=== PATIENT | female | born 1945 | race Caucasian/White ===

== ENCOUNTER 2016-09-03 22:36 | Emergency (ER) | payer MEDICARE, BC ==
[~2016-09-03 22:36] MED LIST: *MAMMOGRAM; /ADVA50050; /ADVA50050 IN; /PANT40TA; ACCUPRIL20 PO; ACCUPRIL40 PO; ACET65TA OR; ACET65TA PO; ADVAIR500 INHALATION; ALBOTERNEB INHALATION; ALBU83IN IN; ALBUTEROL INHALER INH; AMBI10TA; AMBIEN10 PO; AMIT100TA PO; AMIT10TA2 OR; AMIT50TA PO; AMIT50TA2 PO; AMITRIP50 PO; AMITRIP75 PO; AMO500 PO; ASPI1TAB PO; ASPI81TA63 PO; ATACAND16 PO; AZIT250T3 PO; BACTRIMDS PO; CALCCHW12 OR; CAND16TA; CATAPRESS PO; CIPRO500 PO; CLOTR1CR TOP; COLA100C PO; DAPS10TA OR; DILANT PO; DOCU10CA PO; DULO1CAP2 PO; DURAGESIC; EQ S PO; FENT100D25 TD; FENT10PA TD; FENT75PA TD; FERR325T; FERR325T OR; FLAGYL500 PO; FLUC10TA PO; HCTZ25 PO; HYDR25TA6 PO; K-DUR10 PO; KDUR20 PO; KENALOG INJ; KLOR10TA OR; KLORCON20 PO; LASIX20 PO; LASIX40 PO; LEVO500T32 PO; LEVO50TA5 PO; LIDO1PAD TOP; LINE60TAB PO; LISI-538 PO; LISI40TA OR; LISI40TAB PO; LUNE2TAB OR; LYRI100C10 PO; LYRI75CA PO; MAXALT; META28.35 PO; METF500T PO; METF500T4 PO; METH10TA2 PO; MILKSUS OR; MIRA3350 PO; MUCINEX PO; MULTCAP PO; NEUR800T PO; NEURONTIN4 PO; NITRODUR TOPICAL; OMEP20TA PO; OMEP40CA2 PO; OXYC15TA50 PO; OXYC1TAB23 PO; OYST500T58 OR; POTA20TA; PRAV20TA2 PO; PRED10TA2; PRED20TA OR; PREDNISO20 PO; PREMAR1.25 PO; PREVACID15 PO; PREVACID30 PO; PROTONIX40 PO; PROTPAK PO; PROVENTILI PO; PROVIGIL; PULMICORT PO; RANI300T PO; REGL10TA6 PO; ROPI0.5T PO; ROPI1TAB PO; SAVELLA PO; SING10TA31 OR; SKEL-29 PO; SKEL800T5 PO; SKELAXIN8 PO; SYNT25TA PO; TOPR25TA; TUSSSUS5 OR; VICODIN-ES PO; VICODIN10 PO; VIT D 2000 PO; VITA-113 SL; VITA10002 PO; VITA500T OR; VITACHTA PO; VITMTA PO; ZANAFLEX4 PO; ZANT300T PO; ZOFR20TA PO; [UNRECOGNIZED DRUG - CODE]; [UNRECOGNIZED DRUG - CODE] PO; [UNRECOGNIZED DRUG - CODE] PO; [UNRECOGNIZED DRUG - CODE] TOP; [UNRECOGNIZED DRUG - OTHER]; [UNRECOGNIZED DRUG - OTHER] PO; [UNRECOGNIZED DRUG - REMARK]; [UNRECOGNIZED DRUG - SUPPLY]; [UNRECOGNIZED DRUG - SUPPLY] -; [UNRECOGNIZED DRUG - SUPPLY] TOP; [UNRECOGNIZED DRUG - SUPPLY] TOPICAL
[2016-09-04] MEDS ORDERED: cefTRIAXone SOD 1 GM VIAL (J0696) As Ordered ONE (00:03)
[2016-09-04] MEDS ORDERED: HYDROmorphone HCL 1 MG/ML SYRINGE (J1170) As Ordered ONE ×2 (00:03→00:53)
[2016-09-04 00:04] LABS: BASO # 0.1 K/mm3 (0.0-0.2); BASO % 0.9 % (0.0-1.0); EOS # 0.2 K/mm3 (0.0-0.50); LARGE UNSTAINED CELL # 0.1 K/mm3 (0.0-0.4); LARGE UNSTAINED CELL % 1.6 % (0.0-4.0); LYMPH # 1.9 K/mm3 (1.5-4.5); LYMPH % 20.9 % (24.0-44.0); MEAN CORPUSCULAR HEMOGLOBIN 26.3 pg (27.0-33.0); MEAN CORPUSCULAR HGB CONC 32.8 g/dl (32.0-36.5); MEAN CORPUSCULAR VOLUME 80.2 fl (80.0-96.0); MONO # 0.4 K/mm3 (0.0-0.8); MONO % 4.8 % (0.0-5.0); NEUTROPHILS # 5.8 K/mm3 (1.8-7.7); NEUTROPHILS % 68.8 % (36.0-66.0); PLATELET COUNT, AUTOMATED 205 k/mm3 (150-450); RED CELL DISTRIBUTION WIDTH 16.3 % (11.5-14.5); WHITE BLOOD COUNT 8.4 K/mm3 (4.0-10.0)
[2016-09-04 00:26] LABS: ALBUMIN 3.2 GM/DL (3.2-5.2); ALBUMIN/GLOBULIN RATIO 0.76 (1.00-1.93); ALKALINE PHOSPHATASE 101 U/L (45-117); ALT/SGPT 15 U/L (12-78); AMYLASE 53 U/L (25-115); ANION GAP 8 MEQ/L (8-16); AST/SGOT 16 U/L (15-37); BILIRUBIN,DIRECT < 0.1 MG/DL (0.0-0.2); BILIRUBIN,TOTAL 0.3 MG/DL (0.2-1.0); BLOOD UREA NITROGEN 12 MG/DL (7-18); CALCIUM LEVEL 8.6 MG/DL (8.8-10.2); CARBON DIOXIDE LEVEL 27 MEQ/L (21-32); CHLORIDE LEVEL 105 MEQ/L (98-107); GLOMERULAR FILTRATION RATE > 60.0 (>39); GLUCOSE, FASTING 100 MG/DL (83-110); SODIUM LEVEL 140 MEQ/L (136-145); TOTAL PROTEIN 7.4 GM/DL (6.4-8.2)
[2016-09-04] MEDS ORDERED: CIPROFLOXACIN/D5W 400 MG/200 ML BAG (J0744) As Ordered ONE (00:45)
[2016-09-04] MEDS ORDERED: ISOVUE-370 76% 100ML VIAL (Q9967) As Ordered ONE (00:49)
--- NOTE | 2016-09-04 02:20 | REPUSA ---
CLINICAL HISTORY: Abdominal pain. TECHNIQUE: Multiple axial, sagittal and coronal CT images were obtained through the abdomen and pelvi s after administration of intravenous contrast material. COMMENTS: The liver is mildly enlarged without mass or defect. There is no intra or extrahepatic biliary ductal dilatation. The spleen is normal. The gallbladder is surgically absent. The pancreas is of normal co ntour and attenuation characteristics. There is no evidence of adrenal mass. Mild atrophy of the kidneys. Unremarkable ileal conduit. The kidneys are normal in size, shape and co nfiguration. There is no evidence of renal or ureteral mass. No renal or ureteral calculi are identif ied. There is no hydroureter or hydronephrosis. No evidence for appendicitis. There is no bowel wall thickening. No evidence for small or large mani l obstruction. There is no evidence of abdominal ascites or lymphadenopathy. Diffuse thickening of the underdistended bladder. There is no pelvic ascites or lymphadenopathy. Unre markable left lower quadrant colostomy. Moderate large bowel fecal stasis. Images of the lung bases show no evidence of pleural or parenchymal mass. There are no pleural effusi ons. The bony structures are free of lytic or blastic lesions. Multilevel degenerative changes are seen in volving the thoracolumbar spine. Scattered calcifications are seen involving the aorta and major bran ches compatible with atherosclerosis. IMPRESSION: Diffuse thickening of the underdistended bladder. Unremarkable ileal conduit. Mild chronic bilateral renal atrophy. Large bowel fecal stasis. No changes noted since the prior exam on 04/06/2016. Thank you for your kind referral of this patient.
--- NOTE | 2016-09-04 03:36 | EDDOCDS ---
Nurse's Notes [facility] Name: Uzma Miller Age: 71 yrs Sex: Female : 1945 Arrival Date: 09/03/2016 Time: 22:36 Bed 14 Private MD: Nay Vegas., DO Diagnosis: Urinary tract infection, site not specified Presentation: 09/03 22:44 Presenting complaint: Patient states: Abdominal pain and low back pain with hematuria. jo3 Has tyra nephrostomy tubes and a urostomy. Adult Sepsis Screening: The patient does not have new or worsening altered mentation. Patient's respiratory rate is less than 22. Systolic blood pressure is greater than 100. Patient has a qSOFA score of 0- Negative Sepsis Screen. Suicide/Homicide risk assessment- the patient denies having any suicidal and/or homicidal ideations and does not present with any other emotional, behavioral or mental health complaints. Status: Patient is not a client service executive or dependent. Transition of care: patient was not received from another setting of care. 22:44 Acuity: NAREN Level 3 jo3 22:44 Method Of Arrival: Walkin/Carried/Asstd jo3 Triage Assessment: 22:49 General: Appears in no apparent distress, Behavior is appropriate for age, cooperative. jo3 Pain: Pain currently is 7 out of 10 on a pain scale. Neurological: Level of Consciousness is awake, alert, Oriented to person, place, time. Respiratory: Airway is patent Respiratory effort is even, unlabored. Derm: Skin is pink, warm & dry. Historical: - Allergies: Ambien (sleep walk); Clonidine (pass out); Codeine Sulfate (Anaphylaxis); Flu Shot; - Home Meds: 1. amitriptyline 100 mg Oral tab once daily HS 2. aspirin 81 mg Oral tab once daily 3. Cymbalta 30 mg Oral cpDR nightly 4. Lamisil 250 mg oral tab 1 tab once daily 5. lisinopril 20 mg Oral tab 1 tab once daily 6. Lyrica 100 mg Oral 3 times per day 7. metformin 500 mg Oral tab 1 tab 2 times per day 8. methadone 10 mg Oral tab 1 tab three times a day 9. oxycodone 10 mg Oral tab 1 tab every 4 hours 10. pravastatin 20 mg oral tab 1 tab once daily 11. ranitidine HCl 300 mg Oral tab 2 times per day 12. Requip 1 mg Oral tab 1 tab daily 13. Skelaxin 800 mg Oral tab 3 times per day 14. Stool Softener 100 mg oral tab 1 tab once daily as needed 15. Synthroid 50 mcg Oral tab 1 tab once daily 16. Vitamin B-12 1,000 mcg Oral tab daily 17. Women's Daily Multivitamin oral 1 tab daily - PMHx: Asthma; Depression; Hernia; Gastric Reflux; Diverticulitis; Migraines; Fibromyalgia; Diabetes - NIDDM: controlled; bowel obstruction; Degenerative disc disease; Carpal Tunnel Syndrome; Chronic Low Back Pain; neurogenic bowel; neurogenic bladder; - PSHx: Appendectomy; Cholecystectomy; Hysterectomy; Ovarian cysts removed; Colostomy and urostomy; Multiple back surgeries; - Social history: Smoking status: Patient states was never smoker of tobacco. No barriers to communication noted, The patient speaks fluent [place]serr[place], Speaks appropriately for age. - Family history: Not pertinent. - : The pt / caregiver states he / she is not on anticoagulants. Home medication list is obtained from the patient. - Exposure Risk Screening:: None identified. Screenin:38 Infection Control. dd6 09/04 00:09 Screening information is obtained from the patient. Fall risk: No risks identified. tm5 Assistance ADL's: requires no assistance with activities of daily living. Abuse/DV Screen: The patient / caregiver reports he/she is: not in a situation that causes fear, pain or injury. Nutritional screening: No deficits noted. Advance Directives: There is no active DNR order. home support is adequate. Assessment: 00:15 General: Appears in no apparent distress, Behavior is appropriate for age, cooperative. tm5 Pain: Location: back and right lower quadrant Pain currently is 8 out of 10 on a pain scale. Quality of pain is described as burning. Neurological: No deficits noted. Respiratory: No deficits noted. Airway is patent Respiratory effort is even, unlabored, Respiratory pattern is regular, symmetrical, Breath sounds are clear bilaterally. GI: Abdomen is non- distended Bowel sounds present X 4 quads. : pt with Nephrostomy to right lower quad which has light blood tinged urine in the bag, per pt the urine color is "almost" the normal color now Reports. Derm: Skin is pink, warm & dry. normal. 00:57 Reassessment: Patient appears in no apparent distress at this time. Patient states tm5 symptoms have not improved. pt still complains of back spasms & RLQ abdominal pain . 01:27 Reassessment: Patient appears in no apparent distress at this time. Patient states tm5 feeling better. Patient states symptoms have improved. Pain: Location: right lower quadrant Pain currently is 4 out of 10 on a pain scale. Quality of pain is described as burning. 01:41 General: apple juice provided to pt per MD's okay. tm5 02:50 Reassessment: Patient appears in no apparent distress at this time. Patient states tm5 feeling better. Patient states symptoms have improved. 03:33 Reassessment: Patient appears in no apparent distress at this time. Patient states tm5 feeling better. Patient states symptoms have improved. Vital Signs: 09/03 22:37 BP 184 / 76; Pulse 75; Resp 18; Temp 96.5(O); Pulse Ox 100% on R/A; Weight 81.65 kg dd6 (R); Height 5 ft. 3 in. (160.02 cm) (R); 09/04 00:08 BP 136 / 58 (auto/); tm5 00:09 Pulse 56 MON; Resp 18 S; Pulse Ox 97% on R/A; tm5 00:23 BP 135 / 62 (auto/); tm5 00:23 Pulse 56 MON; Pulse Ox 95% ; tm5 00:38 BP 143 / 65 (auto/); tm5 00:38 Pulse 54 MON; Pulse Ox 93% ; tm5 00:53 BP 153 / 67 (auto/); tm5 00:53 Pulse 54 MON; Resp 20 S; Pulse Ox 95% on R/A; tm5 01:08 BP 152 / 68 (auto/); tm5 01:08 Pulse 56 MON; Pulse Ox 96% ; tm5 01:23 BP 162 / 67 (auto/); tm5 01:23 Pulse 54 MON; Resp 18 S; Pulse Ox 95% on R/A; tm5 01:53 BP 136 / 61 (auto/); tm5 01:56 Pulse 62 MON; Pulse Ox 96% ; tm5 02:08 BP 176 / 71 (auto/); tm5 02:08 Pulse 62 MON; Pulse Ox 96% ; tm5 02:23 BP 153 / 68 (auto/); tm5 02:23 Pulse 60 MON; Resp 16 S; Pulse Ox 96% on R/A; Pain 4/10; tm5 02:53 BP 158 / 63 (auto/); tm5 02:53 Pulse 58 MON; Pulse Ox 96% ; tm5 03:08 BP 158 / 68 (auto/); tm5 03:08 Pulse 56 MON; Resp 16 S; Temp 97.8(O); Pulse Ox 94% on R/A; Pain 2/10; tm5 09/03 22:37 Body Mass Index 31.89 (81.65 kg, 160.02 cm) dd6 Vitals: 09/03 22:37 Log In Time: September 03, 2016 at 22:35. dd6 ED Course: 22:37 Patient visited by Nic Swan PCA. dd6 22:37 Nay Vegas. is Private Physician. dd6 22:37 Patient moved to Waiting dd6 22:39 Patient moved to Pre RCE dd6 22:46 Triage Initiated jo3 22:50 Patient visited by Heena Anthony RN. jo3 22:51 Patient moved to 14 jo3 23:13 Basil Colin DO is Attending Physician. cs11 23:13 Patient visited by Basil Colin DO. cs11 09/04 00:02 BLOOD CULTURES Sent. tm5 00:02 Urine Culture Sent. tm5 00:02 Urinalysis Sent. tm5 00:02 Lipase Sent. tm5 00:02 Amylase Sent. tm5 00:02 Liver Profile Sent. tm5 00:02 MED Profile Sent. tm5 00:02 CBC with Diff Sent. tm5 00:02 Lactic Acid (Jain tube on ice) Sent. tm5 00:02 -Blood Culture Sent. tm5 00:04 Lauren Regalado,RN is Primary Nurse. tm5 00:09 The patient / caregiver is instructed regarding the plan of care and ED course. Pulse tm5 ox on. NIBP on. 00:09 Inserted saline lock: 20 gauge in right forearm and blood collected. The patient tm5 tolerated the procedure well. Labs/Blood culture drawn Urine collected. Nephrostomy bag Urine specimen sent to lab. 00:41 [facility] Payment Agreement was scanned into [employer] and attached to record. pm4 00:57 Patient visited by Lauren Regalado,GENNA. tm5 01:27 Patient visited by Lauren Regalado RN. tm5 01:[address] tm5 01:41 Patient visited by Lauren Regalado RN. tm5 01:[address]. tm5 02:27 Patient visited by Lauren Regalado RN. tm5 02:50 Patient visited by Lauren Regalado RN. tm5 02:56 CT ABD & PELVIS: IV Contrast Only Returned. EDMS 03:08 Discontinued lock intact, bleeding controlled, pressure dressing applied, No tm5 redness/swelling at site. No procedures done that require assistance. 03:20 Nay Vegas. is Referral Physician. cs11 03:23 Patient visited by Lauren Regalado RN. tm5 03:33 Patient visited by Lauren Regalado RN. tm5 Administered Medications: 00:14 Drug: Dilaudid - HYDROmorphone 1 mg [hydromorphone 1 mg/mL injection syringe (1 mL)] tm5 Route: IVP; Site: right forearm; 00:54 Follow up: Response: No Adverse Reaction; No significant change. tm5 00:14 Drug: cefTRIAXone 1 grams [ceftriaxone 250 mg solution for injection] Route: IVPB; tm5 Infused Over: 30 mins; Site: right forearm; 00:53 Follow up: IV Status: Completed infusion; IV Intake: 50ml tm5 00:53 Follow up: Response: No Adverse Reaction tm5 00:53 Drug: Ciprofloxacin 400 mg [ciprofloxacin 400 mg/200 mL in 5 % dextrose intravenous tm5 piggyback] Route: IVPB; Rate: 200 mL/hr; Infused Over: 60 mins; Site: right forearm; 02:27 Follow up: IV Status: Completed infusion; IV Intake: 200ml tm5 00:54 Drug: NS 0.9% 1000 ml [sodium chloride 0.9 % intravenous solution] Route: IV; Rate: tm5 bolus; Site: right forearm; 02:27 Follow up: IV Status: Completed infusion; IV Intake: 1000ml tm5 00:59 Drug: Dilaudid - HYDROmorphone 1 mg [hydromorphone 1 mg/mL injection syringe (1 mL)] tm5 Route: IVP; Site: right forearm; 01:28 Follow up: Response: No Adverse Reaction; Pain is decreased tm5 Intake: 00:53 IV: 50.00ml; Total: 50.00ml. tm5 02:27 IV: 1000.00ml; Total: 1050.00ml. tm5 02:27 IV: 200.00ml; Total: 1250.00ml. tm5 Order Results: Lab Order: Lactic Acid (Jain tube on ice); SPEC'M 09/03/16 23:55 Test: LACTIC ACID LEVEL, LACTATE; Value: 1.3; Range: 0.4-2.0; Units: MMOL/L; Status: F Lab Order: CBC with Diff; SPEC'M 09/03/16 23:55 Test: WHITE BLOOD COUNT; Value: 8.4; Range: 4.0-10.0; Units: K/mm3; Status: F Test: RED BLOOD COUNT; Value: 4.16; Range: 4.00-5.40; Units: M/mm3; Status: F Test: HEMOGLOBIN; Value: 11.0; Range: 12.0-16.0; Abnormal: Below low normal; Units: g/dl; Status: F Test: HEMATOCRIT; Value: 33.4; Range: 36.0-47.0; Abnormal: Below low normal; Units: %; Status: F Test: MEAN CORPUSCULAR VOLUME; Value: 80.2; Range: 80.0-96.0; Units: fl; Status: F Test: MEAN CORPUSCULAR HEMOGLOBIN; Value: 26.3; Range: 27.0-33.0; Abnormal: Below low normal; Units: pg; Status: F Test: MEAN CORPUSCULAR HGB CONC; Value: 32.8; Range: 32.0-36.5; Units: g/dl; Status: F Test: RED CELL DISTRIBUTION WIDTH; Value: 16.3; Range: 11.5-14.5; Abnormal: Above high normal; Units: %; Status: F Test: PLATELET COUNT, AUTOMATED; Value: 205; Range: 150-450; Units: k/mm3; Status: F Test: NEUTROPHILS %; Value: 68.8; Range: 36.0-66.0; Abnormal: Above high normal; Units: %; Status: F Test: LYMPH %; Value: 20.9; Range: 24.0-44.0; Abnormal: Below low normal; Units: %; Status: F Test: MONO %; Value: 4.8; Range: 0.0-5.0; Units: %; Status: F Test: EOS %; Value: 3.0; Range: 0.0-3.0; Units: %; Status: F Test: BASO %; Value: 0.9; Range: 0.0-1.0; Units: %; Status: F Test: LARGE UNSTAINED CELL %; Value: 1.6; Range: 0.0-4.0; Units: %; Status: F Test: NEUTROPHILS #; Value: 5.8; Range: 1.8-7.7; Units: K/mm3; Status: F Test: LYMPH #; Value: 1.9; Range: 1.5-4.5; Units: K/mm3; Status: F Test: MONO #; Value: 0.4; Range: 0.0-0.8; Units: K/mm3; Status: F Test: EOS #; Value: 0.2; Range: 0.0-0.50; Units: K/mm3; Status: F Test: BASO #; Value: 0.1; Range: 0.0-0.2; Units: K/mm3; Status: F Test: LARGE UNSTAINED CELL #; Value: 0.1; Range: 0.0-0.4; Units: K/mm3; Status: F Lab Order: MED Profile; SPEC'M 09/03/16 23:55 Test: GLUCOSE, FASTING; Value: 100; Range: 83-110; Units: MG/DL; Status: F Test: BLOOD UREA NITROGEN; Value: 12; Range: 7-18; Units: MG/DL; Status: F Test: CREATININE FOR GFR; Value: 0.90; Range: 0.55-1.02; Units: MG/DL; Status: F Test: GLOMERULAR FILTRATION RATE; Value: > 60.0; Range: >39; Status: F Test: SODIUM LEVEL; Value: 140; Range: 136-145; Units: MEQ/L; Status: F Test: POTASSIUM SERUM; Value: 4.0; Range: 3.5-5.1; Units: MEQ/L; Status: F Test: CHLORIDE LEVEL; Value: 105; Range: 98-107; Units: MEQ/L; Status: F Test: CARBON DIOXIDE LEVEL; Value: 27; Range: 21-32; Units: MEQ/L; Status: F Test: ANION GAP; Value: 8; Range: 8-16; Units: MEQ/L; Status: F Test: CALCIUM LEVEL; Value: 8.6; Range: 8.8-10.2; Abnormal: Below low normal; Units: MG/DL; Status: F Test Note: ; Units are mL/min/1.73 m2 Chronic Kidney Disease Staging per NKF: Stage I & II GFR >=60 Normal to Mildly Decreased Stage III GFR 30-59 Moderately Decreased Stage IV GFR 15-29 Severely Decreased Stage V GFR <15 Very Little GFR Left ESRD GFR <15 on SOFTWARE DEVELOPMENT COORDINATOR Lab Order: Liver Profile; 09/03/16:55 Test: AST/SGOT; Value: 16; Range: 15-37; Units: U/L; Status: F Test: ALT/SGPT; Value: 15; Range: 12-78; Units: U/L; Status: F Test: ALKALINE PHOSPHATASE; Value: 101; Range: 45-117; Units: U/L; Status: F Test: BILIRUBIN,TOTAL; Value: 0.3; Range: 0.2-1.0; Units: MG/DL; Status: F Test: BILIRUBIN,DIRECT; Value: < 0.1; Range: 0.0-0.2; Units: MG/DL; Status: F Test: TOTAL PROTEIN; Value: 7.4; Range: 6.4-8.2; Units: GM/DL; Status: F Test: ALBUMIN; Value: 3.2; Range: 3.2-5.2; Units: GM/DL; Status: F Test: ALBUMIN/GLOBULIN RATIO; Value: 0.76; Range: 1.00-1.93; Abnormal: Below low normal; Status: F Lab Order: Amylase; 09/03/16 23:55 Test: AMYLASE; Value: 53; Range: 25-115; Units: U/L; Status: F Lab Order: Lipase; 09/03/16 23:55 Test: LIPASE; Value: 71; Range: 73-393; Abnormal: Below low normal; Units: U/L; Status: F Lab Order: Urinalysis; 09/03/16 23:55 Test: APPEARANCE, URINE; Value: TURBID; Range: CLEAR; Abnormal: Above high normal; Status: F Test: COLOR, URINE; Value: DEV; Range: YELLOW; Status: F Test: PH,URINE; Value: 5.0; Range: 5.0-9.0; Units: UNITS; Status: F Test: SPECIFIC GRAVITY URINE AUTO; Value: 1.016; Range: 1.002-1.035; Status: F Test: PROTEIN, URINE AUTO; Value: 2+; Range: NEGATIVE; Abnormal: Above high normal; Units: mg/dL; Status: F Test: GLUCOSE, URINE (UA) AUTO; Value: NEGATIVE; Range: NEGATIVE; Units: mg/dL; Status: F Test: KETONE, URINE AUTO; Value: NEGATIVE; Range: NEGATIVE; Units: mg/dL; Status: F Test: UROBILINOGEN, URINE AUTO; Value: 0.2; Range: 0.0-2.0; Units: mg/dL; Status: F Test: BILIRUBIN, URINE AUTO; Value: NEGATIVE; Range: NEGATIVE; Status: F Test: NITRITE, URINE AUTO; Value: POSITIVE; Range: NEGATIVE; Status: F Test: LEUKOCYTE ESTERASE, URINE AUTO; Value: 3+; Range: NEGATIVE; Abnormal: Above high normal; Status: F Test: BLOOD, URINE BLOOD; Value: 3+; Range: NEGATIVE; Abnormal: Above high normal; Status: F Test: WBC, URINE AUTO; Value: TNTC; Range: 0-3; Abnormal: Above high normal; Units: /HPF; Status: F Test: RBC, URINE AUTO; Value: TNTC; Range: 0-3; Abnormal: Above high normal; Units: /HPF; Status: F Test: BACTERIA, URINE AUTO; Value: 3+; Range: NEGATIVE; Abnormal: Above high normal; Status: F Test: SQUAMOUS EPITHELIAL CELL UR AU; Value: 0; Range: 0-6; Units: /HPF; Status: F Test: MUCUS, URINE; Value: SMALL; Range: NEGATIVE; Status: F Test: HYALINE CAST, URINE AUTO; Value: 0; Range: 0-1; Units: /LPF; Status: F Radiology Order: CT ABD & PELVIS: IV Contrast Only Test: CT ABD & PELVIS: IV Contrast Only REASON FOR EXAMINATION: Abdomen Pain; ; CLINICAL HISTORY: Abdominal pain.; TECHNIQUE: Multiple axial, sagittal and coronal CT images were obtained through the abdomen and pelvi; s after administration of intravenous contrast material.; COMMENTS:; The liver is mildly enlarged without mass or defect. There is no intra or extrahepatic biliary ductal; dilatation. The spleen is normal. The gallbladder is surgically absent. The pancreas is of normal co; ntour and attenuation characteristics. There is no evidence of adrenal mass.; Mild atrophy of the kidneys. Unremarkable ileal conduit. The kidneys are normal in size, shape and co; nfiguration. There is no evidence of renal or ureteral mass. No renal or ureteral calculi are identif; ied. There is no hydroureter or hydronephrosis.; No evidence for appendicitis. There is no bowel wall thickening. No evidence for small or large mani; l obstruction. There is no evidence of abdominal ascites or lymphadenopathy.; Diffuse thickening of the underdistended bladder. There is no pelvic ascites or lymphadenopathy. Unre; markable left lower quadrant colostomy. Moderate large bowel fecal stasis.; Images of the lung bases show no evidence of pleural or parenchymal mass. There are no pleural effusi; ons.; The bony structures are free of lytic or blastic lesions. Multilevel degenerative changes are seen in; volving the thoracolumbar spine. Scattered calcifications are seen involving the aorta and major bran; ches compatible with atherosclerosis.; IMPRESSION:; Diffuse thickening of the underdistended bladder.; Unremarkable ileal conduit.; Mild chronic bilateral renal atrophy.; Large bowel fecal stasis.; No changes noted since the prior exam on 04/06/2016.; Thank you for your kind referral of this patient.; ; Outcome: 03:08 Discharge Assessment: Patient awake, alert and oriented x 3. No cognitive and/or tm5 functional deficits noted. Patient verbalized understanding of disposition instructions. patient administered narcotics - yes. Pt provided with safe discharge. The following High Risk Discharge criteria are identified: None. Discharged to home ambulatory, with significant other. Condition: stable Condition: improved. Discharge instructions given to patient, Instructed on discharge instructions, follow up and referral plans. medication usage, Demonstrated understanding of instructions, medications, Pt was receptive of discharge instructions/ teaching. Prescriptions given X 1. CT Study completed. Property :Personal belongings accompany Pt. 03:20 Discharge ordered by Provider. cs11 03:35 Patient left the ED. tm5 Signatures: Dispatcher [employer] EDMS Heena Anthony,RN RN jo3 Nic Swan, DAVID MAINTENANCE MAN dd6 Basil Colin DO DO cs11 Lauren RegaladoRN RN tm5 Mau Garza, Reg Reg pm4 Corrections: (The following items were deleted from the chart) 03:34 03:08 Pulse 56bpm; MonitorResp 16bpm; Spontaneous; Pulse Ox 94% RA; tm5 tm5 MTDD
--- NOTE | 2016-09-04 03:36 | EDDOCDS ---
Physician Documentation [facility] Name: Uzma Miller Age: 71 yrs Sex: Female : 1945 Arrival Date: 09/03/2016 Time: 22:36 Bed 14 Private MD: Nay Vegas., DO Disposition: 09/04/16 03:20 Discharged to Home/Self Care. Impression: Urinary tract infection, site not specified. - Condition is Stable. - Prescriptions for Cipro 500 mg Oral Tablet - take 1 tablet by ORAL route every 12 hours; 10 tablet. - Medication Reconciliation, Local Pharmacy Hours form. - Follow up: Nay Vegas.; When: 1 - 2 days; Reason: Recheck today's complaints. - Problem is an ongoing problem. - Symptoms have improved. Historical: - Allergies: Ambien (sleep walk); Clonidine (pass out); Codeine Sulfate (Anaphylaxis); Flu Shot; - Home Meds: 1. amitriptyline 100 mg Oral tab once daily HS 2. aspirin 81 mg Oral tab once daily 3. Cymbalta 30 mg Oral cpDR nightly 4. Lamisil 250 mg oral tab 1 tab once daily 5. lisinopril 20 mg Oral tab 1 tab once daily 6. Lyrica 100 mg Oral 3 times per day 7. metformin 500 mg Oral tab 1 tab 2 times per day 8. methadone 10 mg Oral tab 1 tab three times a day 9. oxycodone 10 mg Oral tab 1 tab every 4 hours 10. pravastatin 20 mg oral tab 1 tab once daily 11. ranitidine HCl 300 mg Oral tab 2 times per day 12. Requip 1 mg Oral tab 1 tab daily 13. Skelaxin 800 mg Oral tab 3 times per day 14. Stool Softener 100 mg oral tab 1 tab once daily as needed 15. Synthroid 50 mcg Oral tab 1 tab once daily 16. Vitamin B-12 1,000 mcg Oral tab daily 17. Women's Daily Multivitamin oral 1 tab daily - PMHx: Asthma; Depression; Hernia; Gastric Reflux; Diverticulitis; Migraines; Fibromyalgia; Diabetes - NIDDM: controlled; bowel obstruction; Degenerative disc disease; Carpal Tunnel Syndrome; Chronic Low Back Pain; neurogenic bowel; neurogenic bladder; - PSHx: Appendectomy; Cholecystectomy; Hysterectomy; Ovarian cysts removed; Colostomy and urostomy; Multiple back surgeries; - Social history: Smoking status: Patient states was never smoker of tobacco. No barriers to communication noted, The patient speaks fluent [place]ambian, Speaks appropriately for age. - Family history: Not pertinent. - : The pt / caregiver states he / she is not on anticoagulants. Home medication list is obtained from the patient. - Exposure Risk Screening:: None identified. Vital Signs: 09/03 22:37 BP 184 / 76; Pulse 75; Resp 18; Temp 96.5(O); Pulse Ox 100% on R/A; Weight 81.65 kg / dd6 180.01 lbs (R); Height 5 ft. 3 in. (160.02 cm) (R); 09/04 00:08 BP 136 / 58 (auto/); tm5 00:09 Pulse 56 MON; Resp 18 S; Pulse Ox 97% on R/A; tm5 00:23 BP 135 / 62 (auto/); tm5 00:23 Pulse 56 MON; Pulse Ox 95% ; tm5 00:38 BP 143 / 65 (auto/); tm5 00:38 Pulse 54 MON; Pulse Ox 93% ; tm5 00:53 BP 153 / 67 (auto/); tm5 00:53 Pulse 54 MON; Resp 20 S; Pulse Ox 95% on R/A; tm5 01:08 BP 152 / 68 (auto/); tm5 01:08 Pulse 56 MON; Pulse Ox 96% ; tm5 01:23 BP 162 / 67 (auto/); tm5 01:23 Pulse 54 MON; Resp 18 S; Pulse Ox 95% on R/A; tm5 01:53 BP 136 / 61 (auto/); tm5 01:56 Pulse 62 MON; Pulse Ox 96% ; tm5 02:08 BP 176 / 71 (auto/); tm5 02:08 Pulse 62 MON; Pulse Ox 96% ; tm5 02:23 BP 153 / 68 (auto/); tm5 02:23 Pulse 60 MON; Resp 16 S; Pulse Ox 96% on R/A; Pain 4/10; tm5 02:53 BP 158 / 63 (auto/); tm5 02:53 Pulse 58 MON; Pulse Ox 96% ; tm5 03:08 BP 158 / 68 (auto/); tm5 03:08 Pulse 56 MON; Resp 16 S; Temp 97.8(O); Pulse Ox 94% on R/A; Pain 2/10; tm5 09/03 22:37 Body Mass Index 31.89 (81.65 kg, 160.02 cm) dd6 MDM: 09/03 23:28 IV Saline Lock ordered. cs11 23:28 -Blood Culture (Adults Only), peripheral from different site, or from device/port/PICC cs11 etc. if present ordered. 23:28 Dilaudid - HYDROmorphone 1 mg IVP once ordered. cs11 23:28 cefTRIAXone 1 grams IVPB once over 30 mins; dilute in 50mL of NS or D5W ordered. cs11 23:29 -Blood Culture (Adults Only), peripheral from different site, or from device/port/PICC tmm1 etc. if present complete. 23:29 Lactic Acid (Jain tube on ice) Ordered. EDMS 23:29 CBC with Diff Ordered. EDMS 23:29 MED Profile Ordered. EDMS 23:29 Liver Profile Ordered. EDMS 23:29 Amylase Ordered. EDMS 23:29 Lipase Ordered. EDMS 23:29 Urinalysis Ordered. EDMS 23:29 -Blood Culture Ordered. EDMS 23:30 Urine Culture Ordered. EDMS 23:31 BLOOD CULTURES Ordered. EDMS 09/04 00:21 Financial registration complete. pm4 00:41 CBC with Diff Reviewed. cs11 00:41 MED Profile Reviewed. cs11 00:41 Liver Profile Reviewed. cs11 00:41 Lipase Reviewed. cs11 00:41 Urinalysis Reviewed. cs11 00:41 Lactic Acid (Jain tube on ice) Reviewed. cs11 00:41 Amylase Reviewed. cs11 00:41 [facility] Payment Agreement was scanned into [employer] and attached to record. pm4 00:42 Ciprofloxacin 400 mg IVPB at 200 mL/hr once over 60 mins ordered. cs11 00:43 NS 0.9% 1000 ml IV at bolus once ordered. cs11 00:43 CT ABD & PELVIS: IV Contrast Only Ordered. EDMS 00:54 Dilaudid - HYDROmorphone 1 mg IVP once ordered. tm5 03:17 CT ABD & PELVIS: IV Contrast Only Reviewed. cs11 Administered Medications: 00:14 Drug: Dilaudid - HYDROmorphone 1 mg [hydromorphone 1 mg/mL injection syringe (1 mL)] tm5 Route: IVP; Site: right forearm; 00:54 Follow up: Response: No Adverse Reaction; No significant change. tm5 00:14 Drug: cefTRIAXone 1 grams [ceftriaxone 250 mg solution for injection] Route: IVPB; tm5 Infused Over: 30 mins; Site: right forearm; 00:53 Follow up: IV Status: Completed infusion; IV Intake: 50ml tm5 00:53 Follow up: Response: No Adverse Reaction tm5 00:53 Drug: Ciprofloxacin 400 mg [ciprofloxacin 400 mg/200 mL in 5 % dextrose intravenous tm5 piggyback] Route: IVPB; Rate: 200 mL/hr; Infused Over: 60 mins; Site: right forearm; 02:27 Follow up: IV Status: Completed infusion; IV Intake: 200ml tm5 00:54 Drug: NS 0.9% 1000 ml [sodium chloride 0.9 % intravenous solution] Route: IV; Rate: tm5 bolus; Site: right forearm; 02:27 Follow up: IV Status: Completed infusion; IV Intake: 1000ml tm5 00:59 Drug: Dilaudid - HYDROmorphone 1 mg [hydromorphone 1 mg/mL injection syringe (1 mL)] tm5 Route: IVP; Site: right forearm; 01:28 Follow up: Response: No Adverse Reaction; Pain is decreased tm5 Signatures: Dispatcher [employer] EDHeena EstradaRN RN papito3 Basil Colin, DO DO cs11 McLear, Virgie, LOCKS INSPECTOR LOCKS INSPECTOR tmm1 Lauren Regalado RN RN tm5 Mau Garza, Reg Reg pm4 The chart was reviewed and I authenticate all verbal orders and agree with the evaluation and treatment provided.Attachments: 00:41 [facility] Payment Agreement pm4 MTDD
--- NOTE | 2016-09-06 04:36 | EDDOCDS ---
Physician Documentation [facility] Name: Uzma Miller Age: 71 yrs Sex: Female : 1945 Arrival Date: 09/03/2016 Time: 22:36 Bed 14 Private MD: Nay Vegas., DO Disposition: 09/04/16 03:20 Discharged to Home/Self Care. Impression: Urinary tract infection, site not specified. - Condition is Stable. - Prescriptions for Cipro 500 mg Oral Tablet - take 1 tablet by ORAL route every 12 hours; 10 tablet. - Medication Reconciliation, Local Pharmacy Hours form. - Follow up: Nay Vegas.; When: 1 - 2 days; Reason: Recheck today's complaints. - Problem is an ongoing problem. - Symptoms have improved. Historical: - Allergies: Ambien (sleep walk); Clonidine (pass out); Codeine Sulfate (Anaphylaxis); Flu Shot; - Home Meds: 1. amitriptyline 100 mg Oral tab once daily HS 2. aspirin 81 mg Oral tab once daily 3. Cymbalta 30 mg Oral cpDR nightly 4. Lamisil 250 mg oral tab 1 tab once daily 5. lisinopril 20 mg Oral tab 1 tab once daily 6. Lyrica 100 mg Oral 3 times per day 7. metformin 500 mg Oral tab 1 tab 2 times per day 8. methadone 10 mg Oral tab 1 tab three times a day 9. oxycodone 10 mg Oral tab 1 tab every 4 hours 10. pravastatin 20 mg oral tab 1 tab once daily 11. ranitidine HCl 300 mg Oral tab 2 times per day 12. Requip 1 mg Oral tab 1 tab daily 13. Skelaxin 800 mg Oral tab 3 times per day 14. Stool Softener 100 mg oral tab 1 tab once daily as needed 15. Synthroid 50 mcg Oral tab 1 tab once daily 16. Vitamin B-12 1,000 mcg Oral tab daily 17. Women's Daily Multivitamin oral 1 tab daily - PMHx: Asthma; Depression; Hernia; Gastric Reflux; Diverticulitis; Migraines; Fibromyalgia; Diabetes - NIDDM: controlled; bowel obstruction; Degenerative disc disease; Carpal Tunnel Syndrome; Chronic Low Back Pain; neurogenic bowel; neurogenic bladder; - PSHx: Appendectomy; Cholecystectomy; Hysterectomy; Ovarian cysts removed; Colostomy and urostomy; Multiple back surgeries; - Social history: Smoking status: Patient states was never smoker of tobacco. No barriers to communication noted, The patient speaks fluent [place] Island[place], Speaks appropriately for age. - Family history: Not pertinent. - : The pt / caregiver states he / she is not on anticoagulants. Home medication list is obtained from the patient. - Exposure Risk Screening:: None identified. Vital Signs: 09/03 22:37 BP 184 / 76; Pulse 75; Resp 18; Temp 96.5(O); Pulse Ox 100% on R/A; Weight 81.65 kg / dd6 180.01 lbs (R); Height 5 ft. 3 in. (160.02 cm) (R); 09/04 00:08 BP 136 / 58 (auto/); tm5 00:09 Pulse 56 MON; Resp 18 S; Pulse Ox 97% on R/A; tm5 00:23 BP 135 / 62 (auto/); tm5 00:23 Pulse 56 MON; Pulse Ox 95% ; tm5 00:38 BP 143 / 65 (auto/); tm5 00:38 Pulse 54 MON; Pulse Ox 93% ; tm5 00:53 BP 153 / 67 (auto/); tm5 00:53 Pulse 54 MON; Resp 20 S; Pulse Ox 95% on R/A; tm5 01:08 BP 152 / 68 (auto/); tm5 01:08 Pulse 56 MON; Pulse Ox 96% ; tm5 01:23 BP 162 / 67 (auto/); tm5 01:23 Pulse 54 MON; Resp 18 S; Pulse Ox 95% on R/A; tm5 01:53 BP 136 / 61 (auto/); tm5 01:56 Pulse 62 MON; Pulse Ox 96% ; tm5 02:08 BP 176 / 71 (auto/); tm5 02:08 Pulse 62 MON; Pulse Ox 96% ; tm5 02:23 BP 153 / 68 (auto/); tm5 02:23 Pulse 60 MON; Resp 16 S; Pulse Ox 96% on R/A; Pain 4/10; tm5 02:53 BP 158 / 63 (auto/); tm5 02:53 Pulse 58 MON; Pulse Ox 96% ; tm5 03:08 BP 158 / 68 (auto/); tm5 03:08 Pulse 56 MON; Resp 16 S; Temp 97.8(O); Pulse Ox 94% on R/A; Pain 2/10; tm5 09/03 22:37 Body Mass Index 31.89 (81.65 kg, 160.02 cm) dd6 MDM: 09/03 23:28 IV Saline Lock ordered. cs11 23:28 -Blood Culture (Adults Only), peripheral from different site, or from device/port/PICC cs11 etc. if present ordered. 23:28 Dilaudid - HYDROmorphone 1 mg IVP once ordered. cs11 23:28 cefTRIAXone 1 grams IVPB once over 30 mins; dilute in 50mL of NS or D5W ordered. cs11 23:29 -Blood Culture (Adults Only), peripheral from different site, or from device/port/PICC tmm1 etc. if present complete. 23:29 Lactic Acid (Jain tube on ice) Ordered. EDMS 23:29 CBC with Diff Ordered. EDMS 23:29 MED Profile Ordered. EDMS 23:29 Liver Profile Ordered. EDMS 23:29 Amylase Ordered. EDMS 23:29 Lipase Ordered. EDMS 23:29 Urinalysis Ordered. EDMS 23:29 -Blood Culture Ordered. EDMS 23:30 Urine Culture Ordered. EDMS 23:31 BLOOD CULTURES Ordered. EDMS 09/04 00:21 Financial registration complete. pm4 00:41 CBC with Diff Reviewed. cs11 00:41 MED Profile Reviewed. cs11 00:41 Liver Profile Reviewed. cs11 00:41 Lipase Reviewed. cs11 00:41 Urinalysis Reviewed. cs11 00:41 Lactic Acid (Jain tube on ice) Reviewed. cs11 00:41 Amylase Reviewed. cs11 00:41 [facility] [place] Agreement was scanned into [employer] and attached to record. pm4 00:42 Ciprofloxacin 400 mg IVPB at 200 mL/hr once over 60 mins ordered. cs11 00:43 NS 0.9% 1000 ml IV at bolus once ordered. cs11 00:43 CT ABD & PELVIS: IV Contrast Only Ordered. EDMS 00:54 Dilaudid - HYDROmorphone 1 mg IVP once ordered. tm5 03:17 CT ABD & PELVIS: IV Contrast Only Reviewed. cs11 07:44 T-Sheet-- Draft Copy was scanned into [employer] and attached to record. seh 11:57 Radiology Report was scanned into [employer] and attached to record. gb Administered Medications: 00:14 Drug: Dilaudid - HYDROmorphone 1 mg [hydromorphone 1 mg/mL injection syringe (1 mL)] tm5 Route: IVP; Site: right forearm; 00:54 Follow up: Response: No Adverse Reaction; No significant change. tm5 00:14 Drug: cefTRIAXone 1 grams [ceftriaxone 250 mg solution for injection] Route: IVPB; tm5 Infused Over: 30 mins; Site: right forearm; 00:53 Follow up: IV Status: Completed infusion; IV Intake: 50ml tm5 00:53 Follow up: Response: No Adverse Reaction tm5 00:53 Drug: Ciprofloxacin 400 mg [ciprofloxacin 400 mg/200 mL in 5 % dextrose intravenous tm5 piggyback] Route: IVPB; Rate: 200 mL/hr; Infused Over: 60 mins; Site: right forearm; 02:27 Follow up: IV Status: Completed infusion; IV Intake: 200ml tm5 00:54 Drug: NS 0.9% 1000 ml [sodium chloride 0.9 % intravenous solution] Route: IV; Rate: tm5 bolus; Site: right forearm; 02:27 Follow up: IV Status: Completed infusion; IV Intake: 1000ml tm5 00:59 Drug: Dilaudid - HYDROmorphone 1 mg [hydromorphone 1 mg/mL injection syringe (1 mL)] tm5 Route: IVP; Site: right forearm; 01:28 Follow up: Response: No Adverse Reaction; Pain is decreased tm5 Signatures: Dispatcher [employer] EDCaroline Cruz, Reg Reg gb Heena Anthony RN RN papito3 Basil Colin DO DO cs11 McLear, Virgie, BASTING MACHINE OPERATOR BASTING MACHINE OPERATOR tmm1 Nathaly Mckeon Tonya, RN RN tm5 Mau Garza, Reg Reg pm4 The chart was reviewed and I authenticate all verbal orders and agree with the evaluation and treatment provided.Attachments: 00:41 [facility] [place] Agreement pm4 07:44 T-Sheet[facility] Complete MTDD
--- NOTE | 2016-09-06 04:36 | EDDOCDS ---
Physician Documentation [facility] Name: Uzma Miller Age: 71 yrs Sex: Female : 1945 Arrival Date: 09/03/2016 Time: 22:36 Bed 14 Private MD: Nay Vegas., DO Disposition: 09/04/16 03:20 Discharged to Home/Self Care. Impression: Urinary tract infection, site not specified. - Condition is Stable. - Prescriptions for Cipro 500 mg Oral Tablet - take 1 tablet by ORAL route every 12 hours; 10 tablet. - Medication Reconciliation, Local Pharmacy Hours form. - Follow up: Nay Vegas.; When: 1 - 2 days; Reason: Recheck today's complaints. - Problem is an ongoing problem. - Symptoms have improved. Historical: - Allergies: Ambien (sleep walk); Clonidine (pass out); Codeine Sulfate (Anaphylaxis); Flu Shot; - Home Meds: 1. amitriptyline 100 mg Oral tab once daily HS 2. aspirin 81 mg Oral tab once daily 3. Cymbalta 30 mg Oral cpDR nightly 4. Lamisil 250 mg oral tab 1 tab once daily 5. lisinopril 20 mg Oral tab 1 tab once daily 6. Lyrica 100 mg Oral 3 times per day 7. metformin 500 mg Oral tab 1 tab 2 times per day 8. methadone 10 mg Oral tab 1 tab three times a day 9. oxycodone 10 mg Oral tab 1 tab every 4 hours 10. pravastatin 20 mg oral tab 1 tab once daily 11. ranitidine HCl 300 mg Oral tab 2 times per day 12. Requip 1 mg Oral tab 1 tab daily 13. Skelaxin 800 mg Oral tab 3 times per day 14. Stool Softener 100 mg oral tab 1 tab once daily as needed 15. Synthroid 50 mcg Oral tab 1 tab once daily 16. Vitamin B-12 1,000 mcg Oral tab daily 17. Women's Daily Multivitamin oral 1 tab daily - PMHx: Asthma; Depression; Hernia; Gastric Reflux; Diverticulitis; Migraines; Fibromyalgia; Diabetes - NIDDM: controlled; bowel obstruction; Degenerative disc disease; Carpal Tunnel Syndrome; Chronic Low Back Pain; neurogenic bowel; neurogenic bladder; - PSHx: Appendectomy; Cholecystectomy; Hysterectomy; Ovarian cysts removed; Colostomy and urostomy; Multiple back surgeries; - Social history: Smoking status: Patient states was never smoker of tobacco. No barriers to communication noted, The patient speaks fluent [place]uvian, Speaks appropriately for age. - Family history: Not pertinent. - : The pt / caregiver states he / she is not on anticoagulants. Home medication list is obtained from the patient. - Exposure Risk Screening:: None identified. Vital Signs: 09/03 22:37 BP 184 / 76; Pulse 75; Resp 18; Temp 96.5(O); Pulse Ox 100% on R/A; Weight 81.65 kg / dd6 180.01 lbs (R); Height 5 ft. 3 in. (160.02 cm) (R); 09/04 00:08 BP 136 / 58 (auto/); tm5 00:09 Pulse 56 MON; Resp 18 S; Pulse Ox 97% on R/A; tm5 00:23 BP 135 / 62 (auto/); tm5 00:23 Pulse 56 MON; Pulse Ox 95% ; tm5 00:38 BP 143 / 65 (auto/); tm5 00:38 Pulse 54 MON; Pulse Ox 93% ; tm5 00:53 BP 153 / 67 (auto/); tm5 00:53 Pulse 54 MON; Resp 20 S; Pulse Ox 95% on R/A; tm5 01:08 BP 152 / 68 (auto/); tm5 01:08 Pulse 56 MON; Pulse Ox 96% ; tm5 01:23 BP 162 / 67 (auto/); tm5 01:23 Pulse 54 MON; Resp 18 S; Pulse Ox 95% on R/A; tm5 01:53 BP 136 / 61 (auto/); tm5 01:56 Pulse 62 MON; Pulse Ox 96% ; tm5 02:08 BP 176 / 71 (auto/); tm5 02:08 Pulse 62 MON; Pulse Ox 96% ; tm5 02:23 BP 153 / 68 (auto/); tm5 02:23 Pulse 60 MON; Resp 16 S; Pulse Ox 96% on R/A; Pain 4/10; tm5 02:53 BP 158 / 63 (auto/); tm5 02:53 Pulse 58 MON; Pulse Ox 96% ; tm5 03:08 BP 158 / 68 (auto/); tm5 03:08 Pulse 56 MON; Resp 16 S; Temp 97.8(O); Pulse Ox 94% on R/A; Pain 2/10; tm5 09/03 22:37 Body Mass Index 31.89 (81.65 kg, 160.02 cm) dd6 MDM: 09/03 23:28 IV Saline Lock ordered. cs11 23:28 -Blood Culture (Adults Only), peripheral from different site, or from device/port/PICC cs11 etc. if present ordered. 23:28 Dilaudid - HYDROmorphone 1 mg IVP once ordered. cs11 23:28 cefTRIAXone 1 grams IVPB once over 30 mins; dilute in 50mL of NS or D5W ordered. cs11 23:29 -Blood Culture (Adults Only), peripheral from different site, or from device/port/PICC tmm1 etc. if present complete. 23:29 Lactic Acid (Jain tube on ice) Ordered. EDMS 23:29 CBC with Diff Ordered. EDMS 23:29 MED Profile Ordered. EDMS 23:29 Liver Profile Ordered. EDMS 23:29 Amylase Ordered. EDMS 23:29 Lipase Ordered. EDMS 23:29 Urinalysis Ordered. EDMS 23:29 -Blood Culture Ordered. EDMS 23:30 Urine Culture Ordered. EDMS 23:31 BLOOD CULTURES Ordered. EDMS 09/04 00:21 Financial registration complete. pm4 00:41 CBC with Diff Reviewed. cs11 00:41 MED Profile Reviewed. cs11 00:41 Liver Profile Reviewed. cs11 00:41 Lipase Reviewed. cs11 00:41 Urinalysis Reviewed. cs11 00:41 Lactic Acid (Jain tube on ice) Reviewed. cs11 00:41 Amylase Reviewed. cs11 00:41 [facility] [place] Payment Agreement was scanned into [employer] and attached to record. pm4 00:42 Ciprofloxacin 400 mg IVPB at 200 mL/hr once over 60 mins ordered. cs11 00:43 NS 0.9% 1000 ml IV at bolus once ordered. cs11 00:43 CT ABD & PELVIS: IV Contrast Only Ordered. EDMS 00:54 Dilaudid - HYDROmorphone 1 mg IVP once ordered. tm5 03:17 CT ABD & PELVIS: IV Contrast Only Reviewed. cs11 07:44 T-Sheet-- Draft Copy was scanned into [employer] and attached to record. seh 11:57 Radiology Report was scanned into [employer] and attached to record. gb Administered Medications: 00:14 Drug: Dilaudid - HYDROmorphone 1 mg [hydromorphone 1 mg/mL injection syringe (1 mL)] tm5 Route: IVP; Site: right forearm; 00:54 Follow up: Response: No Adverse Reaction; No significant change. tm5 00:14 Drug: cefTRIAXone 1 grams [ceftriaxone 250 mg solution for injection] Route: IVPB; tm5 Infused Over: 30 mins; Site: right forearm; 00:53 Follow up: IV Status: Completed infusion; IV Intake: 50ml tm5 00:53 Follow up: Response: No Adverse Reaction tm5 00:53 Drug: Ciprofloxacin 400 mg [ciprofloxacin 400 mg/200 mL in 5 % dextrose intravenous tm5 piggyback] Route: IVPB; Rate: 200 mL/hr; Infused Over: 60 mins; Site: right forearm; 02:27 Follow up: IV Status: Completed infusion; IV Intake: 200ml tm5 00:54 Drug: NS 0.9% 1000 ml [sodium chloride 0.9 % intravenous solution] Route: IV; Rate: tm5 bolus; Site: right forearm; 02:27 Follow up: IV Status: Completed infusion; IV Intake: 1000ml tm5 00:59 Drug: Dilaudid - HYDROmorphone 1 mg [hydromorphone 1 mg/mL injection syringe (1 mL)] tm5 Route: IVP; Site: right forearm; 01:28 Follow up: Response: No Adverse Reaction; Pain is decreased tm5 Signatures: Dispatcher [employer] EDCaroline Cruz, Reg Reg gb Heena Anthony RN RN papito3 Basil Colin DO DO cs11 McLear, Virgie, PRESALES CONSULTANT PRESALES CONSULTANT tmm1 Nathaly Mckeon Tonya, RN RN tm5 Mau Garza, Reg Reg pm4 The chart was reviewed and I authenticate all verbal orders and agree with the evaluation and treatment provided.Attachments: 00:41 [facility] [place] Payment Agreement pm4 07:44 T-Sheet-- Draft Copy [facility] Chart Complete MTDD
--- NOTE | 2016-09-06 04:36 | EDDOCDS ---
Nurse's Notes [facility] Name: Uzma Miller Age: 71 yrs Sex: Female : 1945 Arrival Date: 09/03/2016 Time: 22:36 Bed 14 Private MD: Nay Vegas., DO Diagnosis: Urinary tract infection, site not specified Presentation: 09/03 22:44 Presenting complaint: Patient states: Abdominal pain and low back pain with hematuria. jo3 Has tyra nephrostomy tubes and a urostomy. Adult Sepsis Screening: The patient does not have new or worsening altered mentation. Patient's respiratory rate is less than 22. Systolic blood pressure is greater than 100. Patient has a qSOFA score of 0- Negative Sepsis Screen. Suicide/Homicide risk assessment- the patient denies having any suicidal and/or homicidal ideations and does not present with any other emotional, behavioral or mental health complaints. Status: Patient is not a business services coordinator or dependent. Transition of care: patient was not received from another setting of care. 22:44 Acuity: NAREN Level 3 jo3 22:44 Method Of Arrival: Walkin/Carried/Asstd jo3 Triage Assessment: 22:49 General: Appears in no apparent distress, Behavior is appropriate for age, cooperative. jo3 Pain: Pain currently is 7 out of 10 on a pain scale. Neurological: Level of Consciousness is awake, alert, Oriented to person, place, time. Respiratory: Airway is patent Respiratory effort is even, unlabored. Derm: Skin is pink, warm & dry. Historical: - Allergies: Ambien (sleep walk); Clonidine (pass out); Codeine Sulfate (Anaphylaxis); Flu Shot; - Home Meds: 1. amitriptyline 100 mg Oral tab once daily HS 2. aspirin 81 mg Oral tab once daily 3. Cymbalta 30 mg Oral cpDR nightly 4. Lamisil 250 mg oral tab 1 tab once daily 5. lisinopril 20 mg Oral tab 1 tab once daily 6. Lyrica 100 mg Oral 3 times per day 7. metformin 500 mg Oral tab 1 tab 2 times per day 8. methadone 10 mg Oral tab 1 tab three times a day 9. oxycodone 10 mg Oral tab 1 tab every 4 hours 10. pravastatin 20 mg oral tab 1 tab once daily 11. ranitidine HCl 300 mg Oral tab 2 times per day 12. Requip 1 mg Oral tab 1 tab daily 13. Skelaxin 800 mg Oral tab 3 times per day 14. Stool Softener 100 mg oral tab 1 tab once daily as needed 15. Synthroid 50 mcg Oral tab 1 tab once daily 16. Vitamin B-12 1,000 mcg Oral tab daily 17. Women's Daily Multivitamin oral 1 tab daily - PMHx: Asthma; Depression; Hernia; Gastric Reflux; Diverticulitis; Migraines; Fibromyalgia; Diabetes - NIDDM: controlled; bowel obstruction; Degenerative disc disease; Carpal Tunnel Syndrome; Chronic Low Back Pain; neurogenic bowel; neurogenic bladder; - PSHx: Appendectomy; Cholecystectomy; Hysterectomy; Ovarian cysts removed; Colostomy and urostomy; Multiple back surgeries; - Social history: Smoking status: Patient states was never smoker of tobacco. No barriers to communication noted, The patient speaks fluent Estonian, Speaks appropriately for age. - Family history: Not pertinent. - : The pt / caregiver states he / she is not on anticoagulants. Home medication list is obtained from the patient. - Exposure Risk Screening:: None identified. Screenin:38 Infection Control. dd6 09/04 00:09 Screening information is obtained from the patient. Fall risk: No risks identified. tm5 Assistance ADL's: requires no assistance with activities of daily living. Abuse/DV Screen: The patient / caregiver reports he/she is: not in a situation that causes fear, pain or injury. Nutritional screening: No deficits noted. Advance Directives: There is no active DNR order. home support is adequate. Assessment: 00:15 General: Appears in no apparent distress, Behavior is appropriate for age, cooperative. tm5 Pain: Location: back and right lower quadrant Pain currently is 8 out of 10 on a pain scale. Quality of pain is described as burning. Neurological: No deficits noted. Respiratory: No deficits noted. Airway is patent Respiratory effort is even, unlabored, Respiratory pattern is regular, symmetrical, Breath sounds are clear bilaterally. GI: Abdomen is non- distended Bowel sounds present X 4 quads. : pt with Nephrostomy to right lower quad which has light blood tinged urine in the bag, per pt the urine color is "almost" the normal color now Reports. Derm: Skin is pink, warm & dry. normal. 00:57 Reassessment: Patient appears in no apparent distress at this time. Patient states tm5 symptoms have not improved. pt still complains of back spasms & RLQ abdominal pain . 01:27 Reassessment: Patient appears in no apparent distress at this time. Patient states tm5 feeling better. Patient states symptoms have improved. Pain: Location: right lower quadrant Pain currently is 4 out of 10 on a pain scale. Quality of pain is described as burning. 01:41 General: apple juice provided to pt per MD's okay. tm5 02:50 Reassessment: Patient appears in no apparent distress at this time. Patient states tm5 feeling better. Patient states symptoms have improved. 03:33 Reassessment: Patient appears in no apparent distress at this time. Patient states tm5 feeling better. Patient states symptoms have improved. Vital Signs: 09/03 22:37 BP 184 / 76; Pulse 75; Resp 18; Temp 96.5(O); Pulse Ox 100% on R/A; Weight 81.65 kg dd6 (R); Height 5 ft. 3 in. (160.02 cm) (R); 09/04 00:08 BP 136 / 58 (auto/); tm5 00:09 Pulse 56 MON; Resp 18 S; Pulse Ox 97% on R/A; tm5 00:23 BP 135 / 62 (auto/); tm5 00:23 Pulse 56 MON; Pulse Ox 95% ; tm5 00:38 BP 143 / 65 (auto/); tm5 00:38 Pulse 54 MON; Pulse Ox 93% ; tm5 00:53 BP 153 / 67 (auto/); tm5 00:53 Pulse 54 MON; Resp 20 S; Pulse Ox 95% on R/A; tm5 01:08 BP 152 / 68 (auto/); tm5 01:08 Pulse 56 MON; Pulse Ox 96% ; tm5 01:23 BP 162 / 67 (auto/); tm5 01:23 Pulse 54 MON; Resp 18 S; Pulse Ox 95% on R/A; tm5 01:53 BP 136 / 61 (auto/); tm5 01:56 Pulse 62 MON; Pulse Ox 96% ; tm5 02:08 BP 176 / 71 (auto/); tm5 02:08 Pulse 62 MON; Pulse Ox 96% ; tm5 02:23 BP 153 / 68 (auto/); tm5 02:23 Pulse 60 MON; Resp 16 S; Pulse Ox 96% on R/A; Pain 4/10; tm5 02:53 BP 158 / 63 (auto/); tm5 02:53 Pulse 58 MON; Pulse Ox 96% ; tm5 03:08 BP 158 / 68 (auto/); tm5 03:08 Pulse 56 MON; Resp 16 S; Temp 97.8(O); Pulse Ox 94% on R/A; Pain 2/10; tm5 09/03 22:37 Body Mass Index 31.89 (81.65 kg, 160.02 cm) dd6 Vitals: 09/03 22:37 Log In Time: September 03, 2016 at 22:35. dd6 ED Course: 22:37 Patient visited by Nic Swan PCA. dd6 22:37 Nay Vegas. is Private Physician. dd6 22:37 Patient moved to Waiting dd6 22:39 Patient moved to Pre RCE dd6 22:46 Triage Initiated jo3 22:50 Patient visited by Heena Anthony RN. jo3 22:51 Patient moved to 14 jo3 23:13 Basil Colin DO is Attending Physician. cs11 23:13 Patient visited by Basil Colin DO. cs11 09/04 00:02 BLOOD CULTURES Sent. tm5 00:02 Urine Culture Sent. tm5 00:02 Urinalysis Sent. tm5 00:02 Lipase Sent. tm5 00:02 Amylase Sent. tm5 00:02 Liver Profile Sent. tm5 00:02 MED Profile Sent. tm5 00:02 CBC with Diff Sent. tm5 00:02 Lactic Acid (Jain tube on ice) Sent. tm5 00:02 -Blood Culture Sent. tm5 00:04 Lauren Regalado,RN is Primary Nurse. tm5 00:09 The patient / caregiver is instructed regarding the plan of care and ED course. Pulse tm5 ox on. NIBP on. 00:09 Inserted saline lock: 20 gauge in right forearm and blood collected. The patient tm5 tolerated the procedure well. Labs/Blood culture drawn Urine collected. Nephrostomy bag Urine specimen sent to lab. 00:41 [facility] Payment Agreement was scanned into [employer] and attached to record. pm4 00:57 Patient visited by Lauren Regalado,GENNA. tm5 01:27 Patient visited by Lauren Regalado RN. tm5 01:[address] tm5 01:41 Patient visited by Lauren Regalado RN. tm5 01:[address]. tm5 02:27 Patient visited by Lauren Regalado RN. tm5 02:50 Patient visited by Lauren Regalado RN. tm5 02:56 CT ABD & PELVIS: IV Contrast Only Returned. EDMS 03:08 Discontinued lock intact, bleeding controlled, pressure dressing applied, No tm5 redness/swelling at site. No procedures done that require assistance. 03:20 Nay Vegas. is Referral Physician. cs11 03:23 Patient visited by Lauren Regalado RN. tm5 03:33 Patient visited by Lauren Regalado RN. tm5 07:44 T-Sheet-- Draft Copy was scanned into [employer] and attached to record. [facility] 11:57 Radiology Report was scanned into [employer] and attached to record. gb Administered Medications: 00:14 Drug: Dilaudid - HYDROmorphone 1 mg [hydromorphone 1 mg/mL injection syringe (1 mL)] tm5 Route: IVP; Site: right forearm; 00:54 Follow up: Response: No Adverse Reaction; No significant change. tm5 00:14 Drug: cefTRIAXone 1 grams [ceftriaxone 250 mg solution for injection] Route: IVPB; tm5 Infused Over: 30 mins; Site: right forearm; 00:53 Follow up: IV Status: Completed infusion; IV Intake: 50ml tm5 00:53 Follow up: Response: No Adverse Reaction tm5 00:53 Drug: Ciprofloxacin 400 mg [ciprofloxacin 400 mg/200 mL in 5 % dextrose intravenous tm5 piggyback] Route: IVPB; Rate: 200 mL/hr; Infused Over: 60 mins; Site: right forearm; 02:27 Follow up: IV Status: Completed infusion; IV Intake: 200ml tm5 00:54 Drug: NS 0.9% 1000 ml [sodium chloride 0.9 % intravenous solution] Route: IV; Rate: tm5 bolus; Site: right forearm; 02:27 Follow up: IV Status: Completed infusion; IV Intake: 1000ml tm5 00:59 Drug: Dilaudid - HYDROmorphone 1 mg [hydromorphone 1 mg/mL injection syringe (1 mL)] tm5 Route: IVP; Site: right forearm; : Follow up: Response: No Adverse Reaction; Pain is decreased tm5 Intake: 00:53 IV: 50.00ml; Total: 50.00ml. tm5 02:27 IV: 1000.00ml; Total: 1050.00ml. tm5 02:27 IV: 200.00ml; Total: 1250.00ml. tm5 Order Results: Lab Order: -Blood Culture; SPEC'M 09/03/16 23:55 Test: BLOOD CULTURE; Value: No growth after 24 hours . All specimens observed; Status: F Test: BLOOD CULTURE; Value: for 5 days. Results final at that time.; Status: F Test: BLOOD CULTURE; Value: No Growth after 48 hours. All Specimens observed; Status: F Test: BLOOD CULTURE; Value: for 7 days. Results final at that time.; Status: F Lab Order: Lactic Acid (Jain tube on ice); SPEC'M 09/03/16 23:55 Test: LACTIC ACID LEVEL, LACTATE; Value: 1.3; Range: 0.4-2.0; Units: MMOL/L; Status: F Lab Order: CBC with Diff; SPEC'M 09/03/16 23:55 Test: WHITE BLOOD COUNT; Value: 8.4; Range: 4.0-10.0; Units: K/mm3; Status: F Test: RED BLOOD COUNT; Value: 4.16; Range: 4.00-5.40; Units: M/mm3; Status: F Test: HEMOGLOBIN; Value: 11.0; Range: 12.0-16.0; Abnormal: Below low normal; Units: g/dl; Status: F Test: HEMATOCRIT; Value: 33.4; Range: 36.0-47.0; Abnormal: Below low normal; Units: %; Status: F Test: MEAN CORPUSCULAR VOLUME; Value: 80.2; Range: 80.0-96.0; Units: fl; Status: F Test: MEAN CORPUSCULAR HEMOGLOBIN; Value: 26.3; Range: 27.0-33.0; Abnormal: Below low normal; Units: pg; Status: F Test: MEAN CORPUSCULAR HGB CONC; Value: 32.8; Range: 32.0-36.5; Units: g/dl; Status: F Test: RED CELL DISTRIBUTION WIDTH; Value: 16.3; Range: 11.5-14.5; Abnormal: Above high normal; Units: %; Status: F Test: PLATELET COUNT, AUTOMATED; Value: 205; Range: 150-450; Units: k/mm3; Status: F Test: NEUTROPHILS %; Value: 68.8; Range: 36.0-66.0; Abnormal: Above high normal; Units: %; Status: F Test: LYMPH %; Value: 20.9; Range: 24.0-44.0; Abnormal: Below low normal; Units: %; Status: F Test: MONO %; Value: 4.8; Range: 0.0-5.0; Units: %; Status: F Test: EOS %; Value: 3.0; Range: 0.0-3.0; Units: %; Status: F Test: BASO %; Value: 0.9; Range: 0.0-1.0; Units: %; Status: F Test: LARGE UNSTAINED CELL %; Value: 1.6; Range: 0.0-4.0; Units: %; Status: F Test: NEUTROPHILS #; Value: 5.8; Range: 1.8-7.7; Units: K/mm3; Status: F Test: LYMPH #; Value: 1.9; Range: 1.5-4.5; Units: K/mm3; Status: F Test: MONO #; Value: 0.4; Range: 0.0-0.8; Units: K/mm3; Status: F Test: EOS #; Value: 0.2; Range: 0.0-0.50; Units: K/mm3; Status: F Test: BASO #; Value: 0.1; Range: 0.0-0.2; Units: K/mm3; Status: F Test: LARGE UNSTAINED CELL #; Value: 0.1; Range: 0.0-0.4; Units: K/mm3; Status: F Lab Order: MED Profile; SPEC'M 09/03/16 23:55 Test: GLUCOSE, FASTING; Value: 100; Range: 83-110; Units: MG/DL; Status: F Test: BLOOD UREA NITROGEN; Value: 12; Range: 7-18; Units: MG/DL; Status: F Test: CREATININE FOR GFR; Value: 0.90; Range: 0.55-1.02; Units: MG/DL; Status: F Test: GLOMERULAR FILTRATION RATE; Value: > 60.0; Range: >39; Status: F Test: SODIUM LEVEL; Value: 140; Range: 136-145; Units: MEQ/L; Status: F Test: POTASSIUM SERUM; Value: 4.0; Range: 3.5-5.1; Units: MEQ/L; Status: F Test: CHLORIDE LEVEL; Value: 105; Range: 98-107; Units: MEQ/L; Status: F Test: CARBON DIOXIDE LEVEL; Value: 27; Range: 21-32; Units: MEQ/L; Status: F Test: ANION GAP; Value: 8; Range: 8-16; Units: MEQ/L; Status: F Test: CALCIUM LEVEL; Value: 8.6; Range: 8.8-10.2; Abnormal: Below low normal; Units: MG/DL; Status: F Test Note: ; Units are mL/min/1.73 m2 Chronic Kidney Disease Staging per NKF: Stage I & II GFR >=60 Normal to Mildly Decreased Stage III GFR 30-59 Moderately Decreased Stage IV GFR 15-29 Severely Decreased Stage V GFR <15 Very Little GFR Left ESRD GFR <15 on FIELD CROP GROWER Lab Order: Liver Profile; SPEC'M 09/03/16 23:55 Test: AST/SGOT; Value: 16; Range: 15-37; Units: U/L; Status: F Test: ALT/SGPT; Value: 15; Range: 12-78; Units: U/L; Status: F Test: ALKALINE PHOSPHATASE; Value: 101; Range: 45-117; Units: U/L; Status: F Test: BILIRUBIN,TOTAL; Value: 0.3; Range: 0.2-1.0; Units: MG/DL; Status: F Test: BILIRUBIN,DIRECT; Value: < 0.1; Range: 0.0-0.2; Units: MG/DL; Status: F Test: TOTAL PROTEIN; Value: 7.4; Range: 6.4-8.2; Units: GM/DL; Status: F Test: ALBUMIN; Value: 3.2; Range: 3.2-5.2; Units: GM/DL; Status: F Test: ALBUMIN/GLOBULIN RATIO; Value: 0.76; Range: 1.00-1.93; Abnormal: Below low normal; Status: F Lab Order: Amylase; SPEC'M 09/03/16 23:55 Test: AMYLASE; Value: 53; Range: 25-115; Units: U/L; Status: F Lab Order: Lipase; SPEC'M 09/03/16 23:55 Test: LIPASE; Value: 71; Range: 73-393; Abnormal: Below low normal; Units: U/L; Status: F Lab Order: Urinalysis; SPEC'M 09/03/16 23:55 Test: APPEARANCE, URINE; Value: TURBID; Range: CLEAR; Abnormal: Above high normal; Status: F Test: COLOR, URINE; Value: DEV; Range: YELLOW; Status: F Test: PH,URINE; Value: 5.0; Range: 5.0-9.0; Units: UNITS; Status: F Test: SPECIFIC GRAVITY URINE AUTO; Value: 1.016; Range: 1.002-1.035; Status: F Test: PROTEIN, URINE AUTO; Value: 2+; Range: NEGATIVE; Abnormal: Above high normal; Units: mg/dL; Status: F Test: GLUCOSE, URINE (UA) AUTO; Value: NEGATIVE; Range: NEGATIVE; Units: mg/dL; Status: F Test: KETONE, URINE AUTO; Value: NEGATIVE; Range: NEGATIVE; Units: mg/dL; Status: F Test: UROBILINOGEN, URINE AUTO; Value: 0.2; Range: 0.0-2.0; Units: mg/dL; Status: F Test: BILIRUBIN, URINE AUTO; Value: NEGATIVE; Range: NEGATIVE; Status: F Test: NITRITE, URINE AUTO; Value: POSITIVE; Range: NEGATIVE; Status: F Test: LEUKOCYTE ESTERASE, URINE AUTO; Value: 3+; Range: NEGATIVE; Abnormal: Above high normal; Status: F Test: BLOOD, URINE BLOOD; Value: 3+; Range: NEGATIVE; Abnormal: Above high normal; Status: F Test: WBC, URINE AUTO; Value: TNTC; Range: 0-3; Abnormal: Above high normal; Units: /HPF; Status: F Test: RBC, URINE AUTO; Value: TNTC; Range: 0-3; Abnormal: Above high normal; Units: /HPF; Status: F Test: BACTERIA, URINE AUTO; Value: 3+; Range: NEGATIVE; Abnormal: Above high normal; Status: F Test: SQUAMOUS EPITHELIAL CELL UR AU; Value: 0; Range: 0-6; Units: /HPF; Status: F Test: MUCUS, URINE; Value: SMALL; Range: NEGATIVE; Status: F Test: HYALINE CAST, URINE AUTO; Value: 0; Range: 0-1; Units: /LPF; Status: F Lab Order: BLOOD CULTURES; SPEC'M 09/03/16 23:55 Test: BLOOD CULTURE; Value: No growth after 24 hours . All specimens observed; Status: F Test: BLOOD CULTURE; Value: for 5 days. Results final at that time.; Status: F Test: BLOOD CULTURE; Value: No Growth after 48 hours. All Specimens observed; Status: F Test: BLOOD CULTURE; Value: for 7 days. Results final at that time.; Status: F Radiology Order: CT ABD & PELVIS: IV Contrast Only Test: CT ABD & PELVIS: IV Contrast Only REASON FOR EXAMINATION: Abdomen Pain; ; CLINICAL HISTORY: Abdominal pain.; TECHNIQUE: Multiple axial, sagittal and coronal CT images were obtained through the abdomen and pelvi; s after administration of intravenous contrast material.; COMMENTS:; The liver is mildly enlarged without mass or defect. There is no intra or extrahepatic biliary ductal; dilatation. The spleen is normal. The gallbladder is surgically absent. The pancreas is of normal co; ntour and attenuation characteristics. There is no evidence of adrenal mass.; Mild atrophy of the kidneys. Unremarkable ileal conduit. The kidneys are normal in size, shape and co; nfiguration. There is no evidence of renal or ureteral mass. No renal or ureteral calculi are identif; ied. There is no hydroureter or hydronephrosis.; No evidence for appendicitis. There is no bowel wall thickening. No evidence for small or large mani; l obstruction. There is no evidence of abdominal ascites or lymphadenopathy.; Diffuse thickening of the underdistended bladder. There is no pelvic ascites or lymphadenopathy. Unre; markable left lower quadrant colostomy. Moderate large bowel fecal stasis.; Images of the lung bases show no evidence of pleural or parenchymal mass. There are no pleural effusi; ons.; The bony structures are free of lytic or blastic lesions. Multilevel degenerative changes are seen in; volving the thoracolumbar spine. Scattered calcifications are seen involving the aorta and major bran; ches compatible with atherosclerosis.; IMPRESSION:; Diffuse thickening of the underdistended bladder.; Unremarkable ileal conduit.; Mild chronic bilateral renal atrophy.; Large bowel fecal stasis.; No changes noted since the prior exam on 04/06/2016.; Thank you for your kind referral of this patient.; ; Outcome: 03:08 Discharge Assessment: Patient awake, alert and oriented x 3. No cognitive and/or tm5 functional deficits noted. Patient verbalized understanding of disposition instructions. patient administered narcotics - yes. Pt provided with safe discharge. The following High Risk Discharge criteria are identified: None. Discharged to home ambulatory, with significant other. Condition: stable Condition: improved. Discharge instructions given to patient, Instructed on discharge instructions, follow up and referral plans. medication usage, Demonstrated understanding of instructions, medications, Pt was receptive of discharge instructions/ teaching. Prescriptions given X 1. CT Study completed. Property :Personal belongings accompany Pt. 03:20 Discharge ordered by Provider. cs11 03:35 Patient left the ED. tm5 Signatures: Dispatcher [employer] EDMS Caroline Perez, Reg Reg gb Heena Anthony,RN RN jo3 Nic Swan, DINKEY MOTOR OPERATOR DINKEY MOTOR OPERATOR dd6 Basil Colin, DO cs11 Nathaly Mckeon Tonya, RN RN tm5 Mau Garza, Reg Reg pm4 Corrections: (The following items were deleted from the chart) 03:34 03:08 Pulse 56bpm; MonitorResp 16bpm; Spontaneous; Pulse Ox 94% RA; tm5 tm5 Chart Complete MTDD
--- NOTE | 2016-09-08 08:36 | EDDOCDS ---
Physician Documentation [facility] Name: Uzma Miller Age: 71 yrs Sex: Female : 1945 Arrival Date: 09/03/2016 Time: 22:36 Bed 14 Private MD: Nay Vegas., DO Disposition: 09/04/16 03:20 Discharged to Home/Self Care. Impression: Urinary tract infection, site not specified. - Condition is Stable. - Prescriptions for Cipro 500 mg Oral Tablet - take 1 tablet by ORAL route every 12 hours; 10 tablet. - Medication Reconciliation, Local Pharmacy Hours form. - Follow up: Nay Vegas.; When: 1 - 2 days; Reason: Recheck today's complaints. - Problem is an ongoing problem. - Symptoms have improved. Historical: - Allergies: Ambien (sleep walk); Clonidine (pass out); Codeine Sulfate (Anaphylaxis); Flu Shot; - Home Meds: 1. amitriptyline 100 mg Oral tab once daily HS 2. aspirin 81 mg Oral tab once daily 3. Cymbalta 30 mg Oral cpDR nightly 4. Lamisil 250 mg oral tab 1 tab once daily 5. lisinopril 20 mg Oral tab 1 tab once daily 6. Lyrica 100 mg Oral 3 times per day 7. metformin 500 mg Oral tab 1 tab 2 times per day 8. methadone 10 mg Oral tab 1 tab three times a day 9. oxycodone 10 mg Oral tab 1 tab every 4 hours 10. pravastatin 20 mg oral tab 1 tab once daily 11. ranitidine HCl 300 mg Oral tab 2 times per day 12. Requip 1 mg Oral tab 1 tab daily 13. Skelaxin 800 mg Oral tab 3 times per day 14. Stool Softener 100 mg oral tab 1 tab once daily as needed 15. Synthroid 50 mcg Oral tab 1 tab once daily 16. Vitamin B-12 1,000 mcg Oral tab daily 17. Women's Daily Multivitamin oral 1 tab daily - PMHx: Asthma; Depression; Hernia; Gastric Reflux; Diverticulitis; Migraines; Fibromyalgia; Diabetes - NIDDM: controlled; bowel obstruction; Degenerative disc disease; Carpal Tunnel Syndrome; Chronic Low Back Pain; neurogenic bowel; neurogenic bladder; - PSHx: Appendectomy; Cholecystectomy; Hysterectomy; Ovarian cysts removed; Colostomy and urostomy; Multiple back surgeries; - Social history: Smoking status: Patient states was never smoker of tobacco. No barriers to communication noted, The patient speaks fluent Maldivian, Speaks appropriately for age. - Family history: Not pertinent. - : The pt / caregiver states he / she is not on anticoagulants. Home medication list is obtained from the patient. - Exposure Risk Screening:: None identified. Vital Signs: 09/03 22:37 BP 184 / 76; Pulse 75; Resp 18; Temp 96.5(O); Pulse Ox 100% on R/A; Weight 81.65 kg / dd6 180.01 lbs (R); Height 5 ft. 3 in. (160.02 cm) (R); 09/04 00:08 BP 136 / 58 (auto/); tm5 00:09 Pulse 56 MON; Resp 18 S; Pulse Ox 97% on R/A; tm5 00:23 BP 135 / 62 (auto/); tm5 00:23 Pulse 56 MON; Pulse Ox 95% ; tm5 00:38 BP 143 / 65 (auto/); tm5 00:38 Pulse 54 MON; Pulse Ox 93% ; tm5 00:53 BP 153 / 67 (auto/); tm5 00:53 Pulse 54 MON; Resp 20 S; Pulse Ox 95% on R/A; tm5 01:08 BP 152 / 68 (auto/); tm5 01:08 Pulse 56 MON; Pulse Ox 96% ; tm5 01:23 BP 162 / 67 (auto/); tm5 01:23 Pulse 54 MON; Resp 18 S; Pulse Ox 95% on R/A; tm5 01:53 BP 136 / 61 (auto/); tm5 01:56 Pulse 62 MON; Pulse Ox 96% ; tm5 02:08 BP 176 / 71 (auto/); tm5 02:08 Pulse 62 MON; Pulse Ox 96% ; tm5 02:23 BP 153 / 68 (auto/); tm5 02:23 Pulse 60 MON; Resp 16 S; Pulse Ox 96% on R/A; Pain 4/10; tm5 02:53 BP 158 / 63 (auto/); tm5 02:53 Pulse 58 MON; Pulse Ox 96% ; tm5 03:08 BP 158 / 68 (auto/); tm5 03:08 Pulse 56 MON; Resp 16 S; Temp 97.8(O); Pulse Ox 94% on R/A; Pain 2/10; tm5 09/03 22:37 Body Mass Index 31.89 (81.65 kg, 160.02 cm) dd6 MDM: 09/03 23:28 IV Saline Lock ordered. cs11 23:28 -Blood Culture (Adults Only), peripheral from different site, or from device/port/PICC cs11 etc. if present ordered. 23:28 Dilaudid - HYDROmorphone 1 mg IVP once ordered. cs11 23:28 cefTRIAXone 1 grams IVPB once over 30 mins; dilute in 50mL of NS or D5W ordered. cs11 23:29 -Blood Culture (Adults Only), peripheral from different site, or from device/port/PICC tmm1 etc. if present complete. 23:29 Lactic Acid (Jain tube on ice) Ordered. EDMS 23:29 CBC with Diff Ordered. EDMS 23:29 MED Profile Ordered. EDMS 23:29 Liver Profile Ordered. EDMS 23:29 Amylase Ordered. EDMS 23:29 Lipase Ordered. EDMS 23:29 Urinalysis Ordered. EDMS 23:29 -Blood Culture Ordered. EDMS 23:30 Urine Culture Ordered. EDMS 23:31 BLOOD CULTURES Ordered. EDMS 09/04 00:21 Financial registration complete. pm4 00:41 CBC with Diff Reviewed. cs11 00:41 MED Profile Reviewed. cs11 00:41 Liver Profile Reviewed. cs11 00:41 Lipase Reviewed. cs11 00:41 Urinalysis Reviewed. cs11 00:41 Lactic Acid (Jain tube on ice) Reviewed. cs11 00:41 Amylase Reviewed. cs11 00:41 [facility] Payment Agreement was scanned into [employer] and attached to record. pm4 00:42 Ciprofloxacin 400 mg IVPB at 200 mL/hr once over 60 mins ordered. cs11 00:43 NS 0.9% 1000 ml IV at bolus once ordered. cs11 00:43 CT ABD & PELVIS: IV Contrast Only Ordered. EDMS 00:54 Dilaudid - HYDROmorphone 1 mg IVP once ordered. tm5 03:17 CT ABD & PELVIS: IV Contrast Only Reviewed. cs11 07:44 T-Sheet-- Draft Copy was scanned into [employer] and attached to record. seh 11:57 Radiology Report was scanned into [employer] and attached to record. gb Administered Medications: 00:14 Drug: Dilaudid - HYDROmorphone 1 mg [hydromorphone 1 mg/mL injection syringe (1 mL)] tm5 Route: IVP; Site: right forearm; 00:54 Follow up: Response: No Adverse Reaction; No significant change. tm5 00:14 Drug: cefTRIAXone 1 grams [ceftriaxone 250 mg solution for injection] Route: IVPB; tm5 Infused Over: 30 mins; Site: right forearm; 00:53 Follow up: IV Status: Completed infusion; IV Intake: 50ml tm5 00:53 Follow up: Response: No Adverse Reaction tm5 00:53 Drug: Ciprofloxacin 400 mg [ciprofloxacin 400 mg/200 mL in 5 % dextrose intravenous tm5 piggyback] Route: IVPB; Rate: 200 mL/hr; Infused Over: 60 mins; Site: right forearm; 02:27 Follow up: IV Status: Completed infusion; IV Intake: 200ml tm5 00:54 Drug: NS 0.9% 1000 ml [sodium chloride 0.9 % intravenous solution] Route: IV; Rate: tm5 bolus; Site: right forearm; 02:27 Follow up: IV Status: Completed infusion; IV Intake: 1000ml tm5 00:59 Drug: Dilaudid - HYDROmorphone 1 mg [hydromorphone 1 mg/mL injection syringe (1 mL)] tm5 Route: IVP; Site: right forearm; 01:28 Follow up: Response: No Adverse Reaction; Pain is decreased tm5 Signatures: Dispatcher [employer] EDCaroline Cruz, Reg Reg gb Heena Anthony RN RN papito3 Basil Colin DO DO cs11 McLear, Virgie, UKE DRIVER UKE DRIVER tmm1 Nathaly Mckeon Tonya, RN RN tm5 Mau Garza, Reg Reg pm4 The chart was reviewed and I authenticate all verbal orders and agree with the evaluation and treatment provided.Attachments: 00:41 [facility] Payment Agreement pm4 07:44 T-Sheet-- Draft Copy [facility] MTDD
--- NOTE | 2016-09-08 08:36 | EDDOCDS ---
Physician Documentation [facility] Name: Uzma Miller Age: 71 yrs Sex: Female : 1945 Arrival Date: 09/03/2016 Time: 22:36 Bed 14 Private MD: Nay Vegas., DO Disposition: 09/04/16 03:20 Discharged to Home/Self Care. Impression: Urinary tract infection, site not specified. - Condition is Stable. - Prescriptions for Cipro 500 mg Oral Tablet - take 1 tablet by ORAL route every 12 hours; 10 tablet. - Medication Reconciliation, Local Pharmacy Hours form. - Follow up: Nay Vegas.; When: 1 - 2 days; Reason: Recheck today's complaints. - Problem is an ongoing problem. - Symptoms have improved. Historical: - Allergies: Ambien (sleep walk); Clonidine (pass out); Codeine Sulfate (Anaphylaxis); Flu Shot; - Home Meds: 1. amitriptyline 100 mg Oral tab once daily HS 2. aspirin 81 mg Oral tab once daily 3. Cymbalta 30 mg Oral cpDR nightly 4. Lamisil 250 mg oral tab 1 tab once daily 5. lisinopril 20 mg Oral tab 1 tab once daily 6. Lyrica 100 mg Oral 3 times per day 7. metformin 500 mg Oral tab 1 tab 2 times per day 8. methadone 10 mg Oral tab 1 tab three times a day 9. oxycodone 10 mg Oral tab 1 tab every 4 hours 10. pravastatin 20 mg oral tab 1 tab once daily 11. ranitidine HCl 300 mg Oral tab 2 times per day 12. Requip 1 mg Oral tab 1 tab daily 13. Skelaxin 800 mg Oral tab 3 times per day 14. Stool Softener 100 mg oral tab 1 tab once daily as needed 15. Synthroid 50 mcg Oral tab 1 tab once daily 16. Vitamin B-12 1,000 mcg Oral tab daily 17. Women's Daily Multivitamin oral 1 tab daily - PMHx: Asthma; Depression; Hernia; Gastric Reflux; Diverticulitis; Migraines; Fibromyalgia; Diabetes - NIDDM: controlled; bowel obstruction; Degenerative disc disease; Carpal Tunnel Syndrome; Chronic Low Back Pain; neurogenic bowel; neurogenic bladder; - PSHx: Appendectomy; Cholecystectomy; Hysterectomy; Ovarian cysts removed; Colostomy and urostomy; Multiple back surgeries; - Social history: Smoking status: Patient states was never smoker of tobacco. No barriers to communication noted, The patient speaks fluent Filipino, Speaks appropriately for age. - Family history: Not pertinent. - : The pt / caregiver states he / she is not on anticoagulants. Home medication list is obtained from the patient. - Exposure Risk Screening:: None identified. Vital Signs: 09/03 22:37 BP 184 / 76; Pulse 75; Resp 18; Temp 96.5(O); Pulse Ox 100% on R/A; Weight 81.65 kg / dd6 180.01 lbs (R); Height 5 ft. 3 in. (160.02 cm) (R); 09/04 00:08 BP 136 / 58 (auto/); tm5 00:09 Pulse 56 MON; Resp 18 S; Pulse Ox 97% on R/A; tm5 00:23 BP 135 / 62 (auto/); tm5 00:23 Pulse 56 MON; Pulse Ox 95% ; tm5 00:38 BP 143 / 65 (auto/); tm5 00:38 Pulse 54 MON; Pulse Ox 93% ; tm5 00:53 BP 153 / 67 (auto/); tm5 00:53 Pulse 54 MON; Resp 20 S; Pulse Ox 95% on R/A; tm5 01:08 BP 152 / 68 (auto/); tm5 01:08 Pulse 56 MON; Pulse Ox 96% ; tm5 01:23 BP 162 / 67 (auto/); tm5 01:23 Pulse 54 MON; Resp 18 S; Pulse Ox 95% on R/A; tm5 01:53 BP 136 / 61 (auto/); tm5 01:56 Pulse 62 MON; Pulse Ox 96% ; tm5 02:08 BP 176 / 71 (auto/); tm5 02:08 Pulse 62 MON; Pulse Ox 96% ; tm5 02:23 BP 153 / 68 (auto/); tm5 02:23 Pulse 60 MON; Resp 16 S; Pulse Ox 96% on R/A; Pain 4/10; tm5 02:53 BP 158 / 63 (auto/); tm5 02:53 Pulse 58 MON; Pulse Ox 96% ; tm5 03:08 BP 158 / 68 (auto/); tm5 03:08 Pulse 56 MON; Resp 16 S; Temp 97.8(O); Pulse Ox 94% on R/A; Pain 2/10; tm5 09/03 22:37 Body Mass Index 31.89 (81.65 kg, 160.02 cm) dd6 MDM: 09/03 23:28 IV Saline Lock ordered. cs11 23:28 -Blood Culture (Adults Only), peripheral from different site, or from device/port/PICC cs11 etc. if present ordered. 23:28 Dilaudid - HYDROmorphone 1 mg IVP once ordered. cs11 23:28 cefTRIAXone 1 grams IVPB once over 30 mins; dilute in 50mL of NS or D5W ordered. cs11 23:29 -Blood Culture (Adults Only), peripheral from different site, or from device/port/PICC tmm1 etc. if present complete. 23:29 Lactic Acid (Jain tube on ice) Ordered. EDMS 23:29 CBC with Diff Ordered. EDMS 23:29 MED Profile Ordered. EDMS 23:29 Liver Profile Ordered. EDMS 23:29 Amylase Ordered. EDMS 23:29 Lipase Ordered. EDMS 23:29 Urinalysis Ordered. EDMS 23:29 -Blood Culture Ordered. EDMS 23:30 Urine Culture Ordered. EDMS 23:31 BLOOD CULTURES Ordered. EDMS 09/04 00:21 Financial registration complete. pm4 00:41 CBC with Diff Reviewed. cs11 00:41 MED Profile Reviewed. cs11 00:41 Liver Profile Reviewed. cs11 00:41 Lipase Reviewed. cs11 00:41 Urinalysis Reviewed. cs11 00:41 Lactic Acid (Jain tube on ice) Reviewed. cs11 00:41 Amylase Reviewed. cs11 00:41 [facility] Payment Agreement was scanned into [employer] and attached to record. pm4 00:42 Ciprofloxacin 400 mg IVPB at 200 mL/hr once over 60 mins ordered. cs11 00:43 NS 0.9% 1000 ml IV at bolus once ordered. cs11 00:43 CT ABD & PELVIS: IV Contrast Only Ordered. EDMS 00:54 Dilaudid - HYDROmorphone 1 mg IVP once ordered. tm5 03:17 CT ABD & PELVIS: IV Contrast Only Reviewed. cs11 07:44 T-Sheet-- Draft Copy was scanned into [employer] and attached to record. seh 11:57 Radiology Report was scanned into [employer] and attached to record. gb Administered Medications: 00:14 Drug: Dilaudid - HYDROmorphone 1 mg [hydromorphone 1 mg/mL injection syringe (1 mL)] tm5 Route: IVP; Site: right forearm; 00:54 Follow up: Response: No Adverse Reaction; No significant change. tm5 00:14 Drug: cefTRIAXone 1 grams [ceftriaxone 250 mg solution for injection] Route: IVPB; tm5 Infused Over: 30 mins; Site: right forearm; 00:53 Follow up: IV Status: Completed infusion; IV Intake: 50ml tm5 00:53 Follow up: Response: No Adverse Reaction tm5 00:53 Drug: Ciprofloxacin 400 mg [ciprofloxacin 400 mg/200 mL in 5 % dextrose intravenous tm5 piggyback] Route: IVPB; Rate: 200 mL/hr; Infused Over: 60 mins; Site: right forearm; 02:27 Follow up: IV Status: Completed infusion; IV Intake: 200ml tm5 00:54 Drug: NS 0.9% 1000 ml [sodium chloride 0.9 % intravenous solution] Route: IV; Rate: tm5 bolus; Site: right forearm; 02:27 Follow up: IV Status: Completed infusion; IV Intake: 1000ml tm5 00:59 Drug: Dilaudid - HYDROmorphone 1 mg [hydromorphone 1 mg/mL injection syringe (1 mL)] tm5 Route: IVP; Site: right forearm; 01:28 Follow up: Response: No Adverse Reaction; Pain is decreased tm5 Signatures: Dispatcher [employer] EDCaroline Cruz, Reg Reg gb Heena Anthony RN RN [id number] Basil Colin DO DO cs11 McLear, Virgie, MACHINE TOOL ELECTRICIAN MACHINE TOOL ELECTRICIAN tmm1 Nathaly Mckeon Tonya, RN RN tm5 Mau Garza, Reg Reg pm4 The chart was reviewed and I authenticate all verbal orders and agree with the evaluation and treatment provided.Attachments: 00:41 [facility] Payment Agreement pm4 07:44 T-Sheet-- Draft Copy [facility] MTDD
--- NOTE | 2016-09-08 08:39 | EDDOCDS ---
Nurse's Notes [facility] Name: Uzma Miller Age: 71 yrs Sex: Female : 1945 Arrival Date: 09/03/2016 Time: 22:36 Bed 14 Private MD: Nay Vegas., DO Diagnosis: Urinary tract infection, site not specified Presentation: 09/03 22:44 Presenting complaint: Patient states: Abdominal pain and low back pain with hematuria. jo3 Has tyra nephrostomy tubes and a urostomy. Adult Sepsis Screening: The patient does not have new or worsening altered mentation. Patient's respiratory rate is less than 22. Systolic blood pressure is greater than 100. Patient has a qSOFA score of 0- Negative Sepsis Screen. Suicide/Homicide risk assessment- the patient denies having any suicidal and/or homicidal ideations and does not present with any other emotional, behavioral or mental health complaints. Status: Patient is not a service car driver or dependent. Transition of care: patient was not received from another setting of care. 22:44 Acuity: NAREN Level 3 jo3 22:44 Method Of Arrival: Walkin/Carried/Asstd jo3 Triage Assessment: 22:49 General: Appears in no apparent distress, Behavior is appropriate for age, cooperative. jo3 Pain: Pain currently is 7 out of 10 on a pain scale. Neurological: Level of Consciousness is awake, alert, Oriented to person, place, time. Respiratory: Airway is patent Respiratory effort is even, unlabored. Derm: Skin is pink, warm & dry. Historical: - Allergies: Ambien (sleep walk); Clonidine (pass out); Codeine Sulfate (Anaphylaxis); Flu Shot; - Home Meds: 1. amitriptyline 100 mg Oral tab once daily HS 2. aspirin 81 mg Oral tab once daily 3. Cymbalta 30 mg Oral cpDR nightly 4. Lamisil 250 mg oral tab 1 tab once daily 5. lisinopril 20 mg Oral tab 1 tab once daily 6. Lyrica 100 mg Oral 3 times per day 7. metformin 500 mg Oral tab 1 tab 2 times per day 8. methadone 10 mg Oral tab 1 tab three times a day 9. oxycodone 10 mg Oral tab 1 tab every 4 hours 10. pravastatin 20 mg oral tab 1 tab once daily 11. ranitidine HCl 300 mg Oral tab 2 times per day 12. Requip 1 mg Oral tab 1 tab daily 13. Skelaxin 800 mg Oral tab 3 times per day 14. Stool Softener 100 mg oral tab 1 tab once daily as needed 15. Synthroid 50 mcg Oral tab 1 tab once daily 16. Vitamin B-12 1,000 mcg Oral tab daily 17. Women's Daily Multivitamin oral 1 tab daily - PMHx: Asthma; Depression; Hernia; Gastric Reflux; Diverticulitis; Migraines; Fibromyalgia; Diabetes - NIDDM: controlled; bowel obstruction; Degenerative disc disease; Carpal Tunnel Syndrome; Chronic Low Back Pain; neurogenic bowel; neurogenic bladder; - PSHx: Appendectomy; Cholecystectomy; Hysterectomy; Ovarian cysts removed; Colostomy and urostomy; Multiple back surgeries; - Social history: Smoking status: Patient states was never smoker of tobacco. No barriers to communication noted, The patient speaks fluent [place], Speaks appropriately for age. - Family history: Not pertinent. - : The pt / caregiver states he / she is not on anticoagulants. Home medication list is obtained from the patient. - Exposure Risk Screening:: None identified. Screenin:38 Infection Control. dd6 09/04 00:09 Screening information is obtained from the patient. Fall risk: No risks identified. tm5 Assistance ADL's: requires no assistance with activities of daily living. Abuse/DV Screen: The patient / caregiver reports he/she is: not in a situation that causes fear, pain or injury. Nutritional screening: No deficits noted. Advance Directives: There is no active DNR order. home support is adequate. Assessment: 00:15 General: Appears in no apparent distress, Behavior is appropriate for age, cooperative. tm5 Pain: Location: back and right lower quadrant Pain currently is 8 out of 10 on a pain scale. Quality of pain is described as burning. Neurological: No deficits noted. Respiratory: No deficits noted. Airway is patent Respiratory effort is even, unlabored, Respiratory pattern is regular, symmetrical, Breath sounds are clear bilaterally. GI: Abdomen is non- distended Bowel sounds present X 4 quads. : pt with Nephrostomy to right lower quad which has light blood tinged urine in the bag, per pt the urine color is "almost" the normal color now Reports. Derm: Skin is pink, warm & dry. normal. 00:57 Reassessment: Patient appears in no apparent distress at this time. Patient states tm5 symptoms have not improved. pt still complains of back spasms & RLQ abdominal pain . 01:27 Reassessment: Patient appears in no apparent distress at this time. Patient states tm5 feeling better. Patient states symptoms have improved. Pain: Location: right lower quadrant Pain currently is 4 out of 10 on a pain scale. Quality of pain is described as burning. 01:41 General: apple juice provided to pt per MD's okay. tm5 02:50 Reassessment: Patient appears in no apparent distress at this time. Patient states tm5 feeling better. Patient states symptoms have improved. 03:33 Reassessment: Patient appears in no apparent distress at this time. Patient states tm5 feeling better. Patient states symptoms have improved. Vital Signs: 09/03 22:37 BP 184 / 76; Pulse 75; Resp 18; Temp 96.5(O); Pulse Ox 100% on R/A; Weight 81.65 kg dd6 (R); Height 5 ft. 3 in. (160.02 cm) (R); 09/04 00:08 BP 136 / 58 (auto/); tm5 00:09 Pulse 56 MON; Resp 18 S; Pulse Ox 97% on R/A; tm5 00:23 BP 135 / 62 (auto/); tm5 00:23 Pulse 56 MON; Pulse Ox 95% ; tm5 00:38 BP 143 / 65 (auto/); tm5 00:38 Pulse 54 MON; Pulse Ox 93% ; tm5 00:53 BP 153 / 67 (auto/); tm5 00:53 Pulse 54 MON; Resp 20 S; Pulse Ox 95% on R/A; tm5 01:08 BP 152 / 68 (auto/); tm5 01:08 Pulse 56 MON; Pulse Ox 96% ; tm5 01:23 BP 162 / 67 (auto/); tm5 01:23 Pulse 54 MON; Resp 18 S; Pulse Ox 95% on R/A; tm5 01:53 BP 136 / 61 (auto/); tm5 01:56 Pulse 62 MON; Pulse Ox 96% ; tm5 02:08 BP 176 / 71 (auto/); tm5 02:08 Pulse 62 MON; Pulse Ox 96% ; tm5 02:23 BP 153 / 68 (auto/); tm5 02:23 Pulse 60 MON; Resp 16 S; Pulse Ox 96% on R/A; Pain 4/10; tm5 02:53 BP 158 / 63 (auto/); tm5 02:53 Pulse 58 MON; Pulse Ox 96% ; tm5 03:08 BP 158 / 68 (auto/); tm5 03:08 Pulse 56 MON; Resp 16 S; Temp 97.8(O); Pulse Ox 94% on R/A; Pain 2/10; tm5 09/03 22:37 Body Mass Index 31.89 (81.65 kg, 160.02 cm) dd6 Vitals: 09/03 22:37 Log In Time: September 03, 2016 at 22:35. dd6 ED Course: 22:37 Patient visited by Nic Swan PCA. dd6 22:37 Nay Vegas. is Private Physician. dd6 22:37 Patient moved to Waiting dd6 22:39 Patient moved to Pre RCE dd6 22:46 Triage Initiated jo3 22:50 Patient visited by Heena Anthony RN. jo3 22:51 Patient moved to 14 jo3 23:13 Basil Colin DO is Attending Physician. cs11 23:13 Patient visited by Basil Colin DO. cs11 09/04 00:02 BLOOD CULTURES Sent. tm5 00:02 Urine Culture Sent. tm5 00:02 Urinalysis Sent. tm5 00:02 Lipase Sent. tm5 00:02 Amylase Sent. tm5 00:02 Liver Profile Sent. tm5 00:02 MED Profile Sent. tm5 00:02 CBC with Diff Sent. tm5 00:02 Lactic Acid (Jain tube on ice) Sent. tm5 00:02 -Blood Culture Sent. tm5 00:04 Lauren Regalado,RN is Primary Nurse. tm5 00:09 The patient / caregiver is instructed regarding the plan of care and ED course. Pulse tm5 ox on. NIBP on. 00:09 Inserted saline lock: 20 gauge in right forearm and blood collected. The patient tm5 tolerated the procedure well. Labs/Blood culture drawn Urine collected. Nephrostomy bag Urine specimen sent to lab. 00:41 [facility] Payment Agreement was scanned into [employer] and attached to record. pm4 00:57 Patient visited by Lauren Regalado,GENNA. tm5 01:27 Patient visited by Lauren Regalado RN. tm5 01:[address] tm5 01:41 Patient visited by Lauren Regalado RN. tm5 01:[address]. tm5 02:27 Patient visited by Lauren Regalado RN. tm5 02:50 Patient visited by Lauren Regalado RN. tm5 02:56 CT ABD & PELVIS: IV Contrast Only Returned. EDMS 03:08 Discontinued lock intact, bleeding controlled, pressure dressing applied, No tm5 redness/swelling at site. No procedures done that require assistance. 03:20 Nay Vegas. is Referral Physician. cs11 03:23 Patient visited by Lauren Regalado RN. tm5 03:33 Patient visited by Lauren Regalado RN. tm5 07:44 T-Sheet-- Draft Copy was scanned into [employer] and attached to record. [facility] 11:57 Radiology Report was scanned into [employer] and attached to record. gb Administered Medications: 00:14 Drug: Dilaudid - HYDROmorphone 1 mg [hydromorphone 1 mg/mL injection syringe (1 mL)] tm5 Route: IVP; Site: right forearm; 00:54 Follow up: Response: No Adverse Reaction; No significant change. tm5 00:14 Drug: cefTRIAXone 1 grams [ceftriaxone 250 mg solution for injection] Route: IVPB; tm5 Infused Over: 30 mins; Site: right forearm; 00:53 Follow up: IV Status: Completed infusion; IV Intake: 50ml tm5 00:53 Follow up: Response: No Adverse Reaction tm5 00:53 Drug: Ciprofloxacin 400 mg [ciprofloxacin 400 mg/200 mL in 5 % dextrose intravenous tm5 piggyback] Route: IVPB; Rate: 200 mL/hr; Infused Over: 60 mins; Site: right forearm; 02:27 Follow up: IV Status: Completed infusion; IV Intake: 200ml tm5 00:54 Drug: NS 0.9% 1000 ml [sodium chloride 0.9 % intravenous solution] Route: IV; Rate: tm5 bolus; Site: right forearm; 02:27 Follow up: IV Status: Completed infusion; IV Intake: 1000ml tm5 00:59 Drug: Dilaudid - HYDROmorphone 1 mg [hydromorphone 1 mg/mL injection syringe (1 mL)] tm5 Route: IVP; Site: right forearm; : Follow up: Response: No Adverse Reaction; Pain is decreased tm5 Intake: 00:53 IV: 50.00ml; Total: 50.00ml. tm5 02:27 IV: 1000.00ml; Total: 1050.00ml. tm5 02:27 IV: 200.00ml; Total: 1250.00ml. tm5 Order Results: Lab Order: -Blood Culture; SPEC'M 09/03/16 23:55 Test: BLOOD CULTURE; Value: No growth after 48 hours . All specimens observed; Status: F Test: BLOOD CULTURE; Value: for 5 days. Results final at that time.; Status: F Test: BLOOD CULTURE; Status: F Test: BLOOD CULTURE; Value: No growth after 24 hours . All specimens observed; Status: F Test: BLOOD CULTURE; Value: for 5 days. Results final at that time.; Status: F Test: BLOOD CULTURE; Value: No Growth after 72 hours. All specimens observed; Status: F Test: BLOOD CULTURE; Value: for 7 days. Results final at that time.; Status: F Lab Order: Lactic Acid (Jain tube on ice); SPEC'M 09/03/16 23:55 Test: LACTIC ACID LEVEL, LACTATE; Value: 1.3; Range: 0.4-2.0; Units: MMOL/L; Status: F Lab Order: CBC with Diff; SPEC'M 09/03/16 23:55 Test: WHITE BLOOD COUNT; Value: 8.4; Range: 4.0-10.0; Units: K/mm3; Status: F Test: RED BLOOD COUNT; Value: 4.16; Range: 4.00-5.40; Units: M/mm3; Status: F Test: HEMOGLOBIN; Value: 11.0; Range: 12.0-16.0; Abnormal: Below low normal; Units: g/dl; Status: F Test: HEMATOCRIT; Value: 33.4; Range: 36.0-47.0; Abnormal: Below low normal; Units: %; Status: F Test: MEAN CORPUSCULAR VOLUME; Value: 80.2; Range: 80.0-96.0; Units: fl; Status: F Test: MEAN CORPUSCULAR HEMOGLOBIN; Value: 26.3; Range: 27.0-33.0; Abnormal: Below low normal; Units: pg; Status: F Test: MEAN CORPUSCULAR HGB CONC; Value: 32.8; Range: 32.0-36.5; Units: g/dl; Status: F Test: RED CELL DISTRIBUTION WIDTH; Value: 16.3; Range: 11.5-14.5; Abnormal: Above high normal; Units: %; Status: F Test: PLATELET COUNT, AUTOMATED; Value: 205; Range: 150-450; Units: k/mm3; Status: F Test: NEUTROPHILS %; Value: 68.8; Range: 36.0-66.0; Abnormal: Above high normal; Units: %; Status: F Test: LYMPH %; Value: 20.9; Range: 24.0-44.0; Abnormal: Below low normal; Units: %; Status: F Test: MONO %; Value: 4.8; Range: 0.0-5.0; Units: %; Status: F Test: EOS %; Value: 3.0; Range: 0.0-3.0; Units: %; Status: F Test: BASO %; Value: 0.9; Range: 0.0-1.0; Units: %; Status: F Test: LARGE UNSTAINED CELL %; Value: 1.6; Range: 0.0-4.0; Units: %; Status: F Test: NEUTROPHILS #; Value: 5.8; Range: 1.8-7.7; Units: K/mm3; Status: F Test: LYMPH #; Value: 1.9; Range: 1.5-4.5; Units: K/mm3; Status: F Test: MONO #; Value: 0.4; Range: 0.0-0.8; Units: K/mm3; Status: F Test: EOS #; Value: 0.2; Range: 0.0-0.50; Units: K/mm3; Status: F Test: BASO #; Value: 0.1; Range: 0.0-0.2; Units: K/mm3; Status: F Test: LARGE UNSTAINED CELL #; Value: 0.1; Range: 0.0-0.4; Units: K/mm3; Status: F Lab Order: MED Profile; SPEC'M 09/03/16 23:55 Test: GLUCOSE, FASTING; Value: 100; Range: 83-110; Units: MG/DL; Status: F Test: BLOOD UREA NITROGEN; Value: 12; Range: 7-18; Units: MG/DL; Status: F Test: CREATININE FOR GFR; Value: 0.90; Range: 0.55-1.02; Units: MG/DL; Status: F Test: GLOMERULAR FILTRATION RATE; Value: > 60.0; Range: >39; Status: F Test: SODIUM LEVEL; Value: 140; Range: 136-145; Units: MEQ/L; Status: F Test: POTASSIUM SERUM; Value: 4.0; Range: 3.5-5.1; Units: MEQ/L; Status: F Test: CHLORIDE LEVEL; Value: 105; Range: 98-107; Units: MEQ/L; Status: F Test: CARBON DIOXIDE LEVEL; Value: 27; Range: 21-32; Units: MEQ/L; Status: F Test: ANION GAP; Value: 8; Range: 8-16; Units: MEQ/L; Status: F Test: CALCIUM LEVEL; Value: 8.6; Range: 8.8-10.2; Abnormal: Below low normal; Units: MG/DL; Status: F Test Note: ; Units are mL/min/1.73 m2 Chronic Kidney Disease Staging per NKF: Stage I & II GFR >=60 Normal to Mildly Decreased Stage III GFR 30-59 Moderately Decreased Stage IV GFR 15-29 Severely Decreased Stage V GFR <15 Very Little GFR Left ESRD GFR <15 on TRANSPORTATION JOB TITLES Lab Order: Liver Profile; SPEC'M 09/03/16 23:55 Test: AST/SGOT; Value: 16; Range: 15-37; Units: U/L; Status: F Test: ALT/SGPT; Value: 15; Range: 12-78; Units: U/L; Status: F Test: ALKALINE PHOSPHATASE; Value: 101; Range: 45-117; Units: U/L; Status: F Test: BILIRUBIN,TOTAL; Value: 0.3; Range: 0.2-1.0; Units: MG/DL; Status: F Test: BILIRUBIN,DIRECT; Value: < 0.1; Range: 0.0-0.2; Units: MG/DL; Status: F Test: TOTAL PROTEIN; Value: 7.4; Range: 6.4-8.2; Units: GM/DL; Status: F Test: ALBUMIN; Value: 3.2; Range: 3.2-5.2; Units: GM/DL; Status: F Test: ALBUMIN/GLOBULIN RATIO; Value: 0.76; Range: 1.00-1.93; Abnormal: Below low normal; Status: F Lab Order: Amylase; SPEC' 09/03/16 Test: AMYLASE; Value: 53; Range: 25-115; Units: U/L; Status: F Lab Order: Lipase; SPEC' 09/03/16: Test: LIPASE; Value: 71; Range: 73-393; Abnormal: Below low normal; Units: U/L; Status: F Lab Order: Urinalysis; [facility]' 09/03/16 Test: APPEARANCE, URINE; Value: TURBID; Range: CLEAR; Abnormal: Above high normal; Status: F Test: COLOR, URINE; Value: DEV; Range: YELLOW; Status: F Test: PH,URINE; Value: 5.0; Range: 5.0-9.0; Units: UNITS; Status: F Test: SPECIFIC GRAVITY URINE AUTO; Value: 1.016; Range: 1.002-1.035; Status: F Test: PROTEIN, URINE AUTO; Value: 2+; Range: NEGATIVE; Abnormal: Above high normal; Units: mg/dL; Status: F Test: GLUCOSE, URINE (UA) AUTO; Value: NEGATIVE; Range: NEGATIVE; Units: mg/dL; Status: F Test: KETONE, URINE AUTO; Value: NEGATIVE; Range: NEGATIVE; Units: mg/dL; Status: F Test: UROBILINOGEN, URINE AUTO; Value: 0.2; Range: 0.0-2.0; Units: mg/dL; Status: F Test: BILIRUBIN, URINE AUTO; Value: NEGATIVE; Range: NEGATIVE; Status: F Test: NITRITE, URINE AUTO; Value: POSITIVE; Range: NEGATIVE; Status: F Test: LEUKOCYTE ESTERASE, URINE AUTO; Value: 3+; Range: NEGATIVE; Abnormal: Above high normal; Status: F Test: BLOOD, URINE BLOOD; Value: 3+; Range: NEGATIVE; Abnormal: Above high normal; Status: F Test: WBC, URINE AUTO; Value: TNTC; Range: 0-3; Abnormal: Above high normal; Units: /HPF; Status: F Test: RBC, URINE AUTO; Value: TNTC; Range: 0-3; Abnormal: Above high normal; Units: /HPF; Status: F Test: BACTERIA, URINE AUTO; Value: 3+; Range: NEGATIVE; Abnormal: Above high normal; Status: F Test: SQUAMOUS EPITHELIAL CELL UR AU; Value: 0; Range: 0-6; Units: /HPF; Status: F Test: MUCUS, URINE; Value: SMALL; Range: NEGATIVE; Status: F Test: HYALINE CAST, URINE AUTO; Value: 0; Range: 0-1; Units: /LPF; Status: F Lab Order: Urine Culture; SPEC'M 09/03/16 23:55 Test: URINE CULTURE; Value: ORGANISM 1: KLEBSIELLA PNEUMONIAE; Status: F Test: URINE CULTURE; Value: KLEBSIELLA PNEUMONIAE; Status: F Test: URINE CULTURE; Value: COLONY COUNT CFU/ml >100,000; Status: F Test: URINE CULTURE; Value: GRAM NEG SENSI - VITEK 80; Status: F Test: URINE CULTURE; Value: Method: VIT2; Status: F Test: URINE CULTURE; Value: EXTD BRD SPCTRM BETA LACTAMASE -; Status: F Test: URINE CULTURE; Value: TRIMETHOPRIM/SULFAMETHOXAZOLE <=20 S; Status: F Test: URINE CULTURE; Value: AMPICILLIN 16 R; Status: F Test: URINE CULTURE; Value: GENTAMICIN <=1 S; Status: F Test: URINE CULTURE; Value: NITROFURANTOIN <=16 S; Status: F Test: URINE CULTURE; Value: CEFAZOLIN <=4 S; Status: F Test: URINE CULTURE; Value: LEVOFLOXACIN <=0.12 S; Status: F Test: URINE CULTURE; Value: TOBRAMYCIN <=1 S; Status: F Test: URINE CULTURE; Value: CEFTRIAXONE <=1 S; Status: F Test: URINE CULTURE; Value: CEFTAZIDIME <=1 S; Status: F Test: URINE CULTURE; Value: AMPICILLIN/SULBACTAM <=2 S; Status: F Test: URINE CULTURE; Value: PIPERACILLIN/TAZOBACTAM <=4 S; Status: F Test: URINE CULTURE; Value: AZTREONAM <=1 S; Status: F Test: URINE CULTURE; Value: ERTAPENEM <=0.5 S; Status: F Test: URINE CULTURE; Value: MEROPENEM <=0.25 S; Status: F Test: URINE CULTURE; Value: TIGECYCLINE <=0.5 S; Status: F Test: URINE CULTURE; Value: CEFEPIME <=1 S; Status: F Lab Order: BLOOD CULTURES; SPEC'M 09/03/16 23:55 Test: BLOOD CULTURE; Value: No growth after 48 hours . All specimens observed; Status: F Test: BLOOD CULTURE; Value: for 5 days. Results final at that time.; Status: F Test: BLOOD CULTURE; Status: F Test: BLOOD CULTURE; Value: No growth after 24 hours . All specimens observed; Status: F Test: BLOOD CULTURE; Value: for 5 days. Results final at that time.; Status: F Test: BLOOD CULTURE; Value: No Growth after 72 hours. All specimens observed; Status: F Test: BLOOD CULTURE; Value: for 7 days. Results final at that time.; Status: F Radiology Order: CT ABD & PELVIS: IV Contrast Only Test: CT ABD & PELVIS: IV Contrast Only REASON FOR EXAMINATION: Abdomen Pain; ; CLINICAL HISTORY: Abdominal pain.; TECHNIQUE: Multiple axial, sagittal and coronal CT images were obtained through the abdomen and pelvi; s after administration of intravenous contrast material.; COMMENTS:; The liver is mildly enlarged without mass or defect. There is no intra or extrahepatic biliary ductal; dilatation. The spleen is normal. The gallbladder is surgically absent. The pancreas is of normal co; ntour and attenuation characteristics. There is no evidence of adrenal mass.; Mild atrophy of the kidneys. Unremarkable ileal conduit. The kidneys are normal in size, shape and co; nfiguration. There is no evidence of renal or ureteral mass. No renal or ureteral calculi are identif; ied. There is no hydroureter or hydronephrosis.; No evidence for appendicitis. There is no bowel wall thickening. No evidence for small or large mani; l obstruction. There is no evidence of abdominal ascites or lymphadenopathy.; Diffuse thickening of the underdistended bladder. There is no pelvic ascites or lymphadenopathy. Unre; markable left lower quadrant colostomy. Moderate large bowel fecal stasis.; Images of the lung bases show no evidence of pleural or parenchymal mass. There are no pleural effusi; ons.; The bony structures are free of lytic or blastic lesions. Multilevel degenerative changes are seen in; volving the thoracolumbar spine. Scattered calcifications are seen involving the aorta and major bran; ches compatible with atherosclerosis.; IMPRESSION:; Diffuse thickening of the underdistended bladder.; Unremarkable ileal conduit.; Mild chronic bilateral renal atrophy.; Large bowel fecal stasis.; No changes noted since the prior exam on 04/06/2016.; Thank you for your kind referral of this patient.; ; Outcome: 03:08 Discharge Assessment: Patient awake, alert and oriented x 3. No cognitive and/or tm5 functional deficits noted. Patient verbalized understanding of disposition instructions. patient administered narcotics - yes. Pt provided with safe discharge. The following High Risk Discharge criteria are identified: None. Discharged to home ambulatory, with significant other. Condition: stable Condition: improved. Discharge instructions given to patient, Instructed on discharge instructions, follow up and referral plans. medication usage, Demonstrated understanding of instructions, medications, Pt was receptive of discharge instructions/ teaching. Prescriptions given X 1. CT Study completed. Property :Personal belongings accompany Pt. 03:20 Discharge ordered by Provider. cs11 03:35 Patient left the ED. tm5 Addendum: 09/08/2016 08:35 Narrative: Urine culture results reviewed by Dr Ojeda and no changes made. [facility] Signatures: Dispatcher [employer] Elli Rasheed, RN RN [facility] Caroline Perez, Reg Reg gb Heena Anthony RN RN jo3 Nic Swan, DAVID MISCELLANEOUS MACHINE OPERATOR dd6 Basil Colin DO DO cs11 Nathaly Mckeon Tonya, RN RN tm5 Mau Garza, Reg Reg pm4 Corrections: (The following items were deleted from the chart) 09/04 03:34 03:08 Pulse 56bpm; MonitorResp 16bpm; Spontaneous; Pulse Ox 94% RA; tm5 tm5 Chart Complete MTDD
--- NOTE | 2016-09-08 08:39 | EDDOCDS ---
Physician Documentation [facility] Name: Uzma Miller Age: 71 yrs Sex: Female : 1945 Arrival Date: 09/03/2016 Time: 22:36 Bed 14 Private MD: Nay Vegas., DO Disposition: 09/04/16 03:20 Discharged to Home/Self Care. Impression: Urinary tract infection, site not specified. - Condition is Stable. - Prescriptions for Cipro 500 mg Oral Tablet - take 1 tablet by ORAL route every 12 hours; 10 tablet. - Medication Reconciliation, Local Pharmacy Hours form. - Follow up: Nay Vegas.; When: 1 - 2 days; Reason: Recheck today's complaints. - Problem is an ongoing problem. - Symptoms have improved. Historical: - Allergies: Ambien (sleep walk); Clonidine (pass out); Codeine Sulfate (Anaphylaxis); Flu Shot; - Home Meds: 1. amitriptyline 100 mg Oral tab once daily HS 2. aspirin 81 mg Oral tab once daily 3. Cymbalta 30 mg Oral cpDR nightly 4. Lamisil 250 mg oral tab 1 tab once daily 5. lisinopril 20 mg Oral tab 1 tab once daily 6. Lyrica 100 mg Oral 3 times per day 7. metformin 500 mg Oral tab 1 tab 2 times per day 8. methadone 10 mg Oral tab 1 tab three times a day 9. oxycodone 10 mg Oral tab 1 tab every 4 hours 10. pravastatin 20 mg oral tab 1 tab once daily 11. ranitidine HCl 300 mg Oral tab 2 times per day 12. Requip 1 mg Oral tab 1 tab daily 13. Skelaxin 800 mg Oral tab 3 times per day 14. Stool Softener 100 mg oral tab 1 tab once daily as needed 15. Synthroid 50 mcg Oral tab 1 tab once daily 16. Vitamin B-12 1,000 mcg Oral tab daily 17. Women's Daily Multivitamin oral 1 tab daily - PMHx: Asthma; Depression; Hernia; Gastric Reflux; Diverticulitis; Migraines; Fibromyalgia; Diabetes - NIDDM: controlled; bowel obstruction; Degenerative disc disease; Carpal Tunnel Syndrome; Chronic Low Back Pain; neurogenic bowel; neurogenic bladder; - PSHx: Appendectomy; Cholecystectomy; Hysterectomy; Ovarian cysts removed; Colostomy and urostomy; Multiple back surgeries; - Social history: Smoking status: Patient states was never smoker of tobacco. No barriers to communication noted, The patient speaks fluent Burkinan, Speaks appropriately for age. - Family history: Not pertinent. - : The pt / caregiver states he / she is not on anticoagulants. Home medication list is obtained from the patient. - Exposure Risk Screening:: None identified. Vital Signs: 09/03 22:37 BP 184 / 76; Pulse 75; Resp 18; Temp 96.5(O); Pulse Ox 100% on R/A; Weight 81.65 kg / dd6 180.01 lbs (R); Height 5 ft. 3 in. (160.02 cm) (R); 09/04 00:08 BP 136 / 58 (auto/); tm5 00:09 Pulse 56 MON; Resp 18 S; Pulse Ox 97% on R/A; tm5 00:23 BP 135 / 62 (auto/); tm5 00:23 Pulse 56 MON; Pulse Ox 95% ; tm5 00:38 BP 143 / 65 (auto/); tm5 00:38 Pulse 54 MON; Pulse Ox 93% ; tm5 00:53 BP 153 / 67 (auto/); tm5 00:53 Pulse 54 MON; Resp 20 S; Pulse Ox 95% on R/A; tm5 01:08 BP 152 / 68 (auto/); tm5 01:08 Pulse 56 MON; Pulse Ox 96% ; tm5 01:23 BP 162 / 67 (auto/); tm5 01:23 Pulse 54 MON; Resp 18 S; Pulse Ox 95% on R/A; tm5 01:53 BP 136 / 61 (auto/); tm5 01:56 Pulse 62 MON; Pulse Ox 96% ; tm5 02:08 BP 176 / 71 (auto/); tm5 02:08 Pulse 62 MON; Pulse Ox 96% ; tm5 02:23 BP 153 / 68 (auto/); tm5 02:23 Pulse 60 MON; Resp 16 S; Pulse Ox 96% on R/A; Pain 4/10; tm5 02:53 BP 158 / 63 (auto/); tm5 02:53 Pulse 58 MON; Pulse Ox 96% ; tm5 03:08 BP 158 / 68 (auto/); tm5 03:08 Pulse 56 MON; Resp 16 S; Temp 97.8(O); Pulse Ox 94% on R/A; Pain 2/10; tm5 09/03 22:37 Body Mass Index 31.89 (81.65 kg, 160.02 cm) dd6 MDM: 09/03 23:28 IV Saline Lock ordered. cs11 23:28 -Blood Culture (Adults Only), peripheral from different site, or from device/port/PICC cs11 etc. if present ordered. 23:28 Dilaudid - HYDROmorphone 1 mg IVP once ordered. cs11 23:28 cefTRIAXone 1 grams IVPB once over 30 mins; dilute in 50mL of NS or D5W ordered. cs11 23:29 -Blood Culture (Adults Only), peripheral from different site, or from device/port/PICC tmm1 etc. if present complete. 23:29 Lactic Acid (Jain tube on ice) Ordered. EDMS 23:29 CBC with Diff Ordered. EDMS 23:29 MED Profile Ordered. EDMS 23:29 Liver Profile Ordered. EDMS 23:29 Amylase Ordered. EDMS 23:29 Lipase Ordered. EDMS 23:29 Urinalysis Ordered. EDMS 23:29 -Blood Culture Ordered. EDMS 23:30 Urine Culture Ordered. EDMS 23:31 BLOOD CULTURES Ordered. EDMS 09/04 00:21 Financial registration complete. pm4 00:41 CBC with Diff Reviewed. cs11 00:41 MED Profile Reviewed. cs11 00:41 Liver Profile Reviewed. cs11 00:41 Lipase Reviewed. cs11 00:41 Urinalysis Reviewed. cs11 00:41 Lactic Acid (Jain tube on ice) Reviewed. cs11 00:41 Amylase Reviewed. cs11 00:41 [facility] Payment Agreement was scanned into [employer] and attached to record. pm4 00:42 Ciprofloxacin 400 mg IVPB at 200 mL/hr once over 60 mins ordered. cs11 00:43 NS 0.9% 1000 ml IV at bolus once ordered. cs11 00:43 CT ABD & PELVIS: IV Contrast Only Ordered. EDMS 00:54 Dilaudid - HYDROmorphone 1 mg IVP once ordered. tm5 03:17 CT ABD & PELVIS: IV Contrast Only Reviewed. cs11 07:44 T-Sheet-- Draft Copy was scanned into [employer] and attached to record. seh 11:57 Radiology Report was scanned into [employer] and attached to record. gb Administered Medications: 00:14 Drug: Dilaudid - HYDROmorphone 1 mg [hydromorphone 1 mg/mL injection syringe (1 mL)] tm5 Route: IVP; Site: right forearm; 00:54 Follow up: Response: No Adverse Reaction; No significant change. tm5 00:14 Drug: cefTRIAXone 1 grams [ceftriaxone 250 mg solution for injection] Route: IVPB; tm5 Infused Over: 30 mins; Site: right forearm; 00:53 Follow up: IV Status: Completed infusion; IV Intake: 50ml tm5 00:53 Follow up: Response: No Adverse Reaction tm5 00:53 Drug: Ciprofloxacin 400 mg [ciprofloxacin 400 mg/200 mL in 5 % dextrose intravenous tm5 piggyback] Route: IVPB; Rate: 200 mL/hr; Infused Over: 60 mins; Site: right forearm; 02:27 Follow up: IV Status: Completed infusion; IV Intake: 200ml tm5 00:54 Drug: NS 0.9% 1000 ml [sodium chloride 0.9 % intravenous solution] Route: IV; Rate: tm5 bolus; Site: right forearm; 02:27 Follow up: IV Status: Completed infusion; IV Intake: 1000ml tm5 00:59 Drug: Dilaudid - HYDROmorphone 1 mg [hydromorphone 1 mg/mL injection syringe (1 mL)] tm5 Route: IVP; Site: right forearm; 01:28 Follow up: Response: No Adverse Reaction; Pain is decreased tm5 Signatures: Dispatcher [employer] EDCaroline Cruz, Reg Reg gb Heena Anthony RN RN papito3 Basil Colin DO DO cs11 McLear, Virgie, ECONOMIC HISTORIAN ECONOMIC HISTORIAN tmm1 Nathaly Mckeon Tonya, RN RN tm5 Mau Garza, Reg Reg pm4 The chart was reviewed and I authenticate all verbal orders and agree with the evaluation and treatment provided.Attachments: 00:41 [facility] Payment Agreement pm4 07:44 T-Sheet-- Draft Copy [facility] Chart Complete MTDD
--- NOTE | 2016-09-08 08:40 | EDDOCDS ---
Physician Documentation [facility] Name: Uzma Miller Age: 71 yrs Sex: Female : 1945 Arrival Date: 09/03/2016 Time: 22:36 Bed 14 Private MD: Nay Vegas., DO Disposition: 09/04/16 03:20 Discharged to Home/Self Care. Impression: Urinary tract infection, site not specified. - Condition is Stable. - Prescriptions for Cipro 500 mg Oral Tablet - take 1 tablet by ORAL route every 12 hours; 10 tablet. - Medication Reconciliation, Local Pharmacy Hours form. - Follow up: Nay Vegas.; When: 1 - 2 days; Reason: Recheck today's complaints. - Problem is an ongoing problem. - Symptoms have improved. Historical: - Allergies: Ambien (sleep walk); Clonidine (pass out); Codeine Sulfate (Anaphylaxis); Flu Shot; - Home Meds: 1. amitriptyline 100 mg Oral tab once daily HS 2. aspirin 81 mg Oral tab once daily 3. Cymbalta 30 mg Oral cpDR nightly 4. Lamisil 250 mg oral tab 1 tab once daily 5. lisinopril 20 mg Oral tab 1 tab once daily 6. Lyrica 100 mg Oral 3 times per day 7. metformin 500 mg Oral tab 1 tab 2 times per day 8. methadone 10 mg Oral tab 1 tab three times a day 9. oxycodone 10 mg Oral tab 1 tab every 4 hours 10. pravastatin 20 mg oral tab 1 tab once daily 11. ranitidine HCl 300 mg Oral tab 2 times per day 12. Requip 1 mg Oral tab 1 tab daily 13. Skelaxin 800 mg Oral tab 3 times per day 14. Stool Softener 100 mg oral tab 1 tab once daily as needed 15. Synthroid 50 mcg Oral tab 1 tab once daily 16. Vitamin B-12 1,000 mcg Oral tab daily 17. Women's Daily Multivitamin oral 1 tab daily - PMHx: Asthma; Depression; Hernia; Gastric Reflux; Diverticulitis; Migraines; Fibromyalgia; Diabetes - NIDDM: controlled; bowel obstruction; Degenerative disc disease; Carpal Tunnel Syndrome; Chronic Low Back Pain; neurogenic bowel; neurogenic bladder; - PSHx: Appendectomy; Cholecystectomy; Hysterectomy; Ovarian cysts removed; Colostomy and urostomy; Multiple back surgeries; - Social history: Smoking status: Patient states was never smoker of tobacco. No barriers to communication noted, The patient speaks fluent Guatemalan, Speaks appropriately for age. - Family history: Not pertinent. - : The pt / caregiver states he / she is not on anticoagulants. Home medication list is obtained from the patient. - Exposure Risk Screening:: None identified. Vital Signs: 09/03 22:37 BP 184 / 76; Pulse 75; Resp 18; Temp 96.5(O); Pulse Ox 100% on R/A; Weight 81.65 kg / dd6 180.01 lbs (R); Height 5 ft. 3 in. (160.02 cm) (R); 09/04 00:08 BP 136 / 58 (auto/); tm5 00:09 Pulse 56 MON; Resp 18 S; Pulse Ox 97% on R/A; tm5 00:23 BP 135 / 62 (auto/); tm5 00:23 Pulse 56 MON; Pulse Ox 95% ; tm5 00:38 BP 143 / 65 (auto/); tm5 00:38 Pulse 54 MON; Pulse Ox 93% ; tm5 00:53 BP 153 / 67 (auto/); tm5 00:53 Pulse 54 MON; Resp 20 S; Pulse Ox 95% on R/A; tm5 01:08 BP 152 / 68 (auto/); tm5 01:08 Pulse 56 MON; Pulse Ox 96% ; tm5 01:23 BP 162 / 67 (auto/); tm5 01:23 Pulse 54 MON; Resp 18 S; Pulse Ox 95% on R/A; tm5 01:53 BP 136 / 61 (auto/); tm5 01:56 Pulse 62 MON; Pulse Ox 96% ; tm5 02:08 BP 176 / 71 (auto/); tm5 02:08 Pulse 62 MON; Pulse Ox 96% ; tm5 02:23 BP 153 / 68 (auto/); tm5 02:23 Pulse 60 MON; Resp 16 S; Pulse Ox 96% on R/A; Pain 4/10; tm5 02:53 BP 158 / 63 (auto/); tm5 02:53 Pulse 58 MON; Pulse Ox 96% ; tm5 03:08 BP 158 / 68 (auto/); tm5 03:08 Pulse 56 MON; Resp 16 S; Temp 97.8(O); Pulse Ox 94% on R/A; Pain 2/10; tm5 09/03 22:37 Body Mass Index 31.89 (81.65 kg, 160.02 cm) dd6 MDM: 09/03 23:28 IV Saline Lock ordered. cs11 23:28 -Blood Culture (Adults Only), peripheral from different site, or from device/port/PICC cs11 etc. if present ordered. 23:28 Dilaudid - HYDROmorphone 1 mg IVP once ordered. cs11 23:28 cefTRIAXone 1 grams IVPB once over 30 mins; dilute in 50mL of NS or D5W ordered. cs11 23:29 -Blood Culture (Adults Only), peripheral from different site, or from device/port/PICC tmm1 etc. if present complete. 23:29 Lactic Acid (Jain tube on ice) Ordered. EDMS 23:29 CBC with Diff Ordered. EDMS 23:29 MED Profile Ordered. EDMS 23:29 Liver Profile Ordered. EDMS 23:29 Amylase Ordered. EDMS 23:29 Lipase Ordered. EDMS 23:29 Urinalysis Ordered. EDMS 23:29 -Blood Culture Ordered. EDMS 23:30 Urine Culture Ordered. EDMS 23:31 BLOOD CULTURES Ordered. EDMS 09/04 00:21 Financial registration complete. pm4 00:41 CBC with Diff Reviewed. cs11 00:41 MED Profile Reviewed. cs11 00:41 Liver Profile Reviewed. cs11 00:41 Lipase Reviewed. cs11 00:41 Urinalysis Reviewed. cs11 00:41 Lactic Acid (Jain tube on ice) Reviewed. cs11 00:41 Amylase Reviewed. cs11 00:41 [facility] Payment Agreement was scanned into [employer] and attached to record. pm4 00:42 Ciprofloxacin 400 mg IVPB at 200 mL/hr once over 60 mins ordered. cs11 00:43 NS 0.9% 1000 ml IV at bolus once ordered. cs11 00:43 CT ABD & PELVIS: IV Contrast Only Ordered. EDMS 00:54 Dilaudid - HYDROmorphone 1 mg IVP once ordered. tm5 03:17 CT ABD & PELVIS: IV Contrast Only Reviewed. cs11 07:44 T-Sheet-- Draft Copy was scanned into [employer] and attached to record. seh 11:57 Radiology Report was scanned into [employer] and attached to record. gb Administered Medications: 00:14 Drug: Dilaudid - HYDROmorphone 1 mg [hydromorphone 1 mg/mL injection syringe (1 mL)] tm5 Route: IVP; Site: right forearm; 00:54 Follow up: Response: No Adverse Reaction; No significant change. tm5 00:14 Drug: cefTRIAXone 1 grams [ceftriaxone 250 mg solution for injection] Route: IVPB; tm5 Infused Over: 30 mins; Site: right forearm; 00:53 Follow up: IV Status: Completed infusion; IV Intake: 50ml tm5 00:53 Follow up: Response: No Adverse Reaction tm5 00:53 Drug: Ciprofloxacin 400 mg [ciprofloxacin 400 mg/200 mL in 5 % dextrose intravenous tm5 piggyback] Route: IVPB; Rate: 200 mL/hr; Infused Over: 60 mins; Site: right forearm; 02:27 Follow up: IV Status: Completed infusion; IV Intake: 200ml tm5 00:54 Drug: NS 0.9% 1000 ml [sodium chloride 0.9 % intravenous solution] Route: IV; Rate: tm5 bolus; Site: right forearm; 02:27 Follow up: IV Status: Completed infusion; IV Intake: 1000ml tm5 00:59 Drug: Dilaudid - HYDROmorphone 1 mg [hydromorphone 1 mg/mL injection syringe (1 mL)] tm5 Route: IVP; Site: right forearm; 01:28 Follow up: Response: No Adverse Reaction; Pain is decreased tm5 Signatures: Dispatcher [employer] EDCaroline Cruz, Reg Reg gb Heena Anthony RN RN papito3 Basil Colin DO DO cs11 McLear, Virgie, SQUARE DANCE CALLER SQUARE DANCE CALLER tmm1 Nathaly Mckeon Tonya, RN RN tm5 Mau Garza, Reg Reg pm4 The chart was reviewed and I authenticate all verbal orders and agree with the evaluation and treatment provided.Attachments: 00:41 [facility] Payment Agreement pm4 07:44 T-Sheet-- Draft Copy [facility] Chart Complete MTDD
--- NOTE | 2016-09-08 09:33 | EDDOCDS ---
Physician Documentation [facility] Name: Uzma Miller Age: 71 yrs Sex: Female : 1945 Arrival Date: 09/03/2016 Time: 22:36 Bed 14 Private MD: Nay Vegas., DO Disposition: 09/04/16 03:20 Discharged to Home/Self Care. Impression: Urinary tract infection, site not specified. - Condition is Stable. - Prescriptions for Cipro 500 mg Oral Tablet - take 1 tablet by ORAL route every 12 hours; 10 tablet. - Medication Reconciliation, Local Pharmacy Hours form. - Follow up: Nay Vegas.; When: 1 - 2 days; Reason: Recheck today's complaints. - Problem is an ongoing problem. - Symptoms have improved. Historical: - Allergies: Ambien (sleep walk); Clonidine (pass out); Codeine Sulfate (Anaphylaxis); Flu Shot; - Home Meds: 1. amitriptyline 100 mg Oral tab once daily HS 2. aspirin 81 mg Oral tab once daily 3. Cymbalta 30 mg Oral cpDR nightly 4. Lamisil 250 mg oral tab 1 tab once daily 5. lisinopril 20 mg Oral tab 1 tab once daily 6. Lyrica 100 mg Oral 3 times per day 7. metformin 500 mg Oral tab 1 tab 2 times per day 8. methadone 10 mg Oral tab 1 tab three times a day 9. oxycodone 10 mg Oral tab 1 tab every 4 hours 10. pravastatin 20 mg oral tab 1 tab once daily 11. ranitidine HCl 300 mg Oral tab 2 times per day 12. Requip 1 mg Oral tab 1 tab daily 13. Skelaxin 800 mg Oral tab 3 times per day 14. Stool Softener 100 mg oral tab 1 tab once daily as needed 15. Synthroid 50 mcg Oral tab 1 tab once daily 16. Vitamin B-12 1,000 mcg Oral tab daily 17. Women's Daily Multivitamin oral 1 tab daily - PMHx: Asthma; Depression; Hernia; Gastric Reflux; Diverticulitis; Migraines; Fibromyalgia; Diabetes - NIDDM: controlled; bowel obstruction; Degenerative disc disease; Carpal Tunnel Syndrome; Chronic Low Back Pain; neurogenic bowel; neurogenic bladder; - PSHx: Appendectomy; Cholecystectomy; Hysterectomy; Ovarian cysts removed; Colostomy and urostomy; Multiple back surgeries; - Social history: Smoking status: Patient states was never smoker of tobacco. No barriers to communication noted, The patient speaks fluent Mauritian, Speaks appropriately for age. - Family history: Not pertinent. - : The pt / caregiver states he / she is not on anticoagulants. Home medication list is obtained from the patient. - Exposure Risk Screening:: None identified. Vital Signs: 09/03 22:37 BP 184 / 76; Pulse 75; Resp 18; Temp 96.5(O); Pulse Ox 100% on R/A; Weight 81.65 kg / dd6 180.01 lbs (R); Height 5 ft. 3 in. (160.02 cm) (R); 09/04 00:08 BP 136 / 58 (auto/); tm5 00:09 Pulse 56 MON; Resp 18 S; Pulse Ox 97% on R/A; tm5 00:23 BP 135 / 62 (auto/); tm5 00:23 Pulse 56 MON; Pulse Ox 95% ; tm5 00:38 BP 143 / 65 (auto/); tm5 00:38 Pulse 54 MON; Pulse Ox 93% ; tm5 00:53 BP 153 / 67 (auto/); tm5 00:53 Pulse 54 MON; Resp 20 S; Pulse Ox 95% on R/A; tm5 01:08 BP 152 / 68 (auto/); tm5 01:08 Pulse 56 MON; Pulse Ox 96% ; tm5 01:23 BP 162 / 67 (auto/); tm5 01:23 Pulse 54 MON; Resp 18 S; Pulse Ox 95% on R/A; tm5 01:53 BP 136 / 61 (auto/); tm5 01:56 Pulse 62 MON; Pulse Ox 96% ; tm5 02:08 BP 176 / 71 (auto/); tm5 02:08 Pulse 62 MON; Pulse Ox 96% ; tm5 02:23 BP 153 / 68 (auto/); tm5 02:23 Pulse 60 MON; Resp 16 S; Pulse Ox 96% on R/A; Pain 4/10; tm5 02:53 BP 158 / 63 (auto/); tm5 02:53 Pulse 58 MON; Pulse Ox 96% ; tm5 03:08 BP 158 / 68 (auto/); tm5 03:08 Pulse 56 MON; Resp 16 S; Temp 97.8(O); Pulse Ox 94% on R/A; Pain 2/10; tm5 09/03 22:37 Body Mass Index 31.89 (81.65 kg, 160.02 cm) dd6 MDM: 09/03 23:28 IV Saline Lock ordered. cs11 23:28 -Blood Culture (Adults Only), peripheral from different site, or from device/port/PICC cs11 etc. if present ordered. 23:28 Dilaudid - HYDROmorphone 1 mg IVP once ordered. cs11 23:28 cefTRIAXone 1 grams IVPB once over 30 mins; dilute in 50mL of NS or D5W ordered. cs11 23:29 -Blood Culture (Adults Only), peripheral from different site, or from device/port/PICC tmm1 etc. if present complete. 23:29 Lactic Acid (Jain tube on ice) Ordered. EDMS 23:29 CBC with Diff Ordered. EDMS 23:29 MED Profile Ordered. EDMS 23:29 Liver Profile Ordered. EDMS 23:29 Amylase Ordered. EDMS 23:29 Lipase Ordered. EDMS 23:29 Urinalysis Ordered. EDMS 23:29 -Blood Culture Ordered. EDMS 23:30 Urine Culture Ordered. EDMS 23:31 BLOOD CULTURES Ordered. EDMS 09/04 00:21 Financial registration complete. pm4 00:41 CBC with Diff Reviewed. cs11 00:41 MED Profile Reviewed. cs11 00:41 Liver Profile Reviewed. cs11 00:41 Lipase Reviewed. cs11 00:41 Urinalysis Reviewed. cs11 00:41 Lactic Acid (Jain tube on ice) Reviewed. cs11 00:41 Amylase Reviewed. cs11 00:41 [facility] [place] Payment Agreement was scanned into [employer] and attached to record. pm4 00:42 Ciprofloxacin 400 mg IVPB at 200 mL/hr once over 60 mins ordered. cs11 00:43 NS 0.9% 1000 ml IV at bolus once ordered. cs11 00:43 CT ABD & PELVIS: IV Contrast Only Ordered. EDMS 00:54 Dilaudid - HYDROmorphone 1 mg IVP once ordered. tm5 03:17 CT ABD & PELVIS: IV Contrast Only Reviewed. cs11 07:44 T-Sheet-- Draft Copy was scanned into [employer] and attached to record. seh 11:57 Radiology Report was scanned into [employer] and attached to record. gb Administered Medications: 00:14 Drug: Dilaudid - HYDROmorphone 1 mg [hydromorphone 1 mg/mL injection syringe (1 mL)] tm5 Route: IVP; Site: right forearm; 00:54 Follow up: Response: No Adverse Reaction; No significant change. tm5 00:14 Drug: cefTRIAXone 1 grams [ceftriaxone 250 mg solution for injection] Route: IVPB; tm5 Infused Over: 30 mins; Site: right forearm; 00:53 Follow up: IV Status: Completed infusion; IV Intake: 50ml tm5 00:53 Follow up: Response: No Adverse Reaction tm5 00:53 Drug: Ciprofloxacin 400 mg [ciprofloxacin 400 mg/200 mL in 5 % dextrose intravenous tm5 piggyback] Route: IVPB; Rate: 200 mL/hr; Infused Over: 60 mins; Site: right forearm; 02:27 Follow up: IV Status: Completed infusion; IV Intake: 200ml tm5 00:54 Drug: NS 0.9% 1000 ml [sodium chloride 0.9 % intravenous solution] Route: IV; Rate: tm5 bolus; Site: right forearm; 02:27 Follow up: IV Status: Completed infusion; IV Intake: 1000ml tm5 00:59 Drug: Dilaudid - HYDROmorphone 1 mg [hydromorphone 1 mg/mL injection syringe (1 mL)] tm5 Route: IVP; Site: right forearm; 01:28 Follow up: Response: No Adverse Reaction; Pain is decreased tm5 Signatures: Dispatcher [employer] EDCaroline Cruz, Reg Reg gb Heena Anthony RN RN papito3 Basil Colin DO DO cs11 McLear, Virgie, ELECTRON BEAM WELDER SETTER ELECTRON BEAM WELDER SETTER tmm1 Nathaly Mckeon Tonya, RN RN tm5 Mau Garza, Reg Reg pm4 The chart was reviewed and I authenticate all verbal orders and agree with the evaluation and treatment provided.Attachments: 00:41 [facility] [place] [facility] Payment Agreement pm4 07:44 T-Sheet-- Draft Copy [facility] Chart Complete MTDD
--- NOTE | 2016-09-08 09:33 | EDDOCDS ---
Physician Documentation [facility] Name: Uzma Miller Age: 71 yrs Sex: Female : 1945 Arrival Date: 09/03/2016 Time: 22:36 Bed 14 Private MD: [place]ay [place]., DO Disposition: 09/04/16 03:20 Discharged to Home/Self Care. Impression: Urinary tract infection, site not specified. - Condition is Stable. - Prescriptions for Cipro 500 mg Oral Tablet - take 1 tablet by ORAL route every 12 hours; 10 tablet. - Medication Reconciliation, Local Pharmacy Hours form. - Follow up: Nay [place].; When: 1 - 2 days; Reason: Recheck today's complaints. - Problem is an ongoing problem. - Symptoms have improved. Historical: - Allergies: Ambien (sleep walk); Clonidine (pass out); Codeine Sulfate (Anaphylaxis); Flu Shot; - Home Meds: 1. amitriptyline 100 mg Oral tab once daily HS 2. aspirin 81 mg Oral tab once daily 3. Cymbalta 30 mg Oral cpDR nightly 4. Lamisil 250 mg oral tab 1 tab once daily 5. lisinopril 20 mg Oral tab 1 tab once daily 6. Lyrica 100 mg Oral 3 times per day 7. metformin 500 mg Oral tab 1 tab 2 times per day 8. methadone 10 mg Oral tab 1 tab three times a day 9. oxycodone 10 mg Oral tab 1 tab every 4 hours 10. pravastatin 20 mg oral tab 1 tab once daily 11. ranitidine HCl 300 mg Oral tab 2 times per day 12. Requip 1 mg Oral tab 1 tab daily 13. Skelaxin 800 mg Oral tab 3 times per day 14. Stool Softener 100 mg oral tab 1 tab once daily as needed 15. Synthroid 50 mcg Oral tab 1 tab once daily 16. Vitamin B-12 1,000 mcg Oral tab daily 17. Women's Daily Multivitamin oral 1 tab daily - PMHx: Asthma; Depression; Hernia; Gastric Reflux; Diverticulitis; Migraines; Fibromyalgia; Diabetes - NIDDM: controlled; bowel obstruction; Degenerative disc disease; Carpal Tunnel Syndrome; Chronic Low Back Pain; neurogenic bowel; neurogenic bladder; - PSHx: Appendectomy; Cholecystectomy; Hysterectomy; Ovarian cysts removed; Colostomy and urostomy; Multiple back surgeries; - Social history: Smoking status: Patient states was never smoker of tobacco. No barriers to communication noted, The patient speaks fluent Omani, Speaks appropriately for age. - Family history: Not pertinent. - : The pt / caregiver states he / she is not on anticoagulants. Home medication list is obtained from the patient. - Exposure Risk Screening:: None identified. Vital Signs: 09/03 22:37 BP 184 / 76; Pulse 75; Resp 18; Temp 96.5(O); Pulse Ox 100% on R/A; Weight 81.65 kg / dd6 180.01 lbs (R); Height 5 ft. 3 in. (160.02 cm) (R); 09/04 00:08 BP 136 / 58 (auto/); tm5 00:09 Pulse 56 MON; Resp 18 S; Pulse Ox 97% on R/A; tm5 00:23 BP 135 / 62 (auto/); tm5 00:23 Pulse 56 MON; Pulse Ox 95% ; tm5 00:38 BP 143 / 65 (auto/); tm5 00:38 Pulse 54 MON; Pulse Ox 93% ; tm5 00:53 BP 153 / 67 (auto/); tm5 00:53 Pulse 54 MON; Resp 20 S; Pulse Ox 95% on R/A; tm5 01:08 BP 152 / 68 (auto/); tm5 01:08 Pulse 56 MON; Pulse Ox 96% ; tm5 01:23 BP 162 / 67 (auto/); tm5 01:23 Pulse 54 MON; Resp 18 S; Pulse Ox 95% on R/A; tm5 01:53 BP 136 / 61 (auto/); tm5 01:56 Pulse 62 MON; Pulse Ox 96% ; tm5 02:08 BP 176 / 71 (auto/); tm5 02:08 Pulse 62 MON; Pulse Ox 96% ; tm5 02:23 BP 153 / 68 (auto/); tm5 02:23 Pulse 60 MON; Resp 16 S; Pulse Ox 96% on R/A; Pain 4/10; tm5 02:53 BP 158 / 63 (auto/); tm5 02:53 Pulse 58 MON; Pulse Ox 96% ; tm5 03:08 BP 158 / 68 (auto/); tm5 03:08 Pulse 56 MON; Resp 16 S; Temp 97.8(O); Pulse Ox 94% on R/A; Pain 2/10; tm5 09/03 22:37 Body Mass Index 31.89 (81.65 kg, 160.02 cm) dd6 MDM: 09/03 23:28 IV Saline Lock ordered. cs11 23:28 -Blood Culture (Adults Only), peripheral from different site, or from device/port/PICC cs11 etc. if present ordered. 23:28 Dilaudid - HYDROmorphone 1 mg IVP once ordered. cs11 23:28 cefTRIAXone 1 grams IVPB once over 30 mins; dilute in 50mL of NS or D5W ordered. cs11 23:29 -Blood Culture (Adults Only), peripheral from different site, or from device/port/PICC tmm1 etc. if present complete. 23:29 Lactic Acid (Jain tube on ice) Ordered. EDMS 23:29 CBC with Diff Ordered. EDMS 23:29 MED Profile Ordered. EDMS 23:29 Liver Profile Ordered. EDMS 23:29 Amylase Ordered. EDMS 23:29 Lipase Ordered. EDMS 23:29 Urinalysis Ordered. EDMS 23:29 -Blood Culture Ordered. EDMS 23:30 Urine Culture Ordered. EDMS 23:31 BLOOD CULTURES Ordered. EDMS 09/04 00:21 Financial registration complete. pm4 00:41 CBC with Diff Reviewed. cs11 00:41 MED Profile Reviewed. cs11 00:41 Liver Profile Reviewed. cs11 00:41 Lipase Reviewed. cs11 00:41 Urinalysis Reviewed. cs11 00:41 Lactic Acid (Jain tube on ice) Reviewed. cs11 00:41 Amylase Reviewed. cs11 00:41 [facility] [place] was scanned into [employer] and attached to record. pm4 00:42 Ciprofloxacin 400 mg IVPB at 200 mL/hr once over 60 mins ordered. cs11 00:43 NS 0.9% 1000 ml IV at bolus once ordered. cs11 00:43 CT ABD & PELVIS: IV Contrast Only Ordered. EDMS 00:54 Dilaudid - HYDROmorphone 1 mg IVP once ordered. tm5 03:17 CT ABD & PELVIS: IV Contrast Only Reviewed. cs11 07:44 T-Sheet-- Draft Copy was scanned into [employer] and attached to record. seh 11:57 Radiology Report was scanned into [employer] and attached to record. gb Administered Medications: 00:14 Drug: Dilaudid - HYDROmorphone 1 mg [hydromorphone 1 mg/mL injection syringe (1 mL)] tm5 Route: IVP; Site: right forearm; 00:54 Follow up: Response: No Adverse Reaction; No significant change. tm5 00:14 Drug: cefTRIAXone 1 grams [ceftriaxone 250 mg solution for injection] Route: IVPB; tm5 Infused Over: 30 mins; Site: right forearm; 00:53 Follow up: IV Status: Completed infusion; IV Intake: 50ml tm5 00:53 Follow up: Response: No Adverse Reaction tm5 00:53 Drug: Ciprofloxacin 400 mg [ciprofloxacin 400 mg/200 mL in 5 % dextrose intravenous tm5 piggyback] Route: IVPB; Rate: 200 mL/hr; Infused Over: 60 mins; Site: right forearm; 02:27 Follow up: IV Status: Completed infusion; IV Intake: 200ml tm5 00:54 Drug: NS 0.9% 1000 ml [sodium chloride 0.9 % intravenous solution] Route: IV; Rate: tm5 bolus; Site: right forearm; 02:27 Follow up: IV Status: Completed infusion; IV Intake: 1000ml tm5 00:59 Drug: Dilaudid - HYDROmorphone 1 mg [hydromorphone 1 mg/mL injection syringe (1 mL)] tm5 Route: IVP; Site: right forearm; 01:28 Follow up: Response: No Adverse Reaction; Pain is decreased tm5 Signatures: Dispatcher [employer] EDCaroline Cruz, Reg Reg gb Heena Anthony RN RN [email or web address] Basil Colin DO DO cs11 McLear, Virgie, DENTAL APPLIANCE FIXER DENTAL APPLIANCE FIXER tmm1 Nathaly Mckeon Tonya, RN RN tm5 Mau Garza, Reg Reg pm4 The chart was reviewed and I authenticate all verbal orders and agree with the evaluation and treatment provided.Attachments: 00:41 [facility] [place] Agreement pm4 07:44 T-Sheet-- Draft Copy [facility] Chart Complete MTDD
== END 2016-09-04 03:35 | disposition home or self-care (01) ==
LOC: M ED 22:36
DX: N39.0 Urinary tract infection, site not specified (principal); E11.9 Type 2 diabetes mellitus without complications; J45.909 Unspecified asthma, uncomplicated; F32.9 Major depressive disorder, single episode, unspecified; K21.9 Gastro-esophageal reflux disease without esophagitis; G43.909 Migraine, unspecified, not intractable, without status migrainosus; M79.7 Fibromyalgia; M51.9 Unspecified thoracic, thoracolumbar and lumbosacral intervertebral disc disorder; M54.5 Low back pain; G89.29 Other chronic pain; K46.9 Unspecified abdominal hernia without obstruction or gangrene; N31.9 Neuromuscular dysfunction of bladder, unspecified; K59.2 Neurogenic bowel, not elsewhere classified; G56.00 Carpal tunnel syndrome, unspecified upper limb; Z87.19 Personal history of other diseases of the digestive system; Z79.899 Other long term (current) drug therapy; Z79.82 Long term (current) use of aspirin; Z79.52 Long term (current) use of systemic steroids; Z79.84 Long term (current) use of oral hypoglycemic drugs; Z79.891 Long term (current) use of opiate analgesic; Z88.2 Allergy status to sulfonamides; Z88.5 Allergy status to narcotic agent; Z88.8 Allergy status to other drugs, medicaments and biological substances; Z88.7 Allergy status to serum and vaccine
CPT/HCPCS: 36415; 74177; 80048; 80076; 81001; 82150; 83605; 83690; 85025; 87040; 87088; 87186; 96365; 96367; 96375; 96376; 99284; J0696; J0744; J1170; Q9967

== ENCOUNTER → 2016-10-05 | Outpatient (CLI) | payer MEDICARE, BC ==
[~2016-10-05] MED LIST changes: +BACT800T5 PO; +CIPR250T3 PO; +CIPROFLOXACIN 500 MG TAB As Ordered ONE; +ISOVUE-300 61% 50ML VIAL (Q9967) As Ordered ONE; +LIDOCAINE 2% MDV 20 ML VIAL As Ordered ONE; +SODIUM BICARBONATE 8.4% INJ 50MEQ 50 ML VIAL As Ordered ONE; +fentaNYL 100 MCG/2 ML INJECTION (J3010) As Ordered ONE
--- NOTE | 2016-10-05 16:50 | REPKIM ---
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 Recent history of UTI. Patient presents for bilateral retrograde nephroureteral catheter (stent) check and change. PROCEDURE PERFORMED: Nephrostogram, Bilateral Transileal Retrograde Nephroureteal Drainage Catheter (Stent) Check and Change INTERVENTIONALIST: Niko Clarke MD CONSENT: The risks, benefits and alternatives to the procedure were explained to the patient and informed written consent was obtained. EBL: less than 1mL MEDICATIONS: Local Lidocaine, Fentanyl 100 mcg IV and Cipro CONTRAST: 15 mL Isovue 300 FLUORO TIME: 5.1 minutes DEVICES USED: 10F 45cm Nephroureteral Catheter on the Right and 12F 45cm Nephroureteral Catheter on the Left PROCEDURE/FINDINGS: NEPHROSTOGRAM/LOOPOGRAM: The patient was brought to the interventional radiology suite where a timeout procedure was performed. The patient was placed in the supine position. The indwelling catheters and ileal conduit prepped and draped in the usual sterile fashion. Contrast was injected through the each existing transileal NU catheter. This showed the left NU catheter with its curl in the proximal ureter. Hydronephrosis noted on the left. BILATERAL TRANSILEAL NEPHROURETERAL DRAINAGE CATHETER (STENT) CHANGE: A 0.035 guidewire was advanced through the existing 8.5F retrograde NU catheter on the right. The existing catheter was unlocked and removed over the guidewire. Then a new 10-Peruvian nephroureteral drainage catheter (stent) was advanced over the guidewire, and its tip was positioned in the renal pelvis. The guidewire was removed and the distal loop of the drainage catheter formed and locked in the renal pelvis. Contrast was gently hand injected, confirming satisfactory drainage catheter positioning. A guidewire was advanced through the existing 10F NU drainage catheter on the left. A guidewire was then advanced into the renal pelvis. A sample of urine sent for c/s. A 12-Peruvian nephroureteral drainage catheter was then introduced over the guidewire, and its tip was positioned in renal pelvis. The guidewire was removed and the distal loop of the drainage catheter was formed and locked in the renal pelvis. Each retrograde NU catheter (stent) was flushed then its hub left out in the ileal conduit stoma. The patient tolerated the procedure well with no immediate complications. This procedure was performed using fluoroscopy. IMPRESSION: Successful bilateral transileal retrograde nephroureteral drainage catheter (stent) replacement as discussed above. Plan: Routine maintenance catheter check/change in approximately 8-10 weeks or earlier if signs of tube dysfunction were to occur. A sample of the urine sent for c/s. cc: DO Yane Hays NP MTDD
== END | disposition home or self-care (01) ==
LOC: M IRPRO 12:51
DX: N13.1 Hydronephrosis with ureteral stricture, not elsewhere classified (principal); Z87.440 Personal history of urinary (tract) infections
CPT/HCPCS: 50688; 75984; 81001; 87088; 87186; C1729; C1769; C1887; J3010; Q9967

== ENCOUNTER 2016-10-10 12:14 | Emergency (ER) | payer MEDICARE, BC ==
[~2016-10-10 12:14] MED LIST changes: -CIPROFLOXACIN 500 MG TAB As Ordered ONE; -ISOVUE-300 61% 50ML VIAL (Q9967) As Ordered ONE; -LIDOCAINE 2% MDV 20 ML VIAL As Ordered ONE; -SODIUM BICARBONATE 8.4% INJ 50MEQ 50 ML VIAL As Ordered ONE; -fentaNYL 100 MCG/2 ML INJECTION (J3010) As Ordered ONE
[2016-10-10] MEDS ORDERED: METOCLOPRAMIDE INJ 10MG/2ML VIAL (J2765) As Ordered ONE (15:12)
--- NOTE | 2016-10-10 16:04 | REP ---
Clinical: Deformity and swelling. Technique: AP, lateral, bilateral oblique views of the right hand. Findings: Age-related osteopenia and osteoarthritic degenerative changes are appreciated. No obvious acute fracture dislocation. No subcutaneous emphysema or radiodense foreign body. Impression: Osteopenia and degenerative changes. No acute fracture or dislocation. Signed by Esa Bolanos MD 10/10/2016 03:54 P
--- NOTE | 2016-10-10 16:25 | REP ---
Clinical: Right upper extremity pain and swelling . Technique: Jain scale and color Doppler evaluation using linear high frequency transducer. Findings: Ultrasound examination of the right upper extremity deep venous structures from the jugular, subclavian, axillary, brachial, cephalic and basilic veins demonstrates normal compressibility flow and wave patterns in response to respiration and augmentation. There is no evidence for deep venous thrombosis. Impression: No evidence for deep venous thrombosis of the right upper extremity. Signed by Esa Bolanos MD 10/10/2016 04:15 P
[2016-10-10 16:49] LABS: BASO % 0.3 % (0.0-1.0); EOS # 0.1 K/mm3 (0.0-0.50); EOS % 1.5 % (0.0-3.0); LARGE UNSTAINED CELL # 0.2 K/mm3 (0.0-0.4); LARGE UNSTAINED CELL % 2.6 % (0.0-4.0); LYMPH # 1.6 K/mm3 (1.5-4.5); LYMPH % 18.9 % (24.0-44.0); MEAN CORPUSCULAR HEMOGLOBIN 26.2 pg (27.0-33.0); MEAN CORPUSCULAR HGB CONC 31.9 g/dl (32.0-36.5); MEAN CORPUSCULAR VOLUME 82.2 fl (80.0-96.0); MONO # 0.5 K/mm3 (0.0-0.8); MONO % 7.1 % (0.0-5.0); NEUTROPHILS # 5.2 K/mm3 (1.8-7.7); NEUTROPHILS % 69.8 % (36.0-66.0); PLATELET COUNT, AUTOMATED 185 k/mm3 (150-450); RED CELL DISTRIBUTION WIDTH 15.5 % (11.5-14.5); WHITE BLOOD COUNT 7.4 K/mm3 (4.0-10.0)
[2016-10-10 17:12] LABS: ALBUMIN 2.6 GM/DL (3.2-5.2); ALBUMIN/GLOBULIN RATIO 0.68 (1.00-1.93); BILIRUBIN,DIRECT 0.2 MG/DL (0.0-0.2); BILIRUBIN,TOTAL 0.3 MG/DL (0.2-1.0); CALCIUM LEVEL 7.9 MG/DL (8.8-10.2); CREATININE FOR GFR 2.29 MG/DL (0.55-1.02); GLOMERULAR FILTRATION RATE 22.3 (>39); POTASSIUM SERUM 4.2 MEQ/L (3.5-5.1); TOTAL PROTEIN 6.4 GM/DL (6.4-8.2)
--- NOTE | 2016-10-10 18:20 | ECGEPIP ---
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
[2016-10-10] MEDS ORDERED: MORPHINE 4 MG/ML 1ML SYRINGE As Ordered ONE (18:40)
[2016-10-10] MEDS ORDERED: ONDANSETRON 4MG/2ML VIAL (J2405) As Ordered ONE (18:40)
--- NOTE | 2016-10-10 22:29 | EDDOCDS ---
Nurse's Notes [facility] Name: Uzma Miller Age: 71 yrs Sex: Female : 1945 Arrival Date: 10/10/2016 Time: 12:14 Bed I7 / 29 Private MD: Nay Vegas., DO Diagnosis: Acute kidney failure;Other hydronephrosis-Left due to Ureterolithiasis;Pain in right hand-Athritis and Osteopenia Presentation: 10/10 12:20 Presenting complaint: Patient states: right hand and arm pain. swollen. also both sides srm of abdomen hurt. nausea and vomited a couple of times yesterday no diarrhea. Adult Sepsis Screening: The patient does not have new or worsening altered mentation. Patient's respiratory rate is less than 22. Systolic blood pressure is greater than 100. Patient has a qSOFA score of 0- Negative Sepsis Screen. Suicide/Homicide risk assessment- the patient denies having any suicidal and/or homicidal ideations and does not present with any other emotional, behavioral or mental health complaints. 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 Transition of care: patient was not received from another setting of care. 12:20 Acuity: NAREN Level 3 srm 12:20 Method Of Arrival: Walkin/Carried/[facility] Triage Assessment: 12:24 General: Appears in no apparent distress, Behavior is appropriate for age, cooperative. srm Pain: Pain currently is 7 out of 10 on a pain scale. GI: Reports both sides of abdomen pain. Historical: - Allergies: Ambien (sleep walk); Clonidine (pass out); Codeine Sulfate (Anaphylaxis); Flu Shot; - Home Meds: 1. amitriptyline 100 mg Oral tab once daily HS 2. aspirin 81 mg Oral tab once daily 3. Lamisil 250 mg oral tab 1 tab once daily 4. lisinopril 20 mg Oral tab 1 tab once daily 5. Lyrica 100 mg Oral 3 times per day 6. metformin 500 mg Oral tab 1 tab 2 times per day 7. methadone 10 mg Oral tab 1 tab three times a day 8. pravastatin 20 mg oral tab 1 tab once daily 9. ranitidine HCl 300 mg Oral tab 2 times per day 10. Requip 1 mg Oral tab 1 tab daily 11. Skelaxin 800 mg Oral tab 3 times per day 12. Stool Softener 100 mg oral tab 1 tab once daily as needed 13. Synthroid 50 mcg Oral tab 1 tab once daily 14. Women's Daily Multivitamin oral 1 tab daily 15. Vitamin B-12 1,000 mcg Oral tab daily 16. Bactrim DS 800-160 mg Oral tab 1 tab 2 times per day for kidney infection- dr baker started her on medicine tuesday - PMHx: Asthma; bowel obstruction; Carpal Tunnel Syndrome; Chronic Low Back Pain; Degenerative disc disease; Depression; Diabetes - NIDDM: controlled; Diverticulitis; Fibromyalgia; Gastric Reflux; Hernia; Migraines; neurogenic bladder; neurogenic bowel; kidney failure; - PSHx: Appendectomy; Cholecystectomy; Hysterectomy; Ovarian cysts removed; Colostomy and urostomy; Multiple back surgeries; - Social history: Smoking status: Patient states was never smoker of tobacco. No barriers to communication noted, The patient speaks fluent Kyrgyz, Speaks appropriately for age. - Family history: Not pertinent. - : The pt / caregiver states he / she is not on anticoagulants. Home medication list is obtained from the patient. - Exposure Risk Screening:: None identified. Screenin:19 Infection Control. [facility] 15:23 Screening information is obtained from the patient. Fall risk: No risks identified. pml Assistance ADL's: requires no assistance with activities of daily living. Abuse/DV Screen: The patient / caregiver reports he/she is: not in a situation that causes fear, pain or injury. Nutritional screening: No deficits noted. Advance Directives: Currently, there is no health care proxy. home support is adequate. Assessment: 15:23 General: Appears in no apparent distress, Behavior is appropriate for age, cooperative. pml Pain: Location: abdomen. Neurological: Level of Consciousness is awake, alert, Oriented to person, place, time. Cardiovascular: Capillary refill < 3 seconds. Respiratory: Airway is patent Respiratory effort is even, unlabored. GI: Abdomen is non- distended Bowel sounds present X 4 quads. Abd is soft X 4 quads Reports cramping, nausea. Derm: Skin is pink, warm & dry. Swollen area noted on right hand. 16:28 General: resting on stretcher, resps easy and unlabored, skin p/w/d. reports abdominal pml pain and nausea persist. 17:30 General: Appears in no apparent distress, Behavior is appropriate for age, cooperative. pml Neurological: Level of Consciousness is awake, alert, Oriented to person, place, time. Cardiovascular: Capillary refill < 3 seconds. Derm: Skin is pink, warm & dry. 18:26 General: resting on stretcher, resps easy and unlabored, skin p/w/d. . pml 18:46 General: pt reports increased abdominal pain 7/10. medicated as indicated on emar. pml 19:50 General: Appears in no apparent distress, comfortable, Behavior is appropriate for age, jo3 cooperative. Neurological: Level of Consciousness is awake, alert, Oriented to person, place, time. Respiratory: Airway is patent Respiratory effort is even, unlabored. Derm: Skin is pink, warm & dry. 20:45 General: Appears in no apparent distress, comfortable, Behavior is appropriate for age, jo3 cooperative, quiet. Neurological: Level of Consciousness is awake, alert, Oriented to person, place, time. Respiratory: No deficits noted. Airway is patent Respiratory effort is even, unlabored. Derm: Skin is pink, warm & dry. 21:51 General: Appears in no apparent distress, comfortable, Behavior is appropriate for age, jo3 cooperative. Neurological: Level of Consciousness is awake, alert, Oriented to person, place, time. Respiratory: Airway is patent Respiratory effort is even, unlabored. Derm: Skin is pink, warm & dry. Vital Signs: 12:16 BP 116 / 59; Pulse 80; Resp 18; Temp 98.9; Pulse Ox 100% ; Weight 81.65 kg; Height 5 jlm ft. 5 in. (165.10 cm); Pain 7/10; 19:02 BP 108 / 57; Pulse 68; Resp 16; Temp 98.6(O); Pulse Ox 95% on R/A; Pain 7/10; sew 22:21 BP 117 / 55; Pulse 65; Resp 18; Temp 98.5(O); Pulse Ox 94% on R/A; Pain 8/10; rn1 12:16 Body Mass Index 29.95 (81.65 kg, 165.10 cm) [facility] Vitals: 12:16 Log In Time: October 10, 2016 at 12:16. [facility] ED Course: 12:15 Patient visited by Sophie Sabillon, Finance Broker. [facility] 12:15 Nay Vegas. is Private Physician. jlm 12:15 Patient moved to Waiting jlm 12:17 Patient visited by Sophie Sabillon, Finance Broker. jlm 12:18 Patient moved to Pre RCE jlm 12:21 Triage Initiated srm 14:26 Patient moved to Triage 1 sew 14:43 Patient moved to TR8 cjh 14:44 Patient moved to Triage 1 cjh 14:47 Argentina Plummer [facility] ef1 14:47 Ashley Lamar MD is Attending Physician. ef1 14:47 Patient visited by Argentina Plummer PA-C. ef1 14:48 EKG done. (by ED staff). Reviewed by Argentina Plummer PA-C. sew 14:49 Patient visited by Nathaly Casanova. sew 15:06 Patient moved to I7 srm 15:23 The patient / caregiver is instructed regarding the plan of care and ED course. Patient pml has correct armband on for positive identification. Placed in gown. Bed in low position. Call light in reach. Side rails up X2. 15:23 Inserted peripheral IV: 20gauge IV in right hand Patient tolerated the procedure well. pml 15:24 Patient visited by Argentina Plummer PA-C. ef1 15:25 Patient visited by Rema David RN. pml 15:41 [facility] Payment Agreement was scanned into [employer] and attached to record. lg 15:43 Patient moved to Ultrasound br3 16:05 Patient moved to I7 br3 16:10 Patient visited by Argentina Plummer PA-C. ef1 16:28 Hand, Complete Returned. EDMS 16:28 DVT US Upper Returned. EDMS 16:29 Patient visited by Rema David RN. pml 17:17 Patient visited by Argentina Plummer PA-C. ef1 17:43 Patient visited by Argentina Plummer PA-C. ef1 18:09 Patient visited by Argentina Plumemr PA-C. ef1 18:27 Patient visited by Rema David RN. pml 18:33 EKG-ADULT Returned. EDMS 18:46 Patient visited by Rema David RN. pml 19:03 Patient visited by Nathaly Casanova. sew 20:45 No procedures done that require assistance. jo3 Administered Medications: 15:23 Drug: Metoclopramide 10 mg [metoclopramide 5 mg/mL injection solution] Route: IV; Rate: pml 40 mg/hr; Infused Over: 15 mins; Site: right hand; 19:00 Follow up: IV Status: Completed infusion jo3 15:23 Drug: NS 0.9% 250 ml [sodium chloride 0.9 % injection solution] Route: IV; Rate: bolus; pml Site: right forearm; 15:48 Follow up: IV Status: Completed infusion; IV Intake: 250ml pml 18:44 Drug: Ondansetron 4 mg [ondansetron HCl 2 mg/mL intravenous solution (2 mL)] Route: pml IVP; Site: right forearm; 18:45 Drug: morphine 4 mg [morphine 4 mg/mL intravenous cartridge (1 mL)] Route: IVP; Site: pml right forearm; Point of Care Testing: Blood Glucose: 14:41 Blood Glucose: 104 mg/dL; srm Ranges: Intake: 15:48 IV: 250.00ml; Total: 250.00ml. pml Order Results: Lab Order: Fingerstick Blood Sugar; SPEC' 10/10/16 14:36 Test: BEDSIDE GLUCOSE; Value: 104; Range: 83-110; Units: MG/DL; Status: F Lab Order: Amylase; [facility]' 10/10/16 16:40 Test: AMYLASE; Value: 25; Range: 25-115; Units: U/L; Status: F Lab Order: Basic Metabolic Profile; [facility]' 10/10/16 16:40 Test: GLUCOSE, FASTING; Value: 122; Range: 83-110; Abnormal: Above high normal; Units: MG/DL; Status: F Test: BLOOD UREA NITROGEN; Value: 29; Range: 7-18; Abnormal: Above high normal; Units: MG/DL; Status: F Test: CREATININE FOR GFR; Value: 2.29; Range: 0.55-1.02; Abnormal: Above high normal; Units: MG/DL; Status: F Test: GLOMERULAR FILTRATION RATE; Value: 22.3; Range: >39; Abnormal: Below low normal; Status: F Test: SODIUM LEVEL; Value: 137; Range: 136-145; Units: MEQ/L; Status: F Test: POTASSIUM SERUM; Value: 4.2; Range: 3.5-5.1; Units: MEQ/L; Status: F Test: CHLORIDE LEVEL; Value: 104; Range: 98-107; Units: MEQ/L; Status: F Test: CARBON DIOXIDE LEVEL; Value: 22; Range: 21-32; Units: MEQ/L; Status: F Test: ANION GAP; Value: 11; Range: 8-16; Units: MEQ/L; Status: F Test: CALCIUM LEVEL; Value: 7.9; Range: 8.8-10.2; Abnormal: Below low normal; Units: MG/DL; Status: F Test Note: ; Units are mL/min/1.73 m2 Chronic Kidney Disease Staging per NKF: Stage I & II GFR >=60 Normal to Mildly Decreased Stage III GFR 30-59 Moderately Decreased Stage IV GFR 15-29 Severely Decreased Stage V GFR <15 Very Little GFR Left ESRD GFR <15 on SHOP REPAIRER Lab Order: CBC with Diff; SPEC'M 10/10/16 16:40 Test: WHITE BLOOD COUNT; Value: 7.4; Range: 4.0-10.0; Units: K/mm3; Status: F Test: RED BLOOD COUNT; Value: 3.70; Range: 4.00-5.40; Abnormal: Below low normal; Units: M/mm3; Status: F Test: HEMOGLOBIN; Value: 9.7; Range: 12.0-16.0; Abnormal: Below low normal; Units: g/dl; Status: F Test: HEMATOCRIT; Value: 30.4; Range: 36.0-47.0; Abnormal: Below low normal; Units: %; Status: F Test: MEAN CORPUSCULAR VOLUME; Value: 82.2; Range: 80.0-96.0; Units: fl; Status: F Test: MEAN CORPUSCULAR HEMOGLOBIN; Value: 26.2; Range: 27.0-33.0; Abnormal: Below low normal; Units: pg; Status: F Test: MEAN CORPUSCULAR HGB CONC; Value: 31.9; Range: 32.0-36.5; Abnormal: Below low normal; Units: g/dl; Status: F Test: RED CELL DISTRIBUTION WIDTH; Value: 15.5; Range: 11.5-14.5; Abnormal: Above high normal; Units: %; Status: F Test: PLATELET COUNT, AUTOMATED; Value: 185; Range: 150-450; Units: k/mm3; Status: F Test: NEUTROPHILS %; Value: 69.8; Range: 36.0-66.0; Abnormal: Above high normal; Units: %; Status: F Test: LYMPH %; Value: 18.9; Range: 24.0-44.0; Abnormal: Below low normal; Units: %; Status: F Test: MONO %; Value: 7.1; Range: 0.0-5.0; Abnormal: Above high normal; Units: %; Status: F Test: EOS %; Value: 1.5; Range: 0.0-3.0; Units: %; Status: F Test: BASO %; Value: 0.3; Range: 0.0-1.0; Units: %; Status: F Test: LARGE UNSTAINED CELL %; Value: 2.6; Range: 0.0-4.0; Units: %; Status: F Test: NEUTROPHILS #; Value: 5.2; Range: 1.8-7.7; Units: K/mm3; Status: F Test: LYMPH #; Value: 1.6; Range: 1.5-4.5; Units: K/mm3; Status: F Test: MONO #; Value: 0.5; Range: 0.0-0.8; Units: K/mm3; Status: F Test: EOS #; Value: 0.1; Range: 0.0-0.50; Units: K/mm3; Status: F Test: BASO #; Value: 0.0; Range: 0.0-0.2; Units: K/mm3; Status: F Test: LARGE UNSTAINED CELL #; Value: 0.2; Range: 0.0-0.4; Units: K/mm3; Status: F Lab Order: Lipase; SPEC'M 10/10/16 16:40 Test: LIPASE; Value: 93; Range: 73-393; Units: U/L; Status: F Lab Order: Liver Profile; SPEC'M 10/10/16 16:40 Test: AST/SGOT; Value: 74; Range: 15-37; Abnormal: Above high normal; Units: U/L; Status: F Test: ALT/SGPT; Value: 44; Range: 12-78; Units: U/L; Status: F Test: ALKALINE PHOSPHATASE; Value: 136; Range: 45-117; Abnormal: Above high normal; Units: U/L; Status: F Test: BILIRUBIN,TOTAL; Value: 0.3; Range: 0.2-1.0; Units: MG/DL; Status: F Test: BILIRUBIN,DIRECT; Value: 0.2; Range: 0.0-0.2; Units: MG/DL; Status: F Test: TOTAL PROTEIN; Value: 6.4; Range: 6.4-8.2; Units: GM/DL; Status: F Test: ALBUMIN; Value: 2.6; Range: 3.2-5.2; Abnormal: Below low normal; Units: GM/DL; Status: F Test: ALBUMIN/GLOBULIN RATIO; Value: 0.68; Range: 1.00-1.93; Abnormal: Below low normal; Status: F Lab Order: Lactic Acid (Jain tube on ice); SPEC'M 10/10/16 16:40 Test: LACTIC ACID SEPSIS PROTOCOL; Value: 1.2; Range: 0.4-2.0; Units: MMOL/L; Status: F Radiology Order: EKG-ADULT Test: EKG-ADULT REASON FOR EXAMINATION: Abdomen Pain; Stationary ECG Study; [facility] - ED; ; Test Date: 2016-10-10; Pat Name: UZMA MILLER Department:; Room: -; Gender: F 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; : 1945 Requested By: Argentina Plummer PA-C; Order Number: [id number] Reading MD: Yonis Ojeda; Measurements; Intervals [place]; Rate: 68 P: 81; [place]: 202 QRS: 40; QRSD: 89 T: 51; QT: 416; QTc: 443; Interpretive Statements; SINUS RHYTHM WITH SINUS ARRHYTHMIA; POSSIBLE PRIOR LATERAL INFARCT; ; Electronically Signed On 10-10-2016 18:20:34 EST by Yonis Ojeda; Radiology Order: DVT US Upper Test: DVT US Upper REASON FOR EXAMINATION: Deformity/Swelling; Clinical: Right upper extremity pain and swelling .; ; Technique: Jain scale and color Doppler evaluation using linear high frequency; transducer.; ; Findings:; Ultrasound examination of the right upper extremity deep venous structures from; the jugular, subclavian, axillary, brachial, cephalic and basilic veins; demonstrates normal compressibility flow and wave patterns in response to; respiration and augmentation. There is no evidence for deep venous thrombosis.; ; Impression:; No evidence for deep venous thrombosis of the right upper extremity.; ; ; Signed by; Esa Bolanos MD 10/10/2016 04:15 P; Radiology Order: Hand, Complete Test: Hand, Complete REASON FOR EXAMINATION: Deformity/Swelling; Clinical: Deformity and swelling.; ; Technique: AP, lateral, bilateral oblique views of the right hand.; ; Findings:; Age-related osteopenia and osteoarthritic degenerative changes are appreciated.; No obvious acute fracture dislocation. No subcutaneous emphysema or radiodense; foreign body.; ; Impression:; Osteopenia and degenerative changes. No acute fracture or dislocation.; ; ; Signed by; Esa Bolanos MD 10/10/2016 03:54 P; Outcome: 18:42 ER care complete, transfer ordered by Provider. ef1 19:03 Admission hand-off: Report called to [facility] ADVERTISEMENT COMPOSITORGENNA Conley. pml 20:45 Discharge Assessment: Patient awake, alert and oriented x 3. No cognitive and/or jo3 functional deficits noted. Patient verbalized understanding of disposition instructions. patient administered narcotics -. 21:55 The following High Risk Discharge criteria are identified: None. Transferred to [address] by EMS ground [facility] ambulance report to accompanying personnel Sudha Avalos, Level 3 and Jimmy Lim, Basic . Condition: stable. Property :Personal belongings accompany Pt. 21:56 CT Study completed. jo3 22:28 Patient left the ED. corina Signatures: Dispatcher [employer] EDMS Rosalba Ashraf, RN Priya Richter RN Kady Amin RN RN dls Ganter, LoriLee, Johnathan Reg lg Heena AnthonyRN RN jo3 Argentina Plummer, PA-C PA-C ef1 Ruby Crystal br3 Rema David RN RN pml Hafner, JaneRN RN becca Casanova, Sophie Contreras, Finance Broker Unit Albert Guadalupe rn1 MTDD
--- NOTE | 2016-10-10 22:29 | EDDOCDS ---
Physician Documentation [facility] Name: Uzma Miller Age: 71 yrs Sex: Female : 1945 Arrival Date: 10/10/2016 Time: 12:14 Bed I7 Private MD: Nay Vegas., DO Disposition: 10/10/16 18:42 Transfer ordered to [facility]. Diagnosis are Acute kidney failure, Other hydronephrosis - Left due to Ureterolithiasis, Pain in right hand - Athritis and Osteopenia. - Reason for transfer: Higher level of care. - Accepting physician is Dr Mo, ER (Also spoke with Dr Morales, Uro). - Condition is Stable. - Problem is new. - Symptoms have improved. Historical: - Allergies: Ambien (sleep walk); Clonidine (pass out); Codeine Sulfate (Anaphylaxis); Flu Shot; - Home Meds: 1. amitriptyline 100 mg Oral tab once daily HS 2. aspirin 81 mg Oral tab once daily 3. Lamisil 250 mg oral tab 1 tab once daily 4. lisinopril 20 mg Oral tab 1 tab once daily 5. Lyrica 100 mg Oral 3 times per day 6. metformin 500 mg Oral tab 1 tab 2 times per day 7. methadone 10 mg Oral tab 1 tab three times a day 8. pravastatin 20 mg oral tab 1 tab once daily 9. ranitidine HCl 300 mg Oral tab 2 times per day 10. Requip 1 mg Oral tab 1 tab daily 11. Skelaxin 800 mg Oral tab 3 times per day 12. Stool Softener 100 mg oral tab 1 tab once daily as needed 13. Synthroid 50 mcg Oral tab 1 tab once daily 14. Women's Daily Multivitamin oral 1 tab daily 15. Vitamin B-12 1,000 mcg Oral tab daily 16. Bactrim DS 800-160 mg Oral tab 1 tab 2 times per day for kidney infection- dr baker started her on medicine tuesday - PMHx: Asthma; bowel obstruction; Carpal Tunnel Syndrome; Chronic Low Back Pain; Degenerative disc disease; Depression; Diabetes - NIDDM: controlled; Diverticulitis; Fibromyalgia; Gastric Reflux; Hernia; Migraines; neurogenic bladder; neurogenic bowel; kidney failure; - PSHx: Appendectomy; Cholecystectomy; Hysterectomy; Ovarian cysts removed; Colostomy and urostomy; Multiple back surgeries; - Social history: Smoking status: Patient states was never smoker of tobacco. No barriers to communication noted, The patient speaks fluent Amharic, Speaks appropriately for age. - Family history: Not pertinent. - : The pt / caregiver states he / she is not on anticoagulants. Home medication list is obtained from the patient. - Exposure Risk Screening:: None identified. Vital Signs: 10/10 12:16 BP 116 / 59; Pulse 80; Resp 18; Temp 98.9; Pulse Ox 100% ; Weight 81.65 kg / 180.01 jlm lbs; Height 5 ft. 5 in. (165.10 cm); Pain 7/10; 19:02 BP 108 / 57; Pulse 68; Resp 16; Temp 98.6(O); Pulse Ox 95% on R/A; Pain 7/10; sew 22:21 BP 117 / 55; Pulse 65; Resp 18; Temp 98.5(O); Pulse Ox 94% on R/A; Pain 8/10; rn1 12:16 Body Mass Index 29.95 (81.65 kg, 165.10 cm) [facility] MDM: 14:31 Accucheck ordered. ef1 14:32 ECG WITH READING ER PHYS+CARDIAG ordered. EDMS 14:45 Fingerstick Blood Sugar Ordered. EDMS 14:59 Fingerstick Blood Sugar Reviewed. ef1 15:04 IV Saline Lock ordered. ef1 15:04 Undress patient appropriately for examination ordered. ef1 15:04 Metoclopramide 10 mg IV at 40 mg/hr once over 15 mins ordered. ef1 15:04 NS 0.9% 250 ml IV at bolus once ordered. ef1 15:05 DVT US Upper Ordered. EDMS 15:05 Amylase Ordered. EDMS 15:05 Basic Metabolic Profile Ordered. EDMS 15:05 CBC with Diff Ordered. EDMS 15:05 Lipase Ordered. EDMS 15:05 Liver Profile Ordered. EDMS 15:07 Hand, Complete Ordered. EDMS 15:07 CT ABD & PELVIS: No Contrast Ordered. EDMS 15:07 NOTHING BY MOUTH+DIET ordered. EDMS 15:07 Lactic Acid (Jain tube on ice) Ordered. EDMS 15:29 Financial registration complete. lg 15:41 [facility] [place] [place] Payment Agreement was scanned into [employer] and attached to record. lg 16:54 CBC with Diff Reviewed. ef1 16:54 DVT US Upper Reviewed. ef1 16:54 Hand, Complete Reviewed. ef1 17:17 Basic Metabolic Profile Reviewed. ef1 17:17 Liver Profile Reviewed. ef1 17:17 Amylase Reviewed. ef1 17:17 Lipase Reviewed. ef1 17:17 Lactic Acid (Jain tube on ice) Reviewed. ef1 18:10 Misc Roofing Layer Order ordered. ef1 18:31 morphine 4 mg IVP once ordered. ef1 18:31 Ondansetron 4 mg IVP once ordered. ef1 18:55 [facility] Order complete. ml3 Point of Care Testing: Blood Glucose: 14:41 Blood Glucose: 104 mg/dL; srm Ranges: Administered Medications: 15:23 Drug: Metoclopramide 10 mg [metoclopramide 5 mg/mL injection solution] Route: IV; Rate: pml 40 mg/hr; Infused Over: 15 mins; Site: right hand; 19:00 Follow up: IV Status: Completed infusion jo3 15:23 Drug: NS 0.9% 250 ml [sodium chloride 0.9 % injection solution] Route: IV; Rate: bolus; pml Site: right forearm; 15:48 Follow up: IV Status: Completed infusion; IV Intake: 250ml pml 18:44 Drug: Ondansetron 4 mg [ondansetron HCl 2 mg/mL intravenous solution (2 mL)] Route: pml IVP; Site: right forearm; 18:45 Drug: morphine 4 mg [morphine 4 mg/mL intravenous cartridge (1 mL)] Route: IVP; Site: pml right forearm; Signatures: Dispatcher [employer] EDMS Rosalba Ashraf RN RN [facility] Priya Adams RN RN jan Scott, Debra, RN RN dls Ganter, LoriLee, Johnathan Reg lg Tyson Jo, Felt Carbonizer Unit ml3 Argentina Plummer, PAJustine PAJustine ef1 Rema David RN RN pml Helmerci, Jennifer RN jo3 The chart was reviewed and I authenticate all verbal orders and agree with the evaluation and treatment provided.Corrections: (The following items were deleted from the chart) 15:21 15:05 URINALYSIS+LAB ordered. EDMS EDMS 15:21 15:05 URINE CULTURE+JOAQUIN ordered. EDMS EDMS Attachments: 15:41 [facility] Payment Agreement lg MTDD
--- NOTE | 2016-10-12 23:29 | EDDOCDS ---
Nurse's Notes [facility] Name: Uzma Mitchell Age: 71 yrs Sex: Female : 1945 Arrival Date: 10/10/2016 Time: 12:14 Bed I7 / 29 Private MD: Nay Vegas., DO Diagnosis: Acute kidney failure;Other hydronephrosis-Left due to Ureterolithiasis;Pain in right hand-Athritis and Osteopenia Presentation: 10/10 12:20 Presenting complaint: Patient states: right hand and arm pain. swollen. also both sides srm of abdomen hurt. nausea and vomited a couple of times yesterday no diarrhea. Adult Sepsis Screening: The patient does not have new or worsening altered mentation. Patient's respiratory rate is less than 22. Systolic blood pressure is greater than 100. Patient has a qSOFA score of 0- Negative Sepsis Screen. Suicide/Homicide risk assessment- the patient denies having any suicidal and/or homicidal ideations and does not present with any other emotional, behavioral or mental health complaints. Status: Patient is not a industrial gas service helper or dependent. Transition of care: patient was not received from another setting of care. 12:20 Acuity: NAREN Level 3 srm 12:20 Method Of Arrival: Walkin/Carried/[facility]std [facility] Triage Assessment: 12:24 General: Appears in no apparent distress, Behavior is appropriate for age, cooperative. srm Pain: Pain currently is 7 out of 10 on a pain scale. GI: Reports both sides of abdomen pain. Historical: - Allergies: Ambien (sleep walk); Clonidine (pass out); Codeine Sulfate (Anaphylaxis); Flu Shot; - Home Meds: 1. amitriptyline 100 mg Oral tab once daily HS 2. aspirin 81 mg Oral tab once daily 3. Lamisil 250 mg oral tab 1 tab once daily 4. lisinopril 20 mg Oral tab 1 tab once daily 5. Lyrica 100 mg Oral 3 times per day 6. metformin 500 mg Oral tab 1 tab 2 times per day 7. methadone 10 mg Oral tab 1 tab three times a day 8. pravastatin 20 mg oral tab 1 tab once daily 9. ranitidine HCl 300 mg Oral tab 2 times per day 10. Requip 1 mg Oral tab 1 tab daily 11. Skelaxin 800 mg Oral tab 3 times per day 12. Stool Softener 100 mg oral tab 1 tab once daily as needed 13. Synthroid 50 mcg Oral tab 1 tab once daily 14. Women's Daily Multivitamin oral 1 tab daily 15. Vitamin B-12 1,000 mcg Oral tab daily 16. Bactrim DS 800-160 mg Oral tab 1 tab 2 times per day for kidney infection- dr baker started her on medicine tuesday - PMHx: Asthma; bowel obstruction; Carpal Tunnel Syndrome; Chronic Low Back Pain; Degenerative disc disease; Depression; Diabetes - NIDDM: controlled; Diverticulitis; Fibromyalgia; Gastric Reflux; Hernia; Migraines; neurogenic bladder; neurogenic bowel; kidney failure; - PSHx: Appendectomy; Cholecystectomy; Hysterectomy; Ovarian cysts removed; Colostomy and urostomy; Multiple back surgeries; - Social history: Smoking status: Patient states was never smoker of tobacco. No barriers to communication noted, The patient speaks fluent Czech, Speaks appropriately for age. - Family history: Not pertinent. - : The pt / caregiver states he / she is not on anticoagulants. Home medication list is obtained from the patient. - Exposure Risk Screening:: None identified. Screenin:19 Infection Control. [facility] 15:23 Screening information is obtained from the patient. Fall risk: No risks identified. pml Assistance ADL's: requires no assistance with activities of daily living. Abuse/DV Screen: The patient / caregiver reports he/she is: not in a situation that causes fear, pain or injury. Nutritional screening: No deficits noted. Advance Directives: Currently, there is no health care proxy. home support is adequate. Assessment: 15:23 General: Appears in no apparent distress, Behavior is appropriate for age, cooperative. pml Pain: Location: abdomen. Neurological: Level of Consciousness is awake, alert, Oriented to person, place, time. Cardiovascular: Capillary refill < 3 seconds. Respiratory: Airway is patent Respiratory effort is even, unlabored. GI: Abdomen is non- distended Bowel sounds present X 4 quads. Abd is soft X 4 quads Reports cramping, nausea. Derm: Skin is pink, warm & dry. Swollen area noted on right hand. 16:28 General: resting on stretcher, resps easy and unlabored, skin p/w/d. reports abdominal pml pain and nausea persist. 17:30 General: Appears in no apparent distress, Behavior is appropriate for age, cooperative. pml Neurological: Level of Consciousness is awake, alert, Oriented to person, place, time. Cardiovascular: Capillary refill < 3 seconds. Derm: Skin is pink, warm & dry. 18:26 General: resting on stretcher, resps easy and unlabored, skin p/w/d. . pml 18:46 General: pt reports increased abdominal pain 7/10. medicated as indicated on emar. pml 19:50 General: Appears in no apparent distress, comfortable, Behavior is appropriate for age, jo3 cooperative. Neurological: Level of Consciousness is awake, alert, Oriented to person, place, time. Respiratory: Airway is patent Respiratory effort is even, unlabored. Derm: Skin is pink, warm & dry. 20:45 General: Appears in no apparent distress, comfortable, Behavior is appropriate for age, jo3 cooperative, quiet. Neurological: Level of Consciousness is awake, alert, Oriented to person, place, time. Respiratory: No deficits noted. Airway is patent Respiratory effort is even, unlabored. Derm: Skin is pink, warm & dry. 21:51 General: Appears in no apparent distress, comfortable, Behavior is appropriate for age, jo3 cooperative. Neurological: Level of Consciousness is awake, alert, Oriented to person, place, time. Respiratory: Airway is patent Respiratory effort is even, unlabored. Derm: Skin is pink, warm & dry. Vital Signs: 12:16 BP 116 / 59; Pulse 80; Resp 18; Temp 98.9; Pulse Ox 100% ; Weight 81.65 kg; Height 5 jlm ft. 5 in. (165.10 cm); Pain 7/10; 19:02 BP 108 / 57; Pulse 68; Resp 16; Temp 98.6(O); Pulse Ox 95% on R/A; Pain 7/10; sew 22:21 BP 117 / 55; Pulse 65; Resp 18; Temp 98.5(O); Pulse Ox 94% on R/A; Pain 8/10; rn1 12:16 Body Mass Index 29.95 (81.65 kg, 165.10 cm) [facility] Vitals: 12:16 Log In Time: October 10, 2016 at 12:16. [facility] ED Course: 12:15 Patient visited by Sophie Sabillon, Outpatient Physical Therapist Assistant. [facility] 12:15 Nay Vegas. is Private Physician. jlm 12:15 Patient moved to Waiting jlm 12:17 Patient visited by Sophie Sabillon, Outpatient Physical Therapist Assistant. jlm 12:18 Patient moved to Pre RCE jlm 12:21 Triage Initiated srm 14:26 Patient moved to Triage 1 sew 14:43 Patient moved to TR8 cjh 14:44 Patient moved to Triage 1 cjh 14:47 Argentina Plummer PA-C is PHCP. ef1 14:47 Ashley Lamar MD is Attending Physician. ef1 14:47 Patient visited by Argentina Plummer PA-C. ef1 14:48 EKG done. (by ED staff). Reviewed by Argentina Plummer PA-C. sew 14:49 Patient visited by Nathaly Casanova. sew 15:06 Patient moved to I7 srm 15:23 The patient / caregiver is instructed regarding the plan of care and ED course. Patient pml has correct armband on for positive identification. Placed in gown. Bed in low position. Call light in reach. Side rails up X2. 15:23 Inserted peripheral IV: 20gauge IV in right hand Patient tolerated the procedure well. pml 15:24 Patient visited by Argentina Plummer PA-C. ef1 15:25 Patient visited by Rema David RN. pml 15:41 [facility] Payment Agreement was scanned into [employer] and attached to record. lg 15:43 Patient moved to Ultrasound br3 16:05 Patient moved to I7 br3 16:10 Patient visited by Argentina Plummer PA-C. ef1 16:28 Hand, Complete Returned. EDMS 16:28 DVT US Upper Returned. EDMS 16:29 Patient visited by Rema David RN. pml 17:17 Patient visited by Argentina Plummer PA-C. ef1 17:43 Patient visited by Argentina Plummer PA-C. ef1 18:09 Patient visited by Argentina Plummer PA-C. ef1 18:27 Patient visited by Rema David,GENNA. pml 18:33 EKG-ADULT Returned. EDMS 18:46 Patient visited by Rema David RN. pml 19:03 Patient visited by Nathaly Casanova. sew 20:45 No procedures done that require assistance. jo3 10/11 12:20 T-Sheet-- Draft Copy was scanned into [employer] and attached to record. gb 12:21 Patient visited by Caroline Perez Reg. gb 12:21 ECG/EKG was scanned into [employer] and attached to record. gb 12:21 Radiology Report was scanned into [employer] and attached to record. gb Administered Medications: 10/10 15:23 Drug: Metoclopramide 10 mg [metoclopramide 5 mg/mL injection solution] Route: IV; Rate: pml 40 mg/hr; Infused Over: 15 mins; Site: right hand; 19:00 Follow up: IV Status: Completed infusion jo3 15:23 Drug: NS 0.9% 250 ml [sodium chloride 0.9 % injection solution] Route: IV; Rate: bolus; pml Site: right forearm; 15:48 Follow up: IV Status: Completed infusion; IV Intake: 250ml pml 18:44 Drug: Ondansetron 4 mg [ondansetron HCl 2 mg/mL intravenous solution (2 mL)] Route: pml IVP; Site: right forearm; 18:45 Drug: morphine 4 mg [morphine 4 mg/mL intravenous cartridge (1 mL)] Route: IVP; Site: pml right forearm; Point of Care Testing: Blood Glucose: 14:41 Blood Glucose: 104 mg/dL; srm Ranges: Intake: 15:48 IV: 250.00ml; Total: 250.00ml. pml Order Results: Lab Order: Fingerstick Blood Sugar; SPEC'M 10/10/16 14:36 Test: BEDSIDE GLUCOSE; Value: 104; Range: 83-110; Units: MG/DL; Status: F Lab Order: Amylase; SPEC'M 10/10/16 16:40 Test: AMYLASE; Value: 25; Range: 25-115; Units: U/L; Status: F Lab Order: Basic Metabolic Profile; SPEC'M 10/10/16 16:40 Test: GLUCOSE, FASTING; Value: 122; Range: 83-110; Abnormal: Above high normal; Units: MG/DL; Status: F Test: BLOOD UREA NITROGEN; Value: 29; Range: 7-18; Abnormal: Above high normal; Units: MG/DL; Status: F Test: CREATININE FOR GFR; Value: 2.29; Range: 0.55-1.02; Abnormal: Above high normal; Units: MG/DL; Status: F Test: GLOMERULAR FILTRATION RATE; Value: 22.3; Range: >39; Abnormal: Below low normal; Status: F Test: SODIUM LEVEL; Value: 137; Range: 136-145; Units: MEQ/L; Status: F Test: POTASSIUM SERUM; Value: 4.2; Range: 3.5-5.1; Units: MEQ/L; Status: F Test: CHLORIDE LEVEL; Value: 104; Range: 98-107; Units: MEQ/L; Status: F Test: CARBON DIOXIDE LEVEL; Value: 22; Range: 21-32; Units: MEQ/L; Status: F Test: ANION GAP; Value: 11; Range: 8-16; Units: MEQ/L; Status: F Test: CALCIUM LEVEL; Value: 7.9; Range: 8.8-10.2; Abnormal: Below low normal; Units: MG/DL; Status: F Test Note: ; Units are mL/min/1.73 m2 Chronic Kidney Disease Staging per NKF: Stage I & II GFR >=60 Normal to Mildly Decreased Stage III GFR 30-59 Moderately Decreased Stage IV GFR 15-29 Severely Decreased Stage V GFR <15 Very Little GFR Left ESRD GFR <15 on INSURANCE ADMINISTRATIVE ASSISTANT Lab Order: CBC with Diff; SPEC'M 10/10/16 16:40 Test: WHITE BLOOD COUNT; Value: 7.4; Range: 4.0-10.0; Units: K/mm3; Status: F Test: RED BLOOD COUNT; Value: 3.70; Range: 4.00-5.40; Abnormal: Below low normal; Units: M/mm3; Status: F Test: HEMOGLOBIN; Value: 9.7; Range: 12.0-16.0; Abnormal: Below low normal; Units: g/dl; Status: F Test: HEMATOCRIT; Value: 30.4; Range: 36.0-47.0; Abnormal: Below low normal; Units: %; Status: F Test: MEAN CORPUSCULAR VOLUME; Value: 82.2; Range: 80.0-96.0; Units: fl; Status: F Test: MEAN CORPUSCULAR HEMOGLOBIN; Value: 26.2; Range: 27.0-33.0; Abnormal: Below low normal; Units: pg; Status: F Test: MEAN CORPUSCULAR HGB CONC; Value: 31.9; Range: 32.0-36.5; Abnormal: Below low normal; Units: g/dl; Status: F Test: RED CELL DISTRIBUTION WIDTH; Value: 15.5; Range: 11.5-14.5; Abnormal: Above high normal; Units: %; Status: F Test: PLATELET COUNT, AUTOMATED; Value: 185; Range: 150-450; Units: k/mm3; Status: F Test: NEUTROPHILS %; Value: 69.8; Range: 36.0-66.0; Abnormal: Above high normal; Units: %; Status: F Test: LYMPH %; Value: 18.9; Range: 24.0-44.0; Abnormal: Below low normal; Units: %; Status: F Test: MONO %; Value: 7.1; Range: 0.0-5.0; Abnormal: Above high normal; Units: %; Status: F Test: EOS %; Value: 1.5; Range: 0.0-3.0; Units: %; Status: F Test: BASO %; Value: 0.3; Range: 0.0-1.0; Units: %; Status: F Test: LARGE UNSTAINED CELL %; Value: 2.6; Range: 0.0-4.0; Units: %; Status: F Test: NEUTROPHILS #; Value: 5.2; Range: 1.8-7.7; Units: K/mm3; Status: F Test: LYMPH #; Value: 1.6; Range: 1.5-4.5; Units: K/mm3; Status: F Test: MONO #; Value: 0.5; Range: 0.0-0.8; Units: K/mm3; Status: F Test: EOS #; Value: 0.1; Range: 0.0-0.50; Units: K/mm3; Status: F Test: BASO #; Value: 0.0; Range: 0.0-0.2; Units: K/mm3; Status: F Test: LARGE UNSTAINED CELL #; Value: 0.2; Range: 0.0-0.4; Units: K/mm3; Status: F Lab Order: Lipase; SPEC'M 10/10/16 16:40 Test: LIPASE; Value: 93; Range: 73-393; Units: U/L; Status: F Lab Order: Liver Profile; SPEC'M 10/10/16 16:40 Test: AST/SGOT; Value: 74; Range: 15-37; Abnormal: Above high normal; Units: U/L; Status: F Test: ALT/SGPT; Value: 44; Range: 12-78; Units: U/L; Status: F Test: ALKALINE PHOSPHATASE; Value: 136; Range: 45-117; Abnormal: Above high normal; Units: U/L; Status: F Test: BILIRUBIN,TOTAL; Value: 0.3; Range: 0.2-1.0; Units: MG/DL; Status: F Test: BILIRUBIN,DIRECT; Value: 0.2; Range: 0.0-0.2; Units: MG/DL; Status: F Test: TOTAL PROTEIN; Value: 6.4; Range: 6.4-8.2; Units: GM/DL; Status: F Test: ALBUMIN; Value: 2.6; Range: 3.2-5.2; Abnormal: Below low normal; Units: GM/DL; Status: F Test: ALBUMIN/GLOBULIN RATIO; Value: 0.68; Range: 1.00-1.93; Abnormal: Below low normal; Status: F Lab Order: Lactic Acid (Jain tube on ice); SPEC'M 10/10/16 16:40 Test: LACTIC ACID SEPSIS PROTOCOL; Value: 1.2; Range: 0.4-2.0; Units: MMOL/L; Status: F Radiology Order: EKG-ADULT Test: EKG-ADULT REASON FOR EXAMINATION: Abdomen Pain; Stationary ECG Study; [facility] - ED; ; Test Date: 2016-10-10; Pat Name: UZMA MITCHELL Department:; Room: -; Gender: F Log Getter: anisa; : 1945 Requested By: Argentina Plummer PA-C; Order Number: [id number] Reading MD: Yonis Ojeda; Measurements; Intervals [place]; Rate: 68 P: 81; CT: 202 QRS: 40; QRSD: 89 T: 51; QT: 416; QTc: 443; Interpretive Statements; SINUS RHYTHM WITH SINUS ARRHYTHMIA; POSSIBLE PRIOR LATERAL INFARCT; ; Electronically Signed On 10-10-2016 18:20:34 EST by Yonis Ojeda; Radiology Order: DVT US Upper Test: DVT US Upper REASON FOR EXAMINATION: Deformity/Swelling; Clinical: Right upper extremity pain and swelling .; ; Technique: Jain scale and color Doppler evaluation using linear high frequency; transducer.; ; Findings:; Ultrasound examination of the right upper extremity deep venous structures from; the jugular, subclavian, axillary, brachial, cephalic and basilic veins; demonstrates normal compressibility flow and wave patterns in response to; respiration and augmentation. There is no evidence for deep venous thrombosis.; ; Impression:; No evidence for deep venous thrombosis of the right upper extremity.; ; ; Signed by; Esa Bolanos MD 10/10/2016 04:15 P; Radiology Order: Hand, Complete Test: Hand, Complete REASON FOR EXAMINATION: Deformity/Swelling; Clinical: Deformity and swelling.; ; Technique: AP, lateral, bilateral oblique views of the right hand.; ; Findings:; Age-related osteopenia and osteoarthritic degenerative changes are appreciated.; No obvious acute fracture dislocation. No subcutaneous emphysema or radiodense; foreign body.; ; Impression:; Osteopenia and degenerative changes. No acute fracture or dislocation.; ; ; Signed by; Esa Boalnos MD 10/10/2016 03:54 P; Outcome: 18:42 ER care complete, transfer ordered by Provider. ef1 19:03 Admission hand-off: Report called to Rust HUSBANDRY PERSONGENNA Conley. pml 20:45 Discharge Assessment: Patient awake, alert and oriented x 3. No cognitive and/or jo3 functional deficits noted. Patient verbalized understanding of disposition instructions. patient administered narcotics -. 21:55 The following High Risk Discharge criteria are identified: None. Transferred to [address] by EMS ground [facility] ambulance report to accompanying personnel Sudha Avalos, Level 3 and Jimmy Lim, Basic . Condition: stable. Property :Personal belongings accompany Pt. 21:56 CT Study completed. [facility] 22:28 Patient left the ED. corina Signatures: Dispatcher [employer] EDMS Rosalba Ashraf RN Priya Richter RN RN jan Scott, Debra, RN RN dls Chris, Caroline, Reg Reg gb Rogers Peter, Reg Reg lg Heena Anthony RN RN jo3 Feola, Erica, PA-C PA-C ef1 Ruby Crystal br3 Rema David,RN RN Ellen Breaux,RN RN becca Casanova, Sophie Contreras, Outpatient Physical Therapist Assistant Unit Albert Guadalupe rn1 Chart Complete MTDD
--- NOTE | 2016-10-12 23:29 | EDDOCDS ---
Physician Documentation [facility] Name: Uzma Miller Age: 71 yrs Sex: Female : 1945 Arrival Date: 10/10/2016 Time: 12:14 Bed I7 Private MD: Nay Vegas., DO Disposition: 10/10/16 18:42 Transfer ordered to [facility]. Diagnosis are Acute kidney failure, Other hydronephrosis - Left due to Ureterolithiasis, Pain in right hand - Athritis and Osteopenia. - Reason for transfer: Higher level of care. - Accepting physician is Dr Mo, ER (Also spoke with Dr Morales, Uro). - Condition is Stable. - Problem is new. - Symptoms have improved. Historical: - Allergies: Ambien (sleep walk); Clonidine (pass out); Codeine Sulfate (Anaphylaxis); Flu Shot; - Home Meds: 1. amitriptyline 100 mg Oral tab once daily HS 2. aspirin 81 mg Oral tab once daily 3. Lamisil 250 mg oral tab 1 tab once daily 4. lisinopril 20 mg Oral tab 1 tab once daily 5. Lyrica 100 mg Oral 3 times per day 6. metformin 500 mg Oral tab 1 tab 2 times per day 7. methadone 10 mg Oral tab 1 tab three times a day 8. pravastatin 20 mg oral tab 1 tab once daily 9. ranitidine HCl 300 mg Oral tab 2 times per day 10. Requip 1 mg Oral tab 1 tab daily 11. Skelaxin 800 mg Oral tab 3 times per day 12. Stool Softener 100 mg oral tab 1 tab once daily as needed 13. Synthroid 50 mcg Oral tab 1 tab once daily 14. Women's Daily Multivitamin oral 1 tab daily 15. Vitamin B-12 1,000 mcg Oral tab daily 16. Bactrim DS 800-160 mg Oral tab 1 tab 2 times per day for kidney infection- dr baker started her on medicine tuesday - PMHx: Asthma; bowel obstruction; Carpal Tunnel Syndrome; Chronic Low Back Pain; Degenerative disc disease; Depression; Diabetes - NIDDM: controlled; Diverticulitis; Fibromyalgia; Gastric Reflux; Hernia; Migraines; neurogenic bladder; neurogenic bowel; kidney failure; - PSHx: Appendectomy; Cholecystectomy; Hysterectomy; Ovarian cysts removed; Colostomy and urostomy; Multiple back surgeries; - Social history: Smoking status: Patient states was never smoker of tobacco. No barriers to communication noted, The patient speaks fluent [place], Speaks appropriately for age. - Family history: Not pertinent. - : The pt / caregiver states he / she is not on anticoagulants. Home medication list is obtained from the patient. - Exposure Risk Screening:: None identified. Vital Signs: 10/10 12:16 BP 116 / 59; Pulse 80; Resp 18; Temp 98.9; Pulse Ox 100% ; Weight 81.65 kg / 180.01 jlm lbs; Height 5 ft. 5 in. (165.10 cm); Pain 7/10; 19:02 BP 108 / 57; Pulse 68; Resp 16; Temp 98.6(O); Pulse Ox 95% on R/A; Pain 7/10; sew 22:21 BP 117 / 55; Pulse 65; Resp 18; Temp 98.5(O); Pulse Ox 94% on R/A; Pain 8/10; rn1 12:16 Body Mass Index 29.95 (81.65 kg, 165.10 cm) [facility] MDM: 14:31 Accucheck ordered. ef1 14:32 ECG WITH READING ER PHYS+CARDIAG ordered. EDMS 14:45 Fingerstick Blood Sugar Ordered. EDMS 14:59 Fingerstick Blood Sugar Reviewed. ef1 15:04 IV Saline Lock ordered. ef1 15:04 Undress patient appropriately for examination ordered. ef1 15:04 Metoclopramide 10 mg IV at 40 mg/hr once over 15 mins ordered. ef1 15:04 NS 0.9% 250 ml IV at bolus once ordered. ef1 15:05 DVT US Upper Ordered. EDMS 15:05 Amylase Ordered. EDMS 15:05 Basic Metabolic Profile Ordered. EDMS 15:05 CBC with Diff Ordered. EDMS 15:05 Lipase Ordered. EDMS 15:05 Liver Profile Ordered. EDMS 15:07 Hand, Complete Ordered. EDMS 15:07 CT ABD & PELVIS: No Contrast Ordered. EDMS 15:07 NOTHING BY MOUTH+DIET ordered. EDMS 15:07 Lactic Acid (Jain tube on ice) Ordered. EDMS 15:29 Financial registration complete. lg 15:41 [facility] Payment Agreement was scanned into [employer] and attached to record. lg 16:54 CBC with Diff Reviewed. ef1 16:54 DVT US Upper Reviewed. ef1 16:54 Hand, Complete Reviewed. ef1 17:17 Basic Metabolic Profile Reviewed. ef1 17:17 Liver Profile Reviewed. ef1 17:17 Amylase Reviewed. ef1 17:17 Lipase Reviewed. ef1 17:17 Lactic Acid (Jain tube on ice) Reviewed. ef1 18:10 [facility] Techn[facility] Order ordered. ef1 18:31 morphine 4 mg IVP once ordered. ef1 18:31 Ondansetron 4 mg IVP once ordered. ef1 18:55 [facility] Mechanical Assembly Technician Order complete. ml3 10/11 12:20 T-Sheet-- Draft Copy was scanned into [employer] and attached to record. gb 12:21 ECG/EKG was scanned into [employer] and attached to record. gb 12:21 Radiology Report was scanned into [employer] and attached to record. Point of Care Testing: Blood Glucose: 10/10 14:41 Blood Glucose: 104 mg/dL; srm Ranges: Administered Medications: 15:23 Drug: Metoclopramide 10 mg [metoclopramide 5 mg/mL injection solution] Route: IV; Rate: pml 40 mg/hr; Infused Over: 15 mins; Site: right hand; 19:00 Follow up: IV Status: Completed infusion jo3 15:23 Drug: NS 0.9% 250 ml [sodium chloride 0.9 % injection solution] Route: IV; Rate: bolus; pml Site: right forearm; 15:48 Follow up: IV Status: Completed infusion; IV Intake: 250ml pml 18:44 Drug: Ondansetron 4 mg [ondansetron HCl 2 mg/mL intravenous solution (2 mL)] Route: pml IVP; Site: right forearm; 18:45 Drug: morphine 4 mg [morphine 4 mg/mL intravenous cartridge (1 mL)] Route: IVP; Site: pml right forearm; Signatures: Dispatcher [employer] EDMS Rosalba Ashraf RN RN [facility] Priya Adams RN RN jan Scott, Debra, RN RN dls Barnhardt, Gloria, Reg Reg gb Rogers Peter, Reg Reg lg Tyson Jo, Hot Frame Tender Unit ml3 Argentina Plummer, PA-C PA-C ef1 Rema David RN RN [facility] Heena Anthony RN jo3 The chart was reviewed and I authenticate all verbal orders and agree with the evaluation and treatment provided.Corrections: (The following items were deleted from the chart) 15:21 15:05 URINALYSIS+LAB ordered. EDMS EDMS 15:21 15:05 URINE CULTURE+JOAQUIN ordered. EDMS EDMS Attachments: 15:41 [facility] Payment Agreement 10/11 12:20 T-Sheet-- Draft Copy gb 12:21 ECG/EKG gb Chart Complete MTDD
--- NOTE | 2016-10-12 23:29 | EDDOCDS ---
Physician Documentation [facility] Name: Uzma Miller Age: 71 yrs Sex: Female : 1945 Arrival Date: 10/10/2016 Time: 12:14 Bed I7 Private MD: Nay Vegas., DO Disposition: 10/10/16 18:42 Transfer ordered to [facility]. Diagnosis are Acute kidney failure, Other hydronephrosis - Left due to Ureterolithiasis, Pain in right hand - Athritis and Osteopenia. - Reason for transfer: Higher level of care. - Accepting physician is Dr Mo, ER (Also spoke with Dr Morales, Uro). - Condition is Stable. - Problem is new. - Symptoms have improved. Historical: - Allergies: Ambien (sleep walk); Clonidine (pass out); Codeine Sulfate (Anaphylaxis); Flu Shot; - Home Meds: 1. amitriptyline 100 mg Oral tab once daily HS 2. aspirin 81 mg Oral tab once daily 3. Lamisil 250 mg oral tab 1 tab once daily 4. lisinopril 20 mg Oral tab 1 tab once daily 5. Lyrica 100 mg Oral 3 times per day 6. metformin 500 mg Oral tab 1 tab 2 times per day 7. methadone 10 mg Oral tab 1 tab three times a day 8. pravastatin 20 mg oral tab 1 tab once daily 9. ranitidine HCl 300 mg Oral tab 2 times per day 10. Requip 1 mg Oral tab 1 tab daily 11. Skelaxin 800 mg Oral tab 3 times per day 12. Stool Softener 100 mg oral tab 1 tab once daily as needed 13. Synthroid 50 mcg Oral tab 1 tab once daily 14. Women's Daily Multivitamin oral 1 tab daily 15. Vitamin B-12 1,000 mcg Oral tab daily 16. Bactrim DS 800-160 mg Oral tab 1 tab 2 times per day for kidney infection- dr baker started her on medicine tuesday - PMHx: Asthma; bowel obstruction; Carpal Tunnel Syndrome; Chronic Low Back Pain; Degenerative disc disease; Depression; Diabetes - NIDDM: controlled; Diverticulitis; Fibromyalgia; Gastric Reflux; Hernia; Migraines; neurogenic bladder; neurogenic bowel; kidney failure; - PSHx: Appendectomy; Cholecystectomy; Hysterectomy; Ovarian cysts removed; Colostomy and urostomy; Multiple back surgeries; - Social history: Smoking status: Patient states was never smoker of tobacco. No barriers to communication noted, The patient speaks fluent Upper Sorbian, Speaks appropriately for age. - Family history: Not pertinent. - : The pt / caregiver states he / she is not on anticoagulants. Home medication list is obtained from the patient. - Exposure Risk Screening:: None identified. Vital Signs: 10/10 12:16 BP 116 / 59; Pulse 80; Resp 18; Temp 98.9; Pulse Ox 100% ; Weight 81.65 kg / 180.01 jlm lbs; Height 5 ft. 5 in. (165.10 cm); Pain 7/10; 19:02 BP 108 / 57; Pulse 68; Resp 16; Temp 98.6(O); Pulse Ox 95% on R/A; Pain 7/10; sew 22:21 BP 117 / 55; Pulse 65; Resp 18; Temp 98.5(O); Pulse Ox 94% on R/A; Pain 8/10; rn1 12:16 Body Mass Index 29.95 (81.65 kg, 165.10 cm) [facility] MDM: 14:31 Accucheck ordered. ef1 14:32 ECG WITH READING ER PHYS+CARDIAG ordered. EDMS 14:45 Fingerstick Blood Sugar Ordered. EDMS 14:59 Fingerstick Blood Sugar Reviewed. ef1 15:04 IV Saline Lock ordered. ef1 15:04 Undress patient appropriately for examination ordered. ef1 15:04 Metoclopramide 10 mg IV at 40 mg/hr once over 15 mins ordered. ef1 15:04 NS 0.9% 250 ml IV at bolus once ordered. ef1 15:05 DVT US Upper Ordered. EDMS 15:05 Amylase Ordered. EDMS 15:05 Basic Metabolic Profile Ordered. EDMS 15:05 CBC with Diff Ordered. EDMS 15:05 Lipase Ordered. EDMS 15:05 Liver Profile Ordered. EDMS 15:07 Hand, Complete Ordered. EDMS 15:07 CT ABD & PELVIS: No Contrast Ordered. EDMS 15:07 NOTHING BY MOUTH+DIET ordered. EDMS 15:07 Lactic Acid (Jain tube on ice) Ordered. EDMS 15:29 Financial registration complete. lg 15:41 [facility] Payment Agreement was scanned into [employer] and attached to record. lg 16:54 CBC with Diff Reviewed. ef1 16:54 DVT US Upper Reviewed. ef1 16:54 Hand, Complete Reviewed. ef1 17:17 Basic Metabolic Profile Reviewed. ef1 17:17 Liver Profile Reviewed. ef1 17:17 Amylase Reviewed. ef1 17:17 Lipase Reviewed. ef1 17:17 Lactic Acid (Jain tube on ice) Reviewed. ef1 18:10 [facility] [facility] Order ordered. ef1 18:31 morphine 4 mg IVP once ordered. ef1 18:31 Ondansetron 4 mg IVP once ordered. ef1 18:55 [facility] [employer] Order complete. ml3 10/11 12:20 T-Sheet-- Draft Copy was scanned into [employer] and attached to record. gb 12:21 ECG/EKG was scanned into [employer] and attached to record. gb 12:21 Radiology Report was scanned into [employer] and attached to record. Point of Care Testing: Blood Glucose: 10/10 14:41 Blood Glucose: 104 mg/dL; srm Ranges: Administered Medications: 15:23 Drug: Metoclopramide 10 mg [metoclopramide 5 mg/mL injection solution] Route: IV; Rate: pml 40 mg/hr; Infused Over: 15 mins; Site: right hand; 19:00 Follow up: IV Status: Completed infusion jo3 15:23 Drug: NS 0.9% 250 ml [sodium chloride 0.9 % injection solution] Route: IV; Rate: bolus; pml Site: right forearm; 15:48 Follow up: IV Status: Completed infusion; IV Intake: 250ml pml 18:44 Drug: Ondansetron 4 mg [ondansetron HCl 2 mg/mL intravenous solution (2 mL)] Route: pml IVP; Site: right forearm; 18:45 Drug: morphine 4 mg [morphine 4 mg/mL intravenous cartridge (1 mL)] Route: IVP; Site: pml right forearm; Signatures: Dispatcher [employer] EDMS Rosalba Ashraf RN RN [facility] Priya Adams RN RN jan Scott, Debra, RN RN dls Barnhardt, Gloria, Reg Reg gb Rogers Peter, Reg Reg lg Tyson Jo, [employer] [facility] ml3 Argentina Plummer, PA-C PA-C ef1 Rema David RN RN [facility] Heena Anthony RN jo3 The chart was reviewed and I authenticate all verbal orders and agree with the evaluation and treatment provided.Corrections: (The following items were deleted from the chart) 15:21 15:05 URINALYSIS+LAB ordered. EDMS EDMS 15:21 15:05 URINE CULTURE+JOAQUIN ordered. EDMS EDMS Attachments: 15:41 COUNT INCLUDES THE [facility] Payment Agreement 10/11 12:20 T-Sheet-- Draft Copy gb 12:21 ECG/EKG gb Chart Complete MTDD
--- NOTE | 2016-10-14 13:09 | REP ---
Clinical: Renal colic. Comparison: 09/04/2016, 06/03/2016. Findings: The patient is again noted to be status post bladder resection with bilateral ureteral stents extending through a urostomy along the anterior right abdominal pelvic wall. The right kidney demonstrates chronic perinephric stranding and chronic changes to the renal pelvis and ureter without hydronephrosis. The left kidney demonstrates perinephric stranding and new moderate hydronephrosis despite the left ureteral stent in satisfactory position and there is suggestion for a ureteral stone at the level of the S1 adjacent to the stent (image [id number]). Liver, spleen, pancreas, and bilateral adrenal glands are normal / stable. There is a right adrenal lipoma measuring 1.9 cm which is unchanged. The patient is status post partial colectomy and ileocolic anastomoses with diverting ostomy through the left anterior abdominal wall without evidence for obstruction or acute inflammatory process. No ascites. No free air. Abdominal aorta is normal caliber without aneurysm. Musculoskeletal structures demonstrate age-related degenerative changes. Lung bases demonstrate mild chronic fibroatelectatic change. Impression: 1. Postsurgical changes as described above including bladder resection and urostomy with bilateral ureteral stents. There is evidence for new moderate left hydronephrosis despite the left ureteral stent and a suspected small ureteral calculus in the mid left ureter adjacent to the stent. 2. Chronic changes as described above. 3. No ascites or acute intra-abdominal/pelvic pathology otherwise noted. Signed by Esa Bolanos MD 10/14/2016 01:01 P
== END 2016-10-10 22:28 | disposition short-term general hospital (02) ==
LOC: M ED 12:14
DX: N13.1 Hydronephrosis with ureteral stricture, not elsewhere classified (principal); N17.9 Acute kidney failure, unspecified; M25.541 Pain in joints of right hand; M19.041 Primary osteoarthritis, right hand; M79.89 Other specified soft tissue disorders; M85.841 Other specified disorders of bone density and structure, right hand; G56.00 Carpal tunnel syndrome, unspecified upper limb; J45.909 Unspecified asthma, uncomplicated; E11.9 Type 2 diabetes mellitus without complications; M54.5 Low back pain; M79.7 Fibromyalgia; K21.9 Gastro-esophageal reflux disease without esophagitis; G43.909 Migraine, unspecified, not intractable, without status migrainosus; M51.9 Unspecified thoracic, thoracolumbar and lumbosacral intervertebral disc disorder; K57.92 Diverticulitis of intestine, part unspecified, without perforation or abscess without bleeding; N31.9 Neuromuscular dysfunction of bladder, unspecified; K59.2 Neurogenic bowel, not elsewhere classified; Z79.899 Other long term (current) drug therapy; Z79.82 Long term (current) use of aspirin; Z79.84 Long term (current) use of oral hypoglycemic drugs; Z79.2 Long term (current) use of antibiotics; Z88.8 Allergy status to other drugs, medicaments and biological substances; Z88.5 Allergy status to narcotic agent; Z88.7 Allergy status to serum and vaccine
CPT/HCPCS: 36415; 73130; 74176; 80048; 80076; 82150; 83605; 83690; 85025; 93005; 93971; 96365; 96366; 96375; 99285; J2405; J2765

== ENCOUNTER 2016-10-29 19:59 | Emergency (ER) | payer MEDICARE, BC ==
[~2016-10-29] VITALS: Ht 165.1 cm; Wt 78.5 kg
[2016-10-29] MEDS ORDERED: ONDANSETRON 4MG/2ML VIAL (J2405) IV ONE (22:00)
[2016-10-29] MEDS ORDERED: NS 500 ML IV ONE (22:00)
[2016-10-29] MEDS ORDERED: MORPHINE 4 MG/ML 1ML SYRINGE IV PRN ×2 (22:00→23:45)
[2016-10-29 22:07] LABS: BASO % 0.1 % (0.0-1.0); EOS # 0.1 K/mm3 (0.0-0.50); EOS % 1.4 % (0.0-3.0); LARGE UNSTAINED CELL # 0.2 K/mm3 (0.0-0.4); LARGE UNSTAINED CELL % 2.5 % (0.0-4.0); LYMPH # 1.7 K/mm3 (1.5-4.5); LYMPH % 22.2 % (24.0-44.0); MEAN CORPUSCULAR HEMOGLOBIN 26.6 pg (27.0-33.0); MEAN CORPUSCULAR HGB CONC 31.6 g/dl (32.0-36.5); MEAN CORPUSCULAR VOLUME 84.2 fl (80.0-96.0); MONO # 0.4 K/mm3 (0.0-0.8); MONO % 5.4 % (0.0-5.0); NEUTROPHILS # 5.2 K/mm3 (1.8-7.7); NEUTROPHILS % 68.3 % (36.0-66.0); PLATELET COUNT, AUTOMATED 165 k/mm3 (150-450); RED CELL DISTRIBUTION WIDTH 15.8 % (11.5-14.5); WHITE BLOOD COUNT 7.6 K/mm3 (4.0-10.0)
[2016-10-29 22:23] LABS: ALBUMIN 3.3 GM/DL (3.2-5.2); ALBUMIN/GLOBULIN RATIO 0.69 (1.00-1.93); ALKALINE PHOSPHATASE 108 U/L (45-117); ALT/SGPT 15 U/L (12-78); ANION GAP 7 MEQ/L (8-16); AST/SGOT 22 U/L (15-37); BILIRUBIN,DIRECT < 0.1 MG/DL (0.0-0.2); BILIRUBIN,TOTAL 0.3 MG/DL (0.2-1.0); BLOOD UREA NITROGEN 55 MG/DL (7-18); CALCIUM LEVEL 8.8 MG/DL (8.8-10.2); CARBON DIOXIDE LEVEL 19 MEQ/L (21-32); CHLORIDE LEVEL 108 MEQ/L (98-107); CREATININE FOR GFR 2.94 MG/DL (0.55-1.02); GLOMERULAR FILTRATION RATE 16.7 (>39); GLUCOSE, FASTING 110 MG/DL (83-110); SODIUM LEVEL 134 MEQ/L (136-145); TOTAL PROTEIN 8.1 GM/DL (6.4-8.2)
[2016-10-29 22:25] LABS: POTASSIUM SERUM 6.6 MEQ/L (3.5-5.1)
[2016-10-29] MEDS ORDERED: MORPHINE 2 MG/ML 1ML SYRINGE IV ONE (22:30)
[2016-10-29] MEDS ORDERED: SOD POLYSTYRENE SULFONATE SUSP 15 GM/60 ML UD PO ONE (22:45)
[2016-10-29] MEDS ORDERED: ALBUTEROL SULFATE 2.5 MG/0.5 ML INH NEB SOLN INH ONE (22:45)
--- NOTE | 2016-10-29 23:30 | REPUSA ---
CLINICAL HISTORY: Abdominal pain, renal failure. TECHNIQUE: Multiple axial CT images were obtained through the abdomen and pelvis without administrat ion of oral or IV contrast material. COMMENTS: The liver is of uniform attenuation without mass or defect. There is no intra or extrahepatic biliar y ductal dilatation. The spleen is normal. Status post cholecystectomy. The pancreas is of normal contour and attenuation characteristics. There is no evidence of adrenal mass. The kidneys are normal in size, shape and configuration. There is left renal urinary stent noted. T here is colostomy noted in the left lower quadrant. No renal or ureteral calculi are identified. Th ere is no hydroureter or hydronephrosis. There is no evidence for appendicitis. There is no bowel wall thickening. No evidence for small or large bowel obstruction. There is no evidence of abdominal ascites or lymphadenopathy. Bladder is not identified. Findings are compatible with ileal conduit surgery. There is no pelvic a scites or lymphadenopathy. Images of the lung bases show no evidence of pleural or parenchymal mass. There are no pleural effus ions. The bony structures are free of lytic or blastic lesions. IMPRESSION: No acute abdominal or pelvic pathology. Post surgical changes. Thank you for your kind referral of this patient. We appreciate the opportunity to participate in [facility] patient's care.
[2016-10-30 01:32] VITALS: BP 113/56
--- NOTE | 2016-10-31 06:31 | ECGEPIP ---
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
== END 2016-10-30 01:41 | disposition short-term general hospital (02) ==
LOC: M ED 22:57
DX: N13.1 Hydronephrosis with ureteral stricture, not elsewhere classified (principal); N17.9 Acute kidney failure, unspecified; E87.5 Hyperkalemia; Z87.442 Personal history of urinary calculi; Z93.6 Other artificial openings of urinary tract status; Z93.3 Colostomy status; R94.31 Abnormal electrocardiogram [ECG] [EKG]
CPT/HCPCS: 36415; 74176; 80048; 80076; 83690; 85025; 85610; 85730; 93005; 93041; 96374; 96375; 96376; 99285; J2405

== ENCOUNTER → 2016-10-29 | Outpatient (CLI) | payer MEDICARE, BC ==
[2016-10-29 16:27] LABS: ALBUMIN 3.6 GM/DL (3.2-5.2); ALBUMIN/GLOBULIN RATIO 0.82 (1.00-1.93); BILIRUBIN,DIRECT 0.1 MG/DL (0.0-0.2); BILIRUBIN,TOTAL 0.3 MG/DL (0.2-1.0); CREATININE FOR GFR 2.48 MG/DL (0.55-1.02); GLOMERULAR FILTRATION RATE 20.3 (>39); INR 1.05
[2016-10-29 16:40] LABS: BASO % 0.2 % (0.0-1.0); EOS # 0.1 K/mm3 (0.0-0.50); LARGE UNSTAINED CELL # 0.1 K/mm3 (0.0-0.4); LARGE UNSTAINED CELL % 1.7 % (0.0-4.0); LYMPH # 1.7 K/mm3 (1.5-4.5); LYMPH % 20.8 % (24.0-44.0); MEAN CORPUSCULAR HEMOGLOBIN 25.9 pg (27.0-33.0); MEAN CORPUSCULAR HGB CONC 30.6 g/dl (32.0-36.5); MEAN CORPUSCULAR VOLUME 84.7 fl (80.0-96.0); MONO # 0.4 K/mm3 (0.0-0.8); MONO % 4.7 % (0.0-5.0); NEUTROPHILS # 5.8 K/mm3 (1.8-7.7); NEUTROPHILS % 71.5 % (36.0-66.0); PLATELET COUNT, AUTOMATED 219 k/mm3 (150-450); RED CELL DISTRIBUTION WIDTH 15.7 % (11.5-14.5); WHITE BLOOD COUNT 8.1 K/mm3 (4.0-10.0)
[2016-10-29 17:19] LABS: POTASSIUM SERUM 6.5 MEQ/L (3.5-5.1)
== END ==
LOC: M LAB 13:56
DX: N13.1 Hydronephrosis with ureteral stricture, not elsewhere classified (principal)

== ENCOUNTER 2016-11-14 13:04 | Inpatient (IN) | payer MEDICARE, BC ==
[2016-11-13 23:30] VITALS: BP 138/71
[~2016-11-14] VITALS: Ht 165.1 cm; Wt 81.7 kg
[~2016-11-14 13:04] MED LIST changes: -COLA100C PO; +COLA100C3 PO
[2016-11-14] MEDS ORDERED: LAMI250T3 PO (13:26)
[2016-11-14] MEDS ORDERED: AMIT100TA PO (13:26)
[2016-11-14] MEDS ORDERED: NS 1,000 ML IV SCH (13:52)
--- NOTE | 2016-11-14 14:17 | REP ---
Clinical: cough. Comparison: 11/20/2015. Findings: The mediastinum and cardiac silhouette are stable and within normal limits for portable technique. The lung scott are clear without acute consolidation, effusion, or pneumothorax. Skeletal structures are intact. Impression: Normal portable chest x-ray Signed by Esa Bolanos MD 11/14/2016 02:08 P
[2016-11-14 14:58] LABS: VENOUS O2 SATURATION 67.9 % (60.0-80.0); VENOUS PARTIAL PRESSURE CO2 44.2 mmHg (38.0-50.0); VENOUS PARTIAL PRESSURE O2 37.6 mmHg (30.0-50.0); VENOUS STANDARD HCO3 21.4 MEQ/L; VENOUS TOTAL CO2 24.2 MEQ/L (24.0-28.0)
[2016-11-14 14:59] LABS: BASO % 0.2 % (0.0-1.0); EOS % 0.7 % (0.0-3.0); LARGE UNSTAINED CELL # 0.1 K/mm3 (0.0-0.4); LARGE UNSTAINED CELL % 1.8 % (0.0-4.0); LYMPH # 1.3 K/mm3 (1.5-4.5); LYMPH % 18.8 % (24.0-44.0); MEAN CORPUSCULAR HEMOGLOBIN 26.2 pg (27.0-33.0); MEAN CORPUSCULAR HGB CONC 32.3 g/dl (32.0-36.5); MEAN CORPUSCULAR VOLUME 81.2 fl (80.0-96.0); MONO # 0.5 K/mm3 (0.0-0.8); MONO % 7.5 % (0.0-5.0); NEUTROPHILS # 5.1 K/mm3 (1.8-7.7); PLATELET COUNT, AUTOMATED 298 k/mm3 (150-450); RED CELL DISTRIBUTION WIDTH 16.3 % (11.5-14.5); WHITE BLOOD COUNT 7.1 K/mm3 (4.0-10.0)
[2016-11-14] MEDS ORDERED: FERR325T PO (15:16)
[2016-11-14 15:26] LABS: ALBUMIN 3.4 GM/DL (3.2-5.2); ALBUMIN/GLOBULIN RATIO 0.76 (1.00-1.93); BILIRUBIN,DIRECT 0.1 MG/DL (0.0-0.2); BILIRUBIN,TOTAL 0.3 MG/DL (0.2-1.0); CALCIUM LEVEL 8.5 MG/DL (8.8-10.2); CREATININE FOR GFR 2.7 MG/DL (0.55-1.02); GLOMERULAR FILTRATION RATE 18.4 (>39); POTASSIUM SERUM 3.6 MEQ/L (3.5-5.1); TOTAL PROTEIN 7.9 GM/DL (6.4-8.2)
--- NOTE | 2016-11-14 16:16 | REP ---
Clinical: Abdominal pain. Renal failure. Comparison: 10/29/2016. Findings: The patient is again noted to be status radicle bladder dissection with bilateral nephrostomy tubes and urostomy. The kidneys and demonstrate mild chronic, stable perinephric stranding without hydroureteronephrosis. Liver, spleen, pancreas, bilateral adrenal glands are stable. 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 The patient is status post cholecystectomy. A colostomy is identified in the left anterior abdominal wall. Multiple enteric surgeries are appreciated without evidence for bowel obstruction or obvious acute inflammatory process. No free air. No ascites. No significant retroperitoneal or intraperitoneal adenopathy. Vasculature is grossly normal. Musculoskeletal structures demonstrate degenerative changes without focal osseous abnormality. Lung bases are clear. Impression: Extensive postsurgical changes as described above stable compared to prior examination. No evidence for acute intra-abdominal or pelvic pathology appreciated. Signed by Esa Bolanos MD 11/14/2016 04:08 P
[2016-11-14 16:20] LABS: YEAST LIKE CELL URINE AUTO LARGE
[2016-11-14 16:44] VITALS: O2SAT 78
[2016-11-14] MEDS ORDERED: ONDANSETRON 4MG/2ML VIAL (J2405) IV PRN (18:15)
[2016-11-14] MEDS ORDERED: DOCUSATE SODIUM 100 MG CAP PO PRN (18:15)
[2016-11-14] MEDS ORDERED: HEPARIN SOD (PORCINE) 5000 UNITS/ML VIAL IV PRN (18:15)
[2016-11-14] MEDS ORDERED: HEPARIN DRIP 25,000 UNITS in APPROPRIATE DILUENT 1 EA IV SCH (18:45)
[2016-11-14 18:53] LABS: INR 1.26
--- NOTE | 2016-11-14 18:55 | HPEPDOC ---
General Date of Admission 11/14/16 Chief Complaint The patient is a 71-year-old female admitted with a reason for visit of SOB. History of Present Illness 71-year-old female with past medical history of chronic kidney disease stage 4, hypertension, hypothyroidism, obstructive sleep apnea on CPAP, fibromyalgia, restless leg syndrome, GERD, depression, chronic abdominal pain, history of small bowel obstruction status post ileostomy, urostomy, and history of bilateral hydronephrosis requiring bilateral nephrostomy tube placement. Patient presented to the ER with the chief complaint of increasing dyspnea on exertion over the last 3 days. The patient states that her shortness of breath is associated with palpitations. She denies any chest pain, lightheadedness, dizziness, increased lower extremity swelling, PND, or orthopnea. In addition, the patient denies any recent fevers, chills, cough, or any sick contacts. The patient states that she feels fine at rest, but anytime she makes any movements she develops shortness of breath and starts to feel palpitations. In the ER, the patient was noted to drop to a saturation of high 70s to low 80s on room air. The patient denies any history of COPD, or any other lung disease. A chest x-ray was obtained in the ER, and this did not show any acute findings. Of note , the patient does state that she leads a relatively sedentary lifestyle and sits in her recliner chair for upwards of 3-4 hours daily. She denies any family history of clotting disorders. The hospitalist team was called for admission for further evaluation and workup of the patient's hypoxia. Home Medications Scheduled Amitriptyline HCl (Amitriptyline HCl) 100 Mg Tab 100 MG PO QHS (Reported) Aspirin (Aspirin 81) 81 Mg Tab 81 MG PO QHS (Reported) Cyanocobalamin (Vitamin B-12) 1,000 Mcg Tab 1,000 MCG PO DAILY (Reported) Duloxetine Hcl (Duloxetine HCl) 30 Mg Cap 30 MG PO QHS (Reported) Ferrous Sulfate (Ferrous Sulfate) 325 Mg Tab 325 MG PO DAILY (Reported) Levothyroxine Sodium (Synthroid) 50 Mcg Tab 50 MCG PO QPM (Reported) TAKES AT 3PM Lisinopril (Lisinopril) 20 Mg Tab 20 MG PO QPM (Reported) TAKES AT 3PM Metaxalone (Skelaxin) 800 Mg Tab 800 MG PO TID (Reported) Metformin Hydrochloride (Metformin HCl) 500 Mg Tab 500 MG PO BID (Reported) Methadone HCl (Methadone HCl) 10 Mg Tab 10 MG PO TID (Reported) Multivitamins *[facility] STOCKED* (Thera M Plus *[facility] STOCKED*) 1 Tab Tab 1 TAB PO DAILY (Reported) Pravastatin Sodium (Pravastatin Sodium) 20 Mg Tab 20 MG PO DAILY (Reported) Pregabalin (Lyrica) 100 Mg Cap 100 MG PO TID (Reported) Ranitidine HCl (Ranitidine HCl) 300 Mg Tab 1 TAB PO BID (Reported) Ropinirole Hydrochloride (Ropinirole HCl) 1 Mg Tab 1 MG PO QHS (Reported) Terbinafine HCl (Lamisil) 250 Mg Tab 250 MG PO DAILY (Reported) Scheduled PRN (Lidocaine) 5 % Pad 4 PATCH TOP DAILY PRN PRN PAIN (Reported) APPLY TO NECK Docusate Sodium (Colace) 100 Mg Cap 100 MG PO DAILY PRN PRN CONSTIPATION ( Reported) Allergies Coded Allergies: Codeine (Verified Allergy, Severe, RESP FAILURE,HIVES, 08/14/14) TOLERATES FENTANYL AND OXYDODONE WELL Pneumococcal Vaccine (Verified Allergy, Unknown, 11/25/12) Flu Virus Vaccine (Verified Adverse Reaction, Severe, COMA, 08/14/14) Clonidine (Verified Adverse Reaction, Mild, FAINT, 08/14/14) Corticosteroids (Verified Adverse Reaction, Mild, UNKNOWN STEROID - RESTLESS LEGS, 05/27/16) Quinapril (Verified Adverse Reaction, Mild, PASSED OUT, 11/25/12) TAPE (Verified Adverse Reaction, Mild, BLISTERS, 08/14/14) Zolpidem (Verified Adverse Reaction, Mild, SLEEPWALKING, 08/14/14) Past Medical History Medical History As noted in HPI. Surgical History Small bowel obstruction requiring surgery, placement of ileostomy, urostomy following surgery, and bilateral nephrostomy tubes for bilateral hydronephrosis , Appendectomy, cholecystectomy, spinal fusion 2, hysterectomy Family History Family history of CHF, COPD, cervical cancer Social History * Smoker: Denies Alcohol: Denies Drugs: denies Review of Symptoms Other systems 10 point review of systems negative unless otherwise specified in HPI. Physical Examination General Exam: Positive: Alert, Cooperative, No Acute Distress ENT Exam: Positive: Atraumatic, Mucous membr. moist/pink Neck Exam: Negative: JVD Chest Exam: Positive: Clear to auscultation, Normal air movement Heart Exam: Positive: Normal S1, Normal S2, Rate Normal Telemetry: Positive: Sinus Abdomen Exam: Positive: Other (patient noted to have patent urostomy and ileostomy bags. In addition, patient also noted to have bilateral nephrostomy tubes. No surrounding erythema or tenderness at the sites.), Soft, Negative: Tenderness Extremity Exam: Negative: Swelling, Tenderness Vital Signs As per EMR Laboratory Data Labs 24H Laboratory Tests 2 11/14/16 14:36: Aspartate Amino Transf (AST/SGOT) 22, Alanine Aminotransferase (ALT/SGPT) 20, Alkaline Phosphatase 88, Total Bilirubin 0.3, Direct Bilirubin 0.1, Albumin 3.4 , Albumin/Globulin Ratio 0.76L, Anion Gap 10, White Blood Count 7.1, Red Blood Count 4.36, Hemoglobin 11.4L, Hematocrit 35.4L, Mean Corpuscular Volume 81.2, Mean Corpuscular Hemoglobin 26.2L, Mean Corpuscular Hemoglobin Concent 32.3, Red Cell Distribution Width 16.3H, Platelet Count 298, Neutrophils (%) (Auto) 71.0H, Lymphocytes (%) (Auto) 18.8L, Monocytes (%) (Auto) 7.5H, Eosinophils (%) (Auto) 0.7, Basophils (%) (Auto) 0.2, Neutrophils # (Auto) 5.1, Lymphocytes # ( Auto) 1.3L, Monocytes # (Auto) 0.5, Eosinophils # (Auto) 0.0, Basophils # (Auto ) 0.0, Calcium Level 8.5L, Creatine Kinase MB 1.8, Creatine Kinase MB Relative Index 3.91, Glomerular Filtration Rate 18.4L, Large Unclassified Cells # 0.1, Large Unclassified Cells % 1.8, Total Creatine Kinase 46, Total Protein 7.9, Troponin I 0.02 11/14/16 14:37: B-Type Natriuretic Peptide 32.1, Blood Gas Bicarbonate Standard 21.4, Lactic Acid Level 1.7, Venous Blood Base Excess -3.0L, Venous Blood pH 7.332, Venous Blood Partial Pressure CO2 44.2, Venous Blood Partial Pressure O2 37.6, Venous Blood Total Carbon Dioxide 24.2, Venous Blood HCO3 22.9L, Venous Blood Oxygen Saturation 67.9 3/26/17 16:03: Urine Amorphous Sediment , Urine Appearance TURBIDH, Urine Color YELLOW, Urine pH 5.0, Urine Specific [place] 1.023, Urine Protein 2+H, Urine Glucose (UA) NEGATIVE, Urine Ketones NEGATIVE, Urine Urobilinogen 0.2, Urine Bilirubin NEGATIVE, Urine Leukocyte Esterase 2+H, Urine Bacteria (Auto) 2+H, Urine Blood 2 +H, Urine Calcium Carbonate Cryst(Auto) , Urine Calcium Oxalate Cryst (Auto) , Urine Calcium Phosphate [place] (Auto) , Urine Cellular Casts , Urine Cystine Crystals , Urine Granular Casts (Auto) , Urine Hyaline Casts (Auto) 23, Urine Leucine Crystals , Urine Mucus (Auto) MODERATE, Urine Nitrite NEGATIVE, Urine Oval Fat Bodies (Auto) , Urine RBC (Auto) TNTCH, Urine Renal Epithelial Cells , Urine Sperm (Auto) , Urine Squamous Epithelial Cells 0, Urine Transitional Epithelial Cells , Urine Trichomonas (Auto) , Urine Triple Phosphate Cryst (Auto ) , Urine Tyrosine Crystals , Urine Uric Acid Crystals (Auto) , Urine WBC (Auto ) TNTCH, Urine Waxy Casts (Auto) , Urine Yeast-Like Cells (Auto) LARGEH CBC/BMP Laboratory Tests 11/14/16 14:36 Red Blood Count 4.36, Mean Corpuscular Volume 81.2, Mean Corpuscular Hemoglobin 26.2 L, Mean Corpuscular Hemoglobin Concent 32.3, Red Cell Distribution Width 16.3 H, Neutrophils (%) (Auto) 71.0 H, Lymphocytes (%) (Auto) 18.8 L, Monocytes (%) (Auto) 7.5 H, Eosinophils (%) (Auto) 0.7, Basophils (%) (Auto) 0.2, Neutrophils # (Auto) 5.1, Lymphocytes # (Auto) 1.3 L, Monocytes # (Auto) 0.5, Eosinophils # (Auto) 0.0, Basophils # (Auto) 0.0 Microbiology Microbiology 11/14/16 Blood Culture, Received Pending 11/14/16 Influenza Virus Type A Antigen - Final, Complete 11/14/16 Influenza Virus Type B Antigen - Final, Complete Plan / VTE VTE Prophylaxis Ordered?: Yes Plan Plan Hypoxia of Unclear etiology We will admit the patient to PCU EKG with no acute ST changes Initial troponin negative, we'll trend 3 Chest x-ray with no acute findings, respiratory/influenza panel ordered CT of the chest without contrast also ordered to further delineate possible underlying respiratory disease 2-D echocardiogram ordered Given the patient's sedentary lifestyle, and signs/symptoms of tachycardia, and hypoxia on exertion. She does have a high risk of possible underlying pulmonary embolism. The patient does have chronic kidney disease, which precludes us from getting a CTA of the chest. We will order a VQ scan for the a.m. In the meantime, the patient will be started on a heparin drip, until we can rule out a PE out. Increased risk of bleeding discussed with the patient, and she has acknowledged and verbalized understanding of the risks and benefits associated with this. We will continue to monitor the patient's respiratory status Chronic kidney disease stage 4 Serum creatinine appears to be at baseline Hypertension Continue lisinopril Hypothyroidism Continue levothyroxine Obstructive sleep apnea on CPAP Continue to use home CPAP Fibromyalgia Continue duloxetine, amitriptyline Restless leg syndrome Continue ropinirole GERD Continue PPI Depression Continue duloxetine, amitriptyline Dyslipidemia Continue statin Chronic abdominal pain History of small bowel obstruction status post ileostomy, urostomy History of bilateral hydronephrosis requiring bilateral nephrostomy tube placement Follows with Dr. Anthony of urology in the [place], [place] area DVT prophylaxis-already on heparin drip The patient will be admitted under the service of Dr. Hanna, who will begin to follow the patient on 11/15. CHRISTINE CHEW MD Nov 14, 2016 18:55
[2016-11-14] MEDS ORDERED: HEPARIN SOD (PORCINE) 5000 UNITS/ML VIAL IV ONE (19:00)
--- NOTE | 2016-11-14 19:23 | REP ---
Clinical: Hypoxia. Comparison: 06/04/2016. Findings: The bilateral lung scott are relatively well aerated and clear. Very minimal chronic interstitial changes at the bases and very subtle perihilar bronchiectasis is appreciated. No acute consolidation, nodule or mass lesion. No pleural effusion/reaction or pneumothorax. Tracheobronchial tree is patent. No obvious adenopathy. Mediastinum demonstrates normal thoracic aorta, heart and pericardium. Surrounding musculoskeletal structures demonstrate age-related degenerative changes without focal osseous abnormality. Impression: Minimal chronic bronchiectasis and basilar scarring. No acute mediastinal or pleuroparenchymal process. Signed by Esa Bolanos MD 11/14/2016 07:15 P
[2016-11-14 20:30] VITALS: BP 138/75
[2016-11-14] MEDS: PREGABALIN 100 MG CAP (LYRICA) PO SCH (22:33)
[2016-11-14] MEDS: FAMOTIDINE 20 MG TAB PO SCH (22:33)
[2016-11-14] MEDS: DULoxetine 30 MG CAP (CYMBALTA) PO SCH (22:33)
[2016-11-14] MEDS: AMITRIPTYLINE 50 MG TAB PO SCH (22:34)
[2016-11-14] MEDS: rOPINIRole 1MG TAB PO SCH (22:34)
[2016-11-14] MEDS: LISINOPRIL 20 MG TAB PO SCH (22:34)
[2016-11-14] MEDS: METAXALONE 800 MG TABLET PO SCH (22:34)
[2016-11-14] MEDS: PRAVASTATIN 20 MG TAB PO SCH (22:39)
[2016-11-14] MEDS: TERBINAFINE 250 MG TABLET PO SCH (22:39)
[2016-11-14] MEDS: MULTIVITAMINS/MINERALS THERAP 1 TAB PO SCH (22:40)
[2016-11-15] VITALS (11 sets, daily range): BP systolic 80–125; BP diastolic 47–80
[2016-11-15 05:31] LABS: MEAN CORPUSCULAR HEMOGLOBIN 26.4 pg (27.0-33.0); MEAN CORPUSCULAR HGB CONC 32.2 g/dl (32.0-36.5); RED CELL DISTRIBUTION WIDTH 16.2 % (11.5-14.5); WHITE BLOOD COUNT 5.2 K/mm3 (4.0-10.0)
[2016-11-15 05:46] LABS: ANION GAP 13 MEQ/L (8-16); BLOOD UREA NITROGEN 31 MG/DL (7-18); CALCIUM LEVEL 8.2 MG/DL (8.8-10.2); CARBON DIOXIDE LEVEL 20 MEQ/L (21-32); CHLORIDE LEVEL 109 MEQ/L (98-107); CREATININE FOR GFR 2.12 MG/DL (0.55-1.02); GLOMERULAR FILTRATION RATE 24.4 (>39); GLUCOSE, FASTING 112 MG/DL (83-110); MAGNESIUM LEVEL 1.9 MG/DL (1.8-2.4); POTASSIUM SERUM 3.5 MEQ/L (3.5-5.1); SODIUM LEVEL 142 MEQ/L (136-145)
--- NOTE | 2016-11-15 08:57 | IPNPDOC ---
Subjective Date Seen The patient was seen on 11/15/16. Subjective Chief Complaint/HPI The patient is a 71-year-old female admitted with a reason for visit of Exertional Dyspnea. General: Denies: Chills, Fatigue, Malaise, Night Sweats, Normal Appetite, Other Symptoms, ROS Unobtainable Constitutional: Denies: Chills, Fatigue, Fever, Lethargy, Malaise, Night Sweats , Other, Weakness, Weight Loss Eyes: Denies: Conjunctivae inflammation, Eyelid inflammation, Other, Pain, Redness, Vision change ENT: Denies: Dysphagia, Ear Pain, Epistaxis, Head Aches, Other Symptoms, Post Nasal Drip, Sinus Congestion, Sore Throat Skin: Denies: Breakdown, Bruising, Dry, Itching, Jaundice, Lesions, Nail Changes, Other, Rash Pulmonary: Denies: Cough, Dyspnea, Other Symptoms, Pleuritic Chest Pain Cardiovascular: Denies: Chest Pain, Edema, Lt Headedness, Orthopnea, Other Symptoms, Palpitations, Paroxysmal Noc. Dyspnea Gastrointestinal: Denies: Abdominal Pain, Constipation, Diarrhea, Hematochezia , Melena, Nausea, Other Symptoms, Vomiting Genitourinary: Denies: Dysuria, Frequency, Hematuria, Incontinence, Other Symptoms, Retention Objective Physical Examination General Exam: Positive: Alert, Cooperative, No Acute Distress Eye Exam: Positive: Conjunctiva & lids normal, EOMI, Negative: Sclera icteric ENT Exam: Positive: Atraumatic, Mucous membr. moist/pink Neck Exam: Negative: JVD Chest Exam: Positive: Clear to auscultation, Normal air movement Heart Exam: Positive: Normal S1, Normal S2, Rate Normal Telemetry: Positive: Bradycardia, Sinus Abdomen Exam: Positive: Normal bowel sounds, Other (colostomy, urostomy - area c/d/i), Soft, Negative: Tenderness Extremity Exam: Positive: Other (b/l nephrostomy tubes in place, area c/d/i), Negative: Edema, Swelling, Tenderness Psych Exam: Positive: Oriented x 3 Assessment /Plan Problems (1) Respiratory distress Status: Resolved Discussed With: Patient Problem Specific Plan: Monitor Clinically, Repeat Labs, Repeat Tests Problem Text: Unclear etiology. V/Q scan and echocardiogram pending. Still on heparin gtt for possible PE. She is saturating well on room air this morning. LE dopplers. Addendum: V/Q scan low probability, LE dopplers negative - discontinue heparin gtt (2) CKD (chronic kidney disease) Status: Acute Discussed With: Patient Problem Specific Plan: Monitor Clinically, Repeat Labs, Repeat Tests Problem Text: Acute/chronic kidney disease. Possibly UTI. Start meropenem, cultures pending. IV fluids. CT a/p no obstruction or hydronephrosis. Follows with tool planner in [place]? She is not sure of physicians involved in her care. Creatinine improving from admission. (3) Hypothyroidism Status: Chronic Discussed With: Patient Problem Text: Continue synthroid. (4) RUTHANN on CPAP Status: Chronic Discussed With: Patient (5) Fibromyalgia Status: Chronic Discussed With: Patient Problem Specific Plan: Monitor Clinically (6) Restless leg syndrome Status: Chronic Discussed With: Patient Problem Text: Continue Lyrica. (7) GERD (gastroesophageal reflux disease) Status: Chronic Discussed With: Patient (8) Depression Status: Chronic Discussed With: Patient Problem Text: Continue Cymbalta, Elavil. (9) Small bowel obstruction Onset Date: 06/27/2014 Status: Chronic Discussed With: Patient Problem Specific Plan: Monitor Clinically Problem Text: S/P ileostomy, 1997. (10) Bilateral hydronephrosis Status: Chronic Problem Text: s/p bilateral nephrostomy tubes (11) Presence of urostomy Status: Chronic Discussed With: Patient Problem Specific Plan: Monitor Clinically Problem Text: Follows with urologist Dr. Robert Anthony in [place]. Placed March 2016. (12) Colostomy present Status: Chronic Discussed With: Patient (13) Hypertension Status: Chronic Discussed With: Patient Problem Specific Plan: Monitor Clinically Problem Text: Continue lisinopril. Plan/VTE VTE Prophylaxis Ordered?: Yes (heparin gtt) Plan Diet: Continue Current Activity: Continue Current Therapy: PT, OT Respiratory: Wean Oxygen Diagnostics: Repeat Labs in AM, TTE Anticipated Discharge: Home, Home With Services V/Q scan low probability. Will check lower extremity dopplers, if negative will d/c IV Heparin. UTI? source not clear, likely from urostomy site. cultures pending. Will start ceftriaxone. Addendum: V/Q scan low probability, LE dopplers negative - heparin gtt discontinued VS, I&O, 24H, Fishbone Vital Signs/I&O Vital Signs Date Time Temp Pulse Resp B/P Pulse Ox O2 Delivery O2 Flow Rate FiO2 11/15/16 08:07 97.2 72 18 112/55 100 Room Air I&O- Last 24 Hours up to 6 AM 11/15/16 05:59 Intake Total 300 ml Output Total 550 ml Balance -250 ml Laboratory Data 24H LABS Laboratory Tests 2 11/14/16 14:36: Activated Partial Thromboplast Time 31.2, Aspartate Amino Transf (AST/SGOT) 22, Alanine Aminotransferase (ALT/SGPT) 20, Alkaline Phosphatase 88, Total Bilirubin 0.3, Direct Bilirubin 0.1, Albumin 3.4, Albumin/Globulin Ratio 0.76L, Anion Gap 10, White Blood Count 7.1, Red Blood Count 4.36, Hemoglobin 11.4L, Hematocrit 35.4L, Mean Corpuscular Volume 81.2, Mean Corpuscular Hemoglobin 26.2L, Mean Corpuscular Hemoglobin Concent 32.3, Red Cell Distribution Width 16.3H, Platelet Count 298, Neutrophils (%) (Auto) 71.0H, Lymphocytes (%) (Auto) 18.8L, Monocytes (%) (Auto) 7.5H, Eosinophils (%) (Auto) 0.7, Basophils (%) ( Auto) 0.2, Neutrophils # (Auto) 5.1, Lymphocytes # (Auto) 1.3L, Monocytes # ( Auto) 0.5, Eosinophils # (Auto) 0.0, Basophils # (Auto) 0.0, Calcium Level 8.5L , Creatine Kinase MB 1.8, Creatine Kinase MB Relative Index 3.91, Glomerular Filtration Rate 18.4L, Large Unclassified Cells # 0.1, Large Unclassified Cells % 1.8, Prothromb Time International Ratio 1.26, Prothrombin Time 15.9H, Total Creatine Kinase 46, Total Protein 7.9, Troponin I 0.02 11/14/16 14:37: B-Type Natriuretic Peptide 32.1, Blood Gas Bicarbonate Standard 21.4, Lactic Acid Level 1.7, Venous Blood Base Excess -3.0L, Venous Blood pH 7.332, Venous Blood Partial Pressure CO2 44.2, Venous Blood Partial Pressure O2 37.6, Venous Blood Total Carbon Dioxide 24.2, Venous Blood HCO3 22.9L, Venous Blood Oxygen Saturation 67.9 11/14/16 16:03: Urine Amorphous Sediment , Urine Appearance TURBIDH, Urine Color YELLOW, Urine pH 5.0, Urine Specific Griffin 1.023, Urine Protein 2+H, Urine Glucose (UA) NEGATIVE, Urine Ketones NEGATIVE, Urine Urobilinogen 0.2, Urine Bilirubin NEGATIVE, Urine Leukocyte Esterase 2+H, Urine Bacteria (Auto) 2+H, Urine Blood 2 +H, Urine Calcium Carbonate Cryst(Auto) , Urine Calcium Oxalate Cryst (Auto) , Urine Calcium Phosphate Benita (Auto) , Urine Cellular Casts , Urine Cystine Crystals , Urine Granular Casts (Auto) , Urine Hyaline Casts (Auto) 23, Urine Leucine Crystals , Urine Mucus (Auto) MODERATE, Urine Nitrite NEGATIVE, Urine Oval Fat Bodies (Auto) , Urine RBC (Auto) TNTCH, Urine Renal Epithelial Cells , Urine Sperm (Auto) , Urine Squamous Epithelial Cells 0, Urine Transitional Epithelial Cells , Urine Trichomonas (Auto) , Urine Triple Phosphate Cryst (Auto ) , Urine Tyrosine Crystals , Urine Uric Acid Crystals (Auto) , Urine WBC (Auto ) TNTCH, Urine Waxy Casts (Auto) , Urine Yeast-Like Cells (Auto) LARGEH 11/14/16 20:48: Bedside Glucose (Misc Panel) 169H 11/15/16 01:32: Activated Partial Thromboplast Time 121.1*H, Troponin I < 0.02 11/15/16 04:45: Troponin I < 0.02, Anion Gap 13, Blood Urea Nitrogen 31H, Creatinine 2.12H, Sodium Level 142, Potassium Level 3.5, Chloride Level 109H, Carbon Dioxide Level 20L, Calcium Level 8.2L, Glomerular Filtration Rate 24.4L, Magnesium Level 1.9 CBC/BMP Laboratory Tests 11/14/16 14:36 Red Blood Count 4.36, Mean Corpuscular Volume 81.2, Mean Corpuscular Hemoglobin 26.2 L, Mean Corpuscular Hemoglobin Concent 32.3, Red Cell Distribution Width 16.3 H, Neutrophils (%) (Auto) 71.0 H, Lymphocytes (%) (Auto) 18.8 L, Monocytes (%) (Auto) 7.5 H, Eosinophils (%) (Auto) 0.7, Basophils (%) (Auto) 0.2, Neutrophils # (Auto) 5.1, Lymphocytes # (Auto) 1.3 L, Monocytes # (Auto) 0.5, Eosinophils # (Auto) 0.0, Basophils # (Auto) 0.0 11/15/16 04:45 Red Blood Count 3.67 L, Mean Corpuscular Volume 82.0, Mean Corpuscular Hemoglobin 26.4 L, Mean Corpuscular Hemoglobin Concent 32.2, Red Cell Distribution Width 16.2 H, Calcium Level 8.2 L Microbiology Microbiology 11/14/16 Blood Culture, Received Pending 11/14/16 Blood Culture, Received Pending 11/14/16 Influenza Virus Type A Antigen - Final, Complete 11/14/16 Influenza Virus Type B Antigen - Final, Complete 11/14/16 Respiratory Virus Panel (PCR) (JOAQUIN) - Final, Complete FRENCH SHINE MD Nov 15, 2016 08:57
[2016-11-15] MEDS: FAMOTIDINE 20 MG TAB PO SCH ×2 (09:23→21:48)
[2016-11-15] MEDS: CYANOCOBALAMIN 500 MCG TAB PO SCH (09:23)
[2016-11-15] MEDS: MULTIVITAMINS/MINERALS THERAP 1 TAB PO SCH (09:23)
[2016-11-15] MEDS: METAXALONE 800 MG TABLET PO SCH ×3 (09:23→21:00)
[2016-11-15] MEDS: FERROUS SULFATE 325MG TAB PO SCH (09:23)
[2016-11-15] MEDS: PREGABALIN 100 MG CAP (LYRICA) PO SCH ×3 (09:23→21:48)
[2016-11-15] MEDS: PRAVASTATIN 20 MG TAB PO SCH (09:23)
[2016-11-15] MEDS: TERBINAFINE 250 MG TABLET PO SCH (09:23)
--- NOTE | 2016-11-15 09:32 | ECGEPIP ---
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
--- NOTE | 2016-11-15 11:59 | REP ---
VENTILATION-PERFUSION LUNG SCAN: 11/15/2016. Comparison: Portable chest and CT chest without contrast 11/14/2016. Clinical history: Dyspnea, evaluate for pulmonary embolism. The patient not a candidate for IV contrast. She has bilateral nephrostomies. Technique: The patient received 1 mCi technetium 99m DTPA aerosol for ventilation phase with eight sequential images followed by 5.5 mCi technetium 99m MAA via an IV for perfusion phase of imaging. Findings. Anterior and posterior perfusion images show shape and size of the lungs correspond to that seen on chest x-ray yesterday. I see no evidence of any ventilation-perfusion large matched or mismatched defects. No significant perfusion abnormalities. Impression: 1. Using revised PIOPED lung scan interpretation criteria, low probability for pulmonary thromboembolism. Signed by Geoff Patel MD 11/15/2016 05:40 P
[2016-11-15] MEDS: METHADONE 10 MG TAB (S0109) PO SCH ×4 (12:14→23:28)
[2016-11-15] MEDS: LEVOTHYROXINE 0.05 MG TAB (50 MCG) PO SCH (15:53)
[2016-11-15] MEDS: LISINOPRIL 20 MG TAB PO SCH (15:56)
[2016-11-15] MEDS ORDERED: NS 1,000 ML IV SCH ×2 (16:00→22:15)
--- NOTE | 2016-11-15 16:17 | REP ---
Clinical: Bilateral lower extremity pain . Technique: Jain scale and color Doppler evaluation using linear high frequency transducer. Findings: Ultrasound examination of the right and left lower extremity deep venous structures from the common femoral vein to the popliteal vein demonstrates normal compressibility flow and wave patterns in response to respiration and augmentation. There is no evidence for deep venous thrombosis. 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 Impression: No evidence for deep venous thrombosis of the bilateral lower extremity deep venous structures. Signed by Esa Bolanos MD 11/15/2016 04:08 P
[2016-11-15] MEDS: MEROPENEM INJ 1 GM in D5W MINI-BAG PLUS 100 ML IV SCH (17:21)
[2016-11-15] MEDS ORDERED: NS 500 ML IV ONE (20:30)
--- NOTE | 2016-11-15 21:13 | ECGEPIP ---
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
[2016-11-15] MEDS: rOPINIRole 1MG TAB PO SCH (21:48)
[2016-11-15] MEDS: DULoxetine 30 MG CAP (CYMBALTA) PO SCH (21:48)
[2016-11-15] MEDS: AMITRIPTYLINE 50 MG TAB PO SCH (21:48)
[2016-11-15] MEDS ORDERED: SODIUM CHLORIDE 0.9% 1000 ML IV ONE (22:15)
--- NOTE | 2016-11-15 22:29 | IPN ---
DATE: 11/15/2016 TIME: Around 2100 hours The patient is 71-year-old female presented for exertional dyspnea. At this point, the respiratory distress etiology is unclear. The patient is receiving meropenem for urinary tract infection (UTI). The patient does also have acute on chronic kidney disease. Evening hospitalist and resident were paged due to patient's blood pressure was found to be low. It was 80/50. At this point, etiology is unclear, possibly due to patient receiving lisinopril earlier in the day around 4:00 pm. The patient was given 250 ml of normal saline bolus initially. Later on another 500 mL of normal saline bolus was given. EKG was done and shows no changes from prior. Cardiac marker was done as well shows troponin was less than 0.02. On examination, the patient appeared calm. Denies any chest pain, stating that she feels very dizzy when she stands up and walks. Otherwise, no other complaints. Will continue to monitor the patient on cardiac telemetry. The patient has been discussed with attending doctor, Dr. Ponce. My preceptor for this patient encounter was Dr. Jama Ponce. The preceptor was physically present in the building during the encounter and was fully available. As needed, all aspects of the patient interview, examination, medical decision making process, and medical care plan development were reviewed and approved by the preceptor. The preceptor is aware and concurs with the plan as stated in the body of this note and will attest to such by his/her cosignature.
[2016-11-15] MEDS: NS 1,000 ML IV SCH (23:35)
[2016-11-16] MEDS: MEROPENEM INJ 1 GM in D5W MINI-BAG PLUS 100 ML IV SCH ×2 (03:57→15:33)
[2016-11-16 04:16] VITALS: BP 98/54
[2016-11-16 04:17] LABS: MEAN CORPUSCULAR HEMOGLOBIN 26.6 pg (27.0-33.0); MEAN CORPUSCULAR HGB CONC 32.4 g/dl (32.0-36.5); MEAN CORPUSCULAR VOLUME 82.1 fl (80.0-96.0); RED CELL DISTRIBUTION WIDTH 16.6 % (11.5-14.5); WHITE BLOOD COUNT 5.8 K/mm3 (4.0-10.0)
[2016-11-16 04:34] LABS: CALCIUM LEVEL 7.8 MG/DL (8.8-10.2); CREATININE FOR GFR 1.7 MG/DL (0.55-1.02); GLOMERULAR FILTRATION RATE 31.5 (>39); POTASSIUM SERUM 3.7 MEQ/L (3.5-5.1)
[2016-11-16 08:00] VITALS: BP_SYST 104; BP_SYST 111; BP_SYST 125; BP_DIAS 55; BP_DIAS 58; BP_DIAS 63
[2016-11-16] MEDS: PRAVASTATIN 20 MG TAB PO SCH (08:29)
[2016-11-16] MEDS: FAMOTIDINE 20 MG TAB PO SCH ×2 (08:30→21:07)
[2016-11-16] MEDS: CYANOCOBALAMIN 500 MCG TAB PO SCH (08:30)
[2016-11-16] MEDS: METHADONE 10 MG TAB (S0109) PO SCH ×3 (08:31→21:07)
[2016-11-16] MEDS: PREGABALIN 100 MG CAP (LYRICA) PO SCH ×3 (08:31→21:08)
[2016-11-16] MEDS: METAXALONE 800 MG TABLET PO SCH ×3 (08:31→21:05)
[2016-11-16] MEDS: FERROUS SULFATE 325MG TAB PO SCH (08:31)
[2016-11-16] MEDS: MULTIVITAMINS/MINERALS THERAP 1 TAB PO SCH (08:31)
[2016-11-16] MEDS: TERBINAFINE 250 MG TABLET PO SCH (08:31)
[2016-11-16] MEDS: NS 1,000 ML IV SCH ×2 (08:32→21:05)
--- NOTE | 2016-11-16 08:45 | ECHO ---
DATE OF PROCEDURE: 11/15/2016 REFERRING PHYSICIAN: Dr. Sotero Hemphill INDICATION: Dyspnea. The patient measures 165 cm and weighs 78 kg. DIMENSIONS: IVS 1.1 LV 4.3 LVPW 1.1 LA 2.9 Aorta 2.8 FINDINGS: Study is of fair technical quality with difficult acoustic windows. Left ventricle is normal size and I estimate grossly normal contractility even though visualization was poor estimated EF around 60%. Right ventricle also appears relatively normal. Both atria appear normal. Aortic valve is minimally sclerotic but has normal mobility. Mitral and tricuspid valves appear normal. Pulmonic valve was not well seen but appears normal on limited views. There is no pericardial effusion but prominent pericardial fat pad. Inferior vena cava was poorly seen but based on limited views the caliber is not enlarged. The aortic root is normal. Aortic arch and abdominal aorta were not visualized. Doppler interrogation of aortic valve reveals no stenosis or insufficiency. There is also no significant mitral or tricuspid stenosis or insufficiency. Mitral inflow pattern and tissue Doppler imaging of mitral annulus reveal grade 1 diastolic dysfunction (E wave mitral inflow velocity 45 cm/sec, E prime velocities are 6.6 and 7.3 cm/sec in the septal and lateral mitral annulus respectively). CONCLUSIONS: 1. Study is of fair technical quality. 2. Normal LV size and systolic function, grade 1 diastolic dysfunction. 3. No significant valvular disease. 4. Probably normal central venous pressure. 5. Unable to estimate pulmonary artery pressure. 6. Prominent pericardial fat pad. COMMENT: SBE prophylaxis is not recommended. Study does not provide obvious explanation for dyspnea. MTDD
[2016-11-16 12:00] VITALS: BP 115/66
[2016-11-16] MEDS: LEVOTHYROXINE 0.05 MG TAB (50 MCG) PO SCH (14:28)
--- NOTE | 2016-11-16 15:52 | IPN ---
DATE: 11/16/2016 Ms. Miller is feeling weak and tired. She clearly remembers me from previous encounters. Has no complaints of pain, chest pain, shortness of breath. Is not having a large amount of stooling. Temperature is 97.2, pulse 55, respiratory rate 18, blood pressure 111/63, 98% on room air. Positive fluid balance of +2000. She is awake, appropriately interactive, pleasantly conversant. Breathing is symmetrical, rested. Heart is distant sounding. Abdomen soft, hyperactive bowel sounds, nontender. Trace bilateral lower extremity edema. White cell count 5.8, hemoglobin 9.1, platelets 198. BUN 29, creatinine 1.7. Troponins have been negative. Gastrointestinal (GI) panel is positive for norovirus. Urine culture is still pending. My assessment is as follows: This is a 71-year-old who presented with respiratory distress, found to have norovirus and suspected to have underlying urinary tract infection. Plan will be as follows: 1. The patient has hypotension. Overnight this seems to be resolving with the use of fluids. It is most likely related to underlying infectious etiology which includes norovirus and possibly represents a urinary tract infection. Continue with current antibiotic coverage for possible urinary tract infection (UTI). 2. The patient has chronic kidney disease. Creatinine is improving. 3. The patient presented with respiratory distress that most likely represents increased work of breathing due to infectious etiology. Evidence for pulmonary embolus (PE) is markedly limited and other etiology seems more likely. Heparin drip was stopped last evening. 4. The patient has history of small bowel obstruction status post ileostomy. 5. The patient has bilateral hydronephrosis status post bilateral nephrostomy tubes. 6. The patient has a urostomy.
[2016-11-16 16:00] VITALS: BP 110/78
[2016-11-16 20:30] VITALS: BP_SYST 124; BP_SYST 128; BP_SYST 129; BP_DIAS 61; BP_DIAS 64
[2016-11-16] MEDS: AMITRIPTYLINE 50 MG TAB PO SCH (21:05)
[2016-11-16] MEDS: rOPINIRole 1MG TAB PO SCH (21:05)
[2016-11-16] MEDS: DULoxetine 30 MG CAP (CYMBALTA) PO SCH (21:05)
[2016-11-16 23:59] VITALS: BP 97/56
[2016-11-17] MEDS ORDERED: NALOXONE INJ 0.4 MG/1 ML VIAL (J2310) IV STA (01:03)
[2016-11-17 01:06] LABS: ABG BASE EXCESS -3.1 (-2.0-2.0); ABG HCO3 23.9 MEQ/L (22.0-26.0); ABG PARTIAL PRESSURE CO2 52.9 mmHg (35.0-45.0); ABG PARTIAL PRESSURE O2 100.7 mmHg (75.0-100.0); ABG STANDARD HCO3 21.8 MEQ/L (22.0-26.0); ABG TOTAL CO2 25.5 MEQ/L (23.0-31.0); ABG pH (ARTERIAL) 7.272 UNITS (7.350-7.450)
[2016-11-17] MEDS ORDERED: NALOXONE INJ 0.4 MG/1 ML VIAL (J2310) As Ordered ONE (01:06)
--- NOTE | 2016-11-17 01:22 | IPNPDOC ---
Text Note Date of Service The patient was seen on 11/17/16. NOTE Patient was paged around midnight for becoming more unresponsive. She was examined at bedside, she was completely unresponsive to verbal stimuli and only minimally responsive to pain. Med list were reviewed found that she is on Methadone, therefore 0.1 mg Narcan was given. Patient responded to Narcan immediately and was able to talk and make conversation. Her ABG was done and shows that she is acidotic but at this point it is likely due to slow of her respiratory drive due to narcotics. Will continue to monitor her over night. Will give more Narcan as needed. Patient has been discussed with Dr. Hernandez. VS,Ruma, I+O VS, Ruma, I+O Laboratory Tests 11/16/16 04:07 Calcium Level 7.8 L, Red Blood Count 3.40 L, Mean Corpuscular Volume 82.1, Mean Corpuscular Hemoglobin 26.6 L, Mean Corpuscular Hemoglobin Concent 32.4, Red Cell Distribution Width 16.6 H Vital Signs Date Time Temp Pulse Resp B/P Pulse Ox O2 Delivery O2 Flow Rate FiO2 11/16/16 23:59 98.3 55 20 97/56 93 Room Air I&O- Last 24 Hours up to 6 AM 11/17/16 06:00 Intake Total 1080 ml Output Total 1875 ml Balance -795 ml GME ATTESTATION GME ATTESTATION My preceptor for this patient encounter was physically present in the building during the encounter and was fully available. As needed, all aspects of the patient interview, examination, medical decision making process, and medical care plan development were reviewed and approved by the preceptor. Preceptor is aware and concurs with the plan as stated in the body of this note and will attest to such by his/her cosignature. RALPH MAC DO Nov 17, 2016 01:21 EDILIA HERNANDEZ DO Nov 21, 2016 20:25
[2016-11-17 04:45] VITALS: BP_SYST 129; BP_SYST 153; BP_DIAS 63; BP_DIAS 78
[2016-11-17] MEDS: MEROPENEM INJ 1 GM in D5W MINI-BAG PLUS 100 ML IV SCH (04:50)
[2016-11-17 05:47] LABS: MEAN CORPUSCULAR HEMOGLOBIN 26.9 pg (27.0-33.0); MEAN CORPUSCULAR HGB CONC 32.2 g/dl (32.0-36.5); MEAN CORPUSCULAR VOLUME 83.6 fl (80.0-96.0); RED CELL DISTRIBUTION WIDTH 16.7 % (11.5-14.5); WHITE BLOOD COUNT 4.8 K/mm3 (4.0-10.0)
[2016-11-17 05:59] LABS: ANION GAP 5 MEQ/L (8-16); BLOOD UREA NITROGEN 13 MG/DL (7-18); CALCIUM LEVEL 8.2 MG/DL (8.8-10.2); CARBON DIOXIDE LEVEL 24 MEQ/L (21-32); CHLORIDE LEVEL 115 MEQ/L (98-107); CREATININE FOR GFR 0.87 MG/DL (0.55-1.02); GLOMERULAR FILTRATION RATE > 60.0 (>39); GLUCOSE, FASTING 131 MG/DL (83-110); POTASSIUM SERUM 3.9 MEQ/L (3.5-5.1); SODIUM LEVEL 144 MEQ/L (136-145)
[2016-11-17] MEDS: NS 1,000 ML IV SCH ×2 (06:47→15:30)
--- NOTE | 2016-11-17 06:58 | ECGEPIP ---
Stationary ECG Study 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
[2016-11-17 08:00] VITALS: BP_SYST 130; BP_SYST 140; BP_SYST 80; BP_DIAS 55; BP_DIAS 58; BP_DIAS 60; BP_DIAS 63
[2016-11-17] MEDS: CYANOCOBALAMIN 500 MCG TAB PO SCH (08:54)
[2016-11-17] MEDS: PRAVASTATIN 20 MG TAB PO SCH (08:54)
[2016-11-17] MEDS: MULTIVITAMINS/MINERALS THERAP 1 TAB PO SCH (08:54)
[2016-11-17] MEDS: FERROUS SULFATE 325MG TAB PO SCH (08:54)
[2016-11-17] MEDS: FAMOTIDINE 20 MG TAB PO SCH ×2 (08:54→22:04)
[2016-11-17] MEDS: METAXALONE 800 MG TABLET PO SCH ×3 (08:55→22:04)
[2016-11-17] MEDS: PREGABALIN 100 MG CAP (LYRICA) PO SCH ×4 (08:55→22:04)
[2016-11-17] MEDS: METHADONE 5 MG TAB (S0109) PO SCH ×2 (09:00→22:06)
[2016-11-17] MEDS: TERBINAFINE 250 MG TABLET PO SCH (09:04)
[2016-11-17 12:00] VITALS: BP 131/61
--- NOTE | 2016-11-17 14:07 | IPN ---
DATE: 11/17/2016 Ms. Miller had a period of decreased responsiveness last night and received a dose of Narcan with good effect. This morning she is normally interactive. Remembers me from previous encounters. Has no complaints of pain. Currently no chest pain. She does still feel weak, although she is not short of breath. Temperature 97.2, pulse 53, respiratory rate 18, blood pressure 131/61, 100% on 2 liters nasal cannula. Input and output notable for a negative fluid status of -170 Body surface index (BMI) 28.5. She is awake, appropriately interactive. Tired appearing. Mucous membranes moist. Neck supple. Breathing is symmetrically diminished. I/E ratio is 1:3. No wheezes, rales or rhonchi. Speaking in complete sentences. Heart is in a regular rate and rhythm. No arrhythmia on monitor. Abdomen is soft. Hyperactive bowel sounds. Mild diffuse tenderness. My assessment is as follows: This is a 71-year-old who presented with respiratory distress, found to have norovirus and suspected urinary tract infection. Plan is as follows: 1. The patient's hypotension appears to have resolved, although she did have a period of unresponsiveness last night most likely related to opioid dosing in the setting of acute illness. Will continue with methadone but at a reduced dose in an attempt to provide pain relief and avoid withdrawal. 2. Infectious disease: The patient has norovirus. Continue on IV fluids. She is also receiving a short course of antibiotics for a suspected urinary tract infection. Her urine has grown greater than 100,000 colony forming units of Klebsiella, which is relatively sensitive, and antibiotics can be focused a little more tightly at this point. 3. The patient has chronic kidney disease, creatinine has improved, which should help with the clearance or opioids, which are renally cleared. 4. The patient had presentation of respiratory distress, which appears to have resolved at this point. There was concern initially about the possibility of pulmonary embolism which has passed. 5. The patient has a history of small bowel obstruction, status post ileostomy. 6. The patient has bilateral hydronephrosis, status post bilateral nephrostomy tubes. 7. The patient has a urostomy.
[2016-11-17] MEDS: cefTRIAXone SOD 1 GM in D5W MINI-BAG PLUS 50 ML IV SCH (14:43)
[2016-11-17] MEDS: LEVOTHYROXINE 0.05 MG TAB (50 MCG) PO SCH (14:44)
[2016-11-17 16:00] VITALS: BP 146/64
[2016-11-17 20:00] VITALS: BP 139/63
[2016-11-17] MEDS: DULoxetine 30 MG CAP (CYMBALTA) PO SCH (21:00)
[2016-11-17] MEDS: AMITRIPTYLINE 50 MG TAB PO SCH (22:04)
[2016-11-17] MEDS: rOPINIRole 1MG TAB PO SCH (22:07)
[2016-11-18] VITALS: BP_SYST 129; BP_SYST 132; BP_SYST 144; BP_DIAS 64; BP_DIAS 65; BP_DIAS 67
[2016-11-18] MEDS: NS 1,000 ML IV SCH (03:59)
[2016-11-18 04:00] VITALS: BP 135/63
--- NOTE | 2016-11-18 05:14 | ECGEPIP ---
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
[2016-11-18 05:28] LABS: MEAN CORPUSCULAR HGB CONC 32.9 g/dl (32.0-36.5); RED CELL DISTRIBUTION WIDTH 16.6 % (11.5-14.5)
[2016-11-18 05:43] LABS: ANION GAP 7 MEQ/L (8-16); BLOOD UREA NITROGEN 7 MG/DL (7-18); CALCIUM LEVEL 7.6 MG/DL (8.8-10.2); CARBON DIOXIDE LEVEL 24 MEQ/L (21-32); CHLORIDE LEVEL 113 MEQ/L (98-107); CREATININE FOR GFR 0.66 MG/DL (0.55-1.02); GLOMERULAR FILTRATION RATE > 60.0 (>39); GLUCOSE, FASTING 95 MG/DL (83-110); POTASSIUM SERUM 3.6 MEQ/L (3.5-5.1); SODIUM LEVEL 144 MEQ/L (136-145)
[2016-11-18 08:00] VITALS: BP_SYST 122; BP_SYST 125; BP_SYST 131; BP_DIAS 55; BP_DIAS 61; BP_DIAS 69
[2016-11-18] MEDS: FAMOTIDINE 20 MG TAB PO SCH ×2 (08:43→20:45)
[2016-11-18] MEDS: MULTIVITAMINS/MINERALS THERAP 1 TAB PO SCH (08:43)
[2016-11-18] MEDS: TERBINAFINE 250 MG TABLET PO SCH (08:43)
[2016-11-18] MEDS: FERROUS SULFATE 325MG TAB PO SCH (08:44)
[2016-11-18] MEDS: PREGABALIN 100 MG CAP (LYRICA) PO SCH ×3 (08:46→20:45)
[2016-11-18] MEDS: CYANOCOBALAMIN 500 MCG TAB PO SCH (08:46)
[2016-11-18] MEDS: METAXALONE 800 MG TABLET PO SCH ×3 (08:47→20:45)
[2016-11-18] MEDS: PRAVASTATIN 20 MG TAB PO SCH (08:47)
[2016-11-18] MEDS: METHADONE 5 MG TAB (S0109) PO SCH (08:49)
[2016-11-18] MEDS ORDERED: METHADONE 5 MG TAB (S0109) PO ONE (11:00)
[2016-11-18 12:00] VITALS: BP 143/66
[2016-11-18] MEDS: cefTRIAXone SOD 1 GM in D5W MINI-BAG PLUS 50 ML IV SCH (13:24)
[2016-11-18] MEDS: LEVOTHYROXINE 0.05 MG TAB (50 MCG) PO SCH (15:48)
[2016-11-18 16:00] VITALS: BP_SYST 151; BP_SYST 160; BP_SYST 163; BP_DIAS 71; BP_DIAS 80
--- NOTE | 2016-11-18 17:06 | IPN ---
DATE: 11/18/2016 This morning, she would like her methadone increased. She has no complaints of chest pain. Is not particularly short of breath. Thinks her stools are beginning to form some more. Temperature is 97.6, pulse 46, respiratory rate 20, blood pressure 135/55, 94% in room air. Intake and output notable for a positive fluid balance of 1254, body mass index (BMI) is 28.8. She is awake, appropriately interactive, pleasantly conversant. Breathing is symmetrical. Inspiratory to expiratory (I-to-E) ratio is 1:3. Heart is in a regular rate and rhythm. No significant arrhythmia on the monitor. Abdomen soft, doughy, nontender. White cell count is 5.0, hemoglobin is 8.1, trending downward, platelets are 137. Creatinine 0.66. ASSESSMENT: This is a 71-year-old presented with respiratory distress, found to have norovirus and suspected urinary tract infection. PLAN: 1. Patient's hypotension is no longer an issue. She continues to be bradycardic, which has been a chronic issue for her. There is no evidence of heart block on monitor. I feel comfortable increasing her methadone somewhat in this setting. 2. Infectious disease. Patient has norovirus. Stools are beginning to firm up. Intravenous (IV) fluids have been discontinued. 3. Patient has suspected urinary tract infection with klebsiella that is being treated with a short course of antibiotics. 4. Patient has chronic kidney disease. Creatinine is improved to baseline. 5. Patient has developing anemia, which may be dilutional. There is no evidence of ongoing blood loss. Will continue to monitor her daily hemoglobin and hematocrit. 6. Patient has history of small-bowel obstruction, status post ileostomy. 7. Patient has bilateral hydronephrosis, status post bilateral nephrostomy tubes.
[2016-11-18 19:39] VITALS: BP 122/82
[2016-11-18] MEDS: AMITRIPTYLINE 50 MG TAB PO SCH (20:45)
[2016-11-18] MEDS: rOPINIRole 1MG TAB PO SCH (20:45)
[2016-11-18] MEDS: METHADONE 10 MG TAB (S0109) PO SCH (20:45)
[2016-11-19] VITALS: BP_SYST 119; BP_SYST 139; BP_DIAS 52; BP_DIAS 56; BP_DIAS 64
[2016-11-19 04:00] VITALS: BP 142/76
[2016-11-19 05:35] LABS: MEAN CORPUSCULAR HEMOGLOBIN 26.8 pg (27.0-33.0); MEAN CORPUSCULAR HGB CONC 32.8 g/dl (32.0-36.5); MEAN CORPUSCULAR VOLUME 81.7 fl (80.0-96.0); RED CELL DISTRIBUTION WIDTH 17.1 % (11.5-14.5)
[2016-11-19 05:53] LABS: ANION GAP 8 MEQ/L (8-16); BLOOD UREA NITROGEN 8 MG/DL (7-18); CALCIUM LEVEL 7.3 MG/DL (8.8-10.2); CARBON DIOXIDE LEVEL 27 MEQ/L (21-32); CHLORIDE LEVEL 110 MEQ/L (98-107); CREATININE FOR GFR 0.73 MG/DL (0.55-1.02); GLOMERULAR FILTRATION RATE > 60.0 (>39); GLUCOSE, FASTING 94 MG/DL (83-110); POTASSIUM SERUM 3.4 MEQ/L (3.5-5.1); SODIUM LEVEL 145 MEQ/L (136-145)
[2016-11-19] MEDS ORDERED: POTASSIUM CHLORIDE 10 MEQ SR TABLET PO ONE (06:45)
[2016-11-19 07:56] LABS: RETIC HEMOGLOBIN CONTENT CHr 31.8 PG (24-36); RETICULOCYTE % ADVIA2120 3.5 % (0.5-1.5)
[2016-11-19 08:00] VITALS: BP_SYST 117; BP_SYST 138; BP_SYST 151; BP_DIAS 53; BP_DIAS 63; BP_DIAS 70
[2016-11-19] MEDS: PRAVASTATIN 20 MG TAB PO SCH (08:51)
[2016-11-19] MEDS: TERBINAFINE 250 MG TABLET PO SCH (08:51)
[2016-11-19] MEDS: CYANOCOBALAMIN 500 MCG TAB PO SCH (08:51)
[2016-11-19] MEDS: PREGABALIN 100 MG CAP (LYRICA) PO SCH ×3 (08:51→21:40)
[2016-11-19] MEDS: FERROUS SULFATE 325MG TAB PO SCH (08:51)
[2016-11-19] MEDS: MULTIVITAMINS/MINERALS THERAP 1 TAB PO SCH (08:52)
[2016-11-19] MEDS: METAXALONE 800 MG TABLET PO SCH ×3 (08:53→21:39)
[2016-11-19] MEDS: METHADONE 10 MG TAB (S0109) PO SCH ×2 (08:53→21:40)
[2016-11-19] MEDS: FAMOTIDINE 20 MG TAB PO SCH ×2 (08:53→21:39)
[2016-11-19 14:15] VITALS: BP 144/70
[2016-11-19] MEDS: LEVOTHYROXINE 0.05 MG TAB (50 MCG) PO SCH (14:35)
[2016-11-19] MEDS: cefTRIAXone SOD 1 GM in D5W MINI-BAG PLUS 50 ML IV SCH (14:36)
--- NOTE | 2016-11-19 15:34 | REP ---
Clinical: Cough . Comparison: 11/14/2016 . Technique: PA and lateral. Findings: The mediastinum and cardiac silhouette are normal. The lung scott demonstrate chronic changes without acute consolidation, effusion, or pneumothorax. The skeletal structures are intact and normal. Impression: No acute cardiopulmonary process. Signed by Esa Bolanos MD 11/19/2016 03:26 P
--- NOTE | 2016-11-19 16:19 | IPN ---
DATE: 11/19/2016 Ms. Miller is feeling much better. She has no complaints of pain or chest pain. Stooling is about as firm as it was yesterday, which is improved from previously. She has unfortunately developed a cough. Does not have chest pain or shortness of breath. Temperature 98.5, pulse 62, respiratory rate 18, blood pressure 144/70, 98% on 2 liters. Intake and output notable for a negative fluid balance of -349. Body mass index of 28.6. She is awake, appropriately interactive, pleasantly conversant. Breathing is symmetrical, diminished. When she takes a deep breath she is coughing. There are no upper airway noises noted. No wheezes, rales, or rhonchi. Mucous membranes moist. Neck supple. Heart is distant sounding. White cell count 6, hemoglobin 8.5, platelets of 173. Reticulocyte count is 3.5%. Ferritin level is 60. Iron level is low. Chest xray done today shows no acute process. My assessment is as follows: This is a 71-year-old who presented with respiratory distress and was found to have norovirus and suspected urinary tract infection, now with a cough. Plan is as follows: 1. Infectious disease. The patient has norovirus and urinary tract infection with Klebsiella. Can stop her ceftriaxone today. Monitor her cough. No evidence of pneumonia on chest xray or physical examination. 2. The patient has chronic kidney disease which appears to be at baseline. 3. The patient has stable anemia which would appear to be iron deficiency anemia. May benefit from supplemental iron. 4. The patient has history of small bowel obstruction status post ileostomy. 5. The patient has bilateral hydronephrosis status post bilateral nephrostomy tubes. 6. The patient can be transferred to medical/surgical. She has chronic bradycardia. Has no evidence of serious arrhythmia associated with this and is not symptomatic. Possible discharge as early as tomorrow.
[2016-11-19] MEDS: AMITRIPTYLINE 50 MG TAB PO SCH (21:40)
[2016-11-19] MEDS: rOPINIRole 1MG TAB PO SCH (21:45)
[2016-11-19 22:00] VITALS: BP 140/67
--- NOTE | 2016-11-19 22:09 | ECGEPIP ---
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
[2016-11-20 06:00] VITALS: BP_SYST 142; BP_SYST 154; BP_SYST 156; BP_DIAS 69; BP_DIAS 72; BP_DIAS 82; BP_DIAS 87
[2016-11-20 06:28] LABS: MEAN CORPUSCULAR HEMOGLOBIN 26.1 pg (27.0-33.0); MEAN CORPUSCULAR VOLUME 81.6 fl (80.0-96.0); RED CELL DISTRIBUTION WIDTH 17.7 % (11.5-14.5); WHITE BLOOD COUNT 6.4 K/mm3 (4.0-10.0)
[2016-11-20] MEDS: ACETAMINOPHEN TAB 650MG DOSE (2X325MG) PO PRN ×2 (06:34→16:30)
[2016-11-20 06:37] LABS: ANION GAP 10 MEQ/L (8-16); BLOOD UREA NITROGEN 6 MG/DL (7-18); CALCIUM LEVEL 7.4 MG/DL (8.8-10.2); CARBON DIOXIDE LEVEL 28 MEQ/L (21-32); CHLORIDE LEVEL 103 MEQ/L (98-107); CREATININE FOR GFR 0.76 MG/DL (0.55-1.02); GLOMERULAR FILTRATION RATE > 60.0 (>39); GLUCOSE, FASTING 137 MG/DL (83-110); POTASSIUM SERUM 3.7 MEQ/L (3.5-5.1); SODIUM LEVEL 141 MEQ/L (136-145)
[2016-11-20 08:00] VITALS: BP_SYST 123; BP_SYST 131; BP_SYST 149; BP_DIAS 60; BP_DIAS 61; BP_DIAS 98
[2016-11-20] MEDS ORDERED: ALBUTEROL SULFATE 2.5 MG/0.5 ML INH NEB SOLN INH PRN (08:30)
[2016-11-20] MEDS: CYANOCOBALAMIN 500 MCG TAB PO SCH (09:32)
[2016-11-20] MEDS: PRAVASTATIN 20 MG TAB PO SCH (09:32)
[2016-11-20] MEDS: PREGABALIN 100 MG CAP (LYRICA) PO SCH ×3 (09:32→22:16)
[2016-11-20] MEDS: METHADONE 10 MG TAB (S0109) PO SCH ×3 (09:33→22:16)
[2016-11-20] MEDS: FAMOTIDINE 20 MG TAB PO SCH ×2 (09:33→22:17)
[2016-11-20] MEDS: FERROUS SULFATE 325MG TAB PO SCH (09:34)
[2016-11-20] MEDS: MULTIVITAMINS/MINERALS THERAP 1 TAB PO SCH (09:34)
[2016-11-20] MEDS: TERBINAFINE 250 MG TABLET PO SCH (09:48)
[2016-11-20] MEDS: METAXALONE 800 MG TABLET PO SCH ×3 (09:48→22:16)
--- NOTE | 2016-11-20 11:02 | IPN ---
DATE OF SERVICE: 11/20/2016 Ms. Miller is without complaint this morning apart from cough, which has progressively continued and perhaps become slightly more frequent. She did feel febrile last evening and did have a temperature this morning. No chest pain. Has been producing sputum. Temperature is 99.2. Was 102.4. Pulse 71. Respiratory rate 16. Blood pressure 123/61. 96% on room air. She is awake, appropriately interactive, pleasantly conversant. Breathing is symmetrically diminished. I-to-E ratio is 1:3. No wheezes. Some upper airway sounds are noted. Speaking in complete sentences. No accessory muscle use. Heart is in a regular rate and rhythm. Abdomen soft, doughy, nontender. Active bowel sounds. Some minimal suprapubic firmness. White cell count 6.4, hemoglobin 9, platelets of 180, BUN 6, creatinine 0.7. Repeat respiratory panel is pending. Chest x-ray from yesterday showed no acute disease. My assessment is as follows: This is a 71-year-old who presented with respiratory distress and was found to have norovirus and suspected urinary tract infection, now with a cough and fever. The plan is as follows: 1. Infectious disease. The patient has norovirus. Is off antibiotics for a urinary tract infection. Will check a respiratory panel at this point. I am suspicious, in fact, that she has respiratory syncytial virus (RSV). 2. The patient has chronic kidney disease, which appears to be at baseline. 3. The patient has stable anemia, which is iron-deficiency. May benefit from supplemental iron. 4. The patient has small bowel obstruction, status post ileostomy. 5. The patient has bilateral hydronephrosis. 6. The patient requires ongoing inpatient monitoring to further delineate the cause of this fever, although I suspect it is viral illness and have not started antibiotics based on her comorbid illness and presentation. Will continue to monitor. Edited 11/20/2016 aml
[2016-11-20] MEDS: ALBUTEROL SULFATE 2.5 MG/0.5 ML INH NEB SOLN INH SCH ×3 (11:39→20:16)
[2016-11-20] MEDS: OSELTAMIVIR PHOSPHATE 75 MG CAP (TAMIFLU) PO SCH ×2 (12:56→22:17)
[2016-11-20 14:00] VITALS: BP 130/90
[2016-11-20] MEDS: LEVOTHYROXINE 0.05 MG TAB (50 MCG) PO SCH (15:43)
[2016-11-20 22:00] VITALS: BP 104/69
[2016-11-20] MEDS: rOPINIRole 1MG TAB PO SCH (22:17)
[2016-11-20] MEDS: AMITRIPTYLINE 50 MG TAB PO SCH (22:17)
[2016-11-21 06:00] VITALS: BP 126/67
[2016-11-21 06:27] LABS: MEAN CORPUSCULAR HEMOGLOBIN 26.5 pg (27.0-33.0); RED CELL DISTRIBUTION WIDTH 17.7 % (11.5-14.5); WHITE BLOOD COUNT 4.4 K/mm3 (4.0-10.0)
[2016-11-21 06:31] LABS: MEAN CORPUSCULAR VOLUME 88.4 fl (80.0-96.0)
[2016-11-21 06:46] LABS: ANION GAP 8 MEQ/L (8-16); BLOOD UREA NITROGEN 11 MG/DL (7-18); CALCIUM LEVEL 7.3 MG/DL (8.8-10.2); CARBON DIOXIDE LEVEL 26 MEQ/L (21-32); CHLORIDE LEVEL 105 MEQ/L (98-107); CREATININE FOR GFR 0.88 MG/DL (0.55-1.02); GLOMERULAR FILTRATION RATE > 60.0 (>39); GLUCOSE, FASTING 123 MG/DL (83-110); POTASSIUM SERUM 3.7 MEQ/L (3.5-5.1); SODIUM LEVEL 139 MEQ/L (136-145)
[2016-11-21] MEDS: ALBUTEROL SULFATE 2.5 MG/0.5 ML INH NEB SOLN INH SCH ×4 (08:15→20:01)
[2016-11-21] MEDS: OSELTAMIVIR PHOSPHATE 75 MG CAP (TAMIFLU) PO SCH ×2 (09:59→20:46)
[2016-11-21] MEDS: CYANOCOBALAMIN 500 MCG TAB PO SCH (09:59)
[2016-11-21] MEDS: FAMOTIDINE 20 MG TAB PO SCH ×2 (09:59→20:46)
[2016-11-21] MEDS: TERBINAFINE 250 MG TABLET PO SCH (09:59)
[2016-11-21] MEDS: MULTIVITAMINS/MINERALS THERAP 1 TAB PO SCH (09:59)
[2016-11-21] MEDS: METAXALONE 800 MG TABLET PO SCH ×3 (09:59→20:45)
[2016-11-21] MEDS: PREGABALIN 100 MG CAP (LYRICA) PO SCH ×3 (09:59→20:46)
[2016-11-21] MEDS: FERROUS SULFATE 325MG TAB PO SCH (09:59)
[2016-11-21] MEDS: PRAVASTATIN 20 MG TAB PO SCH (09:59)
[2016-11-21] MEDS: METHADONE 10 MG TAB (S0109) PO SCH ×3 (10:02→20:48)
--- NOTE | 2016-11-21 11:30 | IPN ---
DATE: 11/21/2016 Ms. Miller is complaining of a cough today. Not complaining of any muscle aches. No particularly short of breath. No nephrostomy output on the right, normal urostomy output. Increased urostomy output on the left. Temperature 97.6, pulse 67, respiratory rate 17, blood pressure 126/67, 98% on room air. Intake and output notable for a positive fluid balance of 1260. She says her stool is of similar consistency to where it was yesterday. She is awake. Looks slightly uncomfortable. Mucous membranes moist. Neck is supple. Breathing is symmetrical. I-to-E ratio is 1:3. Coarse upper airway sounds. She is coughing throughout the exam. Heart is regular rate and rhythm, distant sounds. Abdomen is soft. Some mild suprapubic tenderness. No rebound. No guarding. White cell count 4.4, hemoglobin 7.8, platelets 160, BUN 11, creatinine 0.88. Influenza A screen was positive. My assessment is as follows: This is a 71-year-old who presented with respiratory distress. She was found to have norovirus and suspected urinary tract infection, now with influenza A. Plan is as follows: 1. Infectious disease. The patient has norovirus and influenza A, was started on Tamiflu yesterday. Was treated for suspected Klebsiella urinary tract infection during this stay. The patient is on contact precautions appropriate to influenza A. 2. The patient has chronic kidney disease which is at baseline. 3. The patient has chronic kidney disease, which is at baseline. 4. The patient has anemia, which is trending downward, looks to be iron deficiency anemia. She may benefit from supplemental iron. I have obtained informed consent to give blood later today should that become necessary. 5. The patient has a history of small bowel obstruction. 6. The patient has bilateral hydronephrosis. Has a urostomy with good output. She has bilateral nephrostomies with decreased output on the right and seems to have lost a suture in that tube making it much more mobile. Will need to followup with Dr. Clarke tomorrow if he is available.
[2016-11-21] MEDS: BENZONATATE 100 MG CAP PO PRN ×2 (13:14→20:46)
[2016-11-21 14:00] VITALS: BP 127/70
[2016-11-21] MEDS: LEVOTHYROXINE 0.05 MG TAB (50 MCG) PO SCH (15:33)
[2016-11-21 18:29] LABS: WHITE BLOOD COUNT 3.9 K/mm3 (4.0-10.0)
[2016-11-21 18:30] LABS: MEAN CORPUSCULAR HEMOGLOBIN 26.5 pg (27.0-33.0); MEAN CORPUSCULAR HGB CONC 31.8 g/dl (32.0-36.5); MEAN CORPUSCULAR VOLUME 83.2 fl (80.0-96.0); RED CELL DISTRIBUTION WIDTH 17.7 % (11.5-14.5)
[2016-11-21] MEDS: rOPINIRole 1MG TAB PO SCH (20:45)
[2016-11-21] MEDS: AMITRIPTYLINE 50 MG TAB PO SCH (20:46)
[2016-11-21 22:00] VITALS: BP 140/90
[2016-11-22 06:00] VITALS: BP 100/50
[2016-11-22] MEDS: ALBUTEROL SULFATE 2.5 MG/0.5 ML INH NEB SOLN INH SCH ×4 (07:09→20:48)
[2016-11-22 07:39] LABS: MEAN CORPUSCULAR HEMOGLOBIN 26.8 pg (27.0-33.0); MEAN CORPUSCULAR HGB CONC 32.1 g/dl (32.0-36.5); MEAN CORPUSCULAR VOLUME 83.5 fl (80.0-96.0); RED CELL DISTRIBUTION WIDTH 17.8 % (11.5-14.5); WHITE BLOOD COUNT 3.9 K/mm3 (4.0-10.0)
[2016-11-22 08:27] LABS: ANION GAP 8 MEQ/L (8-16); BLOOD UREA NITROGEN 8 MG/DL (7-18); CALCIUM LEVEL 7.7 MG/DL (8.8-10.2); CARBON DIOXIDE LEVEL 27 MEQ/L (21-32); CHLORIDE LEVEL 107 MEQ/L (98-107); CREATININE FOR GFR 0.81 MG/DL (0.55-1.02); GLOMERULAR FILTRATION RATE > 60.0 (>39); GLUCOSE, FASTING 103 MG/DL (83-110); POTASSIUM SERUM 3.6 MEQ/L (3.5-5.1); SODIUM LEVEL 142 MEQ/L (136-145)
[2016-11-22] MEDS: FAMOTIDINE 20 MG TAB PO SCH ×2 (09:28→22:24)
[2016-11-22] MEDS: CYANOCOBALAMIN 500 MCG TAB PO SCH (09:29)
[2016-11-22] MEDS: METAXALONE 800 MG TABLET PO SCH ×3 (09:30→22:21)
[2016-11-22] MEDS: BENZONATATE 100 MG CAP PO PRN (09:30)
[2016-11-22] MEDS: FERROUS SULFATE 325MG TAB PO SCH (09:30)
[2016-11-22] MEDS: OSELTAMIVIR PHOSPHATE 75 MG CAP (TAMIFLU) PO SCH ×2 (09:30→22:23)
[2016-11-22] MEDS: METHADONE 10 MG TAB (S0109) PO SCH ×3 (09:32→22:23)
[2016-11-22] MEDS: PRAVASTATIN 20 MG TAB PO SCH (09:47)
[2016-11-22] MEDS: MULTIVITAMINS/MINERALS THERAP 1 TAB PO SCH (09:47)
[2016-11-22] MEDS: TERBINAFINE 250 MG TABLET PO SCH (09:47)
[2016-11-22] MEDS: PREGABALIN 100 MG CAP (LYRICA) PO SCH ×3 (09:48→22:23)
[2016-11-22] MEDS ORDERED: RACEPINEPHrine 2.25 % UD INHA INH ONE ×2 (10:30→11:30)
[2016-11-22] MEDS ORDERED: RACEPINEPHrine 2.25 % UD INHA As Ordered ONE (10:32)
[2016-11-22 12:50] VITALS: BP 120/52
--- NOTE | 2016-11-22 15:22 | REP ---
PA and lateral chest: Comparisons are 11/19/2016, 11/13/2016 and 07/24/2015. The lung scott are clear. There are no focal infiltrates, effusions or masses. Cardiac size is borderline, unchanged. The jaosn and mediastinum are unremarkable. There is thoracic scoliosis convex right, unchanged. There is multilevel degenerative disc disease throughout the thoracic spine, unchanged. Impression: There are no acute cardiopulmonary findings. Cardiac size is chronically borderline. Signed by Kurt Campbell MD 11/22/2016 03:13 P
[2016-11-22] MEDS: LEVOTHYROXINE 0.05 MG TAB (50 MCG) PO SCH (15:33)
[2016-11-22 15:45] VITALS: BP 128/60
[2016-11-22] MEDS: methylPREDNISolone INJ 125 MG/2 ML VIAL (J2930) IV SCH ×2 (18:33→22:30)
[2016-11-22 20:00] VITALS: BP 116/57; PULSE 74
[2016-11-22] MEDS: BUDESONIDE 0.5 MG/2 ML INHALATION SUSPENSION INH SCH (20:48)
--- NOTE | 2016-11-22 21:03 | IPN ---
DATE: 11/22/2016 Ms. Miller is experiencing a cough today. She is coughing to the point where she is having trouble catching her breath. No chest pain associated with this. No significant sputum production. Temperature 99, pulse 72, respiratory rate 20, blood pressure 120/52, 98% on room air. She is having ostomy output from both her ileostomy and cystotomy and is having output from both nephrostomy tubes. She is suffering from paroxysmal cough. Breathing is symmetrical with coarse upper airway sounds. There is no stridor. No particular wheeze. Heart is in a regular rate and rhythm. Abdomen soft. No significant lower extremity edema. White count 3.9, hemoglobin 8.3, and platelets of 168, BUN 8, creatinine 0.81. My assessment is as follows: This is a 71-year-old who presented with respiratory distress. She was found to have norovirus and suspected urinary tract infection and has gone on to develop influenza A, now with paroxysmal cough. Plan is as follows: 1. Infectious disease. Patient is currently on Tamiflu. May benefit from steroids, although she has had adverse reaction to steroids in the past. She has no true allergy. We will discuss with patient before dosing. Chest x-ray is ordered. She has received a dose of racemic epinephrine which did not help significantly. 2. Patient has chronic kidney disease at baseline. 3. Patient has anemia which appears to be stable and likely iron deficiency anemia. Will consider giving her iron sucrose once her medical status is stabilized as I would have concerns about her ability to absorb oral iron. 4. Patient has history of small bowel obstructions. 5. Patient has bilateral hydronephrosis, has a urostomy with good output. She has had variable output from nephrostomy tubes. Yesterday the right tube was not putting out much fluid, today it appears to be. The right tube is somewhat mobile as well. I did discuss this case by phone with Dr. Clarke who describes a relatively complicated case. Patient would need to be able to sustain general anesthesia in order to have these tubes replaced. At this point, she certainly is not a candidate for that. [facility]
[2016-11-22] MEDS: PERCOCET 5MG/325MG TAB PO PRN (22:26)
[2016-11-22] MEDS: rOPINIRole 1MG TAB PO SCH (22:49)
[2016-11-22] MEDS: AMITRIPTYLINE 50 MG TAB PO SCH (22:49)
[2016-11-23] VITALS (7 sets, daily range): BP systolic 125–157; BP diastolic 55–84; PULSE 49–51
[2016-11-23] MEDS: methylPREDNISolone INJ 125 MG/2 ML VIAL (J2930) IV SCH ×3 (05:26→21:56)
[2016-11-23] MEDS: PERCOCET 5MG/325MG TAB PO PRN ×3 (05:26→20:30)
[2016-11-23] MEDS: BENZONATATE 100 MG CAP PO PRN ×3 (05:40→21:55)
[2016-11-23 06:10] LABS: MEAN CORPUSCULAR HEMOGLOBIN 26.6 pg (27.0-33.0); MEAN CORPUSCULAR HGB CONC 31.6 g/dl (32.0-36.5); MEAN CORPUSCULAR VOLUME 84.2 fl (80.0-96.0); RED CELL DISTRIBUTION WIDTH 17.5 % (11.5-14.5); WHITE BLOOD COUNT 2.3 K/mm3 (4.0-10.0)
[2016-11-23 06:28] LABS: ANION GAP 7 MEQ/L (8-16); BLOOD UREA NITROGEN 12 MG/DL (7-18); CALCIUM LEVEL 8.3 MG/DL (8.8-10.2); CARBON DIOXIDE LEVEL 25 MEQ/L (21-32); CHLORIDE LEVEL 106 MEQ/L (98-107); CREATININE FOR GFR 0.95 MG/DL (0.55-1.02); GLOMERULAR FILTRATION RATE > 60.0 (>39); GLUCOSE, FASTING 260 MG/DL (83-110); POTASSIUM SERUM 4.5 MEQ/L (3.5-5.1); SODIUM LEVEL 138 MEQ/L (136-145)
[2016-11-23] MEDS: ALBUTEROL SULFATE 2.5 MG/0.5 ML INH NEB SOLN INH SCH ×4 (07:19→20:47)
[2016-11-23] MEDS: BUDESONIDE 0.5 MG/2 ML INHALATION SUSPENSION INH SCH ×2 (07:19→20:47)
[2016-11-23] MEDS: TERBINAFINE 250 MG TABLET PO SCH (09:22)
[2016-11-23] MEDS: FERROUS SULFATE 325MG TAB PO SCH (09:22)
[2016-11-23] MEDS: METHADONE 10 MG TAB (S0109) PO SCH ×3 (09:22→21:56)
[2016-11-23] MEDS: METAXALONE 800 MG TABLET PO SCH ×3 (09:22→21:54)
[2016-11-23] MEDS: PRAVASTATIN 20 MG TAB PO SCH (09:23)
[2016-11-23] MEDS: FAMOTIDINE 20 MG TAB PO SCH ×2 (09:23→21:55)
[2016-11-23] MEDS: PREGABALIN 100 MG CAP (LYRICA) PO SCH ×3 (09:23→21:54)
[2016-11-23] MEDS: CYANOCOBALAMIN 500 MCG TAB PO SCH (09:23)
[2016-11-23] MEDS: MULTIVITAMINS/MINERALS THERAP 1 TAB PO SCH (09:23)
[2016-11-23] MEDS: OSELTAMIVIR PHOSPHATE 75 MG CAP (TAMIFLU) PO SCH ×2 (09:23→21:54)
--- NOTE | 2016-11-23 11:02 | IPNPDOC ---
Subjective Date Seen The patient was seen on 11/23/16. Subjective Chief Complaint/HPI The patient is a 71-year-old female admitted with a reason for visit of Exertional Dyspnea. Events since last encounter Patient noted some hematuria from her ostomy. Otherwise no new medical complaints. General: Denies: Chills, Fatigue, Malaise, Night Sweats, Normal Appetite, Other Symptoms, ROS Unobtainable Constitutional: Denies: Chills, Fatigue, Fever, Lethargy, Malaise, Night Sweats , Other, Weakness, Weight Loss Eyes: Denies: Conjunctivae inflammation, Eyelid inflammation, Other, Pain, Redness, Vision change ENT: Denies: Dysphagia, Ear Pain, Epistaxis, Head Aches, Other Symptoms, Post Nasal Drip, Sinus Congestion, Sore Throat Skin: Denies: Breakdown, Bruising, Dry, Itching, Jaundice, Lesions, Nail Changes, Other, Rash Pulmonary: Denies: Cough, Dyspnea, Other Symptoms, Pleuritic Chest Pain Cardiovascular: Denies: Chest Pain, Edema, Lt Headedness, Orthopnea, Other Symptoms, Palpitations, Paroxysmal Noc. Dyspnea Gastrointestinal: Denies: Abdominal Pain, Constipation, Diarrhea, Hematochezia , Melena, Nausea, Other Symptoms, Vomiting Objective Physical Examination General Exam: Positive: Alert, Cooperative, No Acute Distress Eye Exam: Positive: Conjunctiva & lids normal, PERRLA, Negative: Sclera icteric ENT Exam: Positive: Atraumatic, Mucous membr. moist/pink Neck Exam: Positive: Supple, Negative: JVD Chest Exam: Positive: Clear to auscultation, Normal air movement Heart Exam: Positive: Normal S1, Normal S2, Rate Normal Telemetry: Positive: Bradycardia, Sinus Abdomen Exam: Positive: Normal bowel sounds, Other (ileostomy, urostomy - area c/d/i), Soft, Negative: Tenderness Extremity Exam: Positive: Other (b/l nephrostomy tubes in place, area c/d/i), Negative: Edema, Swelling, Tenderness Psych Exam: Positive: Oriented x 3 Assessment /Plan Problems (1) Respiratory distress Status: Acute Response to Treatment: Progressing Discussed With: Patient Problem Specific Plan: Monitor Clinically, Repeat Labs, Repeat Tests Problem Text: Still requiring supplemental oxygen. Secondary to influenza A H3, complicated with norovirus. Continue Tamiflu with droplet precautions. IS, acapella, mucolytics. Repeat ABG interim eval. Taper solumedrol. Continue with respiratory regimen. (2) CKD (chronic kidney disease) Status: Chronic Discussed With: Patient Problem Specific Plan: Repeat Labs Problem Text: Renal function continues to be WNL. (3) Hypothyroidism Status: Chronic Discussed With: Patient Problem Text: Continue synthroid. (4) RUTHANN on CPAP Status: Chronic Discussed With: Patient Problem Text: Uses NIPPV at night. (5) Fibromyalgia Status: Chronic Discussed With: Patient Problem Specific Plan: Monitor Clinically (6) Restless leg syndrome Status: Chronic Discussed With: Patient Problem Text: Continue Lyrica. (7) GERD (gastroesophageal reflux disease) Status: Chronic Discussed With: Patient (8) Depression Status: Chronic Discussed With: Patient Problem Text: Continue Cymbalta, Elavil. (9) Small bowel obstruction Onset Date: 06/27/2014 Status: Chronic Discussed With: Patient Problem Specific Plan: Monitor Clinically Problem Text: S/P ileostomy, 1997. (10) Bilateral hydronephrosis Status: Chronic Problem Text: s/p bilateral nephrostomy tubes (11) Presence of urostomy Status: Chronic Discussed With: Patient Problem Specific Plan: Monitor Clinically Problem Text: Follows with urologist Dr. Robert Anthony in [place]. Placed March 2016. (12) Colostomy present Status: Chronic Discussed With: Patient (13) Hypertension Status: Chronic Discussed With: Patient Problem Specific Plan: Monitor Clinically Problem Text: Continue lisinopril. (14) Anemia Status: Chronic Response to Treatment: Improving Discussed With: Patient Problem Specific Plan: Monitor Clinically, Repeat Labs Problem Text: Hemoglobin continues to improve. Continue to follow. (15) Hematuria Status: Acute Discussed With: Patient Problem Specific Plan: Monitor Clinically, Repeat Labs Problem Text: Noted as per patient from her urostomy. Hg remain stable, will continue to monitor. Discuss with her urologist in [place] if needed. Patient states local urology group recommended [place] for her complicated case. Plan/VTE VTE Prophylaxis Ordered?: Yes (mechanical) Plan Diet: Continue Current Activity: Continue Current Therapy: PT, OT Respiratory: Wean Oxygen Diagnostics: Repeat Labs in AM Anticipated Discharge: Home, Home With Services VS, I&O, 24H, Fishbone Vital Signs/I&O Vital Signs Date Time Temp Pulse Resp B/P Pulse Ox O2 Delivery O2 Flow Rate FiO2 4/4/17 09:22 18 11/23/16 08:00 95.7 46 157/68 92 Nasal Cannula 3.0 I&O- Last 24 Hours up to 6 AM 11/23/16 05:59 Intake Total 1100 ml Output Total 1050 ml Balance 50 ml Laboratory Data 24H LABS Laboratory Tests 2 11/22/16 11:24: Bedside Glucose (Misc Panel) 165H 11/23/16 05:50: Anion Gap 7L, Blood Urea Nitrogen 12, Creatinine 0.95, Sodium Level 138, Potassium Level 4.5#, Chloride Level 106, Carbon Dioxide Level 25, Calcium Level 8.3L, Glomerular Filtration Rate > 60.0 CBC/BMP Laboratory Tests 11/23/16 00:53 11/23/16 05:50 Calcium Level 8.3 L, Red Blood Count 3.34 L, Mean Corpuscular Volume 84.2, Mean Corpuscular Hemoglobin 26.6 L, Mean Corpuscular Hemoglobin Concent 31.6 L, Red Cell Distribution Width 17.5 H Microbiology Microbiology 11/20/16 Blood Culture - Preliminary, Resulted No Growth after 72 hours. All specime... 11/20/16 Blood Culture - Preliminary, Resulted No Growth after 72 hours. All specime... 11/14/16 Blood Culture - Final, Complete NO GROWTH AFTER 5 DAYS 11/14/16 Blood Culture - Final, Complete NO GROWTH AFTER 5 DAYS 11/19/16 Stool Occult Blood (JOAQUIN) - Final, Complete 11/15/16 Gastrointestinal Tract Panel (PCR) - Final, Complete Norovirus 11/15/16 Stool Occult Blood (JOAQUIN) - Final, Complete 11/21/16 Gram Stain - Final, Resulted 11/21/16 Sputum Culture, Resulted Pending 11/20/16 Respiratory Virus Panel (PCR) (JOAQUIN) - Final, Complete Influenza A H3 11/14/16 Influenza Virus Type A Antigen - Final, Complete 11/14/16 Influenza Virus Type B Antigen - Final, Complete 11/14/16 Respiratory Virus Panel (PCR) (JOAQUIN) - Final, Complete 11/15/16 Urine Culture - Final, Complete Klebsiella Pneumoniae FRENCH SHINE MD Nov 23, 2016 11:02
[2016-11-23] MEDS: LEVOTHYROXINE 0.05 MG TAB (50 MCG) PO SCH (15:15)
[2016-11-23] MEDS ORDERED: SLF 3 ML SYR IV PRN (17:00)
[2016-11-23] MEDS: AMITRIPTYLINE 50 MG TAB PO SCH (21:54)
[2016-11-23] MEDS: rOPINIRole 1MG TAB PO SCH (21:55)
[2016-11-23] MEDS: SLF 3 ML SYR IV SCH (21:57)
[2016-11-24] MEDS: methylPREDNISolone INJ 125 MG/2 ML VIAL (J2930) IV SCH (05:27)
[2016-11-24] MEDS: SLF 3 ML SYR IV SCH ×3 (05:27→20:57)
[2016-11-24 06:00] VITALS: BP 150/80
[2016-11-24 07:16] LABS: MEAN CORPUSCULAR HEMOGLOBIN 26.1 pg (27.0-33.0); MEAN CORPUSCULAR HGB CONC 31.4 g/dl (32.0-36.5); MEAN CORPUSCULAR VOLUME 83.1 fl (80.0-96.0); RED CELL DISTRIBUTION WIDTH 17.8 % (11.5-14.5); WHITE BLOOD COUNT 4.4 K/mm3 (4.0-10.0)
[2016-11-24] MEDS: BUDESONIDE 0.5 MG/2 ML INHALATION SUSPENSION INH SCH ×2 (07:22→20:40)
[2016-11-24] MEDS: ALBUTEROL SULFATE 2.5 MG/0.5 ML INH NEB SOLN INH SCH ×4 (07:22→20:40)
[2016-11-24 07:49] LABS: ANION GAP 4 MEQ/L (8-16); BLOOD UREA NITROGEN 18 MG/DL (7-18); CALCIUM LEVEL 8.5 MG/DL (8.8-10.2); CARBON DIOXIDE LEVEL 30 MEQ/L (21-32); CHLORIDE LEVEL 108 MEQ/L (98-107); CREATININE FOR GFR 0.92 MG/DL (0.55-1.02); GLOMERULAR FILTRATION RATE > 60.0 (>39); GLUCOSE, FASTING 195 MG/DL (83-110); POTASSIUM SERUM 4.6 MEQ/L (3.5-5.1); SODIUM LEVEL 142 MEQ/L (136-145)
[2016-11-24] MEDS: OSELTAMIVIR PHOSPHATE 75 MG CAP (TAMIFLU) PO SCH ×2 (10:08→20:56)
[2016-11-24] MEDS: TERBINAFINE 250 MG TABLET PO SCH (10:08)
[2016-11-24] MEDS: FERROUS SULFATE 325MG TAB PO SCH (10:08)
[2016-11-24] MEDS: METAXALONE 800 MG TABLET PO SCH ×3 (10:08→20:55)
[2016-11-24] MEDS: PREGABALIN 100 MG CAP (LYRICA) PO SCH ×3 (10:08→20:56)
[2016-11-24] MEDS: MULTIVITAMINS/MINERALS THERAP 1 TAB PO SCH (10:08)
[2016-11-24] MEDS: CYANOCOBALAMIN 500 MCG TAB PO SCH (10:09)
[2016-11-24] MEDS: PRAVASTATIN 20 MG TAB PO SCH (10:09)
[2016-11-24] MEDS: METHADONE 10 MG TAB (S0109) PO SCH ×3 (10:10→20:55)
[2016-11-24] MEDS: FAMOTIDINE 20 MG TAB PO SCH ×2 (10:10→20:56)
--- NOTE | 2016-11-24 10:41 | IPNPDOC ---
Subjective Date Seen The patient was seen on 11/24/16. Subjective Chief Complaint/HPI The patient is a 71-year-old female admitted with a reason for visit of Exertional Dyspnea. General: Denies: Chills, Fatigue, Malaise, Night Sweats, Normal Appetite, Other Symptoms, ROS Unobtainable Constitutional: Denies: Chills, Fatigue, Fever, Lethargy, Malaise, Night Sweats , Other, Weakness, Weight Loss Eyes: Denies: Conjunctivae inflammation, Eyelid inflammation, Other, Pain, Redness, Vision change ENT: Denies: Dysphagia, Ear Pain, Epistaxis, Head Aches, Other Symptoms, Post Nasal Drip, Sinus Congestion, Sore Throat Skin: Denies: Breakdown, Bruising, Dry, Itching, Jaundice, Lesions, Nail Changes, Other, Rash Pulmonary: Reports: Cough (productive of clear/), Dyspnea, Denies: Other Symptoms, Pleuritic Chest Pain Cardiovascular: Denies: Chest Pain, Edema, Lt Headedness, Orthopnea, Other Symptoms, Palpitations, Paroxysmal Noc. Dyspnea Gastrointestinal: Denies: Abdominal Pain, Constipation, Diarrhea, Hematochezia , Melena, Nausea, Other Symptoms, Vomiting Genitourinary: Denies: Dysuria, Frequency, Hematuria, Incontinence, Other Symptoms, Retention Objective Physical Examination General Exam: Positive: Alert, Cooperative, No Acute Distress Eye Exam: Positive: Conjunctiva & lids normal, PERRLA, Negative: Sclera icteric ENT Exam: Positive: Atraumatic, Mucous membr. moist/pink Neck Exam: Positive: Supple, Negative: JVD Chest Exam: Positive: Clear to auscultation, Normal air movement Heart Exam: Positive: Normal S1, Normal S2, Rate Normal Telemetry: Positive: Bradycardia, Sinus Abdomen Exam: Positive: Normal bowel sounds, Other (ileostomy, urostomy - area c/d/i), Soft, Negative: Tenderness Extremity Exam: Positive: Other (b/l nephrostomy tubes in place, area c/d/i), Negative: Edema, Swelling, Tenderness Psych Exam: Positive: Oriented x 3 Assessment /Plan Problems (1) Respiratory distress Status: Acute Response to Treatment: Progressing Discussed With: Patient Problem Specific Plan: Monitor Clinically, Repeat Labs, Repeat Tests Problem Text: Still requiring supplemental oxygen. Secondary to influenza A H3, complicated with MRSA and yeast in sputum. Doxycycline and anti-fungal therapy. Continue Tamiflu with droplet precautions. IS, acapella, mucolytics. Taper solumedrol. Continue with respiratory regimen. (2) Hematuria Status: Acute Response to Treatment: Improving Discussed With: Patient Problem Specific Plan: Monitor Clinically, Repeat Labs Problem Text: Noted as per patient from her urostomy. Small drop in Hg - continue to monitor. Ostomy site this morning shows straw colored urine. Patient states local urology group recommended [place] for her complicated case. (3) CKD (chronic kidney disease) Status: Chronic Discussed With: Patient Problem Specific Plan: Repeat Labs Problem Text: Renal function continues to be WNL. (4) Hypothyroidism Status: Chronic Discussed With: Patient Problem Text: Continue synthroid. (5) RUTHANN on CPAP Status: Chronic Discussed With: Patient Problem Text: Uses NIPPV at night. (6) Fibromyalgia Status: Chronic Discussed With: Patient Problem Specific Plan: Monitor Clinically (7) Restless leg syndrome Status: Chronic Discussed With: Patient Problem Text: Continue Lyrica. (8) GERD (gastroesophageal reflux disease) Status: Chronic Discussed With: Patient (9) Depression Status: Chronic Discussed With: Patient Problem Text: Continue Cymbalta, Elavil. (10) Small bowel obstruction Onset Date: 06/27/2014 Status: Chronic Discussed With: Patient Problem Specific Plan: Monitor Clinically Problem Text: S/P ileostomy, 1997. (11) Bilateral hydronephrosis Status: Chronic Problem Text: s/p bilateral nephrostomy tubes (12) Presence of urostomy Status: Chronic Discussed With: Patient Problem Specific Plan: Monitor Clinically Problem Text: Follows with urologist Dr. Robert Anthony in [place]. Placed March 2016. (13) Colostomy present Status: Chronic Discussed With: Patient (14) Hypertension Status: Chronic Discussed With: Patient Problem Specific Plan: Monitor Clinically Problem Text: Continue lisinopril. (15) Anemia Status: Chronic Response to Treatment: Improving Discussed With: Patient Problem Specific Plan: Monitor Clinically, Repeat Labs Problem Text: Hemoglobin continues to improve. Continue to follow. Plan/VTE VTE Prophylaxis Ordered?: Yes (mechanical) Plan Diet: Continue Current Activity: Continue Current Therapy: PT, OT Medications: Start Antibiotics, Taper Steroids Respiratory: Wean Oxygen Diagnostics: Repeat Labs in AM Anticipated Discharge: Home, Home With Services VS, I&O, 24H, Fishbone Vital Signs/I&O Vital Signs Date Time Temp Pulse Resp B/P Pulse Ox O2 Delivery O2 Flow Rate FiO2 11/24/16 10:10 18 11/24/16 06:00 97.6 84 150/80 96 NIPPV (BIPAP/CPAP) 11/23/16 16:00 I&O- Last 24 Hours up to 6 AM 11/24/16 06:00 Intake Total 1320 ml Output Total 1785 ml Balance -465 ml Laboratory Data 24H LABS Laboratory Tests 2 11/24/16 06:59: Anion Gap 4L, Blood Urea Nitrogen 18, Creatinine 0.92, Sodium Level 142, Potassium Level 4.6, Chloride Level 108H, Carbon Dioxide Level 30, Calcium Level 8.5L, Glomerular Filtration Rate > 60.0 CBC/BMP Laboratory Tests 11/24/16 06:59 Calcium Level 8.5 L, Red Blood Count 3.14 L, Mean Corpuscular Volume 83.1, Mean Corpuscular Hemoglobin 26.1 L, Mean Corpuscular Hemoglobin Concent 31.4 L, Red Cell Distribution Width 17.8 H Microbiology Microbiology 11/20/16 Blood Culture - Preliminary, Resulted No Growth after 72 hours. All specime... 11/20/16 Blood Culture - Preliminary, Resulted No Growth after 72 hours. All specime... 11/14/16 Blood Culture - Final, Complete NO GROWTH AFTER 5 DAYS 11/14/16 Blood Culture - Final, Complete NO GROWTH AFTER 5 DAYS 11/19/16 Stool Occult Blood (JOAQUIN) - Final, Complete 11/15/16 Gastrointestinal Tract Panel (PCR) - Final, Complete Norovirus 11/15/16 Stool Occult Blood (JOAQUIN) - Final, Complete 11/21/16 Gram Stain - Final, Complete 11/21/16 Sputum Culture - Final, Complete Staph.aureus Methicillin Resis Yeast Like Organism 11/20/16 Respiratory Virus Panel (PCR) (JOAQUIN) - Final, Complete Influenza A H3 11/14/16 Influenza Virus Type A Antigen - Final, Complete 11/14/16 Influenza Virus Type B Antigen - Final, Complete 11/14/16 Respiratory Virus Panel (PCR) (JOAQUIN) - Final, Complete 11/15/16 Urine Culture - Final, Complete Klebsiella Pneumoniae FRENCH SHINE MD Nov 24, 2016 10:40
[2016-11-24] MEDS: methylPREDNISolone INJ 40 MG/1 ML VIAL (J2920) IV SCH ×2 (12:52→20:56)
[2016-11-24] MEDS: DOXYCYCLINE HYCLATE 100 MG in D5W MINI-BAG PLUS 100 ML IV SCH ×2 (12:52→23:39)
[2016-11-24] MEDS: PERCOCET 5MG/325MG TAB PO PRN (12:53)
[2016-11-24 14:00] VITALS: BP 138/78
[2016-11-24] MEDS: LEVOTHYROXINE 0.05 MG TAB (50 MCG) PO SCH (15:57)
[2016-11-24] MEDS: rOPINIRole 1MG TAB PO SCH (20:56)
[2016-11-24] MEDS: AMITRIPTYLINE 50 MG TAB PO SCH (20:56)
[2016-11-24 22:00] VITALS: BP 129/58
[2016-11-25] MEDS: methylPREDNISolone INJ 40 MG/1 ML VIAL (J2920) IV SCH (05:00)
[2016-11-25] MEDS: SLF 3 ML SYR IV SCH ×3 (05:06→21:36)
[2016-11-25 06:00] VITALS: BP 170/72
[2016-11-25 06:54] LABS: MEAN CORPUSCULAR HEMOGLOBIN 26.6 pg (27.0-33.0); RED CELL DISTRIBUTION WIDTH 17.9 % (11.5-14.5); WHITE BLOOD COUNT 5.4 K/mm3 (4.0-10.0)
[2016-11-25 07:17] LABS: ANION GAP 6 MEQ/L (8-16); BLOOD UREA NITROGEN 19 MG/DL (7-18); CALCIUM LEVEL 8.6 MG/DL (8.8-10.2); CARBON DIOXIDE LEVEL 28 MEQ/L (21-32); CHLORIDE LEVEL 106 MEQ/L (98-107); CREATININE FOR GFR 0.78 MG/DL (0.55-1.02); GLOMERULAR FILTRATION RATE > 60.0 (>39); GLUCOSE, FASTING 147 MG/DL (83-110); POTASSIUM SERUM 4.1 MEQ/L (3.5-5.1); SODIUM LEVEL 140 MEQ/L (136-145)
[2016-11-25] MEDS: BUDESONIDE 0.5 MG/2 ML INHALATION SUSPENSION INH SCH ×2 (07:54→20:12)
[2016-11-25] MEDS: ALBUTEROL SULFATE 2.5 MG/0.5 ML INH NEB SOLN INH SCH ×4 (07:54→20:12)
[2016-11-25] MEDS: TERBINAFINE 250 MG TABLET PO SCH (09:30)
[2016-11-25] MEDS: MULTIVITAMINS/MINERALS THERAP 1 TAB PO SCH (09:31)
[2016-11-25] MEDS: PRAVASTATIN 20 MG TAB PO SCH (09:31)
[2016-11-25] MEDS: CYANOCOBALAMIN 500 MCG TAB PO SCH (09:31)
[2016-11-25] MEDS: METAXALONE 800 MG TABLET PO SCH ×3 (09:32→21:36)
[2016-11-25] MEDS: METHADONE 10 MG TAB (S0109) PO SCH ×3 (09:32→21:36)
[2016-11-25] MEDS: FERROUS SULFATE 325MG TAB PO SCH (09:33)
[2016-11-25] MEDS: PREGABALIN 100 MG CAP (LYRICA) PO SCH ×3 (09:33→21:36)
[2016-11-25] MEDS: FAMOTIDINE 20 MG TAB PO SCH ×2 (09:33→21:36)
--- NOTE | 2016-11-25 11:03 | IPNPDOC ---
Subjective Date Seen The patient was seen on 11/25/16. Subjective Chief Complaint/HPI The patient is a 71-year-old female admitted with a reason for visit of Exertional Dyspnea. General: Denies: Chills, Fatigue, Malaise, Night Sweats, Normal Appetite, Other Symptoms, ROS Unobtainable Constitutional: Denies: Chills, Fatigue, Fever, Lethargy, Malaise, Night Sweats , Other, Weakness, Weight Loss Eyes: Denies: Conjunctivae inflammation, Eyelid inflammation, Other, Pain, Redness, Vision change ENT: Denies: Dysphagia, Ear Pain, Epistaxis, Head Aches, Other Symptoms, Post Nasal Drip, Sinus Congestion, Sore Throat Skin: Denies: Breakdown, Bruising, Dry, Itching, Jaundice, Lesions, Nail Changes, Other, Rash Pulmonary: Denies: Cough, Dyspnea, Other Symptoms, Pleuritic Chest Pain Cardiovascular: Denies: Chest Pain, Edema, Lt Headedness, Orthopnea, Other Symptoms, Palpitations, Paroxysmal Noc. Dyspnea Gastrointestinal: Denies: Abdominal Pain, Constipation, Diarrhea, Hematochezia , Melena, Nausea, Other Symptoms, Vomiting Genitourinary: Denies: Dysuria, Frequency, Hematuria, Incontinence, Other Symptoms, Retention Objective Physical Examination General Exam: Positive: Alert, Cooperative, No Acute Distress Eye Exam: Positive: Conjunctiva & lids normal, PERRLA, Negative: Sclera icteric ENT Exam: Positive: Atraumatic, Mucous membr. moist/pink Neck Exam: Positive: Supple Chest Exam: Positive: Clear to auscultation, Normal air movement Heart Exam: Positive: Normal S1, Normal S2, Rate Normal Telemetry: Positive: Bradycardia Abdomen Exam: Positive: Normal bowel sounds, Other (ileostomy, urostomy - area c/d/i), Soft, Negative: Tenderness Extremity Exam: Positive: Other (b/l nephrostomy tubes in place, area c/d/i), Negative: Edema, Swelling, Tenderness Psych Exam: Positive: Oriented x 3 Assessment /Plan Problems (1) Respiratory distress Status: Acute Response to Treatment: Progressing Discussed With: Patient Problem Specific Plan: Monitor Clinically, Repeat Labs, Repeat Tests Problem Text: Saturating well on room air. Secondary to influenza A H3, complicated with MRSA and yeast in sputum. Doxycycline and anti-fungal therapy. Continue Tamiflu with droplet precautions. IS, acapella, mucolytics. Taper solumedrol. Start prednisone tomorrow. Continue with respiratory regimen. (2) Hematuria Status: Acute Response to Treatment: Improving Discussed With: Patient Problem Specific Plan: Monitor Clinically, Repeat Labs Problem Text: Noted as per patient from her urostomy. Small drop in Hg - continue to monitor. Ostomy site this morning shows straw colored urine. Patient states local urology group recommended [place] for her complicated case. (3) CKD (chronic kidney disease) Status: Chronic Discussed With: Patient Problem Specific Plan: Repeat Labs Problem Text: acute renal failure on CKD on admission. acute renal failure resolved. Renal function continues to be WNL. (4) Hypothyroidism Status: Chronic Discussed With: Patient Problem Text: Continue synthroid. (5) RUTHANN on CPAP Status: Chronic Discussed With: Patient Problem Text: Uses NIPPV at night. (6) Fibromyalgia Status: Chronic Discussed With: Patient Problem Specific Plan: Monitor Clinically (7) Restless leg syndrome Status: Chronic Discussed With: Patient Problem Text: Continue Lyrica. (8) GERD (gastroesophageal reflux disease) Status: Chronic Discussed With: Patient (9) Depression Status: Chronic Discussed With: Patient Problem Text: Continue Cymbalta, Elavil. (10) Small bowel obstruction Onset Date: 06/27/2014 Status: Chronic Discussed With: Patient Problem Specific Plan: Monitor Clinically Problem Text: S/P ileostomy, 1997. (11) Bilateral hydronephrosis Status: Chronic Problem Text: s/p bilateral nephrostomy tubes (12) Presence of urostomy Status: Chronic Discussed With: Patient Problem Specific Plan: Monitor Clinically Problem Text: Follows with urologist Dr. Robert Anthony in [place]. Placed March 2016. (13) Colostomy present Status: Chronic Discussed With: Patient (14) Hypertension Status: Chronic Discussed With: Patient Problem Specific Plan: Monitor Clinically Problem Text: Continue lisinopril. (15) Anemia Status: Chronic Response to Treatment: Improving Discussed With: Patient Problem Specific Plan: Monitor Clinically, Repeat Labs Problem Text: Stable. Continue to follow. Plan/VTE VTE Prophylaxis Ordered?: Yes (mechanical) Plan Diet: Continue Current Activity: Continue Current Therapy: PT, OT Medications: Start Antibiotics, Taper Steroids Respiratory: Wean Oxygen Diagnostics: Repeat Labs in AM Anticipated Discharge: Home, Home With Services VS, I&O, 24H, Fishbone Vital Signs/I&O Vital Signs Date Time Temp Pulse Resp B/P Pulse Ox O2 Delivery O2 Flow Rate FiO2 11/25/16 09:32 17 11/25/16 06:00 97.2 51 170/72 90 Room Air 11/23/16 16:00 I&O- Last 24 Hours up to 6 AM 11/25/16 06:00 Intake Total 820 ml Output Total 1400 ml Balance -580 ml Laboratory Data 24H LABS Laboratory Tests 2 11/25/16 06:38: Anion Gap 6L, Blood Urea Nitrogen 19H, Creatinine 0.78, Sodium Level 140, Potassium Level 4.1, Chloride Level 106, Carbon Dioxide Level 28, Calcium Level 8.6L, Glomerular Filtration Rate > 60.0 CBC/BMP Laboratory Tests 11/25/16 06:38 Calcium Level 8.6 L, Red Blood Count 3.26 L, Mean Corpuscular Volume 83.0, Mean Corpuscular Hemoglobin 26.6 L, Mean Corpuscular Hemoglobin Concent 32.0, Red Cell Distribution Width 17.9 H Microbiology Microbiology 11/20/16 Blood Culture - Final, Complete NO GROWTH AFTER 5 DAYS 11/20/16 Blood Culture - Final, Complete NO GROWTH AFTER 5 DAYS 11/19/16 Stool Occult Blood (JOAQUIN) - Final, Complete 11/15/16 Gastrointestinal Tract Panel (PCR) - Final, Complete Norovirus 11/15/16 Stool Occult Blood (JOAQUIN) - Final, Complete 11/21/16 Gram Stain - Final, Complete 11/21/16 Sputum Culture - Final, Complete Staph.aureus Methicillin Resis Yeast Like Organism 11/20/16 Respiratory Virus Panel (PCR) (JOAQUIN) - Final, Complete Influenza A H3 11/15/16 Urine Culture - Final, Complete Klebsiella Pneumoniae FRENCH SHINE MD Nov 25, 2016 11:03
[2016-11-25] MEDS: DOXYCYCLINE HYCLATE 100 MG in D5W MINI-BAG PLUS 100 ML IV SCH ×2 (13:23→23:30)
[2016-11-25 14:00] VITALS: BP 154/70
[2016-11-25] MEDS: LEVOTHYROXINE 0.05 MG TAB (50 MCG) PO SCH (15:10)
[2016-11-25] MEDS ORDERED: methylPREDNISolone INJ 40 MG/1 ML VIAL (J2920) IV SCH ×2 (17:00)
[2016-11-25] MEDS: PERCOCET 5MG/325MG TAB PO PRN (20:08)
[2016-11-25] MEDS: AMITRIPTYLINE 50 MG TAB PO SCH (21:36)
[2016-11-25] MEDS: rOPINIRole 1MG TAB PO SCH (21:36)
[2016-11-25 22:00] VITALS: BP 164/80
[2016-11-26] MEDS: SLF 3 ML SYR IV SCH (05:49)
[2016-11-26 06:00] VITALS: BP 178/68
[2016-11-26] MEDS: PERCOCET 5MG/325MG TAB PO PRN (06:20)
[2016-11-26 06:27] LABS: ANION GAP 7 MEQ/L (8-16); BLOOD UREA NITROGEN 19 MG/DL (7-18); CALCIUM LEVEL 8.3 MG/DL (8.8-10.2); CARBON DIOXIDE LEVEL 30 MEQ/L (21-32); CHLORIDE LEVEL 105 MEQ/L (98-107); CREATININE FOR GFR 0.83 MG/DL (0.55-1.02); GLOMERULAR FILTRATION RATE > 60.0 (>39); GLUCOSE, FASTING 115 MG/DL (83-110); POTASSIUM SERUM 3.4 MEQ/L (3.5-5.1); SODIUM LEVEL 142 MEQ/L (136-145)
[2016-11-26 06:40] LABS: MEAN CORPUSCULAR HEMOGLOBIN 25.9 pg (27.0-33.0); MEAN CORPUSCULAR HGB CONC 32.1 g/dl (32.0-36.5); MEAN CORPUSCULAR VOLUME 80.9 fl (80.0-96.0); WHITE BLOOD COUNT 6.5 K/mm3 (4.0-10.0)
[2016-11-26] MEDS ORDERED: POTASSIUM CHLORIDE 10 MEQ SR TABLET PO ONE (07:00)
[2016-11-26 07:02] LABS: MAGNESIUM LEVEL 1.5 MG/DL (1.8-2.4)
[2016-11-26] MEDS: BUDESONIDE 0.5 MG/2 ML INHALATION SUSPENSION INH SCH (07:40)
[2016-11-26] MEDS: ALBUTEROL SULFATE 2.5 MG/0.5 ML INH NEB SOLN INH SCH ×2 (07:40→11:22)
[2016-11-26] MEDS ORDERED: MAG SULF 1GM/100ML (MAG RUN) 1 GM in APPROPRIATE DILUENT 1 EA IV ONE (08:30)
[2016-11-26] MEDS ORDERED: DOXY100T16 PO (08:40)
[2016-11-26] MEDS ORDERED: PRED10TA PO (08:40)
[2016-11-26] MEDS ORDERED: PERCOCET PO ×2 (08:43→09:08)
[2016-11-26] MEDS ORDERED: predniSONE 20 MG TAB PO SCH (09:00)
[2016-11-26] MEDS ORDERED: MAGNESIUM OXIDE 400 MG TAB (MAG-OX) PO ONE (09:15)
[2016-11-26] MEDS: PRAVASTATIN 20 MG TAB PO SCH (09:23)
[2016-11-26] MEDS: MULTIVITAMINS/MINERALS THERAP 1 TAB PO SCH (09:23)
[2016-11-26] MEDS: FAMOTIDINE 20 MG TAB PO SCH (09:24)
[2016-11-26] MEDS: METHADONE 10 MG TAB (S0109) PO SCH (09:24)
[2016-11-26] MEDS: FERROUS SULFATE 325MG TAB PO SCH (09:24)
[2016-11-26] MEDS: CYANOCOBALAMIN 500 MCG TAB PO SCH (09:25)
[2016-11-26] MEDS: PREGABALIN 100 MG CAP (LYRICA) PO SCH (09:25)
[2016-11-26] MEDS: METAXALONE 800 MG TABLET PO SCH (09:26)
[2016-11-26] MEDS: TERBINAFINE 250 MG TABLET PO SCH (09:26)
[2016-11-26 09:38] VITALS: BP 146/82
--- NOTE | 2016-11-26 09:58 | DS.PDOC ---
Discharge Summary General Date of Admission Nov 14, 2016 at 18:14 Date of Discharge 11/26/16 Discharge Summary PROCEDURES PERFORMED DURING STAY: [None]. DISCHARGE DIAGNOSES: 1. Influenza A H3 - completed course of Tamiflu 2. MRSA detected in sputum 3. Hematuria - resolved 4. Acute on chronic kidney disease 5. Hypothyroidism 6. RUTHANN/CPAP 7. Fibromyalgia 8. Restless leg syndrome 9. GERD 10. Depression 11. Hx SBO s/p ileostomy 12. Hx B/L hydronephrosis - s/p bilateral nephrostomy tubes 13. Urostomy - March 2016 14. HTN 15. Chronic anemia 16. UTI - Klebsiella 17. Norovirus detected in stool 18. Chronic sinus bradycardia 19. Hyperlipidemia CHIEF COMPLAINT: Exertional Dyspnea. HOSPITAL COURSE: 71 yo female with extensive medical history as indicated admitted for dyspnea on exertion. Concern regarding PE, V/Q scan obtained was low probability, LE dopplers negative. Heparin drip started on admission discontinued. Patient also in acute kidney injury on admission, resolved with IV fluids and holding her ACEI. Urinalysis was positive for Klebsiella UTI, completed course of antibiotics for her UTI. Patient did test positive for influenza A H3, and completed a course of oseltamivir in hospital. Sputum was positive for MRSA, and is completing a course of doxycycline. Patient did have episodes of hypotension in the hospital, which also responded to IV fluids. Also of note, GI panel was positive for norovirus. DISCHARGE MEDICATIONS: Please see below. ALLERGIES: Please see below. PHYSICAL EXAMINATION ON DISCHARGE: VITAL SIGNS: Please see below. GENERAL: NAD HEENT: NC/AT, EOMI, PERRL NECK: supple CARDIOVASCULAR EXAMINATION: +S1S2 RESPIRATORY EXAMINATION: CTA B/L ABDOMINAL EXAMINATION: soft, NT, +BS, b/l nephrostomy tubes in place, urostomy in place straw colored output, ileostomy in place EXTREMITIES: no edema PSYCHIATRIC EXAMINATION: AAOx3 LABORATORY DATA: Please see below. ACTIVITY: [As tolerated]. DIET: 2 gram sodium DISPOSITION: Discharge home - with services if needed. DISCHARGE INSTRUCTIONS: 1. Follow up PCP in 3-5 days. 2. Follow up urology Dr. Anthony in 3-5 days. 3. Medications as directed. DISCHARGE CONDITION: [Stable]. TIME SPENT ON DISCHARGE: Greater than 30 minutes. Vital Signs/I&Os Vital Signs Date Time Temp Pulse Resp B/P Pulse Ox O2 Delivery O2 Flow Rate FiO2 11/26/16 09:38 146/82 11/26/16 09:24 20 11/26/16 06:00 97.5 49 97 Room Air 11/23/16 16:00 I&O- Last 24 Hours up to 6 AM 11/26/16 06:00 Intake Total 1780 ml Output Total 1825 ml Balance -45 ml Laboratory Data Labs 24H Laboratory Tests 2 11/26/16 06:03: Anion Gap 7L, Blood Urea Nitrogen 19H, Creatinine 0.83, Sodium Level 142, Potassium Level 3.4L, Chloride Level 105, Carbon Dioxide Level 30, Calcium Level 8.3L, Glomerular Filtration Rate > 60.0, Magnesium Level 1.5L CBC/BMP Laboratory Tests 11/26/16 06:03 Calcium Level 8.3 L, Red Blood Count 3.55 L, Mean Corpuscular Volume 80.9, Mean Corpuscular Hemoglobin 25.9 L, Mean Corpuscular Hemoglobin Concent 32.1, Red Cell Distribution Width 18.0 H Microbiology Microbiology 11/20/16 Blood Culture - Final, Complete NO GROWTH AFTER 5 DAYS 11/20/16 Blood Culture - Final, Complete NO GROWTH AFTER 5 DAYS 11/19/16 Stool Occult Blood (JOAQUIN) - Final, Complete 11/21/16 Gram Stain - Final, Complete 11/21/16 Sputum Culture - Final, Complete Staph.aureus Methicillin Resis Yeast Like Organism 11/20/16 Respiratory Virus Panel (PCR) (JOAQUIN) - Final, Complete Influenza A H3 Discharge Medications Scheduled Amitriptyline HCl (Amitriptyline HCl) 100 Mg Tab 100 MG PO QHS (Reported) Aspirin (Aspirin 81) 81 Mg Tab 81 MG PO QHS (Reported) Cyanocobalamin (Vitamin B-12) 1,000 Mcg Tab 1,000 MCG PO DAILY (Reported) Doxycycline Monohydrate (Doxycycline Monohydrate) 100 Mg Tab 100 MG PO BID Duloxetine Hcl (Duloxetine HCl) 30 Mg Cap 30 MG PO QHS (Reported) Ferrous Sulfate (Ferrous Sulfate) 325 Mg Tab 325 MG PO DAILY (Reported) Levothyroxine Sodium (Synthroid) 50 Mcg Tab 50 MCG PO QPM (Reported) TAKES AT 3PM Lisinopril (Lisinopril) 20 Mg Tab 20 MG PO QPM (Reported) TAKES AT 3PM Metaxalone (Skelaxin) 800 Mg Tab 800 MG PO TID (Reported) Metformin Hydrochloride (Metformin HCl) 500 Mg Tab 500 MG PO BID (Reported) Methadone HCl (Methadone HCl) 10 Mg Tab 10 MG PO TID (Reported) Multivitamins *[facility] STOCKED* (Thera M Plus *[facility] STOCKED*) 1 Tab Tab 1 TAB PO DAILY (Reported) Pravastatin Sodium (Pravastatin Sodium) 20 Mg Tab 20 MG PO DAILY (Reported) Prednisone (Prednisone) 10 Mg Tab 10 MG PO ASDIRECTED Pregabalin (Lyrica) 100 Mg Cap 100 MG PO TID (Reported) Ranitidine HCl (Ranitidine HCl) 300 Mg Tab 1 TAB PO BID (Reported) Ropinirole Hydrochloride (Ropinirole HCl) 1 Mg Tab 1 MG PO QHS (Reported) Terbinafine HCl (Lamisil) 250 Mg Tab 250 MG PO DAILY (Reported) Scheduled PRN (Lidocaine) 5 % Pad 4 PATCH TOP DAILY PRN PRN PAIN (Reported) APPLY TO NECK Docusate Sodium (Colace) 100 Mg Cap 100 MG PO DAILY PRN PRN CONSTIPATION ( Reported) Oxycodone/Acetaminophen (Percocet 5MG/325MG Tablet) 1 Tab Tab 1 TAB PO Q6HP PRN PRN MILD/MODERATE PAIN (PS 1-7) Allergies Coded Allergies: Codeine (Verified Allergy, Severe, RESP FAILURE,HIVES, 08/14/14) TOLERATES FENTANYL AND OXYDODONE WELL Pneumococcal Vaccine (Verified Allergy, Unknown, 11/25/12) Flu Virus Vaccine (Verified Adverse Reaction, Severe, COMA, 08/14/14) Clonidine (Verified Adverse Reaction, Mild, FAINT, 08/14/14) Corticosteroids (Verified Adverse Reaction, Mild, UNKNOWN STEROID - RESTLESS LEGS, 05/27/16) Quinapril (Verified Adverse Reaction, Mild, PASSED OUT, 11/25/12) TAPE (Verified Adverse Reaction, Mild, BLISTERS, 08/14/14) Zolpidem (Verified Adverse Reaction, Mild, SLEEPWALKING, 08/14/14) FRENCH SHINE MD Nov 26, 2016 09:58
[2016-11-26] MEDS ORDERED: LISINOPRIL 20 MG TAB PO ONE (10:00)
[2016-11-26 10:21] VITALS: BP 146/82
[2016-11-26] MEDS ORDERED: DOXYCYCLINE HYCLATE 100 MG TAB PO ONE (12:00)
== END 2016-11-26 12:30 | disposition home health service (06) | DRG 683 ==
LOC: EDBD 13:04 → M ED 14:14 → M ED INP 18:14 → M PCU 20:28 → M MSPAV 11-19 14:12 → M PCU 11-22 12:47 → M MSPAV 11-23 23:07
PROVIDERS: ADMIT Internal Medicine; ATTEND Internal Medicine
DX: N18.4 Chronic kidney disease, stage 4 (severe) (principal); A08.11 Acute gastroenteropathy due to Norwalk agent; N39.0 Urinary tract infection, site not specified; J10.1 Influenza due to other identified influenza virus with other respiratory manifestations; N13.30 Unspecified hydronephrosis; N17.9 Acute kidney failure, unspecified; M79.7 Fibromyalgia; E03.9 Hypothyroidism, unspecified; G47.33 Obstructive sleep apnea (adult) (pediatric); Z99.89 Dependence on other enabling machines and devices; K21.9 Gastro-esophageal reflux disease without esophagitis; F32.9 Major depressive disorder, single episode, unspecified; D50.9 Iron deficiency anemia, unspecified; E78.5 Hyperlipidemia, unspecified; I12.9 Hypertensive chronic kidney disease with stage 1 through stage 4 chronic kidney disease, or unspecified chronic kidney disease; R00.1 Bradycardia, unspecified; G25.81 Restless legs syndrome; B96.1 Klebsiella pneumoniae [K. pneumoniae] as the cause of diseases classified elsewhere; B95.62 Methicillin resistant Staphylococcus aureus infection as the cause of diseases classified elsewhere; Z79.82 Long term (current) use of aspirin; Z79.84 Long term (current) use of oral hypoglycemic drugs; Z79.52 Long term (current) use of systemic steroids; Z79.899 Other long term (current) drug therapy; Z88.5 Allergy status to narcotic agent; Z88.8 Allergy status to other drugs, medicaments and biological substances; Z91.048 Other nonmedicinal substance allergy status; Z88.7 Allergy status to serum and vaccine; Z93.2 Ileostomy status; Z90.49 Acquired absence of other specified parts of digestive tract; Z90.710 Acquired absence of both cervix and uterus; Z82.49 Family history of ischemic heart disease and other diseases of the circulatory system; Z83.6 Family history of other diseases of the respiratory system; Z80.49 Family history of malignant neoplasm of other genital organs; Z93.3 Colostomy status

== ENCOUNTER 2016-12-04 14:27 | Inpatient (IN) | payer MEDICARE, BC ==
[~2016-12-04] VITALS: Ht 165.1 cm; Wt 75.4 kg
[2016-12-04] MEDS: LEVOTHYROXINE 0.05 MG TAB (50 MCG) PO SCH (02:29)
[2016-12-04] MEDS: AMITRIPTYLINE 50 MG TAB PO SCH (02:57)
[~2016-12-04 14:27] MED LIST changes: +DOXY100T16 PO; +FERR325T PO; +LAMI250T3 PO; +PERCOCET PO; +PRED10TA PO
[2016-12-04] MEDS ORDERED: PROMETHAZINE INJ 25 MG/ML VIAL (J2550) IV ONE (15:00)
[2016-12-04 15:59] LABS: BASO % 0.1 % (0.0-1.0); EOS % 0.2 % (0.0-3.0); LARGE UNSTAINED CELL # 0.1 K/mm3 (0.0-0.4); LARGE UNSTAINED CELL % 1.1 % (0.0-4.0); LYMPH # 1.1 K/mm3 (1.5-4.5); LYMPH % 9.5 % (24.0-44.0); MEAN CORPUSCULAR HEMOGLOBIN 27.2 pg (27.0-33.0); MEAN CORPUSCULAR HGB CONC 31.8 g/dl (32.0-36.5); MEAN CORPUSCULAR VOLUME 85.5 fl (80.0-96.0); MONO # 0.5 K/mm3 (0.0-0.8); MONO % 3.9 % (0.0-5.0); NEUTROPHILS # 10.1 K/mm3 (1.8-7.7); NEUTROPHILS % 85.3 % (36.0-66.0); PLATELET COUNT, AUTOMATED 283 k/mm3 (150-450); RED CELL DISTRIBUTION WIDTH 18.7 % (11.5-14.5); WHITE BLOOD COUNT 11.8 K/mm3 (4.0-10.0)
[2016-12-04 16:18] LABS: ALBUMIN 3.2 GM/DL (3.2-5.2); ALBUMIN/GLOBULIN RATIO 0.64 (1.00-1.93); BILIRUBIN,DIRECT 0.2 MG/DL (0.0-0.2); BILIRUBIN,TOTAL 0.5 MG/DL (0.2-1.0); CALCIUM LEVEL 9.5 MG/DL (8.8-10.2); CREATININE FOR GFR 1.39 MG/DL (0.55-1.02); GLOMERULAR FILTRATION RATE 39.7 (>39); POTASSIUM SERUM 4.8 MEQ/L (3.5-5.1); TOTAL PROTEIN 8.2 GM/DL (6.4-8.2)
[2016-12-04] MEDS ORDERED: NS 1,000 ML IV SCH (16:30)
[2016-12-04] MEDS ORDERED: GASTROGRAFIN SOLUTION 30ML (Q9963) PO ONE ×2 (16:45→17:15)
[2016-12-04] MEDS: MORPHINE 4 MG/ML 1ML SYRINGE IV PRN ×2 (16:53→20:06)
[2016-12-04] MEDS ORDERED: ONDANSETRON 4MG/2ML VIAL (J2405) IV ONE ×2 (18:00→19:45)
--- NOTE | 2016-12-04 19:40 | REPUSA ---
CLINICAL HISTORY: Pancreatitis, frequent SBO's. TECHNIQUE: CT abdomen and pelvis without contrast. COMPARISON: November 14, 2016. CT ABDOMEN WITHOUT CONTRAST: Lung bases: No lung base infiltrate or effusion. Bibasilar dependent atelectasis. Liver: No intrahepatic ductal dilation. Enlargement of the left lobe and shrinking of the right lobe suggesting cirrhosis. Gallbladder: Cholecystectomy. Pancreas: Fatty atrophy. No pancreatic duct dilation. No specific findings to suggest acute pancreati tis. Bowel loops: There is mild gassy distention of the upper abdominal small bowel loops measuring up to 3.5 cm, without a discrete transition point to suggest obstruction. Spleen: 12.9 cm splenomegaly. Adrenals: Fatty right adrenal adenoma. Right kidney: Percutaneous nephrostomy tube is in good position. No stones or hydronephrosis. Left kidney: Percutaneous nephrostomy tube is in good position. No stones or hydronephrosis. Aorta: Normal caliber. Peritoneum: No free air. Lumbar spine: Laminectomy L2. Bony fusion at L4-5. CT PELVIS WITHOUT CONTRAST: Colon: Left lower quadrant colostomy. Bladder: Status post urinary diversion, with right lower quadrant urostomy. Pelvic organs: Unremarkable. Peritoneum: No fluid. Skeleton: No acute findings. IMPRESSION: 1. Mild gassy distention of the proximal small bowel loops, without discrete transition point to sugg est small bowel obstruction. If symptoms persist or worsen, consider complete PO prep with reimaging. 2. Bilateral percutaneous nephrostomy tubes and urinary diversion without hydronephrosis. 3. Findings of cirrhosis and splenomegaly.
[2016-12-04] MEDS ORDERED: MORPHINE 4 MG/ML 1ML SYRINGE IV ONE (19:45)
[2016-12-04] MEDS ORDERED: LIDOCAINE 5% (LIDODERM) PATCH TOP PRN (20:45)
[2016-12-04] MEDS ORDERED: DEXTROSE 50% 50 ML SYRINGE IV PRN (20:45)
[2016-12-04] MEDS ORDERED: DOCUSATE SODIUM 100 MG CAP PO PRN (20:45)
[2016-12-04] MEDS ORDERED: GLUCAGON FOR INJ 1 MG VIAL (J1610) SC PRN (20:45)
[2016-12-04] MEDS ORDERED: GLUCOSE 4 GM CHEW TABLET PO PRN (20:45)
[2016-12-04] MEDS ORDERED: ONDANSETRON 4MG/2ML VIAL (J2405) IV PRN (21:00)
[2016-12-04] MEDS ORDERED: **NOTE PATIENT COMMENT** MISC XX PRN (21:00)
[2016-12-04] MEDS ORDERED: BISACODYL 10 MG SUPP PR PRN (21:00)
[2016-12-04 22:25] VITALS: BP 161/86
[2016-12-04 22:33] LABS: THYROXINE (T4) 9.5 UG/DL (4.5-12.0)
[2016-12-05] MEDS: HEPARIN SOD (PORCINE) 5000 UNITS/ML VIAL SC SCH ×4 (00:47→20:30)
[2016-12-05] MEDS: MORPHINE 2 MG/ML 1ML SYRINGE IV PRN ×5 (00:47→20:31)
[2016-12-05] MEDS ORDERED: LIDOCAINE 5% OINT 30 GM TOP ONE (02:15)
[2016-12-05] MEDS ORDERED: LIDOCAINE 2% JELLY 30 ML TOP ONE (02:15)
[2016-12-05] MEDS: HumaLOG INSULIN (NovoLOG) PER UNIT SC SCH ×4 (02:31→18:00)
[2016-12-05] MEDS: LR 1,000 ML IV SCH ×3 (02:31→12:39)
[2016-12-05] MEDS: DULoxetine 30 MG CAP (CYMBALTA) PO SCH ×2 (02:42→20:27)
[2016-12-05] MEDS: rOPINIRole 1MG TAB PO SCH ×2 (02:55→20:28)
[2016-12-05] MEDS: METAXALONE 800 MG TABLET PO SCH ×4 (02:55→20:29)
[2016-12-05] MEDS: PREGABALIN 100 MG CAP (LYRICA) PO SCH ×4 (02:55→20:28)
[2016-12-05] MEDS: PANTOPRAZOLE 40MG INJ (PROTONIX) (C9113) IV SCH ×2 (02:56→20:29)
[2016-12-05] MEDS: METHADONE 10 MG TAB (S0109) PO SCH ×4 (02:57→20:29)
[2016-12-05 06:00] VITALS: BP 117/56
[2016-12-05 06:57] LABS: MEAN CORPUSCULAR HEMOGLOBIN 27.2 pg (27.0-33.0); MEAN CORPUSCULAR HGB CONC 32.4 g/dl (32.0-36.5); MEAN CORPUSCULAR VOLUME 84.1 fl (80.0-96.0); RED CELL DISTRIBUTION WIDTH 18.8 % (11.5-14.5); WHITE BLOOD COUNT 9.3 K/mm3 (4.0-10.0)
[2016-12-05 07:07] LABS: CALCIUM LEVEL 9.1 MG/DL (8.8-10.2); CREATININE FOR GFR 1.2 MG/DL (0.55-1.02); MAGNESIUM LEVEL 1.8 MG/DL (1.8-2.4); POTASSIUM SERUM 4.2 MEQ/L (3.5-5.1)
--- NOTE | 2016-12-05 08:09 | REP ---
Abdominal pain. COMPARISON: Frontal view of the chest 11/22/2016. There are bilateral nephrostomy tubes in place. There are a few gas-filled small bowel loops which have air-fluid levels on the upright view. There is no free intraperitoneal air. The accompanying frontal view of the chest shows chronic changes stable from 11/22/2016. There is no free subdiaphragmatic air. There are chronic osseous changes. IMPRESSION: Ileus is suspected. Correlate clinically with appropriate followup to rule out the possibility of early small bowel obstruction. Other findings as described above. Signed by Luis Lozano DO 12/05/2016 08:51 A
--- NOTE | 2016-12-05 09:24 | ECGEPIP ---
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
[2016-12-05] MEDS: PRAVASTATIN 20 MG TAB PO SCH (09:33)
[2016-12-05] MEDS: MULTIVITAMINS/MINERALS THERAP 1 TAB PO SCH (09:33)
[2016-12-05 14:00] VITALS: BP 127/66
[2016-12-05] MEDS: LEVOTHYROXINE 0.05 MG TAB (50 MCG) PO SCH (16:23)
[2016-12-05] MEDS: AMITRIPTYLINE 50 MG TAB PO SCH (20:29)
--- NOTE | 2016-12-05 21:29 | HPE ---
DATE OF ADMISSION: 12/04/2016 PRIMARY CARE PROVIDER: Dr. Malone. MECHANICAL LABORATORY TECHNICIAN: Dr. Rogers. CHIEF COMPLAINT: Nausea, vomiting and diarrhea. HISTORY OF PRESENT ILLNESS: This is a 71-year-old female patient with underlying medical history of chronic kidney disease (CKD), hypertension, hypothyroidism, obstructive sleep apnea on continuous positive airway pressure (CPAP) at home, restless leg syndrome, fibromyalgia, gastroesophageal reflux disease (GERD), depression, chronic abdominal pain, history of small bowel obstruction with status post ileostomy, urostomy, history of bilateral hydronephrosis requiring bilateral nephrostomy tube placement. The patient was recently admitted to the hospital on 11/14/2016. During her hospital course, the patient was found to have norovirus in gastrointestinal (GI) panel, methicillin-resistant Staphylococcus aureus (MRSA) in sputum, Klebsiella in urine, and influenza AH3. The patient was just recently discharged, but came back this time with worsening abdominal pain over the past two days with persistent nausea and vomiting more than 10 times over the last 24 hours, nonbloody, nonbilious, not having much oral, becoming dehydrated. Subsequently presented to the emergency room. The patient also reported chills with no documented fevers. Denies any chest pain, pressure, discomfort. Reported abdominal pain 9/10. Also reported fecal incontinence that has been chronic for the patient. Denies any chest pain, palpitations, shortness of breath. Was recently just discharged from the hospital. Denies any urinary complaints. No frequency, dysuria. Denies any melena. ALLERGIES: 1. CLONIDINE. 2. CODEINE. 3. CORTICOSTEROIDS. 4. FLU VIRUS VACCINE. 5. PNEUMOCOCCAL VACCINE. 6. QUINAPRIL. 7. TAPES. 8. AMBIEN. PAST MEDICAL HISTORY: 1. Chronic kidney disease (CKD). 2. Hypertension. 3. Hypothyroidism. 4. Obstructive sleep apnea on CPAP. 5. Fibromyalgia. 6. Restless leg syndrome. 7. Gastroesophageal reflux disease (GERD). 8. Depression. 9. Chronic abdominal pain. 10. History of small bowel obstruction with ileostomy and urostomy. 11. History of bilateral hydronephrosis. PAST SURGICAL HISTORY: 1. Small bowel obstruction requiring surgery. Placement of ileostomy, urostomy following the surgery, and bilateral nephrostomy tubes for bilateral hydronephrosis. 2. Appendectomy. 3. Cholecystectomy. 4. Spinal fusion two times. 5. Hysterectomy. FAMILY HISTORY: Positive congestive heart failure (CHF), chronic obstructive pulmonary disease (COPD), cervical cancer. SOCIAL HISTORY: Denies smoking, alcohol drinking or illicit drug use. REVIEW OF SYSTEMS: 10-point review of systems all negative except for those mentioned in history of present illness (HPI). HOME MEDICATIONS: - aspirin 81 mg by mouth at bedtime - vitamin B12 1000 mcg by mouth daily - ferrous sulfate 325 mg by mouth daily - lisinopril 20 mg by mouth daily - metformin 500 mg by mouth twice a day - ranitidine 300 mg by mouth twice a day - amitriptyline 100 mg by mouth at bedtime - Colace 100 mg by mouth daily as needed - duloxetine 30 mg by mouth at bedtime - Synthroid 50 mcg by mouth daily - lidocaine patch 5% daily as needed - metaxalone 800 mg by mouth three times a day - methadone 10 mg by mouth three times a day - multivitamin one tablet by mouth daily - pravastatin 20 mg by mouth daily - pregabalin 100 mg by mouth three times a day - Requip 1 mg by mouth at bedtime PHYSICAL EXAMINATION: VITAL SIGNS: Temperature 96, pulse 64, respirations 16, blood pressure 163/74, pulse oximetry 97% on room air. GENERAL: Patient alert and oriented times three, restless. Reported abdominal pain. HEENT: Normocephalic, atraumatic. PULMONARY: Bilaterally clear to auscultation. Distant breath sounds. CARDIAC: Regular S1, S2. ABDOMEN: Soft, obese. Surgical scare noticed. Ileostomy, urostomy noted. Mild tenderness to palpation diffusely. Hypoactive bowel sounds. EXTREMITIES: No edema bilateral lower extremities. LABORATORY DATA: WBC 11.8, hemoglobin and hematocrit 12.2 over 38.5, platelets 283. Chemistry: Sodium 142, potassium 4.8, chloride 108, bicarbonate 28, BUN 14, creatinine 1.39, lipase 52. CT of the abdomen shows mild, gassy distention in the proximal small bowel loops without discrete transition point to suggest small bowel obstruction. If symptoms persist or worsen, consider complete oral prep with re-imaging. Bilateral percutaneous nephrostomy tubes and urinary diversion with hydronephrosis, finding of cirrhosis and splenomegaly. ASSESSMENT AND PLAN: This is a 71-year-old female patient with underlying medical history of chronic kidney disease, hypertension, hypothyroidism, obstructive sleep apnea on CPAP, fibromyalgia, restless leg syndrome, depression, gastroesophageal reflux disease, chronic abdominal pain, history of small bowel obstruction with ileostomy, urostomy, and bilateral hydronephrosis with bilateral nephrostomy tubes, admitted with nausea, vomiting, abdominal pain, possibly partial small bowel obstruction. 1. Ileus and partial small bowel obstruction. The patient has multiple risk factors including multiple abdominal surgeries and also opioid use. We will place the patient nothing by mouth, intravenous (IV) fluids for hydration, as well as nasogastric (NG) tube to low suction. Surgery, Dr. Hallman, has been consulted. Bowel rest. We will consider local GI specific opioid receptor blocking agent if it is secondary to opioids. In the meantime, will continue to monitor. Pain medication was prescribed. 2. Acute kidney injury (SUPA) secondary to dehydration, nausea, vomiting. Zofran and IV fluids. Followup kidney function. Followup electrolytes. 3. Hypertension. Holding lisinopril given patient is in acute kidney injury. Will restart as needed. Monitor blood pressure. Holding aspirin. 4. Hypothyroidism. Continue Synthroid. 5. Obstructive sleep apnea. RUTHANN protocol. Encourage CPAP use. Family instructed to bring CPAP. 6. Fibromyalgia. Continue home medications, supportive care. 7. Restless leg syndrome. Continue current medication Requip. 8. Gastroesophageal reflux disease (GERD). Continue proton pump inhibitor (PPI). 9. Dyslipidemia. Continue statin. 10. Depression and anxiety. Continue current medication. 11. History of small bowel obstruction with ileostomy, urostomy. Management as per surgery. 12. Bilateral hydronephrosis with nephrostomy tube placement in the past. Will monitor patient. If the patient is febrile or showing signs of infection, we will culture urine from the nephrostomy tubes. In the meantime, we will continue to monitor. 13. Diabetes. Continue holding oral medications. Continue sliding scale per protocol. 14. Chronic abdominal pain. Pain medication as prescribed. Continue to monitor. 15. Deep venous thrombosis (DVT) prophylaxis. Heparin subcutaneous. DISPOSITION PLANNING: Pending clinical improvement, surgery consultation.
[2016-12-05 22:00] VITALS: BP 100/55
[2016-12-05] MEDS ORDERED: NALOXONE INJ 0.4 MG/1 ML VIAL (J2310) IV STA (23:15)
[2016-12-05 23:44] LABS: ABG BASE EXCESS 1.4 (-2.0-2.0); ABG PARTIAL PRESSURE CO2 35.7 mmHg (35.0-45.0); ABG PARTIAL PRESSURE O2 87.9 mmHg (75.0-100.0); ABG STANDARD HCO3 25.7 MEQ/L (22.0-26.0); ABG TOTAL CO2 26.1 MEQ/L (23.0-31.0); ABG pH (ARTERIAL) 7.463 UNITS (7.350-7.450)
--- NOTE | 2016-12-06 00:06 | IPNPDOC ---
Text Note Date of Service The patient was seen on 12/06/16. NOTE Called byr RN patient less responsive after morphine. Patient seen, arousal with sternal rub, pupil sluggish but responsive. Narcan given with immediate improvement. patient on con't O2, methadone dose reduced. abg done. Will con't to monitor. VS,Fishbone, I+O VS, Fishbone, I+O Laboratory Tests 12/05/16 06:24 Calcium Level 9.1, Red Blood Count 3.67 L, Mean Corpuscular Volume 84.1, Mean Corpuscular Hemoglobin 27.2, Mean Corpuscular Hemoglobin Concent 32.4, Red Cell Distribution Width 18.8 H Vital Signs Date Time Temp Pulse Resp B/P Pulse Ox O2 Delivery O2 Flow Rate FiO2 12/05/16 20:41 18 Room Air 12/05/16 14:00 96.8 82 127/66 94 I&O- Last 24 Hours up to 6 AM 12/06/16 06:00 Intake Total 955 ml Output Total 2085 ml Balance -1130 ml MYRNA PETERSON MD Dec 06, 2016 00:05
[2016-12-06] MEDS: HumaLOG INSULIN (NovoLOG) PER UNIT SC SCH ×4 (05:57→18:58)
[2016-12-06] MEDS: HEPARIN SOD (PORCINE) 5000 UNITS/ML VIAL SC SCH ×3 (05:57→21:42)
[2016-12-06] MEDS: LR 1,000 ML IV SCH ×3 (05:58→22:45)
[2016-12-06 06:00] VITALS: BP 135/70
[2016-12-06] MEDS: MORPHINE 2 MG/ML 1ML SYRINGE IV PRN ×3 (06:18→17:00)
[2016-12-06 08:09] LABS: MEAN CORPUSCULAR HEMOGLOBIN 26.8 pg (27.0-33.0); MEAN CORPUSCULAR HGB CONC 31.2 g/dl (32.0-36.5); MEAN CORPUSCULAR VOLUME 85.8 fl (80.0-96.0); RED CELL DISTRIBUTION WIDTH 18.7 % (11.5-14.5); WHITE BLOOD COUNT 5.2 K/mm3 (4.0-10.0)
[2016-12-06 08:12] LABS: CALCIUM LEVEL 8.4 MG/DL (8.8-10.2); CREATININE FOR GFR 1.06 MG/DL (0.55-1.02); GLOMERULAR FILTRATION RATE 54.2 (>39); MAGNESIUM LEVEL 1.9 MG/DL (1.8-2.4); POTASSIUM SERUM 4.1 MEQ/L (3.5-5.1)
[2016-12-06] MEDS: METHADONE 10 MG TAB (S0109) PO SCH ×2 (09:30→21:43)
[2016-12-06] MEDS: PREGABALIN 100 MG CAP (LYRICA) PO SCH ×3 (09:30→21:44)
[2016-12-06] MEDS: METAXALONE 800 MG TABLET PO SCH ×3 (09:30→21:44)
[2016-12-06] MEDS: PRAVASTATIN 20 MG TAB PO SCH (09:30)
[2016-12-06] MEDS: MULTIVITAMINS/MINERALS THERAP 1 TAB PO SCH (09:30)
--- NOTE | 2016-12-06 09:34 | IPN ---
DATE: 12/05/2016 Ms. Miller is sleepy, but easily aroused. She still has abdominal discomfort, mainly in the left. She said her stools have been looser than normal. She is not having chest pain. She is not hungry. She was able to sleep some last night. Temperature 98.9, pulse 63, respiratory rate 18, blood pressure 117/56, 94% on room air. Intake and output notable for a positive fluid balance of 1000. Weight is 74.6 kg with a body mass index of 27.4. She is easily aroused, pleasantly interactive, alert and oriented times three. She remembers me from previous encounters. Mucous membranes are moist. Neck is supple. Breathing is symmetrically diminished. No accessory muscle use. I:E ratio is 1:4. Heart is distant sounding, normal S1, S2. Radial pulses 2+. Abdomen is notable for hypoactive bowel sounds. Left lower quadrant tenderness without rebound or guarding. No significant lower extremity edema. White count 9.3, hemoglobin 10, platelets of 229. BUN 17, creatinine 1.2, and magnesium 1.8. Abdominal and pelvis CT from last night showed distention of proximal small bowel loops, bilateral percutaneous nephrostomy tubes without hydronephrosis, cirrhosis, and splenomegaly. My assessment is as follows: This is a 71-year-old with a partial small bowel obstruction. Please note that my progress note will be somewhat limited as the history and physical (H P) dictated on 12/04/2016, is yet to be transcribed. 1. Gastrointestinal (GI). Patient has a partial small bowel obstruction and will be seen by Dr. Hallman. Consultation has been ordered, awaiting his input. She is currently nothing by mouth and does not have an acute abdomen. I am also awaiting stool studies from her ostomy. She says her ostomy output has been looser than normal. I do not expect that this is recurrent norovirus, but the possibility of Clostridium (C) difficile does occur to me. 2. The patient has chronic kidney disease and baseline creatinine is in the normal range. She has presented with evidence of acute renal failure and is receiving IV hydration. 3. The patient has history of anemia. Was not anemic upon arrival, but with hydration hemoglobin has dropped to 10. Will continue to follow. 4. The patient has history of bilateral hydronephrosis. No evidence of that on repeat CT scan and both nephrostomy tubes are draining appropriately. 5. The patient has appropriate deep venous thrombosis (DVT) prophylaxis. 6. The patient has chronic pain and is on methadone. Methadone is currently given at her home dose.
[2016-12-06 14:00] VITALS: BP 123/85
[2016-12-06] MEDS: LEVOTHYROXINE 0.05 MG TAB (50 MCG) PO SCH (15:21)
--- NOTE | 2016-12-06 15:26 | IPN ---
DATE: 12/06/2016 Ms. Miller had a period of decreased response this past night, was given Narcan with immediate improvement. Her methadone dose was decreased. She is feeling well this morning. She says her pain is worse than normal, about her chronic pain, she has no abdominal pain. Temperature is 98, pulse 58, respiratory rate 18, blood pressure 135/70, 96% on 2 liters. Intake and output (I and O) notable for a negative fluid balance of - 380. Three episodes of emesis yesterday, none today. Drainage from her ostomy yesterday was 1550. GI panel was negative. She is awake, appropriately interactive. Pleasantly conversant. A good historian. Mucous membranes are moist. Neck is supple. Breathing diminished throughout. Inspiratory to expiratory (I-to-E) ratio is 1:3. Heart is in regular rate and rhythm. Abdomen is soft, active bowel sounds, nontender. There is no output in her ileostomy bag, but her urostomy bag does have urine. White cell count 5.2, hemoglobin 8.7, trending downward and platelets of 157. Her baseline hemoglobin may actually be in the high 8s. BUN 15, creatinine 1.06. Magnesium 1.9. ASSESSMENT: This is a 71-year-old with partial small bowel obstruction, which appeared to be resolving. PLAN: 1. The patient's ileus and partial small bowel obstruction will advance to clears. Awaiting input from Dr. Hallman. 2. The patient has resolving acute kidney injury, related to dehydration, nausea and vomiting. She is improving. No significant electrolyte abnormality at this time. 3. The patient has hypertension. I have held angiotensin-converting enzyme (VINCENT) inhibitor. Holding aspirin. 4. The patient has hypothyroidism. On Synthroid. 5. The patient has obstructive sleep apnea. 6. The patient has fibromyalgia and chronic pain. Continue methadone at a lower dose based on her decreased responsiveness last night. Of note, this did happen during the last admission too. The patient is concerned that it may be related to Cymbalta, so that is discontinued. 7. The patient has bilateral hydronephrosis with nephrostomy tube placement bilaterally and a cystotomy. 8. The patient has diabetes. 9. The patient has chronic abdominal pain. 10. Deep venous thrombosis (DVT) prophylaxis were ordered. 11. Toxic encephalopathy due to Morphine / Methadone causing acute change in LOC MTDD
[2016-12-06] MEDS: PANTOPRAZOLE 40MG INJ (PROTONIX) (C9113) IV SCH (21:41)
[2016-12-06] MEDS: rOPINIRole 1MG TAB PO SCH (21:43)
[2016-12-06] MEDS: AMITRIPTYLINE 50 MG TAB PO SCH (21:43)
[2016-12-06 22:00] VITALS: BP 134/60
[2016-12-07 06:00] VITALS: BP 139/63
[2016-12-07] MEDS: HumaLOG INSULIN (NovoLOG) PER UNIT SC SCH ×4 (06:00→18:00)
[2016-12-07] MEDS: HEPARIN SOD (PORCINE) 5000 UNITS/ML VIAL SC SCH ×3 (06:26→21:58)
[2016-12-07] MEDS: LR 1,000 ML IV SCH (06:26)
[2016-12-07 07:23] LABS: MEAN CORPUSCULAR HEMOGLOBIN 27.1 pg (27.0-33.0); MEAN CORPUSCULAR HGB CONC 31.7 g/dl (32.0-36.5); MEAN CORPUSCULAR VOLUME 85.5 fl (80.0-96.0); RED CELL DISTRIBUTION WIDTH 18.2 % (11.5-14.5); WHITE BLOOD COUNT 4.3 K/mm3 (4.0-10.0)
[2016-12-07 07:44] LABS: ANION GAP 6 MEQ/L (8-16); BLOOD UREA NITROGEN 11 MG/DL (7-18); CALCIUM LEVEL 8.6 MG/DL (8.8-10.2); CARBON DIOXIDE LEVEL 30 MEQ/L (21-32); CHLORIDE LEVEL 106 MEQ/L (98-107); CREATININE FOR GFR 0.95 MG/DL (0.55-1.02); GLOMERULAR FILTRATION RATE > 60.0 (>39); GLUCOSE, FASTING 70 MG/DL (83-110); MAGNESIUM LEVEL 1.8 MG/DL (1.8-2.4); POTASSIUM SERUM 3.8 MEQ/L (3.5-5.1); SODIUM LEVEL 142 MEQ/L (136-145)
--- NOTE | 2016-12-07 08:49 | REP ---
Portable chest x-ray: Single view. History: Cough and congestion. Comparison chest x-ray is from December 04, 2016. Findings: Nasogastric tube is seen entering the left upper quadrant of the abdomen. Heart size is borderline on this AP portable chest x-ray. There is slight pleural thickening at the inferolateral chest kennedy bilaterally. No samantha pleural effusion is seen. Pulmonary vasculature is slightly cephalized. There is a dextroconvex curvature of the thoracic spine along with degenerative disc changes. Impression: Borderline heart size and slight cephalization of the pulmonary vasculature. No pulmonary edema or samantha pleural effusion seen. No focal infiltrate noted. Signed by Jose Enrique Booker MD 12/07/2016 03:36 P
[2016-12-07] MEDS: MULTIVITAMINS/MINERALS THERAP 1 TAB PO SCH (09:43)
[2016-12-07] MEDS: METAXALONE 800 MG TABLET PO SCH ×3 (09:44→21:58)
[2016-12-07] MEDS: PREGABALIN 100 MG CAP (LYRICA) PO SCH ×3 (09:44→21:58)
[2016-12-07] MEDS: PRAVASTATIN 20 MG TAB PO SCH (09:44)
[2016-12-07] MEDS: METHADONE 10 MG TAB (S0109) PO SCH ×2 (09:45→21:59)
--- NOTE | 2016-12-07 12:03 | IPNPDOC ---
Subjective Date Seen The patient was seen on 12/07/16. Subjective Chief Complaint/HPI The patient is a 71-year-old female admitted with a reason for visit of Acute Kidney Inj. Events since last encounter complaining of cough and chest congestion , had bowel movement last night and says is passing gas, no abdominal pain , has ng tube still in place. Objective Physical Examination General Exam: Positive: Alert, No Acute Distress Eye Exam: Positive: Conjunctiva & lids normal, EOMI, PERRLA, Negative: Sclera icteric ENT Exam: Positive: Atraumatic, Mucous membr. moist/pink, Pharynx Normal Neck Exam: Positive: Supple, Negative: JVD, thyromegaly Chest Exam: Positive: Clear to auscultation, Normal air movement Heart Exam: Positive: Normal S1, Normal S2, Rate Normal, Regular Rhythm, Negative: Murmurs, Rubs Abdomen Exam: Positive: Normal bowel sounds, Other (has bilateral percutaneous nephrostomies and ureteral diversion. ), Soft, Negative: Hepatospenomegaly, Tenderness Extremity Exam: Positive: Normal pulses, Negative: Clubbing, Cyanosis, Edema Skin Exam: Positive: Nl turgor and temperature, Negative: Breakdown, Rash Assessment /Plan Problems (1) Partial small bowel obstruction Status: Acute Problem Text: improving , on NG tube to continuous suction as per surgery. (2) Ileus Status: Acute Problem Text: improving (3) Acute kidney injury Status: Resolved (4) Nephrostomy status Status: Chronic Problem Text: has bilateral percutaneous nephrostomies chronic. (5) HTN (hypertension) Status: Chronic (6) Diabetes mellitus Status: Chronic (7) Hypothyroidism Status: Chronic (8) RUTHANN on CPAP Status: Chronic (9) GERD (gastroesophageal reflux disease) Status: Chronic (10) Restless leg syndrome Status: Chronic (11) Fibromyalgia Status: Chronic (12) Adrenal adenoma Status: Chronic (13) Presence of urostomy Status: Chronic (14) Colostomy present Status: Chronic Problem Text: Status post colostomy and urostomy placement following multiple abdominal surgeries in the past with h/o urinary and stool incontinence present from 1997. Patient had a fall and back injury in followed by uterine prolapse, cystocele and rectocele had multiple sling and suspension procedures without any improvement . Started having recurrent intestinal and colonic obstructions from adhesions and ultimately underwent colostomy and urostomy. However continued to have SBOs so had several bowel resections. No acute complaints at this time. Plan/VTE VTE Prophylaxis Ordered?: Yes VS, I&O, 24H, Fishbone Vital Signs/I&O Vital Signs Date Time Temp Pulse Resp B/P Pulse Ox O2 Delivery O2 Flow Rate FiO2 12/07/16 10:51 91 Room Air 12/07/16 09:45 16 12/07/16 08:05 2.0 12/07/16 06:00 97.5 58 139/63 I&O- Last 24 Hours up to 6 AM 12/07/16 05:59 Intake Total 2386 ml Output Total 1075 ml Balance 1311 ml Laboratory Data 24H LABS Laboratory Tests 2 12/06/16 11:50: Bedside Glucose (Misc Panel) 114H 12/06/16 18:57: Bedside Glucose (Misc Panel) 85 12/07/16 05:44: Bedside Glucose (Misc Panel) 73L 12/07/16 07:06: Anion Gap 6L, Blood Urea Nitrogen 11, Creatinine 0.95, Sodium Level 142, Potassium Level 3.8, Chloride Level 106, Carbon Dioxide Level 30, Calcium Level 8.6L, Glomerular Filtration Rate > 60.0, Magnesium Level 1.8 12/07/16 11:34: Bedside Glucose (Misc Panel) 74L CBC/BMP Laboratory Tests 12/07/16 07:06 Calcium Level 8.6 L, Red Blood Count 3.25 L, Mean Corpuscular Volume 85.5, Mean Corpuscular Hemoglobin 27.1, Mean Corpuscular Hemoglobin Concent 31.7 L, Red Cell Distribution Width 18.2 H Microbiology Microbiology 12/05/16 Gastrointestinal Tract Panel (PCR) - Final, Complete NAT VANEGAS MD Dec 07, 2016 12:03
[2016-12-07 14:00] VITALS: BP 149/62
[2016-12-07] MEDS: MORPHINE 2 MG/ML 1ML SYRINGE IV PRN (14:17)
[2016-12-07] MEDS: LEVOTHYROXINE 0.05 MG TAB (50 MCG) PO SCH (16:40)
[2016-12-07] MEDS: D5W/0.9% SODIUM CHLORIDE 1,000 ML IV SCH (18:30)
[2016-12-07] MEDS: PANTOPRAZOLE 40MG INJ (PROTONIX) (C9113) IV SCH (21:58)
[2016-12-07] MEDS: AMITRIPTYLINE 50 MG TAB PO SCH (21:58)
[2016-12-07] MEDS: rOPINIRole 1MG TAB PO SCH (21:58)
[2016-12-07 22:00] VITALS: BP 142/69
[2016-12-08 02:51] VITALS: BP 128/63
[2016-12-08] MEDS: HumaLOG INSULIN (NovoLOG) PER UNIT SC SCH ×4 (06:00→18:05)
[2016-12-08] MEDS: HEPARIN SOD (PORCINE) 5000 UNITS/ML VIAL SC SCH ×3 (06:00→21:18)
[2016-12-08 06:09] VITALS: BP 143/67
[2016-12-08 07:18] LABS: MEAN CORPUSCULAR VOLUME 89.9 fl (80.0-96.0); WHITE BLOOD COUNT 3.8 K/mm3 (4.0-10.0)
[2016-12-08 07:38] LABS: ANION GAP 10 MEQ/L (8-16); BLOOD UREA NITROGEN 8 MG/DL (7-18); CALCIUM LEVEL 7.4 MG/DL (8.8-10.2); CARBON DIOXIDE LEVEL 23 MEQ/L (21-32); CHLORIDE LEVEL 109 MEQ/L (98-107); CREATININE FOR GFR 0.75 MG/DL (0.55-1.02); GLOMERULAR FILTRATION RATE > 60.0 (>39); GLUCOSE, FASTING 82 MG/DL (83-110); MAGNESIUM LEVEL 1.5 MG/DL (1.8-2.4); POTASSIUM SERUM 3.9 MEQ/L (3.5-5.1); SODIUM LEVEL 142 MEQ/L (136-145)
[2016-12-08] MEDS: D5W/0.9% SODIUM CHLORIDE 1,000 ML IV SCH (07:50)
[2016-12-08] MEDS: PREGABALIN 100 MG CAP (LYRICA) PO SCH ×3 (10:30→20:07)
[2016-12-08] MEDS: PRAVASTATIN 20 MG TAB PO SCH (10:30)
[2016-12-08] MEDS: METHADONE 10 MG TAB (S0109) PO SCH ×2 (10:31→20:07)
[2016-12-08] MEDS: MULTIVITAMINS/MINERALS THERAP 1 TAB PO SCH (10:31)
[2016-12-08] MEDS: METAXALONE 800 MG TABLET PO SCH ×3 (12:18→20:07)
--- NOTE | 2016-12-08 13:20 | IPNPDOC ---
Subjective Date Seen The patient was seen on 12/08/16. Subjective Chief Complaint/HPI The patient is a 71-year-old female admitted with a reason for visit of Acute Kidney Inj. Events since last encounter NG tube out , tolerating oral liquids. abdominal pain has resolved. Objective Physical Examination General Exam: Positive: Alert, No Acute Distress Eye Exam: Positive: Conjunctiva & lids normal, EOMI, PERRLA, Negative: Sclera icteric ENT Exam: Positive: Atraumatic, Mucous membr. moist/pink, Pharynx Normal Neck Exam: Positive: Supple, Negative: JVD, thyromegaly Chest Exam: Positive: Clear to auscultation, Normal air movement Heart Exam: Positive: Normal S1, Normal S2, Rate Normal, Regular Rhythm, Negative: Murmurs, Rubs Abdomen Exam: Positive: Normal bowel sounds, Other (has bilateral percutaneous nephrostomies and ureteral diversion. ), Soft, Negative: Hepatospenomegaly, Tenderness Extremity Exam: Positive: Normal pulses, Negative: Clubbing, Cyanosis, Edema Skin Exam: Positive: Nl turgor and temperature, Negative: Breakdown, Rash Assessment /Plan Problems (1) Partial small bowel obstruction Status: Acute Problem Text: resolved , started clear liquids. will dc ivf this pm at 7 if tolerating oral fluids. (2) Ileus Status: Resolved (3) Acute kidney injury Status: Resolved (4) Nephrostomy status Status: Chronic Problem Text: has bilateral percutaneous nephrostomies chronic from march 2016 (5) HTN (hypertension) Status: Chronic (6) Diabetes mellitus Status: Chronic (7) Hypothyroidism Status: Chronic (8) RUTHANN on CPAP Status: Chronic (9) GERD (gastroesophageal reflux disease) Status: Chronic (10) Restless leg syndrome Status: Chronic (11) Fibromyalgia Status: Chronic (12) Adrenal adenoma Status: Chronic (13) Presence of urostomy Status: Chronic (14) Colostomy present Status: Chronic Problem Text: Status post colostomy and urostomy placement following multiple abdominal surgeries in the past with h/o urinary and stool incontinence present from 1997. Patient had a fall and back injury in followed by uterine prolapse, cystocele and rectocele had multiple sling and suspension procedures without any improvement . Started having recurrent intestinal and colonic obstructions from adhesions and ultimately underwent colostomy and urostomy. However continued to have SBOs so had several bowel resections. No acute complaints at this time. Plan/VTE VTE Prophylaxis Ordered?: Yes VS, I&O, 24H, Fishbone Vital Signs/I&O Vital Signs Date Time Temp Pulse Resp B/P Pulse Ox O2 Delivery O2 Flow Rate FiO2 12/08/16 10:31 18 12/08/16 08:15 Nasal Cannula 2.0 12/08/16 08:00 95 12/08/16 06:09 97.3 47 143/67 I&O- Last 24 Hours up to 6 AM 12/08/16 06:00 Intake Total 2150 ml Output Total 1000 ml Balance 1150 ml Laboratory Data 24H LABS Laboratory Tests 2 12/07/16 19:58: Bedside Glucose (Misc Panel) 83 12/08/16 02:36: Bedside Glucose (Misc Panel) 87 12/08/16 06:00: Bedside Glucose (Misc Panel) 92 12/08/16 06:36: Anion Gap 10, Blood Urea Nitrogen 8, Creatinine 0.75, Sodium Level 142, Potassium Level 3.9, Chloride Level 109H, Carbon Dioxide Level 23, Calcium Level 7.4L, Glomerular Filtration Rate > 60.0, Magnesium Level 1.5L 12/08/16 12:05: Bedside Glucose (Misc Panel) 118H CBC/BMP Laboratory Tests 12/08/16 06:36 Calcium Level 7.4 L, Red Blood Count 3.12 L, Mean Corpuscular Volume 89.9, Mean Corpuscular Hemoglobin 27.0, Mean Corpuscular Hemoglobin Concent 30.0 L, Red Cell Distribution Width 18.0 H Microbiology Microbiology 12/05/16 Gastrointestinal Tract Panel (PCR) - Final, Complete NAT VANEGAS MD Dec 08, 2016 13:20
[2016-12-08 14:00] VITALS: BP 126/87
[2016-12-08] MEDS: LEVOTHYROXINE 0.05 MG TAB (50 MCG) PO SCH (15:24)
[2016-12-08] MEDS: AMITRIPTYLINE 50 MG TAB PO SCH (20:06)
[2016-12-08] MEDS: PANTOPRAZOLE 40MG INJ (PROTONIX) (C9113) IV SCH (20:07)
[2016-12-08] MEDS: rOPINIRole 1MG TAB PO SCH (20:07)
[2016-12-08 22:00] VITALS: BP 134/66
[2016-12-09 06:00] VITALS: BP 104/50
[2016-12-09] MEDS: HEPARIN SOD (PORCINE) 5000 UNITS/ML VIAL SC SCH ×3 (06:54→21:38)
[2016-12-09] MEDS: HumaLOG INSULIN (NovoLOG) PER UNIT SC SCH ×4 (06:54→18:05)
[2016-12-09] MEDS: PRAVASTATIN 20 MG TAB PO SCH (07:46)
[2016-12-09] MEDS: MULTIVITAMINS/MINERALS THERAP 1 TAB PO SCH (07:47)
[2016-12-09] MEDS: METAXALONE 800 MG TABLET PO SCH ×3 (07:47→21:41)
[2016-12-09] MEDS: PREGABALIN 100 MG CAP (LYRICA) PO SCH ×3 (07:47→21:40)
[2016-12-09] MEDS: METHADONE 10 MG TAB (S0109) PO SCH ×2 (07:48→21:41)
[2016-12-09 09:09] LABS: MEAN CORPUSCULAR HEMOGLOBIN 26.2 pg (27.0-33.0); MEAN CORPUSCULAR HGB CONC 30.9 g/dl (32.0-36.5); RED CELL DISTRIBUTION WIDTH 18.4 % (11.5-14.5); WHITE BLOOD COUNT 3.9 K/mm3 (4.0-10.0)
[2016-12-09 09:15] LABS: MEAN CORPUSCULAR VOLUME 84.7 fl (80.0-96.0)
[2016-12-09 09:39] LABS: ANION GAP 7 MEQ/L (8-16); BLOOD UREA NITROGEN 4 MG/DL (7-18); CALCIUM LEVEL 7.8 MG/DL (8.8-10.2); CARBON DIOXIDE LEVEL 29 MEQ/L (21-32); CHLORIDE LEVEL 105 MEQ/L (98-107); CREATININE FOR GFR 0.94 MG/DL (0.55-1.02); GLOMERULAR FILTRATION RATE > 60.0 (>39); GLUCOSE, FASTING 132 MG/DL (83-110); MAGNESIUM LEVEL 1.4 MG/DL (1.8-2.4); SODIUM LEVEL 141 MEQ/L (136-145)
--- NOTE | 2016-12-09 12:31 | IPNPDOC ---
Subjective Date Seen The patient was seen on 12/09/16. Subjective Chief Complaint/HPI The patient is a 71-year-old female admitted with a reason for visit of Acute Kidney Inj. Events since last encounter feeling better, abdominal pain has resolved, no nausea or vomiting. pateint's internal aydryl-[id number] conduit stent was removed by interventional radiologist in [place] on the recommendation of her new urologist there and bilateral nephrostomy tubes were put back in end of sep 2016 is is scheduled for a nephrostomy tube change on december 13. Objective Physical Examination General Exam: Positive: Alert, No Acute Distress Eye Exam: Positive: Conjunctiva & lids normal, EOMI, PERRLA, Negative: Sclera icteric ENT Exam: Positive: Atraumatic, Mucous membr. moist/pink, Pharynx Normal Neck Exam: Positive: Supple, Negative: JVD, thyromegaly Chest Exam: Positive: Clear to auscultation, Normal air movement Heart Exam: Positive: Normal S1, Normal S2, Rate Normal, Regular Rhythm, Negative: Murmurs, Rubs Abdomen Exam: Positive: Normal bowel sounds, Other (has bilateral percutaneous nephrostomies and ureteral diversion. ), Soft, Negative: Hepatospenomegaly, Tenderness Extremity Exam: Positive: Normal pulses, Negative: Clubbing, Cyanosis, Edema Skin Exam: Positive: Nl turgor and temperature, Negative: Breakdown, Rash Assessment /Plan Problems (1) Partial small bowel obstruction Status: Acute Problem Text: resolved started regular diet. (2) Ileus Status: Resolved (3) Acute kidney injury Status: Resolved (4) Nephrostomy status Status: Chronic Problem Text: has bilateral percutaneous nephrostomies chronic placed in end sep 2016 by interventional radiologist in [place] on the recommendation of her new urologist there. Patient initially had bilateral nephrostomy tubes placed in [place] in mar 2016 due to bilateral hydronephrosis due to STENOSIS INVOLVING THE URETEROILEAL CONDUIT ANASTOMOSIS AND NARROWING OF ILEAL CONDUCT. The nephrostomies were successfully internalized to Transileal Retrograde Nephroureteral Drainage Catheter (Stent) by Dr Clarke in may 2016 and last changed in sep 2016. However she went to see her new urologist in [place] in sep 2016 and they took out the stent and put in the nephrostomy tubes. Patient is unsure why it was done. (5) HTN (hypertension) Status: Chronic (6) Diabetes mellitus Status: Chronic (7) Hypothyroidism Status: Chronic (8) RUTHANN on CPAP Status: Chronic (9) GERD (gastroesophageal reflux disease) Status: Chronic (10) Restless leg syndrome Status: Chronic (11) Fibromyalgia Status: Chronic (12) Adrenal adenoma Status: Chronic (13) Presence of urostomy Status: Chronic Problem Text: Had total cystectomy and uretero-ileal conduit creation in 1997 with urotomy bag in position. this was due to complications following surgery for uterine prolapse , cystocele complicated by adhesions and multiple bowel obstruction ultimately leading to bowel perforation requiring colonic resection , total cystectomy and creation of uretero ileal conduit and colostomy. (14) Colostomy present Status: Chronic Problem Text: Status post colostomy and urostomy placement following multiple abdominal surgeries in the past with h/o urinary and stool incontinence present from 1997. Patient had a fall and back injury in followed by uterine prolapse, cystocele and rectocele had multiple sling and suspension procedures without any improvement . Started having recurrent intestinal and colonic obstructions from adhesions and ultimately underwent colostomy and urostomy. However continued to have SBOs so had several bowel resections. No acute complaints at this time. Plan/VTE VTE Prophylaxis Ordered?: Yes VS, I&O, 24H, Fishbone Vital Signs/I&O Vital Signs Date Time Temp Pulse Resp B/P Pulse Ox O2 Delivery O2 Flow Rate FiO2 12/09/16 07:48 18 97 Room Air 12/09/16 06:00 97.4 45 104/50 2.0 I&O- Last 24 Hours up to 6 AM 12/09/16 05:59 Intake Total 3070 ml Output Total 1127 ml Balance 1943 ml Laboratory Data 24H LABS Laboratory Tests 2 12/08/16 17:48: Bedside Glucose (Misc Panel) 212H 12/09/16 00:01: Bedside Glucose (Misc Panel) 117H 12/09/16 06:26: Bedside Glucose (Misc Panel) 132H 12/09/16 08:55: Anion Gap 7L, Blood Urea Nitrogen 4L, Creatinine 0.94, Sodium Level 141, Potassium Level 3.0#L, Chloride Level 105, Carbon Dioxide Level 29, Calcium Level 7.8L, Glomerular Filtration Rate > 60.0, Magnesium Level 1.4L CBC/BMP Laboratory Tests 12/09/16 08:55 Calcium Level 7.8 L, Red Blood Count 3.31 L, Mean Corpuscular Volume 84.7 #, Mean Corpuscular Hemoglobin 26.2 L, Mean Corpuscular Hemoglobin Concent 30.9 L, Red Cell Distribution Width 18.4 H Microbiology Microbiology 12/05/16 Gastrointestinal Tract Panel (PCR) - Final, Complete NAT VANEGAS MD Dec 09, 2016 12:31
[2016-12-09 14:00] VITALS: BP 116/65
[2016-12-09] MEDS: LEVOTHYROXINE 0.05 MG TAB (50 MCG) PO SCH (14:42)
[2016-12-09] MEDS ORDERED: POTASSIUM CHLORIDE 10 MEQ SR TABLET PO ONE (18:00)
[2016-12-09] MEDS ORDERED: HumaLOG INSULIN (NovoLOG) PER UNIT SC SCH (21:00)
[2016-12-09] MEDS: PANTOPRAZOLE 40MG INJ (PROTONIX) (C9113) IV SCH (21:39)
[2016-12-09] MEDS: rOPINIRole 1MG TAB PO SCH (21:39)
[2016-12-09] MEDS: AMITRIPTYLINE 50 MG TAB PO SCH (21:40)
[2016-12-09 22:00] VITALS: BP 133/59
[2016-12-10] MEDS: HEPARIN SOD (PORCINE) 5000 UNITS/ML VIAL SC SCH (05:53)
[2016-12-10 06:00] VITALS: BP 134/58
[2016-12-10 07:39] LABS: MEAN CORPUSCULAR HEMOGLOBIN 26.9 pg (27.0-33.0); MEAN CORPUSCULAR HGB CONC 31.7 g/dl (32.0-36.5); WHITE BLOOD COUNT 3.5 K/mm3 (4.0-10.0)
[2016-12-10 08:02] LABS: ANION GAP 6 MEQ/L (8-16); BLOOD UREA NITROGEN 4 MG/DL (7-18); CALCIUM LEVEL 7.5 MG/DL (8.8-10.2); CARBON DIOXIDE LEVEL 29 MEQ/L (21-32); CHLORIDE LEVEL 111 MEQ/L (98-107); CREATININE FOR GFR 0.85 MG/DL (0.55-1.02); GLOMERULAR FILTRATION RATE > 60.0 (>39); GLUCOSE, FASTING 115 MG/DL (83-110); MAGNESIUM LEVEL 1.5 MG/DL (1.8-2.4); POTASSIUM SERUM 3.6 MEQ/L (3.5-5.1); SODIUM LEVEL 146 MEQ/L (136-145)
[2016-12-10] MEDS ORDERED: POTASSIUM CHLORIDE 10 MEQ SR TABLET PO SCH (09:00)
[2016-12-10] MEDS: METHADONE 10 MG TAB (S0109) PO SCH (09:36)
[2016-12-10] MEDS: METAXALONE 800 MG TABLET PO SCH (09:36)
[2016-12-10] MEDS: MULTIVITAMINS/MINERALS THERAP 1 TAB PO SCH (09:36)
[2016-12-10] MEDS: PREGABALIN 100 MG CAP (LYRICA) PO SCH (09:36)
[2016-12-10] MEDS: MAG SULF 1GM/100ML (MAG RUN) 1 GM in APPROPRIATE DILUENT 1 EA IV SCH ×2 (09:38→09:39)
[2016-12-10] MEDS: HumaLOG INSULIN (NovoLOG) PER UNIT SC SCH ×2 (09:38→12:00)
[2016-12-10] MEDS: PRAVASTATIN 20 MG TAB PO SCH (09:38)
--- NOTE | 2016-12-10 14:00 | DSES ---
DATE OF ADMISSION: 12/04/2016 DATE OF DISCHARGE: PRIMARY CARE PROVIDER: Dr. Malone MANAGER OF DISASTER RECOVERY: Dr. Rogers UROLOGIST: In [place]. DISCHARGE DIAGNOSES: 1. Partial small bowel obstruction and ileus. 2. Acute kidney injury. 3. Bilateral nephrostomy tubes present, placed in September 2016 in [place]. 4. Hypertension. 5. Diabetes. 6. Hypothyroidism. 7. Obstructive sleep apnea on continuous positive airway pressure (CPAP). 8. Gastroesophageal reflux disease (GERD). 9. Restless leg syndrome. 10. Fibromyalgia. 11. Adrenal adenoma. 12. Presence of ileoconduit and ileostomy bag. 13. Presence of colostomy. 14. Chronic back pain and radiculopathy, more on the left. 15. Excessive sedation and hypoventilation after administration of Cymbalta. 16. Cirrhosis of liver and splenomegaly, as per CT scan. 17. Chronic anemia with iron deficiency. DISCHARGE MEDICATIONS: - amitriptyline 100 mg at bedtime - aspirin 81 mg daily - Syn-cholamine 1000 mcg daily - Colace 100 mg by mouth daily - ferrous sulfate 325 mg by mouth daily - Synthroid 50 mcg by mouth daily - Lidocaine patch 5%, four patches topically daily - Lisinopril 20 mg by mouth daily - Skelaxin 800 mg by mouth three times a day - metformin 500 mg by mouth twice a day - methadone 10 mg by mouth three times a day - multivitamin one tablet by mouth daily - pravastatin 20 mg by mouth daily - Lyrica 100 mg by mouth three times a day - ranitidine 300 mg by mouth twice a day - Requip 1 mg by mouth at bedtime HOSPITAL COURSE: This is a 71-year-old female who has a history of multiple abdominal surgeries for uterine prolapse, cystocele, rectocele, with multiple sling and suspension procedures in , which ultimately resulted in total hysterectomy and creation of ileoconduit and placement or urostomy bag and placement of colostomy in 1997. The patient presented this time with several episodes of nausea, vomiting, and diarrhea going on for 1 to 2 days, and the patient was found to have partial small bowel obstruction. The patient was seen by surgery, Dr. Hallman, and was placed on nasogastric tube and nothing by mouth. With that, her partial small bowel obstruction and ileus resolved. 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 Clarke, so she had trans ileal retrograde nephroureteral drainage catheter, which was changed last in September 2016; however, the patient went to see her new urologist in [place] and on recommendation of the urologist, the stent was taken out by their interventional radiologist and bilateral nephrostomy tubes were replaced. The patient is unsure why it was done as she did not have any complaints and her urostomy was draining fine. At present, the patient has two bilateral percutaneous nephrostomies, colostomy and the urostomy bag. The patient responded well to conservative management with resolution of her bowel obstruction. The patient was successfully advanced to a regular diet, which she is tolerating. Her abdominal pain has resolved. She continues to have her chronic back pain and lumbar radiculopathy. She did become very sedated with hypoventilation, requiring reversal by Narcan after administration of Cymbalta on top of her baseline methadone and other medications. As per the patient, this is the second time that this has happened and at home she never takes Cymbalta, so the Cymbalta was discontinued from her medication list. At present, her symptoms have resolved. She is functionally at baseline. Vitals are stable. She is going to be discharged home in a stable condition. PHYSICAL EXAMINATION: VITAL SIGNS: Temperature 98, pulse 52, respiratory rate 20, blood pressure 134/58, pulse oximetry 97%. GENERAL: The patient is awake, alert, oriented times three, sitting up in bed in no acute distress. HEENT: Normocephalic, atraumatic. Moist mucous membranes. Anicteric eyes. CHEST: Clear to auscultation. CARDIOVASCULAR: S1, S2 regular. ABDOMEN: Soft, nontender . Bowel sounds present. The patient has a colostomy bag and a urostomy bag in position and two percutaneous nephrostomy tubes in position. EXTREMITIES: No edema. LABORATORY DATA: WBC 3.5, hemoglobin 8.3, platelets 156. Sodium 146, potassium 3.6, chloride 111, bicarbonate 29, BUN 4, creatinine 0.8, glucose 115, calcium 7.5, magnesium 1.[address] of the abdomen and pelvis showed mild gastric distention of the proximal small bowel loops without discrete transition point to suggest small bowel obstruction. Bilateral percutaneous nephrostomy tubes and urinary diversion without hydronephrosis. Findings of cirrhosis and splenomegaly. Lumbar spine laminectomy at L2 and bony fusion at L4-L5. DISPOSITION: The patient is discharged home in stable condition. DISCHARGE INSTRUCTIONS: The patient is to followup with primary care provider in 1 week. The patient is to followup with her urologist on 12/13/2016. Regular diet. Activity as tolerated.
== END 2016-12-10 14:25 | disposition home or self-care (01) | DRG 388 ==
LOC: M ED 15:16 → M ED INP 20:49 → M MS5PR 22:19
PROVIDERS: ADMIT Hospitalist; ATTEND Internal Medicine Nephrology
DX: K56.60 Unspecified intestinal obstruction (principal); G92 Toxic encephalopathy; N17.9 Acute kidney failure, unspecified; I12.9 Hypertensive chronic kidney disease with stage 1 through stage 4 chronic kidney disease, or unspecified chronic kidney disease; K56.7 Ileus, unspecified; E03.9 Hypothyroidism, unspecified; G47.33 Obstructive sleep apnea (adult) (pediatric); D35.00 Benign neoplasm of unspecified adrenal gland; E11.9 Type 2 diabetes mellitus without complications; N18.9 Chronic kidney disease, unspecified; R16.1 Splenomegaly, not elsewhere classified; D50.9 Iron deficiency anemia, unspecified; R41.82 Altered mental status, unspecified; K74.60 Unspecified cirrhosis of liver; K21.9 Gastro-esophageal reflux disease without esophagitis; T43.215A Adverse effect of selective serotonin and norepinephrine reuptake inhibitors, initial encounter; G25.81 Restless legs syndrome; M79.7 Fibromyalgia; Z93.3 Colostomy status; Z99.89 Dependence on other enabling machines and devices; Z93.2 Ileostomy status; Z93.6 Other artificial openings of urinary tract status; Z88.5 Allergy status to narcotic agent; Z88.8 Allergy status to other drugs, medicaments and biological substances; Z91.09 Other allergy status, other than to drugs and biological substances; Z88.7 Allergy status to serum and vaccine; Z90.49 Acquired absence of other specified parts of digestive tract; Z90.710 Acquired absence of both cervix and uterus; Z82.49 Family history of ischemic heart disease and other diseases of the circulatory system; Z83.6 Family history of other diseases of the respiratory system; Z80.49 Family history of malignant neoplasm of other genital organs; Z79.82 Long term (current) use of aspirin; Z79.84 Long term (current) use of oral hypoglycemic drugs; Z79.899 Other long term (current) drug therapy; T40.2X5A Adverse effect of other opioids, initial encounter

== ENCOUNTER → 2016-12-29 | Outpatient (REF) | payer MEDICARE, BC | LOC: M LAB REF 16:28 | PROVIDERS: ATTEND Nurse Practitioner Family | DX: T83.032D Leakage of nephrostomy catheter, subsequent encounter (principal); Y83.1 Surgical operation with implant of artificial internal device as the cause of abnormal reaction of the patient, or of later complication, without mention of misadventure at the time of the procedure ==

== ENCOUNTER 2017-03-06 14:21 | Emergency (ER) | payer MEDICARE, BC ==
[~2017-03-06] VITALS: Ht 165.1 cm; Wt 72.9 kg
[~2017-03-06 14:21] MED LIST changes: +AZIT-12 PO; -AZIT250T3 PO; -COLA100C3 PO; +COLA100C5 PO; +FERR1TAB8 PO; -FERR325T PO; +LAMI1TAB6 PO; -LAMI250T3 PO; +LEVO500T3 PO; -LEVO500T32 PO; -LYRI100C10 PO; -METF500T PO; +METF500T13 PO; -PRED10TA PO; +PRED10TA2 PO; +PREG100CA PO; -SKEL-29 PO; +SKEL800T97 PO
[2017-03-06] MEDS ORDERED: FLUC200T2 (14:33)
[2017-03-06] MEDS ORDERED: SULFAMETHOXAZOLE-TMP (14:33)
[2017-03-06] MEDS ORDERED: CIPR500T3 (14:33)
[2017-03-06] MEDS ORDERED: ONDANSETRON 4MG/2ML VIAL (J2405) IV ONE (15:00)
[2017-03-06] MEDS ORDERED: NS 500 ML IV ONE ×2 (15:00→16:00)
[2017-03-06 15:13] LABS: BASO % 0.5 % (0.0-1.0); EOS # 0.2 K/mm3 (0.0-0.50); LARGE UNSTAINED CELL # 0.1 K/mm3 (0.0-0.4); LARGE UNSTAINED CELL % 1.4 % (0.0-4.0); LYMPH # 1.1 K/mm3 (1.5-4.5); LYMPH % 13.7 % (24.0-44.0); MEAN CORPUSCULAR HEMOGLOBIN 28.5 pg (27.0-33.0); MEAN CORPUSCULAR HGB CONC 32.7 g/dl (32.0-36.5); MEAN CORPUSCULAR VOLUME 87.2 fl (80.0-96.0); MONO # 0.4 K/mm3 (0.0-0.8); MONO % 4.8 % (0.0-5.0); NEUTROPHILS # 5.8 K/mm3 (1.8-7.7); NEUTROPHILS % 76.7 % (36.0-66.0); PLATELET COUNT, AUTOMATED 293 k/mm3 (150-450); RED CELL DISTRIBUTION WIDTH 16.8 % (11.5-14.5); WHITE BLOOD COUNT 7.6 K/mm3 (4.0-10.0)
[2017-03-06] MEDS: MORPHINE 2 MG/ML 1ML SYRINGE IV PRN ×2 (15:14→16:07)
[2017-03-06 15:35] LABS: ALBUMIN 3.1 GM/DL (3.2-5.2); ALBUMIN/GLOBULIN RATIO 0.58 (1.00-1.93); BILIRUBIN,DIRECT 0.1 MG/DL (0.0-0.2); BILIRUBIN,TOTAL 0.3 MG/DL (0.2-1.0); CALCIUM LEVEL 9.1 MG/DL (8.8-10.2); CREATININE FOR GFR 1.59 MG/DL (0.55-1.02); POTASSIUM SERUM 4.2 MEQ/L (3.5-5.1); TOTAL PROTEIN 8.4 GM/DL (6.4-8.2)
[2017-03-06 15:36] LABS: INR 1.15
--- NOTE | 2017-03-06 15:53 | REP ---
Chest one-view HISTORY: Abdominal pain Comparison: 12/07/2016 The lungs are clear. The heart is upper limits of normal in size. The pulmonary vasculature is normal in appearance. Impression: No acute disease. Signed by Roby Raza MD 03/06/2017 03:44 P
[2017-03-06] MEDS ORDERED: cefTRIAXone SOD 1 GM in D5W MINI-BAG PLUS 50 ML IV ONE (17:00)
--- NOTE | 2017-03-06 18:50 | REPUSA ---
HISTORY: FLANK PAIN. Reported history of pancreatitis. Flank pain, left greater than right and nep hrostomy tube. Comparison is made to previous CT of abdomen and pelvis dated 12/04/16. TECHNIQUE: Axial CT imaging of abdomen and pelvis with sagittal and coronal reformatted imaging, wi thout contrast. FINDINGS: Lung bases are clear. Bone windows demonstrate postsurgical changes in the lumbosacral spi ne with no acute fracture or destructive bony lesions seen. The liver has a configuration suspicious for cirrhosis, unchanged from previous examination. Spleen is enlarged measuring 14.6 cm. No ascites is seen. No focal liver mass is seen. Biliary tree is normal in patient status post cholecystectomy. Left adrenal gland is normal. There is a fat-containing mass in the right adrenal gland measuring 1.8 x 1.1 cm, consistent with benign ad renal adenoma or lipoma. Abdominal aorta is normal and no retroperitoneal adenopathy is seen. The previously described right nephrostomy tube has been removed. There is right renal hydronephrosi s and proximal hydroureter and there appears to be ureteral diversion to an ileal loop and ileostomy over the right lower quadrant of the abdomen. Patient appears to be status post cystectomy. There i s a persistent nephrostomy tube is identified in the left kidney which now has been advanced to the i ferrer loop in the right lower pelvis. There has been marked increase in size of the left kidney with perinephric edema identified suspicious for obstruction. Inflammatory mass cannot be excluded at thi s time on the limited noncontrast examination. Clinical correlation and follow-up contrast enhanced imaging, and consideration of nephrostogram is suggested if clinically indicated. There is also evidence of bowel surgery in the colon with apparent AP resection and there is a colost ana over the left lower quadrant of the abdomen. There is fluid-filled distention and dilatation of the colon consistent with ileus. No other pelvic mass lesions or abnormal fluid collections are seen . IMPRESSION: 1. The left nephrostomy tube has been advanced to the ileal loop in the right anterior p estrellita region. There has been progressive increase in size of the left kidney with edema in the kidne y and in the perinephric spaces suspicious for obstruction and possible inflammatory reaction. Clini penny correlation and follow-up contrast enhanced imaging of the left kidney is suggested as indicated. 2. The right nephrostomy tube has been removed but there is persistent mild right hydronephrosis and proximal hydroureter. The distal ureters of normal caliber and appears to be diverted to the ileal loop. 3. Status post cystectomy and AP resection with ileostomy over the right lower quadrant of the abdom en and colostomy over the left lower quadrant of the abdomen. There is prominent fluid-filled disten tion in the colon suggesting ileus, with no evidence of free peritoneal air or abdominal or pelvic ab scess seen at this time on the noncontrast examination. 4. No change in the suspected appearance of cirrhosis of the liver and splenomegaly without ascites seen. 5. No change in a fat-containing mass in the right adrenal gland consistent with benign adrenal cornell roma or lipoma. Clinical correlation and followup imaging may be warranted as clinically indicated.
[2017-03-06] MEDS ORDERED: NS 1,000 ML IV ONE (19:00)
[2017-03-06 20:00] VITALS: BP 150/68
== END 2017-03-06 20:06 | disposition short-term general hospital (02) ==
LOC: M ED 14:21
DX: T83.092A Other mechanical complication of nephrostomy catheter, initial encounter (principal); N10 Acute pyelonephritis; Y92.9 Unspecified place or not applicable; Y93.9 Activity, unspecified; E11.9 Type 2 diabetes mellitus without complications; Z79.82 Long term (current) use of aspirin; Z79.899 Other long term (current) drug therapy; Z79.84 Long term (current) use of oral hypoglycemic drugs; Z88.5 Allergy status to narcotic agent; Z88.7 Allergy status to serum and vaccine; Z91.89 Other specified personal risk factors, not elsewhere classified; Z88.8 Allergy status to other drugs, medicaments and biological substances
CPT/HCPCS: 71010; 74176; 80048; 80076; 81001; 83605; 83690; 85025; 85610; 85730; 87040; 87086; 93041; 96361; 96374; 96375; 99285; J0696; J2405

== ENCOUNTER 2017-04-19 17:12 | Emergency (ER) | payer MEDICARE, BC ==
[~2017-04-19] VITALS: Ht 162.6 cm; Wt 70.4 kg
[~2017-04-19 17:12] MED LIST changes: +CIPR500T3; +FLUC200T2; +SULFAMETHOXAZOLE-TMP
[2017-04-19] MEDS ORDERED: OXYC15TA76 PO (17:19)
[2017-04-19] MEDS ORDERED: NS 1,000 ML IV ONE (18:30)
[2017-04-19] MEDS ORDERED: MORPHINE 4 MG/ML 1ML SYRINGE IV ONE ×2 (18:30→20:30)
[2017-04-19 19:40] LABS: BASO % 0.4 % (0.0-1.0); EOS # 0.2 K/mm3 (0.0-0.50); EOS % 2.7 % (0.0-3.0); LARGE UNSTAINED CELL # 0.1 K/mm3 (0.0-0.4); LARGE UNSTAINED CELL % 1.6 % (0.0-4.0); LYMPH # 1.4 K/mm3 (1.5-4.5); LYMPH % 21.3 % (24.0-44.0); MEAN CORPUSCULAR HGB CONC 32.7 g/dl (32.0-36.5); MEAN CORPUSCULAR VOLUME 88.6 fl (80.0-96.0); MONO # 0.3 K/mm3 (0.0-0.8); NEUTROPHILS # 4.5 K/mm3 (1.8-7.7); NEUTROPHILS % 70.1 % (36.0-66.0); PLATELET COUNT, AUTOMATED 207 k/mm3 (150-450); RED CELL DISTRIBUTION WIDTH 16.3 % (11.5-14.5); WHITE BLOOD COUNT 6.4 K/mm3 (4.0-10.0)
[2017-04-19 20:09] LABS: ALBUMIN 3.2 GM/DL (3.2-5.2); ALBUMIN/GLOBULIN RATIO 0.73 (1.00-1.93); ALKALINE PHOSPHATASE 98 U/L (45-117); ALT/SGPT 27 U/L (12-78); ANION GAP 6 MEQ/L (8-16); AST/SGOT 18 U/L (15-37); BILIRUBIN,DIRECT < 0.1 MG/DL (0.0-0.2); BILIRUBIN,TOTAL 0.2 MG/DL (0.2-1.0); BLOOD UREA NITROGEN 14 MG/DL (7-18); CALCIUM LEVEL 9.1 MG/DL (8.8-10.2); CARBON DIOXIDE LEVEL 28 MEQ/L (21-32); CHLORIDE LEVEL 107 MEQ/L (98-107); CREATININE FOR GFR 1.02 MG/DL (0.55-1.02); GLOMERULAR FILTRATION RATE 56.6 (>39); GLUCOSE, FASTING 98 MG/DL (83-110); POTASSIUM SERUM 4.1 MEQ/L (3.5-5.1); SODIUM LEVEL 141 MEQ/L (136-145); TOTAL PROTEIN 7.6 GM/DL (6.4-8.2)
[2017-04-19] MEDS ORDERED: ISOVUE-370 76% 100ML VIAL (Q9967) As Ordered ONE (20:50)
[2017-04-19] MEDS ORDERED: cefTRIAXone SOD 1 GM in D5W MINI-BAG PLUS 50 ML IV ONE (21:15)
--- NOTE | 2017-04-19 21:28 | REP ---
Clinical: Left flank pain status post left nephrostomy. Technique: Axial contrast enhanced images from the lung bases to the pubic symphysis using 100 ml Isovue 370 intravenous contrast material with coronal and sagittal re-formations. Comparison: 03/06/2017. Findings: The the patient is again noted to be status post cystectomy and ileal conduit formation. The right kidney including extrarenal pelvis and ureter appear stable. The left kidney appears atrophic and the previously noted suspected renal/perinephric hematoma appear significantly improved and is nearly resolved. Only a small residual subcapsular collection along the lateral aspect of the left kidney is now identified. The left-sided nephrostomy which extends through the left ureter into the ileal conduit is stable in position and there is no evidence for hydroureteronephrosis. Liver, spleen, pancreas, and bilateral adrenal glands are relatively normal / stable a 2 cm right adrenal angiolipoma appears stable and benign. Evidence for prior cholecystectomy again noted. Postoperative changes and partial resection noted to the enteric system without evidence for obstruction or acute inflammatory process. Findings include colostomy via the left anterior abdominal wall and Ronak's pouch in the pelvis. Pelvis demonstrates prior cystectomy and hysterectomy. No ascites, pelvic fluid or drainable collection/abscess noted. No free air. No significant adenopathy. Abdominal aorta and vasculature appears normal. Surrounding musculoskeletal structures demonstrate osteopenia and age-related degenerative changes without focal osseous abnormality. Lung bases demonstrate chronic changes. Visualized portions of the heart and pericardium are normal. Impression: 1. Improved appearance to the left kidney when compared to prior examination with only small residual subcapsular collection. Nephrostomy tube extending through the left ureter into the ileal conduit is stable position. There is no evidence for hydroureteronephrosis. The right kidney remains unchanged and stable. No new urinary tract pathology identified. 2. Postoperative changes involving the small large bowel as detailed above without evidence for acute process. 3. No ascites, drainable collection or abscess. No free air. No adenopathy. 4. Further chronic changes as described above. No acute abdominopelvic pathology otherwise noted. Signed by Esa Bolanos MD 04/19/2017 09:20 P
[2017-04-19] MEDS ORDERED: CIPR-249 PO (22:21)
[2017-04-19 22:23] VITALS: BP 175/74
== END 2017-04-19 22:40 | disposition home or self-care (01) ==
LOC: M ED 17:12
DX: N39.0 Urinary tract infection, site not specified (principal); Z93.6 Other artificial openings of urinary tract status; Z79.82 Long term (current) use of aspirin; Z79.899 Other long term (current) drug therapy; Z88.5 Allergy status to narcotic agent; Z88.7 Allergy status to serum and vaccine; Z88.8 Allergy status to other drugs, medicaments and biological substances; Z91.89 Other specified personal risk factors, not elsewhere classified
CPT/HCPCS: 36415; 74177; 80048; 80076; 81001; 83605; 85025; 87040; 87088; 87186; 96374; 96375; 96376; 99284; J0696; Q9967

== ENCOUNTER 2017-12-17 17:34 | Emergency (ER) | payer MEDICARE, BC ==
[2017-12-17] MEDS: NS 1,000 ML IV ×2 (18:13)
[2017-12-17] MEDS: METOCLOPRAMIDE INJ 10MG/2ML VIAL (J2765) IV ×2 (18:14)
[2017-12-17 18:19] LABS: BASO % 0.4 % (0.0-1.0); EOS # 0.2 10^3/uL (0.0-0.50); EOS % 2.7 % (0.0-3.0); HEMATOCRIT 33.5 % (36.0-47.0); HEMOGLOBIN 10.6 g/dl (12.0-15.5); IMMATURE GRANULOCYTE % 0.4 % (0-3.0); LYMPH % 27.7 % (24.0-44.0); MEAN CORPUSCULAR HEMOGLOBIN 28.2 pg (27.0-33.0); MEAN CORPUSCULAR HGB CONC 31.6 g/dl (32.0-36.5); MEAN CORPUSCULAR VOLUME 89.1 fl (80.0-96.0); MONO # 0.6 10^3/uL (0.0-0.8); MONO % 7.7 % (0.0-5.0); NEUTROPHILS # 4.4 10^3/uL (1.8-7.7); NEUTROPHILS % 61.1 % (36.0-66.0); PLATELET COUNT, AUTOMATED 209 10^3/uL (150-450); RED BLOOD COUNT 3.76 10^6/uL (4.00-5.40); RED CELL DISTRIBUTION WIDTH 15.3 % (11.5-14.5); WHITE BLOOD COUNT 7.2 10^3/uL (4.0-10.0)
[2017-12-17 18:42] LABS: ALBUMIN 3.6 GM/DL (3.2-5.2); ALBUMIN/GLOBULIN RATIO 0.73 (1.00-1.93); ALKALINE PHOSPHATASE 123 U/L (45-117); ALT/SGPT 17 U/L (12-78); ANION GAP 5 MEQ/L (8-16); AST/SGOT 21 U/L (7-37); BILIRUBIN,DIRECT < 0.1 MG/DL (0.0-0.2); BILIRUBIN,TOTAL 0.2 MG/DL (0.2-1.0); BLOOD UREA NITROGEN 20 MG/DL (7-18); CALCIUM LEVEL 8.8 MG/DL (8.8-10.2); CARBON DIOXIDE LEVEL 26 MEQ/L (21-32); CHLORIDE LEVEL 112 MEQ/L (98-107); CREATININE FOR GFR 1.25 MG/DL (0.55-1.30); GLOMERULAR FILTRATION RATE 44.7 (>39); GLUCOSE, FASTING 90 MG/DL (70-100); LIPASE 102 U/L (73-393); POTASSIUM SERUM 4.4 MEQ/L (3.5-5.1); SODIUM LEVEL 143 MEQ/L (136-145); TOTAL PROTEIN 8.5 GM/DL (6.4-8.2)
[2017-12-17 18:57] LABS: BILIRUBIN, URINE MANUAL NEGATIVE (NEGATIVE); BLOOD URINE MANUAL RFX POSITIVE (NEGATIVE); GLUCOSE, URINE (UA) MANUAL NEGATIVE (NEGATIVE); KETONE, URINE MANUAL NEGATIVE (NEGATIVE); MICROSCOPIC INDICATED? RFX YES (NO); NITRITE, URINE MANUAL RFX POSITIVE (NEGATIVE); PROTEIN, URINE MANUAL REFLEX 3+ mg/dL (NEGATIVE); UROBILINOGEN, URINE MANUAL NORMAL (NORMAL)
[2017-12-17 19:02] LABS: BACTERIA, URINE MOD AMOUNT; HYALINE CAST, URINE NONE SEEN /lpf (0-1); MICROSCOPIC EXAM PERFORMED; RBC, URINE TNTC /hpf (0-3); SQUAMOUS EPITHELIAL CELL URINE SMALL AMOUNT /hpf (SMALL AMT); WBC, URINE MAN RFX 20-30 /hpf (0-3)
[2017-12-17] MEDS: PERCOCET 5MG/325MG TAB PO ×2 (20:14)
[2017-12-17] MEDS: CIPROFLOXACIN 500 MG TAB PO ×2 (20:15)
== END 2017-12-17 20:32 | disposition home or self-care (01) ==
LOC: M ED 17:34
DX: N10 Acute pyelonephritis (principal); N18.4 Chronic kidney disease, stage 4 (severe); I12.9 Hypertensive chronic kidney disease with stage 1 through stage 4 chronic kidney disease, or unspecified chronic kidney disease; J44.9 Chronic obstructive pulmonary disease, unspecified; E07.9 Disorder of thyroid, unspecified; G47.33 Obstructive sleep apnea (adult) (pediatric); M79.7 Fibromyalgia; G25.81 Restless legs syndrome; F33.9 Major depressive disorder, recurrent, unspecified; Z79.890 Hormone replacement therapy; Z79.899 Other long term (current) drug therapy; Z79.84 Long term (current) use of oral hypoglycemic drugs; Z79.82 Long term (current) use of aspirin; Z88.8 Allergy status to other drugs, medicaments and biological substances; Z88.5 Allergy status to narcotic agent; Z88.7 Allergy status to serum and vaccine; Z91.048 Other nonmedicinal substance allergy status; Z87.19 Personal history of other diseases of the digestive system; Z98.890 Other specified postprocedural states
CPT/HCPCS: J2765

== ENCOUNTER 2017-12-20 14:52 | Inpatient (IN) | payer MEDICARE, BC ==
[2017-12-20 16:41] LABS: BASO % 0.3 % (0.0-1.0); EOS # 0.2 10^3/uL (0.0-0.50); EOS % 3.6 % (0.0-3.0); HEMATOCRIT 30.5 % (36.0-47.0); HEMOGLOBIN 9.9 g/dl (12.0-15.5); IMMATURE GRANULOCYTE % 0.3 % (0-3.0); LYMPH # 1.9 10^3/uL (1.5-4.5); LYMPH % 28.7 % (24.0-44.0); MEAN CORPUSCULAR HEMOGLOBIN 28.6 pg (27.0-33.0); MEAN CORPUSCULAR HGB CONC 32.5 g/dl (32.0-36.5); MEAN CORPUSCULAR VOLUME 88.2 fl (80.0-96.0); MONO # 0.5 10^3/uL (0.0-0.8); MONO % 7.7 % (0.0-5.0); NEUTROPHILS % 59.4 % (36.0-66.0); PLATELET COUNT, AUTOMATED 181 10^3/uL (150-450); RED BLOOD COUNT 3.46 10^6/uL (4.00-5.40); RED CELL DISTRIBUTION WIDTH 15.4 % (11.5-14.5); WHITE BLOOD COUNT 6.7 10^3/uL (4.0-10.0)
[2017-12-20] MEDS: MORPHINE 4 MG/ML 1ML VIAL/SYRINGE (J2270) IV ×2 (16:43→20:56)
[2017-12-20 16:53] LABS: INR 1.05; PROTHROMBIN TIME 13.8 SECONDS (12.4-14.5)
[2017-12-20 16:54] LABS: PARTIAL THROMBOPLASTIN TIME 29.1 SECONDS (26.8-37.9)
[2017-12-20 17:16] LABS: ALBUMIN 3.3 GM/DL (3.2-5.2); ALBUMIN/GLOBULIN RATIO 0.83 (1.00-1.93); ALKALINE PHOSPHATASE 111 U/L (45-117); ALT/SGPT 14 U/L (12-78); ANION GAP 8 MEQ/L (8-16); AST/SGOT 14 U/L (7-37); BILIRUBIN,DIRECT < 0.1 MG/DL (0.0-0.2); BILIRUBIN,TOTAL 0.2 MG/DL (0.2-1.0); BLOOD UREA NITROGEN 15 MG/DL (7-18); CALCIUM LEVEL 8.6 MG/DL (8.8-10.2); CARBON DIOXIDE LEVEL 24 MEQ/L (21-32); CHLORIDE LEVEL 112 MEQ/L (98-107); CREATININE FOR GFR 1.27 MG/DL (0.55-1.30); FREE T4 1.09 NG/DL (0.76-1.46); GLOMERULAR FILTRATION RATE 43.9 (>39); GLUCOSE, FASTING 118 MG/DL (70-100); LIPASE 97 U/L (73-393); MAGNESIUM LEVEL 1.7 MG/DL (1.8-2.4); PHOSPHORUS LEVEL 3.6 MG/DL (2.5-4.9); POTASSIUM SERUM 3.9 MEQ/L (3.5-5.1); SODIUM LEVEL 144 MEQ/L (136-145); TOTAL PROTEIN 7.3 GM/DL (6.4-8.2)
[2017-12-20 17:23] LABS: BILIRUBIN, URINE MANUAL NEGATIVE (NEGATIVE); BLOOD URINE MANUAL RFX POSITIVE (NEGATIVE); GLUCOSE, URINE (UA) MANUAL NEGATIVE (NEGATIVE); KETONE, URINE MANUAL NEGATIVE (NEGATIVE); NITRITE, URINE MANUAL RFX POSITIVE (NEGATIVE); PROTEIN, URINE MANUAL REFLEX 2+ mg/dL (NEGATIVE); SP GRAVITY,URINE MANUAL REFLEX 1.025 (1.002-1.035); UROBILINOGEN, URINE MANUAL NORMAL (NORMAL)
[2017-12-20 17:24] LABS: MICROSCOPIC INDICATED? RFX YES (NO)
[2017-12-20 17:28] LABS: AMORPHOUS SEDIMENT RFX SMALL (NEGATIVE); KETONE, URINE AUTO RFX NEGATIVE (NEGATIVE); LEUKOCYTE ESTERASE UR AUTO RFX 3+ (NEGATIVE); MUCUS, URINE RFX SMALL (NEGATIVE); NITRITE, URINE AUTO RFX NEGATIVE (NEGATIVE); RBC, URINE AUTO RFX 16 /HPF (0-3); SPECIFIC GRAVITY UR AUTO RFX 1.012 (1.002-1.035); SQUAM EPITHELIAL CELL UR AURFX 0 /HPF (0-6); WBC, URINE AUTO RFX 54 /HPF (0-3)
[2017-12-20 17:39] LABS: RBC, URINE TNTC /hpf (0-3); WBC, URINE MAN RFX TNTC /hpf (0-3)
[2017-12-20 17:42] LABS: SQUAMOUS EPITHELIAL CELL URINE LARGE AMOUNT /hpf (SMALL AMT); TRANSITIONAL EPI CELLS, URINE LARGE AMOUNT /hpf
[2017-12-20 17:43] LABS: BACTERIA, URINE MOD AMOUNT; HYALINE CAST, URINE 0-1 /lpf (0-1); RENAL EPITHELIAL CELLS, URINE SMALL AMOUNT /hpf
[2017-12-20 17:44] LABS: MICROSCOPIC EXAM PERFORMED; MUCUS, URINE SMALL AMOUNT (NEGATIVE)
[2017-12-20] MEDS: GASTROGRAFIN SOLUTION 30ML PO ×2 (18:00→18:27)
[2017-12-20] MEDS ORDERED: ISOVUE-370 76% 100ML VIAL (Q9967) As Ordered (19:31)
[2017-12-20] MEDS: ERTAPENEM SODIUM 1 GM in NS MINI-BAG PLUS 50 ML IV (23:22)
[2017-12-20] MEDS ORDERED: MIRALAX *UNIT DOSE* 17GM PACKET PO (23:30)
[2017-12-20] MEDS ORDERED: ONDANSETRON 4MG/2ML VIAL (J2405) IV (23:30)
[2017-12-20] MEDS: AMITRIPTYLINE 50 MG TAB PO (23:53)
[2017-12-20] MEDS: rOPINIRole 1MG TAB PO (23:53)
[2017-12-20] MEDS: METAXALONE 800 MG TABLET PO (23:53)
[2017-12-21] MEDS: FAMOTIDINE 20 MG TAB PO ×3 (00:46→21:51)
[2017-12-21] MEDS: ASPIRIN 81 MG ENTERIC TAB PO ×2 (00:46→21:50)
[2017-12-21] MEDS: PREGABALIN 100 MG CAP (LYRICA) PO ×4 (00:46→21:51)
[2017-12-21] MEDS: MAG SULF 1GM/100ML (MAG RUN) 1 GM in APPROPRIATE DILUENT 1 EA IV (00:47)
[2017-12-21] MEDS ORDERED: GLUCAGON FOR INJ 1 MG VIAL (J1610) SC (01:45)
[2017-12-21] MEDS ORDERED: DEXTROSE 50% 50 ML SYRINGE IV (01:45)
[2017-12-21] MEDS ORDERED: GLUCOSE 4 GM CHEW TABLET PO (01:45)
[2017-12-21] MEDS: CIPROFLOXACIN 400 MG in APPROPRIATE DILUENT 1 EA IV ×2 (01:55→12:25)
[2017-12-21 05:51] LABS: BEDSIDE GLUCOSE 156 MG/DL (83-110)
[2017-12-21] MEDS: LEVOTHYROXINE 50MCG TABLET (0.05MG) PO (05:54)
[2017-12-21] MEDS: HumaLOG INSULIN (NovoLOG) PER UNIT SC ×4 (08:45→20:08)
[2017-12-21] MEDS: LISINOPRIL 20 MG TAB PO (08:46)
[2017-12-21] MEDS: METAXALONE 800 MG TABLET PO ×3 (08:46→21:50)
[2017-12-21] MEDS: MULTIVITAMINS/MINERALS THERAP 1 TAB PO (08:46)
[2017-12-21] MEDS: ENOXAPARIN 40 MG/0.4 ML SYRINGE (J1650) SC (08:46)
[2017-12-21] MEDS: PRAVASTATIN 20 MG TAB PO (08:47)
[2017-12-21] MEDS: oxyCODONE 15 MG CR TAB PO ×2 (08:47→21:51)
[2017-12-21] MEDS: CYANOCOBALAMIN 500 MCG TAB PO (08:48)
[2017-12-21 11:10] LABS: HEMATOCRIT 30.1 % (36.0-47.0); HEMOGLOBIN 9.7 g/dl (12.0-15.5); MEAN CORPUSCULAR HEMOGLOBIN 28.6 pg (27.0-33.0); MEAN CORPUSCULAR HGB CONC 32.2 g/dl (32.0-36.5); MEAN CORPUSCULAR VOLUME 88.8 fl (80.0-96.0); PLATELET COUNT, AUTOMATED 169 10^3/uL (150-450); RED BLOOD COUNT 3.39 10^6/uL (4.00-5.40); RED CELL DISTRIBUTION WIDTH 15.8 % (11.5-14.5); WHITE BLOOD COUNT 5.2 10^3/uL (4.0-10.0)
[2017-12-21 12:06] LABS: MAGNESIUM LEVEL 2.3 MG/DL (1.8-2.4)
[2017-12-21 12:10] LABS: ANION GAP 7 MEQ/L (8-16); BLOOD UREA NITROGEN 16 MG/DL (7-18); CALCIUM LEVEL 8.6 MG/DL (8.8-10.2); CARBON DIOXIDE LEVEL 23 MEQ/L (21-32); CHLORIDE LEVEL 114 MEQ/L (98-107); CREATININE FOR GFR 1.22 MG/DL (0.55-1.30); GLUCOSE, FASTING 102 MG/DL (70-100); POTASSIUM SERUM 4.5 MEQ/L (3.5-5.1); SODIUM LEVEL 144 MEQ/L (136-145)
[2017-12-21 12:38] LABS: BEDSIDE GLUCOSE 101 MG/DL (83-110)
[2017-12-21] MEDS: rOPINIRole 1MG TAB PO ×2 (16:20→21:51)
[2017-12-21 16:47] LABS: BEDSIDE GLUCOSE 142 MG/DL (83-110)
[2017-12-21 20:12] LABS: BEDSIDE GLUCOSE 147 MG/DL (83-110)
[2017-12-21] MEDS: AMITRIPTYLINE 50 MG TAB PO (21:50)
[2017-12-21] MEDS: ERTAPENEM SODIUM 1 GM in NS MINI-BAG PLUS 50 ML IV (21:52)
[2017-12-22] MEDS: CIPROFLOXACIN 400 MG in APPROPRIATE DILUENT 1 EA IV (00:40)
[2017-12-22] MEDS: LEVOTHYROXINE 50MCG TABLET (0.05MG) PO (05:33)
[2017-12-22 06:35] LABS: BEDSIDE GLUCOSE 151 MG/DL (83-110)
[2017-12-22] MEDS: HumaLOG INSULIN (NovoLOG) PER UNIT SC ×4 (07:30→21:00)
[2017-12-22 09:03] LABS: BASO % 0.6 % (0.0-1.0); EOS # 0.3 10^3/uL (0.0-0.50); EOS % 6.5 % (0.0-3.0); HEMATOCRIT 29.7 % (36.0-47.0); HEMOGLOBIN 9.6 g/dl (12.0-15.5); IMMATURE GRANULOCYTE % 0.2 % (0-3.0); LYMPH % 40.7 % (24.0-44.0); MEAN CORPUSCULAR HEMOGLOBIN 28.8 pg (27.0-33.0); MEAN CORPUSCULAR HGB CONC 32.3 g/dl (32.0-36.5); MEAN CORPUSCULAR VOLUME 89.2 fl (80.0-96.0); MONO # 0.4 10^3/uL (0.0-0.8); MONO % 7.9 % (0.0-5.0); NEUTROPHILS # 2.2 10^3/uL (1.8-7.7); NEUTROPHILS % 44.1 % (36.0-66.0); PLATELET COUNT, AUTOMATED 158 10^3/uL (150-450); RED BLOOD COUNT 3.33 10^6/uL (4.00-5.40); RED CELL DISTRIBUTION WIDTH 15.9 % (11.5-14.5); WHITE BLOOD COUNT 4.9 10^3/uL (4.0-10.0)
[2017-12-22 09:27] LABS: ERYTHROCYTE SEDIMENTATION RATE 47 mm/hr (0-30)
[2017-12-22 09:36] LABS: ALBUMIN/GLOBULIN RATIO 0.83 (1.00-1.93); ALKALINE PHOSPHATASE 89 U/L (45-117); ALT/SGPT 13 U/L (12-78); ANION GAP 5 MEQ/L (8-16); AST/SGOT 9 U/L (7-37); BILIRUBIN,TOTAL 0.2 MG/DL (0.2-1.0); BLOOD UREA NITROGEN 16 MG/DL (7-18); C REACTIVE PROTEIN QUANTITATIV < 0.30 MG/DL (0.00-0.30); CALCIUM LEVEL 8.6 MG/DL (8.8-10.2); CARBON DIOXIDE LEVEL 25 MEQ/L (21-32); CHLORIDE LEVEL 114 MEQ/L (98-107); GLOMERULAR FILTRATION RATE 46.9 (>39); GLUCOSE, FASTING 108 MG/DL (70-100); POTASSIUM SERUM 4.4 MEQ/L (3.5-5.1); SODIUM LEVEL 144 MEQ/L (136-145); TOTAL PROTEIN 6.6 GM/DL (6.4-8.2)
[2017-12-22] MEDS: CYANOCOBALAMIN 500 MCG TAB PO (10:04)
[2017-12-22] MEDS: PRAVASTATIN 20 MG TAB PO (10:04)
[2017-12-22] MEDS: MULTIVITAMINS/MINERALS THERAP 1 TAB PO (10:05)
[2017-12-22] MEDS: oxyCODONE 15 MG CR TAB PO ×2 (10:05→21:24)
[2017-12-22] MEDS: METAXALONE 800 MG TABLET PO ×3 (10:05→21:24)
[2017-12-22] MEDS: FAMOTIDINE 20 MG TAB PO ×2 (10:05→21:23)
[2017-12-22] MEDS: ENOXAPARIN 40 MG/0.4 ML SYRINGE (J1650) SC (10:06)
[2017-12-22] MEDS: PREGABALIN 100 MG CAP (LYRICA) PO ×3 (10:06→21:24)
[2017-12-22] MEDS: LISINOPRIL 20 MG TAB PO (10:06)
[2017-12-22] MEDS: AMPICILLIN SOD/SULBACTAM SOD 3 GM in D5W MINI-BAG PLUS 100 ML IV ×2 (12:24→18:26)
[2017-12-22 12:53] LABS: BEDSIDE GLUCOSE 131 MG/DL (83-110)
[2017-12-22] MEDS: rOPINIRole 1MG TAB PO ×2 (15:51→21:24)
[2017-12-22 17:34] LABS: BEDSIDE GLUCOSE 133 MG/DL (83-110)
[2017-12-22 21:24] LABS: BEDSIDE GLUCOSE 132 MG/DL (83-110)
[2017-12-22] MEDS: AMITRIPTYLINE 50 MG TAB PO (21:24)
[2017-12-22] MEDS: ASPIRIN 81 MG ENTERIC TAB PO (21:24)
[2017-12-23] MEDS: AMPICILLIN SOD/SULBACTAM SOD 3 GM in D5W MINI-BAG PLUS 100 ML IV ×2 (00:56→06:04)
[2017-12-23] MEDS: LEVOTHYROXINE 50MCG TABLET (0.05MG) PO (06:04)
[2017-12-23] MEDS: oxyCODONE 5MG TAB PO (06:05)
[2017-12-23 06:14] LABS: BEDSIDE GLUCOSE 142 MG/DL (83-110)
[2017-12-23] MEDS: HumaLOG INSULIN (NovoLOG) PER UNIT SC (08:08)
[2017-12-23] MEDS: LISINOPRIL 20 MG TAB PO (09:00)
[2017-12-23] MEDS: METAXALONE 800 MG TABLET PO (09:26)
[2017-12-23] MEDS: FAMOTIDINE 20 MG TAB PO (09:26)
[2017-12-23] MEDS: MULTIVITAMINS/MINERALS THERAP 1 TAB PO (09:27)
[2017-12-23] MEDS: CYANOCOBALAMIN 500 MCG TAB PO (09:27)
[2017-12-23] MEDS: PRAVASTATIN 20 MG TAB PO (09:29)
[2017-12-23] MEDS: ENOXAPARIN 40 MG/0.4 ML SYRINGE (J1650) SC (09:31)
[2017-12-23] MEDS: PREGABALIN 100 MG CAP (LYRICA) PO (09:43)
[2017-12-23] MEDS: AUGMENTIN 875 MG TAB PO (09:43)
[2017-12-23] MEDS: oxyCODONE 15 MG CR TAB PO (09:43)
== END 2017-12-23 10:42 | disposition home or self-care (01) | DRG 690 ==
LOC: M MS5PR 12-21 00:05 → M ED 14:52 → M ED INP 23:21
DX: N10 Acute pyelonephritis (principal); N18.2 Chronic kidney disease, stage 2 (mild); I12.9 Hypertensive chronic kidney disease with stage 1 through stage 4 chronic kidney disease, or unspecified chronic kidney disease; E03.9 Hypothyroidism, unspecified; G47.33 Obstructive sleep apnea (adult) (pediatric); G25.81 Restless legs syndrome; Z79.899 Other long term (current) drug therapy; Z79.84 Long term (current) use of oral hypoglycemic drugs; Z79.82 Long term (current) use of aspirin; Z88.8 Allergy status to other drugs, medicaments and biological substances; Z88.5 Allergy status to narcotic agent; Z88.7 Allergy status to serum and vaccine; Z91.048 Other nonmedicinal substance allergy status; K21.9 Gastro-esophageal reflux disease without esophagitis; E11.9 Type 2 diabetes mellitus without complications; M79.7 Fibromyalgia; Z93.3 Colostomy status; M47.812 Spondylosis without myelopathy or radiculopathy, cervical region; D50.9 Iron deficiency anemia, unspecified; K74.69 Other cirrhosis of liver; N13.30 Unspecified hydronephrosis; Z93.6 Other artificial openings of urinary tract status; M54.5 Low back pain; E53.8 Deficiency of other specified B group vitamins; E78.5 Hyperlipidemia, unspecified; E83.42 Hypomagnesemia; B96.29 Other Escherichia coli [E. coli] as the cause of diseases classified elsewhere

== ENCOUNTER → 2018-01-26 | Outpatient (REF) | payer MEDICARE, BC ==
[2018-01-26 20:33] LABS: AMORPHOUS SEDIMENT LARGE (NEGATIVE); APPEARANCE, URINE CLOUDY (CLEAR); BACTERIA, URINE AUTO 3+ (NEGATIVE); BILIRUBIN, URINE AUTO NEGATIVE (NEGATIVE); BLOOD, URINE BLOOD 1+ (NEGATIVE); COLOR, URINE STRAW (YELLOW); GLUCOSE, URINE (UA) AUTO NEGATIVE (NEGATIVE); KETONE, URINE AUTO NEGATIVE (NEGATIVE); LEUKOCYTE ESTERASE, URINE AUTO 3+ (NEGATIVE); MUCUS, URINE SMALL (NEGATIVE); NITRITE, URINE AUTO POSITIVE (NEGATIVE); PROTEIN, URINE AUTO 2+ mg/dL (NEGATIVE); RBC, URINE AUTO 147 /HPF (0-3); SPECIFIC GRAVITY URINE AUTO 1.013 (1.002-1.035); SQUAMOUS EPITHELIAL CELL UR AU 0 /HPF (0-6); UROBILINOGEN, URINE AUTO 0.2 mg/dL (0.0-2.0); WBC, URINE AUTO TNTC /HPF (0-3)
== END ==
LOC: M LAB REF 17:18
DX: M54.5 Low back pain (principal); R50.9 Fever, unspecified
CPT/HCPCS: 81001

== ENCOUNTER → 2018-01-26 | Outpatient (REF) | payer MEDICARE, BC | LOC: M LAB REF 17:10 | DX: M54.5 Low back pain (principal); R50.9 Fever, unspecified ==

== ENCOUNTER 2018-02-13 11:50 | Emergency (ER) | payer MEDICARE, BC ==
[2018-02-13] MEDS: MORPHINE 4 MG/ML 1ML VIAL/SYRINGE (J2270) IV (13:29)
[2018-02-13] MEDS: NS 1,000 ML IV (13:29)
[2018-02-13] MEDS: KETOROLAC 30 MG/ML VIAL (J1885) IV (13:30)
[2018-02-13] MEDS: METOCLOPRAMIDE INJ 10MG/2ML VIAL (J2765) IV (13:30)
[2018-02-13 13:31] LABS: LACTIC ACID SEPSIS PROTOCOL 1.1 MMOL/L (0.4-2.0)
[2018-02-13 13:37] LABS: ALBUMIN 3.3 GM/DL (3.2-5.2); ALBUMIN/GLOBULIN RATIO 0.79 (1.00-1.93); ALKALINE PHOSPHATASE 100 U/L (45-117); ALT/SGPT 21 U/L (12-78); ANION GAP 11 MEQ/L (8-16); AST/SGOT 19 U/L (7-37); BILIRUBIN,DIRECT 0.2 MG/DL (0.0-0.2); BILIRUBIN,TOTAL 0.4 MG/DL (0.2-1.0); BLOOD UREA NITROGEN 22 MG/DL (7-18); CALCIUM LEVEL 8.6 MG/DL (8.8-10.2); CARBON DIOXIDE LEVEL 23 MEQ/L (21-32); CHLORIDE LEVEL 105 MEQ/L (98-107); CREATININE FOR GFR 1.24 MG/DL (0.55-1.30); GLOMERULAR FILTRATION RATE 45.1 (>39); GLUCOSE, FASTING 99 MG/DL (70-100); LIPASE 90 U/L (73-393); POTASSIUM SERUM 4.2 MEQ/L (3.5-5.1); SODIUM LEVEL 139 MEQ/L (136-145); TOTAL PROTEIN 7.5 GM/DL (6.4-8.2)
[2018-02-13 13:52] LABS: PARTIAL THROMBOPLASTIN TIME 22.5 SECONDS (26.8-37.9)
[2018-02-13 13:53] LABS: INR 0.96; PROTHROMBIN TIME 12.9 SECONDS (12.4-14.5)
[2018-02-13 14:41] LABS: BASO % 0.3 % (0.0-1.0); EOS # 0.1 10^3/uL (0.0-0.50); EOS % 1.2 % (0.0-3.0); HEMOGLOBIN 9.3 g/dl (12.0-15.5); IMMATURE GRANULOCYTE % 0.1 % (0-3.0); LYMPH # 1.4 10^3/uL (1.5-4.5); LYMPH % 20.2 % (24.0-44.0); MEAN CORPUSCULAR HEMOGLOBIN 28.8 pg (27.0-33.0); MEAN CORPUSCULAR HGB CONC 33.2 g/dl (32.0-36.5); MEAN CORPUSCULAR VOLUME 86.7 fl (80.0-96.0); MONO # 0.5 10^3/uL (0.0-0.8); MONO % 7.5 % (0.0-5.0); NEUTROPHILS # 4.8 10^3/uL (1.8-7.7); NEUTROPHILS % 70.7 % (36.0-66.0); PLATELET COUNT, AUTOMATED 145 10^3/uL (150-450); RED BLOOD COUNT 3.23 10^6/uL (4.00-5.40); RED CELL DISTRIBUTION WIDTH 14.3 % (11.5-14.5); WHITE BLOOD COUNT 6.8 10^3/uL (4.0-10.0)
[2018-02-13] MEDS: HYDROmorphone HCL 1 MG/ML SYRINGE (J1170) IV (14:45)
[2018-02-13 15:24] LABS: KETONE, URINE AUTO RFX NEGATIVE (NEGATIVE); NITRITE, URINE AUTO RFX NEGATIVE (NEGATIVE); RBC, URINE AUTO RFX TNTC /HPF (0-3); SPECIFIC GRAVITY UR AUTO RFX 1.013 (1.002-1.035); SQUAM EPITHELIAL CELL UR AURFX 3 /HPF (0-6)
[2018-02-13 15:28] LABS: LEUKOCYTE ESTERASE UR AUTO RFX 3+ (NEGATIVE); WBC, URINE AUTO RFX TNTC /HPF (0-3)
== END 2018-02-13 18:14 | disposition home or self-care (01) ==
LOC: M ED 11:50
DX: R31.9 Hematuria, unspecified (principal); E11.9 Type 2 diabetes mellitus without complications; I10 Essential (primary) hypertension; Z87.442 Personal history of urinary calculi; J44.9 Chronic obstructive pulmonary disease, unspecified; G25.81 Restless legs syndrome; M79.7 Fibromyalgia; F32.9 Major depressive disorder, single episode, unspecified; Z96.0 Presence of urogenital implants; Z93.6 Other artificial openings of urinary tract status; Z79.82 Long term (current) use of aspirin; Z79.899 Other long term (current) drug therapy; Z79.84 Long term (current) use of oral hypoglycemic drugs; Z79.891 Long term (current) use of opiate analgesic; Z88.8 Allergy status to other drugs, medicaments and biological substances; Z88.5 Allergy status to narcotic agent; Z88.7 Allergy status to serum and vaccine; Z91.89 Other specified personal risk factors, not elsewhere classified
CPT/HCPCS: J1170

== ENCOUNTER → 2018-03-14 | Outpatient (REF) | payer MEDICARE, BC | LOC: M LAB REF 12:42 | DX: D10.39 Benign neoplasm of other parts of mouth (principal) | CPT/HCPCS: 88305 ==

== ENCOUNTER 2018-04-01 08:21 | Inpatient (IN) | payer MEDICARE, BC ==
[2018-04-01] MEDS: ONDANSETRON 4MG/2ML VIAL (J2405) IV ×2 (09:40→17:42)
[2018-04-01] MEDS: MORPHINE 4 MG/ML 1ML VIAL/SYRINGE (J2270) IV ×6 (09:48→23:30)
[2018-04-01 10:06] LABS: INR 0.93; PROTHROMBIN TIME 12.6 SECONDS (12.1-14.4)
[2018-04-01 11:21] LABS: BASO % 0.4 % (0.0-1.0); EOS # 0.1 10^3/uL (0.0-0.50); EOS % 1.9 % (0.0-3.0); HEMATOCRIT 31.4 % (36.0-47.0); HEMOGLOBIN 10.3 g/dl (12.0-15.5); IMMATURE GRANULOCYTE % 0.4 % (0-3.0); LYMPH # 1.5 10^3/uL (1.5-4.5); LYMPH % 20.2 % (24.0-44.0); MEAN CORPUSCULAR HEMOGLOBIN 29.4 pg (27.0-33.0); MEAN CORPUSCULAR HGB CONC 32.8 g/dl (32.0-36.5); MEAN CORPUSCULAR VOLUME 89.7 fl (80.0-96.0); MONO # 0.4 10^3/uL (0.0-0.8); MONO % 4.7 % (0.0-5.0); NEUTROPHILS # 5.4 10^3/uL (1.8-7.7); NEUTROPHILS % 72.4 % (36.0-66.0); PLATELET COUNT, AUTOMATED 171 10^3/uL (150-450); RED CELL DISTRIBUTION WIDTH 14.7 % (11.5-14.5); WHITE BLOOD COUNT 7.4 10^3/uL (4.0-10.0)
[2018-04-01 11:39] LABS: BILIRUBIN,TOTAL 0.5 MG/DL (0.2-1.0); BLOOD UREA NITROGEN 24 MG/DL (7-18); CPK CREATINE PHOSPHOKINASE 194 U/L (26-192); CREATININE FOR GFR 1.25 MG/DL (0.55-1.30); GLOMERULAR FILTRATION RATE 44.6 (>39); LIPASE 94 U/L (73-393); TOTAL PROTEIN 8.6 GM/DL (6.4-8.2); TROPONIN I < 0.02 NG/ML (< 0.10)
[2018-04-01 11:40] LABS: GLUCOSE, FASTING 104 MG/DL (70-100); SODIUM LEVEL 139 MEQ/L (136-145)
[2018-04-01 11:41] LABS: ALT/SGPT 26 U/L (12-78); ANION GAP 8 MEQ/L (8-16); AST/SGOT 36 U/L (7-37); CALCIUM LEVEL 9.5 MG/DL (8.8-10.2); CARBON DIOXIDE LEVEL 22 MEQ/L (21-32); CHLORIDE LEVEL 109 MEQ/L (98-107); CK-MB VALUE MASS 6.5 NG/ML (<3.6); MB/CK RELATIVE INDEX 3.35 (< OR =4); POTASSIUM SERUM 5.5 MEQ/L (3.5-5.1)
[2018-04-01 11:42] LABS: ALBUMIN/GLOBULIN RATIO 0.87 (1.00-1.93); ALKALINE PHOSPHATASE 100 U/L (45-117); BILIRUBIN,DIRECT < 0.1 MG/DL (0.0-0.2)
[2018-04-01] MEDS ORDERED: ISOVUE-370 76% 100ML VIAL (Q9967) As Ordered (12:07)
[2018-04-01] MEDS ORDERED: cefTAZidime 1 GM in D5W MINI-BAG PLUS 50 ML IV (12:15)
[2018-04-01] MEDS ORDERED: VANCOMYCIN HCL 1,000 MG, VIAL MATE ADAPTER 1 EACH in D5W 250 ML IV (12:15)
[2018-04-01] MEDS: NS 500 ML IV (13:15)
[2018-04-01] MEDS ORDERED: NS 1,000 ML IV (13:15)
[2018-04-01] MEDS: SOD POLYSTYRENE SULFONATE SUSP 15 GM/60 ML UD PO (14:12)
[2018-04-01] MEDS ORDERED: DEXTROSE 50% 50 ML SYRINGE IV ×2 (14:15→19:30)
[2018-04-01] MEDS ORDERED: GLUCOSE 4 GM CHEW TABLET PO ×2 (14:15→19:30)
[2018-04-01] MEDS ORDERED: DOCUSATE SODIUM 100 MG CAP PO (14:15)
[2018-04-01] MEDS ORDERED: GLUCAGON FOR INJ 1 MG VIAL (J1610) SC ×2 (14:15→19:30)
[2018-04-01] MEDS ORDERED: NITROGLYCERIN 0.3 MG SUBL TAB SL (14:15)
[2018-04-01] MEDS: oxyCODONE 5MG TAB PO (15:18)
[2018-04-01] MEDS: rOPINIRole 1MG TAB PO ×3 (15:57→21:00)
[2018-04-01] MEDS: PREGABALIN 100 MG CAP (LYRICA) PO ×2 (15:57→21:00)
[2018-04-01] MEDS: PRAVASTATIN 20 MG TAB PO (15:57)
[2018-04-01] MEDS: NS 1,000 ML IV (15:57)
[2018-04-01] MEDS: FERROUS SULFATE 325MG TAB PO (15:57)
[2018-04-01] MEDS: METAXALONE 800 MG TABLET PO ×3 (16:35→21:00)
[2018-04-01] MEDS: oxyCODONE 15 MG CR TAB PO (16:36)
[2018-04-01] MEDS: HumaLOG INSULIN (NovoLOG) PER UNIT SC (17:23)
[2018-04-01] MEDS: CETACAINE SPRAY 5GM TOP (19:30)
[2018-04-01 19:33] LABS: ANION GAP 6 MEQ/L (8-16); BLOOD UREA NITROGEN 20 MG/DL (7-18); CARBON DIOXIDE LEVEL 24 MEQ/L (21-32); CHLORIDE LEVEL 112 MEQ/L (98-107); CREATININE FOR GFR 1.23 MG/DL (0.55-1.30); GLOMERULAR FILTRATION RATE 45.4 (>39); GLUCOSE, FASTING 103 MG/DL (70-100); POTASSIUM SERUM 4.9 MEQ/L (3.5-5.1); SODIUM LEVEL 142 MEQ/L (136-145)
[2018-04-01] MEDS: METOCLOPRAMIDE INJ 10MG/2ML VIAL (J2765) IV (19:36)
[2018-04-01 20:52] LABS: BEDSIDE GLUCOSE 100 MG/DL (83-110)
[2018-04-01] MEDS: traZODone 100 MG TAB PO ×2 (21:00)
[2018-04-01] MEDS: ASPIRIN 81 MG ENTERIC TAB PO (21:00)
[2018-04-01] MEDS: FAMOTIDINE 20 MG TAB PO (21:00)
[2018-04-01] MEDS: HEPARIN SOD (PORCINE) 5000 UNITS/ML VIAL SC (22:00)
[2018-04-01] MEDS: D5W/0.45% SODIUM CHLORIDE 1,000 ML IV (22:21)
[2018-04-02] MEDS: MORPHINE 4 MG/ML 1ML VIAL/SYRINGE (J2270) IV ×4 (05:01→23:53)
[2018-04-02 05:43] LABS: BEDSIDE GLUCOSE 146 MG/DL (83-110)
[2018-04-02] MEDS: HEPARIN SOD (PORCINE) 5000 UNITS/ML VIAL SC ×3 (05:55→21:34)
[2018-04-02 05:56] LABS: BEDSIDE GLUCOSE 128 MG/DL (83-110)
[2018-04-02] MEDS: HumaLOG INSULIN (NovoLOG) PER UNIT SC ×4 (05:56→18:07)
[2018-04-02] MEDS: LEVOTHYROXINE 50MCG TABLET (0.05MG) PO (05:57)
[2018-04-02 06:34] LABS: HEMATOCRIT 32.5 % (36.0-47.0); HEMOGLOBIN 10.6 g/dl (12.0-15.5); MEAN CORPUSCULAR HEMOGLOBIN 29.3 pg (27.0-33.0); MEAN CORPUSCULAR HGB CONC 32.6 g/dl (32.0-36.5); MEAN CORPUSCULAR VOLUME 89.8 fl (80.0-96.0); PLATELET COUNT, AUTOMATED 178 10^3/uL (150-450); RED BLOOD COUNT 3.62 10^6/uL (4.00-5.40); RED CELL DISTRIBUTION WIDTH 14.7 % (11.5-14.5); WHITE BLOOD COUNT 5.7 10^3/uL (4.0-10.0)
[2018-04-02 06:56] LABS: ANION GAP 9 MEQ/L (8-16); BLOOD UREA NITROGEN 24 MG/DL (7-18); CALCIUM LEVEL 8.7 MG/DL (8.8-10.2); CARBON DIOXIDE LEVEL 22 MEQ/L (21-32); CHLORIDE LEVEL 111 MEQ/L (98-107); CREATININE FOR GFR 1.54 MG/DL (0.55-1.30); GLOMERULAR FILTRATION RATE 35.1 (>39); GLUCOSE, FASTING 114 MG/DL (70-100); POTASSIUM SERUM 4.6 MEQ/L (3.5-5.1); SODIUM LEVEL 142 MEQ/L (136-145)
[2018-04-02] MEDS: PREGABALIN 100 MG CAP (LYRICA) PO ×3 (08:10→21:35)
[2018-04-02] MEDS: METOCLOPRAMIDE INJ 10MG/2ML VIAL (J2765) IV (08:10)
[2018-04-02] MEDS: FAMOTIDINE 20 MG TAB PO ×2 (08:10→21:34)
[2018-04-02] MEDS: FERROUS SULFATE 325MG TAB PO (08:10)
[2018-04-02] MEDS: METAXALONE 800 MG TABLET PO ×3 (08:10→21:34)
[2018-04-02] MEDS: oxyCODONE 15 MG CR TAB PO (08:11)
[2018-04-02] MEDS: PRAVASTATIN 20 MG TAB PO (08:15)
[2018-04-02] MEDS: MULTIVITAMINS/MINERALS THERAP 1 TAB PO (08:16)
[2018-04-02] MEDS: CYANOCOBALAMIN 500 MCG TAB PO (08:16)
[2018-04-02 11:51] LABS: BEDSIDE GLUCOSE 123 MG/DL (83-110)
[2018-04-02] MEDS: D5W/0.45% SODIUM CHLORIDE 1,000 ML IV (12:25)
[2018-04-02] MEDS: rOPINIRole 1MG TAB PO ×2 (16:21→21:35)
[2018-04-02 20:37] LABS: BEDSIDE GLUCOSE 107 MG/DL (83-110)
[2018-04-02] MEDS: ASPIRIN 81 MG ENTERIC TAB PO (21:34)
[2018-04-02] MEDS: traZODone 100 MG TAB PO (21:35)
[2018-04-03 00:24] LABS: BEDSIDE GLUCOSE 134 MG/DL (83-110)
[2018-04-03] MEDS: D5W/0.45% SODIUM CHLORIDE 1,000 ML IV ×2 (04:19→20:03)
[2018-04-03] MEDS: HumaLOG INSULIN (NovoLOG) PER UNIT SC ×4 (06:00→18:00)
[2018-04-03] MEDS: LEVOTHYROXINE 50MCG TABLET (0.05MG) PO (06:09)
[2018-04-03] MEDS: HEPARIN SOD (PORCINE) 5000 UNITS/ML VIAL SC ×3 (06:09→22:15)
[2018-04-03] MEDS: MORPHINE 4 MG/ML 1ML VIAL/SYRINGE (J2270) IV ×3 (06:10→18:34)
[2018-04-03 06:16] LABS: HEMATOCRIT 31.5 % (36.0-47.0); HEMOGLOBIN 10.1 g/dl (12.0-15.5); MEAN CORPUSCULAR HGB CONC 32.1 g/dl (32.0-36.5); MEAN CORPUSCULAR VOLUME 90.5 fl (80.0-96.0); PLATELET COUNT, AUTOMATED 155 10^3/uL (150-450); RED BLOOD COUNT 3.48 10^6/uL (4.00-5.40); RED CELL DISTRIBUTION WIDTH 14.8 % (11.5-14.5); WHITE BLOOD COUNT 5.6 10^3/uL (4.0-10.0)
[2018-04-03 06:33] LABS: ANION GAP 8 MEQ/L (8-16); BLOOD UREA NITROGEN 28 MG/DL (7-18); CALCIUM LEVEL 8.6 MG/DL (8.8-10.2); CARBON DIOXIDE LEVEL 22 MEQ/L (21-32); CHLORIDE LEVEL 111 MEQ/L (98-107); CREATININE FOR GFR 1.66 MG/DL (0.55-1.30); GLOMERULAR FILTRATION RATE 32.1 (>39); GLUCOSE, FASTING 119 MG/DL (70-100); POTASSIUM SERUM 4.4 MEQ/L (3.5-5.1); SODIUM LEVEL 141 MEQ/L (136-145)
[2018-04-03] MEDS: FAMOTIDINE 20 MG TAB PO ×2 (08:05→20:13)
[2018-04-03] MEDS: oxyCODONE 15 MG CR TAB PO ×2 (08:05→20:14)
[2018-04-03] MEDS: METAXALONE 800 MG TABLET PO ×3 (08:05→20:13)
[2018-04-03] MEDS: FERROUS SULFATE 325MG TAB PO (08:06)
[2018-04-03] MEDS: PREGABALIN 100 MG CAP (LYRICA) PO ×3 (08:06→20:13)
[2018-04-03] MEDS: CYANOCOBALAMIN 500 MCG TAB PO (08:08)
[2018-04-03] MEDS: MULTIVITAMINS/MINERALS THERAP 1 TAB PO (08:08)
[2018-04-03] MEDS: PRAVASTATIN 20 MG TAB PO (08:08)
[2018-04-03] MEDS: METOCLOPRAMIDE INJ 10MG/2ML VIAL (J2765) IV (09:48)
[2018-04-03 11:39] LABS: BEDSIDE GLUCOSE 124 MG/DL (83-110)
[2018-04-03] MEDS: rOPINIRole 1MG TAB PO ×2 (15:11→20:13)
[2018-04-03 18:12] LABS: BEDSIDE GLUCOSE 119 MG/DL (83-110)
[2018-04-03] MEDS: traZODone 100 MG TAB PO (22:15)
[2018-04-03] MEDS: ASPIRIN 81 MG ENTERIC TAB PO (22:15)
[2018-04-04] MEDS: MORPHINE 4 MG/ML 1ML VIAL/SYRINGE (J2270) IV ×4 (00:46→23:03)
[2018-04-04 00:56] LABS: BEDSIDE GLUCOSE 110 MG/DL (83-110)
[2018-04-04] MEDS: HEPARIN SOD (PORCINE) 5000 UNITS/ML VIAL SC ×3 (06:39→22:03)
[2018-04-04] MEDS: LEVOTHYROXINE 50MCG TABLET (0.05MG) PO (06:39)
[2018-04-04 06:49] LABS: HEMATOCRIT 31.7 % (36.0-47.0); HEMOGLOBIN 10.2 g/dl (12.0-15.5); MEAN CORPUSCULAR HEMOGLOBIN 29.4 pg (27.0-33.0); MEAN CORPUSCULAR HGB CONC 32.2 g/dl (32.0-36.5); MEAN CORPUSCULAR VOLUME 91.4 fl (80.0-96.0); PLATELET COUNT, AUTOMATED 147 10^3/uL (150-450); RED BLOOD COUNT 3.47 10^6/uL (4.00-5.40); RED CELL DISTRIBUTION WIDTH 14.6 % (11.5-14.5); WHITE BLOOD COUNT 3.7 10^3/uL (4.0-10.0)
[2018-04-04 07:03] LABS: ANION GAP 9 MEQ/L (8-16); BLOOD UREA NITROGEN 22 MG/DL (7-18); CALCIUM LEVEL 8.6 MG/DL (8.8-10.2); CARBON DIOXIDE LEVEL 22 MEQ/L (21-32); CHLORIDE LEVEL 109 MEQ/L (98-107); CREATININE FOR GFR 1.25 MG/DL (0.55-1.30); GLOMERULAR FILTRATION RATE 44.6 (>39); GLUCOSE, FASTING 197 MG/DL (70-100); SODIUM LEVEL 140 MEQ/L (136-145)
[2018-04-04] MEDS: HumaLOG INSULIN (NovoLOG) PER UNIT SC ×5 (07:22→23:06)
[2018-04-04] MEDS: FERROUS SULFATE 325MG TAB PO (08:43)
[2018-04-04] MEDS: MULTIVITAMINS/MINERALS THERAP 1 TAB PO (08:43)
[2018-04-04] MEDS: FAMOTIDINE 20 MG TAB PO ×2 (08:43→22:02)
[2018-04-04] MEDS: METAXALONE 800 MG TABLET PO ×3 (08:43→22:02)
[2018-04-04] MEDS: PREGABALIN 100 MG CAP (LYRICA) PO ×3 (08:43→22:02)
[2018-04-04] MEDS: PRAVASTATIN 20 MG TAB PO (08:43)
[2018-04-04] MEDS: CYANOCOBALAMIN 500 MCG TAB PO (08:43)
[2018-04-04 11:34] LABS: BEDSIDE GLUCOSE 85 MG/DL (83-110)
[2018-04-04] MEDS: D5W/0.45% SODIUM CHLORIDE 1,000 ML IV (12:10)
[2018-04-04] MEDS: oxyCODONE 15 MG CR TAB PO (12:10)
[2018-04-04] MEDS: rOPINIRole 1MG TAB PO ×2 (16:38→22:02)
[2018-04-04 18:32] LABS: BEDSIDE GLUCOSE 110 MG/DL (83-110)
[2018-04-04 20:33] LABS: KETONE, URINE AUTO RFX TRACE mg/dL (NEGATIVE); RBC, URINE AUTO RFX 8 /HPF (0-3); SPECIFIC GRAVITY UR AUTO RFX 1.011 (1.002-1.035); SQUAM EPITHELIAL CELL UR AURFX 0 /HPF (0-6)
[2018-04-04 20:57] LABS: LEUKOCYTE ESTERASE UR AUTO RFX 3+ (NEGATIVE); NITRITE, URINE AUTO RFX POSITIVE (NEGATIVE); WBC, URINE AUTO RFX 58 /HPF (0-3)
[2018-04-04] MEDS: ASPIRIN 81 MG ENTERIC TAB PO (22:02)
[2018-04-04] MEDS: traZODone 100 MG TAB PO (22:02)
[2018-04-04 23:09] LABS: BEDSIDE GLUCOSE 115 MG/DL (83-110)
[2018-04-05] MEDS: D5W/0.45% SODIUM CHLORIDE 1,000 ML IV ×2 (04:59→21:00)
[2018-04-05] MEDS: MORPHINE 4 MG/ML 1ML VIAL/SYRINGE (J2270) IV ×3 (05:21→20:59)
[2018-04-05 05:55] LABS: BEDSIDE GLUCOSE 113 MG/DL (83-110)
[2018-04-05] MEDS: HumaLOG INSULIN (NovoLOG) PER UNIT SC ×3 (06:00→18:00)
[2018-04-05 06:19] LABS: HEMATOCRIT 33.9 % (36.0-47.0); MEAN CORPUSCULAR HEMOGLOBIN 29.3 pg (27.0-33.0); MEAN CORPUSCULAR HGB CONC 32.4 g/dl (32.0-36.5); MEAN CORPUSCULAR VOLUME 90.4 fl (80.0-96.0); PLATELET COUNT, AUTOMATED 153 10^3/uL (150-450); RED BLOOD COUNT 3.75 10^6/uL (4.00-5.40); RED CELL DISTRIBUTION WIDTH 14.4 % (11.5-14.5); WHITE BLOOD COUNT 4.7 10^3/uL (4.0-10.0)
[2018-04-05] MEDS: HEPARIN SOD (PORCINE) 5000 UNITS/ML VIAL SC ×3 (06:26→21:00)
[2018-04-05] MEDS: LEVOTHYROXINE 50MCG TABLET (0.05MG) PO (06:26)
[2018-04-05 06:32] LABS: ANION GAP 8 MEQ/L (8-16); BLOOD UREA NITROGEN 16 MG/DL (7-18); CALCIUM LEVEL 8.8 MG/DL (8.8-10.2); CARBON DIOXIDE LEVEL 23 MEQ/L (21-32); CHLORIDE LEVEL 111 MEQ/L (98-107); CREATININE FOR GFR 1.04 MG/DL (0.55-1.30); GLOMERULAR FILTRATION RATE 55.1 (>39); GLUCOSE, FASTING 105 MG/DL (70-100); SODIUM LEVEL 142 MEQ/L (136-145)
[2018-04-05] MEDS: MULTIVITAMINS/MINERALS THERAP 1 TAB PO (09:49)
[2018-04-05] MEDS: METAXALONE 800 MG TABLET PO ×3 (09:49→20:45)
[2018-04-05] MEDS: CYANOCOBALAMIN 500 MCG TAB PO (09:49)
[2018-04-05] MEDS: FAMOTIDINE 20 MG TAB PO ×2 (09:50→20:45)
[2018-04-05] MEDS: FERROUS SULFATE 325MG TAB PO (09:50)
[2018-04-05] MEDS: PREGABALIN 100 MG CAP (LYRICA) PO ×3 (09:50→20:45)
[2018-04-05] MEDS: PRAVASTATIN 20 MG TAB PO (09:50)
[2018-04-05 11:14] LABS: AMORPHOUS SEDIMENT RFX SMALL (NEGATIVE); KETONE, URINE AUTO RFX TRACE mg/dL (NEGATIVE); LEUKOCYTE ESTERASE UR AUTO RFX 3+ (NEGATIVE); MUCUS, URINE RFX SMALL (NEGATIVE); NITRITE, URINE AUTO RFX NEGATIVE (NEGATIVE); RBC, URINE AUTO RFX 51 /HPF (0-3); SPECIFIC GRAVITY UR AUTO RFX 1.012 (1.002-1.035); SQUAM EPITHELIAL CELL UR AURFX 8 /HPF (0-6); TRANSITIONAL EPITHELIAL AU RFX 2 /HPF; WBC, URINE AUTO RFX TNTC /HPF (0-3)
[2018-04-05 12:07] LABS: BEDSIDE GLUCOSE 133 MG/DL (83-110)
[2018-04-05] MEDS: rOPINIRole 1MG TAB PO ×2 (15:31→20:45)
[2018-04-05] MEDS: CIPROFLOXACIN 500 MG TAB PO (17:14)
[2018-04-05] MEDS: ONDANSETRON 4MG/2ML VIAL (J2405) IV (17:14)
[2018-04-05 18:19] LABS: BEDSIDE GLUCOSE 103 MG/DL (83-110)
[2018-04-05] MEDS: ASPIRIN 81 MG ENTERIC TAB PO (20:45)
[2018-04-05] MEDS: traZODone 100 MG TAB PO (20:46)
[2018-04-05] MEDS: oxyCODONE 15 MG CR TAB PO (22:28)
[2018-04-06 00:27] LABS: BEDSIDE GLUCOSE 106 MG/DL (83-110)
[2018-04-06] MEDS: HumaLOG INSULIN (NovoLOG) PER UNIT SC ×4 (00:30→18:00)
[2018-04-06 05:53] LABS: BEDSIDE GLUCOSE 111 MG/DL (83-110)
[2018-04-06] MEDS: HEPARIN SOD (PORCINE) 5000 UNITS/ML VIAL SC ×3 (06:10→21:16)
[2018-04-06] MEDS: CIPROFLOXACIN 500 MG TAB PO ×2 (06:10→17:23)
[2018-04-06] MEDS: MORPHINE 4 MG/ML 1ML VIAL/SYRINGE (J2270) IV ×3 (06:10→21:11)
[2018-04-06] MEDS: LEVOTHYROXINE 50MCG TABLET (0.05MG) PO (06:10)
[2018-04-06 06:26] LABS: HEMATOCRIT 28.7 % (36.0-47.0); HEMOGLOBIN 9.1 g/dl (12.0-15.5); MEAN CORPUSCULAR HEMOGLOBIN 28.5 pg (27.0-33.0); MEAN CORPUSCULAR HGB CONC 31.7 g/dl (32.0-36.5); PLATELET COUNT, AUTOMATED 122 10^3/uL (150-450); RED BLOOD COUNT 3.19 10^6/uL (4.00-5.40); RED CELL DISTRIBUTION WIDTH 14.3 % (11.5-14.5)
[2018-04-06 06:37] LABS: ANION GAP 7 MEQ/L (8-16); BLOOD UREA NITROGEN 15 MG/DL (7-18); CALCIUM LEVEL 8.6 MG/DL (8.8-10.2); CARBON DIOXIDE LEVEL 23 MEQ/L (21-32); CHLORIDE LEVEL 110 MEQ/L (98-107); CREATININE FOR GFR 0.94 MG/DL (0.55-1.30); GLOMERULAR FILTRATION RATE > 60.0 (>39); GLUCOSE, FASTING 110 MG/DL (70-100); POTASSIUM SERUM 3.8 MEQ/L (3.5-5.1); SODIUM LEVEL 140 MEQ/L (136-145)
[2018-04-06] MEDS: FAMOTIDINE 20 MG TAB PO ×2 (09:09→21:21)
[2018-04-06] MEDS: FERROUS SULFATE 325MG TAB PO (09:09)
[2018-04-06] MEDS: PRAVASTATIN 20 MG TAB PO (09:09)
[2018-04-06] MEDS: CYANOCOBALAMIN 500 MCG TAB PO (09:10)
[2018-04-06] MEDS: MULTIVITAMINS/MINERALS THERAP 1 TAB PO (09:10)
[2018-04-06] MEDS: METAXALONE 800 MG TABLET PO ×3 (09:10→21:21)
[2018-04-06] MEDS: PREGABALIN 100 MG CAP (LYRICA) PO ×3 (09:10→21:21)
[2018-04-06] MEDS: DOCUSATE SODIUM 100 MG CAP PO ×2 (11:00→21:21)
[2018-04-06] MEDS: D5W/0.45% SODIUM CHLORIDE 1,000 ML IV (11:02)
[2018-04-06 12:10] LABS: BEDSIDE GLUCOSE 120 MG/DL (83-110)
[2018-04-06 12:40] LABS: HEMATOCRIT 30.4 % (36.0-47.0); HEMOGLOBIN 10.3 g/dl (12.0-15.5); MEAN CORPUSCULAR HEMOGLOBIN 29.3 pg (27.0-33.0); MEAN CORPUSCULAR HGB CONC 33.9 g/dl (32.0-36.5); MEAN CORPUSCULAR VOLUME 86.4 fl (80.0-96.0); PLATELET COUNT, AUTOMATED 147 10^3/uL (150-450); RED BLOOD COUNT 3.52 10^6/uL (4.00-5.40); RED CELL DISTRIBUTION WIDTH 14.3 % (11.5-14.5); WHITE BLOOD COUNT 5.7 10^3/uL (4.0-10.0)
[2018-04-06] MEDS: oxyCODONE 15 MG CR TAB PO ×2 (14:18→22:16)
[2018-04-06] MEDS: ONDANSETRON 4MG/2ML VIAL (J2405) IV ×2 (14:18→22:15)
[2018-04-06] MEDS: METOCLOPRAMIDE INJ 10MG/2ML VIAL (J2765) IV ×2 (16:23→21:10)
[2018-04-06] MEDS: rOPINIRole 1MG TAB PO ×2 (16:27→21:21)
[2018-04-06 17:30] LABS: BEDSIDE GLUCOSE 102 MG/DL (83-110)
[2018-04-06] MEDS: ASPIRIN 81 MG ENTERIC TAB PO (21:21)
[2018-04-06] MEDS: MIRALAX *UNIT DOSE* 17GM PACKET PO (21:21)
[2018-04-06] MEDS: traZODone 100 MG TAB PO (21:21)
[2018-04-07] MEDS: HumaLOG INSULIN (NovoLOG) PER UNIT SC ×3 (00:10→13:06)
[2018-04-07 00:11] LABS: BEDSIDE GLUCOSE 106 MG/DL (83-110)
[2018-04-07] MEDS: D5W/0.45% SODIUM CHLORIDE 1,000 ML IV (03:27)
[2018-04-07 06:08] LABS: BEDSIDE GLUCOSE 97 MG/DL (83-110)
[2018-04-07] MEDS: CIPROFLOXACIN 500 MG TAB PO (06:12)
[2018-04-07] MEDS: HEPARIN SOD (PORCINE) 5000 UNITS/ML VIAL SC ×2 (06:12→13:06)
[2018-04-07] MEDS: LEVOTHYROXINE 50MCG TABLET (0.05MG) PO (06:12)
[2018-04-07 06:44] LABS: HEMATOCRIT 26.7 % (36.0-47.0); HEMOGLOBIN 8.8 g/dl (12.0-15.5); MEAN CORPUSCULAR HEMOGLOBIN 29.1 pg (27.0-33.0); MEAN CORPUSCULAR VOLUME 88.4 fl (80.0-96.0); PLATELET COUNT, AUTOMATED 120 10^3/uL (150-450); RED BLOOD COUNT 3.02 10^6/uL (4.00-5.40); RED CELL DISTRIBUTION WIDTH 14.5 % (11.5-14.5)
[2018-04-07 06:56] LABS: ANION GAP 7 MEQ/L (8-16); BLOOD UREA NITROGEN 13 MG/DL (7-18); CALCIUM LEVEL 8.3 MG/DL (8.8-10.2); CARBON DIOXIDE LEVEL 23 MEQ/L (21-32); CHLORIDE LEVEL 110 MEQ/L (98-107); GLOMERULAR FILTRATION RATE 57.7 (>39); GLUCOSE, FASTING 108 MG/DL (70-100); POTASSIUM SERUM 3.8 MEQ/L (3.5-5.1); SODIUM LEVEL 140 MEQ/L (136-145)
[2018-04-07] MEDS: PRAVASTATIN 20 MG TAB PO (11:03)
[2018-04-07] MEDS: FERROUS SULFATE 325MG TAB PO (11:03)
[2018-04-07] MEDS: MULTIVITAMINS/MINERALS THERAP 1 TAB PO (11:03)
[2018-04-07] MEDS: CYANOCOBALAMIN 500 MCG TAB PO (11:03)
[2018-04-07] MEDS: PREGABALIN 100 MG CAP (LYRICA) PO (11:03)
[2018-04-07] MEDS: FAMOTIDINE 20 MG TAB PO (11:04)
[2018-04-07] MEDS: METAXALONE 800 MG TABLET PO (11:04)
[2018-04-07] MEDS: DOCUSATE SODIUM 100 MG CAP PO (11:04)
[2018-04-07 11:47] LABS: BEDSIDE GLUCOSE 131 MG/DL (83-110)
[2018-04-07] MEDS: oxyCODONE 15 MG CR TAB PO (13:56)
== END 2018-04-07 15:35 | disposition home health service (06) | DRG 389 ==
LOC: M ED 08:21 → M ED INP 14:03 → M MSPAV 15:42
DX: K56.7 Ileus, unspecified (principal); N10 Acute pyelonephritis; I10 Essential (primary) hypertension; E11.40 Type 2 diabetes mellitus with diabetic neuropathy, unspecified; E03.9 Hypothyroidism, unspecified; G47.33 Obstructive sleep apnea (adult) (pediatric); G25.81 Restless legs syndrome; K21.9 Gastro-esophageal reflux disease without esophagitis; M79.7 Fibromyalgia; I25.10 Atherosclerotic heart disease of native coronary artery without angina pectoris; Z93.6 Other artificial openings of urinary tract status; E87.5 Hyperkalemia; Z93.3 Colostomy status; K56.600 Partial intestinal obstruction, unspecified as to cause; Z79.899 Other long term (current) drug therapy; Z79.82 Long term (current) use of aspirin; Z88.5 Allergy status to narcotic agent; Z88.8 Allergy status to other drugs, medicaments and biological substances; Z88.7 Allergy status to serum and vaccine

== ENCOUNTER → 2018-04-20 | Outpatient (REF) | payer MEDICARE, BC ==
[2018-04-20 18:22] LABS: LIPASE 89 U/L (73-393)
== END ==
LOC: M LAB REF 17:35
DX: R10.9 Unspecified abdominal pain (principal)
CPT/HCPCS: 83690

== ENCOUNTER 2018-05-26 07:41 | Day surgery (SDC) | payer MEDICARE, BC ==
[2018-05-26 08:33] LABS: BEDSIDE GLUCOSE 97 MG/DL (83-110)
[2018-05-26] MEDS ORDERED: ONDANSETRON 4MG/2ML VIAL (J2405) As Ordered (09:53)
[2018-05-26] MEDS ORDERED: MIDAZOLAM INJ 2 MG/2 ML VIAL (J2250) As Ordered (09:53)
[2018-05-26] MEDS ORDERED: LIDOCAINE 2% INJ 100 MG/5 ML SDV (FOR ANES.) As Ordered (09:53)
[2018-05-26] MEDS ORDERED: SUCCINYLCHOLINE 100 MG/5 ML SYRINGE (J0330) As Ordered (09:53)
[2018-05-26] MEDS ORDERED: PROPOFOL 200 MG/20 ML VIAL As Ordered (09:53)
[2018-05-26] MEDS ORDERED: dexameTHASONE 4 MG/ML 1ML VIAL (J1100) As Ordered (09:53)
[2018-05-26] MEDS ORDERED: fentaNYL 100 MCG/2 ML INJECTION (J3010) As Ordered (09:53)
[2018-05-26] MEDS ORDERED: ROCURONIUM BROMIDE 50 MG/5 ML VIAL As Ordered (09:53)
[2018-05-26] MEDS ORDERED: ePHEDrine SULFATE 25 MG/5 ML(5MG/ML) SYRINGE As Ordered (09:58)
[2018-05-26] MEDS ORDERED: GLYCOPYRROLATE INJ 0.2 MG/ML 2 ML VIAL As Ordered (10:05)
[2018-05-26] MEDS: LIDOCAINE W/EPINEPHRINE 1% 20ML VIAL As Ordered (10:09)
[2018-05-26] MEDS ORDERED: PERCOCET 5MG/325MG TAB As Ordered (10:35)
[2018-05-26] MEDS: PERCOCET 5MG/325MG TAB PO (10:43)
[2018-05-26] MEDS ORDERED: fentaNYL 100 MCG/2 ML INJECTION (J3010) IV (10:45)
[2018-05-26] MEDS ORDERED: ONDANSETRON 4MG/2ML VIAL (J2405) IV (10:45)
== END 2018-05-26 11:57 | disposition home or self-care (01) ==
LOC: M SDC 07:41
DX: K13.6 Irritative hyperplasia of oral mucosa (principal); E11.21 Type 2 diabetes mellitus with diabetic nephropathy; N18.3 Chronic kidney disease, stage 3 (moderate); E03.9 Hypothyroidism, unspecified; I10 Essential (primary) hypertension; E78.5 Hyperlipidemia, unspecified; K21.9 Gastro-esophageal reflux disease without esophagitis; F41.9 Anxiety disorder, unspecified; Z79.82 Long term (current) use of aspirin; Z79.899 Other long term (current) drug therapy; Z79.84 Long term (current) use of oral hypoglycemic drugs
CPT/HCPCS: 14040

== ENCOUNTER → 2018-07-06 | Outpatient (CLI) | payer OTHER, MEDICARE, BC ==
[2018-07-06 18:50] LABS: ALBUMIN 3.7 GM/DL (3.2-5.2); ANION GAP 9 MEQ/L (8-16); BLOOD UREA NITROGEN 30 MG/DL (7-18); CALCIUM LEVEL 8.7 MG/DL (8.8-10.2); CARBON DIOXIDE LEVEL 26 MEQ/L (21-32); CHLORIDE LEVEL 106 MEQ/L (98-107); CREATININE FOR GFR 1.29 MG/DL (0.55-1.30); GLUCOSE, FASTING 132 MG/DL (70-100); PHOSPHORUS LEVEL 3.4 MG/DL (2.5-4.9); POTASSIUM SERUM 4.1 MEQ/L (3.5-5.1); SODIUM LEVEL 141 MEQ/L (136-145)
== END ==
LOC: M LAB 17:41
DX: M54.16 Radiculopathy, lumbar region (principal)
CPT/HCPCS: 80069

== ENCOUNTER 2018-08-08 11:06 | Emergency (ER) | payer MEDICARE, BC, OTHER ==
[2018-08-08 12:00] LABS: HEMOGLOBIN 11.2 g/dl (12.0-15.5); MEAN CORPUSCULAR HEMOGLOBIN 29.2 pg (27.0-33.0); MEAN CORPUSCULAR HGB CONC 32.9 g/dl (32.0-36.5); MEAN CORPUSCULAR VOLUME 88.5 fl (80.0-96.0); PLATELET COUNT, AUTOMATED 162 10^3/uL (150-450); RED BLOOD COUNT 3.84 10^6/uL (4.00-5.40); RED CELL DISTRIBUTION WIDTH 14.1 % (11.5-14.5); WHITE BLOOD COUNT 8.6 10^3/uL (4.0-10.0)
[2018-08-08 12:05] LABS: ANION GAP 10 MEQ/L (8-16); BLOOD UREA NITROGEN 17 MG/DL (7-18); CARBON DIOXIDE LEVEL 24 MEQ/L (21-32); CHLORIDE LEVEL 107 MEQ/L (98-107); GLOMERULAR FILTRATION RATE 46.8 (>39); GLUCOSE, FASTING 111 MG/DL (70-100); POTASSIUM SERUM 3.9 MEQ/L (3.5-5.1); SODIUM LEVEL 141 MEQ/L (136-145)
[2018-08-08] MEDS: MORPHINE 4 MG/ML 1ML VIAL/SYRINGE (J2270) IV ×2 (12:13→13:37)
[2018-08-08] MEDS: LORazepam 2 MG/ML VIAL (J2060) IV (12:13)
[2018-08-08] MEDS: KETOROLAC 30 MG/ML VIAL (J1885) IV (12:13)
[2018-08-08] MEDS: ONDANSETRON 4MG/2ML VIAL (J2405) IV (13:37)
== END 2018-08-08 16:15 | disposition home or self-care (01) ==
LOC: M ED 11:06
DX: N13.2 Hydronephrosis with renal and ureteral calculous obstruction (principal); R10.9 Unspecified abdominal pain; I25.10 Atherosclerotic heart disease of native coronary artery without angina pectoris; E11.9 Type 2 diabetes mellitus without complications; I10 Essential (primary) hypertension; G25.81 Restless legs syndrome; K21.9 Gastro-esophageal reflux disease without esophagitis; M79.7 Fibromyalgia; G47.30 Sleep apnea, unspecified; G89.29 Other chronic pain; M54.9 Dorsalgia, unspecified; Z90.49 Acquired absence of other specified parts of digestive tract; Z90.6 Acquired absence of other parts of urinary tract; Z96.0 Presence of urogenital implants; Z93.2 Ileostomy status; Z79.82 Long term (current) use of aspirin; Z79.899 Other long term (current) drug therapy; Z88.5 Allergy status to narcotic agent; Z88.7 Allergy status to serum and vaccine; Z88.8 Allergy status to other drugs, medicaments and biological substances; Z91.89 Other specified personal risk factors, not elsewhere classified
CPT/HCPCS: J2270

== ENCOUNTER → 2018-10-11 | Outpatient (CLI) | payer MEDICARE, BC ==
[~2018-10-11] MED LIST changes: +ASPI81TAEC PO; +AUGM875T28 PO; +BACITAB PO; +CIPR-249 PO; +KEFL500C17 PO; -LAMI1TAB6 PO; +LAMI250T3 PO; +MIRA33504 PO; +NITR0.4S14 SL; +OXYC-404 PO; +OXYC-423 PO; +OXYC10TA12 PO; +OXYC15TA66 PO; +OXYC15TA76 PO; +TRAZ-189 PO; -ZOFR20TA PO; +ZOFR4TAB16 PO
--- NOTE | 2018-10-11 19:24 | REP ---
NUCLEAR RENAL SCAN OF FLOW AND FUNCTION: 10/11/2018. Clinical history: Chronic kidney disease, stage III moderate, renovascular hypertension, status post cystectomy with ileal loop diversion and a left internal ureteral stent in place on CT 08/08/2018. Comparison: Renal scan 04/21/2016, CT 08/08/2018. Technique: The patient received 8.8 mCi technetium 99m Mag III, posterior flow images and function images. Renal cortical regions of interest were drawn and time activity curves are plotted for function. Findings: Split function shows 27.4% left kidney and 72.6% right kidney. Time of maximum activity on the left is 0.33 and on the right 2 minutes. Flow appears asymmetric greater right than left and somewhat delayed. Time of one half maximum activity on the left is greater than 30 minutes. On the right 16 minutes. Function curve is flat on the left and with a shallow slope on the right. The activity remains within the renal pelvis and collecting system on the right and in the collecting system on the left. Activity is seen into the ileal loop. Patient sat up for pre and post void images to note that drainage from the renal pelvis on the right was improved and not much changed on the left. Impression: 1. Diminished flow and decreased function for both kidneys compared to the previous study. Perfusion is somewhat asymmetric right greater than left. This is also diminished since the prior study. 2. The right renal pelvic and kidney collecting system drained better than the left on the postvoid image with the patient sitting up. Electronically Signed by Geoff Patel MD 10/11/2018 09:30 P
== END ==
LOC: M RAD 13:26
PROVIDERS: ATTEND Internal Medicine Nephrology
DX: N18.3 Chronic kidney disease, stage 3 (moderate) (principal); I15.0 Renovascular hypertension
CPT/HCPCS: 78707; A9562

== ENCOUNTER 2018-12-26 08:15 | Inpatient (IN) | payer MEDICARE, BC ==
[~2018-12-26] VITALS: Ht 162.6 cm; Wt 76.4 kg
[~2018-12-26 08:15] MED LIST changes: -/ADVA50050; -/ADVA50050 IN; -/PANT40TA; +ADVA1AER2; +ADVA1AER2 IN; -ASPI1TAB PO; +ASPI81TA26 PO; +CLOT1CRE27 TOP; -CLOTR1CR TOP; -EQ S PO; +FENT75DI18 TD; -FENT75PA TD; +LINE1TAB PO; -LINE60TAB PO; +LISI40TA52 PO; -LISI40TAB PO; +METO-1; +PROT1TAB2; +STOO100C15 PO; -TOPR25TA
[2018-12-26] MEDS ORDERED: NS 1,000 ML IV SCH (08:25)
[2018-12-26] MEDS ORDERED: AMLO5TAB6 PO (09:15)
[2018-12-26 09:41] LABS: BASO % 0.3 % (0.0-1.0); EOS # 0.1 10^3/uL (0.0-0.50); EOS % 1.8 % (0.0-3.0); HEMATOCRIT 34.4 % (36.0-47.0); HEMOGLOBIN 11.3 g/dl (12.0-15.5); LYMPH # 1.3 10^3/uL (1.5-4.5); LYMPH % 17.1 % (24.0-44.0); MEAN CORPUSCULAR HEMOGLOBIN 30.1 pg (27.0-33.0); MEAN CORPUSCULAR HGB CONC 32.8 g/dl (32.0-36.5); MEAN CORPUSCULAR VOLUME 91.7 fl (80.0-96.0); MONO # 0.5 10^3/uL (0.0-0.8); MONO % 6.8 % (0.0-5.0); NEUTROPHILS # 5.6 10^3/uL (1.8-7.7); NEUTROPHILS % 73.6 % (36.0-66.0); PLATELET COUNT, AUTOMATED 159 10^3/uL (150-450); RED BLOOD COUNT 3.75 10^6/uL (4.00-5.40); WHITE BLOOD COUNT 7.7 10^3/uL (4.0-10.0)
[2018-12-26 09:53] LABS: ALBUMIN 3.6 GM/DL (3.2-5.2); BILIRUBIN,DIRECT 0.2 MG/DL (0.0-0.2); BILIRUBIN,TOTAL 0.6 MG/DL (0.2-1.0); CALCIUM LEVEL 8.8 MG/DL (8.8-10.2); CREATININE FOR GFR 1.4 MG/DL (0.55-1.30); GLOMERULAR FILTRATION RATE 39.1 (>39); POTASSIUM SERUM 4.7 MEQ/L (3.5-5.1); TOTAL PROTEIN 6.7 GM/DL (6.4-8.2)
[2018-12-26] MEDS ORDERED: ONDANSETRON 4MG/2ML VIAL (J2405) IV ONE (10:30)
[2018-12-26] MEDS: MORPHINE 4 MG/ML 1ML VIAL/SYRINGE (J2270) IV PRN ×4 (10:32→22:06)
[2018-12-26] MEDS ORDERED: ISOVUE-370 76% 100ML VIAL (Q9967) As Ordered ONE (10:52)
--- NOTE | 2018-12-26 13:37 | REP ---
CHEST, ABDOMEN, AND PELVIS WITH IV CONTRAST: TECHNIQUE: Axial contrast enhanced images from the lung bases to the pubic symphysis using 100 mL Isovue 370 intravenous contrast material with multiplanar reformations. COMPARISON: 08/08/2018. Visualized lung bases demonstrate no infiltrate. Liver appears unchanged. There has been a prior cholecystectomy. There is prominence of the common bile duct and intrahepatic bile ducts unchanged since the prior exam. There is mild splenomegaly with no other intrinsic splenic abnormality. The left adrenal is unremarkable. The right adrenal demonstrates a fatty nodule compatible with a small myolipoma, measuring 2 cm in diameter. The pancreas is grossly unremarkable. There is no hydronephrosis bilaterally. There is left renal atrophy again noted. A pigtail stent is seen in the proximal left ureter extending into a right lower quadrant ileostomy which exits the right lower quadrant abdominal wall. There is no abdominal aortic aneurysm. I see no adenopathy. There is no free air or free fluid. The patient has had a left hemicolectomy and cystectomy. There is a left lower quadrant colostomy. Stomach is mildly distended with air and fluid. There are multiple surgical sutures surrounding small bowel loops. Small bowel loops are moderately dilated in the left lower quadrant and there appears to be a transition point in the left lower quadrant compatible with small bowel obstruction. There is a small amount of adjacent mesenteric edema and fluid. No other acute abnormalities are seen. IMPRESSION: There is evidence of small bowel obstruction in the left lower quadrant with a transition zone noted in the small bowel caliber at that location. No free air or significant free fluid. Old postsurgical changes as discussed in detail above. Electronically Signed by Kurt Jain MD 12/27/2018 03:26 P
[2018-12-26] MEDS ORDERED: CETACAINE SPRAY 5GM TOP ONE (13:45)
[2018-12-26] MEDS ORDERED: ONDANSETRON 4MG/2ML VIAL (J2405) IV PRN (14:00)
[2018-12-26] MEDS ORDERED: PROMETHAZINE INJ 25 MG/ML VIAL (J2550) IV PRN (14:00)
[2018-12-26] MEDS ORDERED: MORPHINE 4 MG/ML 1ML VIAL/SYRINGE (J2270) IV PRN (14:00)
[2018-12-26] MEDS ORDERED: METOCLOPRAMIDE INJ 10MG/2ML VIAL (J2765) IV PRN (14:00)
[2018-12-26] MEDS ORDERED: MIRA3350 PO (14:11)
[2018-12-26] MEDS ORDERED: TRAZ-163 PO (14:11)
[2018-12-26] MEDS ORDERED: OXYC10TA12 PO (14:11)
[2018-12-26] MEDS ORDERED: LISI-538 PO (14:11)
[2018-12-26] MEDS: D5W/LR 1,000 ML IV SCH ×2 (14:25→21:55)
[2018-12-26] MEDS ORDERED: DEXTROSE 50% 50 ML SYRINGE IV PRN (15:45)
[2018-12-26] MEDS ORDERED: GLUCOSE 4 GM CHEW TABLET PO PRN (15:45)
[2018-12-26] MEDS ORDERED: GLUCAGON FOR INJ 1 MG VIAL (J1610) SC PRN (15:45)
[2018-12-26 16:30] VITALS: BP 110/50
[2018-12-26] MEDS ORDERED: NITROGLYCERIN 0.4 MG SUBL TABLET SL PRN (17:00)
--- NOTE | 2018-12-26 17:01 | CR.PDOC ---
General Date of Consultation: December 26, 2018 Consultation REASON FOR CONSULTATION/CHIEF COMPLAINT: [Medical management in SBO patient]. HISTORY OF PRESENT ILLNESS: [73-year-old female with neuropathy,hypothyroidism, hypertension, restless leg syndrome, acid reflux, fibromyalgia, obstructive sleep apnea, suppose to be on bilevel positive airway pressure (BiPAP) at night but noncompliant, coronary artery disease and had multiple abdominal surgeries for small bowel obstruction, which eventually ended in partial colectomy with a colostomy bag. She has multiple urological surgeries for cystocele, rectocele, uterine prolapse, multiple urinary tract infections (UTIs), which eventually ended in cystectomy and ileal conduit with urostomy. She also had a complicated hydronephrosis and initially had bilateral nephrostomy tube, now just only has a left-sided nephrostomy tube. She presents to the emergency room complaining of abdominal pain that started last night. Patient states that she went to bed for tonight in the morning had severe left-sided abdominal discomfort therefore came to emergency room for further evaluation. Patient also noted that she did not have much stool output in her colostomy bag. She had some nausea but no active vomiting as patient had poor by mouth intake due to the abdominal pain and discomfort. Patient had loose stool yesterday but no bowel movement today. Patient denies of any fever, diarrhea, cough, dysuria, or any sputum production. Patient is being admitted under surgery for small bowel obstruction. Hospitalist was consulted for medical management.]. ALLERGIES: Please see below. HOME MEDICATIONS: Please see below. PAST MEDICAL HISTORY: See history of the present illness PAST SURGICAL HISTORY: Multiple abdominal surgeries with bowel resection with a colostomy, history of cystocele, rectocele repair, bladder surgery. She has a total cystectomy and she has an ileal conduit urostomy bag. In 1997, she had lumbar vertebral fusion surgery. She has had nephrostomy tubes placed, replaced and now she has a left- sided nephrostomy. She also had hysterectomy, appendectomy, cholecystectomy. FAMILY HISTORY: Noncontributory SOCIAL HISTORY: She denies tobacco, alcohol or illicit drug use. REVIEW OF SYSTEMS: 12 point review systems negative than those described in HPI PHYSICAL EXAMINATION: VITAL SIGNS: Please see below GENERAL APPEARANCE: Resting comfortably HEENT: Normocephalic, PERRLA, NG tube in place CARDIOVASCULAR: S1,S2, pulse present, regularly, regular LUNGS: Equal air entry b/l, no wheezes or crackle ABDOMEN: Soft, no bowel sound, left-sided abdominal discomfort with slight g uarding but no rigidity, colostomy bag in place without content EXTREMITIES: B/L no edema, capillary refill present SKIN: Warm, No fever NEUROLOGICAL: Cranial nerves grossly intact PSYCHIATRIC: Normal mood and affect for current situation LABORATORY DATA: Please see below. ASSESSMENT/PLAN: ASSESSMENT AND PLAN: 73-year-old female with neuropathy,hypothyroidism, hypertension, restless leg syndrome, acid reflux, fibromyalgia, obstructive sleep apnea, suppose to be on bilevel positive airway pressure (BiPAP) at night but noncompliant, coronary artery disease and had multiple abdominal surgeries for small bowel obstruction, which eventually ended in partial colectomy with a colostomy bag came to ER for abdominal pain found to have SBO. Abdominal from SBO, Nausea -CT abdomen: There is evidence of small bowel obstruction in the left lower quadrant with a transition zone noted in the small bowel at that location. No free air or significant free fluid. Old postsurgical changes -As per surgery Dr. Navarro -NPO, NGT, IVF, pain management, defer bowel moving regimen -No abx for now as only leukocytosis but no nitrate in UA, no fever, and clinically denied of dysuria. ARF, suspect pre-renal -hold lisinopril -ivf as sx -renal us and consult prn Diabetes -FS monitoring, hypoglycemia protocol -Hold PO medication -PRN insulin Fibromyalgia. -hold Lyrica. Obstructive sleep apnea. -Non compliant w BIPAP/CPAP -NC oxygen at night Gastroesophageal reflux disease. -IV protonix. Restless leg syndrome -hold ropinirole. Hypertension. -hold amlodipine and lisinorpil -use IV anti-HTN prn Hypothyroidism. -hold po Synthroid -iv synthroid Chronic pain -hold po home med -IV med as per sx -hold BM moving regimen and to sx HLD -hold po Statin Anemia -hold iron supplement Deep vein thrombosis (DVT) prophylaxis asper surgery. Vital Signs/I&O Vital Signs Date Time Temp Pulse Resp B/P (MAP) Pulse Ox O2 Delivery O2 Flow Rate FiO2 12/26/18 16:19 96 Room Air 12/26/18 16:13 50 20 131/60 12/26/18 15:33 97.6 Laboratory Data Labs 24H Laboratory Tests 2 12/26/18 08:41: Immature Granulocyte % (Auto) 0.4, White Blood Count 7.7, Red Blood Count 3.75L, Hemoglobin 11.3L, Hematocrit 34.4L, Mean Corpuscular Volume 91.7, Mean Corpuscular Hemoglobin 30.1, Mean Corpuscular Hemoglobin Concent 32.8, Red Cell Distribution Width 14.7H, Platelet Count 159, Neutrophils (%) (Auto) 73.6H, Lymphocytes (%) (Auto) 17.1L, Monocytes (%) (Auto) 6.8H, Eosinophils (%) (Auto) 1.8, Basophils (%) (Auto) 0.3, Neutrophils # (Auto) 5.6, Lymphocytes # (Auto) 1.3L, Monocytes # (Auto) 0.5, Eosinophils # (Auto) 0.1, Basophils # (Auto) 0.0, Nucleated Red Blood Cells % (auto) 0.0, Anion Gap 6L, Glomerular Filtration Rate 39.1, Lactic Acid Level 1.2, Calcium Level 8.8, Aspartate Amino Transf (AST/SGOT) 25, Alanine Aminotransferase (ALT/SGPT) 19, Alkaline Phosphatase 109, Total Bilirubin 0.6, Direct Bilirubin 0.2, Total Protein 6.7, Albumin 3.6, Albumin/Globulin Ratio 1.16, Lipase 77 12/26/18 11:44: Urine Color YELLOW, Urine Appearance TURBIDH, Urine pH 7.0, Urine Specific [place] 1.016, Urine Protein 2+H, Urine Glucose (UA) NEGATIVE, Urine Ketones NEGATIVE, Urine Blood NEGATIVE, Urine Nitrite NEGATIVE, Urine Bilirubin NEGATIVE, Urine Urobilinogen 0.2, Urine Leukocyte Esterase 3+H, Urine WBC (Auto) 50H, Urine RBC (Auto) 8H, Urine Hyaline Casts (Auto) 0, Urine Bacteria (Auto) 2+H, Urine Squamous Epithelial Cells 2, Urine Uric Acid Crystals (Auto) SMALL, Urine Amorphous Sediment SMALLH, Urine Sperm (Auto) CBC/BMP Laboratory Tests 12/26/18 08:41 Red Blood Count 3.75 L, Mean Corpuscular Volume 91.7, Mean Corpuscular Hemogl obin 30.1, Mean Corpuscular Hemoglobin Concent 32.8, Red Cell Distribution Width 14.7 H, Neutrophils (%) (Auto) 73.6 H, Lymphocytes (%) (Auto) 17.1 L, Monocytes (%) (Auto) 6.8 H, Eosinophils (%) (Auto) 1.8, Basophils (%) (Auto) 0.3, Neutrophils # (Auto) 5.6, Lymphocytes # (Auto) 1.3 L, Monocytes # (Auto) 0.5, Eosinophils # (Auto) 0.1, Basophils # (Auto) 0.0 Microbiology Microbiology 12/26/18 Blood Culture, Received Pending 12/26/18 Blood Culture, Received Pending 12/26/18 Urine Culture, Received Pending Allergies Coded Allergies: clonidine (Verified Allergy, Severe, faint, 12/26/18) influenza virus vacc trivalent, spl (Verified Allergy, Severe, coma, 12/26/18) influenza virus vaccine tv 2012-(18-49 yrs),rcmb (Verified Allergy, Severe, flu vaccine - coma, 12/26/18) pneumococcal vaccine (Verified Allergy, Intermediate, hives, 12/26/18) quinapril (Verified Allergy, Intermediate, passed out, 12/26/18) Corticosteroids (Glucocorticoids) (Verified Allergy, Unknown, 12/26/18) codeine (Verified Allergy, Unknown, 12/26/18) pt has had morphine in the past TAPE (Verified Adverse Reaction, Mild, BLISTERS, 05/26/18) zolpidem (Verified Adverse Reaction, Mild, sleep walking, 12/26/18) Home Medications Scheduled Amlodipine Besylate (Amlodipine Besylate) 5 Mg Tablet, 5 MG PO DAILY, (Reported) Aspirin (Aspirin EC) 81 Mg Tabec, 81 MG PO QHS, (Reported) Cyanocobalamin (Vitamin B-12) (Vitamin B-12) 1,000 Mcg Tab, 1,000 MCG PO DAILY, (Reported) Ferrous Sulfate (Ferrous Sulfate) 325 Mg Tab, 325 MG PO DAILY, (Reported) Levothyroxine Sodium (Levothyroxine Sodium) 50 Mcg Tab, 50 MCG PO DAILY, (Reported) Lisinopril (Lisinopril) 20 Mg Tablet, 20 MG PO DAILY, (Reported) Metaxalone (Skelaxin) 800 Mg Tab, 800 MG PO TID, (Reported) Oxycodone HCl (Oxycodone HCl ER) 20 Mg Tab, 20 MG PO BID, (Reported) Pravastatin Sodium (Pravastatin Sodium) 20 Mg Tab, 20 MG PO DAILY, (Reported) Pregabalin (Lyrica) 100 Mg Cap, 100 MG PO TID, (Reported) Ranitidine HCl (Ranitidine HCl) 300 Mg Tab, 1 TAB PO BID, (Reported) Ropinirole HCl (Ropinirole HCl) 1 Mg Tab, 1 MG PO BID, (Reported) TAKES AT 1600 AND QHS Trazodone HCl (Trazodone HCl) 100 Mg Tablet, 100 MG PO QHS, (Reported) Scheduled PRN Docusate Sodium (Colace) 100 Mg Cap, 100 MG PO DAILY PRN for CONSTIPATION, (Reported) Lidocaine (Lidocaine) 5 % Pad, 3 PATCH TOP DAILY PRN for PAIN, (Reported) USES ON BACK AND NECK Nitroglycerin (Nitroglycerin) 0.4 Mg Sub, 0.4 MG SL NITRO PRN for CHEST PAIN, (Reported) Oxycodone HCl (Oxycodone HCl) 10 Mg Tablet, 10 MG PO Q6H PRN for PAIN, (Reported) Polyethylene Glycol 3350 (Miralax) 119 Gm Powder, 17 GM PO DAILY PRN for CONSTIPATION, (Reported) ANNETTA LANDON MD December 26, 2018 17:01
[2018-12-26] MEDS: PANTOPRAZOLE 40MG INJ (PROTONIX) (C9113) IV SCH (17:56)
[2018-12-26] MEDS: LIDOCAINE 5% (LIDODERM) PATCH TD SCH (18:47)
--- NOTE | 2018-12-26 19:27 | ECGEPIP ---
Stationary ECG Study [facility] - ED Test Date: 2018-12-26 Pat Name: JESSICA MITCHELL Department: Room: - Gender: F Front Desk Coordinator: TC : 1945 Requested By: Nathaly Mims Order Number: [id number] Reading MD: Titus Lau Measurements Intervals [place] Rate: 67 P: 78 WV: 184 QRS: 52 QRSD: 85 T: 71 QT: 400 QTc: 424 Interpretive Statements SINUS RHYTHM WITH SINUS ARRHYTHMIA Artifact limits study Electronically Signed On 12-26-2018 19:26:50 EDT by Titus Lau
[2018-12-26] MEDS: traZODone 100 MG TAB PO SCH (21:00)
[2018-12-26] MEDS: ASPIRIN 81 MG ENTERIC TAB PO SCH (21:00)
[2018-12-26] MEDS: **NOTE PATIENT COMMENT** MISC XX SCH (21:00)
[2018-12-26 22:00] VITALS: BP 125/60
[2018-12-27] VITALS (7 sets, daily range): BP systolic 115–133; BP diastolic 44–60
[2018-12-27] MEDS: MORPHINE 4 MG/ML 1ML VIAL/SYRINGE (J2270) IV PRN ×2 (01:26→04:52)
[2018-12-27] MEDS ORDERED: DOCUSATE SODIUM 100 MG CAP PO PRN (04:30)
[2018-12-27] MEDS ORDERED: MIRALAX *UNIT DOSE* 17GM PACKET PO PRN (04:30)
[2018-12-27] MEDS: D5W/LR 1,000 ML IV SCH ×3 (06:07→21:33)
[2018-12-27 06:42] LABS: HEMATOCRIT 30.3 % (36.0-47.0); HEMOGLOBIN 9.7 g/dl (12.0-15.5); MEAN CORPUSCULAR HEMOGLOBIN 30.2 pg (27.0-33.0); MEAN CORPUSCULAR VOLUME 94.4 fl (80.0-96.0); PLATELET COUNT, AUTOMATED 134 10^3/uL (150-450); RED BLOOD COUNT 3.21 10^6/uL (4.00-5.40); WHITE BLOOD COUNT 5.3 10^3/uL (4.0-10.0)
[2018-12-27 06:59] LABS: CALCIUM LEVEL 8.2 MG/DL (8.8-10.2); CREATININE FOR GFR 1.57 MG/DL (0.55-1.30); GLOMERULAR FILTRATION RATE 34.3 (>39); POTASSIUM SERUM 4.1 MEQ/L (3.5-5.1)
[2018-12-27] MEDS ORDERED: NS 1,000 ML IV SCH (08:12)
[2018-12-27] MEDS ORDERED: diphenhydrAMINE INJ 50MG/ML VIAL (J1200) IV PRN (08:15)
[2018-12-27] MEDS ORDERED: ONDANSETRON 4MG/2ML VIAL (J2405) IV PRN (08:15)
[2018-12-27] MEDS ORDERED: EPIDURAL/PCA KEYS XX PRN (08:15)
[2018-12-27] MEDS ORDERED: NALBUPHINE HCL 10 MG/ML AMP (J2300) IV PRN (08:15)
[2018-12-27] MEDS ORDERED: NALOXONE INJ 0.4 MG/1 ML VIAL (J2310) IV PRN (08:15)
[2018-12-27] MEDS ORDERED: MORPHINE 1MG/ML IN 0.9% NACL 100ML IV BAG IV PRN (08:15)
[2018-12-27] MEDS: LEVOTHYROXINE 100 MCG (0.1MG) VIAL IV SCH (08:36)
[2018-12-27] MEDS: PREGABALIN 100 MG CAP (LYRICA) PO SCH ×3 (08:37→22:31)
[2018-12-27] MEDS: FERROUS SULFATE 325MG TAB PO SCH (08:37)
[2018-12-27] MEDS: PRAVASTATIN 20 MG TAB PO SCH (08:37)
[2018-12-27] MEDS: PANTOPRAZOLE 40MG INJ (PROTONIX) (C9113) IV SCH (08:37)
[2018-12-27] MEDS: CYANOCOBALAMIN 500 MCG TAB PO SCH (08:37)
[2018-12-27] MEDS: METAXALONE 800 MG TABLET PO SCH ×3 (08:42→22:31)
[2018-12-27] MEDS: amLODIPine 5 MG TAB PO SCH (08:42)
[2018-12-27] MEDS: LIDOCAINE 5% (LIDODERM) PATCH TD SCH (08:43)
--- NOTE | 2018-12-27 09:24 | IPN ---
DATE: 12/27/2018 Patient overall last night has had some moderate amount of NG tube output. She still complains of pain, although she states that she is normally on some MS Contin as well as other additional narcotics and has not had any stool via the colostomy, but states that her abdominal distention has improved. Her vitals have been stable overnight and her NG tube has been 500 yesterday, but there is already a fair bit in the NG canister and probably 500 bilious drainage at this time. On her physical examination her abdomen is much less distended compared to yesterday and significantly improved from that standpoint. Overall she was relatively tender to mild palpation, but I do feel that her discomfort seems much better today than it was yesterday and her tenderness improved. She still has some discomfort and tenderness in the left lower quadrant, but this area seems less distended as well and overall clinically without the exam which may be hard to assess given her narcotic use and lack of narcotics or the decreased amount overnight may be difficulty to assess at this point whether this plays into the equation thus I am appreciating that her white count is still down this morning and she has been afebrile. We will get followup x-rays to take a look at this area as well and see if her bowel obstruction appears to be resolving as I anticipate we should seen on her x-rays.
--- NOTE | 2018-12-27 10:21 | HPE ---
DATE OF ADMISSION: 12/26/2018 BRIEF HISTORY OF PRESENT ILLNESS: The patient is a 73-year-old with multiple medical issues with previous colectomy and colostomy and urologic procedures ending in a nephrostomy tube and ileoconduit with a urostomy itself. Overall developed abdominal pain 12-18 hours prior to admission, noticed that she had decreasing stool output with increasing abdominal distension. She has had small bowel obstructions in the past very similar to this and she noticed some nausea without vomiting, and some crampy abdominal pain. She ended up having a small amount of loose stool via the ostomy, but did not have any bloody stool, states that the pain has been moderately severe. She has had no fevers or chills. No recent GI distress, although she has had some problems with constipation that have been an ongoing issue given that she is on chronic pain medications. PAST MEDICAL HISTORY: Is significant for: History of neuropathy. Hypothyroidism. Hypertension. Restless leg syndrome. Acid reflux. Fibromyalgia. Obstructive sleep apnea. Colectomy and colostomy. Cystocele. Rectocele repair. Uterine prolapse. Urinary tract infections with a cystectomy and ileoconduit. Hysterectomy. Appendectomy. Cholecystectomy. PHYSICAL EXAMINATION: Physical exam reveals a 73-year-old who looks older than stated age. HEENT is unremarkable. Neck: Supple without adenopathy. Lungs are clear to auscultation without crackles, wheezes or rhonchi. Heart is regular. Abdomen is as distended, mildly tympanitic throughout without significant guarding or rebound, but she is mildly tender throughout, on the left side more so in the left lower quadrant just inferior to the ostomy itself. Ostomy is not putting out any fluid at this time. Urine is coming out the ileoconduit. Her white count is normal. She has been afebrile. IMPRESSION AND PLAN: The patient has evidence of probable small bowel obstruction although ileus is another possibility for her. Given her narcotic use, it is significantly high this may be narcotic associated constipation with some proximal obstruction, although I do feel that this is less likely the etiology. Given her abdominal discomfort, pain and distension my recommendation is that we have her have an NG tube placed to low intermittent suction and get some follow-up labs in the morning and follow-up x-rays and will see how she has made some with the progress. At this point, I do not see need for an emergent intervention, although she has obvious bowel distension at this time. We have ordered some intermittent low dose pain medication and I have asked medicine to see her for multiple medical issues and assistance with those. I will see how she is doing the morning with follow-up x-rays, labs, etc.
--- NOTE | 2018-12-27 10:26 | REP ---
Abdomen series: Four views. History: Small bowel obstruction. Comparison study: April 01, 2018. Findings: Upright chest radiograph demonstrates a nasogastric tube in place. Its tip terminates in the gastric fundus. The side-hole of the NG tube is in the distal esophagus. The lungs are symmetrically aerated and free of infiltrate. There is no evidence of free subdiaphragmatic air. Heart is mildly enlarged unchanged. Supine and erect views of the abdomen demonstrate scattered surgical clips and sutures in the right and left abdomen and pelvis. There is a pigtail drainage catheter looped in the pelvis terminating over the left psoas muscle which may be a urinary drainage stent. This is seen on yesterday's CT study to be in the renal pelvis on the left side. Post lumbar laminectomy changes are noted. No small or large bowel dilation is appreciated radiographically. There is a left lower quadrant enterostomy ring. Flank stripes are intact. Impression: NG tube at the gastric fundus. No large or small bowel dilation is visible radiographically. There is no evidence of free air. Electronically Signed by Jose Enrique Booker MD 12/27/2018 03:40 P
[2018-12-27] MEDS ORDERED: DOCUSATE SOD LIQ 100MG/10ML UDC PO ONE (14:00)
--- NOTE | 2018-12-27 14:44 | IPNPDOC ---
Date Seen The patient was seen on 12/27/18. Progress Note SUBJECTIVE: Patient is unable to sleep last night comfortably but hoping she'll be able to do so today. She had significant output from the NG overnight. Surgeries following patient. No immediate plan for surgery. Encourage oxygen nc while sleeping. Renal US for ARF. OBJECTIVE VITAL SIGNS: Please see below GENERAL APPEARANCE: Resting comfortably HEENT: Normocephalic, PERRLA, NG tube in place CARDIOVASCULAR: S1,S2, pulse present, regularly, regular LUNGS: Equal air entry b/l, no wheezes or crackle ABDOMEN: Soft, minimal bowel sound, colostomy bag in place EXTREMITIES: B/L no edema, capillary refill present SKIN: Warm, No fever NEUROLOGICAL: Cranial nerves grossly intact PSYCHIATRIC: Normal mood and affect for current situation LABORATORY DATA, IMAGING STUDIES, MICROBIOLOGY: Please see below. 73-year-old female with neuropathy,hypothyroidism, hypertension, restless leg syndrome, acid reflux, fibromyalgia, obstructive sleep apnea, suppose to be on bilevel positive airway pressure (BiPAP) at night but noncompliant, coronary artery disease and had multiple abdominal surgeries for small bowel obstruction, which eventually ended in partial colectomy with a colostomy bag came to ER for abdominal pain found to have SBO. Abdominal from SBO, Nausea -CT abdomen: There is evidence of small bowel obstruction in the left lower quadrant with a transition zone noted in the small bowel at that location. No free air or significant free fluid. Old postsurgical changes -Abdomen xray:NG tube at the gastric fundus. No large or small bowel dilation is visible radiographically. There is no evidence of free air. -As per surgery Dr. Navarro -NPO, NGT, IVF, pain management, defer bowel moving regimen -No abx for now as only leukocytosis but no nitrate in UA, no fever, and clinically denied of dysuria. Urine culture pending ARF, suspect pre-renal -hold lisinopril -ivf as sx -renal us -renal consult prn Diabetes -FS monitoring, hypoglycemia protocol -Hold PO medication -PRN insulin Fibromyalgia. -hold Lyrica. Obstructive sleep apnea. -Non compliant w BIPAP/CPAP -NC oxygen at night Gastroesophageal reflux disease. -IV protonix. Restless leg syndrome -hold ropinirole. Hypertension. -hold amlodipine and lisinorpil -use IV anti-HTN prn Hypothyroidism. -hold po Synthroid -iv synthroid Chronic pain -hold po home med -IV med as per sx -hold BM moving regimen and to sx HLD -hold po Statin Anemia -hold iron supplement Deep vein thrombosis (DVT) prophylaxis asper surgery.. VS, I&O, 24H, Fishbone Vital Signs/I&O Vital Signs Date Time Temp Pulse Resp B/P (MAP) Pulse Ox O2 Delivery O2 Flow Rate FiO2 12/27/18 13:30 98.2 50 18 118/50 (72) 94 12/26/18 16:19 Room Air I&O- Last 24 Hours up to 6 AM 12/27/18 06:00 Intake Total 2141 ml Output Total 2150 ml Balance -9 ml Laboratory Data 24H LABS Laboratory Tests 2 12/26/18 17:02: Bedside Glucose (Misc Panel) 129H 12/27/18 00:22: Bedside Glucose (Misc Panel) 117H 12/27/18 06:08: Nucleated Red Blood Cells % (auto) 0.0, Anion Gap 5L, Glomerular Filtration Rate 34.3L, Blood Urea Nitrogen 26H, Creatinine 1.57H, Sodium Level 144, Potassium Level 4.1, Chloride Level 117H, Carbon Dioxide Level 22, Calcium Level 8.2L 12/27/18 07:47: Bedside Glucose (Misc Panel) 112H 12/27/18 11:38: Bedside Glucose (Misc Panel) 138H CBC/BMP Laboratory Tests 12/27/18 06:08 Red Blood Count 3.21 L, Mean Corpuscular Volume 94.4, Mean Corpuscular Hemoglobin 30.2, Mean Corpuscular Hemoglobin Concent 32.0, Red Cell Distribution Width 14.7 H, Calcium Level 8.2 L Microbiology Microbiology 12/26/18 Blood Culture - Preliminary, Resulted No growth after 24 hours . All specim... 12/26/18 Blood Culture - Preliminary, Resulted No growth after 24 hours . All specim... 12/26/18 Urine Culture, Received Pending ANNETTA LANDON MD December 27, 2018 14:44
[2018-12-27] MEDS: rOPINIRole 1MG TAB PO SCH ×2 (16:26→22:31)
--- NOTE | 2018-12-27 18:06 | REP ---
REASON FOR EXAM: Decreased renal function. COMPARISON: Multiple. Right kidney measures 12.8 x 6.7 x 5.3 cm and the left measures 13.3 x 7.2 x 4.0 cm. The renal cortical echoes are diffusely increased and there is less than optimal cortical medullary differentiation bilaterally. There is cortical thinning bilaterally. There is no hydronephrosis. Seen in the mid polar region of the left kidney there is a 3.1 x 2.2 x 2.3 cm sized mixed echo area structure possibly representing renal lobulation or a potential mass. When compared to the prior exam obtained 09/28/2018 that exam showed a left nephrostomy tube in place. Where as today's exam does not show a left nephrostomy and the finding could be secondary to nephrostomy tube removal. It is doubtful that the finding represents a true mass. IMPRESSION:There is evidence of medical renal disease as described above. Left kidney as described above. The CT examination of the abdomen and pelvis with contrast obtained 12/26/2018 showed no evidence of an enhancing renal mass, however, the left kidney was atrophied showing chronic scarring. Electronically Signed by Luis Lozano DO 12/28/2018 01:11 P
[2018-12-27] MEDS: **NOTE PATIENT COMMENT** MISC XX SCH (21:00)
[2018-12-27] MEDS: traZODone 100 MG TAB PO SCH (22:31)
[2018-12-27] MEDS: ASPIRIN 81 MG ENTERIC TAB PO SCH (22:31)
[2018-12-27] MEDS: DOCUSATE SOD LIQ 100MG/10ML UDC PO SCH (22:31)
[2018-12-28 02:00] VITALS: BP 132/60
[2018-12-28] MEDS: D5W/LR 1,000 ML IV SCH (05:24)
[2018-12-28 06:00] VITALS: BP 140/65
[2018-12-28 06:49] LABS: HEMATOCRIT 30.2 % (36.0-47.0); HEMOGLOBIN 9.5 g/dl (12.0-15.5); MEAN CORPUSCULAR HEMOGLOBIN 30.1 pg (27.0-33.0); MEAN CORPUSCULAR HGB CONC 31.5 g/dl (32.0-36.5); MEAN CORPUSCULAR VOLUME 95.6 fl (80.0-96.0); PLATELET COUNT, AUTOMATED 123 10^3/uL (150-450); RED BLOOD COUNT 3.16 10^6/uL (4.00-5.40); WHITE BLOOD COUNT 5.1 10^3/uL (4.0-10.0)
[2018-12-28 07:03] LABS: CALCIUM LEVEL 8.1 MG/DL (8.8-10.2); CREATININE FOR GFR 1.44 MG/DL (0.55-1.30); GLOMERULAR FILTRATION RATE 37.9 (>39); POTASSIUM SERUM 4.1 MEQ/L (3.5-5.1)
[2018-12-28] MEDS ORDERED: LevoFLOXacin IV 750 MG in APPROPRIATE DILUENT 1 EA IV SCH (09:00)
[2018-12-28 09:53] VITALS: BP 128/94
[2018-12-28] MEDS: CYANOCOBALAMIN 500 MCG TAB PO SCH (10:50)
[2018-12-28] MEDS: PREGABALIN 100 MG CAP (LYRICA) PO SCH ×3 (10:50→20:14)
[2018-12-28] MEDS: amLODIPine 5 MG TAB PO SCH (10:51)
[2018-12-28] MEDS: PRAVASTATIN 20 MG TAB PO SCH (10:51)
[2018-12-28] MEDS: METAXALONE 800 MG TABLET PO SCH ×3 (10:51→20:14)
[2018-12-28] MEDS: PANTOPRAZOLE 40MG INJ (PROTONIX) (C9113) IV SCH (10:52)
[2018-12-28] MEDS: LEVOTHYROXINE 100 MCG (0.1MG) VIAL IV SCH (10:52)
[2018-12-28] MEDS: LIDOCAINE 5% (LIDODERM) PATCH TD SCH (10:53)
[2018-12-28] MEDS: DOCUSATE SOD LIQ 100MG/10ML UDC PO SCH ×2 (10:54→20:16)
[2018-12-28] MEDS: FERROUS SULFATE 325MG TAB PO SCH (10:55)
--- NOTE | 2018-12-28 11:09 | REP ---
Abdomen series: Four views. History: Small bowel obstruction, resolved. Comparison study: December 27, 2018. Findings: Upright chest radiograph shows a nasogastric tube entering the left upper quadrant. The lungs are well inflated and clear. There is a dextroconvex thoracic curve along with degenerative changes. Heart is not enlarged. Supine and erect views of the abdomen demonstrate the NG tube terminating in the upper stomach. A pigtailed left ureteral stent is noted in place. There are clips in right upper quadrant. The bowel gas pattern shows no observable large or r small bowel dilation. A right lower quadrant enterostomy ring is visible. There are sutures in the pelvis. Impression: No dilated bowel loops are visible. Electronically Signed by Jose Enrique Booker MD 12/28/2018 01:06 P
[2018-12-28] MEDS: oxyCODONE 5MG TAB PO PRN ×2 (13:11→20:15)
[2018-12-28] MEDS ORDERED: GASTROGRAFIN SOLUTION 30ML (Q9963) As Ordered ONE (13:37)
--- NOTE | 2018-12-28 15:01 | IPNPDOC ---
Date Seen The patient was seen on 12/28/18. Progress Note SUBJECTIVE: Patient without any acute distress. Patient is starting to have some small amount of stool in her colostomy bag. Patient states that she most likely has a UTI. Her urine culture did return Escherichia coli and Proteus. Patient states due to the proximity of her colostomy bag to her urostomy bag patient is at high risk for UTIs. Patient was started on Levaquin according to sensitivity. Otherwise patient without complaints. Further recommendation by surgery appreciated. OBJECTIVE VITAL SIGNS: Please see below GENERAL APPEARANCE: Resting comfortably HEENT: Normocephalic, PERRLA, NG tube in place CARDIOVASCULAR: S1,S2, pulse present, regularly, regular LUNGS: Equal air entry b/l, no wheezes or crackle ABDOMEN: Soft, minimal bowel sound, colostomy bag in place, Urostomy EXTREMITIES: B/L no edema, capillary refill present SKIN: Warm, No fever NEUROLOGICAL: Cranial nerves grossly intact PSYCHIATRIC: Normal mood and affect for current situation LABORATORY DATA, IMAGING STUDIES, MICROBIOLOGY: Please see below. 73-year-old female with neuropathy,hypothyroidism, hypertension, restless leg syndrome, acid reflux, fibromyalgia, obstructive sleep apnea, suppose to be on bilevel positive airway pressure (BiPAP) at night but noncompliant, coronary artery disease and had multiple abdominal surgeries for small bowel obstruction, which eventually ended in partial colectomy with a colostomy bag came to ER for abdominal pain found to have SBO. Patient found to have UTI with Escherichia coli and Proteus sensitive to Levaquin. Abdominal from SBO, Nausea -CT abdomen: There is evidence of small bowel obstruction in the left lower quadrant with a transition zone noted in the small bowel at that location. No free air or significant free fluid. Old postsurgical changes -Abdomen xray:NG tube at the gastric fundus. No large or small bowel dilation is visible radiographically. There is no evidence of free air. -As per surgery Dr. Navarro -NPO, NGT, IVF, pain management, defer bowel moving regimen -Urine culture positive for Escherichia coli (ESBL) and Proteus penneri sensitive to Levaquin. Patient initiated on Levaquin. ARF, suspect pre-renal -hold lisinopril -ivf as sx -renal us:There is evidence of medical renal disease as described above. Left kidney as described above. The CT examination of the abdomen and pelvis with contrast obtained 12/26/2018 showed no evidence of an enhancing renal mass, however, the left kidney was atrophied showing chronic scarring. -renal consult prn Diabetes -FS monitoring, hypoglycemia protocol -Hold PO medication -PRN insulin Fibromyalgia. -Lyrica. Obstructive sleep apnea. -Non compliant w BIPAP/CPAP -NC oxygen at night Gastroesophageal reflux disease. -IV protonix. Restless leg syndrome -ropinirole. Hypertension. -hold lisinorpil -amlodipine Hypothyroidism. -po Synthroid Chronic pain -po home med -IV med as per sx HLD -Statin Anemia -iron supplement Deep vein thrombosis (DVT) prophylaxis asper surgery. VS, I&O, 24H, Fishbone Vital Signs/I&O Vital Signs Date Time Temp Pulse Resp B/P (MAP) Pulse Ox O2 Delivery O2 Flow Rate FiO2 12/28/18 13:41 18 12/28/18 10:51 77 128/94 12/28/18 09:53 99.3 95 12/26/18 16:19 Room Air I&O- Last 24 Hours up to 6 AM 12/28/18 06:00 Intake Total 0 ml Output Total 1275 ml Balance -1275 ml Laboratory Data 24H LABS Laboratory Tests 2 12/27/18 20:37: Bedside Glucose (Misc Panel) 125H 12/28/18 00:42: Bedside Glucose (Misc Panel) 119H 12/28/18 06:18: Nucleated Red Blood Cells % (auto) 0.0, Anion Gap 8, Glomerular Filtration Rate 37.9L, Blood Urea Nitrogen 21H, Creatinine 1.44H, Sodium Level 146H, Potassium Level 4.1, Chloride Level 113H, Carbon Dioxide Level 25, Calcium Level 8.1L 12/28/18 11:45: Bedside Glucose (Misc Panel) 124H CBC/BMP Laboratory Tests 12/28/18 06:18 Red Blood Count 3.16 L, Mean Corpuscular Volume 95.6, Mean Corpuscular Hemoglobin 30.1, Mean Corpuscular Hemoglobin Concent 31.5 L, Red Cell Distribution Width 14.4, Calcium Level 8.1 L Microbiology Microbiology 12/26/18 Blood Culture - Preliminary, Resulted No Growth after 48 hours. All Specime... 12/26/18 Blood Culture - Preliminary, Resulted No Growth after 48 hours. All Specime... 12/26/18 Urine Culture - Preliminary, Resulted E.coli Esbl Proteus ANNETTA Butts MD December 28, 2018 15:01
[2018-12-28 16:00] VITALS: BP 140/74
[2018-12-28] MEDS: rOPINIRole 1MG TAB PO SCH ×2 (16:42→20:14)
[2018-12-28] MEDS: ASPIRIN 81 MG ENTERIC TAB PO SCH (20:14)
[2018-12-28] MEDS: traZODone 100 MG TAB PO SCH (20:14)
[2018-12-28] MEDS: **NOTE PATIENT COMMENT** MISC XX SCH (20:15)
[2018-12-28 22:00] VITALS: BP 136/70
[2018-12-29 02:00] VITALS: BP 138/68
[2018-12-29] MEDS: oxyCODONE 5MG TAB PO PRN (05:12)
[2018-12-29 06:00] VITALS: BP 128/76
[2018-12-29] MEDS ORDERED: LEVOTHYROXINE 50MCG TABLET (0.05MG) PO SCH (06:00)
[2018-12-29 06:11] LABS: HEMATOCRIT 29.4 % (36.0-47.0); HEMOGLOBIN 9.6 g/dl (12.0-15.5); MEAN CORPUSCULAR HEMOGLOBIN 30.8 pg (27.0-33.0); MEAN CORPUSCULAR HGB CONC 32.7 g/dl (32.0-36.5); MEAN CORPUSCULAR VOLUME 94.2 fl (80.0-96.0); PLATELET COUNT, AUTOMATED 100 10^3/uL (150-450); RED BLOOD COUNT 3.12 10^6/uL (4.00-5.40); WHITE BLOOD COUNT 4.6 10^3/uL (4.0-10.0)
[2018-12-29 06:41] LABS: CALCIUM LEVEL 8.8 MG/DL (8.8-10.2); CREATININE FOR GFR 1.26 MG/DL (0.55-1.30); GLOMERULAR FILTRATION RATE 44.2 (>39); POTASSIUM SERUM 4.7 MEQ/L (3.5-5.1)
--- NOTE | 2018-12-29 08:09 | REP ---
Upper GI Air Contrast with SBFT The procedure was performed by KEARA Amaya, under the direct supervision of Dr. Booker. The images were reviewed with Dr. Booker. A 50/50 mixture containing a 300 ml of gastrograph and 300 ml of water was injected via NG tube directly into the patient's stomach. The stomach kennedy are normally outlined. The rugal folds are smooth and regular. There is no gastritis, neoplasm, ulcer disease noted. The duodenal kennedy are normally outlined. The mucosal folds are smooth and regular. There is no duodenitis, peptic ulcer disease, or neoplasm noted. The visualized portion of the proximal small bowel appears normal in course and caliber. The barium column was followed through the small bowel, ascending and transverse colon to the colostomy bag. There are no fixed or angulated loops. The small bowel mucosal pattern is normal in course and caliber. There is no transition to set suggest a partial small-bowel obstruction. No evidence of extravasation visualized throughout the course of the exam. Impression; No small bowel obstruction or extravasation of contrast. 0.4 minutes of fluoroscopy time was utilized for this procedure. Reviewed by KEARA Tovar 12/28/2018 06:08 P Electronically Signed by Jose Enrique Booker MD 12/29/2018 08:00 A
[2018-12-29 08:25] VITALS: BP 142/62
[2018-12-29] MEDS: DOCUSATE SOD LIQ 100MG/10ML UDC PO SCH (09:00)
[2018-12-29 09:25] VITALS: BP 142/62
[2018-12-29] MEDS: CYANOCOBALAMIN 500 MCG TAB PO SCH (09:25)
[2018-12-29] MEDS: amLODIPine 5 MG TAB PO SCH (09:25)
[2018-12-29] MEDS: PREGABALIN 100 MG CAP (LYRICA) PO SCH (09:25)
[2018-12-29] MEDS: LIDOCAINE 5% (LIDODERM) PATCH TD SCH (09:26)
[2018-12-29] MEDS: METAXALONE 800 MG TABLET PO SCH (09:26)
[2018-12-29] MEDS: PRAVASTATIN 20 MG TAB PO SCH (09:26)
[2018-12-29] MEDS: FERROUS SULFATE 325MG TAB PO SCH (09:26)
[2018-12-29] MEDS: PANTOPRAZOLE 40MG INJ (PROTONIX) (C9113) IV SCH (09:27)
[2018-12-29] MEDS ORDERED: LEVA750T7 PO (10:27)
--- NOTE | 2018-12-29 10:39 | IPNPDOC ---
Date Seen The patient was seen on 12/29/18. Progress Note SUBJECTIVE: Patient without acute complaint today. Patient without NG tube and is planned for discharge today by surgery. We'll provide a prescription for Levaquin to treat her UTI. Escherichia coli, Proteus and enterococcus are sensitive to Levaquin. Prescription will be renally dosed for 7 days. OBJECTIVE VITAL SIGNS: Please see below GENERAL APPEARANCE: Resting comfortably HEENT: Normocephalic, PERRLA CARDIOVASCULAR: S1,S2, pulse present, regularly, regular LUNGS: Equal air entry b/l, no wheezes or crackle ABDOMEN: Soft, bowel sound, colostomy bag in place, Urostomy bag in place EXTREMITIES: B/L no edema, capillary refill present SKIN: Warm, No fever NEUROLOGICAL: Cranial nerves grossly intact PSYCHIATRIC: Normal mood and affect for current situation LABORATORY DATA, IMAGING STUDIES, MICROBIOLOGY: Please see below. 73-year-old female with neuropathy,hypothyroidism, hypertension, restless leg syndrome, acid reflux, fibromyalgia, obstructive sleep apnea, suppose to be on bilevel positive airway pressure (BiPAP) at night but noncompliant, coronary artery disease and had multiple abdominal surgeries for small bowel obstruction, which eventually ended in partial colectomy with a colostomy bag came to ER for abdominal pain found to have SBO. Patient was treated for UTI with Levaquin. We'll provide a prescription for Levaquin to treat her UTI. Escherichia coli, Proteus and enterococcus are sensitive to Levaquin. Prescription will be renally dosed for 7 days. Patient planned for discharge by surgery today. Please follow up with PCP within one week and Dr. Styles as outpatient as he recommended. Please follow up with PCP regarding compliance to CPAP at home. Strongly e ncouraged compliance to CPAP at home. Abdominal from SBO, Nausea -CT abdomen: There is evidence of small bowel obstruction in the left lower quadrant with a transition zone noted in the small bowel at that location. No free air or significant free fluid. Old postsurgical changes -Abdomen xray:NG tube at the gastric fundus. No large or small bowel dilation is visible radiographically. There is no evidence of free air. -repeat abd xary:No small bowel obstruction or extravasation of contrast. 0.4 minutes of fluoroscopy time was utilized for this procedure. -As per surgery Dr. Navarro -s/p NPO, NGT, IVF, pain management, defer bowel moving regimen UTI -Urine culture positive for Escherichia coli (ESBL) , Proteus penneri, enterococcus gallinarum sensitive to Levaquin. Patient initiated on Levaquin. -We'll provide a prescription for Levaquin to treat her UTI. Escherichia coli, Proteus and enterococcus are sensitive to Levaquin. Prescription will be renally dosed for 7 days. Please follow up with PCP as outpatient. ARF, suspect pre-renal, improved -Held lisinopril but may resume at home his renal function improved -Status post IV fluid -renal us:There is evidence of medical renal disease as described above. Left kidney as described above. The CT examination of the abdomen and pelvis with contrast obtained 12/26/2018 showed no evidence of an enhancing renal mass, however, the left kidney was atrophied showing chronic scarring. Diabetes -FS monitoring, hypoglycemia protocol -Initially held PO medication -PRN insulin Fibromyalgia. -Lyrica. Obstructive sleep apnea. -Non compliant w BIPAP/CPAP, strongly encouraged compliance at home. Please follow up with PCP. -NC oxygen at night Gastroesophageal reflux disease. -Status post IV protonix. Restless leg syndrome -ropinirole. Hypertension. -Initially held lisinorpil -amlodipine Hypothyroidism. -po Synthroid Chronic pain -po home med -Status post IV med as per sx HLD -Statin Anemia -iron supplement Deep vein thrombosis (DVT) prophylaxis asper surgery. VS, I&O, 24H, Fishbone Vital Signs/I&O Vital Signs Date Time Temp Pulse Resp B/P (MAP) Pulse Ox O2 Delivery O2 Flow Rate FiO2 12/29/18 09:25 64 142/62 12/29/18 08:25 97.8 18 96 12/26/18 16:19 Room Air I&O- Last 24 Hours up to 6 AM0 12/29/18 06:00 Intake Total 1580 ml Output Total 2226 ml Balance -646 ml Laboratory Data 24H LABS Laboratory Tests 2 12/28/18 11:45: Bedside Glucose (Misc Panel) 124H 12/28/18 17:38: Bedside Glucose (Misc Panel) 152H 12/28/18 20:14: Bedside Glucose (Misc Panel) 147H 12/29/18 05:47: Nucleated Red Blood Cells % (auto) 0.0, Anion Gap 5L, Glomerular Filtration Rate 44.2, Blood Urea Nitrogen 16, Creatinine 1.26, Sodium Level 147H, Potassium Level 4.7, Chloride Level 115H, Carbon Dioxide Level 27, Calcium Level 8.8 CBC/BMP Laboratory Tests 12/29/18 05:47 Red Blood Count 3.12 L, Mean Corpuscular Volume 94.2, Mean Corpuscular Hemoglobin 30.8, Mean Corpuscular Hemoglobin Concent 32.7, Red Cell Distribution Width 14.5, Calcium Level 8.8 Microbiology Microbiology 12/26/18 Blood Culture - Preliminary, Resulted No Growth after 72 hours. All specime... 12/26/18 Blood Culture - Preliminary, Resulted No Growth after 72 hours. All specime... 12/26/18 Urine Culture - Final, Complete E.coli Esbl Proteus Penneri Enterococcus Gallinarum ANNETTA LANDON MD December 29, 2018 10:39
[2018-12-30] MEDS ORDERED: LevoFLOXacin 750 MG TABLET PO SCH (06:00)
== END 2018-12-29 12:15 | disposition home or self-care (01) | DRG 389 ==
LOC: EDBD 08:15 → M ED 08:15 → M ED INP 13:48 → M MS5PR 16:31
PROVIDERS: ADMIT Surgery; ATTEND Surgery
DX: K56.609 Unspecified intestinal obstruction, unspecified as to partial versus complete obstruction (principal); N17.9 Acute kidney failure, unspecified; N39.0 Urinary tract infection, site not specified; E03.9 Hypothyroidism, unspecified; M79.7 Fibromyalgia; G47.33 Obstructive sleep apnea (adult) (pediatric); G25.81 Restless legs syndrome; K21.9 Gastro-esophageal reflux disease without esophagitis; I10 Essential (primary) hypertension; Z91.19 Patient's noncompliance with other medical treatment and regimen; Z93.3 Colostomy status; Z79.899 Other long term (current) drug therapy; Z79.82 Long term (current) use of aspirin; E11.40 Type 2 diabetes mellitus with diabetic neuropathy, unspecified; G89.29 Other chronic pain

== ENCOUNTER 2019-02-14 07:16 | Outpatient (RCR) | payer MEDICARE, BC ==
[~2019-02-14 07:16] MED LIST changes: +AMLO5TAB6 PO; +LEVA750T7 PO; +TRAZ-163 PO
== END 2019-02-18 ==
LOC: M PT 07:16
PROVIDERS: ATTEND Physical Medicine & Rehabilitation
DX: M47.23 Other spondylosis with radiculopathy, cervicothoracic region (principal); M50.11 Cervical disc disorder with radiculopathy, high cervical region; M50.020 Cervical disc disorder with myelopathy, mid-cervical region, unspecified level; M50.13 Cervical disc disorder with radiculopathy, cervicothoracic region

== ENCOUNTER 2019-03-02 19:50 | Emergency (ER) | payer MEDICARE, BC ==
[~2019-03-02 19:50] MED LIST changes: +CYAN100049 PO; -DULO1CAP2 PO; +DULO1CAP5 PO; -VITA10002 PO
[2019-03-02] MEDS ORDERED: LEVO50TA5 PO (20:02)
[2019-03-02] MEDS ORDERED: MAGN400C PO (20:02)
[2019-03-02] MEDS ORDERED: TRAZ-189 (20:02)
[2019-03-02 20:31] LABS: BASO % 0.3 % (0.0-1.0); EOS # 0.1 10^3/uL (0.0-0.50); EOS % 0.8 % (0.0-3.0); HEMATOCRIT 30.9 % (36.0-47.0); HEMOGLOBIN 10.3 g/dl (12.0-15.5); LYMPH # 0.8 10^3/uL (1.5-4.5); LYMPH % 10.6 % (24.0-44.0); MEAN CORPUSCULAR HEMOGLOBIN 30.7 pg (27.0-33.0); MEAN CORPUSCULAR HGB CONC 33.3 g/dl (32.0-36.5); MEAN CORPUSCULAR VOLUME 92.2 fl (80.0-96.0); MONO # 0.7 10^3/uL (0.0-0.8); MONO % 9.3 % (0.0-5.0); NEUTROPHILS # 5.7 10^3/uL (1.8-7.7); NEUTROPHILS % 78.6 % (36.0-66.0); PLATELET COUNT, AUTOMATED 144 10^3/uL (150-450); RED BLOOD COUNT 3.35 10^6/uL (4.00-5.40); WHITE BLOOD COUNT 7.3 10^3/uL (4.0-10.0)
[2019-03-02 20:59] LABS: ALBUMIN 3.2 GM/DL (3.2-5.2); BILIRUBIN,DIRECT 0.1 MG/DL (0.0-0.2); BILIRUBIN,TOTAL 0.3 MG/DL (0.2-1.0); CALCIUM LEVEL 8.1 MG/DL (8.8-10.2); CREATININE FOR GFR 1.73 MG/DL (0.55-1.30); GLOMERULAR FILTRATION RATE 30.7 (>39); POTASSIUM SERUM 4.3 MEQ/L (3.5-5.1); TOTAL PROTEIN 6.8 GM/DL (6.4-8.2)
[2019-03-02] MEDS ORDERED: NS 1,000 ML IV ONE (21:00)
[2019-03-02] MEDS ORDERED: ACETAMINOPHEN TAB 650MG DOSE (2X325MG) PO ONE (21:00)
[2019-03-02] MEDS: HYDROMORPHONE HCL 0.5 MG/ 0.5 ML SYRINGE (J1170 PER 1) IV PRN ×2 (22:07→23:08)
--- NOTE | 2019-03-02 23:13 | REPVR ---
EXAM: CT Abdomen and Pelvis Without Contrast EXAM DATE/TIME: 03/02/2019 10:23 PM CLINICAL HISTORY: 73 years old, female; Abdominal pain; Generalized TECHNIQUE: Imaging protocol: Axial computed tomography images of the abdomen and pelvis without contrast. Coronal and sagittal reformatted images were created and reviewed. Radiation optimization: All CT scans at this facility use at least one of these dose optimization techniques: automated exposure control; mA and/or kV adjustment per patient size (includes targeted exams where dose is matched to clinical indication); or iterative reconstruction. COMPARISON: CT ABD PELVIS W/O CONTRAST 08/08/2018 12:48 PM FINDINGS: Liver: Normal. No mass. Gallbladder and bile ducts: There has been a cholecystectomy. Pancreas: There is diffuse pancreatic atrophy. Spleen: Normal. No splenomegaly. Adrenals: Stable right adrenal lipoma or myelolipoma. Kidneys and ureters: Pigtail stent catheter is demonstrated in the proximal left ureter extending into an ileostomy in the right lower quadrant and exiting the right lower bowel wall. Finding is stable in comparison to prior studies. There is mild to moderate right hydroureteronephrosis and marked left hydroureteronephrosis the level of the pigtail stent catheter. Stomach and bowel: Colostomy demonstrated in the left side of the abdomen. Multiple bowel sutures demonstrated. Rectum terminates in the Ronak pouch. Proximally the colon was distended with feces. Appendix: No evidence of appendicitis. Intraperitoneal space: Normal. No free air. No significant fluid collection. Vasculature: Normal. No abdominal aortic aneurysm. Lymph nodes: Normal. No enlarged lymph nodes. Bladder: Unremarkable as visualized. Reproductive: There has been a hysterectomy. Bones/joints: The spine demonstrates moderate degenerative changes. Moderate central spinal stenosis L3-4 and L4-5. Loss of disc space at L4-5. Clinical correlation to exclude changes related to infectious discitis suggested. Soft tissues: Unremarkable. Other findings: Osteoporosis. IMPRESSION: 1. Loss of disc space at L4-5. Clinical correlation to exclude changes related to infectious discitis suggested. However, findings stable since available images from 2018. 2. There has been a cholecystectomy. 3. There is diffuse pancreatic atrophy. 4. Pigtail stent catheter is demonstrated in the proximal left ureter extending into an ileostomy in the right lower quadrant and exiting the right lower bowel wall. Finding is stable in comparison to prior studies. 5. There is mild to moderate right hydroureteronephrosis and marked left hydroureteronephrosis the level of the pigtail stent catheter. 6. There has been a hysterectomy. Electronically signed by: Mau Arellano On 03/02/2019 23:12:50 PM
[2019-03-02] MEDS ORDERED: PIPERACILLIN/TAZOBACTAM SOD 3.375 GM in D5W MINI-BAG PLUS 50 ML IV ONE (23:30)
[2019-03-03] MEDS ORDERED: LINEZOLID 600 MG in APPROPRIATE DILUENT 1 EA IV ONE (00:15)
[2019-03-03] MEDS ORDERED: HYDROMORPHONE HCL 0.5 MG/ 0.5 ML SYRINGE (J1170 PER 1) IV ONE (00:45)
[2019-03-03 01:04] VITALS: BP 133/95
== END 2019-03-03 01:08 | disposition short-term general hospital (02) ==
LOC: M ED 19:50
DX: N13.30 Unspecified hydronephrosis (principal); N17.9 Acute kidney failure, unspecified; I10 Essential (primary) hypertension; E03.9 Hypothyroidism, unspecified; I25.10 Atherosclerotic heart disease of native coronary artery without angina pectoris; G47.33 Obstructive sleep apnea (adult) (pediatric); M79.7 Fibromyalgia; Z79.899 Other long term (current) drug therapy; Z79.890 Hormone replacement therapy; Z79.82 Long term (current) use of aspirin; Z88.5 Allergy status to narcotic agent; Z88.7 Allergy status to serum and vaccine; Z88.8 Allergy status to other drugs, medicaments and biological substances; Z91.048 Other nonmedicinal substance allergy status
CPT/HCPCS: 74176; 80048; 80076; 81001; 83605; 83690; 85025; 87040; 87088; 87186; 96365; 96375; 96376; 99285; J1170; J2020; J2543

== ENCOUNTER 2019-04-06 00:28 | Inpatient (IN) | payer MEDICARE, BC ==
[~2019-04-06] VITALS: Ht 162.6 cm; Wt 75.0 kg
[~2019-04-06 00:28] MED LIST changes: +MAGN400C PO; +TRAZ-189
[2019-04-06 01:16] LABS: BASO % 0.1 % (0.0-1.0); HEMATOCRIT 27.8 % (36.0-47.0); HEMOGLOBIN 9.1 g/dl (12.0-15.5); LYMPH # 0.8 10^3/uL (1.5-4.5); LYMPH % 9.2 % (24.0-44.0); MEAN CORPUSCULAR HEMOGLOBIN 29.9 pg (27.0-33.0); MEAN CORPUSCULAR HGB CONC 32.7 g/dl (32.0-36.5); MEAN CORPUSCULAR VOLUME 91.4 fl (80.0-96.0); MONO # 0.8 10^3/uL (0.0-0.8); MONO % 9.1 % (0.0-5.0); NEUTROPHILS # 7.4 10^3/uL (1.8-7.7); NEUTROPHILS % 81.3 % (36.0-66.0); PLATELET COUNT, AUTOMATED 158 10^3/uL (150-450); RED BLOOD COUNT 3.04 10^6/uL (4.00-5.40); WHITE BLOOD COUNT 9.1 10^3/uL (4.0-10.0)
[2019-04-06 01:39] LABS: BILIRUBIN,DIRECT 0.2 MG/DL (0.0-0.2); BILIRUBIN,TOTAL 0.4 MG/DL (0.2-1.0); TOTAL PROTEIN 6.6 GM/DL (6.4-8.2)
[2019-04-06] MEDS ORDERED: ONDANSETRON 4MG/2ML VIAL (J2405) IV ONE (01:45)
[2019-04-06] MEDS: MORPHINE 4 MG/ML 1ML VIAL/SYRINGE (J2270) IV PRN ×2 (01:55→02:26)
[2019-04-06] MEDS ORDERED: ACETAMINOPHEN TAB 650MG DOSE (2X325MG) PO ONE (02:00)
[2019-04-06] MEDS ORDERED: NS 1,000 ML IV ONE (02:00)
[2019-04-06] MEDS ORDERED: HYDROMORPHONE HCL 0.5 MG/ 0.5 ML SYRINGE (J1170 PER 1) As Ordered ONE (04:14)
--- NOTE | 2019-04-06 04:17 | REPVR ---
EXAM: CT Abdomen and Pelvis Without Contrast EXAM DATE/TIME: 04/06/2019 2:08 AM CLINICAL HISTORY: 74 years old, female; Abdominal pain; Generalized; Additional info: N/v, abd pain, ckd TECHNIQUE: Imaging protocol: Axial computed tomography images of the abdomen and pelvis without contrast. Coronal and sagittal reformatted images were created and reviewed. Radiation optimization: All CT scans at this facility use at least one of these dose optimization techniques: automated exposure control; mA and/or kV adjustment per patient size (includes targeted exams where dose is matched to clinical indication); or iterative reconstruction. COMPARISON: CT ABD PELVIS W/O CONTRAST 03/02/2019 10:22 PM FINDINGS: Tubes, catheters and devices: There is a left nephroureteral catheter, extending through a urostomy in the right mid abdominal wall. The proximal pigtail is now at the left renal pelvis. Lungs: There is minimal, nonspecific dependent density in the lung bases. Liver: There are no focal liver lesions present. Gallbladder and bile ducts: There has been a cholecystectomy. There is stable, mild biliary ductal dilation. Pancreas: There is diffuse, benign fatty infiltration of the pancreas. Spleen: The spleen is normal. Adrenals: A fat density lesion consistent with an angiomyolipoma is seen in the right adrenal gland, unchanged. Kidneys and ureters: See Tubes, Catheters And Devices Finding. There is moderate to severe left-sided hydroureteronephrosis, slightly increased compared to the prior exam. There is mild to moderate right-sided hydroureteronephrosis, without significant change. There is perinephric stranding, left worse than right which is grossly similar to the prior exam. Stomach and bowel: There is evidence of a distal colon resection with a colostomy in the left mid abdominal wall. Multiple small bowel suture lines are seen.There is no dilation or thickening of the remaining colon but there is relatively high stool burden, slightly more than on the prior exam. Air fluid levels are seen within mildly dilated small bowel loops. A distinct transition point is not seen. The degree of distention is similar to the prior exam. Bowel loops contact the anterior abdominal wall inferiorly Appendix: The appendix is not specifically identified. Intraperitoneal space: There is no evidence of free intraperitoneal or pelvic fluid. There is no free intraperitoneal air. Vasculature: The aorta demonstrates mild atherosclerotic calcification. Lymph nodes: Normal. No enlarged lymph nodes. Bladder: The bladder may be collapsed or has been resected. Reproductive: The uterus is absent. Bones/joints: Degenerative endplate changes are seen at multiple levels in the visualized spine. There is evidence of prior lumbar spine fusion and posterior decompression. Soft tissues: Multiple dystrophic calcifications are seen within the subcutaneous fat of the bilateral buttocks, unchanged. IMPRESSION: 1. Mildly dilated small bowel with air-fluid levels but without a distinct transition point, with a similar degree of distention compared to the prior exam. 2. Bilateral hydroureteronephrosis, leading into a urostomy, with slight increase in degree of distention of the left ureter and renal pelvis compared to the prior exam. Left nephroureteral catheter again seen, now more proximal in positioning, with the pigtail within the dilated renal pelvis. Electronically signed by: Heena Clarke On 04/06/2019 04:17:09 AM
[2019-04-06] MEDS: HYDROMORPHONE HCL 0.5 MG/ 0.5 ML SYRINGE (J1170 PER 1) IV PRN ×2 (04:19→07:39)
[2019-04-06] MEDS ORDERED: PIPERACILLIN/TAZOBACTAM SOD 3.375 GM in D5W MINI-BAG PLUS 50 ML IV ONE (05:15)
--- NOTE | 2019-04-06 05:41 | HPEPDOC ---
[facility] Medical History & Physical Date of Admission Apr 06, 2019 Date of Service: Apr 06, 2019 Primary Care Physician: Jhoana Kat Attending Physician: MODESTO MEYER MD History and Physical Time of service 607AM CHIEF COMPLAINT: "Not feeling well" HISTORY OF PRESENT ILLNESS: Ms. Miller is a 74 year old female who presents with complaints of "not feeling well" that began yesterday morning; specifically, she had fevers, chills, nausea w/o vomiting, and severe 9 out of 10 lower back pain that radiated to her stomach. She couldn't identify any thing that aggrevated or alleviated the stomach pain which is now 8/10 in severity. She was Zosyn, IV fluids, and Dilaudid in the ED REVIEW OF SYSTEMS: 12 point review of systems negative except as listed in HPI PAST MEDICAL/SURGICAL HISTORY: 1. History of cystocele & cystocele repair, prior to a total cystectomy and ileal conduit with urostomy bag 2. Hypothyroidism 3. RUTHANN. 4. History of neuropathy 5. Restless leg syndrome 6. Dji-lemzifh-wbtzxpnjr diabetes. 7. CKD 2. 8. History of vitamin B12 deficiency. 9. Fibromyalgia. 10. Status post colectomy and colostomy. 11. Status post rectocele repair 12.Chronic hypertension. 13. Status post appendectomy. 14. Status post cholecystectomy. 15. Status post lumbar vertebral fusion surgery SOCIAL HISTORY: Denies Tobacco use Denies Alcohol use FAMILY HISTORY: CAD Diabetes ALLERGIES: Please see below. HOME MEDICATIONS: Please see below. PHYSICAL EXAMINATION: VITAL SIGNS: Temperature 100.4, pulse 56, respiratory 20, blood pressure 125/83, pulse oximetry 94% on room air GENERAL APPEARANCE: , Well-nourished, well-developed, does not appear toxic, appears slightly flushed HEENT: . Normocephalic, atraumatic, mucous members moist and pink CARDIOVASCULAR: . Regular rate and rhythm, no murmurs, rubs or gallops, radial pulses are intact, extremities are warm and well perfused LUNGS: . Lungs are clear to auscultation bilaterally on room air ABDOMEN: . Hypoactive bowel sounds, abdomen is soft and nontender to palpation. There is a urostomy bag at the right lower abdomen and a colostomy bag at the left lower abdomen MUSCULOSKELETAL: . Range of motion is intact in upper extremities, positive CVA angle tenderness at the left lower extremity EXTREMITIES: . No lower extremity edema NEUROLOGICAL: . Cranial nerves 2-12 grossly intact, speech is not dysarthric, bi lateral lower extremity dyskinesia PSYCHIATRIC: , Alert and oriented to person, place and time, able to understand and follow commands LABORATORY DATA: CBC is remarkable for hemoglobin of 9.1 with MCV of 91. Chemistries remarkable for creatinine of 1.5 and glucose of 151 UA shows 2+ protein, 2+ blood, nitrites, 3+ leukocyte esterase, WBCs too numerous to count 107 RBCs and bacteuria IMAGING: CT of the abdomen and pelvish showed "IMPRESSION: 1. Mildly dilated small bowel with air-fluid levels but without a distinct transition point, with a similar degree of distention compared to the prior exam. 2. Bilateral hydroureteronephrosis, leading into a urostomy, with slight increase in degree of distention of the left ureter and renal pelvis compared to the prior exam. Left nephroureteral catheter again seen, now more proximal in positioning, with the pigtail within the dilated renal pelvis. " MICROBIOLOGY: Pending ASSESSMENT: Ms. Miller is a 74-year-old female with a past medical history of multiple urological procedures with urostomy placement and multiple UTIs who will be ad mitted for management of fever secondary to pyelonephritis. PLAN: 1. Fever secondary to pyelonephritis The UA findings and presence of costovertebral angle tenderness indicated that she likely has pyelonephritis This patient has a history of recurrent UTIs with polynephritis, infections with Escherichia coli, enterococcus and ESBL She also has a history of cystocele & cystocele repair, prior to a total cystectomy and ileal conduit with urostomy bag Besides the fever she doesn't have any other SIRS criteria The UA, GFR, Cr & BUN have been reviewed Plan: admit to PCU/f/u Ucx, blood Cx and renal function /continue with Zosyn pending urine cultures ( antibiotic day #08/26) / acetaminophen for fever 2.CKD 2. The creatinine is slightly elevated Plan: Follow-up BMP & avoid nephrotoxins such as NSAIDs 3. Rhc-bxqucqn-mtvtdodxn diabetes. Plan: f/u accuchecks & A1C / hypoglycemia protocol / sliding scale / hold oral anti-glycemics 4. Hypothyroidism Plan: Continue home medications 5 RUTHANN. Plan: Home CPAP machine 6. Restless leg syndrome Plan: Continue home medications 7 Chronic hypertension. Plan: Continue home medications DVT prophylaxis with Lovenox Disposition pending clinical course Laboratory Data CBC/BMP Laboratory Tests 04/06/19 01:00 Red Blood Count 3.04 L, Mean Corpuscular Volume 91.4, Mean Corpuscular Hemoglobin 29.9, Mean Corpuscular Hemoglobin Concent 32.7, Red Cell Distribution Width 14.2, Neutrophils (%) (Auto) 81.3 H, Lymphocytes (%) (Auto) 9.2 L, Monocytes (%) (Auto) 9.1 H, Eosinophils (%) (Auto) 0.0, Basophils (%) (Auto) 0.1, Neutrophils # (Auto) 7.4, Lymphocytes # (Auto) 0.8 L, Monocytes # (Auto) 0.8, Eosinophils # (Auto) 0.0, Basophils # (Auto) 0.0 Microbiology Microbiology 04/06/19 Blood Culture, Received Pending 04/06/19 Urine Culture, Received Pending Home Medications Scheduled Amlodipine Besylate (Amlodipine Besylate) 5 Mg Tablet, 5 MG PO DAILY Aspirin (Aspirin EC) 81 Mg Tabec, 81 MG PO QHS Cyanocobalamin (Vitamin B-12) (Vitamin B-12) 1,000 Mcg Tab, 1,000 MCG PO DAILY Ferrous Sulfate (Ferrous Sulfate) 325 Mg Tab, 325 MG PO DAILY Levothyroxine Sodium (Levothyroxine Sodium) 50 Mcg Tab, 50 MCG PO DAILY Lisinopril (Lisinopril) 20 Mg Tablet, 20 MG PO DAILY Magnesium Oxide (Magnesium Oxide) 400 Mg Tablet, 400 MG PO BID Metaxalone (Skelaxin) 800 Mg Tab, 800 MG PO TID Oxycodone HCl (Oxycodone HCl ER) 20 Mg Tab, 20 MG PO BID Oxycodone HCl (Oxycodone HCl) 10 Mg Tablet, 10 MG PO BID TAKES AT 1500 AND QHS Pravastatin Sodium (Pravastatin Sodium) 20 Mg Tab, 20 MG PO DAILY Pregabalin (Lyrica) 100 Mg Cap, 100 MG PO TID Ranitidine HCl (Ranitidine HCl) 300 Mg Tab, 1 TAB PO BID Ropinirole HCl (Ropinirole HCl) 1 Mg Tab, 1 MG PO BID TAKES AT 1600 AND QHS Trazodone HCl (Trazodone HCl) 100 Mg Tablet, 100 MG PO QHS Scheduled PRN Lidocaine (Lidocaine) 5 % Pad, 3 PATCH TOP DAILY PRN for PAIN USES ON BACK AND NECK Nitroglycerin (Nitroglycerin) 0.4 Mg Sub, 0.4 MG SL NITRO PRN for CHEST PAIN Polyethylene Glycol 3350 (Miralax) 119 Gm Powder, 17 GM PO BID PRN for CONSTIPATION Allergies Coded Allergies: pneumococcal vaccine (Verified Allergy, Intermediate, hives, 12/26/18) Corticosteroids (Glucocorticoids) (Verified Allergy, Unknown, 12/26/18) codeine (Verified Allergy, Unknown, 12/26/18) pt has had morphine in the past influenza virus vacc trivalent, spl (Verified Adverse Reaction, Severe, coma, 03/02/19) influenza virus vaccine tv 2013-(18-49 yrs),rcmb (Verified Adverse Reaction, Severe, flu vaccine - coma, 03/02/19) TAPE (Verified Adverse Reaction, Mild, BLISTERS, 05/26/18) clonidine (Verified Adverse Reaction, Mild, faint, 03/02/19) quinapril (Verified Adverse Reaction, Mild, passed out, 03/02/19) zolpidem (Verified Adverse Reaction, Mild, sleep walking, 12/26/18) A-FIB/CHADSVASC A-FIB History Current/History of A-Fib/PAF?: No Current PO Anticoag Therapy: No MODESTO MEYER MD Apr 06, 2019 05:41
[2019-04-06] MEDS ORDERED: MAGN400T PO (06:11)
[2019-04-06] MEDS ORDERED: NITROGLYCERIN 0.4 MG SUBL TABLET SL PRN (06:45)
[2019-04-06] MEDS ORDERED: MIRALAX *UNIT DOSE* 17GM PACKET PO PRN (06:45)
[2019-04-06] MEDS ORDERED: DEXTROSE 50% 50 ML SYRINGE IV PRN (06:45)
[2019-04-06] MEDS: LEVOTHYROXINE 50MCG TABLET (0.05MG) PO SCH (07:38)
[2019-04-06] MEDS: oxyCODONE 5MG TAB PO PRN (07:39)
[2019-04-06] MEDS ORDERED: ACETAMINOPHEN 500 MG TAB PO PRN (08:30)
[2019-04-06] MEDS: CYANOCOBALAMIN 500 MCG TAB PO SCH (08:43)
[2019-04-06] MEDS: amLODIPine 5 MG TAB PO SCH (08:43)
[2019-04-06] MEDS: MAGNESIUM OXIDE 400 MG TAB (MAG-OX) PO SCH ×2 (08:43→20:53)
[2019-04-06] MEDS: PRAVASTATIN 20 MG TAB PO SCH (08:44)
[2019-04-06] MEDS: FERROUS SULFATE 325MG TAB PO SCH (08:44)
[2019-04-06] MEDS: LISINOPRIL 20 MG TAB PO SCH (08:45)
[2019-04-06] MEDS: PREGABALIN 100 MG CAP (LYRICA) PO SCH ×3 (08:45→20:52)
[2019-04-06] MEDS: ENOXAPARIN 30 MG/0.3 ML SYR (J1650) SC SCH (08:46)
[2019-04-06] MEDS: HumaLOG INSULIN (NovoLOG) PER UNIT SC SCH ×4 (08:46→20:53)
[2019-04-06] MEDS: LIDOCAINE 5% (LIDODERM) PATCH TD SCH (08:46)
[2019-04-06 08:49] LABS: HEMOGLOBIN A1c 6.3 %
[2019-04-06] MEDS ORDERED: LevoFLOXacin IV 250 MG in APPROPRIATE DILUENT 1 EA IV SCH (09:00)
[2019-04-06] MEDS: ASPIRIN 81 MG ENTERIC TAB PO SCH ×2 (10:04→20:51)
[2019-04-06] MEDS: raNITIdine SYRUP 150 MG/10 ML UDC PO SCH ×2 (10:08→21:44)
[2019-04-06] MEDS: METAXALONE 800 MG TABLET PO SCH ×3 (10:08→20:52)
[2019-04-06 12:45] VITALS: BP 122/48
[2019-04-06] MEDS: PIPERACILLIN/TAZOBACTAM SOD 3.375 GM in D5W MINI-BAG PLUS 50 ML IV SCH ×3 (13:23→22:55)
[2019-04-06] MEDS ORDERED: oxyCODONE 5MG TAB PO SCH (15:00)
[2019-04-06] MEDS: rOPINIRole 1MG TAB PO SCH ×2 (15:02→20:52)
[2019-04-06] MEDS ORDERED: KETOROLAC 30 MG/ML VIAL (J1885) As Ordered ONE (15:27)
[2019-04-06] MEDS ORDERED: KETOROLAC 30 MG/ML VIAL (J1885) IV ONE (16:00)
[2019-04-06] MEDS: NS 1,000 ML IV SCH (16:25)
[2019-04-06] MEDS: ACETAMINOPHEN 500 MG TAB PO SCH ×2 (16:25→20:52)
[2019-04-06] MEDS ORDERED: PIPERACILLIN/TAZOBACTAM SOD 2.25 GM in D5W MINI-BAG PLUS 50 ML IV SCH (18:00)
[2019-04-06] MEDS: oxyCODONE 5MG TAB PO SCH (20:51)
[2019-04-06] MEDS: **NOTE PATIENT COMMENT** MISC XX SCH (20:53)
[2019-04-06 22:00] VITALS: BP 110/48
[2019-04-06] MEDS: traZODone 100 MG TAB PO PRN (22:54)
[2019-04-07] MEDS: ACETAMINOPHEN 500 MG TAB PO SCH ×2 (02:43→09:03)
[2019-04-07] MEDS: PIPERACILLIN/TAZOBACTAM SOD 3.375 GM in D5W MINI-BAG PLUS 50 ML IV SCH ×4 (05:51→22:57)
[2019-04-07] MEDS: LEVOTHYROXINE 50MCG TABLET (0.05MG) PO SCH (05:51)
[2019-04-07] MEDS: NS 1,000 ML IV SCH (05:53)
[2019-04-07 06:00] VITALS: BP 118/52
[2019-04-07 07:15] LABS: HEMATOCRIT 25.5 % (36.0-47.0); HEMOGLOBIN 7.9 g/dl (12.0-15.5); MEAN CORPUSCULAR HEMOGLOBIN 29.4 pg (27.0-33.0); MEAN CORPUSCULAR VOLUME 94.8 fl (80.0-96.0); PLATELET COUNT, AUTOMATED 106 10^3/uL (150-450); RED BLOOD COUNT 2.69 10^6/uL (4.00-5.40); WHITE BLOOD COUNT 6.2 10^3/uL (4.0-10.0)
[2019-04-07] MEDS: HumaLOG INSULIN (NovoLOG) PER UNIT SC SCH ×4 (07:30→21:00)
[2019-04-07 07:42] LABS: CREATININE FOR GFR 1.69 MG/DL (0.55-1.30); GLOMERULAR FILTRATION RATE 31.4 (>39); MAGNESIUM LEVEL 2.2 MG/DL (1.8-2.4); POTASSIUM SERUM 3.9 MEQ/L (3.5-5.1)
[2019-04-07] MEDS: LISINOPRIL 20 MG TAB PO SCH (09:00)
[2019-04-07] MEDS ORDERED: FAMOTIDINE 20 MG TAB PO SCH (09:00)
[2019-04-07] MEDS: ENOXAPARIN 30 MG/0.3 ML SYR (J1650) SC SCH (09:00)
[2019-04-07] MEDS: METAXALONE 800 MG TABLET PO SCH ×3 (09:02→20:29)
[2019-04-07] MEDS: amLODIPine 5 MG TAB PO SCH (09:02)
[2019-04-07] MEDS: FERROUS SULFATE 325MG TAB PO SCH (09:02)
[2019-04-07] MEDS: PRAVASTATIN 20 MG TAB PO SCH (09:02)
[2019-04-07] MEDS: MAGNESIUM OXIDE 400 MG TAB (MAG-OX) PO SCH ×2 (09:02→20:30)
[2019-04-07] MEDS: CYANOCOBALAMIN 500 MCG TAB PO SCH (09:03)
[2019-04-07] MEDS: PREGABALIN 100 MG CAP (LYRICA) PO SCH ×3 (09:03→20:29)
[2019-04-07] MEDS: raNITIdine SYRUP 150 MG/10 ML UDC PO SCH (09:05)
[2019-04-07] MEDS: oxyCODONE 5MG TAB PO SCH ×3 (09:05→20:30)
[2019-04-07] MEDS: LIDOCAINE 5% (LIDODERM) PATCH TD SCH (09:13)
--- NOTE | 2019-04-07 10:42 | IPNPDOC ---
Text Note Date of Service The patient was seen on 04/06/19. VS,Lázarobone, I+O VS, Fishbone, I+O Laboratory Tests 04/06/19 01:00 Red Blood Count 3.04 L, Mean Corpuscular Volume 91.4, Mean Corpuscular Hemoglobin 29.9, Mean Corpuscular Hemoglobin Concent 32.7, Red Cell Distribution Width 14.2, Neutrophils (%) (Auto) 81.3 H, Lymphocytes (%) (Auto) 9.2 L, Monocytes (%) (Auto) 9.1 H, Eosinophils (%) (Auto) 0.0, Basophils (%) (Auto) 0.1, Neutrophils # (Auto) 7.4, Lymphocytes # (Auto) 0.8 L, Monocytes # (Auto) 0.8, Eosinophils # (Auto) 0.0, Basophils # (Auto) 0.0 Vital Signs Date Time Temp Pulse Resp B/P (MAP) Pulse Ox O2 Delivery O2 Flow Rate FiO2 04/06/19 17:06 99.8 04/06/19 15:02 18 04/06/19 12:45 68 122/48 (72) 97 04/06/19 12:35 Room Air I&O- Last 24 Hours up to 6 AM 04/06/19 06:00 Intake Total 1000 ml Balance 1000 ml NAT VANEGAS MD Apr 06, 2019 19:12
--- NOTE | 2019-04-07 11:19 | IPNPDOC ---
Subjective Date Seen The patient was seen on 04/07/19. Subjective Chief Complaint/HPI feels much better today , her pain is well controlled, No further fever since yesterday afternoon. Does not have any restless legs today. No nausea or vomiting or diarrhea. Has semisolid stool in the bag. Objective Physical Examination General Exam: Positive: Alert, Cooperative, No Acute Distress Eye Exam: Positive: PERRLA, Conjunctiva & lids normal, EOMI; Negative: Sclera icteric ENT Exam: Positive: Atraumatic, Mucous membr. moist/pink, Pharynx Normal Neck Exam: Positive: Supple; Negative: JVD, thyromegaly Chest Exam: Positive: Clear to auscultation, Normal air movement Heart Exam: Positive: Rate Normal, Bradycardic, Regular Rhythm, Normal S1, Normal S2; Negative: Gallops, Murmurs, Rubs, Other Telemetry: Positive: Sinus, Bradycardia Abdomen Exam: Positive: Normal bowel sounds, Soft, Tenderness (in the left flank and CVA), Other (urostomy bag and colostomy bag) Extremity Exam: Positive: Normal pulses; Negative: Clubbing, Cyanosis, Edema Skin Exam: Positive: Nl turgor and temperature; Negative: Rash, Breakdown Assessment /Plan Assessment Ms. 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 Colonic bowel obstructions with surgery and has had colostomy bag in place since 1997, chronic abdominal pain, Lumbar radiculopathy with chronic low back pain, Has history of lumbar fusion surgery, Progressive cervical spondylosis with cervical radiculopathy of the right , causing impairment in the function of the right hand, chronically dependent on narcotics, Diabetes, Hypothyroid, Hypertension, Restless leg syndrome, Gastroesophageal reflux disease (GERD), Fibromyalgia, Obstructive sleep apnea (RUTHANN) on continuous positive airway pressure (CPAP), CKD stage 3, Adrenal adenoma, Chronic anemia with iron deficiency, Cirrhosis of liver and splenomegaly as per CT scan and a new diagnosis of atrial fibrillation from [facility] during her February admission when she was noted to be bradycardic for which she was referred to Dr Koroma. She presented this time with high grade fever, chills and abdominal pain with CVA tenderness more o levy left and was admitted for pyelonephritis. Pyelonephritis with presence of bilateral chronic hydro uretero nephrosis and uretero - ureteral stricture with left nephroureteral catheter in place will continue with Zosyn will need 14 days of antibiotics. patient seems to have defervescenced. blood cultures negative till date urine cultures pending Severe bradycardia in telemetry HR in 30s when asleep with some irregularity ? underlying a fib have consulted cardiology SUPA on CKD 2 with chronic obstructive uropathy now worse due to infection will hold lisinopril. Chronic Anemia patient has iron deficiency anemia and anemia of chronic disease HH worse today. Part of it may be dilutional will recheck tomorrow if below 7 with transfuse. continue iron supplements. Kpk-esgvcrf-nwdzspvnr diabetes. Lispro as per sliding scale Hypothyroidism synthroid RUTHANN. Plan: Home CPAP machine Restless leg syndrome Plan: Continue home medications Chronic hypertension. will continue amlodipine but hold lisinopril as renal functions are a little worse than baseline GERD will give famotidine in place of ranitidine. Plan/VTE VTE Prophylaxis Ordered?: Yes VS, I&O, 24H, Fishbone Vital Signs/I&O Vital Signs Date Time Temp Pulse Resp B/P (MAP) Pulse Ox O2 Delivery O2 Flow Rate FiO2 04/07/19 09:05 18 04/07/19 09:02 55 122/57 04/07/19 06:00 96.3 94 04/06/19 12:35 Room Air I&O- Last 24 Hours up to 6 AM 04/07/19 05:59 Intake Total 1750 ml Output Total 675 ml Balance 1075 ml Laboratory Data 24H LABS Laboratory Tests 2 04/06/19 13:13: Bedside Glucose (Misc Panel) 105 04/06/19 16:59: Bedside Glucose (Misc Panel) 170H 04/06/19 20:21: Bedside Glucose (Misc Panel) 137H 04/07/19 05:49: Nucleated Red Blood Cells % (auto) 0.0, Anion Gap 8, Glomerular Filtration Rate 31.4L, Blood Urea Nitrogen 22H, Creatinine 1.69H, Sodium Level 144, Potassium Level 3.9, Chloride Level 112H, Carbon Dioxide Level 24, Calcium Level 8.0L, Magnesium Level 2.2 CBC/BMP Laboratory Tests 04/07/19 05:49 Red Blood Count 2.69 L, Mean Corpuscular Volume 94.8, Mean Corpuscular Hem oglobin 29.4, Mean Corpuscular Hemoglobin Concent 31.0 L, Red Cell Distribution Width 14.5, Calcium Level 8.0 L Microbiology Microbiology 04/06/19 Blood Culture - Preliminary, Resulted No growth after 24 hours . All specim... 04/06/19 Blood Culture - Preliminary, Resulted No growth after 24 hours . All specim... 04/06/19 Urine Culture, Received Pending NAT VANEGAS MD Apr 07, 2019 11:19
[2019-04-07] MEDS ORDERED: ACETAMINOPHEN 500 MG TAB PO PRN (11:30)
[2019-04-07 14:00] VITALS: BP 118/72
[2019-04-07] MEDS: rOPINIRole 1MG TAB PO SCH ×2 (16:44→20:30)
[2019-04-07] MEDS: ASPIRIN 81 MG ENTERIC TAB PO SCH (20:30)
[2019-04-07] MEDS: **NOTE PATIENT COMMENT** MISC XX SCH (20:30)
[2019-04-07 22:00] VITALS: BP 103/81
[2019-04-07] MEDS ORDERED: CALCIUM CARBONATE 500 MG CHEW U/D PO PRN (22:15)
[2019-04-07] MEDS ORDERED: raNITIdine SYRUP 150 MG/10 ML UDC PO SCH (22:15)
[2019-04-07] MEDS: traZODone 100 MG TAB PO PRN (22:56)
[2019-04-08] MEDS: oxyCODONE 5MG TAB PO PRN (02:39)
[2019-04-08] MEDS: LEVOTHYROXINE 50MCG TABLET (0.05MG) PO SCH (05:47)
[2019-04-08] MEDS: PIPERACILLIN/TAZOBACTAM SOD 3.375 GM in D5W MINI-BAG PLUS 50 ML IV SCH ×4 (05:48→23:07)
[2019-04-08 06:00] VITALS: BP 107/75
[2019-04-08 06:28] LABS: BASO % 0.1 % (0.0-1.0); EOS % 0.6 % (0.0-3.0); HEMATOCRIT 26.2 % (36.0-47.0); HEMOGLOBIN 8.4 g/dl (12.0-15.5); LYMPH # 1.1 10^3/uL (1.5-4.5); LYMPH % 14.9 % (24.0-44.0); MEAN CORPUSCULAR HEMOGLOBIN 28.9 pg (27.0-33.0); MEAN CORPUSCULAR HGB CONC 32.1 g/dl (32.0-36.5); MONO # 0.5 10^3/uL (0.0-0.8); MONO % 6.5 % (0.0-5.0); NEUTROPHILS # 5.5 10^3/uL (1.8-7.7); NEUTROPHILS % 77.5 % (36.0-66.0); PLATELET COUNT, AUTOMATED 155 10^3/uL (150-450); RED BLOOD COUNT 2.91 10^6/uL (4.00-5.40); WHITE BLOOD COUNT 7.1 10^3/uL (4.0-10.0)
[2019-04-08 07:02] LABS: CALCIUM LEVEL 8.7 MG/DL (8.8-10.2); CREATININE FOR GFR 1.33 MG/DL (0.55-1.30); GLOMERULAR FILTRATION RATE 41.4 (>39); POTASSIUM SERUM 3.9 MEQ/L (3.5-5.1); THYROID STIMULATING HORMONE 0.443 uIU/ML (0.358-3.740)
[2019-04-08] MEDS: HumaLOG INSULIN (NovoLOG) PER UNIT SC SCH ×4 (07:30→21:00)
[2019-04-08] MEDS: LIDOCAINE 5% (LIDODERM) PATCH TD SCH (10:06)
[2019-04-08] MEDS: PRAVASTATIN 20 MG TAB PO SCH (10:07)
[2019-04-08] MEDS: PREGABALIN 100 MG CAP (LYRICA) PO SCH ×3 (10:07→21:47)
[2019-04-08] MEDS: CYANOCOBALAMIN 500 MCG TAB PO SCH (10:07)
[2019-04-08] MEDS: FERROUS SULFATE 325MG TAB PO SCH (10:07)
[2019-04-08] MEDS: ENOXAPARIN 30 MG/0.3 ML SYR (J1650) SC SCH (10:07)
[2019-04-08] MEDS: METAXALONE 800 MG TABLET PO SCH ×3 (10:08→21:47)
[2019-04-08] MEDS: oxyCODONE 5MG TAB PO SCH ×3 (10:08→21:48)
[2019-04-08] MEDS: MAGNESIUM OXIDE 400 MG TAB (MAG-OX) PO SCH ×2 (10:08→21:47)
[2019-04-08] MEDS: FAMOTIDINE 20 MG TAB PO SCH ×2 (10:30→21:47)
[2019-04-08] MEDS: amLODIPine 5 MG TAB PO SCH (10:31)
--- NOTE | 2019-04-08 12:40 | IPNPDOC ---
Subjective Date Seen The patient was seen on 04/08/19. Subjective Chief Complaint/HPI Had a low grade fever last night 100.8. No chills, no chest pain or sob , remains bradycardic in telemetry overnight no pauses. No abdominal pain , nausea or vomiting or diarrhea. Continues to complain of abdominal pain in the left flank Objective Physical Examination General Exam: Positive: Alert, Cooperative, No Acute Distress Eye Exam: Positive: PERRLA, Conjunctiva & lids normal, EOMI; Negative: Sclera icteric ENT Exam: Positive: Atraumatic, Mucous membr. moist/pink, Pharynx Normal Neck Exam: Positive: Supple; Negative: JVD, thyromegaly Chest Exam: Positive: Clear to auscultation, Normal air movement Heart Exam: Positive: Rate Normal, Bradycardic, Regular Rhythm, Normal S1, Normal S2; Negative: Gallops, Murmurs, Rubs, Other Telemetry: Positive: Sinus, Bradycardia Abdomen Exam: Positive: Normal bowel sounds, Soft, Tenderness (in the left flank and CVA), Other (urostomy bag and colostomy bag) Extremity Exam: Positive: Normal pulses; Negative: Clubbing, Cyanosis, Edema Skin Exam: Positive: Nl turgor and temperature; Negative: Rash, Breakdown Assessment /Plan Assessment Ms. 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 Colonic bowel obstructions with surgery and has had colostomy bag in place since 1997, chronic abdominal pain, Lumbar radiculopathy with chronic low back pain, Has history of lumbar fusion surgery, Progressive cervical spondylosis with cervical radiculopathy of the right , causing impairment in the function of the right hand, chronically dependent on narcotics, Diabetes, Hypothyroid, Hypertension, Restless leg syndrome, Gastroesophageal reflux disease (GERD), Fibromyalgia, Obstructive sleep apnea (RUTHANN) on continuous positive airway pressure (CPAP), CKD stage 3, Adrenal adenoma, Chronic anemia with iron deficiency, Cirrhosis of liver and splenomegaly as per CT scan and a new diagnosis of atrial fibrillation from [facility] during her February admission when she was noted to be bradycardic for which she was referred to Dr Koroma. She presented this time with high grade fever, chills and abdominal pain with CVA tenderness more o levy left and was admitted for pyelonephritis. Pyelonephritis with presence of bilateral chronic hydro uretero nephrosis and uretero - ureteral stricture with left nephroureteral catheter in place will continue with Zosyn will need 14 days of antibiotics. patient seems to have defervescenced. blood culture 1/2 positive for gram positive cocci in clusters so repeat culture sent. urine culture proteus Severe bradycardia in telemetry HR in 30s when asleep with some irregularity ? underlying a fib have consulted cardiology SUPA on CKD 2 with chronic obstructive uropathy now worse due to infection will hold lisinopril. Chronic Anemia patient has iron deficiency anemia and anemia of chronic disease HH worse today. Part of it may be dilutional will recheck tomorrow if below 7 with transfuse. continue iron supplements. Maw-niwrkji-dgqyxyxmb diabetes. Lispro as per sliding scale Hypothyroidism synthroid RUTHANN. Plan: Home CPAP machine Restless leg syndrome home medications Chronic hypertension. will continue amlodipine but hold lisinopril as renal functions are a little worse than baseline GERD on ranitidine now in liquid form. pharmacy does not have tablets so was changed to famotidine. Plan/VTE VTE Prophylaxis Ordered?: Yes VS, I&O, 24H, Fishbone Vital Signs/I&O Vital Signs Date Time Temp Pulse Resp B/P (MAP) Pulse Ox O2 Delivery O2 Flow Rate FiO2 04/08/19 06:00 97.8 64 18 107/75 (86) 95 04/06/19 12:35 Room Air I&O- Last 24 Hours up to 6 AM 04/08/19 06:00 Intake Total 1725 ml Output Total 1500 ml Balance 225 ml Laboratory Data 24H LABS Laboratory Tests 2 04/07/19 11:31: Bedside Glucose (Misc Panel) 115H 04/07/19 17:24: Bedside Glucose (Misc Panel) 166H 04/07/19 21:07: Bedside Glucose (Misc Panel) 131H 04/08/19 05:39: Immature Granulocyte % (Auto) 0.4, White Blood Count 7.1, Red Blood Count 2.91L, Hemoglobin 8.4L, Hematocrit 26.2L, Mean Corpuscular Volume 90.0, Mean Corpuscular Hemoglobin 28.9, Mean Corpuscular Hemoglobin Concent 32.1, Red Cell Distribution Width 14.6H, Platelet Count 155, Neutrophils (%) (Auto) 77.5H, Lymphocytes (%) (Auto) 14.9L, Monocytes (%) (Auto) 6.5H, Eosinophils (%) (Auto) 0.6, Basophils (%) (Auto) 0.1, Neutrophils # (Auto) 5.5, Lymphocytes # (Auto) 1.1L, Monocytes # (Auto) 0.5, Eosinophils # (Auto) 0.0, Basophils # (Auto) 0.0, Nucleated Red Blood Cells % (auto) 0.0 CBC/BMP Laboratory Tests 04/08/19 05:39 Red Blood Count 2.91 L, Mean Corpuscular Volume 90.0, Mean Corpuscular Hemoglobin 28.9, Mean Corpuscular Hemoglobin Concent 32.1, Red Cell Distribution Width 14.6 H, Neutrophils (%) (Auto) 77.5 H, Lymphocytes (%) (Auto) 14.9 L, Monocytes (%) (Auto) 6.5 H, Eosinophils (%) (Auto) 0.6, Basophils (%) (Auto) 0.1, Neutrophils # (Auto) 5.5, Lymphocytes # (Auto) 1.1 L, Monocytes # (Auto) 0.5, Eosinophils # (Auto) 0.0, Basophils # (Auto) 0.0 Microbiology Microbiology 04/07/19 Blood Culture, Received Pending 04/06/19 Blood Culture - Preliminary, Resulted 04/06/19 Blood Culture - Preliminary, Resulted No Growth after 48 hours. All Specime... 04/06/19 Urine Culture - Final, Complete Klebsiella Pneumoniae NAT VANEGAS MD Apr 08, 2019 06:56
[2019-04-08 14:00] VITALS: BP 99/54
[2019-04-08] MEDS: rOPINIRole 1MG TAB PO SCH ×2 (16:56→21:47)
[2019-04-08 18:00] VITALS: BP 118/66
[2019-04-08] MEDS: ASPIRIN 81 MG ENTERIC TAB PO SCH (21:47)
[2019-04-08] MEDS: **NOTE PATIENT COMMENT** MISC XX SCH (21:52)
[2019-04-08 22:00] VITALS: BP 139/75
--- NOTE | 2019-04-08 22:38 | IPN ---
DATE: 04/08/2019 Mrs. Uzma Miller was seen this afternoon, she was lying supine in bed in no acute distress at rest and her daughter was at bedside. She continued to have a markedly slow heart rate while sleeping. There is no report of dizziness, syncope or near-syncope. When she is alert and awake, her pulse is in the 60s. She has no chest pain or palpitations. She stated today that she forgot to tell me yesterday that she found ticks on her skin in the past, but was never being tested. This was ordered yesterday, 04/07/2019 and result is pending, Lyme test screening. PHYSICAL EXAMINATION: The patient is alert and awake in no acute distress at rest and very pleasant. Her most recent vital signs reveal blood pressure of 152/70 with a pulse that varies between 47 and 64, respiration 18 and her maximum temperature is 97.8 degrees Fahrenheit with oxygen saturation of 95% on room air. Examination of the head: Atraumatic. Neck is supple and no JVD appreciated. Lungs did not reveal any wheezing or crackles. The heart examination revealed a regular heart sounds without gallops. The point of maximal impulse (PMI) is not displaced. There is no rub. Abdomen is unremarkable. Extremities revealed no pedal edema. Neurological examination is negative for focal deficit. LABORATORY: Telemetry strips were reviewed and the patient seems to be in sinus rhythm with isolated PACs and underlying sinus arrhythmias. 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 IMPRESSION: 1. Cardiac arrhythmia. Esa sinus bradycardia noted on telemetry while sleeping. Asymptomatic. This again was discussed with the patient and her hospitalist and will continue current monitoring. Upon discharge from the hospital, she would benefit from an event recorder. She may also benefit from implantable loop recorder for further monitoring. It seems that her heart rate has been slowly progressing, getting slower, and in the future, she might need a permanent pacemaker, but I do not see any clear indication at this present time. 2. Hypertension being treated and will continue current medications. The systolic is mildly elevated today. This has been throughout the hospitalization, this has been mostly normal except part of 04/06/2019. 3. Hypothyroidism, on replacement therapy. 4. History of diabetes mellitus, on . 5. Chronic kidney disease and this is improving. 6. Urinary tract infection (UTI) with possible underlying pyelonephritis and this is being addressed, on IV antibiotics.
--- NOTE | 2019-04-08 22:45 | CR ---
DATE OF CONSULTATION: 04/07/2019 REFERRING PROVIDER: Dr. Yessi Martinez PRIMARY PROVIDER: Jhoana Kat NP PRIMARY CARDIOLOGY: Dr. Koroma REASON FOR CONSULTATION: Bradycardia. HISTORY OF PRESENT ILLNESS: A 74-year-old woman with a history of slow heart rate/bradycardia was admitted on 04/06/2019 with a sensation of not feeling well, and she was found to have a urinary tract infection (UTI), and she is being treated with intravenous (IV) antibiotics. While in telemetry, she was found to be markedly bradycardic while sleeping with a heart rate as low as reported to be in the 30s. Cardiology consult was called. When I saw Mrs. Uzma Miller in the floor, she was supine in bed in no acute distress at rest very pleasant. She does feel dizzy at times, but I am not sure whether it is related to bradycardia or not. She denies any syncope or near syncope. She was admitted last month at [facility], and at that time she was told she has atrial fibrillation, her heart rate was slow, a quality intern workup was recommended. She was seen recently by Dr. Koroma and had a Holter. Result is pending. She denies any chest pain, palpitations, orthopnea, or paroxysmal nocturnal dyspnea (PND). She does not walk much. As mentioned above, she has no syncope or near syncope. She denies any pedal edema. She has no focal manifestation. PAST MEDICAL HISTORY: Positive for: 1. Hypothyroidism. 2. Hypertension. 3. Hyperlipidemia. 4. Diabetes mellitus. 5. Chronic kidney disease, stage III. 6. Arthritis degenerative joint disease and degenerative disc disease. 7. Kidney stone and is complications, such as hydronephrosis and chronic kidney disease. 8. Iron deficiency anemia. 9. Obstructive sleep apnea, for which she has been on continuous positive airway pressure (CPAP) for the last 15 years. 10. Chronic obstructive pulmonary disease (COPD)/asthma. 11. Gastroesophageal reflux disease (GERD). She denies any history of significant valvular heart disease, myocardial infarction, obstructive coronary artery disease, cardiomyopathy, sudden cardiac , cerebrovascular accident (CVA)/transient ischemic attack (TIA). On her last hospitalization, she was told she has intermittent atrial fibrillation. PAST SURGICAL HISTORY: Positive for: 1. Rectocele repair. 2. Colectomy and colostomy. 3. Appendectomy. 4. Cholecystectomy. 5. Lumbar vertebrae fusion surgery. MEDICATIONS: - aspirin 81 mg by mouth daily - levothyroxine 50 mcg by mouth daily - trazodone 100 mg by mouth daily as needed for insomnia - oxycodone 15 mg by mouth every 12 hours as needed for severe pain - nitroglycerin sublingual as needed for chest pain - MiraLax one package by mouth twice a day as needed for constipation - Lyrica 100 mg by mouth three times a day - pravastatin 20 mg by mouth daily - metaxalone (Skelaxin) 800 mg by mouth three times a day - magnesium oxide 400 mg by mouth twice a day - ferrous sulfate 325 mg by mouth daily - amlodipine 5 mg by mouth daily - cyanocobalamin/vitamin B12 at 1000 mg by mouth daily - Lovenox 30 mg subcutaneous daily - piperacillin - ropinirole 1 mg by mouth twice a day - oxycodone 10 mg by mouth three times a day - regular insulin coverage - famotidine 20 mg by mouth daily - Tylenol 1000 mg by mouth every 6 hours as needed for pain. FAMILY HISTORY: Positive for coronary artery disease and peripheral artery disease in her mother, but was a smoker. ADVANCE DIRECTIVES: The patient is a full code. ALLERGIES: According to the chart, she has allergies to CORTICAL STEROIDS, tape, CLONIDINE, CODEINE, INFLUENZA VACCINE, PNEUMOCOCCAL VACCINE, QUINAPRIL, and ZOLPIDEM. PHYSICAL EXAMINATION: The patient is alert and oriented in no acute distress at rest and very pleasant. VITAL SIGNS: Her most recent vital signs when I saw her revealed a blood pressure of 122/57 with a pulse of 55, respiration 18, and her maximum temperature was 98.3 degrees Fahrenheit with an oxygen saturation of 91-94% on room air. HEAD: Atraumatic. NECK: Supple and no jugular venous distention (JVD) appreciated. LUNGS: Did not reveal any wheezing or crackles. HEART: Revealed normal S1 and S2 without gallops. The point of maximal impulse (PMI) is not displaced. There is no rub. ABDOMEN: Soft. EXTREMITIES: Revealed no pedal edema. Peripheral pulses, dorsalis pedis were +1 and equal. NEUROLOGIC: Negative for focal deficit. LABORATORY DATA: CBC revealed WBC of 6.2, hemoglobin 7.9, hematocrit 25.5, and platelets 106,000. On admission, hemoglobin and hematocrit were 9.1 and 27.8, respectively. BMP revealed a sodium of 144, potassium 3.9, chloride 112, CO2 of 24, BUN 22, creatinine 1.69, GFR 31.4, fasting glucose 175, calcium 8.8, and serum magnesium 2.2. Hemoglobin A1c was 6.3. Liver enzymes revealed a total bilirubin of 0.4, direct bilirubin 0.2, AST 16, ALT 13, alkaline phosphatase 92, total protein 6.6, albumin 3.0. Serum lipase was 67. Urinalysis revealed +2 blood and positive nitrate as well as +3 leukocyte esterase, and bacteria and reported to be too numerous to be counted. Urine RBC was 107. Urine bacteria was 2+. Abdomen and pelvic CT done this hospitalization on 04/06/2019 revealed a mildly dilated small bowel without a distinct transition point. Bilateral hydroureteronephrosis also noted, leading to an antrostomy. IMPRESSION: 1. Abnormal telemetry, and this was reviewed, and it revealed marked sinus bradycardia at times, but her heart rate can go with activities up to 70 beats per minute. Isolated premature atrial contractions (PAC) also noted. This was discussed with the patient, and she will be monitored for now. She had a Holter done at the office, and it will reviewed. I reviewed her medications, and there is no obvious medication at this present time that can cause bradycardia. Upon talking to her, she says that she has a long history of slow heart rate but is getting lower lately. I will reassess her thyroid function and will check her for Lyme disease. She also might benefit from treatment for her obstructive sleep apnea. She has not been using her CPAP machine. Once again, there is no indication at this present time for a permanent pacemaker. 2. History of hypertension, under control. 3. History of hyperlipidemia, currently on pravastatin. 4. History of diabetes mellitus, being addressed on diet. 5. Chronic kidney disease, and she is being monitored. 6. History of arthritis with degenerative joint disease, degenerative disc disease, and polymyalgia rheumatica. 7. History of kidney stone and its complications. 8. Hypothyroidism, on supplement. 9. Questionable history of atrial fibrillation, none detected since in the hospital and will continue monitoring. It was a pleasure to participate the care of Mrs. Uzma Miller for her underlying cardiac condition. We will continue to monitor her along issue while in the hospital. At this present time, she appears to be stable. Case was discussed with her hospitalist.
[2019-04-08] MEDS: traZODone 100 MG TAB PO PRN (23:07)
[2019-04-09 02:00] VITALS: BP 121/64
[2019-04-09] MEDS: oxyCODONE 5MG TAB PO PRN (05:31)
[2019-04-09] MEDS: PIPERACILLIN/TAZOBACTAM SOD 3.375 GM in D5W MINI-BAG PLUS 50 ML IV SCH (05:31)
[2019-04-09] MEDS: LEVOTHYROXINE 50MCG TABLET (0.05MG) PO SCH (05:31)
[2019-04-09 06:00] VITALS: BP 132/71
[2019-04-09 07:08] LABS: BASO % 0.2 % (0.0-1.0); EOS # 0.1 10^3/uL (0.0-0.50); EOS % 1.2 % (0.0-3.0); HEMOGLOBIN 8.7 g/dl (12.0-15.5); LYMPH # 1.1 10^3/uL (1.5-4.5); LYMPH % 23.7 % (24.0-44.0); MEAN CORPUSCULAR HEMOGLOBIN 28.9 pg (27.0-33.0); MEAN CORPUSCULAR HGB CONC 32.2 g/dl (32.0-36.5); MEAN CORPUSCULAR VOLUME 89.7 fl (80.0-96.0); MONO # 0.5 10^3/uL (0.0-0.8); MONO % 9.4 % (0.0-5.0); NEUTROPHILS # 3.1 10^3/uL (1.8-7.7); NEUTROPHILS % 65.3 % (36.0-66.0); PLATELET COUNT, AUTOMATED 171 10^3/uL (150-450); RED BLOOD COUNT 3.01 10^6/uL (4.00-5.40); WHITE BLOOD COUNT 4.8 10^3/uL (4.0-10.0)
[2019-04-09 07:33] LABS: CREATININE FOR GFR 1.11 MG/DL (0.55-1.30)
[2019-04-09] MEDS: PRAVASTATIN 20 MG TAB PO SCH (08:09)
[2019-04-09] MEDS: CYANOCOBALAMIN 500 MCG TAB PO SCH (08:09)
[2019-04-09] MEDS: MAGNESIUM OXIDE 400 MG TAB (MAG-OX) PO SCH (08:09)
[2019-04-09] MEDS: FAMOTIDINE 20 MG TAB PO SCH (08:09)
[2019-04-09] MEDS: FERROUS SULFATE 325MG TAB PO SCH (08:09)
[2019-04-09] MEDS: PREGABALIN 100 MG CAP (LYRICA) PO SCH (08:10)
[2019-04-09 08:18] VITALS: BP 146/78
[2019-04-09] MEDS: amLODIPine 5 MG TAB PO SCH (08:18)
[2019-04-09] MEDS: oxyCODONE 5MG TAB PO SCH (08:20)
[2019-04-09] MEDS: ENOXAPARIN 30 MG/0.3 ML SYR (J1650) SC SCH (08:22)
[2019-04-09] MEDS: LIDOCAINE 5% (LIDODERM) PATCH TD SCH (08:23)
[2019-04-09] MEDS: HumaLOG INSULIN (NovoLOG) PER UNIT SC SCH ×2 (08:25→12:00)
--- NOTE | 2019-04-09 08:36 | IPN ---
DATE: 04/09/2019 Mrs. Miller has been feeling much better. She tells me that her initial sickness has basically resolved. She denies any chest pain. She was able to ambulate around telemetry yesterday and even though she occasionally got dizzy overall she did well and was able to make two rounds around nursing station. She has no specific complaints today and is hoping to get home. Blood pressure 132/71. Heart rate has been at night time in 30s, during the daytime in 50s up to 80s sometimes. She is afebrile. Saturation is 95% on room air. Weight has not been documented. She made almost 1500 mL of urine yesterday. She is alert and oriented appropriate. Her jugular venous pulse (JVP) is not high. Lungs are clear. Heart exam reveals regular rhythm without obvious gallop, rub or murmur. Abdomen is soft. There is colostomy and nephrostomy. Both of them are draining appropriately. There is no edema. Laboratory herbert, she is anemic with hemoglobin 8.7, hematocrit 27, platelet count 171,000, and basic metabolic panel is essentially normal. Her TSH is 0.4. There was drawn a Lyme titer that is pending. ASSESSMENT AND PLAN: Mrs. Miller is a 74-year-old female who has extensive history of gastrointestinal (GI) and genitourinary () problems. She currently has nephrostomy and colostomy. The nephrostomy is in her right lower quadrant and I understand there is a stent that extends to her left ureter. She presented with urinary tract infection (UTI) and essentially urosepsis. With antibiotic treatment she improved. Cardiology was asked to see her because she was found to have episodes of bradycardia. I reviewed her telemetry tracings. At night, she gets quite bradycardic and I am not totally certain whether she might have episodes of atrial fibrillation. Reviewing telemetry strips it is not conclusive to my review and consequently I ordered EKG, which has not been done throughout this hospitalization. Even though if she has episodes of atrial fibrillation, I am afraid that she the anticoagulation would be problematic. She is quite anemic and I am not sure what the etiology of her anemia is. She denies any samantha history of bleeding, but because I am not quite familiar with her and she has a recurrent history of gastrointestinal surgeries I am somewhat apprehensive starting her on anticoagulation. For the time being, I think we should continue monitoring. The last iron level that is available record is from 2017 and I am going to order iron studies again.
[2019-04-09] MEDS ORDERED: LISI-538 PO (08:39)
[2019-04-09] MEDS ORDERED: LEVO250T12 PO (08:42)
[2019-04-09] MEDS ORDERED: CEFDINIR 300 MG CAP (OMNICEF) PO SCH (09:00)
[2019-04-09] MEDS: METAXALONE 800 MG TABLET PO SCH (09:51)
[2019-04-09 10:00] VITALS: BP 148/74
[2019-04-09 10:14] LABS: FERRITIN 166 NG/ML (8-252); IRON (FE) 40 UG/DL (50-170); LDH LACTATE DEHYDROGENASE 173 U/L (84-246); PERCENT SATURATION 24.5 % (13.2-45.0); TOTAL IRON BINDING CAPACITY 163 UG/DL (250-450)
[2019-04-09] MEDS ORDERED: CEFD300CAP PO (10:30)
[2019-04-09] MEDS ORDERED: cefTRIAXone SOD 1 GM in D5W MINI-BAG PLUS 50 ML IV SCH (11:00)
[2019-04-09 11:12] LABS: VITAMIN B12 LEVEL > 2000 PG/ML (247-911)
--- NOTE | 2019-04-09 18:35 | ECGEPIP ---
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
--- NOTE | 2019-04-10 07:10 | DS.PDOC ---
Discharge Summary General Date of Admission Apr 06, 2019 at 14:39 Date of Discharge 04/09/19 Discharge Summary PROCEDURES PERFORMED DURING STAY: [None]. 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 Chronic left nephroureteral catheter in place Sinus Bradycardia with Hr in 30s when asleep Questionable underlying A fib Supa on CKD Chronic anemia Chronic abdominal pain with opiod dependence Urostomy and colostomy in place Diabetes RLS Hypothyroid RUTHANN Hypertension GERD Adrenal adenoma Fibromyalgia Cirrhosis of liver with Splenomegaly as seen in CT no clinical symptoms. COMPLICATIONS/CHIEF COMPLAINT: UTI. HISTORY OF PRESENT ILLNESS: See history and physical HOSPITAL COURSE: Ms. Miller is a 74-year-old female with a past medical history of multiple urological procedures including cystocele and urocele repairs, bladder sling procedure which ultimately culminated in a total cystectomy and creation of ileal conduit and urostomy placement in 1997, multiple UTIs and pyelonephritis, chronic bilateral hydro ureteronephrosis due to ureteral -ureteral loop anastomosis stricture has left nephroureteral catheter in place gets changed every [address] Anthony in [place] last changed in february, Multiple history of small bowel obstructions with multiple bowel surgeries. Colonic bowel obstructions with surgery and has had colostomy bag in place since 1997, chronic abdominal pain, Lumbar radiculopathy with chronic low back pain, Has history of lumbar fusion surgery, Progressive cervical spondylosis with cervical radiculopathy of the right , causing impairment in the function of the right hand, chronically dependent on narcotics, Diabetes, Hypothyroid, Hypertension, Restless leg syndrome, Gastroesophageal reflux disease (GERD), Fibromyalgia, Obstructive sleep apnea (RUTHANN) on continuous positive airway pressure (CPAP), CKD stage 3, Adrenal adenoma, Chronic anemia with iron deficiency, Cirrhosis of liver and splenomegaly as per CT scan and a new diagnosis of atrial fibrillation from [facility] during her February admission when she was noted to be bradycardic for which she was referred to Dr Koroma. She presented this time with high grade fever, chills and abdominal pain with CVA tenderness more o levy left and was admitted for pyelonephritis. Pyelonephritis with presence of bilateral chronic hydro uretero nephrosis and uretero - ureteral stricture with left nephroureteral catheter in place Given Zosyn in hospital will need 14 days of antibiotics. blood culture 1/3positive for gram positive cocci in clusters contaminant urine culture proteus Severe bradycardia in telemetry HR in 30s when asleep with some irregularity ? underlying a fib have consulted cardiology SUPA on CKD 2 with chronic obstructive uropathy now worse due to infection will hold lisinopril. Chronic Anemia patient has iron deficiency anemia and anemia of chronic disease HH worse today. Part of it may be dilutional will recheck tomorrow if below 7 with transfuse. continue iron supplements. Yfy-ivqqspk-lknjlgtyq diabetes. Lispro as per sliding scale Hypothyroidism synthroid RUTHANN. Home CPAP machine Restless leg syndrome home medications Chronic hypertension. will continue amlodipine but hold lisinopril as renal functions are a little worse than baseline GERD on ranitidine now in liquid form. pharmacy does not have tablets so was changed to famotidine. DISCHARGE MEDICATIONS: Please see below. ALLERGIES: Please see below. PHYSICAL EXAMINATION ON DISCHARGE: VITAL SIGNS: Please see below. General Exam: Positive: Alert, Cooperative, No Acute Distress Eye Exam: Positive: PERRLA, Conjunctiva & lids normal, EOMI; Negative: Sclera icteric ENT Exam: Positive: Atraumatic, Mucous membr. moist/pink, Pharynx Normal Neck Exam: Positive: Supple; Negative: JVD, thyromegaly Chest Exam: Positive: Clear to auscultation, Normal air movement Heart Exam: Positive: Rate Normal, Bradycardic, Regular Rhythm, Normal S1, Normal S2; Negative: Gallops, Murmurs, Rubs, Other Telemetry: Positive: Sinus, Bradycardia Abdomen Exam: Positive: Normal bowel sounds, Soft, Tenderness (in the left flank and CVA), Other (urostomy bag and colostomy bag) Extremity Exam: Positive: Normal pulses; Negative: Clubbing, Cyanosis, Edema Skin Exam: Positive: Nl turgor and temperature; Negative: Rash, Breakdown LABORATORY DATA: Please see below. ACTIVITY: [As tolerated]. DIET: As tolerated DISPOSITION: 01 Home, Self-Care. DISCHARGE INSTRUCTIONS: Follow up PMD in 1 week. DISCHARGE CONDITION: [Stable]. TIME SPENT ON DISCHARGE: 35 minutes. Vital Signs/I&Os Vital Signs Date Time Temp Pulse Resp B/P (MAP) Pulse Ox O2 Delivery O2 Flow Rate FiO2 04/09/19 10:00 97.8 51 16 148/74 (98) 98 04/06/19 12:35 Room Air I&O- Last 24 Hours up to 6 AM 04/10/19 06:00 Intake Total 240 ml Output Total 1100 ml Balance -860 ml Laboratory Data Labs 24H Laboratory Tests 2 04/09/19 09:13: Iron Level 40L, Total Iron Binding Capacity 163L, Transferrin % Saturation 24.5, Ferritin 166, Lactate Dehydrogenase 173, Vitamin B12 Level > 2000H, Folate 13.0 04/09/19 10:23: 04/09/19 11:21: Bedside Glucose (Misc Panel) 132H FSBS Laboratory Tests Test 04/09/19 11:21 Range/Units Bedside Glucose (Misc Panel) 132 83-110 MG/DL Microbiology Microbiology 04/07/19 Blood Culture - Preliminary, Resulted No Growth after 48 hours. All Specime... 04/06/19 Blood Culture - Preliminary, Resulted 04/06/19 Blood Culture - Preliminary, Resulted No Growth after 72 hours. All specime... 04/09/19 Stool Occult Blood (JOAQUIN) - Final, Complete 04/06/19 Urine Culture - Final, Complete Klebsiella Pneumoniae Discharge Medications Scheduled Amlodipine Besylate (Amlodipine Besylate) 5 Mg Tablet, 5 MG PO DAILY, (Reported) Aspirin (Aspirin EC) 81 Mg Tabec, 81 MG PO QHS, (Reported) Cefdinir (Cefdinir) 300 Mg Capsule, 300 MG PO BID Cyanocobalamin (Vitamin B-12) (Vitamin B-12) 1,000 Mcg Tab, 1,000 MCG PO DAILY, (Reported) Ferrous Sulfate (Ferrous Sulfate) 325 Mg Tab, 325 MG PO DAILY, (Reported) Levothyroxine Sodium (Levothyroxine Sodium) 50 Mcg Tab, 50 MCG PO DAILY, (Reported) Lisinopril (Lisinopril) 20 Mg Tablet, 0.5 TAB PO DAILY Take 10 mg daily Magnesium Oxide (Magnesium Oxide) 400 Mg Tablet, 400 MG PO BID, (Reported) Metaxalone (Skelaxin) 800 Mg Tab, 800 MG PO TID, (Reported) Oxycodone HCl (Oxycodone HCl ER) 20 Mg Tab, 20 MG PO BID, (Reported) Oxycodone HCl (Oxycodone HCl) 10 Mg Tablet, 10 MG PO BID, (Reported) TAKES AT 1500 AND QHS Pravastatin Sodium (Pravastatin Sodium) 20 Mg Tab, 20 MG PO DAILY, (Reported) Pregabalin (Lyrica) 100 Mg Cap, 100 MG PO TID, (Reported) Ranitidine HCl (Ranitidine HCl) 300 Mg Tab, 1 TAB PO BID, (Reported) Ropinirole HCl (Ropinirole HCl) 1 Mg Tab, 1 MG PO BID, (Reported) TAKES AT 1600 AND QHS Trazodone HCl (Trazodone HCl) 100 Mg Tablet, 100 MG PO QHS, (Reported) Scheduled PRN Lidocaine (Lidocaine) 5 % Pad, 3 PATCH TOP DAILY PRN for PAIN, (Reported) USES ON BACK AND NECK Nitroglycerin (Nitroglycerin) 0.4 Mg Sub, 0.4 MG SL NITRO PRN for CHEST PAIN, (Reported) Polyethylene Glycol 3350 (Miralax) 119 Gm Powder, 17 GM PO BID PRN for CONSTIPATION, (Reported) Allergies Coded Allergies: pneumococcal vaccine (Verified Allergy, Intermediate, hives, 12/26/18) Corticosteroids (Glucocorticoids) (Verified Allergy, Unknown, 12/26/18) codeine (Verified Allergy, Unknown, 12/26/18) pt has had morphine in the past influenza virus vacc trivalent, spl (Verified Adverse Reaction, Severe, coma, 03/02/19) influenza virus vaccine tv 2012-14(18-49 yrs),rcmb (Verified Adverse Reaction, Severe, flu vaccine - coma, 03/02/19) TAPE (Verified Adverse Reaction, Mild, BLISTERS, 05/26/18) clonidine (Verified Adverse Reaction, Mild, faint, 03/02/19) quinapril (Verified Adverse Reaction, Mild, passed out, 03/02/19) zolpidem (Verified Adverse Reaction, Mild, sleep walking, 12/26/18) NAT VANEGAS MD Apr 10, 2019 07:10
[2019-04-11 00:06] LABS: Lyme Disease IgG/IgM Antibodie <0.91 ISR (0.00-0.90); Lyme Disease IgM Ab Quantitati <0.80 index (0.00-0.79)
== END 2019-04-09 12:54 | disposition home or self-care (01) | DRG 690 ==
LOC: M ED 00:28 → M ED INP 00:29 → M MSPAV 12:43 → OBSVTOIN 14:39
PROVIDERS: ADMIT Internal Medicine; ATTEND Internal Medicine Nephrology
DX: N12 Tubulo-interstitial nephritis, not specified as acute or chronic (principal); F11.20 Opioid dependence, uncomplicated; N11.1 Chronic obstructive pyelonephritis; N17.9 Acute kidney failure, unspecified; R00.1 Bradycardia, unspecified; G25.81 Restless legs syndrome; E11.40 Type 2 diabetes mellitus with diabetic neuropathy, unspecified; D50.9 Iron deficiency anemia, unspecified; I48.91 Unspecified atrial fibrillation; E03.9 Hypothyroidism, unspecified; G47.33 Obstructive sleep apnea (adult) (pediatric); R10.9 Unspecified abdominal pain; M79.7 Fibromyalgia; K74.69 Other cirrhosis of liver; N18.2 Chronic kidney disease, stage 2 (mild); D63.1 Anemia in chronic kidney disease; I12.9 Hypertensive chronic kidney disease with stage 1 through stage 4 chronic kidney disease, or unspecified chronic kidney disease; Z79.82 Long term (current) use of aspirin; Z79.899 Other long term (current) drug therapy; Z88.8 Allergy status to other drugs, medicaments and biological substances; Z88.5 Allergy status to narcotic agent; Z88.7 Allergy status to serum and vaccine; E53.8 Deficiency of other specified B group vitamins; E78.5 Hyperlipidemia, unspecified; K21.9 Gastro-esophageal reflux disease without esophagitis; M19.90 Unspecified osteoarthritis, unspecified site; J45.909 Unspecified asthma, uncomplicated; Z87.442 Personal history of urinary calculi

== ENCOUNTER → 2019-05-23 | Outpatient (REF) | payer MEDICARE, BC ==
[~2019-05-23] MED LIST changes: +CEFD300CAP PO; +LEVO250T12 PO; +MAGN400T PO
== END ==
LOC: M LAB REF 17:01
PROVIDERS: ATTEND Internal Medicine Nephrology
DX: N39.0 Urinary tract infection, site not specified (principal)

== ENCOUNTER → 2019-08-30 | Outpatient (REF) | payer MEDICARE, BC ==
[~2019-08-30] MED LIST changes: -DOXY100T16 PO; +DOXY100T27 PO; -MAGN400T PO; +MAGN400T3 PO; +OMEP-358 PO; -OMEP20TA PO; -OMEP40CA2 PO; +OMEP40CA97 PO
[2019-08-30 18:52] LABS: ALBUMIN 3.3 GM/DL (3.2-5.2); CALCIUM LEVEL 8.4 MG/DL (8.8-10.2); CREATININE FOR GFR 1.1 MG/DL (0.55-1.30); GLOMERULAR FILTRATION RATE 51.5 (>39); POTASSIUM SERUM 4.7 MEQ/L (3.5-5.1)
== END ==
LOC: M LAB REF 17:10
PROVIDERS: ATTEND Internal Medicine Nephrology
DX: N18.3 Chronic kidney disease, stage 3 (moderate) (principal); E11.22 Type 2 diabetes mellitus with diabetic chronic kidney disease

== ENCOUNTER 2019-10-08 14:34 | Emergency (ER) | payer MEDICARE, BC ==
[~2019-10-08] VITALS: Ht 165.1 cm; Wt 80.7 kg
[~2019-10-08 14:34] MED LIST changes: -ROPI0.5T PO; +ROPI0.5T3 PO; -ROPI1TAB PO; +ROPI1TAB3 PO; -TRAZ-163 PO; +TRAZ-257 PO
--- NOTE | 2019-10-08 15:24 | REP ---
Clinical: Altered mental status. Comparison: 12/20/2017 . Findings: Age-related atrophy and microvascular ischemic changes are appreciated. The ventricles and sulci are symmetric. Jain-white differentiation is maintained. There is no evidence for acute intracranial hemorrhage, mass/mass effect, pathology or infarction. No extra-axial fluid collection. Calvarium is intact. Paranasal sinuses and mastoid air cells are clear. Impression: Age related atrophy and microvascular ischemic changes. No acute intracranial hemorrhage, infarction, or mass/mass effect. Electronically Signed by Esa Bolanos MD 10/08/2019 03:16 P
--- NOTE | 2019-10-08 15:25 | REP ---
Clinical: altered mental status. Comparison: 04/01/2019 Findings: The mediastinum and cardiac silhouette are stable and within normal limits for portable technique. Loop recorder overlies the cardiac silhouette. The lung scott are clear without acute consolidation, effusion, or pneumothorax. Skeletal structures are intact. Impression: No acute cardiopulmonary process appreciated. Electronically Signed by Esa Bolanos MD 10/08/2019 03:17 P
[2019-10-08] MEDS ORDERED: LORazepam 2 MG/ML VIAL (J2060) IV ONE (15:30)
[2019-10-08 15:39] LABS: BASO % 0.2 % (0.0-1.0); EOS # 0.1 10^3/uL (0.0-0.5); EOS % 1.7 % (0.0-3.0); HEMATOCRIT 35.1 % (36.0-47.0); HEMOGLOBIN 11.5 g/dl (12.0-15.5); LYMPH # 1.9 10^3/uL (1.5-5.0); LYMPH % 35.8 % (24.0-44.0); MEAN CORPUSCULAR HEMOGLOBIN 29.9 pg (27.0-33.0); MEAN CORPUSCULAR HGB CONC 32.8 g/dl (32.0-36.5); MEAN CORPUSCULAR VOLUME 91.4 fl (80.0-96.0); MONO # 0.5 10^3/uL (0.0-0.8); MONO % 8.6 % (0.0-5.0); NEUTROPHILS # 2.8 10^3/uL (1.5-8.5); NEUTROPHILS % 53.3 % (36.0-66.0); PLATELET COUNT, AUTOMATED 141 10^3/uL (150-450); RED BLOOD COUNT 3.84 10^6/uL (4.00-5.40); WHITE BLOOD COUNT 5.3 10^3/uL (4.0-10.0)
[2019-10-08 16:12] LABS: ALBUMIN 3.6 GM/DL (3.2-5.2); ALT/SGPT 20 U/L (12-78); BILIRUBIN,DIRECT 0.2 MG/DL (0.0-0.2); BILIRUBIN,TOTAL 0.4 MG/DL (0.2-1.0); BLOOD UREA NITROGEN 14 MG/DL (7-18); CALCIUM LEVEL 8.7 MG/DL (8.8-10.2); CARBON DIOXIDE LEVEL 26 MEQ/L (21-32); CHLORIDE LEVEL 110 MEQ/L (98-107); CK-MB VALUE MASS 2.1 NG/ML (<3.6); CPK CREATINE PHOSPHOKINASE 79 U/L (26-192); CREATININE FOR GFR 1.03 MG/DL (0.55-1.30); GLOMERULAR FILTRATION RATE 55.6 (>39); GLUCOSE, FASTING 92 MG/DL (70-100); MB/CK RELATIVE INDEX 2.66 (< OR =4); POTASSIUM SERUM 4.2 MEQ/L (3.5-5.1); SODIUM LEVEL 142 MEQ/L (136-145); TOTAL PROTEIN 6.6 GM/DL (6.4-8.2); TROPONIN I < 0.02 NG/ML (< 0.10)
[2019-10-08] MEDS ORDERED: PANT20TA2 PO (16:13)
[2019-10-08 16:30] VITALS: BP 183/73
--- NOTE | 2019-10-10 05:39 | ECGEPIP ---
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
[2019-10-10] MEDS ORDERED: LISI-538 PO (10:11)
[2019-10-10] MEDS ORDERED: OXYC30TA72 PO (10:11)
[2019-10-10] MEDS ORDERED: PEPC1TAB5 PO (10:13)
== END 2019-10-08 17:01 | disposition home or self-care (01) ==
LOC: M ED 14:34
DX: F44.9 Dissociative and conversion disorder, unspecified (principal); F41.0 Panic disorder [episodic paroxysmal anxiety]; I49.5 Sick sinus syndrome; I10 Essential (primary) hypertension; K21.9 Gastro-esophageal reflux disease without esophagitis; K76.0 Fatty (change of) liver, not elsewhere classified; G47.30 Sleep apnea, unspecified; G25.81 Restless legs syndrome; F17.210 Nicotine dependence, cigarettes, uncomplicated; Z88.7 Allergy status to serum and vaccine; Z88.5 Allergy status to narcotic agent; Z88.8 Allergy status to other drugs, medicaments and biological substances; Z91.048 Other nonmedicinal substance allergy status; Z79.82 Long term (current) use of aspirin; Z79.891 Long term (current) use of opiate analgesic; Z79.899 Other long term (current) drug therapy
CPT/HCPCS: 70450; 71045; 80048; 80076; 82550; 82553; 84443; 84484; 85025; 93005; 93041; 94760; 96374; 99285; J2060

== ENCOUNTER 2019-10-26 19:40 | Emergency (ER) | payer MEDICARE, BC ==
[~2019-10-26] VITALS: Ht 165.1 cm; Wt 77.3 kg
[~2019-10-26 19:40] MED LIST changes: +OXYC30TA72 PO; +PANT20TA2 PO; +PEPC1TAB5 PO
[2019-10-26] MEDS ORDERED: LASI20TA3 PO (19:48)
[2019-10-26 21:40] LABS: BASO % 0.7 % (0.0-1.0); EOS # 0.1 10^3/uL (0.0-0.5); EOS % 2.2 % (0.0-3.0); HEMATOCRIT 34.5 % (36.0-47.0); HEMOGLOBIN 11.2 g/dl (12.0-15.5); LYMPH # 1.7 10^3/uL (1.5-5.0); LYMPH % 37.6 % (24.0-44.0); MEAN CORPUSCULAR HEMOGLOBIN 30.3 pg (27.0-33.0); MEAN CORPUSCULAR HGB CONC 32.5 g/dl (32.0-36.5); MEAN CORPUSCULAR VOLUME 93.2 fl (80.0-96.0); MONO # 0.4 10^3/uL (0.0-0.8); MONO % 8.9 % (0.0-5.0); NEUTROPHILS # 2.3 10^3/uL (1.5-8.5); NEUTROPHILS % 50.4 % (36.0-66.0); PLATELET COUNT, AUTOMATED 161 10^3/uL (150-450); WHITE BLOOD COUNT 4.6 10^3/uL (4.0-10.0)
[2019-10-26 22:00] LABS: ERYTHROCYTE SEDIMENTATION RATE 24 mm/hr (0-30)
[2019-10-26 22:24] LABS: ALBUMIN 3.6 GM/DL (3.2-5.2); ALT/SGPT 22 U/L (12-78); BILIRUBIN,TOTAL 0.3 MG/DL (0.2-1.0); BLOOD UREA NITROGEN 17 MG/DL (7-18); C REACTIVE PROTEIN QUANTITATIV < 0.30 MG/DL (0.00-0.30); CALCIUM LEVEL 8.7 MG/DL (8.8-10.2); CARBON DIOXIDE LEVEL 25 MEQ/L (21-32); CHLORIDE LEVEL 113 MEQ/L (98-107); CREATININE FOR GFR 1.12 MG/DL (0.55-1.30); GLOMERULAR FILTRATION RATE 50.5 (>39); GLUCOSE, FASTING 106 MG/DL (70-100); POTASSIUM SERUM 3.9 MEQ/L (3.5-5.1); SODIUM LEVEL 143 MEQ/L (136-145); TOTAL PROTEIN 6.7 GM/DL (6.4-8.2)
[2019-10-26 22:52] VITALS: BP 150/73
--- NOTE | 2019-10-27 18:44 | ECGEPIP ---
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
== END 2019-10-26 22:53 | disposition home or self-care (01) ==
LOC: M ED 19:40
DX: H57.11 Ocular pain, right eye (principal); I48.91 Unspecified atrial fibrillation; I10 Essential (primary) hypertension; E11.9 Type 2 diabetes mellitus without complications; E78.5 Hyperlipidemia, unspecified; K21.9 Gastro-esophageal reflux disease without esophagitis; G25.81 Restless legs syndrome; G47.30 Sleep apnea, unspecified; J44.9 Chronic obstructive pulmonary disease, unspecified; F41.1 Generalized anxiety disorder; Z88.5 Allergy status to narcotic agent; Z88.7 Allergy status to serum and vaccine; Z88.8 Allergy status to other drugs, medicaments and biological substances; Z91.048 Other nonmedicinal substance allergy status; Z79.82 Long term (current) use of aspirin; Z79.891 Long term (current) use of opiate analgesic; Z79.899 Other long term (current) drug therapy

== ENCOUNTER 2019-11-12 12:16 | Inpatient (IN) | payer MEDICARE, BC ==
[~2019-11-12] VITALS: Ht 165.1 cm; Wt 78.2 kg
[~2019-11-12 12:16] MED LIST changes: +LASI20TA3 PO; +lisinopriL 20 MG TAB PO SCH
[2019-11-12] MEDS ORDERED: NS 1,000 ML IV SCH (12:38)
[2019-11-12] MEDS ORDERED: ONDANSETRON 4MG/2ML VIAL (J2405) IV ONE (12:45)
[2019-11-12] MEDS ORDERED: MORPHINE 4 MG/ML 1ML VIAL/SYRINGE (J2270) IV ONE (12:45)
[2019-11-12] MEDS ORDERED: BISACODYL 10 MG SUPP PR ONE (12:45)
[2019-11-12 13:57] LABS: BASO % 0.2 % (0.0-1.0); EOS # 0.1 10^3/uL (0.0-0.5); EOS % 0.7 % (0.0-3.0); HEMATOCRIT 36.8 % (36.0-47.0); HEMOGLOBIN 12.1 g/dl (12.0-15.5); LYMPH # 0.5 10^3/uL (1.5-5.0); LYMPH % 6.1 % (24.0-44.0); MEAN CORPUSCULAR HEMOGLOBIN 30.3 pg (27.0-33.0); MEAN CORPUSCULAR HGB CONC 32.9 g/dl (32.0-36.5); MEAN CORPUSCULAR VOLUME 92.2 fl (80.0-96.0); MONO # 0.3 10^3/uL (0.0-0.8); MONO % 3.5 % (0.0-5.0); NEUTROPHILS # 7.9 10^3/uL (1.5-8.5); NEUTROPHILS % 89.2 % (36.0-66.0); PLATELET COUNT, AUTOMATED 167 10^3/uL (150-450); RED BLOOD COUNT 3.99 10^6/uL (4.00-5.40); WHITE BLOOD COUNT 8.8 10^3/uL (4.0-10.0)
[2019-11-12 14:34] LABS: ALBUMIN 3.6 GM/DL (3.2-5.2); BILIRUBIN,DIRECT 0.3 MG/DL (0.0-0.2); BILIRUBIN,TOTAL 0.6 MG/DL (0.2-1.0); CALCIUM LEVEL 9.3 MG/DL (8.8-10.2); CREATININE FOR GFR 1.19 MG/DL (0.55-1.30); GLOMERULAR FILTRATION RATE 47.1 (>39); POTASSIUM SERUM 4.3 MEQ/L (3.5-5.1); TOTAL PROTEIN 6.7 GM/DL (6.4-8.2)
--- NOTE | 2019-11-12 14:41 | REP ---
Clinical: Epigastric and abdominal pain. Technique: Upright view of the chest with supine and upright views of the abdomen and pelvis. Findings: Frontal upright view of the chest demonstrates no acute cardiopulmonary process or free air below the diaphragm to suspect pneumoperitoneum. Supine and upright views of the abdomen and pelvis demonstrate nonspecific bowel gas pattern without obstruction or perforation. Ostomy identified overlying the left lower abdomen. No organomegaly. Skeletal structures demonstrate degenerative changes. No subcutaneous granulomata suggest and in the bilateral gluteal regions. Impression: Nonspecific bowel gas pattern. Ostomy in the left lower abdomen. Electronically Signed by Esa Bolanos MD 11/12/2019 02:33 P
--- NOTE | 2019-11-12 15:25 | HPEPDOC ---
[facility] Medical History & Physical Date of Admission Nov 12, 2019 Date of Service: Nov 12, 2019 History and Physical CHIEF COMPLAINT: Abdominal pain HISTORY OF PRESENT ILLNESS: 74 yo female for several day history of worsening abdominal pain, mostly in left lower quadrant, worsens with movement, rates as 9/10. Today she developed nausea with vomiting - one episodes she describes as bilious. Denies sick contacts, diarrhea, chest pain, shortness of breath, fevers/chills. Recently had a PPM placed in [place] with Dr. Rousseau. 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 ALLERGIES: Please see below. REVIEW OF SYSTEMS: Negative except as per HPI. HOME MEDICATIONS: Please see below. PHYSICAL EXAMINATION: VITAL SIGNS: See below General: NAD, lying comfortably in bed HEENT: NC/AT, EOMI Chest: cta b/l, bandage on left anterior chest/sub-clav pocket for recent PPM, minimal purulent drainage Heart: +S1S2, RRR Abd: colostomy in LLQ, +BS, soft Ext: no edema LABORATORY DATA: See below. MICROBIOLOGY: Please see below. ASSESSMENT: 74 yo female with extensive past medical history, recurrent abdominal pain, multiple surgeries, returns for abdominal pain, found to have partial small bowel obstruction. #partial SBO - NG tube in place to suction - pain control - NPO , IV fluids - surgery c/s pending #asymptomatic bacteruria #Recurrent Pyelonephritis with chronic Catheter and urostomy #Chronic obstructive uropathy - s/p uretero-ureteral loop stricture - Chronic left nephroureteral catheter in place #Sinus Bradycardia - s/p recent PPM in [place] - Dr. Hurd #CKD - grossly at baseline, IV fluids as above #Chronic anemia - ferrous sulfate #opiod dependence #Diabetes - NPO at this time #RLS/fibromyalgia - lyrica, requip, trazodone, metaxalone #Hypothyroid - synthroid #RUTHANN #HTN - norvasc, lisinopril #GERD - protonix #Adrenal adenoma #Cirrhosis of liver with Splenomegaly - chronic as seen in CT - no clinical symptoms #DVT prophylaxis - mechanical Vital Signs Vital Signs Date Time Temp Pulse Resp B/P (MAP) Pulse Ox O2 Delivery O2 Flow Rate FiO2 11/12/19 13:45 75 18 134/59 (84) 94 Room Air 11/12/19 12:31 98.6 Laboratory Data Labs 24H Laboratory Tests 2 11/12/19 13:34: Urine Color YELLOW, Urine Appearance CLOUDYH, Urine pH 5.0, Urine Specific [place] 1.010, Urine Protein NEGATIVE, Urine Glucose (UA) NEGATIVE, Urine Ketones NEGATIVE, Urine Blood NEGATIVE, Urine Nitrite POSITIVEH, Urine Bilirubin NEGATIVE, Urine Urobilinogen 0.2, Urine Leukocyte Esterase 3+H, Urine WBC (Auto) TNTCH, Urine RBC (Auto) 18H, Urine Hyaline Casts (Auto) 5, Urine Bacteria (Auto) 3+H, Urine Squamous Epithelial Cells 1, Urine Sperm (Auto) 11/12/19 13:46: Immature Granulocyte % (Auto) 0.3, Neutrophils (%) (Auto) 89.2H, Lymphocytes (%) (Auto) 6.1L, Monocytes (%) (Auto) 3.5, Eosinophils (%) (Auto) 0.7, Basophils (%) (Auto) 0.2, Neutrophils # (Auto) 7.9, Lymphocytes # (Auto) 0.5L, Monocytes # (Auto) 0.3, Eosinophils # (Auto) 0.1, Basophils # (Auto) 0.0, Nucleated Red Blood Cells % (auto) 0.0, Anion Gap 5L, Glomerular Filtration Rate 47.1, Calcium Level 9.3, Total Bilirubin 0.6, Direct Bilirubin 0.3H, Aspartate Amino Transf (A ST/SGOT) 26, Alanine Aminotransferase (ALT/SGPT) 23, Alkaline Phosphatase 104, Total Protein 6.7, Albumin 3.6, Albumin/Globulin Ratio 1.16, Lipase 62L CBC/BMP Laboratory Tests 11/12/19 13:46 Microbiology Microbiology 11/12/19 Urine Culture, Received Pending Home Medications Scheduled Amlodipine Besylate (Amlodipine Besylate) 5 Mg Tablet, 5 MG PO DAILY Aspirin (Aspirin EC) 81 Mg Tabec, 81 MG PO QHS Cyanocobalamin (Vitamin B-12) (Vitamin B-12) 1,000 Mcg Tab, 1,000 MCG PO DAILY Diphenhydramine HCl (Diphenhydramine HCl) 25 Mg Capsule, 50 MG PO QHS Ferrous Sulfate (Ferrous Sulfate) 325 Mg Tab, 325 MG PO DAILY Levothyroxine Sodium (Levothyroxine Sodium) 50 Mcg Tab, 50 MCG PO DAILY Lisinopril (Lisinopril) 20 Mg Tablet, 20 MG PO DAILY Magnesium Oxide (Magnesium Oxide) 400 Mg Tablet, 400 MG PO BID Metaxalone (Skelaxin) 800 Mg Tab, 800 MG PO TID Oxycodone HCl (Oxycodone HCl ER) 20 Mg Tab, 20 MG PO BID TAKES AT 0900/2300 Oxycodone HCl (Oxycodone HCl) 10 Mg Tablet, 10 MG PO BID TAKES AT 1500/0300 Pantoprazole Sodium (Pantoprazole Sodium) 40 Mg Tablet.dr, 40 MG PO QHS Pravastatin Sodium (Pravastatin Sodium) 20 Mg Tab, 20 MG PO DAILY Pregabalin (Lyrica) 100 Mg Cap, 100 MG PO TID Ropinirole HCl (Ropinirole HCl) 1 Mg Tab, 1 MG PO BID TAKES AT 1600 AND QHS Trazodone HCl (Trazodone HCl) 100 Mg Tablet, 100 MG PO QHS Scheduled PRN Furosemide (Lasix) 20 Mg Tablet, 20 MG PO QHS PRN for EDEMA Lidocaine (Lidocaine) 5 % Pad, 3 PATCH TOP DAILY PRN for PAIN USES ON BACK AND NECK Nitroglycerin (Nitroglycerin) 0.4 Mg Sub, 0.4 MG SL NITRO PRN for CHEST PAIN Polyethylene Glycol 3350 (Miralax) 119 Gm Powder, 17 GM PO BID PRN for CONSTIP ATION Allergies Coded Allergies: pneumococcal vaccine (Verified Allergy, Intermediate, hives, 10/10/19) Corticosteroids (Glucocorticoids) (Verified Allergy, Unknown, 10/10/19) codeine (Verified Allergy, Unknown, 10/10/19) pt has had morphine in the past influenza virus vacc trivalent, spl (Verified Adverse Reaction, Severe, coma, 10/10/19) influenza virus vaccine tv 2013-14(18-49 yrs),rcmb (Verified Adverse Reaction, Severe, flu vaccine - coma, 10/10/19) TAPE (Verified Adverse Reaction, Mild, BLISTERS, 10/10/19) clonidine (Verified Adverse Reaction, Mild, faint, 10/10/19) quinapril (Verified Adverse Reaction, Mild, passed out, 10/10/19) zolpidem (Verified Adverse Reaction, Mild, sleep walking, 10/10/19) A-FIB/CHADSVASC A-FIB History Current/History of A-Fib/PAF?: No Current PO Anticoag Therapy: No FRENCH SHINE MD Nov 12, 2019 15:25
[2019-11-12 16:02] VITALS: BP 132/93
[2019-11-12] MEDS ORDERED: DIPH25CA32 PO (16:11)
[2019-11-12] MEDS ORDERED: PANT40TA3 PO (16:11)
[2019-11-12] MEDS ORDERED: AMLO5TAB6 PO (16:11)
[2019-11-12] MEDS ORDERED: OXYC10TA12 PO (16:11)
[2019-11-12] MEDS: MORPHINE 4 MG/ML 1ML VIAL/SYRINGE (J2270) IV PRN (16:16)
[2019-11-12] MEDS: NS 1,000 ML IV SCH ×2 (16:16→22:20)
[2019-11-12] MEDS ORDERED: FUROSEMIDE 20 MG TAB PO PRN (16:30)
[2019-11-12] MEDS: rOPINIRole 1MG TAB PO SCH ×2 (16:59→20:55)
[2019-11-12] MEDS: CYANOCOBALAMIN 500 MCG TAB PO SCH (16:59)
[2019-11-12] MEDS: PREGABALIN 100 MG CAP (LYRICA) PO SCH ×2 (17:00→20:55)
[2019-11-12] MEDS: amLODIPine 5 MG TAB PO SCH (17:00)
[2019-11-12] MEDS: METAXALONE 800 MG TABLET PO SCH ×2 (18:14→20:55)
[2019-11-12] MEDS: ASPIRIN 81 MG ENTERIC TAB PO SCH (20:54)
[2019-11-12] MEDS: diphenhydrAMINE 25 MG CAP PO SCH (20:55)
[2019-11-12] MEDS: traZODone 100 MG TAB PO SCH (20:55)
[2019-11-12] MEDS: MAGNESIUM OXIDE 400 MG TAB (MAG-OX) PO SCH (20:55)
[2019-11-12] MEDS: PANTOPRAZOLE 40MG TAB (PROTONIX) PO SCH (20:55)
[2019-11-12] MEDS: PRAVASTATIN 20 MG TAB PO SCH (20:56)
[2019-11-12] MEDS: oxyCODONE 20 MG CR TAB PO SCH (20:56)
[2019-11-12] MEDS: oxyCODONE 5MG TAB PO SCH (20:57)
[2019-11-12] MEDS: BACITRACIN OINTMENT 30GM TUBE TOP SCH (20:57)
[2019-11-12 22:00] VITALS: BP 102/49
[2019-11-13 00:12] VITALS: BP 117/63
[2019-11-13] MEDS: MORPHINE 4 MG/ML 1ML VIAL/SYRINGE (J2270) IV PRN ×3 (02:04→17:09)
[2019-11-13] MEDS: LEVOTHYROXINE 50MCG TABLET (0.05MG) PO SCH (05:38)
--- NOTE | 2019-11-13 05:41 | ECGEPIP ---
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
[2019-11-13 05:53] LABS: HEMATOCRIT 34.6 % (36.0-47.0); MEAN CORPUSCULAR HEMOGLOBIN 30.6 pg (27.0-33.0); MEAN CORPUSCULAR HGB CONC 31.8 g/dl (32.0-36.5); MEAN CORPUSCULAR VOLUME 96.1 fl (80.0-96.0); PLATELET COUNT, AUTOMATED 137 10^3/uL (150-450); WHITE BLOOD COUNT 6.9 10^3/uL (4.0-10.0)
[2019-11-13 06:00] VITALS: BP 120/62
[2019-11-13 06:21] LABS: ALBUMIN 2.8 GM/DL (3.2-5.2); BILIRUBIN,TOTAL 0.9 MG/DL (0.2-1.0); CREATININE FOR GFR 1.77 MG/DL (0.55-1.30); GLOMERULAR FILTRATION RATE 29.8 (>39); POTASSIUM SERUM 4.4 MEQ/L (3.5-5.1); TOTAL PROTEIN 5.8 GM/DL (6.4-8.2)
--- NOTE | 2019-11-13 09:08 | REP ---
Clinical: Abdominal pain and small bowel obstruction. Comparison: 11/12/2019 Technique: Upright view of the chest with supine and upright views of the abdomen and pelvis. Findings: Frontal upright view of the chest demonstrates no acute cardiopulmonary process or free air below the diaphragm to suspect pneumoperitoneum. A nasogastric tube is identified in satisfactory position. Supine and upright views of the abdomen and pelvis demonstrate nonspecific bowel gas pattern without obstruction or perforation. Ostomy overlies the left lower abdomen. No organomegaly. No abnormal calcifications. Skeletal structures normal for age. Prior cholecystectomy. Impression: Nonspecific bowel gas pattern. Electronically Signed by Esa Bolanos MD 11/13/2019 08:59 A
[2019-11-13] MEDS: LIDOCAINE 5% (LIDODERM) PATCH TOP PRN (09:16)
[2019-11-13] MEDS: FERROUS SULFATE 325MG TAB PO SCH (09:16)
[2019-11-13] MEDS: MAGNESIUM OXIDE 400 MG TAB (MAG-OX) PO SCH ×2 (09:16→21:50)
[2019-11-13] MEDS: oxyCODONE 5MG TAB PO SCH ×2 (09:18→21:51)
[2019-11-13] MEDS: CYANOCOBALAMIN 500 MCG TAB PO SCH (09:18)
[2019-11-13] MEDS: oxyCODONE 20 MG CR TAB PO SCH ×2 (09:18→21:50)
[2019-11-13] MEDS: PREGABALIN 100 MG CAP (LYRICA) PO SCH ×3 (09:18→21:49)
[2019-11-13] MEDS: BACITRACIN OINTMENT 30GM TUBE TOP SCH ×2 (09:19→21:51)
[2019-11-13] MEDS: amLODIPine 5 MG TAB PO SCH (09:19)
[2019-11-13] MEDS: METAXALONE 800 MG TABLET PO SCH ×3 (09:19→21:49)
[2019-11-13] MEDS: DOCUSATE SOD LIQ 100MG/10ML UDC GT SCH ×2 (09:36→21:51)
--- NOTE | 2019-11-13 09:36 | CR ---
DATE OF CONSULTATION: 11/12/2019 The patient presents the emergency room with recurrence of her abdominal distension, abdominal pain, and left lower quadrant pain next to her ostomy and essentially had some nausea and vomiting. She has had bilious vomiting and multiple episodes of obstruction in the past although there had been several episodes where she has had some recurring pyelonephritis with chronic infections with possible ileus associated with these episodes in the past as well but typically she has improvement with NG tube placement and nonoperative means. She states that her ostomy has a few hard pieces of stool within it but otherwise no other significant output. Past medical history is significant for history of chronic pyelonephritis with a ureterostomy, history of chronic obstructive uropathy with bilateral hydronephrosis, history of sinus bradycardia with pacemaker placement, history of atrial fibrillation, history of chronic kidney disease, chronic anemia, abdominal pain with opioid dependence, ureterostomy and colostomy, diabetes, RLS, hypothyroidism, obstructive sleep apnea, hypertension, gastroesophageal reflux disease, adrenal adenoma, fibromyalgia, cirrhosis of liver with splenomegaly. Medications include the following: amlodipine, aspirin, vitamin B12, Benadryl, iron, Synthroid, lisinopril, magnesium, Skelaxin, oxycodone, pantoprazole, pravastatin, pregabalin, ropinirole, trazodone and some as needed Lasix, lidocaine, nitroglycerin and MiraLAX. ALLERGIES: MULTIPLE. PHYSICAL EXAMINATION: Reveals a 74-year-old who looks stated age. HEENT is unremarkable. Neck: Supple without adenopathy. Lungs: Clear anteriorly. Heart is regular. 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 She has a stenotic colostomy, but in general no other significant abnormality and no other generalized peritoneal signs. IMPRESSION AND PLAN: NG tube is in place putting out some bilious fluid. X-ray does not reveal a significant amount of air fluid levels, although her stomach did have a good size air-fluid level all consistent with obstructing looking picture or possibly ileus. I do feel that aggressively treating her with NG tube decompression nothing by mouth for her distension is very warranted. Operative intervention I would feel that that is not emergent at this time. I do feel that we need to see how her followup KUB in the morning what it shows and we will see what her white count does. If she has increasing pain, increasing discomfort or problems with persistent distension without improvement, then CT abdomen and pelvis is warranted and then we will determine our next course of action.
--- NOTE | 2019-11-13 09:41 | IPN ---
DATE: 11/13/2019 Overall, the patient is stable overnight. She did have a low grade fever initially when she came in yesterday afternoon that was up to 100, but her white count has been stable. I do feel that there still may be some component of ileus associated with infection, especially with her creatinine bumping a bit today, but at this point, given her significant improvement of overall distension that she feels she still has some pain at the ostomy site but it is less than it was yesterday and the amount of distension at the ostomy site is much better than it was as well. I am able to reduce the parastomal hernia significantly and I feel that I might have reduced it completely, obviously it is good enough size that recurs right off and she also has some stool in the bag, but I am not seeing a lot of air at this point. IMPRESSION/PLAN: The patient's abdominal distension has improved. X-rays look much better. White count is normal. I do feel that all these tend to show an improvement overall of the current situation given the ability to reduce the parastomal hernia itself I do feel that it is reasonable to continue her on this course. Supportive care as per the hospitalist. It sounds as though she has some chronic constipation issues associated with all of her medications and I will make sure that she is on some stool softeners via the nasogastric (NG) tube. Otherwise, we will see how she is doing in the morning and determine our next course of action depending on how she is doing.
[2019-11-13] MEDS: NS 1,000 ML IV SCH (11:13)
[2019-11-13 14:00] VITALS: BP 110/49
[2019-11-13] MEDS: rOPINIRole 1MG TAB PO SCH ×2 (16:36→21:49)
--- NOTE | 2019-11-13 16:56 | IPNPDOC ---
Subjective Date Seen The patient was seen on 11/13/19. Subjective Chief Complaint/HPI Uzma is c/o abd pain not controlled with morphine q8. Her abdomen is less distended. She has some fecal material in her ostomy, and urostomy bag has urine. Objective Physical Examination General Exam: Positive: Alert, Mild Distress Eye Exam: Negative: Sclera icteric ENT Exam: Negative: Mucous membr. moist/pink Neck Exam: Negative: Supple Chest Exam: Positive: Clear to auscultation Abdomen Exam: Positive: Normal bowel sounds, Soft; Negative: Tenderness Extremity Exam: Negative: Clubbing, Cyanosis, Edema Skin Exam: Negative: Rash Neuro Exam: Positive: Normal Speech Psych Exam: Negative: Mood NL Assessment /Plan Assessment # Partial SBO - NG tube in place to suction - pain control, change morphine 2 mg q 3 prn - NPO , IV fluids - d/w Dr. 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 Hurd #CKD - grossly at baseline, IV fluids as above #Chronic anemia - ferrous sulfate #opiod dependence #Diabetes - NPO status #RLS/fibromyalgia - lyrica, requip, trazodone, metaxalone #Hypothyroid - synthroid #RUTHANN #HTN - norvasc, lisinopril #GERD - protonix #Adrenal adenoma #Cirrhosis of liver with Splenomegaly - chronic as seen in CT - no clinical symptoms #DVT prophylaxis - mechanical Plan/VTE VTE Prophylaxis Ordered?: Yes VTE Exclusion Mechanical Proph: N/A:VTE Prophy Ordered VTE Exclusion Pharmacological: N/A:VTE Prophy Ordered VS, I&O, 24H, Fishbone Vital Signs/I&O Vital Signs Date Time Temp Pulse Resp B/P (MAP) Pulse Ox O2 Delivery O2 Flow Rate FiO2 11/13/19 14:00 99.0 57 17 110/49 (69) 94 Room Air 11/13/19 06:00 2.0 I&O- Last 24 Hours up to 6 AM 11/13/19 06:00 Intake Total 1330 ml Output Total 875 ml Balance 455 ml Laboratory Data 24H LABS Laboratory Tests 2 11/13/19 05:20: Nucleated Red Blood Cells % (auto) 0.0, Anion Gap 6L, Glomerular Filtration Rate 29.8L, Calcium Level 8.0L, Total Bilirubin 0.9, Aspartate Amino Transf (AST/SGOT) 23, Alanine Aminotransferase (ALT/SGPT) 23, Alkaline Phosphatase 88, Total Protein 5.8L, Albumin 2.8#L, Albumin/Globulin Ratio 0.93L CBC/BMP Laboratory Tests 11/13/19 05:20 Microbiology Microbiology 11/12/19 Urine Culture, Received Pending DHARA ESPINOSA MD Nov 13, 2019 16:56
[2019-11-13] MEDS: PRAVASTATIN 20 MG TAB PO SCH (21:49)
[2019-11-13] MEDS: ASPIRIN 81 MG ENTERIC TAB PO SCH (21:49)
[2019-11-13] MEDS: traZODone 100 MG TAB PO SCH (21:49)
[2019-11-13] MEDS: PANTOPRAZOLE 40MG TAB (PROTONIX) PO SCH (21:49)
[2019-11-13] MEDS: diphenhydrAMINE 25 MG CAP PO SCH (21:49)
[2019-11-13 22:00] VITALS: BP 120/50
[2019-11-14] MEDS ORDERED: oxyCODONE 5MG TAB PO ONE (04:30)
[2019-11-14] MEDS: LEVOTHYROXINE 50MCG TABLET (0.05MG) PO SCH (05:58)
[2019-11-14 06:00] VITALS: BP 122/52
[2019-11-14] MEDS: DOCUSATE SOD LIQ 100MG/10ML UDC GT SCH (08:19)
[2019-11-14] MEDS: CYANOCOBALAMIN 500 MCG TAB PO SCH (08:19)
[2019-11-14] MEDS: FERROUS SULFATE 325MG TAB PO SCH (08:20)
[2019-11-14] MEDS: MAGNESIUM OXIDE 400 MG TAB (MAG-OX) PO SCH ×2 (08:21→21:53)
[2019-11-14] MEDS: oxyCODONE 5MG TAB PO SCH ×2 (08:21→21:56)
[2019-11-14] MEDS: amLODIPine 5 MG TAB PO SCH (08:21)
[2019-11-14] MEDS: PREGABALIN 100 MG CAP (LYRICA) PO SCH ×3 (08:22→21:53)
[2019-11-14] MEDS: BACITRACIN OINTMENT 30GM TUBE TOP SCH ×2 (08:23→21:55)
[2019-11-14] MEDS: METAXALONE 800 MG TABLET PO SCH ×3 (08:37→21:53)
[2019-11-14] MEDS: oxyCODONE 20 MG CR TAB PO SCH ×2 (08:37→21:55)
[2019-11-14 08:59] LABS: HEMATOCRIT 31.2 % (36.0-47.0); HEMOGLOBIN 10.1 g/dl (12.0-15.5); MEAN CORPUSCULAR HGB CONC 32.4 g/dl (32.0-36.5); MEAN CORPUSCULAR VOLUME 95.7 fl (80.0-96.0); PLATELET COUNT, AUTOMATED 115 10^3/uL (150-450); RED BLOOD COUNT 3.26 10^6/uL (4.00-5.40); WHITE BLOOD COUNT 4.5 10^3/uL (4.0-10.0)
[2019-11-14 09:24] LABS: CALCIUM LEVEL 8.2 MG/DL (8.8-10.2); CREATININE FOR GFR 1.24 MG/DL (0.55-1.30); GLOMERULAR FILTRATION RATE 44.9 (>39); POTASSIUM SERUM 4.3 MEQ/L (3.5-5.1)
--- NOTE | 2019-11-14 09:36 | IPN ---
DATE: 11/14/2019 The patient states that she has had air and stool out of her ostomy. She is no longer having any abdominal pain or discomfort, and her nasogastric (NG) tube output has significantly dropped off. On her physical exam, abdomen is less distended, less tender around the ostomy and no significant peritoneal signs are appreciated. IMPRESSION AND PLAN: The patient has resolving ileus/partial obstruction. At this point, my recommendation is to have her increase her diet to clear liquids today. If she tolerates that today, she could have a regular diet tomorrow. Discontinue NG tube today and we will see how she does with tolerating clears. From standpoint of disposition/discharge issues, when she is tolerating regular diet from a surgical standpoint, she can be discharged home. Although, I understand that she still has some ongoing medical issues that are being currently addressed.
[2019-11-14] MEDS: LIDOCAINE 5% (LIDODERM) PATCH TOP PRN (09:38)
[2019-11-14] MEDS: BACTRIM 160MG/800MG DS TAB PO SCH ×2 (12:46→21:54)
[2019-11-14] MEDS: MORPHINE 4 MG/ML 1ML VIAL/SYRINGE (J2270) IM PRN (13:50)
[2019-11-14 14:00] VITALS: BP 91/41
[2019-11-14 14:05] VITALS: BP 94/40
--- NOTE | 2019-11-14 14:14 | IPNPDOC ---
Subjective Date Seen The patient was seen on 11/14/19. Subjective Chief Complaint/HPI Abd pain mostly focused around ostomy. Has had ostomy output since last night. c/o back pain which usually indicates she has a UTI. Objective Physical Examination General Exam: Positive: Alert, No Acute Distress Eye Exam: Positive: Conjunctiva & lids normal; Negative: Sclera icteric ENT Exam: Negative: Mucous membr. moist/pink Neck Exam: Negative: Supple Chest Exam: Positive: Clear to auscultation Abdomen Exam: Positive: Normal bowel sounds, Soft, Other (ostomy with fecal output, urostomy with clear yellow urine); Negative: Tenderness Extremity Exam: Negative: Clubbing, Cyanosis, Edema Skin Exam: Negative: Rash Neuro Exam: Positive: Normal Speech Psych Exam: Negative: Mood NL Assessment /Plan Assessment # Partial SBO - clears diet - home in next 24 hours if tolerating regular diet # SUPA - resolved - resume lisinopril + lasix at discharge - repeat bmp has returned to normal - discontinue IVFs # ESBL complicated UTI POA # Chronic obstructive uropathy - bactrim ds x 7 days - s/p uretero-ureteral loop stricture - Chronic left nephroureteral catheter in place # SSS s/p recent PPM in [place] - Dr. Hurd #CKD -at baseline # MARIO - ferrous sulfate #opiod dependence #Diabetes - advance to diabetic diet in am #RLS/fibromyalgia - lyrica, requip, trazodone, metaxalone #Hypothyroid - synthroid #RUTHANN #HTN - norvasc, lisinopril #GERD - protonix #Adrenal adenoma #Cirrhosis of liver with Splenomegaly - chronic as seen in CT - no clinical symptoms #DVT prophylaxis - mechanical Plan/VTE VTE Prophylaxis Ordered?: Yes VTE Exclusion Mechanical Proph: N/A:VTE Prophy Ordered VTE Exclusion Pharmacological: N/A:VTE Prophy Ordered VS, I&O, 24H, Fishbone Vital Signs/I&O Vital Signs Date Time Temp Pulse Resp B/P (MAP) Pulse Ox O2 Delivery O2 Flow Rate FiO2 11/14/19 13:50 15 Room Air 11/14/19 08:21 122/52 11/14/19 06:00 97.7 64 100 2.0 I&O- Last 24 Hours up to 6 AM 11/14/19 06:00 Intake Total 0 ml Output Total 1125 ml Balance -1125 ml Laboratory Data 24H LABS Laboratory Tests 2 11/14/19 08:00: Nucleated Red Blood Cells % (auto) 0.0, Anion Gap 7L, Glomerular Filtration Rate 44.9, Calcium Level 8.2L CBC/BMP Laboratory Tests 11/14/19 08:00 Microbiology Microbiology 11/12/19 Urine Culture - Preliminary, Resulted E.coli Esbl DHARA ESPINOSA MD Nov 14, 2019 14:14
[2019-11-14] MEDS ORDERED: ONDANSETRON 4MG/2ML VIAL (J2405) IM PRN (14:15)
[2019-11-14] MEDS: rOPINIRole 1MG TAB PO SCH ×2 (16:37→21:54)
[2019-11-14] MEDS: diphenhydrAMINE 25 MG CAP PO SCH (21:53)
[2019-11-14] MEDS: DOCUSATE SODIUM 100 MG CAP PO SCH (21:54)
[2019-11-14] MEDS: PRAVASTATIN 20 MG TAB PO SCH (21:54)
[2019-11-14] MEDS: PANTOPRAZOLE 40MG TAB (PROTONIX) PO SCH (21:54)
[2019-11-14] MEDS: ASPIRIN 81 MG ENTERIC TAB PO SCH (21:54)
[2019-11-14] MEDS: traZODone 100 MG TAB PO SCH (21:54)
[2019-11-14 22:00] VITALS: BP 121/71
[2019-11-15] MEDS: MORPHINE 4 MG/ML 1ML VIAL/SYRINGE (J2270) IM PRN (05:19)
[2019-11-15 06:00] VITALS: BP 143/70
[2019-11-15] MEDS: LEVOTHYROXINE 50MCG TABLET (0.05MG) PO SCH (06:09)
[2019-11-15 06:16] LABS: HEMATOCRIT 31.6 % (36.0-47.0); HEMOGLOBIN 10.2 g/dl (12.0-15.5); MEAN CORPUSCULAR HEMOGLOBIN 30.5 pg (27.0-33.0); MEAN CORPUSCULAR HGB CONC 32.3 g/dl (32.0-36.5); MEAN CORPUSCULAR VOLUME 94.6 fl (80.0-96.0); PLATELET COUNT, AUTOMATED 132 10^3/uL (150-450); RED BLOOD COUNT 3.34 10^6/uL (4.00-5.40); WHITE BLOOD COUNT 3.8 10^3/uL (4.0-10.0)
[2019-11-15 06:43] LABS: CALCIUM LEVEL 8.7 MG/DL (8.8-10.2); CREATININE FOR GFR 1.09 MG/DL (0.55-1.30); GLOMERULAR FILTRATION RATE 52.1 (>39); POTASSIUM SERUM 4.1 MEQ/L (3.5-5.1)
[2019-11-15] MEDS ORDERED: LIDOCAINE 5% (LIDODERM) PATCH TOP SCH (09:00)
[2019-11-15] MEDS: BACITRACIN OINTMENT 30GM TUBE TOP SCH (09:02)
[2019-11-15] MEDS: oxyCODONE 5MG TAB PO SCH (09:04)
[2019-11-15] MEDS: PREGABALIN 100 MG CAP (LYRICA) PO SCH (09:05)
[2019-11-15] MEDS: oxyCODONE 20 MG CR TAB PO SCH (09:05)
[2019-11-15] MEDS: DOCUSATE SODIUM 100 MG CAP PO SCH (09:05)
[2019-11-15 09:06] VITALS: BP 143/70
[2019-11-15] MEDS: amLODIPine 5 MG TAB PO SCH (09:06)
[2019-11-15] MEDS: CYANOCOBALAMIN 500 MCG TAB PO SCH (09:06)
[2019-11-15] MEDS: FERROUS SULFATE 325MG TAB PO SCH (09:06)
[2019-11-15] MEDS: METAXALONE 800 MG TABLET PO SCH (09:06)
[2019-11-15] MEDS: MAGNESIUM OXIDE 400 MG TAB (MAG-OX) PO SCH (09:06)
[2019-11-15] MEDS: BACTRIM 160MG/800MG DS TAB PO SCH (09:06)
[2019-11-15] MEDS ORDERED: SULF1TAB93 PO (10:55)
--- NOTE | 2019-11-15 11:01 | IPNPDOC ---
Subjective Date Seen The patient was seen on 11/15/19. Subjective Chief Complaint/HPI tolerated clears. c/o pain around ostomy site mostly when she moves around. stool in ostomy bag Objective Physical Examination General Exam: Positive: Alert, No Acute Distress Eye Exam: Positive: Conjunctiva & lids normal; Negative: Sclera icteric ENT Exam: Negative: Mucous membr. moist/pink Neck Exam: Negative: Supple Chest Exam: Positive: Clear to auscultation Abdomen Exam: Positive: Normal bowel sounds, Soft, Tenderness (around ostomy site, likely from parastomal hernias), Other (ostomy with fecal output, urostomy with clear yellow urine) Extremity Exam: Negative: Clubbing, Cyanosis, Edema Skin Exam: Negative: Rash Neuro Exam: Positive: Normal Speech Psych Exam: Negative: Mood NL Assessment /Plan Assessment # Partial SBO - advance to regular diet, home today if tolerating # SUPA - resolved - resume lisinopril + lasix at discharge - repeat bmp has returned to normal - discontinue IVFs # ESBL complicated UTI POA # Chronic obstructive uropathy - bactrim ds x 2/7 days - s/p uretero-ureteral loop stricture - Chronic left nephroureteral catheter in place # SSS s/p recent PPM in [place] - Dr. Hurd #CKD -at baseline # MARIO - ferrous sulfate #opiod dependence #Diabetes - advance to diabetic diet in am #RLS/fibromyalgia - lyrica, requip, trazodone, metaxalone #Hypothyroid - synthroid #RUTHANN #HTN - norvasc, lisinopril #GERD - protonix #Adrenal adenoma #Cirrhosis of liver with Splenomegaly - chronic as seen in CT - no clinical symptoms #DVT prophylaxis - mechanical Plan/VTE VTE Prophylaxis Ordered?: Yes VTE Exclusion Mechanical Proph: N/A:VTE Prophy Ordered VTE Exclusion Pharmacological: N/A:VTE Prophy Ordered VS, I&O, 24H, Fishbone Vital Signs/I&O Vital Signs Date Time Temp Pulse Resp B/P (MAP) Pulse Ox O2 Delivery O2 Flow Rate FiO2 11/15/19 09:34 17 Room Air 11/15/19 09:06 143/70 11/15/19 06:00 97.7 63 97 2.0 I&O- Last 24 Hours up to 6 AM 11/15/19 06:00 Intake Total 1940 ml Output Total 1575 ml Balance 365 ml Laboratory Data 24H LABS Laboratory Tests 2 11/15/19 05:21: Nucleated Red Blood Cells % (auto) 0.0, Anion Gap 3L, Glomerular Filtration Rate 52.1, Calcium Level 8.7L CBC/BMP Laboratory Tests 11/15/19 05:21 Microbiology Microbiology 11/12/19 Urine Culture - Final, Complete E.coli Esbl DHARA ESPINOSA MD Nov 15, 2019 11:01
--- NOTE | 2019-11-15 21:04 | DSES ---
DATE OF ADMISSION: 11/12/2019 DATE OF DISCHARGE: 11/15/2019 DISCHARGE DIAGNOSES: 1. Partial small bowel obstruction, resolved. 2. Acute kidney injury with dehydration, resolved. 3. Chronic kidney disease stage III. 4. Escherichia (E) coli extended-Spectrum beta-Lactamases (ESBL) complicated urinary tract infection (UTI) prior to admission. 5. History of sick sinus syndrome, status post pacemaker placement. 6. Iron deficiency anemia. 7. Opioid dependence. 8. Hypothyroidism. 9. Cirrhosis of the liver with splenomegaly. PROCEDURES PERFORMED DURING THIS HOSPITALIZATION: None. CONSULTANTS ON THIS CASE: Dr. Berman of general surgery. DISPOSITION: The patient is discharged home in stable condition. DISCHARGE DIET: Regular diet. LABORATORIES PENDING AT THE TIME OF DISCHARGE: None. DISCHARGE INSTRUCTIONS: The patient is instructed to resume her regular diet. She is to followup with primary care provider in approximately 1 week. In addition, she should followup with Dr. Berman in approximately 2 to 3 weeks in regard to her parastomal hernias. CONDITION AT DISCHARGE: Improved from admission. RELEVANT LABORATORIES OBTAINED DURING THE PATIENT'S HOSPITALIZATION: Urinalysis was positive for Escherichia (E) coli extended-Spectrum beta-Lactamases (ESBL) on urine culture. White count 3.8, hemoglobin 10.2, hematocrit 31.6, platelet count 132,000. Sodium 138, potassium 4.1, chloride 106, bicarbonate 29, anion gap is 3, BUN 15, creatinine 1, glucose 84, lipase 62. IMAGING STUDIES OBTAINED DURING THE PATIENT'S STAY: Serial abdominal x-rays, which showed partial small bowel obstruction. DISCHARGE MEDICATIONS: : - Bactrim one tablet twice a day for 6 days for treatment of E coli ESBL - amlodipine 5 mg by mouth daily - baby aspirin daily - vitamin B12 1000 mg by mouth daily - Benadryl 50 mg at bedtime - ferrous sulfate 325 mg daily - Lasix 20 mg at bedtime as needed for edema - Synthroid 50 mcg by mouth daily - Lidoderm patch three patches topically daily as needed for pain - Lisinopril 20 mg by mouth daily - Mag oxide 400 mg twice a day - Ciloxan 800 mg by mouth three times a day - nitroglycerin 0.4 mg sublingually as needed for chest pain - oxycodone 30 mg by mouth twice a day - Protonix 40 mg at bedtime - MiraLAX 17 grams as needed for constipation - Pravastatin 20 mg by mouth daily - Lyrica 100 mg three times a day - Requip 1 mg by mouth twice a day - trazodone 100 mg by mouth at bedtime HOSPITAL COURSE: Ms. Miller is a 74-year-old woman who had presented to the hospital with complaints of abdominal pain, mostly left lower quadrant, which she rated as a 9 out of 10. This was associated with nausea and vomiting. She underwent an abdominal x-ray in the emergency department, which was suspicious for a partial small bowel obstruction. Nasogastric tube was placed, and the patient was kept nothing by mouth and admitted to the hospitalist service. Dr. Berman was consulted to see her. The patient was managed conservatively and continued to improve. Serial x-ray showed improvement. The patient was subsequently discontinued from the nasogastric tube and her diet was advanced over the course of 24 hours. She tolerated that quite well and she was discharged home today in stable condition. During the stay, the patient's urinalysis on admission was positive for Escherichia (E) coli extended-Spectrum beta-Lactamases (ESBL) . Initially, she did not complain of any symptoms, but then she started to have costovertebral angle tenderness. Therefore, she was started on oral Bactrim with improvement in her symptoms. A total of 30 minutes was spent completing all discharge paperwork.
== END 2019-11-15 12:50 | disposition home or self-care (01) | DRG 389 ==
LOC: EDSEX 12:16 → M ED 12:16 → EDBD 12:16 → M ED INP 15:18 → ENRESERVDT 15:33 → ENRESERVTM 15:33 → M MSPAV 16:02
PROVIDERS: ADMIT Internal Medicine; ATTEND Internal Medicine
DX: K56.600 Partial intestinal obstruction, unspecified as to cause (principal); N39.0 Urinary tract infection, site not specified; N17.9 Acute kidney failure, unspecified; Z95.0 Presence of cardiac pacemaker; Z93.6 Other artificial openings of urinary tract status; R00.1 Bradycardia, unspecified; I48.91 Unspecified atrial fibrillation; N18.3 Chronic kidney disease, stage 3 (moderate); D50.9 Iron deficiency anemia, unspecified; G89.29 Other chronic pain; R10.9 Unspecified abdominal pain; Z93.3 Colostomy status; E11.9 Type 2 diabetes mellitus without complications; G25.81 Restless legs syndrome; E03.9 Hypothyroidism, unspecified; G47.33 Obstructive sleep apnea (adult) (pediatric); I12.9 Hypertensive chronic kidney disease with stage 1 through stage 4 chronic kidney disease, or unspecified chronic kidney disease; K21.9 Gastro-esophageal reflux disease without esophagitis; D35.00 Benign neoplasm of unspecified adrenal gland; M79.7 Fibromyalgia; K74.60 Unspecified cirrhosis of liver; R16.1 Splenomegaly, not elsewhere classified; R82.71 Bacteriuria; N13.9 Obstructive and reflux uropathy, unspecified; Z79.82 Long term (current) use of aspirin; Z79.891 Long term (current) use of opiate analgesic; Z79.899 Other long term (current) drug therapy; Z88.7 Allergy status to serum and vaccine; Z91.040 Latex allergy status; Z88.5 Allergy status to narcotic agent; Z88.8 Allergy status to other drugs, medicaments and biological substances; Z86.79 Personal history of other diseases of the circulatory system; E86.0 Dehydration; B96.20 Unspecified Escherichia coli [E. coli] as the cause of diseases classified elsewhere

== ENCOUNTER 2019-11-29 11:48 | Inpatient (IN) | payer MEDICARE, BC ==
[~2019-11-29] VITALS: Ht 165.1 cm; Wt 79.0 kg
[~2019-11-29 11:48] MED LIST changes: +DIPH25CA32 PO; +OXYC-1 PO; -OXYC15TA76 PO; +PANT40TA3 PO; +SULF1TAB93 PO; -lisinopriL 20 MG TAB PO SCH
[2019-11-29] MEDS ORDERED: METOCLOPRAMIDE INJ 10MG/2ML VIAL (J2765 PER 1) IV ONE (12:30)
[2019-11-29] MEDS ORDERED: MORPHINE 4 MG/ML 1ML VIAL/SYRINGE (J2270) IV ONE ×2 (12:30→13:45)
[2019-11-29 13:09] LABS: BASO % 0.3 % (0.0-1.0); EOS # 0.1 10^3/uL (0.0-0.5); EOS % 1.2 % (0.0-3.0); HEMATOCRIT 32.6 % (36.0-47.0); HEMOGLOBIN 10.8 g/dl (12.0-15.5); LYMPH % 14.2 % (24.0-44.0); MEAN CORPUSCULAR HEMOGLOBIN 30.4 pg (27.0-33.0); MEAN CORPUSCULAR HGB CONC 33.1 g/dl (32.0-36.5); MEAN CORPUSCULAR VOLUME 91.8 fl (80.0-96.0); MONO # 0.5 10^3/uL (0.0-0.8); MONO % 6.8 % (0.0-5.0); NEUTROPHILS # 5.2 10^3/uL (1.5-8.5); NEUTROPHILS % 77.1 % (36.0-66.0); PLATELET COUNT, AUTOMATED 148 10^3/uL (150-450); RED BLOOD COUNT 3.55 10^6/uL (4.00-5.40); WHITE BLOOD COUNT 6.8 10^3/uL (4.0-10.0)
[2019-11-29 13:35] LABS: ALBUMIN 3.3 GM/DL (3.2-5.2); ALT/SGPT 18 U/L (12-78); BILIRUBIN,DIRECT 0.1 MG/DL (0.0-0.2); BILIRUBIN,TOTAL 0.3 MG/DL (0.2-1.0); CK-MB VALUE MASS 2.2 NG/ML (<3.6); CPK CREATINE PHOSPHOKINASE 53 U/L (26-192); LIPASE 95 U/L (73-393); MB/CK RELATIVE INDEX 4.15 (< OR =4); TOTAL PROTEIN 6.3 GM/DL (6.4-8.2); TROPONIN I < 0.02 NG/ML (< 0.10)
[2019-11-29] MEDS ORDERED: ISOVUE-370 76% 100ML VIAL (Q9967) As Ordered ONE (14:04)
[2019-11-29] MEDS ORDERED: HYDROMORPHONE HCL 0.5 MG/ 0.5 ML SYRINGE (J1170 PER 1) IV ONE (15:00)
[2019-11-29] MEDS ORDERED: MORPHINE 4 MG/ML 1ML VIAL/SYRINGE (J2270) IV PRN (16:00)
[2019-11-29] MEDS ORDERED: ACETAMINOPHEN TAB 650MG DOSE (2X325MG) PO PRN (16:00)
[2019-11-29] MEDS ORDERED: GLUCOSE 4 GM CHEW TABLET PO PRN (16:15)
[2019-11-29] MEDS ORDERED: HumaLOG INSULIN (NovoLOG) PER UNIT SC SCH (16:15)
[2019-11-29] MEDS ORDERED: DEXTROSE 50% 50 ML SYRINGE IV PRN (16:15)
[2019-11-29] MEDS ORDERED: GLUCAGON FOR INJ 1 MG VIAL (J1610) SC PRN (16:15)
--- NOTE | 2019-11-29 16:24 | REP ---
HISTORY: Abdominal pain. COMPARISON: 11/13/2019 The frontal view of the chest is essentially unchanged from the prior exam. The lung scott are clear. There is mild cardiomegaly, status quo. The dual chamber bipolar pacemaker device is stable. The pleural angles are sharp. There is no free subdiaphragmatic air. Supine and upright views of the abdomen again show the intestinal gas pattern to be nonspecific. There is no evidence of intestinal obstruction. The organ silhouettes in so far as delineated are unchanged and again seen to be within normal limits. Chronic changes are seen involving the imaged spine. The nasogastric tube seen on the prior exam has been removed. IMPRESSION: Nonspecific findings as described above. There is no evidence of acute disease. Electronically Signed by Luis Lozano DO 11/30/2019 08:34 A
--- NOTE | 2019-11-29 16:50 | HPEPDOC ---
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 fib (on ASA 81), NIDDM2, RUTHANN on CPAP, CKD3, Hypothyroidism, Cirrhosis on imaging (w/ splenomegaly), Chronic anemia, Chronic abdominal pain with opiate dependence, Adrenal adenoma, Fibromyalgia, RLS, GERD who presented to the emergency room with abdominal pain. Patient was recently admitted to the hospital 11/11 to 11/14 for partial small bowel obstruction and was managed conservatively with IV fluids and NG tube. Currently, patient reports she drinks printing abdominal pain since yesterday. Patient has reported that her pain. Currently has worsened. She has not consumed any food since last night. Yesterday evening she had a bowl of soup. Patient describes her abdominal pain as 10/10, continuous in the left upper abdomen radiating down to the left lower abdomen described as sharp. Mild alleviation with rest and positioning in the position, no aggravating factors. Patient reports her last bowel movement was yesterday via her colostomy. Patient does not have any bowel movements via rectum. Patient reports she feels nauseous but has not vomited. She denies any recent fevers or chills and unaware of any urinary discomfort because she has a uro stomy. Patient denies any chest pain, shortness of breath or palpitations. Their report poor appetite currently. Home Medications Scheduled Amlodipine Besylate (Amlodipine Besylate) 5 Mg Tablet, 5 MG PO DAILY, (Reported) Aspirin (Aspirin EC) 81 Mg Tabec, 81 MG PO QHS, (Reported) Cyanocobalamin (Vitamin B-12) (Vitamin B-12) 1,000 Mcg Tab, 1,000 MCG PO DAILY, (Reported) Ferrous Sulfate (Ferrous Sulfate) 325 Mg Tab, 325 MG PO DAILY, (Reported) Levothyroxine Sodium (Levothyroxine Sodium) 50 Mcg Tab, 50 MCG PO DAILY, (Reported) Lisinopril (Lisinopril) 20 Mg Tablet, 20 MG PO DAILY, (Reported) Magnesium Oxide (Magnesium Oxide) 400 Mg Tablet, 400 MG PO BID, (Reported) Metaxalone (Skelaxin) 800 Mg Tab, 800 MG PO TID, (Reported) Oxycodone HCl (Oxycodone HCl ER) 20 Mg Tab, 20 MG PO BID, (Reported) TAKES AT 0900 and 2300 Oxycodone HCl (Oxycodone HCl) 10 Mg Tablet, 10 MG PO BID, (Reported) TAKES AT 1500 and 2300 Pantoprazole Sodium (Pantoprazole Sodium) 40 Mg Tablet.dr, 40 MG PO QHS, (Reported) Pravastatin Sodium (Pravastatin Sodium) 20 Mg Tab, 20 MG PO DAILY, (Reported) Pregabalin (Lyrica) 100 Mg Cap, 100 MG PO TID, (Reported) Trazodone HCl (Trazodone HCl) 100 Mg Tablet, 100 MG PO QHS, (Reported) Scheduled PRN Diphenhydramine HCl (Diphenhydramine HCl) 25 Mg Capsule, 50 MG PO QHS PRN for SLEEP, (Reported) Furosemide (Lasix) 20 Mg Tablet, 20 MG PO QHS PRN for EDEMA, (Reported) Lidocaine (Lidocaine) 5 % Pad, 3 PATCH TOP DAILY PRN for PAIN, (Reported) USES ON BACK AND NECK Nitroglycerin (Nitroglycerin) 0.4 Mg Sub, 0.4 MG SL NITRO PRN for CHEST PAIN, (Reported) Polyethylene Glycol 3350 (Miralax) 119 Gm Powder, 17 GM PO Q2D PRN for CONSTIPATION, (Reported) Allergies Coded Allergies: pneumococcal vaccine (Verified Allergy, Intermediate, hives, 10/10/19) Corticosteroids (Glucocorticoids) (Verified Allergy, Unknown, 10/10/19) codeine (Verified Allergy, Unknown, 10/10/19) pt has had morphine in the past influenza virus vacc trivalent, spl (Verified Adverse Reaction, Severe, coma, 10/10/19) influenza virus vaccine tv 2013-14(18-49 yrs),rcmb (Verified Adverse Reaction, Severe, flu vaccine - coma, 10/10/19) TAPE (Verified Adverse Reaction, Mild, BLISTERS, 10/10/19) clonidine (Verified Adverse Reaction, Mild, faint, 10/10/19) quinapril (Verified Adverse Reaction, Mild, passed out, 10/10/19) zolpidem (Verified Adverse Reaction, Mild, sleep walking, 10/10/19) Past Medical History Medical History Recurrent pyelonephritis, 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 fib (on ASA 81), NIDDM2, RUTHANN on CPAP, CKD3, Hypothyroidism, Cirrhosis on imaging (w/ splenomegaly), Chronic anemia, Chronic abdominal pain with opiate dependence, Adrenal adenoma, Fibromyalgia, RLS, GERD Surgical History Urostomy Colostomy Back injury with neurogenic bowel and bladder, followed by back surgery Cholecystectomy Hysterectomy Reported several adhesion removal surgeries Carpal tunnel release bilaterally Family History Family history was reviewed and is currently noncontributory- Social History - Denies the use of alcohol, tobacco or illicit drugs - Denies recent travel or sick contacts - Lives with - Occupation; 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 Review of Systems Other systems 10 point review of systems complete, all negative otherwise stated in HPI Vital Signs - Vitals: BP 144/62, HR 69, RR 18, Sat 92%NC2L, Temp 99.1F - General: Lying in bed, reporting abdominal pain, AAOx3 - HEENT: NC, AT, PERRLA, EOMI - CVS: RRR, +S1S2 - Lungs: Fair air entry bilaterally, No appreciable wheezing / rales / rhonchi - Abdomen: Soft, mildly distended, tenderness at left upper quadrant, colostomy in left lower quadrant, urostomy at right lower quadrant - Extremities: No lower extremity edema, No calf tenderness - Neuro: No focal motor or sensory deficit - Skin: No visible rashes Laboratory Data Labs 24H Laboratory Tests 2 11/29/19 12:57: Immature Granulocyte % (Auto) 0.4, Neutrophils (%) (Auto) 77.1H, Lymphocytes (%) (Auto) 14.2L, Monocytes (%) (Auto) 6.8H, Eosinophils (%) (Auto) 1.2, Basophils (%) (Auto) 0.3, Neutrophils # (Auto) 5.2, Lymphocytes # (Auto) 1.0L, Monocytes # (Auto) 0.5, Eosinophils # (Auto) 0.1, Basophils # (Auto) 0.0, Nucleated Red Blood Cells % (auto) 0.0, Total Bilirubin 0.3, Direct Bilirubin 0.1, Aspartate Amino Transf (AST/SGOT) 17, Alanine Aminotransferase (ALT/SGPT) 18, Alkaline Phosphatase 92, Total Creatine Kinase 53, Creatine Kinase MB 2.2, Creatine Kinase MB Relative Index 4.15H, Troponin I < 0.02, Total Protein 6.3L, Albumin 3.3, Albumin/Globulin Ratio 1.10, Lipase 95 11/29/19 12:58: Lactic Acid Level 1.4 11/29/19 13:03: POC Glucose (Misc Panel) 133H, POC Sodium (Misc Panel) 138, POC Potassium (Misc Panel) 5.1, POC Chloride (Misc Panel) 104, POC Total CO2 (Misc Panel) 25.0, POC Blood Urea Nitrogen (Misc Panel 20, POC Ionized Calcium (Misc Panel) 4.9, POC Creatinine (Misc Panel) 1.2, POC Hematocrit (Misc Panel) 31.0L CBC/BMP Laboratory Tests 11/29/19 12:57 Plan / VTE VTE Prophylaxis Ordered?: Yes Plan Plan Abdominal pain associated with nausea - likely 2/2 small bowel obstruction - Patient presented to the emergency room with worsening abdominal pain associated with nausea - Physical reveals left upper quadrant tenderness / hypoactive bowel sounds - CT abdomen / pelvis 11/28: Dilated small bowel loops in the central abdomen to the left of midline with air-fluid levels. Transition to normal caliber distal small bowel loops consistent with partial small bowel obstruction pattern. Postoperative changes including urinary diversion ileostomy and left lower quadrant colostomy. Post cholecystectomy. - Case is been discussed with surgery will be on consultation - Will place NG tube, keep strict nothing by mouth, will start IV fluids Chronic obstructive uropathy bilateral hydronephrosis - s/p urostomy with conduit - Hx of Recurrent pyelonephritis - No fevers noted - Will check UA w/ reflex HTN - BP remains well controlled - Will hold oral anti-hypertensive medications at this time Sinus bradycardia - s/p PM Paroxysmal A. fib - Will hold ASA 81 NIDDM2 - Will start ISS RUTHANN on CPAP - May use own CPAP CKD3 - Creatinine appears to be at baseline - Will start gentle IV fluid hydration (see above) Hypothyroidism - c/w Levothyroxine will adjust to IV Cirrhosis on imaging - w/ splenomegaly Chronic anemia - Hemoglobin appears to be at baseline Chronic abdominal pain with opiate dependence - Will adjust pain regimen while inpatient Fibromyalgia / RLS - Will hold home medications GERD - Continue with Protonix will change to IV DVT prophylaxis - Will start heparin subcutaneous MISSAEL ISABEL MD Nov 29, 2019 16:50
--- NOTE | 2019-11-29 17:43 | REP ---
CT abdomen and pelvis with IV and without oral contrast: History: Severe left lower quadrant pain. Rule out obstruction. Comparison abdomen and pelvis CT study April 06, 2019. CT contrast dose: 100 ml of intravenous Isovue 370. CT findings: Preliminary digital oil scout radiograph demonstrates a pacemaker in the right heart and clips in the right upper quadrant of the abdomen. The lung bases show no evidence of infiltrate. No pleural effusion is seen. No focal liver lesion is appreciated. The gallbladder is surgically absent. No pancreatic abnormality. No focal abnormality is seen in the spleen. There is a small right adrenal lipoma. This is unchanged, measuring 2.2 cm in greatest diameter. Normal left adrenal gland. There is significant atrophy of the left kidney. Mild bilateral hydroureteronephrosis associated with right lower quadrant urinary diversion ileostomy. This is bilaterally a little less prominent than at the time of the April 06, 2019 prior study. There is a left lower quadrant colostomy. There are dilated small bowel loops in the left mid abdomen with postsurgical changes in the left lower quadrant. There are normal caliber distal ileal small bowel loops. This implies partial small bowel obstruction pattern. Air fluid levels are seen in these small bowel loops. There is air and stool in a nondilated colon. The rectum appears to be oversewn. There is no evidence of abscess or free air. No pelvic mass or adenopathy is seen. Impression: Dilated small bowel loops in the central abdomen to the left of midline with air-fluid levels. Transition to normal caliber distal small bowel loops consistent with partial small bowel obstruction pattern. Postoperative changes including urinary diversion ileostomy and left lower quadrant colostomy. Post cholecystectomy. Electronically Signed by Jose Enrique Booker MD 11/29/2019 07:17 P
[2019-11-29] MEDS: D5W/0.45% SODIUM CHLORIDE 1,000 ML IV SCH (18:07)
[2019-11-29 18:30] VITALS: BP 148/48
[2019-11-29] MEDS: ONDANSETRON 4MG/2ML VIAL (J2405) IV PRN (18:40)
[2019-11-29] MEDS: HEPARIN SOD (PORCINE) 5000UNITS/ML VIAL (J1644 PER 1000UNITS) SC SCH (19:09)
[2019-11-29 20:00] VITALS: BP 140/58
[2019-11-29] MEDS ORDERED: KETOROLAC 30 MG/ML 1ML VIAL (J1885 PER 15MG) IV ONE (20:00)
[2019-11-29] MEDS ORDERED: MORPHINE 2 MG/ML 1ML VIAL (J2270) IV PRN (20:00)
[2019-11-29] MEDS: MORPHINE 4 MG/ML 1ML VIAL/SYRINGE (J2270) IV PRN (22:12)
[2019-11-29] MEDS: HumaLOG INSULIN (NovoLOG) PER UNIT SC SCH (23:51)
[2019-11-30] VITALS: BP 118/62
[2019-11-30] MEDS: HEPARIN SOD (PORCINE) 5000UNITS/ML VIAL (J1644 PER 1000UNITS) SC SCH ×3 (00:23→16:57)
[2019-11-30] MEDS: MORPHINE 4 MG/ML 1ML VIAL/SYRINGE (J2270) IV PRN ×6 (00:23→22:56)
[2019-11-30] MEDS: D5W/0.45% SODIUM CHLORIDE 1,000 ML IV SCH (02:26)
[2019-11-30] MEDS: MORPHINE 2 MG/ML 1ML VIAL (J2270) IV PRN (03:18)
[2019-11-30 03:46] VITALS: BP 138/60
[2019-11-30] MEDS ORDERED: KETOROLAC 30 MG/ML 1ML VIAL (J1885 PER 15MG) IV ONE (04:00)
[2019-11-30 04:13] LABS: BASO % 0.2 % (0.0-1.0); EOS # 0.1 10^3/uL (0.0-0.5); EOS % 2.2 % (0.0-3.0); HEMATOCRIT 36.1 % (36.0-47.0); HEMOGLOBIN 11.8 g/dl (12.0-15.5); LYMPH # 1.7 10^3/uL (1.5-5.0); LYMPH % 26.2 % (24.0-44.0); MEAN CORPUSCULAR HEMOGLOBIN 30.2 pg (27.0-33.0); MEAN CORPUSCULAR HGB CONC 32.7 g/dl (32.0-36.5); MEAN CORPUSCULAR VOLUME 92.3 fl (80.0-96.0); MONO # 0.6 10^3/uL (0.0-0.8); NEUTROPHILS % 61.8 % (36.0-66.0); PLATELET COUNT, AUTOMATED 156 10^3/uL (150-450); RED BLOOD COUNT 3.91 10^6/uL (4.00-5.40); WHITE BLOOD COUNT 6.4 10^3/uL (4.0-10.0)
[2019-11-30 04:44] LABS: CALCIUM LEVEL 8.7 MG/DL (8.8-10.2); CREATININE FOR GFR 1.44 MG/DL (0.55-1.30); GLOMERULAR FILTRATION RATE 37.8 (>39); MAGNESIUM LEVEL 1.8 MG/DL (1.8-2.4); POTASSIUM SERUM 4.5 MEQ/L (3.5-5.1)
--- NOTE | 2019-11-30 05:02 | REPVR ---
PROCEDURE INFORMATION: Exam: XR Abdomen, 1 View Exam date and time: 11/30/2019 4:41 AM Age: 74 years old Clinical indication: Other: Concern for perf; Additional info: Incr abd pain, rigidity/partial sbo on CT, concern for perf TECHNIQUE: Imaging protocol: XR of the abdomen. Views: Frontal supine view of the abdomen. 1 View. COMPARISON: CR Abdomen,Flat Upright,PA CHEST 11/29/2019 1:19 PM FINDINGS: Limitations: Limited without upright view. Tubes, catheters and devices: NG tube with the tip at the stomach. Pacemaker lead over the heart. Gastrointestinal tract: No bowel dilation. Copious stool in the rectum. Vasculature: Residual contrast in the urinary collecting system. Bones/joints: Spondylosis of the spine. No acute fracture. Soft tissues: Multiple surgical clips in the abdomen. Multiple calcified granulomas in the buttock. IMPRESSION: 1. No bowel dilation. 2. NG tube as described. Electronically signed by: Faisal Clarke On 11/30/2019 05:02:04 AM
[2019-11-30] MEDS: HumaLOG INSULIN (NovoLOG) PER UNIT SC SCH ×3 (05:36→19:46)
[2019-11-30] MEDS: LEVOTHYROXINE 100MCG (0.1MG) VIAL IV SCH (05:36)
[2019-11-30] MEDS ORDERED: HYDROMORPHONE HCL 0.5 MG/ 0.5 ML SYRINGE (J1170 PER 1) IV ONE (06:00)
[2019-11-30] MEDS: PANTOPRAZOLE 40MG INJ (PROTONIX) (C9113) IV SCH (07:31)
[2019-11-30] MEDS: NS 1,000 ML IV SCH ×3 (07:38→23:55)
[2019-11-30 08:00] VITALS: BP 124/66
--- NOTE | 2019-11-30 10:08 | CR ---
DATE OF CONSULTATION: 11/30/2019 CHIEF COMPLAINT: Abdominal pain. HISTORY OF PRESENT ILLNESS: The patient is a 74-year-old female with history of multiple abdominal surgeries. She presents with 1-day history of increasing abdominal pain, nausea, vomiting and no output from her ostomy she has a history of multiple small-bowel obstructions in the past. She has had abdominal surgeries for adhesions as well as chronic obstructive uropathy resulting in a colostomy and urostomy most recent surgery was 2 years ago. All of her recent surgeries have been done down at [facility]. She also had a pacemaker placed for bradycardia just 2 weeks ago at [facility] and follows with Dr. Koroma here for that. She was in the hospital 2 weeks ago for same thing, partial small-bowel obstruction that was managed conservatively with fluids and nasogastric (NG) tube. She was discharged home. She claims that since then, she still has a lot of bloating but she has been able to continue having ostomy output until yesterday when she got severely bloated and decided to come in for re-evaluation. In the emergency room (ER), labs are normal, x-rays are normal but CT showed some dilated loops of bowel in her left midabdomen so she was admitted to hospitalist service. NG tube is in place. This morning she feels about the same as when she came in, not much relief since NG tube placement. The NG is putting out some bile and stool in it but outputs are low. She does have some stool in her ostomy but it is very minimal amount. PAST MEDICAL HISTORY: Recurrent pyelonephritis. Chronic obstructive uropathy with bilateral hydronephrosis. Hypertension. Sinus bradycardia. Paroxysmal atrial fibrillation. Diabetes. Sleep apnea. Chronic kidney disease. Hypothyroidism. Cirrhosis. Chronic anemia. Chronic abdominal pain with opiate dependence. Adrenal adenoma. Fibromyalgia. Gastroesophageal reflux disease. PAST SURGICAL HISTORY: Urostomy. Colostomy. Multiple abdominal surgeries for adhesions. Carpal tunnel release. Hysterectomy. Cholecystectomy. Back surgery. FAMILY HISTORY: Noncontributory. SOCIAL HISTORY: Denies drug or alcohol, tobacco abuse. REVIEW OF SYSTEMS: Pertinent positives and negatives a stated in the history of present illness in the (HPI). PHYSICAL EXAMINATION: GENERAL: Patient is alert and oriented times three. No acute distress. VITALS: Temperature 96.6, pulse 83, respirations 16, blood pressure 124/66, pulse ox 92% on room air. HEENT: Pupils equal round react to light accommodation. HEART: S1, S2 regular rate and rhythm. LUNGS: Clear to auscultation bilaterally. ABDOMEN: Soft, tender to palpation on the left side of the abdomen, mainly on the medial side of her colostomy and inferior to her colostomy. No pain on the right side of the abdomen. No rebounding or guarding and no rigidity. EXTREMITIES: Bilateral lower extremity edema. LABS: White count 6.4, hemoglobin 11.8, platelets 156, potassium 4.5, creatinine 1.44, magnesium 1.8. IMAGING STUDIES: CT abdomen and pelvis from yesterday shows dilated small bowel loops in the central abdomen, left of midline with air-fluid levels transition to normal caliber distal small bowel loops consistent with possible partial small-bowel obstruction. Abdominal x-ray from this morning shows NG tube with tip in the stomach. No bowel dilation. ASSESSMENT/PLAN: Patient is a 74-year-old female history of multiple abdominal surgeries. She has also had multiple episodes of small bowel obstruction at least six to seven episodes within the last year alone. She has had multiple hospitalizations because of these. She has had multiple surgeries because of adhesions. 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 They were all part of her abdominal wall. They recommended at that time that she avoid surgery at all costs and I assume that is why she has not had any surgery for her adhesions since then. At this time, she is stable, she is having some pain. There is stool in her the NG tube which coincides with the fact that there is an obstruction. However, her labs are normal. There is no need for emergent surgery at this time. I discussed the possibility of surgery with her and if she needed it whether she wanted it done here or at [facility]. She would prefer to go back to her regular surgeons if possible. We will keep her here, monitor her closely with medical management. If this obstruction relieves itself, she can be discharged home. If she does not have any signs of improvement, then she may be good candidate for transferring when the time comes.
[2019-11-30 12:00] VITALS: BP 146/66
--- NOTE | 2019-11-30 12:27 | ECGEPIP ---
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 Ventricular ectopy is newand there is increased ventricular pacing from 11/12/19 Previous tracing interpreted as showing atrial fibrillation; this was incorrect. Electronically Signed on 11-30-2019 12:27:11 EDT by Ketan Juarez
--- NOTE | 2019-11-30 12:29 | IPNPDOC ---
Text Note Date of Service The patient was seen on 11/30/19. NOTE S: Pt examined at bedside. Continues to have diffuse abdominal pain same as when she came in. Nausea resolved with NG tube with stool appearing output. No bloody output. No fever, chills, chest pain, shortness of breath, lightheadedness, dizziness. PE: Vitals: see below General: NAD, A&Ox3, resting comfortably HEENT: NCAT, EOMI, anicteric sclera, NG tube in place with brown stool-appearing liquidy output CV: RRR, No edema. PPM in left upper chest wall RESP: CTAB, no w/r/r/ ABD: soft, mildly distended, tender to palpation more the left lower quadrant, no rebound, guarding, rigidity. Urostomy with clear output on right of abdomen, and colostomy with dark grean-brown liquid stool on left abdomen EXTREMITIES: 2+ radial pulses b/l, able to move all extremities NEURO: no focal deficits or acute changes A/P: This is 74-year-old female with extensive PMH listed below. Also has hx of multiple abdominal surgeries in the past done in [place] and recurrent small bowel instructions, most recently discharged 11/15/2019. She presents again for similar complaints of nausea, vomiting, and abdominal distention & pain. Found on admission to have a partial small bowel obstruction again. 1. Partial small bowel obstruction - nausea resolved with NGT in place, still having abd discomfort and not passing flatus - No signs of infection, afebrile without white count - CT on admission revealed: dilated small bowel loops in the central abdomen to the left of midline with air-fluid levels consistent with partial small bowel obstruction - Surgery consulted, appreciate Dr. Avery's input - Per surgery: Continue conservative management; keep NPO, NG tube and IV fluids and hopefully this will self resolve. Should she have recurrent obstruction, she should be transferred to [place] where she had her prior abdominal surgeries given her extensive history - IV Morphine for pain 2. SUPA on CKD3 - baseline ~1.1-1.2 - Cr elevated from baseline - Likely prerenal due to decreased by mouth intake and vomiting with small bowel obstruction - Hold for taxes, continue IV fluids For the remainder of her chronic medical conditions as listed below, pt is stable. Thyroid and reflux medications will be switched to IV. Remaining by mouth meds on hold. Monitor blood pressure and give IV antihypertensives as needed. - Hypertension - CAD/dyslipidemia - Iron deficiency anemia - Anemia of chroinc disease - Hypothyroidism - GERD - Insomnia - Chronic abdominal pain opiote-dependent - Sinus bradycardia s/p PPM - Paroxysmal AFib on ASA 81mg - DM2 not on meds - RUTHANN on CPAP - Cirrhosis with splenomegaly - Fibromyalgia - RLS - Adrenal Adenoma - Chronic obstructive uropathy bilateral hydronephrosis (s/p urostomy with conduit) DVT ppx: heparin sc DISPO: pending clinical improvement. Possibly DC home early next week. VS,Fishbone, I+O VS, Fishbone, I+O Laboratory Tests 11/29/19 12:57 11/30/19 04:05 Vital Signs Date Time Temp Pulse Resp B/P (MAP) Pulse Ox O2 Delivery O2 Flow Rate FiO2 11/30/19 10:46 16 118/58 11/30/19 08:00 96.6 63 92 Room Air 11/29/19 15:34 2.0 I&O- Last 24 Hours up to 6 AM 11/30/19 06:00 Intake Total 0 ml Output Total 1825 ml Balance -1825 ml GME ATTESTATION GME ATTESTATION My faculty preceptor for this patient encounter was physically present during the encounter and was fully available. All aspects of the patient interview, examination, medical decision making process, and medical care plan development were reviewed and approved by the faculty preceptor. The faculty preceptor is aware and concurs with the plan as stated in the body of this note and will attest to such by his/her cosignature. ATTENDING NOTE I, Steven Isabel, have independently examined this patient and performed my own physical exam, as well as reviewed the documentation and edited where necessary. I have discussed in detail with the resident / student the findings and plan of treatment as documented by the resident / student and edited their note. I agree with their findings and treatment plan and have edited their documentation. I will continue to follow the patient during this hospital stay. GREGORY WILKES DO Nov 30, 2019 12:29 STEVEN ISABEL MD Nov 30, 2019 15:36
[2019-11-30 20:00] VITALS: BP 122/62
[2019-12-01] VITALS: BP 130/61
[2019-12-01] MEDS: HEPARIN SOD (PORCINE) 5000UNITS/ML VIAL (J1644 PER 1000UNITS) SC SCH ×3 (00:47→17:17)
[2019-12-01] MEDS: MORPHINE 2 MG/ML 1ML VIAL (J2270) IV PRN ×5 (00:47→17:16)
[2019-12-01] MEDS: MORPHINE 4 MG/ML 1ML VIAL/SYRINGE (J2270) IV PRN ×2 (03:43→21:12)
[2019-12-01 04:00] VITALS: BP 125/58
[2019-12-01 05:53] LABS: BASO % 0.3 % (0.0-1.0); EOS # 0.1 10^3/uL (0.0-0.5); EOS % 3.2 % (0.0-3.0); HEMATOCRIT 30.1 % (36.0-47.0); HEMOGLOBIN 9.9 g/dl (12.0-15.5); LYMPH % 33.1 % (24.0-44.0); MEAN CORPUSCULAR HGB CONC 32.9 g/dl (32.0-36.5); MEAN CORPUSCULAR VOLUME 94.4 fl (80.0-96.0); MONO # 0.3 10^3/uL (0.0-0.8); MONO % 10.2 % (0.0-5.0); NEUTROPHILS # 1.7 10^3/uL (1.5-8.5); NEUTROPHILS % 53.2 % (36.0-66.0); PLATELET COUNT, AUTOMATED 125 10^3/uL (150-450); RED BLOOD COUNT 3.19 10^6/uL (4.00-5.40); WHITE BLOOD COUNT 3.1 10^3/uL (4.0-10.0)
[2019-12-01] MEDS: HumaLOG INSULIN (NovoLOG) PER UNIT SC SCH ×4 (06:00→18:00)
[2019-12-01 06:12] LABS: CALCIUM LEVEL 8.2 MG/DL (8.8-10.2); CREATININE FOR GFR 1.19 MG/DL (0.55-1.30); GLOMERULAR FILTRATION RATE 47.1 (>39); MAGNESIUM LEVEL 1.9 MG/DL (1.8-2.4); POTASSIUM SERUM 4.5 MEQ/L (3.5-5.1)
[2019-12-01] MEDS: LEVOTHYROXINE 100MCG (0.1MG) VIAL IV SCH (06:19)
[2019-12-01 08:00] VITALS: BP 155/71
--- NOTE | 2019-12-01 09:59 | REP ---
REASON: Followup. COMPARISON: Yesterday. Supine AP portable. The proximal port of the nasogastric tube is at or possibly just distal to the gastroesophageal junction. The intestinal gas pattern is again seen to be nonspecific and unchanged. There is no evidence of a bowel obstruction. A colostomy site is seen on the left, status quo. There is no change in the osseous structures. There is no evidence of gross free air on this supine portable KUB. IMPRESSION: NG tube as described above. No evidence of intestinal obstruction or significant change from the prior exam. Electronically Signed by Luis Lozano DO 12/01/2019 11:12 A
[2019-12-01] MEDS: NYSTATIN 100,000 UNITS/GM TOPICAL PWD 15 GM TOP SCH (10:09)
[2019-12-01] MEDS: PANTOPRAZOLE 40MG INJ (PROTONIX) (C9113) IV SCH (10:09)
[2019-12-01] MEDS: LIDOCAINE 5% (LIDODERM) PATCH TD SCH (10:10)
--- NOTE | 2019-12-01 10:55 | IPNPDOC ---
Text Note Date of Service The patient was seen on 12/01/19. NOTE S: Pt examined at bedside. Reports her abd pain persists and is not improving or worsened from prior days. Drained 1L out of NG tube yesterday. Had 1 hard stool movement through ostomy, nonbloody. Poor IV access. Otherwise stable. No fever, chills, chest pain, shortness of breath, lightheadedness, dizziness. PE: Vitals: see below General: NAD, A&Ox3, mildly uncomfortable from abd pain HEENT: NCAT, EOMI, anicteric sclera, NG tube in place with frothy yellow-brown output, no blood CV: RRR, No edema. PPM in left upper chest wall RESP: CTAB, no w/r/r/ ABD: soft, mildly distended, tender to palpation more the left, no rebound, guarding, rigidity. Urostomy with clear output on right of abdomen, and colostomy recently emptied EXTREMITIES: 2+ radial pulses b/l, able to move all extremities NEURO: no focal deficits or acute changes PSYCH: anxious about hospitalization A/P: This is 74-year-old female with extensive PMH listed below. Also has hx of multiple abdominal surgeries in the past done in [place] and recurrent small bowel instructions, most recently discharged 11/15/2019. She presents again for similar complaints of nausea, vomiting, and abdominal distention & pain. Found on admission to have a partial small bowel obstruction again. 1. Partial small bowel obstruction - nausea resolved with NGT in place, still having abd discomfort - had 1 hard BM yesterday into ostomy, but pain persists same since admission - No signs of infection, afebrile without white count - CT on admission revealed: dilated small bowel loops in the central abdomen to the left of midline with air-fluid levels consistent with partial small bowel obstruction - repeat KUB today is reported as unchanged from prior days - Surgery consulted, appreciate input - Per surgery: Continue conservative management; keep NPO, NG tube and IV fluids and hopefully this will self resolve. Should she have recurrent obstruction, she should be transferred to [place] where she had her prior abdominal surgeries given her extensive history - IV Morphine for pain 2. SUPA on CKD3 - resolved s/p IVF - back to baseline Cr ~1.1-1.2 - Likely prerenal due to decreased by mouth intake and vomiting with small bowel obstruction - Avoid nephrotoxins, continue IV fluids 3. Drop in H&H - pt asymptomatic and hemodynamically stable - Hgb from 11.8 yesterday to 9.9 today - no visible bleed today, but noted to have scant blood out of NGT yesterday - trend H&H. Transfuse to maintain Hgb >8 For the remainder of her chronic medical conditions as listed below, pt is stable. Thyroid and reflux medications will be switched to IV. Remaining by mouth meds on hold. Monitor blood pressure and give IV antihypertensives as needed. - Hypertension - CAD/dyslipidemia - Iron deficiency anemia - Anemia of chroinc disease - Hypothyroidism - GERD - Insomnia - Chronic abdominal pain opiote-dependent - Sinus bradycardia s/p PPM - Paroxysmal AFib on ASA 81mg - DM2 not on meds - RUTHANN on CPAP - Cirrhosis with splenomegaly - Fibromyalgia - RLS - Adrenal Adenoma - Chronic obstructive uropathy bilateral hydronephrosis (s/p urostomy with conduit) DVT ppx: heparin sc DISPO: pending clinical improvement. Will downgrade and discuss IV access options. Possibly DC home early next week. VS,Fishbone, I+O VS, Fishbone, I+O Laboratory Tests 12/01/19 05:12 12/01/19 05:13 Vital Signs Date Time Temp Pulse Resp B/P (MAP) Pulse Ox O2 Delivery O2 Flow Rate FiO2 12/01/19 08:00 96.8 69 18 155/71 (99) 96 Room Air 11/29/19 15:34 2.0 I&O- Last 24 Hours up to 6 AM 12/01/19 06:00 Intake Total 1710 ml Output Total 1925 ml Balance -215 ml GME ATTESTATION GME ATTESTATION My faculty preceptor for this patient encounter was physically present during the encounter and was fully available. All aspects of the patient interview, examination, medical decision making process, and medical care plan development were reviewed and approved by the faculty preceptor. The faculty preceptor is aware and concurs with the plan as stated in the body of this note and will attest to such by his/her cosignature. ATTENDING NOTE I, Steven Isabel, have independently examined this patient and performed my own physical exam, as well as reviewed the documentation and edited where necessary. I have discussed in detail with the resident / student the findings and plan of treatment as documented by the resident / student and edited their note. I agree with their findings and treatment plan and have edited their documentation. I will continue to follow the patient during this hospital stay. GREGORY WILKES DO Dec 01, 2019 10:55 STEVEN ISABEL MD Dec 01, 2019 16:57
[2019-12-01 12:00] VITALS: BP 156/67
[2019-12-01 12:20] LABS: HEMATOCRIT 32.7 % (36.0-47.0); HEMOGLOBIN 10.7 g/dl (12.0-15.5)
[2019-12-01 12:54] VITALS: BP 101/73
[2019-12-01] MEDS: NS 1,000 ML IV SCH ×2 (17:18→18:32)
--- NOTE | 2019-12-01 18:22 | IPN ---
DATE: 12/01/2019 HISTORY: The patient was admitted on the 11/29/2019 with a bowel obstruction. She was admitted by the hospitalist and Dr. Avery was consulted. The patient has a history of multiple surgical procedures. She has a right-sided ileal conduit for drainage of her kidneys status post a cystectomy many years ago. She has a left-sided colostomy. She has had several bowel obstructions which have required surgery. Her most recent surgical procedure was in [place] and was for a revision of her ileal conduit due to obstruction at the ureteroileostomy. This was, believe she said, two years ago. She has not yet resolved her obstruction. She reports there was some stool from her colostomy yesterday evening but no air has passed and no significant amount today. Her nasogastric (NG) tube had 650 out this morning. Vital signs show that she has been afebrile. Her pulse is in the 60s generally with a good blood pressure. Her room air oxygen saturation is fine. Intake and output shows that yesterday she had 1500 in with 1800 out. She had 1000 out of her NG tube yesterday. Her urine output has been adequate. PHYSICAL EXAMINATION: The patient is alert and oriented. She appears fairly comfortable but does complain bitterly of pain, particularly around the lateral inferior aspect of the abdomen below her colostomy. Heart exam shows a regular rhythm and the lungs are clear. The abdomen is soft, but she does have some moderate tenderness below the colostomy in the left midabdomen and extending particularly to the left lateral aspect of the abdomen. Her ileal conduit appears to be draining urine well. Laboratory studies today showed a white count of 3, hemoglobin 10, hematocrit of 30 and a platelet count of 125,000. Differential count is normal. Her chemistry profile showed sodium 143, potassium 4.5, chloride 114, CO2 of 22, BUN of 24, creatinine 1.2 and a glucose of 84. IMPRESSION: The patient has a bowel obstruction, presumed secondary to adhesions from her multiple prior surgeries. I reviewed her CT scan myself and she has dilated matted loops of small bowel in the upper abdomen, which then transition to a very decompressed segment of small bowel that extends from the left midabdomen down into the pelvis, where it meets the cecum. There is some stool in the colon. She clearly has not resolved her obstruction and now is in need of intravenous access. PLAN: I have placed a triple-lumen catheter for venous access. I will continue to monitor her through this weekend. The patient has indicated that she would like me to care for her if she does need surgery during this hospital stay and I am happy to do this. Certainly, we would like to avoid surgery if possible because of her known extensive adhesions. If her obstruction persists much longer, then beginning total parenteral nutrition would be prudent.
[2019-12-01 22:00] VITALS: BP 122/71
[2019-12-02] MEDS: NYSTATIN 100,000 UNITS/GM TOPICAL PWD 15 GM TOP SCH ×3 (00:53→20:48)
[2019-12-02] MEDS: SODIUM CHLORIDE 0.9% INJ 10 ML SYR IV SCH ×4 (00:54→20:49)
[2019-12-02] MEDS: HEPARIN SOD (PORCINE) 5000UNITS/ML VIAL (J1644 PER 1000UNITS) SC SCH ×3 (00:55→16:34)
[2019-12-02] MEDS: MORPHINE 4 MG/ML 1ML VIAL/SYRINGE (J2270) IV PRN ×6 (00:57→20:48)
[2019-12-02] MEDS: **NOTE PATIENT COMMENT** MISC XX SCH ×2 (01:43→21:00)
[2019-12-02] MEDS: NS 1,000 ML IV SCH ×3 (02:42→22:29)
[2019-12-02 06:00] VITALS: BP 166/60
[2019-12-02] MEDS: HumaLOG INSULIN (NovoLOG) PER UNIT SC SCH ×4 (06:00→18:00)
[2019-12-02] MEDS: LEVOTHYROXINE 100MCG (0.1MG) VIAL IV SCH (06:05)
[2019-12-02 06:38] LABS: BASO % 0.3 % (0.0-1.0); EOS % 0.5 % (0.0-3.0); HEMOGLOBIN 9.7 g/dl (12.0-15.5); LYMPH % 25.2 % (24.0-44.0); MEAN CORPUSCULAR HEMOGLOBIN 30.3 pg (27.0-33.0); MEAN CORPUSCULAR HGB CONC 32.3 g/dl (32.0-36.5); MEAN CORPUSCULAR VOLUME 93.8 fl (80.0-96.0); MONO # 0.3 10^3/uL (0.0-0.8); MONO % 7.8 % (0.0-5.0); NEUTROPHILS # 2.6 10^3/uL (1.5-8.5); NEUTROPHILS % 65.9 % (36.0-66.0); PLATELET COUNT, AUTOMATED 132 10^3/uL (150-450)
[2019-12-02 06:55] LABS: BLOOD UREA NITROGEN 18 MG/DL (7-18); CALCIUM LEVEL 8.4 MG/DL (8.8-10.2); CARBON DIOXIDE LEVEL 23 MEQ/L (21-32); CHLORIDE LEVEL 115 MEQ/L (98-107); CREATININE FOR GFR 0.91 MG/DL (0.55-1.30); GLOMERULAR FILTRATION RATE > 60.0 (>39); GLUCOSE, FASTING 77 MG/DL (70-100); MAGNESIUM LEVEL 1.9 MG/DL (1.8-2.4); POTASSIUM SERUM 4.4 MEQ/L (3.5-5.1); SODIUM LEVEL 145 MEQ/L (136-145)
--- NOTE | 2019-12-02 07:46 | RO ---
DATE OF PROCEDURE: 12/01/2019 PREOPERATIVE DIAGNOSIS: Small bowel obstruction with poor peripheral venous access. POSTOPERATIVE DIAGNOSIS: Small bowel obstruction with poor peripheral venous access. PROCEDURE PERFORMED: Placement of right internal jugular vein triple-lumen central venous catheter with ultrasound guidance. SURGEON: Albert Hallman MD RN ORTHOPAEDIC: ANESTHESIA: Local with 1% Xylocaine. INDICATIONS FOR PROCEDURE: Patient is a 74-year-old woman with a history of multiple prior surgeries who presented with a bowel obstruction. She has not resolved and she has had multiple unsuccessful attempts at peripheral IV access. She is now for placement of a central line. OPERATIVE PROCEDURE: The patient was placed supine in the bed. The patient's right neck was prepped with ChloraPrep and draped with a sterile drape. Using standard sterile technique the ultrasound probe was draped and then used to inspect the patient's right neck. The carotid artery and internal jugular vein were clearly identified. Local anesthesia was achieved primarily over the sternal head of the sternocleidomastoid muscle. With ultrasound guidance, the 18 gauge needle was inserted into the vein without difficulty. There was excellent return of venous blood. The Guidewire was passed and the needle removed. The skin was nicked at the insertion site and the dilator was then passed and removed. The 7-Maori triple-lumen catheter, which had previously been flushed with saline, was then inserted over the Guidewire to approximately 20 cm and the Guidewire was removed. The blood aspirated easily from all ports and these were all flushed with saline. The catheter was withdrawn to approximately the 14 cm edgar at the skin. The suture wing was attached to the catheter and two silk sutures were placed to fix the catheter in place. The chlorhexidine gluconate OpSite was applied. The patient tolerated the procedure well without apparent complication. A followup chest x-ray was ordered.
--- NOTE | 2019-12-02 07:51 | REP ---
REASON: Assess central venous catheter placement. COMPARISON: Frontal view obtained as part of an abdominal series, 11/29/2019. The technique utilized in obtaining the radiograph has magnified the cardiac silhouette and accentuated the interstitial markings. There is cardiomegaly accentuated by technique. There is a central venous catheter entering from the right internal jugular region since the prior exam. The tip is in the superior vena cava. There is no pneumothorax. An NG tube is seen coursing the esophagus, the tip is beneath the diaphragmatic surface of the left lung outside of view of the image, presumably within the stomach. The dual-chamber bipolar pacemaker device is unchanged. The osseous structures are unchanged. The lung scott are clear. There is no pneumothorax. IMPRESSION: As above. Electronically Signed by Luis Lozano DO 12/02/2019 08:10 A
[2019-12-02] MEDS: PANTOPRAZOLE 40MG INJ (PROTONIX) (C9113) IV SCH (08:34)
[2019-12-02] MEDS: LIDOCAINE 5% (LIDODERM) PATCH TD SCH (08:35)
--- NOTE | 2019-12-02 09:43 | IPNPDOC ---
Text Note Date of Service The patient was seen on 12/02/19. NOTE Subjective: Patient is a 74-year-old female with a PMHx Recurrent pyelonephritis, 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 fib (on ASA 81), NIDDM2, RUTHANN on CPAP, CKD3, Hypothyroidism, Cirrhosis on imaging (w/ splenomegaly), Chronic anemia, Chronic abdominal pain with opiate dependence, Adrenal adenoma, Fibromyalgia, RLS, GERD who presented to the emergency room with abdominal pain. Patient was recently admitted to the hospital 11/11 to 11/14 for partial small bow el obstruction and was managed conservatively with IV fluids and NG tube. Patient was admitted to the hospitalist service for suspected partial small bowel obstruction. Surgery was called on consultation. Patient was seen and examined at the bedside. Currently, patient reports that she still feels nauseated. Reports abdominal pain, however, slightly improved. Reports some difficulty sleeping at night. Denies chest pain, shortness breath or palpitations. Has had some output from her ostomy. Objective: Vitals (See below) General: Lying in bed, appears comfortable, AAOx3 HEENT: NC, AT CVS: +S1S2 Lungs: Fair air entry b/l, -w/r/r Abdomen: Soft, tenderness at LUQ / LLQ, + LLQ ostomy, + RLQ urostomy Extremities: No evidence of edema, - Calf tenderness Assessment and plan: Abdominal pain associated with nausea - likely 2/2 small bowel obstruction - Patient presented to the ER with worsening abdominal pain associated with nausea - Currently is experiencing some nausea - Physical still reveals tenderness - CT abdomen / pelvis 11/28: Dilated small bowel loops in the central abdomen to the left of midline with air-fluid levels. Transition to normal caliber distal small bowel loops consistent with partial small bowel obstruction pattern. Postoperative changes including urinary diversion ileostomy and left lower quadrant colostomy. Post cholecystectomy. - Case is been discussed with surgery will be on consultation - c/w NG tube, strict nothing by mouth, and IV fluid hydration Chronic obstructive uropathy bilateral hydronephrosis - s/p urostomy with conduit - Hx of Recurrent pyelonephritis - No fevers noted - UA with some evidence of infection; culture pending HTN - BP moderately elevated today - Will hold oral anti-hypertensive medications at this time - Will reduce rate of IV fluids Sinus bradycardia - s/p PM Paroxysmal A. fib - Will hold ASA 81 NIDDM2 - c/w ISS RUTHANN on CPAP - May use own CPAP s/p SUPA on CKD3 - Creatinine has returned to baseline - c/w IV fluids while NPO Hypothyroidism - c/w Levothyroxine IV Cirrhosis on imaging - w/ splenomegaly Chronic anemia - Hemoglobin appears to be at baseline Chronic abdominal pain with opiate dependence - Continue with adjusted pain regimen Fibromyalgia / RLS - Will hold home medications GERD - c/w Protonix IV DVT prophylaxis - c/w heparin subcutaneous Disposition: - Will continue to monitor patient's abdominal pain and continue with NG tube suction and IV fluid hydration VS,Fishbone, I+O VS, Fishbone, I+O Laboratory Tests 12/01/19 12:04 12/02/19 06:17 Vital Signs Date Time Temp Pulse Resp B/P (MAP) Pulse Ox O2 Delivery O2 Flow Rate FiO2 12/02/19 06:00 98.2 59 17 166/60 (95) 97 Nasal Cannula 2.0 I&O- Last 24 Hours up to 6 AM 12/02/19 06:00 Intake Total 1440 ml Output Total 1500 ml Balance -60 ml MISSAEL ISABEL MD Dec 02, 2019 09:43
--- NOTE | 2019-12-02 12:11 | REP ---
REASON: Followup. COMPARISON: 11/30/2019 There is no change in appearance of the intestinal gas pattern. There is no other evidence of intestinal obstruction. Limited KUB shows no evidence of free intraperitoneal air. Postoperative changes, status quo. Chronic osseous changes, status quo. The nasogastric tube has been retracted somewhat, and the proximal port is now not within the view of the radiograph. IMPRESSION: NG tube as described above. No other significant changes. Electronically Signed by Luis Lozano DO 12/02/2019 12:32 P
[2019-12-02 22:00] VITALS: BP 143/61
[2019-12-03] MEDS: HEPARIN SOD (PORCINE) 5000UNITS/ML VIAL (J1644 PER 1000UNITS) SC SCH ×3 (01:17→17:04)
[2019-12-03] MEDS: MORPHINE 4 MG/ML 1ML VIAL/SYRINGE (J2270) IV PRN ×2 (03:58→09:42)
[2019-12-03] MEDS: SODIUM CHLORIDE 0.9% INJ 10 ML SYR IV SCH ×3 (05:12→20:43)
[2019-12-03] MEDS: LEVOTHYROXINE 100MCG (0.1MG) VIAL IV SCH (05:34)
[2019-12-03 05:36] LABS: BASO % 0.3 % (0.0-1.0); EOS % 0.6 % (0.0-3.0); HEMATOCRIT 28.5 % (36.0-47.0); HEMOGLOBIN 9.2 g/dl (12.0-15.5); LYMPH % 26.6 % (24.0-44.0); MEAN CORPUSCULAR HEMOGLOBIN 30.2 pg (27.0-33.0); MEAN CORPUSCULAR HGB CONC 32.3 g/dl (32.0-36.5); MEAN CORPUSCULAR VOLUME 93.4 fl (80.0-96.0); MONO # 0.3 10^3/uL (0.0-0.8); MONO % 7.3 % (0.0-5.0); NEUTROPHILS # 2.3 10^3/uL (1.5-8.5); NEUTROPHILS % 64.9 % (36.0-66.0); PLATELET COUNT, AUTOMATED 143 10^3/uL (150-450); RED BLOOD COUNT 3.05 10^6/uL (4.00-5.40); WHITE BLOOD COUNT 3.6 10^3/uL (4.0-10.0)
[2019-12-03 06:00] VITALS: BP 166/73
[2019-12-03] MEDS: HumaLOG INSULIN (NovoLOG) PER UNIT SC SCH ×4 (06:00→17:48)
[2019-12-03 06:02] LABS: ALBUMIN 2.9 GM/DL (3.2-5.2); ALT/SGPT 12 U/L (12-78); BILIRUBIN,TOTAL 0.4 MG/DL (0.2-1.0); BLOOD UREA NITROGEN 16 MG/DL (7-18); CALCIUM LEVEL 8.9 MG/DL (8.8-10.2); CARBON DIOXIDE LEVEL 23 MEQ/L (21-32); CHLORIDE LEVEL 114 MEQ/L (98-107); CREATININE FOR GFR 0.83 MG/DL (0.55-1.30); GLOMERULAR FILTRATION RATE > 60.0 (>39); GLUCOSE, FASTING 86 MG/DL (70-100); POTASSIUM SERUM 4.2 MEQ/L (3.5-5.1); SODIUM LEVEL 145 MEQ/L (136-145); TOTAL PROTEIN 6.1 GM/DL (6.4-8.2)
--- NOTE | 2019-12-03 07:21 | IPN ---
DATE: 12/02/2019 HISTORY: The patient was admitted back on November 28 with evidence for a bowel obstruction. She was admitted by the hospitalists with consult to general surgery. The patient has a right-sided ileal urinary conduit following cystectomy and has a colostomy in the left upper quadrant from prior partial colectomy. She has had several prior procedures for bowel obstructions. She has a nasogastric tube in place. Her urine output has been adequate with IV hydration. She has not noticed any significant increase in output though she did have a minimal amount of stool from her ostomy. Vital signs show that she has been afebrile over the past 24 hours. Her pulse has generally been in the 60s and her blood pressure is fine. Intake and output shows that yesterday she had 940 recorded in with 1550 out. There was only 100 mL recorded from her NG tube. She had also only 100 mL recorded from her NG tube overnight this morning. PHYSICAL EXAMINATION: The patient reports that there has been no significant change and she continues to have pain inferiorly and lateral to her colostomy. She has not had any vomiting. Her NG tube was partially dislodged last evening, but reinserted and is in to approximately 55 cm currently. Heart exam shows a regular rhythm. The lungs are clear. The abdomen is generally soft in the upper quadrants. Her ileal conduit is draining clear yellow urine. She does have some bowel sounds present, though these seem diminished. She is tender to palpation, particularly just lateral and inferior to her colostomy. LABORATORY STUDIES: Show a white count of 4, hemoglobin 10, hematocrit 30 and a platelet count of 132,000. Differential count shows 66% neutrophils, 25% lymphocytes and 8% monocytes. Her chemistry profile shows a sodium of 145, potassium 4.4, chloride 115, CO2 of 23, BUN of 18, creatinine of 0.9, and a glucose of 77. KUB this morning shows no significant change with basically no clear-cut evidence of an intestinal obstruction. There is no free air. There are no distended bowel loops identified. IMPRESSION: The patient continues to have pain below and lateral to her colostomy. She is not having significant output from her colostomy. Her urine output is excellent and her electrolytes are fine. PLAN: After looking at the KUB, her NG tube is a little bit too far out and I will ask that this be advanced slightly. I am going to order a water-soluble contrast small-bowel follow-through for tomorrow to see if this will better identify the cause of her pains. If she has a persistent obstruction, then surgery may be warranted at this point. I also will ensure that she has a CTA in the morning to assess her nutritional parameters.
[2019-12-03] MEDS: SODIUM CHLORIDE 0.9% INJ 10 ML SYR IV PRN ×3 (08:41→14:17)
[2019-12-03] MEDS ORDERED: ISOVUE-370 76% 100ML VIAL (Q9967) As Ordered ONE (08:51)
[2019-12-03] MEDS ORDERED: GASTROGRAFIN SOLUTION 30ML (Q9963) As Ordered ONE (09:33)
[2019-12-03] MEDS: LIDOCAINE 5% (LIDODERM) PATCH TD SCH (09:39)
[2019-12-03] MEDS: PANTOPRAZOLE 40MG INJ (PROTONIX) (C9113) IV SCH (09:40)
[2019-12-03] MEDS: NYSTATIN 100,000 UNITS/GM TOPICAL PWD 15 GM TOP SCH ×2 (09:40→20:42)
[2019-12-03] MEDS: ONDANSETRON 4MG/2ML VIAL (J2405) IV PRN ×2 (09:41→20:50)
--- NOTE | 2019-12-03 10:25 | REP ---
CT ABDOMEN AND PELVIS WITH IV CONTRAST: TECHNIQUE: Axial contrast enhanced images from the lung bases to the pubic symphysis using 100 mL Isovue 370 intravenous contrast material with multiplanar reformations. COMPARISON: 11/29/2019 The liver is unchanged in appearance. There is mild prominence of the common bile duct unchanged, status post cholecystectomy. Spleen is unremarkable. Benign fat-containing nodules are again noted in the right adrenal gland. Left adrenal gland is unremarkable. Pancreas is unremarkable. The kidneys demonstrate pelviectasis unchanged. There is no abdominal aortic aneurysm. There is no adenopathy. There is no free air or free fluid. I see no bowel wall thickening. Previously noted dilated small bowel loops have resolved, with bowel loops now normal in caliber. Nasogastric tube is seen in the stomach. Urostomy is noted on the right and there is a colostomy on the left. Multiple scattered surgical clips and sutures are seen. No pelvic mass is seen, with no change since the prior study. There are degenerative changes of the spine as well as postsurgical changes. The visualized lung bases demonstrate no acute infiltrate. IMPRESSION: Previously noted dilated small bowel loops have resolved. No current evidence of small bowel obstruction. Postoperative changes as discussed above. Electronically Signed by Kurt Jain MD 12/03/2019 12:55 P
--- NOTE | 2019-12-03 11:59 | REP ---
KUB ABDOMEN AND PELVIS: Two KUB films of abdomen and pelvis are performed prior to a scheduled small bowel series. Bowel gas pattern is normal. No dilated small bowel loops are seen. Today's CT exam of abdomen and pelvis did not show dilated small bowel loops. The dilated small bowel loops from the exam of 11/29/2019 resolved and are now normal in caliber. Contrast material is seen in both pelvicalyceal systems and mildly dilated ureters, emptying through the right sided urostomy. Nasogastric tube is seen with side port in the fundus of the stomach. Given the apparent resolution of small bowel obstruction by CT, the scheduled small bowel series is cancelled, after consultation with Dr. Hallman. Electronically Signed by Kurt Jain MD 12/03/2019 12:58 P
[2019-12-03] MEDS: NS 1,000 ML IV SCH (13:44)
[2019-12-03 14:00] VITALS: BP 123/83
[2019-12-03] MEDS: MORPHINE 2 MG/ML 1ML VIAL (J2270) IV PRN (14:17)
--- NOTE | 2019-12-03 14:37 | IPNPDOC ---
Text Note Date of Service The patient was seen on 12/03/19. NOTE S: Pt examined at bedside. Continues to have abd pain, unchanged from admission. NGT still in with output slowing down. Central line placed yesterday for IV access. Afebrile with some stool output in ostomy. No f/c/cp/sob. Hem odynamically stable. PE: Vitals: see below General: NAD, A&Ox3, uncomfortable from abd pain HEENT: NCAT, EOMI, anicteric sclera, NG tube in place, no blood output CV: RRR, No edema. PPM in left upper chest wall RESP: CTAB, no w/r/r/ ABD: soft, mildly distended, tender to palpation more the left, no rebound, guarding, rigidity. Urostomy with clear output on right of abdomen, and colostomy with brown liquid stool EXTREMITIES: 2+ radial pulses b/l, able to move all extremities NEURO: no focal deficits or acute changes PSYCH: anxious about hospitalization A/P: This is 74-year-old female with extensive PMH listed below. Also has hx of multiple abdominal surgeries in the past done in [place] and recurrent small bowel instructions, most recently discharged 11/15/2019. She presents again for similar complaints of nausea, vomiting, and abdominal distention & pain. Found on admission to have a partial small bowel obstruction again. 1. Partial small bowel obstruction - nausea resolved with NGT in place, still having abd discomfort same since admission - No signs of infection, afebrile without white count - CT on admission revealed: dilated small bowel loops in the central abdomen to the left of midline with air-fluid levels consistent with partial small bowel obstruction - repeat CT reveals: Previously noted dilated small bowel loops have resolved. No current evidence of small bowel obstruction." - Surgery consulted, appreciate input - Per surgery: Continue conservative management; keep NPO, NG tube and IV fluids and hopefully she'll improve. - IV Morphine for pain. Pending small bowel follow through - Will reach out to Surgery for possibly clamping NGT and allowing po intake given resolution of obstruction 2. +UA with ESBL Klebsiella Pneumonia culture - pt has urostomy and chronically colonized with multiple prior urine cultures of the same - no fevers or systemic infection - CT abd negative for pyelonephritis of urologic abnormality/obstruction - hold abx and monitor 3. SUPA on CKD3 - resolved s/p IVF - back to baseline Cr ~1.1-1.2 - Likely prerenal due to decreased by mouth intake and vomiting with small bowel obstruction - Avoid nephrotoxins, continue IV fluids 4. Chronic anemia - pt asymptomatic and hemodynamically stable - Hgb from 11.8 on admission to ~9-10 since then - no visible bleed today, but noted to have scant blood out of NGT on initial days - trend H&H. Transfuse to maintain Hgb >8 For the remainder of her chronic medical conditions as listed below, pt is stable. Thyroid and reflux medications will be switched to IV. Remaining by mouth meds on hold. Monitor blood pressure and give IV antihypertensives as needed. - Hypertension - CAD/dyslipidemia - Iron deficiency anemia - Anemia of chronic disease - Hypothyroidism - GERD - Insomnia - Chronic abdominal pain opiote-dependent - Sinus bradycardia s/p PPM - Paroxysmal AFib on ASA 81mg - DM2 not on meds - RUTHANN on CPAP - Cirrhosis with splenomegaly - Fibromyalgia - RLS - Adrenal Adenoma - Chronic obstructive uropathy bilateral hydronephrosis (s/p urostomy with conduit) DVT ppx: heparin sc DISPO: pending clinical improvement. Will discuss with surgery possibly clamping NGT/starting po. Possibly dc home later this week. VS,Fishbone, I+O VS, Fishbone, I+O Laboratory Tests 12/03/19 05:16 Vital Signs Date Time Temp Pulse Resp B/P (MAP) Pulse Ox O2 Delivery O2 Flow Rate FiO2 12/03/19 09:52 20 12/03/19 06:00 98.0 67 166/73 (104) 99 Nasal Cannula 2.0 I&O- Last 24 Hours up to 6 AM 12/03/19 06:00 Intake Total 1800 ml Output Total 1970 ml Balance -170 ml GME ATTESTATION GME ATTESTATION My faculty preceptor for this patient encounter was physically present during the encounter and was fully available. All aspects of the patient interview, examination, medical decision making process, and medical care plan development were reviewed and approved by the faculty preceptor. The faculty preceptor is aware and concurs with the plan as stated in the body of this note and will attest to such by his/her cosignature. ATTENDING NOTE I, Steven Isabel, have independently examined this patient and performed my own physical exam, as well as reviewed the documentation and edited where necessary. I have discussed in detail with the resident / student the findings and plan of treatment as documented by the resident / student and edited their note. I agree with their findings and treatment plan and have edited their documentation. I will continue to follow the patient during this hospital stay. GREGORY WILKES DO Dec 03, 2019 14:14 STEVEN ISABEL MD Dec 03, 2019 15:49
[2019-12-03] MEDS ORDERED: MAGNESIUM CITRATE 300 ML BTL PO ONE (19:45)
[2019-12-03] MEDS: **NOTE PATIENT COMMENT** MISC XX SCH (20:43)
[2019-12-03 22:00] VITALS: BP 116/75
[2019-12-04] MEDS: HEPARIN SOD (PORCINE) 5000UNITS/ML VIAL (J1644 PER 1000UNITS) SC SCH ×4 (00:14→23:08)
[2019-12-04] MEDS: NS 1,000 ML IV SCH ×2 (01:08→13:59)
[2019-12-04] MEDS: MORPHINE 2 MG/ML 1ML VIAL (J2270) IV PRN ×3 (03:57→19:10)
[2019-12-04 05:24] LABS: BASO % 0.3 % (0.0-1.0); EOS % 0.3 % (0.0-3.0); HEMATOCRIT 28.3 % (36.0-47.0); HEMOGLOBIN 9.4 g/dl (12.0-15.5); LYMPH % 25.6 % (24.0-44.0); MEAN CORPUSCULAR HEMOGLOBIN 30.5 pg (27.0-33.0); MEAN CORPUSCULAR HGB CONC 33.2 g/dl (32.0-36.5); MEAN CORPUSCULAR VOLUME 91.9 fl (80.0-96.0); MONO # 0.3 10^3/uL (0.0-0.8); MONO % 7.6 % (0.0-5.0); NEUTROPHILS # 2.6 10^3/uL (1.5-8.5); NEUTROPHILS % 65.4 % (36.0-66.0); PLATELET COUNT, AUTOMATED 157 10^3/uL (150-450); RED BLOOD COUNT 3.08 10^6/uL (4.00-5.40); WHITE BLOOD COUNT 3.9 10^3/uL (4.0-10.0)
[2019-12-04 05:50] LABS: BLOOD UREA NITROGEN 16 MG/DL (7-18); CALCIUM LEVEL 8.8 MG/DL (8.8-10.2); CARBON DIOXIDE LEVEL 23 MEQ/L (21-32); CHLORIDE LEVEL 114 MEQ/L (98-107); CREATININE FOR GFR 0.86 MG/DL (0.55-1.30); GLOMERULAR FILTRATION RATE > 60.0 (>39); GLUCOSE, FASTING 86 MG/DL (70-100); POTASSIUM SERUM 3.9 MEQ/L (3.5-5.1); SODIUM LEVEL 144 MEQ/L (136-145)
[2019-12-04 06:00] VITALS: BP 173/65
[2019-12-04] MEDS: HumaLOG INSULIN (NovoLOG) PER UNIT SC SCH ×4 (06:00→18:00)
[2019-12-04] MEDS: SODIUM CHLORIDE 0.9% INJ 10 ML SYR IV SCH ×3 (06:28→21:32)
[2019-12-04] MEDS: LEVOTHYROXINE 100MCG (0.1MG) VIAL IV SCH (06:28)
--- NOTE | 2019-12-04 06:58 | IPNPDOC ---
Text Note Date of Service The patient was seen on 12/04/19. NOTE No acute events overnight. Tolerating diet. Denies nausea, emesis, or fevers. She is having increased output from her ostomy and her abd pain is much improved. VSSAF NAD abd - soft, TTP appropriate, ostomy in LLQ labs - below A) 74y/o female with partial SBO secondary to chronic adhesions that has resolved. P) reg soft diet ambulate dc ngt regular laxatives BID d/c home tomorrow if tolerating diet. Fernando Avery DO VS,Fishbone, I+O VS, Fishbone, I+O Laboratory Tests 12/04/19 05:03 Vital Signs Date Time Temp Pulse Resp B/P (MAP) Pulse Ox O2 Delivery O2 Flow Rate FiO2 12/04/19 04:07 17 Room Air 12/03/19 22:00 99.0 69 116/75 (89) 96 12/03/19 21:00 2.0 I&O- Last 24 Hours up to 6 AM 12/04/19 06:00 Intake Total 1920 ml Output Total 2525 ml Balance -605 ml ALEXA AVERY DO Dec 04, 2019 06:58
[2019-12-04] MEDS: MIRALAX *UNIT DOSE* 17GM PACKET PO SCH ×2 (08:53→21:31)
[2019-12-04] MEDS: LIDOCAINE 5% (LIDODERM) PATCH TD SCH (08:55)
[2019-12-04] MEDS: NYSTATIN 100,000 UNITS/GM TOPICAL PWD 15 GM TOP SCH ×2 (08:55→21:31)
[2019-12-04] MEDS: PANTOPRAZOLE 40MG INJ (PROTONIX) (C9113) IV SCH (08:55)
[2019-12-04] MEDS: MORPHINE 4 MG/ML 1ML VIAL/SYRINGE (J2270) IV PRN ×2 (08:56→21:47)
[2019-12-04] MEDS ORDERED: diphenhydrAMINE 25MG CAP PO PRN (12:00)
[2019-12-04] MEDS: PRAVASTATIN 20 MG TAB PO SCH (13:59)
[2019-12-04 14:00] VITALS: BP 120/73
[2019-12-04] MEDS: FERROUS SULFATE 325MG TAB PO SCH (14:00)
[2019-12-04] MEDS: CYANOCOBALAMIN 500 MCG TAB PO SCH (14:00)
[2019-12-04] MEDS: amLODIPine 5 MG TAB PO SCH (14:01)
[2019-12-04] MEDS: lisinopriL 20 MG TAB PO SCH (14:01)
[2019-12-04] MEDS: SODIUM CHLORIDE 0.9% INJ 10 ML SYR IV PRN ×2 (14:10→15:21)
--- NOTE | 2019-12-04 15:00 | IPNPDOC ---
Text Note Date of Service The patient was seen on 12/04/19. NOTE S: Pt examined at bedside. NGT removed earlier today and pt is toelrating soft diet well. Nausea and abd pain improved since NGT out. Imaging shows resolved obstruction. Pt has no new complaints or reported events overnight. PE: Vitals: see below General: NAD, A&Ox3, laying comfortably HEENT: NCAT, EOMI, anicteric sclera, NG tube removed CV: RRR, No edema. PPM in left upper chest wall RESP: CTAB, no w/r/r/ ABD: soft, minimally distended, no tenderness to palpation, no rebound, guarding, rigidity. Urostomy with clear output on right of abdomen, and colostomy with brown liquid stool EXTREMITIES: 2+ radial pulses b/l, able to move all extremities NEURO: no focal deficits or acute changes PSYCH: anxious about hospitalization A/P: This is 74-year-old female with extensive PMH listed below. Also has hx of multiple abdominal surgeries in the past done in [place] and recurrent small bowel instructions, most recently discharged 11/15/2019. She presents again for similar complaints of nausea, vomiting, and abdominal distention & pain. Found on admission to have a partial small bowel obstruction again. 1. Partial small bowel obstruction - nausea & abd pain resolved since NGT removed this am 12/03 - Imaging reveals: "Previously noted dilated small bowel loops have resolved. No current evidence of small bowel obstruction."- - Surgery consulted, appreciate input - Per surgery: NGT removed today, advance to soft mechanical diet and monitor po intake, dc home tomorrow if tolerates - resume home po meds and monitor symptomatically. D/C IVF if tolerating po 2. +UA with ESBL Klebsiella Pneumonia culture - pt has urostomy and chronically colonized with multiple prior urine cultures of the same - no fevers or systemic infection, no leukocytosis or abd pain - CT abd negative for pyelonephritis of urologic abnormality/obstruction - hold abx and monitor 3. SUPA on CKD3 - resolved s/p IVF - Likely prerenal due to decreased by mouth intake and vomiting with small bowel obstruction prior to admission - Avoid nephrotoxins, continue IV fluids 4. Chronic anemia - pt asymptomatic and hemodynamically stable - Hgb from 11.8 on admission to ~9-10 since then - Noted to have scant blood out of NGT on initial days, but no other blood loss - resumed on po iron; monitor For the remainder of her chronic medical conditions as listed below, pt is stable. Home meds resumed with hold parameters. Monitor. - Hypertension - CAD/dyslipidemia - Iron deficiency anemia - Anemia of chronic disease - Hypothyroidism - GERD - Insomnia - Chronic abdominal pain opiote-dependent - Sinus bradycardia s/p PPM - Paroxysmal AFib on ASA 81mg - DM2 not on meds - RUTHANN on CPAP - Cirrhosis with splenomegaly - Fibromyalgia - RLS - Adrenal Adenoma - Chronic obstructive uropathy bilateral hydronephrosis (s/p urostomy with conduit) DVT ppx: heparin sc DISPO: pending clinical improvement & HSE. Likely dc home 24-48 hrs. VS,Fishbone, I+O VS, Fishbone, I+O Laboratory Tests 12/04/19 05:03 Vital Signs Date Time Temp Pulse Resp B/P (MAP) Pulse Ox O2 Delivery O2 Flow Rate FiO2 12/04/19 14:12 20 12/04/19 14:01 120/73 12/04/19 14:01 67 12/04/19 14:00 99.1 98 Room Air 12/03/19 21:00 2.0 I&O- Last 24 Hours up to 6 AM 12/04/19 06:00 Intake Total 2160 ml Output Total 2875 ml Balance -715 ml GME ATTESTATION GME ATTESTATION My faculty preceptor for this patient encounter was physically present during the encounter and was fully available. All aspects of the patient interview, examination, medical decision making process, and medical care plan development were reviewed and approved by the faculty preceptor. The faculty preceptor is aware and concurs with the plan as stated in the body of this note and will attest to such by his/her cosignature. ATTENDING NOTE I, Juve Awad, have independently examined this patient and performed my own physical exam, as well as reviewed the documentation and edited where necessary. I have discussed in detail with the resident / student the findings and plan of treatment as documented by the resident / student and edited their note. I agree with their findings and treatment plan and have edited their documentation. We will continue to follow the patient during this hospital stay and likely discharge home tomorrow if she tolerates her diet well without new complaints. GREGORY WILKES DO Dec 04, 2019 15:00 JUVE AWAD MD Dec 05, 2019 11:33
[2019-12-04] MEDS: PREGABALIN 100 MG CAP (LYRICA) PO SCH ×2 (15:20→21:32)
[2019-12-04] MEDS ORDERED: traZODone 100 MG TAB PO SCH (21:00)
[2019-12-04] MEDS ORDERED: HumaLOG INSULIN (NovoLOG) PER UNIT SC SCH (21:00)
[2019-12-04] MEDS ORDERED: ASPIRIN 81 MG ENTERIC TAB PO SCH (21:00)
[2019-12-04] MEDS: **NOTE PATIENT COMMENT** MISC XX SCH (21:32)
[2019-12-04 22:00] VITALS: BP 153/60
[2019-12-05] MEDS: SODIUM CHLORIDE 0.9% INJ 10 ML SYR IV SCH (05:05)
[2019-12-05 05:13] LABS: BASO % 0.5 % (0.0-1.0); EOS # 0.1 10^3/uL (0.0-0.5); EOS % 1.7 % (0.0-3.0); HEMATOCRIT 27.8 % (36.0-47.0); HEMOGLOBIN 9.6 g/dl (12.0-15.5); LYMPH # 1.6 10^3/uL (1.5-5.0); LYMPH % 39.8 % (24.0-44.0); MEAN CORPUSCULAR HGB CONC 34.5 g/dl (32.0-36.5); MEAN CORPUSCULAR VOLUME 89.7 fl (80.0-96.0); MONO # 0.4 10^3/uL (0.0-0.8); MONO % 8.6 % (0.0-5.0); NEUTROPHILS % 48.7 % (36.0-66.0); PLATELET COUNT, AUTOMATED 147 10^3/uL (150-450); WHITE BLOOD COUNT 4.1 10^3/uL (4.0-10.0)
[2019-12-05 05:41] LABS: BLOOD UREA NITROGEN 11 MG/DL (7-18); CALCIUM LEVEL 8.3 MG/DL (8.8-10.2); CARBON DIOXIDE LEVEL 29 MEQ/L (21-32); CHLORIDE LEVEL 110 MEQ/L (98-107); CREATININE FOR GFR 0.84 MG/DL (0.55-1.30); GLOMERULAR FILTRATION RATE > 60.0 (>39); GLUCOSE, FASTING 89 MG/DL (70-100); MAGNESIUM LEVEL 1.7 MG/DL (1.8-2.4); POTASSIUM SERUM 3.1 MEQ/L (3.5-5.1); SODIUM LEVEL 144 MEQ/L (136-145)
[2019-12-05 06:00] VITALS: BP 142/57
[2019-12-05] MEDS ORDERED: LEVOTHYROXINE 50MCG TABLET (0.05MG) PO SCH (06:00)
[2019-12-05] MEDS: HumaLOG INSULIN (NovoLOG) PER UNIT SC SCH ×2 (07:30→12:00)
[2019-12-05] MEDS: MIRALAX *UNIT DOSE* 17GM PACKET PO SCH (08:55)
[2019-12-05 08:56] VITALS: BP 141/59
[2019-12-05] MEDS: lisinopriL 20 MG TAB PO SCH (08:56)
[2019-12-05] MEDS: PRAVASTATIN 20 MG TAB PO SCH (08:59)
[2019-12-05] MEDS: NYSTATIN 100,000 UNITS/GM TOPICAL PWD 15 GM TOP SCH (09:00)
[2019-12-05] MEDS: CYANOCOBALAMIN 500 MCG TAB PO SCH (09:00)
[2019-12-05] MEDS ORDERED: oxyCODONE 20 MG CR TAB PO SCH (09:00)
[2019-12-05] MEDS: PREGABALIN 100 MG CAP (LYRICA) PO SCH (09:00)
[2019-12-05] MEDS: FERROUS SULFATE 325MG TAB PO SCH (09:00)
[2019-12-05] MEDS: amLODIPine 5 MG TAB PO SCH (09:00)
[2019-12-05] MEDS ORDERED: PANTOPRAZOLE 40MG TAB (PROTONIX) PO SCH (09:00)
[2019-12-05] MEDS: HEPARIN SOD (PORCINE) 5000UNITS/ML VIAL (J1644 PER 1000UNITS) SC SCH (09:01)
[2019-12-05] MEDS: LIDOCAINE 5% (LIDODERM) PATCH TD SCH (09:01)
[2019-12-05] MEDS ORDERED: MAG SULF 1GM/100ML (MAG RUN) 1 GM in IV 1 EA IV ONE (10:00)
[2019-12-05] MEDS ORDERED: POTASSIUM CHLORIDE 10 MEQ SR TABLET PO ONE (10:00)
[2019-12-05] MEDS: SODIUM CHLORIDE 0.9% INJ 10 ML SYR IV PRN (11:56)
--- NOTE | 2019-12-05 14:51 | DS.PDOC ---
Discharge Summary General Date of Admission Nov 29, 2019 at 16:05 Date of Discharge 12/05/19 Attending Physician: JUVE AWAD MD Specialist/Consultants Involve General surgery: Dr. Hallman, Dr. Avery Discharge Summary PROCEDURES PERFORMED DURING STAY: TLC placed for poor venous access DISCHARGE DIAGNOSES: 1.Partial small bowel obstruction 2.+UA with ESBL Klebsiella Pneumonia culture 3.SUPA on CKD3 4.Chronic anemia 5.Hypertension 6.CAD/dyslipidemia 7.Iron deficiency anemia 8.Anemia of chronic disease 9.Hypothyroidism 10.GERD 11.Insomnia 12.Chronic abdominal pain opiote-dependent 13.Sinus bradycardia s/p PPM 14.Paroxysmal AFib on ASA 81mg 15.DM2 not on meds 16.RUTHANN on CPAP 17.Cirrhosis with splenomegaly 18.Fibromyalgia 19.RLS 20.Adrenal Adenoma 21.Chronic obstructive uropathy bilateral hydronephrosis (s/p urostomy with conduit) HISTORY OF PRESENT ILLNESS: This is 74-year-old female with extensive PMH listed above. Also has hx of multiple abdominal surgeries in the past done in [place] and recurrent small bowel obstructions, most recently discharged 11/15/2019, at which point, her SBO was managed conservatively. She presents again for similar complaints of nausea, vomiting, and abdominal distention & pain. Found on admi ssion to have a partial small bowel obstruction again. HOSPITAL COURSE: Patient was admitted. Surgery consulted. Per their recommendations, nothing by mouth, NG tube, IV fluids. She gradually improved with supportive care over time. Per surgery, this will likely reoccur again in the future and at that point, she should follow-up with her regular surgeons in [place] for further intervention. Of note, given her continued abdominal pain, workup revealed positive UA with ESBL Escherichia coli, Klebsiella pneumonia, Enterococcus faecalis, however patient had no complaints or signs of fevers or systemic infection. Imaging was negative for urologic abnormality, and per her chart, it appears she is colonized with multiple prior urine cultures of the same organisms. She did well without antibiotics. She also had a GI during her stay which resolved with supportive care and IV fluids, likely prerenal due to decreased by mouth intake and increased vomiting with small bowel obstruction prior to admission. Repeat imaging ultimately revealed resolution of her obstruction, & NGT removed 12/03. She tolerated her diet as it was advanced slowly, and was cleared for discharge after her home safety eval. DISCHARGE MEDICATIONS: Please see below. ALLERGIES: Please see below. PHYSICAL EXAMINATION ON DISCHARGE: Vitals: see below General: NAD, A&Ox3, laying comfortably HEENT: NCAT, EOMI, anicteric sclera CV: RRR, No edema. PPM in left upper chest wall RESP: CTAB, no w/r/r/ ABD: soft, minimally distended, no tenderness to palpation, no rebound, guarding, rigidity. Urostomy with clear output on right of abdomen, and colostomy with brown liquid stool on left abdomen EXTREMITIES: 2+ radial pulses b/l, able to move all extremities NEURO: no focal deficits or acute changes PSYCH: normal mood & affect LABORATORY DATA: Please see below. IMAGING: * 11/29/2019 CT abdomen and pelvis:Dilated small bowel loops in the central abdomen to the left of midline with air-fluid levels. Transition to normal caliber distal small bowel loops consistent with partial small bowel obstruction pattern. Postoperative changes including urinary diversion ileostomy and left lower quadrant colostomy. Post cholecystectomy. * 12/03/2019 CT abdomen pelvis: Previously noted dilated small bowel loops have resolved. No current evidence of small bowel obstruction. Postoperative changes as discussed above. PROGNOSIS: fair ACTIVITY: As tolerated. DIET: high fiber DISPOSITION: home DISCHARGE INSTRUCTIONS: 1. Follow-up with PCP within a week, surgery 2-3 weeks 2. Return to ER for emergency DISCHARGE CONDITION: Stable. TIME SPENT ON DISCHARGE: Greater than 35 minutes. Vital Signs/I&Os Vital Signs Date Time Temp Pulse Resp B/P (MAP) Pulse Ox O2 Delivery O2 Flow Rate FiO2 12/05/19 09:00 63 12/05/19 08:59 18 12/05/19 08:56 141/59 12/05/19 06:00 98.3 93 Room Air 12/04/19 21:00 2.0 I&O- Last 24 Hours up to 6 AM 12/05/19 06:00 Intake Total 3030 ml Output Total 2275 ml Balance 755 ml Laboratory Data Labs 24H Laboratory Tests 2 12/04/19 16:45: Bedside Glucose (Misc Panel) 106 12/04/19 20:34: Bedside Glucose (Misc Panel) 148H 12/05/19 05:04: Immature Granulocyte % (Auto) 0.7, Neutrophils (%) (Auto) 48.7, Lymphocytes (%) (Auto) 39.8, Monocytes (%) (Auto) 8.6H, Eosinophils (%) (Auto) 1.7, Basophils (%) (Auto) 0.5, Neutrophils # (Auto) 2.0, Lymphocytes # (Auto) 1.6, Monocytes # (Auto) 0.4, Eosinophils # (Auto) 0.1, Basophils # (Auto) 0.0, Nucleated Red Blood Cells % (auto) 0.0, Anion Gap 5L, Glomerular Filtration Rate > 60.0, Calcium Level 8.3L, Magnesium Level 1.7L CBC/BMP Laboratory Tests 12/05/19 05:04 FSBS Laboratory Tests Test 12/04/19 16:45 12/04/19 20:34 Range/Units Bedside Glucose (Misc Panel) 106 148 83-110 MG/DL Microbiology Microbiology 12/01/19 Urine Culture - Final, Complete Klebsiella Pneumoniae Esbl Staphylococcus Epidermidis Enterococcus Faecalis Discharge Medications Scheduled Amlodipine Besylate (Amlodipine Besylate) 5 Mg Tablet, 5 MG PO DAILY, (Reported) Aspirin (Aspirin EC) 81 Mg Tabec, 81 MG PO QHS, (Reported) Cyanocobalamin (Vitamin B-12) (Vitamin B-12) 1,000 Mcg Tab, 1,000 MCG PO DAILY, (Reported) Ferrous Sulfate (Ferrous Sulfate) 325 Mg Tab, 325 MG PO DAILY, (Reported) Levothyroxine Sodium (Levothyroxine Sodium) 50 Mcg Tab, 50 MCG PO DAILY, (Reported) Lisinopril (Lisinopril) 20 Mg Tablet, 20 MG PO DAILY, (Reported) Magnesium Oxide (Magnesium Oxide) 400 Mg Tablet, 400 MG PO BID, (Reported) Metaxalone (Skelaxin) 800 Mg Tab, 800 MG PO TID, (Reported) Oxycodone HCl (Oxycodone HCl ER) 20 Mg Tab, 20 MG PO BID, (Reported) TAKES AT 0900 and 2300 Oxycodone HCl (Oxycodone HCl) 10 Mg Tablet, 10 MG PO BID, (Reported) TAKES AT 1500 and 2300 Pantoprazole Sodium (Pantoprazole Sodium) 40 Mg Tablet.dr, 40 MG PO QHS, (Reported) Pravastatin Sodium (Pravastatin Sodium) 20 Mg Tab, 20 MG PO DAILY, (Reported) Pregabalin (Lyrica) 100 Mg Cap, 100 MG PO TID, (Reported) Trazodone HCl (Trazodone HCl) 100 Mg Tablet, 100 MG PO QHS, (Reported) Scheduled PRN Diphenhydramine HCl (Diphenhydramine HCl) 25 Mg Capsule, 50 MG PO QHS PRN for SLEEP, (Reported) Furosemide (Lasix) 20 Mg Tablet, 20 MG PO QHS PRN for EDEMA, (Reported) Lidocaine (Lidocaine) 5 % Pad, 3 PATCH TOP DAILY PRN for PAIN, (Reported) USES ON BACK AND NECK Nitroglycerin (Nitroglycerin) 0.4 Mg Sub, 0.4 MG SL NITRO PRN for CHEST PAIN, (Reported) Polyethylene Glycol 3350 (Miralax) 119 Gm Powder, 17 GM PO Q2D PRN for CONSTIPATION, (Reported) Allergies Coded Allergies: pneumococcal vaccine (Verified Allergy, Intermediate, hives, 10/10/19) Corticosteroids (Glucocorticoids) (Verified Allergy, Unknown, 10/10/19) codeine (Verified Allergy, Unknown, 10/10/19) pt has had morphine in the past influenza virus vacc trivalent, spl (Verified Adverse Reaction, Severe, coma, 10/10/19) influenza virus vaccine tv 2013-14(18-49 yrs),rcmb (Verified Adverse Reaction, Severe, flu vaccine - coma, 10/10/19) TAPE (Verified Adverse Reaction, Mild, BLISTERS, 10/10/19) clonidine (Verified Adverse Reaction, Mild, faint, 10/10/19) quinapril (Verified Adverse Reaction, Mild, passed out, 10/10/19) zolpidem (Verified Adverse Reaction, Mild, sleep walking, 10/10/19) GME ATTESTATION GME ATTESTATION My faculty preceptor for this patient encounter was physically present during the encounter and was fully available. All aspects of the patient interview, examination, medical decision making process, and medical care plan development were reviewed and approved by the faculty preceptor. The faculty preceptor is aware and concurs with the plan as stated in the body of this note and will attest to such by his/her cosignature. ATTENDING NOTE I, Juve Awad, have independently examined this patient and performed my own physical exam, as well as reviewed the documentation and edited where necessary. I have discussed in detail with the resident / student the findings and plan of treatment as documented by the resident / student and edited their note. Briefly, Ms. Miller has a history of extensive abdominal surgeries c/b adhesions and frequent admissions for interstinal blockages, who was admitted for an SBO who is now being discharged home after medical management and improvement of symptoms, resolution of pain and now tolerating PO. GREGORY WILKES DO Dec 05, 2019 14:51 JUVE AWAD MD Dec 06, 2019 08:38
== END 2019-12-05 14:20 | disposition home or self-care (01) | DRG 389 ==
LOC: EDBD 11:48 → M ED 11:48 → M ED INP 16:05 → ENRESERV 16:50 → M PCU 18:28 → M MSPAV 12-01 12:42
PROVIDERS: ADMIT Internal Medicine; ATTEND Internal Medicine
PROC: 02HV33Z Insertion of Infusion Device into Superior Vena Cava, Percutaneous Approach (ICD-10-PCS; principal; 2019-12-01)
DX: K56.600 Partial intestinal obstruction, unspecified as to cause (principal); N11.1 Chronic obstructive pyelonephritis; N17.9 Acute kidney failure, unspecified; T85.598A Other mechanical complication of other gastrointestinal prosthetic devices, implants and grafts, initial encounter; B96.1 Klebsiella pneumoniae [K. pneumoniae] as the cause of diseases classified elsewhere; E03.9 Hypothyroidism, unspecified; E11.8 Type 2 diabetes mellitus with unspecified complications; E78.5 Hyperlipidemia, unspecified; D50.0 Iron deficiency anemia secondary to blood loss (chronic); D35.00 Benign neoplasm of unspecified adrenal gland; G25.81 Restless legs syndrome; G47.33 Obstructive sleep apnea (adult) (pediatric); G47.00 Insomnia, unspecified; I12.9 Hypertensive chronic kidney disease with stage 1 through stage 4 chronic kidney disease, or unspecified chronic kidney disease; I48.0 Paroxysmal atrial fibrillation; K74.60 Unspecified cirrhosis of liver; K66.0 Peritoneal adhesions (postprocedural) (postinfection); K21.9 Gastro-esophageal reflux disease without esophagitis; M79.7 Fibromyalgia; N18.3 Chronic kidney disease, stage 3 (moderate); R00.1 Bradycardia, unspecified; R11.0 Nausea; R16.1 Splenomegaly, not elsewhere classified; Z79.82 Long term (current) use of aspirin; Z79.891 Long term (current) use of opiate analgesic; Z79.899 Other long term (current) drug therapy; Z88.7 Allergy status to serum and vaccine; Z88.5 Allergy status to narcotic agent; Z88.1 Allergy status to other antibiotic agents; Z88.8 Allergy status to other drugs, medicaments and biological substances; Z91.040 Latex allergy status; Z90.49 Acquired absence of other specified parts of digestive tract; Z90.79 Acquired absence of other genital organ(s); Z93.3 Colostomy status; Z93.6 Other artificial openings of urinary tract status

== ENCOUNTER → 2019-12-31 | Outpatient (REF) | payer MEDICARE, BC | LOC: M LAB REF 16:39 | PROVIDERS: ATTEND Internal Medicine Nephrology | DX: N39.0 Urinary tract infection, site not specified (principal) ==

== ENCOUNTER → 2020-01-13 | Outpatient (CLI) | payer MEDICARE, BC | LOC: M LABSMTC 10:40 | PROVIDERS: ATTEND Anesthesiology | DX: Z01.812 Encounter for preprocedural laboratory examination (principal); Z11.59 Encounter for screening for other viral diseases ==

== ENCOUNTER 2020-01-16 07:27 | Day surgery (SDC) | payer MEDICARE, BC ==
[~2020-01-16] VITALS: Ht 165.1 cm; Wt 78.5 kg
[~2020-01-16 07:27] MED LIST changes: +NS 1,000 ML IV ONE
[2020-01-16] MEDS ORDERED: propofoL 500 MG/50 ML VIAL As Ordered ONE (10:03)
[2020-01-16] MEDS ORDERED: LIDOCAINE 2% 100MG/5ML SDV (FOR ANES.) As Ordered ONE (10:03)
[2020-01-16] MEDS ORDERED: fentaNYL 100 MCG/2 ML INJECTION (J3010) As Ordered ONE (10:03)
--- NOTE | 2020-01-16 10:17 | ROOR ---
Patient Name: Uzma Miller Procedure Date: 01/16/2020 9:59 AM Date of : 1945 Age: 74 Room: [facility] Gender: Female Note Status: Finalized Procedure: Upper Endoscopy + Biopsies Indications: Iron deficiency anemia Providers: Dar Oneal MD Referring MD: Jhoana Kat NP Requesting Provider: Medicines: Monitored Anesthesia Care Complications: No immediate complications. Procedure: Pre-Anesthesia Assessment: - The heart rate, respiratory rate, oxygen saturations, blood pressure, adequacy of pulmonary ventilation, and response to care were monitored throughout the procedure. The Endoscope was introduced through the mouth, and advanced to the second part of duodenum. The upper GI endoscopy was accomplished without difficulty. The patient tolerated the procedure well. Findings: The Z-line was regular and was found 40 cm from the incisors. No other significant abnormalities were identified in a careful examination of the stomach. Biopsies were taken with a cold forceps in the gastric antrum for Helicobacter pylori testing. The exam of the duodenum was otherwise normal. Biopsies for histology were taken with a cold forceps in the first portion of the duodenum for evaluation of celiac disease. The exam was otherwise without abnormality. Impression: - Z-line regular, 40 cm from the incisors. - The examination was otherwise normal. - Biopsies were taken with a cold forceps for Helicobacter pylori testing. - Biopsies were taken with a cold forceps for evaluation of celiac disease. - The examination was otherwise normal. Recommendation: - Patient has a contact number available for emergencies. The signs and symptoms of potential delayed complications were discussed with the patient. Return to normal activities tomorrow. Written discharge instructions were provided to the patient. - High fiber diet. - Discharge patient to home. - Continue present medications. - Await pathology results. - Telephone GI clinic for pathology results in 1 week. - Return to referring physician. - The findings and recommendations were discussed with the patient. Dar Oneal MD Dar Oneal MD 01/16/2020 10:17:41 AM Electronically signed by Dar Oneal MD Number of Addenda: 0 Note Initiated On: 01/16/2020 9:59 AM Estimated Blood Loss: Estimated blood loss: none.
--- NOTE | 2020-01-16 10:42 | ROOR ---
Patient Name: Uzma Miller Procedure Date: 01/16/2020 10:00 AM Date of : 1945 Age: 74 Room: [facility] Gender: Female Note Status: Finalized Procedure: Colonoscopy to Anastomosis Indications: Iron deficiency anemia Providers: Dar Oneal MD Referring MD: Jhoana Kat NP Requesting Provider: Medicines: Monitored Anesthesia Care Complications: No immediate complications. Procedure: Pre-Anesthesia Assessment: - The heart rate, respiratory rate, oxygen saturations, blood pressure, adequacy of pulmonary ventilation, and response to care were monitored throughout the procedure. The Colonoscope was introduced through the sigmoid colostomy and advanced to the ileocolonic anastomosis. The colonoscopy was performed without difficulty. The patient tolerated the procedure well. The quality of the bowel preparation was good. Findings: The exam was otherwise normal throughout the examined colon. Impression: - No specimens collected. - The entire examined colon is normal. Recommendation: - Patient has a contact number available for emergencies. The signs and symptoms of potential delayed complications were discussed with the patient. Return to normal activities tomorrow. Written discharge instructions were provided to the patient. - Discharge patient to home. - Continue present medications. - Return to referring physician. - The findings and recommendations were discussed with the patient. Dar Oneal MD Dar Oneal MD 01/16/2020 10:42:08 AM Electronically signed by Dar Oneal MD Number of Addenda: 0 Note Initiated On: 01/16/2020 10:00 AM Estimated Blood Loss: Estimated blood loss: none.
[2020-01-16 10:50] VITALS: BP 118/72
== END 2020-01-16 11:20 | disposition home or self-care (01) ==
LOC: M OPP 07:27
PROVIDERS: ATTEND Internal Medicine Gastroenterology
DX: D50.9 Iron deficiency anemia, unspecified (principal); I48.91 Unspecified atrial fibrillation; I50.9 Heart failure, unspecified; E11.9 Type 2 diabetes mellitus without complications; Z79.82 Long term (current) use of aspirin; Z79.891 Long term (current) use of opiate analgesic; Z79.899 Other long term (current) drug therapy; Z88.5 Allergy status to narcotic agent; Z88.7 Allergy status to serum and vaccine; Z88.8 Allergy status to other drugs, medicaments and biological substances; Z91.048 Other nonmedicinal substance allergy status; Z93.3 Colostomy status; Z96.0 Presence of urogenital implants
CPT/HCPCS: 43239; 44388; 88305; J3010

== ENCOUNTER → 2020-02-05 | Outpatient (REF) | payer MEDICARE, BC ==
[~2020-02-05] MED LIST changes: +AMLO1TAB24 PO; -AMLO5TAB6 PO; -LISI-538 PO; +LISI20TA33 PO; -NS 1,000 ML IV ONE; -PANT20TA2 PO; +PANT20TA6 PO; +PANT40TA29 PO; -PANT40TA3 PO
== END ==
LOC: M LAB REF 18:17
PROVIDERS: ATTEND Nurse Practitioner Adult Health
DX: N18.3 Chronic kidney disease, stage 3 (moderate) (principal)

== ENCOUNTER → 2020-03-12 | Outpatient (REF) | payer MEDICARE, BC ==
[~2020-03-12] MED LIST changes: +LISI-538 PO; -LISI20TA33 PO
[2020-03-12 18:02] LABS: PERCENT SATURATION 75.8 % (13.2-45.0)
== END ==
LOC: M LAB REF 16:47
PROVIDERS: ATTEND Nurse Practitioner Adult Health
DX: N18.9 Chronic kidney disease, unspecified (principal); D63.1 Anemia in chronic kidney disease

== ENCOUNTER → 2020-03-20 | Outpatient (CLI) | payer MEDICARE, BC ==
--- NOTE | 2020-05-09 09:35 | REP ---
ULTRASOUND OF THE ANTERIOR ABDOMINAL WALL: HISTORY: Cutaneous abscess and drainage. FINDINGS/IMPRESSION: Real time ultrasound evaluation of the anterior abdominal wall is performed at the site of 2 areas of cutaneous drainage inferior to the umbilicus. At these 2 locations, there are tracts beneath the skin which extend to the anterior abdominal wall musculature. No discrete fluid collection or abscess is seen at either location. MTDD
== END ==
LOC: M RAD 10:00
PROVIDERS: ATTEND Nurse Practitioner
DX: L02.91 Cutaneous abscess, unspecified (principal)

== ENCOUNTER → 2020-06-05 | Outpatient (REF) | payer MEDICARE, BC | LOC: M LAB REF 17:10 | PROVIDERS: ATTEND Internal Medicine Nephrology | DX: N39.0 Urinary tract infection, site not specified (principal) ==

== ENCOUNTER → 2020-06-18 | Outpatient (CLI) | payer MEDICARE, BC | LOC: M LABSMTC 12:54 | PROVIDERS: ATTEND Anesthesiology | DX: Z01.818 Encounter for other preprocedural examination (principal) | CPT/HCPCS: C9803; U0003 ==

== ENCOUNTER 2020-06-23 11:08 | Day surgery (SDC) | payer MEDICARE, BC ==
[~2020-06-23] VITALS: Ht 165.1 cm; Wt 79.3 kg
[~2020-06-23 11:08] MED LIST changes: +NS 1,000 ML IV ONE
[2020-06-23] MEDS ORDERED: propofoL 200 MG/20 ML VIAL As Ordered ONE (11:44)
[2020-06-23] MEDS ORDERED: LIDOCAINE 2% 100MG/5ML SDV (FOR ANES.) As Ordered ONE (11:44)
--- NOTE | 2020-06-23 12:00 | ROOR ---
Patient Name: Uzma Miller Procedure Date: 06/23/2020 11:37 AM Date of : 1945 Age: 75 Room: [facility] Gender: Female Note Status: Finalized Procedure: Colonoscopy through colostomy and ileostomy Indications: Iron deficiency anemia Providers: Dar Oneal MD Referring MD: Jhoana Kat NP Requesting Provider: Medicines: Monitored Anesthesia Care Complications: No immediate complications. Procedure: Pre-Anesthesia Assessment: - The heart rate, respiratory rate, oxygen saturations, blood pressure, adequacy of pulmonary ventilation, and response to care were monitored throughout the procedure. The Colonoscope was introduced through the descending colostomy and advanced to the terminal ileum, with identification of the appendiceal orifice and IC valve. The colonoscopy was performed without difficulty. The patient tolerated the procedure well. The quality of the bowel preparation was good. Findings: There was evidence of a patent end colostomy in the sigmoid colon. This was characterized by healthy appearing mucosa. The exam was otherwise without abnormality. The terminal ileum appeared normal. The exam was otherwise without abnormality. Impression: - Patent end colostomy with healthy appearing mucosa in the sigmoid colon. - The examination was otherwise normal. - The examined portion of the ileum was normal. - The examination was otherwise normal. - No specimens collected. - The exam was otherwise normal to the cecum. Recommendation: - Patient has a contact number available for emergencies. The signs and symptoms of potential delayed complications were discussed with the patient. Return to normal activities tomorrow. Written discharge instructions were provided to the patient. - Resume previous diet. - Discharge patient to home. - Continue present medications. - Return to referring physician. - The findings and recommendations were discussed with the patient. Dar Oneal MD Dar Oneal MD 06/23/2020 12:00:36 PM Electronically signed by Dar Oneal MD Number of Addenda: 0 Note Initiated On: 06/23/2020 11:37 AM Estimated Blood Loss: Estimated blood loss: none.
[2020-06-23 12:15] VITALS: BP 130/69
== END 2020-06-23 12:29 | disposition home or self-care (01) ==
LOC: M OPP 11:08
PROVIDERS: ATTEND Internal Medicine Gastroenterology
DX: D50.9 Iron deficiency anemia, unspecified (principal); Z93.3 Colostomy status; I48.91 Unspecified atrial fibrillation; I51.9 Heart disease, unspecified; Z79.899 Other long term (current) drug therapy; Z88.8 Allergy status to other drugs, medicaments and biological substances; Z91.048 Other nonmedicinal substance allergy status; Z95.5 Presence of coronary angioplasty implant and graft

== ENCOUNTER → 2020-08-26 | Outpatient (REF) | payer MEDICARE, BC ==
[~2020-08-26] MED LIST changes: -NS 1,000 ML IV ONE
== END ==
LOC: M LAB REF 18:27
PROVIDERS: ATTEND Internal Medicine Nephrology
DX: N39.0 Urinary tract infection, site not specified (principal)

== ENCOUNTER → 2020-10-07 | Outpatient (CLI) | payer MEDICARE, BC ==
[~2020-10-07] MED LIST changes: -LISI-538 PO; +LISI20TA33 PO
--- NOTE | 2020-10-08 08:18 | REP ---
INDICATION: SOB. COMPARISON: PA chest 11/29/2019. TECHNIQUE: Two views FINDINGS: The dual lead pacer over the left mid chest noted with leads terminating in the right atrium and right ventricle as before. Lungs are well inflated CP angles show no definite effusion. There is no dense consolidation, pulmonary nodule or mass visible. The heart is mildly enlarged. There is no vascular redistribution or pulmonary edema. The aorta is minimally tortuous and follows the dextro rotatory curve of the thoracic spine. No gross aneurysm. Airway intact. No widening of mediastinum. The jason are symmetric and unremarkable. Bony thorax shows diffuse marginal osteophytes and syndesmophytes throughout without acute compression deformity. Visualized ribs, clavicles and shoulders intact. No free air under the diaphragm. IMPRESSION: 1. Some mild cardiomegaly with left ventricular configuration but no vascular redistribution or pulmonary edema. Dual lead pacer unchanged. 2. Some mild hyperinflation without pleural effusion, acute infiltrate, parenchymal mass or visible nodule. 3. Dextrorotatory thoracolumbar scoliosis with diffuse marginal osteophytes throughout. <Electronically signed by Geoff Patel > 10/08/20 0834
== END ==
LOC: M WUC 15:13
PROVIDERS: ATTEND Nurse Practitioner Adult Health
DX: R06.02 Shortness of breath (principal)
CPT/HCPCS: 71046; U0003

== ENCOUNTER 2021-04-09 12:34 | Inpatient (IN) | payer MEDICARE, BC ==
[~2021-04-09] VITALS: Ht 165.1 cm; Wt 83.0 kg
[2021-04-09] VITALS (7 sets, daily range): BP systolic 152–178; BP diastolic 64–73; O2SAT 94–99
[~2021-04-09 12:34] MED LIST changes: +ASPI-569 PO; -ASPI81TAEC PO; +BACTDSTA PO; +METH-1177 PO; -METH10TA2 PO; +OMEP40CA4 PO; -OMEP40CA97 PO; -SULF1TAB93 PO
--- NOTE | 2021-04-09 14:04 | REP ---
INDICATION: rule out bronchial foreign body. COMPARISON: CT 11/14/2016. TECHNIQUE: CT chest performed without the use of intravenous contrast. Sagittal and coronal reconstruction images are performed. FINDINGS: Lungs: Clear, no infiltrate or nodule. There are mild scattered fibrotic changes and bronchiectasis again noted. No foreign body is seen in the bronchial tree. Mediastinum: No gross adenopathy. Zoila: No gross adenopathy. Axilla: No gross adenopathy. Pleura: No effusion. Heart: Not enlarged. Thoracic aorta: No aneurysm. Upper abdominal structures: Grossly unremarkable. Visualized osseous structures: There are degenerative changes of the spine without compression deformity. There is a left dual lead pacemaker. IMPRESSION: Mild stable chronic changes. No evidence of foreign body in the bronchial tree. <Electronically signed by Kurt Jain > 04/09/21 1400
[2021-04-09 14:08] LABS: BASO % 0.3 % (0.0-1.0); EOS % 0.3 % (0.0-3.0); HEMATOCRIT 26.4 % (36.0-47.0); LYMPH # 0.7 10^3/uL (1.5-5.0); LYMPH % 23.2 % (24.0-44.0); MEAN CORPUSCULAR HEMOGLOBIN 26.2 pg (27.0-33.0); MEAN CORPUSCULAR HGB CONC 30.3 g/dl (32.0-36.5); MEAN CORPUSCULAR VOLUME 86.6 fl (80.0-96.0); MONO # 0.2 10^3/uL (0.0-0.8); MONO % 5.4 % (2.0-8.0); NEUTROPHILS # 2.2 10^3/uL (1.5-8.5); NEUTROPHILS % 70.2 % (36.0-66.0); PLATELET COUNT, AUTOMATED 158 10^3/uL (150-450); RED BLOOD COUNT 3.05 10^6/uL (4.00-5.40); WHITE BLOOD COUNT 3.1 10^3/uL (4.0-10.0)
[2021-04-09] MEDS ORDERED: LORazepam 2 MG/ML VIAL IV STA (14:20)
[2021-04-09] MEDS ORDERED: MORPHINE 2 MG/ML 1ML VIAL (J2270) IV ONE (14:50)
[2021-04-09] MEDS ORDERED: ROPI1TAB3 PO (15:54)
[2021-04-09] MEDS ORDERED: HYDR5LIQ2 PO (15:54)
[2021-04-09] MEDS ORDERED: METO1TAB32 PO (15:54)
[2021-04-09] MEDS ORDERED: MELA10CA PO (15:54)
[2021-04-09] MEDS ORDERED: FERR324T2 PO (15:54)
[2021-04-09] MEDS ORDERED: AMLO1TAB25 PO (15:54)
[2021-04-09] MEDS ORDERED: PRED20TA PO (15:54)
[2021-04-09] MEDS ORDERED: DOXY-346 PO (15:54)
[2021-04-09] MEDS ORDERED: HOME MED LIST COMPLETE! XX SCH (15:55)
[2021-04-09] MEDS: rOPINIRole 1MG TAB PO SCH ×2 (16:00→20:47)
[2021-04-09] MEDS ORDERED: AZITHROMYCIN INJ 500 MG, VIAL MATE ADAPTER 1 EACH in NS 250 ML IV ONE (16:10)
[2021-04-09] MEDS ORDERED: hydrALAZINE 20MG/ML 1ML VIAL (J0360 PER 20MG) IV PRN (16:10)
[2021-04-09] MEDS ORDERED: NITROGLYCERIN 0.4 MG SUBL TABLET SL PRN (16:10)
[2021-04-09] MEDS ORDERED: LEVALBUTEROL 1.25 MG/0.5 ML CONCENTRATE NEB INH PRN (16:35)
[2021-04-09] MEDS ORDERED: diphenhydrAMINE 50MG/ML VIAL (J1200) IV PRN (16:45)
--- NOTE | 2021-04-09 17:05 | HPEPDOC ---
General Date of Admission April 09, 2021 Date of Service: Apr 09, 2021 Chief Complaint The patient is a 76-year-old female admitted with a reason for visit of Difficulty Breathing. History of Present Illness Mrs. 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 She does not her dysphagia started 6 months ago. She would sometimes have difficulty swallowing solids and liquids. Her symptoms progressively got worse and worse to the point where she has trouble swallowing her sputum. She tells me that she still can take her oral medications. Otherwise, she recently got back from [place] last . She is not vaccinated for Covid. She tells me that she had an anaphylactic reaction to the flu vaccine. Then yesterday, she started to feel ill. She had chills, chest congestion, left upper chest pain, cough, and shortness of breath. She says that when she is able to bring up sputum, it is thick yellow gunk. She went to urgent care and was diagnosed with bronchitis. She was put on doxycycline and prednisone, and was discharged home. Her symptoms did not improved, and she was having trouble coughing up her sputum and swallowing sputum. She came to the ED for evaluation. CT chest was negative for infiltrate. ED requested ENT to evaluate patient for possible vocal cord dysfunction. Dr. Rogel evaluated patient. There is no vocal cord dysfunction, just dysphagia and possible esophageal spasm. Otherwise, patient tells me that she has had chronic pain due to her herniated disks in her spine. Her legs are very restless in the room. She tells me that this is normal if she is in pain, and she requested that I restart all of her pain meds. Otherwise she has coarse rhonchorous breathing sounds. In addition, she has an ostomy for urine and an ostomy for stool. She said that she has been seeing blood clots in these ostomies. Her urine is yellow and clear. I do not see any blood clots in either of these ostomies. Patient will be admitted for dyspnea and dysphagia. Home Medications Scheduled Amlodipine Besylate (Amlodipine Besylate) 10 Mg Tablet, 10 MG PO DAILY, (Reported) Aspirin (Aspirin EC) 81 Mg Tabec, 81 MG PO QHS, (Reported) Doxycycline Monohydrate (Doxycycline Monohydrate) 100 Mg Tablet, 100 MG PO BID, (Reported) STARTED 04/08/21 FOR 7 DAYS Ferrous Sulfate (Ferrous Sulfate) 324 Mg Tablet.dr, 324 MG PO BID, (Reported) Levothyroxine Sodium (Levothyroxine Sodium) 50 Mcg Tab, 50 MCG PO DAILY, (Reported) Lisinopril (Lisinopril) 20 Mg Tablet, 20 MG PO DAILY, (Reported) Melatonin (Melatonin) 10 Mg Capsule, 20 MG PO QHS, (Reported) Metaxalone (Skelaxin) 800 Mg Tab, 800 MG PO TID, (Reported) Metoprolol Succinate (Metoprolol Succinate) 25 Mg Tab.er.24h, 25 MG PO DAILY, (Reported) Oxycodone HCl (Oxycodone HCl ER) 20 Mg Tab, 20 MG PO BID, (Reported) TAKES AT 0900 and 2300 Pantoprazole Sodium (Pantoprazole Sodium) 40 Mg Tablet.dr, 40 MG PO QHS, (Reported) Pravastatin Sodium (Pravastatin Sodium) 20 Mg Tab, 20 MG PO DAILY, (Reported) Prednisone (Prednisone) 20 Mg Tablet, 20 MG PO DAILY, (Reported) STARTED 04/08/21 FOR 5 DAYS Pregabalin (Lyrica) 100 Mg Cap, 100 MG PO TID, (Reported) Ropinirole HCl (Ropinirole HCl) 1 Mg Tablet, 1 MG PO BID, (Reported) TAKE AT 1600 & 2300 Trazodone HCl (Trazodone HCl) 100 Mg Tablet, 100 MG PO QHS, (Reported) Scheduled PRN Diphenhydramine HCl (Diphenhydramine HCl) 25 Mg Capsule, 50 MG PO QHS PRN for SLEEP, (Reported) Hydrocodone/Chlorphen P-Stirex (Hydrocodone-Chlorphen ER Susp) 115 Ml Tere.er.12h, 5 ML PO Q12H PRN for COUGH, (Reported) Nitroglycerin (Nitroglycerin) 0.4 Mg Sub, 0.4 MG SL NITRO PRN for CHEST PAIN, (Reported) Oxycodone HCl (Oxycodone HCl) 10 Mg Tablet, 10 MG PO Q4H PRN for MODERATE/SEVERE PAIN (PS 5-10), (Reported) Polyethylene Glycol 3350 (Miralax) 119 Gm Powder, 17 GM PO Q2D PRN for CONSTIPATION, (Reported) Allergies Coded Allergies: pneumococcal vaccine (Verified Allergy, Intermediate, hives, 04/09/21) influenza virus vacc trivalent, spl (Verified Adverse Reaction, Severe, coma, 04/09/21) influenza virus vaccine tv 2013-14(18-49 yrs),rcmb (Verified Adverse Reaction, Severe, flu vaccine - coma, 04/09/21) Corticosteroids (Glucocorticoids) (Verified Adverse Reaction, Mild, weakness, 04/09/21) TAPE (Verified Adverse Reaction, Mild, BLISTERS, 04/09/21) clonidine (Verified Adverse Reaction, Mild, faint, 04/09/21) quinapril (Verified Adverse Reaction, Mild, passed out, 04/09/21) zolpidem (Verified Adverse Reaction, Mild, sleep walking, 04/09/21) Past Medical History Medical History 1. History of pyelonephritis 2. 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 Hypertension 4. 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 Paroxysmal atrial fibrillation on aspirin 6. Nbk-avmcczk-iynlllptz diabetes mellitus type 2 7. RUTHANN on CPAP 8. CKD stage III 9. Hypothyroidism 10. 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 Chronic anemia 12. Chronic abdominal pain with opiate dependence 13. Adrenal adenoma 14. Fibromyalgia 15. Restless leg syndrome 16. GERD Surgical History 1. Urostomy 2. Colostomy 3. Back injury with neurogenic bladder and bowel 4. Cholecystectomy 5. Hysterectomy 6. Reported several adhesion removal surgeries 7. Carpal tunnel release bilaterally Family History Father: History of dementia, diabetes, macular degeneration Mother: History of CHF, diabetes mellitus Social History * Smoker: non-smoker Alcohol: Denies Drugs: denies A-FIB/CHADSVASC A-FIB History Current/History of A-Fib/PAF?: Yes Current PO Anticoag Therapy: No Review of Systems Constitutional: Reports: Chills; Denies: Fever Eyes: Reports: Other (Intermittent diplopia) ENT: Reports: Sore Throat (From coughing) Skin: Denies: Rash Pulmonary: Reports: Dyspnea, Cough, Other Symptoms (Chest congestion) Cardiovascular: Reports: Chest Pain (Left upper chest pain) Gastrointestinal: Reports: Abdominal Pain (Chronic) Genitourinary: Reports: Other Symptoms (Reports seeing blood clots in her urinary conduit) Hematologic: Reports: Bruising (Easy bruisability) Neurological: Reports: Other Symptoms (Chronic neuropathy) Physical Examination General Exam: Positive: Alert, Cooperative Eye Exam: Positive: EOMI; Negative: Sclera icteric ENT Exam: Positive: Atraumatic Chest Exam: Positive: Rhonchi, Other (Coarse breath sounds) Heart Exam: Positive: Rate Normal, Regular Rhythm Abdomen Exam: Positive: Normal bowel sounds, Soft, Other (Has ostomy for urine and ostomy for stool. No blood clots seen in either at this time) Extremity Exam: Negative: Edema Neuro Exam: Positive: Normal Speech, Cranial Nerves 3-12 NL, Other (Legs are restless and continuously moving) Psych Exam: Positive: Mental status NL, Anxiety Vital Signs Vital Signs Date Time Temp Pulse Resp B/P (MAP) Pulse Ox O2 Delivery O2 Flow Rate FiO2 04/09/21 15:16 79 22 97 Nasal Cannula 2.0 04/09/21 15:15 162/69 (100) 04/09/21 12:46 98.3 Laboratory Data Labs 24H Laboratory Tests 2 04/09/21 12:50: POC Glucose (Misc Panel) 189H, POC Sodium (Misc Panel) 144, POC Potassium (Misc Panel) 3.6, POC Chloride (Misc Panel) 108, POC Total CO2 (Misc Panel) 21.0L, POC Blood Urea Nitrogen (Misc Panel 18, POC Ionized Calcium (Misc Panel) 4.9, POC Creatinine (Misc Panel) 1.1, POC Hematocrit (Misc Panel) 27.0L 04/09/21 12:52: POC Troponin I (Misc) 0.00 04/09/21 13:04: Immature Granulocyte % (Auto) 0.6, Neutrophils (%) (Auto) 70.2H, Lymphocytes (%) (Auto) 23.2L, Monocytes (%) (Auto) 5.4, Eosinophils (%) (Auto) 0.3, Basophils (%) (Auto) 0.3, Neutrophils # (Auto) 2.2, Lymphocytes # (Auto) 0.7L, Monocytes # (Auto) 0.2, Eosinophils # (Auto) 0.0, Basophils # (Auto) 0.0, Nucleated Red Bloo d Cells % (auto) 0.0 CBC/BMP Laboratory Tests 04/09/21 13:04 Microbiology Microbiology 04/09/21 Respiratory Virus Panel (PCR) ([facility]) - Final, Complete Human Rhinovirus/Enterovirus Assessment/Plan Mrs. 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 ENT evaluated patient, and she does not have vocal cord dysfunction. We will have speech/swallow therapy evaluate patient. I have preemptively ordered a modified cookie barium swallow. I will try to limit patient's oral medications. Patient is on large doses of opioids which may be dangerous to try to convert to IV. Otherwise, CT chest does not demonstrate infiltrates. Patient most likely has acute bronchitis. I will put patient on azithromycin and steroids. Plan / VTE VTE Prophylaxis Ordered?: Yes Plan Plan 1. Dyspnea Most likely secondary to acute bronchitis as imaged no infiltrate on imaging Aspiration is another consideration due to patient's difficulty in swallowing We will treat with IV azithromycin and IV steroids We will order a procalcitonin Xopenex for dyspnea 2. Dysphagia This has been a chronic problem that has been worsening More noticeable now that she is trying to cough and swallow saliva and sputum ENT did not see any vocal cord dysfunction We will order speech swallow evaluation and I have preemptively ordered modified cookie barium swallow and 3. Chronic pain Patient has chronic abdominal pain and chronic pain from herniated disks Continue Skelaxin, oxycodone 20 mg twice daily, oxycodone 10 mg every 4 hours as needed, and pregabalin 4. Restless leg syndrome Patient tells me is worse with pain Continue ropinirole and pain medications Hold iron until swallow eval 5. Atrial fibrillation We will switch metoprolol succinate for scheduled IV metoprolol tartrate with holding parameters Patient is on aspirin for prophylaxis. Hold aspirin until swallow eval 6. Hypertension Continue lisinopril. Hold amlodipine until swallow eval Patient on scheduled IV Lopressor As needed hydralazine for systolic blood pressures greater than 180 7. Hypothyroidism Continue levothyroxine 8. Insomnia Continue trazodone Hold as needed diphenhydramine and as needed melatonin We will switch to as needed IV Benadryl 9. DVT prophylaxis SCDs and teds Disposition: Pending clinical improvement and evaluation from speech/swallow therapy RAYMOND STRINGER DO Apr 09, 2021 17:05
[2021-04-09] MEDS: METOPROLOL 5 MG/5 ML VIAL IV SCH (20:14)
[2021-04-09] MEDS: methylPREDNISolone 40MG 1ML VIAL IV SCH (20:15)
[2021-04-09] MEDS: PREGABALIN 100 MG CAP (LYRICA) PO SCH (20:30)
[2021-04-09] MEDS: traZODone 100 MG TAB PO SCH (20:30)
[2021-04-09] MEDS: oxyCODONE 5MG TAB PO PRN (20:39)
[2021-04-09] MEDS ORDERED: NS 1,000 ML IV ONE (21:15)
[2021-04-09] MEDS: oxyCODONE 20 MG CR TAB PO SCH (22:28)
[2021-04-09] MEDS: METAXALONE 800 MG TABLET PO SCH (22:28)
[2021-04-10] VITALS (22 sets, daily range): BP systolic 141–172; BP diastolic 62–76; O2SAT 88–98
[2021-04-10] MEDS: oxyCODONE 5MG TAB PO PRN ×2 (00:44→06:27)
[2021-04-10 05:16] LABS: HEMATOCRIT 24.9 % (36.0-47.0); HEMOGLOBIN 7.5 g/dl (12.0-15.5); MEAN CORPUSCULAR HEMOGLOBIN 25.9 pg (27.0-33.0); MEAN CORPUSCULAR HGB CONC 30.1 g/dl (32.0-36.5); MEAN CORPUSCULAR VOLUME 85.9 fl (80.0-96.0); PLATELET COUNT, AUTOMATED 177 10^3/uL (150-450)
[2021-04-10 05:35] LABS: ERYTHROCYTE SEDIMENTATION RATE 48 mm/hr (0-30)
[2021-04-10 05:45] LABS: BLOOD UREA NITROGEN 17 MG/DL (7-18); C REACTIVE PROTEIN QUANTITATIV 0.89 MG/DL (0.00-0.30); CALCIUM LEVEL 8.2 MG/DL (8.8-10.2); CARBON DIOXIDE LEVEL 26 MEQ/L (21-32); CHLORIDE LEVEL 112 MEQ/L (98-107); CREATININE FOR GFR 0.92 MG/DL (0.55-1.30); GLOMERULAR FILTRATION RATE > 60.0 (>39); GLUCOSE, FASTING 118 MG/DL (70-100); POTASSIUM SERUM 4.6 MEQ/L (3.5-5.1); SODIUM LEVEL 141 MEQ/L (136-145)
[2021-04-10] MEDS: METOPROLOL 5 MG/5 ML VIAL IV SCH ×5 (06:00→23:19)
[2021-04-10] MEDS: LEVOTHYROXINE 50MCG TABLET (0.05MG) PO SCH (06:26)
[2021-04-10] MEDS: oxyCODONE 20 MG CR TAB PO SCH ×2 (09:37→23:18)
[2021-04-10] MEDS: PREGABALIN 100 MG CAP (LYRICA) PO SCH ×3 (09:37→20:20)
[2021-04-10] MEDS: METAXALONE 800 MG TABLET PO SCH ×3 (09:37→20:20)
[2021-04-10] MEDS ORDERED: BARIUM SULFATE 700 MG TABLET (E-Z-DISK) As Ordered ONE (09:44)
[2021-04-10] MEDS ORDERED: VARIBAR PUDDING 40% w/v 230ML TUBE As Ordered ONE (09:44)
[2021-04-10] MEDS ORDERED: VARIBAR NECTAR 40% w/v 240ML SUSP BTL As Ordered ONE (09:44)
--- NOTE | 2021-04-10 09:54 | CR ---
CONSULTATION DATE: 04/09/2021 CHIEF COMPLAINT: Breathing difficulty. HISTORY OF PRESENT ILLNESS: This 76-year-old woman [facility] acute onset of shortness of breath for the last 24 hours. He has received nebulizer treatment at the emergency department with some improvement of her breathing. However, she continues to have some noisy upper inspiratory noise. She complains of some chest discomfort, shortness of breath. She was treated with doxycycline and prednisone when she went to the urgent care yesterday. At this time, the patient had a CT of chest which was negative for infiltration in the lung scott. I have been asked to evaluate for vocal cord dysfunction. The patient denies prior history of laryngeal instrumentation of surgery. PAST MEDICAL HISTORY: 1. COPD. 2. Hypertension. 3. RUTHANN on CPAP. 4. Chronic renal failure. 5. Fibromyalgia. 6. GERD. PAST SURGICAL HISTORY: No surgery done in the head and neck area per patient's report. MEDICATIONS: Reviewed. ALLERGIES: Reviewed. PNEUMOCOCCAL VACCINES, INFLUENZA VACCINE, CORTICOSTEROIDS, CLONIDINE, QUINAPRIL, ZOLPIDEM AND TAPE. FAMILY HISTORY: Noncontributory. SOCIAL HISTORY: Nonsmoker, nonalcohol user and non-drug user. PHYSICAL EXAMINATION: On examination, the patient appeared in mild to moderate distress. Inspiratory noise was noted. No use of the accessory muscle noted. Normocephalic facial features. No palpable cervical lymphadenopathy. Trachea midline. PROCEDURE: Flexible laryngoscopy. INDICATION: Vocal cord dysfunction. Patient was in supine position on the stretcher. The flexible laryngoscope was introduced via the right naris. The mucosa of the nasal cavity, nasopharynx, oropharynx, hypopharynx, supraglottis, base of tongue was visualized. No discrete mucosal lesion noted. Both vocal cords mobile without evidence of paradoxical movement. The piriform sinus is free of salivary pooling. Appearance of the vocal cord is normal. The flexible scope was then withdrawn. The patient tolerated the procedure well without complication. IMPRESSION: A 76-year-old woman with acute respiratory distress without evidence of paradoxical vocal cord motion. PLAN: At this time, there is no indication for urgent surgical airway management from the ENT stand point of view. The patient will be admitted via the hospitalist to manage the airway issue that may arise on the lower respiratory tract. I will see her on a p.r.n. basis.
--- NOTE | 2021-04-10 10:12 | ECGEPIP ---
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
[2021-04-10] MEDS ORDERED: ISOVUE-370 76% 100ML VIAL As Ordered ONE (10:25)
--- NOTE | 2021-04-10 10:41 | IPNPDOC ---
Text Note Date of Service The patient was seen on 04/10/21. NOTE Hospitalist Progress Note Subjective: Patient is sitting upright on the edge of the bed. She does not appear to be in any respiratory distress at this time. She is breathing comfortably without any audible wheeze when I entered the room. She does have somewhat of a course cough. Additionally, she also reports that her swallowing is significantly improved today as compared to yesterday. She states that this happens occasionally, even to the point where she is unable to swallow her spit, and then it seems to resolve on its own. Regardless, we will continue with cookie swallow evaluation today, and also CT of the neck to rule out any mass or other pathology that may be affecting her ability to swallow. Objective: General: Awake, alert, oriented 3. Not in any acute distress. HEENT: Head normocephalic, atraumatic, sclera are nonicteric. Hearing is grossly intact to conversation. Respiratory: When she is breathing comfortably she has a very mild end expiratory wheeze. When she is asked to take deep breaths that she has a very harsh expiratory wheeze which is best heard in the throat. Cardiovascular: Regular rate and rhythm, with no rubs, gallops, or murmur. Abdomen: Soft, nontender, nondistended, no hepatosplenomegaly appreciated. Bowel sounds present. Extremities: 2+ pulses in the radial and dorsalis pedis bilaterally. No evidence of clubbing or cyanosis. Assessment/Plan: 1. Dyspnea Most likely secondary to acute bronchitis as imaged no infiltrate on imaging Aspiration is another consideration due to patient's difficulty in swallowing We will treat with IV azithromycin and IV steroids Xopenex for dyspnea --Procalcitonin is still pending --Clinically dyspnea appears to be improved today. We will continue to monitor. 2. Dysphagia This has been a chronic problem that has been worsening More noticeable now that she is trying to cough and swallow saliva and sputum ENT did not see any vocal cord dysfunction We will order speech swallow evaluation, barium swallow, and after discussion with ENT will also order neck CT with contrast as well. 3. Chronic pain Patient has chronic abdominal pain and chronic pain from herniated disks Continue Skelaxin, oxycodone 20 mg twice daily, oxycodone 10 mg every 4 hours as needed, and pregabalin 4. Restless leg syndrome Patient tells me is worse with pain Continue ropinirole and pain medications Hold iron until swallow eval 5. Atrial fibrillation We will switch metoprolol succinate for scheduled IV metoprolol tartrate with holding parameters Patient is on aspirin for prophylaxis. Hold aspirin until swallow eval 6. Hypertension Continue lisinopril. Hold amlodipine until swallow eval Patient on scheduled IV Lopressor As needed hydralazine for systolic blood pressures greater than 180 7. Hypothyroidism Continue levothyroxine 8. Insomnia Continue trazodone Hold as needed diphenhydramine and as needed melatonin We will switch to as needed IV Benadryl 9. DVT prophylaxis SCDs and teds VS,Fishbone, I+O VS, Fishbone, I+O Laboratory Tests 04/09/21 13:04 04/10/21 05:02 Vital Signs Date Time Temp Pulse Resp B/P (MAP) Pulse Ox O2 Delivery O2 Flow Rate FiO2 04/10/21 09:37 17 04/10/21 09:37 141/65 04/10/21 08:00 97.5 61 97 Nasal Cannula 2.0 I&O- Last 24 Hours up to 6 AM 04/10/21 06:00 Intake Total 555 ml Output Total 2125 ml Balance -1570 ml ALEXA JUAN DO Apr 10, 2021 10:41
--- NOTE | 2021-04-10 11:11 | REPVR ---
PROCEDURE INFORMATION: Exam: CT Neck With Contrast Exam date and time: 04/10/2021 10:32 AM Age: 76 years old Clinical indication: Dysphagia / difficulty swallowing TECHNIQUE: Imaging protocol: Computed tomography images of the neck with contrast. Radiation optimization: All CT scans at this facility use at least one of these dose optimization techniques: automated exposure control; mA and/or kV adjustment per patient size (includes targeted exams where dose is matched to clinical indication); or iterative reconstruction. Contrast material: ISOVUE 370; Contrast volume: 75 ml; Contrast route: INTRAVENOUS (IV); COMPARISON: MRI ORBIT FACE NECK W/O FOLL W 02/17/2018 10:33 AM FINDINGS: Paranasal sinuses: There mild mucosal thickening in anterior ethmoid air cells and frontal sinuses. Nasopharynx: Unremarkable. Dental: The patient is edentulous. Oropharynx: Unremarkable. No significant tonsillar enlargement. Hypopharynx: Unremarkable. Larynx: Unremarkable. Normal epiglottis. Retropharyngeal space: Unremarkable. Submandibular/Parotid glands: Left submandibular gland is small and fatty replaced. No visible salivary or salivary ductal stones. Right submandibular gland and parotid glands appear unremarkable. Thyroid: Normal. No enlarged or calcified nodules. Lymph nodes: Unremarkable. No lymphadenopathy. Trachea: Visualized trachea is unremarkable. Lungs: Unremarkable as visualized. Esophagus: Portion of esophagus visualized appears unremarkable by CT. Please note that esophagus and mucosal lesions not well evaluated with CT. Follow-up endoscopic evaluation as clinically appropriate. Bones/joints: There are degenerative changes in spine with neural foraminal narrowing. Vasculature: Bilateral carotid and vertebral arteries are widely patent without stenosis or occlusion. Soft tissues: Unremarkable. No significant soft tissue swelling. Other findings: There is left-sided pacer present. IMPRESSION: 1. Interval atrophy and fatty replacement of left submandibular gland. 2. No explanation for dysplasia. Recommend endoscopic evaluation as clinically appropriate. Electronically signed by: Leila Liz On 04/10/2021 11:11:16 AM
[2021-04-10] MEDS: BENZONATATE 100 MG CAP PO SCH ×3 (11:35→20:19)
[2021-04-10] MEDS ORDERED: E-Z-PAQUE 96% w/w SUSP 176GM BTL As Ordered ONE (12:19)
[2021-04-10] MEDS ORDERED: E-Z-HD 98% w/w 340GM SUSP BTL As Ordered ONE (12:19)
[2021-04-10] MEDS ORDERED: E-Z-GAS II EFFERVESCENT PACKET (SODIUM BICARB./CITRIC ACID/SIMETHICONE) As Ordered ONE (12:19)
[2021-04-10] MEDS: rOPINIRole 1MG TAB PO SCH ×2 (15:42→23:18)
[2021-04-10] MEDS: methylPREDNISolone 40MG 1ML VIAL IV SCH (17:23)
[2021-04-10] MEDS: traZODone 100 MG TAB PO SCH (20:19)
[2021-04-11] VITALS (9 sets, daily range): BP systolic 148–165; BP diastolic 67–72; O2SAT 92–98
[2021-04-11] MEDS: METOPROLOL 5 MG/5 ML VIAL IV SCH (06:00)
[2021-04-11] MEDS: LEVOTHYROXINE 50MCG TABLET (0.05MG) PO SCH (06:01)
[2021-04-11 06:17] LABS: HEMATOCRIT 26.8 % (36.0-47.0); HEMOGLOBIN 8.2 g/dl (12.0-15.5); MEAN CORPUSCULAR HEMOGLOBIN 26.2 pg (27.0-33.0); MEAN CORPUSCULAR HGB CONC 30.6 g/dl (32.0-36.5); MEAN CORPUSCULAR VOLUME 85.6 fl (80.0-96.0); PLATELET COUNT, AUTOMATED 197 10^3/uL (150-450); RED BLOOD COUNT 3.13 10^6/uL (4.00-5.40); WHITE BLOOD COUNT 4.7 10^3/uL (4.0-10.0)
[2021-04-11 06:35] LABS: CALCIUM LEVEL 8.6 MG/DL (8.8-10.2); CREATININE FOR GFR 1.04 MG/DL (0.55-1.30); GLOMERULAR FILTRATION RATE 54.7 (>39)
[2021-04-11] MEDS ORDERED: MUCI600T31 PO (08:31)
[2021-04-11] MEDS ORDERED: BENZ-18 PO (08:31)
[2021-04-11] MEDS: METAXALONE 800 MG TABLET PO SCH (08:44)
[2021-04-11] MEDS: BENZONATATE 100 MG CAP PO SCH (08:44)
[2021-04-11] MEDS: PREGABALIN 100 MG CAP (LYRICA) PO SCH (08:44)
[2021-04-11] MEDS: oxyCODONE 20 MG CR TAB PO SCH (08:47)
[2021-04-11] MEDS ORDERED: guaiFENesin ER 600 MG TAB PO SCH (09:00)
--- NOTE | 2021-04-11 17:50 | DS.PDOC ---
Discharge Summary General Date of Admission Apr 09, 2021 at 16:06 Date of Discharge 04/11/2021 Discharge Summary PRIMARY CARE PHYSICIAN: Jhoana Kat ATTENDING AT TIME OF DISCHARGE: Dr. Kurt Juan, DISCHARGE DIAGNOS(E)S: Dyspnea Dysphagia Chronic musculoskeletal pain Restless leg syndrome Chronic atrial fibrillation Hypertension Hypothyroidism Insomnia HPI & HOSPITAL COURSE: Patient presented to the hospital with a significant increase in shortness of breath and upper airway inspiratory noise. ENT was consulted for evaluation of vocal cord dysfunction, a flexible laryngoscopic was performed where no abnormal findings were noted. CT scan of the neck did show a chronic changes, but no etiology for difficulty breathing. She also was experiencing dysphagia, therefore a cookie swallow and a barium esophagram were performed, neither of which showed any significant abnormalities. Therefore, an etiology for her symptoms was not discovered during this hospitalization. Nevertheless, her s ymptoms have significantly improved on their own at this time, and she does feel safe to go home at this time. It may be prudent that she follow-up with gastroenterology for either endoscopy or manometry for evaluation regarding her dysphagia if she continues to have symptoms. Also, another possible etiology is nerve damage and cervical spine disease, she already has a neurogenic bladder, and essentially neurogenic rectum for which she has urostomy and colostomy, therefore this Romero of neurological damage in the cervical spine is plausible as well. PHYSICAL EXAMINATION ON DISCHARGE: GENERAL: Awake, alert, she is in no acute distress at this time. CARDIOVASCULAR EXAMINATION: Regular rate and rhythm, with no rubs, gallops, or murmur. RESPIRATORY EXAMINATION: Clear to auscultation bilaterally with no wheezes, rales, or rhonchi. ABDOMINAL EXAMINATION: Soft, nontender, nondistended. Bowel sounds present. Urostomy and colostomy bags are unremarkable. EXTREMITIES: No clubbing or edema noted. 2+ pulses in the radial bilaterally. DISPOSITION: Home DISCHARGE INSTRUCTIONS: Follow-up with primary care provider within 7 to 10 days. Also recommend that she contact the GI clinic Tuesday morning for evaluation of dysphagia.. If symptoms return, or if you experience worsening of your symptoms, please call your doctor or return to the emergency department. Vital Signs/I&Os Vital Signs Date Time Temp Pulse Resp B/P (MAP) Pulse Ox O2 Delivery O2 Flow Rate FiO2 04/11/21 08:47 19 04/11/21 08:46 165/72 04/11/21 08:00 97.9 63 98 Nasal Cannula 3.0 I&O- Last 24 Hours up to 6 AM 04/11/21 06:00 Intake Total 1436 ml Output Total 1800 ml Balance -364 ml Laboratory Data Labs 24H Laboratory Tests 2 04/11/21 05:41: Nucleated Red Blood Cells % (auto) 0.0, Anion Gap 7L, Glomerular Filtration Rate 54.7, Calcium Level 8.6L CBC/BMP Laboratory Tests 04/11/21 05:41 Microbiology Microbiology 04/09/21 Respiratory Virus Panel (PCR) ([facility]) - Final, Complete Human Rhinovirus/Enterovirus Discharge Medications Scheduled Amlodipine Besylate (Amlodipine Besylate) 10 Mg Tablet, 10 MG PO DAILY, (Reported) Aspirin (Aspirin EC) 81 Mg Tabec, 81 MG PO QHS, (Reported) Benzonatate (Benzonatate) 100 Mg Capsule, 100 MG PO TID Ferrous Sulfate (Ferrous Sulfate) 324 Mg Tablet.dr, 324 MG PO BID, (Reported) Guaifenesin (Mucinex) 600 Mg Tab.er.12h, 600 MG PO BID Levothyroxine Sodium (Levothyroxine Sodium) 50 Mcg Tab, 50 MCG PO DAILY, (Reported) Lisinopril (Lisinopril) 20 Mg Tablet, 20 MG PO DAILY, (Reported) Melatonin (Melatonin) 10 Mg Capsule, 20 MG PO QHS, (Reported) Metaxalone (Skelaxin) 800 Mg Tab, 800 MG PO TID, (Reported) Metoprolol Succinate (Metoprolol Succinate) 25 Mg Tab.er.24h, 25 MG PO DAILY, (Reported) Oxycodone HCl (Oxycodone HCl ER) 20 Mg Tab, 20 MG PO BID, (Reported) TAKES AT 0900 and 2300 Pantoprazole Sodium (Pantoprazole Sodium) 40 Mg Tablet.dr, 40 MG PO QHS, (Rep orted) Pravastatin Sodium (Pravastatin Sodium) 20 Mg Tab, 20 MG PO DAILY, (Reported) Prednisone (Prednisone) 20 Mg Tablet, 20 MG PO DAILY, (Reported) STARTED 04/08/21 FOR 5 DAYS Pregabalin (Lyrica) 100 Mg Cap, 100 MG PO TID, (Reported) Ropinirole HCl (Ropinirole HCl) 1 Mg Tablet, 1 MG PO BID, (Reported) TAKE AT 1600 & 2300 Trazodone HCl (Trazodone HCl) 100 Mg Tablet, 100 MG PO QHS, (Reported) Scheduled PRN Diphenhydramine HCl (Diphenhydramine HCl) 25 Mg Capsule, 50 MG PO QHS PRN for SLEEP, (Reported) Hydrocodone/Chlorphen P-Stirex (Hydrocodone-Chlorphen ER Susp) 115 Ml Tere.er.12h, 5 ML PO Q12H PRN for COUGH, (Reported) Nitroglycerin (Nitroglycerin) 0.4 Mg Sub, 0.4 MG SL NITRO PRN for CHEST PAIN, (Reported) Oxycodone HCl (Oxycodone HCl) 10 Mg Tablet, 10 MG PO Q4H PRN for MODERATE/SEVERE PAIN (PS 5-10), (Reported) Polyethylene Glycol 3350 (Miralax) 119 Gm Powder, 17 GM PO Q2D PRN for CONSTIPATION, (Reported) Allergies Coded Allergies: pneumococcal vaccine (Verified Allergy, Intermediate, hives, 04/09/21) influenza virus vacc trivalent, spl (Verified Adverse Reaction, Severe, coma, 04/09/21) influenza virus vaccine tv 2012-(18-49 yrs),rcmb (Verified Adverse Reaction, Severe, flu vaccine - coma, 04/09/21) Corticosteroids (Glucocorticoids) (Verified Adverse Reaction, Mild, weakness, 04/09/21) TAPE (Verified Adverse Reaction, Mild, BLISTERS, 04/09/21) clonidine (Verified Adverse Reaction, Mild, faint, 04/09/21) quinapril (Verified Adverse Reaction, Mild, passed out, 04/09/21) zolpidem (Verified Adverse Reaction, Mild, sleep walking, 04/09/21) KURT JUAN DO Apr 11, 2021 17:50
== END 2021-04-11 12:22 | disposition home or self-care (01) | DRG 202 ==
LOC: M ED 12:34 → M ED INP 16:06 → ENRESERV 16:41 → M PCU 18:49
PROVIDERS: ADMIT Internal Medicine; ATTEND Internal Medicine
DX: J20.9 Acute bronchitis, unspecified (principal); I48.20 Chronic atrial fibrillation, unspecified; R13.10 Dysphagia, unspecified; N18.30 Chronic kidney disease, stage 3 unspecified; E11.22 Type 2 diabetes mellitus with diabetic chronic kidney disease; K74.60 Unspecified cirrhosis of liver; M79.7 Fibromyalgia; G25.81 Restless legs syndrome; E03.9 Hypothyroidism, unspecified; I11.0 Hypertensive heart disease with heart failure; Z79.82 Long term (current) use of aspirin; Z79.899 Other long term (current) drug therapy; Z79.52 Long term (current) use of systemic steroids; Z88.8 Allergy status to other drugs, medicaments and biological substances; Z88.7 Allergy status to serum and vaccine; E11.40 Type 2 diabetes mellitus with diabetic neuropathy, unspecified; K21.9 Gastro-esophageal reflux disease without esophagitis

== ENCOUNTER 2021-04-23 19:01 | Emergency (ER) | payer MEDICARE, BC ==
[~2021-04-23] VITALS: Ht 165.1 cm; Wt 82.1 kg
[~2021-04-23 19:01] MED LIST changes: +AMLO1TAB25 PO; +BENZ-18 PO; +DOXY-346 PO; +FERR324T2 PO; +HYDR5LIQ2 PO; +MELA10CA PO; +METO1TAB32 PO; +MUCI600T31 PO; +PRED20TA PO
[2021-04-23] MEDS ORDERED: KETOROLAC 30 MG/ML 1ML VIAL IV ONE (19:50)
--- NOTE | 2021-04-23 20:09 | REP ---
INDICATION: cough. COMPARISON: Comparison chest x-ray October 07, 2020. TECHNIQUE: Sitting AP portable chest x-ray. FINDINGS: A dual lead pacemaker remains in place in the right heart view of the left side. Mild cardiomegaly is observed. Pulmonary vasculature is not increased. The pleural angles are sharp. No infiltrate is seen. There is no evidence of pleural effusion or pulmonary edema. IMPRESSION: Cardiomegaly with pacemaker. No acute infiltrate. <Electronically signed by Zak Booker > 04/23/212004
[2021-04-23 20:24] LABS: BASO % 0.2 % (0.0-1.0); EOS # 0.1 10^3/uL (0.0-0.5); EOS % 1.9 % (0.0-3.0); HEMATOCRIT 29.6 % (36.0-47.0); HEMOGLOBIN 8.8 g/dl (12.0-15.5); LYMPH # 1.4 10^3/uL (1.5-5.0); LYMPH % 28.8 % (24.0-44.0); MEAN CORPUSCULAR HEMOGLOBIN 27.1 pg (27.0-33.0); MEAN CORPUSCULAR HGB CONC 29.7 g/dl (32.0-36.5); MEAN CORPUSCULAR VOLUME 91.1 fl (80.0-96.0); MONO # 0.4 10^3/uL (0.0-0.8); MONO % 9.1 % (2.0-8.0); NEUTROPHILS # 2.9 10^3/uL (1.5-8.5); NEUTROPHILS % 59.6 % (36.0-66.0); PLATELET COUNT, AUTOMATED 166 10^3/uL (150-450); RED BLOOD COUNT 3.25 10^6/uL (4.00-5.40); WHITE BLOOD COUNT 4.8 10^3/uL (4.0-10.0)
[2021-04-23 20:59] LABS: BLOOD UREA NITROGEN 13 MG/DL (7-18); CALCIUM LEVEL 8.4 MG/DL (8.8-10.2); CARBON DIOXIDE LEVEL 26 MEQ/L (21-32); CHLORIDE LEVEL 110 MEQ/L (98-107); CK-MB VALUE MASS 1.2 NG/ML (<3.6); CPK CREATINE PHOSPHOKINASE 33 U/L (26-192); CREATININE FOR GFR 1.17 MG/DL (0.55-1.30); GLOMERULAR FILTRATION RATE 47.7 (>39); GLUCOSE, FASTING 97 MG/DL (70-100); LIPASE 66 U/L (73-393); MB/CK RELATIVE INDEX 3.64 (< OR =4); POTASSIUM SERUM 4.3 MEQ/L (3.5-5.1); SODIUM LEVEL 140 MEQ/L (136-145); TROPONIN I < 0.02 NG/ML (< 0.10)
[2021-04-23 21:01] LABS: RSV AMPLIFICATION NEGATIVE (NEGATIVE)
--- NOTE | 2021-04-23 22:01 | REPVR ---
PROCEDURE INFORMATION: Exam: CT Abdomen And Pelvis Without Contrast Exam date and time: 04/23/2021 9:35 PM Age: 76 years old Clinical indication: Abdominal pain; Localized; Right lower quadrant (rlq); Prior surgery; Additional info: Rlq pain; R/O stone TECHNIQUE: Imaging protocol: Computed tomography of the abdomen and pelvis without contrast. Radiation optimization: All CT scans at this facility use at least one of these dose optimization techniques: automated exposure control; mA and/or kV adjustment per patient size (includes targeted exams where dose is matched to clinical indication); or iterative reconstruction. COMPARISON: CT ABD/PEL W/IV CONTRAST ONLY 12/03/2019 9:04 AM FINDINGS: Heart: Cardiomegaly. Liver: There is enlargement of the left and caudate lobes of the liver as well as a lobular surface contour of the liver. Findings may indicate the presence of cirrhosis in this patient with no reported history of chronic liver disease. No focal abnormality demonstrated. Gallbladder and bile ducts: There has been a cholecystectomy. Pancreas: There is diffuse pancreatic atrophy. Spleen: There is mild splenomegaly with a maximum span of 13.6 centimeters. No focal abnormalities demonstrated. Adrenal glands: Right adrenal lipoma again redemonstrated and stable in appearance. Kidneys and ureters: Mild hydroureteronephrosis on the right and moderate to severe hydroureteronephrosis on the left. There is soft tissue apparently obstructing the mid left ureter which may represent postsurgical scarring related to the right lower quadrant urinary diversion ileostomy. The findings are essentially unchanged. Stomach and bowel: There is a left lower quadrant colostomy with abundant feces demonstrated in the right and transverse colon consistent with constipation. Appendix: No evidence of appendicitis. Intraperitoneal space: Unremarkable. No free air. No significant fluid collection. Vasculature: The aortoiliac vessels demonstrate mild atherosclerotic calcification. Lymph nodes: Unremarkable. No enlarged lymph nodes. Urinary bladder: Unremarkable as visualized. Reproductive: Unremarkable as visualized. Bones/joints: Fusion of L4 and L5. The spine demonstrates moderate degenerative changes. Status post bilateral laminectomy at L2. Severe central spinal stenosis L3-L4, L4-L5 and L5-S1. Defect in the external cortex of the left iliac bone may be related to prior bone harvesting or biopsy. Soft tissues: Unremarkable. Other findings: Osteoporosis. IMPRESSION: 1. Possible cirrhosis as described above. 2. There is mild splenomegaly with a maximum span of 13.6 centimeters. No focal abnormalities demonstrated. 3. There is diffuse pancreatic atrophy. 4. There has been a cholecystectomy. 5. Mild hydroureteronephrosis on the right and moderate to severe hydroureteronephrosis on the left. There is soft tissue apparently obstructing the mid left ureter which may represent postsurgical scarring related to the right lower quadrant urinary diversion ileostomy. The findings are essentially unchanged. 6. There is a left lower quadrant colostomy with abundant feces demonstrated in the right and transverse colon consistent with constipation. Electronically signed by: Mau Arellano On 04/23/2021 22:00:51 PM
[2021-04-23 22:46] VITALS: BP 149/69
[2021-04-23] MEDS ORDERED: COLA100C5 PO (22:53)
[2021-04-23] MEDS ORDERED: MIRA3350 PO (22:53)
--- NOTE | 2021-04-24 11:41 | ECGEPIP ---
[facility] - ED Test Date: 2021-04-23 Pat Name: JESSICA MITCHELL Department: Room: - Gender: Female Wardrobe Assistant: DANIKAMIA : 1945 Requested By: JUDI ORTEGA Order Number: [id number] Reading MD: Nathaly Mims Measurements Intervals [place] Rate: 61 P: KS: QRS: -57 QRSD: 136 T: 70 QT: 468 QTc: 471 Interpretive Statements AV dual-paced rhythm with occasional ventricular-paced complexes Electronically Signed on 04-24-2021 11:41:31 EDT by Nathaly Mims
--- NOTE | 2021-04-25 06:48 | ED PDOC ---
Post-Departure Follow-Up ct abd/p faxed to [facility] for fu Birgit Sinclair MD Apr 25, 2021 06:48
== END 2021-04-23 23:04 | disposition home or self-care (01) ==
LOC: M ED 19:01
DX: K59.00 Constipation, unspecified (principal); E11.9 Type 2 diabetes mellitus without complications; N18.30 Chronic kidney disease, stage 3 unspecified; J45.909 Unspecified asthma, uncomplicated; M79.7 Fibromyalgia; Z88.7 Allergy status to serum and vaccine; Z88.8 Allergy status to other drugs, medicaments and biological substances; Z91.048 Other nonmedicinal substance allergy status
CPT/HCPCS: 71045; 74176; 80048; 81001; 82550; 82553; 83690; 84484; 85025; 87088; 87186; 87631; 93005; 94760; 96374; 99284; J1885

== ENCOUNTER 2021-05-21 15:56 | Inpatient (IN) | payer MEDICARE, BC ==
[~2021-05-21] VITALS: Ht 162.6 cm; Wt 89.9 kg
[~2021-05-21 15:56] MED LIST changes: -HEPARIN SOD (PORCINE) 5000UNITS/ML 1ML VIAL/SYRINGE SC SCH
[2021-05-21] MEDS ORDERED: NS 1,000 ML IV ONE (18:25)
[2021-05-21] MEDS ORDERED: HYDROMORPHONE HCL 0.5 MG/ 0.5 ML SYRINGE (J1170 PER 1) IV ONE (18:25)
[2021-05-21 18:56] LABS: BASO % 0.1 % (0.0-1.0); EOS # 0.1 10^3/uL (0.0-0.5); HEMATOCRIT 30.8 % (36.0-47.0); HEMOGLOBIN 9.9 g/dl (12.0-15.5); LYMPH # 1.5 10^3/uL (1.5-5.0); LYMPH % 20.9 % (24.0-44.0); MEAN CORPUSCULAR HEMOGLOBIN 29.2 pg (27.0-33.0); MEAN CORPUSCULAR HGB CONC 32.1 g/dl (32.0-36.5); MEAN CORPUSCULAR VOLUME 90.9 fl (80.0-96.0); MONO # 0.8 10^3/uL (0.0-0.8); MONO % 11.3 % (2.0-8.0); NEUTROPHILS # 4.7 10^3/uL (1.5-8.5); NEUTROPHILS % 65.4 % (36.0-66.0); PLATELET COUNT, AUTOMATED 175 10^3/uL (150-450); RED BLOOD COUNT 3.39 10^6/uL (4.00-5.40); WHITE BLOOD COUNT 7.2 10^3/uL (4.0-10.0)
[2021-05-21 19:22] LABS: ALBUMIN 3.1 GM/DL (3.2-5.2); BILIRUBIN,DIRECT 0.2 MG/DL (0.0-0.2); BILIRUBIN,TOTAL 0.4 MG/DL (0.2-1.0); TOTAL PROTEIN 6.6 GM/DL (6.4-8.2)
[2021-05-21] MEDS: HYDROMORPHONE HCL 0.5 MG/ 0.5 ML SYRINGE (J1170 PER 1) IV PRN (20:23)
--- NOTE | 2021-05-21 21:22 | REPVR ---
PROCEDURE INFORMATION: Exam: CT Abdomen And Pelvis Without Contrast Exam date and time: 05/21/2021 8:27 PM Age: 76 years old Clinical indication: Abdominal pain; Localized; Right; Prior surgery; Additional info: Right abd pain, bloody ostomy contents TECHNIQUE: Imaging protocol: Computed tomography of the abdomen and pelvis without contrast. Radiation optimization: All CT scans at this facility use at least one of these dose optimization techniques: automated exposure control; mA and/or kV adjustment per patient size (includes targeted exams where dose is matched to clinical indication); or iterative reconstruction. COMPARISON: CT ABD PELVIS W/O CONTRAST 04/23/2021 9:27 PM FINDINGS: Liver: There is enlargement of the left and caudate lobes of the liver as well as a lobular surface contour of the liver. Findings may indicate the presence of cirrhosis in this patient with no reported history of chronic liver disease. No focal abnormality demonstrated. Gallbladder and bile ducts: There has been a cholecystectomy. Pancreas: Normal. No ductal dilation. Spleen: Mild splenomegaly again redemonstrated. Adrenal glands: 2.1 cm right adrenal lipoma. Kidneys and ureters: Bilateral moderate hydroureteronephrosis status post urinary diversion procedure and ileostomy. Stricturing demonstrated in the distal left ureter may represent postsurgical scarring. Stomach and bowel: Left lower quadrant colostomy demonstrated abundant feces and liquid demonstrated in the ostomy bag. According to history ostomy contents are hemorrhagic although no evidence of acute hemorrhage demonstrated. Appendix: No evidence of appendicitis. Intraperitoneal space: Unremarkable. No free air. No significant fluid collection. Vasculature: Unremarkable. No abdominal aortic aneurysm. Lymph nodes: Unremarkable. No enlarged lymph nodes. Urinary bladder: Unremarkable as visualized. Reproductive: Unremarkable as visualized. Bones/joints: Status post bilateral laminectomies at L2. Moderate to severe central spinal stenosis L3-L4, severe central spinal stenosis L4-L5. Fusion of the L4-L5 disc space. Bulging annulus and severe central spinal stenosis L5-S1. Soft tissues: Unremarkable. Other findings: Osteoporosis. IMPRESSION: 1. 2.1 cm right adrenal lipoma. 2. There has been a cholecystectomy. 3. Possible cirrhosis as described above. 4. Bilateral moderate hydroureteronephrosis status post urinary diversion procedure and ileostomy. Stricturing demonstrated in the distal left ureter may represent postsurgical scarring. 5. Left lower quadrant colostomy demonstrated abundant feces and liquid demonstrated in the ostomy bag. According to history ostomy contents are hemorrhagic although no evidence of acute hemorrhage demonstrated. Electronically signed by: Mau Arellano On 05/21/2021 21:21:44 PM
[2021-05-21] MEDS ORDERED: oxyCODONE 5MG TAB PO ONE (23:55)
[2021-05-21] MEDS: NS 1,000 ML IV SCH (23:59)
[2021-05-22] MEDS: HYDROMORPHONE HCL 0.5 MG/ 0.5 ML SYRINGE (J1170 PER 1) IV PRN ×4 (00:28→16:42)
[2021-05-22] MEDS ORDERED: OXYC10TA12 PO (02:05)
[2021-05-22] MEDS ORDERED: COLA100C5 PO (02:05)
[2021-05-22] MEDS ORDERED: HOME MED LIST COMPLETE! XX SCH (02:05)
[2021-05-22] MEDS ORDERED: HYDROMORPHONE HCL 0.5 MG/ 0.5 ML SYRINGE (J1170 PER 1) IV ONE ×2 (03:00→08:00)
[2021-05-22] MEDS: NS 1,000 ML IV SCH ×3 (09:55→16:21)
[2021-05-22] MEDS ORDERED: fentaNYL 100 MCG/2 ML INJECTION (J3010) As Ordered ONE (11:57)
[2021-05-22] MEDS ORDERED: diphenhydrAMINE 50MG/ML VIAL (J1200) As Ordered ONE (11:57)
[2021-05-22] MEDS ORDERED: LIDOCAINE 1% MDV 20ML VIAL As Ordered ONE (11:58)
[2021-05-22] MEDS ORDERED: MIDAZOLAM INJ 2MG/2ML VIAL (J2250 PER 1MG) As Ordered ONE (11:58)
[2021-05-22] MEDS ORDERED: ISOVUE-300 61% 50ML VIAL As Ordered ONE (11:58)
--- NOTE | 2021-05-22 12:25 | HPEPDOC ---
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 Patient reports she has been having worsening back pain for the last 4-5 days from her baseline chronic pain. She described the pain as sharp in the midlumbar region over the spinous processes radiating to the flanks and over the abdomen. She endorses having chronic right leg weakness which seems to have worsened and has been experiencing numbness as well as paresthesias in her right foot. She also reports numbness in the pelvic region. She denied chest pain, shortness of breath, palpitations, abdominal pain, nausea and vomiting at this junction. Patient was initially seen by the night provider, and due to the above concerns was not accepted by the medicine team. Emergency room department signed patient to day provider for possible hydro for the cause of pain. However, there are concerns that there maybe spinal pathology to her pain and weakness. She was ini tially not accepted, however provider was told by administration since there is spinal surgeon auto suspension and steering mechanic today this will be an emtala violation to transfer from the ed. Concerns by current provider were expressed including not being able to order appropriate imaging including possible mri since patient also has a pacemaker. However, was asked to accept patient for now and orthopedics team will help transfer once evaluated if there was absolute necessity. LINE ERECTOR APPRENTICE, lead hospitalist, and ED physician all aware of current circumstances. They aware of physical exam findings, and concerns for current provider wanting to transfer. PAST MEDICAL HISTORY: 1. History of pyelonephritis 2. 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 Hypertension 4. 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 Paroxysmal atrial fibrillation on aspirin 6. Jen-icnjcgn-bdltvnyez diabetes mellitus type 2 7. RUTHANN on CPAP 8. CKD stage III 9. Hypothyroidism 10. 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 Chronic anemia 12. Chronic abdominal pain with opiate dependence 13. Adrenal adenoma 14. Fibromyalgia 15. Restless leg syndrome 16. GERD PAST SURGICAL HISTORY: 1. Urostomy 2. Colostomy 3. Back injury with neurogenic bladder and bowel 4. Cholecystectomy 5. Hysterectomy 6. Reported several adhesion removal surgeries 7. Carpal tunnel release bilaterally SOCIAL HISTORY: Denies smoking, drinking, and use of recreational drugs. FAMILY HISTORY: Father: History of dementia, diabetes, macular degeneration Mother: History of CHF, diabetes mellitus ALLERGIES: Please see below. REVIEW OF SYSTEMS: 10 point review of system was negative except for what is noted in the HPI HOME MEDICATIONS: Please see below. PHYSICAL EXAMINATION: VITAL SIGNS: Please see below General: Lying in bed, no acute distress Head/Neck/Throat: Trachea midline, mucous membranes moist Eyes: Sclera anicteric, no erythema or discharge appreciated bilaterally. Thorax: Normal respiratory effort on room air, lungs clear to auscultation bilaterally, no wheezes/rales/rhonchi Cardiovascular: Normal rate, regular rhythm, normal S1, S2; no S3, S4, rubs/gallops/murmurs Abdomen: Bowel sounds present, soft, colostomy bag is full and functioning; urostomy is full of yellow urine. Genitourinary: No CVA tenderness, no Baig in place Skin: Warm, dry Neurologic: AAOx3, speech fluent and goal-directed. Moving legs in bed (reports chronic rsl). Unable to lift right leg off bed due to reported weakness. Able to lift leg off bed to approx 15 degrees against gravity. Reports numbness in the foot and pelvic region. Sensation to gross touch is intact in upper and lower extremities. Strength in upper extremities is 5/5. Palpation of the spinous process elicits tenderness at L4-L5 region. There is associated paralumbar tenderness reported. LABORATORY DATA: See below. IMAGING: Please refer to imaging section. MICROBIOLOGY: Please see below. ASSESSMENT/PLAN: #Acute on chronic back pain -Ct-scan of the abd noted spinal stenosis which is apparently chronic but on cli nical exam pt reports there is worsening symptoms. Unable to obtain MRI of brain and spine, due to pacemaker. Thus, will do our best with obtaining ct-scan of the brain and myelogram of the spine. -A myelogram of the lumbar spine was ordered at approx 1225 and according to x- ray tech this could not be done because the pt was scheduled to go IR for a procedure ordered by the ed provider. Asked for the patient to go after for the procedure but there was concerns that bc of anesthesia she may be sedated. Explained that this can be done after, however, without letting this provider know the imaging was cancelled. -Orthopedics/spinal surgeon consulted recommends transfer, as it was recommended in the ed prior to admission and will help with transfer. -continue chronic pain medications. #Bilateral hydronephrosis -Hx of urostomy. A lasix renal scan to assess extent of hydronephrosis was ordered, but ed provider had already sent pt to ir for nephrostomy tube. Medicine team had discussed case with urology and a Lasix renal scan was recommended for now and patient was to be evaluated by urology. #Acute kidney injury -Has resolved now. Continue to monitor renal function. #Restless leg syndrome -Continue ropinirole #Atrial fibrillation -Continue metoprolol succinate 25mg for rate control. #Hypertension Continue with amlodipine and metoprolol. If her renal function remained stable we will resume lisinopril. #Hypothyroidism Continue levothyroxine #Insomnia Continue trazodone and melatonin; hold diphenhydramine #GERD -Continue pantoprazole #DVT prophylaxis -Heparin subcu Vital Signs Vital Signs Date Time Temp Pulse Resp B/P (MAP) Pulse Ox O2 Delivery O2 Flow Rate FiO2 05/22/21 10:30 18 05/22/21 09:00 98.1 64 130/67 (88) 95 Room Air Laboratory Data Labs 24H Laboratory Tests 2 05/21/21 18:23: Immature Granulocyte % (Auto) 0.3, Neutrophils (%) (Auto) 65.4, Lymphocytes (%) (Auto) 20.9L, Monocytes (%) (Auto) 11.3H, Eosinophils (%) (Auto) 2.0, Basophils (%) (Auto) 0.1, Neutrophils # (Auto) 4.7, Lymphocytes # (Auto) 1.5, Monocytes # (Auto) 0.8, Eosinophils # (Auto) 0.1, Basophils # (Auto) 0.0, Nucleated Red Blood Cells % (auto) 0.0, Total Bilirubin 0.4, Direct Bilirubin 0.2, Aspartate Amino Transf (AST/SGOT) 13, Alanine Aminotransferase (ALT/SGPT) 13, Alkaline Phosphatase 108, Total Protein 6.6, Albumin 3.1L, Albumin/Globulin Ratio 0.9L, L ipase 98 05/21/21 18:31: Urine Color YELLOW, Urine Appearance CLOUDYH, Urine pH 7.0, Urine Specific [place] 1.011, Urine Protein 1+H, Urine Glucose (UA) NEGATIVE, Urine Ketones NE GATIVE, Urine Blood NEGATIVE, Urine Nitrite POSITIVEH, Urine Bilirubin NEGATIVE, Urine Urobilinogen 0.2, Urine Leukocyte Esterase 2+H, Urine WBC (Auto) 12H, Urine RBC (Auto) 2, Urine Hyaline Casts (Auto) 0, Urine Bacteria (Auto) 1+H, Urine Squamous Epithelial Cells 0, Urine Sperm (Auto) , Lactic Acid Level 0.9 05/21/21 18:48: POC Glucose (Misc Panel) 104, POC Sodium (Misc Panel) 139, POC Potassium (Misc Panel) 4.1, POC Chloride (Misc Panel) 107, POC Total CO2 (Misc Panel) 20.0L, POC Blood Urea Nitrogen (Misc Panel 20, POC Ionized Calcium (Misc Panel) 4.5, POC Creatinine (Misc Panel) 1.6H, POC Hematocrit (Misc Panel) 30.0L 05/22/21 00:23: Coronavirus (COVID-19)(PCR) NEGATIVE 05/22/21 09:41: POC Glucose (Misc Panel) 120H, POC Sodium (Misc Panel) 143, POC Potassium (Misc Panel) 4.3, POC Chloride (Misc Panel) 111H, POC Total CO2 (Misc Panel) 22.0L, POC Blood Urea Nitrogen (Misc Panel 17, POC Ionized Calcium (Misc Panel) 4.8, POC Creatinine (Misc Panel) 1.2, POC Hematocrit (Misc Panel) 30.0L CBC/BMP Laboratory Tests 05/21/21 18:23 Microbiology Microbiology 05/21/21 Urine Culture, Received Pending Home Medications Scheduled Amlodipine Besylate (Amlodipine Besylate) 10 Mg Tablet, 10 MG PO QHS Aspirin (Aspirin EC) 81 Mg Tabec, 81 MG PO QHS Ferrous Sulfate (Ferrous Sulfate) 324 Mg Tablet.dr, 324 MG PO BID Levothyroxine Sodium (Levothyroxine Sodium) 50 Mcg Tab, 50 MCG PO DAILY TAKES AT 1500 Lisinopril (Lisinopril) 20 Mg Tablet, 20 MG PO DAILY Melatonin (Melatonin) 10 Mg Capsule, 20 MG PO QHS Metaxalone (Skelaxin) 800 Mg Tab, 800 MG PO TID Metoprolol Succinate (Metoprolol Succinate) 25 Mg Tab.er.24h, 25 MG PO DAILY TAKES AT 1500 Oxycodone HCl (Oxycodone HCl ER) 20 Mg Tab, 20 MG PO BID TAKES AT 0900 and 2300 Oxycodone HCl (Oxycodone HCl) 10 Mg Tablet, 10 MG PO BID TAKES AT 1500 AND BEDTIME Pantoprazole Sodium (Pantoprazole Sodium) 40 Mg Tablet.dr, 40 MG PO QHS Pravastatin Sodium (Pravastatin Sodium) 20 Mg Tab, 20 MG PO DAILY Pregabalin (Lyrica) 100 Mg Cap, 100 MG PO TID Ropinirole HCl (Ropinirole HCl) 1 Mg Tablet, 1 MG PO BID TAKE AT 1600 & 2300 Trazodone HCl (Trazodone HCl) 100 Mg Tablet, 100 MG PO QHS Scheduled PRN Diphenhydramine HCl (Diphenhydramine HCl) 25 Mg Capsule, 50 MG PO QHS PRN for SLEEP Docusate Sodium (Colace) 100 Mg Capsule, 100 MG PO BID PRN for CONSTIPATION Nitroglycerin (Nitroglycerin) 0.4 Mg Sub, 0.4 MG SL NITRO PRN for CHEST PAIN Oxycodone HCl (Oxycodone HCl) 10 Mg Tablet, 10 MG PO Q6H PRN for PAIN LEVEL 5-10 Polyethylene Glycol 3350 (Miralax) 119 Gm Powder, 17 GM PO Q2D PRN for CONSTIPATION Allergies Coded Allergies: pneumococcal vaccine (Verified Allergy, Intermediate, hives, 04/09/21) influenza virus vacc trivalent, spl (Verified Adverse Reaction, Severe, coma, 04/09/21) influenza virus vaccine tv 2012-(18-49 yrs),rcmb (Verified Adverse Reac tion, Severe, flu vaccine - coma, 04/09/21) Corticosteroids (Glucocorticoids) (Verified Adverse Reaction, Mild, weakness, 04/09/21) TAPE (Verified Adverse Reaction, Mild, BLISTERS, 04/09/21) clonidine (Verified Adverse Reaction, Mild, faint, 04/09/21) quinapril (Verified Adverse Reaction, Mild, passed out, 04/09/21) zolpidem (Verified Adverse Reaction, Mild, sleep walking, 04/09/21) A-FIB/CHADSVASC A-FIB History Current/History of A-Fib/PAF?: No AKRAM,DAMION J. M.D. May 22, 2021 12:23
[2021-05-22] MEDS ORDERED: ceFAZolin 1GM VIAL (J0690 PER 500MG) As Ordered ONE (12:35)
--- NOTE | 2021-05-22 12:39 | SMCUROLCON ---
Urology Consultation General Date of Consultation 05/22/21 Reason For Consultation right sided pain and back pain and new right hydronephrosis on ct 76yo woman with ileal conduit History of Present Illness 76yo wf presented with back pain and reportedly right flank pain as well. Pt has ileal conduit. New right hydronephrosis on ct compared to ct in early 05/12. Asked to see re hydronephrosis as possible cause of pt's pain. Ileal conduit and colostomy. Reported neurogenic bladder and bowel that then led to both ostomies. Past Medical History Medical History restless leg back surgeries, back pain ostomies x 2 fibromyalgia h/o pyelonephritis htn parox afib dm2 anemia ckd3 светлнаа hypothyroidism bradycardia, pacer Surgical Hstory cholecystectomy hysterectomy ileal conduit colostomy back surgeries Family History Family History not pertinent from gu standpoint Social History * Smoker: non-smoker Alcohol: Denies Medications Current Medications Current Medications Medications (Trade) Dose Ordered Sig/Abraham Route PRN Reason Start Time Stop Time Status Last Admin Dose Admin Heparin Sodium (Porcine) (Heparin) 5,000 units Q8H SC 05/22/21 14:00 Home Med (Home Med List Complete!) ASDIRECTED XX 05/22/21 02:05 05/22/21 02:09 DC Hydromorphone HCl (Dilaudid) 0.5 mg Q30M PRN IV MODERATE PAIN (PS 5-7) 05/21/21 20:20 05/22/21 00:28 DC 05/22/21 00:28 Hydromorphone HCl (Dilaudid) 1 mg Q30M PRN IV SEVERE PAIN (PS 8-10) 05/22/21 09:35 05/22/21 10:30 Sodium Chloride 1,000 ml @ 100 mls/hr Q10H IV 05/21/21 23:55 05/21/21 23:59 Allergies Allergies: Coded Allergies: pneumococcal vaccine (Verified Allergy, Intermediate, hives, 04/09/21) influenza virus vacc trivalent, spl (Verified Adverse Reaction, Severe, coma, 04/09/21) influenza virus vaccine tv 2012-(18-49 yrs),rcmb (Verified Adverse Reaction, Severe, flu vaccine - coma, 04/09/21) Corticosteroids (Glucocorticoids) (Verified Adverse Reaction, Mild, weakness, 04/09/21) TAPE (Verified Adverse Reaction, Mild, BLISTERS, 04/09/21) clonidine (Verified Adverse Reaction, Mild, faint, 04/09/21) quinapril (Verified Adverse Reaction, Mild, passed out, 04/09/21) zolpidem (Verified Adverse Reaction, Mild, sleep walking, 04/09/21) Review of Systems General: Denies: Chills Constitutional: Denies: Fever Eyes: Denies: Pain ENT: Denies: Head Aches Skin: Denies: Rash Pulmonary: Denies: Dyspnea Cardiovascular: Denies Chest Pain Gastrointestinal: Reports: Other Symptoms (colostomy) Genitourinary: Denies: Hematuria Hematologic: Denies: Bleeding Excessively Endocrine: Denies: Polydipsia Musculoskeletal: Reports: Back Pain Neurological: Reports: Weakness Psych: Reports: Mood Normal Physical Examination General Exam: Other (in significant pain) EYE EXAM: Conjunctiva & lids normal ENT EXAM: Mucous membr. moist/pink Neck Exam: Supple Chest Exam: Clear to auscultation Heart Exam: Rate Normal Abdomen Exam: Soft; No: Tenderness Female Exam right nephrostomy tube in place draining clear urine ileal conduit ostomy draining clear urine Extremity Exam: No: Cyanosis Skin Exam: Nl turgor and temperature Neuro Exam: Normal Speech Psych Exam: Mental status NL Vital Signs/I&O Vital Signs Date Time Temp Pulse Resp B/P (MAP) Pulse Ox O2 Delivery O2 Flow Rate FiO2 05/22/21 10:30 18 05/22/21 09:00 98.1 64 130/67 (88) 95 Room Air Laboratory Data 24H Labs Laboratory Tests 2 05/21/21 18:23: Immature Granulocyte % (Auto) 0.3, Neutrophils (%) (Auto) 65.4, Lymphocytes (%) (Auto) 20.9L, Monocytes (%) (Auto) 11.3H, Eosinophils (%) (Auto) 2.0, Basophils (%) (Auto) 0.1, Neutrophils # (Auto) 4.7, Lymphocytes # (Auto) 1.5, Monocytes # (Auto) 0.8, Eosinophils # (Auto) 0.1, Basophils # (Auto) 0.0, Nucleated Red Blood Cells % (auto) 0.0, Total Bilirubin 0.4, Direct Bilirubin 0.2, Aspartate Amino Transf (AST/SGOT) 13, Alanine Aminotransferase (ALT/SGPT) 13, Alkaline Phosphatase 108, Total Protein 6.6, Albumin 3.1L, Albumin/Globulin Ratio 0.9L, Lipase 98 05/21/21 18:31: Urine Color YELLOW, Urine Appearance CLOUDYH, Urine pH 7.0, Urine Specific [place] 1.011, Urine Protein 1+H, Urine Glucose (UA) NEGATIVE, Urine Ketones NEGATIVE, Urine Blood NEGATIVE, Urine Nitrite POSITIVEH, Urine Bilirubin NEGATIVE, Urine Urobilinogen 0.2, Urine Leukocyte Esterase 2+H, Urine WBC (Auto) 12H, Urine RBC (Auto) 2, Urine Hyaline Casts (Auto) 0, Urine Bacteria (Auto) 1+H, Urine Squamous Epithelial Cells 0, Urine Sperm (Auto) , Lactic Acid Level 0.9 05/21/21 18:48: POC Glucose (Misc Panel) 104, POC Sodium (Misc Panel) 139, POC Potassium (Misc Panel) 4.1, POC Chloride (Misc Panel) 107, POC Total CO2 (Misc Panel) 20.0L, POC Blood Urea Nitrogen (Misc Panel 20, POC Ionized Calcium (Misc Panel) 4.5, POC Creatinine (Misc Panel) 1.6H, POC Hematocrit (Misc Panel) 30.0L 05/22/21 00:23: Coronavirus (COVID-19)(PCR) NEGATIVE 05/22/21 09:41: POC Glucose (Misc Panel) 120H, POC Sodium (Misc Panel) 143, POC Potassium (Misc Panel) 4.3, POC Chloride (Misc Panel) 111H, POC Total CO2 (Misc Panel) 22.0L, POC Blood Urea Nitrogen (Misc Panel 17, POC Ionized Calcium (Misc Panel) 4.8, POC Creatinine (Misc Panel) 1.2, POC Hematocrit (Misc Panel) 30.0L CBC/BMP Laboratory Tests 05/21/21 18:23 Microbiology Microbiology 05/21/21 Urine Culture, Received Pending Assessment ct's reviewed bl hydronephrosis but not very impressive right hydronephrosis is new compared to ct early 05/12 creatinine 1.6 yesterday and now 1.2 pt's pain seems to be more than expected from just possible obstruction of right urinary tract that, if it truly exists, probably developed gradually hydronephrosis is common is setting of ileal conduit before placing nephrostomy tube for suspected obstruction and pain secondary to obstruction, I would do a Lasix renal scan to document obstruction will see pt later today I talked to er provider and hospitalist thank you [phone] Plan see above ARACELY SIMPSON MD May 22, 2021 12:39
--- NOTE | 2021-05-22 12:48 | IRMSE ---
[facility] IR Moderate Sedation Eval. Date and Time Date: May 22, 2021 Time: 12:48 ASA Classification ASA Classification: III-Severe systemic dis. Mallampati Score: II NPO: Yes Obstructive Sleep Apnea: No Interval Plan: moderate sedation ANGELA MENDOZA MD May 22, 2021 12:48
[2021-05-22] MEDS ORDERED: MIRALAX *UNIT DOSE* 17GM PACKET PO PRN (12:55)
[2021-05-22] MEDS ORDERED: DOCUSATE SODIUM 100MG CAPSULE PO PRN (12:55)
[2021-05-22] MEDS ORDERED: PROMETHAZINE INJ 25 MG/ML VIAL (J2550) As Ordered ONE (13:11)
[2021-05-22 15:45] VITALS: BP 186/74
[2021-05-22] MEDS: METOPROLOL SUCC *XL* 25MG TAB (TopROL *XL*) PO SCH (16:09)
[2021-05-22] MEDS: PRAVASTATIN 20 MG TAB PO SCH (16:09)
[2021-05-22] MEDS: oxyCODONE 5MG TAB PO PRN (16:10)
[2021-05-22] MEDS: LEVOTHYROXINE 50MCG TABLET (0.05MG) PO SCH (16:12)
[2021-05-22] MEDS: HEPARIN SOD (PORCINE) 5000UNITS/ML 1ML VIAL/SYRINGE SC SCH ×2 (16:13→21:22)
[2021-05-22] MEDS: PREGABALIN 100 MG CAP (LYRICA) PO SCH ×2 (16:14→20:15)
[2021-05-22] MEDS ORDERED: ONDANSETRON 4MG/2ML VIAL IV PRN (16:20)
--- NOTE | 2021-05-22 16:59 | IPNPDOC ---
Date Seen The patient was seen on 05/22/21. Progress Note just saw pt she just made it to the floor s/p right nephrostomy tube tube is draining fine pt in significant pain states pain in low back hydronephrosis not the cause of pt's pain Lasix renal scan is of no value now that nephrostomy tube is in place VS, I&O, 24H, Fishbone Vital Signs/I&O Vital Signs Date Time Temp Pulse Resp B/P (MAP) Pulse Ox O2 Delivery O2 Flow Rate FiO2 05/22/21 16:40 20 Room Air 05/22/21 16:09 68 136/88 05/22/21 15:54 99.2 05/22/21 15:03 96 05/22/21 13:35 2.0 Laboratory Data 24H LABS Laboratory Tests 2 05/21/21 18:23: Immature Granulocyte % (Auto) 0.3, Neutrophils (%) (Auto) 65.4, Lymphocytes (%) (Auto) 20.9L, Monocytes (%) (Auto) 11.3H, Eosinophils (%) (Auto) 2.0, Basophils (%) (Auto) 0.1, Neutrophils # (Auto) 4.7, Lymphocytes # (Auto) 1.5, Monocytes # (Auto) 0.8, Eosinophils # (Auto) 0.1, Basophils # (Auto) 0.0, Nucleated Red Blood Cells % (auto) 0.0, Total Bilirubin 0.4, Direct Bilirubin 0.2, Aspartate Amino Transf (AST/SGOT) 13, Alanine Aminotransferase (ALT/SGPT) 13, Alkaline Phosphatase 108, Total Protein 6.6, Albumin 3.1L, Albumin/Globulin Ratio 0.9L, Lipase 98 05/21/21 18:31: Urine Color YELLOW, Urine Appearance CLOUDYH, Urine pH 7.0, Urine Specific [place] 1.011, Urine Protein 1+H, Urine Glucose (UA) NEGATIVE, Urine Ketones NEGATIVE, Urine Blood NEGATIVE, Urine Nitrite POSITIVEH, Urine Bilirubin NEGATIVE, Urine Urobilinogen 0.2, Urine Leukocyte Esterase 2+H, Urine WBC (Auto) 12H, Urine RBC (Auto) 2, Urine Hyaline Casts (Auto) 0, Urine Bacteria (Auto) 1+H, Urine Squamous Epithelial Cells 0, Urine Sperm (Auto) , Lactic Acid Level 0.9 05/21/21 18:48: POC Glucose (Misc Panel) 104, POC Sodium (Misc Panel) 139, POC Potassium (Misc Panel) 4.1, POC Chloride (Misc Panel) 107, POC Total CO2 (Misc Panel) 20.0L, POC Blood Urea Nitrogen (Misc Panel 20, POC Ionized Calcium (Misc Panel) 4.5, POC Creatinine (Misc Panel) 1.6H, POC Hematocrit (Misc Panel) 30.0L 05/22/21 00:23: Coronavirus (COVID-19)(PCR) NEGATIVE 05/22/21 09:41: POC Glucose (Misc Panel) 120H, POC Sodium (Misc Panel) 143, POC Potassium (Misc Panel) 4.3, POC Chloride (Misc Panel) 111H, POC Total CO2 (Misc Panel) 22.0L, POC Blood Urea Nitrogen (Misc Panel 17, POC Ionized Calcium (Misc Panel) 4.8, POC Creatinine (Misc Panel) 1.2, POC Hematocrit (Misc Panel) 30.0L CBC/BMP Laboratory Tests 05/21/21 18:23 Microbiology Microbiology 05/21/21 Urine Culture, Received Pending ARACELY SIMPSON MD May 22, 2021 16:59
--- NOTE | 2021-05-22 17:42 | CR.PDOC ---
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 Patient mainly complaining of back pain and progressive weakness of the lower extremities. Has had for lumbar back surgeries dating back to 1970s. States she has been in a chronic pain clinic for years. She states she has a left foot drop. Progressively getting worse. The last 5 days she developed severe onset low back pain radiating to her right leg with increasing numbness and tingling's in the lower extremities. She states she has significant weakness of the bilateral lower extremities. described the pain as sharp in the midlumbar region over the spinous processes radiating to the flanks and over the abdomen. She endorses having chronic right leg weakness which seems to have worsened and has been experiencing numbness as well as paresthesias in her right foot. She also reports numbness in the pelvic region. She denied chest pain, shortness of breath, palpitations, abdominal pain, nausea and vomiting at this junction. Patient was initially seen by the night provider, and due to the above concerns was not accepted by the medicine team. Emergency room department signed patient to day provider for possible hydro for the cause of pain. However, there are concerns that there maybe spinal pathology to her pain and weakness. Patient initially discussed with emergency physician hospitalist. Explained more concerned about hydronephrosis. After initial interview patient has significant back pain and leg weakness. She is unable to have an MRI. There is no CT myelogram available at the hospital at this time(discussed with radiology receptionist aristeo on-call , CT myelogram was ordered) given her history of multiple surgeries, no MRI, needs CT myelogram ; I suggested a transfer should be considered. This suggestion was declined by the emergency department. PAST MEDICAL HISTORY: 1. History of pyelonephritis 2. 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 Hypertension 4. 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 Paroxysmal atrial fibrillation on aspirin 6. Dte-[id number] diabetes mellitus type 2 7. RUTHANN on CPAP 8. CKD stage III 9. Hypothyroidism 10. 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 Chronic anemia 12. Chronic abdominal pain with opiate dependence 13. Adrenal adenoma 14. Fibromyalgia 15. Restless leg syndrome 16. GERD PAST SURGICAL HISTORY: 1. Urostomy 2. Colostomy 3. Back injury with neurogenic bladder and bowel 4. Cholecystectomy 5. Hysterectomy 6. Reported several adhesion removal surgeries 7. Carpal tunnel release bilaterally SOCIAL HISTORY: Denies smoking, drinking, and use of recreational drugs. FAMILY HISTORY: Father: History of dementia, diabetes, macular degeneration Mother: History of CHF, diabetes mellitus ALLERGIES: Please see below. REVIEW OF SYSTEMS: 10 point review of system was negative except for what is noted in the HPI HOME MEDICATIONS: Please see below. PHYSICAL EXAMINATION: VITAL SIGNS: Please see below General: Lying in bed, no acute distress Head/Neck/Throat: Trachea midline, mucous membranes moist Eyes: Sclera anicteric, no erythema or discharge appreciated bilaterally. Thorax: Normal respiratory effort on room air, lungs clear to auscultation bilaterally, no wheezes/rales/rhonchi Cardiovascular: Normal rate, regular rhythm, normal S1, S2; no S3, S4, rubs/gallops/murmurs Abdomen: Bowel sounds present, soft, colostomy bag is full and functioning; urostomy is full of yellow urine. Genitourinary: No CVA tenderness, no Baig in place Skin: Warm, dry Neurologic: AAOx3, speech fluent and goal-directed. Moving legs in bed (reports chronic rsl). Unable to lift right leg off bed due to reported weakness. Able to lift leg off bed to approx 15 degrees against gravity. Reports numbness in the foot and pelvic region. Sensation to gross touch is intact in upper and lower extremities. Strength in upper extremities is 5/5. Palpation of the spinous process elicits tenderness at L4-L5 region. There is associated paralumbar tenderness reported. Focused lower extremity exam Patient lying in the stretcher. Moderate distress from her low back pain. Inspection lower extremities. No signs of atrophy. Mild ecchymosis right upper tibia. Significant pain with straight leg raise as moves her lower back. Grade 2 power hip flexion Grade knee extension Grade 3 power ankle dorsiflexion left not sustained Grade 4 power ankle dorsiflexion right not sustained Grade 4 power plantarflexion bilaterally. Knee reflexes symmetrical bilaterally Ankle reflexes nonresponsive Negative Babinski's, negative ankle clonus Sensory exam to light touch. Patient states numbness possibly L4-L5 distributi on lower extremities. Digital rectal exam deferred Denies any perineal numbness Assessment: 69-year-old female history of chronic back pain of 4 lumbar surgeries in the 70s. No operative notes available. Progressive increasing back pain and leg weakness. Acute on chronic pain and weakness 5 days ago. Increasing right leg weakness. Now grade 3-4 power throughout lower extremities. Increasing numbness L4 and L5 distribution. CT abdomen shows multilevel signs of surgery with laminectomies and laminotomies. Possible severe stenosis L3-4 L4-5 L5-S1. Unable to have MRI because of pacemaker. As of the time of the dictation unable to obtain CT myelogram has expertise limited after hours and on weekend. Will translate this to hospitalist provider. Patient needs better imaging and consideration of revision lumbar decompression surgery. Explained to the patient this is very high risk given for previous surgeries. She seemed to understand this quite well but is in a lot of pain. I will defer any medical opinion on the hydronephrosis to urology. Plan: 1. CT myelogram lumbar spine ordered(note discussed with associate professor of radiology, states radiologist expertise not available, will communicate with hospitalist provider). 2. Pain control. 3. Consider possible transfer to facility that has available imaging and neurosurgical expertise. Vital Signs/I&O Vital Signs Date Time Temp Pulse Resp B/P (MAP) Pulse Ox O2 Delivery O2 Flow Rate FiO2 05/22/21 16:40 20 Room Air 05/22/21 16:09 68 136/88 05/22/21 15:54 99.2 05/22/21 15:03 96 05/22/21 13:35 2.0 Laboratory Data Labs 24H Laboratory Tests 2 05/21/21 18:23: Immature Granulocyte % (Auto) 0.3, Neutrophils (%) (Auto) 65.4, Lymphocytes (%) (Auto) 20.9L, Monocytes (%) (Auto) 11.3H, Eosinophils (%) (Auto) 2.0, Basophils (%) (Auto) 0.1, Neutrophils # (Auto) 4.7, Lymphocytes # (Auto) 1.5, Monocytes # (Auto) 0.8, Eosinophils # (Auto) 0.1, Basophils # (Auto) 0.0, Nucleated Red Blood Cells % (auto) 0.0, Total Bilirubin 0.4, Direct Bilirubin 0.2, Aspartate Amino Transf (AST/SGOT) 13, Alanine Aminotransferase (ALT/SGPT) 13, Alkaline Phosphatase 108, Total Protein 6.6, Albumin 3.1L, Albumin/Globulin Ratio 0.9L, Lipase 98 05/21/21 18:31: Urine Color YELLOW, Urine Appearance CLOUDYH, Urine pH 7.0, Urine Specific [place] 1.011, Urine Protein 1+H, Urine Glucose (UA) NEGATIVE, Urine Ketones NEGATIVE, Urine Blood NEGATIVE, Urine Nitrite POSITIVEH, Urine Bilirubin NEGATIVE, Urine Urobilinogen 0.2, Urine Leukocyte Esterase 2+H, Urine WBC (Auto) 12H, Urine RBC (Auto) 2, Urine Hyaline Casts (Auto) 0, Urine Bacteria (Auto) 1+H, Urine Squamous Epithelial Cells 0, Urine Sperm (Auto) , Lactic Acid Level 0.9 05/21/21 18:48: POC Glucose (Misc Panel) 104, POC Sodium (Misc Panel) 139, POC Potassium (Misc Panel) 4.1, POC Chloride (Misc Panel) 107, POC Total CO2 (Misc Panel) 20.0L, POC Blood Urea Nitrogen (Misc Panel 20, POC Ionized Calcium (Misc Panel) 4.5, POC Creatinine (Misc Panel) 1.6H, POC Hematocrit (Misc Panel) 30.0L 05/22/21 00:23: Coronavirus (COVID-19)(PCR) NEGATIVE 05/22/21 09:41: POC Glucose (Misc Panel) 120H, POC Sodium (Misc Panel) 143, POC Potassium (Misc Panel) 4.3, POC Chloride (Misc Panel) 111H, POC Total CO2 (Misc Panel) 22.0L, POC Blood Urea Nitrogen (Misc Panel 17, POC Ionized Calcium (Misc Panel) 4.8, POC Creatinine (Misc Panel) 1.2, POC Hematocrit (Misc Panel) 30.0L CBC/BMP Laboratory Tests 05/21/21 18:23 Microbiology Microbiology 05/21/21 Urine Culture, Received Pending Allergies Coded Allergies: pneumococcal vaccine (Verified Allergy, Intermediate, hives, 04/09/21) influenza virus vacc trivalent, spl (Verified Adverse Reaction, Severe, coma, 04/09/21) influenza virus vaccine tv 2012-14(18-49 yrs),rcmb (Verified Adverse Reaction, Severe, flu vaccine - coma, 04/09/21) Corticosteroids (Glucocorticoids) (Verified Adverse Reaction, Mild, weakness, 04/09/21) TAPE (Verified Adverse Reaction, Mild, BLISTERS, 04/09/21) clonidine (Verified Adverse Reaction, Mild, faint, 04/09/21) quinapril (Verified Adverse Reaction, Mild, passed out, 04/09/21) zolpidem (Verified Adverse Reaction, Mild, sleep walking, 04/09/21) Home Medications Scheduled Amlodipine Besylate (Amlodipine Besylate) 10 Mg Tablet, 10 MG PO QHS, (Reported) Aspirin (Aspirin EC) 81 Mg Tabec, 81 MG PO QHS, (Reported) Ferrous Sulfate (Ferrous Sulfate) 324 Mg Tablet.dr, 324 MG PO BID, (Reported) Levothyroxine Sodium (Levothyroxine Sodium) 50 Mcg Tab, 50 MCG PO DAILY, (Reported) TAKES AT 1500 Lisinopril (Lisinopril) 20 Mg Tablet, 20 MG PO DAILY, (Reported) Melatonin (Melatonin) 10 Mg Capsule, 20 MG PO QHS, (Reported) Metaxalone (Skelaxin) 800 Mg Tab, 800 MG PO TID, (Reported) Metoprolol Succinate (Metoprolol Succinate) 25 Mg Tab.er.24h, 25 MG PO DAILY, (Reported) TAKES AT 1500 Oxycodone HCl (Oxycodone HCl ER) 20 Mg Tab, 20 MG PO BID, (Reported) TAKES AT 0900 and 2300 Oxycodone HCl (Oxycodone HCl) 10 Mg Tablet, 10 MG PO BID, (Reported) TAKES AT 1500 AND BEDTIME Pantoprazole Sodium (Pantoprazole Sodium) 40 Mg Tablet.dr, 40 MG PO QHS, (Reported) Pravastatin Sodium (Pravastatin Sodium) 20 Mg Tab, 20 MG PO DAILY, (Reported) Pregabalin (Lyrica) 100 Mg Cap, 100 MG PO TID, (Reported) Ropinirole HCl (Ropinirole HCl) 1 Mg Tablet, 1 MG PO BID, (Reported) TAKE AT 1600 & 2300 Trazodone HCl (Trazodone HCl) 100 Mg Tablet, 100 MG PO QHS, (Reported) Scheduled PRN Diphenhydramine HCl (Diphenhydramine HCl) 25 Mg Capsule, 50 MG PO QHS PRN for SLEEP, (Reported) Docusate Sodium (Colace) 100 Mg Capsule, 100 MG PO BID PRN for CONSTIPATION, (Reported) Nitroglycerin (Nitroglycerin) 0.4 Mg Sub, 0.4 MG SL NITRO PRN for CHEST PAIN, (Reported) Oxycodone HCl (Oxycodone HCl) 10 Mg Tablet, 10 MG PO Q6H PRN for PAIN LEVEL 5- 10, (Reported) Polyethylene Glycol 3350 (Miralax) 119 Gm Powder, 17 GM PO Q2D PRN for CONSTIPATION, (Reported) SHERRON SHAH MD May 22, 2021 17:42
[2021-05-22] MEDS: METAXALONE 800 MG TABLET PO SCH ×2 (18:02→20:15)
--- NOTE | 2021-05-22 18:07 | REPVR ---
PROCEDURE INFORMATION: Exam: CT Head Without Contrast Exam date and time: 05/22/2021 5:26 PM Age: 76 years old Clinical indication: Weakness, extremity; Left; Additional info: RT leg weakness TECHNIQUE: Imaging protocol: Computed tomography of the head without contrast. Radiation optimization: All CT scans at this facility use at least one of these dose optimization techniques: automated exposure control; mA and/or kV adjustment per patient size (includes targeted exams where dose is matched to clinical indication); or iterative reconstruction. COMPARISON: CT Head without contrast 10/08/2019 3:02 PM FINDINGS: Brain: No intracranial mass, mass effect or midline shift. No acute intracranial hemorrhage. No CT evidence of acute cortical infarct. Ventricles, cisterns, and sulci are normal in size for age. Paranasal sinuses: Imaged paranasal sinuses are normally aerated. Mastoid air cells: Mastoid air cells and middle ear structures are normally aerated. Orbital cavity: Imaged orbits are unremarkable. Bones/joints: No calvarial fracture or destructive process. Soft tissues: No focal extracranial soft tissue swelling. IMPRESSION: No acute or concerning focal intracranial abnormality. Electronically signed by: Derrick Monge On 05/22/2021 18:06:36 PM
[2021-05-22 20:00] VITALS: BP 151/64
[2021-05-22] MEDS: oxyCODONE 20 MG CR TAB PO SCH (20:14)
[2021-05-22] MEDS ORDERED: ACETAMINOPHEN TAB 650MG DOSE (2X325MG) PO PRN (21:10)
[2021-05-22] MEDS: ASPIRIN 81MG ENTERIC TABLET PO SCH (21:22)
[2021-05-22] MEDS: traZODone 100 MG TAB PO SCH (21:23)
[2021-05-22] MEDS: PANTOPRAZOLE 40MG TAB (PROTONIX) PO SCH (21:23)
[2021-05-22] MEDS: rOPINIRole 1MG TAB PO SCH (21:23)
[2021-05-23] VITALS: BP 100/49
[2021-05-23] MEDS: NS 1,000 ML IV SCH ×3 (02:18→15:01)
[2021-05-23 04:00] VITALS: BP 133/65
[2021-05-23] MEDS: oxyCODONE 5MG TAB PO PRN ×2 (04:11→17:50)
[2021-05-23] MEDS: LEVOTHYROXINE 50MCG TABLET (0.05MG) PO SCH (06:41)
[2021-05-23] MEDS: HEPARIN SOD (PORCINE) 5000UNITS/ML 1ML VIAL/SYRINGE SC SCH ×3 (06:41→21:17)
[2021-05-23 07:33] VITALS: BP 132/60
[2021-05-23] MEDS: oxyCODONE 20 MG CR TAB PO SCH ×2 (08:54→21:14)
[2021-05-23] MEDS: PREGABALIN 100 MG CAP (LYRICA) PO SCH ×3 (08:54→21:18)
[2021-05-23] MEDS: rOPINIRole 1MG TAB PO SCH ×2 (08:54→21:14)
[2021-05-23] MEDS: METOPROLOL SUCC *XL* 25MG TAB (TopROL *XL*) PO SCH (08:54)
[2021-05-23] MEDS: PRAVASTATIN 20 MG TAB PO SCH (08:54)
[2021-05-23] MEDS: METAXALONE 800 MG TABLET PO SCH ×3 (08:54→21:16)
--- NOTE | 2021-05-23 10:24 | IPNPDOC ---
Text Note Date of Service The patient was seen on 05/23/21. NOTE Patient seen today 1 day after admission. Patient initially presented for hydronephrosis and back pain. History of left chronic leg weakness and pain. 5-day history of new onset right-sided weakness and pain. History is of 4 lumbar back surgeries dating back to the 1970s. Further discussion she states initial surgery may have been a discectomy. Several repeat surgeries or decompressions. Over the years progressive left leg weakness. She states she has a left leg foot drop. It has always been weaker leg. Difficulty with mobilizing preop. New onset right leg weakness. Examination: Patient lying in bed. She has been less distressed this morning. Still states pain is 8 out of 10. Flank pain has decreased mildly. Still has significant pain radiating down the right leg. Patient lying lateral decubitus position. Declined to return to the supine position for physical exam because it is too painful. Complains of decreased light touch sensation L4, L5, S1 distribution Perineal sensation decreased, she CT she knows I am palpating but believes the sensation is decreased. Digital rectal exam deferred. Grade 3 power of ankle plantar flexion dorsiflexion. (Note limited exam as patient is in the lateral decubitus position.) Able to flex and extend at the knees. Unable to examine hip flexion. Points discussed with patient 1. Discussed at length diagnosis of lumbar stenosis causing severe symptoms of neurogenic claudication with increasing weakness lower extremities. 2. Discuss limited availability of imaging at the hospital. Discussed with radiology staff orchestra conductor 06-10, discuss limited availability of staffing orchestra conductor perform safe procedure procedure. Procedure will require anesthesia. Recommended safest way to perform procedure would be on Tuesday when staffing is available. 3. Discussed at length chronic nature of her stenosis and progressive weakness lower extremities. Cannot predict if she will progress to full paralysis and lose control of lower extremities bowel bladder. She understands this possible outcome. Advise cervical treatment for severe stenosis with leg weakness is a decompression. However is very surgery given for previous lumbar surgeries, chronic kidney failure , limited availability of expertise and imaging at this time. 4.Patient understands quite well. She is quite understanding. Advised patient if she wants she can request a transfer where there may better availability of imaging and surgical expertise. I advised that medicine is providing the best care with limited imaging and difficulty with transfers at this time. Plan: 1. Called radiology emergency room, unable to advise which radiologist on-call, informed of requests for CT myelogram (advise this is typically not available over the weekend) 2. Continue pain management and neuro monitoring. 3. Consider initiating transfer to larger neurosurgical center. 4. Anesthesia consult requested for possible CT myelogram Tuesday, case discussed with radiologist on-call , MANAGER STORE on-call 05/23/2021 VS,Fishbone, I+O VS, Fishbone, I+O Vital Signs Date Time Temp Pulse Resp B/P (MAP) Pulse Ox O2 Delivery O2 Flow Rate FiO2 05/23/21 08:54 20 Nasal Cannula 2.0 05/23/21 08:54 62 132/60 05/23/21 07:33 98.0 99 I&O- Last 24 Hours up to 6 AM 05/23/21 06:00 Intake Total 1060 ml Output Total 475 ml Balance 585 ml SHERRON SHAH MD May 23, 2021 10:24
[2021-05-23 11:58] VITALS: BP 128/61
--- NOTE | 2021-05-23 12:01 | IPNPDOC ---
Date Seen The patient was seen on 05/23/21. Progress Note pt seen and examined lying in bed c/o back pain i/o's noted avss right nephrostomy and ileal conduit draining clear urine labs noted urine cx Serratia - questionable source of urine, ileal conduit bag? nephrostomy tube? I suspect ileal conduit bag at some point a Lasix renal scan can be done with right nephrostomy tube clamped to determine if right kidney is obstructed nephrostomy to gravity for now pain is not gu related if urine obtained from ileal conduit bag, I wouldn't treat the positive urine cx thank you [phone] VS, I&O, 24H, Fishbone Vital Signs/I&O Vital Signs Date Time Temp Pulse Resp B/P (MAP) Pulse Ox O2 Delivery O2 Flow Rate FiO2 05/23/21 08:54 20 Nasal Cannula 2.0 05/23/21 08:54 62 132/60 05/23/21 07:33 98.0 99 I&O- Last 24 Hours up to 6 AM 05/23/21 06:00 Intake Total 1060 ml Output Total 475 ml Balance 585 ml Laboratory Data Microbiology Microbiology 05/21/21 Urine Culture - Preliminary, Resulted Serratia Marcescens ARACELY SIMPSON MD May 23, 2021 12:01
--- NOTE | 2021-05-23 13:07 | IPNPDOC ---
Subjective Date Seen The patient was seen on 05/23/21. Subjective Chief Complaint/HPI Patient seen and examined at bedside this morning. She continues to complain of severe back pain and acute on chronic right leg weakness and numbness around the pelvic region which is unchanged from her time of admission. She reports there has been no improvement in her pain after receiving nephrostomy tubes. She denies fever, chills, abdominal pain, chest pain, and palpitations. Objective Physical Examination Other physical findings General: Lying in bed, no acute distress Head/Neck/Throat: Trachea midline, mucous membranes moist Eyes: Sclera anicteric, no erythema or discharge appreciated bilaterally. Thorax: Normal respiratory effort on room air, lungs clear to auscultation bila terally, no wheezes/rales/rhonchi Cardiovascular: Normal rate, regular rhythm, normal S1, S2; no S3, S4, rubs/gallops/murmurs Abdomen: Bowel sounds present, soft, colostomy bag is full and functioning; urostomy is full of yellow urine. Genitourinary: No CVA tenderness, no Baig in place Skin: Warm, dry Neurologic: AAOx3, speech fluent and goal-directed. Moving legs in bed (reports chronic rsl). Unable to lift right leg off bed due to reported weakness. Able to lift leg off bed to approx 15 degrees against gravity. Right plantar flexion and extension is limited due to reported pain. Reports numbness in the rt foot and pelvic region. Sensation to gross touch is intact in upper and lower extremities. Dorsalis pedis pulses are present. Strength in upper extremities is 5/5. Palpation of the spinous process elicits tenderness at L4-L5 region. There is associated paralumbar tenderness reported. Assessment /Plan Assessment #Acute on chronic back pain -Ct-scan of the abd noted spinal stenosis which is apparently chronic but on clinical exam pt reports there is worsening symptoms. Unable to obtain MRI of brain and spine, due to pacemaker this was noted in the emergency room department. -A myelogram of the lumbar spine was ordered at approx 1225 on 05/22/2021 and according to x-ray tech this could not be done because the pt was scheduled to go IR for a procedure ordered by the ed provider. Asked for the patient to go after for the procedure but there was concerns bc of anesthesia she may be sedated. Explained that this can still be done after, however, without letting this provider know the imaging was cancelled. Now it can only be done on 05/25 -Orthopedics/spinal surgeon consulted recommends transfer, as it was recommended in the ed prior to admission and will help with transfer. -continue chronic pain medications. #Bilateral hydronephrosis -Status post nephrostomy tubes this minimal improvement in her pain. #positive urine cx -plan to follow off antibiotics, urology recommendations #Acute kidney injury -Has resolved now. Continue to monitor renal function. #Restless leg syndrome -Continue ropinirole #Atrial fibrillation -Continue metoprolol succinate 25mg for rate control. #Hypertension Continue with amlodipine and metoprolol. If her renal function remained stable we will resume lisinopril. #Hypothyroidism Continue levothyroxine #Insomnia Continue trazodone and melatonin; hold diphenhydramine #GERD -Continue pantoprazole #DVT prophylaxis -Heparin subcu TRANSFER UPDATE: Attempt to transfer to [facility], but there were no beds available. Jennifer on-call neurosurgeon reported that this was nonemergent, and did not have capacity to accommodate for nonemergent cases at this time. Awaiting callback from [facility] Patient was accepted to [facility]. However, reported if no beds were available and 24 hours then transfer would consult and need to be reinitiated. Plan/VTE VTE Prophylaxis Ordered?: Yes VS, I&O, 24H, Fishbone Vital Signs/I&O Vital Signs Date Time Temp Pulse Resp B/P (MAP) Pulse Ox O2 Delivery O2 Flow Rate FiO2 05/23/21 12:00 2.0 05/23/21 11:58 98.0 62 16 128/61 (83) 97 Nasal Cannula I&O- Last 24 Hours up to 6 AM 05/23/21 06:00 Intake Total 1060 ml Output Total 475 ml Balance 585 ml Laboratory Data Microbiology Microbiology 05/21/21 Urine Culture - Preliminary, Resulted Serratia Marcescens DAMION SMILEY M.D. May 23, 2021 13:07
[2021-05-23] MEDS: BACTRIM 160MG/800MG DS TAB PO SCH ×2 (15:00→21:14)
[2021-05-23 16:00] VITALS: BP 136/63
[2021-05-23] MEDS ORDERED: LevoFLOXacin 750 MG TABLET PO SCH (18:00)
[2021-05-23 20:00] VITALS: BP 136/60
[2021-05-23] MEDS: ASPIRIN 81MG ENTERIC TABLET PO SCH (21:14)
[2021-05-23] MEDS: PANTOPRAZOLE 40MG TAB (PROTONIX) PO SCH (21:14)
[2021-05-23] MEDS: traZODone 100 MG TAB PO SCH (21:14)
[2021-05-24] VITALS: BP 141/63
--- NOTE | 2021-05-24 00:02 | DS.PDOC ---
Discharge Summary General Date of Admission May 22, 2021 at 12:22 Date of Discharge 05/23/21 Discharge Summary PROCEDURES PERFORMED DURING STAY: [None]. ADMITTING DIAGNOSES: acute on chronic back pain bilateral hydronephrosis acute kidney injury RLS atrial fibrillation hx of hypertension insomnia GERD DISCHARGE DIAGNOSES: severe lumbar stenosis causing severe symptoms of neurologic claudication, increasing lower ext weakness. bilateral hydronephrosis acute kidney injury RLS atrial fibrillation hx of hypertension insomnia GERD COMPLICATIONS/CHIEF COMPLAINT: Acute Kidney Injury, Hydronephrosis. HISTORY OF PRESENT ILLNESS: HPI was obtained from admitting note, signed by Dr. Castañeda. 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 Patient reports she has been having worsening back pain for the last 4-5 days from her baseline chronic pain. She described the pain as sharp in the midlumbar region over the spinous processes radiating to the flanks and over the abdomen. She endorses having chronic right leg weakness which seems to have worsened and has been experiencing numbness as well as paresthesias in her right foot. She also reports numbness in the pelvic region. She denied chest pain, shortness of breath, palpitations, abdominal pain, nausea and vomiting at this junction. Patient was initially seen by the night provider, and due to the above concerns was not accepted by the medicine team. Emergency room department signed patient to day provider for possible hydro for the cause of pain. However, there are concerns that there maybe spinal pathology to her pain and weakness. She was initially not accepted, however provider was told by administration since there is spinal surgeon alliance consultant today this will be an emtala violation to transfer from the ed. Concerns by current provider were expressed including not being able to order appropriate imaging including possible mri since patient also has a pacemaker. However, was asked to accept patient for now and orthopedics team will help transfer once evaluated if there was absolute necessity. PATTERN LAYOUT WORKER, lead hospitalist, and ED physician all aware of current circumstances. They aware of physical exam findings, and concerns for current provider wanting to transfer. " HOSPITAL COURSE: #Acute on chronic back pain likely 2/2 severe lumbar stenosis causing symptoms of severe neurogenic claudication with increased lower extremity weakness. - patient has concerning neurologic findings which include progressive weakness of bilateral LE, loss of fine touch sensation in distribution of L4, L5, S1 and worsening decrease of perineal sensation. - CT abdo pelvis showing s/p bilateral laminectomies at L2. Moderate to severe spinal stenosis at L3-L4. Severe spinal stenosis L4-l%. Fusion of L4-L5 disc space. Bulging annulus and severe central spinal stenosis at L5-S1. - limited imaging capabilities, unable to perform MRI LS imaging due to presence of pacemaker. - patient was evaluated by spinal surgeon Dr. Vail. Recommended to obtain CT myelogram, however due to lack of availability of alliance consultant staff, imaging delayed until 05/25/21. given hx of prior lumbar surgeries, limited availability of staffing and imaging modalities, recommended to transfer patient to larger neurosurgery center, for further eval and possible decompression. #Bilateral hydronephrosis - patient was sent to ER by nephrology clinic due to back pain - b/l hydronephrosis was seen on CT abdo pelvis (see study included) - Cr increased to 1.5 - patient has a hx of ileal conduit (hx of neurogenic bladder, s/p back trauma in 1970s). - patient recieved a R nephrostomy tube by IR - urology recommending lasix renal scan with R nephrostomy tube clamped to determine if R kidney is obstruction. R nephrostomy tube was left to gravity. - urology was not convinced back pain was related to issue. - Urine cx growing serratia, uncertain source, possibly ileal conduit bag, per urology - recommendation was not to treat positive urine cx #Acute kidney injury - Cr initially 1.6, has downtrened on POC Cr 1.2 on 05/22/21. #Restless leg syndrome -Continue ropinirole #Atrial fibrillation -Continue metoprolol succinate 25mg for rate control. #Hypertension Continue with amlodipine and metoprolol. If her renal function remained stable we will resume lisinopril. #Hypothyroidism Continue levothyroxine #Insomnia Continue trazodone and melatonin; hold diphenhydramine #GERD -Continue pantoprazole DISCHARGE MEDICATIONS: Please see below. ALLERGIES: Please see below. PHYSICAL EXAMINATION ON DISCHARGE: VITAL SIGNS: please see below General: NAD, comfortable HEENT: PERRLA, EOMI, sclerae clear Neck: supple, normal ROM, no JVD Respiratory: lungs CTAB, no wheeze, no rales, no crackles CVS: RRR, normal S1, S2, no murmurs Abdo: soft, no masses, no hepatosplenomegaly, BS+, no rebound tenderness. Colostomy bag is full of brown liquid stool, urostomy is full of clear yellow urine. Extremities: no edema, pulses 2+, no cyanosis. MSK: Severe pain to palpation of the lower back including paraspinal muscles as well as the flanks. Neuro: Cranial nerves II through XII intact. Clear speech. Patient's range of motion is severely limited in the right leg due to pain and weakness. Limited range of motion of the left leg due to pain. Right plantar flexion extension limited due to pain. Patient has decreased light touch sensation in the distribution of L4-L5 and S1 dermatomes. Patient has grade 3 power of ankle plantarflexion and dorsiflexion. Psych: calm, cooperative, AAO x 3 LABORATORY DATA: Please see below. IMAGING: CT abdo pelvis wo contrast (05/21/21): COMPARISON: CT ABD PELVIS W/O CONTRAST 04/23/2021 9:27 PM FINDINGS: Liver: There is enlargement of the left and caudate lobes of the liver as well as a lobular surface contour of the liver. Findings may indicate the presence of cirrhosis in this patient with no reported history of chronic liver disease. No focal abnormality demonstrated. Gallbladder and bile ducts: There has been a cholecystectomy. Pancreas: Normal. No ductal dilation. Spleen: Mild splenomegaly again redemonstrated. Adrenal glands: 2.1 cm right adrenal lipoma. Kidneys and ureters: Bilateral moderate hydroureteronephrosis status post urinary diversion procedure and ileostomy. Stricturing demonstrated in the distal left ureter may represent postsurgical scarring. Stomach and bowel: Left lower quadrant colostomy demonstrated abundant feces and liquid demonstrated in the ostomy bag. According to history ostomy contents are hemorrhagic although no evidence of acute hemorrhage demonstrated. Appendix: No evidence of appendicitis. Intraperitoneal space: Unremarkable. No free air. No significant fluid collection. Vasculature: Unremarkable. No abdominal aortic aneurysm. Lymph nodes: Unremarkable. No enlarged lymph nodes. Urinary bladder: Unremarkable as visualized. Reproductive: Unremarkable as visualized. Bones/joints: Status post bilateral laminectomies at L2. Moderate to severe central spinal stenosis L3-L4, severe central spinal stenosis L4-L5. Fusion of the L4-L5 disc space. Bulging annulus and severe central spinal stenosis L5-S1. Soft tissues: Unremarkable. Other findings: Osteoporosis. IMPRESSION: 1. 2.1 cm right adrenal lipoma. 2. There has been a cholecystectomy. 3. Possible cirrhosis as described above. 4. Bilateral moderate hydroureteronephrosis status post urinary diversion procedure and ileostomy. Stricturing demonstrated in the distal left ureter may represent postsurgical scarring. 5. Left lower quadrant colostomy demonstrated abundant feces and liquid demonstrated in the ostomy bag. According to history ostomy contents are hemorrhagic although no evidence of acute hemorrhage demonstrated. CT head wo contrast (05/22/21): COMPARISON: CT ABD PELVIS W/O CONTRAST 04/23/2021 9:27 PM FINDINGS: Liver: There is enlargement of the left and caudate lobes of the liver as well as a lobular surface contour of the liver. Findings may indicate the presence of cirrhosis in this patient with no reported history of chronic liver disease. No focal abnormality demonstrated. Gallbladder and bile ducts: There has been a cholecystectomy. Pancreas: Normal. No ductal dilation. Spleen: Mild splenomegaly again redemonstrated. Adrenal glands: 2.1 cm right adrenal lipoma. Kidneys and ureters: Bilateral moderate hydroureteronephrosis status post urinary diversion procedure and ileostomy. Stricturing demonstrated in the distal left ureter may represent postsurgical scarring. Stomach and bowel: Left lower quadrant colostomy demonstrated abundant feces and liquid demonstrated in the ostomy bag. According to history ostomy contents are hemorrhagic although no evidence of acute hemorrhage demonstrated. Appendix: No evidence of appendicitis. Intraperitoneal space: Unremarkable. No free air. No significant fluid collection. Vasculature: Unremarkable. No abdominal aortic aneurysm. Lymph nodes: Unremarkable. No enlarged lymph nodes. Urinary bladder: Unremarkable as visualized. Reproductive: Unremarkable as visualized. Bones/joints: Status post bilateral laminectomies at L2. Moderate to severe central spinal stenosis L3-L4, severe central spinal stenosis L4-L5. Fusion of the L4-L5 disc space. Bulging annulus and severe central spinal stenosis L5-S1. Soft tissues: Unremarkable. Other findings: Osteoporosis. IMPRESSION: 1. 2.1 cm right adrenal lipoma. 2. There has been a cholecystectomy. 3. Possible cirrhosis as described above. 4. Bilateral moderate hydroureteronephrosis status post urinary diversion procedure and ileostomy. Stricturing demonstrated in the distal left ureter may represent postsurgical scarring. 5. Left lower quadrant colostomy demonstrated abundant feces and liquid demonstrated in the ostomy bag. According to history ostomy contents are hemorrhagic although no evidence of acute hemorrhage demonstrated. PROGNOSIS: fair ACTIVITY: assisted ambulation only/bedrest. DIET: N.p.o. for now DISCHARGE PLAN: Transfer to [facility] for neurosurgery/spinal surgery evaluation. DISPOSITION: Transfer to [facility] for neurosurgery/spinal surgery evaluation. DISCHARGE CONDITION: [Stable]. TIME SPENT ON DISCHARGE: 35 minutes Vital Signs/I&Os Vital Signs Date Time Temp Pulse Resp B/P (MAP) Pulse Ox O2 Delivery O2 Flow Rate FiO2 05/23/21 21:16 69 136/60 05/23/21 21:14 20 Nasal Cannula 3.0 05/23/21 20:00 98.5 98 I&O- Last 24 Hours up to 6 AM 05/23/21 06:00 Intake Total 1060 ml Output Total 475 ml Balance 585 ml Microbiology Microbiology 05/21/21 Urine Culture - Preliminary, Resulted Serratia Marcescens Discharge Medications Scheduled Amlodipine Besylate (Amlodipine Besylate) 10 Mg Tablet, 10 MG PO QHS, (Reported) Aspirin (Aspirin EC) 81 Mg Tabec, 81 MG PO QHS, (Reported) Ferrous Sulfate (Ferrous Sulfate) 324 Mg Tablet.dr, 324 MG PO BID, (Reported) Levothyroxine Sodium (Levothyroxine Sodium) 50 Mcg Tab, 50 MCG PO DAILY, (Reported) TAKES AT 1500 Lisinopril (Lisinopril) 20 Mg Tablet, 20 MG PO DAILY, (Reported) Melatonin (Melatonin) 10 Mg Capsule, 20 MG PO QHS, (Reported) Metaxalone (Skelaxin) 800 Mg Tab, 800 MG PO TID, (Reported) Metoprolol Succinate (Metoprolol Succinate) 25 Mg Tab.er.24h, 25 MG PO DAILY, (Reported) TAKES AT 1500 Oxycodone HCl (Oxycodone HCl ER) 20 Mg Tab, 20 MG PO BID, (Reported) TAKES AT 0900 and 2300 Oxycodone HCl (Oxycodone HCl) 10 Mg Tablet, 10 MG PO BID, (Reported) TAKES AT 1500 AND BEDTIME Pantoprazole Sodium (Pantoprazole Sodium) 40 Mg Tablet.dr, 40 MG PO QHS, (Reported) Pravastatin Sodium (Pravastatin Sodium) 20 Mg Tab, 20 MG PO DAILY, (Reported) Pregabalin (Lyrica) 100 Mg Cap, 100 MG PO TID, (Reported) Ropinirole HCl (Ropinirole HCl) 1 Mg Tablet, 1 MG PO BID, (Reported) TAKE AT 1600 & 2300 Trazodone HCl (Trazodone HCl) 100 Mg Tablet, 100 MG PO QHS, (Reported) Scheduled PRN Diphenhydramine HCl (Diphenhydramine HCl) 25 Mg Capsule, 50 MG PO QHS PRN for SLEEP, (Reported) Docusate Sodium (Colace) 100 Mg Capsule, 100 MG PO BID PRN for CONSTIPATION, (Reported) Nitroglycerin (Nitroglycerin) 0.4 Mg Sub, 0.4 MG SL NITRO PRN for CHEST PAIN, (Reported) Oxycodone HCl (Oxycodone HCl) 10 Mg Tablet, 10 MG PO Q6H PRN for PAIN LEVEL 5- 10, (Reported) Polyethylene Glycol 3350 (Miralax) 119 Gm Powder, 17 GM PO Q2D PRN for CONSTIPATION, (Reported) Allergies Coded Allergies: pneumococcal vaccine (Verified Allergy, Intermediate, hives, 04/09/21) influenza virus vacc trivalent, spl (Verified Adverse Reaction, Severe, coma, 04/09/21) influenza virus vaccine tv 2013-14(18-49 yrs),rcmb (Verified Adverse Reaction, Severe, flu vaccine - coma, 04/09/21) Corticosteroids (Glucocorticoids) (Verified Adverse Reaction, Mild, weakness, 04/09/21) TAPE (Verified Adverse Reaction, Mild, BLISTERS, 04/09/21) clonidine (Verified Adverse Reaction, Mild, faint, 04/09/21) quinapril (Verified Adverse Reaction, Mild, passed out, 04/09/21) zolpidem (Verified Adverse Reaction, Mild, sleep walking, 04/09/21) SHANDRA ANNA MD May 24, 2021 00:02
[2021-05-24] MEDS: NS 1,000 ML IV SCH ×2 (00:45→07:37)
[2021-05-24 04:00] VITALS: BP 133/67
[2021-05-24 04:38] LABS: HEMATOCRIT 28.3 % (36.0-47.0); HEMOGLOBIN 8.9 g/dl (12.0-15.5); MEAN CORPUSCULAR HEMOGLOBIN 29.4 pg (27.0-33.0); MEAN CORPUSCULAR HGB CONC 31.4 g/dl (32.0-36.5); MEAN CORPUSCULAR VOLUME 93.4 fl (80.0-96.0); PLATELET COUNT, AUTOMATED 127 10^3/uL (150-450); RED BLOOD COUNT 3.03 10^6/uL (4.00-5.40); WHITE BLOOD COUNT 4.6 10^3/uL (4.0-10.0)
[2021-05-24 05:00] LABS: CREATININE FOR GFR 0.98 MG/DL (0.55-1.30); GLOMERULAR FILTRATION RATE 58.6 (>39); MAGNESIUM LEVEL 1.5 MG/DL (1.8-2.4); PHOSPHORUS LEVEL 2.2 MG/DL (2.5-4.9); POTASSIUM SERUM 4.3 MEQ/L (3.5-5.1)
[2021-05-24] MEDS: LEVOTHYROXINE 50MCG TABLET (0.05MG) PO SCH (06:36)
[2021-05-24] MEDS: HEPARIN SOD (PORCINE) 5000UNITS/ML 1ML VIAL/SYRINGE SC SCH (06:37)
[2021-05-24 07:40] VITALS: BP 150/76
[2021-05-24] MEDS ORDERED: MAGNESIUM OXIDE 400MG TAB (MAG-OX) PO ONE (08:15)
[2021-05-24] MEDS: rOPINIRole 1MG TAB PO SCH (08:18)
[2021-05-24 08:19] VITALS: BP 150/76
[2021-05-24] MEDS: BACTRIM 160MG/800MG DS TAB PO SCH (08:19)
[2021-05-24] MEDS: METOPROLOL SUCC *XL* 25MG TAB (TopROL *XL*) PO SCH (08:19)
[2021-05-24] MEDS: oxyCODONE 20 MG CR TAB PO SCH (08:19)
[2021-05-24] MEDS: PRAVASTATIN 20 MG TAB PO SCH (08:19)
[2021-05-24] MEDS: PREGABALIN 100 MG CAP (LYRICA) PO SCH (08:20)
[2021-05-24] MEDS: METAXALONE 800 MG TABLET PO SCH (08:20)
[2021-05-24] MEDS ORDERED: BACTDSTA PO (08:23)
[2021-05-24] MEDS ORDERED: PILL CUTTER 1 EACH XX PRN (08:55)
[2021-05-24] MEDS ORDERED: K-PHOS ORIGINAL (POT.ACID PHOSPHATE) 500MG TAB PO ONE (09:00)
[2021-05-24 09:47] VITALS: BP 130/60
[2021-05-24] MEDS: oxyCODONE 5MG TAB PO PRN (10:57)
--- NOTE | 2021-05-25 11:20 | IRPON ---
IR Postoperative Note Date Of Procedure: May 22, 2021 Time Of Procedure: 16:00 IR Postoperative Note IR Percutaneous nephrostomy catheter placement using fluoroscopic and ultrasound guidance. IR Nephrostogram and Ureterogram. IR Ultrasound of the right kidney. IR Moderate sedation. Clinical Information:Right-sided hydronephrosis. New from most recent prior CT. New right flank pain onset 4 to 5 days with worsening renal function. Referred from ER for right nephrostomy. Physician: Dr. Krause. Procedure: The patient was advised of the benefits, risks, and alternatives of the procedure and informed consent was obtained. A time out was performed with verification of the patient's name, MRN, site of procedure, and type of procedure to be performed. The patient was positioned in the prone position on the angiographic table. The site was prepped and draped in the usual sterile fashion. Moderate sedation was performed by the physician including the presence of an independent trained RN, who assisted in monitoring the patient's level of consciousness and physiological status. Following the administration of fentanyl and Versed, the physician spent 45 minutes of continuous [id number] time with the patient. A confidential investigator radiograph reveals no gross abnormality. The anticipated puncture site on the flank was anesthetized with lidocaine. Using ultrasound guidance, a lower pole calyx was accessed with a 21 Gauge Chiba needle. A nephrostogram and ureterogram were performed demonstrating hydronephrosis. A Declo wire was then advanced into the collecting system, under fluoroscopy guidance. The needle was then exchanged for a nonvascular introducer set. An Amplatz wire was then advanced into the ureter, under fluoroscopy guidance. This sheath was removed over the wire. An 8 Faroese nephrostomy catheter was then advanced, over the wire and under fluoroscopy guidance into the renal collecting system. The pigtail was formed and locked in position. A final nephrostogram and ureterogram were performed confirming positioning of the pigtail within the renal pelvis with hydronephrosis. While there is delayed emptying of the right kidney, the ureter does communicate with the ileal conduit. The catheter was sutured in position with 2-0 Prolene and a sterile dressing applied. The catheter was placed to gravity drainage. The patient tolerated the procedure well and was returned to the PRU in stable condition. EBL: < 5 mL. Complications:None. Conclusion: 1. Nephrostogram and Ureterogram demonstrateright-sided hydronephrosis and delayed emptying of the right renal collecting system. The right ureter does however communicate with the ileal conduit. 2. Successful right sided nephrostomy catheter placement. Patient to follow-up in IR in 2 weeks. Thank you for this referral. Cc ANGELA Brooke MD May 25, 2021 11:20
== END 2021-05-24 11:44 | disposition short-term general hospital (02) | DRG 661 ==
LOC: M ED 15:56 → M ED INP 05-22 12:22 → ENRESERV 05-22 13:57 → M PCU 05-22 15:54
PROVIDERS: ADMIT Internal Medicine; ATTEND Family Medicine
PROC: 0T9140Z Drainage of Left Kidney with Drainage Device, Percutaneous Endoscopic Approach (ICD-10-PCS; principal; 2021-05-22 12:47)
DX: N13.30 Unspecified hydronephrosis (principal); N17.9 Acute kidney failure, unspecified; M48.062 Spinal stenosis, lumbar region with neurogenic claudication; I48.0 Paroxysmal atrial fibrillation; G25.81 Restless legs syndrome; I12.9 Hypertensive chronic kidney disease with stage 1 through stage 4 chronic kidney disease, or unspecified chronic kidney disease; G47.33 Obstructive sleep apnea (adult) (pediatric); K21.9 Gastro-esophageal reflux disease without esophagitis; M79.7 Fibromyalgia; Z79.82 Long term (current) use of aspirin; Z79.899 Other long term (current) drug therapy; Z88.7 Allergy status to serum and vaccine; Z88.8 Allergy status to other drugs, medicaments and biological substances; E03.9 Hypothyroidism, unspecified; Z95.0 Presence of cardiac pacemaker; E11.9 Type 2 diabetes mellitus without complications; N18.30 Chronic kidney disease, stage 3 unspecified; K74.60 Unspecified cirrhosis of liver

== ENCOUNTER → 2021-05-21 | Outpatient (REF) | payer MEDICARE, BC ==
[~2021-05-21] MED LIST changes: +HEPARIN SOD (PORCINE) 5000UNITS/ML 1ML VIAL/SYRINGE SC SCH
== END ==
LOC: M LAB REF 17:39
PROVIDERS: ATTEND Internal Medicine Nephrology
DX: E83.42 Hypomagnesemia (principal)

== ENCOUNTER → 2021-06-16 | Outpatient (POV) | payer MEDICARE, BC ==
[~2021-06-16] MED LIST changes: -MAGN400T3 PO; +MAGN400T33 PO; +OXYC-141 PO
--- NOTE | 2021-06-18 12:18 | IRPN ---
[facility] IR Progress Note IR Progress Note DATE: Jun 16, 2021 Patient arrived late and did not stay for her appointment. Allergies Coded Allergies: pneumococcal vaccine (Verified Allergy, Intermediate, hives, 04/09/21) influenza virus vacc trivalent, spl (Verified Adverse Reaction, Severe, coma, 04/09/21) influenza virus vaccine tv 2013-14(18-49 yrs),rcmb (Verified Adverse Reaction, Severe, flu vaccine - coma, 04/09/21) Corticosteroids (Glucocorticoids) (Verified Adverse Reaction, Mild, weakness, 04/09/21) TAPE (Verified Adverse Reaction, Mild, BLISTERS, 04/09/21) clonidine (Verified Adverse Reaction, Mild, faint, 04/09/21) quinapril (Verified Adverse Reaction, Mild, passed out, 04/09/21) zolpidem (Verified Adverse Reaction, Mild, sleep walking, 04/09/21) ANGELA MENDOZA MD Jun 18, 2021 12:18
== END ==
LOC: M IRPOV 10:50
PROVIDERS: ATTEND Radiology Diagnostic Radiology
DX: Z53.21 Procedure and treatment not carried out due to patient leaving prior to being seen by health care provider (principal)

== ENCOUNTER → 2021-06-17 | Outpatient (CLI) | payer MEDICARE, BC | LOC: M LABSMTC 09:47 | PROVIDERS: ATTEND Anesthesiology | DX: Z11.52 Encounter for screening for COVID-19 (principal); Z20.822 Contact with and (suspected) exposure to COVID-19 ==

== ENCOUNTER 2021-06-22 11:02 | Day surgery (SDC) | payer MEDICARE, BC ==
[~2021-06-22] VITALS: Ht 165.1 cm; Wt 80.7 kg
[~2021-06-22 11:02] MED LIST changes: +NS 1,000 ML IV ONE
--- OUTSIDE RECORDS SUMMARY | 2021-06-22 11:07 | CCD | Continuity of Care Document ---
Author Author Uzma Walters Organization Unknown Address [address] [address] Phone [phone] Care Team Providers Care Museum Technician Name Role Phone Basil Flores MD AUTM [phone] Nilsa Keene MD AUTM [phone] Jhoana Moncada ANP AUTM [phone] Robert Anthony MD AUTM [phone] Mary Rogers MD AUTM [phone] Problems Active Problems Provider Date Colostomy bag changed Jac Malone MD Onset: 6 Pyoderma gangrenosum DMITRY Kendall Onset: 10/06/2005 Acute asthma Elia Mendez D.O. Onset: 2010 Backache Elia Mendez D.O. Onset: 2010 Obstructive sleep apnea syndrome Elia Mendez D.O. Onset: 05/17/2011 Essential hypertension Elia Mendez D.O. Onset: Type 2 diabetes mellitus Elia Mendez D.O. Onset: 0 05/17/2011 Pure hypercholesterolemia Elia Mendez D.O. Onset: 05/17/2011 Social History Type Date Description Comments Sex Unknown ETOH Use Denies alcohol use Tobacco Use Start: Unknown Patient has never smoked Allergies and adverse reactions Active Allergies Criticality Reaction | Severity Comments Date Codeine Unable to assess criticality 10/19/2010 Clonidine Unable to assess criticality 10/19/2010 Flu Virus Vaccine Unable to assess criticality 05/17/2011 Levaquin Unable to assess criticality upset stomac h and muscle aches 11/25/2015 Cymbalta Unable to assess criticality Unresponsive 12/17/2016 Medications Active Medications SIG Qnty Indications Ordering Provide r Date Metoprolol Succinate ER 25mg Tablets ER 24HR 1 by mouth every day 90tabs Jhoana Duran [facility] Albuterol Sulfate (2 .5mg/3ML) 0.083% Nebulizer use via aerosol neb four times a day as needed DX: J45.2 75ml Jhoana Duran [facility] 05/22/2020 Ropinirole HCL 1mg Tablets take 1 tablet by mouth at 4 pm and at bedtime 180tabs G25.81 Jhoana Duran [facility] 12/31/2019 Furosemide 20mg Tablets 1 by mouth every day prn 30tabs CAREY Oneill JR 020 Pantoprazole Sodium 40mg Tablets D R 1 by mouth every day 90tabs Jhoana Duran [facility] 06/20/2019 Oxycontin 20mg Tab ER 12H Abuse-De t 1 by mouth twice a day Unknown 04/09/2019 Lisinopril 20mg Tablets Take 1 tablet by mouth once daily 90tabs Davida Everett, ANP 09/19/2018 Colace 100mg Capsules 1 po bi d 120caps Jac Malone MD 04/07/2018 Nitrostat 0.4mg Tablets Sub one under tongue every 5 minutes x 3 as needed for chest discomfort 25tabs Jhoana Duran [facility] 02/03/2018 Trazodone HCL 100mg Tablets take one tablet by mouth at bedtime 90tabs G47.00 Jhoana Duran [facility] 01/20 Magnesium 400mg Tablets 1 by mouth twice daily Suad Gama [facility] 12/31/2016 Lidoderm 12 hrs on 12 hrs off 90units Sudha HeartOJudy 06/11/2016 Lyrica 100mg Capsules 1 by mouth 3x a day 90caps Sudha InterianoO. 06/11/2016 Vitamin B-12 1000mcg Tablets 1 by mouth every day 90tabs Sudha InterianoO. 06/11 Urinary Leg Bag Kit Medium/19Oz With Str aps Kit for nephrostomy tube collection bilateral. Hydronephr osis DX:N13.30 2unjudd GamaSHANNON 04/12/2016 Synthroid 50mcg Tablets 1 by mouth every day 90tabs SHANNON Walters 02/28/2013 Wrist Support/Elastic/Onesize Mis c wrist support for left and right dx 719.43 2unSudha CarrilloOJudy 02/13/2013 Multivitamins Tablets 1 po q d Sudha InterianoOJudy 12/07/2011 Aspirin Childrens 81mg Chewtabs 1 po qd Elia Mendez D.O. 01/27/2011 Nebulizer Misc use as direct ed 1unSudha CarrilloOJudy 01/27/2011 Aquacel Hydrofiber 6"X6" 10X10" Pa ds Use as Directed Daily Ulceration Bottom Of Ostomy 30units Sudha InterianoOJudy 12/01/2009 Pravastatin Sodium 20mg Tablets 1 by mouth every day 90tabs SHANNON Walters 11/07/2009 Metaxalone 800mg Tablets 1 by mouth tid Unknown Oxycodone HCL 10mg Tablets 1 PO bid Unknown Miralax [id number] Packet 17 grams in liquid as directed every day as needed Unknown Diphenhydramine HCL 50mg Capsules take 1 to 2 capsules by mouth at bedtime for insomnia and 1 capsule two times a day for anxiety Unknown Amlodipine Besylate 10mg Tablets 1 by mouth every day Unknown Iron (Ferrous Sulfate) 325(65Fe) mg Tablets 1 by mouth every day with juice Unknown History Medications Cefdinir 300mg Capsules 1 by mouth twice a day 20caps N39.0 SHANNON Walters 04/30/2021 - Covid-19 vaccine, Unspecified Inj ection Unknown - 02/2021 Medications Administered in Office Medication SIG Qnty Indications Ordering Provider Date Immunization Adminstration,1 Vaccine/Tox oid Injection SHANNON Walters 10/18/2018 Therapeutic Injection Injection Davida Everett, ANP 07/11/2018 Depo-Medrol Injection Injection Elia Mendez D.O. 01/15/2015 Immunizations CPT Code Status Date Vaccine Lot # [id number] Given 10/18/2018 Adacel- Tetanus Diphtheria P ertussis [id number] Given 06/03/2006 Pneumovax 23 [id number] Refused 11/10/2017 Zoster Vaccine [id number] Refused 11/10/2017 Tetanus/Diptheria(Td)Toxoids Preservative Free [id number] Refused 11/10/2017 Influenza Vaccin e Quadrivalent Preser/Antibiotic Free Im Use 06463 Refused 11/10/2017 Prevnar 13 Vital Signs Date Vital Result Comment 05/14/2021 2:48pm BP Systolic 120 mmHg BP Diastolic 60 mmHg Heart Rate 91 /min Height 65 inches 5'5" Weight 183.00 lb O2 % BldC Oximetry 91 % BMI (Body Mass Index) 30.4 kg/m2 04/30/2021 1:56pm BP Systolic 122 mmHg BP Diastolic 64 mmHg Heart Rate 82 /min Height 65 inches 5'5" Weight 181.00 lb O2 % BldC Oximetry 95 % RM Air BMI (Body Mass Index) 30.1 kg/m2 Results Test Acquired Date Facility Test Result H/L Range Note Laboratory test finding 05/22/2021 [facility] [address], [place] [id number] [phone] Coronavirus 2019 Nasopharygeal <pending> Sars Covid-19 Amplification NEGATIVE Normal Negative 1 Istat Chem8+ Panel 05/21/2021 [facility] nter [address] [place] [address] [phone] iSTAT HCT 30.0 % Low 38.0-51.0 iSTAT Glucose 104 mg/dL Normal 70-105 iSTAT Sodium 139 mEq/L Normal 136-145 iSTAT Potassium 4.1 mEq/L Normal 3.5-5.1 iSTAT CA++ 4.5 mg/dL Normal 4.5-5.3 iSTAT Chloride 107 mEq/L Normal 98-109 iSTAT Co2 20.0 MM/L Low 23.0-27.0 iSTAT BUN 20 mg/dL Normal 8-26 iSTAT Creatinine 1.6 mg/dL High 0.6-1.3 Laboratory test finding 05/21/2021 [facility] [address] [place] [address] [phone] Lactic Acid Sepsis Protocol 0.9 mmol/L Normal 0.4- 2.0 2 Complete Blood Count 05/14/2021 [facility] charlene sosa [employer] Machine: [place] [address] [phone] WBC 5.1 x10*3/UL 4.1 - 10.9 RBC 3.42 x10*6/UL Low 4.20 - 6.30 Hemoglobin 10.1 g/dL Low 12.0 - 18.0 3 Hematocrit 29.8 % Low 37.0 - 51.0 MCV 87.2 fL 80.0 - 97.0 MCH 29.5 pg 26.0 - 32.0 MCHC 33.8 g/dL 31.0 - 38.0 RDW 18.4 % High 11.6 - 13.7 PLT 182 x10*3/UL 140 - 440 MPV 10.4 FL 7.8 - 11.0 Lymph % 32.2 % 10.0 - 58.5 Mid % 7.9 % 1.7 - 9.3 Neut % 59.9 % 37.0 - 92.0 Lymph # 1.6 x10*3/UL 0.6 - 4.1 Mid # 0.5 x10*3/UL 0.1 - 0.6 Neut # 3.0 x10*3/UL 2.0 - 7.8 Comprehensive Chem Profile 05/14/2021 [facility] [employer]: [place] [address] [phone] Glucose 106 mg/dL High 74 - 99 4 BUN 17 mg/dL 7 - 18 Creatinine 1.3 mg/dL 0.6 - 1.3 Sodium 141 mEq/L 136 - 145 Potassium 4.5 mEq/L 3.5 - 5.1 Chloride 109 mEq/L High 98 - 107 Carbon Dioxide 22 mEq/L 21 - 32 Calcium 8.6 mg/dL 8.5 - 10.1 Alk. Phosphatase 117 mg/dL High 46 - 116 Total Bilirubin 0.2 mg/dL 0.2 - 1.0 Ast (Sgot) 19 U/L 15 - 37 Alt (SGPT) 22 U/L 12 - 78 Albumin 3.6 g/dL 3.4 - 5.0 Total Protein 6.7 g/dL 6.4 - 8.2 A/G Ratio 1.16 CALC 1.00 - 1.90 GFR 40 mL/min Low >60 GFR 48 mL/min Low >60 5 Complete Blood Count 05/06/2021 [facility] [employer] Machine: [place] [address] [phone] WBC 4.1 x10*3/UL 4.1 - 10.9 6 RBC 3.63 x10*6/UL Low 4.20 - 6.30 Hemoglobin 10.4 g/dL Low 12.0 - 18.0 Hematocrit 31.6 % Low 37.0 - 51.0 MCV 87.0 fL 80.0 - 97.0 MCH 28.6 pg 26.0 - 32.0 MCHC 32.9 g/dL 31.0 - 38.0 RDW 18.8 % High 11.6 - 13.7 PLT 220 x10*3/UL 140 - 440 MPV 9.8 FL 7.8 - 11.0 Lymph % 42.3 % 10.0 - 58.5 Mid % 6.5 % 1.7 - 9.3 Neut % 51.2 % 37.0 - 92.0 Lymph # 1.7 x10*3/UL 0.6 - 4.1 Mid # 0.3 x10*3/UL 0.1 - 0.6 Neut # 2.1 x10*3/UL 2.0 - 7.8 Complete Blood Count 02/24/2021 [facility] [employer]: [place] [address] [phone] WBC 3.8 x10*3/UL Low 4.1 - 10.9 7 RBC 3.16 x10*6/UL Low 4.20 - 6.30 Hemoglobin 8.6 g/dL Low 12.0 - 18.0 Hematocrit 25.5 % Low 37.0 - 51.0 MCV 80.6 fL 80.0 - 97.0 MCH 27.3 pg 26.0 - 32.0 MCHC 33.9 g/dL 31.0 - 38.0 RDW 15.5 % High 11.6 - 13.7 PLT 217 x10*3/UL 140 - 440 MPV 10.1 FL 7.8 - 11.0 Lymph % 35.2 % 10.0 - 58.5 Mid % 6.9 % 1.7 - 9.3 Neut % 57.9 % 37.0 - 92.0 Lymph # 1.3 x10*3/UL 0.6 - 4.1 Mid # 0.3 x10*3/UL 0.1 - 0.6 Neut # 2.2 x10*3/UL 2.0 - 7.8 A1c 02/24/2021 [facility] , [employer]: [place] [address] [phone] Hba1c 6.5 % High <5.7 8 Est Avg Glucose 140 mg/dL High 60 - 110 Comprehensive Chem Profile 02/24/2021 [facility], [employer]: [place] [address] [phone] Glucose 121 mg/dL High 74 - 99 9 BUN 13 mg/dL 7 - 18 Creatinine 1.3 mg/dL 0.6 - 1.3 Sodium 142 mEq/L 136 - 145 Potassium 3.8 mEq/L 3.5 - 5.1 Chloride 107 mEq/L 98 - 107 Carbon Dioxide 30 mEq/L 21 - 32 Calcium 8.7 mg/dL 8.5 - 10.1 Alk. Phosphatase 105 mg/dL 46 - 116 Total Bilirubin 0.3 mg/dL 0.2 - 1.0 Ast (Sgot) 14 U/L Low 15 - 37 Alt (SGPT) 15 U/L 12 - 78 Albumin 3.5 g/dL 3.4 - 5.0 Total Protein 7.0 g/dL 6.4 - 8.2 A/G Ratio 1.00 CALC 1.00 - 1.90 GFR 40 mL/min Low >60 GFR 48 mL/min Low >60 10 Lipid Profile 02/24/2021 [facility] , [employer]: [place] [address] [phone] Cholesterol 119 mg/dL Low 131 - 200 Triglycerides 92 mg/dL 30 - 150 HDL Cholesterol 50 mg/dL 35 - 60 LDL (Calculated) 51 CALC 50 - 159 Complete Blood Count 12/26/2020 [facility] charlene sosa [employer]: [place] [address] [phone] WBC 5.2 x10*3/UL 4.1 - 10.9 11 RBC 3.34 x10*6/UL Low 4.20 - 6.30 Hemoglobin 8.9 g/dL Low 12.0 - 18.0 Hematocrit 26.8 % Low 37.0 - 51.0 MCV 80.4 fL 80.0 - 97.0 MCH 26.7 pg 26.0 - 32.0 MCHC 33.2 g/dL 31.0 - 38.0 RDW 15.7 % High 11.6 - 13.7 PLT 206 x10*3/UL 140 - 440 MPV 10.1 FL 7.8 - 11.0 Lymph % 30.9 % 10.0 - 58.5 Mid % 5.8 % 1.7 - 9.3 Neut % 63.3 % 37.0 - 92.0 Lymph # 1.6 x10*3/UL 0.6 - 4.1 Mid # 0.3 x10*3/UL 0.1 - 0.6 Neut # 3.3 x10*3/UL 2.0 - 7.8 Comprehensive Chem Profile 12/26/2020 [facility] G[facility] [employer]: [place] [address] [phone] Glucose 111 mg/dL High 74 - 99 12 BUN 17 mg/dL 7 - 18 Creatinine 1.3 mg/dL 0.6 - 1.3 Sodium 143 mEq/L 136 - 145 Potassium 4.2 mEq/L 3.5 - 5.1 Chloride 108 mEq/L High 98 - 107 Carbon Dioxide 27 mEq/L 21 - 32 Calcium 8.5 mg/dL 8.5 - 10.1 Alk. Phosphatase 111 mg/dL 46 - 116 Total Bilirubin 0.3 mg/dL 0.2 - 1.0 Ast (Sgot) 19 U/L 15 - 37 Alt (SGPT) 20 U/L 12 - 78 Albumin 3.7 g/dL 3.4 - 5.0 Total Protein 7.0 g/dL 6.4 - 8.2 A/G Ratio 1.12 CALC 1.00 - 1.90 GFR 40 mL/min Low >60 GFR 48 mL/min Low >60 13 1 A false negative result may occur if a specimen is improperly collected, transported or handled. False negative results may also occur if inadequate numbers of organisms are present in the specimen. As with any molecular test, mutations within the target regions of Xpert Xpress SARS-CoV-2 could affect primer and/or probe binding resulting in failure to detect the presence of virus. This test cannot rule out diseases caused by other bacterial or viral pathogens. DISCLAIMER: Testing was performed using the [employer] SARS-CoV-2 test. This test was developed and its performance characteristics determined by [employer]. This test has not been FDA cleared or approved. This test has been authorized by FDA under an Emergency Use Authorization (EUA). This test is only authorized for the duration of time the declaration that circumstances exist justifying the authorization of the emergency use of in vitro diagnostic tests for detection of SARS-CoV-2 virus and/or diagnosis of COVID-19 infection under section 564(b)(1) of the Act, 21 U.S.C. 360bbb-3(b)(1), unless the authorization is terminated or revoked sooner. 2 Y/N query for Sepsis Lactate Rule: Y 3 NOTE: RESULT VERIFIED. 4 100-125 mg/dL PRE-DIABET ES/FASTING >126 mg/dL DIABETES/FASTING 5 CHRONIC KIDNEY DISEASE STAGI NG PER NKF STAGE I & II GFR >= 60 NORMAL TO MILDLY DECREASED STAGE III GFR 30-59 MODERATELY DECREASED STAGE IV GFR 15-29 SEVERELY DECREASED STAGE V GFR <15 VERY LITTLE GFR LEFT ESRD GFR <15 ON FOLDER MACHINE 6 NOTE: CBC VERIFIED 7 NOTE: CBC VERIFIED 8 Lab Result Notes: Pre-Diabetes 5.7 - 6.4 % Diabetes = or > 6.5% 9 100-125 mg/dL PRE-DIABET ES/FASTING >126 mg/dL DIABETES/FASTING 10 CHRONIC KIDNEY DISEASE STAGI NG PER NKF STAGE I & II GFR >= 60 NORMAL TO MILDLY DECREASED STAGE III GFR 30-59 MODERATELY DECREASED STAGE IV GFR 15-29 SEVERELY DECREASED STAGE V GFR <15 VERY LITTLE GFR LEFT ESRD GFR <15 ON FOLDER MACHINE 11 NOTE: CBC VERIFIED 12 100-125 mg/dL PRE-DIABET ES/FASTING >126 mg/dL DIABETES/FASTING 13 CHRONIC KIDNEY DISEASE STAGI NG PER NKF STAGE I & II GFR >= 60 NORMAL TO MILDLY DECREASED STAGE III GFR 30-59 MODERATELY DECREASED STAGE IV GFR 15-29 SEVERELY DECREASED STAGE V GFR <15 VERY LITTLE GFR LEFT ESRD GFR <15 ON FOLDER MACHINE Procedures Date Code Description Status 05/14/2021 15283 Office/Outpatient Established Mo d MDM 30-39 Min Completed 04/30/2021 54831 Office/Outpatient Established Mo d MDM 30-39 Min Completed 04/20/2021 10235 Complex Chronic Care MGMT Servic e Ea Addl 30 Min Completed 04/20/2021 08858 Complex Chronic Care Management SVC 1St 60 Min Completed 02/24/2021 05044 Office/Outpatient Established Mo d MDM 30-39 Min Completed 02/16/2021 90811 Complex Chronic Care MGMT Servic e Ea Addl 30 Min Completed 02/16/2021 93136 Complex Chronic Care Management SVC 1St 60 Min Completed 01/13/2021 44690 Complex Chronic Care MGMT Servic e Ea Addl 30 Min Completed 01/13/2021 85288 Complex Chronic Care Management SVC 1St 60 Min Completed 12/26/2020 87307 Office/Outpatient Established Mo d MDM 30-39 Min Completed 06/23/2020 90993625 Colonoscopy Completed 02/14/2020 693545712 Diabetic Foot Exam Completed 02/13/2020 479530481 Diabetic Foot Exam Completed 01/16/2020 93706020 Colonoscopy Completed 10/26/2019 293274986 Diabetic Retinal Eye Exam [facility] 03/22/2019 964017049 Diabetic Foot Exam Completed 02/08/2019 612418592 Diabetic Foot Exam Completed 05/12/2017 318167252 Diabetic Foot Exam Completed 07/30/2015 105227609 Diabetic Retinal Eye Exam [facility] 07/28/2015 413432264 Diabetic Foot Exam Completed 07/23/2015 108432389 Diabetic Foot Exam Completed 03/11/2014 33542781 Mammogram Completed 06/03/2012 256460839 Diabetic Retinal Eye Exam [facility] 12/03/2011 97592662 Colonoscopy Completed 05/06/2010 59467562 Mammogram Completed 05/06/2010 263518954 Bone Mineral Density Test [facility] 01/08/2009 073446340 Bone Mineral Density Test [facility] Medical Devices Description No Information Available Encounters Type Date Location Provider Dx Diagnosis Office Visit 05/14/2021 2:40p [facility] 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 Jhoana Triana, [employer]OVEL[employer] R60.0 Localized edema N18.32 Chronic kidney disease, stag e 3b D63.1 Anemia in chronic kidney dis ease Assessments Date Code Description Provider 05/14/2021 K94.01 Colostomy hemorrhage SHANNON Walters 05/14/2021 R10.31 Right lower quadrant pain Jhoana Duran, [facility] 05/14/2021 D50.0 Iron deficiency anemia secondary to blood loss (chronic) Jhoana Duran, [facility] 05/14/2021 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 Jhoana Duran, [facility] 05/14/2021 N18.32 Chronic kidney disease, stage 3b Jhoana Duran, [facility] 05/14/2021 R93.5 Abnormal findings on diagnostic imaging of other abdominal regions, including retroperitoneum Jhoana Duran, [facility] 05/06/2021 D63.1 Anemia in chronic kidney disease Jhoana Duran, [facility] 05/06/2021 D63.1 Anemia in chronic kidney disease Lab Schedule 04/30/2021 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 Jhoana Duran, [facility] 04/30/2021 E11.40 Type 2 diabetes caprice itus with diabetic neuropathy, [facility] I12.9 Hypertensive chronic kidney disease with stage 1 through stage 4 chronic kidney disease, or unspecified chronic kidney disease Jhoana Duran, [facility] 04/30/2021 N18.32 Chronic kidney disease, stage 3b Jhoana Duran, [facility] 04/30/2021 D63.1 Anemia in chronic kidney disease Jhoana Duran, [facility] 04/30/2021 E03.9 Hypothyroidism, unspecified Jhoana Duran, [facility] 04/30/2021 I48.0 Paroxysmal atrial fibrillation [facility] 04/30/2021 G47.33 Obstructive sleep apnea (adult) (pediatric) Jhoana Duran, [facility] 04/30/2021 K21.9 Gastro-esophageal reflux disease without esophagitis Jhoana Duran, [facility] 04/30/2021 K22.2 Esophageal obstruction Jhoana Isa Mihir geller, [facility] 04/30/2021 N39.0 Urinary tract infection, site no t specified Jhoana Duran, [facility] 04/20/2021 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 Jac Malone MD 04/20/2021 K21.9 Gastro-esophageal reflux disease without esophagitis Jac Malone MD 04/20/2021 N18.32 Chronic kidney disease, stage 3b Jac Malone MD 02/24/2021 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 Jhoana Duran [facility] 02/24/2021 I12.9 Hypertensive chronic kidney disease with stage 1 through stage 4 chronic kidney disease, or unspecified chronic kidney disease Jhoana Duran [facility] 02/24/2021 N18.32 Chronic kidney disease, stage 3b Jhoana Duran [facility] 02/24/2021 D63.1 Anemia in chronic kidney disease Jhoana Duran [facility] 02/24/2021 E03.9 Hypothyroidism, unspecified Jhoana Duran [facility] 02/24/2021 I48.0 Paroxysmal atrial fibrillation A elyse Isa Leos, [facility] 02/24/2021 G47.33 Obstructive sleep apnea (adult) (pediatric) Jhoana Duran [facility] 02/24/2021 E78.00 Pure hypercholesterolemia, unspe cified Jhoana Duran [facility] 02/24/2021 Z13.89 Encounter for screening for othe r disorder Jhoana Duran [facility] 02/16/2021 I12.9 Hypertensive chronic kidney disease with stage 1 through stage 4 chronic kidney disease, or unspecified chronic kidney disease Jac Malone MD 02/16/2021 E11.40 Type 2 diabetes caprice itus with diabetic neuropathy, unspecified Jac Malone MD 02/16/2021 K21.9 Gastro-esophageal reflux disease without esophagitis Jac Malone MD 02/16/2021 E03.9 Hypothyroidism, unspecified Unique mauricio Malone MD 01/13/2021 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 Jac Malone MD 01/13/2021 I12.9 Hypertensive chronic kidney disease with stage 1 through stage 4 chronic kidney disease, or unspecified chronic kidney disease Jac Malone MD 01/13/2021 E03.9 Hypothyroidism, unspecified Unique mauricio Malone MD 12/26/2020 R60.0 Localized edema Jhoana Duran [facility] 12/26/2020 N18.32 Chronic kidney disease, stage 3b Jhoana Duran [facility] 12/26/2020 D63.1 Anemia in chronic kidney disease SHANNON Walters Plan of Treatment Future Appointment(s):* 08/27/2021 2:20 pm - SHANNON Walters at [facility] * 05/27/2021 2:20 pm - Bronson Malone DO at [facility] 05/14/2021 - SHANNON Walters* K94.01 Colostomy hemorrhage* Comments:* Although, she has blood in her colostomy bag, her blood count has not changed much from April 23. Certainly this could be early hemorrhage. Recommend she monitor her colostomy bag and if she has further bleeding she will need to go to the emergency room. * R10.31 Right lower quadrant pain* Comments:* She states this is the same type of pain she gets when she obstructs. If it worsens recommend that she go to the emergency room. I am reluctant to start her on empiric antibiotic as I did not find evidence of diverticulosis in any of the reports are reviewed. * D50.0 Iron deficiency anemia secondary to blood loss (chronic)* Comments:* She is already taking iron. Will continue to be a problem unless we are able to determine where her acute GI blood loss is occurring from and can stop it. * E11.21 Type 2 diabetes mellitus with diabetic nephropathy * N18.32 Chronic kidney disease, stage 3b* Comments:* Complete medical panel obtained, reviewed and GFR is stable at 40. * R93.5 Abnormal findings on diagnostic imaging of other abdominal regions, including retroperitoneum* Comments:* The CT scan she had [facility] on April 23 showed a question of cirrhosis, diffuse pancreatic atrophy, and quite a bit of feces in the right and transverse colon consistent with constipation. The issue of possible cirrhosis will need to be addressed in the future. Functional Status Description No Information Available Mental Status Description No Information Available Referrals Refer to Reason for Referral Status Appt Date Dar Oneal MD CONSULT FOR SCREENING EGD DX: [id number] [place] Patient Notified 06/09/2021 [address] [facility] [address] [phone] [facility] CONSULT FOR RT KNEE PAIN Created [address] [place] [address] [phone]
--- OUTSIDE RECORDS SUMMARY | 2021-06-22 11:07 | CCD | Continuity of Care Document ---
Author Author Uzma Walters Organization Unknown Address [phone] [address] Phone [phone] Care Team Providers Care Tool And Die Manager Name Role Phone Basil Flores MD AUTM [phone] Nilsa Keene MD AUTM [phone] Jhoana Moncada ANP AUTM [phone] Robert Anthony MD AUTM [phone] Mary Rogers MD AUTM [phone] Problems Active Problems Provider Date Colostomy bag [...] by mouth every day 90tabs Jhoana Duran [facility] Albuterol Sulfate (2 .5mg/3ML) 0.083% Nebulizer use via aerosol neb four times a day as needed DX: J45.2 75ml Jhoana Duran [facility] 05/22/2020 Ropinirole HCL 1mg Tablets take 1 tablet by mouth at 4 pm and at bedtime 180tabs G25.81 Jhoana Duran [facility] 12/31/2019 Furosemide 20mg Tablets 1 by mouth every day prn 30tabs CAREY Oneill JR 020 Pantoprazole Sodium 40mg Tablets D R 1 by mouth every day 90tabs Jhoana Duran [facility] 06/20/2019 Oxycontin 20mg Tab ER 12H Abuse-De t 1 by mouth twice a day Unknown 04/09/2019 Lisinopril 20mg Tablets Take 1 tablet by mouth once daily 90tabs Davida Everett, ANP 09/19/2018 Colace 100mg Capsules 1 po bi d 120caps Jac Malone MD 04/07/2018 Nitrostat 0.4mg Tablets Sub one under tongue every 5 minutes x 3 as needed for chest discomfort 25tabs Jhoana Duran [facility] 02/03/2018 Trazodone HCL 100mg Tablets take one tablet by mouth at bedtime 90tabs G47.00 Jhoana Duran [facility] 01/20 Magnesium 400mg Tablets 1 by mouth twice daily Suad Gama [facility] 12/31/2016 Lidoderm 12 hrs on 12 hrs [...] CPT Code Status Date Vaccine Lot # [id number] Given 10/18/2018 Adacel- Tetanus Diphtheria P ertussis [id number] Given 06/03/2006 Pneumovax 23 45280 Refused 11/10/2017 Zoster Vaccine [id number] Refused 11/10/2017 Tetanus/Diptheria(Td)Toxoids Preservative Free [id number] Refused 11/10/2017 Influenza Vaccin e Quadrivalent Preser/Antibiotic Free Im Use [id number] Refused 11/10/2017 Prevnar 13 Vital Signs Date [...] Date Facility Test Result H/L Range Note Istat Chem8+ Panel 05/22/2021 [facility] [address]ter [address] [place], [place] [id number] [phone] iSTAT HCT 30.0 % Low 38.0-51.0 iSTAT Glucose 120 mg/dL High 70-105 iSTAT Sodium 143 mEq/L Normal 136-145 iSTAT Potassium 4.3 mEq/L Normal 3.5-5.1 iSTAT CA++ 4.8 mg/dL Normal 4.5-5.3 iSTAT Chloride 111 mEq/L High 98-109 iSTAT Co2 22.0 MM/L Low 23.0-27.0 iSTAT BUN 17 mg/dL Normal 8-26 iSTAT Creatinine 1.2 mg/dL Normal 0.6-1.3 Laboratory test finding 05/22/2021 [facility] [address] [place] [address] [phone] Sars Covid-19 Amplification NEGATIVE Normal Nega tive 1 Istat Chem8+ Panel 05/21/2021 [facility] [address]ter [address] [place] [address] [phone] iSTAT HCT 30.0 % Low 38.0-51.0 iSTAT Glucose 104 mg/dL Normal 70-105 iSTAT Sodium 139 mEq/L Normal 136-145 iSTAT Potassium 4.1 mEq/L Normal 3.5-5.1 iSTAT CA++ 4.5 mg/dL Normal 4.5-5.3 iSTAT Chloride 107 mEq/L Normal 98-109 iSTAT Co2 20.0 MM/L Low 23.0-27.0 iSTAT BUN 20 mg/dL Normal 8-26 iSTAT Creatinine 1.6 mg/dL High 0.6-1.3 Laboratory test finding 05/21/2021 [facility] [address] [place] [address] [phone] Lactic Acid Sepsis Protocol 0.9 mmol/L Normal 0.4- 2.0 2 Complete Blood Count 05/14/2021 [facility] Equine Breeder: [place] [address] [phone] WBC 5.1 x10*3/UL 4.1 - 10.9 RBC [...] 2.0 - 7.8 Comprehensive Chem Profile 05/14/2021 [facility] Equine Breeder: [place] [address] [phone] Glucose 106 mg/dL High 74 - 99 [...] Low >60 5 Complete Blood Count 05/06/2021 [facility] sosa Equine Breeder: [place] [address] [phone] WBC 4.1 x10*3/UL 4.1 - 10.9 6 [...] 2.0 - 7.8 Complete Blood Count 02/24/2021 [facility] Equine Breeder: [place] [address] [phone] WBC 3.8 x10*3/UL Low 4.1 - 10.9 [...] 2.2 x10*3/UL 2.0 - 7.8 A1c 02/24/2021 [facility] , Equine Breeder: [place] [address] [phone] Hba1c 6.5 % High <5.7 8 Est Avg Glucose 140 mg/dL High 60 - 110 Comprehensive Chem Profile 02/24/2021 [facility] om[facility] Equine Breeder: [place] [address] [phone] Glucose 121 mg/dL High 74 - 99 [...] mL/min Low >60 10 Lipid Profile 02/24/2021 [facility] Equine Breeder: [place] [address] [phone] Cholesterol 119 mg/dL Low 131 - 200 Triglycerides 92 mg/dL 30 - 150 HDL Cholesterol 50 mg/dL 35 - 60 LDL (Calculated) 51 CALC 50 - 159 Complete Blood Count 12/26/2020 [facility] Equine Breeder: [place] [address] [phone] WBC 5.2 x10*3/UL 4.1 - 10.9 11 [...] 2.0 - 7.8 Comprehensive Chem Profile 12/26/2020 [facility] Equ[facility]eder: Dr Jac Malone [place], [place] [address] [phone] Glucose 111 mg/dL High 74 - 99 [...] pathogens. DISCLAIMER: Testing was performed using the [employer] SARS-CoV-2 test. This test was developed and its performance characteristics determined by [employer]. This test has not been FDA cleared [...] LITTLE GFR LEFT ESRD GFR <15 ON QUALITY CONTROL CHEMIST 6 NOTE: CBC VERIFIED 7 NOTE: CBC [...] LITTLE GFR LEFT ESRD GFR <15 ON QUALITY CONTROL CHEMIST 11 NOTE: CBC VERIFIED 12 100-125 mg/dL PRE-DIABET ES/FASTING >126 mg/dL DIABETES/FASTING 13 CHRONIC KIDNEY DISEASE STAGI NG PER NKF STAGE I & II GFR >= 60 NORMAL TO MILDLY DECREASED STAGE III GFR 30-59 MODERATELY DECREASED STAGE IV GFR 15-29 SEVERELY DECREASED STAGE V GFR <15 VERY LITTLE GFR LEFT ESRD GFR <15 ON QUALITY CONTROL CHEMIST Procedures Date Code Description Status 05/14/2021 86572 Office/Outpatient Established Mo d MDM 30-39 Min Completed 04/30/2021 49732 Office/Outpatient Established Mo d MDM 30-39 Min Completed 04/20/2021 48039 Complex Chronic Care MGMT Servic e Ea Addl 30 Min Completed 04/20/2021 89768 Complex Chronic Care Management SVC 1St 60 Min Completed 02/24/2021 08681 Office/Outpatient Established Mo d MDM 30-39 Min Completed 02/16/2021 35980 Complex Chronic Care MGMT Servic e Ea Addl 30 Min Completed 02/16/2021 02656 Complex Chronic Care Management SVC 1St 60 Min Completed 01/13/2021 73717 Complex Chronic Care MGMT Servic e Ea Addl 30 Min Completed 01/13/2021 38766 Complex Chronic Care Management SVC 1St 60 Min Completed 12/26/2020 38048 Office/Outpatient Established Mo d MDM 30-39 Min Completed 06/23/2020 76030898 Colonoscopy Completed 02/14/2020 845389423 Diabetic Foot Exam Completed 02/13/2020 057710513 Diabetic Foot Exam Completed 01/16/2020 58987917 Colonoscopy Completed 10/26/2019 960880103 Diabetic Retinal Eye Exam Comple [facility] 03/22/2019 604998330 Diabetic Foot Exam Completed 02/08/2019 522444888 Diabetic Foot Exam Completed 05/12/2017 299579484 Diabetic Foot Exam Completed 07/30/2015 529683924 Diabetic Retinal Eye Exam Comple [facility] 07/28/2015 223643932 Diabetic Foot Exam Completed 07/23/2015 675740985 Diabetic Foot Exam Completed 03/11/2014 63757195 Mammogram Completed 06/03/2012 698736857 Diabetic Retinal Eye Exam Comple [facility] 12/03/2011 01778392 Colonoscopy Completed 05/06/2010 60143381 Mammogram Completed 05/06/2010 902145495 Bone Mineral Density Test [facility] 01/08/2009 757829833 Bone Mineral Density Test Comple [facility] Medical Devices Description No Information Available Encounters Type Date Location Provider Dx Diagnosis Office Visit 05/14/2021 2:40p [facility] 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 Jhoana Triana, [employer] E11.21 Type 2 diabetes mellitus with diabetic [...] e not specified Office Visit 02/24/2021 1:00p [facility] Jhoana Triana, [employer] E11.21 Type 2 diabetes mellitus with diabetic [...] for other disorder Office Visit 12/26/2020 11:40a [facility] 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 Jhoana Duran [facility] 05/14/2021 N18.32 Chronic kidney disease, stage 3b Jhoana Duran [facility] 05/14/2021 R93.5 Abnormal findings on diagnostic imaging of other abdominal regions, including retroperitoneum Jhoana Duran [facility] 05/06/2021 D63.1 Anemia in chronic kidney disease Jhoana Duran [facility] 05/06/2021 D63.1 Anemia in chronic kidney disease Lab Schedule 04/30/2021 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 Jhoana Duran [facility] 04/30/2021 E11.40 Type 2 diabetes caprice itus with diabetic neuropathy, unspecified Jhoana Duran [facility] 04/30/2021 I12.9 Hypertensive chronic kidney disease with stage 1 through stage 4 chronic kidney disease, or unspecified chronic kidney disease Jhoana Duran [facility] 04/30/2021 N18.32 Chronic kidney disease, stage 3b Jhoana Duran [facility] 04/30/2021 D63.1 Anemia in chronic kidney disease Jhoana Duran [facility] 04/30/2021 E03.9 Hypothyroidism, unspecified Jhoana Duran [facility] 04/30/2021 I48.0 Paroxysmal atrial fibrillation A elyse Duran [facility] 04/30/2021 G47.33 Obstructive sleep apnea (adult) (pediatric) Jhoana Moss [place], [facility] 04/30/2021 K21.9 Gastro-esophageal reflux disease without esophagitis Jhoana Moss [place], [facility] 04/30/2021 K22.2 Esophageal obstruction Jhoana Isa Ash yimi, [facility] 04/30/2021 N39.0 Urinary tract infection, site no t specified Jhoana Duran [facility] 04/20/2021 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 Jac Malone MD 04/20/2021 K21.9 Gastro-esophageal reflux disease without esophagitis Jac Malone MD 04/20/2021 N18.32 Chronic kidney disease, stage 3b Jac Malone MD 02/24/2021 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 Jhoana Duran [facility] 02/24/2021 I12.9 Hypertensive chronic kidney disease with stage 1 through stage 4 chronic kidney disease, or unspecified chronic kidney disease Jhoana Duran [facility] 02/24/2021 N18.32 Chronic kidney disease, stage 3b Jhoana Isa [place], [facility] 02/24/2021 D63.1 Anemia in chronic kidney disease Jhoana Isa Leos [facility] 02/24/2021 E03.9 Hypothyroidism, unspecified Jhoana Duran [facility] 02/24/2021 I48.0 Paroxysmal atrial fibrillation A elyse Isa Leos, [facility] 02/24/2021 G47.33 Obstructive sleep apnea (adult) (pediatric) Jhoana Moss [place] [facility] 02/24/2021 E78.00 Pure hypercholesterolemia, unspe cified Jhoana Isa Dafne [facility] 02/24/2021 Z13.89 Encounter for screening for othe r disorder Jhoana Duran [facility] 02/16/2021 I12.9 Hypertensive chronic kidney disease with [...] mauricio Malone MD 12/26/2020 R60.0 Localized edema SHANNON Walters 12/26/2020 N18.32 Chronic kidney disease, stage 3b SHANNON Walters 12/26/2020 D63.1 Anemia in chronic kidney disease SHANNON Walters Plan of Treatment Future Appointment(s):* 08/27/2021 2:20 pm - SHANNON Walters at [facility] * 05/27/2021 2:20 pm - Bronson Malone DO at [facility] 05/14/2021 - SHANNON Walters* K94.01 [...] retroperitoneum* Comments:* The CT scan she had [facility] on April 23 showed a question [...] DX: DYSPHAG IA Patient Notified 06/09/2021 [address] [facility] [address] [phone] [facility] CONSULT FOR RT KNEE PAIN Created [address] [place] [address] [phone]
--- OUTSIDE RECORDS SUMMARY | 2021-06-22 11:07 | CCD | Continuity of Care Document ---
Author Organization Unknown Address Unknown Phone Unavailable Care Team Providers Care Resident Care Aide Name Role Phone Basil Flores MD AUTM [phone] Nilsa Keene MD AUTM [phone] Jhoana Moncada ANP AUTM [phone] Robert Anthony MD AUTM [phone] Mary Rogers MD AUTM [phone] Problems Active Problems Provider Date Colostomy bag [...] by mouth every day 90tabs Jhoana Duran [facility] Albuterol Sulfate (2 .5mg/3ML) 0.083% Nebulizer use via aerosol neb four times a day as needed DX: J45.2 75ml Jhoana Duran [facility] 05/22/2020 Ropinirole HCL 1mg Tablets take 1 tablet by mouth at 4 pm and at bedtime 180tabs G25.81 Jhoana Duran [facility] 12/31/2019 Furosemide 20mg Tablets 1 by mouth every day prn 30tabs Albert Qureshi JR PA 020 Pantoprazole Sodium 40mg Tablets D R 1 by mouth every day 90tabs Jhoana Duran [facility] 06/20/2019 Oxycontin 20mg Tab ER 12H Abuse-De t 1 by mouth twice a day Unknown 04/09/2019 Lisinopril 20mg Tablets Take 1 tablet by mouth once daily 90tabs Davida Everett, ANP 09/19/2018 Colace 100mg Capsules 1 po bi d 120caps Jac Malone MD 04/07/2018 Nitrostat 0.4mg Tablets Sub one under tongue every 5 minutes x 3 as needed for chest discomfort 25tabs Jhoana Duran [facility] 02/03/2018 Trazodone HCL 100mg Tablets take one tablet by mouth at bedtime 90tabs G47.00 Jhoana Duran [facility] 01/20 Magnesium 400mg Tablets 1 by mouth twice daily SHANNON Mcdonald 12/31/2016 Lidoderm 12 hrs on 12 hrs off 90units Sudha HeartOJudy 06/11/2016 Lyrica 100mg Capsules 1 by mouth 3x a day 90caps Deidra Interiano.O. 06/11/2016 Vitamin B-12 1000mcg Tablets 1 by mouth every day 90tabs Sudha InterianoOJudy 06/11 Urinary Leg Bag Kit Medium/19Oz With Str aps Kit for nephrostomy tube collection bilateral. Hydronephr osis DX:N13.30 2units Suad Gama, SHANNON 04/12/2016 Synthroid 50mcg Tablets 1 by mouth every day 90tabs SHANNON Walters 02/28/2013 Wrist Support/Elastic/Onesize Mis c wrist support for left and right dx 719.43 2unSudha CarrilloOJudy 02/13/2013 Multivitamins Tablets 1 po q d Elia Mendez D.O. 12/07/2011 Aspirin Childrens 81mg Chewtabs 1 po qd Elia Mendez D.O. 01/27/2011 Nebulizer Misc use as direct ed 1unjudd Mendez D.O. 01/27/2011 Aquacel Hydrofiber 6"X6" 10X10" Pa ds Use as Directed Daily Ulceration Bottom Of Ostomy 30unjudd Mendez D.O. 12/01/2009 Pravastatin Sodium 20mg Tablets 1 by [...] Walters 10/18/2018 Therapeutic Injection Injection Davida Everett, DMITRY 07/11/2018 Depo-Medrol Injection Injection Sudha InterianoO. 01/15/2015 Immunizations CPT Code Status Date Vaccine Lot # [id number] Given 10/18/2018 Adacel- Tetanus Diphtheria P ertussis [id number] Given 06/03/2006 Pneumovax 23 40593 Refused 11/10/2017 Zoster Vaccine 62556 Refused 11/10/2017 Tetanus/Diptheria(Td)Toxoids Preservative Free 00251 Refused 11/10/2017 Influenza Vaccin e Quadrivalent Preser/Antibiotic Free [place] Use [id number] Refused 11/10/2017 Prevnar 13 Vital Signs Date [...] H/L Range Note Istat Chem8+ Panel 05/22/2021 [facility] [address]ter [address] [place] [address] [phone] iSTAT HCT 30.0 % Low 38.0-51.0 iSTAT Glucose 120 mg/dL High 70-105 iSTAT Sodium 143 mEq/L Normal 136-145 iSTAT Potassium 4.3 mEq/L Normal 3.5-5.1 iSTAT CA++ 4.8 mg/dL Normal 4.5-5.3 iSTAT Chloride 111 mEq/L High 98-109 iSTAT Co2 22.0 MM/L Low 23.0-27.0 iSTAT BUN 17 mg/dL Normal 8-26 iSTAT Creatinine 1.2 mg/dL Normal 0.6-1.3 Laboratory test finding 05/22/2021 [facility] [address] [place], [place] [id number] [phone] Sars Covid-19 Amplification NEGATIVE Normal Nega tive 1 Istat Chem8+ Panel 05/21/2021 [facility] [address] [place], [place] [id number] [phone] iSTAT HCT 30.0 % Low 38.0-51.0 iSTAT Glucose 104 mg/dL Normal 70-105 iSTAT Sodium 139 mEq/L Normal 136-145 iSTAT Potassium 4.1 mEq/L Normal 3.5-5.1 iSTAT CA++ 4.5 mg/dL Normal 4.5-5.3 iSTAT Chloride 107 mEq/L Normal 98-109 iSTAT Co2 20.0 MM/L Low 23.0-27.0 iSTAT BUN 20 mg/dL Normal 8-26 iSTAT Creatinine 1.6 mg/dL High 0.6-1.3 Laboratory test finding 05/21/2021 [facility] [address] [place] [address] [phone] Lactic Acid Sepsis Protocol 0.9 mmol/L Normal 0.4- 2.0 2 Complete Blood Count 05/14/2021 [facility] [employer] Refrigeration: [place] [address] [phone] WBC 5.1 x10*3/UL 4.1 - 10.9 RBC [...] 2.0 - 7.8 Comprehensive Chem Profile 05/14/2021 [facility] [employer] [facility] Refrigeration: Dr Jac Malone [place], [place] [id number] [phone] Glucose 106 mg/dL High 74 - 99 [...] Low >60 5 Complete Blood Count 05/06/2021 [facility] Station[facility] Refrigeration: [place] [address] [phone] WBC 4.1 x10*3/UL 4.1 - 10.9 6 [...] 2.0 - 7.8 Complete Blood Count 02/24/2021 [facility] [employer] Refrigeration: [place] [address] [phone] WBC 3.8 x10*3/UL Low 4.1 - 10.9 [...] 2.2 x10*3/UL 2.0 - 7.8 A1c 02/24/2021 [facility] [employer] Refrigeration: [place] [address] [phone] Hba1c 6.5 % High <5.7 8 Est Avg Glucose 140 mg/dL High 60 - 110 Comprehensive Chem Profile 02/24/2021 [facility], Stationary [employer] Refrigeration: [place] [address] [phone] Glucose 121 mg/dL High 74 - 99 [...] mL/min Low >60 10 Lipid Profile 02/24/2021 [facility] , Stationary [employer] Refrigeration: Dr Jac Malone [place] [id number] [phone] Cholesterol 119 mg/dL Low 131 - 200 Triglycerides 92 mg/dL 30 - 150 HDL Cholesterol 50 mg/dL 35 - 60 LDL (Calculated) 51 CALC 50 - 159 Complete Blood Count 12/26/2020 [facility] Stationary Engineer Refrigeration: [place] [address] [phone] WBC 5.2 x10*3/UL 4.1 - 10.9 11 [...] 2.0 - 7.8 Comprehensive Chem Profile 12/26/2020 [facility] Stationary [facility] Refrigeration: [place] [address] [phone] Glucose 111 mg/dL High 74 - 99 [...] pathogens. DISCLAIMER: Testing was performed using the [employer] SARS-CoV-2 test. This test was developed and its performance characteristics determined by [employer]. This test has not been FDA cleared [...] LITTLE GFR LEFT ESRD GFR <15 ON ASSURANCE ANALYST 6 NOTE: CBC VERIFIED 7 NOTE: CBC [...] LITTLE GFR LEFT ESRD GFR <15 ON ASSURANCE ANALYST 11 NOTE: CBC VERIFIED 12 100-125 mg/dL PRE-DIABET ES/FASTING >126 mg/dL DIABETES/FASTING 13 CHRONIC KIDNEY DISEASE STAGI NG PER NKF STAGE I & II GFR >= 60 NORMAL TO MILDLY DECREASED STAGE III GFR 30-59 MODERATELY DECREASED STAGE IV GFR 15-29 SEVERELY DECREASED STAGE V GFR <15 VERY LITTLE GFR LEFT ESRD GFR <15 ON ASSURANCE ANALYST Procedures Date Code Description Status 05/14/2021 22207 Office/Outpatient Established Mo d MDM 30-39 Min Completed 04/30/2021 63806 Office/Outpatient Established Mo d MDM 30-39 Min Completed 04/20/2021 31109 Complex Chronic Care MGMT Servic e Ea Addl 30 Min Completed 04/20/2021 74138 Complex Chronic Care Management SVC 1St 60 Min Completed 02/24/2021 26875 Office/Outpatient Established Mo d MDM 30-39 Min Completed 02/16/2021 05566 Complex Chronic Care MGMT Servic e Ea Addl 30 Min Completed 02/16/2021 69401 Complex Chronic Care Management SVC 1St 60 Min Completed 01/13/2021 15636 Complex Chronic Care MGMT Servic e Ea Addl 30 Min Completed 01/13/2021 00627 Complex Chronic Care Management SVC 1St 60 Min Completed 12/26/2020 33865 Office/Outpatient Established Mo d MDM 30-39 Min Completed 06/23/2020 67476742 Colonoscopy Completed 02/14/2020 224907805 Diabetic Foot Exam Completed 02/13/2020 209400327 Diabetic Foot Exam Completed 01/16/2020 98020983 Colonoscopy Completed 10/26/2019 660982337 Diabetic Retinal Eye Exam Comple kari 03/22/2019 347154281 Diabetic Foot Exam Completed 02/08/2019 144803407 Diabetic Foot Exam Completed 05/12/2017 770560280 Diabetic Foot Exam Completed 07/30/2015 045260095 Diabetic Retinal Eye Exam Comple [facility] 07/28/2015 968509774 Diabetic Foot Exam Completed 07/23/2015 202771181 Diabetic Foot Exam Completed 03/11/2014 19172331 Mammogram Completed 06/03/2012 809234376 Diabetic Retinal Eye Exam Comple [facility] 12/03/2011 47686770 Colonoscopy Completed 05/06/2010 90231263 Mammogram Completed 05/06/2010 767088377 Bone Mineral Density Test Comple [facility] 01/08/2009 366807695 Bone Mineral Density Test Comple [facility] Medical Devices Description No Information Available Encounters Type Date Location Provider Dx Diagnosis Office Visit 05/14/2021 2:40p [facility] 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 Jhoana Sinha ne, [employer] TE[employer]ER E11.21 Type 2 diabetes mellitus with diabetic [...] e not specified Office Visit 02/24/2021 1:00p [facility] Jhoana Sinha ne, [employer] TE[employer]ER E11.21 Type 2 diabetes mellitus with diabetic [...] for other disorder Office Visit 12/26/2020 11:40a [facility] 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 Jhoana Duran [facility] 05/14/2021 N18.32 Chronic kidney disease, stage 3b Jhoana Duran [facility] 05/14/2021 R93.5 Abnormal findings on diagnostic imaging of other abdominal regions, including retroperitoneum Jhoana Duran [facility] 05/06/2021 D63.1 Anemia in chronic kidney disease Jhoana Duran [facility] 05/06/2021 D63.1 Anemia in chronic kidney disease Lab Schedule 04/30/2021 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 Jhoana Duran [facility] 04/30/2021 E11.40 Type 2 diabetes caprice itus with diabetic neuropathy, unspecified Jhoana Duran [facility] 04/30/2021 I12.9 Hypertensive chronic kidney disease with stage 1 through stage 4 chronic kidney disease, or unspecified chronic kidney disease Jhoana Duran [facility] 04/30/2021 N18.32 Chronic kidney disease, stage 3b Jhoana Duran [facility] 04/30/2021 D63.1 Anemia in chronic kidney disease Jhoana Duran [facility] 04/30/2021 E03.9 Hypothyroidism, unspecified Jhoana Duran [facility] 04/30/2021 I48.0 Paroxysmal atrial fibrillation A elyse Duran [facility] 04/30/2021 G47.33 Obstructive sleep apnea (adult) (pediatric) Jhoana Duran [facility] 04/30/2021 K21.9 Gastro-esophageal reflux disease without esophagitis Jhoana Duran, [facility] 04/30/2021 K22.2 Esophageal obstruction Jhoana Triana, [facility] 04/30/2021 N39.0 Urinary tract infection, site no t specified Jhoana Duran [facility] 04/20/2021 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 Jac Malone MD 04/20/2021 K21.9 Gastro-esophageal reflux disease without esophagitis Jac Malone MD 04/20/2021 N18.32 Chronic kidney disease, stage 3b Jac Malone MD 02/24/2021 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 Jhoana Duran [facility] 02/24/2021 I12.9 Hypertensive chronic kidney disease with stage 1 through stage 4 chronic kidney disease, or unspecified chronic kidney disease Jhoana Duran [facility] 02/24/2021 N18.32 Chronic kidney disease, stage 3b Jhoana Duran [facility] 02/24/2021 D63.1 Anemia in chronic kidney disease Jhoana Duran [facility] 02/24/2021 E03.9 Hypothyroidism, unspecified Jhoana Duran [facility] 02/24/2021 I48.0 Paroxysmal atrial fibrillation A elyse Duran, [facility] 02/24/2021 G47.33 Obstructive sleep apnea (adult) (pediatric) Jhoana Duran [facility] 02/24/2021 E78.00 Pure hypercholesterolemia, unspe cified Jhoana Duran [facility] 02/24/2021 Z13.89 Encounter for screening for othe r disorder Jhoana Duran [facility] 02/16/2021 I12.9 Hypertensive chronic kidney disease with [...] 08/27/2021 2:20 pm - SHANNON Walters at [facility] * 05/27/2021 2:20 pm - Bronson Malone DO at [facility] 05/14/2021 - SHANNON Walters* K94.01 [...] retroperitoneum* Comments:* The CT scan she had [facility] on April 23 showed a question of [...] DX: DYSPHAG IA Patient Notified 06/09/2021 [address] [facility] [id number] [phone] [facility] CONSULT FOR RT KNEE PAIN Created [address] [place], [place] [id number] [phone]
--- OUTSIDE RECORDS SUMMARY | 2021-06-22 11:07 | CCD | Continuity of Care Document ---
Author Author Uzma ONEAL M.D Organization Unknown Address [address] [place] [id number] Phone [phone] Care Team Providers Care Aircraft Engine Technician Name Role Phone Jac Malone M.D. AUTM [phone] Jhoana Moncada AUTM [phone] Problems Active Problems Provider Date Dysphagia Dar Oneal M.D. Onset: 06/09/20 21 Anemia Dar Oneal M.D. Onset: 09/20/19 20 Social History Type Date Description Comments Sex Unknown ETOH Use Denies alcohol use Tobacco Use Start: Unknown Patient has never smoked Allergies and adverse reactions Active Allergies Criticality Reaction | Severity Comments Date Tape Unable to assess criticality 12/01/2011 Codeine Unable to assess criticality 12/01/2011 Medications Active Medications SIG Qnty Indications Ordering Provide r Date Amlodipine Besylate 5mg Tablets Unknown Levothyroxine Sodium 50mcg Tablets Jhoana MoncadaA.N.PJudy Lisinopril 20mg Tablets Take 1 Tablet By Mouth Once Daily Unknown Nitroglycerin 0.4mg Tablets Sub Dissolve One Tablet Under The Tongue Every 5 Minutes For Up To 3 Doses as Needed For Chest Pain. Unknown Oxycodone HCL 10mg Tablets Take One Tablet By Mouth Every 4 To 6 Hours as Needed For Pain Maximum Daily Dose2 Tablets Unknown Pravastatin Sodium 20mg Tablets Take 1 Tablet By Mouth Once Daily Unknown Aspirin Ec Low Dose 81mg Tablets DR Alcaraz Ferrous Sulfate 324(65Fe) mg Tablets Gary Rivas MD Metaxalone 800mg Tablets Take One Tablet By Mouth Three Times A Day as Needed Maximum Daily Dose 3 Unknown Metoprolol Succinate ER 25mg Tablets ER 24HR Jhoana Moncada A.N.P. 00 Ropinirole HCL 1mg Tablets Jhoana Moncada A.N.PJudy Trazodone HCL 100mg Tablets Jhoana Moncada A.NJudyPJudy Pregabalin 100mg Capsules Take One Capsule By Mouth Three Times A Day Maximum Daily Dose 3 Unknown Pantoprazole Sodium 40mg Tablets Jhoana ChangA.N.PJudy Melatonin 3mg Capsules 4 every night at bedtime as needed Unknown Immunizations Description No Information Available Vital Signs Date Vital Result Comment 06/09/2021 2:23pm Height 65 inches 5'5" Weight 171.00 lb BP Systolic 132 mmHg BP Diastolic 69 mmHg Heart Rate 69 /min BMI (Body Mass Index) 28.5 kg/m2 Weight 77.566 kg Body Temperature 96.7 F 06/05/2020 12:59pm Height 65 inches 5'5" Weight 176.00 lb BP Systolic 134 mmHg BP Diastolic 78 mmHg Heart Rate 86 /min BMI (Body Mass Index) 29.3 kg/m2 Weight 79.834 kg Body Temperature 93.6 F Results Description No Information Available Procedures Date Code Description Status 06/09/2021 08384 Office/Outpatient Established Lo w MDM 20-29 Min Completed Medical Devices Description No Information Available Encounters Type Date Location Provider Dx Diagnosis Office Visit 06/09/2021 2:00p Main Office Dar Oneal M.D. R 13.10 Dysphagia, unspecified R93.89 Abnormal findings on dx imag ing of oth body structures Assessments Date Code Description Provider 06/09/2021 R13.10 Dysphagia Dar waller M.D. 06/09/2021 R93.89 Radiology result abnormal Dar Oneal M.D. Plan of Treatment Future Appointment(s):* 06/22/2021 2:15 pm - Dar Oneal M.D. at Main Office 06/09/2021 - Dar Oneal M.D.* R13.10 Dysphagia* Comments:* 76 yo wf who presents for an egd due to a h/o dysphagia for 6 months. She has lost 5 lbs. Last scope was in 2019. No c/o abdominal pain, mild weight loss, change in bowel habits, or rectal bleeding. No family h/o colon cancer. No h/o chest pain, or sob. Studies suggest a cervical web/stricture.Plan:1. Egd + balloon dilatation, or conde.2. Informed consent.3. Soft diet. * R93.89 Radiology result abnormal* Comments:* As above. Functional Status Description No Information Available Mental Status Description No Information Available Referrals Description No Information Available
--- OUTSIDE RECORDS SUMMARY | 2021-06-22 11:08 | CCD | Continuity of Care Document ---
Author Author Lab Schedule, Uzma Aquino Organization Unknown Address [address] [address] Phone Unavailable Care Team Providers Care Reporting Manager Name Role Phone Basil Flores MD AUTM [phone] Nilsa Keene MD AUTM [phone] Jhoana Moncada ANP AUTM [phone] Robert Anthony MD AUTM [phone] Mary Rogers MD AUTM [phone] Problems Active Problems Provider Date Colostomy bag changed Jac Malone MD Onset: 6 Pyoderma gangrenosum DMITRY Kendall Onset: 10/06/2005 Exacerbation of asthma Elia Mendez D.O. Onset: Backache Elia Mendez D.O. Onset: 2010 Obstructive sleep apnea syndrome Elia Mendez D.O. Onset: 05/17/2011 Essential hypertension Elia Mendez D.O. Onset: Type 2 diabetes mellitus Elia Mendez D.O. Onset: 0 05/17/2011 Pure hypercholesterolemia Elia Mendez D.O. Onset: 05/17/2011 Social History Type Date Description Comments Sex Unknown ETOH Use Denies alcohol use Tobacco Use Start: Unknown Patient has never smoked Allergies, Adverse Reactions, Alerts Active Allergies Criticality Reaction | Severity Comments Date Codeine Unable to assess criticality 10/19/2010 Clonidine Unable to assess criticality 10/19/2010 Flu Virus Vaccine Unable to assess criticality 05/17/2011 Levaquin Unable to assess criticality upset stomac h and muscle aches 11/25/2015 Cymbalta Unable to assess criticality Unresponsive 12/17/2016 Medications Active Medications SIG Qnty Indications Ordering Provide r Date Cefdinir 300mg Capsules 1 by mouth twice a day 20caps N39.0 Jhoana Duran [facility] 04/30/2021 Amlodipine Besylate 10mg Tablets 1 by mouth every day Unknown 11/24/2020 Metoprolol Succinate ER 25mg Tablets ER 24HR 1 by mouth every day 90tabs Jhoana Duran [facility] Albuterol Sulfate (2 .5mg/3ML) 0.083% Nebulizer use via aerosol neb four times a day as needed DX: J45.2 75ml Jhoana Duran [facility] 05/22/2020 Ropinirole HCL 1mg Tablets take 1 tablet by mouth at 4 pm and at bedtime 180tabs G25.81 Jhoana Duran [facility] 12/31/2019 Furosemide 20mg Tablets 1 by mouth every day prn 30tabs Albert Qureshi JR PA 020 Pantoprazole Sodium 40mg Tablets D R 1 by mouth every day 90tabs Jhoana Duran [facility] 06/20/2019 Oxycontin 20mg Tab ER 12H Abuse-De t 1 by mouth twice a day Unknown 04/09/2019 Lisinopril 20mg Tablets Take 1 tablet by mouth once daily 90tabs Davida Everett, DMITRY 09/19/2018 Colace 100mg Capsules 1 po bi d 120caps Jac Malone MD 04/07/2018 Nitrostat 0.4mg Tablets Sub one under tongue every 5 minutes x 3 as needed for chest discomfort 25tabs Jhoana Duran [facility] 02/03/2018 Trazodone HCL 100mg Tablets take one tablet by mouth at bedtime 90tabs G47.00 Jhoana Duran [facility] 01/20 Magnesium 400mg Tablets 1 by mouth twice daily Suad Gama [facility] 12/31/2016 Lyrica 100mg Capsules 1 by mouth 3x a day 90caps Elia Mendez D.O. 06/11/2016 Vitamin B-12 1000mcg Tablets 1 by mouth every day 90tabs Sudha InterianoOJudy 06/11 Lidoderm 12 hrs on 12 hrs off 90unjudd Perez D.O. 06/11/2016 Urinary Leg Bag Kit Medium/19Oz With Str aps Kit for nephrostomy tube collection bilateral. Hydronephr osis DX:N13.30 2unjudd Gama, [employer] 04/12/2016 Synthroid 50mcg Tablets 1 by mouth [...] Directed Daily Ulceration Bottom Of Ostomy 30units Elia Mednez D.O. 12/01/2009 Pravastatin Sodium 20mg Tablets 1 [...] two times a day for anxiety Unknown Iron (Ferrous Sulfate) 325(65Fe) mg Tablets 1 by mouth every day with juice Unknown History Medications Covid-19 vaccine, Unspecified Inj ection Unknown - 02/2021 Medications Administered in Office Medication SIG Qnty Indications Ordering Provider Date Immunization Adminstration,1 Vaccine/Tox oid Injection SHANNON Walters 10/18/2018 Therapeutic Injection Injection DavidaDMITRY Kothari 07/11/2018 Depo-Medrol Injection Injection Elia Mendez D.O. 01/15/2015 Immunizations CPT Code Status Date Vaccine Lot # [id number] Given 10/18/2018 Adacel- Tetanus Diphtheria P ertussis [id number] Given 06/03/2006 Pneumovax 23 60131 Refused 11/10/2017 Zoster Vaccine 05225 Refused 11/10/2017 Tetanus/Diptheria(Td)Toxoids Preservative Free [id number] Refused 11/10/2017 Influenza Vaccin e Quadrivalent Preser/Antibiotic Free [place] Use 72935 Refused 11/10/2017 Prevnar 13 Vital Signs Date Vital Result Comment 04/30/2021 1:56pm BP Systolic 122 mmHg BP Diastolic 64 mmHg Heart Rate 82 /min Height 65 inches 5'5" Weight 181.00 lb O2 % BldC Oximetry 95 % RM Air BMI (Body Mass Index) 30.1 kg/m2 02/24/2021 12:48pm BP Systolic 138 mmHg BP Diastolic 60 mmHg BP Systolic Lying Down 130 mmHg laying down BP Diastolic Lying Down 60 mmHg laying down BP Systolic Sitting 120 mmHg sitting BP Diastolic Sitting 70 mmHg sitting BP Systolic Standing 140 mmHg standing BP Diastolic Standing 70 mmHg standing Heart Rate 90 /min Height 65 inches 5'5" Weight 184.38 lb O2 % BldC Oximetry 94 % RM Air O2 Saturation Level with Exercise 91 % while walking BMI (Body Mass Index) 30.7 kg/m2 Results Test Acquired Date Facility Test Result H/L Range Note Complete Blood Count 05/06/2021 [facility] Fire Claims Adjuster: [place] [address] [phone] WBC 4.1 x10*3/UL 4.1 - 10.9 1 RBC 3.63 x10*6/UL Low 4.20 - 6.30 [...] 2.0 - 7.8 Complete Blood Count 02/24/2021 [facility] Fire Claims Adjuster: [place] [address] [phone] WBC 3.8 x10*3/UL Low 4.1 - 10.9 2 RBC 3.16 x10*6/UL Low 4.20 - 6.30 [...] 2.2 x10*3/UL 2.0 - 7.8 A1c 02/24/2021 [facility] Fire Claims Adjuster: [place] [address] [phone] Hba1c 6.5 % High <5.7 3 Est Avg Glucose 140 mg/dL High 60 - 110 Comprehensive Chem Profile 02/24/2021 [facility] Fire Claims Adjuster: [place] [address] [phone] Glucose 121 mg/dL High 74 - 99 4 BUN 13 mg/dL 7 - 18 Creatinine [...] >60 GFR 48 mL/min Low >60 5 Lipid Profile 02/24/2021 [facility] Fire Claims Adjuster: [place] [address] [phone] Cholesterol 119 mg/dL Low 131 - 200 Triglycerides 92 mg/dL 30 - 150 HDL Cholesterol 50 mg/dL 35 - 60 LDL (Calculated) 51 CALC 50 - 159 Complete Blood Count 12/26/2020 [facility] Fire Claims Adjuster: [place] [address] [phone] WBC 5.2 x10*3/UL 4.1 - 10.9 6 RBC 3.34 x10*6/UL Low 4.20 - 6.30 [...] 2.0 - 7.8 Comprehensive Chem Profile 12/26/2020 [facility] Claims Adjuster: Dr Jac Malone [place], [place] [id number] [phone] Glucose 111 mg/dL High 74 - 99 7 BUN 17 mg/dL 7 - 18 Creatinine [...] Low >60 GFR 48 mL/min Low >60 8 1 NOTE: CBC VERIFIED 2 NOTE: CBC VERIFIED 3 Lab Result Notes: Pre-Diabetes 5.7 - 6.4 % Diabetes = or > 6.5% 4 100-125 mg/dL PRE-DIABET ES/FASTING >126 mg/dL DIABETES/FASTING 5 CHRONIC KIDNEY DISEASE STAGI NG PER NKF STAGE I & II GFR >= 60 NORMAL TO MILDLY DECREASED STAGE III GFR 30-59 MODERATELY DECREASED STAGE IV GFR 15-29 SEVERELY DECREASED STAGE V GFR <15 VERY LITTLE GFR LEFT ESRD GFR <15 ON EMT B 6 NOTE: CBC VERIFIED 7 100-125 mg/dL PRE-DIABET ES/FASTING >126 mg/dL DIABETES/FASTING 8 CHRONIC KIDNEY DISEASE STAGI NG PER NKF STAGE I & II GFR >= 60 NORMAL TO MILDLY DECREASED STAGE III GFR 30-59 MODERATELY DECREASED STAGE IV GFR 15-29 SEVERELY DECREASED STAGE V GFR <15 VERY LITTLE GFR LEFT ESRD GFR <15 ON EMT B Procedures Date Code Description Status 04/30/2021 14334 Office/Outpatient Established Mo d MDM 30-39 Min Completed 02/24/2021 28118 Office/Outpatient Established Mo d MDM 30-39 Min Completed 02/16/2021 88475 Complex Chronic Care MGMT Servic e Ea Addl 30 Min Completed 02/16/2021 00010 Complex Chronic Care Management SVC 1St 60 Min Completed 01/13/2021 18742 Complex Chronic Care MGMT Servic e Ea Addl 30 Min Completed 01/13/2021 98054 Complex Chronic Care Management SVC 1St 60 Min Completed 12/26/2020 08924 Office/Outpatient Established Mo d MDM 30-39 Min Completed 06/23/2020 [id number] Colonoscopy Completed 02/14/2020 [id number] Diabetic Foot Exam Completed 02/13/2020 803560340 Diabetic Foot Exam Completed 01/16/2020 05134616 Colonoscopy Completed 10/26/2019 [id number] Diabetic Retinal Eye Exam [facility] 03/22/2019 767795552 Diabetic Foot Exam Completed 02/08/2019 963685957 Diabetic Foot Exam Completed 05/12/2017 462658413 Diabetic Foot Exam Completed 07/30/2015 350809868 Diabetic Retinal Eye Exam [facility] 07/28/2015 561264274 Diabetic Foot Exam Completed 07/23/2015 315897167 Diabetic Foot Exam Completed 03/11/2014 62698024 Mammogram Completed 06/03/2012 167179426 Diabetic Retinal Eye Exam [facility] 12/03/2011 09440629 Colonoscopy Completed 05/06/2010 78592113 Mammogram Completed 05/06/2010 164909271 Bone Mineral Density Test [facility] 01/08/2009 878071966 Bone Mineral Density Test [facility] Medical Devices Description No Information Available Encounters Type Date Location Provider Dx Diagnosis Office Visit 04/30/2021 1:40p [facility] Jhoana Moss Pi ne, [employer] E11.21 Type 2 diabetes mellitus with diabetic [...] e not specified Office Visit 02/24/2021 1:00p [facility] Jhoana Triana, [facility] E11.21 Type 2 diabetes mellitus with diabetic [...] for other disorder Office Visit 12/26/2020 11:40a [facility] Jhoana Triana, [facility] R60.0 Localized edema N18.32 Chronic kidney disease, stag e 3b D63.1 Anemia in chronic kidney dis ease Assessments Date Code Description Provider 05/06/2021 D63.1 Anemia in chronic kidney disease Jhoana Duran [facility] 05/06/2021 D63.1 Anemia in chronic kidney disease Lab Schedule 04/30/2021 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 Jhoana Duran [facility] 04/30/2021 E11.40 Type 2 diabetes caprice itus with diabetic neuropathy, unspecified Jhoana Duran [facility] 04/30/2021 I12.9 Hypertensive chronic kidney disease with stage 1 through stage 4 chronic kidney disease, or unspecified chronic kidney disease Jhoana Duran [facility] 04/30/2021 N18.32 Chronic kidney disease, stage 3b Jhoana Duran [facility] 04/30/2021 D63.1 Anemia in chronic kidney disease Jhoana Duran [facility] 04/30/2021 E03.9 Hypothyroidism, unspecified Jhoana Duran [facility] 04/30/2021 I48.0 Paroxysmal atrial fibrillation A elyse Duran [facility] 04/30/2021 G47.33 Obstructive sleep apnea (adult) (pediatric) Jhoana Duran [facility] 04/30/2021 K21.9 Gastro-esophageal reflux disease without esophagitis Jhoana Duran [facility] 04/30/2021 K22.2 Esophageal obstruction Jhoana Triana, [facility] 04/30/2021 N39.0 Urinary tract infection, site no t specified Jhoana Duran [facility] 02/24/2021 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 Jhoana Duran [facility] 02/24/2021 I12.9 Hypertensive chronic kidney disease with stage 1 through stage 4 chronic kidney disease, or unspecified chronic kidney disease Jhoana Duran [facility] 02/24/2021 N18.32 Chronic kidney disease, stage 3b Jhoana Duran [facility] 02/24/2021 D63.1 Anemia in chronic kidney disease Jhoana Duran [facility] 02/24/2021 E03.9 Hypothyroidism, unspecified Jhoana Duran, [facility] 02/24/2021 I48.0 Paroxysmal atrial fibrillation A elyse Isa Leos [facility] 02/24/2021 G47.33 Obstructive sleep apnea (adult) (pediatric) Jhoana Duran [facility] 02/24/2021 E78.00 Pure hypercholesterolemia, unspe cified Jhoana Duran [facility] 02/24/2021 Z13.89 Encounter for screening for othe r disorder Jhoana Isa Leos [facility] 02/16/2021 I12.9 Hypertensive chronic kidney disease with stage 1 through stage 4 chronic kidney disease, or unspecified chronic kidney disease Jac Malone MD 02/16/2021 E11.40 Type 2 diabetes caprice itus with diabetic neuropathy, unspecified Jac Malone MD 02/16/2021 K21.9 Gastro-esophageal reflux disease without esophagitis Jac Malone MD 02/16/2021 E03.9 Hypothyroidism, unspecified Unique Malone MD 01/13/2021 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 Jac Malone MD 01/13/2021 I12.9 Hypertensive chronic kidney disease with stage 1 through stage 4 chronic kidney disease, or unspecified chronic kidney disease Jac Malone MD 01/13/2021 E03.9 Hypothyroidism, unspecified Unique mauricio Malone MD 12/26/2020 R60.0 Localized edema Jhoana Duran [facility] 12/26/2020 N18.32 Chronic kidney disease, stage 3b Jhoana Duran [facility] 12/26/2020 D63.1 Anemia in chronic kidney disease Jhoana Duran [facility] Plan of Treatment Future Appointment(s):* 08/27/2021 2:20 pm - SHANNON Walters at [facility] * 05/27/2021 2:20 pm - Bronson Malone DO at [facility] 04/30/2021 - SHANNON Walters* E11.21 Type 2 diabetes mellitus with diabetic nephropathy* Comments:* Last A1C at goal. * E11.40 Type 2 diabetes mellitus with diabetic neuropathy, unspecified* Comments:* continues on Lisinopril. * I12.9 Hypertensive chronic kidney disease with stage 1 through stage 4 chronic kidney disease, or unspecified chronic kidney disease* Comments:* blood pressure controlled on current treatment plan of amlodipine 10 mg daily, f urosemide 20 mg when necessary, lisinopril 20 mg daily and metoprolol succinate 25 mg daily * N18.32 Chronic kidney disease, stage 3b* Comments:* 2020 her GFR was 47 in the emergency room which is stable * D63.1 Anemia in chronic kidney disease* Comments:* CBC from April 23, 2021 reviewed and Hemoglobin and hematocrit are stable. Not quite low enough to need to be transfused. * E03.9 Hypothyroidism, unspecified* Comments:* Clinically euthyroid. * I48.0 Paroxysmal atrial fibrillation* Comments:* Clinically atrial fibrillation today. She is not on anticoagulation despite a high [id number] score of 5 due to anemia and suspected GI blood loss contributing to her anemia. * G47.33 Obstructive sleep apnea (adult) (pediatric)* Comments:* she has gotten a new CPAP machine and states that she is using it as much as possible and feels that it is benefiting her. * K21.9 Gastro-esophageal reflux disease without esophagitis* Comments:* continues on a PPI. She still has some break through symptoms. * K22.2 Esophageal obstruction* Comments:* Esophageal stricture seen evaluation during her recent hospitalization. Will refer to Dr. Oneal. * N39.0 Urinary tract infection, site not specified* New Medication:* Cefdinir 300 mg - 1 by mouth twice a day * Comments:* urine culture from 04/23 positive. Will treat with Cefdinir. Functional Status Description No Information Available Mental Status Description No Information Available Referrals Refer to Reason for Referral Status Appt Date Dar Oneal MD CONSULT FOR SCREENING EGD DX: [id number] Created [address] [facility] [address] [phone] [facility] CONSULT FOR RT KNEE PAIN Created [address] [place], [place] [address] [phone]
--- OUTSIDE RECORDS SUMMARY | 2021-06-22 11:08 | CCD | Continuity of Care Document ---
Author Author Uzma Walters Organization Unknown Address [address] [address] Phone [phone] Care Team Providers Care Safety Deposit Clerk Name Role Phone Basil Flores MD AUTM [phone] Nilsa Keene MD AUTM [phone] Jhoana Moncada ANP AUTM [phone] Robert Anthony MD AUTM [phone] Mary Rogers MD AUTM [phone] Problems Active Problems Provider Date Colostomy bag [...] Indications Ordering Provide r Date Amlodipine Besylate 10mg Tablets 1 by mouth every day Unknown 11/24/2020 Metoprolol Succinate ER 25mg Tablets ER 24HR 1 by mouth every day 90tabs JUSTICE WaltersP Albuterol Sulfate (2 .5mg/3ML) 0.083% Nebulizer use via aerosol neb four times a day as needed DX: J45.2 75ml JUSTICE WaltersP 05/22/2020 Ropinirole HCL 1mg Tablets take 1 tablet by mouth at 4 pm and at bedtime 180tabs G25.81 JUSTICE WaltersP 12/31/2019 Furosemide 20mg Tablets 1 by mouth every day prn 30tabs Albert Qureshi JR PA 020 Pantoprazole Sodium 40mg Tablets D R 1 by mouth every day 90tabs Jhoana Duran [facility] 06/20/2019 Oxycontin 20mg Tab ER 12H Abuse-De t 1 by mouth twice a day Unknown 04/09/2019 Lisinopril 20mg Tablets Take 1 tablet by mouth once daily 90tabs Davida Everett, DMITRY 09/19/2018 Colace 100mg Capsules 1 po bi d 120caps Jac Malone MD 04/07/2018 Nitrostat 0.4mg Tablets Sub one under tongue every 5 minutes x 3 as needed for chest discomfort 25tabs JUSTICE WaltersP 02/03/2018 Trazodone HCL 100mg Tablets take one tablet by mouth at bedtime 90tabs G47.00 SHANNON Walters 01/20 Magnesium 400mg Tablets 1 by mouth twice daily Suad Gama [facility] 12/31/2016 Vitamin B-12 1000mcg Tablets 1 by mouth every day 90tabs Sudha InterianoOJudy 06/11 Lyrica 100mg Capsules 1 by mouth 3x a day 90caps Sudha InterianoOJudy 06/11/2016 Lidoderm 12 hrs on 12 hrs off 90units Elia R. Van DeWall, D.OJudy 06/11/2016 Urinary Leg Bag Kit Medium/19Oz With Str aps Kit for nephrostomy tube collection bilateral. Hydronephr osis DX:N13.30 2unjudd Gama, SHANNON 04/12/2016 Synthroid 50mcg Tablets 1 by mouth every day 90tabs SHANNON Walters 02/28/2013 Wrist Support/Elastic/Onesize Mis c wrist support for left and right dx 719.43 2unSudha CarrilloO. 02/13/2013 Multivitamins Tablets 1 po q d [...] Provider Date Immunization Adminstration,1 Vaccine/Tox oid Injection JUSTICE WaltersP 10/18/2018 Therapeutic Injection Injection Davida Everett, DMITRY 07/11/2018 Depo-Medrol Injection Injection Elia Mendez D.O. 01/15/2015 Immunizations CPT Code Status Date Vaccine Lot # [id number] Given 10/18/2018 Adacel- Tetanus Diphtheria P ertussis [id number] Given 06/03/2006 Pneumovax 23 24731 Refused 11/10/2017 Zoster Vaccine [id number] Refused 11/10/2017 Tetanus/Diptheria(Td)Toxoids Preservative Free 25964 Refused 11/10/2017 Influenza Vaccin e Quadrivalent Preser/Antibiotic Free [place] Use [address]508 Refused 11/10/2017 Prevnar 13 Vital Signs Date Vital Result Comment 05/14/2021 2:48pm Heart Rate 91 /min Height 65 inches [...] Result H/L Range Note Complete Blood Count 05/14/2021 [facility] Chicken Raiser: [place] [address] [phone] WBC 5.1 x10*3/UL 4.1 - 10.9 RBC 3.42 x10*6/UL Low 4.20 - 6.30 Hemoglobin 10.1 g/dL Low 12.0 - 18.0 1 Hematocrit 29.8 % Low 37.0 - 51.0 [...] 2.0 - 7.8 Comprehensive Chem Profile 05/14/2021 [facility] charlene omalley Chicken Raiser: [place] [address] [phone] Glucose 106 mg/dL High 74 - 99 2 BUN 17 mg/dL 7 - 18 Creatinine [...] Low >60 GFR 48 mL/min Low >60 3 Complete Blood Count 05/06/2021 [facility] charlene sosa Chicken Raiser: [place] [address] [phone] WBC 4.1 x10*3/UL 4.1 - 10.9 4 RBC 3.63 x10*6/UL Low 4.20 - 6.30 [...] 2.0 - 7.8 Complete Blood Count 02/24/2021 [facility] Chicken Raiser: [place] [address] [phone] WBC 3.8 x10*3/UL Low 4.1 - 10.9 5 RBC 3.16 x10*6/UL Low 4.20 - 6.30 [...] 2.2 x10*3/UL 2.0 - 7.8 A1c 02/24/2021 [facility] , Chicken Raiser: [place] [address] [phone] Hba1c 6.5 % High <5.7 6 Est Avg Glucose 140 mg/dL High 60 - 110 Comprehensive Chem Profile 02/24/2021 [facility], Chicken Raiser: [place] [address] [phone] Glucose 121 mg/dL High 74 - 99 7 BUN 13 mg/dL 7 - 18 Creatinine [...] >60 GFR 48 mL/min Low >60 8 Lipid Profile 02/24/2021 [facility] , Chicken Raiser: [place] [address] [phone] Cholesterol 119 mg/dL Low 131 - 200 Triglycerides 92 mg/dL 30 - 150 HDL Cholesterol 50 mg/dL 35 - 60 LDL (Calculated) 51 CALC 50 - 159 Complete Blood Count 12/26/2020 [facility] Chicken Raiser: [place] [address] [phone] WBC 5.2 x10*3/UL 4.1 - 10.9 9 RBC 3.34 x10*6/UL Low 4.20 - 6.30 [...] 2.0 - 7.8 Comprehensive Chem Profile 12/26/2020 [facility] char[facility] Gimenez Chicken Raiser: [place] [address] [phone] Glucose 111 mg/dL High 74 - 99 10 BUN 17 mg/dL 7 - 18 Creatinine [...] Low >60 GFR 48 mL/min Low >60 11 1 NOTE: RESULT VERIFIED. 2 100-125 mg/dL PRE-DIABET ES/FASTING >126 mg/dL DIABETES/FASTING 3 CHRONIC KIDNEY DISEASE STAGI NG PER NKF STAGE I & II GFR >= 60 NORMAL TO MILDLY DECREASED STAGE III GFR 30-59 MODERATELY DECREASED STAGE IV GFR 15-29 SEVERELY DECREASED STAGE V GFR <15 VERY LITTLE GFR LEFT ESRD GFR <15 ON TRAFFIC CONTROL SUPERVISOR 4 NOTE: CBC VERIFIED 5 NOTE: CBC VERIFIED 6 Lab Result Notes: Pre-Diabetes 5.7 - 6.4 % Diabetes = or > 6.5% 7 100-125 mg/dL PRE-DIABET ES/FASTING >126 mg/dL DIABETES/FASTING 8 CHRONIC KIDNEY DISEASE STAGI NG PER NKF STAGE I & II GFR >= 60 NORMAL TO MILDLY DECREASED STAGE III GFR 30-59 MODERATELY DECREASED STAGE IV GFR 15-29 SEVERELY DECREASED STAGE V GFR <15 VERY LITTLE GFR LEFT ESRD GFR <15 ON TRAFFIC CONTROL SUPERVISOR 9 NOTE: CBC VERIFIED 10 100-125 mg/dL PRE-DIABET ES/FASTING >126 mg/dL DIABETES/FASTING 11 CHRONIC KIDNEY DISEASE STAGI NG PER NKF STAGE I & II GFR >= 60 NORMAL TO MILDLY DECREASED STAGE III GFR 30-59 MODERATELY DECREASED STAGE IV GFR 15-29 SEVERELY DECREASED STAGE V GFR <15 VERY LITTLE GFR LEFT ESRD GFR <15 ON TRAFFIC CONTROL SUPERVISOR Procedures Date Code Description Status 04/30/2021 78345 Office/Outpatient Established Mo d MDM 30-39 Min Completed 02/24/2021 07486 Office/Outpatient Established Mo d MDM 30-39 Min Completed 02/16/2021 99441 Complex Chronic Care MGMT Servic e Ea Addl 30 Min Completed 02/16/2021 70828 Complex Chronic Care Management SVC 1St 60 Min Completed 01/13/2021 10460 Complex Chronic Care MGMT Servic e Ea Addl 30 Min Completed 01/13/2021 90862 Complex Chronic Care Management SVC 1St 60 Min Completed 12/26/2020 63355 Office/Outpatient Established Mo d MDM 30-39 Min Completed 06/23/2020 [id number] Colonoscopy Completed 02/14/2020 [id number] Diabetic Foot Exam Completed 02/13/2020 [id number] Diabetic Foot Exam Completed 01/16/2020 11483187 Colonoscopy Completed 10/26/2019 569455713 Diabetic Retinal Eye Exam [facility] 03/22/2019 155518604 Diabetic Foot Exam Completed 02/08/2019 907560905 Diabetic Foot Exam Completed 05/12/2017 718136960 Diabetic Foot Exam Completed 07/30/2015 133802962 Diabetic Retinal Eye Exam [facility] 07/28/2015 564251333 Diabetic Foot Exam Completed 07/23/2015 393720553 Diabetic Foot Exam Completed 03/11/2014 54411175 Mammogram Completed 06/03/2012 628083847 Diabetic Retinal Eye Exam [facility] 12/03/2011 [id number] Colonoscopy Completed 05/06/2010 [id number] Mammogram Completed 05/06/2010 406418335 Bone Mineral Density Test [facility] 01/08/2009 [id number] Bone Mineral Density Test Comple [facility] Medical Devices Description No Information Available Encounters Type Date Location Provider Dx Diagnosis Office Visit 04/30/2021 1:40p [facility] Jhoana Sinha ne, ALARM MECHANIC E11.21 Type 2 diabetes mellitus with diabetic [...] e not specified Office Visit 02/24/2021 1:00p [facility] Jhoana Triana, [facility] E11.21 Type 2 diabetes mellitus with diabetic [...] for other disorder Office Visit 12/26/2020 11:40a [facility] 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 JUSTICE WaltersP 04/30/2021 E11.40 Type 2 diabetes caprice itus with diabetic neuropathy, unspecified JUSTICE WaltersP 04/30/2021 I12.9 Hypertensive chronic kidney disease with stage 1 through stage 4 chronic kidney disease, or unspecified chronic kidney disease JUSTICE WaltersP 04/30/2021 N18.32 Chronic kidney disease, stage 3b JUSTICE WaltersP 04/30/2021 D63.1 Anemia in chronic kidney disease SHANNON Walters 04/30/2021 E03.9 Hypothyroidism, unspecified JUSTICE WaltersP 04/30/2021 I48.0 Paroxysmal atrial fibrillation A SHANNON Dee 04/30/2021 G47.33 Obstructive sleep apnea (adult) (pediatric) JUSTICE WaltersP 04/30/2021 K21.9 Gastro-esophageal reflux disease without esophagitis Jhoana Duran, [facility] 04/30/2021 K22.2 Esophageal obstruction Jhoana Isa Mihir geller, [facility] 04/30/2021 N39.0 Urinary tract infection, site no t specified Jhoana Duran, [facility] 02/24/2021 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 Jhoana Duran [facility] 02/24/2021 I12.9 Hypertensive chronic kidney disease with stage 1 through stage 4 chronic kidney disease, or unspecified chronic kidney disease Jhoana Duran, [facility] 02/24/2021 N18.32 Chronic kidney disease, stage 3b Jhoana Duran [facility] 02/24/2021 D63.1 Anemia in chronic kidney disease Jhoana Duran [facility] 02/24/2021 E03.9 Hypothyroidism, unspecified Jhoana Duran, [facility] 02/24/2021 I48.0 Paroxysmal atrial fibrillation A elyse Isa Leos [facility] 02/24/2021 G47.33 Obstructive sleep apnea (adult) (pediatric) Jhoana Duran [facility] 02/24/2021 E78.00 Pure hypercholesterolemia, unspe cified Jhoana Duran [facility] 02/24/2021 Z13.89 Encounter for screening for othe r disorder Jhoana Isa Leos [facility] 02/16/2021 I12.9 Hypertensive chronic kidney disease with [...] 08/27/2021 2:20 pm - SHANNON Walters at [facility] * 05/27/2021 2:20 pm - Bronson Malone DO at [facility] Functional Status Description No Information Available Mental Status Description No Information Available Referrals Refer to Dr Reason for Referral Status Appt Date Dar Oneal MD CONSULT FOR SCREENING EGD DX: DYSPHAG [place] Patient Notified 06/09/2021 [address] [facility] [address] [phone] [facility] CONSULT FOR RT KNEE PAIN Created [address] [place] [address] [phone]
--- OUTSIDE RECORDS SUMMARY | 2021-06-22 11:08 | CCD | Continuity of Care Document ---
Author Author Uzma Walters Organization Unknown Address [address] [address] Phone [phone] Care Team Providers Care Funeral Director And Embalmer Name Role Phone Basil Flores MD AUTM [phone] Nilsa Keene MD AUTM [phone] Jhoana Moncada ANP AUTM [phone] Robert Anthony MD AUTM [phone] Mary Rogers MD AUTM [phone] Problems Active Problems Provider Date Colostomy bag [...] by mouth every day 90tabs Jhoana Duran [facility] 06/20/2019 Oxycontin 20mg Tab ER 12H [...] 1 by mouth twice daily Suad Gama [facility] 12/31/2016 Vitamin B-12 1000mcg Tablets 1 by [...] Davida Everett, DMITRY 07/11/2018 Depo-Medrol Injection Injection Eila Mendez D.O. 01/15/2015 Immunizations CPT Code Status Date Vaccine Lot # [id number] Given 10/18/2018 Adacel- Tetanus Diphtheria P ertussis [id number] 15732 Given 06/03/2006 Pneumovax 23 36464 Refused 11/10/2017 Zoster Vaccine 09565 Refused 11/10/2017 Tetanus/Diptheria(Td)Toxoids Preservative Free 26716 Refused 11/10/2017 Influenza Vaccin e Quadrivalent Preser/Antibiotic Free Im Use 63566 Refused 11/10/2017 Prevnar 13 Vital Signs Date [...] H/L Range Note Complete Blood Count 05/14/2021 [facility] Carpet Repairer: [place] [address] [phone] WBC 5.1 x10*3/UL 4.1 - 10.9 RBC [...] Neut # 3.0 x10*3/UL 2.0 - 7.8 Complete Blood Count 05/06/2021 [facility] Carpet Repairer: [place] [address] [phone] WBC 4.1 x10*3/UL 4.1 - 10.9 2 RBC 3.63 x10*6/UL Low 4.20 - 6.30 [...] 2.0 - 7.8 Complete Blood Count 02/24/2021 [facility] Carpet Repairer: [place] [address] [phone] WBC 3.8 x10*3/UL Low 4.1 - 10.9 3 RBC 3.16 x10*6/UL Low 4.20 - 6.30 [...] 2.2 x10*3/UL 2.0 - 7.8 A1c 02/24/2021 [facility] , Carpet Repairer: [place] [address] [phone] Hba1c 6.5 % High <5.7 4 Est Avg Glucose 140 mg/dL High 60 - 110 Comprehensive Chem Profile 02/24/2021 [facility], Carpet Repairer: [place] [address] [phone] Glucose 121 mg/dL High 74 - 99 5 BUN 13 mg/dL 7 - 18 Creatinine [...] Low >60 GFR 48 mL/min Low >60 6 Lipid Profile 02/24/2021 [facility] , Carpet Repairer: [place] [address] [phone] Cholesterol 119 mg/dL Low 131 - 200 Triglycerides 92 mg/dL 30 - 150 HDL Cholesterol 50 mg/dL 35 - 60 LDL (Calculated) 51 CALC 50 - 159 Complete Blood Count 12/26/2020 [facility] Carpet Repairer: [place] [address] [phone] WBC 5.2 x10*3/UL 4.1 - 10.9 7 RBC 3.34 x10*6/UL Low 4.20 - 6.30 [...] 2.0 - 7.8 Comprehensive Chem Profile 12/26/2020 [facility] char[facility] Gimenez Carpet Repairer: [place] [address] [phone] Glucose 111 mg/dL High 74 - 99 8 BUN 17 mg/dL 7 - 18 Creatinine [...] Low >60 GFR 48 mL/min Low >60 9 1 NOTE: RESULT VERIFIED. 2 NOTE: CBC VERIFIED 3 NOTE: CBC VERIFIED 4 Lab Result Notes: Pre-Diabetes 5.7 - 6.4 % Diabetes = or > 6.5% 5 100-125 mg/dL PRE-DIABET ES/FASTING >126 mg/dL DIABETES/FASTING 6 CHRONIC KIDNEY DISEASE STAGI NG PER NKF STAGE I & II GFR >= 60 NORMAL TO MILDLY DECREASED STAGE III GFR 30-59 MODERATELY DECREASED STAGE IV GFR 15-29 SEVERELY DECREASED STAGE V GFR <15 VERY LITTLE GFR LEFT ESRD GFR <15 ON SUGARCANE PLANTER 7 NOTE: CBC VERIFIED 8 100-125 mg/dL PRE-DIABET ES/FASTING >126 mg/dL DIABETES/FASTING 9 CHRONIC KIDNEY DISEASE STAGI NG PER NKF STAGE I & II GFR >= 60 NORMAL TO MILDLY DECREASED STAGE III GFR 30-59 MODERATELY DECREASED STAGE IV GFR 15-29 SEVERELY DECREASED STAGE V GFR <15 VERY LITTLE GFR LEFT ESRD GFR <15 ON SUGARCANE PLANTER Procedures Date Code Description Status 04/30/2021 15357 Office/Outpatient Established Mo d MDM 30-39 Min Completed 02/24/2021 04323 Office/Outpatient Established Mo d MDM 30-39 Min Completed 02/16/2021 47834 Complex Chronic Care MGMT Servic e Ea Addl 30 Min Completed 02/16/2021 02016 Complex Chronic Care Management SVC 1St 60 Min Completed 01/13/2021 92410 Complex Chronic Care MGMT Servic e Ea Addl 30 Min Completed 01/13/2021 81225 Complex Chronic Care Management SVC 1St 60 Min Completed 12/26/2020 52829 Office/Outpatient Established Mo d MDM 30-39 Min Completed 06/23/2020 [id number] Colonoscopy Completed 02/14/2020 [id number] Diabetic Foot Exam Completed 02/13/2020 955732009 Diabetic Foot Exam Completed 01/16/2020 27644049 Colonoscopy Completed 10/26/2019 818434355 Diabetic Retinal Eye Exam [facility]ple [facility] 03/22/2019 762907464 Diabetic Foot Exam Completed 02/08/2019 765034102 Diabetic Foot Exam Completed 05/12/2017 775035481 Diabetic Foot Exam Completed 07/30/2015 [id number] Diabetic Retinal Eye Exam Comple [facility] 07/28/2015 501051672 Diabetic Foot Exam Completed 07/23/2015 [id number] Diabetic Foot Exam Completed 03/11/2014 [id number] Mammogram Completed 06/03/2012 557601425 Diabetic Retinal Eye Exam Comple [facility] 12/03/2011 [id number] Colonoscopy Completed 05/06/2010 [id number] Mammogram Completed 05/06/2010 [id number] Bone Mineral Density Test Comple [facility] 01/08/2009 [id number] Bone Mineral Density Test Comple [facility] Medical Devices Description No Information Available Encounters Type Date Location Provider Dx Diagnosis Office Visit 04/30/2021 1:40p [facility] Jhoana Triana, FIELD MANAGER E11.21 Type 2 diabetes mellitus with diabetic [...] e not specified Office Visit 02/24/2021 1:00p [facility] 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 Jhoana Isa [place], [facility] 04/30/2021 E11.40 Type 2 diabetes caprice itus with diabetic neuropathy, unspecified Jhoana Isa [place], [facility] 04/30/2021 I12.9 Hypertensive chronic kidney disease with stage 1 through stage 4 chronic kidney disease, or unspecified chronic kidney disease Jhoana Isa [place], [facility] 04/30/2021 N18.32 Chronic kidney disease, stage 3b Jhoana Isa [place], [facility] 04/30/2021 D63.1 Anemia in chronic kidney disease Jhoana Isa [place], [facility] 04/30/2021 E03.9 Hypothyroidism, unspecified Jhoana Isa [place], [facility] 04/30/2021 I48.0 Paroxysmal atrial fibrillation A nn Le [place], [facility] 04/30/2021 G47.33 Obstructive sleep apnea (adult) (pediatric) Jhoana Duran, [facility] 04/30/2021 K21.9 Gastro-esophageal reflux disease without esophagitis Jhoana Duran, [facility] 04/30/2021 K22.2 Esophageal obstruction Jhoana Triana, [facility] 04/30/2021 N39.0 Urinary tract infection, site no t specified Jhoana Duran, [facility] 02/24/2021 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 Jhoana Duran, [facility] 02/24/2021 I12.9 Hypertensive chronic kidney disease with stage 1 through stage 4 chronic kidney disease, or unspecified chronic kidney disease Jhoaan Duran, [facility] 02/24/2021 N18.32 Chronic kidney disease, stage 3b Jhoana Isa Le[place], [facility] 02/24/2021 D63.1 Anemia in chronic kidney disease Jhoana Isa [place], [facility] 02/24/2021 E03.9 Hypothyroidism, unspecified Jhoana Isa [place], [facility] 02/24/2021 I48.0 Paroxysmal atrial fibrillation A nn Le [place], [facility] 02/24/2021 G47.33 Obstructive sleep apnea (adult) (pediatric) Jhoana Moss [place], [facility] 02/24/2021 E78.00 Pure hypercholesterolemia, unspe cified Jhoana Duran, [facility] 02/24/2021 Z13.89 Encounter for screening for othe r disorder Jhoana Duran, [facility] 02/16/2021 I12.9 Hypertensive chronic kidney disease [...] 08/27/2021 2:20 pm - SHANNON Walters at [facility] * 05/27/2021 2:20 pm - Bronson Malone DO at [facility] Functional Status Description No Information Available Mental Status Description No Information Available Referrals Refer to Dr Reason for Referral Status Appt Date Dar Oneal MD CONSULT FOR SCREENING EGD DX: DYSPHAG [place] Patient Notified 06/09/2021 [address] [facility] [address] [phone] [facility] CONSULT FOR RT KNEE PAIN Created [address] [place] [address] [phone]
--- OUTSIDE RECORDS SUMMARY | 2021-06-22 11:08 | CCD | Continuity of Care Document ---
Author Author Uzma Walters Organization Unknown Address [address] [address] Phone [phone] Care Team Providers Care Assembler Product Name Role Phone Basil Flores MD AUTM [phone] Nilsa Keene MD AUTM [phone] Jhoana Moncada ANP AUTM [phone] Robert Anthony MD AUTM [phone] Mary Rogers MD AUTM [phone] Problems Active Problems Provider Date Colostomy bag [...] twice a day 20caps N39.0 Jhoana Duran [facility] 04/30/2021 Amlodipine Besylate 10mg Tablets 1 by mouth every day Unknown 11/24/2020 Metoprolol Succinate ER 25mg Tablets ER 24HR 1 by mouth every day 90tabs Jhoana Duran [facility] Albuterol Sulfate (2 .5mg/3ML) 0.083% Nebulizer use via aerosol neb four times a day as needed DX: J45.2 75ml Jhoana Duran [facility] 05/22/2020 Ropinirole HCL 1mg Tablets take 1 tablet by mouth at 4 pm and at bedtime 180tabs G25.81 Jhoana Duran [facility] 12/31/2019 Furosemide 20mg Tablets 1 by mouth every day prn 30tabs CAREY Oneill JR 020 Pantoprazole Sodium 40mg Tablets D R 1 by mouth every day 90tabs Jhoana Duran [facility] 06/20/2019 Oxycontin 20mg Tab ER 12H [...] needed for chest discomfort 25tabs Jhoana Duran [facility] 02/03/2018 Trazodone HCL 100mg Tablets take one tablet by mouth at bedtime 90tabs G47.00 JUSTICE WaltersP 01/20 Magnesium 400mg Tablets 1 by mouth twice daily Suad Gama [facility] 12/31/2016 Lyrica 100mg Capsules 1 by mouth 3x a day 90caps Elia Mendez D.O. 06/11/2016 Vitamin B-12 1000mcg Tablets 1 by mouth every day 90tabs Elia Mendez D.O. 06/11 Lidoderm 12 hrs on 12 hrs off 90unjudd Perez D.O. 06/11/2016 Urinary Leg Bag Kit Medium/19Oz With Str aps Kit for nephrostomy tube collection bilateral. Hydronephr osis DX:N13.30 2unjudd Borjas [place], SHANNON 04/12/2016 Synthroid 50mcg Tablets 1 by [...] Daily Ulceration Bottom Of Ostomy 30units Elia Mendez D.O. 12/01/2009 Pravastatin Sodium 20mg Tablets [...] CPT Code Status Date Vaccine Lot # 28416 Given 10/18/2018 Adacel- Tetanus Diphtheria P ertussis [id number] Given 06/03/2006 Pneumovax 23 52122 Refused 11/10/2017 Zoster Vaccine 60895 Refused 11/10/2017 Tetanus/Diptheria(Td)Toxoids Preservative Free 32552 Refused 11/10/2017 Influenza Vaccin e Quadrivalent Preser/Antibiotic Free [place] Use [address]242 Refused 11/10/2017 Prevnar 13 Vital Signs Date [...] H/L Range Note Complete Blood Count 05/14/2021 [facility] [employer] Intelligence Officer ian pc Choir Member: [place] [address] [phone] WBC 5.1 x10*3/UL 4.1 - 10.9 RBC [...] 2.0 - 7.8 Complete Blood Count 05/06/2021 [facility] [employer] Officer charlene sosa Choir Member: Dr Jac Malone [place], [place] [id number] [phone] WBC 4.1 x10*3/UL 4.1 - 10.9 2 [...] 2.0 - 7.8 Complete Blood Count 02/24/2021 [facility] [employer] Officer ian pc Choir Member: [place] [address] [phone] WBC 3.8 x10*3/UL Low 4.1 - 10.9 [...] 2.2 x10*3/UL 2.0 - 7.8 A1c 02/24/2021 [facility] , Choir Member: [place] [address] [phone] Hba1c 6.5 % High <5.7 4 Est Avg Glucose 140 mg/dL High 60 - 110 Comprehensive Chem Profile 02/24/2021 [facility], Choir Member: [place] [address] [phone] Glucose 121 mg/dL High 74 - 99 [...] mL/min Low >60 6 Lipid Profile 02/24/2021 [facility] , Choir Member: [place] [address] [phone] Cholesterol 119 mg/dL Low 131 - 200 Triglycerides 92 mg/dL 30 - 150 HDL Cholesterol 50 mg/dL 35 - 60 LDL (Calculated) 51 CALC 50 - 159 Complete Blood Count 12/26/2020 [facility] [employer] Officer ian pc Choir Member: [place] [address] [phone] WBC 5.2 x10*3/UL 4.1 - 10.9 7 [...] 2.0 - 7.8 Comprehensive Chem Profile 12/26/2020 [facility] charlene omalley Choir Member: [place] [address] [phone] Glucose 111 mg/dL High 74 - 99 [...] LITTLE GFR LEFT ESRD GFR <15 ON BATTERY CHARGER 7 NOTE: CBC VERIFIED 8 100-125 mg/dL PRE-DIABET ES/FASTING >126 mg/dL DIABETES/FASTING 9 CHRONIC KIDNEY DISEASE STAGI NG PER NKF STAGE I & II GFR >= 60 NORMAL TO MILDLY DECREASED STAGE III GFR 30-59 MODERATELY DECREASED STAGE IV GFR 15-29 SEVERELY DECREASED STAGE V GFR <15 VERY LITTLE GFR LEFT ESRD GFR <15 ON BATTERY CHARGER Procedures Date Code Description Status 04/30/2021 40544 Office/Outpatient Established Mo d MDM 30-39 Min Completed 02/24/2021 78586 Office/Outpatient Established Mo d MDM 30-39 Min Completed 02/16/2021 13522 Complex Chronic Care MGMT Servic e Ea Addl 30 Min Completed 02/16/2021 61961 Complex Chronic Care Management SVC 1St 60 Min Completed 01/13/2021 36947 Complex Chronic Care MGMT Servic e Ea Addl 30 Min Completed 01/13/2021 95417 Complex Chronic Care Management SVC 1St 60 Min Completed 12/26/2020 77079 Office/Outpatient Established Mo d MDM 30-39 Min Completed 06/23/2020 [id number] Colonoscopy Completed 02/14/2020 [id number] Diabetic Foot Exam Completed 02/13/2020 522455879 Diabetic Foot Exam Completed 01/16/2020 [id number] Colonoscopy Completed 10/26/2019 795548133 Diabetic Retinal Eye Exam [facility] 03/22/2019 685535025 Diabetic Foot Exam Completed 02/08/2019 893698503 Diabetic Foot Exam Completed 05/12/2017 805924801 Diabetic Foot Exam Completed 07/30/2015 460098403 Diabetic Retinal Eye Exam [facility] 07/28/2015 375566225 Diabetic Foot Exam Completed 07/23/2015 561851128 Diabetic Foot Exam Completed 03/11/2014 42190325 Mammogram Completed 06/03/2012 904873807 Diabetic Retinal Eye Exam [facility] 12/03/2011 15151886 Colonoscopy Completed 05/06/2010 00371537 Mammogram Completed 05/06/2010 037549072 Bone Mineral Density Test [facility] 01/08/2009 239931855 Bone Mineral Density Test Com[facility] Medical Devices Description No Information Available Encounters Type Date Location Provider Dx Diagnosis Office Visit 04/30/2021 1:40p [facility] Jhoana Triana, [employer] E11.21 Type 2 diabetes mellitus with diabetic [...] e not specified Office Visit 02/24/2021 1:00p [facility] Jhoana Triana, [employer] E11.21 Type 2 diabetes mellitus with diabetic [...] for other disorder Office Visit 12/26/2020 11:40a [facility] 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 Jhoana Duran, [facility] 04/30/2021 E11.40 Type 2 diabetes caprice itus with diabetic neuropathy, unspecified Jhoana Isa Leos, [facility] 04/30/2021 I12.9 Hypertensive chronic kidney disease with stage 1 through stage 4 chronic kidney disease, or unspecified chronic kidney disease Jhoana Duran, [facility] 04/30/2021 N18.32 Chronic kidney disease, stage 3b Jhoana Isa Leos, [facility] 04/30/2021 D63.1 Anemia in chronic kidney disease Jhoana Isa Leos, [facility] 04/30/2021 E03.9 Hypothyroidism, unspecified Jhoana Isa Leos, [facility] 04/30/2021 I48.0 Paroxysmal atrial fibrillation A nn Isa Robertson, [facility] 04/30/2021 G47.33 Obstructive sleep apnea (adult) (pediatric) Jhoana Duran, [facility] 04/30/2021 K21.9 Gastro-esophageal reflux disease without esophagitis Jhoana Duran, [facility] 04/30/2021 K22.2 Esophageal obstruction Jhoana Triana, [facility] 04/30/2021 N39.0 Urinary tract infection, site no t specified Jhoana Duran, [facility] 02/24/2021 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 Jhoana Duran, [facility] 02/24/2021 I12.9 Hypertensive chronic kidney disease with stage 1 through stage 4 chronic kidney disease, or unspecified chronic kidney disease Jhoana Duran, [facility] 02/24/2021 N18.32 Chronic kidney disease, stage 3b Jhoana Duran, [facility] 02/24/2021 D63.1 Anemia in chronic kidney disease Jhoana Duran, [facility] 02/24/2021 E03.9 Hypothyroidism, unspecified Jhoana Isa Leos, [facility] 02/24/2021 I48.0 Paroxysmal atrial fibrillation A nn Isa Robertson, [facility] 02/24/2021 G47.33 Obstructive sleep apnea (adult) (pediatric) Jhoana Duran, [facility] 02/24/2021 E78.00 Pure hypercholesterolemia, unspe cified Jhoana Duran, [facility] 02/24/2021 Z13.89 Encounter for screening for othe r disorder Jhoana Duran, [facility] 02/16/2021 I12.9 Hypertensive chronic kidney disease [...] 08/27/2021 2:20 pm - SHANNON Walters at [facility] * 05/27/2021 2:20 pm - Bronson Malone DO at [facility] Functional Status Description No Information Available Mental Status Description No Information Available Referrals Refer to Dr Reason for Referral Status Appt Date Dar Oneal MD CONSULT FOR SCREENING EGD DX: DYSPHAG IA Patient Notified 06/09/2021 [address] [facility] [address] [phone] [facility] CONSULT FOR RT KNEE PAIN Created [address] [place] [address] [phone]
--- OUTSIDE RECORDS SUMMARY | 2021-06-22 11:08 | CCD | Continuity of Care Document ---
Author Organization Unknown Address Unknown Phone Unavailable Care Team Providers Care Entry Level Receptionist Name Role Phone Basil Flores MD AUTM [phone] Nilsa Keene MD AUTM [phone] Jhoana Moncada ANP AUTM [phone] Robert Anthony MD AUTM [phone] Mary Rogers MD AUTM [phone] Problems Active Problems Provider Date Colostomy bag [...] by mouth every day 90tabs Jhoana Duran [facility] Albuterol Sulfate (2 .5mg/3ML) 0.083% Nebulizer use via aerosol neb four times a day as needed DX: J45.2 75ml Jhoana Duran [facility] 05/22/2020 Ropinirole HCL 1mg Tablets take 1 tablet by mouth at 4 pm and at bedtime 180tabs G25.81 Jhoana Duran [facility] 12/31/2019 Furosemide 20mg Tablets 1 by mouth every day prn 30tabs Albert Qureshi JR PA 020 Pantoprazole Sodium 40mg Tablets D R 1 by mouth every day 90tabs Jhoana Duran [facility] 06/20/2019 Oxycontin 20mg Tab ER 12H [...] needed for chest discomfort 25tabs Jhoana Duran [facility] 02/03/2018 Trazodone HCL 100mg Tablets take one tablet by mouth at bedtime 90tabs G47.00 Jhoana Duran [facility] 01/20 Magnesium 400mg Tablets 1 by [...] CPT Code Status Date Vaccine Lot # 78052 Given 10/18/2018 Adacel- Tetanus Diphtheria P ertussis [id number] Given 06/03/2006 Pneumovax 23 34778 Refused 11/10/2017 Zoster Vaccine 99986 Refused 11/10/2017 Tetanus/Diptheria(Td)Toxoids Preservative Free 30337 Refused 11/10/2017 Influenza Vaccin e Quadrivalent Preser/Antibiotic Free Im Use 60716 Refused 11/10/2017 Prevnar 13 Vital Signs Date [...] H/L Range Note Laboratory test finding 05/22/2021 [facility] [address] [place], [place] [id number] [phone] Coronavirus 2019 Nasopharygeal <pending> Sars Covid-19 Amplification NEGATIVE Normal Negative 1 Istat Chem8+ Panel 05/21/2021 [facility] [address] [place] [address] [phone] iSTAT HCT 30.0 % Low 38.0-51.0 iSTAT Glucose 104 mg/dL Normal 70-105 iSTAT Sodium 139 mEq/L Normal 136-145 iSTAT Potassium 4.1 mEq/L Normal 3.5-5.1 iSTAT CA++ 4.5 mg/dL Normal 4.5-5.3 iSTAT Chloride 107 mEq/L Normal 98-109 iSTAT Co2 20.0 MM/L Low 23.0-27.0 iSTAT BUN 20 mg/dL Normal 8-26 iSTAT Creatinine 1.6 mg/dL High 0.6-1.3 Laboratory test finding 05/21/2021 [facility] [address] [place], [place] [id number] [phone] Lactic Acid Sepsis Protocol 0.9 mmol/L Normal 0.4- 2.0 2 Complete Blood Count 05/14/2021 [employer] Worker charlene sosa Cable Splicer Helper: [place] [address] [phone] WBC 5.1 x10*3/UL 4.1 - 10.9 RBC [...] 2.0 - 7.8 Comprehensive Chem Profile 05/14/2021 [facility] charlene Gimenez Cable Splicer Helper: [place] [address] [phone] Glucose 106 mg/dL High 74 - 99 [...] Low >60 5 Complete Blood Count 05/06/2021 [employer] Worker s, pc Cable Splicer Helper: Dr Jac Malone [place] [id number] [phone] WBC 4.1 x10*3/UL 4.1 - 10.9 6 [...] 2.0 - 7.8 Complete Blood Count 02/24/2021 [employer] Worker ian pc Cable Splicer Helper: Dr Jac Malone [place], [place] [id number] [phone] WBC 3.8 x10*3/UL Low 4.1 - 10.9 [...] 2.2 x10*3/UL 2.0 - 7.8 A1c 02/24/2021 [facility] , Cable Splicer Helper: [place] [address] [phone] Hba1c 6.5 % High <5.7 8 Est Avg Glucose 140 mg/dL High 60 - 110 Comprehensive Chem Profile 02/24/2021 [facility], Cable Splicer Helper: [place] [address] [phone] Glucose 121 mg/dL High 74 - 99 [...] mL/min Low >60 10 Lipid Profile 02/24/2021 [facility] , Cable Splicer Helper: [place] [address] [phone] Cholesterol 119 mg/dL Low 131 - 200 Triglycerides 92 mg/dL 30 - 150 HDL Cholesterol 50 mg/dL 35 - 60 LDL (Calculated) 51 CALC 50 - 159 Complete Blood Count 12/26/2020 [employer] Worker charlene sosa Cable Splicer Helper: [place] [address] [phone] WBC 5.2 x10*3/UL 4.1 - 10.9 11 [...] 2.0 - 7.8 Comprehensive Chem Profile 12/26/2020 [facility] charlene Gimenez Cable Splicer Helper: [place] [address] [phone] Glucose 111 mg/dL High 74 - 99 [...] pathogens. DISCLAIMER: Testing was performed using the [employer] SARS-CoV-2 test. This test was developed and its performance characteristics determined by [employer]. This test has not been FDA cleared [...] LITTLE GFR LEFT ESRD GFR <15 ON METAL BUILDINGS ASSEMBLER 6 NOTE: CBC VERIFIED 7 NOTE: CBC [...] LITTLE GFR LEFT ESRD GFR <15 ON METAL BUILDINGS ASSEMBLER 11 NOTE: CBC VERIFIED 12 100-125 mg/dL PRE-DIABET ES/FASTING >126 mg/dL DIABETES/FASTING 13 CHRONIC KIDNEY DISEASE STAGI NG PER NKF STAGE I & II GFR >= 60 NORMAL TO MILDLY DECREASED STAGE III GFR 30-59 MODERATELY DECREASED STAGE IV GFR 15-29 SEVERELY DECREASED STAGE V GFR <15 VERY LITTLE GFR LEFT ESRD GFR <15 ON METAL BUILDINGS ASSEMBLER Procedures Date Code Description Status 05/14/2021 62809 Office/Outpatient Established Mo d MDM 30-39 Min Completed 04/30/2021 29108 Office/Outpatient Established Mo d MDM 30-39 Min Completed 04/20/2021 75783 Complex Chronic Care MGMT Servic e Ea Addl 30 Min Completed 04/20/2021 99458 Complex Chronic Care Management SVC 1St 60 Min Completed 02/24/2021 91164 Office/Outpatient Established Mo d MDM 30-39 Min Completed 02/16/2021 92004 Complex Chronic Care MGMT Servic e Ea Addl 30 Min Completed 02/16/2021 28370 Complex Chronic Care Management SVC 1St 60 Min Completed 01/13/2021 93140 Complex Chronic Care MGMT Servic e Ea Addl 30 Min Completed 01/13/2021 87594 Complex Chronic Care Management SVC 1St 60 Min Completed 12/26/2020 93085 Office/Outpatient Established Mo d MDM 30-39 Min Completed 06/23/2020 [id number] Colonoscopy Completed 02/14/2020 310093717 Diabetic Foot Exam Completed 02/13/2020 750587528 Diabetic Foot Exam Completed 01/16/2020 44639610 Colonoscopy Completed 10/26/2019 705634707 Diabetic Retinal Eye Exam [facility] 03/22/2019 766698495 Diabetic Foot Exam Completed 02/08/2019 683605174 Diabetic Foot Exam Completed 05/12/2017 733108064 Diabetic Foot Exam Completed 07/30/2015 206535265 Diabetic Retinal Eye Exam [facility] 07/28/2015 122163061 Diabetic Foot Exam Completed 07/23/2015 846341136 Diabetic Foot Exam Completed 03/11/2014 91974414 Mammogram Completed 06/03/2012 003607962 Diabetic Retinal Eye Exam [facility] 12/03/2011 19466364 Colonoscopy Completed 05/06/2010 87200730 Mammogram Completed 05/06/2010 406877209 Bone Mineral Density Test [facility] 01/08/2009 396306169 Bone Mineral Density Test [facility] Medical Devices Description No Information Available Encounters Type Date Location Provider Dx Diagnosis Office Visit 05/14/2021 2:40p [facility] 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 N18.32 Chronic kidney disease, stag e 3b R93.5 Abn findings on dx imaging o f abd regions, inc retroperiton Office Visit 04/30/2021 1:[facility]p [facility], FARM MANAGEMENT TEACHER E11.21 Type 2 diabetes mellitus with [...] e not specified Office Visit 02/24/2021 1:00p [facility], FARM MANAGEMENT TEACHER E11.21 Type 2 diabetes mellitus with [...] for other disorder Office Visit 12/26/2020 11:40a [facility], FARM MANAGEMENT TEACHER R60.0 Localized edema N18.32 Chronic kidney disease, stag e 3b D63.1 Anemia in chronic kidney dis ease Assessments Date Code Description Provider 05/14/2021 K94.01 Colostomy hemorrhage SHANNON Walters 05/14/2021 R10.31 Right lower quadrant pain SHANNON Walters 05/14/2021 D50.0 Iron deficiency anemia secondary to blood loss (chronic) Jhoana Duran, [facility] 05/14/2021 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 Jhoana Duran, [facility] 05/14/2021 N18.32 Chronic kidney disease, stage 3b Jhoana Duran, [facility] 05/14/2021 R93.5 Abnormal findings on diagnostic imaging of other abdominal regions, including retroperitoneum Jhoana Duran [facility] 05/06/2021 D63.1 Anemia in chronic kidney disease Jhoana Duran, [facility] 05/06/2021 D63.1 Anemia in chronic kidney disease Lab Schedule 04/30/2021 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 Jhoana Isa Leos, [facility] 04/30/2021 E11.40 Type 2 diabetes caprice itus with diabetic neuropathy, unspecified Jhoana Isa Leos [facility] 04/30/2021 I12.9 Hypertensive chronic kidney disease with stage 1 through stage 4 chronic kidney disease, or unspecified chronic kidney disease Jhoana Isa Dafne [facility] 04/30/2021 N18.32 Chronic kidney disease, stage 3b Jhoana Isa Leos, [facility] 04/30/2021 D63.1 Anemia in chronic kidney disease Jhoana Duran, [facility] 04/30/2021 E03.9 Hypothyroidism, unspecified Jhoana Isa Leos, [facility] 04/30/2021 I48.0 Paroxysmal atrial fibrillation A elyse Isa Leos, [facility] 04/30/2021 G47.33 Obstructive sleep apnea (adult) (pediatric) Jhoana Isa Leos, [facility] 04/30/2021 K21.9 Gastro-esophageal reflux disease without esophagitis Jhoana Isa Dafne [facility] 04/30/2021 K22.2 Esophageal obstruction Jhoana Triana, [facility] 04/30/2021 N39.0 Urinary tract infection, site no t specified Jhoana Isa Dafne [facility] 04/20/2021 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 Jac Malone MD 04/20/2021 K21.9 Gastro-esophageal reflux disease without esophagitis Jac Malone MD 04/20/2021 N18.32 Chronic kidney disease, stage 3b Jac Malone MD 02/24/2021 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 Jhoana Duran [facility] 02/24/2021 I12.9 Hypertensive chronic kidney disease with stage 1 through stage 4 chronic kidney disease, or unspecified chronic kidney disease Jhoana Duran, [facility] 02/24/2021 N18.32 Chronic kidney disease, stage 3b Jhoana Isa Dafne [facility] 02/24/2021 D63.1 Anemia in chronic kidney disease Jhoana Duran [facility] 02/24/2021 E03.9 Hypothyroidism, unspecified Jhoana Isa Leos, [facility] 02/24/2021 I48.0 Paroxysmal atrial fibrillation A elyse Isa Leos, [facility] 02/24/2021 G47.33 Obstructive sleep apnea (adult) (pediatric) Jhoana Moss Dafne, [facility] 02/24/2021 E78.00 Pure hypercholesterolemia, unspe cified Jhoana Moss Dafne [facility] 02/24/2021 Z13.89 Encounter for screening for othe r disorder Jhoana Duran [facility] 02/16/2021 I12.9 Hypertensive chronic kidney disease [...] MD 12/26/2020 R60.0 Localized edema Jhoana Duran [facility] 12/26/2020 N18.32 Chronic kidney disease, stage 3b Jhoana Duran [facility] 12/26/2020 D63.1 Anemia in chronic kidney disease SHANNON Walters Plan of Treatment Future Appointment(s):* 08/27/2021 2:20 pm - SHANNON Walters at [facility] * 05/27/2021 2:20 pm - Bronson Malone DO at [facility] 05/14/2021 - SHANNON Walters* K94.01 [...] retroperitoneum* Comments:* The CT scan she had [facility] on April 23 showed a question [...] DX: DYSPHAG [place] Patient Notified 06/09/2021 [address] [facility] [address] [phone] [facility] CONSULT FOR RT KNEE PAIN Created [address] [place] [address] [phone]
--- OUTSIDE RECORDS SUMMARY | 2021-06-22 11:08 | CCD | Continuity of Care Document ---
Author Author Uzma Walters Organization Unknown Address [phone] [address] Phone [phone] Care Team Providers Care Cranberry Farm Supervisor Name Role Phone Basil Flores MD AUTM [phone] Nilsa Keene MD AUTM [phone] Jhoana Moncada ANP AUTM [phone] Robert Anthony MD AUTM [phone] Mary Rogers MD AUTM [phone] Problems Active Problems Provider Date Colostomy bag [...] by mouth every day 90tabs Jhoana Duran [facility] Albuterol Sulfate (2 .5mg/3ML) 0.083% Nebulizer use via aerosol neb four times a day as needed DX: J45.2 75ml [facility] Walters[facility] 05/22/2020 Ropinirole HCL 1mg Tablets take 1 tablet by mouth at 4 pm and at bedtime 180tabs G25.81 Jhoana Duran [facility] 12/31/2019 Furosemide 20mg Tablets 1 by mouth every day prn 30tabs Albert Qureshi JR PA 020 Pantoprazole Sodium 40mg Tablets D R 1 by mouth every day 90tabs Jhoana Duran [facility] 06/20/2019 Oxycontin 20mg Tab ER 12H [...] 1 by mouth twice daily Suad Gama [facility] 12/31/2016 Lidoderm 12 hrs on 12 [...] support for left and right dx 719.43 2unjudd Mendez D.O. 02/13/2013 Multivitamins Tablets 1 po q d [...] CPT Code Status Date Vaccine Lot # [id number] Given 10/18/2018 Adacel- Tetanus Diphtheria P ertussis [id number] Given 06/03/2006 Pneumovax 23 52488 Refused 11/10/2017 Zoster Vaccine 50970 Refused 11/10/2017 Tetanus/Diptheria(Td)Toxoids Preservative Free 04336 Refused 11/10/2017 Influenza Vaccin e Quadrivalent Preser/Antibiotic Free [place] Use 75916 Refused 11/10/2017 Prevnar 13 Vital Signs Date [...] H/L Range Note Complete Blood Count 05/14/2021 [facility] General Duty Nurse: Dr Jac Malone [place] [id number] [phone] WBC 5.1 x10*3/UL 4.1 - 10.9 RBC [...] 2.0 - 7.8 Comprehensive Chem Profile 05/14/2021 [facility] General Duty Nurse: [place] [address] [phone] Glucose 106 mg/dL High 74 - 99 [...] Low >60 3 Complete Blood Count 05/06/2021 [facility] General Duty Nurse: [place] [address] [phone] WBC 4.1 x10*3/UL 4.1 - 10.9 4 [...] 2.0 - 7.8 Complete Blood Count 02/24/2021 [facility] General Duty Nurse: [place] [address] [phone] WBC 3.8 x10*3/UL Low 4.1 - 10.9 [...] 2.2 x10*3/UL 2.0 - 7.8 A1c 02/24/2021 [facility] , General Duty Nurse: [place] [address] [phone] Hba1c 6.5 % High <5.7 6 Est Avg Glucose 140 mg/dL High 60 - 110 Comprehensive Chem Profile 02/24/2021 [facility] General Duty Nurse: [place] [address] [phone] Glucose 121 mg/dL High 74 - 99 [...] mL/min Low >60 8 Lipid Profile 02/24/2021 [facility] General Duty Nurse: [place] [address] [phone] Cholesterol 119 mg/dL Low 131 - 200 Triglycerides 92 mg/dL 30 - 150 HDL Cholesterol 50 mg/dL 35 - 60 LDL (Calculated) 51 CALC 50 - 159 Complete Blood Count 12/26/2020 [facility] General Duty Nurse: [place] [address] [phone] WBC 5.2 x10*3/UL 4.1 - 10.9 9 [...] 2.0 - 7.8 Comprehensive Chem Profile 12/26/2020 [facility] Mc[facility]ide General Duty Nurse: [place] [address] [phone] Glucose 111 mg/dL High 74 - 99 [...] LITTLE GFR LEFT ESRD GFR <15 ON PURCHASING SUPERVISOR 4 NOTE: CBC VERIFIED 5 NOTE: [...] LITTLE GFR LEFT ESRD GFR <15 ON PURCHASING SUPERVISOR 9 NOTE: CBC VERIFIED 10 100-125 mg/dL PRE-DIABET ES/FASTING >126 mg/dL DIABETES/FASTING 11 CHRONIC KIDNEY DISEASE STAGI NG PER NKF STAGE I & II GFR >= 60 NORMAL TO MILDLY DECREASED STAGE III GFR 30-59 MODERATELY DECREASED STAGE IV GFR 15-29 SEVERELY DECREASED STAGE V GFR <15 VERY LITTLE GFR LEFT ESRD GFR <15 ON PURCHASING SUPERVISOR Procedures Date Code Description Status 05/14/2021 31694 Office/Outpatient Established Mo d MDM 30-39 Min Completed 04/30/2021 16072 Office/Outpatient Established Mo d MDM 30-39 Min Completed 02/24/2021 65636 Office/Outpatient Established Mo d MDM 30-39 Min Completed 02/16/2021 85160 Complex Chronic Care MGMT Servic e Ea Addl 30 Min Completed 02/16/2021 95483 Complex Chronic Care Management SVC 1St 60 Min Completed 01/13/2021 39518 Complex Chronic Care MGMT Servic e Ea Addl 30 Min Completed 01/13/2021 00356 Complex Chronic Care Management SVC 1St 60 Min Completed 12/26/2020 14397 Office/Outpatient Established Mo d MDM 30-39 Min Completed 06/23/2020 [id number] Colonoscopy Completed 02/14/2020 210139865 Diabetic Foot Exam Completed 02/13/2020 531162380 Diabetic Foot Exam Completed 01/16/2020 40154403 Colonoscopy Completed 10/26/2019 585892628 Diabetic Retinal Eye Exam [facility] 03/22/2019 484628179 Diabetic Foot Exam Completed 02/08/2019 265845114 Diabetic Foot Exam Completed 05/12/2017 838419002 Diabetic Foot Exam Completed 07/30/2015 312409257 Diabetic Retinal Eye Exam [facility] 07/28/2015 234005103 Diabetic Foot Exam Completed 07/23/2015 855857501 Diabetic Foot Exam Completed 03/11/2014 84670278 Mammogram Completed 06/03/2012 331507679 Diabetic Retinal Eye Exam [facility] 12/03/2011 81410476 Colonoscopy Completed 05/06/2010 98561966 Mammogram Completed 05/06/2010 170188693 Bone Mineral Density Test [facility] 01/08/2009 803261565 Bone Mineral Density Test [facility] Medical Devices Description No Information Available Encounters Type Date Location Provider Dx Diagnosis Office Visit 05/14/2021 2:40p [facility] 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 Jhoana Triana, PELLET MACHINE OPERATOR E11.21 Type 2 diabetes mellitus with diabetic [...] e not specified Office Visit 02/24/2021 1:00p [facility] Jhoana Triana, [facility] E11.21 Type 2 diabetes mellitus with [...] for other disorder Office Visit 12/26/2020 11:40a [facility] 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 SHANNON Walters 05/14/2021 N18.32 Chronic kidney disease, stage 3b Jhoana [place], [facility] 05/14/2021 R93.5 Abnormal findings on diagnostic imaging of other abdominal regions, including retroperitoneum Jhoana [place], [facility] 05/06/2021 D63.1 Anemia in chronic kidney disease Jhoana [place], [facility] 05/06/2021 D63.1 Anemia in chronic kidney disease Lab Schedule 04/30/2021 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 Jhoana [place], [facility] 04/30/2021 E11.40 Type 2 diabetes caprice itus with diabetic neuropathy, unspecified Jhoana [place], [facility] 04/30/2021 I12.9 Hypertensive chronic kidney disease with stage 1 through stage 4 chronic kidney disease, or unspecified chronic kidney disease Jhoana [place], [facility] 04/30/2021 N18.32 Chronic kidney disease, stage 3b Jhoana [place], [facility] 04/30/2021 D63.1 Anemia in chronic kidney disease Jhoana [place], [facility] 04/30/2021 E03.9 Hypothyroidism, unspecified Jhoana [place], [facility] 04/30/2021 I48.0 Paroxysmal atrial fibrillation A nn [place], [facility] 04/30/2021 G47.33 Obstructive sleep apnea (adult) (pediatric) Jhoana [place], [facility] 04/30/2021 K21.9 Gastro-esophageal reflux disease without esophagitis Jhoana [place], [facility] 04/30/2021 K22.2 Esophageal obstruction Jhoana Isa geller, [facility] 04/30/2021 N39.0 Urinary tract infection, site no t specified Hjoana [place], [facility] 02/24/2021 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 Jhoana [place], [facility] 02/24/2021 I12.9 Hypertensive chronic kidney disease with stage 1 through stage 4 chronic kidney disease, or unspecified chronic kidney disease Jhoana [place], [facility] 02/24/2021 N18.32 Chronic kidney disease, stage 3b Jhoana [place], [facility] 02/24/2021 D63.1 Anemia in chronic kidney disease Jhoana [place], [facility] 02/24/2021 E03.9 Hypothyroidism, unspecified Jhoana [place], [facility] 02/24/2021 I48.0 Paroxysmal atrial fibrillation A nn [place], [facility] 02/24/2021 G47.33 Obstructive sleep apnea (adult) (pediatric) SHANNON Walters 02/24/2021 E78.00 Pure hypercholesterolemia, unspe cified SHANNON Walters 02/24/2021 Z13.89 Encounter for screening for othe r disorder SHANNON Walters 02/16/2021 I12.9 Hypertensive chronic kidney disease with [...] 08/27/2021 2:20 pm - SHANNON Walters at [facility] * 05/27/2021 2:20 pm - Bronson Malone DO at [facility] 05/14/2021 - SHANNON Walters* K94.01 [...] retroperitoneum* Comments:* The CT scan she had [facility] on April 23 showed a [...] DX: DYSPHAG IA Patient Notified 06/09/[address] [facility] [address] [phone] [facility] CONSULT FOR RT KNEE PAIN Created [address] [place] [address] [phone]
--- OUTSIDE RECORDS SUMMARY | 2021-06-22 11:09 | CCD | Continuity of Care Document ---
Author Author Lab Schedule, Uzma Aquino Organization Unknown Address [address] [address] Phone Unavailable Care Team Providers Care Scales Inspector Name Role Phone Basil Flores MD AUTM [phone] Nilsa Keene MD AUTM [phone] Jhoana Moncdaa ANP AUTM [phone] Robert Anthony MD AUTM [phone] Mary Rogers MD AUTM [phone] Problems Active Problems Provider Date Colostomy bag [...] twice a day 20caps N39.0 Jhoana Duran [facility] 04/30/2021 Amlodipine Besylate 10mg Tablets 1 by mouth every day Unknown 11/24/2020 Metoprolol Succinate ER 25mg Tablets ER 24HR 1 by mouth every day 90tabs Jhoana Duran [facility] Albuterol Sulfate (2 .5mg/3ML) 0.083% Nebulizer use via aerosol neb four times a day as needed DX: J45.2 75ml Jhoana Duran [facility] 05/22/2020 Ropinirole HCL 1mg Tablets take 1 tablet by mouth at 4 pm and at bedtime 180tabs G25.81 Jhoana Duran [facility] 12/31/2019 Furosemide 20mg Tablets 1 by mouth every day prn 30tabs Albert Qureshi JR PA 020 Pantoprazole Sodium 40mg Tablets D R 1 by mouth every day 90tabs Jhoana Duran [facility] 06/20/2019 Oxycontin 20mg Tab ER 12H Abuse-De t 1 by mouth twice a day Unknown 04/09/2019 Lisinopril 20mg Tablets Take 1 tablet by mouth once daily 90tabs Davida Everett, [facility] 09/19/2018 Colace 100mg Capsules 1 po bi d 120caps Jac Malone MD 04/07/2018 Nitrostat 0.4mg Tablets Sub one under tongue every 5 minutes x 3 as needed for chest discomfort 25tabs Jhoana Duran [facility] 02/03/2018 Trazodone HCL 100mg Tablets take one tablet by mouth at bedtime 90tabs G47.00 Jhoana Duran [facility] 01/20 Magnesium 400mg Tablets 1 by mouth twice daily Suad Gama [facility] 12/31/2016 Lyrica 100mg Capsules 1 by mouth 3x a day 90caps Elia Mendez D.O. 06/11/2016 Vitamin B-12 1000mcg Tablets 1 by mouth every day 90tabs Sudha InterianoOJudy 06/11 Lidoderm 12 hrs on 12 hrs off 90unjudd Perez D.O. 06/11/2016 Urinary Leg Bag Kit Medium/19Oz With Str aps Kit for nephrostomy tube collection bilateral. Hydronephr osis DX:N13.30 2unjudd Gama, VETERINARY MEDICINE TEACHER 04/12/2016 Synthroid 50mcg Tablets 1 by mouth [...] CPT Code Status Date Vaccine Lot # [id number] Given 10/18/2018 Adacel- Tetanus Diphtheria P ertussis [id number] Given 06/03/2006 Pneumovax 23 06845 Refused 11/10/2017 Zoster Vaccine 14307 Refused 11/10/2017 Tetanus/Diptheria(Td)Toxoids Preservative Free 24042 Refused 11/10/2017 Influenza Vaccin e Quadrivalent Preser/Antibiotic Free Im Use 09795 Refused 11/10/2017 Prevnar 13 Vital Signs Date [...] H/L Range Note Complete Blood Count 05/06/2021 [facility] Chief Investigator: [place] [address] [phone] WBC 4.1 x10*3/UL 4.1 - 10.9 1 [...] 2.0 - 7.8 Complete Blood Count 02/24/2021 [facility] Chief Investigator: [place] [address] [phone] WBC 3.8 x10*3/UL Low 4.1 - 10.9 [...] 2.2 x10*3/UL 2.0 - 7.8 A1c 02/24/2021 [facility] , Chief Investigator: [place] [address] [phone] Hba1c 6.5 % High <5.7 3 Est Avg Glucose 140 mg/dL High 60 - 110 Comprehensive Chem Profile 02/24/2021 [facility] Chief Investigator: [place] [address] [phone] Glucose 121 mg/dL High 74 - 99 [...] mL/min Low >60 5 Lipid Profile 02/24/2021 [facility] Chief Investigator: [place] [address] [phone] Cholesterol 119 mg/dL Low 131 - 200 Triglycerides 92 mg/dL 30 - 150 HDL Cholesterol 50 mg/dL 35 - 60 LDL (Calculated) 51 CALC 50 - 159 Complete Blood Count 12/26/2020 [facility] Chief Investigator: [place] [address] [phone] WBC 5.2 x10*3/UL 4.1 - 10.9 6 [...] 2.0 - 7.8 Comprehensive Chem Profile 12/26/2020 [facility] charlene Gimenez Chief Investigator: Dr Jac Malone [place], [place] [id number] [phone] Glucose 111 mg/dL High 74 - 99 [...] LITTLE GFR LEFT ESRD GFR <15 ON [employer] CERTIFIED NETWORK ASSOCIATE 6 NOTE: CBC VERIFIED 7 100-125 mg/dL PRE-DIABET ES/FASTING >126 mg/dL DIABETES/FASTING 8 CHRONIC KIDNEY DISEASE STAGI NG PER NKF STAGE I & II GFR >= 60 NORMAL TO MILDLY DECREASED STAGE III GFR 30-59 MODERATELY DECREASED STAGE IV GFR 15-29 SEVERELY DECREASED STAGE V GFR <15 VERY LITTLE GFR LEFT ESRD GFR <15 ON CISCO CERTIFIED NETWORK ASSOCIATE Procedures Date Code Description Status 04/30/2021 54672 Office/Outpatient Established Mo d MDM 30-39 Min Completed 02/24/2021 80258 Office/Outpatient Established Mo d MDM 30-39 Min Completed 02/16/2021 53818 Complex Chronic Care MGMT Servic e Ea Addl 30 Min Completed 02/16/2021 67045 Complex Chronic Care Management SVC 1St 60 Min Completed 01/13/2021 08562 Complex Chronic Care MGMT Servic e Ea Addl 30 Min Completed 01/13/2021 91496 Complex Chronic Care Management SVC 1St 60 Min Completed 12/26/2020 41677 Office/Outpatient Established Mo d MDM 30-39 Min Completed 06/23/2020 63492848 Colonoscopy Completed 02/14/2020 953854575 Diabetic Foot Exam Completed 02/13/2020 068264571 Diabetic Foot Exam Completed 01/16/2020 30798738 Colonoscopy Completed 10/26/2019 133299489 Diabetic Retinal Eye Exam [facility] 03/22/2019 365217930 Diabetic Foot Exam Completed 02/08/2019 872824468 Diabetic Foot Exam Completed 05/12/2017 289829195 Diabetic Foot Exam Completed 07/30/2015 258308401 Diabetic Retinal Eye Exam [facility] 07/28/2015 521609354 Diabetic Foot Exam Completed 07/23/2015 506864252 Diabetic Foot Exam Completed 03/11/2014 37001746 Mammogram Completed 06/03/2012 565658051 Diabetic Retinal Eye Exam [facility] 12/03/2011 07150344 Colonoscopy Completed 05/06/2010 47121108 Mammogram Completed 05/06/2010 842465971 Bone Mineral Density Test [facility] 01/08/2009 022237478 Bone Mineral Density Test [facility] Medical Devices Description No Information Available Encounters Type Date Location Provider Dx Diagnosis Office Visit 04/30/2021 1:40p [facility] Jhoana Moss Pi ne, VETERINARY MEDICINE TEACHER E11.21 Type 2 diabetes mellitus with [...] e not specified Office Visit 02/24/2021 1:00p [facility] Jhoana Triana, [facility] E11.21 Type 2 diabetes mellitus with diabetic [...] for other disorder Office Visit 12/26/2020 11:40a [facility] 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 Jhoana Duran, [facility] 04/30/2021 E11.40 Type 2 diabetes caprice itus with diabetic neuropathy, unspecified Jhoana Duran, [facility] 04/30/2021 I12.9 Hypertensive chronic kidney disease with stage 1 through stage 4 chronic kidney disease, or unspecified chronic kidney disease Jhoana Duran, [facility] 04/30/2021 N18.32 Chronic kidney disease, stage 3b Jhoana Duran, [facility] 04/30/2021 D63.1 Anemia in chronic kidney disease Jhoana Duran [facility] 04/30/2021 E03.9 Hypothyroidism, unspecified Jhoana Duran, [facility] 04/30/2021 I48.0 Paroxysmal atrial fibrillation A elyse Duran, [facility] 04/30/2021 G47.33 Obstructive sleep apnea (adult) (pediatric) Jhoana Duran [facility] 04/30/2021 K21.9 Gastro-esophageal reflux disease without esophagitis Jhoana Duran, [facility] 04/30/2021 K22.2 Esophageal obstruction Jhoana Triana, [facility] 04/30/2021 N39.0 Urinary tract infection, site no t specified Jhoana Duran [facility] 02/24/2021 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 Jhoana Duran [facility] 02/24/2021 I12.9 Hypertensive chronic kidney disease with stage 1 through stage 4 chronic kidney disease, or unspecified chronic kidney disease Jhoana Duran, [facility] 02/24/2021 N18.32 Chronic kidney disease, stage 3b Jhoana Duran, [facility] 02/24/2021 D63.1 Anemia in chronic kidney disease Jhoana Isa Leos [facility] 02/24/2021 E03.9 Hypothyroidism, unspecified Jhoana Duran, [facility] 02/24/2021 I48.0 Paroxysmal atrial fibrillation A elyse Isa Leos, [facility] 02/24/2021 G47.33 Obstructive sleep apnea (adult) (pediatric) Jhoana Duran, [facility] 02/24/2021 E78.00 Pure hypercholesterolemia, unspe cified Jhoana Isa Dafne [facility] 02/24/2021 Z13.89 Encounter for screening for othe r disorder Jhoana Duran [facility] 02/16/2021 I12.9 Hypertensive chronic kidney disease with stage 1 through stage 4 chronic kidney disease, or unspecified chronic kidney disease Jac Malone MD 02/16/2021 E11.40 Type 2 diabetes caprice itus with diabetic neuropathy, unspecified Jac Malone MD 02/16/2021 K21.9 Gastro-esophageal reflux disease without esophagitis Jca Malone MD 02/16/2021 E03.9 Hypothyroidism, unspecified Unique mauricio Malone MD 01/13/2021 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 * 05/27/2021 2:20 pm - Bronson Malone DO at [facility] 04/30/2021 - SHANNON Walters* E11.21 [...] is not on anticoagulation despite a high [id number] score of 5 due to anemia and [...] to Reason for Referral Status Appt Date [facility] CONSULT FOR RT KNEE PAIN Created [address] [place], [place] [id number] [phone]
--- OUTSIDE RECORDS SUMMARY | 2021-06-22 11:09 | CCD | Continuity of Care Document ---
Author Author Lab Schedule, Uzma Aquino Organization Unknown Address [address] [address] Phone Unavailable Care Team Providers Care Clinical Laboratory Assistant Name Role Phone Basil Flores MD AUTM [phone] Nilsa Keene MD AUTM [phone] Jhoana Moncada ANP AUTM [phone] Robert Anthony MD AUTM [phone] Mary Rogers MD AUTM [phone] Problems Active Problems Provider Date Colostomy bag [...] twice a day 20caps N39.0 Jhoana Duran [facility] 04/30/2021 Amlodipine Besylate 10mg Tablets 1 by mouth every day Unknown 11/24/2020 Metoprolol Succinate ER 25mg Tablets ER 24HR 1 by mouth every day 90tabs Jhoana Duran [facility] Albuterol Sulfate (2 .5mg/3ML) 0.083% Nebulizer use via aerosol neb four times a day as needed DX: J45.2 75ml Jhoana Duran [facility] 05/22/2020 Ropinirole HCL 1mg Tablets take 1 tablet by mouth at 4 pm and at bedtime 180tabs G25.81 Jhoana Duran [facility] 12/31/2019 Furosemide 20mg Tablets 1 by mouth every day prn 30tabs Albert Qureshi JR PA 020 Pantoprazole Sodium 40mg Tablets D R 1 by mouth every day 90tabs Jhoana Duran [facility] 06/20/2019 Oxycontin 20mg Tab ER 12H Abuse-De t 1 by mouth twice a day Unknown 04/09/2019 Lisinopril 20mg Tablets Take 1 tablet by mouth once daily 90tabs Davida Everett, DMITRY 09/19/2018 Colace 100mg Capsules 1 po bi d 120caps Jac Malone MD 04/07/2018 Nitrostat 0.4mg Tablets Sub one under tongue every 5 minutes x 3 as needed for chest discomfort 25tabs Jhoana Duran [facility] 02/03/2018 Trazodone HCL 100mg Tablets take one tablet by mouth at bedtime 90tabs G47.00 Jhoana Duran [facility] 01/20 Magnesium 400mg Tablets 1 by mouth twice daily Suad Gama [facility] 12/31/2016 Lyrica 100mg Capsules 1 by mouth 3x a day 90caps Elia Mendez D.O. 06/11/2016 Vitamin B-12 1000mcg Tablets 1 by mouth every day 90tabs Sudha InterianoOJudy 06/11 Lidoderm 12 hrs on 12 hrs off 90unjudd Perez D.O. 06/11/2016 Urinary Leg Bag Kit Medium/19Oz With Str aps Kit for nephrostomy tube collection bilateral. Hydronephr osis DX:N13.30 2unjudd Gama, BOTTLE CAPPING MACHINE OPERATOR 04/12/2016 Synthroid 50mcg Tablets 1 by mouth [...] CPT Code Status Date Vaccine Lot # [id number] Given 10/18/2018 Adacel- Tetanus Diphtheria P ertussis [id number] Given 06/03/2006 Pneumovax 23 40195 Refused 11/10/2017 Zoster Vaccine 88852 Refused 11/10/2017 Tetanus/Diptheria(Td)Toxoids Preservative Free 78070 Refused 11/10/2017 Influenza Vaccin e Quadrivalent Preser/Antibiotic Free [place] Use 55309 Refused 11/10/2017 Prevnar 13 Vital Signs Date [...] Result H/L Range Note Complete Blood Count 02/24/2021 [facility] Senior Construction Manager: [place] [address] [phone] WBC 3.8 x10*3/UL Low 4.1 - 10.9 1 RBC 3.16 x10*6/UL Low 4.20 - 6.30 [...] 2.2 x10*3/UL 2.0 - 7.8 A1c 02/24/2021 [facility] , Senior Construction Manager: [place] [address] [phone] Hba1c 6.5 % High <5.7 2 Est Avg Glucose 140 mg/dL High 60 - 110 Comprehensive Chem Profile 02/24/2021 [facility], Senior Construction Manager: [place] [address] [phone] Glucose 121 mg/dL High 74 - 99 3 BUN 13 mg/dL 7 - 18 Creatinine [...] Low >60 GFR 48 mL/min Low >60 4 Lipid Profile 02/24/2021 [facility] , Senior Construction Manager: [place] [address] [phone] Cholesterol 119 mg/dL Low 131 - 200 Triglycerides 92 mg/dL 30 - 150 HDL Cholesterol 50 mg/dL 35 - 60 LDL (Calculated) 51 CALC 50 - 159 Complete Blood Count 12/26/2020 [facility] Senior Construction Manager: [place] [address] [phone] WBC 5.2 x10*3/UL 4.1 - 10.9 5 RBC 3.34 x10*6/UL Low 4.20 - 6.30 [...] 2.0 - 7.8 Comprehensive Chem Profile 12/26/2020 [facility] Senior Construction Manager: [place] [address] [phone] Glucose 111 mg/dL High 74 - 99 6 BUN 17 mg/dL 7 - 18 Creatinine [...] Low >60 GFR 48 mL/min Low >60 7 1 NOTE: CBC VERIFIED 2 Lab Result Notes: Pre-Diabetes 5.7 - 6.4 % Diabetes = or > 6.5% 3 100-125 mg/dL PRE-DIABET ES/FASTING >126 mg/dL DIABETES/FASTING 4 CHRONIC KIDNEY DISEASE STAGI NG PER NKF STAGE I & II GFR >= 60 NORMAL TO MILDLY DECREASED STAGE III GFR 30-59 MODERATELY DECREASED STAGE IV GFR 15-29 SEVERELY DECREASED STAGE V GFR <15 VERY LITTLE GFR LEFT ESRD GFR <15 ON BYPRODUCTS SUPERVISOR 5 NOTE: CBC VERIFIED 6 100-125 mg/dL PRE-DIABET ES/FASTING >126 mg/dL DIABETES/FASTING 7 CHRONIC KIDNEY DISEASE STAGI NG PER NKF STAGE I & II GFR >= 60 NORMAL TO MILDLY DECREASED STAGE III GFR 30-59 MODERATELY DECREASED STAGE IV GFR 15-29 SEVERELY DECREASED STAGE V GFR <15 VERY LITTLE GFR LEFT ESRD GFR <15 ON BYPRODUCTS SUPERVISOR Procedures Date Code Description Status 04/30/2021 56712 Office/Outpatient Established Mo d MDM 30-39 Min Completed 02/24/2021 20294 Office/Outpatient Established Mo d MDM 30-39 Min Completed 02/16/2021 65222 Complex Chronic Care MGMT Servic e Ea Addl 30 Min Completed 02/16/2021 00485 Complex Chronic Care Management SVC 1St 60 Min Completed 01/13/2021 95466 Complex Chronic Care MGMT Servic e Ea Addl 30 Min Completed 01/13/2021 65094 Complex Chronic Care Management SVC 1St 60 Min Completed 12/26/2020 01954 Office/Outpatient Established Mo d MDM 30-39 Min Completed 06/23/2020 [id number] Colonoscopy Completed 02/14/2020 [id number] Diabetic Foot Exam Completed 02/13/2020 [id number] Diabetic Foot Exam Completed 01/16/2020 [id number] Colonoscopy Completed 10/26/2019 [id number] Diabetic Retinal Eye Exam Comple kari 03/22/2019 [id number] Diabetic Foot Exam Completed 02/08/2019 [id number] Diabetic Foot Exam Completed 05/12/2017 [id number] Diabetic Foot Exam Completed 07/30/2015 [id number] Diabetic Retinal Eye Exam Comple kari 07/28/2015 [id number] Diabetic Foot Exam Completed 07/23/2015 [id number] Diabetic Foot Exam Completed 03/11/2014 [id number] Mammogram Completed 06/03/2012 062029425 Diabetic Retinal Eye Exam Comple [facility] 12/03/2011 [id number] Colonoscopy Completed 05/06/2010 [id number] Mammogram Completed 05/06/2010 [id number] Bone Mineral Density Test Comple [facility] 01/08/2009 [id number] Bone Mineral Density Test Comple [facility] Medical Devices Description No Information Available Encounters Type Date Location Provider Dx Diagnosis Office Visit 04/30/2021 1:40p [facility] Jhoana Triana, BOTTLE CAPPING MACHINE OPERATOR E11.21 Type 2 diabetes mellitus [...] e not specified Office Visit 02/24/2021 1:00p [facility] Jhoana Triana, BOTTLE CAPPING MACHINE OPERATOR E11.21 Type 2 diabetes mellitus [...] for other disorder Office Visit 12/26/2020 11:40a [facility] 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 SHANNON Walters 04/30/2021 E11.40 Type 2 diabetes caprice itus with diabetic neuropathy, unspecified SHANNON Walters 04/30/2021 I12.9 Hypertensive chronic kidney disease with stage 1 through stage 4 chronic kidney disease, or unspecified chronic kidney disease Jhoana Duran, [facility] 04/30/2021 N18.32 Chronic kidney disease, stage 3b Jhoana Duran, [facility] 04/30/2021 D63.1 Anemia in chronic kidney disease Jhoana Duran, [facility] 04/30/2021 E03.9 Hypothyroidism, unspecified Jhoana Duran, [facility] 04/30/2021 I48.0 Paroxysmal atrial fibrillation A elyse Duran, [facility] 04/30/2021 G47.33 Obstructive sleep apnea (adult) (pediatric) Jhoana Duran, [facility] 04/30/2021 K21.9 Gastro-esophageal reflux disease without esophagitis Jhoana Duran, [facility] 04/30/2021 K22.2 Esophageal obstruction Jhoana Isa Ash yimi, [facility] 04/30/2021 N39.0 Urinary tract infection, site no t specified Jhoana Duran, [facility] 02/24/2021 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 Jhoana Duran, [facility] 02/24/2021 I12.9 Hypertensive chronic kidney disease with stage 1 through stage 4 chronic kidney disease, or unspecified chronic kidney disease Jhoana Duran, [facility] 02/24/2021 N18.32 Chronic kidney disease, stage 3b Jhoana Duran, [facility] 02/24/2021 D63.1 Anemia in chronic kidney disease Jhoana Duran, [facility] 02/24/2021 E03.9 Hypothyroidism, unspecified Jhoana Duran, [facility] 02/24/2021 I48.0 Paroxysmal atrial fibrillation A elyse Duran, [facility] 02/24/2021 G47.33 Obstructive sleep apnea (adult) (pediatric) Jhoana Duran, [facility] 02/24/2021 E78.00 Pure hypercholesterolemia, unspe cified Jhoana Duran, [facility] 02/24/2021 Z13.89 Encounter for screening for othe r disorder Jhoana Duran, [facility] 02/16/2021 I12.9 Hypertensive chronic kidney disease with [...] 08/27/2021 2:20 pm - SHANNON Walters at [facility] * 05/27/2021 2:20 pm - Bronson Malone DO at [facility] 04/30/2021 - SHANNON Walters* E11.21 [...] is not on anticoagulation despite a high [id number] score of 5 due to anemia and [...] to Reason for Referral Status Appt Date [facility] CONSULT FOR RT KNEE PAIN Created [address] [place] [address] [phone]
--- OUTSIDE RECORDS SUMMARY | 2021-06-22 11:09 | CCD | Continuity of Care Document ---
Author Author Uzma Walters Organization Unknown Address [phone] [address] Phone [phone] Care Team Providers Care Varnish Filterer Name Role Phone Basil Flores MD AUTM [phone] Nilsa Keene MD AUTM [phone] Jhoana Moncada ANP AUTM [phone] Robert Anthony MD AUTM [phone] Mary Rogers MD AUTM [phone] Problems Active Problems Provider Date Colostomy bag [...] twice a day 20caps N39.0 Jhoana Duran [facility] 04/30/2021 Amlodipine Besylate 10mg Tablets 1 by mouth every day Unknown 11/24/2020 Metoprolol Succinate ER 25mg Tablets ER 24HR 1 by mouth every day 90tabs Jhoana Duran [facility] Albuterol Sulfate (2 .5mg/3ML) 0.083% Nebulizer use via aerosol neb four times a day as needed DX: J45.2 75ml Jhoana Duran [facility] 05/22/2020 Ropinirole HCL 1mg Tablets take 1 tablet by mouth at 4 pm and at bedtime 180tabs G25.81 Jhoana Duran [facility] 12/31/2019 Furosemide 20mg Tablets 1 by mouth every day prn 30tabs CAREY Oneill JR 020 Pantoprazole Sodium 40mg Tablets D R 1 by mouth every day 90tabs Jhoana Duran [facility] 06/20/2019 Oxycontin 20mg Tab ER 12H [...] needed for chest discomfort 25tabs Jhoana Duran [facility] 02/03/2018 Trazodone HCL 100mg Tablets take one tablet by mouth at bedtime 90tabs G47.00 [facility]ters[facility] 01/20 Magnesium 400mg Tablets 1 by mouth twice daily Suad Gama [facility] 12/31/2016 Lyrica 100mg Capsules 1 by mouth [...] CPT Code Status Date Vaccine Lot # 34061 Given 10/18/2018 Adacel- Tetanus Diphtheria P ertussis (Age64 & Under) [id number] Given 06/03/2006 Pneumovax 23 03761 Refused 11/10/2017 Zoster Vaccine 53123 Refused 11/10/2017 Tetanus/Diptheria(Td)Toxoids Preservative Free 18116 Refused 11/10/2017 Influenza Vaccin e Quadrivalent Preser/Antibiotic Free Im Use 33255 Refused 11/10/2017 Prevnar 13 Vital Signs Date [...] H/L Range Note Complete Blood Count 02/24/2021 [facility] Ring Rolling Machine Operator: Dr Jac Malone [place], [place] [id number] [phone] WBC 3.8 x10*3/UL Low 4.1 - 10.9 [...] 2.2 x10*3/UL 2.0 - 7.8 A1c 02/24/2021 [facility] , Ring Rolling Machine Operator: [place] [address] [phone] Hba1c 6.5 % High <5.7 2 Est Avg Glucose 140 mg/dL High 60 - 110 Comprehensive Chem Profile 02/24/2021 [facility], Ring Rolling Machine Operator: [place] [address] [phone] Glucose 121 mg/dL High 74 - 99 [...] mL/min Low >60 4 Lipid Profile 02/24/2021 [facility] , Ring Rolling Machine Operator: [place] [address] [phone] Cholesterol 119 mg/dL Low 131 - 200 Triglycerides 92 mg/dL 30 - 150 HDL Cholesterol 50 mg/dL 35 - 60 LDL (Calculated) 51 CALC 50 - 159 Complete Blood Count 12/26/2020 [facility] Ring Rolling Machine Operator: [place] [address] [phone] WBC 5.2 x10*3/UL 4.1 - 10.9 5 [...] 2.0 - 7.8 Comprehensive Chem Profile 12/26/2020 [facility] Ring Rolling Machine Operator: [place] [address] [phone] Glucose 111 mg/dL High 74 - 99 [...] LITTLE GFR LEFT ESRD GFR <15 ON DIABETOLOGIST 5 NOTE: CBC VERIFIED 6 100-125 mg/dL PRE-DIABET ES/FASTING >126 mg/dL DIABETES/FASTING 7 CHRONIC KIDNEY DISEASE STAGI NG PER NKF STAGE I & II GFR >= 60 NORMAL TO MILDLY DECREASED STAGE III GFR 30-59 MODERATELY DECREASED STAGE IV GFR 15-29 SEVERELY DECREASED STAGE V GFR <15 VERY LITTLE GFR LEFT ESRD GFR <15 ON DIABETOLOGIST Procedures Date Code Description Status 02/24/2021 47324 Office/Outpatient Established Mo d MDM 30-39 Min Completed 02/16/2021 37201 Complex Chronic Care MGMT Servic e Ea Addl 30 Min Completed 02/16/2021 74677 Complex Chronic Care Management SVC 1St 60 Min Completed 01/13/2021 05596 Complex Chronic Care MGMT Servic e Ea Addl 30 Min Completed 01/13/2021 58330 Complex Chronic Care Management SVC 1St 60 Min Completed 12/26/2020 39819 Office/Outpatient Established Mo d MDM 30-39 Min Completed 06/23/2020 [id number] Colonoscopy Completed 02/14/2020 [id number] Diabetic Foot Exam Completed 02/13/2020 150351836 Diabetic Foot Exam Completed 01/16/2020 [id number] Colonoscopy Completed 10/26/2019 [id number] Diabetic Retinal Eye Exam Comple [facility] 03/22/2019 [id number] Diabetic Foot Exam Completed 02/08/2019 [id number] Diabetic Foot Exam Completed 05/12/2017 [id number] Diabetic Foot Exam Completed 07/30/2015 206851134 Diabetic Retinal Eye Exam Comple [facility] 07/28/2015 [id number] Diabetic Foot Exam Completed 07/23/2015 [id number] Diabetic Foot Exam Completed 03/11/2014 [id number] Mammogram Completed 06/03/2012 474247512 Diabetic Retinal Eye Exam Comple [facility] 12/03/2011 [id number] Colonoscopy Completed 05/06/2010 [id number] Mammogram Completed 05/06/2010 [id number] Bone Mineral Density Test Comple [facility] 01/08/2009 [id number] Bone Mineral Density Test Comple [facility] Medical Devices Description No Information Available Encounters Type Date Location Provider Dx Diagnosis Office Visit 02/24/2021 1:00p [facility] Jhoana Triana, LEAD ELECTRICAL CONTROLS ENGINEER E11.21 Type 2 diabetes mellitus with diabetic [...] for other disorder Office Visit 12/26/2020 11:40a [facility] 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 SHANNON Walters 02/24/2021 I12.9 Hypertensive chronic kidney disease with stage 1 through stage 4 chronic kidney disease, or unspecified chronic kidney disease SHANNON Walters 02/24/2021 N18.32 Chronic kidney disease, stage 3b SHANNON Walters 02/24/2021 D63.1 Anemia in chronic kidney disease SHANNON Walters 02/24/2021 E03.9 Hypothyroidism, unspecified SHANNON Walters 02/24/2021 I48.0 Paroxysmal atrial fibrillation A SHANNON Dee 02/24/2021 G47.33 Obstructive sleep apnea (adult) (pediatric) [...] 2 diabetes mellitus with di abetic nephropathy aJc Malone MD 01/13/2021 I12.9 Hypertensive chronic kidney disease with stage 1 through stage 4 chronic kidney disease, or unspecified chronic kidney disease Jac Malone MD 01/13/2021 E03.9 Hypothyroidism, unspecified Unique Malone MD 12/26/2020 R60.0 Localized edema SHANNON Walters 12/26/2020 N18.32 Chronic kidney disease, stage 3b SHANNON Walters 12/26/2020 D63.1 Anemia in chronic kidney disease SHANNON Walters Plan of Treatment Future Appointment(s):* 08/27/2021 2:20 pm - SHANNON Walters at [facility] * 05/27/2021 2:20 pm - Bronson Malone DO at [facility] 04/30/2021 - SHANNON Walters* N39.0 Urinary tract infection, site not specified * New Medication:* Cefdinir 300 mg - 1 by mouth twice a day Functional Status Description No Information Available Mental Status Description No Information Available Referrals Refer to Dr Reason for Referral Status Appt Date [facility] CONSULT FOR RT KNEE PAIN Created [address] [place] [address] [phone]
--- OUTSIDE RECORDS SUMMARY | 2021-06-22 11:10 | CCD ---
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 Name Role Phone Jerry Oneal MD Unavailable Unavailable Jerry Oneal MD Unavailable Unavailable Jerry Oneal MD Unavailable Unavailable Jerry Oneal MD Unavailable Unavailable Jerry Oneal MD Unavailable Unavailable Jerry Oneal MD Unavailable Unavailable Jerry Oneal MD Unavailable Unavailable Jerry Oneal MD Unavailable Unavailable Jerry Oneal MD Unavailable Unavailable Jerry Oneal MD Unavailable Unavailable Jerry Oneal MD Unavailable Unavailable Jerry Oneal MD Unavailable Unavailable Jerry Oneal MD Unavailable Unavailable Jerry Oneal MD Unavailable Unavailable Jerry Oneal MD Unavailable Unavailable Jerry Oneal MD Unavailable Unavailable Jerry Oneal MD Unavailable Unavailable Jerry Oneal MD Unavailable Unavailable Jerry Oneal MD Unavailable Unavailable Jerry Oneal MD Unavailable Unavailable Jerry Oneal MD Unavailable Unavailable Jerry Oneal MD Unavailable Unavailable Jerry Oneal MD Unavailable Unavailable Jerry Oneal MD Unavailable Unavailable Kimmy, S Dar MD Unavailable Unavailable Kimmy, S Dar MD Unavailable Unavailable Kimmy, S Dar MD Unavailable Unavailable Kimmy, S Dar MD Unavailable Unavailable Kimmy, S Dar MD Unavailable Unavailable Kimmy, S Dar MD Unavailable Unavailable Kimmy, S Dar MD Unavailable Unavailable Kimmy, S Dar MD Unavailable Unavailable Kimmy, S Dar MD Unavailable Unavailable Kimmy, S Dar MD Unavailable Unavailable Kimmy, S Dar MD Unavailable Unavailable Kimmy, S Dar MD Unavailable Unavailable Kimmy, S Dar MD Unavailable Unavailable Kimmy, S Dar MD Unavailable Unavailable Kimmy, S Dar MD Unavailable Unavailable Kimmy, S Dar MD Unavailable Unavailable Kimmy, S Dar MD Unavailable Unavailable Kimmy, S Dar MD Unavailable Unavailable Kimmy, S Dar MD Unavailable Unavailable Kimmy, S Dar MD Unavailable Unavailable Kimmy, S Dar MD Unavailable Unavailable Kimmy, S Dar MD Unavailable Unavailable Kimmy, S Dar MD Unavailable Unavailable Kimmy, S Dar MD Unavailable Unavailable Kimmy, S Dar MD Unavailable Unavailable Kimmy, S Dar MD Unavailable Unavailable TALLARICO, A HELADIO MD Unavailable Unavailable TALLARICO, A HELADIO MD Unavailable Unavailable TALLARICO, A HELADIO MD Unavailable Unavailable TALLARICO, A HELADIO MD Unavailable Unavailable TALLARICO, A HELADIO MD Unavailable Unavailable TALLARICO, A HELADIO MD Unavailable Unavailable TALLARICO, A HELADIO MD Unavailable Unavailable TALLARICO, A HELADIO MD Unavailable Unavailable TALLARICO, A HELADIO MD Unavailable Unavailable TALLARICO, A HELADIO MD Unavailable Unavailable TALLARICO, A HELADIO MD Unavailable Unavailable TALLARICO, A HELADIO MD Unavailable Unavailable TALLARICO, A HELADIO MD Unavailable Unavailable TALLARICO, A HELADIO MD Unavailable Unavailable TALLARICO, A HELADIO MD Unavailable Unavailable TALLARICO, A HELADIO MD Unavailable Unavailable TALLARICO, A HELADIO MD Unavailable Unavailable TALLARICO, A HELADIO MD Unavailable Unavailable TALLARICO, A HELADIO MD Unavailable Unavailable TALLARICO, A HELADIO MD Unavailable Unavailable TALLARICO, A HELADIO MD Unavailable Unavailable TALLARICO, A HELADIO MD Unavailable Unavailable TALLARICO, A HELADIO MD Unavailable Unavailable TALLARICO, A HELADIO MD Unavailable Unavailable TALLARICO, A HELADIO MD Unavailable Unavailable TALLARICO, A HELADIO MD Unavailable Unavailable TALLARICO, A HELADIO MD Unavailable Unavailable TALLARICO, A HELADIO MD Unavailable Unavailable TALLARICO, A HELADIO MD Unavailable Unavailable TALLARICO, A HELADIO MD Unavailable Unavailable TALLARICO, A HELADIO MD Unavailable Unavailable TALLARICO, A HELADIO MD Unavailable Unavailable TALLARICO, A HELADIO MD Unavailable Unavailable TALLARICO, A HELADIO MD Unavailable Unavailable TALLARICO, A HELADIO MD Unavailable Unavailable TALLARICO, A HELADIO MD Unavailable Unavailable TALLARICO, A HELADIO MD Unavailable Unavailable TALLARICO, A HELADIO MD Unavailable Unavailable TALLARICO, A HELADIO MD Unavailable Unavailable TALLARICO, A HELADIO MD Unavailable Unavailable TALLARICO, A HELADIO MD Unavailable Unavailable TALLARICO, A HELADIO MD Unavailable Unavailable TALLARICO, A HELADIO MD Unavailable Unavailable TALLARICO, A HELADIO MD Unavailable Unavailable TALLARICO, A HELADIO MD Unavailable Unavailable TALLARICO, A HELADIO MD Unavailable Unavailable TALLARICO, A HELADIO MD Unavailable Unavailable TALLARICO, A HELADIO MD Unavailable Unavailable TALLARICO, A HELADIO MD Unavailable Unavailable TALLARICO, A HELADIO MD Unavailable Unavailable TALLARICO, A HELADIO MD Unavailable Unavailable [place] Clarke MD Unavailable Unavailable Boston Clarke MD Unavailable Unavailable Boston Clarke MD Unavailable Unavailable Boston Clarke MD Unavailable Unavailable Boston Clarke MD Unavailable Unavailable Boston Clarke MD Unavailable Unavailable Boston Clarke MD Unavailable Unavailable Boston Clarke MD Unavailable Unavailable Boston Clarke MD Unavailable Unavailable Boston Clarke MD Unavailable Unavailable Boston Clarke MD Unavailable Unavailable Boston Clarke MD Unavailable Unavailable Boston Clarke MD Unavailable Unavailable [place] Clarke MD Unavailable Unavailable [place] Clarke MD Unavailable Unavailable [place] Clarke MD Unavailable Unavailable [place] Clarke MD Unavailable Unavailable [place] Clarke MD Unavailable Unavailable [place] Clarke MD Unavailable Unavailable Boston Clarke MD Unavailable Unavailable Boston Clarke MD Unavailable Unavailable Boston Clarke MD Unavailable Unavailable Boston Clarke MD Unavailable Unavailable Boston Clarke MD Unavailable Unavailable Boston Clarke MD Unavailable Unavailable [place] Clarke MD Unavailable Unavailable Boston Clarke MD Unavailable Unavailable Boston Clarke MD Unavailable Unavailable Boston Clarke MD Unavailable Unavailable Boston Clarke MD Unavailable Unavailable Boston Clarke MD Unavailable Unavailable Boston Clarke MD Unavailable Unavailable Boston Clarke MD Unavailable Unavailable Boston Clarke MD Unavailable Unavailable Boston Clarke MD Unavailable Unavailable Boston Clarke MD Unavailable Unavailable Boston Clarke MD Unavailable Unavailable Boston Clarke MD Unavailable Unavailable Boston Clarke MD Unavailable Unavailable Boston Clarke MD Unavailable Unavailable Boston Clarke MD Unavailable Unavailable Boston Clarke MD Unavailable Unavailable Boston Clarke MD Unavailable Unavailable Boston Clarke MD Unavailable Unavailable Boston Clarke MD Unavailable Unavailable Boston Clarke MD Unavailable Unavailable Boston Clarke MD Unavailable Unavailable [place] Clarke MD Unavailable Unavailable [place] Clarke MD Unavailable Unavailable [place] Clarke MD Unavailable Unavailable [place] Clarke MD Unavailable Unavailable [place] Clarke MD Unavailable Unavailable [place] Clarke MD Unavailable Unavailable [place] Clarke MD Unavailable Unavailable [place] Clarke MD Unavailable Unavailable [place] Clarke MD Unavailable Unavailable [place] Clarke MD Unavailable Unavailable [place] Clarke MD Unavailable Unavailable [place] Clarke MD Unavailable Unavailable [place] Clarke MD Unavailable Unavailable [place] Clarke MD Unavailable Unavailable [place] Clarke MD Unavailable Unavailable [place] Clarke MD Unavailable Unavailable Boston Clarke MD Unavailable Unavailable [place] Clarke MD Unavailable Unavailable [place] Clarke MD Unavailable Unavailable [place] Clarke MD Unavailable Unavailable [place] Clarke MD Unavailable Unavailable Boston Clarke MD Unavailable Unavailable Boston Clarke MD Unavailable Unavailable Boston Clarke MD Unavailable Unavailable Boston Clarke MD Unavailable Unavailable Boston Clarke MD Unavailable Unavailable Boston Clarke MD Unavailable Unavailable Boston Clarke MD Unavailable Unavailable [place] Clarke MD Unavailable Unavailable [place] Clarke MD Unavailable Unavailable [place] Clarke MD Unavailable Unavailable [place] Clarke MD Unavailable Unavailable [place] Clarke MD Unavailable Unavailable Boston Clarke MD Unavailable Unavailable Boston Clarke MD Unavailable Unavailable MAJAK, R BRIANA DPM Unavailable Unavailable MAJAK, R BRIANA DPM Unavailable Unavailable MAJAK, R BRIANA DPM Unavailable Unavailable MAJAK, R BRIANA DPM Unavailable Unavailable MAJAK, R BRIANA DPM Unavailable Unavailable MAJAK, R BRIANA DPM Unavailable Unavailable MAJAK, R BRIANA DPM Unavailable Unavailable MAJAK, R BRIANA DPM Unavailable Unavailable MAJAK, R BRIANA DPM Unavailable Unavailable MAJAK, R BRIANA DPM Unavailable Unavailable MAJAK, R BRIANA DPM Unavailable Unavailable MAJAK, R BRIANA DPM Unavailable Unavailable MAJAK, R BRIANA DPM Unavailable Unavailable MAJAK, R BRIANA DPM Unavailable Unavailable MAJAK, R BRIANA DPM Unavailable Unavailable MAJAK, R BRIANA DPM Unavailable Unavailable MAJAK, R BRIANA DPM Unavailable Unavailable MAJAK, R BRIANA DPM Unavailable Unavailable MAJAK, R BRIANA DPM Unavailable Unavailable MAJAK, R BRIANA DPM Unavailable Unavailable MAJAK, R BRIANA DPM Unavailable Unavailable MAJAK, R BRIANA DPM Unavailable Unavailable MAJAK, R BRIANA DPM Unavailable Unavailable MAJAK, R BRIANA DPM Unavailable Unavailable MAJAK, R BRIANA DPM Unavailable Unavailable MAJAK, R BRIANA DPM Unavailable Unavailable MAJAK, R BRIANA DPM Unavailable Unavailable MAJAK, R BRIANA DPM Unavailable Unavailable MAJAK, R BRIANA DPM Unavailable Unavailable MAJAK, R BRIANA DPM Unavailable Unavailable MAJAK, R BRIANA DPM Unavailable Unavailable Lydia Malone MD Unavailable Unavailable [place] m[place] MD Unavailable Unavailable KiraLydia mccrary MD Unavailable Unavailable KiraLydia mccrary MD Unavailable Unavailable [place] mcc[place] MD Unavailable Unavailable [place] mcc[place] MD Unavailable Unavailable [place] mcc[place] MD Unavailable Unavailable [place] mcc[place] MD Unavailable Unavailable [place] mcc[place] MD Unavailable Unavailable [place] mcc[place] MD Unavailable Unavailable KiraLydia mccrary MD Unavailable Unavailable KiraLydia mccrary MD Unavailable Unavailable [place] mcc[place] MD Unavailable Unavailable KiraLydia mccrary MD Unavailable Unavailable KiraLydia mccrary MD Unavailable Unavailable KiraLydia mccrary MD Unavailable Unavailable KiraLydia mccrary MD Unavailable Unavailable [place] mcc[place] MD Unavailable Unavailable KiraLydia mccrary MD Unavailable Unavailable KiraLydia mccrary MD Unavailable Unavailable KiraLydia mccrary MD Unavailable Unavailable KiraLydia mccrary MD Unavailable Unavailable [place] MD Unavailable Unavailable [place] mcc[place] MD Unavailable Unavailable [place] MD Unavailable Unavailable KiraLydia MD Unavailable Unavailable [place] mcc[place] MD Unavailable Unavailable [place] mcc[place] MD Unavailable Unavailable [place] mcc[place] MD Unavailable Unavailable KiraLydia MD Unavailable Unavailable KiraLydia MD Unavailable Unavailable [place] MD Unavailable Unavailable KiraLydia MD Unavailable Unavailable [place] MD Unavailable Unavailable [place] MD Unavailable Unavailable KiraLdyia MD Unavailable Unavailable KiraLydia MD Unavailable Unavailable [place] MD Unavailable Unavailable [place] MD Unavailable Unavailable KiraLydia MD Unavailable Unavailable KiraLydia MD Unavailable Unavailable KiraLydia MD Unavailable Unavailable [place] MD Unavailable Unavailable [place] MD Unavailable Unavailable KiraLydia MD Unavailable Unavailable KiraLydia MD Unavailable Unavailable [place] MD Unavailable Unavailable KiraLydia MD Unavailable Unavailable [place] MD Unavailable Unavailable [place] MD Unavailable Unavailable [place] MD Unavailable Unavailable [place] MD Unavailable Unavailable KiraLydia MD Unavailable Unavailable [place] MD Unavailable Unavailable KiraLydia MD Unavailable Unavailable KiraLydia MD Unavailable Unavailable KiraLydia MD Unavailable Unavailable KiraLydia MD Unavailable Unavailable [place] MD Unavailable Unavailable KiraLydia MD Unavailable Unavailable [place] MD Unavailable Unavailable KiraLydia MD Unavailable Unavailable [place] MD Unavailable Unavailable [place] MD Unavailable Unavailable [place] MD Unavailable Unavailable KiraLydia MD Unavailable Unavailable [place] MD Unavailable Unavailable KiraLydia MD Unavailable Unavailable KiraLydia mccrary MD Unavailable Unavailable [place] mcc[place] MD Unavailable Unavailable [place] MD Unavailable Unavailable KiraLydia mccrary MD Unavailable Unavailable KiraLydia MD Unavailable Unavailable [place] MD Unavailable Unavailable [place] MD Unavailable Unavailable [place] mcc[place] MD Unavailable Unavailable KiraLydia MD Unavailable Unavailable [place] MD Unavailable Unavailable [place] MD Unavailable Unavailable [place] MD Unavailable Unavailable KiraLydia MD Unavailable Unavailable [place] MD Unavailable Unavailable [place] MD Unavailable Unavailable KiraLydia mccrary MD Unavailable Unavailable KiraLydia MD Unavailable Unavailable KiraLydia MD Unavailable Unavailable Star Kat BLANKMAKER Unavailable Unavailable LePStar caceres BLANKMAKER Unavailable Unavailable LePine, M Jhoana BLANKMAKER Unavailable Unavailable LePine, M Jhoana BLANKMAKER Unavailable Unavailable LePine, M Jhoana BLANKMAKER Unavailable Unavailable LePine, M Jhoana BLANKMAKER Unavailable Unavailable LePine, M Jhoana BLANKMAKER Unavailable Unavailable LePine, M Jhoana BLANKMAKER Unavailable Unavailable LePine, M Jhoana BLANKMAKER Unavailable Unavailable LePine, M Jhoana BLANKMAKER Unavailable Unavailable LePine, M Jhoana BLANKMAKER Unavailable Unavailable LePine, M Jhoana BLANKMAKER Unavailable Unavailable LePine, M Jhoana BLANKMAKER Unavailable Unavailable LePine, M Jhoana BLANKMAKER Unavailable Unavailable LePine, M Jhoana BLANKMAKER Unavailable Unavailable LePine, M Jhoana BLANKMAKER Unavailable Unavailable LePine, M Jhoana BLANKMAKER Unavailable Unavailable LePine, M Jhoana BLANKMAKER Unavailable Unavailable LePine, M Jhoana BLANKMAKER Unavailable Unavailable LePine, M Jhoana BLANKMAKER Unavailable Unavailable LePine, M Jhoana BLANKMAKER Unavailable Unavailable LePine, M Jhoana BLANKMAKER Unavailable Unavailable LePine, M Jhoana BLANKMAKER Unavailable Unavailable LePine, M Jhoana BLANKMAKER Unavailable Unavailable LePine, M Jhoana BLANKMAKER Unavailable Unavailable LePine, M Jhoana BLANKMAKER Unavailable Unavailable LePine, M Jhoana BLANKMAKER Unavailable Unavailable LePine, M Jhoana BLANKMAKER Unavailable Unavailable LePine, M Jhoana BLANKMAKER Unavailable Unavailable LePine, M Jhoana BLANKMAKER Unavailable Unavailable LePine, M Jhoana BLANKMAKER Unavailable Unavailable LePine, M Jhoana BLANKMAKER Unavailable Unavailable LePine, M Jhoana BLANKMAKER Unavailable Unavailable LePine, M Jhoana BLANKMAKER Unavailable Unavailable LePine, M Jhoana BLANKMAKER Unavailable Unavailable LePine, M Jhoana BLANKMAKER Unavailable Unavailable LePine, M Jhoana BLANKMAKER Unavailable Unavailable LePine, M Jhoana BLANKMAKER Unavailable Unavailable LePine, M Jhoana BLANKMAKER Unavailable Unavailable LePine, M Jhoana BLANKMAKER Unavailable Unavailable LePine, M Jhoana BLANKMAKER Unavailable Unavailable LePine, M Jhoana BLANKMAKER Unavailable Unavailable LePine, M Jhoana BLANKMAKER Unavailable Unavailable LePine, M Jhoana BLANKMAKER Unavailable Unavailable LePine, M Jhoana BLANKMAKER Unavailable Unavailable LePine, M Jhoana BLANKMAKER Unavailable Unavailable LePine, M Jhoana BLANKMAKER Unavailable Unavailable LePine, M Jhoana BLANKMAKER Unavailable Unavailable LePine, M Jhoana BLANKMAKER Unavailable Unavailable LePine, M Jhoana BLANKMAKER Unavailable Unavailable LePine, M Jhoana BLANKMAKER Unavailable Unavailable LePine, M Jhoana BLANKMAKER Unavailable Unavailable LePine, M Jhoana BLANKMAKER Unavailable Unavailable LePine, M Jhoana BLANKMAKER Unavailable Unavailable LePine, M Jhoana BLANKMAKER Unavailable Unavailable LePine, M Jhoana BLANKMAKER Unavailable Unavailable Malachi II, C Albert RPA-C Unavailable Unavailable Malachi II, C Albert RPA-C Unavailable Unavailable Malachi II, C Albert RPA-C Unavailable Unavailable Malachi II, C Albert RPA-C Unavailable Unavailable Malachi II, C Albert RPA-C Unavailable Unavailable Malachi II, C Albert RPA-C Unavailable Unavailable Malachi II, C Albert RPA-C Unavailable Unavailable Malachi II, C Albert RPA-C Unavailable Unavailable Malachi II, C Albert RPA-C Unavailable Unavailable Malachi II, C Albert RPA-C Unavailable Unavailable Malachi II, C Albert RPA-C Unavailable Unavailable Malachi II, C Albert RPA-C Unavailable Unavailable Malachi II, C Albert RPA-C Unavailable Unavailable Malachi II, C Albert RPA-C Unavailable Unavailable Malachi II, C Albert RPA-C Unavailable Unavailable Malachi II, C Albert RPA-C Unavailable Unavailable Malachi II, C Albert RPA-C Unavailable Unavailable Malachi II, C Albert RPA-C Unavailable Unavailable Malachi II, C Albert RPA-C Unavailable Unavailable Malachi II, C Albert RPA-C Unavailable Unavailable Malachi II, C Albert RPA-C Unavailable Unavailable Malachi II, C Albert RPA-C Unavailable Unavailable Malachi II, C Albert RPA-C Unavailable Unavailable Malachi II, C Albert RPA-C Unavailable Unavailable Malachi II, C Albert RPA-C Unavailable Unavailable Malachi II, C Albert RPA-C Unavailable Unavailable Malachi II, C Albert RPA-C Unavailable Unavailable Malachi II, C Albert RPA-C Unavailable Unavailable Malachi II, C Albert RPA-C Unavailable Unavailable Malachi II, C Albert RPA-C Unavailable Unavailable Malachi II, C Albert RPA-C Unavailable Unavailable Malachi II, C Albert RPA-C Unavailable Unavailable Malachi II, C Albert RPA-C Unavailable Unavailable Malachi II, C Albert RPA-C Unavailable Unavailable Malachi II, C Albert RPA-C Unavailable Unavailable Malachi II, C Albert RPA-C Unavailable Unavailable Malachi II, C Albert RPA-C Unavailable Unavailable Malachi II, C Albert RPA-C Unavailable Unavailable Gary Koroma MD Unavailable Unavailable Gary Koroma MD Unavailable Unavailable Gary Koroma MD Unavailable Unavailable Gary Koroma MD Unavailable Unavailable Gary Koroma MD Unavailable Unavailable Gary Koroma MD Unavailable Unavailable Gary Koroma MD Unavailable Unavailable Gary Koroma MD Unavailable Unavailable Gary Koroma MD Unavailable Unavailable Gary Koroma MD Unavailable Unavailable Gary Koroma MD Unavailable Unavailable Gary Koroma MD Unavailable Unavailable Gary Koroma MD Unavailable Unavailable Gary Koroma MD Unavailable Unavailable Gary Koroma MD Unavailable Unavailable Gary Koroma MD Unavailable Unavailable Gary Koroma MD Unavailable Unavailable Gary Koroma MD Unavailable Unavailable Gary Koroma MD Unavailable Unavailable Gary Koroma MD Unavailable Unavailable Gary Koroma MD Unavailable Unavailable Gary Koroma MD Unavailable Unavailable Gary Koroma MD Unavailable Unavailable Gary Koroma MD Unavailable Unavailable Gary Koroma MD Unavailable Unavailable Gary Koroma MD Unavailable Unavailable Gary Koroma MD Unavailable Unavailable Gary Koroma MD Unavailable Unavailable Gary Koroma MD Unavailable Unavailable Gary Koroma MD Unavailable Unavailable Gary Koroma MD Unavailable Unavailable Gary Koroma MD Unavailable Unavailable Gary Koroma MD Unavailable Unavailable Gary Koroma MD Unavailable Unavailable Gary Koroma MD Unavailable Unavailable Gary Koroma MD Unavailable Unavailable Gary Koroma MD Unavailable Unavailable Gary Koroma MD Unavailable Unavailable Gary Koroma MD Unavailable Unavailable Gary Koroma MD Unavailable Unavailable Gary Koroma MD Unavailable Unavailable Gary Koroma MD Unavailable Unavailable Gary Koroma MD Unavailable Unavailable Gary Koroma MD Unavailable Unavailable Gary Koroma MD Unavailable Unavailable Gary Koroma MD Unavailable Unavailable Gary Koroma MD Unavailable Unavailable Gary Koroma MD Unavailable Unavailable Gary Koroma MD Unavailable Unavailable Gary Koroma MD Unavailable Unavailable Gary Koroma MD Unavailable Unavailable Gary Koroma MD Unavailable Unavailable Gary Koroma MD Unavailable Unavailable Gary Koroma MD Unavailable Unavailable Gary Koroma MD Unavailable Unavailable Gary Koroma MD Unavailable Unavailable Gary Koroma MD Unavailable Unavailable Gary Koroma MD Unavailable Unavailable LePine, M Jhoana BLANKMAKER Unavailable Unavailable LePine, M Jhoana BLANKMAKER Unavailable Unavailable LePine, M Jhoana BLANKMAKER Unavailable Unavailable LePine, M Jhoana BLANKMAKER Unavailable Unavailable LePine, M Jhoana BLANKMAKER Unavailable Unavailable LePine, M Jhoana BLANKMAKER Unavailable Unavailable LePine, M Jhoana BLANKMAKER Unavailable Unavailable LePine, M Jhoana BLANKMAKER Unavailable Unavailable LePine, M Jhoana BLANKMAKER Unavailable Unavailable LePine, M Jhoana BLANKMAKER Unavailable Unavailable LePine, M Jhoana BLANKMAKER Unavailable Unavailable LePine, M Jhoana BLANKMAKER Unavailable Unavailable LePine, M Jhoana BLANKMAKER Unavailable Unavailable LePine, M Jhoana BLANKMAKER Unavailable Unavailable LePine, M Jhoana BLANKMAKER Unavailable Unavailable LePine, M Jhoana BLANKMAKER Unavailable Unavailable LePine, M Jhoana BLANKMAKER Unavailable Unavailable LePine, M Jhoana BLANKMAKER Unavailable Unavailable LePine, M Jhoana BLANKMAKER Unavailable Unavailable LePine, M Jhoana BLANKMAKER Unavailable Unavailable LePine, M Jhoana BLANKMAKER Unavailable Unavailable LePine, M Jhoana BLANKMAKER Unavailable Unavailable LePine, M Jhoana BLANKMAKER Unavailable Unavailable LePine, M Jhoana BLANKMAKER Unavailable Unavailable LePine, M Jhoana BLANKMAKER Unavailable Unavailable LePine, M Jhoana BLANKMAKER Unavailable Unavailable LePine, M Jhoana BLANKMAKER Unavailable Unavailable LePine, M Jhoana BLANKMAKER Unavailable Unavailable LePine, M Jhoana BLANKMAKER Unavailable Unavailable LePine, M Jhoana BLANKMAKER Unavailable Unavailable LePine, M Jhoana BLANKMAKER Unavailable Unavailable LePine, M Jhoana BLANKMAKER Unavailable Unavailable LePine, M Jhoana BLANKMAKER Unavailable Unavailable LePine, M Jhoana BLANKMAKER Unavailable Unavailable LePine, M Jhoana BLANKMAKER Unavailable Unavailable LePine, M Jhoana BLANKMAKER Unavailable Unavailable LePine, M Jhoana BLANKMAKER Unavailable Unavailable LePine, M Jhoana BLANKMAKER Unavailable Unavailable LePine, M Jhoana BLANKMAKER Unavailable Unavailable LePine, M Jhoana BLANKMAKER Unavailable Unavailable LePine, M Jhoana BLANKMAKER Unavailable Unavailable LePine, M Jhoana BLANKMAKER Unavailable Unavailable LePine, M Jhoana BLANKMAKER Unavailable Unavailable LePine, M Jhoana BLANKMAKER Unavailable Unavailable LePine, M Jhoana BLANKMAKER Unavailable Unavailable LePine, M Jhoana BLANKMAKER Unavailable Unavailable LePine, M Jhoana BLANKMAKER Unavailable Unavailable LePine, M Jhoana BLANKMAKER Unavailable Unavailable LePine, M Jhoana BLANKMAKER Unavailable Unavailable LePine, M Jhoana BLANKMAKER Unavailable Unavailable LePine, M Jhoana BLANKMAKER Unavailable Unavailable LePine, M Jhoana BLANKMAKER Unavailable Unavailable LePine, M Jhoana BLANKMAKER Unavailable Unavailable LePine, M Jhoana BLANKMAKER Unavailable Unavailable LePine, M Jhoana BLANKMAKER Unavailable Unavailable LePine, M Jhoana BLANKMAKER Unavailable Unavailable Mikhail Houston MD Unavailable Unavailable Mikhail Houston MD Unavailable Unavailable Mikhail Houston MD Unavailable Unavailable Mikhail Houston MD Unavailable Unavailable Mikhail Houston MD Unavailable Unavailable Mikhail Houston MD Unavailable Unavailable Mikhail Houston MD Unavailable Unavailable Mikhail Houston MD Unavailable Unavailable Mikhail Houston MD Unavailable Unavailable Mikhail Houston MD Unavailable Unavailable Mikhail Houston MD Unavailable Unavailable Sonali ZENG MD Unavailable Unavailable Sonali ZENG MD Unavailable Unavailable Sonali ZENG MD Unavailable Unavailable Sonali ZENG MD Unavailable Unavailable KARRI, Sonali AVENDAÑO MD Unavailable Unavailable KARRI, Sonali AVENDAÑO MD Unavailable Unavailable KARRI, Sonali AVENDAÑO MD Unavailable Unavailable KARRI, Sonali AVENDAÑO MD Unavailable Unavailable KARRI, Sonali AVENDAÑO MD Unavailable Unavailable KARRI, Sonali AVENDAÑO MD Unavailable Unavailable KARRI, Sonali AVENDAÑO MD Unavailable Unavailable KARRI, Sonali AVENDAÑO MD Unavailable Unavailable KARRI, E KATERYNA HENAO Unavailable Unavailable KARRI, Sonali AVENDAÑO MD Unavailable Unavailable KARRI, E KATERYNA HENAO Unavailable Unavailable KARRI, Sonali AVENDAÑO MD Unavailable Unavailable KARRI, Sonali AVENDAÑO MD Unavailable Unavailable KARRI, Sonali AVENDAÑO MD Unavailable Unavailable KARRI, E KATERYNA HENAO Unavailable Unavailable KARRI, E KATERYNA HENAO Unavailable Unavailable KARRI, E KATERYNA HENAO Unavailable Unavailable KARRI, Sonali AVENDAÑO MD Unavailable Unavailable KARRI, Sonali AVENDAÑO MD Unavailable Unavailable KARRI, Sonali AVENDAÑO MD Unavailable Unavailable KARRI, Sonali AVNEDAÑO MD Unavailable Unavailable KARRI, Sonali AVENDAÑO MD Unavailable Unavailable KARRI, Sonali AVENDAÑO MD Unavailable Unavailable KARRI, Sonali AVENDAÑO MD Unavailable Unavailable KARRI, Soanli AVENDAÑO MD Unavailable Unavailable KARRI, Sonali AVENDAÑO MD Unavailable Unavailable KARRI, Sonali AVENDAÑO MD Unavailable Unavailable KARRI, Sonali AVENDAÑO MD Unavailable Unavailable KARRI, Sonali AVENDAÑO MD Unavailable Unavailable KARRI, Sonali AVENDAÑO MD Unavailable Unavailable KARRI, Sonali AVENDAÑO MD Unavailable Unavailable KARRI, Sonali AVENDAÑO MD Unavailable Unavailable KARRI, Sonali AVENDAÑO MD Unavailable Unavailable KARRI, Sonali AVENDAÑO MD Unavailable Unavailable KARRI, Sonali AVENDAÑO MD Unavailable Unavailable KARRI, Sonali AVENDAÑO MD Unavailable Unavailable KARRI, Sonali AVENDAÑO MD Unavailable Unavailable KARRI, Sonali AVENDAÑO MD Unavailable Unavailable KARRI, Sonali AVENDAÑO MD Unavailable Unavailable KARRI, Sonali AVENDAÑO MD Unavailable Unavailable KARRI, Sonali AVENDAÑO MD Unavailable Unavailable KARRI, Sonali AVENDAÑO MD Unavailable Unavailable KARRI, Sonali AVENDAÑO MD Unavailable Unavailable KARRI, Sonali AVENDAÑO MD Unavailable Unavailable KARRI, Sonali AVENDAÑO MD Unavailable Unavailable KARRI, Sonali AVENDAÑO MD Unavailable Unavailable KARRI, Sonali AVENDAÑO MD Unavailable Unavailable KARRI, Sonali AVENDAÑO MD Unavailable Unavailable KARRI, Sonali AVENDAÑO MD Unavailable Unavailable KARRI, Sonali AVENDAÑO MD Unavailable Unavailable KARRI, Sonali AVENDAÑO MD Unavailable Unavailable KARRI, Sonali AVENDAÑO MD Unavailable Unavailable KARRI, Sonali AVENDAÑO MD Unavailable Unavailable KARRI, Sonali AVENDAÑO MD Unavailable Unavailable KARRI, Sonali AVENDAÑO MD Unavailable Unavailable KARRI, Sonali AVENDAÑO MD Unavailable Unavailable KARRI, Sonali AVENDAÑO MD Unavailable Unavailable KARRI, Sonali AVENDAÑO MD Unavailable Unavailable KARRI, Sonali AVENDAÑO MD Unavailable Unavailable KARRI, Sonali AVENDAÑO MD Unavailable Unavailable KARRI, Sonali AVENDAÑO MD Unavailable Unavailable KARRI, Sonali AVENDAÑO MD Unavailable Unavailable KARRI, Sonali AVENDAÑO MD Unavailable Unavailable KARRI, Sonali AVENDAÑO MD Unavailable Unavailable KARRI, E KATERYNA HENAO Unavailable Unavailable KARRI, E KATERYNA HENAO Unavailable Unavailable KARRI, E KATERYNA HENAO Unavailable Unavailable KARRI, Sonali AVENDAÑO MD Unavailable Unavailable KARRI, Sonali AVENDAÑO MD Unavailable Unavailable KARRI, Sonali AVENDAÑO MD Unavailable Unavailable KARRI, Sonali AVENDAÑO MD Unavailable Unavailable KARRI, Sonali AVENDAÑO MD Unavailable Unavailable KARRI, Sonali AVENDAÑO MD Unavailable Unavailable KARRI, Sonali AVENDAÑO MD Unavailable Unavailable KARRI, Sonali AVENDAÑO MD Unavailable Unavailable KARRI, Sonali AVENDAÑO MD Unavailable Unavailable KARRI, Sonali AVENDAÑO MD Unavailable Unavailable KARRI, Sonali AVENDAÑO MD Unavailable Unavailable KARRI, Sonali AVENDAÑO MD Unavailable Unavailable KARRI, Sonali AVENDAÑO MD Unavailable Unavailable KARRI, Sonali AVENDAÑO MD Unavailable Unavailable KARRI, Sonali AVENDAÑO MD Unavailable Unavailable KARRI, Sonali AVENDAÑO MD Unavailable Unavailable KARRI, Sonali AVENDAÑO MD Unavailable Unavailable KARRI, Sonali AVENDAÑO MD Unavailable Unavailable KARRI, Sonali AVENDAÑO MD Unavailable Unavailable KARRI, Sonali AVENDAÑO MD Unavailable Unavailable KARRI, Sonali AVENDAÑO MD Unavailable Unavailable KARRI, Sonali AVENDAÑO MD Unavailable Unavailable KARRI, Sonali AVENDAÑO MD Unavailable Unavailable KARRI, Sonali AVENDAÑO MD Unavailable Unavailable KARRI, Sonali AVENDAÑO MD Unavailable Unavailable KARRI, Sonali AVENDAÑO MD Unavailable Unavailable KARRI, Sonali AVENDAÑO MD Unavailable Unavailable Santo GODWIN MD Unavailable Unavailable Santo GODWIN MD Unavailable Unavailable Santo GODWIN MD Unavailable Unavailable Santo GODWIN MD Unavailable Unavailable Santo GODWIN MD Unavailable Unavailable TATO, A JOSE MD Unavailable Unavailable TATO, A JOSE MD Unavailable Unavailable TATO, A JOSE MD Unavailable Unavailable TATO, A JOSE MD Unavailable Unavailable TATO, A JOSE MD Unavailable Unavailable TATO, A JOSE MD Unavailable Unavailable TATO, A JOSE MD Unavailable Unavailable TATO, A JOSE MD Unavailable Unavailable TATO, A JOSE MD Unavailable Unavailable TATO, A JOSE MD Unavailable Unavailable TATO, A JOSE MD Unavailable Unavailable TATO, A JOSE MD Unavailable Unavailable TATO, A JOSE MD Unavailable Unavailable TATO, A JOSE MD Unavailable Unavailable TATO, A JOSE MD Unavailable Unavailable TATO, A JOSE MD Unavailable Unavailable TATO, A JOSE MD Unavailable Unavailable TATO, A JOSE MD Unavailable Unavailable TATO, A JOSE MD Unavailable Unavailable TATO, A JOSE MD Unavailable Unavailable TATO, A JOSE MD Unavailable Unavailable TATO, A JOSE MD Unavailable Unavailable TATO, A JOSE MD Unavailable Unavailable TATO, A JOSE MD Unavailable Unavailable TATO, A JOSE MD Unavailable Unavailable TATO, A JOSE MD Unavailable Unavailable TATO, A JOSE MD Unavailable Unavailable TATO, A JOSE MD Unavailable Unavailable TATO, A JOSE MD Unavailable Unavailable TATO, A JOSE MD Unavailable Unavailable TATO, A JOSE MD Unavailable Unavailable TATO, A JOSE MD Unavailable Unavailable TATO, A JOSE MD Unavailable Unavailable TATO, A JOSE MD Unavailable Unavailable TATO, A JOSE MD Unavailable Unavailable TATO, A JOSE MD Unavailable Unavailable TATO, A JOSE MD Unavailable Unavailable TATO, A JOSE MD Unavailable Unavailable TATO, A JOSE MD Unavailable Unavailable TATO, A JOSE MD Unavailable Unavailable TATO, A JOSE MD Unavailable Unavailable TATO, A JOSE MD Unavailable Unavailable TATO, A JOSE MD Unavailable Unavailable TATO, A JOSE MD Unavailable Unavailable TATO, A JOSE MD Unavailable Unavailable TATO, A JOSE MD Unavailable Unavailable TATO, A JOSE MD Unavailable Unavailable TATO, A JOSE MD Unavailable Unavailable TATO, A JOSE MD Unavailable Unavailable TATO, A JOSE MD Unavailable Unavailable TATO, A JOSE MD Unavailable Unavailable TATO, A JOSE MD Unavailable Unavailable TATO, A JOSE HENAO Unavailable Unavailable TATO, A JOSE HENAO Unavailable Unavailable Thurston, C Nikia MD Unavailable Unavailable Thurston, C Nikia MD Unavailable Unavailable Thurston, C Nikia MD Unavailable Unavailable Thurston, C Nikia MD Unavailable Unavailable Thurston, C Nikia MD Unavailable Unavailable Thurston, C Nikia MD Unavailable Unavailable Thurston, C Nikia MD Unavailable Unavailable Thurston, C Nikia MD Unavailable Unavailable Thurston, C Nikia MD Unavailable Unavailable Thurston, C Nikia MD Unavailable Unavailable Thurston, C Nikia MD Unavailable Unavailable Thurston, C Nikia MD Unavailable Unavailable Thurston, C Nikia MD Unavailable Unavailable Thurston, C Nikia MD Unavailable Unavailable Thurston, C Nikia MD Unavailable Unavailable Thurston, C Nikia MD Unavailable Unavailable Thurston, C Nikia MD Unavailable Unavailable Thurston, C Nikia MD Unavailable Unavailable Thurston, C Nikia MD Unavailable Unavailable Thurston, C Nikia MD Unavailable Unavailable Thurston, C Nikia MD Unavailable Unavailable Thurston, C Nikia MD Unavailable Unavailable Thurston, C Nikia MD Unavailable Unavailable Thurston, C Nikia MD Unavailable Unavailable Thurston, C Nikia MD Unavailable Unavailable Re-disclosure Warning The records that you are about to access may contain information from federally-assisted alcohol or drug abuse programs. If such information is present, then the following federally mandated warning applies: This information has been disclosed to you from records protected by federal confidentiality rules (42 CFR part 2). The federal rules prohibit you from making any further disclosure of this information unless further disclosure is expressly permitted by the written consent of the person to whom it pertains or as otherwise permitted by 42 CFR part 2. A general authorization for the release of medical or other information is NOT sufficient for this purpose. The Federal rules restrict any use of the information to criminally investigate or prosecute any alcohol or drug abuse patient.The records that you are about to access may contain highly sensitive health information, the redisclosure of which is protected by Article 27-F of the [facility] Public Health law. If you continue you may have access to information: Regarding HIV / AIDS; Provided by facilities licensed or operated by the [facility] Office of Mental Health; or Provided by the [facility] Office for People With Developmental Disabilities. If such information is present, then the following [facility] mandated warning applies: This information has been disclosed to you from confidential records which are protected by state law. State law prohibits you from making any further disclosure of this information without the specific written consent of the person to whom it pertains, or as otherwise permitted by law. Any unauthorized further disclosure in violation of state law may result in a fine or nursing home sentence or both. A general authorization for the release of medical or other information is NOT sufficient authorization for further disc losure. Family History Family Member Name Family Member Gender Family Member Status Date o f Status Description Data Source(s) Unknown Male Problem [facility] ([facility]) Unknown Male Problem [facility] ([facility]) Unknown Unknown Problem [facility] ) Unknown Male Problem [facility] ([facility] () Encounters Encounter Providers Location Date Indications Data Source(s ) Outpatient Attender: Dar Oneal MD Main Office 06/09/2021 02:00:00 PM EDT [facility] ([facility]) Outpatient [email or web address] 05/21/2021 04:14:10 PM EDT [facility] Outpatient Attender: Jhoana Vegas 05/14 02:40:00 PM EDT [facility] ([facility] ) Outpatient Attender: Jhoana Vegas 04/30 01:40:00 PM EDT [facility] ([facility] ) Outpatient Attender: Albert Ly IIReferrer: KATERYNA Freeman MD 04/30/2021 01:06:02 PM EDT [facility] Outpatient Attender: Nikia Thurston MD 0 04/23/2021 04:42:21 PM EDT - 04/23/2021 05:46:55 PM EDT [facility] ([facility]) Outpatient Attender: Gary VAUGHN.HARLAN-SJP.HARLAN 03/22 12:00:00 AM EDT - 04/06/2021 02:15:39 PM EDT [facility] Outpatient Attender: Albert Ly IIReferrer: KATERYNA Freeman MD 02/25/2021 03:14:08 PM EDT [facility] Outpatient Attender: Jhoana Vegas 02/24 01:00:00 PM EDT [facility] ([facility] ) Outpatient SJP.[email or web address] 02/14/2021 11:35:21 AM EDT [facility] Outpatient [email or web address] 02/11/2021 12:00:00 AM EDT [facility] Outpatient Attender: BRIANA MONDRAGON [facility] Office 08/2020 01:30:00 PM EDT [facility] ([facility] OFFICE OUTPATIENT VISIT 15 MINUTES Attender: Andrei Houston MD P hysical Therapy 01/09/2021 11:00:00 AM EDT [facility] ([facility]) Outpatient Attender: BRIANA MONDRAGON [facility] Office 12/20 01:15:00 PM EDT [facility] ([facility] Outpatient Attender: Jhoana Kat RNPReferrer: Jhoana NEAL 12/26/2020 02:51:00 PM EDT - 12/26/2020 02:51:00 PM EDT [facility] Outpatient Attender: Jhoana Vegas 12/26 11:40:00 AM EDT [facility] ([facility] ) Recurring Patient Attender: Albert Ly IIReferrer: KATERYNA AN MD 12/26/2020 09:35:07 AM EDT [facility] Outpatient Attender: Albert Ly IIReferrer: Jac alas MD 12/25/2020 02:08:04 PM EDT [facility] Outpatient Attender: Gary Koroma MD [email or web address].[email or web address] 11/20 02:05:45 PM EDT - 12/02/2020 04:29:33 PM EDT [facility] Outpatient [email or web address] 11/13/2020 11:39:50 AM EDT [facility] Outpatient Attender: Albert Ly IIReferrer: Jac alas MD 10/20/2020 10:14:00 AM EST [facility] Outpatient Attender: JOSE GODWIN MD 10/14/2020 12:00:0 0 AM [facility] Outpatient Attender: Jhoana Vegas 10/07 01:00:00 PM EST [facility] ([facility] ) Outpatient Attender: Jhoana Vegas 09/05 02:20:00 PM EST [facility] ([facility] ) Outpatient [email or web address] 08/08/2020 09:33:28 AM EST [facility] Outpatient Attender: Albert Ly IIReferrer: Jac alas MD 08/06/2020 05:03:44 PM [facility] Outpatient Attender: Boston Clarke MD [facility] 07/15/2020 11:30:00 AM EST [facility] ([facility] Outpatient Attender: JOSE GODWIN MD [id number] 12:00:00 AM EST - 07/15/2020 04:23:16 PM EST 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 [facility] 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 Outpatient Attender: BRIANA MONDRAGON [facility] 06/23 01:30:00 PM EST [facility] ([facility] Outpatient Attender: JOSE GODWIN MD [id number] 10/2019 12:00:00 AM EST - 06/24/2020 03:15:53 PM [facility] Outpatient Referrer: JOSE GODWIN MD 06/24/2020 12:00:0 0 AM [facility] Outpatient Attender: BRIANA MONDRAGON [facility] 05/23 01:45:00 PM EDT [facility] ([facility] Recurring Patient Referrer: HELADIO MANNING MD 06/06/2020 0 4:13:33 PM EDT [facility] Outpatient Attender: Dar Oneal MD Main Office 06/05/2020 01:00:00 PM EDT [facility] ([facility]) Recurring Patient Referrer: HELADIO MANNING MD 06/05/2020 0 8:58:52 AM EDT [facility] Recurring Patient Attender: Albert Ly IIReferrer: KATERYNA AN MD 06/04/2020 09:17:03 AM EDT [facility] Outpatient Attender: Albert Ly IIReferrer: Jac alas MD 06/03/2020 03:34:50 PM EDT [facility] Outpatient Attender: Gary Koroma MD SJP.[email or web address] 05/22 12:00:00 AM EDT - 06/02/2020 01:34:09 PM EDT [facility] Outpatient [email or web address] 05/01/2020 03:37:10 PM EDT [facility] Outpatient Attender: JOSE GODWIN MD [id number] 12:00:00 AM EDT - 04/08/2020 03:28:14 PM EDT [facility] Medications Medication Brand Name Start Date Product Form Dose Route Admi nistrative Instructions Pharmacy Instructions Status Indications Reaction Description Data Source(s) 100 mg 06/12/2021 12:00:00 AM EDT capsule 90 TAKE ONE CAPSULE BY MOUTH THREE TIMES A DAY MAXIMUM DAILY DOSE = 3 TAKE ONE CAPSULE BY MOUTH THREE TIMES A DAY MAXIMUM DAILY DOSE = 3 SOLD: 06/13/2021 [facility] 20 mg 06/11/2021 12:00:00 AM EDT tablet,oral only,ext.re l.12 hr 60 TAKE ONE TABLET BY MOUTH EVERY 12 HOURS MAXIMUM DAILY DOSE = 2 TABLETS TAKE ONE TABLET BY MOUTH EVERY 12 HOURS MAXIMUM DAILY DOSE = 2 TABLETS SOLD: 06/13/2021 [facility] 10 mg 06/11/2021 12:00:00 AM EDT tablet 60 TAKE ONE TABLET BY MOUTH EVERY 4 TO 6 HOURS NEEDED FOR PAIN MAXIMUM DAILY DOSE = 2 TAKE ONE TABLET BY MOUTH EVERY 4 TO 6 HOURS NEEDED FOR PAIN MAXIMUM DAILY DOSE = 2 SOLD: 06/13/2021 [facility] 10 mg 05/04/2021 12:00:00 AM EDT tablet 60 TAKE 1 TABLET BY MOUTH EVERY 4-6 HOUR NEEDED FOR PAIN MAXIMUM DAILY DOSE = 2 TAKE 1 TABLET BY MOUTH EVERY 4-6 HOUR NEEDED FOR PAIN MAXIMUM DAILY DOSE = 2 SOLD: 05/06/2021 [facility] 100 mg 05/04/2021 12:00:00 AM EDT capsule 90 TAKE ONE CAPSULE BY MOUTH THREE TIMES A DAY MAXIMUM DAILY DOSE = 3 TAKE ONE CAPSULE BY MOUTH THREE TIMES A DAY MAXIMUM DAILY DOSE = 3 SOLD: 05/06/2021 [facility] 20 mg 05/04/2021 12:00:00 AM EDT tablet,oral only,ext.re l.12 hr 60 TAKE ONE TABLET BY MOUTH EVERY 12 HOURS MAXIMUM DAILY DOSE = 2 TAKE ONE TABLET BY MOUTH EVERY 12 HOURS MAXIMUM DAILY DOSE = 2 SOLD: 05/06/2021 [facility] cefdinir 300 MG Oral Capsule Cefdinir 04/30/2021 12:00:00 AM EDT ORAL completed [facility] ([facility]) 100 mg 04/03/2021 12:00:00 AM EDT capsule 90 TAKE ONE CAPSULE BY MOUTH THREE TIMES A DAY MAXIMUM DAILY DOSE = 3 CAPSULES TAKE ONE CAPSULE BY MOUTH THREE TIMES A DAY MAXIMUM DAILY DOSE = 3 CAPSULES SOLD: 04/03/2021 [facility] 10 mg 04/03/2021 12:00:00 AM EDT tablet 60 TAKE 1 TABLET EVERY 4-6 HOUR NEEDED FOR PAIN MAXIMUM DAILY DOSE = 2 TAKE 1 TABLET EVERY 4-6 HOUR NEEDED FOR PAIN MAXIMUM DAILY DOSE = 2 SOLD: 04/03/2021 [facility] 20 mg 04/03/2021 12:00:00 AM EDT tablet,oral only,ext.re l.12 hr 55 TAKE ONE TABLET BY MOUTH EVERY 12 HOURS MAXIMUM DAILY DOSE = TWO TABLETS TAKE ONE TABLET BY MOUTH EVERY 12 HOURS MAXIMUM DAILY DOSE = TWO TABLETS SOLD: 04/07/2021 [facility] 10 mg 02/26/2021 12:00:00 AM EDT tablet 60 TAKE 1 TABLET EVERY 4-6 HOUR NEEDED FOR PAIN MAXIMUM DAILY DOSE = 2 TAKE 1 TABLET EVERY 4-6 HOUR NEEDED FOR PAIN MAXIMUM DAILY DOSE = 2 SOLD: 02/28/2021 [facility] 20 mg 02/26/2021 12:00:00 AM EDT tablet,oral only,ext.re l.12 hr 60 TAKE ONE TABLET BY MOUTH EVERY 12 HOURS MAXIMUM DAILY DOSE = TWO TABLETS TAKE ONE TABLET BY MOUTH EVERY 12 HOURS MAXIMUM DAILY DOSE = TWO TABLETS SOLD: 02/28/2021 [facility] 800 mg 02/26/2021 12:00:00 AM EDT tablet 90 TAKE ONE TABLET BY MOUTH THREE TIMES A DAY NEEDED MAXIMUM DAILY DOSE = 3 TAKE ONE TABLET BY MOUTH THREE TIMES A DAY NEEDED MAXIMUM DAILY DOSE = 3 SOLD: 02/28/2021 [facility] 800 mg 02/26/2021 12:00:00 AM EDT tablet 90 TAKE ONE TABLET BY MOUTH THREE TIMES A DAY NEEDED MAXIMUM DAILY DOSE = 3 TAKE ONE TABLET BY MOUTH THREE TIMES A DAY NEEDED MAXIMUM DAILY DOSE = 3 SOLD: 06/17/2021 [facility] 800 mg 02/26/2021 12:00:00 AM EDT tablet 90 TAKE ONE TABLET BY MOUTH THREE TIMES A DAY NEEDED MAXIMUM DAILY DOSE = 3 TAKE ONE TABLET BY MOUTH THREE TIMES A DAY NEEDED MAXIMUM DAILY DOSE = 3 SOLD: 04/16/2021 [facility] 800 mg 02/26/2021 12:00:00 AM EDT tablet 90 TAKE ONE TABLET BY MOUTH THREE TIMES A DAY NEEDED MAXIMUM DAILY DOSE = 3 TAKE ONE TABLET BY MOUTH THREE TIMES A DAY NEEDED MAXIMUM DAILY DOSE = 3 SOLD: 05/16/2021 [facility] 10 mg 01/28/2021 12:00:00 AM EDT tablet 60 TAKE 1 TABLET BY MOUTH EVERY 4-6 HOUR NEEDED FOR PAIN MAXIMUM DAILY DOSE = TWO TABLETS TAKE 1 TABLET BY MOUTH EVERY 4-6 HOUR NEEDED FOR PAIN MAXIMUM DAILY DOSE = TWO TABLETS SOLD: 01/28/2021 [facility] 20 mg 01/28/2021 12:00:00 AM EDT tablet,oral only,ext.re l.12 hr 60 TAKE ONE TABLET BY MOUTH EVERY 12 HOURS MAXIMUM DAILY DOSE = TWO TABLETS TAKE ONE TABLET BY MOUTH EVERY 12 HOURS MAXIMUM DAILY DOSE = TWO TABLETS SOLD: 01/28/2021 [facility] Inject Triamcinolone Acetonide 10 ML, [facility] 5611-0838-55 01/20/2021 12:00:00 AM EDT completed [facility] Medication administered onsite Inject Dexamthosone Phosphate 39285-551-28 01/20/2021 12:00:00 A M EDT completed [facility] ([facility] Medication administered onsite Prednisone 10 MG Oral Tablet Prednisone 01/05/2021 12:00:00 AM EDT active [facility] ([facility] 800 mg 12/27/2020 12:00:00 AM EDT tablet 90 TAKE ONE TABLET BY MOUTH THREE TIMES A DAY NEEDED MAXIMUM DAILY DOSE = THREE TABLETS TAKE ONE TABLET BY MOUTH THREE TIMES A DAY NEEDED MAXIMUM DAILY DOSE = THREE TABLETS SOLD: 01/25/2021 [facility] 100 mg 12/27/2020 12:00:00 AM EDT capsule 90 TAKE ONE CAPSULE BY MOUTH THREE TIMES A DAY MAXIMUM DAILY DOSE = 3 CAPSULES TAKE ONE CAPSULE BY MOUTH THREE TIMES A DAY MAXIMUM DAILY DOSE = 3 CAPSULES SOLD: 01/25/2021 [facility] 100 mg 12/27/2020 12:00:00 AM EDT capsule 90 TAKE ONE CAPSULE BY MOUTH THREE TIMES A DAY MAXIMUM DAILY DOSE = 3 CAPSULES TAKE ONE CAPSULE BY MOUTH THREE TIMES A DAY MAXIMUM DAILY DOSE = 3 CAPSULES SOLD: 03/05/2021 [facility] 800 mg 12/27/2020 12:00:00 AM EDT tablet 90 TAKE ONE TABLET BY MOUTH THREE TIMES A DAY NEEDED MAXIMUM DAILY DOSE = THREE TABLETS TAKE ONE TABLET BY MOUTH THREE TIMES A DAY NEEDED MAXIMUM DAILY DOSE = THREE TABLETS SOLD: 12/28/2020 [facility] 100 mg 12/27/2020 12:00:00 AM EDT capsule 90 TAKE ONE CAPSULE BY MOUTH THREE TIMES A DAY MAXIMUM DAILY DOSE = 3 CAPSULES TAKE ONE CAPSULE BY MOUTH THREE TIMES A DAY MAXIMUM DAILY DOSE = 3 CAPSULES SOLD: 12/28/2020 [facility] 20 mg 12/26/2020 12:00:00 AM EDT tablet,oral only,ext.re l.12 hr 60 TAKE ONE TABLET BY MOUTH EVERY 12 HOURS MAXIMUM DAILY DOSE = TWO TABLETS TAKE ONE TABLET BY MOUTH EVERY 12 HOURS MAXIMUM DAILY DOSE = TWO TABLETS SOLD: 12/28/2020 [facility] 10 mg 12/26/2020 12:00:00 AM EDT tablet 60 TAKE 1 TABLET BY MOUTH EVERY 4-6 HOUR NEEDED FOR PAIN MAXIMUM DAILY DOSE = TWO TABLETS TAKE 1 TABLET BY MOUTH EVERY 4-6 HOUR NEEDED FOR PAIN MAXIMUM DAILY DOSE = TWO TABLETS SOLD: 12/28/2020 [facility] 10 mg 11/26/2020 12:00:00 AM EDT tablet 60 TAKE ONE TABLET BY MOUTH EVERY 4 TO 6 HOURS NEEDED FOR PAIN MAXIMUM DAILY DOSE = TWO TABLETS TAKE ONE TABLET BY MOUTH EVERY 4 TO 6 HOURS NEEDED FOR PAIN MAXIMUM DAILY DOSE = TWO TABLETS SOLD: 11/26/2020 [facility] 20 mg 11/26/2020 12:00:00 AM EDT tablet,oral only,ext.re l.12 hr 60 TAKE ONE TABLET BY MOUTH EVERY 12 HOURS MAXIMUM DAILY DOSE = TWO TABLETS TAKE ONE TABLET BY MOUTH EVERY 12 HOURS MAXIMUM DAILY DOSE = TWO TABLETS SOLD: 11/26/2020 [facility] Amlodipine 10 MG Oral Tablet Amlodipine Besylate ORAL active [facility] ([facility]) Amlodipine 10 MG Oral Tablet amLODIPine (NORVASC) 10 M G tablet amLODIPine (NORVASC) 10 MG tablet 11/24/2020 12:00:00 AM EDT 10 mg Oral active Take 10 mg by mouth daily [facility] 10 mg 10/28/2020 12:00:00 AM EST tablet 60 TAKE ONE TABLET BY MOUTH EVERY 4 TO 6 HOURS NEEDED FOR PAIN MAXIMUM DAILY DOSE = 2 TABLETS TAKE ONE TABLET BY MOUTH EVERY 4 TO 6 HOURS NEEDED FOR PAIN MAXIMUM DAILY DOSE = 2 TABLETS SOLD: 10/28/2020 [facility] 20 mg 10/28/2020 12:00:00 AM EST tablet,oral only,ext.re l.12 hr 60 TAKE ONE TABLET BY MOUTH EVERY 12 HOURS MAXIMUM DAILY DOSE = 2 TABLETS TAKE ONE TABLET BY MOUTH EVERY 12 HOURS MAXIMUM DAILY DOSE = 2 TABLETS SOLD: 10/28/2020 [facility] 24 HR metoprolol succinate 25 MG Extended Release Oral Tablet Metoprolol Succinate ER 10/14/2020 12:00:00 AM EST ORAL active [facility] ([facility]) 24 HR metoprolol succinate 25 MG Extende d Release Oral Tablet metoprolol succinate (TOPROL-XL) 25 MG 24 hr tablet metoprolol succinate (TOPROL-XL) 25 MG 24 hr tablet 10/14/2020 12:00:00 AM EST 25 mg Oral activ e Take 25 mg by mouth daily [facility] Prednisone 10 MG Oral Tablet Prednisone 10/07/2020 12:00:00 AM EST completed [facility] ([facility]) 100 mg 09/29/2020 12:00:00 AM EST capsule 90 TAKE ONE CAPSULE BY MOUTH THREE TIMES A DAY MAXIMUM DAILY DOSE = 3 CAPSULES TAKE ONE CAPSULE BY MOUTH THREE TIMES A DAY MAXIMUM DAILY DOSE = 3 CAPSULES SOLD: 09/29/2020 [facility] 100 mg 09/29/2020 12:00:00 AM EST capsule 90 TAKE ONE CAPSULE BY MOUTH THREE TIMES A DAY MAXIMUM DAILY DOSE = 3 CAPSULES TAKE ONE CAPSULE BY MOUTH THREE TIMES A DAY MAXIMUM DAILY DOSE = 3 CAPSULES SOLD: 11/26/2020 [facility] 20 mg 09/29/2020 12:00:00 AM EST tablet,oral only,ext.re l.12 hr 60 TAKE ONE TABLET BY MOUTH EVERY 12 HOURS MAXIMUM DAILY DOSE = 2 TAKE ONE TABLET BY MOUTH EVERY 12 HOURS MAXIMUM DAILY DOSE = 2 SOLD: 09/29/2020 [facility] 100 mg 09/29/2020 12:00:00 AM EST capsule 90 TAKE ONE CAPSULE BY MOUTH THREE TIMES A DAY MAXIMUM DAILY DOSE = 3 CAPSULES TAKE ONE CAPSULE BY MOUTH THREE TIMES A DAY MAXIMUM DAILY DOSE = 3 CAPSULES SOLD: 10/28/2020 [facility] 10 mg 09/29/2020 12:00:00 AM EST tablet 60 TAKE ONE TABLET BY MOUTH EVERY 4 TO 6 HOURS NEEDED FOR PAIN MAXIMUM DAILY DOSE = 2 TAKE ONE TABLET BY MOUTH EVERY 4 TO 6 HOURS NEEDED FOR PAIN MAXIMUM DAILY DOSE = 2 SOLD: 09/29/2020 [facility] 10 mg 08/29/2020 12:00:00 AM EST tablet 60 TAKE ONE TABLET BY MOUTH EVERY 4 TO 6 HOURS NEEDED FOR PAIN MAXIMUM DAILY DOSE = TWO TABLETS TAKE ONE TABLET BY MOUTH EVERY 4 TO 6 HOURS NEEDED FOR PAIN MAXIMUM DAILY DOSE = TWO TABLETS SOLD: 08/29/2020 [facility] 20 mg 08/29/2020 12:00:00 AM EST tablet,oral only,ext.re l.12 hr 60 TAKE ONE TABLET BY MOUTH EVERY 12 HOURS MAXIMUM DAILY DOSE = TWO TABLETS TAKE ONE TABLET BY MOUTH EVERY 12 HOURS MAXIMUM DAILY DOSE = TWO TABLETS SOLD: 08/29/2020 [facility] 800 mg 08/29/2020 12:00:00 AM EST tablet 90 TAKE ONE TABLET BY MOUTH THREE TIMES A DAY NEEDED MAXIMUM DAILY DOSE = THREE TABLETS TAKE ONE TABLET BY MOUTH THREE TIMES A DAY NEEDED MAXIMUM DAILY DOSE = THREE TABLETS SOLD: 11/26/2020 [facility] 800 mg 08/29/2020 12:00:00 AM EST tablet 90 TAKE ONE TABLET BY MOUTH THREE TIMES A DAY NEEDED MAXIMUM DAILY DOSE = THREE TABLETS TAKE ONE TABLET BY MOUTH THREE TIMES A DAY NEEDED MAXIMUM DAILY DOSE = THREE TABLETS SOLD: 09/29/2020 [facility] 800 mg 08/29/2020 12:00:00 AM EST tablet 90 TAKE ONE TABLET BY MOUTH THREE TIMES A DAY NEEDED MAXIMUM DAILY DOSE = THREE TABLETS TAKE ONE TABLET BY MOUTH THREE TIMES A DAY NEEDED MAXIMUM DAILY DOSE = THREE TABLETS SOLD: 08/29/2020 [facility] 800 mg 08/29/2020 12:00:00 AM EST tablet 90 TAKE ONE TABLET BY MOUTH THREE TIMES A DAY NEEDED MAXIMUM DAILY DOSE = THREE TABLETS TAKE ONE TABLET BY MOUTH THREE TIMES A DAY NEEDED MAXIMUM DAILY DOSE = THREE TABLETS SOLD: 10/28/2020 [facility] 10 mg 07/25/2020 12:00:00 AM EST tablet 60 TAKE ONE TABLET BY MOUTH EVERY 4 TO 6 HOURS NEEDED FOR PAIN MAXIMUM DAILY DOSE = TWO TABLETS TAKE ONE TABLET BY MOUTH EVERY 4 TO 6 HOURS NEEDED FOR PAIN MAXIMUM DAILY DOSE = TWO TABLETS SOLD: 07/27/2020 [facility] 20 mg 07/25/2020 12:00:00 AM EST tablet,oral only,ext.re l.12 hr 60 TAKE ONE TABLET BY MOUTH EVERY 12 HOURS MAXIMUM DAILY DOSE = TWO TABLETS TAKE ONE TABLET BY MOUTH EVERY 12 HOURS MAXIMUM DAILY DOSE = TWO TABLETS SOLD: 07/27/2020 [facility] Sulfamethoxazole 800 MG / Trimethoprim 1 60 MG Oral Tablet sulfamethoxazole- trimethoprim (BACTRIM DS) 800-160 MG per tablet 1 tablet sulfamethoxazole- trimethoprim (BACTRIM DS) 800-160 MG per tablet 1 tablet 07/15/2020 03:15:00 PM EST 1 {tbl} Oral completed 1 tabl et, Oral, Once, 07/15/20 at 1515, For 1 dose [facility] Medication administered onsite Vitamin B-12 07/15/2020 12:00:00 AM EST activ e [facility] ([facility]) 100 mg 06/25/2020 12:00:00 AM EST capsule 90 TAKE ONE CAPSULE BY MOUTH THREE TIMES A DAY MAXIMUM DAILY DOSE = 3 CAPSULES TAKE ONE CAPSULE BY MOUTH THREE TIMES A DAY MAXIMUM DAILY DOSE = 3 CAPSULES SOLD: 07/25/2020 [facility] 100 mg 06/25/2020 12:00:00 AM EST capsule 90 TAKE ONE CAPSULE BY MOUTH THREE TIMES A DAY MAXIMUM DAILY DOSE = 3 CAPSULES TAKE ONE CAPSULE BY MOUTH THREE TIMES A DAY MAXIMUM DAILY DOSE = 3 CAPSULES SOLD: 06/26/2020 [facility] 100 mg 06/25/2020 12:00:00 AM EST capsule 90 TAKE ONE CAPSULE BY MOUTH THREE TIMES A DAY MAXIMUM DAILY DOSE = 3 CAPSULES TAKE ONE CAPSULE BY MOUTH THREE TIMES A DAY MAXIMUM DAILY DOSE = 3 CAPSULES SOLD: 08/29/2020 [facility] 20 mg 06/24/2020 12:00:00 AM EST tablet,oral only,ext.re l.12 hr 60 TAKE ONE TABLET BY MOUTH EVERY 12 HOURS MAXIMUM DAILY DOSE = TWO TABLETS TAKE ONE TABLET BY MOUTH EVERY 12 HOURS MAXIMUM DAILY DOSE = TWO TABLETS SOLD: 06/26/2020 [facility] 10 mg 06/24/2020 12:00:00 AM EST tablet 60 TAKE ONE TABLET BY MOUTH EVERY 4 TO 6 HOURS NEEDED FOR PAIN MAXIMUM DAILY DOSE = TWO TABLETS TAKE ONE TABLET BY MOUTH EVERY 4 TO 6 HOURS NEEDED FOR PAIN MAXIMUM DAILY DOSE = TWO TABLETS SOLD: 06/26/2020 [facility] Inject Dexamthosone Phosphate 64243-351-33 06/12/2020 12:00:00 A M EDT completed [facility] ([facility] Medication administered onsite Inject Triamcinolone Acetonide 10 ML, [facility] 7465-7874-91 06/12/2020 12:00:00 AM EDT completed [facility] ([facility] Medication administered onsite 20 mg 05/24/2020 12:00:00 AM EDT tablet,oral only,ext.re l.12 hr 60 TAKE ONE TABLET BY MOUTH EVERY 12 HOURS MAXIMUM DAILY DOSE = 2 TAKE ONE TABLET BY MOUTH EVERY 12 HOURS MAXIMUM DAILY DOSE = 2 SOLD: 05/24/2020 [facility] Albuterol 0.83 MG/ML Inhalant Solution a lbuterol (PROVENTIL) (2.5 MG/3ML) 0.083% nebulizer solution albuterol (PROVENTIL) (2.5 MG/3ML) 0.083% nebulizer so lution 05/23/2020 12:00:00 AM EDT active as needed [facility] 10 mg 05/22/2020 12:00:00 AM EDT tablet 60 TAKE ONE TABLET BY MOUTH EVERY 4 TO 6 HOURS NEEDED FOR PAIN MAXIMUM DAILY DOSE = 2 TAKE ONE TABLET BY MOUTH EVERY 4 TO 6 HOURS NEEDED FOR PAIN MAXIMUM DAILY DOSE = 2 SOLD: 05/24/2020 [facility] Albuterol 0.83 MG/ML Inhalant Solution Albuterol Sulfate 1 12:00:00 AM EDT active [facility] ([facility]) 800 mg 04/21/2020 12:00:00 AM EDT tablet 90 TAKE ONE TABLET BY MOUTH THREE TIMES A DAY NEEDED MAXIMUM DAILY DOSE = 3 TABLETS TAKE ONE TABLET BY MOUTH THREE TIMES A DAY NEEDED MAXIMUM DAILY DOSE = 3 TABLETS SOLD: 07/25/2020 [facility] 800 mg 04/21/2020 12:00:00 AM EDT tablet 90 TAKE ONE TABLET BY MOUTH THREE TIMES A DAY NEEDED MAXIMUM DAILY DOSE = 3 TABLETS TAKE ONE TABLET BY MOUTH THREE TIMES A DAY NEEDED MAXIMUM DAILY DOSE = 3 TABLETS SOLD: 05/24/2020 [facility] 800 mg 04/21/2020 12:00:00 AM EDT tablet 90 TAKE ONE TABLET BY MOUTH THREE TIMES A DAY NEEDED MAXIMUM DAILY DOSE = 3 TABLETS TAKE ONE TABLET BY MOUTH THREE TIMES A DAY NEEDED MAXIMUM DAILY DOSE = 3 TABLETS SOLD: 06/29/2020 [facility] 100 mg 03/20/2020 12:00:00 AM EDT capsule 90 TAKE ONE CAPSULE BY MOUTH THREE TIMES A DAY MAXIMUM DAILY DOSE = 3 TABLETS TAKE ONE CAPSULE BY MOUTH THREE TIMES A DAY MAXIMUM DAILY DOSE = 3 TABLETS SOLD: 05/24/2020 [facility] Amlodipine 5 MG Oral Tablet amLODIPine (NORVASC) 5 MG tablet amLODIPine (NORVASC) 5 MG tablet 10/12/2019 12:00:00 AM EST 5 mg Oral aborted Take 5 mg by mouth daily [facility] Vitamin B 12 1 MG Oral Tablet vitamin B-12 (CYANOCOBAL POLANCO) 1000 MCG tablet vitamin B-12 (CYANOCOBALAMIN) 1000 MCG tablet 1000 ug Oral aborted Take 1,000 mcg by mouth [facility] Covid-19 vaccine, Unspecified completed [facility] ([facility]) Magnesium Oxide (MAG-OX) 400 MG tablet 79345-659-94 400 mg Oral aborted Take 400 mg by mouth daily [facility] DOTGJPV-IHPOAPCJP-VDHP PO Oral aborted Take by mouth daily [facility] Insurance Providers Payer name Policy type / Coverage type Policy ID Covered democrat ID Covered democrat's relationship to [place] Policy [place] Plan Information WORKERS COMPENSATION GENERIC W [id number] Self [id number] [facility] pending SELF pen ding WORKERS COMPENSATION GENERIC W [id number] Empl [id number] [facility] [id number] SELF [id number] [facility],[place],ZF,[facility] Health Maintenance Organization ([facility] [id number] 2.16.840.1.163827.3.227.99.991.17458.0 Self [id number] [employer] () Workers Compensation [id number] 2.16.840.1.039765.3.227.99.991.77292.0 Self [id number] [facility],[place],ZF,Ymb,[facility] Health Maintenance Organization ([facility]) [id number] 2.16.840.1.868071.3.227.99.991.79629.0 Self [id number] [facility],[place],ZF,Ymb,[facility] Health Maintenance Organization ([facility]) [id number] 2.16.840.1.016424.3.227.99.991.20345.0 Self [id number] [facility],[place],ZF,b,[facility] Health Maintenance Organization ([facility]) [id number] MRN.[id number] Self [id number] [employer] () Workers Compensation [id number] Self [id number] [facility] ZFC,Yot,ZFH,Ymb,ZFP Health Maintenance Organization (O) [id number] MRN.[id number] Self [id number] [facility] B [id number] SELF [id number] [facility] B [id number] SELF [id number] [facility] Health Maintenance Organization ([facility]) [id number] 04 2.16.840.1.801113.3.227.99.4595.07380.0 Self [id number] [facility] Health Maintenance Organization ([facility]) [id number] MRN.[id number] Self [id number] [facility] Health Maintenance Organization ([facility]) [id number] 04 MRN.[id number] Self [id number] [facility] Health Maintenance Organization ([facility]) [id number] 04 2.16.840.1.440462.3.227.99.4595.31169.0 Self [id number] [facility] Health Maintenance Organization ([facility]) [id number] 04 2.16.840.1.831855.3.227.99.4595.22791.0 Self [id number] [facility] [employer] Health Maintenance Organization (O) [id number] 04 2.16.840.1.163523.3.227.99.4595.54977.0 Self [id number] [facility] [employer] Health Maintenance Organization (O) [id number] 04 2.16.840.1.998748.3.227.99.4595.66631.0 Self [id number] [facility] [employer] Health Maintenance Organization (O) [id number] 04 2.16.840.1.534381.3.227.99.4595.00241.0 Self [id number] [facility] [employer] Health Maintenance Organization (O) [id number] 04 2.16.840.1.513405.3.227.99.4595.34779.0 Self [id number] [facility] [employer] Health Maintenance Organization (O) [id number] 04 2.16.840.1.914412.3.227.99.4595.36350.0 Self [id number] [facility] [employer] Health Maintenance Organization (O) [id number] 04 2.16.840.1.435318.3.227.99.4595.20197.0 Self [id number] [facility] [employer] Health Maintenance Organization (O) [id number] 04 2.16.840.1.387310.3.227.99.4595.18642.0 Self [id number] [facility] [employer] Health Maintenance Organization (O) [id number] 04 2.16.840.1.459786.3.227.99.4595.46991.0 Self [id number] [facility] [employer] Health Maintenance Organization (O) [id number] 04 2.16.840.1.415367.3.227.99.4595.36534.0 Self [id number] [facility] [employer] Health Maintenance Organization (O) [id number] 04 2.16.840.1.513367.3.227.99.4595.40854.0 Self [id number] [facility] [employer] Health Maintenance Organization (O) [id number] 04 2.16.840.1.934532.3.227.99.4595.32894.0 Self [id number] [employer] Health Maintenance Organization (O) [id number] 04 2.16.840.1.894297.3.227.99.4595.29712.0 Self [id number] [facility] [employer] Health Maintenance Organization (O) [id number] 04 2.16.840.1.143434.3.227.99.4595.20479.0 Self [id number] Workers Compensation Workers Compensation [id number] 2.16.840.1.172229.3.227.99.4595.53853.0 Self [id number] Workers Compensation Workers Compensation [id number] 2.16.840.1.722638.3.227.99.4595.58034.0 Self [id number] Workers Compensation Workers Compensation [id number] [facility].[id number] Self [id number] Workers Compensation Workers Compensation [id number] 2.16.840.1.161586.3.227.99.4595.71621.0 Self [id number] Workers Compensation Workers Compensation [id number] 2.16.840.1.562195.3.227.99.4595.57931.0 Self [id number] Workers Compensation Workers Compensation [id number] [facility].[id number] Self [id number] Workers Compensation Workers Compensation [id number] 2.16.840.1.018674.3.227.99.4595.05769.0 Self [id number] Workers Compensation Workers Compensation [id number] 2.16.840.1.115288.3.227.99.4595.38632.0 Self [id number] Workers Compensation Workers Compensation [id number] 2.16.840.1.059498.3.227.99.4595.30110.0 Self [id number] Workers Compensation Workers Compensation [id number] 2.16.840.1.360523.3.227.99.4595.28263.0 Self [id number] Workers Compensation Workers Compensation [id number] 2.16.840.1.991216.3.227.99.4595.36985.0 Self [id number] Workers Compensation Workers Compensation [id number] 2.16.840.1.145087.3.227.99.4595.37823.0 Self [id number] Workers Compensation Workers Compensation [id number] 2.16.840.1.861126.3.227.99.4595.44586.0 Self [id number] Workers Compensation Workers Compensation [id number] 2.16.840.1.664847.3.227.99.4595.85125.0 Self [id number] Workers Compensation Workers Compensation [id number] 2.16.840.1.676057.3.227.99.4595.04929.0 Self [id number] Workers Compensation Workers Compensation [id number] 2.16.840.1.053135.3.227.99.4595.46954.0 Self [id number] Workers Compensation Workers Compensation [id number] 2.16.840.1.043978.3.227.99.4595.09796.0 Self [id number] Workers Compensation Workers Compensation [id number] 2.16.840.1.834543.3.227.99.4595.71979.0 Self [id number] Medicare Natl Govt Servic Medicare Primary [id number] 2.16840.1.270144.3.227.99.4595.64796.0 Self [id number] [facility] [id number] Self [id number] MEDICARE A [id number] Self [id number] Medicare Natl Govt Servic Medicare Primary [id number] 2.16840.1.162867.3.227.99.4595.02164.0 Self [id number] MEDICARE [id number] B Medicare Natl Govt Servic Medicare Primary [id number] N.[id number] Self [id number] Medicare Natl Govt Servic Medicare Primary [id number] 2.16840.1.028766.3.227.99.4595.01092.0 Self [id number] Medicare Natl Govt Servic Medicare Primary [id number] 2.16840.1.779349.3.227.99.4595.43449.0 Self [id number] Medicare Natl Govt Servic Medicare Primary [id number] 2.16.840.1.879097.3.227.99.4595.23179.0 Self [id number] MEDICARE [id number] [place] [id number] Medicare Natl Govt Servic Medicare Primary [id number] Self [id number] MEDICARE [id number] SP [id number] MEDICARE [place] [id number] S [id number] Medicare Natl Govt Servic Medicare Primary [id number] 2.840.1.780472.3.227.99.4595.54767.0 Self [id number] Medicare Natl Govt Servic Medicare Primary [id number] 2.840.1.351591.3.227.99.4595.94501.0 Self [id number] [place] MEDICARE [employer] [id number] S [id number] MEDICARE [id number] xxxxxxxxxxx [id number] Medicare Natl Govt Servic Medicare Primary [id number] 2.840.1.078648.3.227.99.4595.04168.0 Self [id number] Medicare Natl Govt Servic Medicare Primary [id number] 2.16840.1.256846.3.227.99.4595.37628.0 Self [id number] Medicare Natl Govt Servic Medicare Primary [id number] 2.16840.1.722933.3.227.99.4595.18788.0 Self [id number] Medicare Natl Govt Servic Medicare Primary [id number] 2.840.1.347746.3.227.99.4595.13632.0 Self [id number] MEDICARE A [id number] Self [id number] B Medicare Natl Govt Servic Medicare Primary [id number] 2.16840.1.893627.3.227.99.4595.85569.0 Self [id number] Medicare Natl Govt Servic Medicare Primary [id number] 2.16840.1.759393.3.227.99.4595.95607.0 Self [id number] MEDICARE [id number] SP [id number] MEDICARE [id number] SP [id number] Medicare Natl Govt Servic Medicare Primary [id number] 2.16840.1.211414.3.227.99.4595.85299.0 Self [id number] Medicare Natl Govt Servic Medicare Primary [id number] 2.840.1.071453.3.227.99.4595.70919.0 Self [id number] Medicare Natl Govt Servic Medicare Primary [id number] 2.840.1.537030.3.227.99.4595.40461.0 Self [id number] [place] [employer] Medigap Part B [id number] MRN.[id number] Self [id number] [place] [employer] Medigap Part B [id number] MRN.[id number] Self [id number] [facility] Trad/MX Medigap Part B [id number] MRN.[id number] Self [id number] [facility] Trad/[employer] Medigap Part B [id number] MRN.[id number] Self [id number] [employer] [id number] [place] VYY [id number] [employer] [place] [employer] Medigap Part B [id number] 2.16.840.1.240574.3.227.99.4595.99800.0 Self [id number] [place] [employer] Medigap Part B [id number] 2.16.840.1.382142.3.227.99.4595.64640.0 Self [id number] [employer] C [id number] Self [id number] [employer] [place] [employer] Medigap Part B [id number] 2.16.840.1.899074.3.227.99.4595.27284.0 Self [id number] [place] [employer] Medigap Part B [id number] 2.16.840.1.168049.3.227.99.4595.70876.0 Self [id number] [place] [employer] Medigap Part B [id number] 2.16.840.1.580032.3.227.99.4595.23177.0 Self [id number] [place] [employer] Medigap Part B [id number] 2.16.840.1.900129.3.227.99.4595.23303.0 Self [id number] [place] [employer] Medigap Part B [id number] 2.16.840.1.156759.3.227.99.4595.09261.0 Self [id number] [employer] [place] [employer] Medigap Part B [id number] 2.16.840.1.440971.3.227.99.4595.53348.0 Self [id number] [employer] [place] [employer] Medigap Part B [id number] 2.16.840.1.003511.3.227.99.4595.08608.0 Self [id number] [employer] [place] [employer] Medigap Part B [id number] 2.16.840.1.702832.3.227.99.4595.29301.0 Self [id number] [place] [employer] Medigap Part B [id number] 2.16.840.1.614468.3.227.99.4595.43517.0 Self [id number] [place] [employer] Medigap Part B [id number] 2.16.840.1.754747.3.227.99.4595.30296.0 Self [id number] [employer] PPO 302/307 [id number] SP [id number] [employer] [place] [employer] Medigap Part B [id number] 2.16.840.1.063172.3.227.99.4595.26924.0 Self [id number] [place] [employer] Medigap Part B [id number] 2.16.840.1.814009.3.227.99.4595.04211.0 Self [id number] [employer] [place] [employer] Medigap Part B [id number] 2.16.840.1.114351.3.227.99.4595.47843.0 Self [id number] [employer] [place] [employer] Medigap Part B [id number] 2.16.840.1.284932.3.227.99.4595.70775.0 Self [id number] [place] [employer] Medigap Part B [id number] 2.16.840.1.607709.3.227.99.4595.27116.0 Self [id number] [place] [employer] Medigap Part B [id number] 2.16.840.1.279491.3.227.99.4595.05102.0 Self [id number] [place] [employer] Medigap Part B [id number] 2.16.840.1.672685.3.227.99.4595.50481.0 Self [id number] [employer] [place] [employer] Medigap Part B [id number] 2.16.840.1.944882.3.227.99.4595.83800.0 Self [id number] [employer] [place] [employer] [id number] 2.16.840.1.298678.3.227.99.4595.00470.0 Self [id number] [employer] [place] [employer] [id number] 2.16.840.1.479005.3.227.99.4595.79831.0 Self [id number] [employer] [place] [employer] [id number] 2.16.840.1.298922.3.227.99.4595.85502.0 Self [id number] [employer] [place] [employer] [id number] 2.16.840.1.290509.3.227.99.4595.04945.0 Self [id number] [employer] [place] [employer] [id number] 2.16.840.1.628349.3.227.99.4595.00717.0 Self [id number] [employer] [place] [employer] [id number] 2.16.840.1.805390.3.227.99.4595.20493.0 Self [id number] [employer] [place] [employer] [id number] 2.16.840.1.324493.3.227.99.4595.65680.0 Self [id number] [employer] [place] [employer] [id number] 2.16.840.1.455088.3.227.99.4595.07165.0 Self [id number] [employer] [place] [employer] [id number] 2.16.840.1.521005.3.227.99.4595.04700.0 Self [id number] [employer] [place] [employer] [id number] 2.16.840.1.219250.3.227.99.4595.34235.0 Self [id number] [employer] [place] [employer] [id number] 2.16.840.1.711125.3.227.99.4595.97295.0 Self [id number] [employer] [place] [employer] [id number] 2.16.840.1.291621.3.227.99.4595.23519.0 Self [id number] [employer] [place] [id number] S [id number] [id number] [employer]BS [id number] [phone] [id number] [employer] [place] [employer]/ Medigap Part B [id number] MRN.[id number] Self [id number] [employer] Blue [employer] [place] Blue Cross/B lue Shield [id number] Self [id number] [place] Medicare Part B [id number] Self [id number] Medicare Medicare Primary [id number] 2..1.082258.3.227.99.936 .5822.0 Self [id number] Medicare Medicare Primary [id number] MRN.[id number] Self [id number] [employer] [place] 306/806 [id number] SP [id number] [facility] [place] [id number] MRN.[id number] Self [id number] Medicare Dme Medigap Part B [id number] .1.914535.3.227.99 .936.5822.0 Self [id number] [place] Medigap Part B [id number] 2.16.840.1.722335.3.227.99.936.5822.0 Self [id number] Medicare Dme Medigap Part B [id number] MRN.[id number] Self [id number] [facility] CLAIMS [id number] SP [id number] Medicare Medicare Primary [id number] MRN.[id number] Self [id number] Medicare Medicare Primary [id number] 2.16.840.1.130542.3.227.99.936 .5822.0 Self [id number] [facility] C [id number] S [id number] [place] Med[place] Part B [id number] MRN.[id number] Self [id number] [facility] Medigap Part B [id number] 2.0.1.031949.3.227.99.8646.01554.0 Self [id number] [place] Primary [id number] 2.160.1.720269.3.227.99.8646.65813.0 Self [id number] [facility] B [id number] S [id number] [id number] Medicare Dme Medigap Part B [id number] MRN.[id number] Self [id number] [place] Med[place] Part B [id number] MRN.[id number] Self [id number] [place] Med[place] Part [place] [id number] MRN.[id number] Self [id number] [place] B [id number] MRN.[id number] Self [id number] [place] Med[place] Part B [id number] Self [id number] [facility] [id number] 2.16.840.1.924351.3.227.99.8646.04266.0 Self [id number] Medicare [place] Medicare Primary [id number] 2.16.840.1.780224.3.227.99.8646.04694.0 Self [id number] MEDICARE C [id number] S [id number] B VINCENT WC [id number] SP [id number] [place] Med[place] Part B [id number].[id number] Self [id number] [place] [facility] [place] [id number] MRN.[id number] Self [id number] Medicare Medicare Primary [id number] MRN.[id number] Self [id number] [facility] CLAIMS [id number] SP [id number] [employer] COMPENSATION GENERIC W [id number] Self [id number] [place] PPO 302/307 [id number] SP [id number] [place] [id number] S VYY [id number] [place] MEDICARE DIVISION [id number] S [id number] [place] Med[place] Part B [id number] MRN.[id number] Self [id number] [employer] Medigap Part B [id number] 2.840.1.680773.3.227.99.8646.75337.0 Self [id number] Medicare [place] Medicare Primary [id number] 2.0.1.775118.3.227.99.8646.77553.0 Self [id number] [place] Med[place] Part B [id number] MRN.[id number] Self [id number] [place] P[place] 302/307 [id number] SP [id number] BS [place] Med[place]ap Part B [id number] MRN.[id number] Self [id number] MEDICARE - [place] [id number] S [id number] [facility] O [id number] S [id number] Medicare Medicare Primary [id number] MRN.[id number] Self [id number] [facility] P [id number] S [id number] [place] Medigap Part B [id number] Self [id number] [facility] B [id number] S [id number] ONE CALL CARE MANAGEMENT O [id number] S [id number] Medicare Dme Medigap Part B [id number] Self [id number] [facility] [id number] SP [id number] Medicare Medicare Primary [id number] Self [id number] [place] B [id number] Self 7 [id number] MEDICARE C [id number] S [id number] MEDICARE [id number] SP [id number] B BS [place] Med[place] Part B [id number] Self V [id number] Medicare Dme Medigap Part B [id number] Self [id number] BS [place] Med[place] Part B [id number] Self [id number] BS [place] Medigap Part B [id number] Self Z [id number] BC BS [place] FED[place] B [id number] S [id number] MEDICARE BLUE PPO 306 [id number] SP [id number] [place] Med[place]ap Part B [id number] Self 7 [id number] BCBS [place] 306/806 [id number] SP [id number] Medicare Dme Medigap Part B [id number] Self [id number] BS [place] Medigap Part B [id number] Self V [id number] BCBS [place] PPO 302/307 [id number] SP [id number] BS [place] Medigap Part B [id number] Self Z [id number] MEDICARE BLUE PPO 306 [id number] SP [id number] [facility] PART B C [id number] S [id number] [employer] BCBS FEDERAL [id number] SP [id number] [place] Med[place]ap Part B [id number] Self 7 [id number] Medicare Medicare Primary [id number] Self [id number] Medicare Dme Medigap Part B [id number] Self [id number] BS [place] Medigap Part B [id number] Self V [id number] [employer] BCBS Medigap Part B [id number] Self [id number] [place] Medicare Primary [id number] Self [id number] BCBS [place] PPO 302/307 [id number] SP [id number] BS [place] Medigap Part B [id number] Self Z [id number] BS [place] Medigap Part B [id number] Self [id number] Medicare Medicare Primary [id number] Self [id number] [employer] BCBS FEDERAL [id number] SP [id number] Medicare Medicare Primary [id number] Self [id number] Medicare Dme Medigap Part B [id number] Self [id number] [place] BCBS Medigap Part B [id number] Self [id number] [place] Medicare Primary [id number] Self [id number] Medicare Dme [facility] Part B [id number] Self [id number] BS [place] [facility] [id number] Self [id number] BS [place] Medigap Part B [id number] Self VY [id number] Problems, Conditions, and Diagnoses Code Display Name Description Problem Type Effective Dates Data Source(s) R06.02 Shortness of breath Shortness of breath Diagnosis 0 04/06/2021 01:14:25 PM EDT [facility] E78.5 Hyperlipidemia, unspecified Hyperlipidemia, unspecifie d Diagnosis 04/06/2021 01:14:25 PM EDT [facility] I10 Essential (primary) hypertension Essential (primary) h ypertension Diagnosis 04/06/2021 01:14:25 PM EDT [facility] Z95.0 Presence of cardiac pacemaker Presence of cardiac pace maker Diagnosis 04/06/2021 01:14:25 PM EDT [facility] I48.0 Paroxysmal atrial fibrillation Paroxysmal atrial fibri llation Diagnosis 04/06/2021 01:14:25 PM EDT [facility] 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 M71.21 Synovial cyst of popliteal space [[place]] , right knee SYNOVIAL CYST OF POPLITEAL SPACE [VALDIVIA], RIGHT KN Diagnosis 12/26/2020 02:51:00 PM EDT [facility] M79.604 Pain in right leg PAIN IN RIGHT LEG Diagnosis 12/26 02:51:00 PM [facility] R60.9 Edema, unspecified EDEMA, UNSPECIFIED Diagnosis 02/2021 02:51:00 PM [facility] [id number] Dysphagia Dysphagia Problem 06/09/2021 12:00:00 AM ED T [facility] ([facility]) M19.071 Localized, primary osteoarthritis of the ankle and/or foot Localized, primary osteoarthritis of the ankle and/or foot Problem 2020 12:00:00 AM EDT [facility] ([facility] M65.871 Tenosynovitis of foot Tenosynovitis of foot Problem 01/15/2021 12:00:00 AM EDT [facility] ([facility] [id number] Abdominal pain Abdominal pain Problem 07/15/2020 12:00: 00 AM EST [facility] ([facility]) [id number] Open wound of abdominal wall Open wound of abdominal w all Problem 07/15/2020 12:00:00 AM EST [facility] ([facility]) Surgeries/Procedures Procedure Description Date Indications Data Source(s) OFFICE OUTPATIENT VISIT 15 MINUTES 06/09/2021 12:00:00 AM EDT [facility] ([facility]) OFFICE OUTPATIENT VISIT 25 MINUTES 05/14/2021 12:00:00 AM EDT [facility] ([facility]) OFFICE OUTPATIENT VISIT 25 MINUTES 04/30/2021 12:00:00 AM EDT [facility] ([facility]) Complex Chronic Care Management SVC 1St 60 Min 021 12:00:00 AM EDT [facility] ([facility]) Complex Chronic Care MGMT Service Ea Addl 30 Min 04/20 12:00:00 AM EDT [facility] ([facility]) ECG ROUTINE ECG W/LEAST 12 LDS W/I&R <td>POCT AMB EKG</td><td>Routine</td><td>04/06/2021 1:42 PM EDT</td><td> Paroxysmal atrial fibrillation Pacemaker Essential hypertension</td><td> </td> 04/06/2021 01:42:00 PM EDT Essential hypertensionPacemakerParoxysmal atrial fibri llation [facility] Essential hypertension Pacemaker Paroxysmal atrial fibrillation OFFICE OUTPATIENT VISIT 25 MINUTES 02/24/2021 12:00:00 AM EDT [facility] ([facility]) BLOOD COUNT COMPLETE AUTO&AUTO DIFRNTL WBC COUNT <td>C BC AND DIFFERENTIAL</td><td>Routine</td><td>02/24/2021</td><td></td><td> </td> 02/24/2021 12:00:00 AM EDT [facility] HEMOGLOBIN GLYCOSYLATED A1C <td>HEMOGLOBIN A1C</td><td>Routine</td><td>02/24/2021</td><td></td><td> </td> 02/24/2021 12:00:00 AM EDT [facility] HEPATIC FUNCTION PANEL <td>HEPATIC FUNCTION PANEL</td><td>Routine</td><td>02/24/2021</td><td></td><td> </td> 02/24/2021 12:00:00 AM EDT [facility] LIPID PANEL <td>LIPID PANEL</td><td>Rout ine</td><td>02/24/2021</td><td></td><td> </td> 02/24/2021 12:00:00 AM EDT [facility] BASIC METABOLIC PANEL CALCIUM TOTAL <td>BASIC METABOLI C PANEL</td><td>Routine</td><td>02/24/2021</td><td></td><td> </td> 02/24/2021 12:00:00 AM EDT [facility] Complex Chronic Care Management SVC 1St 60 Min 021 12:00:00 AM EDT [facility] ([facility]) Complex Chronic Care MGMT Service Ea Addl 30 Min 02/16 12:00:00 AM EDT [facility] ([facility]) THERAPEUTIC PX 1/> AREAS EACH 15 MIN EXERCISES 12:00:00 AM EDT [facility] ([facility] ) MANUAL THERAPY TQS 1/> REGIONS EACH 15 MINUTES 12:00:00 AM EDT [facility] ([facility] ) INJECTION 1 TENDON SHEATH/LIGAMENT APONEUROSIS 12:00:00 AM EDT [facility] ([facility] Physical Therapy Eval - Low Complexity 01/14/2021 12:0 0:00 AM EDT [facility] ([facility] ) Complex Chronic Care Management SVC 1St 60 Min 12:00:00 AM EDT [facility] ([facility]) Complex Chronic Care MGMT Service Ea Addl 30 Min 01/13 12:00:00 AM EDT [facility] ([facility]) RADIOLOGIC EXAM KNEE COMPLETE 4/MORE VIEWS 01/09/2021 12:00:00 AM EDT [facility] ([facility] ) OFFICE OUTPATIENT VISIT 15 MINUTES 01/09/2021 12:00:00 AM EDT [facility] ([facility] ) Strapping Foot Or Ankle 01/05/2021 12:00:00 AM EDT [facility] ([facility] OFFICE OUTPATIENT VISIT 25 MINUTES 12/26/2020 12:00:00 AM EDT [facility] ([facility]) ECG ROUTINE ECG W/LEAST 12 LDS W/I&R <td>POCT AMB EKG</td><td>Routine</td><td>12/02/2020 2:45 PM EDT</td><td> Paroxysmal atrial fibrillation</td><td> </td> 12/02/2020 06:45:00 PM EDT Paroxysmal atrial fibrillation [facility] Paroxysmal atrial fibrillation Chronic Care Management Services Ea Addl 20 Min 2020 12:00:00 AM EST [facility] ([facility]) Chronic Care MGMT 20 Mins Clinical Staff Time Per Calendar M onth 10/22/2020 12:00:00 AM EST [facility] ([facility] ) Complex Chronic Care Management SVC 1St 60 Min 021 12:00:00 AM EST [facility] ([facility]) Complex Chronic Care MGMT Service Ea Addl 30 Min 10/15 12:00:00 AM EST [facility] ([facility]) BLOOD COUNT COMPLETE AUTO&AUTO DIFRNTL WBC COUNT <td>C BC AND DIFFERENTIAL</td><td>Routine</td><td>10/07/2020</td><td></td><td> </td> 10/07/2020 12:00:00 AM [facility] HEMOGLOBIN GLYCOSYLATED A1C <td>HEMOGLOBIN A1C</td><td>Routine</td><td>10/07/2020</td><td></td><td> </td> 10/07/2020 12:00:00 AM [facility] BASIC METABOLIC PANEL CALCIUM TOTAL <td>BASIC METABOLI C PANEL</td><td>Routine</td><td>10/07/2020</td><td></td><td> </td> 10/07/2020 12:00:00 AM [facility] OFFICE OUTPATIENT VISIT 25 MINUTES 10/07/2020 12:00:00 AM EST [facility] ([facility]) OFFICE OUTPATIENT VISIT 15 MINUTES 09/05/2020 12:00:00 AM EST [facility] ([facility]) Chronic Care Management Services Ea Addl 20 Min 2020 12:00:00 AM EST [facility] ([facility]) Chronic Care MGMT 20 Mins Clinical Staff Time Per Calendar M onth 09/02/2020 12:00:00 AM EST [facility] ([facility] ) CYSTOGRAM (IN OFFICE/ON UNIT) <td>CYSTOGRAM (IN OFFICE /ON UNIT)</td><td>Routine</td><td>07/15/2020 6:45 PM EST</td><td> Stricture of ureteral-ileal loop anastomosis</td><td></td> 07/15/2020 06:45:00 PM EST Stricture of ureteral-ileal loop anastomosis [facility] Stricture of ureteral-ileal loop anastom osis Colonoscopy 06/23/2020 12:00:00 AM EST [facility] ([facility]) Colonoscopy 06/23/2020 12:00:00 AM EST [facility] ([facility]) COLONOSCOPY FLX DX W/WO COLLJ SPECIMENS 06/23/2020 12: 00:00 AM EST [facility] ([facility]) DEBRIDEMENT NAIL ANY METHOD 6/> 06/12/2020 12:00:00 AM EDT [facility] ([facility] Injection-Plantar Common Nerve 06/12/2020 12:00:00 AM EDT [facility] ([facility] Results ID Date Data Source [id number] 06/17/2021 09:20:00 AM EDT [facility] Name Value Range Interpretation Code Description Data Shasha rce(s) Supporting Document(s) SARS-CoV-2 (COVID-19) RNA [Presence] in Respiratory specimen by DANIEL with probe detection Not Detected [facility] This lab was ordered by [facility] and reported by [facility]. ID Date Data Source [id number] 05/22/2021 09:41:00 AM EDT [facility] Name Value Range Interpretation Code Description Data Shasha rce(s) Supporting Document(s) Laboratory test finding (navigational concept) 30.0 % 38.0-51.0 [facility] ([facility]) Laboratory test finding (navigational concept) 120 mg/dL 70-105 [facility] ([facility]) Laboratory test finding (navigational concept) 143 meq/L 136-145 [facility] ([facility]) Laboratory test finding (navigational concept) 4.8 mg/dL 4.5-5.3 [facility] ([facility]) Laboratory test finding (navigational concept) 4.3 meq/L 3.5-5.1 [facility] ([facility]) Laboratory test finding (navigational concept) 111 meq/L 98-109 [facility] ([facility]) Laboratory test finding (navigational concept) 22.0 MM/L 23.0-27.0 [facility] ([facility]) Laboratory test finding (navigational concept) 17 mg/dL 8-26 [facility] ([facility]) Laboratory test finding (navigational concept) 1.2 mg/dL 0.6-1.3 [facility] ID Date Data Source [id number] 05/22/2021 12:23:00 AM EDT [facility] ([facility]) Name Value Range Interpretation Code Description Data Shasha rce(s) Supporting Document(s) Laboratory test finding (navigational concept) Laboratory test result [facility] A false negative result may occur if a s pecimen is improperly collected, transported or handled. False [...] pathogens. DISCLAIMER: Testing was performed using the [employer] SARS-CoV-2 test. This test was developed and its performance characteristics determined by [employer]. This test has not been FDA cleared [...] the authorization is terminated or revoked sooner. ID Date Data Source [id number] 05/22/2021 12:23:00 AM EDT [facility] Name Value Range Interpretation Code Description Data Shasha rce(s) Supporting Document(s) SARS coronavirus 2 RNA [Presence] in Res piratory specimen by DANIEL with probe detection NEGATIVE [facility] This lab was ordered by [facility] a nd reported by [facility]. ID Date Data Source [id number] 05/22/2021 12:23:00 AM EDT [facility] ([facility]) Name Value Range Interpretation Code Description Data Shasha rce(s) Supporting Document(s) Coronavirus 2019 Nasopharygeal Laboratory test result [facility] ([facility]) Laboratory test finding (navigational concept) Laboratory test result [facility] ([facility]) A false negative result may occur if a s pecimen is improperly collected, transported or handled. False [...] pathogens. DISCLAIMER: Testing was performed using the [employer] SARS-CoV-2 test. This test was developed and its performance characteristics determined by [employer]. This test has not been FDA cleared [...] the authorization is terminated or revoked sooner. ID Date Data Source [id number] 05/21/2021 06:48:00 PM EDT [facility] ([facility]) Name Value Range Interpretation Code Description Data Shasha rce(s) Supporting Document(s) Laboratory test finding (navigational concept) 139 meq/L 136-145 [facility] ([facility]) Laboratory test finding (navigational concept) 30.0 % 38.0-51.0 [facility] ([facility]) Laboratory test finding (navigational concept) 104 mg/dL 70-105 [facility] ([facility]) Laboratory test finding (navigational concept) 4.1 meq/L 3.5-5.1 [facility] ([facility]) Laboratory test finding (navigational concept) 4.5 mg/dL 4.5-5.3 [facility] ([facility]) Laboratory test finding (navigational concept) 107 meq/L 98-109 [facility] ([facility]) Laboratory test finding (navigational concept) 20 mg/dL 8-26 [facility] ([facility]) Laboratory test finding (navigational concept) 20.0 MM/L 23.0-27.0 [facility] ([facility]) Laboratory test finding (navigational concept) 1.6 mg/dL 0.6-1.3 [facility] ([facility]) ID Date Data Source [id number] 05/21/2021 06:31:00 PM EDT [facility] ([facility]) Name Value Range Interpretation Code Description Data Shasha rce(s) Supporting Document(s) Lactate [Mass/volume] in Serum or Plasma 0.9 mmol/L 0.4-2.0 [facility] ([facility]) Y/N query for Sepsis Lactate Rule: Y ID Date Data Source [id number] 05/14/2021 02:36:00 PM EDT [facility] ([facility]) Name Value Range Interpretation Code Description Data Shasha rce(s) Supporting Document(s) Glucose [Mass/volume] in Serum or Plasma 106 mg/dL 74-99 [facility] ([facility]) 100-125 mg/dL PRE-DIABETES/FASTING >126 mg/dL DIABETES/FASTING Urea nitrogen [Mass/volume] in Serum or Plasma 17 mg/dL 7-18 [facility] ([facility]) Sodium [Moles/volume] in Serum or Plasma 141 meq/L 136-145 [facility] ([facility]) Creatinine 1.3 mg/dL 0.6-1.3 [facility] ([facility] Carbon dioxide, total [Moles/volume] in Serum or Plasma 22 meq/L 21 -32 [facility] ([facility]) Potassium [Moles/volume] in Serum or Plasma 4.5 meq/L 3.5-5.1 [facility] ([facility]) Chloride [Moles/volume] in Serum or Plasma 109 meq/L 98-107 [facility] ([facility]) Calcium [Mass/volume] in Serum or Plasma 8.6 mg/dL 8.5-10.1 [facility] ([facility]) Alkaline phosphatase isoenzyme [Units/volume] in Serum or Pl asma 117 mg/dL 46-116 [facility] ([facility]) Total Bilirubin 0.2 mg/dL 0.2-1.0 [facility] ([facility]) Alanine aminotransferase [Enzymatic activity/volume] in Seru m or Plasma 22 U/L 12-78 [facility] ([facility]) Albumin [Mass/volume] in Serum or Plasma 3.6 g/dL 3.4-5.0 [facility] ([facility]) Aspartate aminotransferase [Enzymatic activity/volume] in Serum or Plasma 19 U/L 15-37 [facility] ([facility] ) A/G Ratio 1.16 CALC 1.00-1.90 [facility]) Proteinase 3 Ab [Units/volume] in Serum 6.7 g/dL 6.4-8.2 [facility] ([facility]) Glomerular filtration rate/1.73 sq M pre dicted among non-blacks [Volume Rate/Area] in Serum or Plasma by Creatinine-based formula (MDRD) 40 mL/min [facility] ([facility]) Glomerular filtration rate/1.73 sq M pre dicted among blacks [Volume Rate/Area] in Serum or Plasma by Creatinine-based formula (MDRD) 48 mL/min [facility] <content>CHRONIC KIDNEY DISEASE STAGING PER NKF</content>
<content></content>
<content>STAGE I & II GFR >= 60 NORMAL TO MILDLY DECREASED</content>
<content>STAGE III GFR 30-59 MODERATELY DECREASED</content>
<content>STAGE IV GFR 15-29 SEVERELY DECREASED</content>
<content>STAGE V GFR <15 VERY LITTLE GFR LEFT</content>
<content>ESRD GFR <15 ON BANQUET PREP COOK</content>
<content></content> ID Date Data Source [id number] 05/14/2021 02:36:00 PM EDT [facility] ([facility]) Name Value Range Interpretation Code Description Data Shasha rce(s) Supporting Document(s) Leukocytes [#/volume] in Blood by Automated count 5.1 x10*3/UL 4.1-10 .9 [facility] ([facility]) Erythrocytes [#/volume] in Blood by Automated count 3.42 x10*6/UL 4.2 0-6.30 [facility] ([facility]) Hemoglobin [Mass/volume] in Blood 10.1 g/dL 12.0-18.0 [facility] ([facility]) NOTE: RESULT VERIFIED. Hematocrit [Volume Fraction] of Blood by Automated count 29.8 % 3 7.0-51.0 [facility] ([facility]) MCV 87.2 fL 80.0-97.0 [facility] MCHC 33.8 g/dL 31.0-38.0 [facility]) MCH 29.5 pg 26.0-32.0 [facility]) MPV 10.4 FL 7.8-11.0 [facility]) Platelets [#/volume] in Blood by Automated count 182 x10*3/UL 140-440 [facility] Erythrocyte distribution width [Ratio] by Automated count 18.4 % 11.6-13.7 [facility] ([facility]) Lymph % 32.2 % 10.0-58.5 [facility] Neut % 59.9 % 37.0-92.0 [facility]) Mid % 7.9 % 1.7-9.3 [facility]) Lymph # 1.6 x10*3/UL 0.6-4.1 [facility] ([facility]) Mid # 0.5 x10*3/UL 0.1-0.6 [facility] ([facility]) Neut # 3.0 x10*3/UL 2.0-7.8 [facility] ([facility]) ID Date Data Source [id number] 05/06/2021 01:32:00 PM EDT [facility] ([facility]) Name Value Range Interpretation Code Description Data Shasha rce(s) Supporting Document(s) Leukocytes [#/volume] in Blood by Automated count 4.1 x10*3/UL 4.1-10 .9 [facility] ([facility]) NOTE: CBC VERIFIED Hemoglobin [Mass/volume] in Blood 10.4 g/dL 12.0-18.0 [facility] ([facility]) Erythrocytes [#/volume] in Blood by Automated count 3.63 x10*6/UL 4.2 0-6.30 [facility] ([facility]) Hematocrit [Volume Fraction] of Blood by Automated count 31.6 % 3 7.0-51.0 [facility] ([facility]) MCV 87.0 fL 80.0-97.0 [facility] MCH 28.6 pg 26.0-32.0 [facility] MCHC 32.9 g/dL 31.0-38.0 [facility] Erythrocyte distribution width [Ratio] by Automated count 18.8 % 11.6-13.7 [facility] ([facility]) Platelets [#/volume] in Blood by Automated count 220 x10*3/UL 140-440 [facility] ([facility]) MPV 9.8 FL 7.8-11.0 [facility] Lymph % 42.3 % 10.0-58.5 [facility] Mid % 6.5 % 1.7-9.3 [facility] Neut % 51.2 % 37.0-92.0 [facility] Lymph # 1.7 x10*3/UL 0.6-4.1 [facility] ([facility]) Neut # 2.1 x10*3/UL 2.0-7.8 [facility] ([facility]) Mid # 0.3 x10*3/UL 0.1-0.6 [facility] ([facility]) ID Date Data Source [id number] 05/06/2021 07:59:26 AM EDT [facility] PCName: Juan MitchellDOB: 4Provider: Albert LyJerry: 04/29/2021 Chief ComplaintChronic low back pain that radiates to the bilateral lower extremities Chief Complaint 2NYSW VAS PAIN Established: MA completing section: 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 Patient was asked and denies being seen by any Physicians since their last visit. At today's visit patient presents with their Self Implanted Devices The patient has the following implanted device(s): PACEMAKER. The patient has a glucose monitoring device. Patient is retired. The patient is being seen for a follow-up. The workers compensation date of injury is 02.05.1970. Pain Quality: (Neuropathic) burning Pain Quality: (Nociceptive) sharp Timing: constant Progression: unchanged Palliation: opioid analgesics Exacerbating: sitting, standing and Raising legs, sneezing Pain Score: a current pain level of 7/10. Active Problems 1. Cervical radiculopathy (723.4) (M54.12) 2. Chronic low back pain (724.2,338.29) (M54.5,G89.29) 3. Constipation (564.00) (K59.00) 4. 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 Lumbar radiculitis (724.4) (M54.16) 7. Myofascial pain syndrome (729.1) (M79.18) 8. Other chronic pain (338.29) (G89.29) 9. Permanent Pacemaker Type 10. Postlaminectomy syndrome, lumbar (722.83) (M96.1) 11. Sacroiliac pain (724.6) (M53.3) 12. 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) Allergies Codeine Derivatives Anaphylaxis;; Updated By: Rae Corrales; 04/07/2012 3:19:22 PM Tape [id number] TAPE Blisters;; Updated By: Gay Hurst; 09/19/2015 2:26:04 PM Cymbalta CPEP fainting; Updated By: Rae Corrales; 04/07/2012 3:19:22 PM FLU Updated By: Gay Hurst; 09/19/2015 2:26:04 PM Adhesive Tape Blisters; Rash; Updated By: Artemio Chakraborty; 07/23/2014 2:51:08 PMDenied Iodinated Contrast Media Recorded By: Joana Pastor; 04/23/2015 2:21:40 PM Latex Recorded By: Evon Mcfarlane; 12/01/2011 1:00:25 PM Current Meds amLODIPine Besylate 5 MG Oral Tablet;Therapy: (Recorded:11Mar2020) to Recorded Aspirin 81 MG Oral Tablet Delayed Release;Therapy: (Recorded:28Nov2017) to Bdsnxumg02-56-72 10pm Levothyroxine Sodium 50 MCG Oral Tablet;Therapy: 09Oct2014 to Recorded Lidocaine 4 % External Patch; Apply three patches to affected areas 12 hours on, 12hours off MDD:3;Therapy: 12Dec2019 to (Evaluate:24Aug2021) Requested for: 25Feb2021; LastRx:25Feb2021 Ordered Lisinopril 20 MG Oral Tablet;Therapy: (Recorded:14Nov2018) to Recorded Melatonin CAPS;Therapy: (Recorded:17Oct2020) to Recorded Metaxalone 800 MG Oral Tablet; TAKE 1 TABLET tid prn MDD:3;Therapy: 27Sep2011 to (Evaluate:25Jun2021) Requested for: 52Wmp4658; LastRx:25Feb2021 Ordered Metoprolol Tartrate TABS;Therapy: (Recorded:17Oct2020) to Recorded MiraLax POWD;Therapy: (Recorded:17Oct2020) to Recorded Multi For Her TABS;Therapy: (Recorded:31Aug2012) to Recorded Nitroglycerin 0.4 MG Sublingual Tablet Sublingual;Therapy: (Recorded:14Nov2018) to Recorded oxyCODONE HCl - 10 MG Oral Tablet; Take one tablets q 4-6 hours as needed for painMDD:2 TDD:60mg;Therapy: 20Ngw8079 to (Evaluate:59Qmb8554) Requested for: 83Gsi4481; LastRx:40Svl9145 OrderedLD 04.28.2021 OxyCONTIN 20 MG Oral Tablet ER 12 Hour Abuse-Deterrent; 1 P O Q 12 HOURS MDD:2;Therapy: 06Feb2019 to (Evaluate:13Uwo2603) Requested for: 75Xme9556; LastRx:66Huk5605 OrderedLD 04.29.2021 Pantoprazole Sodium 40 MG Oral Tablet Delayed Release;Therapy: (Record ed:62Rfs1277) to Recorded Polyethylene Glycol 3350 17 GM/SCOOP Oral Powder; MIX 1 CAPFUL (17GM) IN 8OUNCES OF WATER, JUICE, OR TEA AND DRINK DAILY prn constipation MDD:17grams;Therapy: 22Oct2014 to (Evaluate:27May2018) Requested for: 28Nov2017; LastRx:28Nov2017 Ordered Pravastatin Sodium TABS;Therapy: (Recorded:75Lfr7462) to Recorded Pregabalin 100 MG Oral Capsule; Take one PO TID MDD:3;Therapy: 03Jun2015 to (Evaluate:35Ysy8320) Requested for: 56Hfl0616; LastRx:54Sez9046 Aicldgp24:30am 10/17/20 rOPINIRole HCl - 1 MG Oral Tablet;Therapy: 43Jmr3528 to Recorded Synthroid 25 MCG Oral Tablet;Therapy: (Recorded:31May2012) to Recorded traZODone HCl - 50 MG Oral Tablet;Therapy: (Recorded:30Jan2018) to Recorded Past Medical History History of Chronic reflux esophagitis (530.11) (K21.00) History of acute arthritis (V13.4) (Z87.39) History of atrial fibrillation (V12.59) (Z86.79) Denied: History of blood coagulation disorder Assessed By: Albert Ly (Pain Management); Last Assessed: 19 Apr 2018 History of carpal tunnel syndrome (V12.49) (Z86.69) History of chronic renal failure syndrome (V13.09) (Z87.448) Resolved Date: 22 Mar 2017; Assessed By: Albert Ly (Pain Management); Last Assessed: 10 Aug 2016 History of hypertension (V12.59) (Z86.79) History of hypothyroidism (V12.29) (Z86.39) History of intestinal obstruction (V12.79) (Z87.19) History of low back pain (V13.59) (Z87.39) Denied: History of (V13.29) Assessed By: Albert Ly (Pain Management); Last Assessed: 19 Apr 2018 History of sinus bradycardia (V12.59) (Z86.79) History of type 2 diabetes mellitus (V12.29) (Z86.39) 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) Personal history of asthma (V12.69) (Z87.09) Denied: History of Taking Blood Thinners History of Thoracic outlet syndrome (353.0) (G54.0) Surgical History History of Back Surgery 4x History of Biopsy Of Liver 2007 History of Bladder Cystotomy History of Bladder Surgery bladder supension History of Cholecystectomy History of Colostomy History of Eye Surgery eye lid surgery History of Hernia Repair 2008 History of Hysterectomy Denied: History of Implantable Cardioverter-Defibrillator History of Nephrostomy Assessed By: Albert Ly (Pain Management); Last Assessed: 06 Aug 2020 History of Permanent pacemaker insertion VitalsVital Signs Recorded: 51Nyp9992 01:30PM Height: 5 ft 4 inWeight: 181 lb BMI Calculated: 31.07 kg/m2BSA Calculated: 1.87Systolic: 150, SittingDiastolic: 73, SittingHeart Rate: 77Respiration: 19O2 Saturation: 96Height measured w/wo shoes: w/shoesPain Scale: 7 Physical ExamGeneral: The patient is a well nourished/well developed, female, heavy set, who is in no acute distress, appears stated age and Patient is using a walker at this appointment. Gait and Station: Gait was antalgic. Psychological: Alert and oriented to person, place and time. Mood and affect are pleasant and appropriate. Judgement intact. Insight normal without delusions or hallucinations. Denies suicidal/homicidal ideation. Results/DataThis patient had a urine drug screen on 02-25-2021. Assessment 1. Postlaminectomy syndrome, lumbar (722.83) (M96.1) Plan 1. Renew: Lidocaine 4 % External Patch; Apply three patches to affected areas 12 hours on, 12 hours off MDD:3 2. Renew: oxyCODONE HCl - 10 MG Oral Tablet; Take one tablets q 4-6 hours as needed for pain MDD:2 TDD:60mgLD 9.7 3. Renew: OxyCONTIN 20 MG Oral Tablet ER 12 Hour Abuse- Deterrent (oxyCODONE HCl ER); 1 P O Q 12 HOURS MDD:2LD 9.8.2020 4. Renew: Pregabalin 100 MG Oral Capsule (Lyrica); Take one PO TID MDD:310:30am 10/17/20 5. UDS-LAB WC / NF ([facility] Urine Drug Screen); [Do Not Release]; Specimen Source:Urine; Status:In Progress - Specimen/Data Collected; Done: 29Apr2021 6. MIPS - Survey Evaluation Evaluation Status: Complete Done: 51Xdi1674Kssctb Depression Screening - Patient's PHQ-9 score is: : N/A - PHQ-9 not performed todayHave you EVER received a Pneumococcal Vaccine...? : No - Patient has never received a Pneumococcal vaccinationFLU - Have you received a flu shot in 2020 ? : No - Influenza not previously received due to patient declined or other patient reasonsBMI for Patients 18 and over : 25 or greater, BMI above normal parameters, follow-up plan documentedDo you use any kind of Tobacco? (smokes or uses smokeless tobacco): : Patient identified as a NON-Tobacco User<OBX.5.1><OBX.5.1.1>WOMEN </OBX.5.1.1><OBX.5.1.2> ANYONE >/= 65 - How many times in the past year have you had 4 or more</OBX.5.1.2></OBX.5.1> drinks in a day? : ZeroMEN < 65 - How many times in the past year have you had 5 or more drinks in a day? : N/A 7. Follow-up in 2 months Follow Up Follow-up Status: Hold For - Scheduling Requested for: 12Zuj7836Rxsmbmfd Appointment for 15 or 30 minutes : Schedule 15 minute appointment Medication:. [place] SYNTHETIC GEM PRESS OPERATOR Information: SYNTHETIC GEM PRESS OPERATOR was consulted by my designee and I have reviewed the information presented to me and find no aberrant compliance issues. Patient has been informed. General Medications Prescribed: Lidocaine . GENERAL MEDICATIONS: I advised the patient today/previously regarding treatment with the above medication(s). The risks, benefits, common side effects and alternative treatments were discussed with the patient. The provider verbalized with the patient. The patient verbalized understanding and was told to call if there were any untoward effects. Controlled Substance Prescribed: Oxycodone, pregabalin . CONTROLLED SUBSTANCE INFORMATION: I advised the patient today/previously regarding treatment with the above controlled substance and/or narcotic. The patient was then informed of the risks, benefits, and alternatives of the narcotic. The risks discussed included but were not limited to physical and/or psychological dependence, tolerance of the medication, drowsiness, sleepiness, balance/coordination problems, confusion, allergic reaction or any other abnormal symptoms. The patient was advised and agreed to use the medication only as prescribed, and not to drive, or operate heavy equipment or machinery. The patient understood and consented to both undergo a narcotic/opiate regimen and agreed to sign and comply with all of the [facility] terms of a controlled substance treatment and agreement. UDS: Patient scored as moderate opioid risk based on Opioid Risk Tool and total Morphine Equivalent Dosage.This is an established patient and is on ongoing opioid therapy. A UDS is being obtained today, the patient has previously consented to UDS as part of the Controlled Substance and Treatment Agreement. The reason for today's UDS is: patient was selected at random and scored as moderate risk on the opioid risk assessment. Creatinine has been ordered as well for specimen validity, not for kidney function. Preliminary UDS results are not final and should not be used to determine patient care or plan of treatment. Initially a qualitative immunoassay screen will be done. Any positive findings or negative findings that are out of compliance will be furth er tested with a more comprehensive quantitative confirmation LCMS study. It is part of the normal prescribing protocol of controlled substances and is considered standard of care. CONTINUE TREATMENT: Uzma will continue with the following:. Uzma is participating in a home exercise program and is encouraged to continue. - FALL PRECAUTIONS: Uzma is encouraged to use necessary assistive devices including walker. Miscellaneous: - WEIGHT LOSS: Weight loss was discussed and encouraged. Discussion/SummaryUzma is a pleasant 76 year old female with chronic low back pain and lumbar radiculopathy to be managed with medications. This patient would not be able to maintain her current level function without OxyContin, oxycodone and pregabalin and the lidocaine patches and they are medically necessary. UDS collected today. I will follow up with her in two months. Work / School NotePATIENT: if you submit this to your employer as an out of work note please be aware this includes PHI (Protected Health Information). The incident described by the patient is a competent medical cause of this injury. The patient's complaints are consistent with the history of the injury/illness. The patient's history of the injury/illness is consistent with my objective findings. The patient is not working at this time. Patient is on permanent disability. Disability rating is 100 %. Signatures Electronically signed by : CAREY Jessica; Apr 29 2021 1:50PM EST (Author) Electronically signed by : Viktor Law MD; Apr 30 2021 1:05PM EST Name Value Range Interpretation Code Description Data Shasha rce(s) Supporting Document(s) ID Date Data Source [id number] 04/23/2021 07:55:00 PM EDT [facility] Name Value Range Interpretation Code Description Data Shasha rce(s) Supporting Document(s) SARS coronavirus 2 RNA [Presence] in Res piratory specimen by DANIEL with probe detection NEGATIVE [facility] This lab was ordered by [facility] a nd reported by [facility]. ID Date Data Source [id number] 04/23/2021 05:00:00 PM EDT [facility] Name Value Range Interpretation Code Description Data Shasha rce(s) Supporting Document(s) SARS-CoV-2 RNA Resp Ql DANIEL+probe NOT DETECTED [facility] This lab was ordered by [facility] tor[facility] and reported by [facility]. ID Date Data Source [id number] 04/09/2021 12:50:00 PM EDT [facility] Name Value Range Interpretation Code Description Data Shasha rce(s) Supporting Document(s) SARS-CoV-2 (COVID 19) NEGATIVE - SARS-CoV-2 (COVID19) [facility] This lab was ordered by [facility] a nd reported by [facility]. ID Date Data Source [id number] 04/08/2021 12:00:00 AM EDT [facility] Name Value Range Interpretation Code Description Data Shasha rce(s) Supporting Document(s) SARS-CoV2 Rapid Antigen Negative [facility] lab [facility] and reported by [facility]. ID Date Data Source [id number] 04/18/2021 11:06:35 AM EDT [facility], PCName: Juan MitchellDOB: 4Provider: Albert LyMACHO: 02/25/2021 Chief ComplaintChronic low back pain, increased pain and swelling into the right lower extremity Chief Complaint 2NYSW VAS PAIN Established: JC completing section: poncho [place] History of Present IllnessA Urine Drug Screen was ordered for Uzma Mitchell and collected on site today 02/25/2021. Creatinine has been ordered as well for specimen validity, not for kidney function. Preliminary UDS results are not final and should not be used to determine patient care or plan of treatment. Initially a qualitative immunoassay screen will be done. Please note this is not a dip test. Any positive findings or negative findings that are out of compliance will be further tested with a more comprehensive quantitative confirmation LCMS study. It is part of the normal prescribing protocol of controlled substances and is considered standard of care. Recent test/procedures: Patient was asked and den ies having any tests since their last visit. Patient was asked and denies being seen by any Physicians since their last visit. The patient was last seen by a [facility] provider on 12-25-20. At today's visit patient presents with their Self Implanted Devices The patient has the following implanted device(s): pacemaker. The patient does not have a glucose monitoring device. Patient is not currently working. The patient is being seen for a workers compensation follow-up. The workers compensation date of injury is 02-05-69. Pain Quality: (Neuropathic) burning Pain Quality: (Nociceptive) sharp and stabbing Timing: constant Progression: unchanged Palliation: non- opioid analgesics, opioid analgesics and rest Exacerbating: bending, sitting and standing Pain Score: a current pain level of 7/10. Active Problems 1. Cervical radiculopathy (723.4) (M54.12) 2. Chronic low back pain (724.2,338.29) (M54.5,G89.29) 3. Constipation (564.00) (K59.00) 4. 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 Lumbar radiculitis (724.4) (M54.16) 7. Myofascial pain syndrome (729.1) (M79.18) 8. Other chronic pain (338.29) (G89.29) 9. Permanent Pacemaker Type 10. Postlaminectomy syndrome, lumbar (722.83) (M96.1) 11. Sacroiliac pain (724.6) (M53.3) 12. 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) Allergies Codeine Derivatives Anaphylaxis;; Updated By: Rae Corrales; 04/07/2012 3:19:22 PM Tape 1X5YD TAPE Blisters;; Updated By: Gay Hurst; 09/19/2015 2:26:04 PM Cymbalta CPEP fainting; Upd ated By: Rae Corrales; 04/07/2012 3:19:22 PM FLU Updated By: Gay Hurst; 09/19/2015 2:26:04 PM Adhesive Tape Blisters; Rash; Updated By: Artemio Chakraborty; 07/23/2014 2:51:08 PMDenied Iodinated Contrast Media Recorded By: Joana Pastor; 04/23/2015 2:21:40 PM Latex Recorded By: Evon Mcfarlane; 12/01/2011 1:00:25 PM Current Meds amLODIPine Besylate 5 MG Oral Tablet;Therapy: (Recorded:24Ubg3892) to Recorded Aspirin 81 MG Oral Tablet Delayed Release;Therapy: (Recorded:28Nov2017) to Fiqnahah22-11-82 10pm Levothyroxine Sodium 50 MCG Oral Tablet;Therapy: 09Oct2014 to Recorded Lidocaine 4 % External Patch; Apply three patches to affected areas 12 hours on, 12hours off MDD:3;Therapy: 12Dec2019 to (Evaluate:09Yyd0982) Requested for: 17Oct2020; LastRx:17Oct2020 Ordered Lisinopril 20 MG Oral Tablet;Therapy: (Recorded:14Nov2018) to Recorded Melatonin CAPS;Therapy: (Recorded:17Oct2020) to Recorded Metaxalone 800 MG Oral Tablet; TAKE 1 TABLET tid prn MDD:3;Therapy: 27Sep2011 to (Evaluate:24Apr2021) Requested for: 25Dec2020; LastRx:25Dec2020 Ordered Metoprolol Tartrate TABS;Therapy: (Recorded:17Oct2020) to Recorded MiraLax POWD;Therapy: (Recorded:17Oct2020) to Recorded Multi For Her TABS;Thera py: (Recorded:31Aug2012) to Recorded Nitroglycerin 0.4 MG Sublingual Tablet Sublingual;Therapy: (Recorded:14Nov2018) to Recorded oxyCODONE HCl - 10 MG Oral Tablet; Take one tablets q 4-6 hours as needed for painMDD:2 TDD:60mg;Therapy: 22Mar2017 to (Evaluate:31Yrh7477) Requested for: 23Jan2021; LastRx:23Jan2021 Cwxvbxr4-0-22 OxyCONTIN 20 MG Oral Tablet ER 12 Hour Abuse-Deterrent; 1 P O Q 12 HOURS MDD:2;Therapy: 06Feb2019 to (Evaluate:90Tsn0629) Requested for: 23Jan2021; LastRx:23Jan2021 Vfajqss2-9-18 Pantoprazole Sodium 40 MG Oral Tablet Delayed Release;Therapy: (Recorded:11Mar2020) to Recorded Polyethylene Glycol 3350 17 GM/SCOOP Oral Powder; MIX 1 CAPFUL (17GM) IN 8OUNCES OF WATER, JUICE, OR TEA AND DRINK DAILY prn constipation MDD:17grams;Therapy: 22Oct2014 to (Evaluate:27May2018) Requested for: 28Nov2017; LastRx:28Nov2017 Ordered Pravastatin Sodium TABS;Therapy: (Recorded:07Apr2012) to Recorded Pregabalin 100 MG Oral Capsule; Take one PO TID MDD:3;Therapy: 03Jun2015 to (Evaluate: zr0409) Requested for: 25Dec2020; LastRx:25Dec2020 Xeiuakm11:30am 10/17/20 rOPINIRole HCl - 1 MG Oral Tablet;Therapy: 07Nif7849 to Recorded Synthroid 25 MCG Oral Tablet;Therapy: (Recorded:31May2012) to Recorded traZODone HCl - 50 MG Oral Tablet;Therapy: (Recorded:30Jan2018) to Recorded Past Medical History History of Chronic reflux esophagitis (530.11) (K21.00) History of acute arthritis (V13.4) (Z87.39) History of atrial fibrillation (V12.59) (Z86.79) Denied: History of blood coagulation disorder Assessed By: Albert Ly (Pain Management); Last Assessed: 19 Apr 2018 History of carpal tunnel syndrome (V12.49) (Z86.69) History of chronic renal failure syndrome (V13.09) (Z87.448) Resolved Date: 22 Mar 2017; Assessed By: Albert Ly (Pain Management); Last Assessed: 10 Aug 2016 History of hypertension (V12.59) (Z86.79) History of hypothyroidism (V12.29) (Z86.39) History of intestinal obstruction (V12.79) (Z87.19) History of low back pain (V13.59) (Z87.39) Denied: History of (V13.29) Assessed By: Albert Ly (Pain Management); Last Assessed: 19 Apr 2018 History of sinus bradycardia (V12.59) (Z86.79) History of type 2 diabetes mellitus (V12.29) (Z86.39) 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) Personal history of asthma (V12.69) (Z87.09) Denied: History of Taking Blood Thinners History of Thoracic outlet syndrome (353.0) (G54.0) Surgical History History of Back Surgery 4x History of Biopsy Of Liver 2007 History of Bladder Cystotomy History of Bladder Surgery bladder supension History of Cholecystectomy History of Colostomy History of Eye Surgery eye lid surgery History of Hernia Repair 2007 History of Hysterectomy Denied: History of Implantable Cardioverter-Defibrillator History of Nephrostomy Assessed By: Albert Ly (Pain Management); Last Assessed: 06 Aug 2020 History of Permanent pacemaker insertion VitalsVital Signs Recorded: 23Jtw2262 01:05PM Height: 5 ft 3 inWeight: 179 lb BMI Ca lculated: 31.71BSA Calculated: 1.84Systolic: 114, SittingDiastolic: 72, SittingHeart Rate: 80Respiration: 20Pain Scale: 7Depression: 6 Physical ExamGeneral: The patient is a well nourished/well developed, female, heavy set, who is in no acute distress, appears stated age and Patient is using a walker at this appointment. Gait and Station: Gait was antalgic. Psychological: Alert and oriented to person, place and time. Mood and affect are pleasant and appropriate. Judgement intact. Insight normal without delusions or hallucinations. Denies suicidal/homicidal ideation. Results/DataThis patient had a urine drug screen on 08-06-2020. Results are in compliance. Assessment 1. Lumbar radiculitis (724.4) (M54.16) Plan 1. Renew: Lidocaine 4 % External Patch; Apply three patches to affected areas 12 hours on, 12 hours off MDD:3 2. Renew: Metaxalone 800 MG Oral Tablet (Skelaxin); TAKE 1 TABLET tid prn MDD:3 3. Renew: oxyCODONE HCl - 10 MG Oral Tablet; Take one tablets q 4-6 hours as needed for pain MDD:2 TDD:81eb4-0-17 4. Renew: OxyCONTIN 20 MG Oral Tablet ER 12 Hour Abuse-Deterrent (oxyCODONE HCl ER); 1 P O Q 12 HOURS MDD:27-7-21 5. UDS-LAB WC / NF ([facility] Urine Drug Screen); [Do Not Release]; Specimen Source:Urine; Status:In Progress - Specimen/Data Collected; Done: 19Gja1422 6. MIPS - Survey Evaluation Evaluation Status: Complete Done: 75Nfb7119Usbnum Depression Screening - Patient's PHQ-9 score is: : 5 - 9 Mild ...FUP plan requiredHave you EVER received a Pneumococcal Vaccine...? : Yes - Patient has previously received a Pneumococcal vaccinationFLU - Have you received a flu shot in 2020 ? : No - Influenza not previously received due to patient declined or other patient reasonsBMI for Patients 18 and over : 25 or greater, BMI above normal parameters, follow-up plan documentedDo you use any kind of Tobacco? (smokes or uses smokeless tobacco): : Patient identified as a NON-Tobacco User<OBX.5.1><OBX.5.1.1>WOMEN </OBX.5.1.1><OBX.5.1.2> ANYONE >/= 65 - How many times in the past year have you had 4 or more</OBX.5.1.2></OBX.5.1> drinks in a day? : ZeroMEN < 65 - How many times in the past year have you had 5 or more drinks in a day? : N/A 7. Follow-up in 2 months Follow Up Follow-up Status: Hold For - Scheduling Requested for: 58Qcg3333Dkvcgayl Appointment for 15 or 30 minutes : Schedule 15 minute appointment Medication:. [place] SYNTHETIC GEM PRESS OPERATOR Information: SYNTHETIC GEM PRESS OPERATOR was consulted by my designee and I have reviewed the information presented to me and find no aberrant compliance issues. Patient has been informed. General Medications Prescribed: Lidocaine, metaxalone . GENERAL MEDICATIONS: I advised the patient today/previously regarding treatment with the above medication(s). The risks, benefits, common side effects and alternative treatments were discussed with the patient. The provider verbalized with the patient. The patient verbalized understanding and was told to call if there were any untoward effects. Controlled Substance Prescribed: Oxycodone, pregabalin . CONTROLLED SUBSTANCE INFORMATION: I advised the patient today/previously regarding treatment with the above controlled substance and/or narcotic. The patient was then informed of the risks, benefits, and alternatives of the narcotic. The risks discussed included but were not limited to physical and/or psychological dependence, tolerance of the medication, drowsiness, sleepiness, balance/coordination problems, confusion, allergic reaction or any other abnormal symptoms. The patient was advised and agreed to use the medication only as prescribed, and not to drive, or operate heavy equipment or machinery. The patient understood and consented to both undergo a narcotic/opiate regimen and agreed to sign and comply with all of the [facility] terms of a controlled substance treatment and agreement. UDS: Patient scored as moderate opioid risk based on Opioid Risk Tool and total Morphine Equivalent Dosage.This is an established patient and is on ongoing opioid therapy. A UDS is being obtained today, the patient has previously consented to UDS as part of the Controlled Substance and Treatment Agreement. The reason for today's UDS is: patient was selected at random and scored as moderate risk on the opioid risk assessment. Creatinine has been ordered as well for specimen validity, not for kidney function. Preliminary UDS results are not final and should not be used to determine patient care or plan of treatment. Initially a qualitative immunoassay screen will be done. Any positive findings or negative findings that are out of compliance will be further tested with a more comprehensive quantitative confirmation LCMS study. It is part of the normal prescribing protocol of controlled substances and is considered standard of care. Treatment includes: FOLLOW UP: The patient should have a follow up visit in 2 months. CONTINUE TREATMENT: Uzma will continue with the following:. Uzma is participating in a home exercise program and is encouraged to continue. - FALL PRECAUTIONS: Uzma is encouraged to use necessary assistive devices including walker. Miscellaneous: - WEIGHT LOSS: Weight loss was discussed and encouraged. PHQ-9 Patient's PHQ-9 score was 5-9 suggesting a Mild level of Depression. Symptoms were discussed with the pt and Tx options were reviewed. Follow-up on depression symptom level at next visit and determine whether patient requires Behavioral Health follow-up at that time. Discussion/SummaryUzma is a pleasant 75 year old female with chronic low back pain and radicular symptoms to the right lower extremity and swelling all due to work-related injury.This patient has failed physical therapy and all other conservative measures to this point. I refilled OxyContin, oxycodone, pregabalin and metaxalone. UDS collected today. I will follow up with her in two months. Work / School NotePATIENT: if you submit this to your employer as an out of work note please be aware this includes PHI (Protected Health Information). The incident described by the patient is a competent medical cause of this injury. The patient's complaints are consistent with the history of the injury/illness. The patient's history of the injury/illness is consistent with my objective findings. The patient is not working at this time. Patient is on permanent disability. Disability rating is 100 %. Signatures Electronically signed by : CAREY Jessica; Feb 25 2021 1:25PM EST (Author) Electronically signed by : Carter Rankin MD; Feb 25 2021 3:14PM EST Name Value Range Interpretation Code Description Data Shasha rce(s) Supporting Document(s) ID Date Data Source [id number] 02/24/2021 01:42:00 PM EDT [facility] ([facility]) Name Value Range Interpretation Code Description Data Shasha rce(s) Supporting Document(s) Cholesterol [Mass/volume] in Serum or Plasma 119 mg/dL 131-200 [facility] ([facility]) Cholesterol in LDL [Mass/volume] in Serum or Plasma by calcu lation 51 CALC 50-159 [facility] ([facility]) Cholesterol in HDL [Mass/volume] in Serum or Plasma 50 mg/dL 35-60 [facility] ([facility]) Triglyceride [Mass/volume] in Serum or Plasma 92 mg/dL 30-150 [facility] ([facility]) ID Date Data Source [id number] 02/24/2021 01:42:00 PM EDT [facility] ([facility]) Name Value Range Interpretation Code Description Data Shasha rce(s) Supporting Document(s) Glucose [Mass/volume] in Serum or Plasma 121 mg/dL 74-99 [facility] ([facility]) 100-125 mg/dL PRE-DIABETES/FASTING >126 mg/dL DIABETES/FASTING Urea nitrogen [Mass/volume] in Serum or Plasma 13 mg/dL 7-18 [facility] ([facility]) Creatinine 1.3 mg/dL 0.6-1.3 [facility] Sodium [Moles/volume] in Serum or Plasma 142 meq/L 136-145 [facility] ([facility]) Potassium [Moles/volume] in Serum or Plasma 3.8 meq/L 3.5-5.1 [facility] ([facility]) Carbon dioxide, total [Moles/volume] in Serum or Plasma 30 meq/L 21 -32 [facility] ([facility]) Chloride [Moles/volume] in Serum or Plasma 107 meq/L 98-107 [facility] ([facility]) Alkaline phosphatase isoenzyme [Units/volume] in Serum or Pl asma 105 mg/dL 46-116 [facility] ([facility]) Calcium [Mass/volume] in Serum or Plasma 8.7 mg/dL 8.5-10.1 [facility] ([facility]) Total Bilirubin 0.3 mg/dL 0.2-1.0 [facility] ([facility]) Alanine aminotransferase [Enzymatic activity/volume] in Seru m or Plasma 15 U/L 12-78 [facility] ([facility]) Aspartate aminotransferase [Enzymatic activity/volume] in Serum or Plasma 14 U/L 15-37 [facility] ([facility] ) Albumin [Mass/volume] in Serum or Plasma 3.5 g/dL 3.4-5.0 [facility] ([facility]) Glomerular filtration rate/1.73 sq M pre dicted among non-blacks [Volume Rate/Area] in Serum or Plasma by Creatinine-based formula (MDRD) 40 mL/min [facility] ([facility]) A/G Ratio 1.00 CALC 1.00-1.90 [facility] Proteinase 3 Ab [Units/volume] in Serum 7.0 g/dL 6.4-8.2 [facility] Glomerular filtration rate/1.73 sq M pre dicted among blacks [Volume Rate/Area] in Serum or Plasma by Creatinine-based formula (MDRD) 48 mL/min [facility] <content>CHRONIC KIDNEY DISEASE STAGING PER NKF</content>
<content></content>
<content>STAGE I & II GFR >= 60 NORMAL TO MILDLY DECREASED</content>
<content>STAGE III GFR 30-59 MODERATELY DECREASED</content>
<content>STAGE IV GFR 15-29 SEVERELY DECREASED</content>
<content>STAGE V GFR <15 VERY LITTLE GFR LEFT</content>
<content>ESRD GFR <15 ON BANQUET PREP COOK</content>
<content></content> ID Date Data Source [id number] 02/24/2021 01:42:00 PM EDT [facility] ([facility]) Name Value Range Interpretation Code Description Data Shasha rce(s) Supporting Document(s) Hemoglobin A1c/Hemoglobin.total in Blood 6.5 % [facility] Lab Result Notes: Pre-Diabetes 5.7 - 6.4 % Diabetes = or > 6.5% Glucose mean value [Mass/volume] in Blood Estimated fr om glycated hemoglobin 140 mg/dL 60-110 [facility] ([facility] ) ID Date Data Source [id number] 02/24/2021 01:42:00 PM EDT [facility] ([facility]) Name Value Range Interpretation Code Description Data Shasha rce(s) Supporting Document(s) Leukocytes [#/volume] in Blood by Automated count 3.8 x10*3/UL 4.1-10 .9 [facility] ([facility]) NOTE: CBC VERIFIED Erythrocytes [#/volume] in Blood by Automated count 3.16 x10*6/UL 4.2 0-6.30 [facility] Hemoglobin [Mass/volume] in Blood 8.6 g/dL 12.0-18.0 [facility] Hematocrit [Volume Fraction] of Blood by Automated count 25.5 % 3 7.0-51.0 [facility] ([facility]) MCV 80.6 fL 80.0-97.0 [facility]) MCH 27.3 pg 26.0-32.0 [facility]) Platelets [#/volume] in Blood by Automated count 217 x10*3/UL 140-440 [facility] Erythrocyte distribution width [Ratio] by Automated count 15.5 % 11.6-13.7 [facility] ([facility]) MCHC 33.9 g/dL 31.0-38.0 [facility]) Lymph % 35.2 % 10.0-58.5 [facility] ([facility]) Mid % 6.9 % 1.7-9.3 [facility] ([facility]) MPV 10.1 FL 7.8-11.0 [facility] ([facility]) Mid # 0.3 x10*3/UL 0.1-0.6 [facility] ([facility]) Lymph # 1.3 x10*3/UL 0.6-4.1 [facility] ([facility]) Neut % 57.9 % 37.0-92.0 [facility]) Neut # 2.2 x10*3/UL 2.0-7.8 [facility] ([facility]) ID Date Data Source [id number] 02/24/2021 01:42:00 PM EDT [facility] ([facility]) Name Value Range Interpretation Code Description Data Shasha rce(s) Supporting Document(s) Hemoglobin A1c/Hemoglobin.total in Blood Laboratory test result [facility] ([facility]) ID Date Data Source [id number] 02/14/2021 11:30:04 AM EDT [facility] Name Value Range Interpretation Code Description Data Shasha rce(s) Supporting Document(s) &PDF [facility] BVBHRy6zUfEYPaBp67/YZFjfVUZkm3SeMZdnYIl2UBctBGOoC4HijAenGEKXKCaCRGvENSFABmWEELJI 0b3 [file] o+Ss1Cm6XtYMJpDMcBlSFeCTQdQzAVUTHa/5+HxBV++f//field rep+438dEFMuV8R3MRq+GuE4XnOC/wXIL0 DSf+n//24tKInQUZlsVN9ywO1N7G06xkquVUXv7aS2An+BAr0+J/+lQwX8f/8Hg3/WSPU2u5AXpCeFR3 ICJ3tSm/fxJ40jkY8pYQKEBR6LOE2KRM1xo3LkXXEj XNuvvcEdEjeWFeFfUPDuu6EwRWv6RB1HWWCjRYveWN2ZV3KqUKC1M6Y7PiQ3sNJhSY6tA9SaKqMfVJ8j rUf4J8VctIUJJXGKk00pj81gdlIhDN3Ju6evadBsSQFgQ9WholwxNLROMi3JtUR6iXOwQw4UKDnabRQd FNOrKYXiO4XbRCAxJV8FzSf8IBYcKa2JlFV2IWDfP5 1cLA8WGhWqQ7NSIBUuOEVtKSIoGbIPGv2+EZvelSDaSV8TWhjM+///PwMYBGRUQBADbvAfDECKEyqIV4 +fWCxxeX4hEe5FHfSvyw+hoYFE/xaQqJ64+ELWghQFHqjRgTV+FQmtrtdaH5wLQsmsv7evW3Sd0yVX3U KpHggiIiJAuhKw+SYyKKWXD4c2FVlevcJczFEeFD6U UlXiDT0bbg9HBmKoMQHwQeiMRcdfECujfrTbPbjJXzQbTGTbOlzOEkd0ZVafET6Jbg7xV7O0IBqnQCAU U6VtvDYjDU5qS2NOZ7vpVEakLd4JPdIbB6WobkTpTLuaI0JcHEZkRCZkSf7UTGPhOC2LIKSxKjOoQXBS KnCsZDWkInApIOOiLYMQXb1RUdNzD9vPYykxF8EnUM tkX0pxDuMqMWxiSLKSRHppZQAbR6uwJyFdAJaiDKCTYNkhGVMlQ7wtMbDoWSyxTFVSPElwGGXjN3bnQv HsBjEmBZWKPDlkUGCnE2dyEaLzNwVkEPGCIMogZTNmO5sqMtUaAdKrBJVFVh3RQpBnV4X7lStDpGQ1VY B6OK9EGhSFYtGdFPa5V3W2hYRqD6G4kVkHwQG8UT8F WE6KEUNbBZ4+DvOzP8VLQGnQFLG5FG3JpQGyGL1XaVUNN4ZtzVDdVd2gVSVfqTuemKy+JbXoA0WZGBGQ OPO2HT8ImCYaSV6UtWRQS5FefACyZy9nOEeyZhXhPJ5gMQ9+RH4EUFAPFnIQNfObXKduYUxoMFTtQKe5 D4E5BGBhG5KVK9B3U5b9g4xsvf6+KJ5DEWUzW1OPRB ZTZaNvRLwwITlhJMEiAUn5L7P4TKImL9FLO2ggC2h8NV0+PiANCiAgID4+DQo+Hc5FXZ2oi8CsYCvtBZ NfNL2hik6LSUmfMNFyW3OkUMXiQUwcU3PlrShoVL3YYFjbLQggOT7CPTEnTKE1EP6+KSeyxOYdYJ9RNy w/nRObW2yylFMhTJvfpr6g28p/IzTvKO6xUcVMUJ4y W3PpsRf8ugNSyt7GY8vqMvsiHl1+YTgoCOo7EdgluM9ucLQjqZv4zBO6hf8tZm6mGUwdQMsrjH1jzkI8 tD0xTMQkBjS8dpP6wOQ8TR5wLt8GQLXaMFxmTKA1QiBCZVundX0iIsEuIl8vmPN5kBwnY6d8nz23Be3m bnsiRTy8RI7fVb3vWm4kNFIol2huaFZ8IV4vExk+DQ weIJKrVV9dXMH3UxPQEh5UMEF2M3p4yQ3qqWH6AB9FGvVmKNBnNDMfGBXkJZDfLVPpJTPkUSZdMYUqSK AgICAgICAgICAgICAgICAgICAgICAgICAgICAgICAgICAgICAgICAgICAgICAgICAgICAgICAgICAgIC AgICAgICAgICAgICANCiAgICAgICAgICAgICAgICAg ICAgICAgICAgICAgICAgICAgICAgICAgICAgICAgICAgICAgICAgICAgICAgICAgICAgICAgICAgICAg ICAgICAgICAgICAgICAgICAgICAgICANCiAgICAgICAgICAgICAgICAgICAgICAgICAgICAgICAgICAg ICAgICAgICAgICAgICAgICAgICAgICAgICAgICAgIC AgICAgICAgICAgICAgICAgICAgICAgICAgICAgICAgICANCiAgICAgICAgICAgICAgICAgICAgICAgIC AgICAgICAgICAgICAgICAgICAgICAgICAgICAgICAgICAgICAgICAgICAgICAgICAgICAgICAgICAgIC AgICAgICAgICAgICAgICANCiAgICAgICAgICAgICAg ICAgICAgICAgICAgICAgICAgICAgICAgICAgICAgICAgICAgICAgICAgICAgICAgICAgICAgICAgICAg ICAgICAgICAgICAgICAgICAgICAgICAgICANCiAgICAgICAgICAgICAgICAgICAgICAgICAgICAgICAg ICAgICAgICAgICAgICAgICAgICAgICAgICAgICAgIC AgICAgICAgICAgICAgICAgICAgICAgICAgICAgICAgICAgICANCiAgICAgICAgICAgICAgICAgICAgIC AgICAgICAgICAgICAgICAgICAgICAgICAgICAgICAgICAgICAgICAgICAgICAgICAgICAgICAgICAgIC AgICAgICAgICAgICAgICAgICANCiAgICAgICAgICAg ICAgICAgICAgICAgICAgICAgICAgICAgICAgICAgICAgICAgICAgICAgICAgICAgICAgICAgICAgICAg ICAgICAgICAgICAgICAgICAgICAgICAgICAgICANCiAgICAgICAgICAgICAgICAgICAgICAgICAgICAg ICAgICAgICAgICAgICAgICAgICAgICAgICAgICAgIC AgICAgICAgICAgICAgICAgICAgICAgICAgICAgICAgICAgICAgICANCiAgICAgICAgICAgICAgICAgIC AgICAgICAgICAgICAgICAgICAgICAgICAgICAgICAgICAgICAgICAgICAgICAgICAgICAgICAgICAgIC AgICAgICAgICAgICAgICAgICAgICANCjw/gNMnU5jm lDRitjO0M5gdSo0LDk5CXH1oi5KtZOCdGWkiduGrHgzFUoAsXCFyPddMFoj8PQjiYZ4JrKIbZ4XkZ5Yt URjeCD4SEDEeQOYihWRlFSLaZOTmEaO9NUAjGHfdHW6SmEWcNCndGGUsBPOyRdQtYWUgOD8XRFOeO514 hjNjVh7LFg9CMxVfMC3aks1KLwJdEPPiDfkPIml0AJ quON3LjKIwT5VduYQqs0mGVjPbX7WVALNySPPgQl8FXWGsYkBgYDHqINtgZJ1pVGRhSMLSwPmhcmZ2ZA 0IOW6rcnPuMM2JZqEmVi4qZy3GXgLwI9GaT8UxZZHcCYROUMohAS2PCVRzDBC2IAEvHCGiQTGRSgJzU4 4mTS9ZS1Rxo99qWaM3VXWfIoFwPSndLI17fFdujgGv yQRtlLqrZQ0VQj9+OBebpyDrBihCTivsWGIIRnKqQhTLMlVyGINbZTGvEMPzZcY2IaIqBf7HDGWcFAOp ECBlTvJxWEWeKTXiHCnfOCYgPTMsZrS0LFXjHLIjKU2PCpFfIHUlBLG3TDnxEMBdIWCthd0FYDDgPDPn ANT8LZDaYECeFKUiUUbdBHRpDYCnCzt1IXYeNEUrPP 8UNeCaPLJjAVB9DZRrDQXoHEObvx0SKAXyTOGlPUUmHDUxFNPnWUHgRZcaDWEzZBM8WNU6IWGuZWKoYK 4ADhVuGZTfZQC2BPNdUPMoJHJjop1FXWRhUKSeKBa8NOAxLZWiOHTsGUqoDTSvALU8HFriBMWkRHAsOK 7HVjKmIDQpEZffVlcnTBLcHHBugo5USOYrIIOmSkZn MCVaLZZyDBQuVJmvXZWgLAJ4KRA2BRRqODJwIL5OSlRoPBZxGSj9VjdbYAHtVPOcvu2CDFNnWTNbDLJ0 XKPhQEIaZIYrUZhwYWNbGES2FFY3CVGdIIHbZB1YMmIjMXAeJGzhKUedJDDnZCDxhq0VGIRrHDHfWJZr KILiVPQtNLAvICiwROAbPDX8TbV2GNZdMWLkCB9LKj HeSCTvWYCvBRBeLJHaKDMbdl2JYQHdHELiMKWpAdHjSGHcMHHfVOltKWImYNLaTrD4KPNfQJPvOL6BOb HyRZOsHUJbZZoaAFMvYYUotk3AGLJeMYMxBkH4PGScWKYyKCMvCKw3mzLinIAcPFw3OF7UP1ZmyfVvDk PLFt8Hf403NVP6FYOcPd5EJ8srRo3eGZPrECIFMm3R KMk5MKxyGrD2XSd4IVI0MTqsEAUrA6G6TjPgDTBmEOg4YKG+QWq6XgQkBGdmBMLfTXLqQKC3RfYfJbdh FhQ1HHT5Vrd3PK6yMZDGGm3+ISxzlMLazPghEEEKVsPqIqX8UDniRGEYAm0E ID Date Data Source [id number] 12/26/2020 03:20:00 PM EDT [facility] DATE OF EXAMINATION: 12/26/2020 14:59 EDT DOP LESLYE UNILATERAL HISTORY: Edema pain DVT Right LOWER EXTREMITY 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 FINDINGS: Common femoral and superficial femoral veins were interrogated throughout theircourse, revealing easy compressibility and appropriate augmentation. Thepopliteal vessels are also easily compressible and show no signs of intraluminalthrombus formation. IMPRESSION: Negative study for deep venous thrombosis in the Right lower extremity. 4 x 1 cm popliteal Valdivia's cyst. Ann-Marie ctronically signed in PS360 by: Jose Elias Brito M.D. 12/26/2020 15:15 EDT Name Value Range Interpretation Code Description Data Shasha rce(s) Supporting Document(s) ID Date Data Source [id number] 12/26/2020 12:12:00 PM EDT [facility] ([facility]) Name Value Range Interpretation Code Description Data Shasha rce(s) Supporting Document(s) Urea nitrogen [Mass/volume] in Serum or Plasma 17 mg/dL 7-18 [facility] ([facility]) Glucose [Mass/volume] in Serum or Plasma 111 mg/dL 74-99 [facility] ([facility]) 100-125 mg/dL PRE-DIABETES/FASTING >126 mg/dL DIABETES/FASTING Potassium [Moles/volume] in Serum or Plasma 4.2 meq/L 3.5-5.1 [facility] ([facility]) Sodium [Moles/volume] in Serum or Plasma 143 meq/L 136-145 [facility] ([facility]) Creatinine 1.3 mg/dL 0.6-1.3 [facility] Carbon dioxide, total [Moles/volume] in Serum or Plasma 27 meq/L 21 -32 [facility] ([facility]) Calcium [Mass/volume] in Serum or Plasma 8.5 mg/dL 8.5-10.1 [facility] ([facility]) Chloride [Moles/volume] in Serum or Plasma 108 meq/L 98-107 [facility] ([facility]) Aspartate aminotransferase [Enzymatic activity/volume] in Serum or Plasma 19 U/L 15-37 [facility] ([facility] ) Alkaline phosphatase isoenzyme [Units/volume] in Serum or Pl asma 111 mg/dL 46-116 [facility] ([facility]) Total Bilirubin 0.3 mg/dL 0.2-1.0 [facility] ([facility]) Alanine aminotransferase [Enzymatic activity/volume] in Seru m or Plasma 20 U/L 12-78 [facility] ([facility]) Proteinase 3 Ab [Units/volume] in Serum 7.0 g/dL 6.4-8.2 [facility] ([facility]) Albumin [Mass/volume] in Serum or Plasma 3.7 g/dL 3.4-5.0 [facility] ([facility]) A/G Ratio 1.12 CALC 1.00-1.90 [facility] Glomerular filtration rate/1.73 sq M pre dicted among non-blacks [Volume Rate/Area] in Serum or Plasma by Creatinine-based formula (MDRD) 40 mL/min [facility] ([facility]) Glomerular filtration rate/1.73 sq M pre dicted among blacks [Volume Rate/Area] in Serum or Plasma by Creatinine-based formula (MDRD) 48 mL/min [facility] ([facility]) <content>CHRONIC KIDNEY DISEASE STAGING PER NKF</content>
<content></content>
<content>STAGE I & II GFR >= 60 NORMAL TO MILDLY DECREASED</content>
<content>STAGE III GFR 30-59 MODERATELY DECREASED</content>
<content>STAGE IV GFR 15-29 SEVERELY DECREASED</content>
<content>STAGE V GFR <15 VERY LITTLE GFR LEFT</content>
<content>ESRD GFR <15 ON BANQUET PREP COOK</content>
<content></content> ID Date Data Source [id number] 12/26/2020 12:12:00 PM EDT [facility] ([facility]) Name Value Range Interpretation Code Description Data Shasha rce(s) Supporting Document(s) Hemoglobin [Mass/volume] in Blood 8.9 g/dL 12.0-18.0 [facility] ([facility]) Leukocytes [#/volume] in Blood by Automated count 5.2 x10*3/UL 4.1-10 .9 [facility] ([facility]) NOTE: CBC VERIFIED Erythrocytes [#/volume] in Blood by Automated count 3.34 x10*6/UL 4.2 0-6.30 [facility] ([facility]) MCV 80.4 fL 80.0-97.0 [facility]) MCH 26.7 pg 26.0-32.0 [facility]) Hematocrit [Volume Fraction] of Blood by Automated count 26.8 % 3 7.0-51.0 [facility] ([facility]) Erythrocyte distribution width [Ratio] by Automated count 15.7 % 11.6-13.7 [facility] ([facility]) MCHC 33.2 g/dL 31.0-38.0 [facility] ([facility]) MPV 10.1 FL 7.8-11.0 [facility] ([facility]) Lymph % 30.9 % 10.0-58.5 [facility] ([facility]) Platelets [#/volume] in Blood by Automated count 206 x10*3/UL 140-440 [facility] ([facility]) Neut % 63.3 % 37.0-92.0 [facility] Lymph # 1.6 x10*3/UL 0.6-4.1 [facility] ([facility]) Mid # 0.3 x10*3/UL 0.1-0.6 [facility] ([facility]) Mid % 5.8 % 1.7-9.3 [facility] Neut # 3.3 x10*3/UL 2.0-7.8 [facility] ([facility]) ID Date Data Source [id number] 01/26/2021 12:13:57 PM EDT [facility], PCName: Juan MitchellDOB: 4Provider: Timothy Ly: 12/25/2020 Chief ComplaintChronic low back pain, increased pain and swelling into the right lower extremity Chief Complaint 2NYSW VAS PAIN Established: MA completing section: History of Present IllnessRecent test/procedures: Patient was asked and denies having any tests since their last visit. Patient was asked and denies being seen by any Physicians since their last visit. At today's visit patient presents with their Self Implanted Devices The patient has the following implanted device(s): Pacemaker. The patient does not have a glucose monitoring device. Patient is not currently working. The patient is being seen for a workers compensation follow-up. The workers compensation date of injury is 02/05/69. Pain Quality: (Neuropathic) burning Pain Quality: (Nociceptive) sharp Timing: constant Progression: unchanged Palliation: opioid analgesics and rest Exacerbating: sitting and standing Pain Score: a current pain level of 7/10. Active Problems 1. Cervical radiculopathy (723.4) (M54.12) 2. Chronic low back pain (724.2,338.29) (M54.5,G89.29) 3. Constipation (564.00) (K59.00) 4. 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 Lumbar radiculitis (724.4) (M54.16) 7. Myofascial pain syndrome (729.1) (M79.18) 8. Other chronic pain (338.29) (G89.29) 9. Permanent Pacemaker Type 10. Postlaminectomy syndrome, lumbar (722.83) (M96.1) 11. Sacroiliac pain (724.6) (M53.3) 12. 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) Allergies Codeine Derivatives Anaphylaxis;; Updated By: Rae Corrales; 04/07/2012 3:19:22 PM Tape 1X5YD TAPE Blisters;; Updated By: Gay Hurst; 09/19/2015 2:26:04 PM Cymbalta CPEP fainting; Updated By: Rae Corrales; 04/07/2012 3:19:22 PM FLU Updated By: Gay Hurst; 09/19/2015 2:26:04 PM Adhesive Tape Blisters; Rash; Updated By: Artemio Chakraborty; 07/23/2014 2:51:08 PMDenied Iodinated Contrast Media Recorded By: Joana Pastor; 04/23/2015 2:21:40 PM Latex Recorded By: Evon Mcfarlane; 12/01/2011 1:00:25 PM Current Meds amLODIPine Besylate 5 MG Oral Tablet;Therapy: (Recorded:63Ihm6651) to Recorded Aspirin 81 MG Oral Tablet Delayed Release;Therapy: (Recorded:28Nov2017) to Auxjflpj71-69-45 10pm Levothyroxine Sodium 50 MCG Oral Tablet;Therapy: 09Oct2014 to Recorded Lidocaine 4 % External Patch; Apply three patches to affected areas 12 hours on, 12hours off MDD:3;Therapy: 95Dbm0011 to (Evaluate:39Oog4409) Requested for: 17Oct2020; LastRx:17Oct2020 Ordered Lisinopril 20 MG Oral Tablet;Therapy: (Recorded:14Nov2018) to Recorded Melatonin CAPS;Therapy: (Recorded:78Ayu1456) to Recorded Metaxalone 800 MG Oral Tablet; TAKE 1 TABLET tid prn MDD:3;Therapy: 27Sep2011 to (Evaluate:26Dec2020) Requested for: 28Aug2020; LastRx:28Aug2020 Ordered Metoprolol Tartrate TABS;Therapy: (Recorded:90Jle1341) to Recorded MiraLax POWD;Therapy: (Recorded:43Yhv2281) to Recorded Multi For Her TABS;Therapy: (Recorded:31Aug2012) to Recorded Nitroglycerin 0.4 MG Sublingual Tablet Sublingual;Therapy: (Recorded:14Nov2018) to Recorded oxyCODONE HCl - 10 MG Oral Tablet; Take one tablets q 4-6 hours as needed for painMDD:2 TDD:60mg;Therapy: 22Mar2017 to (Evaluate:25Dec2020) Requested for: 25Nov2020; LastRx:25Nov2020 OrderedLD 12/25/20 OxyCONTIN 20 MG Oral Tablet ER 12 Hour Abuse- Deterrent; 1 P O Q 12 HOURS MDD:2;Therapy: 06Feb2019 to (Evaluate:25Dec2020) Requested for: 25Nov2020; LastRx:25Nov2020 OrderedLD 12/24/20 Pantoprazole Sodium 40 MG Oral Tablet Delayed Release;Therapy: (Recorded:06Xls9462) to Recorded Polyethylene Glycol 3350 17 GM/SCOOP Oral Powder; MIX 1 CAPFUL (17GM) IN 8OUNCES OF WATER, JUICE, OR TEA AND DRINK DAILY prn constipation MDD:17grams;Therapy: 22Oct2014 to (Evaluate:27May2018) Requested for: 28Nov2017; LastRx:28Nov2017 Ordered Pravastatin Sodium TABS;Therapy: (Recorded:07Apr2012) to Recorded Pregabalin 100 MG Oral Capsule; Take one PO TID MDD:3;Therapy: 03Jun2015 to (Evaluate:23Dec2020) Requested for: 43Rwx8624; LastRx:40Bzh3341 Hpicgeu65:30am 10/17/20 rOPINIRole HCl - 1 MG Oral Tablet;Therapy: 30Ilm1290 to Recorded Synthroid 25 MCG Oral Tablet;Therapy: (Recorded:31May2012) to Recorded traZODone HCl - 50 MG Oral Tablet;Therapy: (Recorded:30Jan2018) to Recorded Vitamin C TABS;Therapy: (Recorded:33Php7194) to Recorded Past Medical History History of Chronic reflux esophagitis (530.11) (K21.00) History of acute arthritis (V13.4) (Z87.39) History of atrial fibrillation (V12.59) (Z86.79) Denied: History of blood coagulation disorder Assessed By: Albert Ly (Pain Management); Last Assessed: 19 Apr 2018 History of carpal tunnel syndrome (V12.49) (Z86.69) History of chronic renal failure syndrome (V13.09) (Z87.448) Resolved Date: 22 Mar 2017; Assessed By: Albert Ly (Pain Management); Last Assessed: 10 Aug 2016 History of hypertension (V12.59) (Z86.79) History of hypothyroidism (V12.29) (Z86.39) History of intestinal obstruction (V12.79) (Z87.19) History of low back pain (V13.59) (Z87.39) Denied: History of (V13.29) Assessed By: Albert Ly (Pain Management); Last Assessed: 19 Apr 2018 History of sinus bradycardia (V12.59) (Z86.79) History of type 2 diabetes mellitus (V12.29) (Z86.39) 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) Personal history of asthma (V12.69) (Z87.09) Denied: History of Taking Blood Thinners History of Thoracic outlet syndrome (353.0) (G54.0) Surgical History History of Back Surgery 4x History of Biopsy Of Liver 2007 History of Bladder Cystotomy History of Bladder Surgery bladder supension History of Cholecystectomy History of Colostomy History of Eye Surgery eye lid surgery History of Hernia Repair 2008 History of Hysterectomy Denied: History of Implantable Cardioverter-Defibrillator History of Nephrostomy Assessed By: Albert Ly (Pain Management); Last Assessed: 06 Aug 2020 History of Permanent pacemaker insertion VitalsVital Signs Recorded: 25Dec2020 01:32PM Height: 5 ft 3.5 inWeight: 182 lb BMI Calculated: 31.73BSA Calculated: 1.87Systolic: 110Diastolic: 76Heart Rate: 80Respiration: 20Temperature: 96.6 FPain Scale: 7Depression: 6 Physical ExamGeneral: The patient is a well nourished/well developed, female, heavy set, who is in no acute distress, appears stated age and Patient is using a walker at this appointment. Gait and Station: Gait was antalgic. Psychological: Alert and oriented to person, place and time. Mood and affect are pleasant and appropriate. Judgement intact. Insight normal without delusions or hallucinations. Denies suicidal/homicidal ideation. Assessment 1. Postlaminectomy syndrome, lumbar (722.83) (M96.1) Plan 1. Stop: Vitamin C TABS 2. Renew: Metaxalone 800 MG Oral Tablet (Skelaxin); TAKE 1 TABLET tid prn MDD:3 3. Renew: oxyCODONE HCl - 10 MG Oral Tablet; Take one tablets q 4-6 hours as needed for pain MDD:2 TDD:60mgLD 12/25/20 4. Renew: OxyCONTIN 20 MG Oral Tablet ER 12 Hour Abuse-Deterrent (oxyCODONE HCl ER); 1 P O Q 12 HOURS MDD:2LD 12/24/20 5. Renew: Pregabalin 100 MG Oral Capsule (Lyrica); Take one PO TID MDD:310:30am 10/17/20 6. MIPS - Survey Evaluation Evaluation Status: Complete Done: [id number] Depression Screening - Patient's PHQ-9 score is: : 5 - 9 Mild ...FUP plan requiredHave you EVER received a Pneumococcal Vaccine...? : No - Patient has never received a Pneumococcal vaccinationFLU - Have you received a flu shot in 2020 ? : No - Influenza not previously received due to patient declined or other patient reasonsBMI for Patients 18 and over : 25 or greater, BMI above normal parameters, follow-up plan documentedDo you use any kind of Tobacco? (smokes or uses smokeless tobacco): : Patient identified as a NON- Tobacco User<OBX.5.1><OBX.5.1.1>WOMEN </OBX.5.1.1><OBX.5.1.2> ANYONE >/= 65 - How many times in the past year have you had 4 or more</OBX.5.1.2></OBX.5.1> drinks in a day? : ZeroMEN < 65 - How many times in the past year have you had 5 or more drinks in a day? : N/A 7. Follow-up in 2 months Follow Up Follow-up Status: Hold For - Scheduling Requested for: [id number] Appointment for 15 or 30 minutes : Schedule 15 minute appointment Medication:. [employer]HAS SYNTHETIC GEM PRESS OPERATOR Information: SYNTHETIC GEM PRESS OPERATOR was consulted by my designee and I have reviewed the information presented to me and find no aberrant compliance issues. Patient has been informed. General Medications Prescribed: Lidocaine,metaxalone,polyethylene glycol.Controlled Substance Prescribed: Oxycodone, pregabalin . CONTROLLED SUBSTANCE INFORMATION: I advised the patient today/previously regarding treatment with the above controlled substance and/or narcotic. The patient was then informed of the risks, benefits, and alternatives of the narcotic. The risks discussed included but were not limited to physical and/or psychological dependence, tolerance of the medication, drowsiness, sleepiness, balance/coordination problems, confusion, allergic reaction or any other abnormal symptoms. The patient was advised and agreed to use the medication only as prescribed, and not to drive, or operate heavy equipment or machinery. The patient understood and consented to both undergo a narcotic/opiate regimen and agreed to sign and comply with all of the [facility] terms of a controlled substance treatment and agreement. Treatment includes: FOLLOW UP: The patient should have a follow up v isit in 2 months. CONTINUE TREATMENT: Uzma will continue with the following:. Uzma is participating in a home exercise program and is encouraged to continue. - FALL PRECAUTIONS: Uzma is encouraged to use necessary assistive devices including walker. PHQ-9 Patient's PHQ-9 score was 5-9 suggesting a Mild level of Depression. Symptoms were discussed with the pt and Tx options were reviewed. Follow-up on depression symptom level at next visit and determine whether patient requires Behavioral Health follow-up at that time. Discussion/SummarySajake is a 75 year old female chronic low back pain and radicular symptoms to the right lower extremity and swelling all due to work- related injury. Dorsalis pedis pulse is 2+ are 2+ pitting edema. I am recommending an ultrasound evaluation of the right lower extremity. Denies any chest pain or shortness of breath. Also to follow-up with her vascular surgeon. Refilled OxyContin, oxycodone, pregabalin and metaxalone. I will follow up with her in two months. Work / School NotePATIENT: if you submit this to your employer as an out of work note please be aware this includes PHI (Protected Health Information). The incident described by the patient is a competent medical cause of this injury. The patient's complaints are consistent with the history of the injury/illness. The patient's history of the injury/illness is consistent with my objective findings. The patient is not working at this time. Patient is on permanent disability. Disability rating is 100 %. Signatures Electronically signed by : CAREY Jessica; Dec 25 2020 1:54PM EST (Author) Electronically signed by : Bonilla Goel MD; Dec 25 2020 2:08PM EST Name Value Range Interpretation Code Description Data Shasha rce(s) Supporting Document(s) ID Date Data Source [id number] 10/17/2020 07:44:39 PM EST [facility] Name Value Range Interpretation Code Description Data Shasha rce(s) Supporting Document(s) Progress Note [facility] STWBKv0jEgTQZeDx93/RGYefLFUzl7HcKVmzLUi2GNtaBYWuM6LaROF9kY4zCRK4LOvWEoHoVxReFqW8 [facility] [file] AgICAgICAgICAgICAgICAgICAgICAgICAgICAgICAgICAgICAgICAgICAgICAgICAgICAgICAgICAgIC AgICAgICAgICAgICAgICAgDQogICAgICAgICAgICAg ICAgICAgICAgICAgICAgICAgICAgICAgICAgICAgICAgICAgICAgICAgICAgICAgICAgICAgICAgICAg ICAgICAgICAgICAgICAgICAgICAgICAgICAgDQogICAgICAgICAgICAgICAgICAgICAgICAgICAgICAg ICAgICAgICAgICAgICAgICAgICAgICAgICAgICAgIC AgICAgICAgICAgICAgICAgICAgICAgICAgICAgICAgICAgICAgDQogICAgICAgICAgICAgICAgICAgIC AgICAgICAgICAgICAgICAgICAgICAgICAgICAgICAgICAgICAgICAgICAgICAgICAgICAgICAgICAgIC AgICAgICAgICAgICAgICAgICAgDQogICAgICAgICAg ICAgICAgICAgICAgICAgICAgICAgICAgICAgICAgICAgICAgICAgICAgICAgICAgICAgICAgICAgICAg ICAgICAgICAgICAgICAgICAgICAgICAgICAgICAgDQogICAgICAgICAgICAgICAgICAgICAgICAgICAg ICAgICAgICAgICAgICAgICAgICAgICAgICAgICAgIC AgICAgICAgICAgICAgICAgICAgICAgICAgICAgICAgICAgICAgICAgDQogICAgICAgICAgICAgICAgIC AgICAgICAgICAgICAgICAgICAgICAgICAgICAgICAgICAgICAgICAgICAgICAgICAgICAgICAgICAgIC AgICAgICAgICAgICAgICAgICAgICAgDQogICAgICAg ICAgICAgICAgICAgICAgICAgICAgICAgICAgICAgICAgICAgICAgICAgICAgICAgICAgICAgICAgICAg ICAgICAgICAgICAgICAgICAgICAgICAgICAgICAgICAgDQogICAgICAgICAgICAgICAgICAgICAgICAg ICAgICAgICAgICAgICAgICAgICAgICAgICAgICAgIC AgICAgICAgICAgICAgICAgICAgICAgICAgICAgICAgICAgICAgICAgICAgDQogICAgICAgICAgICAgIC AgICAgICAgICAgICAgICAgICAgICAgICAgICAgICAgICAgICAgICAgICAgICAgICAgICAgICAgICAgIC LaRFPjFZMaLDQrDUPlMLIeYUOjGTRvCSWxXYk0V3fk IHZwLFGiAJ9uNDn1Jr0+TPoUXoYmHOM5haVmzC4KWX6zq2OiCIviDXExa7DlPOd6EM6MKZNoFBolXM3F XEekjt5ICJKlUKLdwINZt5zlTlVdQRI2UTAqXeosBG0XWUMzA8idszFuRUXtAIXVSH8LDzWmF2PvoG57 IDENCj4+CUdtypYxUkqGUfE8RFCqx8FzADe1WL2XUR SyGhznk0DaDsGrDVRDAAqqCU7LFDJ0SJCjDQSsEd9IZQJoC437mnVbEK8ZYg8ZEhVtBO0akp5EJiAeKW ZuHtmJUyc8MXmxMI9ZqHAoFSpBtp5vmhVqzsKJu3SbkiUynZONnQVlcUQyIGKiIihgr9TrdNftTMXfPT VkDFVdHk3nLVRcYCKvMpXcARXDKC6TOAAeYIWgmURx RILnWNUVKC9BRCumLRZ7EIXfvxIcpDQcFLycKP4YZOMoeyHuSUloLXYLAPv+Aj0UWW3fy8UfGVvmQGCp UP8txm7FETpKIoJfP2C0xXScN2F9ZKbqCd4VBALcDFVfMFmfAINELIvgFT0TBM7ldyU9MZ9YqEHuQTXy URVigJZdRPb3R62idMIoJHcmOV6WZEU+Cahse+Pg0KIC WwJBArXYYmJhWpNKSWIqKdO7DuI1SPw5LjW6GsLL65mOvfuvSjTIsnYG3AXZ0iFRKzNMNHCP4SaZOslT 1mhmAnCDGoAVWBKmLjO85jmAQwZKDlNVT5EMSlJe5SGBFxS7VeabBxrKcnrrRoRAWyHLPNMQ9RPMfutv YlcCOptZilRK39vAchCN8GYf2WJdCvII3bdk5ZxZMj Wk0SGLPoWo9JKRHxOJTjGVLiDRZ5VRZuAkZuJLhzEZYnVBKgKVO7RQJdOPKeNR5GDiUaJRNhJML6OHDu NHWlONDwrv5JLWRjVGKvRRSmEVZtKWElIKMnDLnxCGNrUGLvAQX0BRSmPSCvPP3MWxPsRRZoYAR5Dfor ZIWnBPPbyl1HPFTbFJVqBPrfTbAmLSDpTTTqTMwwGU FuBMKaEjabCWHaBTJyRJ2MHgOzCTHqGKB1UYjlNFSzOPXtdj1FHFJxPWTzFsY1JOXqRCQfCIBsJHgpDE CgZTH6MCP7TBZuJGTyGD3CPfYtZBPwSZIjLmizPIPgATLssz6WVIFlBKImYPXjYTCvHWGeSQMgAPudVY DyKIR5FPoqNTXrEQXyLH9RYkPrCNHaSNVgZYCnDQHl SVZsam4BAUJbRFCeLsX5EHIzXTLiNWTgMQncQERvHIX4IlW0FTNiFZQkPE4XKyEuHQWyRTN4SKShCMPd YEUmmp9ZMLDhEQJdFxC0IAYfHGIiEETrYGybREExJJY4JbX3MGIlELTkSB7ABeKfDPQkBKs7KSCzJDGh XSWwaf5QHGGvXOVjZVf2ChNlCOQrQJGpLJt6waQklI HpCAr4TU4CS4TvmdUwElBXBy3Dw158VITnDZNtTu7HH5adHr9mUBKcXXDQXz7YFDm5RHFaTTUeR2TtDZ Z5VHMlCiNdALVjRDJuAeD1QONpJ7H+VUfoVqG3QGMyFWJpHJn8J1TwUUCoBxIwH0PrZfRkSwNlUp7iIT ANCj4+QNfafAZmuUvbAKOCOkV3YZv7KBouWVTYHw3S ID Date Data Source [id number] 10/17/2020 07:44:34 PM [facility] Name Value Range Interpretation Code Description Data Shasha rce(s) Supporting Document(s) [facility]SDTikNHLyu8CoODbbHDc6QFmfADDpS2FqNVL5jJ0gCQB8OWwXNqZuZyQcErM1 lbm [file] +5Bwq9+y9QljZQ4T/Nuria+ajns2ezHESzcgo0qzFZFoXP8uv+5+iJy5lFHHwingL3g7mv1GLRBg5L/potato chip frier [file] AhGMT5BlK2C4CgVaB2PQRzRqCjVJxuTk7fFKAEIb5+VOyoqXJgaVbfUMMYUiF0RWC3JGkkMBZELu5N ID Date Data Source [id number] 10/20/2020 10:14:00 AM EST [facility], PCName: Juan MitchellDOB: 4Provider: Timothy Ly: 10/17/2020 Chief ComplaintChronic low back pain. Increased abdominal pain over the last month. unknown etiology Chief Complaint 2NYSW VAS PAIN Established: 8 MA completing section: Kenia Disla CMA History of Present IllnessRecent test/procedures: Patient was asked and denies having any tests since their last visit. Patient has been seen by the following physician since their last visit: HERIBERTO The patient was last seen by a [facility] provider on 08/06/2020. At today's visit patient presents with their Self Implanted Devices The patient has the following implanted device(s): Pacemaker. The patient does not have a glucose monitoring device. The patient is being seen for a workers compensation follow-up. The workers compensation date of injury is 02/05/69. Pain Quality: (Neuropathic) burning Pain Quality: (Nociceptive) sharp Timing: constant Progression: worsening Palliation: opioid analgesics and rest Exacerbating: house chores, lifting, sitting, standing and walking Pain Score: a current pain level of 8/10. Review of SystemsConstitutional: Normal. Eyes: Normal. ENT: normal. Cardiovascular: Normal. Respiratory: Normal. Genitourinary: Normal. Musculoskeletal: lower back pain and limb pain. Integumentary: Normal. Neurological: leg weakness and difficulty walking. Psychiatric: Normal. Endocrine: Normal. Hematologic/Lymphatic: Normal. The patient states they have a clotting or bleeding disorder or has seen a adult education manager. See initial patient paperwork dated . I reviewed the above with the patient and I feel the ROS to be negative/normal other than Lower back pain, limb pain, difficulty walking. Active Problems 1. Cervical radiculopathy (723.4) (M54.12) 2. Chronic low back pain (724.2,338.29) (M54.5,G89.29) 3. Constipation (564.00) (K59.00) 4. 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 Lumbar radiculitis (724.4) (M54.16) 7. Myofascial pain syndrome (729.1) (M79.18) 8. Other chronic pain (338.29) (G89.29) 9. Permanent Pacemaker Type 10. Postlaminectomy syndrome, lumbar (722.83) (M96.1) 11. Sacroiliac pain (724.6) (M53.3) 12. 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) Allergies Codeine Derivatives Anaphylaxis;; Updated By: Rae Corrales; 04/07/2012 3:19:22 PM Tape 1X5YD TAPE Blisters;; Updated By: Gay Hurst; 09/19/2015 2:26:04 PM Cymbalta CPEP fainting; Updated By: Rae Corrales; 04/07/2012 3:19:22 PM FLU Updated By: Gay Hurst; 09/19/2015 2:26:04 PM Adhesive Tape Blisters; Rash; Updated By: Artemio Chakraborty; 07/23/2014 2:51:08 PMDenied Iodinated Contrast Media Recorded By: Joana Pastor; 04/23/2015 2:21:40 PM Latex Recorded By: Evon Mcfarlane; 12/01/2011 1:00:25 PM Current Meds amLODIPine Besylate 5 MG Oral Tablet;Therapy: (Recorded:37Rnn4866) to Recorded Aspirin 81 MG Oral Tablet Delayed Release;Therapy: (Recorded:28Nov2017) to Abkpymaj46-34-61 10pm Levothyroxine Sodium 50 MCG Oral Tablet;Therapy: 09Oct2014 to Recorded Lidocaine 4 % External Patch; Apply three patches to affected areas 12 hours on, 12hours off MDD:3;Therapy: 12Dec2019 to (Evaluate:09Jun2020) Requested for: 12Dec2019; LastRx:12Dec2019 Ordered Lisinopril 20 MG Oral Tablet;Therapy: (Recorded:14Nov2018) to Recorded Magnesium Oxide 400 MG Oral Tablet;Therapy: (Recorded:14Nov2018) to Recorded Melatonin CAPS;Therapy: (Recorded:76Lim4958) to Recorded Metaxalone 800 MG Oral Tablet; TAKE 1 TABLET tid prn MDD:3;Therapy: 27Sep2011 to (Evaluate:32Pal7838) Requested for: 28Aug2020; LastRx:28Aug2020 Ordered Metoprolol Tartrate TABS;Therapy: (Recorded:74Lww5575) to Recorded MiraLax POWD;Therapy: (Recorded:58Jza7086) to Recorded Multi For Her TABS;Therapy: (Recorded:31Aug2012) to Recorded Nitroglycerin 0.4 MG Sublingual Tablet Sublingual;Therapy: (Recorded:14Nov2018) to Recorded oxyCODONE HCl - 10 MG Oral Tablet; Take one tablets q 4-6 hours as needed for painMDD:2 TDD:60mg;Therapy: 24Lmy7423 to (Evaluate:24Oct2020) Requested for: 24Sep2020; LastRx:44Xyi1787 Iohtygm72ec 10/16/20 OxyCONTIN 20 MG Oral Tablet ER 12 Hour Abuse-Deterrent; 1 P O Q 12 HOURS MDD:2;Therapy: 06Feb2019 to (Evaluate:24Oct2020) Requested for: 24Sep2020; LastRx:40Ler5939 Ordered10/17/20 10:30am Pantoprazole Sodium 40 MG Oral Tablet Delayed Release;Therapy: (Recorded:89Pkx8729) to Recorded Polyethylene Glycol 3350 17 GM/SCOOP Oral Powder; MIX 1 CAPFUL (17GM) IN 8OUNCES OF WATER, JUICE, OR TEA AND DRINK DAILY prn constipation MDD:17grams;Therapy: 22Oct2014 to (Evaluate:27May2018) Requested for: 28Nov2017; LastRx:28Nov2017 Ordered Pravastatin Sodium TABS;Therapy: (Recorded:06Qmh8285) to Recorded Pregabalin 100 MG Oral Capsule; Take one PO TID MDD:3;Therapy: 03Jun2015 to (Evaluate:23Dec2020) Requested for: 24Sep2020; LastRx:24Sep2020 Aoosjcd56:30am 10/17/20 rOPINIRole HCl - 1 MG Oral Tablet;Therapy: 96Cip9784 to Recorded Synthroid 25 MCG Oral Tablet;Therapy: (Recorded:31May2012) to Recorded traZODone HCl - 50 MG Oral Tablet;Therapy: (Recorded:30Jan2018) to Recorded Vitamin C TABS;Therapy: (Recorded:80Sma9362) to Recorded Past Medical History History of Chronic reflux esophagitis (530.11) (K21.00) History of acute arthritis (V13.4) (Z87.39) History of atrial fibrillation (V12.59) (Z86.79) Denied: History of blood coagulation disorder Assessed By: Ablert Ly (Pain Management); Last Assessed: 19 Apr 2018 History of carpal tunnel syndrome (V12.49) (Z86.69) History of chronic renal failure syndrome (V13.09) (Z87.448) Resolved Date: 22 Mar 2017; Assessed By: Albert Ly (Pain Management); Last Assessed: 10 Aug 2016 History of hypertension (V12.59) (Z86.79) History of hypothyroidism (V12.29) (Z86.39) History of intestinal obstruction (V12.79) (Z87.19) History of low back pain (V13.59) (Z87.39) Denied: History of (V13.29) Assessed By: Albert Ly (Pain Management); Last Assessed: 19 Apr 2018 History of sinus bradycardia (V12.59) (Z86.79) History of type 2 diabetes mellitus (V12.29) (Z86.39) 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) Personal history of asthma (V12.69) (Z87.09) Denied: History of Taking Blood Thinners History of Thoracic outlet syndrome (353.0) (G54.0) Surgical History History of Back Surgery 4x History of Biopsy Of Liver 2008 History of Bladder Cystotomy History of Bladder Surgery bladder supension History of Cholecystectomy History of Colostomy History of Eye Surgery eye lid surgery History of Hernia Repair 2008 History of Hysterectomy Denied: History of Implantable Cardioverter-Defibrillator History of Nephrostomy Assessed By: Albert Ly (Pain Management); Last Assessed: 06 Aug 2020 History of Permanent pacemaker insertion Family History Family history of Arthritis (V17.7) Family history of Diabetes Mellitus (V18.0) Family history of Heart Disease (V17.49) Family history of Hypertension (V17.49) Family history of Cancer Social History Current non-drinker of alcohol (V49.89) (Z78.9) Denied: History of Drug Use Marital History - Currently Never smoker On permanent disability VitalsVital Signs Recorded: 67Sui5157 01:30PM Height: 5 ft 4 inWeight: 186 lb BMI Calculated: 31.93BSA Calculated: 1.9Systolic: 142Diastolic: 72Heart Rate: 72Respiration: 16Temperature: 96.6 FHeight measured w/wo shoes: w/shoesPain Scale: 8 Physical ExamGeneral: The patient is a well nourished/well developed, female, heavy set, who is in no acute distress, appears stated age and Patient is using a walker at this appointment. Eyes: currently wearing eyeglasses. Ears, Nose, Mouth, Throat: Patient wearing a mask due to COVID-19. Respiratory: Normal chest expansion and respiratory effort. Gait and Station: Gait was antalgic. Skin: Warm, dry, acyanotic. Psychological: Alert and oriented to person, place and time. Mood and affect are pleasant and appropriate. Judgement intact. Insight normal without delusions or hallucinations. Denies suicidal/homicidal ideation. Assessment 1. Lumbar radiculitis (724.4) (M54.16) Plan 1. Renew: Lidocaine 4 % External Patch; Apply three patches to affected areas 12 hours on, 12 hours off MDD:3 2. Renew: oxyCODONE HCl - 10 MG Oral Tablet; Take one tablets q 4-6 hours as needed for pain MDD:2 TDD:16hc55jl 10/16/20 3. Renew: OxyCONTIN 20 MG Oral Tablet ER 12 Hour Abuse-Deterrent (oxyCODONE HCl ER); 1 P O Q 12 HOURS MDD: 10:30am 4. 4 Lead TENS Unit w/ Supplies ([facility]); Status:Need Information - Financial Authorization; Requested for:[id number]; Request Type : Authorization ( C4) 5. Follow-up in 2 months Follow Up Follow-up Status: Hold For - Scheduling Requested for: [id number] Appointment for 15 or 30 minutes : Schedule 15 minute appointment Medication:. SUJATHA SYNTHETIC GEM PRESS OPERATOR Information: SYNTHETIC GEM PRESS OPERATOR was consulted by my designee and I have reviewed the information presented to me and find no aberrant compliance issues. Patient has been informed. General Medications Prescribed: Lidocaine . GENERAL MEDICATIONS: I advised the patient today/previously regarding treatment with the above medication(s). The risks, benefits, common side effects and alternative treatments were discussed with the patient. The provider verbalized with the patient. The patient verbalized understanding and was told to call if there were any untoward effects. Controlled Substance Prescribed: Oxycodone, pregabalin . CONTROLLED SUBSTANCE IN FORMATION: I advised the patient today/previously regarding treatment with the above controlled substance and/or narcotic. The patient was then informed of the risks, benefits, and alternatives of the narcotic. The risks discussed included but were not limited to physical and/or psychological dependence, tolerance of the medication, drowsiness, sleepiness, balance/coordination problems, confusion, allergic reaction or any other abnormal symptoms. The patient was advised and agreed to use the medication only as prescribed, and not to drive, or operate heavy equipment or machinery. The patient understood and consented to both undergo a narcotic/opiate regimen and agreed to sign and comply with all of the [facility] terms of a controlled substance treatment and agreement. Treatment includes: DME: - DME Variance/Authorization Request We are requesting authorization (WC) for the following DME(s)- DME plan: I am ordering a 4 LEAD TENS UNIT. the patient has had a successful TENS unit trial at physical therapy. FOLLOW UP: The patient should have a follow up visit in 2 months. - FALL PRECAUTIONS: Uzma is encouraged to use necessary assistive devices including walker. Discussion/SummaryUzma is a 75 year old female presents today increasing chronic of low back pain, sensitivity into the right lower extremity and numbness in the left lower extremity. Her primary c are provider added metoprolol because of increasing blood pressure but also told her she thinks is because of her pain. Unfortunately this patient has failed all other conservative measures, she is failed nerve blocks, failed spinal cord stimulation. We rotated her to methadone at one point she said this did not help. She is on the maximum amount of opioids that I can give her. She had a TENS unit in the past which she felt was helpful, lidocaine patches were also helpful so I am going to order these. Her OxyContin and oxycodone were refilled. I will see her back in two months. Work / School NotePATIENT: if you submit this to your employer as an out of work note please be aware this includes PHI (Protected Health Information). The incident described by the patient is a competent medical cause of this injury. The patient's complaints are consistent with the history of the injury/illness. The patient's history of the injury/illness is consistent with my objective findings. The patient is not working at this time. Patient is on permanent disability. Disability rating is 100 %. Signatures Electronically signed by : CAREY Jessica; Oct 17 2020 2:04PM EST (Author) Electronically signed by : Bonilla Goel MD; Oct 20 2020 10:13AM EST Name Value Range Interpretation Code Description Data Shasha rce(s) Supporting Document(s) ID Date Data Source [id number] 10/07/2020 02:54:00 PM EST [facility] ([facility]) Name Value Range Interpretation Code Description Data Shasha rce(s) Supporting Document(s) Laboratory test finding (navigational concept) Laboratory test result [facility] ([facility]) This nucleic acid amplification test was developed and its performance characteristics determined by [employer]. Nucleic acid amplification tests include RT- PCR and TMA. This test has not been FDA cleared [...] section 564(b)(1) of the Act, 21 U.S.C. 360bbb-3(b) (1), unless the authorization is termina kari or revoked sooner. When diagnostic testing is negative, the possibility of a false negative result should be considered in the context of a patient's recent exposures and the presence of clinical signs and symptoms consistent with COVID-19. An individual without symptoms of COVID-19 and who is not shedding SARS-CoV-2 virus would expect to have a negative (not detected) result in this assay. Performed at: [facility] [address] [facility], [place], [place] [id number] Emd Teacher: Patricia Hutchins PhD, Phone: [phone] Not Detected ID Date Data Source [id number] 10/07/2020 02:54:00 PM EST [facility] Name Value Range Interpretation Code Description Data Shasha rce(s) Supporting Document(s) SARS coronavirus 2 RNA Not Detected [facility] [place] This lab was ordered by [facility] and reported by [employer]. ID Date Data Source [id number] 10/07/2020 02:07:00 PM EST [facility] ([facility]) Name Value Range Interpretation Code Description Data Shasha rce(s) Supporting Document(s) Hemoglobin A1c/Hemoglobin.total in Blood 6.3 % [facility] Lab Result Notes: Pre-Diabetes 5.7 - 6.4 % Diabetes = or > 6.5% Glucose mean value [Mass/volume] in Blood Estimated fr om glycated hemoglobin 134 mg/dL 60-110 [facility] ([facility] ) ID Date Data Source [id number] 10/07/2020 02:07:00 PM EST [facility] ([facility]) Name Value Range Interpretation Code Description Data Shasha rce(s) Supporting Document(s) Glucose [Mass/volume] in Serum or Plasma 124 mg/dL 74-99 [facility] ([facility]) 100-125 mg/dL PRE-DIABETES/FASTING >126 mg/dL DIABETES/FASTING Urea nitrogen [Mass/volume] in Serum or Plasma 14 mg/dL 7-18 [facility] ([facility]) Creatinine 1.3 mg/dL 0.6-1.3 [facility]) Sodium [Moles/volume] in Serum or Plasma 142 meq/L 136-145 [facility] ([facility]) Carbon dioxide, total [Moles/volume] in Serum or Plasma 20 meq/L 21 -32 [facility] ([facility]) Potassium [Moles/volume] in Serum or Plasma 3.9 meq/L 3.5-5.1 [facility] ([facility]) Chloride [Moles/volume] in Serum or Plasma 108 meq/L 98-107 [facility]) Glomerular filtration rate/1.73 sq M pre dicted among non-blacks [Volume Rate/Area] in Serum or Plasma by Creatinine-based formula (MDRD) 40 mL/min [facility] ([facility]) Calcium [Mass/volume] in Serum or Plasma 8.5 mg/dL 8.5-10.1 [facility]) Glomerular filtration rate/1.73 sq M pre dicted among blacks [Volume Rate/Area] in Serum or Plasma by Creatinine-based formula (MDRD) 48 mL/min [facility]) <content>CHRONIC KIDNEY DISEASE STAGING PER NKF</content>
<content></content>
<content>STAGE I & II GFR >= 60 NORMAL TO MILDLY DECREASED</content>
<content>STAGE III GFR 30-59 MODERATELY DECREASED</content>
<content>STAGE IV GFR 15-29 SEVERELY DECREASED</content>
<content>STAGE V GFR <15 VERY LITTLE GFR LEFT</content>
<content>ESRD GFR <15 ON BANQUET PREP COOK</content>
<content></content> ID Date Data Source [id number] 10/07/2020 02:07:00 PM EST [facility] ([facility]) Name Value Range Interpretation Code Description Data Shasha rce(s) Supporting Document(s) Leukocytes [#/volume] in Blood by Automated count 4.4 x10*3/UL 4.1-10 .9 [facility] ([facility]) Erythrocytes [#/volume] in Blood by Automated count 3.26 x10*6/UL 4.2 0-6.30 [facility] ([facility]) Hemoglobin [Mass/volume] in Blood 9.0 g/dL 12.0-18.0 [facility] Hematocrit [Volume Fraction] of Blood by Automated count 26.8 % 3 7.0-51.0 [facility] ([facility]) MCV 82.3 fL 80.0-97.0 [facility]) MCHC 33.6 g/dL 31.0-38.0 [facility] ([facility]) MCH 27.7 pg 26.0-32.0 [facility] ([facility]) Erythrocyte distribution width [Ratio] by Automated count 15.5 % 11.6-13.7 [facility] ([facility]) MPV 10.7 FL 7.8-11.0 [facility]) Platelets [#/volume] in Blood by Automated count 189 x10*3/UL 140-440 [facility] ([facility]) Lymph % 39.0 % 10.0-58.5 [facility]) Mid % 6.8 % 1.7-9.3 [facility]) Neut % 54.2 % 37.0-92.0 [facility]) Lymph # 1.7 x10*3/UL 0.6-4.1 [facility] [facility]) Mid # 0.4 x10*3/UL 0.1-0.6 [facility] ([facility]) Neut # 2.3 x10*3/UL 2.0-7.8 [facility] ([facility]) ID Date Data Source [id number] 09/05/2020 03:04:00 PM EST [facility] ([facility]) Name Value Range Interpretation Code Description Data Shasha rce(s) Supporting Document(s) Thyrotropin [Units/volume] in Serum or Plasma by Detec tion limit <= 0.05 mIU/L 1.62 uIU/mL 0.36-3.74 [facility] ([facility] ) ID Date Data Source [id number] 09/05/2020 03:04:00 PM EST [facility] ([facility]) Name Value Range Interpretation Code Description Data Shasha rce(s) Supporting Document(s) Glucose [Mass/volume] in Serum or Plasma 142 mg/dL 74-99 [facility] ([facility]) 100-125 mg/dL PRE-DIABETES/FASTING >126 mg/dL DIABETES/FASTING Creatinine 1.4 mg/dL 0.6-1.3 [facility] Urea nitrogen [Mass/volume] in Serum or Plasma 19 mg/dL 7-18 [facility] ([facility]) Sodium [Moles/volume] in Serum or Plasma 140 meq/L 136-145 [facility] ([facility]) Potassium [Moles/volume] in Serum or Plasma 4.3 meq/L 3.5-5.1 [facility] ([facility]) Carbon dioxide, total [Moles/volume] in Serum or Plasma 29 meq/L 21 -32 [facility] ([facility]) Calcium [Mass/volume] in Serum or Plasma 8.8 mg/dL 8.5-10.1 [facility] ([facility]) Chloride [Moles/volume] in Serum or Plasma 105 meq/L 98-107 [facility] Glomerular filtration rate/1.73 sq M pre dicted among blacks [Volume Rate/Area] in Serum or Plasma by Creatinine-based formula (MDRD) 44 mL/min [facility] <content>CHRONIC KIDNEY DISEASE STAGING PER NKF</content>
<content></content>
<content>STAGE I & II GFR >= 60 NORMAL TO MILDLY DECREASED</content>
<content>STAGE III GFR 30-59 MODERATELY DECREASED</content>
<content>STAGE IV GFR 15-29 SEVERELY DECREASED</content>
<content>STAGE V GFR <15 VERY LITTLE GFR LEFT</content>
<content>ESRD GFR <15 ON BANQUET PREP COOK</content>
<content></content> Glomerular filtration rate/1.73 sq M pre dicted among non-blacks [Volume Rate/Area] in Serum or Plasma by Creatinine-based formula (MDRD) 37 mL/min [facility] ID Date Data Source [id number] 09/05/2020 03:04:00 PM EST [facility] ([facility]) Name Value Range Interpretation Code Description Data Shasha rce(s) Supporting Document(s) Leukocytes [#/volume] in Blood by Automated count 4.3 x10*3/UL 4.1-10 .9 [facility] Hemoglobin [Mass/volume] in Blood 9.2 g/dL 12.0-18.0 [facility] NOTE: RESULT VERIFIED. Erythrocytes [#/volume] in Blood by Automated count 3.35 x10*6/UL 4.2 0-6.30 [facility] Hematocrit [Volume Fraction] of Blood by Automated count 27.3 % 3 7.0-51.0 [facility] ([facility]) MCH 27.5 pg 26.0-32.0 [facility] ([facility]) MCV 81.6 fL 80.0-97.0 [facility] ([facility]) MCHC 33.7 g/dL 31.0-38.0 [facility] Erythrocyte distribution width [Ratio] by Automated count 14.7 % 11.6-13.7 [facility] ([facility]) MPV 10.7 FL 7.8-11.0 [facility] Lymph % 31.4 % 10.0-58.5 [facility] Platelets [#/volume] in Blood by Automated count 172 x10*3/UL 140-440 [facility] ([facility]) Neut % 60.7 % 37.0-92.0 [facility] Mid % 7.9 % 1.7-9.3 [facility] Lymph # 1.3 x10*3/UL 0.6-4.1 [facility] ([facility]) Mid # 0.4 x10*3/UL 0.1-0.6 [facility] ([facility]) Neut # 2.6 x10*3/UL 2.0-7.8 [facility] ([facility]) ID Date Data Source [id number] 08/21/2020 10:13:50 PM [facility] Name Value Range Interpretation Code Description Data Shasha rce(s) Supporting Document(s) Progress Note [facility] DHHLPv9mIsQVSmRl92/LEEybEDHyn2YeUTpnEXr1DVosEXDtI4QmFHO0qQ7aRHX0MDcSAwZkCyXjYaPx [facility] [file] ICAgICAgICAgICAgICAgICAgICAgICAgICAgICAgICAgICAgICAgICAgICAgICAgICAgICAgICAgICAg ICAgICAgICAgICAgICANCiAgICAgICAgICAgICAgICAgICAgICAgICAgICAgICAgICAgICAgICAgICAg ICAgICAgICAgICAgICAgICAgICAgICAgICAgICAgIC AgICAgICAgICAgICAgICAgICAgICAgICANCiAgICAgICAgICAgICAgICAgICAgICAgICAgICAgICAgIC AgICAgICAgICAgICAgICAgICAgICAgICAgICAgICAgICAgICAgICAgICAgICAgICAgICAgICAgICAgIC AgICAgICANCiAgICAgICAgICAgICAgICAgICAgICAg ICAgICAgICAgICAgICAgICAgICAgICAgICAgICAgICAgICAgICAgICAgICAgICAgICAgICAgICAgICAg ICAgICAgICAgICAgICAgICANCiAgICAgICAgICAgICAgICAgICAgICAgICAgICAgICAgICAgICAgICAg ICAgICAgICAgICAgICAgICAgICAgICAgICAgICAgIC AgICAgICAgICAgICAgICAgICAgICAgICAgICANCiAgICAgICAgICAgICAgICAgICAgICAgICAgICAgIC AgICAgICAgICAgICAgICAgICAgICAgICAgICAgICAgICAgICAgICAgICAgICAgICAgICAgICAgICAgIC AgICAgICAgICANCiAgICAgICAgICAgICAgICAgICAg ICAgICAgICAgICAgICAgICAgICAgICAgICAgICAgICAgICAgICAgICAgICAgICAgICAgICAgICAgICAg ICAgICAgICAgICAgICAgICAgICANCiAgICAgICAgICAgICAgICAgICAgICAgICAgICAgICAgICAgICAg ICAgICAgICAgICAgICAgICAgICAgICAgICAgICAgIC AgICAgICAgICAgICAgICAgICAgICAgICAgICAgICANCiAgICAgICAgICAgICAgICAgICAgICAgICAgIC AgICAgICAgICAgICAgICAgICAgICAgICAgICAgICAgICAgICAgICAgICAgICAgICAgICAgICAgICAgIC AgICAgICAgICAgICANCiAgICAgICAgICAgICAgICAg ICAgICAgICAgICAgICAgICAgICAgICAgICAgICAgICAgICAgICAgICAgICAgICAgICAgICAgICAgICAg ICAgICAgICAgICAgICAgICAgICAgICANCjw/sQZrH4zvqHUxilD9U1mbFl8AYr6GAX2rc7AkQWRoSFcw neSpEkdTKnRpAEMuMrmZMrp0JElsGL5SnZAzW3WtH9 YwWKjlQX2HKKMbAQKjbANzVBRfLOQtEzF7QBGjSEovSO2BoJIpPGqfWIRcTMFfGA9VYXEtL859nqOwAF 2OBh6MRdEgMG7fsx8SJIiaTEFkZiwUCed8POvuPV2WyDSvnUZzETFuZXLKDcHwZ9egj6IzEyGsQMUEWM lvPN2Zc6WarCRuRPi+Hm8HUA1jz6QbOGgoXLHmGO2k rq2SJFvMPgNtO8DjdHiiCLChq3wuDPHnXO9lpOFbHNQ1BFI9PQZmCF8pXUCNjOMnIEs2NXUYKFFtbDNa LY5wEU7uYAIeFDYaMeUzUREQEO2NVUQhNUAuxERnWUYlYPNDCP6IUZxpVCW7GRZbgvMojSQbQSsqHT4E YXJlbnQgMTkgMCBSDQo+Gw3VQW8un4WbBQvtBJBqHN 9jse9ACKxLFiZhS0Q8qMQpJ6W4UIodZw7BIFHgXXIoVDfvAQSUAVnjXV6ELB0kmeN3BK0PnBXzCHPsFJ IirZUdKWj8Y55zeVPwTKetZV5UWGV+Chase+Hf7VFPRwQEYfUVDuEeJlHSNARrHcY4XgN3BWg4RuB3UuGY 18fHaiplGvINbxBT8JFF6gGVKaXTUPSI7AlRRafR2i glLyIJIjRNXIThTeV33etKFjFYNaYRT3VLCiTk3MLWUcK8EnwzAtdIgxezLeGPUuILZKFS7BJGunqpPt zYZduRsvGL10lGyvLJ0PJr1REoRkLF1puu7RvRRrXg0ORDCfCd8WIYClPMXcGUCcDXQ4HXIsOkQeETmk KJOyRUZcMYH6UHYbJYEgZC0KDhDvSXTxRRb5EMIaUF DxOTWpyf2PHKXxDCPoZPTyCEZpKBPtRMTeLHxuRJIlRXGcAEN1XCXeBJOzCD4ZPhRdHDJqMSS0RcnaCK NlGQRvng8EEAPuUPGdOajaHLDgZANlTVJbWMshISUnFFYpGeqxMQOmDHZvDG5YCsPbZGOnWWP7JREcWX XkULXnei9MRSPzREGnZXJ4BiHuVCSaPQStXTggOPVo JYP3CZL6BLQwISCeTG3YGrIlKXPnFWHuUsNbVMVbAXIfqj0GHFUjRLRtLKYjRrSjURXqISIlJXlxNBLz HNH9MIO3CWOmAYYnXC2KXdIlQUPmBAewKPJcVGDkAROpfz7XONTkEUTaAgW6ZaZyITEoGMWpYZgiIKXg ABA7GjTtVXKoJRWmOH9FDzFjZFRwZAr8JszjFGLcMK Hvgl2ZASXwLEIrPUN2WMQnGBIbDPUtFEgjRKYnAKQ9MjF0GBWuNPNzLJ0QLnUjBLQxWEa5CKvhGLNyOO Sjqv4LECZvMEWsDSe1TKZmUSFfJNExEAj5miChnDCdXDu2UR5VB4AahoTtUeZSIq2Ui168FUMbAABbBo 2UH6umUq8nISPkJBYTDp9KKOw4Z1VmVEFpZtowTbH4 I8B8WYP0Z6P9VNEkKTAmRJXtGLG+RSlhXTXeT0UlZ7KnVuCaENC8CxRtUIJmFYK3HLNmHVA7FA2yAZDO Cj4+TWrtyEAmtEmyKFOHStRrWCq0UDjoATISEe3X ID Date Data Source [id number] 08/06/2020 05:03:44 PM EST [facility] PCName: Juan MitchellDOB: 4Provider: Timothy Ly: 08/06/2020 Chief ComplaintChronic low back pain. Increased abdominal pain over the last month. 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 Creatinine has been ordered as well for specimen validity, not for kidney function. Preliminary UDS results are not final and should not be used to determine patient care or plan of treatment. Initially a qualitative immunoassay screen will be done. Please note this is not a dip test. Any positive findings or negative findings that are out of compliance will be further tested with a more comprehensive quantitative confirmation LCMS study. It is part of the normal prescribing protocol of controlled substances and is considered standard of care. Recent test/procedures: Patient was asked and d enies having any tests since their last visit. Patient has been seen by the following physician since their last visit: Dr. Godwin The patient was last seen by a [facility] provider on 06/03/2020. At today's visit patient presents with their Self Implanted Devices The patient does not have any implanted devices. The patient does not have a glucose monitoring device. Patient is not currently working. 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 The patient is being seen for a workers compensation follow-up. The workers compensation date of injury is 02/05/1969. Active Problems 1. Cervical radiculopathy (723.4) (M54.12) 2. Chronic low back pain (724.2,338.29) (M54.5,G89.29) 3. Constipation (564.00) (K59.00) 4. Disc degeneration, lumbar (722.52) (M51.36) 5. jail current use of opiate analgesic (V58.69) (Z79.891) 6. Lumbar radiculitis (724.4) (M54.16) 7. Myofascial pain syndrome (729.1) (M79.18) 8. Other chronic pain (338.29) (G89.29) 9. Permanent Pacemaker Type 10. Postlaminectomy syndrome, lumbar (722.83) (M96.1) 11. Sacroiliac pain (724.6) (M53.3) 12. 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) Allergies Codeine Derivatives Anaphylaxis;; Updated By: Rae Corrales; 04/07/2012 3:19:22 PM Tape 1X5YD TAPE Blisters;; Updated By: Gay Hurst; 09/19/2015 2:26:04 PM Cymbalta CPEP fainting; Updated By: Rae Corrales; 04/07/2012 3:19:22 PM FLU Updated By: Gay Hurst; 09/19/2015 2:26:04 PM Adhesive Tape Blisters; Rash; Updated By: Artemio Chakraborty; 07/23/2014 2:51:08 PMDenied Iodinated Contrast Media Recorded By: Joana Sage; 04/23/2015 2:21:40 PM Latex Recorded By: Evon Mcfarlane; 12/01/2011 1:00:25 PM Current Meds amLODIPine Besylate 5 MG Oral Tablet;Therapy: (Recorded:28Imf9670) to Recorded Aspirin 81 MG Oral Tablet Delayed Release;Therapy: (Recorded:28Nov2017) to Cyykejbn10-51-37 10pm Levothyroxine Sodium 50 MCG Oral Tablet;Therapy: 09Oct2014 to Recorded Lidocaine 4 % External Patch; Apply three patches to affected areas 12 hours on, 12hours off MDD:3;Therapy: 12Dec2019 to (Evaluate:09Jun2020) Requested for: 12Dec2019; LastRx:12Dec2019 Ordered Lisinopril 20 MG Oral Tablet;Therapy: (Recorded:14Nov2018) to Recorded Magnesium Oxide 400 MG Oral Tablet;Therapy: (Recorded:14Nov2018) to Recorded Metaxalone 800 MG Oral Tablet; TAKE 1 TABLET tid prn MDD:3;Therapy: 12Ycx4255 to (Evaluate:70Npu1674) Requested for: 81Nra6668; LastRx:47Seq8813 Ordered Multi For Her TABS;Therapy: (Recorded:31Aug2012) to Recorded Nitroglycerin 0.4 MG Sublingual Tablet Sublingual;Therapy: (Recorded:14Nov2018) to Recorded oxyCODONE HCl - 10 MG Oral Tablet; Take one tablets q 4-6 hours as needed for painMDD:2 TDD:60mg;Therapy: 49Qyg6936 to (Evaluate:24Aug2020) Requested for: 69Kzt6307; LastRx:54Wbe1368 OrderedLD 08/05/2020 PM OxyCONTIN 20 MG Oral Tablet ER 12 Hour Abuse-Deterrent; 1 P O Q 12 HOURS MDD:2;Therapy: 06Feb2019 to (Evaluate:24Aug2020) Requested for: 92Grw2380; LastRx:03Trz2684 OrderedLD 08/06/2020 0900 Pantoprazole Sodium 40 MG Oral Tablet Delayed Release;Therapy: (Recorded:23Qpc5352) to Recorded Polyethylene Glycol 3350 17 GM/SCOOP Oral Powder; MIX 1 CAPFUL (17GM) IN 8OUNCES OF WATER, JUICE, OR TEA AND DRINK DAILY prn constipation MDD:17grams;Therapy: 22Oct2014 to (Evaluate:27May2018) Requested for: 28Nov2017; LastRx:61Dhm2889 Ordered Pravastatin Sodium TABS;Therapy: (Recorded:45Hgt6274) to Recorded Pregabalin 100 MG Oral Capsule; Take one PO TID MDD:3;Therapy: 03Jun2015 to (Evaluate:18Sep2020) Requested for: 23Jun2020; LastRx:76Mwz9311 Wclsjfx84-41-40 7:30am rOPINIRole HCl - 1 MG Oral Tablet;Therapy: 09Mgb0625 to Recorded Synthroid 25 MCG Oral Tablet;Therapy: (Recorded:51Qdw0501) to Recorded traZODone HCl - 50 MG Oral Tablet;Therapy: (Recorded:54Frx6097) to Recorded Past Medical History History of Chronic reflux esophagitis (530.11) (K21.00) History of acute arthritis (V13.4) (Z87.39) History of atrial fibrillation (V12.59) (Z86.79) Denied: History of blood coagulation disorder Assessed By: Albert Ly (Pain Management); Last Assessed: 19 Apr 2018 History of carpal tunnel syndrome (V12.49) (Z86.69) History of chronic renal failure syndrome (V13.09) (Z87.448) Resolved Date: 22 Mar 2017; Assessed By: Albert Ly (Pain Management); Last Assessed: 10 Aug 2016 History of hypertension (V12.59) (Z86.79) History of hypothyroidism (V12.29) (Z86.39) History of intestinal obstruction (V12.79) (Z87.19) History of low back pain (V13.59) (Z87.39) Denied: History of (V13.29) Assessed By: Albert Ly (Pain Management); Last Assessed: 19 Apr 2018 History of sinus bradycardia (V12.59) (Z86.79) History of type 2 diabetes mellitus (V12.29) (Z86.39) 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) Personal history of asthma (V12.69) (Z87.09) Denied: History of Taking Blood Thinners History of Thoracic outlet syndrome (353.0) (G54.0) Surgical History History of Back Surgery 4x History of Biopsy Of Liver 2007 History of Bladder Cystotomy History of Bladder Surgery bladder supension History of Cholecystectomy History of Colostomy History of Eye Surgery eye lid surgery History of Hernia Repair 2007 History of Hysterectomy Denied: History of Implantable Cardioverter-Defibrillator History of Nephrostomy Assessed By: Albert Ly (Pain Management); Last Assessed: 06 Aug 2020 Family History Family history of Arthritis (V17.7) Family history of Diabetes Mellitus (V18.0) Family history of Heart Disease (V17.49) Family history of Hypertension (V17.49) Family history of Cancer Social History Current non-drinker of alcohol (V49.89) (Z78.9) Denied: History of Drug Use Marital History - Currently Never smoker On permanent disability VitalsVital Signs Recorded: 09Cba1419 02:05PM Height: 5 ft 4.75 inWeight: 187 lb BMI Calculated: 31.36BSA Calculated: 1.92Systolic: 154, SittingDiastolic: 74, SittingHeart Rate: 93Respiration: 19Temperature: 96.4 FHeight measured w/wo shoes: w/shoesPain Scale: 8 Physical ExamGeneral: The patient is a well nourished/well developed, female, with a medium build, who is in no acute distress, appears stated age and Patient is using a walker at this appointment. Eyes: currently wearing eyeglasses. Ears, Nose, Mouth, Throat: Patient wearing a mask due to COVID-19. Gait and Station: Gait was antalgic. Lumbosacral Spine: Surgical incision, well healed surgical scar. Spinal alignment exhibits decreased lordosis. Palpatory Findings include Palpable deep pain in the right lower quadrant. - ROM Flexion: was restricted, was painful, at 30 degrees. - ROM Extension: was restricted, was painful, at 15 degrees.Right Lower Extremity Motor: - Hip: 5/5 flexion- Foot: 4/5 Plantar , 4/5 DorsiFlexionSpecial Tests: flip test was negativeLeft Lower Extremity Motor:- Hip: 5/5 flexion- Knee: 5/5 extension- Foot: 5/5 Plantar , 4/5 DorsiFlexionSpecial Tests: flip test was negativeNeurological:Sensation Left Lower: Decreased in the bi ateral L5 and S1 distributionSensation Right Lower: Decreased in the bilateral L5 and S1 distributionReflexes: Symmetric over Patella/Achilles. Skin: Warm, dry, acyanotic. Psychological: Alert and oriented to person, place and time. Mood and affect are pleasant and appropriate. Judgement intact. Insight normal without delusions or hallucinations. Denies suicidal/homicidal ideation. Results/DataThis patient had a urine drug screen on 06-03-2020. Results are in compliance. Assessment 1. Postlaminectomy syndrome, lumbar (722.83) (M96.1) Plan 1. MRI Renal Panel I ([facility]) (Serum Creatinine, BUN); Status:Hold For - Scheduling; Requested for:89Bxf5684; 2. UDS-LAB WC / NF ([facility] Urine Drug Screen); [Do Not Release]; Specimen Source:Urine; Status:In Progress - Specimen/Data Collected; Done: 23Adw0260 3. CT Scan ([facility]) Referral Diagnostic Diagnostic Status: Hold For - Scheduling Requested for: 96Hko6303Diprwqf Type : WC Within Guidelines 4. EMG ([facility]) Referral Diagnostic Diagnostic Status: Hold For - Scheduling Requested for: 21Tcc4760Nkebjeci - Schedule FUP : Schedule FUP 2 weeks after EMGSide : BilateralEMG Extremity : Lower ExtremityRequest Type : Authorization ( C4) 5. Follow-up in 1 month Follow Up Follow-up Status: Hold For - Scheduling Requested for: 23Arc0651PBJILY UP AFTER CT SCANSchedule Appointment for 15 or 30 minutes : Schedule 15 minute appointment Medication:. RADHA SYNTHETIC GEM PRESS OPERATOR Information: SYNTHETIC GEM PRESS OPERATOR was consulted by my designee and I have reviewed the information presented to me and find no aberrant compliance issues. Patient has been informed. General Medications Prescribed: METAXALONE.Controlled Substance Prescribed: OXYCODONE, P REGABALIN . CONTROLLED SUBSTANCE INFORMATION: I advised the patient today/previously regarding treatment with the above controlled substance and/or narcotic. The patient was then informed of the risks, benefits, and alternatives of the narcotic. The risks discussed included but were not limited to physical and/or psychological dependence, tolerance of the medication, drowsiness, sleepiness, balance/coordination problems, confusion, allergic reaction or any other abnormal symptoms. The patient was advised and agreed to use the medication only as prescribed, and not to drive, or operate heavy equipment or machinery. The patient understood and consented to both undergo a narcotic/opiate regimen and agreed to sign and comply with all of the [facility] terms of a controlled substance treatment and agreement. UDS: Patient scored as moderate opioid risk based on Opioid Risk Tool and total Morphine Equivalent Dosage.This is an established patient and is on ongoing opioid therapy. A UDS is being obtained today, the patient has previously consented to UDS as part of the Controlled Substance and Treatment Agreement. The reason for today's UDS is: patient was selected at random and scored as moderate risk on the opioid risk assessment. Creatinine has been ordered as well for specimen validity, not for kidney function. Preliminary UDS results are not final and should not be used to determine patient care or plan of treatment. Initially a qualitative immunoassay screen will be done. Any positive findings or negative findings that are out of compliance will be further tested with a more comprehensive quantitative confirmation LCMS study. It is part of the normal prescribing protocol of controlled substances and is considered standard of care. Treatment includes: DIAGNOSTIC STUDIES: Based on patients symptoms and physical exam findings, I am ordering the following diagnostic tests: - CT SCAN: I am ordering a CT scan of the LUMBAR SPINE and a BUN/CREATININE. I will call patient with results. EMG-NERVE CONDUCTION STUDY LOWER EXTREMITY: BILATERAL. This test is being ordered due to patient experiencing pain. - FALL PRECAUTIONS: Uzma is encouraged to use necessary assistive devices including cane and walker. Discussion/SummaryUzma is a 75 year old female resents today with an acute on chronic exacerbation of low back pain and right lower abdominal pain. She asked me if this is possibly coming from her back, I told her it is possible for the L1 nerve root or L to nerve root to be causing some of it but not a common presentation. She states she had a normal CT of the abdomen. She states she had 2 recent abdominal surgeries, the surgeon pulled stitching material out of her abdomen. Changes in the severe abdominal pain. Patient needs to follow up with the GI s pecialists. Recent x-raysof the lumbar spine showed that her bones are demineralized. Heavy marginal osteophytosis is seen bilaterally at every level but particularly along the right side of the spine involving the imaged lower thoracic spine and upper lumbar spine regions. There is near bridging at T12-L1 and L1-2 and seems to be bridging all imaged thoracic levels. There is L4-5 fusion. There appears to be prior posterior fusion at these levels as well. There is moderate disc space narrowing particularly posteriorly at every level. Flexion and extension bending views show no evidence of instability. Vertebral body heights within normal limits. Vertebral body alignment within normal limits. There was a question whether or not this patient has a history of DISH syndrome, and this extra x-ray certainly supports that diagnosis. I told her there is really nothing that we can do about it. I will order a CT of the lumbar spine and a nerve conduction study. She did not need a refill on her medications. Work / School NotePATIENT: if you submit this to your employer as an out of work note please be aware this includes PHI (Protected Health Information). The incident described by the patient is a competent medical cause of this injury. The patient's complaints are consistent with the history of the injury/illness. The patient's history of the injury/illness is consistent with my objective findings. The patient is not working at this time. Patient is on permanent disability. Disability rating is 100 %. Signatures Electronically signed by : CAREY Jessica; Aug 06 2020 2:45PM EST (Author) Electronically signed by : Carter Rankin MD; Aug 06 2020 5:03PM EST Name Value Range Interpretation Code Description Data Shasha rce(s) Supporting Document(s) ID Date Data Source [id number] 06/24/2020 10:07:37 PM EST [facility] RENAL OR AORTA COMPLETE [id number] RE SULTInterpreted by:Jacky Peña MDULTRASOUND RENAL.INDICATION: hydronephrosis.TECHNIQUE: Multiple sonographic real-time images of the kidneys and bladder were obtained.COMPARISON: 02/16/2018FINDINGS: The right kidney measures 11.5 x 5.2 x 4.6 cm. This corresponds to a calculated volume of 140 2 mL.The left kidney measures 9 x 3.8 x 3.6 cm. This corresponds to a calculated volume of 64.4 mL. The parenchymal thickness is 1.1 cm. There is mild prominence of the left ureter.Echogenic focus is present in the midpole of the left kidney. It could represent a calculus or a left nephroureteral stent. Correlate clinically.The margins of the kidneys are poorly visualized. Extrarenal pelvis is present bilaterally. There is no evidence of hydronephrosis.The patient is status post a cystectomy.IMPRESSION:Extrarenal pelvis bilaterally.Left hydroureter.Cannot exclude an obstructing calculus versus a left nephroureteral stent in the midpole of the left kidney.Margins of the kidneys poorly visualized.This document has been electronically signed by Jacky Peña MD on 06/24/2020 10:05 PM Name Value Range Interpretation Code Description Data Hsasha rce(s) Supporting Document(s) ID Date Data Source [id number] 06/23/2020 11:53:00 AM EST [facility] ([facility]) Name Value Range Interpretation Code Description Data [facility] rce(s) Supporting Document(s) Surgical pathology study Laboratory test result [facility] ([employer] [facility]) FINAL DIAGNOSIS Colon, random biopsy: Colonic mucosa with nonspecific inflammation. No evidence for microscopic colitis. 06/24/2020 - 1325 CLINICAL DIAGNOSIS Chronic anemia, bleeding from ostomy 06/23/20201535 GROSS DIAGNOSIS Received in formalin labeled "random colon biopsy" consists of three fragments of chandler tissue, 0.5 x 0.3 x 0.2 cm in aggregate. All in one. -SV 06/23/20201535 Signed MANAV CASTANEDA MD 06/25/2020 0811 ID Date Data Source [id number] 06/19/2020 12:00:[address] [facility] Mary Rogers MD Patient Name: UZMA [id number] Date of : 1945[address] Date of Exam: 06/19/2020RADHA Raza [id number]#: Fax: [phone] EXAM: CT ABDOMEN & PELVIS WITHOUT CONTRASTCLINICAL INFORMATION: Hydronephrosis and history of ureteral structure.Low dose [address] scanning of the abdomen and pelvis wasobtained without the administration of intravenous contrast.After multiple attempts, intravenous access was unsuccessful. Theexamination was performed without intravenous contrast administration.The latest prior for comparison is 12/03/2019 with other older priors alsoreviewed.There are chronic lung base changes, status quo.There is a urostomy on the right, status quo. There is a colostomy on theleft, status quo. There is no intestinal obstruction. There is noevidence of free fluid or free air. Limited evaluation of the solidintraabdominal organs show no significant changes from the prior exam.Limited evaluation of the pancreas, adrenal glands, and kidneys show nosignificant changes. Limited evaluation of the abdominal aorta andparaaortic regions show no significant changes. The bones are unchanged.IMPRESSION:No significant change when compared to the prior exam. There is noevidence of acute intraabdominal or intrapelvic disease with findings andlimitations as described above.Accredited by the [employer] in [place].IRAIS Caldera/Ruslan you for referring UZMA MITCHELL to our office.Electronically Signed - DILEEP JEFF DO 06/20/20 15:57 Name Value Range Interpretation Code Description Data Shasha rce(s) Supporting Document(s) ID Date Data Source [id number] 06/19/2020 12:00:[address] [facility] Albert PATINO Patient Name: UZMA MITCHELL549[address] [place] [facility] Date of : 1945[facility] [place] [place] [address] Date of Exam: 06/19/2020#: Fax: [phone] EXAM: LUMBOSACRAL SPINE COMPLETE WITH BENDING XRAYCLINICAL INFORMATION: Pain.Seven views with flexion, extension and bending views. These images wereobtained using digital radiography.There are no prior lumbosacral spine series for comparison.The bones are demineralized. Heavy marginal osteophytosis is seenbilaterally at every level but particularly along the right side of thespine involving the imaged lower thoracic spine and upper lumbar spineregions. This is near bridging at T12-L1 and L1-2 and seems to be bridgingat all imaged thoracic levels. There is L4-5 fusion. There appears to beprior posterior fusion at those levels as well. I have been given nosurgical history. There is moderate disc space narrowing, particularlyposteriorly at every level. Flexion and extension bending views show noevidence of instability. Vertebral body height is within normal limits.Vertebral body alignment is within normal limits.IMPRESSION:Marked chronic changes as described above. Does this patient have ahistory of DISH?IRAIS Caldera/Ruslan you for referring UZMA MITCHELL to our office. Electronically Signed - DILEEP JEFF DO 06/19/20 13:59 Name Value Range Interpretation Code Description Data Shasha rce(s) Supporting Document(s) ID Date Data Source [id number] 06/18/2020 10:30:00 AM EDT [facility] Name Value Range Interpretation Code Description Data Shasha rce(s) Supporting Document(s) SARS coronavirus 2 RNA [facility] This lab was ordered by [facility] and reported by [facility]. ID Date Data Source [id number] 07/31/2020 12:10:55 PM EST [facility], PCName: Juan MitchellDOB: 4Provider: MalachiTimothy: 06/03/2020 Chief ComplaintChronic low back pain right greater than left Chief Complaint 2NYSW VAS PAIN Established: JC completing section: DANNA GREENE History of Present IllnessA Urine Drug Screen was ordered for Uzma Mitchell and collected on site today 06/03/2020. Creatinine has been ordered as well for specimen validity, not for kidney function. Preliminary UDS results are not final and should not be used to determine patient care or plan of treatment. Initially a qualitative immunoassay screen will be done. Please note this is not a dip test. Any positive findings or negative findings that are out of compliance will be further tested with a more comprehensive quantitative confirmation LCMS study. It is part of the normal prescribing protocol of controlled substances and is considered standard of care. Recent test/procedures: Patient was asked and denies having any tests since their last visit. Patient was asked and denies being seen by any Physicians since their last visit. The patient was last seen by a [facility] provider on 03/11/2020. At today's visit patient presents with their Self Patient is retired. The patient is being seen for a workers compensation follow-up. The workers compensation date of injury is 02/05/69. Pain Duration: YRS Pain Quality: (Neuropathic) burning Pain Quality: (Nociceptive) sharp Timing: constant Palliation: non-opioid analgesics, opioid analgesics and rest Exacerbating: Any activity Pain Score: a current pain level of 9/10. Review of SystemsConstitutional: Normal. Eyes: Normal. ENT: normal. Cardiovascular: Normal. Respiratory: Normal. Gastrointestinal: Normal. Genitourinary: Normal. Musculoskeletal: lower back pain. Integumentary: Normal. Neurological: a burning sensation. Psychiatric: depression. Endocrine: Normal. Hematologic/Lymphatic: Normal. I reviewed the above with the patient and I feel the ROS to be negat taqueria/normal other than Lower back pain,burning, depression. Denies suicidal ideation/plan.. Active Problems 1. Cervical radiculopathy (723.4) (M54.12) 2. Chronic low back pain (724.2,338.29) (M54.5,G89.29) 3. Constipation (564.00) (K59.00) 4. 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 Lumbar radiculitis (724.4) (M54.16) 7. Myofascial pain syndrome (729.1) (M79.18) 8. Other chronic pain (338.29) (G89.29) 9. Permanent Pacemaker Type 10. Postlaminectomy syndrome, lumbar (722.83) (M96.1) 11. Sacroiliac pain (724.6) (M53.3) 12. 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) Allergies Codeine Derivatives Anaphylaxis;; Updated By: Rae Corrales; 04/07/2012 3:19:22 PM Tape [id number] TAPE Blisters;; Updated By: Gay Hurst; 09/19/2015 2:26:04 PM Cymbalta CPEP fainting; Updated By: Rae Corrales; 04/07/2012 3:19:22 PM FLU Updated By: Gay Hurst; 09/19/2015 2:26:04 PM Adhesive Tape Blisters; Rash; Updated By: Artemio Chakraborty; 07/23/2014 2:51:08 PMDenied Iodinated Contrast Media Recorded By: Joana Pastor; 04/23/2015 2:21:40 PM Latex Recorded By: Evon Mcfarlane; 12/01/2011 1:00:25 PM Current Meds amLODIPine Besylate 5 MG Oral Tablet;Therapy: (Recorded:[id number]) to Recorded Aspirin 81 MG Oral Tablet Delayed Release;Therapy: (Recorded:28Nov2017) to [id number] 10pm B-12 CAPS;Therapy: (Recorded:22Oct2014) to Recorded Ferrous Sulfate TABS;Therapy: (Recorded:14Nov2018) to Recorded Levothyroxine Sodium 50 MCG Oral Tablet;Therapy: 09Oct2014 to Recorded Lidocaine 4 % External Patch; Apply three patches to affected areas 12 hours on, 12hours off MDD:3;Therapy: 12Dec2019 to (Evaluate:09Jun2020) Requested for: 12Dec2019; LastRx:12Dec2019 Ordered Lisinopril 20 MG Oral Tablet;Therapy: (Recorded:14Nov2018) to Recorded Magnesium Oxide 400 MG Oral Tablet;Therapy: (Recorded:14Nov2018) to Recorded Metaxalone 800 MG Oral Tablet; TAKE 1 TABLET tid prn MDD:3;Therapy: 27Sep2011 to (Evaluate:19Ytm5642) Requested for: 15Apr2020; LastRx:15Apr2020 Ordered Multi For Her TABS;Therapy: (Recorded:31Aug2012) to Recorded Nitroglycerin 0.4 MG Sublingual Tablet Sublingual;Therapy: (Recorded:14Nov2018) to Recorded oxyCODONE HCl - 10 MG Oral Tablet; Take one tablets q 4-6 hours as needed for painMDD:2 TDD:60mg;Therapy: 22Mar2017 to (Evaluate:21Jun2020) Requested for: 22May2020; LastRx:22May2020 OrderedLD 06/03/2020 10 AM OxyCONTIN 20 MG Oral Tablet ER 12 Hour Abuse-Deterrent; 1 P O Q 12 HOURS MDD:2;Therapy: 06Feb2019 to (Evaluate:21Jun2020) Requested for: 22May2020; LastRx:22May2020 Qcccxvf5605/22 11PM Pantoprazole Sodium 40 MG Oral Tablet Delayed Release;Therapy: (Recorded:43Qdk9814) to Recorded Polyethylene Glycol 3350 17 GM/SCOOP Oral Powder; MIX 1 CAPFUL (17GM) IN 8OUNCES OF WATER, JUICE, OR TEA AND DRINK DAILY prn constipation MDD:17grams;Therapy: 22Oct2014 to (Evaluate:27May2018) Requested for: 28Nov2017; LastRx:28Nov2017 Ordered Pravastatin Sodium TABS;Therapy: (Recorded:07Apr2012) to Recorded Pregabalin 100 MG Oral Capsule; Take one PO TID MDD:3;Therapy: 03Jun2015 to (Evaluate:59Wxy2078) Requested for: 65Pft0321; LastRx:29Yyj8673 Dflbyoq07-98-10 7:30am rOPINIRole HCl - 1 MG Oral Tablet;Therapy: 40Fsv3755 to Recorded Synthroid 25 MCG Oral Tablet;Therapy: (Recorded:31May2012) to Recorded traZODone HCl - 50 MG Oral Tablet;Therapy: (Recorded:30Jan2018) to Recorded Past Medical History History of Chronic reflux esophagitis (530.11) (K21.00) History of acute arthritis (V13.4) (Z87.39) History of atrial fibrillation (V12.59) (Z86.79) Denied: History of blood coagulation disorder Assessed By: Albert Ly (Pain Management); Last Assessed: 19 Apr 2018 History of carpal tunnel syndrome (V12.49) (Z86.69) History of chronic renal failure syndrome (V13.09) (Z87.448) Resolved Date: 22 Mar 2017; Assessed By: Albert Ly (Pain Management); Last Assessed: 10 Aug 2016 History of hypertension (V12.59) (Z86.79) History of hypothyroidism (V12.29) (Z86.39) History of intestinal obstruction (V12.79) (Z87.19) History of low back pain (V13.59) (Z87.39) Denied: History of (V13.29) Assessed By: Albert Ly (Pain Management); Last Assessed: 19 Apr 2018 History of sinus bradycardia (V12.59) (Z86.79) History of type 2 diabetes mellitus (V12.29) (Z86.39) 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) Personal history of asthma (V12.69) (Z87.09) Denied: History of Taking Blood Thinners History of Thoracic outlet syndrome (353.0) (G54.0) Surgical History History of Back Surgery 4x History of Biopsy Of Liver 2007 History of Bladder Cystotomy History of Bladder Surgery bladder supension History of Cholecystectomy History of Colostomy History of Eye Surgery eye lid surgery History of Hernia Repair 2007 History of Hysterectomy Denied: History of Implantable Cardioverter-Defibrillator Family History Family history of Arthritis (V17.7) Family history of Diabetes Mellitus (V18.0) Family history of Heart Disease (V17.49) Family history of Hypertension (V17.49) Family history of Cancer Social History Current non-drinker of alcohol (V49.89) (Z78.9) Denied: History of Drug Use Marital History - Currently Never smoker On permanent disability VitalsVital Signs Recorded: 03Jun2020 01:12PM Systolic: 116, SittingDiastolic: 88, SittingHeart Rate: 82Respiration: 17Temperature: 97 FPain Scale: 7PATIENT REFUSED WEIGHT AND HEIGHT Physical ExamGeneral: The patient is a well nourished/well developed, female, with a medium build, who is in no acute distress, appears stated age and Patient is usi ng a walker at this appointment. Eyes: Lids are atraumatic, no lesions, sclerae are anicteric. Ears, Nose, Mouth, Throat: external ears and nose without trauma. Gait and Station: Gait was antalgic. Psychological: Alert and oriented to person, place and time. Mood and affect are pleasant and appropriate. Judgement intact. Insight normal without delusions or hallucinations. Denies suicidal/homicidal ideation. Results/DataThis patient had a urine drug screen on 03-11-2020. Results are in compliance. Assessment 1. Postlaminectomy syndrome, lumbar (722.83) (M96.1) Plan 1. MRI Renal Panel I ([facility]) (Serum Creatinine, BUN); Status:Hold For - Scheduling; Requested for:03Jun2020; 2. UDS-LAB WC / NF ([facility] Urine Drug Screen); [Do Not Release]; Specimen Source:Urine; Status:In Progress - Specimen/Data Collected; Done: 03Jun2020 3. EMG ([facility]) Referral Diagnostic Diagnostic Status: Hold For - Scheduling Requested for: [id number] - Schedule FUP : Schedule FUP 4 weeks after EMGSide : BilateralEMG Extremity : Lower ExtremityRequest Type : Authorization ( C4) 4. MRI ([facility]) Referral Treatment Treatment Status: Hold For - Scheduling Requested for: [id number] Patient have SCS...? : NoFront Desk Reminder: : No follow up needed, pending surgical referralIs this to rule out a mass? : NoHas the patient had Lumbar surgery? : NoOrder Bun/Creatinine : Order Bun/CreatinineDo any of these apply to the patient? : Patient is 60 or olderAny Anaphylaxis Reactions? : No<OBX.5.1><OBX.5.1.1>Contrast : With </OBX.5.1.1><OBX.5.1.2> Without Contrast</OBX.5.1.2></OBX.5.1>Request Type : Authorization ( C4)MRI Reminder : Ins may require patient to have 4-6 wks of recent/documented PT on body partMRI Body Part : L-SpineIs this for a MILD MRI...? : No 5. X-Ray ([facility]) Referral Diagnostic Diagnostic Status: Hold For - Scheduling Requested for: [id number] Type : Authorization ( C4)X-Ray View(s) : Complete w/ Flexion/Extension (measure gotti angle if present)Side : BilateralX-Ray Body Part : Lumbosacral Complete Medication:. General Medications Prescribed: Lidocaine, metaxalone, . GENERAL MEDICATIONS: I advised the patient today/previously regarding treatment with the above medication(s). The risks, benefits, common side effects and alternative treatments were discussed with the patient. The provider verbalized with the patient. The patient verbalized understanding and was told to call if there were any untoward effects. Controlled Substance Prescribed: oxycodone, pregabalin . CONTROLLED SUBSTANCE INFORMATION: I advised the patient today/previously regarding treatment with the above controlled substance and/or narcotic. The patient was then informed of the risks, benefits, and alternatives of the narcotic. The risks discussed included but were not limited to physical and/or psychological dependence, tolerance of the medication, drowsiness, sleepiness, balance/coordination problems, confusion, allergic reaction or any other abnormal symptoms. The patient was advised and agreed to use the medication only as prescribed, and not to drive, or operate heavy equipment or machinery. The patient understood and consented to both undergo a narcotic/opiate regimen and agreed to sign and comply with all of the [facility] terms of a controlled substance treatment and agreement. Treatment includes: DIAGNOSTIC STUDIES: Based on patients symptoms and physical exam findings, I am ordering the following diagnostic tests: - MRI: I am ordering a REPEAT MRI, of the LUMBAR SPINE without and with GADOLINIUM, and a BUN/CREATININE. - X-Ray: I a m ordering an X-RAYof the LUMBAR SPINE. EMG-NERVE CONDUCTION STUDY LOWER EXTREMITY: BILATERAL. This test is being ordered due to patient experiencing pain, numbness and weakness. Discussion/SummaryUzma is a pleasant 75-year-old female who is severely debilitated she comes in today with a walker and braces on her both her legs. She deferred a physical exam because she had her braces on. She feels like her pain is worse, now she has trouble even with sitting and is requesting a lumbar MRI and nerve conduction study. She states that she becomes much further debilitated she will be bedridden. She has had 4 back surgeries. She has failed nerve blocks. Was told that a spinal cord stimulator would not help her and am not sure if the clinician could get through the scar tissue. We will order an MRI of the lumbar spine with and without contrast and have it compared to the previous study. We will see her for a renal panel. I am going to order x-rays of the lumbar spine and nerve conduction study\\, all of which are medically necessary due to the deterioration of her of her condition. No changes in the medications. UDS was collected today. Work / School NotePATIENT: if you submit this to your employer as an out of work note please be aware this includes PHI (Protected Health Information). The incident described by the patient is a competent medical cause of this injury. The patient's complaints are consistent with the history of the injury/illness. The patient's history of the injury/illness is consistent with my objective findings. The patient is not working at this time. Patient is on permanent disability. Disability rating is 100 %. Signatures Electronically signed by : CAREY Jessica; Jun 03 2020 1:37PM EST (Author) Electronically signed by : Bonilla Goel MD; Jun 03 2020 3:34PM EST Name Value Range Interpretation Code Description Data Shasha rce(s) Supporting Document(s) Procedure Social History Code Duration Value Status Description Data Source(s ) Alcohol intake 12/02/2020 12:00:00 AM EDT Ex-drinker (finding) comp leted Ex- drinker (finding) [facility] Smoking 12/02/2020 12:00:00 AM EDT Never smoker completed Never s moker [facility] Alcohol intake 07/15/2020 12:00:00 AM EST Current non-d lai of alcohol (finding) completed Current non-drinker of alcohol (finding) [facility] Alcohol intake 06/24/2020 12:00:00 AM EST Current non-d lai of alcohol (finding) completed Current non-drinker of alcohol (finding) [facility] Tobacco use and exposure 06/24/2020 12:00:00 AM EST Never used co mpleted Never used [facility] Smoking 06/24/2020 12:00:00 AM EST Never smoker completed Never s [facility] Vital Signs ID Date Data Source UNK Name Value Range Interpretation Code Description Data Source(s) Body temperature 96.7 [degF] 96.7 [degF] [facility] Body height 65 [in_i] 65 [in_i] [facility] ([facility] 5'5" Body weight 171.00 [lb_av] 171.00 [lb_av] MEDEN T ([facility]) Systolic blood pressure 132 mm[Hg] 132 mm[Hg] M EDENT ([facility]) Diastolic blood pressure 69 mm[Hg] 69 mm[Hg] [facility] ([facility]) Heart rate 69 /min 69 /min [facility] Body mass index (BMI) [Ratio] 28.5 kg/m2 28.5 k g/m2 [facility] ([facility]) Body weight 77.566 kg 77.566 kg [facility] ([facility]) Body mass index (BMI) [Ratio] 30.4 kg/m2 30.4 k g/m2 [facility] ([facility]) Body height 65 [in_i] 65 [in_i] [facility] ([facility]) 5'5" Body weight 183.00 [lb_av] 183.00 [lb_av] MEDEN T ([facility]) Oxygen saturation in Arterial blood by Pulse oximetry 91 % 91 % [facility] ([facility]) Systolic blood pressure 120 mm[Hg] 120 mm[Hg] [facility] Diastolic blood pressure 60 mm[Hg] 60 mm[Hg] [facility] ([facility]) Heart rate 91 /min 91 /min [facility] ([facility]) Heart rate 82 /min 82 /min [facility] ([facility]) Body height 65 [in_i] 65 [in_i] RIN ([facility]) 5'5" Systolic blood pressure 122 mm[Hg] 122 mm[Hg] M EDBINDU ([facility]) Diastolic blood pressure 64 mm[Hg] 64 mm[Hg] [facility] ([facility]) Body weight 181.00 [lb_av] 181.00 [lb_av] MEDEN T ([facility]) Body mass index (BMI) [Ratio] 30.1 kg/m2 30.1 k g/m2 RIN ([facility]) Oxygen saturation in Arterial blood by Pulse oximetry 95 % 95 % RIN ([facility]) Air Systolic blood pressure 140 mm[Hg] 140 mm[Hg] [facility] Oxygen saturation in Arterial blood by Pulse oximetry 98 % 98 % [facility] Diastolic blood pressure 62 mm[Hg] 62 mm[Hg] [facility] Heart rate 76 /min 76 /min [facility] Body height 165.1 cm 165.1 cm [facility] Body weight 82.01 kg 82.01 kg [facility] Body mass index (BMI) [Ratio] 30.09 kg/m2 30.09 kg/m2 [facility] Body weight 184.38 [lb_av] 184.38 [lb_av] LISBET Heller ([facility]) Diastolic blood pressure 60 mm[Hg] 60 mm[Hg] [facility] ([facility]) Systolic blood pressure--supine 130 mm[Hg] 130 mm[Hg] [facility] ([facility]) laying down Diastolic blood pressure--supine 60 mm[Hg] 60 mm[Hg] [facility] ([facility]) laying down Systolic blood pressure 138 mm[Hg] 138 mm[Hg] M ALYSHA ([facility]) Systolic blood pressure--sitting 120 mm[Hg] 120 mm[Hg] [facility] ([facility]) sitting Diastolic blood pressure--sitting 70 mm[Hg] 70 mm[Hg] RIN ([facility]) sitting Systolic blood pressure--standing 140 mm[Hg] 14 0 mm[Hg] MEDENT ([facility]) standing Diastolic blood pressure--standing 70 mm[Hg] 7 0 mm[Hg] [facility] ([facility]) standing Heart rate 90 /min 90 /min [facility] ([facility]) Body height 65 [in_i] 65 [in_i] [facility] ([facility]) 5'5" Oxygen saturation in Arterial blood by Pulse oximetry 94 % 94 % [facility] ([facility]) RM Air Oxygen saturation in Arterial blood by Pulse oximetry --post exerci se 91 % 91 % [facility] ([facility]) while walking Body mass index (BMI) [Ratio] 30.7 kg/m2 30.7 k g/m2 [facility] ([facility]) Oxygen saturation in Arterial blood by Pulse oximetry 97 % 97 % [facility] ([facility]) Body height 65 [in_i] 65 [in_i] [facility] ([facility]) 5'5" Systolic blood pressure 114 mm[Hg] 114 mm[Hg] M EDENT ([facility]) Diastolic blood pressure 64 mm[Hg] 64 mm[Hg] [facility] ([facility]) Heart rate 83 /min 83 /min [facility] ([facility] Body weight 184.00 [lb_av] 184.00 [lb_av] JANAKEN T ([facility]) Body mass index (BMI) [Ratio] 30.6 kg/m2 30.6 k g/m2 [facility] ([facility]) Systolic blood pressure 132 mm[Hg] 132 mm[Hg] [facility] Diastolic blood pressure 72 mm[Hg] 72 mm[Hg] [facility] Body weight 83.008 kg 83.008 kg [facility] Body mass index (BMI) [Ratio] 30.45 kg/m2 30.45 kg/m2 [facility] Oxygen saturation in Arterial blood by Pulse oximetry 97 % 97 % [facility] Heart rate 85 /min 85 /min [facility] Body height 165.1 cm 165.1 cm [facility] Oxygen saturation in Arterial blood by Pulse oximetry 98 % 98 % [facility] ([facility]) Systolic blood pressure 132 mm[Hg] 132 mm[Hg] M EDENT ([facility]) Diastolic blood pressure 72 mm[Hg] 72 mm[Hg] [facility] ([facility]) Heart rate 60 /min 60 /min [facility] ([facility]) Body height 65 [in_i] 65 [in_i] [facility] ([facility]) 5'5" Body weight 178.00 [lb_av] 178.00 [lb_av] MEDEN T ([facility]) Systolic blood pressure 138 mm[Hg] 138 mm[Hg] [facility] Oxygen saturation in Arterial blood by Pulse oximetry 98 % 98 % [facility] ([facility]) Heart rate 72 /min 72 /min [facility] ([facility]) Body height 65 [in_i] 65 [in_i] [facility] ([facility]) 5'5" Body mass index (BMI) [Ratio] 29.6 kg/m2 29.6 k g/m2 [facility] ([facility]) Diastolic blood pressure 70 mm[Hg] 70 mm[Hg] [facility] ([facility]) Body mass index (BMI) [Ratio] 31.6 kg/m2 31.6 k g/m2 [facility] ([facility], ) [place] body weight 115 [lb_av] 115 [lb_av] MEDEN T ([facility], ) Body weight 80.854 kg 80.854 kg [facility] ([facility], ) Systolic blood pressure 142 mm[Hg] 142 mm[Hg] [facility], [facility] Diastolic blood pressure 60 mm[Hg] 60 mm[Hg] [facility] ([facility], ) Body height 63 [in_i] 63 [in_i] [facility] ([facility], ) 5'3" Body weight 178.25 [lb_av] 178.25 [lb_av] MEDEN T ([facility], ) Body height 65 [in_i] 65 [in_i] [facility] 5'5" Body weight 176.00 [lb_av] 176.00 [lb_av] [facility] [facility] Systolic blood pressure 134 mm[Hg] 134 mm[Hg] M [facility] ([facility]) Diastolic blood pressure 78 mm[Hg] 78 mm[Hg] [facility] Heart rate 86 /min 86 /min [facility] Body mass index (BMI) [Ratio] 29.3 kg/m2 29.3 k g/m2 [facility]) Body weight 79.834 kg 79.834 kg [facility] Body temperature 93.6 [degF] 93.6 [degF] [facility] ([facility]) ID Date Data Source [id number] 08/21/2020 10:13:50 PM [facility] Name Value Range Interpretation Code Description Data Source(s) WEIGHT RECORDED 170 lb 170 lb [facility] Body height Measured 65 in 65 in [facility] ID Date Data Source [id number] 10/17/2020 07:44:39 PM [facility] Name Value Range Interpretation Code Description Data Source(s) Body height Measured 65 in 65 in [facility] Patient Treatment Plan of Care Planned Activity Planned Date Details Description Data Source (s) Amlodipine 10 MG Oral Tablet 11/24/2020 12:00:00 AM EDT [facility] 24 HR metoprolol succinate 25 MG Extended Release Oral Tablet 10/14/2020 12:00:00 AM [facility] Sulfamethoxazole 800 MG / Trimethoprim 160 MG Oral Tab let 07/15/2020 03:15:00 PM [facility] ospital Albuterol 0.83 MG/ML Inhalant Solution 05/23/2020 12:00:00 AM EDT [facility] Amlodipine 5 MG Oral Tablet 10/12/2019 12:00:00 AM [facility] Vitamin B 12 1 MG Oral Tablet [facility] Magnesium Oxide (MAG-OX) 400 MG tablet [facility] [id number] PO [facility]
[2021-06-22] MEDS ORDERED: LIDOCAINE 2% 100MG/5ML SDV (FOR ANES.) As Ordered ONE (12:19)
[2021-06-22] MEDS ORDERED: propofoL 200 MG/20 ML VIAL As Ordered ONE (12:20)
--- NOTE | 2021-06-22 13:06 | ROOR ---
Patient Name: Uzma Miller Procedure Date: 06/22/2021 12:47 PM Date of : 1945 Age: 76 Room: [facility] Gender: Female Note Status: Finalized Procedure: Upper GI endoscopy + Balloon dilatation Indications: Dysphagia, Heartburn, Abnormal UGI series Providers: Dar Oneal MD Referring MD: MINI WEBB JR, MD Requesting Provider: Medicines: Monitored Anesthesia Care Complications: No immediate complications. Procedure: Pre-Anesthesia Assessment: - The heart rate, respiratory rate, oxygen saturations, blood pressure, adequacy of pulmonary ventilation, and response to care were monitored throughout the procedure. The Endoscope was introduced through the mouth, and advanced to the second part of duodenum. The upper GI endoscopy was accomplished without difficulty. The patient tolerated the procedure well. Findings: The Z-line was regular and was found 40 cm from the incisors. No other significant abnormalities were identified in a careful examination of the stomach. The exam of the duodenum was otherwise normal. A TTS dilator was passed through the scope. Dilation with a 12-13.5-15 mm balloon dilator was performed to 15 mm in the entire esophagus. The exam was otherwise without abnormality. Impression: - Z-line regular, 40 cm from the incisors. - The examination was otherwise normal. - Dilation performed in the entire esophagus. - No specimens collected. - The examination was otherwise normal. Recommendation: - Patient has a contact number available for emergencies. The signs and symptoms of potential delayed complications were discussed with the patient. Return to normal activities tomorrow. Written discharge instructions were provided to the patient. - Soft diet. - Discharge patient to home. - Follow an antireflux regimen. - Continue present medications. - Return to referring physician. - Repeat upper endoscopy PRN for retreatment. - The findings and recommendations were discussed with the patient. Procedure Code(s): --- Professional --- 69969, Esophagogastroduodenoscopy, flexible, transoral; with transendoscopic balloon dilation of esophagus (less than 30 mm diameter) Diagnosis Code(s): --- Professional --- R13.10, Dysphagia, unspecified R12, Heartburn R93.3, Abnormal findings on diagnostic imaging of other parts of digestive tract CPT copyright 2019 [employer]. All rights reserved. The codes documented in this report are preliminary and upon director of women's services review may be revised to meet current compliance requirements. Dar Oneal MD Dar Oneal MD 06/22/2021 1:05:52 PM Electronically signed by Dar Oneal MD Number of Addenda: 0 Note Initiated On: 06/22/2021 12:47 PM Estimated Blood Loss: Estimated blood loss: none.
[2021-06-22 13:42] VITALS: BP 134/72
== END 2021-06-22 13:41 | disposition home or self-care (01) ==
LOC: M OPP 11:02
PROVIDERS: ATTEND Internal Medicine Gastroenterology
DX: R13.10 Dysphagia, unspecified (principal); R12 Heartburn; R93.89 Abnormal findings on diagnostic imaging of other specified body structures; Z88.6 Allergy status to analgesic agent; Z88.7 Allergy status to serum and vaccine; Z88.8 Allergy status to other drugs, medicaments and biological substances; Z91.048 Other nonmedicinal substance allergy status

== ENCOUNTER → 2021-06-23 | Outpatient (POV) | payer MEDICARE, BC ==
[~2021-06-23] VITALS: Ht 165.1 cm; Wt 79.5 kg
[~2021-06-23] MED LIST changes: -NS 1,000 ML IV ONE
[2021-06-23 13:40] VITALS: BP 154/90
--- NOTE | 2021-06-25 12:50 | IRPN ---
[facility] IR Progress Note IR Progress Note DATE: Jun 23, 2021 FOLLOW-UP: Patient has history of cystectomy and ileal conduit. Patient presented in May with right flank pain, new hydronephrosis and slightly worse renal function. She had a right nephrostomy catheter placed. Right nephrostomy catheter is draining well, clear yellow urine. Patient has noticed that the smell of the urine from her ostomy is improved since nephrostomy placement. Patient does have 2 kidneys. Patient had prior history of bilateral ureteral stents. However, her stents fell out some years ago and she was managed without ureteral stents for over a year. However, post right nephrostomy catheter placement, her renal function appears to have improved. I discussed this with Dr. Rogers and he thinks there is merit to continuing right nephrostomy catheter drainage. Her right kidney is her primary functioning kidney. ON EXAMINATION: Right nephrostomy in place. No cellulitis. Clear urine in the bag. IMPRESSION: Patient with cystectomy and ileal conduit, with right nephrostomy placement status post new right hydronephrosis and worsening renal function. Although the nephrostomy catheter did nothing for her right flank pain, her renal function did improve slightly post nephrostomy placement. It is felt that the right kidney was obstructed and is responding to nephrostomy drainage. Continue right nephrostomy catheter drainage to a bag with 3-monthly exchanges. Thank you for this referral. CC Dr. Arben Rogers CC Dr. Nur Allergies Coded Allergies: pneumococcal vaccine (Verified Allergy, Intermediate, hives, 04/09/21) influenza virus vacc trivalent, spl (Verified Adverse Reaction, Severe, coma, 04/09/21) influenza virus vaccine tv 2012-(18-49 yrs),rcmb (Verified Adverse Reaction, Severe, flu vaccine - coma, 04/09/21) Corticosteroids (Glucocorticoids) (Verified Adverse Reaction, Mild, weakness, 04/09/21) TAPE (Verified Adverse Reaction, Mild, BLISTERS, 04/09/21) clonidine (Verified Adverse Reaction, Mild, faint, 04/09/21) quinapril (Verified Adverse Reaction, Mild, passed out, 04/09/21) zolpidem (Verified Adverse Reaction, Mild, sleep walking, 04/09/21) VS,Fishbone, I+O VS, Fishbone, I+O Vital Signs Date Time Temp Pulse Resp B/P (MAP) Pulse Ox O2 Delivery O2 Flow Rate FiO2 06/23/21 13:40 97.5 80 20 154/90 (111) 94 Room Air ANGELA MENDOZA MD Jun 25, 2021 12:50
== END ==
LOC: M IRPOV 13:26
PROVIDERS: ATTEND Radiology Diagnostic Radiology
DX: Z43.6 Encounter for attention to other artificial openings of urinary tract (principal); N13.30 Unspecified hydronephrosis; N28.89 Other specified disorders of kidney and ureter; R10.9 Unspecified abdominal pain; Z88.7 Allergy status to serum and vaccine; Z88.8 Allergy status to other drugs, medicaments and biological substances; Z91.048 Other nonmedicinal substance allergy status; Z93.6 Other artificial openings of urinary tract status

== ENCOUNTER 2021-07-16 10:15 | Emergency (ER) | payer MEDICARE, BC ==
[~2021-07-16] VITALS: Ht 165.1 cm; Wt 78.6 kg
[~2021-07-16 10:15] MED LIST changes: -FLUC200T2; +FLUC200T4; -LEVO250T12 PO; +LEVO250T3 PO; -LEVO500T3 PO; +LEVO500T4 PO
[2021-07-16 10:49] LABS: BASO % 0.2 % (0.0-1.0); EOS # 0.1 10^3/uL (0.0-0.5); HEMATOCRIT 30.7 % (36.0-47.0); HEMOGLOBIN 9.6 g/dl (12.0-15.5); LYMPH # 2.1 10^3/uL (1.5-5.0); LYMPH % 35.7 % (24.0-44.0); MEAN CORPUSCULAR HEMOGLOBIN 30.1 pg (27.0-33.0); MEAN CORPUSCULAR HGB CONC 31.3 g/dl (32.0-36.5); MEAN CORPUSCULAR VOLUME 96.2 fl (80.0-96.0); MONO # 0.5 10^3/uL (0.0-0.8); MONO % 7.9 % (2.0-8.0); NEUTROPHILS # 3.2 10^3/uL (1.5-8.5); NEUTROPHILS % 54.9 % (36.0-66.0); PLATELET COUNT, AUTOMATED 244 10^3/uL (150-450); RED BLOOD COUNT 3.19 10^6/uL (4.00-5.40); WHITE BLOOD COUNT 5.8 10^3/uL (4.0-10.0)
[2021-07-16 11:19] LABS: ALBUMIN 2.8 GM/DL (3.2-5.2); BILIRUBIN,DIRECT 0.2 MG/DL (0.0-0.2); BILIRUBIN,TOTAL 0.5 MG/DL (0.2-1.0)
[2021-07-16] MEDS ORDERED: ONDANSETRON 4MG/2ML VIAL IV ONE (11:20)
[2021-07-16] MEDS ORDERED: MORPHINE 4 MG/ML 1ML VIAL/SYRINGE (J2270) IV ONE (11:20)
[2021-07-16 13:02] LABS: RSV AMPLIFICATION NEGATIVE (NEGATIVE)
[2021-07-16] MEDS ORDERED: MORPHINE 2 MG/ML 1ML VIAL (J2270) IV ONE (14:10)
[2021-07-16] MEDS ORDERED: cefTRIAXone SOD 1 GM in D5W MINI-BAG PLUS 50 ML IV ONE (15:50)
[2021-07-16] MEDS ORDERED: CEFD300C41 PO (15:51)
[2021-07-16 16:54] VITALS: BP 163/75
== END 2021-07-16 17:07 | disposition home or self-care (01) ==
LOC: M ED 10:15
DX: N39.0 Urinary tract infection, site not specified (principal); T83.022A Displacement of nephrostomy catheter, initial encounter; I48.91 Unspecified atrial fibrillation; E11.9 Type 2 diabetes mellitus without complications; I10 Essential (primary) hypertension; Z86.73 Personal history of transient ischemic attack (TIA), and cerebral infarction without residual deficits; Z87.442 Personal history of urinary calculi; K21.9 Gastro-esophageal reflux disease without esophagitis; N18.30 Chronic kidney disease, stage 3 unspecified; E03.9 Hypothyroidism, unspecified; D35.00 Benign neoplasm of unspecified adrenal gland; M79.7 Fibromyalgia; G25.81 Restless legs syndrome; D50.9 Iron deficiency anemia, unspecified; K74.60 Unspecified cirrhosis of liver; Z79.82 Long term (current) use of aspirin; Z79.899 Other long term (current) drug therapy; Z91.89 Other specified personal risk factors, not elsewhere classified; Z88.8 Allergy status to other drugs, medicaments and biological substances; Z88.7 Allergy status to serum and vaccine
CPT/HCPCS: 74176; 80047; 80076; 81001; 83690; 85025; 87086; 87631; 96365; 96375; 96376; 99284; J0696; J2270; J2405

== ENCOUNTER 2021-07-29 16:46 | Inpatient (IN) | payer MEDICARE, BC ==
[~2021-07-29] VITALS: Ht 165.1 cm; Wt 80.2 kg
[~2021-07-29 16:46] MED LIST changes: +CEFD300C41 PO
[2021-07-29] MEDS: HYDROMORPHONE HCL 0.5 MG/ 0.5 ML SYRINGE (J1170 PER 1) IV PRN ×2 (18:11→23:23)
[2021-07-29 18:15] LABS: BASO % 0.5 % (0.0-1.0); EOS # 0.1 10^3/uL (0.0-0.5); EOS % 2.6 % (0.0-3.0); HEMATOCRIT 30.1 % (36.0-47.0); HEMOGLOBIN 9.5 g/dl (12.0-15.5); LYMPH # 1.3 10^3/uL (1.5-5.0); LYMPH % 31.7 % (24.0-44.0); MEAN CORPUSCULAR HEMOGLOBIN 30.4 pg (27.0-33.0); MEAN CORPUSCULAR HGB CONC 31.6 g/dl (32.0-36.5); MEAN CORPUSCULAR VOLUME 96.5 fl (80.0-96.0); MONO # 0.3 10^3/uL (0.0-0.8); MONO % 7.2 % (2.0-8.0); NEUTROPHILS # 2.4 10^3/uL (1.5-8.5); NEUTROPHILS % 57.8 % (36.0-66.0); PLATELET COUNT, AUTOMATED 163 10^3/uL (150-450); RED BLOOD COUNT 3.12 10^6/uL (4.00-5.40); WHITE BLOOD COUNT 4.2 10^3/uL (4.0-10.0)
[2021-07-29 19:05] LABS: ALBUMIN 3.1 GM/DL (3.2-5.2); BILIRUBIN,DIRECT 0.2 MG/DL (0.0-0.2); BILIRUBIN,TOTAL 0.4 MG/DL (0.2-1.0); CALCIUM LEVEL 8.6 MG/DL (8.8-10.2); CREATININE FOR GFR 1.18 MG/DL (0.55-1.30); GLOMERULAR FILTRATION RATE 47.3 (>39); POTASSIUM SERUM 4.2 MEQ/L (3.5-5.1); TOTAL PROTEIN 7.1 GM/DL (6.4-8.2)
[2021-07-29 19:16] LABS: RSV AMPLIFICATION NEGATIVE (NEGATIVE)
[2021-07-29] MEDS ORDERED: HOME MED LIST COMPLETE! XX SCH (20:55)
[2021-07-29] MEDS ORDERED: RAMELTEON 8 MG TAB (ROZEREM) PO ONE (21:00)
[2021-07-29] MEDS ORDERED: HYDROMORPHONE HCL 0.5 MG/ 0.5 ML SYRINGE (J1170 PER 1) IV PRN (21:45)
[2021-07-29] MEDS ORDERED: ACETAMINOPHEN TAB 650MG DOSE (2X325MG) PO PRN (21:45)
[2021-07-29] MEDS ORDERED: ONDANSETRON 4MG/2ML VIAL IV PRN (21:45)
[2021-07-29 23:23] LABS: INR 1.06; PROTHROMBIN TIME 14.2 SECONDS (12.7-14.5)
[2021-07-29 23:24] LABS: PARTIAL THROMBOPLASTIN TIME 31.6 SECONDS (25.9-37.0)
[2021-07-30] VITALS (7 sets, daily range): BP systolic 144–158; BP diastolic 68–76; O2SAT 93–94
[2021-07-30] MEDS ORDERED: NS 1,000 ML IV SCH
[2021-07-30 00:11] LABS: CK-MB VALUE MASS 1.1 NG/ML (<3.6); MB/CK RELATIVE INDEX 2.34 (< OR =4)
[2021-07-30] MEDS ORDERED: traZODone 100 MG TAB PO ONE (00:40)
[2021-07-30] MEDS ORDERED: diphenhydrAMINE 50MG CAP PO PRN (02:40)
[2021-07-30] MEDS ORDERED: MIRALAX *UNIT DOSE* 17GM PACKET PO PRN (02:40)
[2021-07-30] MEDS ORDERED: NITROGLYCERIN 0.4 MG SUBL TABLET SL PRN (02:40)
[2021-07-30] MEDS: HYDROMORPHONE HCL 0.5 MG/ 0.5 ML SYRINGE (J1170 PER 1) IV PRN ×6 (02:44→22:08)
[2021-07-30 05:59] LABS: HEMATOCRIT 29.1 % (36.0-47.0); HEMOGLOBIN 9.1 g/dl (12.0-15.5); MEAN CORPUSCULAR HEMOGLOBIN 30.3 pg (27.0-33.0); MEAN CORPUSCULAR HGB CONC 31.3 g/dl (32.0-36.5); PLATELET COUNT, AUTOMATED 144 10^3/uL (150-450); WHITE BLOOD COUNT 3.1 10^3/uL (4.0-10.0)
[2021-07-30 06:19] LABS: CALCIUM LEVEL 8.3 MG/DL (8.8-10.2); CREATININE FOR GFR 1.01 MG/DL (0.55-1.30); GLOMERULAR FILTRATION RATE 56.6 (>39); MAGNESIUM LEVEL 1.8 MG/DL (1.8-2.4); POTASSIUM SERUM 4.1 MEQ/L (3.5-5.1)
[2021-07-30] MEDS ORDERED: cefTRIAXone SOD 1 GM in D5W MINI-BAG PLUS 50 ML IV SCH (09:00)
[2021-07-30] MEDS: LR 1,000 ML IV SCH (09:56)
[2021-07-30] MEDS ORDERED: LIDOCAINE 1% MDV 20ML VIAL As Ordered ONE (12:45)
[2021-07-30] MEDS ORDERED: ISOVUE-300 61% 50ML VIAL As Ordered ONE ×2 (12:45→13:59)
[2021-07-30] MEDS ORDERED: fentaNYL 100 MCG/2 ML INJECTION As Ordered ONE ×2 (12:52→14:28)
[2021-07-30] MEDS ORDERED: MIDAZOLAM INJ 2MG/2ML VIAL (J2250 PER 1MG) As Ordered ONE (12:52)
[2021-07-30] MEDS ORDERED: ceFAZolin 2 GM/D5W 50 ML IV BAG (J0690 PER 500MG) As Ordered ONE (13:44)
[2021-07-30] MEDS ORDERED: propofoL 200 MG/20 ML VIAL As Ordered ONE ×2 (14:17→14:18)
[2021-07-30] MEDS ORDERED: LIDOCAINE 2% 100MG/5ML SDV (FOR ANES.) As Ordered ONE (14:18)
[2021-07-30] MEDS ORDERED: ACETAMINOPHEN 1000MG 100ML IV BTL (OFIRMEV) (J0131 PER 10MG) As Ordered ONE (14:18)
[2021-07-30] MEDS ORDERED: ONDANSETRON 4MG/2ML VIAL As Ordered ONE (14:27)
[2021-07-30] MEDS ORDERED: METOCLOPRAMIDE INJ 10MG/2ML VIAL (J2765 PER 1) As Ordered ONE (14:27)
[2021-07-30] MEDS ORDERED: DEXTROSE 50% 50 ML SYRINGE IV PRN (14:30)
[2021-07-30] MEDS ORDERED: GLUCAGON INJ 1MG VIAL SC PRN (14:30)
[2021-07-30] MEDS ORDERED: GLUCOSE 4GM CHEW TABLET PO PRN (14:30)
[2021-07-30] MEDS ORDERED: LR 1,000 ML IV SCH (14:55)
[2021-07-30] MEDS ORDERED: ONDANSETRON 4MG/2ML VIAL IV PRN (14:55)
[2021-07-30 17:03] LABS: PERCENT SATURATION 31.7 % (13.2-45.0)
[2021-07-30 20:03] LABS: CALCIUM LEVEL 8.6 MG/DL (8.8-10.2); CREATININE FOR GFR 0.99 MG/DL (0.55-1.30); GLOMERULAR FILTRATION RATE 57.9 (>39); POTASSIUM SERUM 4.1 MEQ/L (3.5-5.1)
[2021-07-30] MEDS: METAXALONE 800 MG TABLET PO SCH (20:50)
[2021-07-30] MEDS: PREGABALIN 100 MG CAP (LYRICA) PO SCH (20:50)
[2021-07-30] MEDS: rOPINIRole 1MG TAB PO SCH (20:50)
[2021-07-30] MEDS: traZODone 100 MG TAB PO SCH (20:50)
[2021-07-30] MEDS: PRAVASTATIN 20 MG TAB PO SCH (20:50)
[2021-07-30] MEDS: PANTOPRAZOLE 40MG TAB (PROTONIX) PO SCH (20:50)
[2021-07-30] MEDS ORDERED: ASPIRIN 81MG ENTERIC TABLET PO SCH (21:00)
[2021-07-31] MEDS: LR 1,000 ML IV SCH (01:42)
[2021-07-31] MEDS: HYDROMORPHONE HCL 0.5 MG/ 0.5 ML SYRINGE (J1170 PER 1) IV PRN ×2 (04:19→09:19)
[2021-07-31] MEDS: LEVOTHYROXINE 50MCG TABLET (0.05MG) PO SCH (05:38)
[2021-07-31 06:00] VITALS: BP 156/68
[2021-07-31] MEDS: MEROPENEM INJ 1 GM in IV 1 EA IV SCH ×3 (06:31→21:04)
[2021-07-31 06:53] LABS: HEMATOCRIT 29.2 % (36.0-47.0); HEMOGLOBIN 9.1 g/dl (12.0-15.5); MEAN CORPUSCULAR HEMOGLOBIN 30.4 pg (27.0-33.0); MEAN CORPUSCULAR HGB CONC 31.2 g/dl (32.0-36.5); MEAN CORPUSCULAR VOLUME 97.7 fl (80.0-96.0); PLATELET COUNT, AUTOMATED 140 10^3/uL (150-450); RED BLOOD COUNT 2.99 10^6/uL (4.00-5.40)
[2021-07-31 07:13] LABS: BLOOD UREA NITROGEN 9 MG/DL (7-18); CALCIUM LEVEL 8.9 MG/DL (8.8-10.2); CARBON DIOXIDE LEVEL 24 MEQ/L (21-32); CHLORIDE LEVEL 110 MEQ/L (98-107); CREATININE FOR GFR 0.81 MG/DL (0.55-1.30); GLOMERULAR FILTRATION RATE > 60.0 (>39); GLUCOSE, FASTING 151 MG/DL (70-100); MAGNESIUM LEVEL 1.8 MG/DL (1.8-2.4); POTASSIUM SERUM 3.7 MEQ/L (3.5-5.1); SODIUM LEVEL 141 MEQ/L (136-145)
[2021-07-31] MEDS: METAXALONE 800 MG TABLET PO SCH ×3 (09:15→21:09)
[2021-07-31] MEDS: PREGABALIN 100 MG CAP (LYRICA) PO SCH ×3 (09:15→21:06)
[2021-07-31] MEDS: METOPROLOL SUCC *XL* 25MG TAB (TopROL *XL*) PO SCH (09:16)
[2021-07-31] MEDS: rOPINIRole 1MG TAB PO SCH ×2 (09:17→21:06)
[2021-07-31] MEDS: ACETAMINOPHEN TAB 650MG DOSE (2X325MG) PO SCH ×4 (10:18→21:06)
[2021-07-31 10:48] LABS: CK-MB VALUE MASS 1.2 NG/ML (<3.6); MB/CK RELATIVE INDEX 1.43 (< OR =4)
[2021-07-31] MEDS ORDERED: VARIBAR PUDDING 40% w/v 230ML TUBE As Ordered ONE (11:13)
[2021-07-31] MEDS ORDERED: VARIBAR NECTAR 40% w/v 240ML SUSP BTL As Ordered ONE (11:13)
[2021-07-31] MEDS ORDERED: E-Z-PAQUE 96% w/w SUSP 176GM BTL As Ordered ONE (11:13)
[2021-07-31] MEDS ORDERED: BARIUM SULFATE 700 MG TABLET (E-Z-DISK) As Ordered ONE (11:13)
[2021-07-31] MEDS: ASPIRIN 81MG ENTERIC TABLET PO SCH (13:28)
[2021-07-31 14:00] VITALS: BP 154/69
[2021-07-31] MEDS ORDERED: oxyCODONE 10 MG CR TAB PO SCH (21:00)
[2021-07-31] MEDS: oxyCODONE 15 MG CR TAB PO SCH (21:06)
[2021-07-31] MEDS: PANTOPRAZOLE 40MG TAB (PROTONIX) PO SCH (21:06)
[2021-07-31] MEDS: PRAVASTATIN 20 MG TAB PO SCH (21:07)
[2021-07-31] MEDS: traZODone 100 MG TAB PO SCH (21:07)
[2021-07-31 22:00] VITALS: BP 138/47
[2021-08-01] MEDS: ACETAMINOPHEN TAB 650MG DOSE (2X325MG) PO SCH ×4 (01:24→13:32)
[2021-08-01] MEDS: LEVOTHYROXINE 50MCG TABLET (0.05MG) PO SCH (05:40)
[2021-08-01] MEDS: MEROPENEM INJ 1 GM in IV 1 EA IV SCH ×3 (05:41→21:13)
[2021-08-01 06:00] VITALS: BP 135/51
[2021-08-01 06:31] LABS: HEMATOCRIT 27.5 % (36.0-47.0); HEMOGLOBIN 8.8 g/dl (12.0-15.5); MEAN CORPUSCULAR HEMOGLOBIN 30.3 pg (27.0-33.0); MEAN CORPUSCULAR VOLUME 94.8 fl (80.0-96.0); PLATELET COUNT, AUTOMATED 146 10^3/uL (150-450); WHITE BLOOD COUNT 4.1 10^3/uL (4.0-10.0)
[2021-08-01 06:46] LABS: BLOOD UREA NITROGEN 9 MG/DL (7-18); CALCIUM LEVEL 8.6 MG/DL (8.8-10.2); CARBON DIOXIDE LEVEL 27 MEQ/L (21-32); CHLORIDE LEVEL 109 MEQ/L (98-107); CREATININE FOR GFR 0.82 MG/DL (0.55-1.30); GLOMERULAR FILTRATION RATE > 60.0 (>39); GLUCOSE, FASTING 106 MG/DL (70-100); MAGNESIUM LEVEL 1.9 MG/DL (1.8-2.4); POTASSIUM SERUM 3.7 MEQ/L (3.5-5.1); SODIUM LEVEL 140 MEQ/L (136-145)
[2021-08-01] MEDS ORDERED: DARBEPOETIN 100 MCG/0.5 ML *NON-DIALYSIS* SYRINGE (J0881) SC SCH (09:00)
[2021-08-01] MEDS: MULTIVITAMINS/MINERALS THERAP 1 TAB PO SCH (09:00)
[2021-08-01] MEDS: rOPINIRole 1MG TAB PO SCH ×2 (09:41→21:13)
[2021-08-01] MEDS: ASPIRIN 81MG ENTERIC TABLET PO SCH (09:42)
[2021-08-01] MEDS: METOPROLOL SUCC *XL* 25MG TAB (TopROL *XL*) PO SCH (09:42)
[2021-08-01] MEDS: METAXALONE 800 MG TABLET PO SCH ×3 (09:42→21:13)
[2021-08-01] MEDS: PREGABALIN 100 MG CAP (LYRICA) PO SCH ×3 (09:42→21:13)
[2021-08-01] MEDS: oxyCODONE 15 MG CR TAB PO SCH ×2 (09:47→21:14)
[2021-08-01 14:00] VITALS: BP 135/56
[2021-08-01] MEDS ORDERED: ACETAMINOPHEN TAB 650MG DOSE (2X325MG) PO PRN (15:00)
[2021-08-01] MEDS: traZODone 100 MG TAB PO SCH (21:13)
[2021-08-01] MEDS: PRAVASTATIN 20 MG TAB PO SCH (21:13)
[2021-08-01] MEDS: PANTOPRAZOLE 40MG TAB (PROTONIX) PO SCH (21:13)
[2021-08-01 22:00] VITALS: BP 121/48
[2021-08-02] MEDS: MEROPENEM INJ 1 GM in IV 1 EA IV SCH ×3 (05:56→21:30)
[2021-08-02] MEDS: LEVOTHYROXINE 50MCG TABLET (0.05MG) PO SCH (05:56)
[2021-08-02 06:00] VITALS: BP 135/58
[2021-08-02 06:32] LABS: HEMATOCRIT 27.4 % (36.0-47.0); HEMOGLOBIN 8.8 g/dl (12.0-15.5); MEAN CORPUSCULAR HGB CONC 32.1 g/dl (32.0-36.5); MEAN CORPUSCULAR VOLUME 96.5 fl (80.0-96.0); PLATELET COUNT, AUTOMATED 144 10^3/uL (150-450); RED BLOOD COUNT 2.84 10^6/uL (4.00-5.40); WHITE BLOOD COUNT 2.8 10^3/uL (4.0-10.0)
[2021-08-02 06:52] LABS: CALCIUM LEVEL 8.4 MG/DL (8.8-10.2); CREATININE FOR GFR 0.97 MG/DL (0.55-1.30); GLOMERULAR FILTRATION RATE 59.3 (>39); MAGNESIUM LEVEL 1.9 MG/DL (1.8-2.4); POTASSIUM SERUM 3.6 MEQ/L (3.5-5.1)
[2021-08-02] MEDS: PREGABALIN 100 MG CAP (LYRICA) PO SCH ×3 (09:06→21:28)
[2021-08-02] MEDS: MULTIVITAMINS/MINERALS THERAP 1 TAB PO SCH (09:06)
[2021-08-02] MEDS: rOPINIRole 1MG TAB PO SCH ×2 (09:06→21:28)
[2021-08-02] MEDS: METAXALONE 800 MG TABLET PO SCH ×3 (09:06→21:29)
[2021-08-02] MEDS: METOPROLOL SUCC *XL* 25MG TAB (TopROL *XL*) PO SCH (09:06)
[2021-08-02] MEDS: ASPIRIN 81MG ENTERIC TABLET PO SCH (09:06)
[2021-08-02] MEDS: oxyCODONE 15 MG CR TAB PO SCH ×2 (09:07→21:30)
[2021-08-02 14:00] VITALS: BP 145/65
[2021-08-02] MEDS: PRAVASTATIN 20 MG TAB PO SCH (21:28)
[2021-08-02] MEDS: traZODone 100 MG TAB PO SCH (21:28)
[2021-08-02] MEDS: PANTOPRAZOLE 40MG TAB (PROTONIX) PO SCH (21:29)
[2021-08-02 21:31] VITALS: BP 136/59
[2021-08-03 05:26] VITALS: BP 134/61
[2021-08-03 06:19] LABS: HEMATOCRIT 27.8 % (36.0-47.0); MEAN CORPUSCULAR HEMOGLOBIN 30.9 pg (27.0-33.0); MEAN CORPUSCULAR HGB CONC 32.4 g/dl (32.0-36.5); MEAN CORPUSCULAR VOLUME 95.5 fl (80.0-96.0); PLATELET COUNT, AUTOMATED 152 10^3/uL (150-450); RED BLOOD COUNT 2.91 10^6/uL (4.00-5.40); WHITE BLOOD COUNT 3.8 10^3/uL (4.0-10.0)
[2021-08-03 06:52] LABS: BLOOD UREA NITROGEN 11 MG/DL (7-18); CALCIUM LEVEL 8.7 MG/DL (8.8-10.2); CARBON DIOXIDE LEVEL 28 MEQ/L (21-32); CHLORIDE LEVEL 107 MEQ/L (98-107); CREATININE FOR GFR 0.84 MG/DL (0.55-1.30); GLOMERULAR FILTRATION RATE > 60.0 (>39); GLUCOSE, FASTING 107 MG/DL (70-100); MAGNESIUM LEVEL 1.9 MG/DL (1.8-2.4); POTASSIUM SERUM 3.8 MEQ/L (3.5-5.1); SODIUM LEVEL 139 MEQ/L (136-145)
[2021-08-03] MEDS: LEVOTHYROXINE 50MCG TABLET (0.05MG) PO SCH (06:55)
[2021-08-03] MEDS: MEROPENEM INJ 1 GM in IV 1 EA IV SCH (06:56)
[2021-08-03] MEDS: ASPIRIN 81MG ENTERIC TABLET PO SCH (09:08)
[2021-08-03] MEDS: PREGABALIN 100 MG CAP (LYRICA) PO SCH (09:08)
[2021-08-03] MEDS: METAXALONE 800 MG TABLET PO SCH (09:10)
[2021-08-03] MEDS: MULTIVITAMINS/MINERALS THERAP 1 TAB PO SCH (09:13)
[2021-08-03] MEDS: rOPINIRole 1MG TAB PO SCH (09:13)
[2021-08-03] MEDS: oxyCODONE 15 MG CR TAB PO SCH (09:13)
[2021-08-03 09:15] VITALS: BP 145/65
[2021-08-03] MEDS: METOPROLOL SUCC *XL* 25MG TAB (TopROL *XL*) PO SCH (09:15)
[2021-08-03] MEDS ORDERED: FOSFOMYCIN TROMETHAMINE 3 GM POWDER PACKET (MONUROL) PO ONE (11:00)
[2021-08-03] MEDS ORDERED: FOSF3PAC2 PO (12:21)
[2021-08-03] MEDS ORDERED: NITR-67 PO (15:54)
== END 2021-08-03 16:30 | disposition home health service (06) | DRG 690 ==
LOC: M ED 16:46 → M ED INP 21:41 → ENRESERV 23:13 → M MSPAV 07-30 00:13
PROVIDERS: ADMIT Family Medicine; ATTEND Family Medicine
PROC: 0T9030Z Drainage of Right Kidney with Drainage Device, Percutaneous Approach (ICD-10-PCS; principal; 2021-07-30 14:30)
DX: N13.6 Pyonephrosis (principal); I48.0 Paroxysmal atrial fibrillation; E11.22 Type 2 diabetes mellitus with diabetic chronic kidney disease; N18.30 Chronic kidney disease, stage 3 unspecified; K74.60 Unspecified cirrhosis of liver; G25.81 Restless legs syndrome; D63.1 Anemia in chronic kidney disease; K21.9 Gastro-esophageal reflux disease without esophagitis; E03.9 Hypothyroidism, unspecified; R13.10 Dysphagia, unspecified; N39.0 Urinary tract infection, site not specified; B96.29 Other Escherichia coli [E. coli] as the cause of diseases classified elsewhere; G47.33 Obstructive sleep apnea (adult) (pediatric); I12.9 Hypertensive chronic kidney disease with stage 1 through stage 4 chronic kidney disease, or unspecified chronic kidney disease; Z95.0 Presence of cardiac pacemaker; Z79.899 Other long term (current) drug therapy; Z79.82 Long term (current) use of aspirin; Z88.8 Allergy status to other drugs, medicaments and biological substances; Z88.7 Allergy status to serum and vaccine

== ENCOUNTER 2021-08-17 05:03 | Inpatient (IN) | payer MEDICARE, BC ==
[~2021-08-17] VITALS: Ht 165.1 cm; Wt 87.5 kg
[~2021-08-17 05:03] MED LIST changes: +CEFD1CAP8 PO; -CEFD300C41 PO; +FLUC200T2; -FLUC200T4; +FOSF3PAC2 PO; +LEVO250T12 PO; -LEVO250T3 PO; +LEVO500T3 PO; -LEVO500T4 PO; +NITR-67 PO
[2021-08-17] MEDS ORDERED: MORPHINE 4 MG/ML 1ML VIAL/SYRINGE (J2270) IV ONE (05:30)
[2021-08-17] MEDS ORDERED: ONDANSETRON 4MG/2ML VIAL IV ONE (05:30)
[2021-08-17 05:46] LABS: BASO % 0.4 % (0.0-1.0); EOS # 0.1 10^3/uL (0.0-0.5); EOS % 0.9 % (0.0-3.0); HEMATOCRIT 31.9 % (36.0-47.0); LYMPH # 1.2 10^3/uL (1.5-5.0); LYMPH % 21.8 % (24.0-44.0); MEAN CORPUSCULAR HGB CONC 31.3 g/dl (32.0-36.5); MEAN CORPUSCULAR VOLUME 98.8 fl (80.0-96.0); MONO # 0.4 10^3/uL (0.0-0.8); NEUTROPHILS # 3.8 10^3/uL (1.5-8.5); NEUTROPHILS % 68.5 % (36.0-66.0); PLATELET COUNT, AUTOMATED 144 10^3/uL (150-450); RED BLOOD COUNT 3.23 10^6/uL (4.00-5.40); WHITE BLOOD COUNT 5.5 10^3/uL (4.0-10.0)
[2021-08-17 06:20] LABS: ALBUMIN 3.2 GM/DL (3.2-5.2); BILIRUBIN,DIRECT 0.2 MG/DL (0.0-0.2); BILIRUBIN,TOTAL 0.3 MG/DL (0.2-1.0); CALCIUM LEVEL 8.1 MG/DL (8.8-10.2); CREATININE FOR GFR 1.15 MG/DL (0.55-1.30); GLOMERULAR FILTRATION RATE 48.7 (>39); POTASSIUM SERUM 4.3 MEQ/L (3.5-5.1); TOTAL PROTEIN 6.3 GM/DL (6.4-8.2)
--- NOTE | 2021-08-17 06:44 | REPVR ---
PROCEDURE INFORMATION: Exam: CT Abdomen And Pelvis Without Contrast Exam date and time: 08/17/2021 5:57 AM Age: 76 years old Clinical indication: Abdominal pain; Additional info: Abdominal distention, decreased ostomy, nausea TECHNIQUE: Imaging protocol: Computed tomography of the abdomen and pelvis without contrast. Radiation optimization: All CT scans at this facility use at least one of these dose optimization techniques: automated exposure control; mA and/or kV adjustment per patient size (includes targeted exams where dose is matched to clinical indication); or iterative reconstruction. COMPARISON: CT ABD PELVIS W/O CONTRAST 07/29/2021 6:19 PM FINDINGS: Tubes, catheters and devices: Pacemaker leads in the right cardiac chambers. Right percutaneous nephrostomy tube in place. Lungs: Bibasilar dependent and linear atelectasis. Heart: Atherosclerotic disease of coronary arteries. Liver: Mild hepatomegaly. Gallbladder and bile ducts: Status post cholecystectomy. Mild intra and extrahepatic biliary ductal dilatation to the level of the ampulla. No obstructive choledocholithiasis. Pancreas: Normal. No ductal dilation. Spleen: Mild splenomegaly. 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 Kidneys and ureters: Right lower quadrant ileal conduit. Worsening left hydroureteronephrosis to the level conduit. There is bilateral renal cortical atrophy and scarring. Extensive bilateral perinephric stranding. Stomach and bowel: Status post left colectomy and diverting left flank colostomy. Evidence of partial small bowel resection. No obstruction. Appendix: No evidence of appendicitis. Intraperitoneal space: Trace ascites. Vasculature: Atherosclerotic disease abdominal aorta. Lymph nodes: Unremarkable. No enlarged lymph nodes. Urinary bladder: Unremarkable as visualized. Reproductive: Diastasis ventral abdominal wall status post hysterectomy. Bones/joints: Osteopenia. Multilevel degenerative disease facet arthropathy of the thoracolumbar spine. Stenosis of the spinal canal foramina several levels. 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 Soft tissues: Suggestion a shallow sacral decubitus ulcer. IMPRESSION: 1. Worsening left hydroureteronephrosis the level right lower quadrant ileal conduit. 2. Status post left colectomy and diverting left flank colostomy. Status post partial small bowel resection. No obstruction. 3. Mild hepatosplenomegaly. COMMENTS: Consistent with the [employer]'s Incidental Findings Committee white paper (J Am Unique Radiol 2017): For any incidental adrenal lesion greater than 1 cm but less than 4 cm classified in this report as benign, likely benign, or containing fat (including classification as an adenoma or myelolipoma), no follow-up imaging is recommended per consensus recommendations based on imaging criteria. Further lab evaluation could be pursued if warranted based on clinical findings. Electronically signed by: Kevin Srinivasan On 08/17/2021 06:44:15 AM
[2021-08-17] MEDS ORDERED: ERTAPENEM SODIUM 1 GM in NS MINI-BAG PLUS 50 ML IV ONE (07:10)
[2021-08-17] MEDS ORDERED: VANCOMYCIN HCL 1,000 MG, VIAL MATE ADAPTER 1 EACH in NS 250 ML IV ONE (07:10)
[2021-08-17] MEDS: HYDROMORPHONE HCL 0.5 MG/ 0.5 ML SYRINGE (J1170 PER 1) IV PRN ×4 (07:47→14:22)
[2021-08-17 08:08] LABS: RSV AMPLIFICATION NEGATIVE (NEGATIVE)
[2021-08-17] MEDS ORDERED: NS 1,000 ML IV SCH (11:50)
[2021-08-17] MEDS ORDERED: ONDANSETRON 4MG/2ML VIAL IV PRN ×2 (14:40→18:25)
--- NOTE | 2021-08-17 14:42 | HPEPDOC ---
General Date of Admission 08/17/21 Date of Service: Aug 17, 2021 Chief Complaint The patient is a 76-year-old female admitted with a reason for visit of Flank Pain. History of Present Illness 76-year-old female with history of cystectomy for neurogenic bladder and creation of ileal conduit with stricture of ureteroureteral loop and bilateral ureters failed ureteral stents, with history of bilateral hydroureteronephrosis, right nephrostomy tube in May 2021, chronic obstructive uropathy from the above, CKD stage III, chronic abdominal pain and chronic opiate use, left colectomy and colostomy placement, partial small bowel obstruction, and multiple other medical problems as below presented to the emergency room with left-sided flank pain for 1 day. She rated the pain as 7/10 in intensity constant dull aching in nature located at the left lumbar region and radiating down to the left iliac fossa as well as the left costovertebral angle. She had a CT abdomen and pelvis done in the emergency room and which showed worsening of left-sided hydroureteronephrosis compared to prior CT scan on 07/29/2021. Patient also reported that there was no urine output in the urostomy bag for the past 3 days even with recurrent flushings. She noted that the urine and started coming in the urostomy bag from this morning. Patient admitted for worsening obstructive uropathy with worsening left-sided hydro ureteronephrosis. Patient will be getting left-sided nephrostomy tube placed by IR today. Home Medications Scheduled Amlodipine Besylate (Amlodipine Besylate) 10 Mg Tablet, 10 MG PO QHS, (Reported) Aspirin (Aspirin EC) 81 Mg Tabec, 81 MG PO QHS, (Reported) Ferrous Sulfate (Ferrous Sulfate) 324 Mg Tablet.dr, 324 MG PO DAILY, (Reported) Levothyroxine Sodium (Levothyroxine Sodium) 50 Mcg Tab, 50 MCG PO DAILY, (Reported) Lisinopril (Lisinopril) 20 Mg Tablet, 20 MG PO DAILY, (Reported) Melatonin (Melatonin) 10 Mg Capsule, 20 MG PO QHS, (Reported) Metaxalone (Skelaxin) 800 Mg Tab, 800 MG PO TID, (Reported) Metoprolol Succinate (Metoprolol Succinate) 25 Mg Tab.er.24h, 25 MG PO DAILY, (Reported) Nitrofurantoin Macrocrystal (Nitrofurantoin) 100 Mg Capsule, 100 MG PO QID Oxycodone HCl (Oxycodone HCl ER) 20 Mg Tab, 20 MG PO BID, (Reported) TAKES AT 0900 and 2300 Oxycodone HCl (Oxycontin) 10 Mg Tab.er.12h, 10 MG PO BID for pain, (Reported) Pantoprazole Sodium (Pantoprazole Sodium) 40 Mg Tablet.dr, 40 MG PO QHS, (Reported) Pravastatin Sodium (Pravastatin Sodium) 20 Mg Tab, 20 MG PO DAILY, (Reported) Pregabalin (Lyrica) 100 Mg Cap, 100 MG PO TID, (Reported) Ropinirole HCl (Ropinirole HCl) 1 Mg Tablet, 1 MG PO BID, (Reported) TAKE AT 1600 & 2300 Trazodone HCl (Trazodone HCl) 100 Mg Tablet, 100 MG PO QHS, (Reported) Scheduled PRN Diphenhydramine HCl (Diphenhydramine HCl) 25 Mg Capsule, 50 MG PO QHS PRN for SLEEP, (Reported) Docusate Sodium (Colace) 100 Mg Capsule, 100 MG PO ONCE PRN for CONSTIPATION, (Reported) Nitroglycerin (Nitroglycerin) 0.4 Mg Sub, 0.4 MG SL NITRO PRN for CHEST PAIN, (Reported) Polyethylene Glycol 3350 (Miralax) 119 Gm Powder, 17 GM PO Q2D PRN for CONSTIPATION, (Reported) Allergies Coded Allergies: pneumococcal vaccine (Verified Allergy, Intermediate, hives, 08/17/21) influenza virus vacc trivalent, spl (Verified Adverse Reaction, Severe, coma, 08/17/21) influenza virus vaccine tv 2012-14(18-49 yrs),rcmb (Verified Adverse Rupal ction, Severe, flu vaccine - coma, 08/17/21) Corticosteroids (Glucocorticoids) (Verified Adverse Reaction, Mild, weakness, 08/17/21) TAPE (Verified Adverse Reaction, Mild, BLISTERS, 08/17/21) clonidine (Verified Adverse Reaction, Mild, faint, 08/17/21) quinapril (Verified Adverse Reaction, Mild, passed out, 08/17/21) zolpidem (Verified Adverse Reaction, Mild, sleep walking, 08/17/21) Past Medical History Medical History History of ileal conduit for neurogenic bladder and recurrent cystocele from nerve damage from back surgery 1997 Chronic obstructive uropathy with bilateral hydro ureteronephrosis due to uretero-ureteral loop stricture and bilateral ureteral stricture had bilateral nephrostomy tubes about 3-4 years ago then had nephro ureteral stents which fell off. Did not have any stents or nephrostomy tubes for about a year. Right nephrostomy tube for increasing right-sided hydronephrosis in May 2021 History of left colectomy with diverting colostomy in 1997 for recurrent rectocele from nerve damage after back surgery History of partial small bowel resection History of recurrent bowel obstructions and multiple intra-abdominal surgeries for lysis of adhesions. History of sinus node dysfunction with severe sinus bradycardia and tachycardia status post pacemaker placement in October 2019 CKD stage III Chronic anemia Chronic abdominal pain with opiod dependence Diabetes RLS Hypothyroid RUTHANN on CPAP Hypertension GERD Adrenal adenoma Fibromyalgia Cirrhosis of liver with Splenomegaly as seen in CT no clinical symptoms. Chronic dysphagia ESBL E. coli urine infection in 07/29/2021 Surgical History 4 back surgeries in 1970s for herniated discs. Multiple surgeries for uterine prolapse, cystocele, rectocele, sling operation and suspension procedures in . Neurogenic bladder with cystocele due to nerve damage from back surgery status post and ileal conduit creation in 1997, patient reports she still has bladder which has shrivelled up. Left sided colon resection with colostomy in 1997 for recurrent rectocele from nerve damage from back surgery. Cholecystectomy. Hysterectomy. Several abdominal surgeries for adhesions. Carpal tunnel release. Nephroureteral stent placement Pacemaker placement October 2019 Right nephrostomy tube placement in May 2021 Bilateral upper lid blepharoplasty in 2012 Excision of benign lesion on the floor of the mouth with flap reconstruction in 2018 Family History Significant Family History: Diabetes, Heart disease Mother history of CHF and diabetes Father diabetes Social History * Smoker: Denies Alcohol: Denies Drugs: denies Review of Systems Constitutional: Denies: Chills, Fever, Night Sweats Eyes: Denies: Pain, Vision change ENT: Denies: Head Aches, Ear Pain, Dysphagia Skin: Denies: Rash, Lesions, Breakdown Pulmonary: Denies: Dyspnea, Cough Cardiovascular: Denies: Chest Pain, Palpitations, Orthopnea, Paroxysmal Noc. Dyspnea, Lt Headedness Gastrointestinal: Reports: Abdominal Pain; Denies: Nausea, Vomiting, Diarrhea, Constipation Genitourinary: Reports: Retention; Denies: Dysuria, Frequency, Incontinence Hematologic: Denies: Bruising, Bleeding Excessively Musculoskeletal: Reports: Back Pain, Joint Pain Psych: Reports: Depression Physical Examination General Exam: Positive: Alert, Cooperative, Mild Distress, Other (Patient is rocking in the bed constantly which she says is for her pain) Eye Exam: Positive: Conjunctiva & lids normal, EOMI; Negative: Sclera icteric ENT Exam: Positive: Atraumatic, Mucous membr. moist/pink, Pharynx Normal Neck Exam: Positive: Supple; Negative: JVD, thyromegaly Chest Exam: Positive: Clear to auscultation, Normal air movement Heart Exam: Positive: Rate Normal, Regular Rhythm, Normal S1, Normal S2; Negative: Murmurs, Rubs Abdomen Exam: Positive: Normal bowel sounds, Soft, Tenderness (Maximum located in the left lumbar region and left iliac fossa and left CVA region, has milder pain in all over the abdomen.), Other (Scars from multiple abdominal surgeries.); Negative: Hepatospenomegaly Extremity Exam: Negative: Clubbing, Cyanosis, Edema Skin Exam: Positive: Nl turgor and temperature; Negative: Breakdown, Lesion Psych Exam: Positive: Memory Intact, Oriented x 3 Vital Signs Vital Signs Date Time Temp Pulse Resp B/P (MAP) Pulse Ox O2 Delivery O2 Flow Rate FiO2 08/17/21 12:27 18 98 Room Air 08/17/21 12:15 88 118/55 (76) 08/17/21 11:30 98.3 Laboratory Data Labs 24H Laboratory Tests 2 08/17/21 05:15: Immature Granulocyte % (Auto) 0.4, Neutrophils (%) (Auto) 68.5H, Lymphocytes (%) (Auto) 21.8L, Monocytes (%) (Auto) 8.0, Eosinophils (%) (Auto) 0.9, Basophils (%) (Auto) 0.4, Neutrophils # (Auto) 3.8, Lymphocytes # (Auto) 1.2L, Monocytes # (Auto) 0.4, Eosinophils # (Auto) 0.1, Basophils # (Auto) 0.0, Nucleated Red Blood Cells % (auto) 0.0, Urine Color YELLOW, Urine Appearance CLOUDYH, Urine pH 5.0, Urine Specific [place] 1.018, Urine Protein 2+H, Urine Glucose (UA) NEGATIVE, Urine Ketones NEGATIVE, Urine Blood 1+H, Urine Nitrite POSITIVEH, Urine Bilirubin NEGATIVE, Urine Urobilinogen 0.2, Urine Leukocyte Esterase 3+H, Urine WBC (Auto) 119H, Urine RBC (Auto) 7H, Urine Hyaline Casts (Auto) 0, Urine Bacteria (Auto) 1+H, Urine Squamous Epithelial Cells 0, Urine Mucus (Auto) SMALL, Urine Sperm (Auto) , Anion Gap 6L, Glomerular Filtration Rate 48.7, Lactic Acid Level 1.1, Calcium Level 8.1L, Total Bilirubin 0.3, Direct Bilirubin 0.2, Aspartate Amino Transf (AST/SGOT) 13, Alanine Aminotransferase (ALT/SGPT) 18, Alkaline Phosphatase 96, EA-[place]-T-Type Natriuretic Peptide 289, Total Protein 6.3L, Albumin 3.2, Albumin/Globulin Ratio 1.0L, Amylase Level 57, Lipase 119 08/17/21 07:22: Coronavirus (COVID-19)(PCR) NEGATIVE, Influenza Type A (RT-PCR) NEGATIVE, Influenza Type B (RT-PCR) NEGATIVE, Respiratory Syncytial Virus (PCR) NEGATIVE CBC/BMP Laboratory Tests 08/17/21 05:15 Microbiology Microbiology 08/17/21 Blood Culture, Received Pending 08/17/21 Blood Culture, Received Pending 08/17/21 Urine Culture, Received Pending Assessment/Plan 76-year-old female with history of cystectomy for neurogenic bladder and creation of ileal conduit with stricture of ureteroureteral loop and bilateral ureters failed ureteral stents, with history of bilateral hydroureteronephrosis, right nephrostomy tube in May 2021, chronic obstructive uropathy from the above, CKD stage III, chronic abdominal pain and chronic opiate use, left colectomy and colostomy placement, partial small bowel obstruction, and multiple other medical problems as below presented to the emergency room with left-sided flank pain for 1 day. She rated the pain as 7/10 in intensity constant dull aching in nature located at the left lumbar region and radiating down to the left iliac fossa as well as the left costovertebral angle. She had a CT abdomen and pelvis done in the emergency room and which showed worsening of left-sided hydroureteronephrosis compared to prior CT scan on 07/29/2021. Patient also reported that there was no urine output in the urostomy bag for the past 3 days even with recurrent flushings. She noted that the urine and started coming in the urostomy bag from this morning. Patient admitted for worsening obstructive uropathy with worsening left-sided hydro ureteronephrosis. Patient will be getting left-sided nephrostomy tube placed by IR today. Left-sided increasing hydroureteronephrosis Planned for left-sided nephrostomy tube placement by IR. We will keep n.p.o. for now Pain control with IV morphine Continue IV fluid Possible UTI versus chronic colonization Urine was collected from urostomy bag. Patient's UA is very dirty Last urine culture showed ESBL E. coli and Enterococcus faecalis Right-sided hydroureteronephrosis Has right-sided nephrostomy tube in place which is functioning well History of neurogenic bladder with recurrent cystocele status post ileal conduit creation. Patient reports that she still has the bladder. Has urostomy bag in place which is working well History of neurogenic colon with recurrent rectocele Status post left colectomy and creation of diverting colostomy Hypertension We will continue home medications Hypothyroid We will continue Synthroid Chronic obstructive uropathy with CKD stage III Creatinine seems to be at baseline we will continue to monitor Restless leg syndrome We will continue home meds Chronic abdominal pain/back pain Patient is dependent on opiate We will resume home opiate dose after IR procedure is done. Obesity/RUTHANN May use own CPAP machine Plan / VTE VTE Prophylaxis Ordered?: Yes Yessi Martinez MD Aug 17, 2021 13:18
[2021-08-17] MEDS ORDERED: OXYC10TA12 PO (14:53)
[2021-08-17] MEDS ORDERED: HOME MED LIST COMPLETE! XX SCH (14:55)
[2021-08-17] MEDS ORDERED: LIDOCAINE 1% MDV 20ML VIAL As Ordered ONE (16:17)
[2021-08-17] MEDS ORDERED: ISOVUE-300 61% 50ML VIAL As Ordered ONE (16:18)
[2021-08-17] MEDS ORDERED: KETOROLAC 30 MG/ML 1ML VIAL IV ONE (16:30)
[2021-08-17] MEDS ORDERED: KETOROLAC 30 MG/ML 1ML VIAL As Ordered ONE (16:36)
[2021-08-17] MEDS ORDERED: MIDAZOLAM INJ 2MG/2ML VIAL (J2250 PER 1MG) As Ordered ONE (17:34)
[2021-08-17] MEDS ORDERED: propofoL 200 MG/20 ML VIAL As Ordered ONE (17:34)
[2021-08-17] MEDS ORDERED: ETOMIDATE INJ 20MG/10ML VIAL As Ordered ONE (17:34)
[2021-08-17] MEDS ORDERED: fentaNYL 100 MCG/2 ML INJECTION (J3010) As Ordered ONE (17:34)
[2021-08-17 18:33] VITALS: BP 147/68
[2021-08-17] MEDS: MORPHINE 4 MG/ML 1ML VIAL/SYRINGE (J2270) IV PRN (18:45)
[2021-08-17] MEDS ORDERED: diphenhydrAMINE 25MG CAP PO PRN (19:20)
[2021-08-17] MEDS ORDERED: ACETAMINOPHEN 500 MG TAB PO PRN (19:25)
[2021-08-17] MEDS: NS 1,000 ML IV SCH (20:20)
[2021-08-17 20:47] VITALS: BP 121/44
[2021-08-17] MEDS: ASPIRIN 81MG ENTERIC TABLET PO SCH (21:34)
[2021-08-17] MEDS: PREGABALIN 100 MG CAP (LYRICA) PO SCH (21:34)
[2021-08-17] MEDS: METAXALONE 800 MG TABLET PO SCH (21:34)
[2021-08-17] MEDS: oxyCODONE 5MG TAB PO PRN (21:36)
[2021-08-17] MEDS: PANTOPRAZOLE 40MG TAB (PROTONIX) PO SCH (21:36)
[2021-08-17] MEDS: VANCOMYCIN HCL 1,000 MG, VIAL MATE ADAPTER 1 EACH in NS 250 ML IV SCH (21:36)
[2021-08-17] MEDS: rOPINIRole 1MG TAB PO SCH (22:45)
[2021-08-17] MEDS: oxyCODONE 10 MG CR TAB PO SCH (22:45)
[2021-08-18] MEDS: MORPHINE 4 MG/ML 1ML VIAL/SYRINGE (J2270) IV PRN ×5 (00:28→22:19)
--- NOTE | 2021-08-18 00:48 | ECGEPIP ---
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
[2021-08-18 06:30] VITALS: BP 102/78
[2021-08-18] MEDS: LEVOTHYROXINE 50MCG TABLET (0.05MG) PO SCH (06:32)
[2021-08-18] MEDS: NS 1,000 ML IV SCH ×2 (06:33→17:27)
[2021-08-18 08:48] LABS: BASO % 0.2 % (0.0-1.0); EOS # 0.1 10^3/uL (0.0-0.5); EOS % 1.5 % (0.0-3.0); HEMATOCRIT 26.5 % (36.0-47.0); HEMOGLOBIN 8.2 g/dl (12.0-15.5); LYMPH # 1.2 10^3/uL (1.5-5.0); LYMPH % 22.8 % (24.0-44.0); MEAN CORPUSCULAR HEMOGLOBIN 31.3 pg (27.0-33.0); MEAN CORPUSCULAR HGB CONC 30.9 g/dl (32.0-36.5); MEAN CORPUSCULAR VOLUME 101.1 fl (80.0-96.0); MONO # 0.5 10^3/uL (0.0-0.8); MONO % 9.4 % (2.0-8.0); NEUTROPHILS # 3.5 10^3/uL (1.5-8.5); NEUTROPHILS % 65.7 % (36.0-66.0); PLATELET COUNT, AUTOMATED 100 10^3/uL (150-450); RED BLOOD COUNT 2.62 10^6/uL (4.00-5.40); WHITE BLOOD COUNT 5.3 10^3/uL (4.0-10.0)
[2021-08-18] MEDS: ERTAPENEM SODIUM 1 GM in NS MINI-BAG PLUS 50 ML IV SCH (09:08)
[2021-08-18 09:12] LABS: CALCIUM LEVEL 7.7 MG/DL (8.8-10.2); CREATININE FOR GFR 1.23 MG/DL (0.55-1.30); GLOMERULAR FILTRATION RATE 45.1 (>39); POTASSIUM SERUM 4.4 MEQ/L (3.5-5.1)
[2021-08-18] MEDS: PRAVASTATIN 20 MG TAB PO SCH (09:12)
[2021-08-18] MEDS: METOPROLOL SUCC *XL* 25MG TAB (TopROL *XL*) PO SCH (09:12)
[2021-08-18] MEDS: METAXALONE 800 MG TABLET PO SCH ×3 (09:12→20:54)
[2021-08-18] MEDS: PREGABALIN 100 MG CAP (LYRICA) PO SCH ×3 (09:12→20:54)
[2021-08-18] MEDS: oxyCODONE 10 MG CR TAB PO SCH ×2 (09:13→22:18)
[2021-08-18] MEDS: VANCOMYCIN HCL 1,000 MG, VIAL MATE ADAPTER 1 EACH in NS 250 ML IV SCH ×2 (10:03→20:55)
--- NOTE | 2021-08-18 10:47 | IPNPDOC ---
Text Note Date of Service The patient was seen on 08/18/21. NOTE Subjective: 76-year-old female presented to the emergency room department with left-sided flank pain for [address] scan noted worsening left hydroureteronephrosis at the level of the right lower quadrant ileal conduit. She had nephrostomy tubes placed on 08/17. Patient seen and examined at bedside this morning. She is complaining of her chronic back pain and discomfort around the nephrostomy tube site. She was moving her legs, which she said is chronic and secondary to her restless leg syndrome. She complained of having chills overnight. She denied chest pain, sh ortness of breath, abdominal pain, problems. Review of systems: 10 point review of system was negative except for what is noted in the HPI Physical exam: General: Lying in bed, no acute distress Head/Neck/Throat: Trachea midline, mucous membranes moist Eyes: Sclera anicteric, Thorax: Normal respiratory effort on room air, lungs clear to auscultation bilaterally, no wheezes/rales/rhonchi Cardiovascular: Normal rate, regular rhythm, normal S1, S2; no S3, S4, rubs/gallops/murmurs Abdomen: Bowel sounds present, soft/nontender/nondistended. There is an ileostomy appreciated, bag with brown stool, ostomy site is healthy. Genitourinary: Right nephrostomy tube draining yellow urine. Left nephrostomy tube draining yellow urine Musculoskeletal: Moving all extremities, no edema Skin: Warm, dry Neurologic: AAOx3, speech fluent and goal-directed, no focal deficits, grossly intact Labs: See below Imaging: Please see imaging section Assessment/plan: 76-year-old female presented to the emergency room department with left-sided flank pain for [address] scan noted worsening left hydroureteronephrosis at the level of the right lower quadrant ileal conduit. She had nephrostomy tubes placed on 08/17. #Left-sided increasing hydroureteronephrosis -S/p left-sided nephrostomy tube placed by IR on 08/17. #Urinary tract infection -Based on previous cultures she was started on ertapenem and vancomycin. We will continue with these antibiotics until new urinary cultures have resulted. #History of right-sided hydroureteronephrosis -Functioning well #History of neurogenic bladder with recurrent cystocele status post ileal conduit creation. -urostomy bag has adequate output #History of neurogenic colon with recurrent rectocele -Status post left colectomy and creation of diverting colostomy in 1997 #Hypertension -Continue with metoprolol and lisinopril #Hypothyroid -continue Synthroid #Chronic obstructive uropathy with CKD stage III -Creatinine at baseline. Follows Dr. Rogers as outpatient #Restless leg syndrome -continue ropinirole #Chronic abdominal pain/back pain -Patient is dependent on opiate. #Obesity/RUTHANN -may use her own cpap at bedside. VS,Fishbone, I+O VS, Fishbone, I+O Laboratory Tests 08/18/21 08:26 Vital Signs Date Time Temp Pulse Resp B/P (MAP) Pulse Ox O2 Delivery O2 Flow Rate FiO2 08/18/21 10:07 18 08/18/21 09:12 68 126/72 08/18/21 06:30 97.9 86 Room Air 08/17/21 20:47 1.0 I&O- Last 24 Hours up to 6 AM 08/18/21 06:00 Intake Total 2740 ml Output Total 895 ml Balance 1845 ml DAMION SMILEY M.D. Aug 18, 2021 10:47
[2021-08-18 14:00] VITALS: BP 141/51
[2021-08-18] MEDS: rOPINIRole 1MG TAB PO SCH ×2 (15:12→22:16)
[2021-08-18] MEDS: oxyCODONE 5MG TAB PO PRN (16:27)
--- NOTE | 2021-08-18 16:53 | REP ---
INDICATION: LEFT NEPHROSTOMY INSERTION. COMPARISON: None. TECHNIQUE: Procedure was performed under the direct supervision of Dr. Jain. Patient's history of left hydroureteronephrosis seen on a previous CT scan dated 08/17/2021. The risks and benefits of the procedure were explained to the patient and informed consent was obtained. Anesthesia was present throughout the case for sedation and pain control. The patient was placed on the IR table in the prone oblique position. The left kidney was localized using ultrasound guidance. The skin was prepped and draped in a sterile fashion. A time-out was performed. 10 mL of 1% lidocaine was used as a local anesthetic. Using ultrasound guidance a 21 gauge needle was inserted and advanced into the collecting system. 10 cc of urine was withdrawn and sent to the lab for analysis. 8 cc of a 50 50 solution of Isovue 300 and sterile saline was injected to provide a nephrostogram. Using fluoroscopic guidance, and last image hold technology, a 0.018 guidewire was inserted and advanced into the ureter. The needle was removed and a 4.5 Mongolian dilator was inserted over the guidewire. The guidewire was removed and a 0.035 guidewire was inserted and advanced into the ureter. The dilator was removed and an 8 Mongolian skater APDL catheter was inserted over the guidewire. The pigtail was formed in the renal pelvis. Another 10 cc of urine was withdrawn and sent to the lab for analysis. Another nephrostogram was performed using 6 mL of a 50 50 solution of sterile saline and Isovue-300. Images demonstrate good catheter placement. The catheter was affixed to the skin and a sterile dressing was applied. The catheter was connected to a gravity drainage bag. Estimated blood loss less than 1 mL. The patient tolerated the procedure well and there were no immediate complications. 2.9 minutes of fluoroscopy time was utilized for this procedure. FINDINGS: Left hydronephrosis. IMPRESSION: Fluoroscopic and ultrasound-guided left nephrostomy drainage catheter placement. <Electronically signed by Harvey Cortes > 08/18/21 1002 <Electronically signed by Kurt Jain > 08/18/21 [id number]
[2021-08-18] MEDS: ASPIRIN 81MG ENTERIC TABLET PO SCH (20:54)
[2021-08-18] MEDS: PANTOPRAZOLE 40MG TAB (PROTONIX) PO SCH (20:54)
[2021-08-18] MEDS: HEPARIN SOD (PORCINE) 5000UNITS/ML 1ML VIAL/SYRINGE SQ SCH (20:54)
[2021-08-18 22:00] VITALS: BP 147/52
[2021-08-19] MEDS: MORPHINE 4 MG/ML 1ML VIAL/SYRINGE (J2270) IV PRN ×3 (02:35→21:19)
[2021-08-19] MEDS: LEVOTHYROXINE 50MCG TABLET (0.05MG) PO SCH (05:59)
[2021-08-19] MEDS: HEPARIN SOD (PORCINE) 5000UNITS/ML 1ML VIAL/SYRINGE SQ SCH (05:59)
[2021-08-19 06:00] VITALS: BP 134/49
[2021-08-19] MEDS: ERTAPENEM SODIUM 1 GM in NS MINI-BAG PLUS 50 ML IV SCH (08:24)
[2021-08-19] MEDS: METAXALONE 800 MG TABLET PO SCH ×3 (08:25→21:19)
[2021-08-19] MEDS: PRAVASTATIN 20 MG TAB PO SCH (08:25)
[2021-08-19] MEDS: METOPROLOL SUCC *XL* 25MG TAB (TopROL *XL*) PO SCH (08:25)
[2021-08-19] MEDS: PREGABALIN 100 MG CAP (LYRICA) PO SCH ×3 (08:26→21:19)
[2021-08-19] MEDS: oxyCODONE 10 MG CR TAB PO SCH ×2 (08:27→23:00)
[2021-08-19 08:46] LABS: BASO % 0.2 % (0.0-1.0); EOS # 0.1 10^3/uL (0.0-0.5); EOS % 1.7 % (0.0-3.0); HEMATOCRIT 26.4 % (36.0-47.0); HEMOGLOBIN 8.2 g/dl (12.0-15.5); LYMPH % 24.9 % (24.0-44.0); MEAN CORPUSCULAR HEMOGLOBIN 31.8 pg (27.0-33.0); MEAN CORPUSCULAR HGB CONC 31.1 g/dl (32.0-36.5); MEAN CORPUSCULAR VOLUME 102.3 fl (80.0-96.0); MONO # 0.4 10^3/uL (0.0-0.8); MONO % 8.9 % (2.0-8.0); NEUTROPHILS # 2.6 10^3/uL (1.5-8.5); NEUTROPHILS % 63.6 % (36.0-66.0); PLATELET COUNT, AUTOMATED 100 10^3/uL (150-450); RED BLOOD COUNT 2.58 10^6/uL (4.00-5.40); WHITE BLOOD COUNT 4.1 10^3/uL (4.0-10.0)
[2021-08-19 09:07] LABS: BLOOD UREA NITROGEN 13 MG/DL (7-18); CALCIUM LEVEL 8.2 MG/DL (8.8-10.2); CARBON DIOXIDE LEVEL 24 MEQ/L (21-32); CHLORIDE LEVEL 116 MEQ/L (98-107); CREATININE FOR GFR 0.95 MG/DL (0.55-1.30); GLOMERULAR FILTRATION RATE > 60.0 (>39); GLUCOSE, FASTING 122 MG/DL (70-100); MAGNESIUM LEVEL 1.7 MG/DL (1.8-2.4); PHOSPHORUS LEVEL 2.8 MG/DL (2.5-4.9); POTASSIUM SERUM 4.1 MEQ/L (3.5-5.1); SODIUM LEVEL 144 MEQ/L (136-145)
[2021-08-19 09:26] LABS: VANCOMYCIN LEVEL TROUGH 19.8 UG/ML (10.0-20.0)
--- NOTE | 2021-08-19 10:36 | IPNPDOC ---
Text Note Date of Service The patient was seen on 08/19/21. NOTE Subjective: 76-year-old female presented to the emergency room department with left-sided flank pain for [address] scan noted worsening left hydroureteronephrosis at the level of the right lower quadrant ileal conduit. She had nephrostomy tubes placed on 08/17. Patient seen and examined at bedside this morning. She reports her pain is better today around the nephrostomy tube site insertion. She had questions about her oxygen saturation, possibly being low. This was worked up as an outpatient for her with her primary care physician and she did not qualify for 02 at that time. Her oxygen levels have remained 88 to 91% while on room air. She denies chest pain, and shortness of breath. Review of systems: 10 point review of system was negative except for what is noted in the HPI Physical exam: General: Lying in bed, no acute distress Head/Neck/Throat: Trachea midline, mucous membranes moist Eyes: Sclera anicteric, Thorax: Normal respiratory effort on room air, lungs clear to auscultation bilaterally, no wheezes/rales/rhonchi Cardiovascular: Normal rate, regular rhythm, normal S1, S2; no S3, S4, rubs/gallops/murmurs Abdomen: Bowel sounds present, soft/nontender/nondistended. There is an ileostomy appreciated, bag with brown stool, ostomy site is healthy. Genitourinary: Right nephrostomy tube draining yellow urine. Left nephrostomy tube draining yellow urine Musculoskeletal: Moving all extremities, no edema Skin: Warm, dry Neurologic: AAOx3, speech fluent and goal-directed, no focal deficits, grossly intact Labs: See below Imaging: Please see imaging section Assessment/plan: 76-year-old female presented to the emergency room department with left-sided flank pain for [address] scan noted worsening left hydroureteronephrosis at the level of the right lower quadrant ileal conduit. She had nephrostomy tubes placed on 08/17. #Left-sided increasing hydroureteronephrosis -S/p left-sided nephrostomy tube placed by IR on 08/17. #Urinary tract infection -Based on previous cultures she was started on ertapenem and vancomycin. We will continue with these antibiotics until new urinary cultures have resulted. #History of right-sided hydroureteronephrosis -Functioning well #History of neurogenic bladder with recurrent cystocele status post ileal conduit creation. -urostomy bag has adequate output #History of neurogenic colon with recurrent rectocele -Status post left colectomy and creation of diverting colostomy in 1997 #Macrocytic anemia -Follow-up on iron panel, B12/folate #Hypertension -Continue with metoprolol and lisinopril #Hypothyroid -continue Synthroid #Chronic obstructive uropathy with CKD stage III -Creatinine at baseline. Follows Dr. Rogers as outpatient #Restless leg syndrome -continue ropinirole #Chronic abdominal pain/back pain -Patient is dependent on opiate. #Obesity/RUTHANN -may use her own cpap at bedside. -She would benefit pulmonary function test as an outpatient. #DVT prophylaxis -Heparin subcu VS,Fishbone, I+O VS, Fishbone, I+O Laboratory Tests 08/19/21 07:59 Vital Signs Date Time Temp Pulse Resp B/P (MAP) Pulse Ox O2 Delivery O2 Flow Rate FiO2 08/19/21 08:42 88 Room Air 08/19/21 08:27 18 08/19/21 08:25 134/49 08/19/21 08:25 65 08/19/21 06:00 2.0 08/18/21 22:00 98.3 I&O- Last 24 Hours up to 6 AM 08/19/21 06:00 Intake Total 1290 ml Output Total 2025 ml Balance -735 ml DAMION SMILEY M.D. Aug 19, 2021 10:36
[2021-08-19] MEDS ORDERED: MAGNESIUM OXIDE 400MG TAB (MAG-OX) PO ONE (10:45)
[2021-08-19] MEDS ORDERED: VANCOMYCIN HCL 750 MG, VIAL MATE ADAPTER 1 EACH in NS 250 ML IV SCH (11:00)
[2021-08-19 11:20] LABS: FERRITIN 98 NG/ML (8-252); IRON (FE) 15 UG/DL (50-170); PERCENT SATURATION 8.9 % (13.2-45.0); TOTAL IRON BINDING CAPACITY 168 UG/DL (250-450)
[2021-08-19 11:23] LABS: FOLATE 8.2 NG/ML; VITAMIN B12 LEVEL 302 PG/ML
[2021-08-19] MEDS ORDERED: LevoFLOXacin IV 750 MG in IV 1 EA IV SCH (13:00)
[2021-08-19 14:00] VITALS: BP 159/64
[2021-08-19] MEDS ORDERED: FERRIC CARBOXYMALTOSE INJ 750 MG, VIAL MATE ADAPTER 1 EACH in NS 250 ML IV ONE (14:00)
[2021-08-19] MEDS ORDERED: ISOVUE-370 76% 100ML VIAL As Ordered ONE (15:05)
[2021-08-19] MEDS: rOPINIRole 1MG TAB PO SCH ×2 (15:51→22:59)
--- NOTE | 2021-08-19 16:00 | REP ---
INDICATION: r/o pe COMPARISON: 04/09/2021 a standard noncontrast enhanced chest CT TECHNIQUE: CT angiography of the chest after the intravenous administration of 75 cc Isovue 370 attention pulmonary arteries. FINDINGS: There is excellent visualization of the pulmonary arterial vasculature. No focal filling defects are present that would be considered consistent with acute pulmonary emboli. There is no mediastinal or hilar adenopathy. There are small bilateral pleural effusions. There is no pericardial effusion. There is four-chamber cardiac enlargement. The imaged upper abdomen is unchanged. The imaged osseous structures are unchanged. There are spinal degenerative changes status quo. Evaluation of the lung scott shows patchy bibasilar opacities likely subsegmental atelectatic changes. IMPRESSION: 1. There is no evidence of a pulmonary embolism. 2. Small bilateral pleural effusions. 3. Bibasilar subsegmental atelectatic changes are suspected. 4. Other findings as described above. <Electronically signed by Luis Lozano > 08/19/21 [id number]
[2021-08-19] MEDS: oxyCODONE 5MG TAB PO PRN ×2 (18:41→21:33)
[2021-08-19 19:59] VITALS: BP 158/64
[2021-08-19] MEDS: ASPIRIN 81MG ENTERIC TABLET PO SCH (21:19)
[2021-08-19] MEDS: PANTOPRAZOLE 40MG TAB (PROTONIX) PO SCH (21:19)
[2021-08-20] MEDS: MORPHINE 4 MG/ML 1ML VIAL/SYRINGE (J2270) IV PRN (05:27)
[2021-08-20] MEDS: LEVOTHYROXINE 50MCG TABLET (0.05MG) PO SCH (05:27)
[2021-08-20 06:00] VITALS: BP 157/67
[2021-08-20 06:07] LABS: EOS # 0.1 10^3/uL (0.0-0.5); EOS % 1.6 % (0.0-3.0); HEMATOCRIT 25.9 % (36.0-47.0); HEMOGLOBIN 8.2 g/dl (12.0-15.5); LYMPH # 1.1 10^3/uL (1.5-5.0); LYMPH % 30.5 % (24.0-44.0); MEAN CORPUSCULAR HEMOGLOBIN 30.8 pg (27.0-33.0); MEAN CORPUSCULAR HGB CONC 31.7 g/dl (32.0-36.5); MEAN CORPUSCULAR VOLUME 97.4 fl (80.0-96.0); MONO # 0.3 10^3/uL (0.0-0.8); NEUTROPHILS # 2.2 10^3/uL (1.5-8.5); NEUTROPHILS % 59.6 % (36.0-66.0); PLATELET COUNT, AUTOMATED 125 10^3/uL (150-450); RED BLOOD COUNT 2.66 10^6/uL (4.00-5.40); WHITE BLOOD COUNT 3.6 10^3/uL (4.0-10.0)
[2021-08-20 06:28] LABS: BLOOD UREA NITROGEN 7 MG/DL (7-18); CALCIUM LEVEL 8.6 MG/DL (8.8-10.2); CARBON DIOXIDE LEVEL 26 MEQ/L (21-32); CHLORIDE LEVEL 111 MEQ/L (98-107); CREATININE FOR GFR 0.85 MG/DL (0.55-1.30); GLOMERULAR FILTRATION RATE > 60.0 (>39); GLUCOSE, FASTING 121 MG/DL (70-100); MAGNESIUM LEVEL 1.6 MG/DL (1.8-2.4); PHOSPHORUS LEVEL 2.4 MG/DL (2.5-4.9); POTASSIUM SERUM 3.9 MEQ/L (3.5-5.1); SODIUM LEVEL 141 MEQ/L (136-145)
[2021-08-20] MEDS: METAXALONE 800 MG TABLET PO SCH (08:13)
[2021-08-20] MEDS: PREGABALIN 100 MG CAP (LYRICA) PO SCH (08:13)
[2021-08-20] MEDS: MAG SULF 1GM/100ML (MAG RUN) 1 GM in IV 1 EA IV SCH ×2 (08:13→09:22)
[2021-08-20] MEDS: oxyCODONE 10 MG CR TAB PO SCH (08:17)
[2021-08-20] MEDS: PRAVASTATIN 20 MG TAB PO SCH (08:18)
[2021-08-20 08:19] VITALS: BP 157/67
[2021-08-20] MEDS: METOPROLOL SUCC *XL* 25MG TAB (TopROL *XL*) PO SCH (08:19)
[2021-08-20] MEDS ORDERED: DOCUSATE SODIUM 100MG CAPSULE PO SCH (09:00)
[2021-08-20] MEDS ORDERED: K-PHOS ORIGINAL (POT.ACID PHOSPHATE) 500MG TAB PO ONE (09:00)
[2021-08-20] MEDS ORDERED: CYANOCOBALAMIN 500 MCG TAB PO SCH (09:00)
[2021-08-20] MEDS ORDERED: FERROUS GLUCONATE 324 MG TAB PO SCH (09:00)
--- NOTE | 2021-08-20 10:30 | DS.PDOC ---
Discharge Summary General Date of Admission Aug 17, 2021 at 14:20 Date of Discharge 08/20/21 Discharge Summary DISCHARGE DIAGNOSES: Left hydroureteronephrosis Urinary tract infection COMPLICATIONS/CHIEF COMPLAINT: Hydromephrosis Of Left Kidney. HOSPITAL COURSE: Ms. Miller, is a 76-year-old female who presented to [facility] on 08/17 with left-sided flank pain. CT scan of the abdomen and pelvis done emergency room department showed worsening left-sided hydroureteronephrosis. 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 Did not have any stents or nephrostomy tubes for about a year. Right nephrostomy tube for increasing right-sided hydronephrosis in May 2021 History of left colectomy with diverting colostomy in 1997 for recurrent rectocele from nerve damage after back surgery History of partial small bowel resection History of recurrent bowel obstructions and multiple intra-abdominal surgeries for lysis of adhesions. History of sinus node dysfunction with severe sinus bradycardia and tachycardia status post pacemaker placement in October 2019 CKD stage III Chronic anemia Chronic abdominal pain with opiod dependence Diabetes RLS Hypothyroid RUTHANN on CPAP Hypertension GERD Adrenal adenoma Fibromyalgia Cirrhosis of liver with Splenomegaly as seen in CT no clinical symptoms. Chronic dysphagia ESBL E. coli urine infection in 07/29/2021 She had a left sided nephrostomy tube placed by IR (Dr. Hicks) on 08/17. She normally follows Dr. Krause (interventional radiologist) for her right nephrostomy tube, however she was not on service during this hospitalization. She will need to follow-up with Dr. Krause as an outpatient for ongoing care of her nephrostomy tubes. She was asked to make an appointment upon discharge. She was started on antibiotics for a urinary tract infection as well which have been adjusted based on cultures and sensitivities. She will be completing levofloxacin as an outpatient. During hospitalization, it was noted her oxygen level would desaturate to 86%. She reported this was being worked up with her primary care physician for borderline oxygen levels (88 to 91%). She has not had formal pulmonary function test done. However, carries a diagnosis of obstructive sleep apnea and was likely the reason for desaturation. She was encouraged to comply with her CPAP when she sleeps. A CTA of the chest was done which was negative for pulmonary embolism. She did not qualify for home O2 as she would have spontaneous recovery of oxygen saturation. She also worked with physical therapy and did not desaturate. Her 6-minute walk test was negative.. At times of reported desaturation O2 pleth reading was also not reliable upon providers evaluation. She was also noted to have anemia her iron panel was consistent with iron deficiency. She received IV iron x1, and was encouraged to continue with iron supplementations and talk to her primary care physician for possibly setting up for further IV infusions of iron. She was also noted to have low normal vitamin B12 levels therefore was started on supplementation. Her fecal occult blood test was negative. She will follow up with her primary care physician for further work-up and management of her anemia. Her hemoglobin remained stable throughout hospitalization and she did not require transfusions. She was asked to have repeat blood work done including CBC as well as BMP sure that her hemoglobin/hematocrit, as well as electrolytes were within normal limits/stable. She will be having this done with her primary care physician. She was evaluated by physical therapy and cleared. Patient not want any further rehab and wanted to also return home. DISCHARGE MEDICATIONS: Please see below. ALLERGIES: Please see below. PHYSICAL EXAMINATION ON DISCHARGE: VITAL SIGNS: Please see below. General: Lying in bed, no acute distress Head/Neck/Throat: Trachea midline, mucous membranes moist Eyes: Sclera anicteric, Thorax: Normal respiratory effort on room air, lungs clear to auscultation bilaterally, no wheezes/rales/rhonchi Cardiovascular: Normal rate, regular rhythm, normal S1, S2; no S3, S4, rubs/gallops/murmurs Abdomen: Bowel sounds present, soft/nontender/nondistended. There is an ileostomy appreciated, bag with brown stool, ostomy site is healthy. Genitourinary: Right nephrostomy tube draining yellow urine. Left nephrostomy tube draining yellow urine Musculoskeletal: Moving all extremities, no edema Skin: Warm, dry Neurologic: AAOx3, speech fluent and goal-directed, no focal deficits, grossly intact LABORATORY DATA: Please see below. IMAGING: CT ABD & PELVIS W/O CONTRAST FINDINGS: Tubes, catheters and devices: Pacemaker leads in the right cardiac chambers. Right percutaneous nephrostomy tube in place. Lungs: Bibasilar dependent and linear atelectasis. Heart: Atherosclerotic disease of coronary arteries. Liver: Mild hepatomegaly. Gallbladder and bile ducts: Status post cholecystectomy. Mild intra and extrahepatic biliary ductal dilatation to the level of the ampulla. No obstructive choledocholithiasis. Pancreas: Normal. No ductal dilation. Spleen: Mild splenomegaly. 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 Kidneys and ureters: Right lower quadrant ileal conduit. Worsening left hydroureteronephrosis to the level conduit. There is bilateral renal cortical atrophy and scarring. Extensive bilateral perinephric stranding. Stomach and bowel: Status post left colectomy and diverting left flank colostomy. Evidence of partial small bowel resection. No obstruction. Appendix: No evidence of appendicitis. Intraperitoneal space: Trace ascites. Vasculature: Atherosclerotic disease abdominal aorta. Lymph nodes: Unremarkable. No enlarged lymph nodes. Urinary bladder: Unremarkable as visualized. Reproductive: Diastasis ventral abdominal wall status post hysterectomy. Bones/joints: Osteopenia. Multilevel degenerative disease facet arthropathy of the thoracolumbar spine. Stenosis of the spinal canal foramina several levels. 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 Soft tissues: Suggestion a shallow sacral decubitus ulcer. IMPRESSION: 1. Worsening left hydroureteronephrosis the level right lower quadrant ileal conduit. 2. Status post left colectomy and diverting left flank colostomy. Status post partial small bowel resection. No obstruction. 3. Mild hepatosplenomegaly. COMMENTS: Consistent with the [employer]'s Incidental Findings Committee white paper ([employer]iol 2017): For any incidental adrenal lesion greater than 1 cm but less than 4 cm classified in this report as benign, likely benign, or containing fat (including classification as an adenoma or myelolipoma), no follow-up imaging is recommended per consensus recommendations based on imaging criteria. Further lab evaluation could be pursued if warranted based on clinical findings. CT ANGIO CHEST FINDINGS: There is excellent visualization of the pulmonary arterial vasculature. No foca l filling defects are present that would be considered consistent with acute pulmonary emboli. There is no mediastinal or hilar adenopathy. There are small bilateral pleural effusions. There is no pericardial effusion. There is four-chamber cardiac enlargement. The imaged upper abdomen is unchanged. The imaged osseous structures are unchanged. There are spinal degenerative changes status quo. Evaluation of the lung scott shows patchy bibasilar opacities likely subsegmental atelectatic changes. IMPRESSION: 1. There is no evidence of a pulmonary embolism. 2. Small bilateral pleural effusions. 3. Bibasilar subsegmental atelectatic changes are suspected. 4. Other findings as described above. PROGNOSIS: Good ACTIVITY: As tolerated DIET: Regular DISCHARGE PLAN: ARU DISPOSITION: . DISCHARGE INSTRUCTIONS: Follow-up with primary interventional radiologist upon discharge. Follow-up with primary care physician within 3 to 5 days of discharge DISCHARGE CONDITION: Stable TIME SPENT ON DISCHARGE: 30 minutes. Vital Signs/I&Os Vital Signs Date Time Temp Pulse Resp B/P (MAP) Pulse Ox O2 Delivery O2 Flow Rate FiO2 08/20/21 08:19 70 157/67 08/20/21 08:17 16 08/20/21 06:00 99.0 95 Nasal Cannula 3.0 I&O- Last 24 Hours up to 6 AM 08/20/21 05:59 Intake Total 1150 ml Output Total 3100 ml Balance -1950 ml Laboratory Data Labs 24H Laboratory Tests 2 08/19/21 12:10: D-Dimer, Quantitative 1265.55H 08/20/21 05:45: Immature Granulocyte % (Auto) 0.3, Neutrophils (%) (Auto) 59.6, Lymphocytes (%) (Auto) 30.5, Monocytes (%) (Auto) 8.0, Eosinophils (%) (Auto) 1.6, Basophils (%) (Auto) 0.0, Neutrophils # (Auto) 2.2, Lymphocytes # (Auto) 1.1L, Monocytes # (Auto) 0.3, Eosinophils # (Auto) 0.1, Basophils # (Auto) 0.0, Nucleated Red Blood Cells % (auto) 0.0, Anion Gap 4L, Glomerular Filtration Rate > 60.0, Calcium Level 8.6L, Phosphorus Level 2.4L, Magnesium Level 1.6L CBC/BMP Laboratory Tests 08/20/21 05:45 Microbiology Microbiology 08/19/21 Stool Occult Blood (JOAQUIN) - Final, Complete 08/17/21 Urine Culture - Final, Complete Enterococcus Faecalis (Vre) 08/17/21 Blood Culture - Preliminary, Resulted No Growth after 72 hours. All specime... 08/17/21 Blood Culture - Preliminary, Resulted No Growth after 72 hours. All specime... 08/17/21 Urine Culture - Final, Complete Serratia Marcescens Discharge Medications Scheduled Amlodipine Besylate (Amlodipine Besylate) 10 Mg Tablet, 10 MG PO QHS, (Reported) Aspirin (Aspirin EC) 81 Mg Tabec, 81 MG PO QHS, (Reported) Cyanocobalamin (Vitamin B-12) (Vitamin B-12) 500 Mcg Tablet, 1,000 MCG PO DAILY Ferrous Sulfate (Ferrous Sulfate) 324 Mg Tablet.dr, 324 MG PO DAILY, (Reported) @ 1100 Levofloxacin (Levofloxacin) 750 Mg Tablet, 1 TAB PO DAILY Levothyroxine Sodium (Levothyroxine Sodium) 50 Mcg Tab, 50 MCG PO DAILY, (Reported) Lisinopril (Lisinopril) 20 Mg Tablet, 20 MG PO DAILY, (Reported) Melatonin (Melatonin) 10 Mg Capsule, 20 MG PO QHS, (Reported) Metaxalone (Skelaxin) 800 Mg Tab, 800 MG PO TID, (Reported) Metoprolol Succinate (Metoprolol Succinate) 25 Mg Tab.er.24h, 25 MG PO DAILY, (Reported) Oxycodone HCl (Oxycodone HCl ER) 20 Mg Tab, 20 MG PO BID, (Reported) TAKES AT 0900 and 2300 Pantoprazole Sodium (Pantoprazole Sodium) 40 Mg Tablet.dr, 40 MG PO QHS, (Reported) Pravastatin Sodium (Pravastatin Sodium) 20 Mg Tab, 20 MG PO DAILY, (Reported) Pregabalin (Lyrica) 100 Mg Cap, 100 MG PO TID, (Reported) Ropinirole HCl (Ropinirole HCl) 1 Mg Tablet, 1 MG PO BID, (Reported) TAKE AT 1600 & 2300 Trazodone HCl (Trazodone HCl) 100 Mg Tablet, 100 MG PO QHS, (Reported) Scheduled PRN Docusate Sodium (Colace) 100 Mg Capsule, 100 MG PO ONCE PRN for CONSTIPATION, (Reported) Nitroglycerin (Nitroglycerin) 0.4 Mg Sub, 0.4 MG SL NITRO PRN for CHEST PAIN, (Reported) Oxycodone HCl (Oxycodone HCl) 10 Mg Tablet, 10 MG PO Q6H PRN for PAIN LEVEL 6- 10, (Reported) Polyethylene Glycol 3350 (Miralax) 119 Gm Powder, 17 GM PO Q2D PRN for CONSTIPATION, (Reported) Allergies Coded Allergies: pneumococcal vaccine (Verified Allergy, Intermediate, hives, 08/17/21) influenza virus vacc trivalent, spl (Verified Adverse Reaction, Severe, coma, 08/17/21) influenza virus vaccine tv 2013-14(18-49 yrs),rcmb (Verified Adverse Reaction, Severe, flu vaccine - coma, 08/17/21) Corticosteroids (Glucocorticoids) (Verified Adverse Reaction, Mild, weakness, 08/17/21) TAPE (Verified Adverse Reaction, Mild, BLISTERS, 08/17/21) clonidine (Verified Adverse Reaction, Mild, faint, 08/17/21) quinapril (Verified Adverse Reaction, Mild, passed out, 08/17/21) zolpidem (Verified Adverse Reaction, Mild, sleep walking, 08/17/21) DAMION SMILEY M.D. Aug 20, 2021 10:30
[2021-08-20] MEDS ORDERED: VITA500T40 PO (10:35)
[2021-08-20] MEDS ORDERED: LEVO750T13 PO (10:35)
== END 2021-08-20 13:15 | disposition home health service (06) | DRG 660 ==
LOC: M ED 05:03 → M ED INP 14:20 → ENRESERV 15:05 → M MS5PR 18:20
PROVIDERS: ADMIT Internal Medicine Nephrology; ATTEND Internal Medicine
PROC: 0T9180Z Drainage of Left Kidney with Drainage Device, Via Natural or Artificial Opening Endoscopic (ICD-10-PCS; principal; 2021-08-17 16:00)
DX: N13.6 Pyonephrosis (principal); F11.20 Opioid dependence, uncomplicated; N39.0 Urinary tract infection, site not specified; N18.30 Chronic kidney disease, stage 3 unspecified; G47.33 Obstructive sleep apnea (adult) (pediatric); I12.9 Hypertensive chronic kidney disease with stage 1 through stage 4 chronic kidney disease, or unspecified chronic kidney disease; E03.9 Hypothyroidism, unspecified; D50.9 Iron deficiency anemia, unspecified; E11.9 Type 2 diabetes mellitus without complications; G25.81 Restless legs syndrome; K21.9 Gastro-esophageal reflux disease without esophagitis; K74.60 Unspecified cirrhosis of liver; M79.7 Fibromyalgia; R13.10 Dysphagia, unspecified; Z79.899 Other long term (current) drug therapy; Z79.82 Long term (current) use of aspirin; Z88.7 Allergy status to serum and vaccine; Z88.8 Allergy status to other drugs, medicaments and biological substances; Z93.6 Other artificial openings of urinary tract status; J44.9 Chronic obstructive pulmonary disease, unspecified; E66.9 Obesity, unspecified; E53.8 Deficiency of other specified B group vitamins; Z95.0 Presence of cardiac pacemaker

== ENCOUNTER → 2021-09-18 | Outpatient (REF) | payer MEDICARE, BC ==
[~2021-09-18] MED LIST changes: -CEFD1CAP8 PO; +CEFD300C41 PO; -FLUC200T2; +FLUC200T4; -LEVO250T12 PO; +LEVO250T3 PO; -LEVO500T3 PO; +LEVO500T4 PO; +LEVO750T13 PO; +VITA500T40 PO
== END ==
LOC: M LAB REF 16:41
PROVIDERS: ATTEND Nurse Practitioner Adult Health
DX: R10.30 Lower abdominal pain, unspecified (principal)

== ENCOUNTER → 2021-10-06 | Outpatient (POV) | payer MEDICARE, BC ==
[~2021-10-06] VITALS: Ht 165.1 cm; Wt 78.6 kg
[2021-10-06 11:00] VITALS: BP 145/78
== END ==
LOC: M IRPOV 10:51
PROVIDERS: ATTEND Radiology Diagnostic Radiology
DX: R31.9 Hematuria, unspecified (principal); Z88.7 Allergy status to serum and vaccine; Z88.8 Allergy status to other drugs, medicaments and biological substances; Z91.048 Other nonmedicinal substance allergy status; Z96.0 Presence of urogenital implants

== ENCOUNTER 2021-10-22 09:08 | Emergency (ER) | payer MEDICARE, BC ==
[~2021-10-22] VITALS: Ht 162.6 cm; Wt 76.8 kg
[2021-10-22 09:09] VITALS: BP 142/102
[2021-10-22] MEDS ORDERED: oxyCODONE 20 MG CR TAB PO ONE (10:35)
[2021-10-22] MEDS ORDERED: oxyCODONE 5MG TAB PO ONE (10:35)
[2021-10-22] MEDS ORDERED: HALOPERIDOL 5MG/ML VIAL (J1630 PER 1) IV ONE (11:55)
[2021-10-22 12:14] LABS: BASO % 0.2 % (0.0-1.0); EOS # 0.1 10^3/uL (0.0-0.5); EOS % 2.1 % (0.0-3.0); HEMATOCRIT 32.1 % (36.0-47.0); HEMOGLOBIN 10.7 g/dl (12.0-15.5); LYMPH # 1.3 10^3/uL (1.5-5.0); LYMPH % 22.4 % (24.0-44.0); MEAN CORPUSCULAR HEMOGLOBIN 31.8 pg (27.0-33.0); MEAN CORPUSCULAR HGB CONC 33.3 g/dl (32.0-36.5); MEAN CORPUSCULAR VOLUME 95.3 fl (80.0-96.0); MONO # 0.6 10^3/uL (0.0-0.8); MONO % 9.6 % (2.0-8.0); NEUTROPHILS # 3.8 10^3/uL (1.5-8.5); NEUTROPHILS % 65.4 % (36.0-66.0); PLATELET COUNT, AUTOMATED 207 10^3/uL (150-450); RED BLOOD COUNT 3.37 10^6/uL (4.00-5.40); WHITE BLOOD COUNT 5.8 10^3/uL (4.0-10.0)
[2021-10-22 12:34] LABS: BLOOD UREA NITROGEN 16 MG/DL (7-18); CREATININE FOR GFR 0.91 MG/DL (0.55-1.30); GLUCOSE, FASTING 110 MG/DL (70-100)
[2021-10-22 12:35] LABS: CALCIUM LEVEL 8.8 MG/DL (8.8-10.2); CARBON DIOXIDE LEVEL 28 MEQ/L (21-32); CHLORIDE LEVEL 114 MEQ/L (98-107); GLOMERULAR FILTRATION RATE > 60.0 (>39); POTASSIUM SERUM 4.1 MEQ/L (3.5-5.1); SODIUM LEVEL 145 MEQ/L (136-145)
== END 2021-10-22 14:51 | disposition home or self-care (01) ==
LOC: M ED 09:08
DX: G89.29 Other chronic pain (principal); R10.9 Unspecified abdominal pain; K59.03 Drug induced constipation; E11.9 Type 2 diabetes mellitus without complications; I12.9 Hypertensive chronic kidney disease with stage 1 through stage 4 chronic kidney disease, or unspecified chronic kidney disease; N18.30 Chronic kidney disease, stage 3 unspecified; G47.33 Obstructive sleep apnea (adult) (pediatric); E03.9 Hypothyroidism, unspecified; G25.81 Restless legs syndrome; K21.9 Gastro-esophageal reflux disease without esophagitis; K74.60 Unspecified cirrhosis of liver; M79.7 Fibromyalgia; Z95.0 Presence of cardiac pacemaker; Z88.7 Allergy status to serum and vaccine; Z88.8 Allergy status to other drugs, medicaments and biological substances; Z79.82 Long term (current) use of aspirin; Z79.899 Other long term (current) drug therapy
CPT/HCPCS: 74176; 80048; 85025; 87426; 96374; 99283; J1630

== ENCOUNTER → 2021-10-28 | Outpatient (REF) | payer MEDICARE, BC ==
[~2021-10-28] MED LIST changes: +AMIT10TA7 PO
[2021-10-28 10:44] LABS: INR 0.93; PROTHROMBIN TIME 12.9 SECONDS (12.7-14.5)
[2021-10-28 10:45] LABS: PARTIAL THROMBOPLASTIN TIME 30.9 SECONDS (25.9-37.0)
== END ==
LOC: M LAB REF 10:31
PROVIDERS: ATTEND Nurse Practitioner Adult Health
DX: Z01.810 Encounter for preprocedural cardiovascular examination (principal)

== ENCOUNTER → 2021-10-28 | Outpatient (CLI) | payer MEDICARE, BC ==
[~2021-10-28] MED LIST changes: +GLYCOPYRROLATE INJ 0.2 MG/ML 2 ML VIAL As Ordered ONE; +ISOVUE-300 61% 50ML VIAL As Ordered ONE; +KETAMINE HCL 200 MG/20 ML VIAL As Ordered ONE; +LIDOCAINE 1% MDV 20ML VIAL As Ordered ONE; +LIDOCAINE 2% 100MG/5ML SDV (FOR ANES.) As Ordered ONE; +MIDAZOLAM INJ 2MG/2ML VIAL (J2250 PER 1MG) As Ordered ONE; +NS 1,000 ML IV SCH; +ceFAZolin 1GM VIAL (J0690 PER 500MG) As Ordered ONE; +ceFAZolin SOD 2 GM in D5W MINI-BAG PLUS 50 ML IV ONE; +fentaNYL 100 MCG/2 ML INJECTION As Ordered ONE; +propofoL 200 MG/20 ML VIAL As Ordered ONE
[2021-10-28 15:35] VITALS: BP 174/84
== END ==
LOC: M IRPRO 10:33
PROVIDERS: ATTEND Radiology Diagnostic Radiology
DX: N13.9 Obstructive and reflux uropathy, unspecified (principal); Z01.810 Encounter for preprocedural cardiovascular examination
CPT/HCPCS: 50435; 85610; 85730; 99152; 99153; C1729; C1769; J0690; J2250; J3010; Q9967

== ENCOUNTER → 2021-11-24 | Outpatient (POV) | payer MEDICARE, BC ==
[~2021-11-24] VITALS: Ht 160 cm; Wt 77.0 kg
[~2021-11-24] MED LIST changes: -GLYCOPYRROLATE INJ 0.2 MG/ML 2 ML VIAL As Ordered ONE; -ISOVUE-300 61% 50ML VIAL As Ordered ONE; -KETAMINE HCL 200 MG/20 ML VIAL As Ordered ONE; -LIDOCAINE 1% MDV 20ML VIAL As Ordered ONE; -LIDOCAINE 2% 100MG/5ML SDV (FOR ANES.) As Ordered ONE; -MIDAZOLAM INJ 2MG/2ML VIAL (J2250 PER 1MG) As Ordered ONE; -NS 1,000 ML IV SCH; +TIZA10TA PO; -ceFAZolin 1GM VIAL (J0690 PER 500MG) As Ordered ONE; -ceFAZolin SOD 2 GM in D5W MINI-BAG PLUS 50 ML IV ONE; -fentaNYL 100 MCG/2 ML INJECTION As Ordered ONE; -propofoL 200 MG/20 ML VIAL As Ordered ONE
[2021-11-24 13:30] VITALS: BP 132/82
== END ==
LOC: M IRPOV 13:16
PROVIDERS: ATTEND Radiology Diagnostic Radiology
DX: R31.9 Hematuria, unspecified (principal); Z43.6 Encounter for attention to other artificial openings of urinary tract; Z88.7 Allergy status to serum and vaccine; Z88.8 Allergy status to other drugs, medicaments and biological substances; Z91.048 Other nonmedicinal substance allergy status

== ENCOUNTER 2021-11-27 15:17 | Inpatient (IN) | payer MEDICARE, BC ==
[~2021-11-27] VITALS: Ht 162.6 cm; Wt 77.5 kg
[2021-11-27] MEDS: AMITRIPTYLINE 10MG TABLET PO SCH (07:41)
[~2021-11-27 15:17] MED LIST changes: -TIZA10TA PO
[2021-11-27] MEDS ORDERED: NS 1,000 ML IV SCH (18:25)
[2021-11-27] MEDS ORDERED: PERCOCET 5MG/325MG TAB PO ONE (20:00)
[2021-11-27 20:02] LABS: BASO % 0.2 % (0.0-1.0); EOS # 0.1 10^3/uL (0.0-0.5); EOS % 1.8 % (0.0-3.0); HEMATOCRIT 28.1 % (36.0-47.0); HEMOGLOBIN 9.4 g/dl (12.0-15.5); LYMPH # 1.1 10^3/uL (1.5-5.0); LYMPH % 24.4 % (24.0-44.0); MEAN CORPUSCULAR HEMOGLOBIN 33.1 pg (27.0-33.0); MEAN CORPUSCULAR HGB CONC 33.5 g/dl (32.0-36.5); MEAN CORPUSCULAR VOLUME 98.9 fl (80.0-96.0); MONO # 0.3 10^3/uL (0.0-0.8); MONO % 7.4 % (2.0-8.0); NEUTROPHILS # 2.9 10^3/uL (1.5-8.5); NEUTROPHILS % 65.5 % (36.0-66.0); PLATELET COUNT, AUTOMATED 169 10^3/uL (150-450); RED BLOOD COUNT 2.84 10^6/uL (4.00-5.40); WHITE BLOOD COUNT 4.4 10^3/uL (4.0-10.0)
[2021-11-27 20:40] LABS: BILIRUBIN,DIRECT 0.2 MG/DL (0.0-0.2); BILIRUBIN,TOTAL 0.4 MG/DL (0.2-1.0); CALCIUM LEVEL 8.8 MG/DL (8.8-10.2); CREATININE FOR GFR 1.24 MG/DL (0.55-1.30); GLOMERULAR FILTRATION RATE 44.7 (>39); POTASSIUM SERUM 4.2 MEQ/L (3.5-5.1); THYROID STIMULATING HORMONE 1.53 uIU/ML (0.358-3.740); TOTAL PROTEIN 6.6 GM/DL (6.4-8.2)
[2021-11-27] MEDS ORDERED: ASPIRIN 81MG ENTERIC TABLET PO SCH (21:00)
[2021-11-27] MEDS ORDERED: cefTRIAXone SOD 1 GM in D5W MINI-BAG PLUS 50 ML IV ONE (21:25)
[2021-11-27] MEDS ORDERED: TIZA10TA PO (21:29)
[2021-11-27] MEDS ORDERED: HOME MED LIST COMPLETE! XX SCH (21:30)
[2021-11-27 22:06] LABS: RSV AMPLIFICATION NEGATIVE (NEGATIVE)
[2021-11-28] VITALS (11 sets, daily range): BP systolic 118–158; BP diastolic 57–76; O2SAT 90–95
[2021-11-28] MEDS ORDERED: HYDROMORPHONE HCL 0.5 MG/ 0.5 ML SYRINGE (J1170 PER 1) IV ONE
[2021-11-28] MEDS ORDERED: GLUCOSE 4GM CHEW TABLET PO PRN (01:40)
[2021-11-28] MEDS ORDERED: DEXTROSE 50% 50 ML SYRINGE IV PRN (01:40)
[2021-11-28] MEDS ORDERED: GLUCAGON INJ 1MG VIAL SC PRN (01:40)
[2021-11-28] MEDS ORDERED: MIRALAX *UNIT DOSE* 17GM PACKET PO PRN (01:50)
[2021-11-28] MEDS ORDERED: DOCUSATE SODIUM 100MG CAPSULE PO PRN (01:50)
[2021-11-28] MEDS: PANTOPRAZOLE 40MG TAB (PROTONIX) PO SCH ×2 (02:52→20:09)
[2021-11-28] MEDS: traZODone 100 MG TAB PO SCH ×2 (02:52→20:09)
[2021-11-28] MEDS: rOPINIRole 1MG TAB PO SCH ×3 (02:53→20:09)
[2021-11-28] MEDS: oxyCODONE 5MG TAB PO PRN ×2 (02:54→15:18)
[2021-11-28] MEDS ORDERED: ASPIRIN 325 MG TAB PO ONE (03:00)
[2021-11-28] MEDS ORDERED: HumaLOG INSULIN (NovoLOG) PER UNIT SC SCH ×2 (07:30→21:00)
[2021-11-28] MEDS: LEVOTHYROXINE 50MCG TABLET (0.05MG) PO SCH (07:49)
[2021-11-28] MEDS: HEPARIN SOD (PORCINE) 5000UNITS/ML 1ML VIAL/SYRINGE SC SCH ×3 (07:50→20:09)
[2021-11-28] MEDS: oxyCODONE 20 MG CR TAB PO SCH ×2 (09:21→20:10)
[2021-11-28] MEDS: tiZANidine 4 MG TAB PO SCH ×3 (09:21→20:09)
[2021-11-28] MEDS: PRAVASTATIN 20 MG TAB PO SCH (09:21)
[2021-11-28] MEDS: METAXALONE 800 MG TABLET PO SCH ×3 (09:21→20:09)
[2021-11-28] MEDS: METOPROLOL SUCC *XL* 25MG TAB (TopROL *XL*) PO SCH (09:22)
[2021-11-28 10:03] LABS: INR 1.06; PROTHROMBIN TIME 14.2 SECONDS (12.7-14.5)
[2021-11-28 10:39] LABS: CHOLESTEROL RISK RATIO 2.634 (<5); FREE T4 1.19 NG/DL (0.76-1.46)
[2021-11-28] MEDS: AMITRIPTYLINE 10MG TABLET PO SCH (20:09)
[2021-11-28] MEDS: ASPIRIN 81MG ENTERIC TABLET PO SCH (20:10)
[2021-11-28] MEDS ORDERED: ATORVASTATIN 20 MG TAB PO SCH (21:00)
[2021-11-29] VITALS (14 sets, daily range): BP systolic 111–157; BP diastolic 58–71; O2SAT 87–96
[2021-11-29] MEDS ORDERED: ACETAMINOPHEN 325 MG TAB PO ONE (01:00)
[2021-11-29] MEDS: oxyCODONE 5MG TAB PO PRN ×2 (03:35→12:51)
[2021-11-29 06:03] LABS: HEMATOCRIT 29.9 % (36.0-47.0); HEMOGLOBIN 9.7 g/dl (12.0-15.5); MEAN CORPUSCULAR HEMOGLOBIN 31.5 pg (27.0-33.0); MEAN CORPUSCULAR HGB CONC 32.4 g/dl (32.0-36.5); MEAN CORPUSCULAR VOLUME 97.1 fl (80.0-96.0); PLATELET COUNT, AUTOMATED 196 10^3/uL (150-450); RED BLOOD COUNT 3.08 10^6/uL (4.00-5.40); WHITE BLOOD COUNT 3.7 10^3/uL (4.0-10.0)
[2021-11-29] MEDS: HEPARIN SOD (PORCINE) 5000UNITS/ML 1ML VIAL/SYRINGE SC SCH ×3 (06:21→21:06)
[2021-11-29] MEDS: LEVOTHYROXINE 50MCG TABLET (0.05MG) PO SCH (06:21)
[2021-11-29 06:24] LABS: CALCIUM LEVEL 8.8 MG/DL (8.8-10.2); CREATININE FOR GFR 0.97 MG/DL (0.55-1.30); GLOMERULAR FILTRATION RATE 59.3 (>39); POTASSIUM SERUM 3.8 MEQ/L (3.5-5.1)
[2021-11-29] MEDS: tiZANidine 4 MG TAB PO SCH ×3 (08:39→20:17)
[2021-11-29] MEDS: oxyCODONE 20 MG CR TAB PO SCH ×2 (08:40→20:17)
[2021-11-29] MEDS: METOPROLOL SUCC *XL* 25MG TAB (TopROL *XL*) PO SCH (08:40)
[2021-11-29] MEDS: METAXALONE 800 MG TABLET PO SCH ×3 (08:41→20:17)
[2021-11-29] MEDS: PRAVASTATIN 20 MG TAB PO SCH (08:41)
[2021-11-29] MEDS: NITROFURANTOIN (MACROBID) 100 MG CAP PO SCH ×2 (12:50→20:18)
[2021-11-29] MEDS: rOPINIRole 1MG TAB PO SCH ×2 (15:37→20:17)
[2021-11-29] MEDS: AMITRIPTYLINE 10MG TABLET PO SCH (20:17)
[2021-11-29] MEDS: ASPIRIN 81MG ENTERIC TABLET PO SCH (20:17)
[2021-11-29] MEDS: traZODone 100 MG TAB PO SCH (20:17)
[2021-11-29] MEDS: PANTOPRAZOLE 40MG TAB (PROTONIX) PO SCH (20:17)
[2021-11-30] MEDS: oxyCODONE 5MG TAB PO PRN (02:26)
[2021-11-30 04:00] VITALS: BP 133/66
[2021-11-30] MEDS: HEPARIN SOD (PORCINE) 5000UNITS/ML 1ML VIAL/SYRINGE SC SCH (05:04)
[2021-11-30] MEDS: LEVOTHYROXINE 50MCG TABLET (0.05MG) PO SCH (05:04)
[2021-11-30 06:02] LABS: HEMATOCRIT 32.1 % (36.0-47.0); HEMOGLOBIN 10.5 g/dl (12.0-15.5); MEAN CORPUSCULAR HEMOGLOBIN 32.3 pg (27.0-33.0); MEAN CORPUSCULAR HGB CONC 32.7 g/dl (32.0-36.5); MEAN CORPUSCULAR VOLUME 98.8 fl (80.0-96.0); PLATELET COUNT, AUTOMATED 181 10^3/uL (150-450); RED BLOOD COUNT 3.25 10^6/uL (4.00-5.40); WHITE BLOOD COUNT 2.7 10^3/uL (4.0-10.0)
[2021-11-30 06:24] LABS: CALCIUM LEVEL 8.6 MG/DL (8.8-10.2); CREATININE FOR GFR 1.07 MG/DL (0.55-1.30); GLOMERULAR FILTRATION RATE 52.9 (>39); POTASSIUM SERUM 4.4 MEQ/L (3.5-5.1)
[2021-11-30] MEDS: tiZANidine 4 MG TAB PO SCH (07:54)
[2021-11-30 07:55] VITALS: BP 138/66
[2021-11-30] MEDS: PRAVASTATIN 20 MG TAB PO SCH (07:55)
[2021-11-30] MEDS: NITROFURANTOIN (MACROBID) 100 MG CAP PO SCH (07:55)
[2021-11-30] MEDS: METAXALONE 800 MG TABLET PO SCH (07:55)
[2021-11-30] MEDS: oxyCODONE 20 MG CR TAB PO SCH (07:55)
[2021-11-30] MEDS: METOPROLOL SUCC *XL* 25MG TAB (TopROL *XL*) PO SCH (07:56)
[2021-11-30 08:10] VITALS: BP 133/62
[2021-11-30 08:54] LABS: FOLATE 18.7 NG/ML (>5.4)
[2021-11-30] MEDS ORDERED: NITR100C2 PO (09:48)
== END 2021-11-30 12:35 | disposition home health service (06) | DRG 690 ==
LOC: M ED 15:17 → M ED INP 23:46 → ENRESERV 11-28 00:26 → M PCU 11-28 01:56
PROVIDERS: ADMIT Family Medicine; ATTEND Family Medicine
DX: N39.0 Urinary tract infection, site not specified (principal); I13.0 Hypertensive heart and chronic kidney disease with heart failure and stage 1 through stage 4 chronic kidney disease, or unspecified chronic kidney disease; I50.32 Chronic diastolic (congestive) heart failure; R55 Syncope and collapse; I48.91 Unspecified atrial fibrillation; G56.01 Carpal tunnel syndrome, right upper limb; E11.22 Type 2 diabetes mellitus with diabetic chronic kidney disease; E78.5 Hyperlipidemia, unspecified; K21.9 Gastro-esophageal reflux disease without esophagitis; J45.909 Unspecified asthma, uncomplicated; M54.81 Occipital neuralgia; G40.909 Epilepsy, unspecified, not intractable, without status epilepticus; E03.9 Hypothyroidism, unspecified; B96.29 Other Escherichia coli [E. coli] as the cause of diseases classified elsewhere; Z79.82 Long term (current) use of aspirin; Z79.899 Other long term (current) drug therapy; Z95.0 Presence of cardiac pacemaker; N18.32 Chronic kidney disease, stage 3b; Z86.73 Personal history of transient ischemic attack (TIA), and cerebral infarction without residual deficits; K74.60 Unspecified cirrhosis of liver; G43.909 Migraine, unspecified, not intractable, without status migrainosus; F40.240 Claustrophobia; Z98.41 Cataract extraction status, right eye; Z98.42 Cataract extraction status, left eye; G47.33 Obstructive sleep apnea (adult) (pediatric); D64.9 Anemia, unspecified; R13.10 Dysphagia, unspecified; Z88.8 Allergy status to other drugs, medicaments and biological substances; Z88.7 Allergy status to serum and vaccine; Z93.6 Other artificial openings of urinary tract status

== ENCOUNTER → 2021-12-03 | Outpatient (REF) | payer MEDICARE, BC ==
[~2021-12-03] MED LIST changes: +NITR100C2 PO; +TIZA10TA PO
== END ==
LOC: M LAB REF 16:11
PROVIDERS: ATTEND Nurse Practitioner Adult Health
DX: M25.50 Pain in unspecified joint (principal)

== ENCOUNTER 2021-12-15 15:32 | Emergency (ER) | payer MEDICARE, BC ==
[~2021-12-15] VITALS: Ht 162.6 cm; Wt 77.7 kg
[~2021-12-15 15:32] MED LIST changes: -ONDA4TAB6 PO
[2021-12-15 15:33] VITALS: BP 191/80
[2021-12-15] MEDS ORDERED: ONDA4TAB6 PO (17:48)
== END 2021-12-15 17:55 | disposition home or self-care (01) ==
LOC: M ED 15:32
DX: S09.90XA Unspecified injury of head, initial encounter (principal); W01.0XXA Fall on same level from slipping, tripping and stumbling without subsequent striking against object, initial encounter; W22.8XXA Striking against or struck by other objects, initial encounter; E11.9 Type 2 diabetes mellitus without complications; I10 Essential (primary) hypertension; J45.909 Unspecified asthma, uncomplicated; K21.9 Gastro-esophageal reflux disease without esophagitis; N18.30 Chronic kidney disease, stage 3 unspecified; Z79.811 Long term (current) use of aromatase inhibitors; Z79.899 Other long term (current) drug therapy; Z88.7 Allergy status to serum and vaccine; Z88.8 Allergy status to other drugs, medicaments and biological substances; Z91.048 Other nonmedicinal substance allergy status; Y92.9 Unspecified place or not applicable; Y93.9 Activity, unspecified; Y99.9 Unspecified external cause status

== ENCOUNTER → 2021-12-15 | Outpatient (POV) | payer MEDICARE, BC ==
[~2021-12-15] MED LIST changes: +ONDA4TAB6 PO
== END ==
LOC: M IRPOV 14:15
PROVIDERS: ATTEND Radiology Diagnostic Radiology
DX: Z43.6 Encounter for attention to other artificial openings of urinary tract (principal)

== ENCOUNTER 2022-01-19 10:46 | Inpatient (IN) | payer MEDICARE, BC ==
[~2022-01-19] VITALS: Ht 162.6 cm; Wt 77.8 kg
[~2022-01-19 10:46] MED LIST changes: +ONDA4TAB6 PO
[2022-01-19 12:02] LABS: BASO % 0.2 % (0.0-1.0); EOS # 0.1 10^3/uL (0.0-0.5); EOS % 1.5 % (0.0-3.0); HEMATOCRIT 28.2 % (36.0-47.0); HEMOGLOBIN 9.1 g/dl (12.0-15.5); LYMPH # 1.3 10^3/uL (1.5-5.0); LYMPH % 23.6 % (24.0-44.0); MEAN CORPUSCULAR HEMOGLOBIN 32.9 pg (27.0-33.0); MEAN CORPUSCULAR HGB CONC 32.3 g/dl (32.0-36.5); MEAN CORPUSCULAR VOLUME 101.8 fl (80.0-96.0); MONO # 0.5 10^3/uL (0.0-0.8); MONO % 8.6 % (2.0-8.0); NEUTROPHILS # 3.6 10^3/uL (1.5-8.5); NEUTROPHILS % 65.6 % (36.0-66.0); PLATELET COUNT, AUTOMATED 233 10^3/uL (150-450); RED BLOOD COUNT 2.77 10^6/uL (4.00-5.40); WHITE BLOOD COUNT 5.5 10^3/uL (4.0-10.0)
[2022-01-19 12:27] LABS: ALBUMIN 3.1 GM/DL (3.2-5.2); BILIRUBIN,DIRECT 0.1 MG/DL (0.0-0.2); BILIRUBIN,TOTAL 0.3 MG/DL (0.2-1.0); CALCIUM LEVEL 8.3 MG/DL (8.8-10.2); CREATININE FOR GFR 1.29 MG/DL (0.55-1.30); GLOMERULAR FILTRATION RATE 42.7 (>39); POTASSIUM SERUM 4.5 MEQ/L (3.5-5.1); TOTAL PROTEIN 7.1 GM/DL (6.4-8.2)
[2022-01-19] MEDS ORDERED: MORPHINE 4 MG/ML 1ML VIAL/SYRINGE IV ONE ×3 (13:00→17:40)
[2022-01-19] MEDS ORDERED: ONDANSETRON 4MG/2ML VIAL IV ONE (13:00)
[2022-01-19 13:58] LABS: BILIRUBIN, URINE MANUAL NEGATIVE (NEGATIVE); GLUCOSE, URINE (UA) MANUAL NEGATIVE (NEGATIVE); KETONE, URINE MANUAL NEGATIVE (NEGATIVE); UROBILINOGEN, URINE MANUAL NORMAL (NORMAL)
[2022-01-19 13:59] LABS: BILIRUBIN, URINE MANUAL NEGATIVE (NEGATIVE); GLUCOSE, URINE (UA) MANUAL NEGATIVE (NEGATIVE); KETONE, URINE MANUAL NEGATIVE (NEGATIVE); UROBILINOGEN, URINE MANUAL NORMAL (NORMAL)
[2022-01-19 14:01] LABS: HYALINE CAST, URINE NONE SEEN /lpf (0-1); MUCUS, URINE SMALL AMOUNT (NEGATIVE); RBC, URINE TNTC /hpf (0-3); SQUAMOUS EPITHELIAL CELL URINE NONE SEEN /hpf (SMALL AMT)
[2022-01-19 14:02] LABS: AMORPHOUS SEDIMENT, URINE SMALL AMOUNT (NEGATIVE); BACTERIA, URINE LARGE AMOUNT
[2022-01-19 14:06] LABS: RBC, URINE TNTC /hpf (0-3)
[2022-01-19 14:07] LABS: AMORPHOUS SEDIMENT, URINE SMALL AMOUNT (NEGATIVE); BACTERIA, URINE MOD AMOUNT; HYALINE CAST, URINE NONE SEEN /lpf (0-1); MUCUS, URINE SMALL AMOUNT (NEGATIVE); SQUAMOUS EPITHELIAL CELL URINE SMALL AMOUNT /hpf (SMALL AMT)
[2022-01-19] MEDS ORDERED: ISOVUE-370 76% 100ML VIAL As Ordered ONE (15:28)
[2022-01-19] MEDS ORDERED: BACTRIM 160MG/800MG DS TAB PO ONE (17:35)
[2022-01-19 18:29] LABS: RSV AMPLIFICATION NEGATIVE (NEGATIVE)
[2022-01-19] MEDS ORDERED: MOM 30ML SUSPENSION UDC PO PRN (18:30)
[2022-01-19] MEDS ORDERED: HYDROMORPHONE HCL 0.5 MG/ 0.5 ML SYRINGE (J1170 PER 1) IV PRN (18:30)
[2022-01-19] MEDS ORDERED: ONDANSETRON 4MG/2ML VIAL IV PRN (18:30)
[2022-01-19] MEDS ORDERED: MAALOX 30 ML SUSP *UDC PO PRN (18:30)
[2022-01-19] MEDS ORDERED: ACETAMINOPHEN TAB 650MG DOSE (2X325MG) PO PRN (18:30)
[2022-01-19] MEDS: NS 1,000 ML IV SCH (18:30)
[2022-01-19] MEDS: HYDROMORPHONE HCL 0.5 MG/ 0.5 ML SYRINGE (J1170 PER 1) IV PRN (19:18)
[2022-01-19 19:57] LABS: HEMATOCRIT 28.2 % (36.0-47.0); HEMOGLOBIN 9.1 g/dl (12.0-15.5)
[2022-01-19] MEDS ORDERED: VITMTA PO (20:08)
[2022-01-19] MEDS ORDERED: HOME MED LIST COMPLETE! XX SCH (20:10)
[2022-01-19] MEDS: DOCUSATE SODIUM 100MG CAPSULE PO SCH (21:00)
[2022-01-19 23:09] VITALS: BP 152/58
[2022-01-19] MEDS ORDERED: rOPINIRole 1MG TAB PO ONE (23:35)
[2022-01-20] VITALS (9 sets, daily range): BP systolic 101–162; BP diastolic 58–70; O2SAT 85–97
[2022-01-20 00:24] LABS: HEMATOCRIT 26.1 % (36.0-47.0); HEMOGLOBIN 8.2 g/dl (12.0-15.5)
[2022-01-20] MEDS: HYDROMORPHONE HCL 0.5 MG/ 0.5 ML SYRINGE (J1170 PER 1) IV PRN ×5 (02:07→22:39)
[2022-01-20] MEDS: NS 1,000 ML IV SCH (05:37)
[2022-01-20 07:25] LABS: BASO % 0.3 % (0.0-1.0); EOS # 0.1 10^3/uL (0.0-0.5); EOS % 1.5 % (0.0-3.0); HEMATOCRIT 26.5 % (36.0-47.0); HEMOGLOBIN 8.4 g/dl (12.0-15.5); LYMPH # 1.2 10^3/uL (1.5-5.0); LYMPH % 37.7 % (24.0-44.0); MEAN CORPUSCULAR HEMOGLOBIN 33.3 pg (27.0-33.0); MEAN CORPUSCULAR HGB CONC 31.7 g/dl (32.0-36.5); MEAN CORPUSCULAR VOLUME 105.2 fl (80.0-96.0); MONO # 0.4 10^3/uL (0.0-0.8); MONO % 10.8 % (2.0-8.0); NEUTROPHILS # 1.6 10^3/uL (1.5-8.5); NEUTROPHILS % 49.4 % (36.0-66.0); PLATELET COUNT, AUTOMATED 164 10^3/uL (150-450); RED BLOOD COUNT 2.52 10^6/uL (4.00-5.40); WHITE BLOOD COUNT 3.2 10^3/uL (4.0-10.0)
[2022-01-20 07:35] LABS: ALBUMIN 2.7 GM/DL (3.2-5.2); BILIRUBIN,TOTAL 0.3 MG/DL (0.2-1.0); CALCIUM LEVEL 8.6 MG/DL (8.8-10.2); CREATININE FOR GFR 1.05 MG/DL (0.55-1.30); GLOMERULAR FILTRATION RATE 54.1 (>39); MAGNESIUM LEVEL 1.9 MG/DL (1.8-2.4); POTASSIUM SERUM 4.4 MEQ/L (3.5-5.1); TOTAL PROTEIN 6.3 GM/DL (6.4-8.2)
[2022-01-20] MEDS: DOCUSATE SODIUM 100MG CAPSULE PO SCH ×2 (09:32→20:41)
[2022-01-20 13:20] LABS: HEMATOCRIT 30.6 % (36.0-47.0); HEMOGLOBIN 9.5 g/dl (12.0-15.5)
[2022-01-20] MEDS ORDERED: VANCOMYCIN HCL 1,000 MG, VIAL MATE ADAPTER 1 EACH in NS 250 ML IV SCH (14:25)
[2022-01-20] MEDS ORDERED: HYDROmorphone 2 MG TAB PO ONE (15:35)
[2022-01-20] MEDS ORDERED: PILL CUTTER 1 EACH XX PRN (15:40)
[2022-01-20] MEDS ORDERED: LIDOCAINE 1% MDV 20ML VIAL As Ordered ONE (15:49)
[2022-01-20] MEDS ORDERED: VANCOMYCIN HCL 1,000 MG, VIAL MATE ADAPTER 1 EACH in NS 250 ML IV ONE (16:00)
[2022-01-20] MEDS: ERTAPENEM SODIUM 1 GM in NS MINI-BAG PLUS 50 ML IV SCH (17:48)
[2022-01-20] MEDS: SODIUM CHLORIDE 0.9% INJ 10 ML SYR IV SCH (18:18)
[2022-01-20 19:14] LABS: HEMATOCRIT 26.8 % (36.0-47.0); HEMOGLOBIN 8.5 g/dl (12.0-15.5)
[2022-01-21] VITALS (22 sets, daily range): BP systolic 150–172; BP diastolic 67–86; O2SAT 95–100
[2022-01-21 00:39] LABS: HEMATOCRIT 27.2 % (36.0-47.0); HEMOGLOBIN 8.8 g/dl (12.0-15.5)
[2022-01-21] MEDS: VANCOMYCIN HCL 750 MG, VIAL MATE ADAPTER 1 EACH in NS 250 ML IV SCH ×2 (01:01→14:10)
[2022-01-21] MEDS: SODIUM CHLORIDE 0.9% INJ 10 ML SYR IV SCH ×2 (05:51→18:19)
[2022-01-21 06:06] LABS: BASO % 0.6 % (0.0-1.0); EOS # 0.1 10^3/uL (0.0-0.5); EOS % 1.9 % (0.0-3.0); HEMATOCRIT 26.3 % (36.0-47.0); HEMOGLOBIN 8.5 g/dl (12.0-15.5); LYMPH # 1.1 10^3/uL (1.5-5.0); LYMPH % 34.3 % (24.0-44.0); MEAN CORPUSCULAR HEMOGLOBIN 32.6 pg (27.0-33.0); MEAN CORPUSCULAR HGB CONC 32.3 g/dl (32.0-36.5); MEAN CORPUSCULAR VOLUME 100.8 fl (80.0-96.0); MONO # 0.3 10^3/uL (0.0-0.8); MONO % 9.4 % (2.0-8.0); NEUTROPHILS # 1.7 10^3/uL (1.5-8.5); NEUTROPHILS % 53.2 % (36.0-66.0); PLATELET COUNT, AUTOMATED 197 10^3/uL (150-450); RED BLOOD COUNT 2.61 10^6/uL (4.00-5.40); WHITE BLOOD COUNT 3.2 10^3/uL (4.0-10.0)
[2022-01-21 06:26] LABS: BLOOD UREA NITROGEN 11 MG/DL (7-18); CALCIUM LEVEL 8.8 MG/DL (8.8-10.2); CARBON DIOXIDE LEVEL 25 MEQ/L (21-32); CHLORIDE LEVEL 112 MEQ/L (98-107); CREATININE FOR GFR 0.94 MG/DL (0.55-1.30); GLOMERULAR FILTRATION RATE > 60.0 (>39); GLUCOSE, FASTING 118 MG/DL (70-100); MAGNESIUM LEVEL 1.8 MG/DL (1.8-2.4); SODIUM LEVEL 141 MEQ/L (136-145)
[2022-01-21] MEDS: HYDROMORPHONE HCL 0.5 MG/ 0.5 ML SYRINGE (J1170 PER 1) IV PRN ×4 (07:32→21:20)
[2022-01-21] MEDS: DOCUSATE SODIUM 100MG CAPSULE PO SCH ×2 (08:55→21:00)
[2022-01-21] MEDS ORDERED: NITROGLYCERIN 0.4 MG SUBL TABLET SL PRN (09:00)
[2022-01-21] MEDS: rOPINIRole 1MG TAB PO SCH ×2 (09:41→23:02)
[2022-01-21] MEDS: MULTIVITAMINS/MINERALS THERAP 1 TAB PO SCH (09:41)
[2022-01-21] MEDS: PREGABALIN 100 MG CAP (LYRICA) PO SCH ×3 (09:41→23:02)
[2022-01-21] MEDS: LEVOTHYROXINE 50MCG TABLET (0.05MG) PO SCH (09:41)
[2022-01-21] MEDS: METAXALONE 800 MG TABLET PO SCH ×3 (11:43→23:02)
[2022-01-21] MEDS: ERTAPENEM SODIUM 1 GM in NS MINI-BAG PLUS 50 ML IV SCH (15:16)
[2022-01-21 16:49] LABS: HEMATOCRIT 26.6 % (36.0-47.0); HEMOGLOBIN 8.7 g/dl (12.0-15.5)
[2022-01-21] MEDS: AMITRIPTYLINE 10MG TABLET PO SCH (23:02)
[2022-01-21] MEDS: PRAVASTATIN 20 MG TAB PO SCH (23:02)
[2022-01-21] MEDS: traZODone 100 MG TAB PO SCH (23:02)
[2022-01-21] MEDS: METOPROLOL SUCC *XL* 25MG TAB (TopROL *XL*) PO SCH (23:02)
[2022-01-21] MEDS: PANTOPRAZOLE 40MG TAB (PROTONIX) PO SCH (23:02)
[2022-01-22] VITALS (11 sets, daily range): BP systolic 135–150; BP diastolic 63–67; O2SAT 93–97
[2022-01-22] MEDS: HYDROMORPHONE HCL 0.5 MG/ 0.5 ML SYRINGE (J1170 PER 1) IV PRN ×4 (00:37→22:22)
[2022-01-22] MEDS: VANCOMYCIN HCL 750 MG, VIAL MATE ADAPTER 1 EACH in NS 250 ML IV SCH ×2 (01:00→14:18)
[2022-01-22] MEDS: SODIUM CHLORIDE 0.9% INJ 10 ML SYR IV SCH ×2 (06:15→17:07)
[2022-01-22] MEDS: LEVOTHYROXINE 50MCG TABLET (0.05MG) PO SCH (06:15)
[2022-01-22 06:58] LABS: BASO % 0.7 % (0.0-1.0); EOS # 0.1 10^3/uL (0.0-0.5); EOS % 2.6 % (0.0-3.0); HEMOGLOBIN 8.2 g/dl (12.0-15.5); LYMPH # 1.2 10^3/uL (1.5-5.0); LYMPH % 45.1 % (24.0-44.0); MEAN CORPUSCULAR HEMOGLOBIN 32.8 pg (27.0-33.0); MEAN CORPUSCULAR HGB CONC 32.8 g/dl (32.0-36.5); MONO # 0.3 10^3/uL (0.0-0.8); MONO % 9.9 % (2.0-8.0); NEUTROPHILS # 1.1 10^3/uL (1.5-8.5); NEUTROPHILS % 41.3 % (36.0-66.0); PLATELET COUNT, AUTOMATED 204 10^3/uL (150-450); WHITE BLOOD COUNT 2.7 10^3/uL (4.0-10.0)
[2022-01-22 07:39] LABS: BLOOD UREA NITROGEN 11 MG/DL (7-18); C REACTIVE PROTEIN QUANTITATIV 1.68 MG/DL (0.00-0.30); CALCIUM LEVEL 8.8 MG/DL (8.8-10.2); CARBON DIOXIDE LEVEL 27 MEQ/L (21-32); CHLORIDE LEVEL 110 MEQ/L (98-107); CREATININE FOR GFR 0.84 MG/DL (0.55-1.30); GLOMERULAR FILTRATION RATE > 60.0 (>39); GLUCOSE, FASTING 108 MG/DL (70-100); MAGNESIUM LEVEL 1.9 MG/DL (1.8-2.4); POTASSIUM SERUM 3.6 MEQ/L (3.5-5.1); SODIUM LEVEL 143 MEQ/L (136-145)
[2022-01-22] MEDS: DOCUSATE SODIUM 100MG CAPSULE PO SCH ×2 (08:11→21:55)
[2022-01-22] MEDS: MULTIVITAMINS/MINERALS THERAP 1 TAB PO SCH (08:12)
[2022-01-22] MEDS: METAXALONE 800 MG TABLET PO SCH ×3 (08:12→21:54)
[2022-01-22] MEDS: PREGABALIN 100 MG CAP (LYRICA) PO SCH ×3 (08:12→21:54)
[2022-01-22] MEDS: rOPINIRole 1MG TAB PO SCH ×2 (08:12→21:55)
[2022-01-22] MEDS ORDERED: HYDROMORPHONE HCL 0.5 MG/ 0.5 ML SYRINGE (J1170 PER 1) IV PRN (09:10)
[2022-01-22 12:36] LABS: HEMATOCRIT 26.5 % (36.0-47.0); HEMOGLOBIN 8.7 g/dl (12.0-15.5)
[2022-01-22] MEDS: ERTAPENEM SODIUM 1 GM in NS MINI-BAG PLUS 50 ML IV SCH (15:45)
[2022-01-22] MEDS: PANTOPRAZOLE 40MG TAB (PROTONIX) PO SCH (21:54)
[2022-01-22] MEDS: traZODone 100 MG TAB PO SCH (21:55)
[2022-01-22] MEDS: PRAVASTATIN 20 MG TAB PO SCH (21:55)
[2022-01-22] MEDS: AMITRIPTYLINE 10MG TABLET PO SCH (21:55)
[2022-01-22] MEDS: METOPROLOL SUCC *XL* 25MG TAB (TopROL *XL*) PO SCH (21:59)
[2022-01-23] VITALS (23 sets, daily range): BP systolic 113–165; BP diastolic 54–76; O2SAT 85–98
[2022-01-23] MEDS: HYDROMORPHONE HCL 0.5 MG/ 0.5 ML SYRINGE (J1170 PER 1) IV PRN ×3 (01:31→07:58)
[2022-01-23] MEDS: VANCOMYCIN HCL 750 MG, VIAL MATE ADAPTER 1 EACH in NS 250 ML IV SCH ×2 (01:32→14:49)
[2022-01-23] MEDS: LEVOTHYROXINE 50MCG TABLET (0.05MG) PO SCH (05:02)
[2022-01-23] MEDS: SODIUM CHLORIDE 0.9% INJ 10 ML SYR IV SCH ×2 (05:03→17:18)
[2022-01-23 05:50] LABS: BASO % 0.3 % (0.0-1.0); EOS # 0.1 10^3/uL (0.0-0.5); EOS % 2.1 % (0.0-3.0); HEMATOCRIT 25.5 % (36.0-47.0); HEMOGLOBIN 8.3 g/dl (12.0-15.5); LYMPH # 1.5 10^3/uL (1.5-5.0); LYMPH % 41.1 % (24.0-44.0); MEAN CORPUSCULAR HEMOGLOBIN 33.1 pg (27.0-33.0); MEAN CORPUSCULAR HGB CONC 32.5 g/dl (32.0-36.5); MEAN CORPUSCULAR VOLUME 101.6 fl (80.0-96.0); MONO # 0.3 10^3/uL (0.0-0.8); NEUTROPHILS # 1.8 10^3/uL (1.5-8.5); NEUTROPHILS % 48.2 % (36.0-66.0); PLATELET COUNT, AUTOMATED 206 10^3/uL (150-450); RED BLOOD COUNT 2.51 10^6/uL (4.00-5.40); WHITE BLOOD COUNT 3.8 10^3/uL (4.0-10.0)
[2022-01-23 06:16] LABS: BLOOD UREA NITROGEN 10 MG/DL (7-18); C REACTIVE PROTEIN QUANTITATIV 0.92 MG/DL (0.00-0.30); CALCIUM LEVEL 8.6 MG/DL (8.8-10.2); CARBON DIOXIDE LEVEL 27 MEQ/L (21-32); CHLORIDE LEVEL 111 MEQ/L (98-107); CREATININE FOR GFR 0.86 MG/DL (0.55-1.30); GLOMERULAR FILTRATION RATE > 60.0 (>39); GLUCOSE, FASTING 116 MG/DL (70-100); MAGNESIUM LEVEL 1.7 MG/DL (1.8-2.4); POTASSIUM SERUM 3.7 MEQ/L (3.5-5.1); SODIUM LEVEL 143 MEQ/L (136-145)
[2022-01-23] MEDS: rOPINIRole 1MG TAB PO SCH ×2 (08:00→21:03)
[2022-01-23] MEDS: DOCUSATE SODIUM 100MG CAPSULE PO SCH ×2 (08:01→21:03)
[2022-01-23] MEDS: MULTIVITAMINS/MINERALS THERAP 1 TAB PO SCH (08:01)
[2022-01-23] MEDS: PREGABALIN 100 MG CAP (LYRICA) PO SCH ×3 (08:01→21:02)
[2022-01-23] MEDS: METAXALONE 800 MG TABLET PO SCH ×3 (08:01→21:02)
[2022-01-23] MEDS: oxyCODONE 20 MG CR TAB PO SCH ×2 (09:00→21:01)
[2022-01-23] MEDS: oxyCODONE 5MG TAB PO PRN (11:43)
[2022-01-23] MEDS: HYDROmorphone 2 MG TAB PO PRN (13:38)
[2022-01-23] MEDS: ERTAPENEM SODIUM 1 GM in NS MINI-BAG PLUS 50 ML IV SCH (16:09)
[2022-01-23] MEDS ORDERED: MAG SULF 1GM/100ML (MAG RUN) 1 GM in IV 1 EA IV ONE (18:15)
[2022-01-23 19:05] LABS: HEMATOCRIT 33.4 % (36.0-47.0); MEAN CORPUSCULAR HEMOGLOBIN 32.4 pg (27.0-33.0); MEAN CORPUSCULAR HGB CONC 33.8 g/dl (32.0-36.5); MEAN CORPUSCULAR VOLUME 95.7 fl (80.0-96.0); PLATELET COUNT, AUTOMATED 222 10^3/uL (150-450); RED BLOOD COUNT 3.49 10^6/uL (4.00-5.40); WHITE BLOOD COUNT 4.1 10^3/uL (4.0-10.0)
[2022-01-23 19:09] LABS: HEMOGLOBIN 11.3 g/dl (12.0-15.5)
[2022-01-23] MEDS: SODIUM CHLORIDE 0.9% INJ 10 ML SYR IV PRN (21:01)
[2022-01-23] MEDS: PANTOPRAZOLE 40MG TAB (PROTONIX) PO SCH (21:02)
[2022-01-23] MEDS: traZODone 100 MG TAB PO SCH (21:02)
[2022-01-23] MEDS: PRAVASTATIN 20 MG TAB PO SCH (21:02)
[2022-01-23] MEDS: METOPROLOL SUCC *XL* 25MG TAB (TopROL *XL*) PO SCH (21:03)
[2022-01-23] MEDS: AMITRIPTYLINE 10MG TABLET PO SCH (21:30)
[2022-01-24] VITALS (17 sets, daily range): BP systolic 145–157; BP diastolic 61–79; O2SAT 91–99
[2022-01-24] MEDS: VANCOMYCIN HCL 750 MG, VIAL MATE ADAPTER 1 EACH in NS 250 ML IV SCH ×3 (02:54→22:27)
[2022-01-24] MEDS: HYDROmorphone 2 MG TAB PO PRN ×2 (05:21→23:40)
[2022-01-24] MEDS: SODIUM CHLORIDE 0.9% INJ 10 ML SYR IV SCH ×2 (05:22→17:15)
[2022-01-24] MEDS: LEVOTHYROXINE 50MCG TABLET (0.05MG) PO SCH (05:23)
[2022-01-24 05:32] LABS: BASO % 0.8 % (0.0-1.0); EOS # 0.1 10^3/uL (0.0-0.5); EOS % 2.3 % (0.0-3.0); HEMATOCRIT 38.3 % (36.0-47.0); HEMOGLOBIN 12.1 g/dl (12.0-15.5); LYMPH # 1.8 10^3/uL (1.5-5.0); LYMPH % 45.5 % (24.0-44.0); MEAN CORPUSCULAR HEMOGLOBIN 31.7 pg (27.0-33.0); MEAN CORPUSCULAR HGB CONC 31.6 g/dl (32.0-36.5); MEAN CORPUSCULAR VOLUME 100.3 fl (80.0-96.0); MONO # 0.4 10^3/uL (0.0-0.8); NEUTROPHILS # 1.6 10^3/uL (1.5-8.5); NEUTROPHILS % 41.6 % (36.0-66.0); PLATELET COUNT, AUTOMATED 218 10^3/uL (150-450); RED BLOOD COUNT 3.82 10^6/uL (4.00-5.40); WHITE BLOOD COUNT 3.9 10^3/uL (4.0-10.0)
[2022-01-24 05:47] LABS: BLOOD UREA NITROGEN 10 MG/DL (7-18); C REACTIVE PROTEIN QUANTITATIV 0.64 MG/DL (0.00-0.30); CALCIUM LEVEL 8.7 MG/DL (8.8-10.2); CARBON DIOXIDE LEVEL 24 MEQ/L (21-32); CHLORIDE LEVEL 113 MEQ/L (98-107); CREATININE FOR GFR 0.88 MG/DL (0.55-1.30); GLOMERULAR FILTRATION RATE > 60.0 (>39); GLUCOSE, FASTING 145 MG/DL (70-100); MAGNESIUM LEVEL 2.2 MG/DL (1.8-2.4); POTASSIUM SERUM 3.6 MEQ/L (3.5-5.1); SODIUM LEVEL 142 MEQ/L (136-145)
[2022-01-24] MEDS: DOCUSATE SODIUM 100MG CAPSULE PO SCH ×2 (08:54→20:51)
[2022-01-24] MEDS: rOPINIRole 1MG TAB PO SCH ×2 (08:55→20:52)
[2022-01-24] MEDS: METAXALONE 800 MG TABLET PO SCH ×3 (08:56→20:50)
[2022-01-24] MEDS: MULTIVITAMINS/MINERALS THERAP 1 TAB PO SCH (08:56)
[2022-01-24] MEDS: PREGABALIN 100 MG CAP (LYRICA) PO SCH ×3 (08:56→20:50)
[2022-01-24] MEDS: oxyCODONE 20 MG CR TAB PO SCH ×2 (08:56→20:50)
[2022-01-24] MEDS: FERROUS SULFATE 300MG/5ML UDC LIQUID PO SCH (09:21)
[2022-01-24] MEDS: oxyCODONE 5MG TAB PO PRN (14:15)
[2022-01-24] MEDS: ERTAPENEM SODIUM 1 GM in NS MINI-BAG PLUS 50 ML IV SCH (14:35)
[2022-01-24] MEDS: traZODone 100 MG TAB PO SCH (20:49)
[2022-01-24] MEDS: METOPROLOL SUCC *XL* 25MG TAB (TopROL *XL*) PO SCH (20:49)
[2022-01-24] MEDS: PANTOPRAZOLE 40MG TAB (PROTONIX) PO SCH (20:49)
[2022-01-24] MEDS: PRAVASTATIN 20 MG TAB PO SCH (20:51)
[2022-01-24] MEDS: ASPIRIN 81MG ENTERIC TABLET PO SCH (20:51)
[2022-01-24] MEDS: AMITRIPTYLINE 10MG TABLET PO SCH (20:51)
[2022-01-24] MEDS: SODIUM CHLORIDE 0.9% INJ 10 ML SYR IV PRN (23:51)
[2022-01-25 06:00] VITALS: BP 141/65
[2022-01-25] MEDS: LEVOTHYROXINE 50MCG TABLET (0.05MG) PO SCH (06:03)
[2022-01-25] MEDS: HYDROmorphone 2 MG TAB PO PRN (06:03)
[2022-01-25] MEDS: SODIUM CHLORIDE 0.9% INJ 10 ML SYR IV SCH ×2 (06:04→16:25)
[2022-01-25 07:08] LABS: BLOOD UREA NITROGEN 10 MG/DL (7-18); C REACTIVE PROTEIN QUANTITATIV 0.78 MG/DL (0.00-0.30); CALCIUM LEVEL 8.1 MG/DL (8.8-10.2); CARBON DIOXIDE LEVEL 25 MEQ/L (21-32); CHLORIDE LEVEL 109 MEQ/L (98-107); CREATININE FOR GFR 0.95 MG/DL (0.55-1.30); GLOMERULAR FILTRATION RATE > 60.0 (>39); GLUCOSE, FASTING 114 MG/DL (70-100); MAGNESIUM LEVEL 1.8 MG/DL (1.8-2.4); POTASSIUM SERUM 3.5 MEQ/L (3.5-5.1); SODIUM LEVEL 140 MEQ/L (136-145)
[2022-01-25 07:10] LABS: BASO % 0.2 % (0.0-1.0); EOS # 0.1 10^3/uL (0.0-0.5); EOS % 2.6 % (0.0-3.0); HEMATOCRIT 31.2 % (36.0-47.0); HEMOGLOBIN 10.2 g/dl (12.0-15.5); LYMPH # 1.7 10^3/uL (1.5-5.0); LYMPH % 41.6 % (24.0-44.0); MEAN CORPUSCULAR HEMOGLOBIN 31.5 pg (27.0-33.0); MEAN CORPUSCULAR HGB CONC 32.7 g/dl (32.0-36.5); MEAN CORPUSCULAR VOLUME 96.3 fl (80.0-96.0); MONO # 0.4 10^3/uL (0.0-0.8); MONO % 10.6 % (2.0-8.0); NEUTROPHILS # 1.9 10^3/uL (1.5-8.5); NEUTROPHILS % 44.5 % (36.0-66.0); PLATELET COUNT, AUTOMATED 199 10^3/uL (150-450); RED BLOOD COUNT 3.24 10^6/uL (4.00-5.40); WHITE BLOOD COUNT 4.2 10^3/uL (4.0-10.0)
[2022-01-25] MEDS: rOPINIRole 1MG TAB PO SCH ×2 (10:06→21:07)
[2022-01-25] MEDS: PREGABALIN 100 MG CAP (LYRICA) PO SCH ×3 (10:06→21:08)
[2022-01-25] MEDS: DOCUSATE SODIUM 100MG CAPSULE PO SCH ×2 (10:06→21:08)
[2022-01-25] MEDS: MULTIVITAMINS/MINERALS THERAP 1 TAB PO SCH (10:06)
[2022-01-25] MEDS: FERROUS SULFATE 300MG/5ML UDC LIQUID PO SCH (10:06)
[2022-01-25] MEDS: METAXALONE 800 MG TABLET PO SCH ×3 (10:08→21:07)
[2022-01-25] MEDS: oxyCODONE 20 MG CR TAB PO SCH ×2 (10:08→21:09)
[2022-01-25] MEDS: ERTAPENEM SODIUM 1 GM in NS MINI-BAG PLUS 50 ML IV SCH (16:23)
[2022-01-25] MEDS: oxyCODONE 5MG TAB PO PRN (16:30)
[2022-01-25] MEDS: traZODone 100 MG TAB PO SCH (21:07)
[2022-01-25] MEDS: ASPIRIN 81MG ENTERIC TABLET PO SCH (21:07)
[2022-01-25] MEDS: VANCOMYCIN HCL 750 MG, VIAL MATE ADAPTER 1 EACH in NS 250 ML IV SCH ×2 (21:07→22:29)
[2022-01-25] MEDS: PRAVASTATIN 20 MG TAB PO SCH (21:08)
[2022-01-25] MEDS: PANTOPRAZOLE 40MG TAB (PROTONIX) PO SCH (21:08)
[2022-01-25] MEDS: METOPROLOL SUCC *XL* 25MG TAB (TopROL *XL*) PO SCH (21:11)
[2022-01-25] MEDS: AMITRIPTYLINE 10MG TABLET PO SCH (21:20)
[2022-01-26 05:18] VITALS: BP 139/57
[2022-01-26] MEDS: LEVOTHYROXINE 50MCG TABLET (0.05MG) PO SCH (06:03)
[2022-01-26] MEDS: oxyCODONE 5MG TAB PO PRN (06:05)
[2022-01-26] MEDS: SODIUM CHLORIDE 0.9% INJ 10 ML SYR IV SCH ×2 (06:06→16:57)
[2022-01-26 06:47] LABS: BASO % 0.6 % (0.0-1.0); EOS # 0.1 10^3/uL (0.0-0.5); EOS % 2.2 % (0.0-3.0); HEMATOCRIT 29.1 % (36.0-47.0); HEMOGLOBIN 9.4 g/dl (12.0-15.5); LYMPH # 1.4 10^3/uL (1.5-5.0); LYMPH % 44.4 % (24.0-44.0); MEAN CORPUSCULAR HEMOGLOBIN 31.5 pg (27.0-33.0); MEAN CORPUSCULAR HGB CONC 32.3 g/dl (32.0-36.5); MEAN CORPUSCULAR VOLUME 97.7 fl (80.0-96.0); MONO # 0.3 10^3/uL (0.0-0.8); MONO % 8.6 % (2.0-8.0); NEUTROPHILS # 1.4 10^3/uL (1.5-8.5); NEUTROPHILS % 43.9 % (36.0-66.0); PLATELET COUNT, AUTOMATED 174 10^3/uL (150-450); RED BLOOD COUNT 2.98 10^6/uL (4.00-5.40); WHITE BLOOD COUNT 3.2 10^3/uL (4.0-10.0)
[2022-01-26 07:12] LABS: BLOOD UREA NITROGEN 10 MG/DL (7-18); CALCIUM LEVEL 8.2 MG/DL (8.8-10.2); CARBON DIOXIDE LEVEL 26 MEQ/L (21-32); CHLORIDE LEVEL 110 MEQ/L (98-107); CREATININE FOR GFR 0.92 MG/DL (0.55-1.30); GLOMERULAR FILTRATION RATE > 60.0 (>39); GLUCOSE, FASTING 171 MG/DL (70-100); MAGNESIUM LEVEL 1.8 MG/DL (1.8-2.4); POTASSIUM SERUM 3.5 MEQ/L (3.5-5.1); SODIUM LEVEL 142 MEQ/L (136-145)
[2022-01-26] MEDS: FERROUS SULFATE 300MG/5ML UDC LIQUID PO SCH ×2 (09:00→09:36)
[2022-01-26] MEDS: DOCUSATE SODIUM 100MG CAPSULE PO SCH ×2 (09:00→21:01)
[2022-01-26] MEDS: rOPINIRole 1MG TAB PO SCH ×2 (09:36→21:02)
[2022-01-26] MEDS: PREGABALIN 100 MG CAP (LYRICA) PO SCH ×3 (09:37→21:02)
[2022-01-26] MEDS: MULTIVITAMINS/MINERALS THERAP 1 TAB PO SCH (09:37)
[2022-01-26] MEDS: METAXALONE 800 MG TABLET PO SCH ×3 (09:37→21:01)
[2022-01-26] MEDS: oxyCODONE 20 MG CR TAB PO SCH ×2 (09:38→21:02)
[2022-01-26 15:26] LABS: HEMATOCRIT 31.4 % (36.0-47.0); HEMOGLOBIN 10.3 g/dl (12.0-15.5)
[2022-01-26] MEDS: ERTAPENEM SODIUM 1 GM in NS MINI-BAG PLUS 50 ML IV SCH (16:04)
[2022-01-26] MEDS: HYDROmorphone 2 MG TAB PO PRN (16:08)
[2022-01-26] MEDS: VANCOMYCIN HCL 750 MG, VIAL MATE ADAPTER 1 EACH in NS 250 ML IV SCH ×2 (20:14→21:25)
[2022-01-26] MEDS: METOPROLOL SUCC *XL* 25MG TAB (TopROL *XL*) PO SCH (21:00)
[2022-01-26] MEDS: PRAVASTATIN 20 MG TAB PO SCH (21:01)
[2022-01-26] MEDS: AMITRIPTYLINE 10MG TABLET PO SCH (21:02)
[2022-01-26] MEDS: traZODone 100 MG TAB PO SCH (21:02)
[2022-01-26] MEDS: PANTOPRAZOLE 40MG TAB (PROTONIX) PO SCH (21:02)
[2022-01-27] MEDS: SODIUM CHLORIDE 0.9% INJ 10 ML SYR IV SCH ×2 (05:34→16:44)
[2022-01-27] MEDS: LEVOTHYROXINE 50MCG TABLET (0.05MG) PO SCH (05:35)
[2022-01-27 06:32] LABS: BASO % 0.3 % (0.0-1.0); EOS # 0.1 10^3/uL (0.0-0.5); EOS % 2.9 % (0.0-3.0); HEMATOCRIT 30.4 % (36.0-47.0); HEMOGLOBIN 9.9 g/dl (12.0-15.5); LYMPH # 1.5 10^3/uL (1.5-5.0); MEAN CORPUSCULAR HEMOGLOBIN 31.6 pg (27.0-33.0); MEAN CORPUSCULAR HGB CONC 32.6 g/dl (32.0-36.5); MEAN CORPUSCULAR VOLUME 97.1 fl (80.0-96.0); MONO # 0.4 10^3/uL (0.0-0.8); MONO % 9.2 % (2.0-8.0); NEUTROPHILS # 1.8 10^3/uL (1.5-8.5); NEUTROPHILS % 47.3 % (36.0-66.0); PLATELET COUNT, AUTOMATED 195 10^3/uL (150-450); RED BLOOD COUNT 3.13 10^6/uL (4.00-5.40); WHITE BLOOD COUNT 3.8 10^3/uL (4.0-10.0)
[2022-01-27 07:01] LABS: ALBUMIN 2.7 GM/DL (3.2-5.2); ALT/SGPT 12 U/L (12-78); BILIRUBIN,TOTAL 0.3 MG/DL (0.2-1.0); BLOOD UREA NITROGEN 10 MG/DL (7-18); CALCIUM LEVEL 8.8 MG/DL (8.8-10.2); CARBON DIOXIDE LEVEL 28 MEQ/L (21-32); CHLORIDE LEVEL 109 MEQ/L (98-107); CREATININE FOR GFR 0.86 MG/DL (0.55-1.30); GLOMERULAR FILTRATION RATE > 60.0 (>39); GLUCOSE, FASTING 98 MG/DL (70-100); MAGNESIUM LEVEL 1.8 MG/DL (1.8-2.4); SODIUM LEVEL 142 MEQ/L (136-145); TOTAL PROTEIN 6.3 GM/DL (6.4-8.2)
[2022-01-27] MEDS ORDERED: LR 1,000 ML IV SCH (07:35)
[2022-01-27] MEDS: FERROUS SULFATE 300MG/5ML UDC LIQUID PO SCH (08:03)
[2022-01-27] MEDS: METAXALONE 800 MG TABLET PO SCH ×3 (08:03→21:15)
[2022-01-27] MEDS: MULTIVITAMINS/MINERALS THERAP 1 TAB PO SCH (08:03)
[2022-01-27] MEDS: DOCUSATE SODIUM 100MG CAPSULE PO SCH ×2 (08:03→21:15)
[2022-01-27] MEDS: rOPINIRole 1MG TAB PO SCH ×2 (08:04→21:15)
[2022-01-27] MEDS: PREGABALIN 100 MG CAP (LYRICA) PO SCH ×3 (08:04→21:15)
[2022-01-27] MEDS: oxyCODONE 20 MG CR TAB PO SCH ×2 (08:06→21:14)
[2022-01-27 14:00] VITALS: BP_SYST 135; BP_SYST 177; BP_DIAS 62; BP_DIAS 79
[2022-01-27] MEDS: ERTAPENEM SODIUM 1 GM in NS MINI-BAG PLUS 50 ML IV SCH (15:50)
[2022-01-27] MEDS: HYDROmorphone 2 MG TAB PO PRN (15:54)
[2022-01-27] MEDS: AMITRIPTYLINE 10MG TABLET PO SCH (21:13)
[2022-01-27] MEDS: traZODone 100 MG TAB PO SCH (21:14)
[2022-01-27] MEDS: PANTOPRAZOLE 40MG TAB (PROTONIX) PO SCH (21:15)
[2022-01-27] MEDS: PRAVASTATIN 20 MG TAB PO SCH (21:15)
[2022-01-27] MEDS: VANCOMYCIN HCL 750 MG, VIAL MATE ADAPTER 1 EACH in NS 250 ML IV SCH ×2 (21:19→22:16)
[2022-01-27] MEDS: METOPROLOL SUCC *XL* 25MG TAB (TopROL *XL*) PO SCH (21:19)
[2022-01-27 22:00] VITALS: BP 118/78
[2022-01-28 05:24] VITALS: BP 140/61
[2022-01-28] MEDS: LEVOTHYROXINE 50MCG TABLET (0.05MG) PO SCH (05:27)
[2022-01-28] MEDS: SODIUM CHLORIDE 0.9% INJ 10 ML SYR IV SCH ×2 (05:27→16:56)
[2022-01-28 08:15] LABS: BASO % 0.3 % (0.0-1.0); EOS # 0.1 10^3/uL (0.0-0.5); EOS % 2.4 % (0.0-3.0); HEMATOCRIT 30.5 % (36.0-47.0); HEMOGLOBIN 9.9 g/dl (12.0-15.5); LYMPH # 1.5 10^3/uL (1.5-5.0); LYMPH % 46.2 % (24.0-44.0); MEAN CORPUSCULAR HEMOGLOBIN 31.1 pg (27.0-33.0); MEAN CORPUSCULAR HGB CONC 32.5 g/dl (32.0-36.5); MEAN CORPUSCULAR VOLUME 95.9 fl (80.0-96.0); MONO # 0.3 10^3/uL (0.0-0.8); MONO % 8.1 % (2.0-8.0); NEUTROPHILS # 1.4 10^3/uL (1.5-8.5); NEUTROPHILS % 42.7 % (36.0-66.0); PLATELET COUNT, AUTOMATED 179 10^3/uL (150-450); RED BLOOD COUNT 3.18 10^6/uL (4.00-5.40); WHITE BLOOD COUNT 3.3 10^3/uL (4.0-10.0)
[2022-01-28 08:35] LABS: BLOOD UREA NITROGEN 10 MG/DL (7-18); CALCIUM LEVEL 8.7 MG/DL (8.8-10.2); CARBON DIOXIDE LEVEL 27 MEQ/L (21-32); CHLORIDE LEVEL 109 MEQ/L (98-107); CREATININE FOR GFR 0.89 MG/DL (0.55-1.30); GLOMERULAR FILTRATION RATE > 60.0 (>39); GLUCOSE, FASTING 102 MG/DL (70-100); MAGNESIUM LEVEL 1.9 MG/DL (1.8-2.4); POTASSIUM SERUM 3.7 MEQ/L (3.5-5.1); SODIUM LEVEL 143 MEQ/L (136-145)
[2022-01-28] MEDS: FERROUS SULFATE 300MG/5ML UDC LIQUID PO SCH ×2 (09:00→09:10)
[2022-01-28] MEDS: DOCUSATE SODIUM 100MG CAPSULE PO SCH ×2 (09:10→21:31)
[2022-01-28] MEDS: METAXALONE 800 MG TABLET PO SCH ×3 (09:10→21:31)
[2022-01-28] MEDS: MULTIVITAMINS/MINERALS THERAP 1 TAB PO SCH (09:10)
[2022-01-28] MEDS: PREGABALIN 100 MG CAP (LYRICA) PO SCH ×3 (09:11→21:31)
[2022-01-28] MEDS: rOPINIRole 1MG TAB PO SCH ×2 (09:11→21:31)
[2022-01-28] MEDS: oxyCODONE 20 MG CR TAB PO SCH ×2 (09:13→21:31)
[2022-01-28] MEDS: FERROUS SULFATE 325MG TAB PO SCH (09:42)
[2022-01-28] MEDS: HYDROmorphone 2 MG TAB PO PRN ×2 (12:10→18:18)
[2022-01-28 14:00] VITALS: BP 124/55
[2022-01-28] MEDS: ERTAPENEM SODIUM 1 GM in NS MINI-BAG PLUS 50 ML IV SCH (16:03)
[2022-01-28] MEDS: VANCOMYCIN HCL 750 MG, VIAL MATE ADAPTER 1 EACH in NS 250 ML IV SCH ×2 (21:30→23:00)
[2022-01-28] MEDS: PRAVASTATIN 20 MG TAB PO SCH (21:31)
[2022-01-28] MEDS: PANTOPRAZOLE 40MG TAB (PROTONIX) PO SCH (21:31)
[2022-01-28] MEDS: AMITRIPTYLINE 10MG TABLET PO SCH (21:31)
[2022-01-28] MEDS: traZODone 100 MG TAB PO SCH (21:31)
[2022-01-28] MEDS: METOPROLOL SUCC *XL* 25MG TAB (TopROL *XL*) PO SCH (21:52)
[2022-01-28 22:00] VITALS: BP 126/55
[2022-01-29] MEDS: SODIUM CHLORIDE 0.9% INJ 10 ML SYR IV PRN (00:30)
[2022-01-29] MEDS: HYDROmorphone 2 MG TAB PO PRN ×2 (04:46→16:05)
[2022-01-29] MEDS: SODIUM CHLORIDE 0.9% INJ 10 ML SYR IV SCH ×2 (05:19→17:03)
[2022-01-29] MEDS: LEVOTHYROXINE 50MCG TABLET (0.05MG) PO SCH (05:19)
[2022-01-29 06:00] VITALS: BP 138/66
[2022-01-29 06:28] LABS: BASO % 0.6 % (0.0-1.0); EOS # 0.1 10^3/uL (0.0-0.5); EOS % 2.7 % (0.0-3.0); HEMATOCRIT 30.9 % (36.0-47.0); HEMOGLOBIN 10.2 g/dl (12.0-15.5); LYMPH # 1.6 10^3/uL (1.5-5.0); LYMPH % 48.2 % (24.0-44.0); MEAN CORPUSCULAR HEMOGLOBIN 32.6 pg (27.0-33.0); MEAN CORPUSCULAR VOLUME 98.7 fl (80.0-96.0); MONO # 0.3 10^3/uL (0.0-0.8); MONO % 8.6 % (2.0-8.0); NEUTROPHILS # 1.3 10^3/uL (1.5-8.5); NEUTROPHILS % 39.6 % (36.0-66.0); PLATELET COUNT, AUTOMATED 193 10^3/uL (150-450); RED BLOOD COUNT 3.13 10^6/uL (4.00-5.40); WHITE BLOOD COUNT 3.4 10^3/uL (4.0-10.0)
[2022-01-29 07:06] LABS: CALCIUM LEVEL 8.5 MG/DL (8.8-10.2); CREATININE FOR GFR 0.99 MG/DL (0.55-1.30); GLOMERULAR FILTRATION RATE 57.9 (>39); MAGNESIUM LEVEL 1.9 MG/DL (1.8-2.4); POTASSIUM SERUM 3.8 MEQ/L (3.5-5.1)
[2022-01-29] MEDS: rOPINIRole 1MG TAB PO SCH ×2 (09:13→20:20)
[2022-01-29] MEDS: oxyCODONE 20 MG CR TAB PO SCH ×2 (09:13→20:21)
[2022-01-29] MEDS: FERROUS SULFATE 325MG TAB PO SCH (09:13)
[2022-01-29] MEDS: DOCUSATE SODIUM 100MG CAPSULE PO SCH ×2 (09:13→20:20)
[2022-01-29] MEDS: METAXALONE 800 MG TABLET PO SCH ×3 (09:14→20:20)
[2022-01-29] MEDS: PREGABALIN 100 MG CAP (LYRICA) PO SCH ×3 (09:14→20:20)
[2022-01-29] MEDS: MULTIVITAMINS/MINERALS THERAP 1 TAB PO SCH (09:14)
[2022-01-29 14:00] VITALS: BP 161/59
[2022-01-29] MEDS: ERTAPENEM SODIUM 1 GM in NS MINI-BAG PLUS 50 ML IV SCH (16:04)
[2022-01-29 19:43] VITALS: BP 124/46
[2022-01-29] MEDS: traZODone 100 MG TAB PO SCH (20:19)
[2022-01-29] MEDS: AMITRIPTYLINE 10MG TABLET PO SCH (20:19)
[2022-01-29] MEDS: VANCOMYCIN HCL 750 MG, VIAL MATE ADAPTER 1 EACH in NS 250 ML IV SCH ×2 (20:20→21:44)
[2022-01-29] MEDS: PANTOPRAZOLE 40MG TAB (PROTONIX) PO SCH (20:20)
[2022-01-29] MEDS: PRAVASTATIN 20 MG TAB PO SCH (20:20)
[2022-01-29] MEDS: METOPROLOL SUCC *XL* 25MG TAB (TopROL *XL*) PO SCH (20:21)
[2022-01-30] MEDS: LEVOTHYROXINE 50MCG TABLET (0.05MG) PO SCH (05:06)
[2022-01-30] MEDS: SODIUM CHLORIDE 0.9% INJ 10 ML SYR IV SCH ×2 (05:06→16:29)
[2022-01-30 05:21] VITALS: BP 104/48
[2022-01-30 06:21] LABS: BASO % 0.7 % (0.0-1.0); EOS # 0.1 10^3/uL (0.0-0.5); EOS % 2.8 % (0.0-3.0); HEMATOCRIT 29.7 % (36.0-47.0); HEMOGLOBIN 9.7 g/dl (12.0-15.5); LYMPH # 1.3 10^3/uL (1.5-5.0); LYMPH % 45.8 % (24.0-44.0); MEAN CORPUSCULAR HEMOGLOBIN 32.1 pg (27.0-33.0); MEAN CORPUSCULAR HGB CONC 32.7 g/dl (32.0-36.5); MEAN CORPUSCULAR VOLUME 98.3 fl (80.0-96.0); MONO # 0.3 10^3/uL (0.0-0.8); NEUTROPHILS # 1.2 10^3/uL (1.5-8.5); NEUTROPHILS % 41.4 % (36.0-66.0); PLATELET COUNT, AUTOMATED 169 10^3/uL (150-450); RED BLOOD COUNT 3.02 10^6/uL (4.00-5.40); WHITE BLOOD COUNT 2.9 10^3/uL (4.0-10.0)
[2022-01-30 06:41] LABS: BLOOD UREA NITROGEN 11 MG/DL (7-18); CALCIUM LEVEL 8.6 MG/DL (8.8-10.2); CARBON DIOXIDE LEVEL 25 MEQ/L (21-32); CHLORIDE LEVEL 109 MEQ/L (98-107); CREATININE FOR GFR 0.93 MG/DL (0.55-1.30); GLOMERULAR FILTRATION RATE > 60.0 (>39); GLUCOSE, FASTING 151 MG/DL (70-100); MAGNESIUM LEVEL 1.8 MG/DL (1.8-2.4); POTASSIUM SERUM 3.6 MEQ/L (3.5-5.1); SODIUM LEVEL 141 MEQ/L (136-145)
[2022-01-30] MEDS: FERROUS SULFATE 325MG TAB PO SCH (09:06)
[2022-01-30] MEDS: METAXALONE 800 MG TABLET PO SCH ×3 (09:06→20:16)
[2022-01-30] MEDS: rOPINIRole 1MG TAB PO SCH ×2 (09:06→20:17)
[2022-01-30] MEDS: DOCUSATE SODIUM 100MG CAPSULE PO SCH ×2 (09:06→20:17)
[2022-01-30] MEDS: PREGABALIN 100 MG CAP (LYRICA) PO SCH ×3 (09:06→20:17)
[2022-01-30] MEDS: MULTIVITAMINS/MINERALS THERAP 1 TAB PO SCH (09:06)
[2022-01-30] MEDS: oxyCODONE 20 MG CR TAB PO SCH ×2 (09:07→20:16)
[2022-01-30 11:45] LABS: INR 0.95; PROTHROMBIN TIME 13.1 SECONDS (12.7-14.5)
[2022-01-30 14:00] VITALS: BP 156/72
[2022-01-30] MEDS: ERTAPENEM SODIUM 1 GM in NS MINI-BAG PLUS 50 ML IV SCH (15:41)
[2022-01-30] MEDS: HYDROmorphone 2 MG TAB PO PRN (15:42)
[2022-01-30] MEDS: METOPROLOL SUCC *XL* 25MG TAB (TopROL *XL*) PO SCH (20:17)
[2022-01-30] MEDS: PANTOPRAZOLE 40MG TAB (PROTONIX) PO SCH (20:17)
[2022-01-30] MEDS: PRAVASTATIN 20 MG TAB PO SCH (20:17)
[2022-01-30] MEDS: traZODone 100 MG TAB PO SCH (20:17)
[2022-01-30] MEDS: AMITRIPTYLINE 10MG TABLET PO SCH (20:21)
[2022-01-30 20:24] VITALS: BP 151/66
[2022-01-30] MEDS: VANCOMYCIN HCL 750 MG, VIAL MATE ADAPTER 1 EACH in NS 250 ML IV SCH ×2 (20:27→21:50)
[2022-01-31] MEDS: SODIUM CHLORIDE 0.9% INJ 10 ML SYR IV SCH ×2 (05:00→16:57)
[2022-01-31] MEDS: LEVOTHYROXINE 50MCG TABLET (0.05MG) PO SCH (05:01)
[2022-01-31 05:35] VITALS: BP 145/63
[2022-01-31 07:09] LABS: BASO % 0.6 % (0.0-1.0); EOS # 0.1 10^3/uL (0.0-0.5); EOS % 2.9 % (0.0-3.0); HEMATOCRIT 29.4 % (36.0-47.0); HEMOGLOBIN 9.3 g/dl (12.0-15.5); LYMPH # 1.5 10^3/uL (1.5-5.0); LYMPH % 44.1 % (24.0-44.0); MEAN CORPUSCULAR HEMOGLOBIN 31.1 pg (27.0-33.0); MEAN CORPUSCULAR HGB CONC 31.6 g/dl (32.0-36.5); MEAN CORPUSCULAR VOLUME 98.3 fl (80.0-96.0); MONO # 0.3 10^3/uL (0.0-0.8); MONO % 9.4 % (2.0-8.0); NEUTROPHILS # 1.5 10^3/uL (1.5-8.5); NEUTROPHILS % 42.7 % (36.0-66.0); PLATELET COUNT, AUTOMATED 172 10^3/uL (150-450); RED BLOOD COUNT 2.99 10^6/uL (4.00-5.40); WHITE BLOOD COUNT 3.4 10^3/uL (4.0-10.0)
[2022-01-31 07:28] LABS: BLOOD UREA NITROGEN 10 MG/DL (7-18); CALCIUM LEVEL 8.3 MG/DL (8.8-10.2); CARBON DIOXIDE LEVEL 25 MEQ/L (21-32); CHLORIDE LEVEL 110 MEQ/L (98-107); CREATININE FOR GFR 0.93 MG/DL (0.55-1.30); GLOMERULAR FILTRATION RATE > 60.0 (>39); GLUCOSE, FASTING 149 MG/DL (70-100); MAGNESIUM LEVEL 1.8 MG/DL (1.8-2.4); POTASSIUM SERUM 3.2 MEQ/L (3.5-5.1); SODIUM LEVEL 142 MEQ/L (136-145)
[2022-01-31] MEDS: FERROUS SULFATE 325MG TAB PO SCH (08:56)
[2022-01-31] MEDS: METAXALONE 800 MG TABLET PO SCH ×3 (08:56→20:24)
[2022-01-31] MEDS: MULTIVITAMINS/MINERALS THERAP 1 TAB PO SCH (08:56)
[2022-01-31] MEDS: rOPINIRole 1MG TAB PO SCH ×2 (08:56→20:24)
[2022-01-31] MEDS: PREGABALIN 100 MG CAP (LYRICA) PO SCH ×3 (08:57→20:24)
[2022-01-31] MEDS: oxyCODONE 20 MG CR TAB PO SCH ×2 (08:57→20:24)
[2022-01-31] MEDS: DOCUSATE SODIUM 100MG CAPSULE PO SCH ×2 (08:57→20:24)
[2022-01-31] MEDS ORDERED: POTASSIUM CHLORIDE 10MEQ SR TABLET PO ONE (09:00)
[2022-01-31 14:00] VITALS: BP 167/56
[2022-01-31] MEDS: ERTAPENEM SODIUM 1 GM in NS MINI-BAG PLUS 50 ML IV SCH (16:06)
[2022-01-31 20:20] VITALS: BP 164/57
[2022-01-31] MEDS: PRAVASTATIN 20 MG TAB PO SCH (20:23)
[2022-01-31] MEDS: AMITRIPTYLINE 10MG TABLET PO SCH (20:24)
[2022-01-31] MEDS: traZODone 100 MG TAB PO SCH (20:24)
[2022-01-31] MEDS: METOPROLOL SUCC *XL* 25MG TAB (TopROL *XL*) PO SCH (20:24)
[2022-01-31] MEDS: VANCOMYCIN HCL 750 MG, VIAL MATE ADAPTER 1 EACH in NS 250 ML IV SCH ×2 (20:25→21:46)
[2022-01-31] MEDS: PANTOPRAZOLE 40MG TAB (PROTONIX) PO SCH (20:25)
[2022-02-01 04:35] VITALS: BP 116/53
[2022-02-01] MEDS: SODIUM CHLORIDE 0.9% INJ 10 ML SYR IV SCH ×2 (05:01→16:54)
[2022-02-01] MEDS: LEVOTHYROXINE 50MCG TABLET (0.05MG) PO SCH (05:01)
[2022-02-01 06:27] LABS: BASO % 0.6 % (0.0-1.0); EOS # 0.1 10^3/uL (0.0-0.5); EOS % 2.8 % (0.0-3.0); HEMATOCRIT 30.1 % (36.0-47.0); HEMOGLOBIN 9.8 g/dl (12.0-15.5); LYMPH # 1.6 10^3/uL (1.5-5.0); LYMPH % 48.9 % (24.0-44.0); MEAN CORPUSCULAR HEMOGLOBIN 32.3 pg (27.0-33.0); MEAN CORPUSCULAR HGB CONC 32.6 g/dl (32.0-36.5); MEAN CORPUSCULAR VOLUME 99.3 fl (80.0-96.0); MONO # 0.3 10^3/uL (0.0-0.8); NEUTROPHILS # 1.3 10^3/uL (1.5-8.5); NEUTROPHILS % 39.4 % (36.0-66.0); PLATELET COUNT, AUTOMATED 180 10^3/uL (150-450); RED BLOOD COUNT 3.03 10^6/uL (4.00-5.40); WHITE BLOOD COUNT 3.2 10^3/uL (4.0-10.0)
[2022-02-01 07:00] LABS: BLOOD UREA NITROGEN 9 MG/DL (7-18); CALCIUM LEVEL 8.7 MG/DL (8.8-10.2); CARBON DIOXIDE LEVEL 25 MEQ/L (21-32); CHLORIDE LEVEL 111 MEQ/L (98-107); CREATININE FOR GFR 0.85 MG/DL (0.55-1.30); GLOMERULAR FILTRATION RATE > 60.0 (>39); GLUCOSE, FASTING 94 MG/DL (70-100); MAGNESIUM LEVEL 1.9 MG/DL (1.8-2.4); POTASSIUM SERUM 4.1 MEQ/L (3.5-5.1); SODIUM LEVEL 144 MEQ/L (136-145)
[2022-02-01] MEDS: rOPINIRole 1MG TAB PO SCH ×2 (08:43→20:33)
[2022-02-01] MEDS: oxyCODONE 20 MG CR TAB PO SCH ×2 (08:43→20:34)
[2022-02-01] MEDS: METAXALONE 800 MG TABLET PO SCH ×3 (08:43→20:33)
[2022-02-01] MEDS: DOCUSATE SODIUM 100MG CAPSULE PO SCH ×2 (08:43→20:33)
[2022-02-01] MEDS: FERROUS SULFATE 325MG TAB PO SCH (08:44)
[2022-02-01] MEDS: MULTIVITAMINS/MINERALS THERAP 1 TAB PO SCH (08:44)
[2022-02-01] MEDS: PREGABALIN 100 MG CAP (LYRICA) PO SCH ×3 (08:44→20:33)
[2022-02-01 14:00] VITALS: BP 150/70
[2022-02-01] MEDS: ERTAPENEM SODIUM 1 GM in NS MINI-BAG PLUS 50 ML IV SCH (15:56)
[2022-02-01] MEDS: VANCOMYCIN HCL 750 MG, VIAL MATE ADAPTER 1 EACH in NS 250 ML IV SCH ×2 (20:15→21:46)
[2022-02-01] MEDS: METOPROLOL SUCC *XL* 25MG TAB (TopROL *XL*) PO SCH (20:25)
[2022-02-01] MEDS: traZODone 100 MG TAB PO SCH (20:33)
[2022-02-01] MEDS: PRAVASTATIN 20 MG TAB PO SCH (20:33)
[2022-02-01] MEDS: AMITRIPTYLINE 10MG TABLET PO SCH (20:33)
[2022-02-01] MEDS: PANTOPRAZOLE 40MG TAB (PROTONIX) PO SCH (20:33)
[2022-02-01 21:27] VITALS: BP 153/55
[2022-02-01] MEDS: SODIUM CHLORIDE 0.9% INJ 10 ML SYR IV PRN ×2 (21:46→22:26)
[2022-02-02] MEDS: LEVOTHYROXINE 50MCG TABLET (0.05MG) PO SCH (05:34)
[2022-02-02 05:43] LABS: BASO % 0.3 % (0.0-1.0); EOS # 0.1 10^3/uL (0.0-0.5); EOS % 2.1 % (0.0-3.0); HEMATOCRIT 30.3 % (36.0-47.0); HEMOGLOBIN 9.9 g/dl (12.0-15.5); LYMPH # 1.5 10^3/uL (1.5-5.0); LYMPH % 43.8 % (24.0-44.0); MEAN CORPUSCULAR HEMOGLOBIN 31.7 pg (27.0-33.0); MEAN CORPUSCULAR HGB CONC 32.7 g/dl (32.0-36.5); MEAN CORPUSCULAR VOLUME 97.1 fl (80.0-96.0); MONO # 0.2 10^3/uL (0.0-0.8); MONO % 6.8 % (2.0-8.0); NEUTROPHILS # 1.6 10^3/uL (1.5-8.5); NEUTROPHILS % 46.7 % (36.0-66.0); PLATELET COUNT, AUTOMATED 192 10^3/uL (150-450); RED BLOOD COUNT 3.12 10^6/uL (4.00-5.40); WHITE BLOOD COUNT 3.4 10^3/uL (4.0-10.0)
[2022-02-02 06:00] VITALS: BP 160/62
[2022-02-02 06:04] LABS: BLOOD UREA NITROGEN 9 MG/DL (7-18); CALCIUM LEVEL 8.3 MG/DL (8.8-10.2); CARBON DIOXIDE LEVEL 27 MEQ/L (21-32); CHLORIDE LEVEL 111 MEQ/L (98-107); CREATININE FOR GFR 0.86 MG/DL (0.55-1.30); GLOMERULAR FILTRATION RATE > 60.0 (>39); GLUCOSE, FASTING 97 MG/DL (70-100); MAGNESIUM LEVEL 1.8 MG/DL (1.8-2.4); POTASSIUM SERUM 4.3 MEQ/L (3.5-5.1); SODIUM LEVEL 143 MEQ/L (136-145)
[2022-02-02] MEDS: SODIUM CHLORIDE 0.9% INJ 10 ML SYR IV SCH (06:24)
[2022-02-02] MEDS: ERTAPENEM SODIUM 1 GM in NS MINI-BAG PLUS 50 ML IV SCH (08:18)
[2022-02-02] MEDS ORDERED: COLA100C5 PO (08:28)
[2022-02-02] MEDS: VANCOMYCIN HCL 750 MG, VIAL MATE ADAPTER 1 EACH in NS 250 ML IV SCH ×2 (09:08→10:11)
[2022-02-02] MEDS: METAXALONE 800 MG TABLET PO SCH (09:11)
[2022-02-02] MEDS: MULTIVITAMINS/MINERALS THERAP 1 TAB PO SCH (09:12)
[2022-02-02] MEDS: rOPINIRole 1MG TAB PO SCH (09:12)
[2022-02-02] MEDS: DOCUSATE SODIUM 100MG CAPSULE PO SCH (09:12)
[2022-02-02] MEDS: PREGABALIN 100 MG CAP (LYRICA) PO SCH (09:12)
[2022-02-02] MEDS: FERROUS SULFATE 325MG TAB PO SCH (09:12)
[2022-02-02] MEDS: oxyCODONE 20 MG CR TAB PO SCH (09:12)
[2022-02-02 09:13] VITALS: BP 127/90
== END 2022-02-02 11:38 | disposition home health service (06) | DRG 690 ==
LOC: M ED 10:46 → M ED INP 18:26 → ENRESERV 21:49 → M PCU 01-20 00:06 → M MSPAV 01-24 22:51
PROVIDERS: ADMIT Internal Medicine; ATTEND Internal Medicine
PROC: 02HV33Z Insertion of Infusion Device into Superior Vena Cava, Percutaneous Approach (ICD-10-PCS; principal; 2022-01-21)
PROC: 30233N1 Transfusion of Nonautologous Red Blood Cells into Peripheral Vein, Percutaneous Approach (ICD-10-PCS; 2022-01-23)
DX: N13.6 Pyonephrosis (principal); I50.32 Chronic diastolic (congestive) heart failure; I13.0 Hypertensive heart and chronic kidney disease with heart failure and stage 1 through stage 4 chronic kidney disease, or unspecified chronic kidney disease; E03.9 Hypothyroidism, unspecified; N18.30 Chronic kidney disease, stage 3 unspecified; K74.60 Unspecified cirrhosis of liver; E11.22 Type 2 diabetes mellitus with diabetic chronic kidney disease; J45.909 Unspecified asthma, uncomplicated; I48.91 Unspecified atrial fibrillation; G47.33 Obstructive sleep apnea (adult) (pediatric); M79.7 Fibromyalgia; R31.9 Hematuria, unspecified; G25.81 Restless legs syndrome; K21.9 Gastro-esophageal reflux disease without esophagitis; Z86.73 Personal history of transient ischemic attack (TIA), and cerebral infarction without residual deficits; B96.29 Other Escherichia coli [E. coli] as the cause of diseases classified elsewhere; Z79.899 Other long term (current) drug therapy; Z88.8 Allergy status to other drugs, medicaments and biological substances; Z88.7 Allergy status to serum and vaccine; G43.909 Migraine, unspecified, not intractable, without status migrainosus; Z95.0 Presence of cardiac pacemaker; Z98.41 Cataract extraction status, right eye; Z98.42 Cataract extraction status, left eye; M54.50 Low back pain, unspecified; M81.0 Age-related osteoporosis without current pathological fracture; B95.62 Methicillin resistant Staphylococcus aureus infection as the cause of diseases classified elsewhere

== ENCOUNTER → 2022-02-15 | Outpatient (REF) | payer MEDICARE, BC | LOC: M LAB REF 16:11 | PROVIDERS: ATTEND Nurse Practitioner Adult Health | DX: Z01.818 Encounter for other preprocedural examination (principal); Z11.52 Encounter for screening for COVID-19 ==

== ENCOUNTER 2022-03-12 14:20 | Emergency (ER) | payer MEDICARE, BC ==
[~2022-03-12] VITALS: Ht 165.1 cm; Wt 79.1 kg
[2022-03-12] MEDS ORDERED: MORPHINE 4 MG/ML 1ML VIAL/SYRINGE IV ONE (14:45)
[2022-03-12 14:48] VITALS: BP 132/72
[2022-03-12 15:41] LABS: BASO % 0.2 % (0.0-1.0); EOS # 0.1 10^3/uL (0.0-0.5); EOS % 1.4 % (0.0-3.0); HEMATOCRIT 32.2 % (36.0-47.0); HEMOGLOBIN 10.3 g/dl (12.0-15.5); LYMPH # 1.8 10^3/uL (1.5-5.0); LYMPH % 33.3 % (24.0-44.0); MEAN CORPUSCULAR HEMOGLOBIN 32.5 pg (27.0-33.0); MEAN CORPUSCULAR VOLUME 101.6 fl (80.0-96.0); MONO # 0.5 10^3/uL (0.0-0.8); MONO % 9.1 % (2.0-8.0); NEUTROPHILS # 3.1 10^3/uL (1.5-8.5); NEUTROPHILS % 55.6 % (36.0-66.0); PLATELET COUNT, AUTOMATED 230 10^3/uL (150-450); RED BLOOD COUNT 3.17 10^6/uL (4.00-5.40); WHITE BLOOD COUNT 5.5 10^3/uL (4.0-10.0)
[2022-03-12 15:53] LABS: ALBUMIN 3.4 GM/DL (3.2-5.2); BILIRUBIN,DIRECT 0.1 MG/DL (0.0-0.2); BILIRUBIN,TOTAL 0.3 MG/DL (0.2-1.0); CALCIUM LEVEL 8.8 MG/DL (8.8-10.2); CREATININE FOR GFR 1.26 MG/DL (0.55-1.30); GLOMERULAR FILTRATION RATE 43.8 (>39); POTASSIUM SERUM 4.5 MEQ/L (3.5-5.1); TOTAL PROTEIN 7.1 GM/DL (6.4-8.2)
== END 2022-03-12 18:08 | disposition home or self-care (01) ==
LOC: M ED 14:20
DX: R10.9 Unspecified abdominal pain (principal); E11.9 Type 2 diabetes mellitus without complications; J45.909 Unspecified asthma, uncomplicated; E78.5 Hyperlipidemia, unspecified; N18.9 Chronic kidney disease, unspecified; D64.9 Anemia, unspecified; G43.909 Migraine, unspecified, not intractable, without status migrainosus; Z86.79 Personal history of other diseases of the circulatory system; Z86.73 Personal history of transient ischemic attack (TIA), and cerebral infarction without residual deficits; Z88.7 Allergy status to serum and vaccine; Z88.8 Allergy status to other drugs, medicaments and biological substances; Z91.048 Other nonmedicinal substance allergy status; Z79.811 Long term (current) use of aromatase inhibitors; Z79.899 Other long term (current) drug therapy
CPT/HCPCS: 74176; 80048; 80076; 83605; 83690; 85025; 93041; 96374; 99284; J2270

== ENCOUNTER 2022-04-02 14:27 | Inpatient (IN) | payer MEDICARE, BC ==
[~2022-04-02] VITALS: Ht 160 cm; Wt 79.1 kg
[~2022-04-02 14:27] MED LIST changes: +LEVO1TAB38 PO; +LEVO1TAB39 PO; +LEVO1TAB40 PO; -LEVO250T3 PO; -LEVO500T4 PO; -LEVO750T13 PO
[2022-04-02] MEDS ORDERED: MORPHINE 4 MG/ML 1ML VIAL/SYRINGE IV ONE ×4 (14:50→20:10)
[2022-04-02] MEDS: NS 1,000 ML IV SCH (14:55)
[2022-04-02] MEDS ORDERED: ONDANSETRON 4MG 2ML VIAL IV ONE (15:10)
[2022-04-02 15:35] LABS: BASO % 0.3 % (0.0-1.0); EOS % 0.7 % (0.0-3.0); HEMATOCRIT 33.3 % (36.0-47.0); HEMOGLOBIN 10.8 g/dl (12.0-15.5); LYMPH # 0.6 10^3/uL (1.5-5.0); LYMPH % 10.5 % (24.0-44.0); MEAN CORPUSCULAR HEMOGLOBIN 32.6 pg (27.0-33.0); MEAN CORPUSCULAR HGB CONC 32.4 g/dl (32.0-36.5); MEAN CORPUSCULAR VOLUME 100.6 fl (80.0-96.0); MONO # 0.4 10^3/uL (0.0-0.8); MONO % 6.2 % (2.0-8.0); PLATELET COUNT, AUTOMATED 208 10^3/uL (150-450); RED BLOOD COUNT 3.31 10^6/uL (4.00-5.40); WHITE BLOOD COUNT 6.1 10^3/uL (4.0-10.0)
[2022-04-02 17:12] LABS: ALBUMIN 3.2 GM/DL (3.2-5.2); BILIRUBIN,DIRECT 0.2 MG/DL (0.0-0.2); BILIRUBIN,TOTAL 0.6 MG/DL (0.2-1.0); CALCIUM LEVEL 8.8 MG/DL (8.8-10.2); CREATININE FOR GFR 1.13 MG/DL (0.55-1.30); GLOMERULAR FILTRATION RATE 49.6 (>39); POTASSIUM SERUM 4.7 MEQ/L (3.5-5.1); TOTAL PROTEIN 6.9 GM/DL (6.4-8.2)
[2022-04-02] MEDS ORDERED: ISOVUE-370 76% 100ML VIAL As Ordered ONE (17:39)
[2022-04-02 19:45] LABS: RSV AMPLIFICATION NEGATIVE (NEGATIVE)
[2022-04-02] MEDS ORDERED: HOME MED LIST COMPLETE! XX SCH (19:55)
[2022-04-02] MEDS ORDERED: DOCU100C16 PO (19:55)
[2022-04-02] MEDS ORDERED: FURO20TA2 PO (19:55)
[2022-04-02] MEDS ORDERED: META1TAB22 PO (19:55)
[2022-04-02] MEDS ORDERED: HYDROMORPHONE HCL 0.5 MG/ 0.5 ML SYRINGE (J1170 PER 1) IV PRN (23:15)
[2022-04-03 00:29] VITALS: BP 140/58
[2022-04-03] MEDS: HEPARIN SOD (PORCINE) 5000UNITS/ML 1ML VIAL/SYRINGE SC SCH ×3 (01:03→20:13)
[2022-04-03 02:00] VITALS: BP 140/61
[2022-04-03] MEDS ORDERED: GLUCOSE 4GM CHEW TABLET PO PRN (02:15)
[2022-04-03] MEDS ORDERED: DEXTROSE 50% 50 ML SYRINGE IV PRN (02:15)
[2022-04-03] MEDS ORDERED: GLUCAGON INJ 1MG VIAL SC PRN (02:15)
[2022-04-03] MEDS: HYDROMORPHONE HCL 0.5 MG/ 0.5 ML SYRINGE (J1170 PER 1) IV PRN ×6 (02:37→20:14)
[2022-04-03] MEDS: NS 1,000 ML IV SCH ×2 (02:37→12:39)
[2022-04-03] MEDS: INSULIN LISPRO (NovoLOG) PER UNIT SC SCH ×5 (02:38→23:59)
[2022-04-03] MEDS ORDERED: ONDANSETRON 4MG 2ML VIAL IV PRN (02:45)
[2022-04-03] MEDS: LEVOTHYROXINE 50MCG TABLET (0.05MG) PO SCH (05:49)
[2022-04-03 06:00] VITALS: BP_SYST 138; BP_SYST 150; BP_DIAS 65; BP_DIAS 84
[2022-04-03 06:58] LABS: CALCIUM LEVEL 8.6 MG/DL (8.8-10.2); CREATININE FOR GFR 1.14 MG/DL (0.55-1.30); GLOMERULAR FILTRATION RATE 49.1 (>39); POTASSIUM SERUM 4.2 MEQ/L (3.5-5.1)
[2022-04-03 08:01] LABS: HEMATOCRIT 29.3 % (36.0-47.0); HEMOGLOBIN 9.4 g/dl (12.0-15.5); MEAN CORPUSCULAR HGB CONC 32.1 g/dl (32.0-36.5); MEAN CORPUSCULAR VOLUME 102.8 fl (80.0-96.0); PLATELET COUNT, AUTOMATED 191 10^3/uL (150-450); RED BLOOD COUNT 2.85 10^6/uL (4.00-5.40); WHITE BLOOD COUNT 4.7 10^3/uL (4.0-10.0)
[2022-04-03] MEDS: PANTOPRAZOLE 40MG VIAL IV SCH (09:50)
[2022-04-03 10:00] VITALS: BP 147/65
[2022-04-03] MEDS ORDERED: HYDROmorphone HCL 2MG/ML 1ML VIAL IV PRN (10:20)
[2022-04-03 11:25] LABS: BACTERIA, URINE LARGE AMOUNT; HYALINE CAST, URINE NONE SEEN /lpf (0-1); SQUAMOUS EPITHELIAL CELL URINE MOD AMOUNT /hpf (SMALL AMT); WBC, URINE TNTC /hpf (0-3)
[2022-04-03 12:15] LABS: INR 1.04
[2022-04-03 12:16] LABS: PARTIAL THROMBOPLASTIN TIME 34.6 SECONDS (25.9-37.0)
[2022-04-03] MEDS: cefTRIAXone SOD 1 GM in D5W MINI-BAG PLUS 50 ML IV SCH (12:39)
[2022-04-03 14:00] VITALS: BP 114/58
[2022-04-03] MEDS: MIRALAX *UNIT DOSE* 17GM PACKET PO SCH (20:13)
[2022-04-03] MEDS: traZODone 100 MG TAB NG SCH (20:44)
[2022-04-03 22:00] VITALS: BP 128/58
[2022-04-04] MEDS: NS 1,000 ML IV SCH (00:32)
[2022-04-04] MEDS: LEVOTHYROXINE 50MCG TABLET (0.05MG) PO SCH (05:36)
[2022-04-04] MEDS: HYDROMORPHONE HCL 0.5 MG/ 0.5 ML SYRINGE (J1170 PER 1) IV PRN ×3 (05:37→17:08)
[2022-04-04 06:00] VITALS: BP 134/61
[2022-04-04] MEDS: INSULIN LISPRO (NovoLOG) PER UNIT SC SCH ×3 (06:00→18:41)
[2022-04-04 07:02] LABS: HEMATOCRIT 28.5 % (36.0-47.0); HEMOGLOBIN 8.9 g/dl (12.0-15.5); MEAN CORPUSCULAR HEMOGLOBIN 32.2 pg (27.0-33.0); MEAN CORPUSCULAR HGB CONC 31.2 g/dl (32.0-36.5); MEAN CORPUSCULAR VOLUME 103.3 fl (80.0-96.0); PLATELET COUNT, AUTOMATED 165 10^3/uL (150-450); RED BLOOD COUNT 2.76 10^6/uL (4.00-5.40)
[2022-04-04 07:37] LABS: ALBUMIN 2.9 GM/DL (3.2-5.2); ALT/SGPT 12 U/L (12-78); BILIRUBIN,TOTAL 0.5 MG/DL (0.2-1.0); BLOOD UREA NITROGEN 13 MG/DL (7-18); CALCIUM LEVEL 8.5 MG/DL (8.8-10.2); CARBON DIOXIDE LEVEL 22 MEQ/L (21-32); CHLORIDE LEVEL 114 MEQ/L (98-107); CREATININE FOR GFR 0.85 MG/DL (0.55-1.30); GLOMERULAR FILTRATION RATE > 60.0 (>39); GLUCOSE, FASTING 94 MG/DL (70-100); POTASSIUM SERUM 4.1 MEQ/L (3.5-5.1); SODIUM LEVEL 143 MEQ/L (136-145); TOTAL PROTEIN 6.4 GM/DL (6.4-8.2)
[2022-04-04] MEDS: NS 0.45% 1,000 ML IV SCH ×3 (08:26→21:04)
[2022-04-04] MEDS: PANTOPRAZOLE 40MG VIAL IV SCH (08:30)
[2022-04-04] MEDS: HEPARIN SOD (PORCINE) 5000UNITS/ML 1ML VIAL/SYRINGE SC SCH ×2 (08:31→21:00)
[2022-04-04] MEDS: MIRALAX *UNIT DOSE* 17GM PACKET PO SCH ×2 (08:31→21:00)
[2022-04-04] MEDS: cefTRIAXone SOD 1 GM in D5W MINI-BAG PLUS 50 ML IV SCH (12:16)
[2022-04-04 14:00] VITALS: BP 169/55
[2022-04-04] MEDS ORDERED: FUROSEMIDE 20 MG TAB PO PRN (17:40)
[2022-04-04] MEDS ORDERED: oxyCODONE 5MG TAB PO PRN (17:40)
[2022-04-04] MEDS: METAXALONE 800 MG TABLET PO SCH (20:59)
[2022-04-04] MEDS: AMITRIPTYLINE 10MG TABLET PO SCH (20:59)
[2022-04-04] MEDS: PREGABALIN 100 MG CAP (LYRICA) PO SCH (20:59)
[2022-04-04] MEDS: rOPINIRole 1MG TAB PO SCH (20:59)
[2022-04-04] MEDS: PRAVASTATIN 20 MG TAB PO SCH (20:59)
[2022-04-04] MEDS: traZODone 100 MG TAB NG SCH (20:59)
[2022-04-04] MEDS: DOCUSATE SODIUM 100MG CAPSULE PO SCH (20:59)
[2022-04-04] MEDS: oxyCODONE 20 MG CR TAB PO SCH (21:00)
[2022-04-04] MEDS: METOPROLOL SUCC (TopROL XL) 50MG **XL** TAB PO SCH (21:03)
[2022-04-04 22:00] VITALS: BP 140/60
[2022-04-05] MEDS: LEVOTHYROXINE 50MCG TABLET (0.05MG) PO SCH (05:38)
[2022-04-05] MEDS: INSULIN LISPRO (NovoLOG) PER UNIT SC SCH ×4 (05:56→17:16)
[2022-04-05 05:59] VITALS: BP 141/61
[2022-04-05 06:35] LABS: HEMOGLOBIN 8.1 g/dl (12.0-15.5); MEAN CORPUSCULAR HEMOGLOBIN 32.3 pg (27.0-33.0); MEAN CORPUSCULAR HGB CONC 32.4 g/dl (32.0-36.5); MEAN CORPUSCULAR VOLUME 99.6 fl (80.0-96.0); PLATELET COUNT, AUTOMATED 172 10^3/uL (150-450); RED BLOOD COUNT 2.51 10^6/uL (4.00-5.40); WHITE BLOOD COUNT 2.5 10^3/uL (4.0-10.0)
[2022-04-05 07:23] LABS: ALBUMIN 2.7 GM/DL (3.2-5.2); ALT/SGPT 12 U/L (12-78); BILIRUBIN,TOTAL 0.3 MG/DL (0.2-1.0); BLOOD UREA NITROGEN 10 MG/DL (7-18); CALCIUM LEVEL 8.2 MG/DL (8.8-10.2); CARBON DIOXIDE LEVEL 24 MEQ/L (21-32); CHLORIDE LEVEL 110 MEQ/L (98-107); CREATININE FOR GFR 0.78 MG/DL (0.55-1.30); GLOMERULAR FILTRATION RATE > 60.0 (>39); GLUCOSE, FASTING 106 MG/DL (70-100); POTASSIUM SERUM 3.5 MEQ/L (3.5-5.1); SODIUM LEVEL 139 MEQ/L (136-145)
[2022-04-05] MEDS: DOCUSATE SODIUM 100MG CAPSULE PO SCH ×2 (07:55→20:29)
[2022-04-05] MEDS: PREGABALIN 100 MG CAP (LYRICA) PO SCH ×3 (07:55→20:30)
[2022-04-05] MEDS: HEPARIN SOD (PORCINE) 5000UNITS/ML 1ML VIAL/SYRINGE SC SCH ×2 (07:55→20:32)
[2022-04-05] MEDS: METAXALONE 800 MG TABLET PO SCH ×3 (07:55→20:29)
[2022-04-05] MEDS: rOPINIRole 1MG TAB PO SCH ×2 (07:57→20:30)
[2022-04-05] MEDS: MIRALAX *UNIT DOSE* 17GM PACKET PO SCH ×2 (07:58→09:00)
[2022-04-05] MEDS: oxyCODONE 20 MG CR TAB PO SCH ×2 (08:08→20:31)
[2022-04-05] MEDS: cefTRIAXone SOD 1 GM in D5W MINI-BAG PLUS 50 ML IV SCH (13:23)
[2022-04-05 14:00] VITALS: BP 132/55
[2022-04-05] MEDS: traZODone 100 MG TAB NG SCH (20:29)
[2022-04-05] MEDS: METOPROLOL SUCC (TopROL XL) 50MG **XL** TAB PO SCH (20:30)
[2022-04-05] MEDS: PRAVASTATIN 20 MG TAB PO SCH (20:30)
[2022-04-05] MEDS: AMITRIPTYLINE 10MG TABLET PO SCH (20:30)
[2022-04-05] MEDS ORDERED: INSULIN LISPRO (NovoLOG) PER UNIT SC SCH (21:00)
[2022-04-05 22:00] VITALS: BP 153/68
[2022-04-06 06:00] VITALS: BP 149/68
[2022-04-06] MEDS: LEVOTHYROXINE 50MCG TABLET (0.05MG) PO SCH (06:06)
[2022-04-06 06:31] LABS: HEMATOCRIT 26.1 % (36.0-47.0); HEMOGLOBIN 8.6 g/dl (12.0-15.5); MEAN CORPUSCULAR HEMOGLOBIN 32.7 pg (27.0-33.0); MEAN CORPUSCULAR VOLUME 99.2 fl (80.0-96.0); PLATELET COUNT, AUTOMATED 179 10^3/uL (150-450); RED BLOOD COUNT 2.63 10^6/uL (4.00-5.40); WHITE BLOOD COUNT 2.7 10^3/uL (4.0-10.0)
[2022-04-06 07:11] LABS: ALBUMIN 2.9 GM/DL (3.2-5.2); ALT/SGPT 12 U/L (12-78); BILIRUBIN,TOTAL 0.2 MG/DL (0.2-1.0); BLOOD UREA NITROGEN 9 MG/DL (7-18); CALCIUM LEVEL 8.3 MG/DL (8.8-10.2); CARBON DIOXIDE LEVEL 25 MEQ/L (21-32); CHLORIDE LEVEL 108 MEQ/L (98-107); CREATININE FOR GFR 0.76 MG/DL (0.55-1.30); GLOMERULAR FILTRATION RATE > 60.0 (>39); GLUCOSE, FASTING 117 MG/DL (70-100); POTASSIUM SERUM 3.4 MEQ/L (3.5-5.1); SODIUM LEVEL 138 MEQ/L (136-145); TOTAL PROTEIN 6.4 GM/DL (6.4-8.2)
[2022-04-06] MEDS: INSULIN LISPRO (NovoLOG) PER UNIT SC SCH (07:30)
[2022-04-06] MEDS ORDERED: KCL 10MEQ/100ML SWI (KRUN) 10 MEQ in IV 1 EA IV ONE (08:00)
[2022-04-06] MEDS: MIRALAX *UNIT DOSE* 17GM PACKET PO SCH (08:10)
[2022-04-06] MEDS: PREGABALIN 100 MG CAP (LYRICA) PO SCH (08:19)
[2022-04-06] MEDS: DOCUSATE SODIUM 100MG CAPSULE PO SCH (08:19)
[2022-04-06] MEDS: METAXALONE 800 MG TABLET PO SCH (08:19)
[2022-04-06] MEDS: rOPINIRole 1MG TAB PO SCH (08:19)
[2022-04-06 08:20] VITALS: BP 150/69
[2022-04-06] MEDS: HEPARIN SOD (PORCINE) 5000UNITS/ML 1ML VIAL/SYRINGE SC SCH (08:20)
[2022-04-06] MEDS: oxyCODONE 20 MG CR TAB PO SCH (08:21)
[2022-04-06] MEDS ORDERED: POTASSIUM CHLORIDE 10% LIQ 20 MEQ/15 ML UDC PO ONE (09:30)
[2022-04-06] MEDS ORDERED: AMPI500C9 PO (09:57)
[2022-04-06] MEDS ORDERED: MIRA3350 PO (09:59)
== END 2022-04-06 11:12 | disposition home or self-care (01) | DRG 389 ==
LOC: M ED 14:27 → M ED INP 21:56 → M MSPAV 04-03 00:29
PROVIDERS: ADMIT Internal Medicine; ATTEND Internal Medicine Nephrology
DX: K56.609 Unspecified intestinal obstruction, unspecified as to partial versus complete obstruction (principal); I50.32 Chronic diastolic (congestive) heart failure; F11.20 Opioid dependence, uncomplicated; N39.0 Urinary tract infection, site not specified; I11.0 Hypertensive heart disease with heart failure; Z93.2 Ileostomy status; I25.10 Atherosclerotic heart disease of native coronary artery without angina pectoris; G47.33 Obstructive sleep apnea (adult) (pediatric); G25.81 Restless legs syndrome; I27.81 Cor pulmonale (chronic); J45.909 Unspecified asthma, uncomplicated; E78.5 Hyperlipidemia, unspecified; K21.9 Gastro-esophageal reflux disease without esophagitis; E03.9 Hypothyroidism, unspecified; I27.20 Pulmonary hypertension, unspecified; K74.60 Unspecified cirrhosis of liver; D64.9 Anemia, unspecified; I48.91 Unspecified atrial fibrillation; B96.4 Proteus (mirabilis) (morganii) as the cause of diseases classified elsewhere; R16.1 Splenomegaly, not elsewhere classified; N31.9 Neuromuscular dysfunction of bladder, unspecified; G58.9 Mononeuropathy, unspecified; E11.9 Type 2 diabetes mellitus without complications; Z86.73 Personal history of transient ischemic attack (TIA), and cerebral infarction without residual deficits; M79.7 Fibromyalgia; Z93.3 Colostomy status; Z79.899 Other long term (current) drug therapy; Z88.7 Allergy status to serum and vaccine; Z88.8 Allergy status to other drugs, medicaments and biological substances; Z98.41 Cataract extraction status, right eye; Z98.42 Cataract extraction status, left eye

== ENCOUNTER → 2022-04-12 | Outpatient (CLI) | payer MEDICARE, BC ==
[~2022-04-12] MED LIST changes: +AMPI500C9 PO; +DOCU100C16 PO; +FURO20TA2 PO; +META1TAB22 PO
== END ==
LOC: M LABSMTC 10:18
PROVIDERS: ATTEND Student in an Organized Health Care Education/Training Program
DX: Z20.822 Contact with and (suspected) exposure to COVID-19 (principal); Z11.52 Encounter for screening for COVID-19

== ENCOUNTER → 2022-07-04 | Outpatient (CLI) | payer MEDICARE, BC | LOC: M LABSMTC 11:03 | PROVIDERS: ATTEND Student in an Organized Health Care Education/Training Program | DX: N13.39 Other hydronephrosis (principal); Z01.812 Encounter for preprocedural laboratory examination ==

== ENCOUNTER → 2022-08-06 | Outpatient (CLI) | payer MEDICARE, BC | LOC: M SLEEP 20:00 | PROVIDERS: ATTEND Nurse Practitioner Family | DX: G47.33 Obstructive sleep apnea (adult) (pediatric) (principal) ==

== ENCOUNTER 2022-10-10 18:56 | Inpatient (IN) | payer MEDICARE, BC ==
[~2022-10-10] VITALS: Ht 160 cm; Wt 79.1 kg
[~2022-10-10 18:56] MED LIST changes: +ACETAMINOPHEN TAB 650MG DOSE (2X325MG) PO PRN; +DIPH-435 PO; -DIPH25CA32 PO
[2022-10-10] MEDS ORDERED: ONDANSETRON 4MG 2ML VIAL IV ONE (19:20)
[2022-10-10] MEDS ORDERED: HYDROMORPHONE HCL 0.5 MG/ 0.5 ML SYRINGE IV ONE (19:20)
[2022-10-10] MEDS ORDERED: NS 1,000 ML IV ONE (19:25)
[2022-10-10 19:49] LABS: BASO % 0.3 % (0.0-1.0); EOS # 0.1 10^3/uL (0.0-0.5); EOS % 1.9 % (0.0-3.0); HEMATOCRIT 31.2 % (36.0-47.0); HEMOGLOBIN 10.1 g/dl (12.0-15.5); LYMPH # 1.9 10^3/uL (1.5-5.0); LYMPH % 31.6 % (24.0-44.0); MEAN CORPUSCULAR HEMOGLOBIN 32.3 pg (27.0-33.0); MEAN CORPUSCULAR HGB CONC 32.4 g/dl (32.0-36.5); MEAN CORPUSCULAR VOLUME 99.7 fl (80.0-96.0); MONO # 0.4 10^3/uL (0.0-0.8); MONO % 6.7 % (2.0-8.0); NEUTROPHILS # 3.5 10^3/uL (1.5-8.5); NEUTROPHILS % 58.8 % (36.0-66.0); PLATELET COUNT, AUTOMATED 265 10^3/uL (150-450); RED BLOOD COUNT 3.13 10^6/uL (4.00-5.40); WHITE BLOOD COUNT 5.9 10^3/uL (4.0-10.0)
[2022-10-10 20:16] LABS: ALBUMIN 3.5 G/DL (3.2-5.2); BILIRUBIN,TOTAL 0.3 MG/DL (0.3-1.2); CALCIUM LEVEL 9.2 MG/DL (8.3-10.6); CREATININE FOR GFR 1.1 MG/DL (0.55-1.30); GLOMERULAR FILTRATION RATE 51.1 (>39); MAGNESIUM LEVEL 1.5 MG/DL (1.8-2.4); POTASSIUM SERUM 4.6 MMOL/L (3.5-5.1); TOTAL PROTEIN 7.4 G/DL (5.7-8.2)
[2022-10-10] MEDS ORDERED: ISOVUE-370 76% 100ML VIAL As Ordered ONE (21:04)
[2022-10-10 21:43] LABS: RSV AMPLIFICATION NEGATIVE (NEGATIVE)
[2022-10-10] MEDS: HYDROMORPHONE HCL 0.5 MG/ 0.5 ML SYRINGE IV PRN ×2 (21:52→22:47)
[2022-10-10] MEDS ORDERED: cefTRIAXone SOD 1 GM in D5W MINI-BAG PLUS 50 ML IV ONE (22:25)
[2022-10-10] MEDS ORDERED: CYCL5TAB PO (23:06)
[2022-10-10] MEDS ORDERED: HOME MED LIST COMPLETE! XX SCH (23:10)
[2022-10-10] MEDS ORDERED: HYDROMORPHONE HCL 0.5 MG/ 0.5 ML SYRINGE IV PRN (23:15)
[2022-10-11] VITALS (7 sets, daily range): BP systolic 117–141; BP diastolic 56–92
[2022-10-11] MEDS ORDERED: ACETAMINOPHEN 1000MG 100ML IV BAG IV ONE (01:00)
[2022-10-11] MEDS: NS 1,000 ML IV SCH ×2 (01:18→08:30)
[2022-10-11] MEDS: rOPINIRole 1MG TAB PO SCH ×3 (01:37→23:53)
[2022-10-11] MEDS: METOPROLOL SUCC *XL* 25MG TAB (TopROL *XL*) PO SCH ×2 (01:37→20:58)
[2022-10-11] MEDS: PANTOPRAZOLE 40MG TAB (PROTONIX) PO SCH ×2 (01:37→20:58)
[2022-10-11] MEDS: traZODone 100 MG TAB PO SCH ×2 (01:38→20:57)
[2022-10-11] MEDS: DOCUSATE SODIUM 100MG CAPSULE PO SCH ×3 (01:38→20:58)
[2022-10-11] MEDS: PRAVASTATIN 20 MG TAB PO SCH ×2 (01:38→20:57)
[2022-10-11] MEDS: oxyCODONE 20MG CR TAB PO SCH ×3 (02:18→20:58)
[2022-10-11] MEDS: AMITRIPTYLINE 10MG TABLET PO SCH ×2 (03:00→20:57)
[2022-10-11 04:22] LABS: HEMATOCRIT 23.7 % (36.0-47.0); MEAN CORPUSCULAR HEMOGLOBIN 32.3 pg (27.0-33.0); MEAN CORPUSCULAR HGB CONC 32.1 g/dl (32.0-36.5); MEAN CORPUSCULAR VOLUME 100.9 fl (80.0-96.0); PLATELET COUNT, AUTOMATED 184 10^3/uL (150-450); RED BLOOD COUNT 2.35 10^6/uL (4.00-5.40); WHITE BLOOD COUNT 4.2 10^3/uL (4.0-10.0)
[2022-10-11 04:29] LABS: HEMOGLOBIN 7.6 g/dl (12.0-15.5)
[2022-10-11] MEDS: HYDROMORPHONE HCL 0.5 MG/ 0.5 ML SYRINGE IV PRN ×3 (04:31→10:31)
[2022-10-11 04:57] LABS: CALCIUM LEVEL 7.8 MG/DL (8.3-10.6); CREATININE FOR GFR 1.12 MG/DL (0.55-1.30); GLOMERULAR FILTRATION RATE 50.1 (>39); MAGNESIUM LEVEL 1.3 MG/DL (1.8-2.4); POTASSIUM SERUM 4.7 MMOL/L (3.5-5.1)
[2022-10-11] MEDS ORDERED: MAG SULF 1GM/100ML (MAG RUN) 1 GM in IV 1 EA IV ONE (06:00)
[2022-10-11] MEDS: LEVOTHYROXINE 50MCG TABLET (0.05MG) PO SCH (06:25)
[2022-10-11 08:20] LABS: HEMATOCRIT 26.6 % (36.0-47.0); HEMOGLOBIN 8.4 g/dl (12.0-15.5)
[2022-10-11] MEDS: ENOXAPARIN 40MG/0.4ML SYRINGE (J1650 PER 10MG) SC SCH (08:29)
[2022-10-11] MEDS: PREGABALIN 100 MG CAP (LYRICA) PO SCH ×3 (08:30→20:58)
[2022-10-11] MEDS: CYCLOBENZAPRINE 5MG TABLET PO SCH ×3 (10:31→20:58)
[2022-10-11] MEDS: ACETAMINOPHEN 500 MG TAB PO SCH ×3 (12:00→23:53)
[2022-10-11] MEDS: MORPHINE 10 MG/ML 1ML VIAL IV PRN ×3 (13:27→21:11)
[2022-10-11] MEDS ORDERED: ONDANSETRON 4MG ORAL DISINTEGRATING TAB SL PRN (13:30)
[2022-10-11] MEDS ORDERED: cefTRIAXone SOD 1 GM in D5W MINI-BAG PLUS 50 ML IV SCH (22:00)
[2022-10-12 03:54] VITALS: BP 121/60
[2022-10-12] MEDS: MORPHINE 10 MG/ML 1ML VIAL IV PRN ×2 (03:54→07:46)
[2022-10-12 05:26] LABS: BASO % 0.3 % (0.0-1.0); EOS # 0.1 10^3/uL (0.0-0.5); HEMATOCRIT 23.3 % (36.0-47.0); HEMOGLOBIN 7.3 g/dl (12.0-15.5); LYMPH # 1.3 10^3/uL (1.5-5.0); LYMPH % 37.9 % (24.0-44.0); MEAN CORPUSCULAR HGB CONC 31.3 g/dl (32.0-36.5); MEAN CORPUSCULAR VOLUME 102.2 fl (80.0-96.0); MONO # 0.4 10^3/uL (0.0-0.8); MONO % 10.7 % (2.0-8.0); NEUTROPHILS # 1.6 10^3/uL (1.5-8.5); NEUTROPHILS % 47.8 % (36.0-66.0); PLATELET COUNT, AUTOMATED 154 10^3/uL (150-450); RED BLOOD COUNT 2.28 10^6/uL (4.00-5.40); WHITE BLOOD COUNT 3.4 10^3/uL (4.0-10.0)
[2022-10-12 05:46] LABS: ALBUMIN 2.3 G/DL (3.2-5.2); ALKALINE PHOSPHATASE 99 U/L (46-116); ALT/SGPT < 9 U/L (7.0-40); AST/SGOT 42 U/L (<34); BILIRUBIN,TOTAL 0.2 MG/DL (0.3-1.2); BLOOD UREA NITROGEN 17 MG/DL (9-23); CALCIUM LEVEL 7.7 MG/DL (8.3-10.6); CARBON DIOXIDE LEVEL 25 MMOL/L (20-31); CHLORIDE LEVEL 109 MMOL/L (98-107); CREATININE FOR GFR 1.08 MG/DL (0.55-1.30); GLOMERULAR FILTRATION RATE 52.2 (>39); GLUCOSE, FASTING 161 MG/DL (74-106); MAGNESIUM LEVEL 1.7 MG/DL (1.8-2.4); POTASSIUM SERUM 4.4 MMOL/L (3.5-5.1); SODIUM LEVEL 140 MMOL/L (136-145); TOTAL PROTEIN 5.2 G/DL (5.7-8.2)
[2022-10-12] MEDS: ACETAMINOPHEN 500 MG TAB PO SCH ×2 (05:56→11:26)
[2022-10-12] MEDS: LEVOTHYROXINE 50MCG TABLET (0.05MG) PO SCH (05:57)
[2022-10-12] MEDS ORDERED: LevoFLOXacin 750 MG TABLET PO SCH (06:00)
[2022-10-12 07:44] VITALS: BP 129/60
[2022-10-12] MEDS: MAG SULF 1GM/100ML (MAG RUN) 1 GM in IV 1 EA IV ONE ×2 (07:45→11:27)
[2022-10-12] MEDS: PREGABALIN 100 MG CAP (LYRICA) PO SCH ×3 (09:04→20:11)
[2022-10-12] MEDS: ENOXAPARIN 40MG/0.4ML SYRINGE (J1650 PER 10MG) SC SCH (09:04)
[2022-10-12] MEDS: oxyCODONE 20MG CR TAB PO SCH ×2 (09:05→20:10)
[2022-10-12] MEDS: DOCUSATE SODIUM 100MG CAPSULE PO SCH ×2 (09:06→20:11)
[2022-10-12] MEDS: CYCLOBENZAPRINE 5MG TABLET PO SCH ×3 (09:06→20:10)
[2022-10-12] MEDS ORDERED: LIDOCAINE 1% MDV 20ML VIAL As Ordered ONE (09:36)
[2022-10-12] MEDS ORDERED: PERCOCET 5MG/325MG TAB PO PRN (09:40)
[2022-10-12 11:15] VITALS: BP 113/75
[2022-10-12] MEDS: MORPHINE 4 MG/ML 1ML VIAL IV PRN ×3 (11:27→21:29)
[2022-10-12] MEDS ORDERED: SODIUM CHLORIDE 0.9% INJ 10 ML SYR IV PRN (11:55)
[2022-10-12] MEDS ORDERED: ACETAMINOPHEN TAB 650MG DOSE (2X325MG) PO PRN (13:20)
[2022-10-12 15:56] VITALS: BP 100/70
[2022-10-12] MEDS: rOPINIRole 1MG TAB PO SCH (16:02)
[2022-10-12] MEDS: oxyCODONE 5MG TAB PO PRN (16:03)
[2022-10-12] MEDS: SODIUM CHLORIDE 0.9% INJ 10 ML SYR IV SCH (17:11)
[2022-10-12 20:08] VITALS: BP 139/61
[2022-10-12] MEDS: AMITRIPTYLINE 10MG TABLET PO SCH (20:10)
[2022-10-12] MEDS: PANTOPRAZOLE 40MG TAB (PROTONIX) PO SCH (20:11)
[2022-10-12] MEDS: traZODone 100 MG TAB PO SCH (20:11)
[2022-10-12] MEDS: PRAVASTATIN 20 MG TAB PO SCH (20:11)
[2022-10-12] MEDS: METOPROLOL SUCC *XL* 25MG TAB (TopROL *XL*) PO SCH (20:11)
[2022-10-13] MEDS: rOPINIRole 1MG TAB PO SCH (00:03)
[2022-10-13 00:06] VITALS: BP 122/60
[2022-10-13] MEDS: oxyCODONE 5MG TAB PO PRN (00:10)
[2022-10-13 04:13] VITALS: BP 126/60
[2022-10-13] MEDS: LEVOTHYROXINE 50MCG TABLET (0.05MG) PO SCH (05:11)
[2022-10-13] MEDS: SODIUM CHLORIDE 0.9% INJ 10 ML SYR IV SCH (05:12)
[2022-10-13] MEDS: MORPHINE 4 MG/ML 1ML VIAL IV PRN (05:24)
[2022-10-13 05:39] LABS: BASO % 0.3 % (0.0-1.0); EOS # 0.1 10^3/uL (0.0-0.5); EOS % 3.7 % (0.0-3.0); HEMATOCRIT 23.4 % (36.0-47.0); HEMOGLOBIN 7.4 g/dl (12.0-15.5); LYMPH # 1.3 10^3/uL (1.5-5.0); LYMPH % 36.5 % (24.0-44.0); MEAN CORPUSCULAR HEMOGLOBIN 31.9 pg (27.0-33.0); MEAN CORPUSCULAR HGB CONC 31.6 g/dl (32.0-36.5); MEAN CORPUSCULAR VOLUME 100.9 fl (80.0-96.0); MONO # 0.3 10^3/uL (0.0-0.8); MONO % 8.6 % (2.0-8.0); NEUTROPHILS # 1.8 10^3/uL (1.5-8.5); NEUTROPHILS % 50.3 % (36.0-66.0); PLATELET COUNT, AUTOMATED 183 10^3/uL (150-450); RED BLOOD COUNT 2.32 10^6/uL (4.00-5.40); WHITE BLOOD COUNT 3.5 10^3/uL (4.0-10.0)
[2022-10-13 07:41] LABS: ALBUMIN 2.2 G/DL (3.2-5.2); ALKALINE PHOSPHATASE 109 U/L (46-116); ALT/SGPT < 9 U/L (7.0-40); AST/SGOT 12 U/L (<34); BILIRUBIN,TOTAL 0.2 MG/DL (0.3-1.2); BLOOD UREA NITROGEN 17 MG/DL (9-23); CALCIUM LEVEL 8.6 MG/DL (8.3-10.6); CARBON DIOXIDE LEVEL 26 MMOL/L (20-31); CHLORIDE LEVEL 109 MMOL/L (98-107); CREATININE FOR GFR 1.27 MG/DL (0.55-1.30); GLOMERULAR FILTRATION RATE 43.3 (>39); GLUCOSE, FASTING 132 MG/DL (74-106); POTASSIUM SERUM 4.4 MMOL/L (3.5-5.1); SODIUM LEVEL 141 MMOL/L (136-145)
[2022-10-13 07:59] LABS: TOTAL PROTEIN 6.1 G/DL (5.7-8.2)
[2022-10-13 08:00] VITALS: BP 145/69
[2022-10-13] MEDS: PREGABALIN 100 MG CAP (LYRICA) PO SCH (08:30)
[2022-10-13] MEDS: DOCUSATE SODIUM 100MG CAPSULE PO SCH (08:30)
[2022-10-13 08:31] VITALS: BP 145/69
[2022-10-13] MEDS: ENOXAPARIN 40MG/0.4ML SYRINGE (J1650 PER 10MG) SC SCH (08:31)
[2022-10-13] MEDS: oxyCODONE 20MG CR TAB PO SCH (08:31)
[2022-10-13] MEDS: CYCLOBENZAPRINE 5MG TABLET PO SCH (08:31)
[2022-10-13] MEDS ORDERED: DOXYCYCLINE HYCLATE 100MG TABLET PO SCH (09:00)
[2022-10-13] MEDS ORDERED: DOXY100T PO (10:09)
[2022-10-13] MEDS ORDERED: LEVO1TAB40 PO (10:09)
[2022-10-13 12:11] VITALS: BP 137/63
== END 2022-10-13 13:10 | disposition home or self-care (01) | DRG 699 ==
LOC: EDBD 18:56 → M ED 18:56 → M ED INP 23:13 → M ICU 10-11 01:08
PROVIDERS: ADMIT Family Medicine; ATTEND Internal Medicine
PROC: 02HV33Z Insertion of Infusion Device into Superior Vena Cava, Percutaneous Approach (ICD-10-PCS; principal; 2022-10-12 14:30)
DX: T83.518A Infection and inflammatory reaction due to other urinary catheter, initial encounter (principal); N12 Tubulo-interstitial nephritis, not specified as acute or chronic; I13.0 Hypertensive heart and chronic kidney disease with heart failure and stage 1 through stage 4 chronic kidney disease, or unspecified chronic kidney disease; I50.32 Chronic diastolic (congestive) heart failure; E11.22 Type 2 diabetes mellitus with diabetic chronic kidney disease; J45.909 Unspecified asthma, uncomplicated; E03.9 Hypothyroidism, unspecified; G25.81 Restless legs syndrome; D64.9 Anemia, unspecified; K21.9 Gastro-esophageal reflux disease without esophagitis; E78.5 Hyperlipidemia, unspecified; I48.91 Unspecified atrial fibrillation; I25.10 Atherosclerotic heart disease of native coronary artery without angina pectoris; G47.33 Obstructive sleep apnea (adult) (pediatric); G89.29 Other chronic pain; Z95.0 Presence of cardiac pacemaker; E83.42 Hypomagnesemia; Y84.6 Urinary catheterization as the cause of abnormal reaction of the patient, or of later complication, without mention of misadventure at the time of the procedure; F41.9 Anxiety disorder, unspecified; F32.A Depression, unspecified; M79.7 Fibromyalgia; N18.32 Chronic kidney disease, stage 3b; Z88.8 Allergy status to other drugs, medicaments and biological substances; Z88.7 Allergy status to serum and vaccine; Z79.899 Other long term (current) drug therapy; Z86.73 Personal history of transient ischemic attack (TIA), and cerebral infarction without residual deficits; Z98.41 Cataract extraction status, right eye; Z98.42 Cataract extraction status, left eye

== ENCOUNTER 2023-02-01 17:31 | Inpatient (IN) | payer MEDICARE, BC ==
[~2023-02-01] VITALS: Ht 160 cm; Wt 76.7 kg
[~2023-02-01 17:31] MED LIST changes: -ACETAMINOPHEN TAB 650MG DOSE (2X325MG) PO PRN; +CYCL5TAB PO; +DOXY100T PO; -OXYC-404 PO; +OXYC20TA64 PO
[2023-02-01] MEDS ORDERED: ACETAMINOPHEN TAB 650MG DOSE (2X325MG) PO ONE (18:20)
[2023-02-01 18:57] LABS: BASO % 0.1 % (0.0-1.0); EOS % 0.4 % (0.0-3.0); HEMATOCRIT 25.9 % (36.0-47.0); HEMOGLOBIN 8.3 g/dl (12.0-15.5); LYMPH # 0.7 10^3/uL (1.5-5.0); LYMPH % 10.4 % (24.0-44.0); MEAN CORPUSCULAR HEMOGLOBIN 32.9 pg (27.0-33.0); MEAN CORPUSCULAR VOLUME 102.8 fl (80.0-96.0); MONO # 0.6 10^3/uL (0.0-0.8); MONO % 8.4 % (2.0-8.0); NEUTROPHILS # 5.4 10^3/uL (1.5-8.5); NEUTROPHILS % 79.7 % (36.0-66.0); PLATELET COUNT, AUTOMATED 227 10^3/uL (150-450); RED BLOOD COUNT 2.52 10^6/uL (4.00-5.40); WHITE BLOOD COUNT 6.8 10^3/uL (4.0-10.0)
[2023-02-01 19:23] LABS: LIPASE 22 U/L (12-53)
[2023-02-01] MEDS ORDERED: ECOT81TA5 PO (19:24)
[2023-02-01 19:25] LABS: ALBUMIN 3.1 G/DL (3.2-5.2); ALKALINE PHOSPHATASE 104 U/L (46-116); ALT/SGPT < 9 U/L (7.0-40); AST/SGOT 14 U/L (<34); BILIRUBIN,DIRECT 0.3 MG/DL (<0.4); BILIRUBIN,TOTAL 0.6 MG/DL (0.3-1.2); BLOOD UREA NITROGEN 33 MG/DL (9-23); CALCIUM LEVEL 8.1 MG/DL (8.3-10.6); CARBON DIOXIDE LEVEL 25 MMOL/L (20-31); CHLORIDE LEVEL 108 MMOL/L (98-107); CREATININE FOR GFR 1.51 MG/DL (0.55-1.30); GLOMERULAR FILTRATION RATE 35.5 (>39); GLUCOSE, FASTING 162 MG/DL (74-106); POTASSIUM SERUM 4.6 MMOL/L (3.5-5.1); SODIUM LEVEL 140 MMOL/L (136-145); TOTAL PROTEIN 6.5 G/DL (5.7-8.2)
[2023-02-01] MEDS ORDERED: ONDANSETRON 4MG 2ML VIAL IV ONE (19:25)
[2023-02-01] MEDS ORDERED: oxyCODONE 20MG CR TAB PO ONE (19:25)
[2023-02-01] MEDS ORDERED: oxyCODONE 5MG TAB PO ONE (19:25)
[2023-02-01] MEDS ORDERED: oxyCODONE 10 MG CR TAB PO ONE (19:30)
[2023-02-01 19:42] LABS: RSV AMPLIFICATION NEGATIVE (NEGATIVE)
[2023-02-01] MEDS ORDERED: ISOVUE-370 76% 100ML VIAL As Ordered ONE (19:45)
[2023-02-01] MEDS: METOPROLOL SUCC (TopROL XL) 50MG **XL** TAB PO SCH (21:00)
[2023-02-01] MEDS ORDERED: cefTRIAXone SOD 1 GM in D5W MINI-BAG PLUS 50 ML IV ONE (21:25)
[2023-02-01] MEDS ORDERED: fentaNYL 100 MCG/2 ML INJECTION IV ONE (21:30)
[2023-02-01] MEDS ORDERED: FLUTICASONE PROP 0.05% NASAL SPRAY 16 GM (FLONASE) NARES PRN (22:55)
[2023-02-01] MEDS ORDERED: ONDANSETRON 4MG 2ML VIAL IV PRN (22:55)
[2023-02-01] MEDS ORDERED: LR 1,000 ML IV SCH (22:55)
[2023-02-01] MEDS ORDERED: ACETAMINOPHEN TAB 650MG DOSE (2X325MG) PO PRN (22:55)
[2023-02-01] MEDS ORDERED: MIRA1POW3 PO (22:59)
[2023-02-01] MEDS ORDERED: CALC1CAP31 PO (22:59)
[2023-02-01] MEDS ORDERED: ASPI-161 PO (22:59)
[2023-02-01] MEDS ORDERED: ONDA4TAB6 PO (22:59)
[2023-02-01] MEDS ORDERED: FLON1SPR NARES (22:59)
[2023-02-01] MEDS ORDERED: HOME MED LIST COMPLETE! XX SCH (23:00)
[2023-02-01] MEDS: PREGABALIN 100 MG CAP (LYRICA) PO SCH (23:34)
[2023-02-01] MEDS: traZODone 100 MG TAB PO SCH (23:35)
[2023-02-01] MEDS ORDERED: NS 1,000 ML IV SCH (23:35)
[2023-02-01] MEDS: PANTOPRAZOLE 40MG VIAL IV SCH (23:35)
[2023-02-01] MEDS: ASPIRIN 81MG ENTERIC TABLET PO SCH (23:35)
[2023-02-02] VITALS (22 sets, daily range): BP systolic 108–138; BP diastolic 54–64; TEMP 96.3–98.5; O2SAT 77–98
[2023-02-02] MEDS: AMITRIPTYLINE 10MG TABLET PO SCH ×2 (00:25→22:06)
[2023-02-02] MEDS: oxyCODONE 20MG CR TAB PO SCH ×3 (00:25→22:07)
[2023-02-02] MEDS: rOPINIRole 1MG TAB PO SCH ×3 (00:26→22:07)
[2023-02-02] MEDS ORDERED: DEXTROSE 50% 50ML SYRINGE IV PRN (00:30)
[2023-02-02] MEDS ORDERED: GLUCAGON INJ 1MG VIAL SC PRN (00:30)
[2023-02-02] MEDS ORDERED: GLUCOSE 4GM CHEW TABLET PO PRN (00:30)
[2023-02-02] MEDS: MORPHINE 2 MG/ML 1ML VIAL IV PRN ×3 (01:31→16:58)
[2023-02-02] MEDS: oxyCODONE 5MG TAB PO PRN ×2 (03:51→12:36)
[2023-02-02] MEDS: LEVOTHYROXINE 50MCG TABLET (0.05MG) PO SCH (06:24)
[2023-02-02 06:37] LABS: HEMATOCRIT 22.6 % (36.0-47.0); MEAN CORPUSCULAR HEMOGLOBIN 32.7 pg (27.0-33.0); MEAN CORPUSCULAR VOLUME 105.6 fl (80.0-96.0); PLATELET COUNT, AUTOMATED 178 10^3/uL (150-450); RED BLOOD COUNT 2.14 10^6/uL (4.00-5.40); WHITE BLOOD COUNT 5.2 10^3/uL (4.0-10.0)
[2023-02-02 07:29] LABS: ALBUMIN 2.6 G/DL (3.2-5.2); ALKALINE PHOSPHATASE 83 U/L (46-116); ALT/SGPT < 9 U/L (7.0-40); AST/SGOT 11 U/L (<34); BILIRUBIN,TOTAL 0.4 MG/DL (0.3-1.2); BLOOD UREA NITROGEN 34 MG/DL (9-23); CALCIUM LEVEL 7.3 MG/DL (8.3-10.6); CARBON DIOXIDE LEVEL 25 MMOL/L (20-31); CHLORIDE LEVEL 106 MMOL/L (98-107); CREATININE FOR GFR 1.67 MG/DL (0.55-1.30); GLOMERULAR FILTRATION RATE 31.6 (>39); GLUCOSE, FASTING 128 MG/DL (74-106); MAGNESIUM LEVEL 1.5 MG/DL (1.8-2.4); POTASSIUM SERUM 4.2 MMOL/L (3.5-5.1); SODIUM LEVEL 139 MMOL/L (136-145); TOTAL PROTEIN 5.6 G/DL (5.7-8.2)
[2023-02-02] MEDS: PREGABALIN 100 MG CAP (LYRICA) PO SCH ×3 (08:58→22:08)
[2023-02-02] MEDS: metroNIDAZOLE 500 MG in IV 1 EA IV SCH ×2 (08:58→16:57)
[2023-02-02] MEDS: CALCITRIOL 0.25 MCG CAP (S0169) PO SCH (08:58)
[2023-02-02] MEDS: DOCUSATE SODIUM 100MG CAPSULE PO SCH ×2 (08:59→22:06)
[2023-02-02] MEDS: CYCLOBENZAPRINE 5MG TABLET PO SCH ×3 (08:59→22:09)
[2023-02-02] MEDS ORDERED: ENOXAPARIN 40MG/0.4ML SYRINGE (J1650 PER 10MG) SC SCH (09:00)
[2023-02-02] MEDS: LR 1,000 ML IV SCH (14:41)
[2023-02-02] MEDS: traZODone 100 MG TAB PO SCH (21:00)
[2023-02-02] MEDS: ASPIRIN 81MG ENTERIC TABLET PO SCH (22:06)
[2023-02-02] MEDS: cefTRIAXone SOD 1 GM in D5W MINI-BAG PLUS 50 ML IV SCH (22:06)
[2023-02-02] MEDS: METOPROLOL SUCC (TopROL XL) 50MG **XL** TAB PO SCH (22:08)
[2023-02-02] MEDS: PANTOPRAZOLE 40MG VIAL IV SCH (22:08)
[2023-02-03] VITALS (19 sets, daily range): BP systolic 103–135; BP diastolic 51–68; TEMP 97.5–98.6; O2SAT 88–96
[2023-02-03] MEDS: LR 1,000 ML IV SCH ×2 (02:00→15:15)
[2023-02-03] MEDS: metroNIDAZOLE 500 MG in IV 1 EA IV SCH ×3 (02:07→15:15)
[2023-02-03] MEDS: oxyCODONE 5MG TAB PO PRN ×2 (04:53→12:50)
[2023-02-03] MEDS ORDERED: HEPARIN SOD (PORCINE) 5000UNITS/ML 1ML VIAL/SYRINGE SQ SCH (06:00)
[2023-02-03] MEDS: MORPHINE 2 MG/ML 1ML VIAL IV PRN (06:38)
[2023-02-03] MEDS: LEVOTHYROXINE 50MCG TABLET (0.05MG) PO SCH (06:38)
[2023-02-03 07:48] LABS: EOS % 1.1 % (0.0-3.0); HEMATOCRIT 21.9 % (36.0-47.0); LYMPH # 1.1 10^3/uL (1.5-5.0); LYMPH % 31.4 % (24.0-44.0); MEAN CORPUSCULAR HEMOGLOBIN 32.9 pg (27.0-33.0); MEAN CORPUSCULAR HGB CONC 31.1 g/dl (32.0-36.5); MEAN CORPUSCULAR VOLUME 105.8 fl (80.0-96.0); MONO # 0.4 10^3/uL (0.0-0.8); NEUTROPHILS % 56.2 % (36.0-66.0); PLATELET COUNT, AUTOMATED 157 10^3/uL (150-450); RED BLOOD COUNT 2.07 10^6/uL (4.00-5.40); WHITE BLOOD COUNT 3.5 10^3/uL (4.0-10.0)
[2023-02-03 07:57] LABS: HEMOGLOBIN 6.8 g/dl (12.0-15.5)
[2023-02-03 08:32] LABS: CALCIUM LEVEL 8.4 MG/DL (8.3-10.6); CREATININE FOR GFR 1.48 MG/DL (0.55-1.30); GLOMERULAR FILTRATION RATE 36.3 (>39); POTASSIUM SERUM 4.2 MMOL/L (3.5-5.1)
[2023-02-03] MEDS: PREGABALIN 100 MG CAP (LYRICA) PO SCH ×3 (09:00→20:57)
[2023-02-03] MEDS: DOCUSATE SODIUM 100MG CAPSULE PO SCH ×2 (09:00→20:57)
[2023-02-03] MEDS: oxyCODONE 20MG CR TAB PO SCH ×2 (09:00→20:57)
[2023-02-03] MEDS: CYCLOBENZAPRINE 5MG TABLET PO SCH ×3 (09:00→20:58)
[2023-02-03] MEDS: CALCITRIOL 0.25 MCG CAP (S0169) PO SCH (09:00)
[2023-02-03 14:29] LABS: HEMOGLOBIN 7.4 g/dl (12.0-15.5)
[2023-02-03] MEDS: rOPINIRole 1MG TAB PO SCH ×2 (15:14→20:57)
[2023-02-03] MEDS: MORPHINE 10 MG/ML 1ML VIAL IV PRN ×2 (15:14→22:22)
[2023-02-03 18:03] LABS: HEMATOCRIT 24.2 % (36.0-47.0); HEMOGLOBIN 7.3 g/dl (12.0-15.5)
[2023-02-03] MEDS: ASPIRIN 81MG ENTERIC TABLET PO SCH (20:57)
[2023-02-03] MEDS: traZODone 100 MG TAB PO SCH (20:57)
[2023-02-03] MEDS: METOPROLOL SUCC (TopROL XL) 50MG **XL** TAB PO SCH (20:58)
[2023-02-03] MEDS: AMITRIPTYLINE 10MG TABLET PO SCH (20:58)
[2023-02-03] MEDS: PANTOPRAZOLE 40MG VIAL IV SCH (20:59)
[2023-02-03] MEDS: cefTRIAXone SOD 1 GM in D5W MINI-BAG PLUS 50 ML IV SCH (21:01)
[2023-02-04] VITALS (23 sets, daily range): BP systolic 102–168; BP diastolic 50–70; TEMP 97–98.7; O2SAT 65–100
[2023-02-04] MEDS: LR 1,000 ML IV SCH (01:00)
[2023-02-04] MEDS: metroNIDAZOLE 500 MG in IV 1 EA IV SCH ×2 (01:03→07:57)
[2023-02-04 02:22] LABS: HEMATOCRIT 23.3 % (36.0-47.0); HEMOGLOBIN 7.3 g/dl (12.0-15.5)
[2023-02-04] MEDS: MORPHINE 10 MG/ML 1ML VIAL IV PRN ×5 (04:06→22:22)
[2023-02-04 05:49] LABS: BASO % 0.4 % (0.0-1.0); EOS # 0.1 10^3/uL (0.0-0.5); EOS % 2.9 % (0.0-3.0); HEMATOCRIT 22.4 % (36.0-47.0); HEMOGLOBIN 7.1 g/dl (12.0-15.5); LYMPH % 35.9 % (24.0-44.0); MEAN CORPUSCULAR HGB CONC 31.7 g/dl (32.0-36.5); MEAN CORPUSCULAR VOLUME 100.9 fl (80.0-96.0); MONO # 0.2 10^3/uL (0.0-0.8); MONO % 8.8 % (2.0-8.0); NEUTROPHILS # 1.4 10^3/uL (1.5-8.5); NEUTROPHILS % 51.6 % (36.0-66.0); PLATELET COUNT, AUTOMATED 156 10^3/uL (150-450); RED BLOOD COUNT 2.22 10^6/uL (4.00-5.40); WHITE BLOOD COUNT 2.7 10^3/uL (4.0-10.0)
[2023-02-04 06:00] LABS: CALCIUM LEVEL 7.5 MG/DL (8.3-10.6); CREATININE FOR GFR 1.13 MG/DL (0.55-1.30); GLOMERULAR FILTRATION RATE 49.6 (>39); POTASSIUM SERUM 4.3 MMOL/L (3.5-5.1)
[2023-02-04] MEDS: LEVOTHYROXINE 50MCG TABLET (0.05MG) PO SCH (06:00)
[2023-02-04] MEDS ORDERED: LIDOCAINE 1% MDV 20ML VIAL As Ordered ONE (08:44)
[2023-02-04] MEDS ORDERED: E-Z-PAQUE 96% w/w SUSP 176GM BTL As Ordered ONE (09:33)
[2023-02-04] MEDS ORDERED: E-Z-GAS II EFFERVESCENT PACKET (SODIUM BICARB./CITRIC ACID/SIMETHICONE) As Ordered ONE (09:33)
[2023-02-04] MEDS ORDERED: E-Z-HD 98% w/w 340GM SUSP BTL As Ordered ONE (09:34)
[2023-02-04] MEDS ORDERED: MORPHINE 10 MG/ML 1ML VIAL As Ordered ONE (10:57)
[2023-02-04] MEDS ORDERED: MORPHINE 10 MG/ML 1ML VIAL IV PRN (13:05)
[2023-02-04] MEDS ORDERED: VANCOMYCIN HCL 1,150 MG in IV FLUID PLACE HOLDER 1 EA IV SCH (14:10)
[2023-02-04] MEDS ORDERED: MOXIFLOXACIN HCL 400 MG in IV 1 EA IV SCH (14:15)
[2023-02-04] MEDS: ASPIRIN 81MG ENTERIC TABLET PO SCH (15:45)
[2023-02-04] MEDS: rOPINIRole 1MG TAB PO SCH ×2 (15:45→20:31)
[2023-02-04] MEDS: PREGABALIN 100 MG CAP (LYRICA) PO SCH ×3 (15:46→20:31)
[2023-02-04] MEDS: CALCITRIOL 0.25 MCG CAP (S0169) PO SCH (15:46)
[2023-02-04] MEDS: oxyCODONE 20MG CR TAB PO SCH ×2 (15:46→20:30)
[2023-02-04] MEDS: CYCLOBENZAPRINE 5MG TABLET PO SCH ×3 (15:47→20:30)
[2023-02-04] MEDS: DOCUSATE SODIUM 100MG CAPSULE PO SCH ×2 (15:47→20:30)
[2023-02-04] MEDS ORDERED: VANCOMYCIN HCL 750 MG, VIAL MATE ADAPTER 1 EACH in D5W 250 ML IV ONE ×2 (16:00→17:00)
[2023-02-04] MEDS ORDERED: VANCOMYCIN HCL 1,000 MG, VIAL MATE ADAPTER 1 EACH in D5W 250 ML IV SCH (16:05)
[2023-02-04] MEDS: AMITRIPTYLINE 10MG TABLET PO SCH (20:30)
[2023-02-04] MEDS: PANTOPRAZOLE 40MG VIAL IV SCH (20:30)
[2023-02-04] MEDS: METOPROLOL SUCC (TopROL XL) 50MG **XL** TAB PO SCH (20:31)
[2023-02-04] MEDS: traZODone 100 MG TAB PO SCH (20:31)
[2023-02-04] MEDS: cefTRIAXone SOD 1 GM in D5W MINI-BAG PLUS 50 ML IV SCH (22:21)
[2023-02-05] VITALS (9 sets, daily range): BP systolic 107–160; BP diastolic 64–74; TEMP 97.7–98.6; O2SAT 88–96
[2023-02-05] MEDS: MORPHINE 10 MG/ML 1ML VIAL IV PRN ×3 (02:59→20:31)
[2023-02-05] MEDS: SODIUM CHLORIDE 0.9% INJ 10 ML SYR IV SCH ×2 (05:34→11:52)
[2023-02-05] MEDS: LEVOTHYROXINE 50MCG TABLET (0.05MG) PO SCH (05:34)
[2023-02-05] MEDS: SODIUM CHLORIDE 0.9% INJ 10 ML SYR IV PRN ×3 (05:35→12:44)
[2023-02-05 07:37] LABS: BASO % 0.6 % (0.0-1.0); EOS # 0.1 10^3/uL (0.0-0.5); EOS % 2.6 % (0.0-3.0); HEMATOCRIT 29.9 % (36.0-47.0); HEMOGLOBIN 9.8 g/dl (12.0-15.5); LYMPH % 28.4 % (24.0-44.0); MEAN CORPUSCULAR HEMOGLOBIN 30.5 pg (27.0-33.0); MEAN CORPUSCULAR HGB CONC 32.8 g/dl (32.0-36.5); MEAN CORPUSCULAR VOLUME 93.1 fl (80.0-96.0); MONO # 0.4 10^3/uL (0.0-0.8); MONO % 10.3 % (2.0-8.0); NEUTROPHILS % 57.5 % (36.0-66.0); PLATELET COUNT, AUTOMATED 202 10^3/uL (150-450); RED BLOOD COUNT 3.21 10^6/uL (4.00-5.40); WHITE BLOOD COUNT 3.4 10^3/uL (4.0-10.0)
[2023-02-05 07:51] LABS: VANCOMYCIN RANDOM 11.1 UG/ML
[2023-02-05 07:52] LABS: BLOOD UREA NITROGEN 11 MG/DL (9-23); CALCIUM LEVEL 7.8 MG/DL (8.3-10.6); CARBON DIOXIDE LEVEL 26 MMOL/L (20-31); CHLORIDE LEVEL 108 MMOL/L (98-107); GLOMERULAR FILTRATION RATE > 60.0 (>39); GLUCOSE, FASTING 88 MG/DL (74-106); MAGNESIUM LEVEL 1.4 MG/DL (1.8-2.4); SODIUM LEVEL 138 MMOL/L (136-145)
[2023-02-05] MEDS ORDERED: VANCOMYCIN HCL 1,000 MG, VIAL MATE ADAPTER 1 EACH in D5W 250 ML IV SCH (09:00)
[2023-02-05] MEDS: CALCITRIOL 0.25 MCG CAP (S0169) PO SCH (09:17)
[2023-02-05] MEDS: PREGABALIN 100 MG CAP (LYRICA) PO SCH ×3 (09:18→20:31)
[2023-02-05] MEDS: CYCLOBENZAPRINE 5MG TABLET PO SCH ×3 (09:19→20:32)
[2023-02-05] MEDS: DOCUSATE SODIUM 100MG CAPSULE PO SCH ×2 (09:19→20:31)
[2023-02-05] MEDS: oxyCODONE 5MG TAB PO PRN ×2 (09:22→15:28)
[2023-02-05] MEDS: oxyCODONE 20MG CR TAB PO SCH ×2 (09:23→20:32)
[2023-02-05] MEDS: MAGNESIUM OXIDE 400MG TAB (MAG-OX) PO SCH ×3 (09:24→20:31)
[2023-02-05] MEDS: PRAVASTATIN 20 MG TAB PO SCH (10:46)
[2023-02-05] MEDS: PANTOPRAZOLE 40MG VIAL IV SCH ×2 (11:52→20:31)
[2023-02-05] MEDS: LR 1,000 ML IV SCH ×2 (14:32→23:38)
[2023-02-05] MEDS: rOPINIRole 1MG TAB PO SCH ×2 (15:27→20:31)
[2023-02-05] MEDS: cefTRIAXone SOD 1 GM in D5W MINI-BAG PLUS 50 ML IV SCH (20:31)
[2023-02-05] MEDS: AMITRIPTYLINE 10MG TABLET PO SCH (20:32)
[2023-02-05] MEDS: ASPIRIN 81MG ENTERIC TABLET PO SCH (20:32)
[2023-02-05] MEDS: traZODone 100 MG TAB PO SCH (20:32)
[2023-02-05] MEDS: METOPROLOL SUCC (TopROL XL) 50MG **XL** TAB PO SCH (20:38)
[2023-02-06] MEDS: SODIUM CHLORIDE 0.9% INJ 10 ML SYR IV SCH ×2 (06:03→17:18)
[2023-02-06] MEDS: LEVOTHYROXINE 50MCG TABLET (0.05MG) PO SCH (06:03)
[2023-02-06 06:15] VITALS: BP 157/71; TEMP 97.7; O2SAT 92
[2023-02-06] MEDS: LR 1,000 ML IV SCH (08:07)
[2023-02-06 08:16] LABS: BASO % 0.6 % (0.0-1.0); EOS # 0.1 10^3/uL (0.0-0.5); EOS % 3.4 % (0.0-3.0); HEMATOCRIT 31.8 % (36.0-47.0); HEMOGLOBIN 10.7 g/dl (12.0-15.5); LYMPH # 1.1 10^3/uL (1.5-5.0); MEAN CORPUSCULAR HEMOGLOBIN 31.5 pg (27.0-33.0); MEAN CORPUSCULAR HGB CONC 33.6 g/dl (32.0-36.5); MEAN CORPUSCULAR VOLUME 93.5 fl (80.0-96.0); MONO # 0.3 10^3/uL (0.0-0.8); NEUTROPHILS # 1.7 10^3/uL (1.5-8.5); NEUTROPHILS % 52.1 % (36.0-66.0); PLATELET COUNT, AUTOMATED 201 10^3/uL (150-450); WHITE BLOOD COUNT 3.2 10^3/uL (4.0-10.0)
[2023-02-06 08:41] LABS: BLOOD UREA NITROGEN 10 MG/DL (9-23); CALCIUM LEVEL 8.4 MG/DL (8.3-10.6); CARBON DIOXIDE LEVEL 25 MMOL/L (20-31); CHLORIDE LEVEL 105 MMOL/L (98-107); CREATININE FOR GFR 0.78 MG/DL (0.55-1.30); GLOMERULAR FILTRATION RATE > 60.0 (>39); GLUCOSE, FASTING 84 MG/DL (74-106); POTASSIUM SERUM 4.2 MMOL/L (3.5-5.1); SODIUM LEVEL 138 MMOL/L (136-145)
[2023-02-06] MEDS: PANTOPRAZOLE 40MG VIAL IV SCH ×2 (10:54→22:15)
[2023-02-06] MEDS: CALCITRIOL 0.25 MCG CAP (S0169) PO SCH (10:55)
[2023-02-06] MEDS: oxyCODONE 20MG CR TAB PO SCH ×2 (10:55→22:17)
[2023-02-06] MEDS: CYCLOBENZAPRINE 5MG TABLET PO SCH ×3 (10:56→22:17)
[2023-02-06] MEDS: DOCUSATE SODIUM 100MG CAPSULE PO SCH ×2 (10:56→22:18)
[2023-02-06] MEDS: VANCOMYCIN HCL 1,000 MG, VIAL MATE ADAPTER 1 EACH in D5W 250 ML IV SCH (10:59)
[2023-02-06] MEDS: PREGABALIN 100 MG CAP (LYRICA) PO SCH ×3 (10:59→22:17)
[2023-02-06] MEDS: PRAVASTATIN 20 MG TAB PO SCH (10:59)
[2023-02-06] MEDS: MAGNESIUM OXIDE 400MG TAB (MAG-OX) PO SCH ×3 (10:59→22:17)
[2023-02-06] MEDS: HEPARIN SOD (PORCINE) 5000UNITS/ML 1ML VIAL/SYRINGE SQ SCH ×2 (13:31→22:18)
[2023-02-06] MEDS: oxyCODONE 5MG TAB PO PRN (13:40)
[2023-02-06 14:00] VITALS: BP 179/74; TEMP 97.9; O2SAT 92
[2023-02-06] MEDS: MORPHINE 10 MG/ML 1ML VIAL IV PRN ×2 (15:02→23:22)
[2023-02-06] MEDS: rOPINIRole 1MG TAB PO SCH ×2 (15:56→22:18)
[2023-02-06 21:50] VITALS: BP 163/74; TEMP 98.6; O2SAT 94
[2023-02-06] MEDS: METOPROLOL SUCC (TopROL XL) 50MG **XL** TAB PO SCH (22:15)
[2023-02-06] MEDS: AMITRIPTYLINE 10MG TABLET PO SCH (22:15)
[2023-02-06] MEDS: ASPIRIN 81MG ENTERIC TABLET PO SCH (22:18)
[2023-02-06] MEDS: cefTRIAXone SOD 1 GM in D5W MINI-BAG PLUS 50 ML IV SCH (22:18)
[2023-02-06] MEDS: traZODone 100 MG TAB PO SCH (22:19)
[2023-02-07] MEDS: VANCOMYCIN HCL 1,000 MG, VIAL MATE ADAPTER 1 EACH in D5W 250 ML IV SCH (03:53)
[2023-02-07] MEDS: MORPHINE 10 MG/ML 1ML VIAL IV PRN ×4 (04:00→20:20)
[2023-02-07 06:05] LABS: BASO % 0.7 % (0.0-1.0); EOS # 0.1 10^3/uL (0.0-0.5); EOS % 3.2 % (0.0-3.0); HEMOGLOBIN 10.8 g/dl (12.0-15.5); LYMPH # 1.1 10^3/uL (1.5-5.0); MEAN CORPUSCULAR HEMOGLOBIN 30.7 pg (27.0-33.0); MEAN CORPUSCULAR HGB CONC 32.7 g/dl (32.0-36.5); MEAN CORPUSCULAR VOLUME 93.8 fl (80.0-96.0); MONO # 0.3 10^3/uL (0.0-0.8); MONO % 11.9 % (2.0-8.0); NEUTROPHILS # 1.2 10^3/uL (1.5-8.5); NEUTROPHILS % 43.1 % (36.0-66.0); PLATELET COUNT, AUTOMATED 214 10^3/uL (150-450); RED BLOOD COUNT 3.52 10^6/uL (4.00-5.40); WHITE BLOOD COUNT 2.9 10^3/uL (4.0-10.0)
[2023-02-07 06:18] VITALS: BP 164/68; TEMP 97.2; O2SAT 89
[2023-02-07] MEDS: LEVOTHYROXINE 50MCG TABLET (0.05MG) PO SCH (06:36)
[2023-02-07] MEDS: HEPARIN SOD (PORCINE) 5000UNITS/ML 1ML VIAL/SYRINGE SQ SCH ×3 (06:36→21:48)
[2023-02-07] MEDS: SODIUM CHLORIDE 0.9% INJ 10 ML SYR IV SCH ×2 (06:36→15:23)
[2023-02-07 06:39] LABS: BLOOD UREA NITROGEN 10 MG/DL (9-23); CALCIUM LEVEL 8.9 MG/DL (8.3-10.6); CARBON DIOXIDE LEVEL 30 MMOL/L (20-31); CHLORIDE LEVEL 104 MMOL/L (98-107); CREATININE FOR GFR 0.82 MG/DL (0.55-1.30); GLOMERULAR FILTRATION RATE > 60.0 (>39); GLUCOSE, FASTING 92 MG/DL (74-106); POTASSIUM SERUM 3.9 MMOL/L (3.5-5.1); SODIUM LEVEL 138 MMOL/L (136-145)
[2023-02-07 07:51] LABS: IRON (FE) 69 UG/DL (50-170); PERCENT SATURATION 40.6 % (13.2-45.0); TOTAL IRON BINDING CAPACITY 170 UG/DL (250-425)
[2023-02-07 07:53] LABS: FOLATE 11.14 NG/ML (>5.4)
[2023-02-07 07:54] LABS: FERRITIN 253.9 NG/ML (7.3-270.7); VITAMIN B12 LEVEL 375 PG/ML (211-911)
[2023-02-07] MEDS: MAGNESIUM OXIDE 400MG TAB (MAG-OX) PO SCH ×3 (10:13→21:49)
[2023-02-07] MEDS: PREGABALIN 100 MG CAP (LYRICA) PO SCH ×3 (10:13→21:49)
[2023-02-07] MEDS: CALCITRIOL 0.25 MCG CAP (S0169) PO SCH (10:13)
[2023-02-07] MEDS: oxyCODONE 20MG CR TAB PO SCH ×2 (10:14→21:50)
[2023-02-07] MEDS: PRAVASTATIN 20 MG TAB PO SCH (10:14)
[2023-02-07] MEDS: CYCLOBENZAPRINE 5MG TABLET PO SCH ×3 (10:16→21:49)
[2023-02-07] MEDS: DOCUSATE SODIUM 100MG CAPSULE PO SCH ×2 (10:16→21:49)
[2023-02-07] MEDS: PANTOPRAZOLE 40MG VIAL IV SCH ×2 (10:16→21:47)
[2023-02-07] MEDS ORDERED: VANCOMYCIN HCL 750 MG, VIAL MATE ADAPTER 1 EACH in D5W 250 ML IV SCH (11:00)
[2023-02-07 14:00] VITALS: BP 158/73; TEMP 98.5; O2SAT 92
[2023-02-07] MEDS: FUROSEMIDE 20 MG TAB PO SCH (14:33)
[2023-02-07] MEDS: rOPINIRole 1MG TAB PO SCH ×2 (15:21→21:49)
[2023-02-07] MEDS: VANCOMYCIN HCL 750 MG, VIAL MATE ADAPTER 1 EACH in D5W 250 ML IV SCH (15:24)
[2023-02-07] MEDS: cefTRIAXone SOD 1 GM in D5W MINI-BAG PLUS 50 ML IV SCH (21:48)
[2023-02-07] MEDS: ASPIRIN 81MG ENTERIC TABLET PO SCH (21:49)
[2023-02-07] MEDS: traZODone 100 MG TAB PO SCH (21:49)
[2023-02-07] MEDS: AMITRIPTYLINE 10MG TABLET PO SCH (21:49)
[2023-02-07] MEDS: METOPROLOL SUCC (TopROL XL) 50MG **XL** TAB PO SCH (21:51)
[2023-02-07 22:38] VITALS: BP 122/75; TEMP 97.5; O2SAT 94
[2023-02-08] MEDS: MORPHINE 10 MG/ML 1ML VIAL IV PRN ×3 (00:44→10:50)
[2023-02-08] MEDS: VANCOMYCIN HCL 750 MG, VIAL MATE ADAPTER 1 EACH in D5W 250 ML IV SCH (03:00)
[2023-02-08] MEDS: LEVOTHYROXINE 50MCG TABLET (0.05MG) PO SCH (05:58)
[2023-02-08] MEDS: HEPARIN SOD (PORCINE) 5000UNITS/ML 1ML VIAL/SYRINGE SQ SCH ×3 (05:58→21:09)
[2023-02-08] MEDS: SODIUM CHLORIDE 0.9% INJ 10 ML SYR IV SCH ×2 (05:59→10:51)
[2023-02-08 06:01] VITALS: BP 146/70; TEMP 97.3; O2SAT 92
[2023-02-08 06:11] LABS: BASO % 0.3 % (0.0-1.0); EOS # 0.1 10^3/uL (0.0-0.5); EOS % 2.9 % (0.0-3.0); HEMATOCRIT 32.1 % (36.0-47.0); HEMOGLOBIN 10.5 g/dl (12.0-15.5); LYMPH # 1.5 10^3/uL (1.5-5.0); LYMPH % 46.9 % (24.0-44.0); MEAN CORPUSCULAR HEMOGLOBIN 30.9 pg (27.0-33.0); MEAN CORPUSCULAR HGB CONC 32.7 g/dl (32.0-36.5); MEAN CORPUSCULAR VOLUME 94.4 fl (80.0-96.0); MONO # 0.3 10^3/uL (0.0-0.8); NEUTROPHILS # 1.2 10^3/uL (1.5-8.5); NEUTROPHILS % 38.3 % (36.0-66.0); PLATELET COUNT, AUTOMATED 215 10^3/uL (150-450); WHITE BLOOD COUNT 3.1 10^3/uL (4.0-10.0)
[2023-02-08 06:41] LABS: BLOOD UREA NITROGEN 11 MG/DL (9-23); CARBON DIOXIDE LEVEL 30 MMOL/L (20-31); CHLORIDE LEVEL 102 MMOL/L (98-107); CREATININE FOR GFR 0.91 MG/DL (0.55-1.30); GLOMERULAR FILTRATION RATE > 60.0 (>39); GLUCOSE, FASTING 95 MG/DL (74-106); POTASSIUM SERUM 3.9 MMOL/L (3.5-5.1); SODIUM LEVEL 139 MMOL/L (136-145)
[2023-02-08] MEDS: PRAVASTATIN 20 MG TAB PO SCH (10:45)
[2023-02-08] MEDS: CYCLOBENZAPRINE 5MG TABLET PO SCH ×3 (10:46→21:09)
[2023-02-08] MEDS: CALCITRIOL 0.25 MCG CAP (S0169) PO SCH (10:46)
[2023-02-08] MEDS: DOCUSATE SODIUM 100MG CAPSULE PO SCH ×2 (10:46→21:00)
[2023-02-08] MEDS: oxyCODONE 20MG CR TAB PO SCH ×2 (10:46→21:08)
[2023-02-08] MEDS: PREGABALIN 100 MG CAP (LYRICA) PO SCH ×3 (10:47→21:09)
[2023-02-08] MEDS: FUROSEMIDE 20 MG TAB PO SCH (10:48)
[2023-02-08] MEDS: MAGNESIUM OXIDE 400MG TAB (MAG-OX) PO SCH ×3 (10:49→21:10)
[2023-02-08] MEDS: PANTOPRAZOLE 40MG VIAL IV SCH ×2 (11:00→21:10)
[2023-02-08 14:00] VITALS: BP 145/67; TEMP 97.3; O2SAT 93
[2023-02-08] MEDS: rOPINIRole 1MG TAB PO SCH ×2 (15:20→21:09)
[2023-02-08] MEDS ORDERED: VANCOMYCIN HCL 750 MG, VIAL MATE ADAPTER 1 EACH in D5W 250 ML IV SCH ×2 (16:00→17:00)
[2023-02-08] MEDS: metroNIDAZOLE (FLAGYL) 500MG TABLET PO SCH ×2 (17:18→21:08)
[2023-02-08] MEDS: DICYCLOMINE 10 MG CAP PO SCH ×2 (18:52→23:36)
[2023-02-08 20:45] VITALS: BP 92/63; TEMP 97.2; O2SAT 95
[2023-02-08] MEDS: traZODone 100 MG TAB PO SCH (21:08)
[2023-02-08] MEDS: ASPIRIN 81MG ENTERIC TABLET PO SCH (21:09)
[2023-02-08] MEDS: AMITRIPTYLINE 10MG TABLET PO SCH (21:09)
[2023-02-08] MEDS: METOPROLOL SUCC (TopROL XL) 50MG **XL** TAB PO SCH (21:09)
[2023-02-08] MEDS: cefTRIAXone SOD 1 GM in D5W MINI-BAG PLUS 50 ML IV SCH (21:10)
[2023-02-08] MEDS: oxyCODONE 5MG TAB PO PRN (21:10)
[2023-02-08] MEDS ORDERED: oxyCODONE 5MG TAB PO ONE (22:25)
[2023-02-09] MEDS: metroNIDAZOLE (FLAGYL) 500MG TABLET PO SCH ×2 (05:31→13:56)
[2023-02-09] MEDS: DICYCLOMINE 10 MG CAP PO SCH ×2 (05:31→11:49)
[2023-02-09] MEDS: LEVOTHYROXINE 50MCG TABLET (0.05MG) PO SCH (05:31)
[2023-02-09] MEDS: SODIUM CHLORIDE 0.9% INJ 10 ML SYR IV SCH (05:32)
[2023-02-09] MEDS: HEPARIN SOD (PORCINE) 5000UNITS/ML 1ML VIAL/SYRINGE SQ SCH (05:32)
[2023-02-09] MEDS: oxyCODONE 5MG TAB PO PRN ×2 (05:42→11:49)
[2023-02-09 06:14] LABS: BASO % 0.7 % (0.0-1.0); EOS # 0.1 10^3/uL (0.0-0.5); EOS % 3.9 % (0.0-3.0); HEMATOCRIT 32.1 % (36.0-47.0); HEMOGLOBIN 10.7 g/dl (12.0-15.5); LYMPH # 1.3 10^3/uL (1.5-5.0); LYMPH % 41.5 % (24.0-44.0); MEAN CORPUSCULAR HEMOGLOBIN 31.2 pg (27.0-33.0); MEAN CORPUSCULAR HGB CONC 33.3 g/dl (32.0-36.5); MEAN CORPUSCULAR VOLUME 93.6 fl (80.0-96.0); MONO # 0.4 10^3/uL (0.0-0.8); MONO % 11.4 % (2.0-8.0); NEUTROPHILS # 1.3 10^3/uL (1.5-8.5); NEUTROPHILS % 41.8 % (36.0-66.0); PLATELET COUNT, AUTOMATED 199 10^3/uL (150-450); RED BLOOD COUNT 3.43 10^6/uL (4.00-5.40); WHITE BLOOD COUNT 3.1 10^3/uL (4.0-10.0)
[2023-02-09 06:31] LABS: BLOOD UREA NITROGEN 9 MG/DL (9-23); CALCIUM LEVEL 7.8 MG/DL (8.3-10.6); CARBON DIOXIDE LEVEL 30 MMOL/L (20-31); CHLORIDE LEVEL 104 MMOL/L (98-107); CREATININE FOR GFR 0.83 MG/DL (0.55-1.30); GLOMERULAR FILTRATION RATE > 60.0 (>39); GLUCOSE, FASTING 106 MG/DL (74-106); POTASSIUM SERUM 3.9 MMOL/L (3.5-5.1); SODIUM LEVEL 139 MMOL/L (136-145)
[2023-02-09 06:38] VITALS: BP 137/68; TEMP 97.2; O2SAT 95
[2023-02-09] MEDS ORDERED: METR-265 PO (08:13)
[2023-02-09] MEDS ORDERED: DICY1CAP8 PO (08:13)
[2023-02-09] MEDS ORDERED: BACT800T5 PO (08:13)
[2023-02-09] MEDS: PANTOPRAZOLE 40MG VIAL IV SCH (09:54)
[2023-02-09] MEDS: CALCITRIOL 0.25 MCG CAP (S0169) PO SCH (09:54)
[2023-02-09 09:55] VITALS: BP 172/77
[2023-02-09] MEDS: FUROSEMIDE 20 MG TAB PO SCH (09:55)
[2023-02-09] MEDS: oxyCODONE 20MG CR TAB PO SCH (09:55)
[2023-02-09] MEDS: PRAVASTATIN 20 MG TAB PO SCH (09:55)
[2023-02-09] MEDS: DOCUSATE SODIUM 100MG CAPSULE PO SCH (09:55)
[2023-02-09] MEDS: CYCLOBENZAPRINE 5MG TABLET PO SCH (09:56)
[2023-02-09] MEDS: PREGABALIN 100 MG CAP (LYRICA) PO SCH (09:56)
[2023-02-09 11:23] VITALS: BP 162/68
== END 2023-02-09 14:55 | disposition home or self-care (01) | DRG 699 ==
LOC: M ED 17:31 → EEVIPCON 22:54 → M ED INP 22:54 → ENRESERV 02-02 00:02 → M PCU 02-02 00:31 → M MS5PR 02-05 05:57
PROVIDERS: ADMIT Family Medicine; ATTEND Internal Medicine
PROC: 30233N1 Transfusion of Nonautologous Red Blood Cells into Peripheral Vein, Percutaneous Approach (ICD-10-PCS; principal; 2023-02-03)
PROC: 02HV33Z Insertion of Infusion Device into Superior Vena Cava, Percutaneous Approach (ICD-10-PCS; 2023-02-04)
DX: T83.518A Infection and inflammatory reaction due to other urinary catheter, initial encounter (principal); I13.0 Hypertensive heart and chronic kidney disease with heart failure and stage 1 through stage 4 chronic kidney disease, or unspecified chronic kidney disease; I50.32 Chronic diastolic (congestive) heart failure; N17.9 Acute kidney failure, unspecified; K92.1 Melena; N39.0 Urinary tract infection, site not specified; A08.4 Viral intestinal infection, unspecified; E11.22 Type 2 diabetes mellitus with diabetic chronic kidney disease; E03.9 Hypothyroidism, unspecified; J45.909 Unspecified asthma, uncomplicated; D64.9 Anemia, unspecified; K21.9 Gastro-esophageal reflux disease without esophagitis; Z93.6 Other artificial openings of urinary tract status; E78.5 Hyperlipidemia, unspecified; I25.10 Atherosclerotic heart disease of native coronary artery without angina pectoris; I48.91 Unspecified atrial fibrillation; G47.33 Obstructive sleep apnea (adult) (pediatric); M79.7 Fibromyalgia; Z95.0 Presence of cardiac pacemaker; G89.29 Other chronic pain; N18.32 Chronic kidney disease, stage 3b; N31.9 Neuromuscular dysfunction of bladder, unspecified; E55.9 Vitamin D deficiency, unspecified; R31.9 Hematuria, unspecified; G25.81 Restless legs syndrome; Y84.6 Urinary catheterization as the cause of abnormal reaction of the patient, or of later complication, without mention of misadventure at the time of the procedure; Z79.899 Other long term (current) drug therapy; Z79.82 Long term (current) use of aspirin; Z88.7 Allergy status to serum and vaccine; Z93.3 Colostomy status

== ENCOUNTER → 2023-03-17 | Outpatient (REF) | payer MEDICARE, BC ==
[~2023-03-17] MED LIST changes: +ASPI-161 PO; +CALC1CAP31 PO; +DICY1CAP8 PO; +ECOT81TA5 PO; +FLON1SPR NARES; +METR-265 PO; +MIRA1POW3 PO; -ROPI0.5T3 PO; +ROPI0.5T33 PO; -ROPI1TAB3 PO; +ROPI1TAB73 PO
[2023-03-17 13:53] LABS: APPEARANCE, URINE CLOUDY (CLEAR); BACTERIA, URINE AUTO 2+ (NEGATIVE); BILIRUBIN, URINE AUTO NEGATIVE (NEGATIVE); BLOOD, URINE BLOOD 1+ (NEGATIVE); COLOR, URINE YELLOW (YELLOW); GLUCOSE, URINE (UA) AUTO NEGATIVE (NEGATIVE); KETONE, URINE AUTO NEGATIVE (NEGATIVE); LEUKOCYTE ESTERASE, URINE AUTO 3+ (NEGATIVE); MUCUS, URINE SMALL (NEGATIVE); NITRITE, URINE AUTO NEGATIVE (NEGATIVE); PROTEIN, URINE AUTO 2+ mg/dL (NEGATIVE); RBC, URINE AUTO 37 /HPF (0-3); SPECIFIC GRAVITY URINE AUTO 1.017 (1.002-1.035); SQUAMOUS EPITHELIAL CELL UR AU 1 /HPF (0-6); UROBILINOGEN, URINE AUTO 0.2 mg/dL (0.0-2.0); WBC, URINE AUTO TNTC /HPF (0-3)
== END ==
LOC: M LAB REF 13:38
PROVIDERS: ATTEND Internal Medicine
DX: Z01.818 Encounter for other preprocedural examination (principal)

== ENCOUNTER 2023-04-01 12:08 | Emergency (ER) | payer MEDICARE, BC ==
[~2023-04-01] VITALS: Ht 165.1 cm; Wt 74.5 kg
[2023-04-01 13:26] LABS: INR 1.1; PROTHROMBIN TIME 13.9 SECONDS (12.5-14.5)
[2023-04-01 13:38] LABS: CPK CREATINE PHOSPHOKINASE 27 U/L (34-145)
[2023-04-01 13:39] LABS: ALBUMIN 3.7 G/DL (3.2-5.2); ALKALINE PHOSPHATASE 109 U/L (46-116); ALT/SGPT 20 U/L (7.0-40); AST/SGOT 13 U/L (<34); BILIRUBIN,DIRECT 0.3 MG/DL (<0.4); BILIRUBIN,TOTAL 0.7 MG/DL (0.3-1.2); BLOOD UREA NITROGEN 39 MG/DL (9-23); CARBON DIOXIDE LEVEL 27 MMOL/L (20-31); CHLORIDE LEVEL 102 MMOL/L (98-107); CK-MB VALUE MASS < 1.0 NG/ML (<3.6); CREATININE FOR GFR 1.38 MG/DL (0.55-1.30); GLOMERULAR FILTRATION RATE 39.3 (>39); GLUCOSE, FASTING 118 MG/DL (74-106); MAGNESIUM LEVEL 1.8 MG/DL (1.8-2.4); PHOSPHORUS LEVEL 3.2 MG/DL (2.4-5.1); POTASSIUM SERUM 3.9 MMOL/L (3.5-5.1); SODIUM LEVEL 138 MMOL/L (136-145); TOTAL PROTEIN 7.9 G/DL (5.7-8.2)
[2023-04-01 13:40] LABS: THYROID STIMULATING HORMONE 1.531 uIU/ML (0.55-4.78)
[2023-04-01 13:41] LABS: FREE T4 1.11 NG/DL (0.89-1.76)
[2023-04-01 14:08] LABS: BASO % 0.2 % (0.0-1.0); EOS % 0.8 % (0.0-3.0); HEMATOCRIT 29.3 % (36.0-47.0); HEMOGLOBIN 9.8 g/dl (12.0-15.5); LYMPH # 1.5 10^3/uL (1.5-5.0); LYMPH % 29.2 % (24.0-44.0); MEAN CORPUSCULAR HEMOGLOBIN 32.3 pg (27.0-33.0); MEAN CORPUSCULAR HGB CONC 33.4 g/dl (32.0-36.5); MEAN CORPUSCULAR VOLUME 96.7 fl (80.0-96.0); MONO # 0.3 10^3/uL (0.0-0.8); MONO % 6.9 % (2.0-8.0); NEUTROPHILS # 3.1 10^3/uL (1.5-8.5); NEUTROPHILS % 62.3 % (36.0-66.0); PLATELET COUNT, AUTOMATED 205 10^3/uL (150-450); RED BLOOD COUNT 3.03 10^6/uL (4.00-5.40)
[2023-04-01 15:15] LABS: CK-MB VALUE MASS < 1.0 NG/ML (<3.6)
[2023-04-01 15:19] LABS: CPK CREATINE PHOSPHOKINASE 33 U/L (34-145); MB/CK RELATIVE INDEX 3.03 (< OR =4)
[2023-04-01 17:16] VITALS: BP 116/57; TEMP 97.6; O2SAT 99
== END 2023-04-01 17:19 | disposition home or self-care (01) ==
LOC: EDBD 12:08 → M ED 12:08
DX: R53.1 Weakness (principal); I49.3 Ventricular premature depolarization; I49.8 Other specified cardiac arrhythmias; E78.5 Hyperlipidemia, unspecified; E03.9 Hypothyroidism, unspecified; E11.9 Type 2 diabetes mellitus without complications; I10 Essential (primary) hypertension; J45.909 Unspecified asthma, uncomplicated; G47.33 Obstructive sleep apnea (adult) (pediatric); Z95.0 Presence of cardiac pacemaker; Z86.73 Personal history of transient ischemic attack (TIA), and cerebral infarction without residual deficits; Z88.8 Allergy status to other drugs, medicaments and biological substances; Z88.7 Allergy status to serum and vaccine; Z91.048 Other nonmedicinal substance allergy status; Z79.811 Long term (current) use of aromatase inhibitors; Z79.83 Long term (current) use of bisphosphonates; Z79.4 Long term (current) use of insulin; Z79.899 Other long term (current) drug therapy

== ENCOUNTER → 2023-04-08 | Outpatient (REF) | payer MEDICARE, BC ==
[~2023-04-08] MED LIST changes: +ALBU8.5H INH; +KETO2CR EXT
== END ==
LOC: M LAB REF 11:08
PROVIDERS: ATTEND Nurse Practitioner Adult Health
DX: N18.31 Chronic kidney disease, stage 3a (principal)

== ENCOUNTER 2023-04-13 17:18 | Inpatient (IN) | payer MEDICARE, BC ==
[~2023-04-13] VITALS: Ht 165.1 cm; Wt 76.4 kg
[2023-04-13] MEDS: PREGABALIN 100 MG CAP (LYRICA) PO SCH (06:00)
[2023-04-13] MEDS: oxyCODONE 20MG CR TAB PO SCH (09:00)
[~2023-04-13 17:18] MED LIST changes: -ALBU8.5H INH; -KETO2CR EXT
[2023-04-13] MEDS ORDERED: ACETAMINOPHEN 325 MG TAB PO ONE (17:35)
[2023-04-13 18:54] LABS: HEMATOCRIT 22.3 % (36.0-47.0); HEMOGLOBIN 7.2 g/dl (12.0-15.5); LYMPH # 0.5 10^3/uL (1.5-5.0); LYMPH % 23.4 % (24.0-44.0); MEAN CORPUSCULAR HEMOGLOBIN 32.1 pg (27.0-33.0); MEAN CORPUSCULAR HGB CONC 32.3 g/dl (32.0-36.5); MEAN CORPUSCULAR VOLUME 99.6 fl (80.0-96.0); MONO # 0.2 10^3/uL (0.0-0.8); MONO % 10.3 % (2.0-8.0); NEUTROPHILS # 1.4 10^3/uL (1.5-8.5); NEUTROPHILS % 65.4 % (36.0-66.0); PLATELET COUNT, AUTOMATED 151 10^3/uL (150-450); RED BLOOD COUNT 2.24 10^6/uL (4.00-5.40); WHITE BLOOD COUNT 2.1 10^3/uL (4.0-10.0)
[2023-04-13] MEDS ORDERED: oxyCODONE 5MG TAB PO ONE (19:00)
[2023-04-13 19:18] LABS: ALBUMIN 3.1 G/DL (3.2-5.2); ALKALINE PHOSPHATASE 71 U/L (46-116); ALT/SGPT < 9 U/L (7.0-40); AST/SGOT 14 U/L (<34); BILIRUBIN,DIRECT 0.2 MG/DL (<0.4); BILIRUBIN,TOTAL 0.3 MG/DL (0.3-1.2); BLOOD UREA NITROGEN 34 MG/DL (9-23); CALCIUM LEVEL 7.6 MG/DL (8.3-10.6); CARBON DIOXIDE LEVEL 24 MMOL/L (20-31); CHLORIDE LEVEL 106 MMOL/L (98-107); CREATININE FOR GFR 2.23 MG/DL (0.55-1.30); GLOMERULAR FILTRATION RATE 22.6 (>39); GLUCOSE, FASTING 109 MG/DL (74-106); POTASSIUM SERUM 4.4 MMOL/L (3.5-5.1); SODIUM LEVEL 139 MMOL/L (136-145); TOTAL PROTEIN 6.5 G/DL (5.7-8.2)
[2023-04-13 19:21] LABS: THYROID STIMULATING HORMONE 0.402 uIU/ML (0.55-4.78); THYROXINE (T4) 8.7 UG/DL (4.5-10.9)
[2023-04-13 20:01] LABS: RSV AMPLIFICATION NEGATIVE (NEGATIVE)
[2023-04-13] MEDS ORDERED: ALBUTEROL 90 MCG/ACT 8GM HFA INHALER INH PRN (21:40)
[2023-04-13 21:58] LABS: IRON (FE) 13 UG/DL (50-170); PERCENT SATURATION 7.1 % (13.2-45.0); TOTAL IRON BINDING CAPACITY 183 UG/DL (250-425)
[2023-04-13 22:00] LABS: FERRITIN 1041.3 NG/ML (7.3-270.7); FOLATE > 24.00 NG/ML (>5.4)
[2023-04-13 22:01] LABS: VITAMIN B12 LEVEL 298 PG/ML (211-911)
[2023-04-13 23:00] VITALS: BP 123/53; TEMP 100.5; O2SAT 92
[2023-04-13] MEDS ORDERED: IBUPROFEN 600MG TAB PO PRN (23:45)
[2023-04-13] MEDS ORDERED: ONDANSETRON 4MG 2ML VIAL IV PRN (23:45)
[2023-04-14] VITALS (9 sets, daily range): BP systolic 114–138; BP diastolic 48–60; TEMP 98.6–101.3; O2SAT 18–95
[2023-04-14 00:10] LABS: PROCALCITONIN 0.42 ng/ml
[2023-04-14] MEDS ORDERED: HOME MED LIST COMPLETE! XX SCH (00:40)
[2023-04-14] MEDS ORDERED: KETO2CR EXT (00:40)
[2023-04-14] MEDS ORDERED: PANT20TA6 PO (00:40)
[2023-04-14] MEDS ORDERED: ALBU8.5H INH (00:40)
[2023-04-14] MEDS: D5W/0.9% SODIUM CHLORIDE 1,000 ML IV SCH ×3 (00:49→16:56)
[2023-04-14] MEDS: oxyCODONE 5MG TAB PO PRN ×2 (00:50→15:14)
[2023-04-14] MEDS: LIDOCAINE 5% (LIDODERM) PATCH TD SCH ×2 (01:03→21:49)
[2023-04-14] MEDS: PREGABALIN 100 MG CAP (LYRICA) PO SCH ×5 (01:03→21:38)
[2023-04-14] MEDS: rOPINIRole 1MG TAB PO SCH ×3 (01:03→21:38)
[2023-04-14] MEDS: ACETAMINOPHEN TAB 650MG DOSE (2X325MG) PO PRN (01:38)
[2023-04-14] MEDS: oxyCODONE 20MG CR TAB PO SCH ×3 (01:40→21:38)
[2023-04-14] MEDS ORDERED: MIRALAX *UNIT DOSE* 17GM PACKET PO PRN (02:15)
[2023-04-14] MEDS ORDERED: REMDESIVIR 200 MG in NS 250 ML IV ONE (04:00)
[2023-04-14] MEDS: LEVOTHYROXINE 50MCG TABLET (0.05MG) PO SCH (05:32)
[2023-04-14 06:03] LABS: HEMATOCRIT 24.5 % (36.0-47.0); HEMOGLOBIN 7.9 g/dl (12.0-15.5); LYMPH # 0.5 10^3/uL (1.5-5.0); MEAN CORPUSCULAR HEMOGLOBIN 31.5 pg (27.0-33.0); MEAN CORPUSCULAR HGB CONC 32.2 g/dl (32.0-36.5); MEAN CORPUSCULAR VOLUME 97.6 fl (80.0-96.0); MONO # 0.2 10^3/uL (0.0-0.8); NEUTROPHILS # 1.3 10^3/uL (1.5-8.5); PLATELET COUNT, AUTOMATED 122 10^3/uL (150-450); RED BLOOD COUNT 2.51 10^6/uL (4.00-5.40)
[2023-04-14 06:26] LABS: CALCIUM LEVEL 7.4 MG/DL (8.3-10.6); CREATININE FOR GFR 2.18 MG/DL (0.55-1.30); GLOMERULAR FILTRATION RATE 23.2 (>39); POTASSIUM SERUM 4.4 MMOL/L (3.5-5.1)
[2023-04-14 06:29] LABS: ALBUMIN 2.8 G/DL (3.2-5.2); ALKALINE PHOSPHATASE 64 U/L (46-116); ALT/SGPT < 9 U/L (7.0-40); AST/SGOT 14 U/L (<34); BILIRUBIN,DIRECT 0.2 MG/DL (<0.4); BILIRUBIN,TOTAL 0.3 MG/DL (0.3-1.2); MAGNESIUM LEVEL 1.2 MG/DL (1.8-2.4); TOTAL PROTEIN 6.1 G/DL (5.7-8.2)
[2023-04-14] MEDS ORDERED: PIPERACILLIN/TAZOBACTAM SOD 4.5 GM in D5W MINI-BAG PLUS 50 ML IV SCH (08:00)
[2023-04-14] MEDS ORDERED: PANTOPRAZOLE 20 MG TAB PO SCH (09:00)
[2023-04-14] MEDS: PANTOPRAZOLE 40MG VIAL IV SCH ×2 (10:08→21:38)
[2023-04-14] MEDS: MAG SULF 1GM/100ML (MAG RUN) 1 GM in IV 1 EA IV SCH ×2 (10:08→12:38)
[2023-04-14] MEDS: CYCLOBENZAPRINE 5MG TABLET PO SCH ×3 (10:08→21:39)
[2023-04-14] MEDS: PRAVASTATIN 20 MG TAB PO SCH (10:09)
[2023-04-14] MEDS: CLOTRIMAZOLE 1% TOPICAL CREAM 30GM TOP SCH ×2 (10:18→21:42)
[2023-04-14] MEDS: PIPERACILLIN/TAZOBACTAM SOD 3.375 GM in D5W MINI-BAG PLUS 50 ML IV SCH ×3 (11:20→21:36)
[2023-04-14] MEDS: CALCITRIOL 0.25 MCG CAP (S0169) PO SCH (12:38)
[2023-04-14] MEDS: ASPIRIN 81MG ENTERIC TABLET PO SCH (21:38)
[2023-04-14] MEDS: AMITRIPTYLINE 10MG TABLET PO SCH (21:38)
[2023-04-14] MEDS: traZODone 100 MG TAB PO SCH (21:38)
[2023-04-14] MEDS: METOPROLOL SUCC (TopROL XL) 50MG **XL** TAB PO SCH (21:41)
[2023-04-15] MEDS: PIPERACILLIN/TAZOBACTAM SOD 3.375 GM in D5W MINI-BAG PLUS 50 ML IV SCH ×4 (03:00→21:17)
[2023-04-15] MEDS: D5W/0.9% SODIUM CHLORIDE 1,000 ML IV SCH (03:35)
[2023-04-15 04:50] VITALS: BP 116/54; TEMP 97.1; O2SAT 94
[2023-04-15] MEDS: LEVOTHYROXINE 50MCG TABLET (0.05MG) PO SCH (05:00)
[2023-04-15] MEDS: oxyCODONE 5MG TAB PO PRN (05:00)
[2023-04-15] MEDS: PREGABALIN 100 MG CAP (LYRICA) PO SCH ×3 (05:01→21:23)
[2023-04-15] MEDS: REMDESIVIR 100 MG in NS 250 ML IV SCH (05:01)
[2023-04-15 06:08] LABS: HEMATOCRIT 25.1 % (36.0-47.0); HEMOGLOBIN 7.9 g/dl (12.0-15.5); LYMPH # 0.8 10^3/uL (1.5-5.0); LYMPH % 42.7 % (24.0-44.0); MEAN CORPUSCULAR HEMOGLOBIN 31.1 pg (27.0-33.0); MEAN CORPUSCULAR HGB CONC 31.5 g/dl (32.0-36.5); MEAN CORPUSCULAR VOLUME 98.8 fl (80.0-96.0); MONO # 0.2 10^3/uL (0.0-0.8); MONO % 7.8 % (2.0-8.0); NEUTROPHILS % 48.5 % (36.0-66.0); PLATELET COUNT, AUTOMATED 120 10^3/uL (150-450); RED BLOOD COUNT 2.54 10^6/uL (4.00-5.40); WHITE BLOOD COUNT 1.9 10^3/uL (4.0-10.0)
[2023-04-15 06:19] LABS: NEUTROPHILS # 0.9 10^3/uL (1.5-8.5)
[2023-04-15 06:38] LABS: CALCIUM LEVEL 7.2 MG/DL (8.3-10.6); CREATININE FOR GFR 1.33 MG/DL (0.55-1.30); POTASSIUM SERUM 4.4 MMOL/L (3.5-5.1)
[2023-04-15] MEDS ORDERED: LR 1,000 ML IV SCH (07:20)
[2023-04-15] MEDS ORDERED: ISOVUE-370 76% 100ML VIAL As Ordered ONE (07:31)
[2023-04-15 07:34] LABS: MAGNESIUM LEVEL 1.8 MG/DL (1.8-2.4)
[2023-04-15] MEDS ORDERED: LACTATED RINGER'S 1000 ML IV ONE (08:00)
[2023-04-15] MEDS: PRAVASTATIN 20 MG TAB PO SCH (08:52)
[2023-04-15] MEDS: CYCLOBENZAPRINE 5MG TABLET PO SCH ×3 (08:52→21:23)
[2023-04-15] MEDS: guaiFENesin ER 600 MG TAB PO SCH ×2 (08:52→21:23)
[2023-04-15] MEDS: CALCITRIOL 0.25 MCG CAP (S0169) PO SCH (08:52)
[2023-04-15] MEDS: oxyCODONE 20MG CR TAB PO SCH ×2 (08:53→21:22)
[2023-04-15] MEDS: PANTOPRAZOLE 40MG VIAL IV SCH ×2 (08:53→21:16)
[2023-04-15] MEDS: CLOTRIMAZOLE 1% TOPICAL CREAM 30GM TOP SCH ×2 (08:56→21:24)
[2023-04-15] MEDS ORDERED: DIAPER RELIEF PASTE (DESITIN) 60GM TOP PRN (11:35)
[2023-04-15 14:00] VITALS: BP 114/54; TEMP 98.5; O2SAT 93
[2023-04-15] MEDS: rOPINIRole 1MG TAB PO SCH ×2 (15:38→21:23)
[2023-04-15 21:15] VITALS: BP 123/57; TEMP 98.1; O2SAT 95
[2023-04-15] MEDS: ASPIRIN 81MG ENTERIC TABLET PO SCH (21:22)
[2023-04-15] MEDS: LIDOCAINE 5% (LIDODERM) PATCH TD SCH (21:22)
[2023-04-15] MEDS: traZODone 100 MG TAB PO SCH (21:22)
[2023-04-15] MEDS: METOPROLOL SUCC (TopROL XL) 50MG **XL** TAB PO SCH (21:23)
[2023-04-15] MEDS: AMITRIPTYLINE 10MG TABLET PO SCH (21:23)
[2023-04-15 22:00] VITALS: BP 123/57; TEMP 98.1; O2SAT 97
[2023-04-16] MEDS: PIPERACILLIN/TAZOBACTAM SOD 3.375 GM in D5W MINI-BAG PLUS 50 ML IV SCH ×4 (02:23→20:34)
[2023-04-16 05:29] VITALS: BP 110/61; TEMP 97.9; O2SAT 94
[2023-04-16] MEDS: LEVOTHYROXINE 50MCG TABLET (0.05MG) PO SCH (05:34)
[2023-04-16] MEDS: REMDESIVIR 100 MG in NS 250 ML IV SCH (05:34)
[2023-04-16] MEDS: oxyCODONE 5MG TAB PO PRN ×2 (05:34→22:05)
[2023-04-16] MEDS: PREGABALIN 100 MG CAP (LYRICA) PO SCH ×3 (05:34→20:38)
[2023-04-16 06:06] LABS: HEMATOCRIT 27.9 % (36.0-47.0); HEMOGLOBIN 8.9 g/dl (12.0-15.5); LYMPH # 0.7 10^3/uL (1.5-5.0); LYMPH % 36.2 % (24.0-44.0); MEAN CORPUSCULAR HEMOGLOBIN 31.4 pg (27.0-33.0); MEAN CORPUSCULAR HGB CONC 31.9 g/dl (32.0-36.5); MEAN CORPUSCULAR VOLUME 98.6 fl (80.0-96.0); MONO # 0.1 10^3/uL (0.0-0.8); MONO % 7.1 % (2.0-8.0); NEUTROPHILS # 1.1 10^3/uL (1.5-8.5); NEUTROPHILS % 55.2 % (36.0-66.0); PLATELET COUNT, AUTOMATED 128 10^3/uL (150-450); RED BLOOD COUNT 2.83 10^6/uL (4.00-5.40)
[2023-04-16 06:20] LABS: CALCIUM LEVEL 8.1 MG/DL (8.3-10.6); CREATININE FOR GFR 1.1 MG/DL (0.55-1.30)
[2023-04-16 08:00] VITALS: BP 117/63; TEMP 97.3; O2SAT 94
[2023-04-16] MEDS: CALCITRIOL 0.25 MCG CAP (S0169) PO SCH (09:25)
[2023-04-16] MEDS: oxyCODONE 20MG CR TAB PO SCH ×2 (09:29→20:38)
[2023-04-16] MEDS: CYCLOBENZAPRINE 5MG TABLET PO SCH ×3 (09:29→20:38)
[2023-04-16] MEDS: PRAVASTATIN 20 MG TAB PO SCH (09:29)
[2023-04-16] MEDS: PANTOPRAZOLE 40MG VIAL IV SCH ×2 (09:30→20:34)
[2023-04-16] MEDS: guaiFENesin ER 600 MG TAB PO SCH ×2 (09:30→20:39)
[2023-04-16] MEDS: CLOTRIMAZOLE 1% TOPICAL CREAM 30GM TOP SCH ×2 (09:31→20:42)
[2023-04-16] MEDS: ALBUTEROL 90 MCG/ACT 8GM HFA INHALER INH SCH ×3 (11:26→23:30)
[2023-04-16 14:00] VITALS: BP 118/61; TEMP 98.1; O2SAT 93
[2023-04-16] MEDS: rOPINIRole 1MG TAB PO SCH ×2 (15:51→20:38)
[2023-04-16] MEDS: HEPARIN SOD (PORCINE) 5000UNITS/ML 1ML VIAL/SYRINGE SQ SCH ×2 (15:52→20:39)
[2023-04-16] MEDS: LIDOCAINE 5% (LIDODERM) PATCH TD SCH (20:34)
[2023-04-16] MEDS: AMITRIPTYLINE 10MG TABLET PO SCH (20:37)
[2023-04-16 20:38] VITALS: BP 117/50
[2023-04-16] MEDS: METOPROLOL SUCC (TopROL XL) 50MG **XL** TAB PO SCH (20:38)
[2023-04-16] MEDS: traZODone 100 MG TAB PO SCH (20:39)
[2023-04-16] MEDS: ASPIRIN 81MG ENTERIC TABLET PO SCH (20:39)
[2023-04-16 21:54] VITALS: O2SAT 90
[2023-04-16 22:00] VITALS: BP 117/50; TEMP 97.5; O2SAT 94
[2023-04-17] MEDS: PIPERACILLIN/TAZOBACTAM SOD 3.375 GM in D5W MINI-BAG PLUS 50 ML IV SCH (03:37)
[2023-04-17] MEDS: LEVOTHYROXINE 50MCG TABLET (0.05MG) PO SCH (05:22)
[2023-04-17] MEDS: oxyCODONE 5MG TAB PO PRN (05:22)
[2023-04-17] MEDS: PREGABALIN 100 MG CAP (LYRICA) PO SCH (05:22)
[2023-04-17] MEDS: HEPARIN SOD (PORCINE) 5000UNITS/ML 1ML VIAL/SYRINGE SQ SCH (05:22)
[2023-04-17 06:05] LABS: HEMOGLOBIN 9.1 g/dl (12.0-15.5); MEAN CORPUSCULAR HEMOGLOBIN 31.7 pg (27.0-33.0); MEAN CORPUSCULAR HGB CONC 32.5 g/dl (32.0-36.5); MEAN CORPUSCULAR VOLUME 97.6 fl (80.0-96.0); PLATELET COUNT, AUTOMATED 124 10^3/uL (150-450); RED BLOOD COUNT 2.87 10^6/uL (4.00-5.40); WHITE BLOOD COUNT 2.1 10^3/uL (4.0-10.0)
[2023-04-17 06:12] VITALS: BP 117/57; TEMP 97.7; O2SAT 93
[2023-04-17 06:33] LABS: CALCIUM LEVEL 8.3 MG/DL (8.3-10.6); CREATININE FOR GFR 1.09 MG/DL (0.55-1.30); GLOMERULAR FILTRATION RATE 51.5 (>39); POTASSIUM SERUM 4.7 MMOL/L (3.5-5.1)
[2023-04-17 07:02] LABS: ATYPICAL LYMPH 2 % (0-5); LYMPHOCYTES 42 % (16-44); MONOCYTES 7 % (0-5); NEUTROPHILS 49 % (28-66)
[2023-04-17 07:04] LABS: ANISOCYTOSIS 2+; TEAR DROP CELLS 1+
[2023-04-17 07:05] LABS: PLATELET ESTIMATE DECREASED (NORMAL)
[2023-04-17] MEDS: ALBUTEROL 90 MCG/ACT 8GM HFA INHALER INH SCH (07:40)
[2023-04-17 07:42] VITALS: O2SAT 94
[2023-04-17] MEDS ORDERED: CEFDINIR 300 MG CAP (OMNICEF) PO SCH (09:00)
[2023-04-17] MEDS: PANTOPRAZOLE 40MG VIAL IV SCH (09:34)
[2023-04-17] MEDS ORDERED: DEXA2TA PO (09:35)
[2023-04-17] MEDS: CALCITRIOL 0.25 MCG CAP (S0169) PO SCH (09:35)
[2023-04-17] MEDS ORDERED: CEFD300CAP PO (09:35)
[2023-04-17] MEDS: guaiFENesin ER 600 MG TAB PO SCH (09:35)
[2023-04-17] MEDS: PRAVASTATIN 20 MG TAB PO SCH (09:35)
[2023-04-17] MEDS: CLOTRIMAZOLE 1% TOPICAL CREAM 30GM TOP SCH (09:36)
[2023-04-17] MEDS: oxyCODONE 20MG CR TAB PO SCH (09:36)
[2023-04-17] MEDS: ACETAMINOPHEN TAB 650MG DOSE (2X325MG) PO PRN (09:40)
[2023-04-17] MEDS ORDERED: LINEZOLID 600MG TABLET (ZYVOX) PO SCH (21:00)
[2023-04-18] MEDS ORDERED: dexAMETHasone 2 MG TAB PO SCH (09:00)
[2023-04-19] MEDS ORDERED: dexAMETHasone 2 MG TAB PO SCH (09:00)
[2023-04-21] MEDS ORDERED: dexAMETHasone 2 MG TAB PO SCH (09:00)
== END 2023-04-17 12:46 | disposition home or self-care (01) | DRG 698 ==
LOC: EDBD 17:18 → M ED 17:18 → M ED INP 21:33 → M MSPAV 23:30
PROVIDERS: ADMIT Internal Medicine Nephrology; ATTEND Student in an Organized Health Care Education/Training Program
DX: T83.512A Infection and inflammatory reaction due to nephrostomy catheter, initial encounter (principal); U07.1 COVID-19; A41.89 Other specified sepsis; J12.82 Pneumonia due to coronavirus disease 2019; N17.9 Acute kidney failure, unspecified; F11.20 Opioid dependence, uncomplicated; D61.818 Other pancytopenia; I13.0 Hypertensive heart and chronic kidney disease with heart failure and stage 1 through stage 4 chronic kidney disease, or unspecified chronic kidney disease; I50.32 Chronic diastolic (congestive) heart failure; N10 Acute pyelonephritis; N18.30 Chronic kidney disease, stage 3 unspecified; J45.909 Unspecified asthma, uncomplicated; K74.60 Unspecified cirrhosis of liver; E03.9 Hypothyroidism, unspecified; E11.22 Type 2 diabetes mellitus with diabetic chronic kidney disease; D63.8 Anemia in other chronic diseases classified elsewhere; E78.5 Hyperlipidemia, unspecified; Z93.6 Other artificial openings of urinary tract status; I48.91 Unspecified atrial fibrillation; I25.10 Atherosclerotic heart disease of native coronary artery without angina pectoris; K21.9 Gastro-esophageal reflux disease without esophagitis; Z93.3 Colostomy status; M54.9 Dorsalgia, unspecified; N13.9 Obstructive and reflux uropathy, unspecified; K57.90 Diverticulosis of intestine, part unspecified, without perforation or abscess without bleeding; R09.02 Hypoxemia; Z95.0 Presence of cardiac pacemaker; B37.2 Candidiasis of skin and nail; M79.7 Fibromyalgia; R10.9 Unspecified abdominal pain; G89.29 Other chronic pain; G47.33 Obstructive sleep apnea (adult) (pediatric); D70.9 Neutropenia, unspecified; G25.81 Restless legs syndrome; R13.10 Dysphagia, unspecified; E55.9 Vitamin D deficiency, unspecified; Z88.8 Allergy status to other drugs, medicaments and biological substances; Z88.7 Allergy status to serum and vaccine; Z79.82 Long term (current) use of aspirin; Z79.899 Other long term (current) drug therapy; Y84.6 Urinary catheterization as the cause of abnormal reaction of the patient, or of later complication, without mention of misadventure at the time of the procedure

== ENCOUNTER 2023-04-29 19:39 | Inpatient (IN) | payer MEDICARE, BC ==
[~2023-04-29] VITALS: Ht 162.6 cm; Wt 64.6 kg
[~2023-04-29 19:39] MED LIST changes: +ALBU8.5H INH; +DEXA2TA PO; +KETO2CR EXT
[2023-04-29] MEDS ORDERED: ONDANSETRON 4MG 2ML VIAL IV ONE (21:35)
[2023-04-29] MEDS ORDERED: NS 1,000 ML IV ONE (21:35)
[2023-04-29] MEDS: MORPHINE 4 MG/ML 1ML VIAL IV PRN (21:43)
[2023-04-29 21:58] LABS: BASO % 0.6 % (0.0-1.0); HEMATOCRIT 25.9 % (36.0-47.0); HEMOGLOBIN 8.3 g/dl (12.0-15.5); LYMPH % 29.8 % (24.0-44.0); MEAN CORPUSCULAR HEMOGLOBIN 31.9 pg (27.0-33.0); MEAN CORPUSCULAR VOLUME 99.6 fl (80.0-96.0); MONO # 0.4 10^3/uL (0.0-0.8); MONO % 10.5 % (2.0-8.0); NEUTROPHILS % 58.5 % (36.0-66.0); PLATELET COUNT, AUTOMATED 223 10^3/uL (150-450); WHITE BLOOD COUNT 3.4 10^3/uL (4.0-10.0)
[2023-04-29 22:26] LABS: ALBUMIN 3.4 G/DL (3.2-5.2); BILIRUBIN,DIRECT 0.5 MG/DL (<0.4); BILIRUBIN,TOTAL 0.9 MG/DL (0.3-1.2); CALCIUM LEVEL 9.6 MG/DL (8.3-10.6); CREATININE FOR GFR 1.36 MG/DL (0.55-1.30); GLOMERULAR FILTRATION RATE 39.9 (>39); TOTAL PROTEIN 7.1 G/DL (5.7-8.2)
[2023-04-29 22:38] LABS: PROCALCITONIN 0.18 ng/ml
[2023-04-29 22:50] LABS: RSV AMPLIFICATION NEGATIVE (NEGATIVE)
[2023-04-29] MEDS ORDERED: PIPERACILLIN/TAZOBACTAM SOD 3.375 GM in D5W MINI-BAG PLUS 50 ML IV ONE (23:10)
[2023-04-29] MEDS ORDERED: med rec comment (23:49)
[2023-04-29] MEDS ORDERED: HOME MED LIST COMPLETE! XX SCH (23:50)
[2023-04-30] VITALS (17 sets, daily range): BP systolic 120–138; BP diastolic 5–68; TEMP 97.2–98.6; O2SAT 91–96
[2023-04-30] MEDS: MORPHINE 4 MG/ML 1ML VIAL IV PRN (00:35)
[2023-04-30] MEDS ORDERED: MORPHINE 2 MG/ML 1ML VIAL IV PRN ×3 (00:55→04:05)
[2023-04-30] MEDS ORDERED: ALBUTEROL 90 MCG/ACT 8GM HFA INHALER INH PRN (00:55)
[2023-04-30] MEDS ORDERED: NS 1,000 ML IV SCH ×2 (01:05→09:50)
[2023-04-30] MEDS ORDERED: hydrALAZINE 20MG/ML 1ML VIAL IV ONE (02:00)
[2023-04-30] MEDS: ONDANSETRON 4MG 2ML VIAL IV PRN (02:55)
[2023-04-30] MEDS ORDERED: PROMETHAZINE 25MG/ML 1ML VIAL IV PRN (04:05)
[2023-04-30] MEDS ORDERED: MORPHINE 4 MG/ML 1ML VIAL IV PRN (04:10)
[2023-04-30] MEDS ORDERED: HYDROmorphone HCL 2MG/ML 1ML VIAL IV PRN (06:15)
[2023-04-30 06:39] LABS: BASO % 0.2 % (0.0-1.0); EOS % 0.2 % (0.0-3.0); HEMATOCRIT 22.5 % (36.0-47.0); HEMOGLOBIN 7.5 g/dl (12.0-15.5); LYMPH # 2.1 10^3/uL (1.5-5.0); MEAN CORPUSCULAR HEMOGLOBIN 32.3 pg (27.0-33.0); MEAN CORPUSCULAR HGB CONC 33.3 g/dl (32.0-36.5); MONO # 0.5 10^3/uL (0.0-0.8); NEUTROPHILS # 1.7 10^3/uL (1.5-8.5); NEUTROPHILS % 38.9 % (36.0-66.0); PLATELET COUNT, AUTOMATED 213 10^3/uL (150-450); RED BLOOD COUNT 2.32 10^6/uL (4.00-5.40); WHITE BLOOD COUNT 4.3 10^3/uL (4.0-10.0)
[2023-04-30 07:15] LABS: CALCIUM LEVEL 8.6 MG/DL (8.3-10.6); CREATININE FOR GFR 1.25 MG/DL (0.55-1.30); MAGNESIUM LEVEL 1.6 MG/DL (1.8-2.4); POTASSIUM SERUM 4.3 MMOL/L (3.5-5.1)
[2023-04-30] MEDS: HYDROmorphone HCL 2MG/ML 1ML VIAL IV PRN ×3 (07:30→18:48)
[2023-04-30] MEDS: ENOXAPARIN 40MG/0.4ML SYRINGE (J1650 PER 10MG) SC SCH (08:51)
[2023-04-30] MEDS ORDERED: MAG SULF 1GM/100ML (MAG RUN) 1 GM in IV 1 EA IV SCH (10:00)
[2023-04-30] MEDS: PANTOPRAZOLE 40MG VIAL IV SCH ×2 (11:34→20:36)
[2023-04-30] MEDS: LEVOTHYROXINE 100MCG (0.1MG) 5ML SDV PF (SOLUTION FORM) IV SCH (11:35)
[2023-04-30] MEDS: MAG SULF 1GM/100ML (MAG RUN) 1 GM in IV 1 EA IV SCH ×3 (11:36→13:51)
[2023-04-30] MEDS ORDERED: NALOXONE INJ 0.4MG/1ML VIAL IV PRN (18:25)
[2023-04-30] MEDS: METOPROLOL SUCC *XL* 25MG TAB (TopROL *XL*) PO SCH (20:37)
[2023-04-30 23:26] LABS: HEMATOCRIT 28.9 % (36.0-47.0); HEMOGLOBIN 9.4 g/dl (12.0-15.5)
[2023-05-01 02:00] VITALS: BP 101/40; TEMP 97.5; O2SAT 91
[2023-05-01] MEDS: LEVOTHYROXINE 100MCG (0.1MG) 5ML SDV PF (SOLUTION FORM) IV SCH (05:52)
[2023-05-01] MEDS: HYDROmorphone HCL 2MG/ML 1ML VIAL IV PRN ×4 (05:53→21:57)
[2023-05-01 06:00] VITALS: BP 117/72; TEMP 97.7; O2SAT 98
[2023-05-01 07:20] LABS: BASO % 0.7 % (0.0-1.0); EOS % 0.7 % (0.0-3.0); HEMATOCRIT 29.9 % (36.0-47.0); HEMOGLOBIN 9.8 g/dl (12.0-15.5); LYMPH # 0.8 10^3/uL (1.5-5.0); LYMPH % 27.1 % (24.0-44.0); MEAN CORPUSCULAR HEMOGLOBIN 30.9 pg (27.0-33.0); MEAN CORPUSCULAR HGB CONC 32.8 g/dl (32.0-36.5); MEAN CORPUSCULAR VOLUME 94.3 fl (80.0-96.0); MONO # 0.4 10^3/uL (0.0-0.8); MONO % 12.7 % (2.0-8.0); NEUTROPHILS # 1.7 10^3/uL (1.5-8.5); NEUTROPHILS % 57.4 % (36.0-66.0); PLATELET COUNT, AUTOMATED 153 10^3/uL (150-450); RED BLOOD COUNT 3.17 10^6/uL (4.00-5.40); WHITE BLOOD COUNT 2.9 10^3/uL (4.0-10.0)
[2023-05-01 07:39] LABS: CALCIUM LEVEL 8.7 MG/DL (8.3-10.6); GLOMERULAR FILTRATION RATE 56.9 (>39); MAGNESIUM LEVEL 2.2 MG/DL (1.8-2.4); POTASSIUM SERUM 4.5 MMOL/L (3.5-5.1)
[2023-05-01] MEDS: PANTOPRAZOLE 40MG VIAL IV SCH ×2 (07:56→20:23)
[2023-05-01] MEDS: ENOXAPARIN 40MG/0.4ML SYRINGE (J1650 PER 10MG) SC SCH (07:56)
[2023-05-01] MEDS: ONDANSETRON 4MG 2ML VIAL IV PRN (07:56)
[2023-05-01 10:00] VITALS: BP 121/67; TEMP 97.9; O2SAT 91
[2023-05-01 14:00] VITALS: BP 110/68; TEMP 97.9; O2SAT 93
[2023-05-01 20:00] VITALS: BP 133/95; TEMP 98.1; O2SAT 96
[2023-05-01 20:24] VITALS: BP 133/95
[2023-05-01] MEDS: METOPROLOL SUCC *XL* 25MG TAB (TopROL *XL*) PO SCH (20:24)
[2023-05-01] MEDS ORDERED: AMITRIPTYLINE 10MG TABLET PO SCH (21:00)
[2023-05-01] MEDS ORDERED: traZODone 100 MG TAB PO SCH (21:00)
[2023-05-01] MEDS ORDERED: rOPINIRole 1MG TAB PO SCH (21:00)
[2023-05-01] MEDS: PREGABALIN 100 MG CAP (LYRICA) PO SCH (21:56)
[2023-05-02] MEDS: HYDROmorphone HCL 2MG/ML 1ML VIAL IV PRN ×2 (04:45→09:15)
[2023-05-02 06:00] VITALS: BP 131/61; TEMP 97; O2SAT 94
[2023-05-02] MEDS ORDERED: LEVOTHYROXINE 50MCG TABLET (0.05MG) PO SCH (06:00)
[2023-05-02 06:29] LABS: BASO % 0.4 % (0.0-1.0); EOS % 0.8 % (0.0-3.0); HEMATOCRIT 30.1 % (36.0-47.0); HEMOGLOBIN 9.7 g/dl (12.0-15.5); LYMPH % 40.7 % (24.0-44.0); MEAN CORPUSCULAR HGB CONC 32.2 g/dl (32.0-36.5); MEAN CORPUSCULAR VOLUME 96.2 fl (80.0-96.0); MONO # 0.3 10^3/uL (0.0-0.8); MONO % 11.5 % (2.0-8.0); NEUTROPHILS # 1.1 10^3/uL (1.5-8.5); NEUTROPHILS % 45.4 % (36.0-66.0); PLATELET COUNT, AUTOMATED 133 10^3/uL (150-450); RED BLOOD COUNT 3.13 10^6/uL (4.00-5.40); WHITE BLOOD COUNT 2.4 10^3/uL (4.0-10.0)
[2023-05-02 06:57] LABS: CALCIUM LEVEL 8.5 MG/DL (8.3-10.6); CREATININE FOR GFR 0.97 MG/DL (0.55-1.30); MAGNESIUM LEVEL 1.6 MG/DL (1.8-2.4); POTASSIUM SERUM 3.9 MMOL/L (3.5-5.1)
[2023-05-02] MEDS: PREGABALIN 100 MG CAP (LYRICA) PO SCH (09:06)
[2023-05-02] MEDS: ENOXAPARIN 40MG/0.4ML SYRINGE (J1650 PER 10MG) SC SCH (09:06)
[2023-05-02] MEDS: PANTOPRAZOLE 40MG VIAL IV SCH (09:07)
[2023-05-02] MEDS: MAG SULF 1GM/100ML (MAG RUN) 1 GM in IV 1 EA IV SCH ×3 (09:16→11:54)
[2023-05-02 10:00] VITALS: BP 105/82; TEMP 97.2; O2SAT 98
== END 2023-05-02 14:51 | disposition home or self-care (01) | DRG 388 ==
LOC: M ED 19:39 → M ED INP 23:33 → ENRESERV 04-30 01:58 → M MSPAV 04-30 03:42
PROVIDERS: ADMIT Family Medicine; ATTEND Internal Medicine
DX: K56.600 Partial intestinal obstruction, unspecified as to cause (principal); U07.1 COVID-19; I50.30 Unspecified diastolic (congestive) heart failure; I13.0 Hypertensive heart and chronic kidney disease with heart failure and stage 1 through stage 4 chronic kidney disease, or unspecified chronic kidney disease; D61.818 Other pancytopenia; N17.9 Acute kidney failure, unspecified; F11.20 Opioid dependence, uncomplicated; J45.909 Unspecified asthma, uncomplicated; N18.30 Chronic kidney disease, stage 3 unspecified; E11.22 Type 2 diabetes mellitus with diabetic chronic kidney disease; K74.60 Unspecified cirrhosis of liver; E03.9 Hypothyroidism, unspecified; G25.81 Restless legs syndrome; I48.91 Unspecified atrial fibrillation; I25.10 Atherosclerotic heart disease of native coronary artery without angina pectoris; E78.5 Hyperlipidemia, unspecified; K21.9 Gastro-esophageal reflux disease without esophagitis; G47.33 Obstructive sleep apnea (adult) (pediatric); M79.7 Fibromyalgia; Z88.8 Allergy status to other drugs, medicaments and biological substances; Z88.7 Allergy status to serum and vaccine; Z79.899 Other long term (current) drug therapy; Z79.82 Long term (current) use of aspirin; K57.30 Diverticulosis of large intestine without perforation or abscess without bleeding; Z95.0 Presence of cardiac pacemaker

== ENCOUNTER → 2023-05-25 | Outpatient (CLI) | payer MEDICARE, BC ==
[~2023-05-25] MED LIST changes: +med rec comment
== END ==
LOC: M WHC 11:59
PROVIDERS: ATTEND Physician Assistant
DX: M79.621 Pain in right upper arm (principal)

== ENCOUNTER 2023-07-11 12:58 | Day surgery (SDC) | payer MEDICARE, BC ==
[~2023-07-11] VITALS: Ht 162.6 cm; Wt 74.8 kg
[~2023-07-11 12:58] MED LIST changes: -CEFD300C41 PO; +CEFD300C42 PO; +NS 1,000 ML IV ONE
[2023-07-11] MEDS ORDERED: LIDOCAINE 2% 100MG/5ML SDV (FOR ANES.) As Ordered ONE (13:14)
[2023-07-11] MEDS ORDERED: propofoL 200 MG/20 ML VIAL As Ordered ONE (13:14)
[2023-07-11 14:09] VITALS: TEMP 97
[2023-07-11 14:30] VITALS: BP 117/56; O2SAT 94
== END 2023-07-11 14:38 | disposition home or self-care (01) ==
LOC: M OPP 12:58
PROVIDERS: ATTEND Internal Medicine Gastroenterology
DX: R13.10 Dysphagia, unspecified (principal); I48.91 Unspecified atrial fibrillation; I50.89 Other heart failure; E11.9 Type 2 diabetes mellitus without complications; E03.9 Hypothyroidism, unspecified; Z88.7 Allergy status to serum and vaccine; Z88.8 Allergy status to other drugs, medicaments and biological substances; Z79.51 Long term (current) use of inhaled steroids; Z79.82 Long term (current) use of aspirin; Z79.899 Other long term (current) drug therapy; Z99.89 Dependence on other enabling machines and devices; G47.30 Sleep apnea, unspecified; J45.909 Unspecified asthma, uncomplicated

== ENCOUNTER → 2023-07-29 | Outpatient (REF) | payer MEDICARE, BC ==
[~2023-07-29] MED LIST changes: +CEFD1CAP9 PO; -CEFD300C42 PO; -NS 1,000 ML IV ONE
[2023-07-29 18:10] LABS: PERCENT SATURATION 51.3 % (13.2-45.0)
[2023-07-29 18:11] LABS: FERRITIN 343.1 NG/ML (7.3-270.7)
== END ==
LOC: M LAB REF 16:42
PROVIDERS: ATTEND Internal Medicine
DX: D50.0 Iron deficiency anemia secondary to blood loss (chronic) (principal)

== ENCOUNTER → 2023-08-09 | Outpatient (REF) | payer MEDICARE, BC | LOC: M LAB REF 16:34 | PROVIDERS: ATTEND Nurse Practitioner Adult Health | DX: D50.0 Iron deficiency anemia secondary to blood loss (chronic) (principal) ==

== ENCOUNTER → 2023-08-25 | Outpatient (REF) | payer MEDICARE, BC ==
[2023-08-25 17:44] LABS: PERCENT SATURATION 39.1 % (13.2-45.0)
[2023-08-25 17:46] LABS: FERRITIN 290.3 NG/ML (7.3-270.7); FOLATE 12.2 NG/ML (>5.4)
== END ==
LOC: M LAB REF 16:25
PROVIDERS: ATTEND Internal Medicine
DX: D50.0 Iron deficiency anemia secondary to blood loss (chronic) (principal); D63.1 Anemia in chronic kidney disease

== ENCOUNTER → 2023-08-26 | Outpatient (CLI) | payer MEDICARE, BC ==
[~2023-08-26] VITALS: Ht 165.1 cm; Wt 70.5 kg
[2023-08-26 07:15] VITALS: BP 102/72; O2SAT 95
[2023-08-26 08:20] VITALS: BP 115/67; TEMP 97.8; O2SAT 99
[2023-08-26 09:20] VITALS: BP 133/60; TEMP 97.1; O2SAT 97
[2023-08-26 10:20] VITALS: BP 138/70; TEMP 97; O2SAT 96
[2023-08-26 10:40] VITALS: BP 148/70; O2SAT 96
== END ==
LOC: M INFU 07:13
PROVIDERS: ATTEND Internal Medicine
DX: D64.9 Anemia, unspecified (principal); Z88.8 Allergy status to other drugs, medicaments and biological substances; Z88.7 Allergy status to serum and vaccine; Z91.048 Other nonmedicinal substance allergy status
CPT/HCPCS: 36430; P9016

== ENCOUNTER → 2023-09-14 | Outpatient (CLI) | payer MEDICARE, BC | LOC: M SLEEP 20:00 | PROVIDERS: ATTEND Nurse Practitioner Family | DX: G47.33 Obstructive sleep apnea (adult) (pediatric) (principal) ==

== ENCOUNTER → 2023-09-23 | Outpatient (CLI) | payer MEDICARE, BC | LOC: M RAD 16:58 | PROVIDERS: ATTEND Physician Assistant | DX: M79.602 Pain in left arm (principal) ==

== ENCOUNTER → 2023-09-28 | Outpatient (CLI) | payer OTHER, MEDICARE | LOC: M RAD 15:15 | PROVIDERS: ATTEND Physician Assistant Medical | DX: M54.2 Cervicalgia (principal); M46.92 Unspecified inflammatory spondylopathy, cervical region; M25.78 Osteophyte, vertebrae ==

== ENCOUNTER → 2023-11-01 | Outpatient (REF) | payer MEDICARE ==
[~2023-11-01] MED LIST changes: -ASPI-161 PO; +ASPI-615 PO; -MIRA1POW3 PO; +MIRA33506 PO
[2023-11-01 17:24] LABS: FERRITIN 297.8 NG/ML (7.3-270.7)
[2023-11-01 17:29] LABS: PERCENT SATURATION 42.4 % (13.2-45.0)
== END ==
LOC: M LAB REF 15:23
PROVIDERS: ATTEND Internal Medicine
DX: D50.0 Iron deficiency anemia secondary to blood loss (chronic) (principal); D63.1 Anemia in chronic kidney disease

== ENCOUNTER → 2023-11-01 | Outpatient (CLI) | payer MEDICARE | LOC: M RAD 16:22 | PROVIDERS: ATTEND Internal Medicine | DX: D50.0 Iron deficiency anemia secondary to blood loss (chronic) (principal); D63.1 Anemia in chronic kidney disease; Z91.81 History of falling ==

== ENCOUNTER 2023-11-04 06:29 | Outpatient (CLI) | payer MEDICARE ==
[2023-11-04] VITALS (12 sets, daily range): BP systolic 95–154; BP diastolic 42–76; TEMP 97.2–98.5; O2SAT 90–98
[2023-11-04] MEDS ORDERED: NS 250 ML IV ONE (07:00)
== END 2023-11-04 15:00 | disposition home or self-care (01) ==
LOC: M INFU 06:29
PROVIDERS: ATTEND Internal Medicine
DX: D50.0 Iron deficiency anemia secondary to blood loss (chronic) (principal); Z88.7 Allergy status to serum and vaccine; Z88.8 Allergy status to other drugs, medicaments and biological substances; Z91.048 Other nonmedicinal substance allergy status
CPT/HCPCS: 36430; 86850; 86900; 86901; 86920; 96374; P9016

== ENCOUNTER 2023-11-14 09:28 | Day surgery (SDC) | payer MEDICARE ==
[~2023-11-14] VITALS: Ht 165.1 cm; Wt 71.2 kg
[~2023-11-14 09:28] MED LIST changes: +MAGN400T35 PO; +OXYC20TA40; +fentaNYL 100 MCG/2 ML INJECTION As Ordered ONE
[2023-11-14] MEDS: NS 1,000 ML IV ONE (10:05)
[2023-11-14 12:04] VITALS: TEMP 97.9
[2023-11-14 12:20] VITALS: BP 139/63; O2SAT 95
[2023-11-14] MEDS ORDERED: propofoL 200 MG/20 ML VIAL As Ordered ONE (15:02)
== END 2023-11-14 12:37 | disposition home or self-care (01) ==
LOC: M OPP 09:28
PROVIDERS: ATTEND Internal Medicine Gastroenterology
DX: K22.2 Esophageal obstruction (principal); R13.10 Dysphagia, unspecified; I48.91 Unspecified atrial fibrillation; I50.9 Heart failure, unspecified; E11.9 Type 2 diabetes mellitus without complications; G47.30 Sleep apnea, unspecified; Z99.89 Dependence on other enabling machines and devices; Z95.0 Presence of cardiac pacemaker; Z79.51 Long term (current) use of inhaled steroids; Z79.890 Hormone replacement therapy; Z79.891 Long term (current) use of opiate analgesic; Z79.899 Other long term (current) drug therapy; Z88.7 Allergy status to serum and vaccine; Z88.8 Allergy status to other drugs, medicaments and biological substances; Z91.048 Other nonmedicinal substance allergy status
CPT/HCPCS: 43249; J3010

== ENCOUNTER 2023-12-02 14:22 | Inpatient (IN) | payer MEDICARE ==
[~2023-12-02] VITALS: Ht 165.1 cm; Wt 69.8 kg
[~2023-12-02 14:22] MED LIST changes: -fentaNYL 100 MCG/2 ML INJECTION As Ordered ONE
[2023-12-02 16:31] LABS: BASO % 0.3 % (0.0-1.0); HEMATOCRIT 23.6 % (36.0-47.0); HEMOGLOBIN 7.7 g/dl (12.0-15.5); LYMPH # 0.9 10^3/uL (1.5-5.0); LYMPH % 28.8 % (24.0-44.0); MEAN CORPUSCULAR HEMOGLOBIN 33.9 pg (27.0-33.0); MEAN CORPUSCULAR HGB CONC 32.6 g/dl (32.0-36.5); MONO # 0.3 10^3/uL (0.0-0.8); MONO % 8.6 % (2.0-8.0); NEUTROPHILS # 1.9 10^3/uL (1.5-8.5); NEUTROPHILS % 60.7 % (36.0-66.0); PLATELET COUNT, AUTOMATED 223 10^3/uL (150-450); RED BLOOD COUNT 2.27 10^6/uL (4.00-5.40); WHITE BLOOD COUNT 3.1 10^3/uL (4.0-10.0)
[2023-12-02] MEDS: NS 1,000 ML IV ONE (16:32)
[2023-12-02] MEDS: MORPHINE 2 MG/ML 1ML VIAL IV ONE (16:32)
[2023-12-02] MEDS ORDERED: ISOVUE-370 76% 100ML VIAL As Ordered ONE (16:47)
[2023-12-02 16:49] LABS: INR 1.03; PARTIAL THROMBOPLASTIN TIME 26.8 SECONDS (24.8-34.2); PROTHROMBIN TIME 13.2 SECONDS (12.5-14.5)
[2023-12-02 16:56] LABS: LIPASE 21 U/L (12-53)
[2023-12-02 16:58] LABS: ALBUMIN 2.9 G/DL (3.2-5.2); ALKALINE PHOSPHATASE 111 U/L (46-116); ALT/SGPT 14 U/L (7.0-40); AST/SGOT 13 U/L (<34); BILIRUBIN,DIRECT 0.2 MG/DL (<0.4); BILIRUBIN,TOTAL 0.4 MG/DL (0.3-1.2); BLOOD UREA NITROGEN 23 MG/DL (9-23); CALCIUM LEVEL 8.6 MG/DL (8.3-10.6); CARBON DIOXIDE LEVEL 27 MMOL/L (20-31); CHLORIDE LEVEL 106 MMOL/L (98-107); CK-MB VALUE MASS < 1.0 NG/ML (<3.6); CPK CREATINE PHOSPHOKINASE 35 U/L (34-145); GLOMERULAR FILTRATION RATE 46.1 (>39); GLUCOSE, FASTING 125 MG/DL (74-106); MB/CK RELATIVE INDEX 2.85 (< OR =4); POTASSIUM SERUM 4.2 MMOL/L (3.5-5.1); SODIUM LEVEL 140 MMOL/L (136-145); TOTAL PROTEIN 6.7 G/DL (5.7-8.2)
[2023-12-02 17:09] LABS: PROCALCITONIN 0.05 ng/ml
[2023-12-02] MEDS: MORPHINE 4 MG/ML 1ML VIAL IV ONE (18:23)
[2023-12-02] MEDS: PANTOPRAZOLE 40MG VIAL IV ONE (18:53)
[2023-12-02] MEDS ORDERED: GLUCOSE 4GM CHEW TABLET PO PRN (19:35)
[2023-12-02] MEDS ORDERED: DEXTROSE 50% 50ML SYRINGE IV PRN (19:35)
[2023-12-02] MEDS ORDERED: GLUCAGON INJ 1MG VIAL SC PRN (19:35)
[2023-12-02] MEDS: cefTRIAXone SOD 1 GM in D5W MINI-BAG PLUS 50 ML IV ONE (19:48)
[2023-12-02] MEDS ORDERED: PANT40TA29 PO (19:51)
[2023-12-02 19:59] LABS: CK-MB VALUE MASS < 1.0 NG/ML (<3.6)
[2023-12-02 20:00] LABS: CPK CREATINE PHOSPHOKINASE 40 U/L (34-145)
[2023-12-02] MEDS ORDERED: HOME MED LIST COMPLETE! XX SCH (20:00)
[2023-12-02] MEDS ORDERED: FLUTICASONE PROP 0.05% NASAL SPRAY 16 GM (FLONASE) NARES PRN (20:05)
[2023-12-02] MEDS ORDERED: NITROGLYCERIN 0.4MG SUBL TABLET SL PRN (20:05)
[2023-12-02] MEDS ORDERED: ALBUTEROL 90 MCG/ACT 8GM HFA INHALER INH PRN (20:05)
[2023-12-02 20:20] LABS: MAGNESIUM LEVEL 1.5 MG/DL (1.8-2.4)
[2023-12-02 20:57] VITALS: BP 151/65; TEMP 97.2; O2SAT 95
[2023-12-02 22:00] VITALS: O2SAT 93
[2023-12-02] MEDS: PANTOPRAZOLE 40MG VIAL IV SCH (22:51)
[2023-12-02] MEDS: MAGNESIUM OXIDE 400MG TAB (MAG-OX) PO SCH (22:52)
[2023-12-02] MEDS: PREGABALIN 100 MG CAP (LYRICA) PO SCH (22:52)
[2023-12-02] MEDS: traZODone 100 MG TAB PO SCH (22:52)
[2023-12-02] MEDS: CYCLOBENZAPRINE 5MG TABLET PO SCH (22:53)
[2023-12-02] MEDS: METOPROLOL SUCC *XL* 25MG TAB (TopROL *XL*) PO SCH (22:53)
[2023-12-02] MEDS: rOPINIRole 1MG TAB PO SCH (22:53)
[2023-12-02] MEDS: INSULIN LISPRO (NovoLOG) PER UNIT SC SCH (22:53)
[2023-12-02] MEDS: oxyCODONE 5MG TAB PO PRN (22:53)
[2023-12-02] MEDS: oxyCODONE 20MG CR TAB PO SCH (22:54)
[2023-12-02 23:00] VITALS: O2SAT 91
[2023-12-02 23:01] VITALS: BP 132/52; TEMP 98.1; O2SAT 94
[2023-12-02 23:20] VITALS: BP 142/58; TEMP 97.9; O2SAT 94
[2023-12-03] VITALS (16 sets, daily range): BP systolic 129–150; BP diastolic 60–88; TEMP 96.4–98.2; O2SAT 89–99
[2023-12-03] MEDS: MORPHINE 2 MG/ML 1ML VIAL IV ONE (03:39)
[2023-12-03] MEDS: NS 1,000 ML IV SCH (04:20)
[2023-12-03] MEDS: ONDANSETRON 4MG 2ML VIAL IV ONE (05:39)
[2023-12-03] MEDS: LEVOTHYROXINE 50MCG TABLET (0.05MG) PO SCH (05:46)
[2023-12-03] MEDS: INSULIN LISPRO (NovoLOG) PER UNIT SC SCH (07:30)
[2023-12-03 07:33] LABS: HEMATOCRIT 28.5 % (36.0-47.0); HEMOGLOBIN 9.3 g/dl (12.0-15.5); MEAN CORPUSCULAR HEMOGLOBIN 31.6 pg (27.0-33.0); MEAN CORPUSCULAR HGB CONC 32.6 g/dl (32.0-36.5); MEAN CORPUSCULAR VOLUME 96.9 fl (80.0-96.0); PLATELET COUNT, AUTOMATED 202 10^3/uL (150-450); RED BLOOD COUNT 2.94 10^6/uL (4.00-5.40); WHITE BLOOD COUNT 2.8 10^3/uL (4.0-10.0)
[2023-12-03 08:12] LABS: PROCALCITONIN 0.05 ng/ml
[2023-12-03 08:18] LABS: ALBUMIN 2.7 G/DL (3.2-5.2); BILIRUBIN,TOTAL 0.9 MG/DL (0.3-1.2); CALCIUM LEVEL 8.5 MG/DL (8.3-10.6); CREATININE FOR GFR 1.16 MG/DL (0.55-1.30); MAGNESIUM LEVEL 1.6 MG/DL (1.8-2.4); POTASSIUM SERUM 4.6 MMOL/L (3.5-5.1); TOTAL PROTEIN 6.3 G/DL (5.7-8.2)
[2023-12-03] MEDS: FUROSEMIDE 20 MG TAB PO SCH (08:38)
[2023-12-03] MEDS: PRAVASTATIN 20 MG TAB PO SCH (08:38)
[2023-12-03 12:41] LABS: HEMATOCRIT 30.2 % (36.0-47.0); HEMOGLOBIN 9.9 g/dl (12.0-15.5)
[2023-12-03] MEDS: MORPHINE 2 MG/ML 1ML VIAL IV PRN (14:24)
[2023-12-03] MEDS: DOCUSATE SODIUM 100MG CAPSULE PO SCH (17:06)
[2023-12-03] MEDS: cefTRIAXone SOD 1 GM in D5W MINI-BAG PLUS 50 ML IV SCH (20:00)
[2023-12-04 04:33] VITALS: BP 132/89; TEMP 97.2; O2SAT 96
[2023-12-04 07:50] LABS: BASO % 0.4 % (0.0-1.0); EOS % 1.2 % (0.0-3.0); HEMATOCRIT 31.8 % (36.0-47.0); HEMOGLOBIN 10.1 g/dl (12.0-15.5); LYMPH # 1.3 10^3/uL (1.5-5.0); LYMPH % 48.8 % (24.0-44.0); MEAN CORPUSCULAR HEMOGLOBIN 31.3 pg (27.0-33.0); MEAN CORPUSCULAR HGB CONC 31.8 g/dl (32.0-36.5); MEAN CORPUSCULAR VOLUME 98.5 fl (80.0-96.0); MONO # 0.3 10^3/uL (0.0-0.8); MONO % 10.9 % (2.0-8.0); NEUTROPHILS % 37.9 % (36.0-66.0); PLATELET COUNT, AUTOMATED 213 10^3/uL (150-450); RED BLOOD COUNT 3.23 10^6/uL (4.00-5.40); WHITE BLOOD COUNT 2.6 10^3/uL (4.0-10.0)
[2023-12-04 08:20] VITALS: BP 137/62; TEMP 97; O2SAT 92
[2023-12-04] MEDS: PANTOPRAZOLE 40MG TAB (PROTONIX) PO SCH (09:57)
[2023-12-04 12:40] VITALS: BP 107/57; TEMP 97; O2SAT 98
[2023-12-04] MEDS: PERCOCET 5MG/325MG TAB PO PRN (15:27)
[2023-12-04 15:33] VITALS: BP_SYST 134; BP_SYST 136; BP_SYST 138; BP_DIAS 62; BP_DIAS 63; BP_DIAS 65
[2023-12-04] MEDS ORDERED: LIDOCAINE 1% MDV 20ML VIAL As Ordered ONE (18:14)
[2023-12-04] MEDS: LIDOCAINE 1% MDV 20ML VIAL SC ONE (18:41)
[2023-12-04 19:03] VITALS: BP 163/66; TEMP 97; O2SAT 98
[2023-12-04 20:19] VITALS: BP 121/64
[2023-12-04] MEDS ORDERED: cefTRIAXone SOD 2GM VIAL IM ONE (22:00)
[2023-12-04] MEDS: LIDOCAINE 1% SDV 5ML VIAL DILUENT ONE (22:37)
[2023-12-04] MEDS: cefTRIAXone SOD 1GM VIAL IM ONE (22:37)
[2023-12-05 03:05] VITALS: BP 125/73; TEMP 97.1; O2SAT 97
[2023-12-05] MEDS: HYDROmorphone 2 MG TAB PO ONE (04:02)
[2023-12-05 06:13] LABS: CALCIUM LEVEL 8.2 MG/DL (8.3-10.6); CREATININE FOR GFR 1.13 MG/DL (0.55-1.30); GLOMERULAR FILTRATION RATE 49.4 (>39); MAGNESIUM LEVEL 1.8 MG/DL (1.8-2.4)
[2023-12-05 07:19] VITALS: BP 144/63; TEMP 97.2; O2SAT 93
[2023-12-05 11:42] VITALS: BP 131/64; TEMP 96.9; O2SAT 97
[2023-12-05] MEDS: SODIUM CHLORIDE 0.9% INJ 10 ML SYR IV SCH (17:51)
[2023-12-05] MEDS: CEFEPIME HCL 2 GM in D5W MINI-BAG PLUS 50 ML IV SCH (18:24)
[2023-12-05] MEDS: HYDROMORPHONE HCL 0.5 MG/ 0.5 ML SYRINGE IV PRN (18:53)
[2023-12-05 20:32] VITALS: BP 162/73; TEMP 96.6; O2SAT 99
[2023-12-05] MEDS: ACETAMINOPHEN TAB 650MG DOSE (2X325MG) PO PRN (21:41)
[2023-12-05] MEDS: MORPHINE 2 MG/ML 1ML VIAL IV PRN (22:21)
[2023-12-05] MEDS: SODIUM CHLORIDE 0.9% INJ 10 ML SYR IV PRN (22:22)
[2023-12-06 00:15] VITALS: BP 164/76; TEMP 97.3; O2SAT 98
[2023-12-06 06:00] VITALS: BP 153/75; TEMP 97.5; O2SAT 98
[2023-12-06 06:20] LABS: BASO % 0.5 % (0.0-1.0); EOS % 1.4 % (0.0-3.0); HEMATOCRIT 28.5 % (36.0-47.0); HEMOGLOBIN 9.1 g/dl (12.0-15.5); LYMPH # 1.1 10^3/uL (1.5-5.0); MEAN CORPUSCULAR HEMOGLOBIN 31.8 pg (27.0-33.0); MEAN CORPUSCULAR HGB CONC 31.9 g/dl (32.0-36.5); MEAN CORPUSCULAR VOLUME 99.7 fl (80.0-96.0); MONO # 0.2 10^3/uL (0.0-0.8); MONO % 10.4 % (2.0-8.0); NEUTROPHILS % 37.2 % (36.0-66.0); PLATELET COUNT, AUTOMATED 204 10^3/uL (150-450); RED BLOOD COUNT 2.86 10^6/uL (4.00-5.40); WHITE BLOOD COUNT 2.2 10^3/uL (4.0-10.0)
[2023-12-06 06:27] LABS: CALCIUM LEVEL 8.6 MG/DL (8.3-10.6); CREATININE FOR GFR 1.03 MG/DL (0.55-1.30); MAGNESIUM LEVEL 1.6 MG/DL (1.8-2.4); POTASSIUM SERUM 4.3 MMOL/L (3.5-5.1)
[2023-12-06 06:31] LABS: NEUTROPHILS # 0.8 10^3/uL (1.5-8.5)
[2023-12-06 09:18] VITALS: BP 152/68
[2023-12-06] MEDS ORDERED: VITA500C24 PO (10:25)
[2023-12-06] MEDS ORDERED: BACI1CAP PO (10:25)
[2023-12-06] MEDS ORDERED: SENO8.6T10 PO (10:25)
[2023-12-06] MEDS ORDERED: LEVO1TAB38 PO (10:25)
[2023-12-06] MEDS ORDERED: CARA1TAB6 PO (10:25)
[2023-12-06] MEDS: MAG SULF 1GM/100ML (MAG RUN) 1 GM in IV 1 EA IV ONE (10:35)
[2023-12-06 13:15] VITALS: BP 155/69; TEMP 97; O2SAT 91
[2023-12-06 13:32] VITALS: BP 156/80; TEMP 97.2; O2SAT 94
[2023-12-06] MEDS ORDERED: LevoFLOXacin 750 MG TABLET PO SCH (18:00)
[2023-12-07] MEDS ORDERED: LevoFLOXacin 250 MG TABLET PO SCH (06:00)
== END 2023-12-06 16:09 | disposition home or self-care (01) | DRG 690 ==
LOC: M ED 14:22 → M ED INP 19:35 → M PCU 20:41 → M MSPAV 12-06 00:07
PROVIDERS: ADMIT Family Medicine; ATTEND General Practice
PROC: 30233N1 Transfusion of Nonautologous Red Blood Cells into Peripheral Vein, Percutaneous Approach (ICD-10-PCS; principal; 2023-12-02)
PROC: 05HC33Z Insertion of Infusion Device into Left Basilic Vein, Percutaneous Approach (ICD-10-PCS; 2023-12-04)
DX: N39.0 Urinary tract infection, site not specified (principal); F11.20 Opioid dependence, uncomplicated; I50.32 Chronic diastolic (congestive) heart failure; D62 Acute posthemorrhagic anemia; T83.512A Infection and inflammatory reaction due to nephrostomy catheter, initial encounter; I13.0 Hypertensive heart and chronic kidney disease with heart failure and stage 1 through stage 4 chronic kidney disease, or unspecified chronic kidney disease; R16.1 Splenomegaly, not elsewhere classified; E03.9 Hypothyroidism, unspecified; N18.30 Chronic kidney disease, stage 3 unspecified; K74.60 Unspecified cirrhosis of liver; E11.22 Type 2 diabetes mellitus with diabetic chronic kidney disease; J45.909 Unspecified asthma, uncomplicated; E78.5 Hyperlipidemia, unspecified; I25.10 Atherosclerotic heart disease of native coronary artery without angina pectoris; I48.91 Unspecified atrial fibrillation; E83.42 Hypomagnesemia; K21.9 Gastro-esophageal reflux disease without esophagitis; B96.1 Klebsiella pneumoniae [K. pneumoniae] as the cause of diseases classified elsewhere; G47.33 Obstructive sleep apnea (adult) (pediatric); G25.81 Restless legs syndrome; Z95.0 Presence of cardiac pacemaker; R56.9 Unspecified convulsions; R31.9 Hematuria, unspecified; R13.10 Dysphagia, unspecified; D70.9 Neutropenia, unspecified; Z88.8 Allergy status to other drugs, medicaments and biological substances; Z88.7 Allergy status to serum and vaccine; Z79.899 Other long term (current) drug therapy; G89.29 Other chronic pain; M81.0 Age-related osteoporosis without current pathological fracture; M79.7 Fibromyalgia; G40.909 Epilepsy, unspecified, not intractable, without status epilepticus

== ENCOUNTER → 2023-12-15 | Outpatient (CLI) | payer MEDICARE ==
[~2023-12-15] MED LIST changes: +BACI1CAP PO; +CARA1TAB6 PO; +ISOVUE-370 76% 100ML VIAL As Ordered ONE; +SENO8.6T10 PO; +VITA500C24 PO
== END ==
LOC: M RAD 14:32
PROVIDERS: ATTEND Physician Assistant Medical
DX: R22.1 Localized swelling, mass and lump, neck (principal)
CPT/HCPCS: 70491; Q9967

== ENCOUNTER → 2024-01-19 | Outpatient (REF) | payer MEDICARE, BC ==
[~2024-01-19] MED LIST changes: -ISOVUE-370 76% 100ML VIAL As Ordered ONE
[2024-01-19 18:44] LABS: ANISOCYTOSIS 1+; ATYPICAL LYMPH 2 % (0-5); EOSINOPHILS 1 % (0-3); HYPOCHROMASIA 1+; LYMPHOCYTES 64 % (16-44); MICROCYTOSIS 1+; MONOCYTES 3 % (0-5); NEUTROPHILS 29 % (28-66); PLATELET ESTIMATE NORMAL (NORMAL)
[2024-01-19 18:45] LABS: OVALOCYTES 1+; POIKILOCYTOSIS 1+; TEAR DROP CELLS 1+
== END ==
LOC: M LAB REF 16:29
PROVIDERS: ATTEND Internal Medicine
DX: D72.9 Disorder of white blood cells, unspecified (principal)

== ENCOUNTER → 2024-01-27 | Outpatient (REF) | payer MEDICARE, BC ==
[~2024-01-27] MED LIST changes: +ONDA-282 PO; -ONDA4TAB6 PO
[2024-01-27 18:26] LABS: APPEARANCE, URINE HAZY (CLEAR); BACTERIA, URINE AUTO 1+ (NEGATIVE); BILIRUBIN, URINE AUTO NEGATIVE (NEGATIVE); BLOOD, URINE BLOOD 1+ (NEGATIVE); COLOR, URINE STRAW (YELLOW); GLUCOSE, URINE (UA) AUTO NEGATIVE (NEGATIVE); KETONE, URINE AUTO NEGATIVE (NEGATIVE); LEUKOCYTE ESTERASE, URINE AUTO 1+ (NEGATIVE); MUCUS, URINE SMALL (NEGATIVE); NITRITE, URINE AUTO NEGATIVE (NEGATIVE); PROTEIN, URINE AUTO 1+ mg/dL (NEGATIVE); RBC, URINE AUTO 5 /HPF (0-3); SPECIFIC GRAVITY URINE AUTO 1.009 (1.002-1.035); SQUAMOUS EPITHELIAL CELL UR AU 2 /HPF (0-6); UROBILINOGEN, URINE AUTO 0.2 mg/dL (0.0-2.0); WBC, URINE AUTO 13 /HPF (0-3)
== END ==
LOC: M LAB REF 16:12
PROVIDERS: ATTEND Internal Medicine
DX: N18.32 Chronic kidney disease, stage 3b (principal); Z79.899 Other long term (current) drug therapy

== ENCOUNTER → 2024-01-29 | Outpatient (CLI) | payer MEDICARE, BC | LOC: M LAB 12:37 | PROVIDERS: ATTEND Internal Medicine | DX: N18.9 Chronic kidney disease, unspecified (principal); D63.1 Anemia in chronic kidney disease ==

== ENCOUNTER 2024-01-30 07:03 | Outpatient (CLI) | payer MEDICARE, BC ==
[~2024-01-30] VITALS: Ht 165.1 cm; Wt 70.4 kg
[2024-01-30 07:22] VITALS: BP 134/63; O2SAT 95
[2024-01-30] MEDS: diphenhydrAMINE 25MG CAP PO ONE (07:54)
[2024-01-30] MEDS: ACETAMINOPHEN TAB 650MG DOSE (2X325MG) PO ONE (07:54)
[2024-01-30 08:30] VITALS: BP 131/60; O2SAT 98
[2024-01-30 09:30] VITALS: BP 123/59; O2SAT 97
[2024-01-30 10:30] VITALS: BP 158/72; O2SAT 98
[2024-01-30] MEDS: FUROSEMIDE 40MG/4ML VIAL IV ONE (10:35)
[2024-01-30 11:30] VITALS: BP 165/74; O2SAT 97
[2024-01-30 13:35] VITALS: BP 151/72; O2SAT 99
== END 2024-01-30 13:35 ==
LOC: M INFU 07:03
PROVIDERS: ATTEND Internal Medicine
DX: N18.9 Chronic kidney disease, unspecified (principal); D63.1 Anemia in chronic kidney disease; Z88.7 Allergy status to serum and vaccine; Z88.8 Allergy status to other drugs, medicaments and biological substances; Z91.048 Other nonmedicinal substance allergy status
CPT/HCPCS: 36430; 96374; J1940; P9016

== ENCOUNTER → 2024-02-06 | Outpatient (REF) | payer MEDICARE, BC | LOC: M LAB REF 16:15 | PROVIDERS: ATTEND Internal Medicine | DX: N99.531 Infection of continent stoma of urinary tract (principal); Z79.899 Other long term (current) drug therapy ==

== ENCOUNTER → 2024-02-08 | Outpatient (CLI) | payer MEDICARE, BC | LOC: M RAD 08:30 | PROVIDERS: ATTEND Surgery | DX: K92.2 Gastrointestinal hemorrhage, unspecified (principal); G89.29 Other chronic pain; E11.22 Type 2 diabetes mellitus with diabetic chronic kidney disease; N18.9 Chronic kidney disease, unspecified | CPT/HCPCS: 78278; A9560 ==

== ENCOUNTER → 2024-02-12 | Outpatient (CLI) | payer MEDICARE, BC | LOC: M SLEEP 20:00 | PROVIDERS: ATTEND Nurse Practitioner Family | DX: G47.33 Obstructive sleep apnea (adult) (pediatric) (principal) ==

== ENCOUNTER → 2024-02-22 | Outpatient (REF) | payer MEDICARE, BC ==
[2024-02-22 18:14] LABS: FERRITIN 765.6 NG/ML (7.3-270.7)
== END ==
LOC: M LAB REF 16:20
PROVIDERS: ATTEND Internal Medicine
DX: D50.9 Iron deficiency anemia, unspecified (principal)

== ENCOUNTER 2024-04-02 14:04 | Inpatient (IN) | payer MEDICARE, BC ==
[2024-04-02] VITALS (27 sets, daily range): BP systolic 115–148; BP diastolic 54–98; TEMP 97.3–99.4; O2SAT 92–96
[~2024-04-02] VITALS: Ht 160 cm; Wt 75.3 kg
[2024-04-02] MEDS: MORPHINE 4 MG/ML 1ML VIAL IV PRN (14:54)
[2024-04-02 15:17] LABS: ALBUMIN 3.2 G/DL (3.2-5.2); BILIRUBIN,DIRECT 0.1 MG/DL (<0.4); BILIRUBIN,TOTAL 0.3 MG/DL (0.3-1.2); CREATININE FOR GFR 1.57 MG/DL (0.55-1.30); GLOMERULAR FILTRATION RATE 33.7 (>32); POTASSIUM SERUM 5.7 MMOL/L (3.5-5.1); TOTAL PROTEIN 6.6 G/DL (5.7-8.2)
[2024-04-02 15:28] LABS: BASO % 0.6 % (0.0-1.0); EOS # 0.1 10^3/uL (0.0-0.5); EOS % 2.6 % (0.0-3.0); LYMPH # 0.9 10^3/uL (1.5-5.0); LYMPH % 25.7 % (24.0-44.0); MEAN CORPUSCULAR HEMOGLOBIN 36.8 pg (27.0-33.0); MEAN CORPUSCULAR HGB CONC 32.5 g/dl (32.0-36.5); MEAN CORPUSCULAR VOLUME 113.2 fl (80.0-96.0); MONO # 0.5 10^3/uL (0.0-0.8); MONO % 13.1 % (2.0-8.0); NEUTROPHILS % 57.7 % (36.0-66.0); PLATELET COUNT, AUTOMATED 218 10^3/uL (150-450); RED BLOOD COUNT 1.82 10^6/uL (4.00-5.40); WHITE BLOOD COUNT 3.5 10^3/uL (4.0-10.0)
[2024-04-02] MEDS: NS 1,000 ML IV SCH (15:30)
[2024-04-02 15:34] LABS: HEMATOCRIT 20.6 % (36.0-47.0); HEMOGLOBIN 6.7 g/dl (12.0-15.5)
[2024-04-02] MEDS ORDERED: HumuLIN R (REGULAR) INSULIN (NovoLIN R) **100U/ML** PER UNIT IV STA (17:38)
[2024-04-02 17:59] LABS: INR 1.1; PARTIAL THROMBOPLASTIN TIME 23.7 SECONDS (24.8-34.2); PROTHROMBIN TIME 13.9 SECONDS (12.5-14.5)
[2024-04-02] MEDS: DEXTROSE 50% 50ML SYRINGE IV STA (17:59)
[2024-04-02] MEDS: FUROSEMIDE 40MG/4ML VIAL IV STA (17:59)
[2024-04-02] MEDS: HumuLIN R (REGULAR) INSULIN (NovoLIN R) **100U/ML** PER UNIT IV STA (17:59)
[2024-04-02] MEDS: LR 1,000 ML IV STA (18:00)
[2024-04-02] MEDS ORDERED: MELA10CA2 PO (18:51)
[2024-04-02] MEDS ORDERED: MULT-90 PO (18:51)
[2024-04-02] MEDS ORDERED: SENN-83 PO (18:51)
[2024-04-02] MEDS ORDERED: ASCO500T PO (18:51)
[2024-04-02] MEDS ORDERED: SUCR1TAB56 PO (18:51)
[2024-04-02] MEDS ORDERED: HOME MED LIST COMPLETE! XX SCH (18:55)
[2024-04-02] MEDS ORDERED: NITROGLYCERIN 0.4MG SUBL TABLET SL PRN (19:00)
[2024-04-02] MEDS ORDERED: ALBUTEROL 90 MCG/ACT 8GM HFA INHALER INH PRN (19:00)
[2024-04-02] MEDS ORDERED: FLUTICASONE PROP 0.05% NASAL SPRAY 16 GM (FLONASE) NARES PRN (19:00)
[2024-04-02] MEDS ORDERED: GLUCOSE 4 GM CHEW PO PRN (19:45)
[2024-04-02] MEDS ORDERED: DEXTROSE 50% 50ML SYRINGE IV PRN (19:45)
[2024-04-02] MEDS ORDERED: GLUCAGON INJ 1MG VIAL SC PRN (19:45)
[2024-04-02] MEDS: HYDROMORPHONE HCL 0.5 MG/ 0.5 ML SYRINGE IV PRN (19:59)
[2024-04-02] MEDS: LR 1,000 ML IV SCH (20:03)
[2024-04-02] MEDS: INSULIN LISPRO (NovoLOG) PER UNIT SC SCH (20:04)
[2024-04-02] MEDS: PREGABALIN 100 MG CAP (LYRICA) NG SCH (21:20)
[2024-04-02] MEDS: CYCLOBENZAPRINE 5MG TABLET NG SCH (21:20)
[2024-04-02] MEDS: traZODone 100 MG TAB NG SCH (21:21)
[2024-04-02] MEDS: METOPROLOL SUCC *XL* 25MG TAB (TopROL *XL*) PO SCH (21:21)
[2024-04-02] MEDS: SUCRALFATE 1 GM TAB NG SCH (21:21)
[2024-04-02] MEDS: PANTOPRAZOLE 40MG VIAL IV SCH (21:22)
[2024-04-02] MEDS: rOPINIRole 1MG TAB NG SCH (23:46)
[2024-04-03 00:53] VITALS: BP 139/63; TEMP 97.4; O2SAT 92
[2024-04-03 00:54] LABS: HEMATOCRIT 26.9 % (36.0-47.0)
[2024-04-03 01:02] LABS: HEMOGLOBIN 8.8 g/dl (12.0-15.5)
[2024-04-03 04:14] VITALS: BP 118/48; TEMP 97.2
[2024-04-03 05:27] VITALS: BP 119/49; TEMP 97; O2SAT 97
[2024-04-03] MEDS: LEVOTHYROXINE 100MCG (0.1MG) 5ML SDV PF (SOLUTION FORM) IV SCH (05:29)
[2024-04-03 05:50] VITALS: BP 143/82; TEMP 97.7
[2024-04-03 05:56] LABS: BASO % 0.4 % (0.0-1.0); EOS # 0.1 10^3/uL (0.0-0.5); EOS % 2.5 % (0.0-3.0); HEMATOCRIT 25.3 % (36.0-47.0); HEMOGLOBIN 8.4 g/dl (12.0-15.5); LYMPH # 1.2 10^3/uL (1.5-5.0); LYMPH % 47.5 % (24.0-44.0); MEAN CORPUSCULAR HEMOGLOBIN 34.4 pg (27.0-33.0); MEAN CORPUSCULAR HGB CONC 33.2 g/dl (32.0-36.5); MEAN CORPUSCULAR VOLUME 103.7 fl (80.0-96.0); MONO # 0.3 10^3/uL (0.0-0.8); MONO % 10.7 % (2.0-8.0); NEUTROPHILS % 38.9 % (36.0-66.0); PLATELET COUNT, AUTOMATED 218 10^3/uL (150-450); RED BLOOD COUNT 2.44 10^6/uL (4.00-5.40); WHITE BLOOD COUNT 2.4 10^3/uL (4.0-10.0)
[2024-04-03 05:57] LABS: NEUTROPHILS # 0.9 10^3/uL (1.5-8.5)
[2024-04-03 06:28] LABS: BLOOD UREA NITROGEN 29 MG/DL (9-23); CALCIUM LEVEL 8.6 MG/DL (8.3-10.6); CARBON DIOXIDE LEVEL 30 MMOL/L (20-31); CHLORIDE LEVEL 106 MMOL/L (98-107); CREATININE FOR GFR 1.45 MG/DL (0.55-1.30); GLUCOSE, FASTING 92 MG/DL (74-106); MAGNESIUM LEVEL 1.6 MG/DL (1.8-2.4); SODIUM LEVEL 141 MMOL/L (136-145)
[2024-04-03] MEDS: CALCITRIOL 0.25 MCG CAP (S0169) NG SCH (08:19)
[2024-04-03] MEDS: MAG SULF 1GM/100ML (MAG RUN) 1 GM in IV 1 EA IV SCH (08:20)
[2024-04-03] MEDS: DOCUSATE SODIUM 100MG CAPSULE PO SCH (08:24)
[2024-04-03 11:52] LABS: VITAMIN B12 LEVEL 199 PG/ML (211-911)
[2024-04-03 11:54] LABS: FOLATE > 24.00 NG/ML (>5.4)
[2024-04-03 12:00] VITALS: BP 95/43; TEMP 97.5; O2SAT 94
[2024-04-03] MEDS: HYDROMORPHONE HCL 0.5 MG/ 0.5 ML SYRINGE IV PRN (13:18)
[2024-04-03] MEDS: PATIROMER SORBITEX CALCIUM 8.4 GM POWDER PACKET (VELTASSA) PO STA (14:33)
[2024-04-03] MEDS ORDERED: INSULIN LISPRO (NovoLOG) PER UNIT SC SCH ×2 (17:30→21:00)
[2024-04-03] MEDS: PREGABALIN 100 MG CAP (LYRICA) PO SCH (18:16)
[2024-04-03] MEDS: SUCRALFATE 1 GM TAB PO SCH (18:17)
[2024-04-03] MEDS: NS 1,000 ML IV SCH (18:17)
[2024-04-03] MEDS: CYCLOBENZAPRINE 5MG TABLET PO SCH (18:17)
[2024-04-03 20:05] VITALS: BP 140/62; TEMP 96.6; O2SAT 95
[2024-04-03] MEDS: rOPINIRole 1MG TAB PO SCH (20:18)
[2024-04-03] MEDS: traZODone 100 MG TAB PO SCH (20:18)
[2024-04-03] MEDS: ONDANSETRON 4MG 2ML VIAL IV PRN (20:27)
[2024-04-04 04:36] VITALS: BP 137/62; TEMP 96.4; O2SAT 97
[2024-04-04] MEDS: LEVOTHYROXINE 50MCG TABLET (0.05MG) PO SCH (05:06)
[2024-04-04 06:09] LABS: EOS % 2.2 % (0.0-3.0); HEMATOCRIT 25.3 % (36.0-47.0); HEMOGLOBIN 8.2 g/dl (12.0-15.5); LYMPH # 0.9 10^3/uL (1.5-5.0); LYMPH % 50.3 % (24.0-44.0); MEAN CORPUSCULAR HEMOGLOBIN 34.6 pg (27.0-33.0); MEAN CORPUSCULAR HGB CONC 32.4 g/dl (32.0-36.5); MEAN CORPUSCULAR VOLUME 106.8 fl (80.0-96.0); MONO # 0.2 10^3/uL (0.0-0.8); MONO % 10.3 % (2.0-8.0); NEUTROPHILS % 36.7 % (36.0-66.0); PLATELET COUNT, AUTOMATED 195 10^3/uL (150-450); RED BLOOD COUNT 2.37 10^6/uL (4.00-5.40); WHITE BLOOD COUNT 1.9 10^3/uL (4.0-10.0)
[2024-04-04 06:40] LABS: CALCIUM LEVEL 8.4 MG/DL (8.3-10.6); CREATININE FOR GFR 1.17 MG/DL (0.55-1.30); GLOMERULAR FILTRATION RATE 47.4 (>32); MAGNESIUM LEVEL 1.8 MG/DL (1.8-2.4); POTASSIUM SERUM 4.6 MMOL/L (3.5-5.1)
[2024-04-04 07:54] LABS: NEUTROPHILS # 0.7 10^3/uL (1.5-8.5)
[2024-04-04] MEDS: CALCITRIOL 0.25 MCG CAP (S0169) PO SCH (08:23)
[2024-04-04] MEDS: CYANOCOBALAMIN 1,000MCG/ML 1ML VIAL IM SCH (08:24)
[2024-04-04] MEDS: SENNA 8.6 MG TAB (SENOKOT) PO SCH (09:59)
[2024-04-04] MEDS: oxyCODONE 20MG CR TAB PO SCH (11:49)
[2024-04-04 12:00] VITALS: BP 117/57; TEMP 96.6; O2SAT 94
[2024-04-04] MEDS: INSULIN LISPRO (NovoLOG) PER UNIT SC SCH ×2 (17:30→21:00)
[2024-04-04] MEDS: oxyCODONE 5MG TAB PO PRN (18:19)
[2024-04-04 20:15] VITALS: BP 125/57; TEMP 96.4; O2SAT 94
[2024-04-05 04:21] VITALS: BP 102/40; TEMP 97.2; O2SAT 98
[2024-04-05 05:00] VITALS: BP 118/52
[2024-04-05 07:38] LABS: BASO % 0.5 % (0.0-1.0); EOS # 0.1 10^3/uL (0.0-0.5); EOS % 2.4 % (0.0-3.0); HEMATOCRIT 25.2 % (36.0-47.0); HEMOGLOBIN 8.3 g/dl (12.0-15.5); LYMPH # 0.9 10^3/uL (1.5-5.0); LYMPH % 44.2 % (24.0-44.0); MEAN CORPUSCULAR HEMOGLOBIN 34.7 pg (27.0-33.0); MEAN CORPUSCULAR HGB CONC 32.9 g/dl (32.0-36.5); MEAN CORPUSCULAR VOLUME 105.4 fl (80.0-96.0); MONO # 0.2 10^3/uL (0.0-0.8); MONO % 11.1 % (2.0-8.0); NEUTROPHILS % 40.8 % (36.0-66.0); PLATELET COUNT, AUTOMATED 198 10^3/uL (150-450); RED BLOOD COUNT 2.39 10^6/uL (4.00-5.40); WHITE BLOOD COUNT 2.1 10^3/uL (4.0-10.0)
[2024-04-05 07:50] LABS: NEUTROPHILS # 0.9 10^3/uL (1.5-8.5)
[2024-04-05 08:02] LABS: CALCIUM LEVEL 8.5 MG/DL (8.3-10.6); CREATININE FOR GFR 1.11 MG/DL (0.55-1.30); GLOMERULAR FILTRATION RATE 50.3 (>32); MAGNESIUM LEVEL 1.7 MG/DL (1.8-2.4); POTASSIUM SERUM 4.3 MMOL/L (3.5-5.1)
[2024-04-05] MEDS ORDERED: E-Z-PAQUE 96% w/w SUSP 176GM BTL As Ordered ONE (08:06)
[2024-04-05] MEDS ORDERED: E-Z-HD 98% w/w 340GM SUSP BTL As Ordered ONE (08:06)
[2024-04-05] MEDS ORDERED: E-Z-GAS II EFFERVESCENT PACKET (SODIUM BICARB./CITRIC ACID/SIMETHICONE) As Ordered ONE (08:06)
[2024-04-05 12:00] VITALS: BP 104/43; TEMP 97.3; O2SAT 92
[2024-04-05] MEDS: MAG SULF 1GM/100ML (MAG RUN) 1 GM in IV 1 EA IV SCH (13:31)
[2024-04-05 16:00] VITALS: BP 104/46; TEMP 97.2; O2SAT 93
[2024-04-05] MEDS: MAG SULF 1GM/100ML (MAG RUN) 1 GM in IV 1 EA IV ONE (16:00)
[2024-04-05 20:04] VITALS: BP 154/62
[2024-04-06 03:31] VITALS: BP 124/50; TEMP 97.7; O2SAT 93
[2024-04-06 06:11] LABS: BASO % 0.5 % (0.0-1.0); EOS % 1.5 % (0.0-3.0); HEMOGLOBIN 8.3 g/dl (12.0-15.5); LYMPH # 1.1 10^3/uL (1.5-5.0); LYMPH % 54.6 % (24.0-44.0); MEAN CORPUSCULAR HEMOGLOBIN 34.9 pg (27.0-33.0); MEAN CORPUSCULAR HGB CONC 33.2 g/dl (32.0-36.5); MONO # 0.2 10^3/uL (0.0-0.8); MONO % 8.8 % (2.0-8.0); NEUTROPHILS % 34.1 % (36.0-66.0); PLATELET COUNT, AUTOMATED 213 10^3/uL (150-450); RED BLOOD COUNT 2.38 10^6/uL (4.00-5.40); WHITE BLOOD COUNT 1.9 10^3/uL (4.0-10.0)
[2024-04-06 06:18] LABS: NEUTROPHILS # 0.7 10^3/uL (1.5-8.5)
[2024-04-06 06:42] LABS: CALCIUM LEVEL 8.6 MG/DL (8.3-10.6); CREATININE FOR GFR 1.11 MG/DL (0.55-1.30); GLOMERULAR FILTRATION RATE 50.3 (>32); POTASSIUM SERUM 4.1 MMOL/L (3.5-5.1)
[2024-04-06] MEDS: SENOKOT S TAB PO SCH (08:52)
[2024-04-06 12:22] VITALS: BP 129/74; TEMP 97.5; O2SAT 95
[2024-04-06] MEDS ORDERED: MILKSUS7 PO (15:04)
[2024-04-06] MEDS ORDERED: POLY17PO18 PO (15:04)
[2024-04-06] MEDS ORDERED: SENN-52 PO (15:04)
[2024-04-06] MEDS ORDERED: CYAN-1 PO (15:48)
== END 2024-04-06 17:00 | disposition home or self-care (01) | DRG 389 ==
LOC: M ED 14:04 → M ED INP 17:11 → M MS5PR 22:45
PROVIDERS: ADMIT General Practice; ATTEND Internal Medicine
PROC: 30233N1 Transfusion of Nonautologous Red Blood Cells into Peripheral Vein, Percutaneous Approach (ICD-10-PCS; principal; 2024-04-02)
DX: K56.600 Partial intestinal obstruction, unspecified as to cause (principal); I50.32 Chronic diastolic (congestive) heart failure; D62 Acute posthemorrhagic anemia; N17.9 Acute kidney failure, unspecified; I13.0 Hypertensive heart and chronic kidney disease with heart failure and stage 1 through stage 4 chronic kidney disease, or unspecified chronic kidney disease; I25.10 Atherosclerotic heart disease of native coronary artery without angina pectoris; I49.5 Sick sinus syndrome; E78.5 Hyperlipidemia, unspecified; E11.22 Type 2 diabetes mellitus with diabetic chronic kidney disease; E03.9 Hypothyroidism, unspecified; Z96.0 Presence of urogenital implants; N13.9 Obstructive and reflux uropathy, unspecified; G47.33 Obstructive sleep apnea (adult) (pediatric); J45.909 Unspecified asthma, uncomplicated; N18.31 Chronic kidney disease, stage 3a; D63.1 Anemia in chronic kidney disease; G25.81 Restless legs syndrome; M54.9 Dorsalgia, unspecified; G89.29 Other chronic pain; M79.7 Fibromyalgia; E87.5 Hyperkalemia; Z86.73 Personal history of transient ischemic attack (TIA), and cerebral infarction without residual deficits; Z95.0 Presence of cardiac pacemaker; Z79.890 Hormone replacement therapy; Z79.899 Other long term (current) drug therapy; Z88.2 Allergy status to sulfonamides; Z88.8 Allergy status to other drugs, medicaments and biological substances; Z88.7 Allergy status to serum and vaccine; Z91.048 Other nonmedicinal substance allergy status; Z79.891 Long term (current) use of opiate analgesic; I48.91 Unspecified atrial fibrillation; K21.9 Gastro-esophageal reflux disease without esophagitis; K56.7 Ileus, unspecified; E83.42 Hypomagnesemia

== ENCOUNTER → 2024-04-19 | Outpatient (CLI) | payer MEDICARE, BC ==
[~2024-04-19] MED LIST changes: +ASCO500T PO; +CYAN-1 PO; +ISOVUE-300 61% 100ML VIAL As Ordered ONE; +LIDOCAINE 1% MDV 20ML VIAL As Ordered ONE; +LIDOCAINE 2% 100MG/5ML SDV (FOR ANES.) As Ordered ONE; +MELA10CA2 PO; +MIDAZOLAM INJ 2MG/2ML VIAL As Ordered ONE; +MILKSUS7 PO; +MULT-90 PO; +NS 1,000 ML IV SCH; +ONDANSETRON 4MG 2ML VIAL As Ordered ONE; +ONDANSETRON 4MG 2ML VIAL IV PRN; +PERCOCET 5MG/325MG TAB As Ordered ONE; +PHENYLephrine 500MCG 5ML (100MCG/ML) SYRINGE As Ordered ONE; +POLY17PO18 PO; +SENN-52 PO; +SENN-83 PO; +SUCR1TAB56 PO; +VANCOMYCIN 1000MG/20ML VIAL As Ordered ONE; +cefTRIAXone SOD 1 GM in D5W MINI-BAG PLUS 50 ML IV ONE; +dexmedeTOMIDine (4MCG/ML)200MCG/50ML BTL (PRECEDEX) As Ordered ONE; +ePHEDrine SULFATE 25 MG/5 ML(5MG/ML) SYRINGE As Ordered ONE; +fentaNYL 100 MCG/2 ML INJECTION As Ordered ONE; +propofoL 200 MG/20 ML VIAL As Ordered ONE
[2024-04-19] MEDS: VANCOMYCIN HCL 1,000 MG, VIAL MATE ADAPTER 1 EACH in D5W 250 ML IV ONE (13:47)
[2024-04-19 14:50] VITALS: TEMP 96.1
[2024-04-19] MEDS: PERCOCET 5MG/325MG TAB PO PRN (14:50)
[2024-04-19 16:20] VITALS: BP 138/58; O2SAT 97
== END ==
LOC: M IRPRO 12:10
PROVIDERS: ATTEND Student in an Organized Health Care Education/Training Program
DX: N13.30 Unspecified hydronephrosis (principal)
CPT/HCPCS: 50432; 50435; 76942; C1729; C1769; C1894; J2250; J2371; J2405; J3010; J3370; Q9967

== ENCOUNTER → 2024-05-01 | Outpatient (CLI) | payer MEDICARE, BC ==
[~2024-05-01] MED LIST changes: -ISOVUE-300 61% 100ML VIAL As Ordered ONE; -LIDOCAINE 1% MDV 20ML VIAL As Ordered ONE; -LIDOCAINE 2% 100MG/5ML SDV (FOR ANES.) As Ordered ONE; -MIDAZOLAM INJ 2MG/2ML VIAL As Ordered ONE; -NS 1,000 ML IV SCH; -ONDANSETRON 4MG 2ML VIAL As Ordered ONE; -ONDANSETRON 4MG 2ML VIAL IV PRN; +OXYC20TA40 PO; -PERCOCET 5MG/325MG TAB As Ordered ONE; -PHENYLephrine 500MCG 5ML (100MCG/ML) SYRINGE As Ordered ONE; +SENN-187 PO; -SENN-83 PO; -VANCOMYCIN 1000MG/20ML VIAL As Ordered ONE; -cefTRIAXone SOD 1 GM in D5W MINI-BAG PLUS 50 ML IV ONE; -dexmedeTOMIDine (4MCG/ML)200MCG/50ML BTL (PRECEDEX) As Ordered ONE; -ePHEDrine SULFATE 25 MG/5 ML(5MG/ML) SYRINGE As Ordered ONE; -fentaNYL 100 MCG/2 ML INJECTION As Ordered ONE; -propofoL 200 MG/20 ML VIAL As Ordered ONE
== END ==
LOC: M LAB 10:18
PROVIDERS: ATTEND Internal Medicine Nephrology
DX: D62 Acute posthemorrhagic anemia (principal)

== ENCOUNTER 2024-05-02 10:02 | Outpatient (CLI) | payer MEDICARE, BC ==
[~2024-05-02] VITALS: Ht 165.1 cm; Wt 68.1 kg
[~2024-05-02 10:02] MED LIST changes: +NS 250 ML IV ONE
[2024-05-02 10:15] VITALS: BP 158/67; O2SAT 96
[2024-05-02 12:15] VITALS: BP 125/62; TEMP 96.8; O2SAT 97
[2024-05-02 13:15] VITALS: BP 149/70; TEMP 97; O2SAT 100
[2024-05-02 16:40] VITALS: BP 178/78; TEMP 97; O2SAT 98
[2024-05-02 17:05] VITALS: BP 168/80; O2SAT 96
== END 2024-05-02 17:05 ==
LOC: M INFU 10:02
PROVIDERS: ATTEND Internal Medicine Nephrology
DX: D62 Acute posthemorrhagic anemia (principal); Z88.1 Allergy status to other antibiotic agents; Z88.2 Allergy status to sulfonamides; Z88.7 Allergy status to serum and vaccine; Z88.8 Allergy status to other drugs, medicaments and biological substances
CPT/HCPCS: 36430; P9016

== ENCOUNTER 2024-05-08 07:57 | Day surgery (SDC) | payer MEDICARE, BC ==
[~2024-05-08] VITALS: Ht 162.6 cm; Wt 71.7 kg
[~2024-05-08 07:57] MED LIST changes: -NS 250 ML IV ONE
[2024-05-08] MEDS ORDERED: MIDAZOLAM INJ 2MG/2ML VIAL As Ordered ONE (08:50)
[2024-05-08] MEDS ORDERED: fentaNYL 100 MCG/2 ML INJECTION As Ordered ONE (08:51)
[2024-05-08] MEDS ORDERED: propofoL 500 MG/50 ML VIAL As Ordered ONE (08:51)
[2024-05-08] MEDS ORDERED: LIDOCAINE 2% 100MG/5ML SDV (FOR ANES.) As Ordered ONE (08:53)
[2024-05-08] MEDS: ceFAZolin SOD 2 GM in IV 1 EA IV ONE (10:16)
[2024-05-08] MEDS ORDERED: KETAMINE HCL 200MG/20ML VIAL As Ordered ONE (10:19)
[2024-05-08] MEDS ORDERED: PHENYLephrine 500MCG 5ML (100MCG/ML) SYRINGE As Ordered ONE (10:38)
[2024-05-08] MEDS: HEPARIN SOD (PORCINE) 5000UNITS/ML 1ML VIAL/SYRINGE As Ordered ONE (11:04)
[2024-05-08] MEDS: LIDOCAINE 1% SDV 30ML VIAL As Ordered ONE (11:09)
[2024-05-08 12:00] VITALS: BP 120/58; TEMP 97.3; O2SAT 97
[2024-05-30] MEDS ORDERED: QUET1TAB17 PO (07:42)
[2024-05-30] MEDS ORDERED: CEFA500C2 PO (07:42)
== END 2024-05-08 12:21 | disposition home or self-care (01) ==
LOC: M SDC 07:57
PROVIDERS: ATTEND Surgery
DX: Z45.2 Encounter for adjustment and management of vascular access device (principal); I48.0 Paroxysmal atrial fibrillation; N18.32 Chronic kidney disease, stage 3b; D63.1 Anemia in chronic kidney disease; E11.21 Type 2 diabetes mellitus with diabetic nephropathy; D72.819 Decreased white blood cell count, unspecified; G47.33 Obstructive sleep apnea (adult) (pediatric); I49.5 Sick sinus syndrome; E78.00 Pure hypercholesterolemia, unspecified; G89.4 Chronic pain syndrome; E03.9 Hypothyroidism, unspecified; K57.92 Diverticulitis of intestine, part unspecified, without perforation or abscess without bleeding; K74.60 Unspecified cirrhosis of liver; M79.7 Fibromyalgia; M81.0 Age-related osteoporosis without current pathological fracture; G43.909 Migraine, unspecified, not intractable, without status migrainosus; G40.909 Epilepsy, unspecified, not intractable, without status epilepticus; J45.909 Unspecified asthma, uncomplicated; Z95.0 Presence of cardiac pacemaker; K21.9 Gastro-esophageal reflux disease without esophagitis; F41.9 Anxiety disorder, unspecified; F32.A Depression, unspecified; Z86.73 Personal history of transient ischemic attack (TIA), and cerebral infarction without residual deficits; Z79.51 Long term (current) use of inhaled steroids; Z79.899 Other long term (current) drug therapy; Z88.8 Allergy status to other drugs, medicaments and biological substances; Z88.7 Allergy status to serum and vaccine
CPT/HCPCS: 36561; 71045; 76000; C1788; J0665; J0690; J1642; J2250; J2371; J3010

== ENCOUNTER → 2024-06-06 | Outpatient (CLI) | payer MEDICARE, BC ==
[~2024-06-06] MED LIST changes: +CEFA500C2 PO; +QUET1TAB17 PO
[2024-06-06 15:21] LABS: BASO % 0.3 % (0.0-1.0); HEMATOCRIT 25.4 % (36.0-47.0); HEMOGLOBIN 8.2 g/dl (12.0-15.5); LYMPH # 1.1 10^3/uL (1.5-5.0); LYMPH % 27.4 % (24.0-44.0); MEAN CORPUSCULAR HEMOGLOBIN 34.6 pg (27.0-33.0); MEAN CORPUSCULAR HGB CONC 32.3 g/dl (32.0-36.5); MEAN CORPUSCULAR VOLUME 107.2 fl (80.0-96.0); MONO # 0.3 10^3/uL (0.0-0.8); MONO % 8.6 % (2.0-8.0); NEUTROPHILS # 2.5 10^3/uL (1.5-8.5); NEUTROPHILS % 62.2 % (36.0-66.0); PLATELET COUNT, AUTOMATED 298 10^3/uL (150-450); RED BLOOD COUNT 2.37 10^6/uL (4.00-5.40); WHITE BLOOD COUNT 3.9 10^3/uL (4.0-10.0)
[2024-06-06 15:49] LABS: FERRITIN 955.2 NG/ML (7.3-270.7); THYROID STIMULATING HORMONE 2.521 uIU/ML (0.55-4.78)
[2024-06-06 15:50] LABS: FREE T4 1.12 NG/DL (0.89-1.76)
[2024-06-12 16:08] LABS: SOLUBLE TRANSFERRIN RECEPTOR 0.53 mg/L (0.76-1.76)
== END ==
LOC: M PLALAB 12:42
PROVIDERS: ATTEND Internal Medicine Hematology
DX: D53.9 Nutritional anemia, unspecified (principal); D72.819 Decreased white blood cell count, unspecified

== ENCOUNTER → 2024-06-07 | Outpatient (CLI) | payer MEDICARE, BC ==
[~2024-06-07] MED LIST changes: +CAPS1ADH TP; +SENN-186 PO; +ZYVO1TAB PO
== END ==
LOC: M PAIN 13:00
PROVIDERS: ATTEND Nurse Practitioner Family
DX: M54.2 Cervicalgia (principal); G89.29 Other chronic pain; E11.9 Type 2 diabetes mellitus without complications; J45.909 Unspecified asthma, uncomplicated; G47.33 Obstructive sleep apnea (adult) (pediatric); I13.0 Hypertensive heart and chronic kidney disease with heart failure and stage 1 through stage 4 chronic kidney disease, or unspecified chronic kidney disease; I50.9 Heart failure, unspecified; N18.31 Chronic kidney disease, stage 3a; Z79.891 Long term (current) use of opiate analgesic; Z79.890 Hormone replacement therapy; Z79.899 Other long term (current) drug therapy; Z88.5 Allergy status to narcotic agent; Z88.1 Allergy status to other antibiotic agents; Z88.8 Allergy status to other drugs, medicaments and biological substances; Z91.048 Other nonmedicinal substance allergy status

== ENCOUNTER 2024-06-08 17:18 | Emergency (ER) | payer MEDICARE, BC ==
[~2024-06-08] VITALS: Ht 165.1 cm; Wt 70.5 kg
[~2024-06-08 17:18] MED LIST changes: -CIPROFLOXACIN 400 MG in IV 1 EA IV ONE; -CIPROFLOXACIN/D5W 400 MG/200 ML BAG As Ordered ONE; -ISOVUE-300 61% 100ML VIAL As Ordered ONE; -LIDOCAINE 1% MDV 20ML VIAL As Ordered ONE; -MIDAZOLAM INJ 2MG/2ML VIAL As Ordered ONE; -ONDANSETRON 4MG 2ML VIAL As Ordered ONE; -fentaNYL 100 MCG/2 ML INJECTION As Ordered ONE; -propofoL 200 MG/20 ML VIAL As Ordered ONE
[2024-06-08 17:21] VITALS: BP 135/63; TEMP 97; O2SAT 92
== END 2024-06-08 18:55 | disposition left against medical advice (07) ==
LOC: M ED 17:18
DX: Z53.21 Procedure and treatment not carried out due to patient leaving prior to being seen by health care provider (principal)

== ENCOUNTER → 2024-06-08 | Outpatient (CLI) | payer MEDICARE, BC ==
[~2024-06-08] MED LIST changes: -CAPS1ADH TP; +CIPROFLOXACIN 400 MG in IV 1 EA IV ONE; +CIPROFLOXACIN/D5W 400 MG/200 ML BAG As Ordered ONE; +ISOVUE-300 61% 100ML VIAL As Ordered ONE; +LIDOCAINE 1% MDV 20ML VIAL As Ordered ONE; +MIDAZOLAM INJ 2MG/2ML VIAL As Ordered ONE; +ONDANSETRON 4MG 2ML VIAL As Ordered ONE; -SENN-186 PO; -ZYVO1TAB PO; +fentaNYL 100 MCG/2 ML INJECTION As Ordered ONE; +propofoL 200 MG/20 ML VIAL As Ordered ONE
[2024-06-08 14:50] VITALS: TEMP 98.1
[2024-06-08 17:00] VITALS: BP 132/62; O2SAT 94
== END ==
LOC: M IRPRO 14:35
PROVIDERS: ATTEND Radiology Diagnostic Radiology
DX: N13.30 Unspecified hydronephrosis (principal); N39.0 Urinary tract infection, site not specified
CPT/HCPCS: 50432; 50435; 87088; 87186; C1729; J0744; J1642; J2250; J2405; J3010; Q9967

== ENCOUNTER → 2024-06-11 | Outpatient (REF) | payer MEDICARE, BC ==
[~2024-06-11] MED LIST changes: +CAPS1ADH TP; +SENN-186 PO
[2024-06-11 14:52] LABS: INR 1.04; PARTIAL THROMBOPLASTIN TIME 24.1 SECONDS (24.8-34.2); PROTHROMBIN TIME 13.3 SECONDS (12.5-14.5)
== END ==
LOC: M LAB REF 14:30
PROVIDERS: ATTEND Internal Medicine Hematology
DX: D72.819 Decreased white blood cell count, unspecified (principal); D53.9 Nutritional anemia, unspecified; E11.9 Type 2 diabetes mellitus without complications; J45.909 Unspecified asthma, uncomplicated; I10 Essential (primary) hypertension; G47.33 Obstructive sleep apnea (adult) (pediatric)

== ENCOUNTER → 2024-06-13 | Day surgery (SDC) | payer MEDICARE, BC ==
[~2024-06-13] VITALS: Ht 165.1 cm; Wt 72.6 kg
[~2024-06-13] MED LIST changes: -CYCL5TAB PO; +CYCL5TAB4 PO; +FLUC-1; -FLUC200T4; +LIDOCAINE 2% 100MG/5ML SDV (FOR ANES.) As Ordered ONE; +META-10 PO; -META1TAB22 PO; +PHENYLephrine 500MCG 5ML (100MCG/ML) SYRINGE As Ordered ONE; +ZYVO1TAB PO; +ePHEDrine SULFATE 25 MG/5 ML(5MG/ML) SYRINGE As Ordered ONE; +propofoL 200 MG/20 ML VIAL As Ordered ONE
[2024-06-13 15:40] VITALS: BP 120/55; TEMP 97.5; O2SAT 94
== END | disposition home or self-care (01) ==
LOC: M OPP 13:08
PROVIDERS: ATTEND Internal Medicine Gastroenterology
DX: D50.9 Iron deficiency anemia, unspecified (principal); K57.30 Diverticulosis of large intestine without perforation or abscess without bleeding; Z98.0 Intestinal bypass and anastomosis status; K44.9 Diaphragmatic hernia without obstruction or gangrene; E11.9 Type 2 diabetes mellitus without complications; Z88.1 Allergy status to other antibiotic agents; Z88.2 Allergy status to sulfonamides; Z88.7 Allergy status to serum and vaccine; Z88.8 Allergy status to other drugs, medicaments and biological substances; Z91.048 Other nonmedicinal substance allergy status; Z79.51 Long term (current) use of inhaled steroids; Z79.899 Other long term (current) drug therapy

== ENCOUNTER 2024-06-16 19:16 | Inpatient (IN) | payer MEDICARE, BC ==
[~2024-06-16] VITALS: Ht 165.1 cm; Wt 76.2 kg
[~2024-06-16 19:16] MED LIST changes: -CAPS1ADH TP; -SENN-186 PO
[2024-06-16 20:40] LABS: EOS % 1.6 % (0.0-3.0); LYMPH # 1.1 10^3/uL (1.5-5.0); MEAN CORPUSCULAR HEMOGLOBIN 35.4 pg (27.0-33.0); MEAN CORPUSCULAR HGB CONC 32.2 g/dl (32.0-36.5); MEAN CORPUSCULAR VOLUME 109.8 fl (80.0-96.0); MONO # 0.3 10^3/uL (0.0-0.8); NEUTROPHILS # 1.1 10^3/uL (1.5-8.5); NEUTROPHILS % 42.6 % (36.0-66.0); PLATELET COUNT, AUTOMATED 248 10^3/uL (150-450); RED BLOOD COUNT 1.64 10^6/uL (4.00-5.40); WHITE BLOOD COUNT 2.5 10^3/uL (4.0-10.0)
[2024-06-16 20:42] LABS: HEMOGLOBIN 5.8 g/dl (12.0-15.5)
[2024-06-16] MEDS: ONDANSETRON 4MG 2ML VIAL IV ONE (21:00)
[2024-06-16] MEDS: MORPHINE 4 MG/ML 1ML VIAL IV ONE (21:01)
[2024-06-16 21:11] LABS: ALBUMIN 2.9 G/DL (3.2-5.2); BILIRUBIN,TOTAL 0.3 MG/DL (0.3-1.2); CALCIUM LEVEL 9.1 MG/DL (8.3-10.6); CREATININE FOR GFR 1.58 MG/DL (0.55-1.30); GLOMERULAR FILTRATION RATE 33.5 (>32); MAGNESIUM LEVEL 1.8 MG/DL (1.8-2.4); POTASSIUM SERUM 4.7 MMOL/L (3.5-5.1); TOTAL PROTEIN 6.3 G/DL (5.7-8.2)
[2024-06-16 21:15] LABS: FREE T4 1.12 NG/DL (0.89-1.76); THYROID STIMULATING HORMONE 1.503 uIU/ML (0.55-4.78)
[2024-06-16 22:10] VITALS: BP 121/58; TEMP 97.3; O2SAT 98
[2024-06-16 22:25] VITALS: BP 150/60; TEMP 97.8; O2SAT 100
[2024-06-16 23:07] VITALS: BP 134/59; TEMP 98.4; O2SAT 100
[2024-06-16] MEDS ORDERED: SENN-186 PO (23:24)
[2024-06-16] MEDS ORDERED: CAPS1ADH TP (23:33)
[2024-06-16] MEDS ORDERED: MORPHINE 2 MG/ML 1ML VIAL IV PRN (23:35)
[2024-06-16] MEDS ORDERED: HOME MED LIST COMPLETE! XX SCH (23:40)
[2024-06-16] MEDS: LIDOCAINE 5% (LIDODERM) PATCH TD STA (23:50)
[2024-06-16] MEDS ORDERED: MAALOX 30 ML SUSP *UDC PO PRN (23:55)
[2024-06-16] MEDS ORDERED: MOM 30ML SUSPENSION UDC PO PRN (23:55)
[2024-06-17] VITALS (20 sets, daily range): BP systolic 107–169; BP diastolic 53–81; TEMP 96.9–98.3; O2SAT 93–100
[2024-06-17] MEDS: MORPHINE 2 MG/ML 1ML VIAL IV PRN (00:47)
[2024-06-17] MEDS ORDERED: FLUTICASONE PROP 0.05% NASAL SPRAY 16 GM (FLONASE) NARES PRN (01:00)
[2024-06-17] MEDS ORDERED: NITROGLYCERIN 0.4MG SUBL TABLET SL PRN (01:00)
[2024-06-17] MEDS ORDERED: ALBUTEROL 90 MCG/ACT 8GM HFA INHALER INH PRN (01:00)
[2024-06-17] MEDS: ACETAMINOPHEN 325 MG TAB PO PRN (01:15)
[2024-06-17] MEDS: traZODone 100 MG TAB PO ONE (02:01)
[2024-06-17] MEDS: LEVOTHYROXINE 50MCG TABLET (0.05MG) PO SCH (05:05)
[2024-06-17 05:28] LABS: HEMATOCRIT 22.8 % (36.0-47.0); HEMOGLOBIN 7.5 g/dl (12.0-15.5); MEAN CORPUSCULAR HEMOGLOBIN 32.5 pg (27.0-33.0); MEAN CORPUSCULAR HGB CONC 32.9 g/dl (32.0-36.5); MEAN CORPUSCULAR VOLUME 98.7 fl (80.0-96.0); PLATELET COUNT, AUTOMATED 204 10^3/uL (150-450); RED BLOOD COUNT 2.31 10^6/uL (4.00-5.40); WHITE BLOOD COUNT 2.2 10^3/uL (4.0-10.0)
[2024-06-17 06:08] LABS: CALCIUM LEVEL 8.9 MG/DL (8.3-10.6); CREATININE FOR GFR 1.49 MG/DL (0.55-1.30); GLOMERULAR FILTRATION RATE 35.8 (>32); MAGNESIUM LEVEL 1.9 MG/DL (1.8-2.4); POTASSIUM SERUM 5.1 MMOL/L (3.5-5.1)
[2024-06-17 06:12] LABS: FOLATE > 24.00 NG/ML (>5.4)
[2024-06-17 06:13] LABS: VITAMIN B12 LEVEL 692 PG/ML (211-911)
[2024-06-17] MEDS: MAGNESIUM OXIDE 400MG TAB (MAG-OX) PO SCH (08:58)
[2024-06-17] MEDS: PANTOPRAZOLE 40MG TAB (PROTONIX) PO SCH (08:58)
[2024-06-17] MEDS: CYCLOBENZAPRINE 5MG TABLET PO SCH (08:58)
[2024-06-17] MEDS: SUCRALFATE 1 GM TAB PO SCH (08:58)
[2024-06-17] MEDS: SENOKOT S TAB PO SCH (08:59)
[2024-06-17] MEDS: rOPINIRole 1MG TAB PO SCH (08:59)
[2024-06-17] MEDS: CALCITRIOL 0.25 MCG CAP (S0169) PO SCH (08:59)
[2024-06-17 12:44] LABS: HEMATOCRIT 28.7 % (36.0-47.0); HEMOGLOBIN 9.4 g/dl (12.0-15.5); MEAN CORPUSCULAR HEMOGLOBIN 31.3 pg (27.0-33.0); MEAN CORPUSCULAR HGB CONC 32.8 g/dl (32.0-36.5); MEAN CORPUSCULAR VOLUME 95.7 fl (80.0-96.0); PLATELET COUNT, AUTOMATED 247 10^3/uL (150-450); WHITE BLOOD COUNT 2.7 10^3/uL (4.0-10.0)
[2024-06-17 13:06] LABS: BACTERIA, URINE LARGE AMOUNT; HYALINE CAST, URINE NONE SEEN /lpf (0-1); RBC, URINE NONE SEEN /hpf (0-3); SQUAMOUS EPITHELIAL CELL URINE NONE SEEN /hpf (SMALL AMT); TRANSITIONAL EPI CELLS, URINE SMALL AMOUNT /hpf
[2024-06-17] MEDS: LIDOCAINE 5% (LIDODERM) PATCH TD SCH (21:23)
[2024-06-17] MEDS: METOPROLOL SUCC *XL* 25MG TAB (TopROL *XL*) PO SCH (21:23)
[2024-06-17] MEDS: QUEtiapine FUMARATE 12.5 MG HALF-TAB PO SCH (21:24)
[2024-06-17] MEDS: traZODone 100 MG TAB PO SCH (21:24)
[2024-06-18 04:30] VITALS: BP 134/60; TEMP 97.8; O2SAT 97
[2024-06-18 04:37] LABS: HEMATOCRIT 26.8 % (36.0-47.0); HEMOGLOBIN 8.8 g/dl (12.0-15.5); MEAN CORPUSCULAR HEMOGLOBIN 31.9 pg (27.0-33.0); MEAN CORPUSCULAR HGB CONC 32.8 g/dl (32.0-36.5); MEAN CORPUSCULAR VOLUME 97.1 fl (80.0-96.0); PLATELET COUNT, AUTOMATED 237 10^3/uL (150-450); RED BLOOD COUNT 2.76 10^6/uL (4.00-5.40); WHITE BLOOD COUNT 2.5 10^3/uL (4.0-10.0)
[2024-06-18 04:58] LABS: CALCIUM LEVEL 8.8 MG/DL (8.3-10.6); CREATININE FOR GFR 1.2 MG/DL (0.55-1.30); POTASSIUM SERUM 4.6 MMOL/L (3.5-5.1)
[2024-06-18 08:00] VITALS: BP 166/70; TEMP 97.4; O2SAT 96
[2024-06-18 16:00] VITALS: BP 154/81; TEMP 98.2; O2SAT 96
[2024-06-18 20:00] VITALS: BP 210/85; TEMP 97.5; O2SAT 97
[2024-06-18 22:55] VITALS: BP 147/65
[2024-06-19 04:08] VITALS: BP 163/74; TEMP 97.5; O2SAT 98
[2024-06-19 04:19] LABS: HEMATOCRIT 30.5 % (36.0-47.0); HEMOGLOBIN 10.1 g/dl (12.0-15.5); MEAN CORPUSCULAR HEMOGLOBIN 31.9 pg (27.0-33.0); MEAN CORPUSCULAR HGB CONC 33.1 g/dl (32.0-36.5); MEAN CORPUSCULAR VOLUME 96.2 fl (80.0-96.0); PLATELET COUNT, AUTOMATED 276 10^3/uL (150-450); RED BLOOD COUNT 3.17 10^6/uL (4.00-5.40); WHITE BLOOD COUNT 2.4 10^3/uL (4.0-10.0)
[2024-06-19 04:46] LABS: CALCIUM LEVEL 8.9 MG/DL (8.3-10.6); CREATININE FOR GFR 1.04 MG/DL (0.55-1.30); GLOMERULAR FILTRATION RATE 54.3 (>32); POTASSIUM SERUM 4.3 MMOL/L (3.5-5.1)
[2024-06-19 08:00] VITALS: BP 159/68; TEMP 97.5; O2SAT 96
[2024-06-19] MEDS: traMADol 50 MG TAB PO ONE (08:22)
[2024-06-19] MEDS: ACETAMINOPHEN 500 MG TAB PO ONE (08:23)
[2024-06-19] MEDS: ACETAMINOPHEN 500 MG TAB PO SCH (12:10)
[2024-06-19 16:00] VITALS: BP 165/70; TEMP 97.8; O2SAT 95
[2024-06-19 20:00] VITALS: BP 135/62; TEMP 97.5; O2SAT 97
[2024-06-19] MEDS: LIDOCAINE 5% (LIDODERM) PATCH TD ONE (21:33)
[2024-06-19 21:34] VITALS: BP 135/62
[2024-06-20 04:00] VITALS: BP 136/67; TEMP 97; O2SAT 97
[2024-06-20 04:43] LABS: HEMATOCRIT 31.6 % (36.0-47.0); HEMOGLOBIN 10.4 g/dl (12.0-15.5); MEAN CORPUSCULAR HEMOGLOBIN 31.7 pg (27.0-33.0); MEAN CORPUSCULAR HGB CONC 32.9 g/dl (32.0-36.5); MEAN CORPUSCULAR VOLUME 96.3 fl (80.0-96.0); PLATELET COUNT, AUTOMATED 277 10^3/uL (150-450); RED BLOOD COUNT 3.28 10^6/uL (4.00-5.40); WHITE BLOOD COUNT 2.1 10^3/uL (4.0-10.0)
[2024-06-20 05:07] LABS: CALCIUM LEVEL 9.1 MG/DL (8.3-10.6); CREATININE FOR GFR 1.02 MG/DL (0.55-1.30); GLOMERULAR FILTRATION RATE 55.5 (>32); POTASSIUM SERUM 4.3 MMOL/L (3.5-5.1)
[2024-06-20 08:22] VITALS: BP 150/67; TEMP 97.6; O2SAT 95
[2024-06-20] MEDS ORDERED: AMPICILLIN SOD/SULBACTAM SOD 1.5 GM in DEXTROSE 5% (D5W) ADV/MINI-BAG 50 ML IV SCH (08:30)
[2024-06-20] MEDS ORDERED: VANCOMYCIN/WATER FOR INJ 1,000 MG in IV 1 EA IV SCH (08:35)
[2024-06-20] MEDS: VANCOMYCIN 1,500 MG/300 ML IV BAG *LOAD IV ONE (09:32)
[2024-06-20] MEDS ORDERED: AMPICILLIN SOD/SULBACTAM SOD 3 GM in SODIUM CHLORIDE 0.9% 100ML ADD 100 ML IV SCH (12:00)
[2024-06-20] MEDS ORDERED: CEFD1CAP9 PO (12:19)
[2024-06-20] MEDS ORDERED: ZYVO1TAB PO (12:19)
[2024-06-20] MEDS: SODIUM CHLORIDE 0.9% INJ 10 ML SYR IV SCH (12:37)
[2024-06-20] MEDS ORDERED: VANCOMYCIN 750MG/150 ML IV BAG IV SCH (22:00)
== END 2024-06-20 13:26 | disposition home or self-care (01) | DRG 812 ==
LOC: M ED 19:16 → M ED INP 23:27 → M ICU 06-17 00:45
PROVIDERS: ADMIT Student in an Organized Health Care Education/Training Program; ATTEND Student in an Organized Health Care Education/Training Program
PROC: 30233N1 Transfusion of Nonautologous Red Blood Cells into Peripheral Vein, Percutaneous Approach (ICD-10-PCS; principal; 2024-06-16)
DX: D53.9 Nutritional anemia, unspecified (principal); I13.0 Hypertensive heart and chronic kidney disease with heart failure and stage 1 through stage 4 chronic kidney disease, or unspecified chronic kidney disease; I50.32 Chronic diastolic (congestive) heart failure; N17.9 Acute kidney failure, unspecified; F11.20 Opioid dependence, uncomplicated; N39.0 Urinary tract infection, site not specified; E11.22 Type 2 diabetes mellitus with diabetic chronic kidney disease; J45.909 Unspecified asthma, uncomplicated; N18.31 Chronic kidney disease, stage 3a; E03.9 Hypothyroidism, unspecified; G25.81 Restless legs syndrome; I49.5 Sick sinus syndrome; I25.10 Atherosclerotic heart disease of native coronary artery without angina pectoris; E78.5 Hyperlipidemia, unspecified; M79.7 Fibromyalgia; Z95.0 Presence of cardiac pacemaker; R29.6 Repeated falls; D70.9 Neutropenia, unspecified; R53.1 Weakness; G47.33 Obstructive sleep apnea (adult) (pediatric); G89.29 Other chronic pain; K21.9 Gastro-esophageal reflux disease without esophagitis; I48.91 Unspecified atrial fibrillation; N31.9 Neuromuscular dysfunction of bladder, unspecified; N13.9 Obstructive and reflux uropathy, unspecified; Z86.73 Personal history of transient ischemic attack (TIA), and cerebral infarction without residual deficits; D63.1 Anemia in chronic kidney disease; M54.59 Other low back pain; Z98.41 Cataract extraction status, right eye; Z98.42 Cataract extraction status, left eye; Z93.3 Colostomy status; Z88.8 Allergy status to other drugs, medicaments and biological substances; Z88.2 Allergy status to sulfonamides; Z88.7 Allergy status to serum and vaccine; Z79.899 Other long term (current) drug therapy

== ENCOUNTER → 2024-06-16 | Outpatient (CLI) | payer MEDICARE, BC ==
[~2024-06-16] MED LIST changes: +CYCL5TAB PO; -CYCL5TAB4 PO; -FLUC-1; +FLUC200T4; -LIDOCAINE 2% 100MG/5ML SDV (FOR ANES.) As Ordered ONE; -META-10 PO; +META1TAB22 PO; -PHENYLephrine 500MCG 5ML (100MCG/ML) SYRINGE As Ordered ONE; -ZYVO1TAB PO; -ePHEDrine SULFATE 25 MG/5 ML(5MG/ML) SYRINGE As Ordered ONE; -propofoL 200 MG/20 ML VIAL As Ordered ONE
[2024-06-16 15:48] LABS: HEMATOCRIT 21.5 % (36.0-47.0); MEAN CORPUSCULAR HEMOGLOBIN 35.3 pg (27.0-33.0); MEAN CORPUSCULAR HGB CONC 31.2 g/dl (32.0-36.5); MEAN CORPUSCULAR VOLUME 113.2 fl (80.0-96.0); PLATELET COUNT, AUTOMATED 315 10^3/uL (150-450)
[2024-06-16 16:07] LABS: HEMOGLOBIN 6.7 g/dl (12.0-15.5)
== END ==
LOC: M LAB 15:28
PROVIDERS: ATTEND Internal Medicine Hematology
DX: D53.9 Nutritional anemia, unspecified (principal)

== ENCOUNTER → 2024-06-25 | Outpatient (CLI) | payer MEDICARE, BC ==
[~2024-06-25] MED LIST changes: +CAPS1ADH TP; +SENN-186 PO; +ZYVO1TAB PO
[2024-06-25 12:35] LABS: HEMOGLOBIN 10.7 g/dl (12.0-15.5); MEAN CORPUSCULAR HEMOGLOBIN 31.7 pg (27.0-33.0); MEAN CORPUSCULAR HGB CONC 32.4 g/dl (32.0-36.5); MEAN CORPUSCULAR VOLUME 97.6 fl (80.0-96.0); PLATELET COUNT, AUTOMATED 287 10^3/uL (150-450); RED BLOOD COUNT 3.38 10^6/uL (4.00-5.40); WHITE BLOOD COUNT 3.3 10^3/uL (4.0-10.0)
== END ==
LOC: M LAB 11:33
PROVIDERS: ATTEND Internal Medicine Hematology
DX: D53.9 Nutritional anemia, unspecified (principal)

== ENCOUNTER → 2024-07-02 | Outpatient (CLI) | payer MEDICARE, BC ==
[~2024-07-02] MED LIST changes: -CYCL5TAB PO; +CYCL5TAB4 PO; +FLUC-1; -FLUC200T4; +META-10 PO; -META1TAB22 PO
[2024-07-02 16:46] LABS: HEMATOCRIT 28.3 % (36.0-47.0); HEMOGLOBIN 9.4 g/dl (12.0-15.5); MEAN CORPUSCULAR HEMOGLOBIN 32.1 pg (27.0-33.0); MEAN CORPUSCULAR HGB CONC 33.2 g/dl (32.0-36.5); MEAN CORPUSCULAR VOLUME 96.6 fl (80.0-96.0); PLATELET COUNT, AUTOMATED 165 10^3/uL (150-450); RED BLOOD COUNT 2.93 10^6/uL (4.00-5.40)
== END ==
LOC: M LAB 16:00
PROVIDERS: ATTEND Internal Medicine Hematology
DX: D53.9 Nutritional anemia, unspecified (principal)

== ENCOUNTER → 2024-07-09 | Outpatient (CLI) | payer MEDICARE, BC ==
[2024-07-09 15:56] LABS: HEMATOCRIT 26.8 % (36.0-47.0); HEMOGLOBIN 8.6 g/dl (12.0-15.5); MEAN CORPUSCULAR HEMOGLOBIN 31.5 pg (27.0-33.0); MEAN CORPUSCULAR HGB CONC 32.1 g/dl (32.0-36.5); MEAN CORPUSCULAR VOLUME 98.2 fl (80.0-96.0); PLATELET COUNT, AUTOMATED 158 10^3/uL (150-450); RED BLOOD COUNT 2.73 10^6/uL (4.00-5.40); WHITE BLOOD COUNT 2.7 10^3/uL (4.0-10.0)
== END ==
LOC: M LAB 15:20
PROVIDERS: ATTEND Internal Medicine Hematology
DX: D53.9 Nutritional anemia, unspecified (principal)

== ENCOUNTER → 2024-07-16 | Outpatient (CLI) | payer MEDICARE, BC ==
[2024-07-16 15:43] LABS: HEMATOCRIT 25.6 % (36.0-47.0); HEMOGLOBIN 8.4 g/dl (12.0-15.5); MEAN CORPUSCULAR HEMOGLOBIN 32.7 pg (27.0-33.0); MEAN CORPUSCULAR HGB CONC 32.8 g/dl (32.0-36.5); MEAN CORPUSCULAR VOLUME 99.6 fl (80.0-96.0); PLATELET COUNT, AUTOMATED 243 10^3/uL (150-450); RED BLOOD COUNT 2.57 10^6/uL (4.00-5.40); WHITE BLOOD COUNT 6.5 10^3/uL (4.0-10.0)
== END ==
LOC: M LAB 15:17
PROVIDERS: ATTEND Internal Medicine Hematology
DX: D53.9 Nutritional anemia, unspecified (principal)

== ENCOUNTER 2024-07-23 15:42 | Inpatient (IN) | payer MEDICARE, BC ==
[~2024-07-23] VITALS: Ht 165.1 cm; Wt 72.7 kg
[2024-07-23] MEDS ORDERED: SODIUM CHLORIDE 0.9% INJ 10 ML SYR IV PRN (16:20)
[2024-07-23 16:58] LABS: BASO % 0.4 % (0.0-1.0); EOS % 0.2 % (0.0-3.0); HEMATOCRIT 23.2 % (36.0-47.0); HEMOGLOBIN 7.4 g/dl (12.0-15.5); LYMPH # 1.7 10^3/uL (1.5-5.0); MEAN CORPUSCULAR HEMOGLOBIN 31.8 pg (27.0-33.0); MEAN CORPUSCULAR HGB CONC 31.9 g/dl (32.0-36.5); MEAN CORPUSCULAR VOLUME 99.6 fl (80.0-96.0); MONO # 0.4 10^3/uL (0.0-0.8); MONO % 9.6 % (2.0-8.0); NEUTROPHILS # 2.3 10^3/uL (1.5-8.5); NEUTROPHILS % 52.1 % (36.0-66.0); PLATELET COUNT, AUTOMATED 353 10^3/uL (150-450); RED BLOOD COUNT 2.33 10^6/uL (4.00-5.40); WHITE BLOOD COUNT 4.5 10^3/uL (4.0-10.0)
[2024-07-23] MEDS: ONDANSETRON 4MG 2ML VIAL IV ONE (17:06)
[2024-07-23] MEDS: MORPHINE 4 MG/ML 1ML VIAL IV PRN (17:07)
[2024-07-23 17:25] LABS: CALCIUM LEVEL 9.2 MG/DL (8.3-10.6); CREATININE FOR GFR 1.69 MG/DL (0.55-1.30); POTASSIUM SERUM 5.6 MMOL/L (3.5-5.1)
[2024-07-23] MEDS: NS 1,000 ML IV SCH ×2 (18:00→22:39)
[2024-07-23] MEDS: HYDROMORPHONE HCL 0.5 MG/ 0.5 ML SYRINGE IV PRN (18:32)
[2024-07-23 19:57] VITALS: BP 135/81; TEMP 98.3; O2SAT 94
[2024-07-23] MEDS ORDERED: B-12100010 PO (20:01)
[2024-07-23] MEDS ORDERED: HOME MED LIST COMPLETE! XX SCH (20:05)
[2024-07-23 20:15] VITALS: BP 113/51; TEMP 98.4
[2024-07-23 20:57] VITALS: BP 130/60; TEMP 98.1; O2SAT 94
[2024-07-23] MEDS ORDERED: MAGNESIUM OXIDE 400MG TAB (MAG-OX) PO SCH (21:00)
[2024-07-23] MEDS ORDERED: METOPROLOL SUCC *XL* 25MG TAB (TopROL *XL*) PO SCH (21:00)
[2024-07-23] MEDS ORDERED: ASCORBIC ACID 500 MG TAB PO SCH (21:00)
[2024-07-23] MEDS ORDERED: FLUTICASONE PROP 0.05% NASAL SPRAY 16 GM (FLONASE) NARES PRN (21:15)
[2024-07-23] MEDS ORDERED: NITROGLYCERIN 0.4MG SUBL TABLET SL PRN (21:15)
[2024-07-23] MEDS ORDERED: ALBUTEROL 90 MCG/ACT 8GM HFA INHALER INH PRN (21:15)
[2024-07-23] MEDS ORDERED: ACETAMINOPHEN 325 MG TAB PO PRN (21:15)
[2024-07-23] MEDS ORDERED: ONDANSETRON 4MG 2ML VIAL IV PRN (21:15)
[2024-07-23] MEDS ORDERED: PILL CUTTER 1 EACH XX PRN (21:40)
[2024-07-23 21:50] VITALS: BP 110/51; TEMP 98.2
[2024-07-23] MEDS: QUEtiapine FUMARATE 25 MG TAB PO SCH (22:25)
[2024-07-23] MEDS: PANTOPRAZOLE 40MG VIAL IV SCH (22:25)
[2024-07-23] MEDS: PREGABALIN 100 MG CAP (LYRICA) PO SCH (22:25)
[2024-07-23] MEDS: CYCLOBENZAPRINE 5MG TABLET PO SCH (22:26)
[2024-07-23] MEDS: traZODone 100 MG TAB PO SCH (22:26)
[2024-07-23] MEDS: cefTRIAXone SOD 1 GM in DEXTROSE 5% (D5W) ADV/MINI-BAG 50 ML IV SCH (22:35)
[2024-07-23] MEDS ORDERED: DEXTROSE 50% 50ML SYRINGE IV PRN (23:00)
[2024-07-23] MEDS ORDERED: GLUCAGON INJ 1MG VIAL SC PRN (23:00)
[2024-07-23] MEDS ORDERED: GLUCOSE 4 GM CHEW PO PRN (23:00)
[2024-07-24 00:05] VITALS: BP 138/61; TEMP 97.3; O2SAT 96
[2024-07-24] MEDS: rOPINIRole 1MG TAB PO SCH (00:09)
[2024-07-24] MEDS: HYDROmorphone 2 MG TAB PO PRN ×2 (00:10→09:48)
[2024-07-24 01:03] LABS: HEMOGLOBIN 7.5 g/dl (12.0-15.5)
[2024-07-24 01:10] LABS: PHOSPHORUS LEVEL 3.8 MG/DL (2.4-5.1)
[2024-07-24 03:14] VITALS: BP 130/70; TEMP 98.1; O2SAT 95
[2024-07-24 03:57] LABS: PROCALCITONIN 0.12 ng/ml
[2024-07-24 04:32] VITALS: BP 132/68; TEMP 97.6; O2SAT 96
[2024-07-24] MEDS: LEVOTHYROXINE 50MCG TABLET (0.05MG) PO SCH (06:00)
[2024-07-24] MEDS: INSULIN LISPRO (NovoLOG) PER UNIT SC SCH (07:30)
[2024-07-24 07:43] LABS: BASO % 0.4 % (0.0-1.0); EOS % 0.8 % (0.0-3.0); HEMATOCRIT 24.5 % (36.0-47.0); LYMPH # 1.7 10^3/uL (1.5-5.0); LYMPH % 62.6 % (24.0-44.0); MEAN CORPUSCULAR HEMOGLOBIN 31.9 pg (27.0-33.0); MEAN CORPUSCULAR HGB CONC 32.7 g/dl (32.0-36.5); MEAN CORPUSCULAR VOLUME 97.6 fl (80.0-96.0); MONO # 0.3 10^3/uL (0.0-0.8); MONO % 10.2 % (2.0-8.0); NEUTROPHILS % 25.2 % (36.0-66.0); RED BLOOD COUNT 2.51 10^6/uL (4.00-5.40); WHITE BLOOD COUNT 2.7 10^3/uL (4.0-10.0)
[2024-07-24 08:09] LABS: ALBUMIN 2.7 G/DL (3.2-5.2); ALKALINE PHOSPHATASE 68 U/L (35-104); ALT/SGPT 9 U/L (7.0-40); AST/SGOT 14 U/L (<34); BILIRUBIN,TOTAL 0.5 MG/DL (0.3-1.2); BLOOD UREA NITROGEN 34 MG/DL (9-23); CALCIUM LEVEL 8.7 MG/DL (8.3-10.6); CARBON DIOXIDE LEVEL 26 MMOL/L (20-31); CHLORIDE LEVEL 110 MMOL/L (98-107); CREATININE FOR GFR 1.58 MG/DL (0.55-1.30); GLOMERULAR FILTRATION RATE 33.5 (>32); GLUCOSE, FASTING 89 MG/DL (74-106); PHOSPHORUS LEVEL 3.9 MG/DL (2.4-5.1); POTASSIUM SERUM 5.3 MMOL/L (3.5-5.1); SODIUM LEVEL 141 MMOL/L (136-145); TOTAL PROTEIN 6.3 G/DL (5.7-8.2)
[2024-07-24 08:18] VITALS: BP 117/57; TEMP 98.2; O2SAT 99
[2024-07-24 08:26] LABS: NEUTROPHILS # 0.7 10^3/uL (1.5-8.5); PLATELET COUNT, AUTOMATED 252 10^3/uL (150-450)
[2024-07-24] MEDS ORDERED: FUROSEMIDE 40MG/4ML VIAL IV SCH (09:00)
[2024-07-24] MEDS ORDERED: SENNA 8.6 MG TAB (SENOKOT) PO SCH ×2 (09:00→12:54)
[2024-07-24] MEDS: CALCITRIOL 0.25 MCG CAP (S0169) PO SCH (09:25)
[2024-07-24] MEDS: CYANOCOBALAMIN 500 MCG TAB PO SCH (09:26)
[2024-07-24] MEDS: VANCOMYCIN 1,000MG/200 ML IV BAG IV ONE (09:29)
[2024-07-24] MEDS: MAGNESIUM OXIDE 400MG TAB (MAG-OX) PO SCH (09:29)
[2024-07-24] MEDS ORDERED: NALOXONE INJ 0.4MG/1ML VIAL IV PRN (11:15)
[2024-07-24 11:36] LABS: IRON (FE) 138 UG/DL (50-170); PERCENT SATURATION 69.3 % (13.2-45.0); TOTAL IRON BINDING CAPACITY 199 UG/DL (250-425)
[2024-07-24 11:38] LABS: FERRITIN 1025.7 NG/ML (7.3-270.7)
[2024-07-24 11:39] LABS: VITAMIN B12 LEVEL 698 PG/ML (211-911)
[2024-07-24 11:46] LABS: FOLATE > 24.00 NG/ML (>5.4)
[2024-07-24 12:00] VITALS: BP 115/62; TEMP 97.9; O2SAT 96
[2024-07-24] MEDS: oxyCODONE 20MG CR TAB PO SCH (12:54)
[2024-07-24] MEDS: VANCOMYCIN 750MG/150 ML IV BAG IV SCH (13:34)
[2024-07-24] MEDS ORDERED: MOM 30ML SUSPENSION UDC PO PRN (16:30)
[2024-07-24] MEDS ORDERED: DIFI200T PO (16:49)
[2024-07-24] MEDS: MOM 30ML SUSPENSION UDC PO ONE (17:03)
[2024-07-24 17:12] LABS: CREATININE FOR GFR 1.49 MG/DL (0.55-1.30); GLOMERULAR FILTRATION RATE 35.8 (>32); POTASSIUM SERUM 5.2 MMOL/L (3.5-5.1)
[2024-07-24 20:00] VITALS: BP 140/65; TEMP 98; O2SAT 97
[2024-07-24] MEDS: SENNA 8.6 MG TAB (SENOKOT) PO SCH (21:16)
[2024-07-24] MEDS: ASCORBIC ACID 500 MG TAB PO SCH (21:18)
[2024-07-24] MEDS: METOPROLOL SUCC *XL* 25MG TAB (TopROL *XL*) PO SCH (21:20)
[2024-07-25 04:10] VITALS: BP 141/63; TEMP 97.5; O2SAT 95
[2024-07-25 06:30] LABS: HEMATOCRIT 22.7 % (36.0-47.0); HEMOGLOBIN 7.2 g/dl (12.0-15.5); MEAN CORPUSCULAR HEMOGLOBIN 31.4 pg (27.0-33.0); MEAN CORPUSCULAR HGB CONC 31.7 g/dl (32.0-36.5); MEAN CORPUSCULAR VOLUME 99.1 fl (80.0-96.0); PLATELET COUNT, AUTOMATED 244 10^3/uL (150-450); RED BLOOD COUNT 2.29 10^6/uL (4.00-5.40); WHITE BLOOD COUNT 2.1 10^3/uL (4.0-10.0)
[2024-07-25 07:00] LABS: CALCIUM LEVEL 8.7 MG/DL (8.3-10.6); CREATININE FOR GFR 1.26 MG/DL (0.55-1.30); GLOMERULAR FILTRATION RATE 43.5 (>32); POTASSIUM SERUM 4.7 MMOL/L (3.5-5.1)
[2024-07-25 08:00] VITALS: TEMP 97.3; O2SAT 94
[2024-07-25] MEDS: MIRALAX *UNIT DOSE* 17GM PACKET PO SCH (08:09)
[2024-07-25] MEDS: VANCOMYCIN 1,000MG/200 ML IV BAG IV SCH (12:27)
[2024-07-25 15:18] VITALS: BP 107/63; TEMP 97.7; O2SAT 96
[2024-07-25 20:15] VITALS: BP 146/62; TEMP 97; O2SAT 96
[2024-07-26] VITALS: O2SAT 91
[2024-07-26] MEDS ORDERED: SODIUM CHLORIDE 0.9% INJ 10 ML SYR IV PRN (01:40)
[2024-07-26 04:00] VITALS: BP 130/60; TEMP 97.5; O2SAT 95
[2024-07-26 06:47] LABS: HEMATOCRIT 24.1 % (36.0-47.0); HEMOGLOBIN 7.7 g/dl (12.0-15.5); MEAN CORPUSCULAR HEMOGLOBIN 31.7 pg (27.0-33.0); MEAN CORPUSCULAR VOLUME 99.2 fl (80.0-96.0); PLATELET COUNT, AUTOMATED 256 10^3/uL (150-450); RED BLOOD COUNT 2.43 10^6/uL (4.00-5.40); WHITE BLOOD COUNT 2.2 10^3/uL (4.0-10.0)
[2024-07-26 07:24] LABS: CALCIUM LEVEL 8.7 MG/DL (8.3-10.6); CREATININE FOR GFR 1.08 MG/DL (0.55-1.30); POTASSIUM SERUM 4.5 MMOL/L (3.5-5.1)
[2024-07-26] MEDS: SODIUM CHLORIDE 0.9% INJ 10 ML SYR IV SCH (09:14)
[2024-07-26 12:00] VITALS: BP 129/64; TEMP 97.5; O2SAT 97
[2024-07-26] MEDS: CEFEPIME HCL 1 GM in DEXTROSE 5% (D5W) ADV/MINI-BAG 50 ML IV SCH (15:05)
[2024-07-26] MEDS: LevoFLOXacin 500 MG TABLET PO SCH (18:26)
[2024-07-26 20:00] VITALS: BP 127/53; TEMP 97.3; O2SAT 98
[2024-07-26] MEDS: AMOXICILLIN 875 MG TAB PO SCH (21:11)
[2024-07-27] VITALS (12 sets, daily range): BP systolic 114–166; BP diastolic 47–85; TEMP 97.3–98.2; O2SAT 95–100
[2024-07-27 07:38] LABS: HEMATOCRIT 21.5 % (36.0-47.0); MEAN CORPUSCULAR HEMOGLOBIN 31.3 pg (27.0-33.0); MEAN CORPUSCULAR HGB CONC 32.6 g/dl (32.0-36.5); PLATELET COUNT, AUTOMATED 274 10^3/uL (150-450); RED BLOOD COUNT 2.24 10^6/uL (4.00-5.40); WHITE BLOOD COUNT 1.9 10^3/uL (4.0-10.0)
[2024-07-27 08:32] LABS: CALCIUM LEVEL 8.9 MG/DL (8.3-10.6); CREATININE FOR GFR 1.06 MG/DL (0.55-1.30); GLOMERULAR FILTRATION RATE 53.1 (>32); POTASSIUM SERUM 4.4 MMOL/L (3.5-5.1)
[2024-07-27 10:34] LABS: BASO % 0.4 % (0.0-1.0); EOS # 0.1 10^3/uL (0.0-0.5); EOS % 2.8 % (0.0-3.0); LYMPH # 1.3 10^3/uL (1.5-5.0); MONO # 0.2 10^3/uL (0.0-0.8); MONO % 9.8 % (2.0-8.0); NEUTROPHILS % 34.2 % (36.0-66.0)
[2024-07-27 10:36] LABS: NEUTROPHILS # 0.8 10^3/uL (1.5-8.5)
[2024-07-27 10:41] LABS: PLATELET ESTIMATE NORMAL (NORMAL)
[2024-07-27] MEDS: oxyCODONE 5MG TAB PO SCH (21:24)
[2024-07-28] MEDS: NYSTATIN 100,000 UNITS/GM TOPICAL PWD 15GM TOP SCH (00:42)
[2024-07-28 03:45] VITALS: BP 143/65; TEMP 98.1; O2SAT 98
[2024-07-28 04:52] LABS: BASO % 0.5 % (0.0-1.0); EOS % 0.5 % (0.0-3.0); HEMATOCRIT 29.3 % (36.0-47.0); HEMOGLOBIN 9.8 g/dl (12.0-15.5); LYMPH # 1.1 10^3/uL (1.5-5.0); LYMPH % 50.2 % (24.0-44.0); MEAN CORPUSCULAR HEMOGLOBIN 31.2 pg (27.0-33.0); MEAN CORPUSCULAR HGB CONC 33.4 g/dl (32.0-36.5); MEAN CORPUSCULAR VOLUME 93.3 fl (80.0-96.0); MONO # 0.2 10^3/uL (0.0-0.8); NEUTROPHILS % 36.9 % (36.0-66.0); PLATELET COUNT, AUTOMATED 276 10^3/uL (150-450); RED BLOOD COUNT 3.14 10^6/uL (4.00-5.40); WHITE BLOOD COUNT 2.2 10^3/uL (4.0-10.0)
[2024-07-28 05:14] LABS: NEUTROPHILS # 0.8 10^3/uL (1.5-8.5)
[2024-07-28 05:16] LABS: CALCIUM LEVEL 9.1 MG/DL (8.3-10.6); CREATININE FOR GFR 1.02 MG/DL (0.55-1.30); GLOMERULAR FILTRATION RATE 55.5 (>32); POTASSIUM SERUM 4.5 MMOL/L (3.5-5.1)
[2024-07-28 12:00] VITALS: BP 121/74; TEMP 97; O2SAT 96
[2024-07-28 20:00] VITALS: BP 125/68; TEMP 98.8; O2SAT 94
[2024-07-28 20:46] VITALS: BP 125/86
[2024-07-29 04:00] VITALS: BP 118/49; TEMP 97.3; O2SAT 98
[2024-07-29 06:19] LABS: BASO % 0.4 % (0.0-1.0); EOS % 1.2 % (0.0-3.0); HEMATOCRIT 30.4 % (36.0-47.0); HEMOGLOBIN 9.9 g/dl (12.0-15.5); LYMPH # 1.5 10^3/uL (1.5-5.0); LYMPH % 58.1 % (24.0-44.0); MEAN CORPUSCULAR HEMOGLOBIN 30.9 pg (27.0-33.0); MEAN CORPUSCULAR HGB CONC 32.6 g/dl (32.0-36.5); MONO # 0.2 10^3/uL (0.0-0.8); MONO % 9.3 % (2.0-8.0); NEUTROPHILS % 30.6 % (36.0-66.0); PLATELET COUNT, AUTOMATED 273 10^3/uL (150-450); WHITE BLOOD COUNT 2.6 10^3/uL (4.0-10.0)
[2024-07-29 06:46] LABS: CALCIUM LEVEL 9.2 MG/DL (8.3-10.6); CREATININE FOR GFR 1.07 MG/DL (0.55-1.30); GLOMERULAR FILTRATION RATE 52.5 (>32); POTASSIUM SERUM 4.1 MMOL/L (3.5-5.1)
[2024-07-29 07:01] LABS: NEUTROPHILS # 0.8 10^3/uL (1.5-8.5)
[2024-07-29 07:28] VITALS: O2SAT 95
[2024-07-29] MEDS ORDERED: SENO8.6T5 PO (09:23)
[2024-07-29] MEDS ORDERED: MAGN400T2 PO (09:23)
[2024-07-29] MEDS ORDERED: COLA100C5 PO (09:23)
[2024-07-29] MEDS ORDERED: AMOX875T PO (09:23)
[2024-07-29] MEDS ORDERED: LEVO1TAB39 PO (09:23)
== END 2024-07-29 11:15 | disposition home or self-care (01) | DRG 699 ==
LOC: M ED 15:42 → M ED INP 22:46 → M PCU 23:55 → M MS4PR 07-24 11:18 → M MSPAV 07-25 15:20
PROVIDERS: ADMIT Student in an Organized Health Care Education/Training Program; ATTEND Internal Medicine
PROC: 30233N1 Transfusion of Nonautologous Red Blood Cells into Peripheral Vein, Percutaneous Approach (ICD-10-PCS; principal; 2024-07-23)
DX: T83.512A Infection and inflammatory reaction due to nephrostomy catheter, initial encounter (principal); N39.0 Urinary tract infection, site not specified; I13.0 Hypertensive heart and chronic kidney disease with heart failure and stage 1 through stage 4 chronic kidney disease, or unspecified chronic kidney disease; I50.32 Chronic diastolic (congestive) heart failure; N17.9 Acute kidney failure, unspecified; N20.2 Calculus of kidney with calculus of ureter; I48.91 Unspecified atrial fibrillation; M79.7 Fibromyalgia; J45.909 Unspecified asthma, uncomplicated; E11.22 Type 2 diabetes mellitus with diabetic chronic kidney disease; D63.8 Anemia in other chronic diseases classified elsewhere; N18.9 Chronic kidney disease, unspecified; E03.9 Hypothyroidism, unspecified; G25.81 Restless legs syndrome; G89.29 Other chronic pain; E87.5 Hyperkalemia; Z86.73 Personal history of transient ischemic attack (TIA), and cerebral infarction without residual deficits; Z88.7 Allergy status to serum and vaccine; Z88.8 Allergy status to other drugs, medicaments and biological substances; Z88.2 Allergy status to sulfonamides; Z98.41 Cataract extraction status, right eye; Z98.42 Cataract extraction status, left eye; Z95.0 Presence of cardiac pacemaker; Z93.2 Ileostomy status; Y84.6 Urinary catheterization as the cause of abnormal reaction of the patient, or of later complication, without mention of misadventure at the time of the procedure

== ENCOUNTER → 2024-07-30 | Outpatient (CLI) | payer MEDICARE, BC ==
[~2024-07-30] MED LIST changes: +AMOX875T PO; +B-12100010 PO; +DIFI200T PO; +MAGN400T2 PO; +SENO8.6T5 PO
[2024-07-30 17:33] LABS: BASO % 0.6 % (0.0-1.0); EOS % 0.9 % (0.0-3.0); HEMATOCRIT 32.9 % (36.0-47.0); HEMOGLOBIN 10.8 g/dl (12.0-15.5); LYMPH # 1.3 10^3/uL (1.5-5.0); LYMPH % 40.9 % (24.0-44.0); MEAN CORPUSCULAR HEMOGLOBIN 30.9 pg (27.0-33.0); MEAN CORPUSCULAR HGB CONC 32.8 g/dl (32.0-36.5); MEAN CORPUSCULAR VOLUME 94.3 fl (80.0-96.0); MONO # 0.3 10^3/uL (0.0-0.8); MONO % 9.4 % (2.0-8.0); NEUTROPHILS # 1.5 10^3/uL (1.5-8.5); NEUTROPHILS % 47.9 % (36.0-66.0); PLATELET COUNT, AUTOMATED 307 10^3/uL (150-450); RED BLOOD COUNT 3.49 10^6/uL (4.00-5.40); WHITE BLOOD COUNT 3.2 10^3/uL (4.0-10.0)
== END ==
LOC: M LAB 16:16
PROVIDERS: ATTEND Internal Medicine Hematology
DX: D53.9 Nutritional anemia, unspecified (principal)

== ENCOUNTER → 2024-08-06 | Outpatient (CLI) | payer MEDICARE, BC ==
[2024-08-06 15:31] LABS: BASO % 0.6 % (0.0-1.0); HEMATOCRIT 29.6 % (36.0-47.0); HEMOGLOBIN 9.4 g/dl (12.0-15.5); LYMPH # 1.5 10^3/uL (1.5-5.0); LYMPH % 47.3 % (24.0-44.0); MEAN CORPUSCULAR HEMOGLOBIN 30.8 pg (27.0-33.0); MEAN CORPUSCULAR HGB CONC 31.8 g/dl (32.0-36.5); MONO # 0.3 10^3/uL (0.0-0.8); MONO % 9.3 % (2.0-8.0); NEUTROPHILS # 1.3 10^3/uL (1.5-8.5); NEUTROPHILS % 41.2 % (36.0-66.0); PLATELET COUNT, AUTOMATED 253 10^3/uL (150-450); RED BLOOD COUNT 3.05 10^6/uL (4.00-5.40); WHITE BLOOD COUNT 3.1 10^3/uL (4.0-10.0)
== END ==
LOC: M LAB 14:44
PROVIDERS: ATTEND Internal Medicine Hematology
DX: D53.9 Nutritional anemia, unspecified (principal)

== ENCOUNTER → 2024-08-07 | Outpatient (CLI) | payer MEDICARE, BC ==
[2024-08-09 08:13] LABS: PROTEIN, TOTAL SO 7.2 g/dL (6.1-8.1)
[2024-08-09 12:21] LABS: FREE KAPPA LIGHT CHAINS SERUM 105.2 mg/L (3.3-19.4); FREE LAMBDA LIGHT CHAINS SERUM 51.6 mg/L (5.7-26.3); KAPPA/LAMBDA RATIO SERUM 2.04 (0.26-1.65)
[2024-08-10 06:53] LABS: ALBUMIN SO 3.8 g/dL (3.8-4.8); ALPHA 1 GLOBULINS SO 0.3 g/dL (0.2-0.3); ALPHA 2 GLOBULINS SO 0.7 g/dL (0.5-0.9); BETA 2 GLOBULIN SO 0.5 g/dL (0.2-0.5); BETA GLOBULIN SO 0.4 g/dL (0.4-0.6); GAMMA GLOBULINS SO 1.6 g/dL (0.8-1.7)
== END ==
LOC: M LAB 16:05
PROVIDERS: ATTEND Internal Medicine Hematology
DX: D72.819 Decreased white blood cell count, unspecified (principal)

== ENCOUNTER → 2024-08-07 | Outpatient (CLI) | payer MEDICARE, BC ==
[~2024-08-07] MED LIST changes: +CIPROFLOXACIN/D5W 400 MG/200 ML BAG As Ordered ONE; +ISOVUE-300 61% 100ML VIAL As Ordered ONE; +LIDOCAINE 1% MDV 20ML VIAL As Ordered ONE; +LIDOCAINE 2% 100MG/5ML SDV (FOR ANES.) As Ordered ONE; +MIDAZOLAM INJ 2MG/2ML VIAL As Ordered ONE; +NS (Normal Saline) 0.9% 1,000 ML IV SCH; +fentaNYL 100 MCG/2 ML INJECTION As Ordered ONE; +propofoL 200 MG/20 ML VIAL As Ordered ONE
[2024-08-07 09:40] VITALS: TEMP 97.3
[2024-08-07] MEDS: CIPROFLOXACIN 400 MG in IV 1 EA IV ONE (10:00)
[2024-08-07] MEDS: ACETAMINOPHEN 325 MG TAB PO PRN (11:31)
[2024-08-07 12:14] VITALS: BP 163/86; O2SAT 99
== END ==
LOC: M IRPRO 09:18
PROVIDERS: ATTEND Radiology Diagnostic Radiology
DX: N13.30 Unspecified hydronephrosis (principal)
CPT/HCPCS: 36415; 50435; 82668; 82746; 83521; 84155; 84165; C1729; G0463; J0744; J2250; J3010

== ENCOUNTER → 2024-08-14 | Outpatient (CLI) | payer MEDICARE, BC ==
[~2024-08-14] MED LIST changes: -CIPROFLOXACIN/D5W 400 MG/200 ML BAG As Ordered ONE; -ISOVUE-300 61% 100ML VIAL As Ordered ONE; -LIDOCAINE 1% MDV 20ML VIAL As Ordered ONE; -LIDOCAINE 2% 100MG/5ML SDV (FOR ANES.) As Ordered ONE; -MIDAZOLAM INJ 2MG/2ML VIAL As Ordered ONE; -NS (Normal Saline) 0.9% 1,000 ML IV SCH; -fentaNYL 100 MCG/2 ML INJECTION As Ordered ONE; -propofoL 200 MG/20 ML VIAL As Ordered ONE
[2024-08-14 14:16] LABS: BASO % 0.4 % (0.0-1.0); EOS % 1.7 % (0.0-3.0); HEMATOCRIT 26.3 % (36.0-47.0); HEMOGLOBIN 8.5 g/dl (12.0-15.5); LYMPH # 1.2 10^3/uL (1.5-5.0); LYMPH % 51.7 % (24.0-44.0); MEAN CORPUSCULAR HGB CONC 32.3 g/dl (32.0-36.5); MONO # 0.2 10^3/uL (0.0-0.8); MONO % 9.6 % (2.0-8.0); NEUTROPHILS % 36.2 % (36.0-66.0); PLATELET COUNT, AUTOMATED 255 10^3/uL (150-450); RED BLOOD COUNT 2.74 10^6/uL (4.00-5.40); WHITE BLOOD COUNT 2.3 10^3/uL (4.0-10.0)
[2024-08-14 14:32] LABS: ALBUMIN 3.2 G/DL (3.2-5.2); BILIRUBIN,TOTAL 0.3 MG/DL (0.3-1.2); CALCIUM LEVEL 9.3 MG/DL (8.3-10.6); CREATININE FOR GFR 1.39 MG/DL (0.55-1.30); GLOMERULAR FILTRATION RATE 38.8 (>32); TOTAL PROTEIN 7.3 G/DL (5.7-8.2)
[2024-08-14 14:33] LABS: FREE T4 0.98 NG/DL (0.89-1.76); THYROID STIMULATING HORMONE 3.225 uIU/ML (0.55-4.78)
[2024-08-14 14:49] LABS: NEUTROPHILS # 0.8 10^3/uL (1.5-8.5)
[2024-08-16 11:08] LABS: FREE KAPPA LIGHT CHAINS SERUM 107.6 mg/L (3.3-19.4); KAPPA/LAMBDA RATIO SERUM 1.89 (0.26-1.65)
[2024-08-16 13:13] LABS: ERYTHROPOIETIN 56.9 mIU/mL (2.6-18.5)
[2024-08-17 06:27] LABS: ALBUMIN SO 3.6 g/dL (3.8-4.8); ALPHA 1 GLOBULINS SO 0.3 g/dL (0.2-0.3); ALPHA 2 GLOBULINS SO 0.8 g/dL (0.5-0.9); BETA 2 GLOBULIN SO 0.5 g/dL (0.2-0.5); BETA GLOBULIN SO 0.3 g/dL (0.4-0.6); GAMMA GLOBULINS SO 1.5 g/dL (0.8-1.7)
== END ==
LOC: M LAB 13:17
PROVIDERS: ATTEND Internal Medicine Hematology
DX: D72.819 Decreased white blood cell count, unspecified (principal); D53.9 Nutritional anemia, unspecified

== ENCOUNTER → 2024-08-21 | Outpatient (CLI) | payer MEDICARE, BC ==
[2024-08-21 15:50] LABS: BASO % 0.3 % (0.0-1.0); EOS % 0.7 % (0.0-3.0); HEMATOCRIT 24.4 % (36.0-47.0); LYMPH # 1.5 10^3/uL (1.5-5.0); MEAN CORPUSCULAR HEMOGLOBIN 32.1 pg (27.0-33.0); MEAN CORPUSCULAR HGB CONC 32.8 g/dl (32.0-36.5); MONO # 0.3 10^3/uL (0.0-0.8); MONO % 9.8 % (2.0-8.0); NEUTROPHILS # 1.2 10^3/uL (1.5-8.5); NEUTROPHILS % 38.9 % (36.0-66.0); PLATELET COUNT, AUTOMATED 218 10^3/uL (150-450); RED BLOOD COUNT 2.49 10^6/uL (4.00-5.40); WHITE BLOOD COUNT 3.1 10^3/uL (4.0-10.0)
== END ==
LOC: M LAB 14:56
PROVIDERS: ATTEND Internal Medicine Hematology
DX: D53.9 Nutritional anemia, unspecified (principal)

== ENCOUNTER → 2024-08-28 | Outpatient (CLI) | payer MEDICARE, BC ==
[2024-08-28 16:12] LABS: BASO % 0.5 % (0.0-1.0); EOS % 1.1 % (0.0-3.0); HEMATOCRIT 23.7 % (36.0-47.0); HEMOGLOBIN 7.7 g/dl (12.0-15.5); LYMPH # 1.1 10^3/uL (1.5-5.0); LYMPH % 29.7 % (24.0-44.0); MEAN CORPUSCULAR HEMOGLOBIN 32.5 pg (27.0-33.0); MEAN CORPUSCULAR HGB CONC 32.5 g/dl (32.0-36.5); MONO # 0.4 10^3/uL (0.0-0.8); MONO % 9.9 % (2.0-8.0); NEUTROPHILS # 2.1 10^3/uL (1.5-8.5); NEUTROPHILS % 58.3 % (36.0-66.0); PLATELET COUNT, AUTOMATED 262 10^3/uL (150-450); RED BLOOD COUNT 2.37 10^6/uL (4.00-5.40); WHITE BLOOD COUNT 3.6 10^3/uL (4.0-10.0)
== END ==
LOC: M LAB 15:32
PROVIDERS: ATTEND Internal Medicine Hematology
DX: D53.9 Nutritional anemia, unspecified (principal)

== ENCOUNTER 2024-08-31 09:03 | Outpatient (CLI) | payer MEDICARE, BC ==
[~2024-08-31] VITALS: Ht 165.1 cm; Wt 72.7 kg
[2024-08-31] VITALS (7 sets, daily range): BP systolic 106–137; BP diastolic 52–71; TEMP 97.8–98.6; O2SAT 94–98
[2024-08-31] MEDS: SODIUM CHLORIDE 0.9% INJ 10 ML SYR IV PRN (16:14)
== END 2024-08-31 16:20 ==
LOC: M INFU 09:03
PROVIDERS: ATTEND Internal Medicine
DX: D64.9 Anemia, unspecified (principal); Z88.2 Allergy status to sulfonamides; Z88.7 Allergy status to serum and vaccine; Z88.8 Allergy status to other drugs, medicaments and biological substances; Z91.048 Other nonmedicinal substance allergy status
CPT/HCPCS: 36430; 36591; 86850; 86900; 86901; 86920; 96523; J1642; P9016

== ENCOUNTER → 2024-09-10 | Outpatient (CLI) | payer MEDICARE, BC ==
[2024-09-10 17:53] LABS: BASO % 0.2 % (0.0-1.0); EOS % 0.7 % (0.0-3.0); HEMATOCRIT 28.5 % (36.0-47.0); HEMOGLOBIN 9.3 g/dl (12.0-15.5); LYMPH # 1.5 10^3/uL (1.5-5.0); LYMPH % 35.9 % (24.0-44.0); MEAN CORPUSCULAR HEMOGLOBIN 31.8 pg (27.0-33.0); MEAN CORPUSCULAR HGB CONC 32.6 g/dl (32.0-36.5); MEAN CORPUSCULAR VOLUME 97.6 fl (80.0-96.0); MONO # 0.5 10^3/uL (0.0-0.8); MONO % 11.4 % (2.0-8.0); NEUTROPHILS # 2.1 10^3/uL (1.5-8.5); NEUTROPHILS % 50.8 % (36.0-66.0); PLATELET COUNT, AUTOMATED 283 10^3/uL (150-450); RED BLOOD COUNT 2.92 10^6/uL (4.00-5.40)
== END ==
LOC: M LAB 15:06
PROVIDERS: ATTEND Internal Medicine Hematology
DX: D53.9 Nutritional anemia, unspecified (principal)

== ENCOUNTER → 2024-09-20 | Outpatient (CLI) | payer MEDICARE, BC ==
[2024-09-20 17:01] LABS: BASO % 0.3 % (0.0-1.0); EOS % 1.2 % (0.0-3.0); HEMATOCRIT 28.2 % (36.0-47.0); HEMOGLOBIN 9.1 g/dl (12.0-15.5); LYMPH # 1.3 10^3/uL (1.5-5.0); LYMPH % 38.7 % (24.0-44.0); MEAN CORPUSCULAR HEMOGLOBIN 31.8 pg (27.0-33.0); MEAN CORPUSCULAR HGB CONC 32.3 g/dl (32.0-36.5); MEAN CORPUSCULAR VOLUME 98.6 fl (80.0-96.0); MONO # 0.3 10^3/uL (0.0-0.8); MONO % 9.2 % (2.0-8.0); NEUTROPHILS # 1.7 10^3/uL (1.5-8.5); NEUTROPHILS % 49.7 % (36.0-66.0); PLATELET COUNT, AUTOMATED 376 10^3/uL (150-450); RED BLOOD COUNT 2.86 10^6/uL (4.00-5.40); WHITE BLOOD COUNT 3.5 10^3/uL (4.0-10.0)
== END ==
LOC: M LAB 15:24
PROVIDERS: ATTEND Internal Medicine Hematology
DX: D53.9 Nutritional anemia, unspecified (principal)

== ENCOUNTER → 2024-09-20 | Outpatient (CLI) | payer MEDICARE, BC ==
[2024-09-20 17:04] LABS: BASO % 0.6 % (0.0-1.0); EOS # 0.1 10^3/uL (0.0-0.5); EOS % 1.4 % (0.0-3.0); LYMPH # 1.4 10^3/uL (1.5-5.0); LYMPH % 38.3 % (24.0-44.0); MEAN CORPUSCULAR HEMOGLOBIN 31.7 pg (27.0-33.0); MEAN CORPUSCULAR HGB CONC 32.1 g/dl (32.0-36.5); MEAN CORPUSCULAR VOLUME 98.6 fl (80.0-96.0); MONO # 0.4 10^3/uL (0.0-0.8); MONO % 10.1 % (2.0-8.0); NEUTROPHILS # 1.8 10^3/uL (1.5-8.5); NEUTROPHILS % 48.8 % (36.0-66.0); PLATELET COUNT, AUTOMATED 369 10^3/uL (150-450); RED BLOOD COUNT 2.84 10^6/uL (4.00-5.40); WHITE BLOOD COUNT 3.6 10^3/uL (4.0-10.0)
[2024-09-20 17:19] LABS: INR 0.97; PROTHROMBIN TIME 13.2 SECONDS (12.5-14.5)
[2024-09-20 17:28] LABS: ALBUMIN 3.3 G/DL (3.2-5.2); BILIRUBIN,TOTAL 0.3 MG/DL (0.3-1.2); CALCIUM LEVEL 8.8 MG/DL (8.3-10.6); CREATININE FOR GFR 1.63 MG/DL (0.55-1.30); GLOMERULAR FILTRATION RATE 32.3 (>32); MAGNESIUM LEVEL 1.8 MG/DL (1.8-2.4); POTASSIUM SERUM 5.3 MMOL/L (3.5-5.1); TOTAL PROTEIN 7.7 G/DL (5.7-8.2)
[2024-09-20 17:31] LABS: THYROID STIMULATING HORMONE 4.074 uIU/ML (0.55-4.78)
== END ==
LOC: M LAB 15:29
PROVIDERS: ATTEND Internal Medicine
DX: Z01.818 Encounter for other preprocedural examination (principal); D64.9 Anemia, unspecified; E11.21 Type 2 diabetes mellitus with diabetic nephropathy; N18.32 Chronic kidney disease, stage 3b; E03.9 Hypothyroidism, unspecified

== ENCOUNTER → 2024-09-27 | Outpatient (CLI) | payer MEDICARE, BC ==
[~2024-09-27] MED LIST changes: +ACETAMINOPHEN 325 MG TAB PO PRN; +CIPROFLOXACIN/D5W 400 MG/200 ML BAG As Ordered ONE; +DEXTROSE 50% 50ML SYRINGE IV PRN; +GLUCAGON INJ 1MG VIAL SC PRN; +GLUCOSE 4 GM CHEW PO PRN; +INSULIN LISPRO (NovoLOG) PER UNIT SC PRN; +ISOVUE-300 61% 100ML VIAL As Ordered ONE; +LIDOCAINE 1% MDV 20ML VIAL As Ordered ONE; +LIDOCAINE 1% SDV 5ML VIAL SC PRN; +MM S100C PO; +MORPHINE 2 MG/ML 1ML VIAL As Ordered ONE; +ONDANSETRON 4MG 2ML VIAL IV PRN; +PERCOCET 5MG/325MG TAB As Ordered ONE; +SENN8.6T28 PO
[2024-09-27 08:25] VITALS: TEMP 97.9
[2024-09-27] MEDS: NS (Normal Saline) 0.9% 1,000 ML IV SCH (09:16)
[2024-09-27] MEDS: MORPHINE 2 MG/ML 1ML VIAL IV PRN (11:47)
[2024-09-27] MEDS: PERCOCET 5MG/325MG TAB PO PRN (13:16)
[2024-09-27 13:30] VITALS: BP 90/56; O2SAT 96
== END ==
LOC: M IRPRO 08:12
PROVIDERS: ATTEND Student in an Organized Health Care Education/Training Program
DX: N13.30 Unspecified hydronephrosis (principal); D53.9 Nutritional anemia, unspecified
CPT/HCPCS: 36415; 38222; 50435; 80048; 85025; 85610; 88300; 88305; 88311; 88313; C2625; J0744; J1642; J2250; J2371; J3010; Q9967

== ENCOUNTER → 2024-09-27 | Outpatient (CLI) | payer MEDICARE, BC ==
[~2024-09-27] MED LIST changes: -ACETAMINOPHEN 325 MG TAB PO PRN; -CIPROFLOXACIN/D5W 400 MG/200 ML BAG As Ordered ONE; -DEXTROSE 50% 50ML SYRINGE IV PRN; -GLUCAGON INJ 1MG VIAL SC PRN; -GLUCOSE 4 GM CHEW PO PRN; -INSULIN LISPRO (NovoLOG) PER UNIT SC PRN; -ISOVUE-300 61% 100ML VIAL As Ordered ONE; +KETAMINE HCL 200MG/20ML VIAL As Ordered ONE; -LIDOCAINE 1% MDV 20ML VIAL As Ordered ONE; -LIDOCAINE 1% SDV 5ML VIAL SC PRN; +MIDAZOLAM INJ 2MG/2ML VIAL As Ordered ONE; -MM S100C PO; -MORPHINE 2 MG/ML 1ML VIAL As Ordered ONE; -ONDANSETRON 4MG 2ML VIAL IV PRN; -PERCOCET 5MG/325MG TAB As Ordered ONE; +PHENYLephrine 500MCG 5ML (100MCG/ML) SYRINGE As Ordered ONE; -SENN8.6T28 PO; +ePHEDrine SULFATE 25 MG/5 ML(5MG/ML) SYRINGE As Ordered ONE; +fentaNYL 100 MCG/2 ML INJECTION As Ordered ONE; +propofoL 200 MG/20 ML VIAL As Ordered ONE
[2024-09-27 08:50] LABS: BASO % 0.3 % (0.0-1.0); EOS % 0.9 % (0.0-3.0); HEMATOCRIT 23.3 % (36.0-47.0); HEMOGLOBIN 7.6 g/dl (12.0-15.5); LYMPH # 1.1 10^3/uL (1.5-5.0); LYMPH % 34.9 % (24.0-44.0); MEAN CORPUSCULAR HEMOGLOBIN 32.8 pg (27.0-33.0); MEAN CORPUSCULAR HGB CONC 32.6 g/dl (32.0-36.5); MEAN CORPUSCULAR VOLUME 100.4 fl (80.0-96.0); MONO # 0.4 10^3/uL (0.0-0.8); MONO % 12.8 % (2.0-8.0); NEUTROPHILS # 1.6 10^3/uL (1.5-8.5); NEUTROPHILS % 50.2 % (36.0-66.0); PLATELET COUNT, AUTOMATED 311 10^3/uL (150-450); RED BLOOD COUNT 2.32 10^6/uL (4.00-5.40); WHITE BLOOD COUNT 3.2 10^3/uL (4.0-10.0)
[2024-09-27 09:15] LABS: INR 1.03; PROTHROMBIN TIME 13.8 SECONDS (12.5-14.5)
[2024-09-27] MEDS: CIPROFLOXACIN 400 MG in IV 1 EA IV ONE (09:17)
[2024-09-27 09:25] LABS: CALCIUM LEVEL 9.4 MG/DL (8.3-10.6); CREATININE FOR GFR 1.75 MG/DL (0.55-1.30); GLOMERULAR FILTRATION RATE 29.8 (>32); POTASSIUM SERUM 5.3 MMOL/L (3.5-5.1)
== END ==
LOC: M IRPRO 08:13
PROVIDERS: ATTEND Internal Medicine Hematology
DX: D64.9 Anemia, unspecified (principal)

== ENCOUNTER → 2024-09-28 | Outpatient (REF) | payer MEDICARE, BC ==
[~2024-09-28] MED LIST changes: -KETAMINE HCL 200MG/20ML VIAL As Ordered ONE; -MIDAZOLAM INJ 2MG/2ML VIAL As Ordered ONE; -PHENYLephrine 500MCG 5ML (100MCG/ML) SYRINGE As Ordered ONE; -ePHEDrine SULFATE 25 MG/5 ML(5MG/ML) SYRINGE As Ordered ONE; -fentaNYL 100 MCG/2 ML INJECTION As Ordered ONE; -propofoL 200 MG/20 ML VIAL As Ordered ONE
== END ==
LOC: M LAB REF 12:24
PROVIDERS: ATTEND Internal Medicine
DX: T83.518A Infection and inflammatory reaction due to other urinary catheter, initial encounter (principal); N18.32 Chronic kidney disease, stage 3b

== ENCOUNTER 2024-10-02 09:35 | Inpatient (IN) | payer MEDICARE, BC ==
[2024-10-02] VITALS (45 sets, daily range): BP systolic 68–164; BP diastolic 33–77; TEMP 95.5–97.7; O2SAT 90–100
[~2024-10-02] VITALS: Ht 165.1 cm; Wt 75.3 kg
[~2024-10-02 09:35] MED LIST changes: +levETIRAcetam INJection 500 MG in DEXTROSE 5% (D5W) MINI-BAG PLU 100 ML IV SCH
[2024-10-02] MEDS: NS (Normal Saline) 0.9% 1,000 ML IV ONE ×2 (09:55→20:36)
[2024-10-02] MEDS ORDERED: SODIUM CHLORIDE 0.9% INJ 10 ML SYR IV PRN (10:05)
[2024-10-02] MEDS: LORazepam 2 MG/ML 1ML VIAL IV STA ×2 (10:10→14:56)
[2024-10-02 10:21] LABS: VENOUS BASE EXCESS -4.2 (-2.0-2.0); VENOUS HCO3 21.3 MMOL/L (23.0-27.0); VENOUS O2 SATURATION 98.5 % (60.0-80.0); VENOUS PARTIAL PRESSURE CO2 40.9 mmHg (38.0-50.0); VENOUS PARTIAL PRESSURE O2 136.4 mmHg (30.0-50.0); VENOUS PH 7.334 UNITS (7.330-7.430); VENOUS STANDARD HCO3 20.9 MMOL/L; VENOUS TOTAL CO2 22.5 MMOL/L (24.0-28.0)
[2024-10-02 10:38] LABS: BASO % 0.2 % (0.0-1.0); EOS % 0.5 % (0.0-3.0); LYMPH % 17.9 % (24.0-44.0); MEAN CORPUSCULAR HEMOGLOBIN 32.4 pg (27.0-33.0); MEAN CORPUSCULAR HGB CONC 31.6 g/dl (32.0-36.5); MEAN CORPUSCULAR VOLUME 102.7 fl (80.0-96.0); MONO # 0.6 10^3/uL (0.0-0.8); MONO % 10.5 % (2.0-8.0); NEUTROPHILS # 3.9 10^3/uL (1.5-8.5); NEUTROPHILS % 69.6 % (36.0-66.0); PLATELET COUNT, AUTOMATED 225 10^3/uL (150-450); RED BLOOD COUNT 1.82 10^6/uL (4.00-5.40); WHITE BLOOD COUNT 5.5 10^3/uL (4.0-10.0)
[2024-10-02 10:46] LABS: HEMATOCRIT 18.7 % (36.0-47.0); HEMOGLOBIN 5.9 g/dl (12.0-15.5)
[2024-10-02 10:49] LABS: INR 1.18; PARTIAL THROMBOPLASTIN TIME 37.5 SECONDS (24.8-34.2); PROTHROMBIN TIME 15.3 SECONDS (12.5-14.5)
[2024-10-02 10:51] LABS: ERYTHROCYTE SEDIMENTATION RATE 38 mm/hr (0-30)
[2024-10-02 11:03] LABS: ETHYL ALCOHOL (ETHANOL) < 0.003 % (0.000-0.010)
[2024-10-02 11:04] LABS: C REACTIVE PROTEIN QUANTITATIV 23.86 MG/DL (<1.0); CPK CREATINE PHOSPHOKINASE 596 U/L (34-145)
[2024-10-02 11:05] LABS: ALBUMIN 2.8 G/DL (3.2-5.2); ALKALINE PHOSPHATASE 80 U/L (35-104); ALT/SGPT 17 U/L (7.0-40); AST/SGOT 43 U/L (<34); BILIRUBIN,DIRECT 0.2 MG/DL (<0.4); BILIRUBIN,TOTAL 0.4 MG/DL (0.3-1.2); BLOOD UREA NITROGEN 93 MG/DL (9-23); CALCIUM LEVEL 8.8 MG/DL (8.3-10.6); CARBON DIOXIDE LEVEL 24 MMOL/L (20-31); CHLORIDE LEVEL 101 MMOL/L (98-107); CK-MB VALUE MASS 8.5 NG/ML (<3.6); GLUCOSE, FASTING 166 MG/DL (74-106); MAGNESIUM LEVEL 2.3 MG/DL (1.8-2.4); MB/CK RELATIVE INDEX 1.42 (< OR =4); POTASSIUM SERUM 5.4 MMOL/L (3.5-5.1); SALICYLATE LEVEL < 3.0 MG/DL (<30); SODIUM LEVEL 132 MMOL/L (136-145); TOTAL PROTEIN 6.9 G/DL (5.7-8.2)
[2024-10-02 11:06] LABS: THYROID STIMULATING HORMONE 1.976 uIU/ML (0.55-4.78)
[2024-10-02 11:07] LABS: FREE T4 0.96 NG/DL (0.89-1.76)
[2024-10-02] MEDS: cefTRIAXone SOD 2 GM in DEXTROSE 5% (D5W) ADV/MINI-BAG 50 ML IV ONE (11:07)
[2024-10-02] MEDS: levETIRAcetam INJection 500 MG in IV 1 EA IV ONE (11:12)
[2024-10-02 11:16] LABS: PROCALCITONIN 0.97 ng/ml
[2024-10-02 11:40] LABS: KETONE, URINE MANUAL REFLEX NEGATIVE (NEGATIVE); NITRITE, URINE MANUAL RFX OBSCURED (NEGATIVE); PROTEIN, URINE MANUAL REFLEX 3+ mg/dL (NEGATIVE); SP GRAVITY,URINE MANUAL REFLEX 1.015 (1.002-1.035); UROBILINOGEN, UA MANUAL REFLEX NORMAL (NORMAL)
[2024-10-02 11:47] LABS: KETONE, URINE AUTO RFX NEGATIVE (NEGATIVE); MUCUS, URINE RFX SMALL (NEGATIVE); NITRITE, URINE AUTO RFX NEGATIVE (NEGATIVE); RBC, URINE AUTO RFX 29 /HPF (0-3); SQUAM EPITHELIAL CELL UR AURFX 10 /HPF (0-6)
[2024-10-02 11:49] LABS: KETONE, URINE AUTO RFX NEGATIVE (NEGATIVE); LEUKOCYTE ESTERASE UR AUTO RFX 3+ (NEGATIVE); NITRITE, URINE AUTO RFX NEGATIVE (NEGATIVE); RBC, URINE AUTO RFX 57 /HPF (0-3); SQUAM EPITHELIAL CELL UR AURFX 19 /HPF (0-6); WBC, URINE AUTO RFX TNTC /HPF (0-3)
[2024-10-02] MEDS ORDERED: ALBUTEROL SULFATE 2.5MG/0.5ML INH NEB SOLN NEB PRN (11:55)
[2024-10-02 12:01] LABS: HYALINE CAST, URINE RFX NONE SEEN /lpf (0-1); RBC, URINE MAN REFLEX TNTC /hpf (0-3); SQUAMOUS EPITHELIAL URINE RFX NONE SEEN /hpf (SMALL AMT); WBC, URINE MAN RFX TNTC /hpf (0-3)
[2024-10-02 12:02] LABS: MICROSCOPIC EXAM RFX PERFORMED
[2024-10-02 12:28] LABS: CK-MB VALUE MASS 8.8 NG/ML (<3.6)
[2024-10-02 12:29] LABS: MB/CK RELATIVE INDEX 1.57 (< OR =4)
[2024-10-02] MEDS ORDERED: MM S100C PO (12:30)
[2024-10-02] MEDS ORDERED: SENN8.6T28 PO (12:30)
[2024-10-02] MEDS ORDERED: HOME MED LIST COMPLETE! XX SCH (12:35)
[2024-10-02 15:32] LABS: ALBUMIN 2.3 G/DL (3.2-5.2); BILIRUBIN,TOTAL 0.3 MG/DL (0.3-1.2); CALCIUM LEVEL 8.1 MG/DL (8.3-10.6); CREATININE FOR GFR 4.02 MG/DL (0.55-1.30); GLOMERULAR FILTRATION RATE 11.4 (>32); POTASSIUM SERUM 5.9 MMOL/L (3.5-5.1); TOTAL PROTEIN 6.2 G/DL (5.7-8.2)
[2024-10-02] MEDS: LR 1,000 ML IV SCH (16:01)
[2024-10-02] MEDS: PANTOPRAZOLE 40MG VIAL IV SCH (16:01)
[2024-10-02] MEDS: MEROPENEM INJ 500 MG in IV 1 EA IV SCH (16:01)
[2024-10-02] MEDS: HumuLIN R (REGULAR) INSULIN (NovoLIN R) **100U/ML** PER UNIT IV STA (16:02)
[2024-10-02] MEDS: PATIROMER SORBITEX CALCIUM 8.4 GM POWDER PACKET (VELTASSA) PO ONE (16:02)
[2024-10-02] MEDS: DEXTROSE 50% 50ML SYRINGE IV STA (16:02)
[2024-10-02] MEDS: ACETAMINOPHEN 325 MG TAB PO PRN (17:07)
[2024-10-02] MEDS: VANCOMYCIN HCL 1,250 MG, VIAL MATE ADAPTER 1 EACH in NS 250 ML IV ONE (18:04)
[2024-10-02] MEDS: LR 1,000 ML IV ONE (18:04)
[2024-10-02 20:25] LABS: MEAN CORPUSCULAR HEMOGLOBIN 31.8 pg (27.0-33.0); MEAN CORPUSCULAR HGB CONC 32.6 g/dl (32.0-36.5); MEAN CORPUSCULAR VOLUME 97.5 fl (80.0-96.0); PLATELET COUNT, AUTOMATED 183 10^3/uL (150-450); RED BLOOD COUNT 1.98 10^6/uL (4.00-5.40); WHITE BLOOD COUNT 4.3 10^3/uL (4.0-10.0)
[2024-10-02 20:29] LABS: HEMATOCRIT 19.3 % (36.0-47.0); HEMOGLOBIN 6.3 g/dl (12.0-15.5)
[2024-10-02] MEDS: SENOKOT S TAB PO SCH (20:48)
[2024-10-02] MEDS: HEPARIN SOD (PORCINE) 5000UNITS/ML 1ML VIAL/SYRINGE SC SCH (20:48)
[2024-10-02] MEDS: LIDOCAINE 5% (LIDODERM) PATCH TD SCH (20:48)
[2024-10-02 20:57] LABS: CALCIUM LEVEL 7.6 MG/DL (8.3-10.6); CREATININE FOR GFR 3.41 MG/DL (0.55-1.30); GLOMERULAR FILTRATION RATE 13.8 (>32); POTASSIUM SERUM 5.3 MMOL/L (3.5-5.1)
[2024-10-02] MEDS ORDERED: levETIRAcetam INJection 500 MG in IV 1 EA IV SCH (21:00)
[2024-10-03] VITALS (18 sets, daily range): BP systolic 104–158; BP diastolic 40–88; TEMP 96.8–98.2; O2SAT 93–100
[2024-10-03] MEDS ORDERED: DEXTROSE 50% 50ML SYRINGE IV STA (00:37)
[2024-10-03] MEDS ORDERED: HumuLIN R (REGULAR) INSULIN (NovoLIN R) **100U/ML** PER UNIT IV STA (00:37)
[2024-10-03] MEDS ORDERED: CALCIUM GLUCONATE 1,000 MG in DEXTROSE 5% (D5W) MINI-BAG PLU 100 ML IV ONE (00:40)
[2024-10-03] MEDS ORDERED: SOD POLYSTYRENE SULFONATE SUSP 15GM 60ML UD PO ONE (00:40)
[2024-10-03] MEDS: oxyCODONE 5MG TAB PO ONE ×2 (00:58→05:21)
[2024-10-03] MEDS ORDERED: LORazepam 2 MG/ML 1ML VIAL IV PRN (01:05)
[2024-10-03] MEDS: ACETAMINOPHEN *IV* 1,000 MG in IV 1 EA IV ONE (04:17)
[2024-10-03 04:56] LABS: HEMATOCRIT 26.9 % (36.0-47.0); MEAN CORPUSCULAR HEMOGLOBIN 31.4 pg (27.0-33.0); MEAN CORPUSCULAR HGB CONC 33.5 g/dl (32.0-36.5); MEAN CORPUSCULAR VOLUME 93.7 fl (80.0-96.0); PLATELET COUNT, AUTOMATED 215 10^3/uL (150-450); RED BLOOD COUNT 2.87 10^6/uL (4.00-5.40); WHITE BLOOD COUNT 4.7 10^3/uL (4.0-10.0)
[2024-10-03 05:24] LABS: ALBUMIN 2.3 G/DL (3.2-5.2); BILIRUBIN,TOTAL 1.3 MG/DL (0.3-1.2); CALCIUM LEVEL 8.1 MG/DL (8.3-10.6); CREATININE FOR GFR 2.54 MG/DL (0.55-1.30); GLOMERULAR FILTRATION RATE 19.4 (>32); POTASSIUM SERUM 5.7 MMOL/L (3.5-5.1); TOTAL PROTEIN 5.9 G/DL (5.7-8.2)
[2024-10-03] MEDS ORDERED: PATIROMER SORBITEX CALCIUM 8.4 GM POWDER PACKET (VELTASSA) PO ONE (05:50)
[2024-10-03] MEDS: SOD POLYSTYRENE SULFONATE SUSP 15GM 60ML UD PO ONE (06:04)
[2024-10-03] MEDS: DEXTROSE 50% 50ML SYRINGE IV STA ×2 (06:05→14:53)
[2024-10-03] MEDS: HumuLIN R (REGULAR) INSULIN (NovoLIN R) **100U/ML** PER UNIT IV STA ×2 (06:05→14:54)
[2024-10-03] MEDS: NS 0.45% 1,000 ML IV SCH (08:09)
[2024-10-03] MEDS ORDERED: SODIUM CHLORIDE 0.9% INJ 10 ML SYR IV SCH (09:00)
[2024-10-03] MEDS: MIRALAX *UNIT DOSE* 17GM PACKET PO SCH (09:00)
[2024-10-03] MEDS ORDERED: cefTRIAXone SOD 1 GM in DEXTROSE 5% (D5W) ADV/MINI-BAG 50 ML IV SCH (09:00)
[2024-10-03] MEDS: CALCITRIOL 0.25 MCG CAP (S0169) PO SCH (09:10)
[2024-10-03] MEDS: CYCLOBENZAPRINE 5MG TABLET PO SCH (09:10)
[2024-10-03] MEDS: CYANOCOBALAMIN 500 MCG TAB PO SCH (09:10)
[2024-10-03] MEDS: LEVOTHYROXINE 50MCG TABLET (0.05MG) PO SCH (09:11)
[2024-10-03] MEDS: PREGABALIN 100 MG CAP (LYRICA) PO SCH (09:11)
[2024-10-03] MEDS: DOCUSATE SODIUM 100MG CAPSULE PO SCH (09:11)
[2024-10-03] MEDS: levETIRAcetam INJection 500 MG in DEXTROSE 5% (D5W) MINI-BAG PLU 100 ML IV SCH (09:11)
[2024-10-03] MEDS: oxyCODONE 5MG TAB PO PRN (09:13)
[2024-10-03] MEDS: MEROPENEM INJ 500 MG in IV 1 EA IV SCH (11:22)
[2024-10-03] MEDS: VANCOMYCIN HCL 750 MG, VIAL MATE ADAPTER 1 EACH in NS 250 ML IV SCH (11:53)
[2024-10-03 13:51] LABS: CALCIUM LEVEL 8.2 MG/DL (8.3-10.6); CREATININE FOR GFR 2.04 MG/DL (0.55-1.30); GLOMERULAR FILTRATION RATE 24.9 (>32); POTASSIUM SERUM 5.6 MMOL/L (3.5-5.1)
[2024-10-03] MEDS: HYDROmorphone 2 MG TAB PO PRN (14:10)
[2024-10-03] MEDS: ALBUTEROL SULFATE 2.5MG/0.5ML INH NEB SOLN NEB ONE (15:37)
[2024-10-03] MEDS: rOPINIRole 1MG TAB PO SCH (15:48)
[2024-10-03] MEDS ORDERED: GLUCAGON INJ 1MG VIAL SC PRN (16:20)
[2024-10-03] MEDS ORDERED: GLUCOSE 4 GM CHEW PO PRN (16:20)
[2024-10-03] MEDS ORDERED: DEXTROSE 50% 50ML SYRINGE IV PRN (16:20)
[2024-10-03] MEDS: INSULIN LISPRO (NovoLOG) PER UNIT SC SCH ×2 (17:30→20:53)
[2024-10-03] MEDS ORDERED: VANCOMYCIN HCL 1,000 MG, VIAL MATE ADAPTER 1 EACH in NS 250 ML IV SCH (18:00)
[2024-10-03] MEDS ORDERED: PERCOCET 5MG/325MG TAB PO PRN (19:15)
[2024-10-03 19:59] LABS: CALCIUM LEVEL 8.1 MG/DL (8.3-10.6); CREATININE FOR GFR 1.73 MG/DL (0.55-1.30); GLOMERULAR FILTRATION RATE 30.2 (>32)
[2024-10-03] MEDS: QUEtiapine FUMARATE 25 MG TAB PO SCH (20:52)
[2024-10-03] MEDS: levETIRAcetam 250MG TABLET (KEPPRA) PO SCH (20:52)
[2024-10-04 04:40] VITALS: BP 150/67; TEMP 97; O2SAT 97
[2024-10-04] MEDS: PERCOCET 5MG/325MG TAB PO PRN (04:46)
[2024-10-04 04:50] LABS: HEMATOCRIT 26.4 % (36.0-47.0); HEMOGLOBIN 8.9 g/dl (12.0-15.5); MEAN CORPUSCULAR HEMOGLOBIN 31.9 pg (27.0-33.0); MEAN CORPUSCULAR HGB CONC 33.7 g/dl (32.0-36.5); MEAN CORPUSCULAR VOLUME 94.6 fl (80.0-96.0); PLATELET COUNT, AUTOMATED 228 10^3/uL (150-450); RED BLOOD COUNT 2.79 10^6/uL (4.00-5.40); WHITE BLOOD COUNT 2.3 10^3/uL (4.0-10.0)
[2024-10-04 05:23] LABS: HEMOGLOBIN A1c 5.7 % (4.0-6.0)
[2024-10-04 05:25] LABS: VANCOMYCIN RANDOM 14.2 UG/ML
[2024-10-04 05:27] LABS: C REACTIVE PROTEIN QUANTITATIV 20.74 MG/DL (<1.0)
[2024-10-04 05:34] LABS: PROCALCITONIN 0.54 ng/ml
[2024-10-04 05:41] LABS: ALBUMIN 2.2 G/DL (3.2-5.2); BILIRUBIN,TOTAL 0.6 MG/DL (0.3-1.2); CALCIUM LEVEL 8.4 MG/DL (8.3-10.6); CREATININE FOR GFR 1.4 MG/DL (0.55-1.30); GLOMERULAR FILTRATION RATE 38.5 (>32); POTASSIUM SERUM 5.2 MMOL/L (3.5-5.1)
[2024-10-04 07:45] LABS: MAGNESIUM LEVEL 1.8 MG/DL (1.8-2.4)
[2024-10-04 08:00] VITALS: BP 163/76; TEMP 97; O2SAT 97
[2024-10-04] MEDS: VANCOMYCIN HCL 1,000 MG, VIAL MATE ADAPTER 1 EACH in NS 250 ML IV SCH (08:51)
[2024-10-04 12:00] VITALS: BP 172/70; TEMP 98; O2SAT 98
[2024-10-04 12:46] LABS: CALCIUM LEVEL 8.7 MG/DL (8.3-10.6); CREATININE FOR GFR 1.24 MG/DL (0.55-1.30); GLOMERULAR FILTRATION RATE 44.3 (>32); POTASSIUM SERUM 5.1 MMOL/L (3.5-5.1)
[2024-10-04 19:23] VITALS: BP 178/75; TEMP 97.5; O2SAT 96
[2024-10-04 20:00] VITALS: BP 164/74; O2SAT 96
[2024-10-05] MEDS: MEROPENEM INJ 1 GM in IV 1 EA IV SCH (00:01)
[2024-10-05 00:04] VITALS: BP 162/74; TEMP 97.8; O2SAT 96
[2024-10-05 04:00] VITALS: BP 154/56; TEMP 97.4; O2SAT 95
[2024-10-05 04:32] LABS: HEMATOCRIT 28.2 % (36.0-47.0); HEMOGLOBIN 9.3 g/dl (12.0-15.5); MEAN CORPUSCULAR HEMOGLOBIN 31.6 pg (27.0-33.0); MEAN CORPUSCULAR VOLUME 95.9 fl (80.0-96.0); PLATELET COUNT, AUTOMATED 238 10^3/uL (150-450); RED BLOOD COUNT 2.94 10^6/uL (4.00-5.40); WHITE BLOOD COUNT 2.2 10^3/uL (4.0-10.0)
[2024-10-05 05:04] LABS: ALBUMIN 2.3 G/DL (3.2-5.2); BILIRUBIN,TOTAL 0.7 MG/DL (0.3-1.2); CALCIUM LEVEL 8.5 MG/DL (8.3-10.6); CREATININE FOR GFR 1.07 MG/DL (0.55-1.30); GLOMERULAR FILTRATION RATE 52.5 (>32); POTASSIUM SERUM 4.8 MMOL/L (3.5-5.1); TOTAL PROTEIN 6.2 G/DL (5.7-8.2)
[2024-10-05 08:00] VITALS: BP 154/60; TEMP 98.7; O2SAT 96
[2024-10-05 12:00] VITALS: BP 164/74; TEMP 98.7; O2SAT 97
[2024-10-05] MEDS: DAPTOmycin 750 MG in NS 50 ML IV SCH (14:41)
[2024-10-05 16:00] VITALS: BP 162/74; TEMP 97.9; O2SAT 97
[2024-10-05 20:00] VITALS: BP 158/74; TEMP 97.6; O2SAT 95
[2024-10-05] MEDS: ONDANSETRON 4MG 2ML VIAL IV PRN (21:33)
[2024-10-05] MEDS: PINK BISMUTH SUSP 524MG/30ML ORAL SYRINGE PO ONE (21:34)
[2024-10-06 03:45] VITALS: BP 148/69; TEMP 97.8; O2SAT 99
[2024-10-06 05:36] VITALS: BP 167/70; TEMP 97.6; O2SAT 93
[2024-10-06 05:54] LABS: BASO % 0.5 % (0.0-1.0); EOS # 0.1 10^3/uL (0.0-0.5); EOS % 3.7 % (0.0-3.0); HEMATOCRIT 28.5 % (36.0-47.0); HEMOGLOBIN 9.3 g/dl (12.0-15.5); LYMPH # 1.1 10^3/uL (1.5-5.0); LYMPH % 56.7 % (24.0-44.0); MEAN CORPUSCULAR HEMOGLOBIN 31.3 pg (27.0-33.0); MEAN CORPUSCULAR HGB CONC 32.6 g/dl (32.0-36.5); MONO # 0.2 10^3/uL (0.0-0.8); MONO % 8.6 % (2.0-8.0); NEUTROPHILS % 29.4 % (36.0-66.0); PLATELET COUNT, AUTOMATED 248 10^3/uL (150-450); RED BLOOD COUNT 2.97 10^6/uL (4.00-5.40); WHITE BLOOD COUNT 1.9 10^3/uL (4.0-10.0)
[2024-10-06 06:17] LABS: NEUTROPHILS # 0.6 10^3/uL (1.5-8.5)
[2024-10-06 06:34] LABS: ALBUMIN 2.2 G/DL (3.2-5.2); ALKALINE PHOSPHATASE 75 U/L (35-104); ALT/SGPT 14 U/L (7.0-40); AST/SGOT 24 U/L (<34); BILIRUBIN,TOTAL 0.4 MG/DL (0.3-1.2); BLOOD UREA NITROGEN 20 MG/DL (9-23); CALCIUM LEVEL 8.5 MG/DL (8.3-10.6); CARBON DIOXIDE LEVEL 25 MMOL/L (20-31); CHLORIDE LEVEL 111 MMOL/L (98-107); CREATININE FOR GFR 0.95 MG/DL (0.55-1.30); GLOMERULAR FILTRATION RATE > 60.0 (>32); GLUCOSE, FASTING 88 MG/DL (74-106); POTASSIUM SERUM 4.8 MMOL/L (3.5-5.1); SODIUM LEVEL 144 MMOL/L (136-145)
[2024-10-06 08:00] VITALS: BP 157/70; TEMP 98; O2SAT 94
[2024-10-06 16:07] VITALS: BP 168/72; TEMP 97.9; O2SAT 97
[2024-10-06 20:43] VITALS: BP 156/71; TEMP 97.6; O2SAT 96
[2024-10-06 22:15] VITALS: BP 144/59; TEMP 97.5; O2SAT 95
[2024-10-07 04:05] VITALS: BP 146/57; TEMP 97.5; O2SAT 93
[2024-10-07 09:53] LABS: BASO % 0.4 % (0.0-1.0); EOS # 0.1 10^3/uL (0.0-0.5); EOS % 4.4 % (0.0-3.0); HEMATOCRIT 29.2 % (36.0-47.0); HEMOGLOBIN 9.4 g/dl (12.0-15.5); LYMPH % 44.1 % (24.0-44.0); MEAN CORPUSCULAR HEMOGLOBIN 31.1 pg (27.0-33.0); MEAN CORPUSCULAR HGB CONC 32.2 g/dl (32.0-36.5); MEAN CORPUSCULAR VOLUME 96.7 fl (80.0-96.0); MONO # 0.2 10^3/uL (0.0-0.8); MONO % 9.6 % (2.0-8.0); NEUTROPHILS % 40.6 % (36.0-66.0); PLATELET COUNT, AUTOMATED 241 10^3/uL (150-450); RED BLOOD COUNT 3.02 10^6/uL (4.00-5.40); WHITE BLOOD COUNT 2.3 10^3/uL (4.0-10.0)
[2024-10-07 09:56] LABS: NEUTROPHILS # 0.9 10^3/uL (1.5-8.5)
[2024-10-07 10:19] LABS: ALBUMIN 2.4 G/DL (3.2-5.2); ALKALINE PHOSPHATASE 76 U/L (35-104); ALT/SGPT 11 U/L (7.0-40); AST/SGOT 11 U/L (<34); BILIRUBIN,TOTAL 0.4 MG/DL (0.3-1.2); BLOOD UREA NITROGEN 16 MG/DL (9-23); CALCIUM LEVEL 8.6 MG/DL (8.3-10.6); CARBON DIOXIDE LEVEL 25 MMOL/L (20-31); CHLORIDE LEVEL 112 MMOL/L (98-107); CREATININE FOR GFR 0.93 MG/DL (0.55-1.30); GLOMERULAR FILTRATION RATE > 60.0 (>32); GLUCOSE, FASTING 121 MG/DL (74-106); POTASSIUM SERUM 3.8 MMOL/L (3.5-5.1); SODIUM LEVEL 145 MMOL/L (136-145); TOTAL PROTEIN 6.3 G/DL (5.7-8.2)
[2024-10-07 12:00] VITALS: BP 149/71; TEMP 97.3; O2SAT 96
[2024-10-07 20:00] VITALS: BP 141/71; TEMP 97.5; O2SAT 95
[2024-10-07] MEDS ORDERED: PILL CUTTER 1 EACH XX ONE (21:39)
[2024-10-08] VITALS (10 sets, daily range): BP systolic 120–176; BP diastolic 56–98; TEMP 96.6–97.7; O2SAT 94–99
[2024-10-08 06:00] LABS: BASO % 0.5 % (0.0-1.0); EOS # 0.1 10^3/uL (0.0-0.5); EOS % 4.2 % (0.0-3.0); HEMATOCRIT 28.9 % (36.0-47.0); HEMOGLOBIN 9.5 g/dl (12.0-15.5); LYMPH # 1.3 10^3/uL (1.5-5.0); LYMPH % 61.1 % (24.0-44.0); MEAN CORPUSCULAR HEMOGLOBIN 31.5 pg (27.0-33.0); MEAN CORPUSCULAR HGB CONC 32.9 g/dl (32.0-36.5); MEAN CORPUSCULAR VOLUME 95.7 fl (80.0-96.0); MONO # 0.2 10^3/uL (0.0-0.8); MONO % 7.4 % (2.0-8.0); NEUTROPHILS % 25.9 % (36.0-66.0); PLATELET COUNT, AUTOMATED 248 10^3/uL (150-450); RED BLOOD COUNT 3.02 10^6/uL (4.00-5.40); WHITE BLOOD COUNT 2.2 10^3/uL (4.0-10.0)
[2024-10-08 06:26] LABS: NEUTROPHILS # 0.6 10^3/uL (1.5-8.5)
[2024-10-08] MEDS ORDERED: LIDOCAINE 2% 100MG/5ML SDV (FOR ANES.) As Ordered ONE (14:03)
[2024-10-08] MEDS ORDERED: propofoL 200 MG/20 ML VIAL As Ordered ONE (14:04)
[2024-10-08] MEDS ORDERED: ONDANSETRON 4MG 2ML VIAL As Ordered ONE (14:04)
[2024-10-08] MEDS ORDERED: fentaNYL 100 MCG/2 ML INJECTION As Ordered ONE (14:08)
[2024-10-08] MEDS ORDERED: MIDAZOLAM INJ 2MG/2ML VIAL As Ordered ONE (14:15)
[2024-10-08] MEDS ORDERED: ISOVUE-300 61% 100ML VIAL As Ordered ONE (14:55)
[2024-10-08] MEDS ORDERED: LIDOCAINE 1% MDV 20ML VIAL As Ordered ONE (14:55)
[2024-10-08] MEDS ORDERED: ONDANSETRON 4MG 2ML VIAL IV PRN (16:35)
[2024-10-08] MEDS ORDERED: MORPHINE 2 MG/ML 1ML VIAL IV PRN (16:35)
[2024-10-08] MEDS: NS (Normal Saline) 0.9% 1,000 ML IV SCH (16:35)
[2024-10-08] MEDS: ISOVUE-300 61% 100ML VIAL IV ONE (17:15)
[2024-10-08] MEDS: LIDOCAINE 1% MDV 20ML VIAL SC ONE (17:15)
[2024-10-09 04:30] VITALS: BP 117/60; TEMP 97.5; O2SAT 96
[2024-10-09 06:08] LABS: BASO % 0.5 % (0.0-1.0); EOS # 0.1 10^3/uL (0.0-0.5); EOS % 3.8 % (0.0-3.0); HEMATOCRIT 28.1 % (36.0-47.0); HEMOGLOBIN 9.1 g/dl (12.0-15.5); LYMPH # 0.9 10^3/uL (1.5-5.0); LYMPH % 47.8 % (24.0-44.0); MEAN CORPUSCULAR HEMOGLOBIN 30.7 pg (27.0-33.0); MEAN CORPUSCULAR HGB CONC 32.4 g/dl (32.0-36.5); MEAN CORPUSCULAR VOLUME 94.9 fl (80.0-96.0); MONO # 0.1 10^3/uL (0.0-0.8); MONO % 7.5 % (2.0-8.0); NEUTROPHILS % 39.9 % (36.0-66.0); PLATELET COUNT, AUTOMATED 238 10^3/uL (150-450); RED BLOOD COUNT 2.96 10^6/uL (4.00-5.40); WHITE BLOOD COUNT 1.9 10^3/uL (4.0-10.0)
[2024-10-09 06:32] LABS: ALBUMIN 2.5 G/DL (3.2-5.2); ALKALINE PHOSPHATASE 70 U/L (35-104); ALT/SGPT 12 U/L (7.0-40); AST/SGOT 13 U/L (<34); BILIRUBIN,TOTAL 0.5 MG/DL (0.3-1.2); BLOOD UREA NITROGEN 14 MG/DL (9-23); CALCIUM LEVEL 8.4 MG/DL (8.3-10.6); CARBON DIOXIDE LEVEL 24 MMOL/L (20-31); CHLORIDE LEVEL 111 MMOL/L (98-107); CREATININE FOR GFR 0.88 MG/DL (0.55-1.30); GLOMERULAR FILTRATION RATE > 60.0 (>32); GLUCOSE, FASTING 117 MG/DL (74-106); MAGNESIUM LEVEL 1.4 MG/DL (1.8-2.4); POTASSIUM SERUM 3.9 MMOL/L (3.5-5.1); SODIUM LEVEL 143 MMOL/L (136-145); TOTAL PROTEIN 6.1 G/DL (5.7-8.2)
[2024-10-09 07:14] LABS: NEUTROPHILS # 0.7 10^3/uL (1.5-8.5)
[2024-10-09 07:56] LABS: C REACTIVE PROTEIN QUANTITATIV 2.24 MG/DL (<1.0)
[2024-10-09] MEDS ORDERED: PANTOPRAZOLE 40MG TAB (PROTONIX) PO SCH (09:00)
[2024-10-09] MEDS ORDERED: oxyCODONE 20MG CR TAB PO SCH (09:00)
[2024-10-09] MEDS ORDERED: ISOVUE-370 76% 100ML VIAL As Ordered ONE (10:52)
[2024-10-09 11:32] VITALS: BP 122/60; TEMP 97.3; O2SAT 97
[2024-10-09] MEDS: MAG SULF 1GM/100ML (MAG RUN) 1 GM in IV 1 EA IV SCH (11:53)
[2024-10-09] MEDS ORDERED: FLUTICASONE PROP 0.05% NASAL SPRAY 16 GM (FLONASE) NARES PRN (12:55)
[2024-10-09] MEDS ORDERED: NITROGLYCERIN 0.4MG SUBL TABLET SL PRN (12:55)
[2024-10-09] MEDS: MAGNESIUM OXIDE 400MG TAB (MAG-OX) PO SCH (14:43)
[2024-10-09] MEDS: FUROSEMIDE 20 MG TAB PO SCH (14:48)
[2024-10-09] MEDS: MULTIVITAMINS/MINERALS THERAP 1 TAB PO SCH (14:48)
[2024-10-09] MEDS: SENNA 8.6 MG TAB (SENOKOT) PO SCH (14:59)
[2024-10-09 15:17] LABS: HEMOGLOBIN A1c 5.7 % (4.0-6.0)
[2024-10-09 19:16] VITALS: BP 139/64; TEMP 97.2; O2SAT 99
[2024-10-09] MEDS: METOPROLOL SUCC *XL* 12.5MG PER 1/2 TAB (TopROL *XL*) PO SCH (19:45)
[2024-10-09] MEDS: ASCORBIC ACID 500 MG TAB PO SCH (19:46)
[2024-10-09] MEDS: oxyCODONE 20MG CR TAB PO SCH (19:47)
[2024-10-09] MEDS: PANTOPRAZOLE 40MG TAB (PROTONIX) PO SCH (19:47)
[2024-10-09] MEDS: traZODone 100 MG TAB PO SCH (21:44)
[2024-10-10 03:14] VITALS: BP 139/62; TEMP 97; O2SAT 94
[2024-10-10 05:50] LABS: BASO % 0.6 % (0.0-1.0); EOS # 0.1 10^3/uL (0.0-0.5); EOS % 5.6 % (0.0-3.0); HEMATOCRIT 27.5 % (36.0-47.0); HEMOGLOBIN 8.9 g/dl (12.0-15.5); LYMPH % 57.6 % (24.0-44.0); MEAN CORPUSCULAR HEMOGLOBIN 31.3 pg (27.0-33.0); MEAN CORPUSCULAR HGB CONC 32.4 g/dl (32.0-36.5); MEAN CORPUSCULAR VOLUME 96.8 fl (80.0-96.0); MONO # 0.2 10^3/uL (0.0-0.8); MONO % 8.5 % (2.0-8.0); NEUTROPHILS % 27.1 % (36.0-66.0); PLATELET COUNT, AUTOMATED 214 10^3/uL (150-450); RED BLOOD COUNT 2.84 10^6/uL (4.00-5.40); WHITE BLOOD COUNT 1.8 10^3/uL (4.0-10.0)
[2024-10-10 06:03] LABS: C REACTIVE PROTEIN QUANTITATIV 1.79 MG/DL (<1.0)
[2024-10-10 06:04] LABS: BLOOD UREA NITROGEN 14 MG/DL (9-23); CALCIUM LEVEL 8.2 MG/DL (8.3-10.6); CARBON DIOXIDE LEVEL 26 MMOL/L (20-31); CHLORIDE LEVEL 109 MMOL/L (98-107); CREATININE FOR GFR 0.92 MG/DL (0.55-1.30); GLOMERULAR FILTRATION RATE > 60.0 (>32); GLUCOSE, FASTING 117 MG/DL (74-106); POTASSIUM SERUM 3.8 MMOL/L (3.5-5.1); SODIUM LEVEL 144 MMOL/L (136-145)
[2024-10-10 06:09] LABS: NEUTROPHILS # 0.5 10^3/uL (1.5-8.5)
[2024-10-10 12:00] VITALS: BP 125/51; TEMP 97; O2SAT 96
[2024-10-10] MEDS: FILGRASTIM 300MCG 0.5ML SYRINGE **SC ADMINISTRATION ONLY SC SCH (17:45)
[2024-10-10] MEDS ORDERED: PILL CUTTER 1 EACH XX PRN (17:45)
[2024-10-10] MEDS: LORATADINE 10 MG TAB PO ONE (17:48)
[2024-10-10 21:28] VITALS: BP 135/62; TEMP 97.2; O2SAT 96
[2024-10-11 04:00] VITALS: BP 142/58; TEMP 97; O2SAT 95
[2024-10-11 06:24] LABS: BASO % 0.2 % (0.0-1.0); EOS # 0.1 10^3/uL (0.0-0.5); EOS % 0.6 % (0.0-3.0); HEMATOCRIT 26.4 % (36.0-47.0); HEMOGLOBIN 8.5 g/dl (12.0-15.5); LYMPH # 1.3 10^3/uL (1.5-5.0); LYMPH % 15.6 % (24.0-44.0); MEAN CORPUSCULAR HEMOGLOBIN 30.7 pg (27.0-33.0); MEAN CORPUSCULAR HGB CONC 32.2 g/dl (32.0-36.5); MEAN CORPUSCULAR VOLUME 95.3 fl (80.0-96.0); MONO # 0.5 10^3/uL (0.0-0.8); MONO % 5.7 % (2.0-8.0); NEUTROPHILS # 6.4 10^3/uL (1.5-8.5); NEUTROPHILS % 76.8 % (36.0-66.0); PLATELET COUNT, AUTOMATED 205 10^3/uL (150-450); RED BLOOD COUNT 2.77 10^6/uL (4.00-5.40); WHITE BLOOD COUNT 8.3 10^3/uL (4.0-10.0)
[2024-10-11 06:40] LABS: C REACTIVE PROTEIN QUANTITATIV 1.42 MG/DL (<1.0)
[2024-10-11 06:41] LABS: CALCIUM LEVEL 8.3 MG/DL (8.3-10.6); CREATININE FOR GFR 1.01 MG/DL (0.55-1.30); GLOMERULAR FILTRATION RATE 56.1 (>32); MAGNESIUM LEVEL 1.7 MG/DL (1.8-2.4); POTASSIUM SERUM 4.3 MMOL/L (3.5-5.1)
[2024-10-11] MEDS: LORATADINE 10 MG TAB PO SCH (09:08)
[2024-10-11] MEDS: MAG SULF 1GM/100ML (MAG RUN) 1 GM in IV 1 EA IV ONE (09:15)
[2024-10-11 12:12] VITALS: BP 128/79; TEMP 97.5; O2SAT 96
[2024-10-11] MEDS: ACETAMINOPHEN *IV* 1,000 MG in IV 1 EA IV ONE (14:02)
[2024-10-11 19:53] VITALS: BP 129/52; TEMP 97.5; O2SAT 96
[2024-10-12 03:48] VITALS: BP 143/64; TEMP 97; O2SAT 94
[2024-10-12 06:35] LABS: HEMATOCRIT 25.9 % (36.0-47.0); HEMOGLOBIN 8.5 g/dl (12.0-15.5); MEAN CORPUSCULAR HEMOGLOBIN 31.5 pg (27.0-33.0); MEAN CORPUSCULAR HGB CONC 32.8 g/dl (32.0-36.5); MEAN CORPUSCULAR VOLUME 95.9 fl (80.0-96.0); PLATELET COUNT, AUTOMATED 198 10^3/uL (150-450); WHITE BLOOD COUNT 5.9 10^3/uL (4.0-10.0)
[2024-10-12 07:08] LABS: ATYPICAL LYMPH 6 % (0-5); LYMPHOCYTES 26 % (16-44); MONOCYTES 2 % (0-5); NEUTROPHILS 60 % (28-66)
[2024-10-12 07:09] LABS: PLATELET ESTIMATE NORMAL (NORMAL)
[2024-10-12 07:10] LABS: ANISOCYTOSIS 1+; PLATELET CLUMPS SMALL AMT; POLYCHROMASIA 1+
[2024-10-12 07:11] LABS: POIKILOCYTOSIS 1+
[2024-10-12 07:17] LABS: C REACTIVE PROTEIN QUANTITATIV 1.07 MG/DL (<1.0)
[2024-10-12 07:18] LABS: CALCIUM LEVEL 8.6 MG/DL (8.3-10.6); CREATININE FOR GFR 1.05 MG/DL (0.55-1.30); GLOMERULAR FILTRATION RATE 53.7 (>32); MAGNESIUM LEVEL 1.7 MG/DL (1.8-2.4)
[2024-10-12] MEDS ORDERED: KEPP250T5 PO (07:33)
[2024-10-12] MEDS ORDERED: CLAR10TA7 PO (07:33)
[2024-10-12] MEDS ORDERED: LIDO5TD TD ×2 (07:33→10:30)
[2024-10-12] MEDS: MAG SULF 1GM/100ML (MAG RUN) 1 GM in IV 1 EA IV ONE (08:33)
[2024-10-12 08:34] VITALS: BP 127/64
[2024-10-15] MEDS ORDERED: SUCR1TA PO (16:05)
[2024-10-15] MEDS ORDERED: ONDA-282 PO (16:05)
== END 2024-10-12 12:00 | disposition home health service (06) | DRG 698 ==
LOC: M ED 09:35 → EDBD 09:35 → M ED INP 11:47 → M ICU 12:50 → M MSPAV 10-06 22:06
PROVIDERS: ADMIT Internal Medicine Pulmonary Disease; ATTEND Internal Medicine
PROC: 30233N1 Transfusion of Nonautologous Red Blood Cells into Peripheral Vein, Percutaneous Approach (ICD-10-PCS; principal; 2024-10-02)
PROC: 0T25X0Z Change Drainage Device in Kidney, External Approach (ICD-10-PCS; 2024-10-08)
DX: T83.518A Infection and inflammatory reaction due to other urinary catheter, initial encounter (principal); G92.8 Other toxic encephalopathy; A41.9 Sepsis, unspecified organism; N17.9 Acute kidney failure, unspecified; I50.32 Chronic diastolic (congestive) heart failure; I13.0 Hypertensive heart and chronic kidney disease with heart failure and stage 1 through stage 4 chronic kidney disease, or unspecified chronic kidney disease; N39.0 Urinary tract infection, site not specified; D62 Acute posthemorrhagic anemia; N10 Acute pyelonephritis; E87.1 Hypo-osmolality and hyponatremia; E87.20 Acidosis, unspecified; G72.81 Critical illness myopathy; D46.C Myelodysplastic syndrome with isolated del(5q) chromosomal abnormality; I25.10 Atherosclerotic heart disease of native coronary artery without angina pectoris; I48.91 Unspecified atrial fibrillation; I49.5 Sick sinus syndrome; D63.1 Anemia in chronic kidney disease; E11.22 Type 2 diabetes mellitus with diabetic chronic kidney disease; N18.31 Chronic kidney disease, stage 3a; N13.9 Obstructive and reflux uropathy, unspecified; G40.409 Other generalized epilepsy and epileptic syndromes, not intractable, without status epilepticus; G25.81 Restless legs syndrome; E78.5 Hyperlipidemia, unspecified; M79.7 Fibromyalgia; E87.5 Hyperkalemia; G47.33 Obstructive sleep apnea (adult) (pediatric); K21.9 Gastro-esophageal reflux disease without esophagitis; J06.9 Acute upper respiratory infection, unspecified; E83.42 Hypomagnesemia; E03.9 Hypothyroidism, unspecified; J45.909 Unspecified asthma, uncomplicated; M54.9 Dorsalgia, unspecified; G89.29 Other chronic pain; Z93.3 Colostomy status; Z79.890 Hormone replacement therapy; Z79.899 Other long term (current) drug therapy; Z88.7 Allergy status to serum and vaccine; Z91.048 Other nonmedicinal substance allergy status; Z88.2 Allergy status to sulfonamides; Z88.8 Allergy status to other drugs, medicaments and biological substances; Z95.0 Presence of cardiac pacemaker; Z86.73 Personal history of transient ischemic attack (TIA), and cerebral infarction without residual deficits; Z90.49 Acquired absence of other specified parts of digestive tract; Z90.79 Acquired absence of other genital organ(s); Z93.6 Other artificial openings of urinary tract status

== ENCOUNTER 2024-11-07 15:16 | Observation (INO) | payer MEDICARE, BC ==
[~2024-11-07] VITALS: Ht 160 cm; Wt 74.0 kg
[2024-11-07] VITALS (7 sets, daily range): BP systolic 125–150; BP diastolic 57–66; TEMP 97.4–99.3; O2SAT 95–99
[~2024-11-07 15:16] MED LIST changes: -DICY-61 PO
[2024-11-07] MEDS ORDERED: oxyCODONE 20MG CR TAB PO ONE (16:20)
[2024-11-07] MEDS: rOPINIRole 1MG TAB PO STA (16:39)
[2024-11-07] MEDS: oxyCODONE 5MG TAB PO ONE (16:39)
[2024-11-07] MEDS: oxyCODONE 10 MG CR TAB PO ONE (16:40)
[2024-11-07] MEDS: SODIUM CHLORIDE 0.9% INJ 10 ML SYR IV SCH (16:40)
[2024-11-07 16:53] LABS: BASO % 0.3 % (0.0-1.0); EOS # 0.1 10^3/uL (0.0-0.5); EOS % 1.5 % (0.0-3.0); LYMPH # 1.3 10^3/uL (1.5-5.0); LYMPH % 39.5 % (24.0-44.0); MEAN CORPUSCULAR HEMOGLOBIN 32.6 pg (27.0-33.0); MEAN CORPUSCULAR HGB CONC 32.6 g/dl (32.0-36.5); MONO # 0.3 10^3/uL (0.0-0.8); MONO % 8.6 % (2.0-8.0); NEUTROPHILS # 1.6 10^3/uL (1.5-8.5); NEUTROPHILS % 49.8 % (36.0-66.0); PLATELET COUNT, AUTOMATED 227 10^3/uL (150-450); RED BLOOD COUNT 1.84 10^6/uL (4.00-5.40); WHITE BLOOD COUNT 3.2 10^3/uL (4.0-10.0)
[2024-11-07 16:54] LABS: HEMATOCRIT 18.4 % (36.0-47.0)
[2024-11-07 17:18] LABS: INR 1.03; PARTIAL THROMBOPLASTIN TIME 29.5 SECONDS (24.8-34.2); PROTHROMBIN TIME 13.8 SECONDS (12.5-14.5)
[2024-11-07 17:23] LABS: LIPASE 23 U/L (12-53)
[2024-11-07 17:24] LABS: CPK CREATINE PHOSPHOKINASE 28 U/L (34-145)
[2024-11-07 17:25] LABS: ALBUMIN 2.7 G/DL (3.2-5.2); ALKALINE PHOSPHATASE 81 U/L (35-104); ALT/SGPT 12 U/L (7.0-40); AST/SGOT 13 U/L (<34); BILIRUBIN,DIRECT 0.1 MG/DL (<0.4); BILIRUBIN,TOTAL 0.2 MG/DL (0.3-1.2); BLOOD UREA NITROGEN 29 MG/DL (9-23); CALCIUM LEVEL 8.2 MG/DL (8.3-10.6); CARBON DIOXIDE LEVEL 27 MMOL/L (20-31); CHLORIDE LEVEL 108 MMOL/L (98-107); CK-MB VALUE MASS < 1.0 NG/ML (<3.6); CREATININE FOR GFR 1.19 MG/DL (0.55-1.30); GLOMERULAR FILTRATION RATE 46.5 (>32); GLUCOSE, FASTING 103 MG/DL (74-106); MB/CK RELATIVE INDEX 3.57 (< OR =4); SODIUM LEVEL 141 MMOL/L (136-145); TOTAL PROTEIN 6.6 G/DL (5.7-8.2)
[2024-11-07 17:26] LABS: FREE T4 0.94 NG/DL (0.89-1.76); THYROID STIMULATING HORMONE 3.746 uIU/ML (0.55-4.78)
[2024-11-07 19:01] LABS: KETONE, URINE AUTO RFX NEGATIVE (NEGATIVE); LEUKOCYTE ESTERASE UR AUTO RFX 3+ (NEGATIVE); MUCUS, URINE RFX SMALL (NEGATIVE); NITRITE, URINE AUTO RFX NEGATIVE (NEGATIVE); RBC, URINE AUTO RFX 39 /HPF (0-3); SQUAM EPITHELIAL CELL UR AURFX 3 /HPF (0-6); WBC, URINE AUTO RFX TNTC /HPF (0-3)
[2024-11-07] MEDS ORDERED: DICY-61 PO (20:01)
[2024-11-07] MEDS ORDERED: HOME MED LIST COMPLETE! XX SCH (20:05)
[2024-11-07] MEDS: CYCLOBENZAPRINE 10MG TABLET PO SCH (21:26)
[2024-11-07] MEDS: SUCRALFATE 1 GM TAB PO SCH (21:26)
[2024-11-07] MEDS: ASCORBIC ACID 500 MG TAB PO SCH (21:26)
[2024-11-07] MEDS: DOXYCYCLINE HYCLATE 100 MG in DEXTROSE 5% (D5W) MINI-BAG PLU 100 ML IV ONE (21:26)
[2024-11-07] MEDS: DOCUSATE SODIUM 100MG CAPSULE PO SCH (21:26)
[2024-11-07] MEDS: PANTOPRAZOLE 40MG TAB (PROTONIX) PO SCH (21:26)
[2024-11-07] MEDS: PREGABALIN 100 MG CAP (LYRICA) PO SCH (21:26)
[2024-11-07] MEDS: levETIRAcetam 250MG TABLET (KEPPRA) PO SCH (21:28)
[2024-11-07] MEDS: traZODone 50 MG TAB PO SCH (21:29)
[2024-11-07] MEDS: oxyCODONE 5MG TAB PO SCH (21:30)
[2024-11-07] MEDS: MUPIROCIN 2% OINT 22 GM TUBE TOP SCH (21:31)
[2024-11-07] MEDS: QUEtiapine FUMARATE 25 MG TAB PO SCH (22:29)
[2024-11-07] MEDS: METOPROLOL SUCC *XL* 25MG TAB (TopROL *XL*) PO SCH (22:29)
[2024-11-07] MEDS: rOPINIRole 1MG TAB PO SCH (22:30)
[2024-11-07] MEDS: METOPROLOL SUCC *XL* 12.5MG PER 1/2 TAB (TopROL *XL*) PO SCH (22:30)
[2024-11-07] MEDS: METHENAMINE HIPPURATE 1GM TABLET PO SCH (22:30)
[2024-11-07] MEDS: QUEtiapine FUMARATE 12.5 MG HALF-TAB PO SCH (22:30)
[2024-11-08] MEDS: LEVOTHYROXINE 50MCG TABLET (0.05MG) PO SCH (06:08)
[2024-11-08] MEDS: oxyCODONE 10 MG CR TAB PO ONE (06:09)
[2024-11-08 06:28] LABS: CALCIUM LEVEL 8.5 MG/DL (8.3-10.6); CREATININE FOR GFR 1.14 MG/DL (0.55-1.30); GLOMERULAR FILTRATION RATE 48.8 (>32); POTASSIUM SERUM 4.8 MMOL/L (3.5-5.1)
[2024-11-08 06:29] LABS: HEMATOCRIT 26.1 % (36.0-47.0); MEAN CORPUSCULAR HEMOGLOBIN 30.9 pg (27.0-33.0); MEAN CORPUSCULAR HGB CONC 33.3 g/dl (32.0-36.5); MEAN CORPUSCULAR VOLUME 92.6 fl (80.0-96.0); PLATELET COUNT, AUTOMATED 257 10^3/uL (150-450); RED BLOOD COUNT 2.82 10^6/uL (4.00-5.40); WHITE BLOOD COUNT 2.9 10^3/uL (4.0-10.0)
[2024-11-08 06:34] LABS: HEMOGLOBIN 8.7 g/dl (12.0-15.5)
[2024-11-08] MEDS: CYANOCOBALAMIN 500 MCG TAB PO SCH (07:33)
[2024-11-08] MEDS: DOXYCYCLINE HYCLATE 100MG TABLET PO SCH (07:33)
[2024-11-08 14:08] VITALS: BP 130/69; TEMP 97; O2SAT 93
[2024-11-08] MEDS ORDERED: ONDANSETRON 4MG ORAL DISINTEGRATING TAB PO ONE (18:10)
== END 2024-11-08 20:09 | disposition home or self-care (01) ==
LOC: M ED 15:16 → M ED INP 15:17 → M MSPAV 11-08 14:09
PROVIDERS: ADMIT General Practice; ATTEND General Practice
DX: D64.9 Anemia, unspecified (principal); D46.9 Myelodysplastic syndrome, unspecified; D72.819 Decreased white blood cell count, unspecified; R82.90 Unspecified abnormal findings in urine; Z87.440 Personal history of urinary (tract) infections; N13.9 Obstructive and reflux uropathy, unspecified; N31.9 Neuromuscular dysfunction of bladder, unspecified; D70.9 Neutropenia, unspecified; E83.42 Hypomagnesemia; G40.909 Epilepsy, unspecified, not intractable, without status epilepticus; E11.9 Type 2 diabetes mellitus without complications; G72.81 Critical illness myopathy; R53.81 Other malaise; M54.50 Low back pain, unspecified; G93.41 Metabolic encephalopathy; E87.6 Hypokalemia; I11.9 Hypertensive heart disease without heart failure; I50.30 Unspecified diastolic (congestive) heart failure; E78.5 Hyperlipidemia, unspecified; I25.10 Atherosclerotic heart disease of native coronary artery without angina pectoris; I48.91 Unspecified atrial fibrillation; Z86.73 Personal history of transient ischemic attack (TIA), and cerebral infarction without residual deficits; M79.7 Fibromyalgia; G25.81 Restless legs syndrome; Z79.899 Other long term (current) drug therapy; F32.A Depression, unspecified; K21.9 Gastro-esophageal reflux disease without esophagitis; J45.909 Unspecified asthma, uncomplicated; E03.9 Hypothyroidism, unspecified
CPT/HCPCS: 36415; 36430; 71045; 74176; 80048; 80076; 81001; 82550; 82553; 83690; 83880; 84439; 84443; 84484; 85025; 85027; 85610; 85730; 86850; 86900; 86901; 86920; 87088; 87186; 87486; 87581; 87633; 87798; 93005; 93041; 94760; 96365; 97116; 97161; 97165; 97535; 99285; G0378; P9016

== ENCOUNTER → 2024-11-07 | Outpatient (REF) | payer MEDICARE, BC ==
[~2024-11-07] MED LIST changes: +CLAR10TA7 PO; +DICY-61 PO; +KEPP250T5 PO; +LIDO5TD TD; +MM S100C PO; +SENN8.6T28 PO; +SUCR1TA PO; -levETIRAcetam INJection 500 MG in DEXTROSE 5% (D5W) MINI-BAG PLU 100 ML IV SCH
== END ==
LOC: M LAB REF 17:03
PROVIDERS: ATTEND Internal Medicine
DX: Z53.9 Procedure and treatment not carried out, unspecified reason (principal)

== ENCOUNTER 2024-11-15 15:25 | Inpatient (IN) | payer MEDICARE, BC ==
[~2024-11-15] VITALS: Ht 165.1 cm; Wt 74.0 kg
[~2024-11-15 15:25] MED LIST changes: +DICY-61 PO
[2024-11-15] MEDS: NS (Normal Saline) 0.9% 1,000 ML IV ONE (16:11)
[2024-11-15] MEDS: ACETAMINOPHEN *IV* 1,000 MG in IV 1 EA IV ONE (16:12)
[2024-11-15] MEDS: PIPERACILLIN/TAZOBACTAM SOD 4.5 GM in DEXTROSE 5% (D5W) ADV/MINI-BAG 50 ML IV ONE (16:17)
[2024-11-15] MEDS: fentaNYL 100 MCG/2 ML INJECTION IV ONE (16:19)
[2024-11-15 16:37] LABS: VENOUS BASE EXCESS -3.3 (-2.0-2.0); VENOUS HCO3 21.6 MMOL/L (23.0-27.0); VENOUS O2 SATURATION 82.5 % (60.0-80.0); VENOUS PARTIAL PRESSURE CO2 38.3 mmHg (38.0-50.0); VENOUS PARTIAL PRESSURE O2 49.4 mmHg (30.0-50.0); VENOUS STANDARD HCO3 21.5 MMOL/L; VENOUS TOTAL CO2 22.8 MMOL/L (24.0-28.0)
[2024-11-15 16:46] LABS: EOS % 0.9 % (0.0-3.0); HEMATOCRIT 22.5 % (36.0-47.0); HEMOGLOBIN 7.3 g/dl (12.0-15.5); LYMPH # 0.7 10^3/uL (1.5-5.0); LYMPH % 15.5 % (24.0-44.0); MEAN CORPUSCULAR HEMOGLOBIN 30.9 pg (27.0-33.0); MEAN CORPUSCULAR HGB CONC 32.4 g/dl (32.0-36.5); MEAN CORPUSCULAR VOLUME 95.3 fl (80.0-96.0); MONO # 0.5 10^3/uL (0.0-0.8); MONO % 10.6 % (2.0-8.0); NEUTROPHILS # 3.1 10^3/uL (1.5-8.5); NEUTROPHILS % 72.3 % (36.0-66.0); PLATELET COUNT, AUTOMATED 208 10^3/uL (150-450); RED BLOOD COUNT 2.36 10^6/uL (4.00-5.40); WHITE BLOOD COUNT 4.3 10^3/uL (4.0-10.0)
[2024-11-15 17:11] LABS: CK-MB VALUE MASS < 1.0 NG/ML (<3.6)
[2024-11-15 17:12] LABS: C REACTIVE PROTEIN QUANTITATIV 2.42 MG/DL (<1.0); INR 1.03; PARTIAL THROMBOPLASTIN TIME 31.6 SECONDS (24.8-34.2); PROTHROMBIN TIME 13.8 SECONDS (12.5-14.5)
[2024-11-15 17:13] LABS: ALBUMIN 2.6 G/DL (3.2-5.2); ALKALINE PHOSPHATASE 106 U/L (35-104); ALT/SGPT 45 U/L (7.0-40); AMYLASE 59 U/L (30-118); AST/SGOT 45 U/L (<34); BILIRUBIN,DIRECT 0.2 MG/DL (<0.4); BILIRUBIN,TOTAL 0.4 MG/DL (0.3-1.2); BLOOD UREA NITROGEN 27 MG/DL (9-23); CALCIUM LEVEL 7.9 MG/DL (8.3-10.6); CARBON DIOXIDE LEVEL 26 MMOL/L (20-31); CHLORIDE LEVEL 109 MMOL/L (98-107); CPK CREATINE PHOSPHOKINASE 30 U/L (34-145); CREATININE FOR GFR 1.08 MG/DL (0.55-1.30); GLUCOSE, FASTING 138 MG/DL (74-106); MAGNESIUM LEVEL 1.2 MG/DL (1.8-2.4); MB/CK RELATIVE INDEX 3.33 (< OR =4); POTASSIUM SERUM 4.7 MMOL/L (3.5-5.1); SODIUM LEVEL 140 MMOL/L (136-145); TOTAL PROTEIN 6.3 G/DL (5.7-8.2)
[2024-11-15 17:19] LABS: PROCALCITONIN 0.18 ng/ml
[2024-11-15 17:26] LABS: APPEARANCE, URINE CLOUDY (CLEAR); BACTERIA, URINE AUTO 3+ (NEGATIVE); BILIRUBIN, URINE AUTO NEGATIVE (NEGATIVE); BLOOD, URINE BLOOD 1+ (NEGATIVE); COLOR, URINE YELLOW (YELLOW); GLUCOSE, URINE (UA) AUTO NEGATIVE (NEGATIVE); KETONE, URINE AUTO NEGATIVE (NEGATIVE); LEUKOCYTE ESTERASE, URINE AUTO 3+ (NEGATIVE); MUCUS, URINE SMALL (NEGATIVE); NITRITE, URINE AUTO NEGATIVE (NEGATIVE); PROTEIN, URINE AUTO 2+ mg/dL (NEGATIVE); RBC, URINE AUTO 32 /HPF (0-3); SPECIFIC GRAVITY URINE AUTO 1.012 (1.002-1.035); SQUAMOUS EPITHELIAL CELL UR AU 3 /HPF (0-6); UROBILINOGEN, URINE AUTO 0.2 mg/dL (0.0-2.0); WBC, URINE AUTO TNTC /HPF (0-3); YEAST LIKE CELL URINE AUTO SMALL
[2024-11-15] MEDS ORDERED: ISOVUE-370 76% 100ML VIAL As Ordered ONE (17:28)
[2024-11-15 17:48] LABS: CK-MB VALUE MASS < 1.0 NG/ML (<3.6)
[2024-11-15 17:49] LABS: CPK CREATINE PHOSPHOKINASE 26 U/L (34-145); MB/CK RELATIVE INDEX 3.84 (< OR =4)
[2024-11-15] MEDS ORDERED: HOME MED LIST COMPLETE! XX SCH (18:30)
[2024-11-15] MEDS: MAG SULF 1GM/100ML (MAG RUN) 1 GM in IV 1 EA IV ONE (19:04)
[2024-11-15] MEDS ORDERED: ACETAMINOPHEN 325 MG TAB PO PRN (19:35)
[2024-11-15] MEDS ORDERED: NITROGLYCERIN 0.4MG SUBL TABLET SL PRN (19:35)
[2024-11-15] MEDS ORDERED: MAALOX 30 ML SUSP *UDC PO PRN (19:35)
[2024-11-15] MEDS ORDERED: ALBUTEROL 90 MCG/ACT 8GM HFA INHALER INH PRN (19:35)
[2024-11-15] MEDS ORDERED: FLUTICASONE PROP 0.05% NASAL SPRAY 16 GM (FLONASE) NARES PRN (19:35)
[2024-11-15] MEDS ORDERED: DOCUSATE SODIUM 100MG CAPSULE PO PRN (19:35)
[2024-11-15] MEDS: MAG SULF 1GM/100ML (MAG RUN) 1 GM in IV 1 EA IV SCH (20:06)
[2024-11-15 20:07] VITALS: BP 109/77; TEMP 99.1; O2SAT 96
[2024-11-15 20:28] VITALS: BP 119/57; TEMP 98.6; O2SAT 97
[2024-11-15] MEDS ORDERED: PILL CUTTER 1 EACH XX PRN (20:30)
[2024-11-15] MEDS ORDERED: oxyCODONE 10 MG CR TAB PO ONE (21:00)
[2024-11-15 21:10] VITALS: BP 131/69; TEMP 97
[2024-11-15] MEDS: METOPROLOL SUCC *XL* 25MG TAB (TopROL *XL*) PO SCH (21:41)
[2024-11-15] MEDS: rOPINIRole 1MG TAB PO SCH (21:41)
[2024-11-15] MEDS: ASCORBIC ACID 500 MG TAB PO SCH (21:41)
[2024-11-15] MEDS: traZODone 50 MG TAB PO SCH (21:41)
[2024-11-15] MEDS: PANTOPRAZOLE 40MG TAB (PROTONIX) PO SCH (21:41)
[2024-11-15] MEDS: PREGABALIN 100 MG CAP (LYRICA) PO SCH (21:41)
[2024-11-15] MEDS: MAGNESIUM OXIDE 400MG TAB (MAG-OX) PO SCH (21:41)
[2024-11-15] MEDS: QUEtiapine FUMARATE 25 MG TAB PO SCH (21:42)
[2024-11-15] MEDS: oxyCODONE 5MG TAB PO SCH (21:43)
[2024-11-15] MEDS: oxyCODONE 20MG CR TAB PO SCH (22:05)
[2024-11-15] MEDS: CYCLOBENZAPRINE 5MG TABLET PO SCH (22:06)
[2024-11-15] MEDS: FUROSEMIDE 20MG/2ML VIAL IV SCH (22:06)
[2024-11-15] MEDS: LIDOCAINE 5% (LIDODERM) PATCH TD SCH (22:07)
[2024-11-15] MEDS: PIPERACILLIN/TAZOBACTAM SOD 3.375 GM in DEXTROSE 5% (D5W) ADV/MINI-BAG 50 ML IV SCH (22:07)
[2024-11-15 22:10] VITALS: BP 136/63; TEMP 97.5; O2SAT 96
[2024-11-16 03:13] VITALS: BP 124/57; TEMP 97
[2024-11-16 03:31] LABS: HEMOGLOBIN 8.1 g/dl (12.0-15.5)
[2024-11-16 04:02] VITALS: BP 124/57; TEMP 97; O2SAT 96
[2024-11-16] MEDS: LEVOTHYROXINE 50MCG TABLET (0.05MG) PO SCH (05:20)
[2024-11-16] MEDS: SODIUM CHLORIDE 0.9% INJ 10 ML SYR IV PRN (06:30)
[2024-11-16 07:18] LABS: HEMATOCRIT 25.2 % (36.0-47.0); HEMOGLOBIN 8.4 g/dl (12.0-15.5); MEAN CORPUSCULAR HEMOGLOBIN 30.9 pg (27.0-33.0); MEAN CORPUSCULAR HGB CONC 33.3 g/dl (32.0-36.5); MEAN CORPUSCULAR VOLUME 92.6 fl (80.0-96.0); PLATELET COUNT, AUTOMATED 198 10^3/uL (150-450); RED BLOOD COUNT 2.72 10^6/uL (4.00-5.40)
[2024-11-16 07:58] VITALS: BP 130/60; TEMP 96.8; O2SAT 99
[2024-11-16 08:02] LABS: ALBUMIN 2.6 G/DL (3.2-5.2); BILIRUBIN,TOTAL 1.1 MG/DL (0.3-1.2); CALCIUM LEVEL 8.3 MG/DL (8.3-10.6); CREATININE FOR GFR 1.17 MG/DL (0.55-1.30); GLOMERULAR FILTRATION RATE 47.4 (>32); MAGNESIUM LEVEL 2.2 MG/DL (1.8-2.4); POTASSIUM SERUM 4.5 MMOL/L (3.5-5.1); TOTAL PROTEIN 6.3 G/DL (5.7-8.2)
[2024-11-16] MEDS: CALCITRIOL 0.25 MCG CAP (S0169) PO SCH (08:45)
[2024-11-16] MEDS: DICYCLOMINE 10 MG CAP PO SCH (08:45)
[2024-11-16] MEDS: CYANOCOBALAMIN 500 MCG TAB PO SCH (08:45)
[2024-11-16] MEDS: SENNA 8.6 MG TAB (SENOKOT) PO SCH (08:45)
[2024-11-16] MEDS: SODIUM CHLORIDE 0.9% INJ 10 ML SYR IV SCH (08:50)
[2024-11-16] MEDS: KETOROLAC 30 MG/ML 1ML VIAL IV ONE (09:50)
[2024-11-16] MEDS: HYDROMORPHONE HCL 0.5 MG/ 0.5 ML SYRINGE IV ONE (09:50)
[2024-11-16] MEDS: LR 1,000 ML IV ONE (09:52)
[2024-11-16 12:00] VITALS: BP 127/60; TEMP 97; O2SAT 100
[2024-11-16] MEDS ORDERED: PERCOCET 5MG/325MG TAB PO ONE (12:15)
[2024-11-16] MEDS: PERCOCET 5MG/325MG TAB PO ONE (12:46)
[2024-11-16 15:03] LABS: HEMATOCRIT 22.9 % (36.0-47.0); HEMOGLOBIN 7.6 g/dl (12.0-15.5)
[2024-11-16 16:00] VITALS: BP 119/53; TEMP 97.2; O2SAT 97
[2024-11-16 18:33] LABS: HEMOGLOBIN 8.2 g/dl (12.0-15.5)
[2024-11-16 20:48] VITALS: BP 130/63; TEMP 97; O2SAT 96
[2024-11-17 00:05] VITALS: BP 112/40; TEMP 97.5; O2SAT 93
[2024-11-17 03:19] VITALS: BP 133/60; TEMP 97.2; O2SAT 94
[2024-11-17] MEDS: ACETAMINOPHEN *IV* 1,000 MG in IV 1 EA IV ONE (04:24)
[2024-11-17 08:00] VITALS: BP 162/73; TEMP 97; O2SAT 98
[2024-11-17] MEDS ORDERED: PREGABALIN 75 MG CAP(LYRICA) PO ONE (08:50)
[2024-11-17] MEDS ORDERED: NALOXONE INJ 0.4MG/1ML VIAL IV PRN (08:50)
[2024-11-17] MEDS: DICLOFENAC EPOLAMINE 1.3% PATCH TOP SCH (10:14)
[2024-11-17] MEDS: HYDROMORPHONE HCL 0.5 MG/ 0.5 ML SYRINGE IV ONE ×2 (10:14→18:54)
[2024-11-17] MEDS: KETOROLAC 30 MG/ML 1ML VIAL IV ONE (11:06)
[2024-11-17] MEDS: PREGABALIN 50 MG CAP (LYRICA) PO ONE (11:09)
[2024-11-17 12:00] VITALS: BP 122/57; TEMP 96.8; O2SAT 97
[2024-11-17] MEDS: ACETAMINOPHEN 500 MG TAB PO SCH (12:22)
[2024-11-17] MEDS: oxyCODONE 5MG TAB PO SCH (14:18)
[2024-11-17 16:00] VITALS: BP 119/54; TEMP 97.5; O2SAT 96
[2024-11-17] MEDS: CALCIUM CARBONATE 500 MG CHEW U/D PO ONE (18:54)
[2024-11-17 20:45] VITALS: BP 111/57; TEMP 97.5; O2SAT 97
[2024-11-17] MEDS: POTASSIUM CHLORIDE 10MEQ SR TABLET PO ONE (21:27)
[2024-11-17] MEDS: PREGABALIN 75 MG CAP(LYRICA) PO SCH (21:28)
[2024-11-17] MEDS: MAGNESIUM OXIDE 400MG TAB (MAG-OX) PO ONE (21:29)
[2024-11-18 00:54] VITALS: BP 114/55; TEMP 97.2; O2SAT 94
[2024-11-18 05:23] LABS: IONIZED CALCIUM 4.7 MG/DL (4.5-5.3)
[2024-11-18 05:27] VITALS: BP 152/72; TEMP 97.3; O2SAT 98
[2024-11-18 05:51] LABS: CK-MB VALUE MASS < 1.0 NG/ML (<3.6)
[2024-11-18 05:52] LABS: BLOOD UREA NITROGEN 28 MG/DL (9-23); CARBON DIOXIDE LEVEL 30 MMOL/L (20-31); CHLORIDE LEVEL 108 MMOL/L (98-107); CPK CREATINE PHOSPHOKINASE 22 U/L (34-145); GLOMERULAR FILTRATION RATE 35.6 (>32); GLUCOSE, FASTING 90 MG/DL (74-106); MAGNESIUM LEVEL 1.7 MG/DL (1.8-2.4); MB/CK RELATIVE INDEX 4.54 (< OR =4); POTASSIUM SERUM 4.6 MMOL/L (3.5-5.1); SODIUM LEVEL 141 MMOL/L (136-145)
[2024-11-18 07:07] LABS: BASO % 0.5 % (0.0-1.0); EOS # 0.1 10^3/uL (0.0-0.5); EOS % 4.9 % (0.0-3.0); HEMOGLOBIN 8.1 g/dl (12.0-15.5); LYMPH # 1.1 10^3/uL (1.5-5.0); LYMPH % 54.9 % (24.0-44.0); MEAN CORPUSCULAR HEMOGLOBIN 30.3 pg (27.0-33.0); MEAN CORPUSCULAR HGB CONC 32.4 g/dl (32.0-36.5); MEAN CORPUSCULAR VOLUME 93.6 fl (80.0-96.0); MONO # 0.2 10^3/uL (0.0-0.8); MONO % 10.2 % (2.0-8.0); NEUTROPHILS # 0.6 10^3/uL (1.5-8.5); PLATELET COUNT, AUTOMATED 223 10^3/uL (150-450); RED BLOOD COUNT 2.67 10^6/uL (4.00-5.40); WHITE BLOOD COUNT 2.1 10^3/uL (4.0-10.0)
[2024-11-18] MEDS ORDERED: LR 1,000 ML IV SCH (08:15)
[2024-11-18 08:18] VITALS: BP 152/71; TEMP 96.8; O2SAT 92
[2024-11-18] MEDS: DOXYCYCLINE HYCLATE 100MG TABLET PO SCH (10:09)
[2024-11-18] MEDS: HYDROMORPHONE HCL 0.5 MG/ 0.5 ML SYRINGE IV ONE (10:12)
[2024-11-18] MEDS: FUROSEMIDE 20MG/2ML VIAL IV ONE (10:12)
[2024-11-18] MEDS: cefTRIAXone SOD 2 GM in DEXTROSE 5% (D5W) ADV/MINI-BAG 50 ML IV SCH (10:12)
[2024-11-18 12:12] VITALS: BP 155/71; TEMP 97.2; O2SAT 96
[2024-11-18 16:37] VITALS: BP 147/69; TEMP 96.8; O2SAT 96
[2024-11-18 20:00] VITALS: BP 129/47; TEMP 97.5; O2SAT 98
[2024-11-19] VITALS: BP 151/66; TEMP 97; O2SAT 96
[2024-11-19] MEDS ORDERED: HYDROMORPHONE HCL 0.5 MG/ 0.5 ML SYRINGE IV PRN (00:50)
[2024-11-19] MEDS: HYDROMORPHONE HCL 0.5 MG/ 0.5 ML SYRINGE IV PRN (01:12)
[2024-11-19 04:00] VITALS: BP 118/44; TEMP 97.7; O2SAT 96
[2024-11-19 08:15] VITALS: BP 152/70; TEMP 97; O2SAT 97
[2024-11-19] MEDS: LR 1,000 ML IV SCH (10:42)
[2024-11-19 11:48] VITALS: BP 151/70; TEMP 97; O2SAT 98
[2024-11-19 16:33] VITALS: BP 148/70; TEMP 97.2; O2SAT 97
[2024-11-19 20:00] VITALS: BP 150/70; TEMP 97.3; O2SAT 96
[2024-11-20] VITALS: BP 145/69; TEMP 97.3; O2SAT 98
[2024-11-20] MEDS: oxyCODONE 5MG TAB PO PRN (01:29)
[2024-11-20 04:00] VITALS: BP 150/69; TEMP 97; O2SAT 98
[2024-11-20 06:07] LABS: BASO % 0.9 % (0.0-1.0); EOS # 0.1 10^3/uL (0.0-0.5); HEMATOCRIT 23.6 % (36.0-47.0); HEMOGLOBIN 7.6 g/dl (12.0-15.5); LYMPH % 40.6 % (24.0-44.0); MEAN CORPUSCULAR HEMOGLOBIN 30.2 pg (27.0-33.0); MEAN CORPUSCULAR HGB CONC 32.2 g/dl (32.0-36.5); MEAN CORPUSCULAR VOLUME 93.7 fl (80.0-96.0); MONO # 0.2 10^3/uL (0.0-0.8); NEUTROPHILS # 1.1 10^3/uL (1.5-8.5); NEUTROPHILS % 46.5 % (36.0-66.0); PLATELET COUNT, AUTOMATED 214 10^3/uL (150-450); RED BLOOD COUNT 2.52 10^6/uL (4.00-5.40); WHITE BLOOD COUNT 2.3 10^3/uL (4.0-10.0)
[2024-11-20 06:30] LABS: CALCIUM LEVEL 8.4 MG/DL (8.3-10.6); CREATININE FOR GFR 1.22 MG/DL (0.55-1.30); GLOMERULAR FILTRATION RATE 45.1 (>32); POTASSIUM SERUM 4.5 MMOL/L (3.5-5.1)
[2024-11-20 08:00] VITALS: BP 152/97; TEMP 97.2; O2SAT 98
[2024-11-20 12:00] VITALS: BP 155/68; TEMP 97.5; O2SAT 98
[2024-11-20 17:00] VITALS: BP 123/46; TEMP 97.5; O2SAT 97
[2024-11-20] MEDS: DAPTOmycin 750 MG in NS 50 ML IV SCH (17:57)
[2024-11-20 20:45] VITALS: BP 152/60; TEMP 96.8; O2SAT 94
[2024-11-21] VITALS (7 sets, daily range): BP systolic 137–151; BP diastolic 57–70; TEMP 97–97.2; O2SAT 92–97
[2024-11-21 06:21] LABS: HEMATOCRIT 24.7 % (36.0-47.0); MEAN CORPUSCULAR HEMOGLOBIN 30.8 pg (27.0-33.0); MEAN CORPUSCULAR HGB CONC 32.4 g/dl (32.0-36.5); PLATELET COUNT, AUTOMATED 246 10^3/uL (150-450); WHITE BLOOD COUNT 2.3 10^3/uL (4.0-10.0)
[2024-11-21 06:30] LABS: CALCIUM LEVEL 8.7 MG/DL (8.3-10.6); CREATININE FOR GFR 1.13 MG/DL (0.55-1.30); GLOMERULAR FILTRATION RATE 49.3 (>32); POTASSIUM SERUM 4.8 MMOL/L (3.5-5.1)
[2024-11-21 07:23] LABS: BASO % 0.4 % (0.0-1.0); EOS % 1.3 % (0.0-3.0); LYMPH # 1.2 10^3/uL (1.5-5.0); LYMPH % 52.7 % (24.0-44.0); MONO # 0.2 10^3/uL (0.0-0.8); MONO % 10.2 % (2.0-8.0); NEUTROPHILS # 0.8 10^3/uL (1.5-8.5)
[2024-11-21] MEDS: METOPROLOL TART 25 MG TABLET PO SCH (22:36)
[2024-11-21] MEDS: ONDANSETRON 4MG 2ML VIAL IV PRN (22:48)
[2024-11-21] MEDS: RAMELTEON 8 MG TAB (ROZEREM) PO PRN (22:48)
[2024-11-22] VITALS (7 sets, daily range): BP systolic 106–150; BP diastolic 56–67; TEMP 96.8–97.9; O2SAT 92–95
[2024-11-22 06:34] LABS: HEMATOCRIT 24.2 % (36.0-47.0); MEAN CORPUSCULAR HEMOGLOBIN 31.6 pg (27.0-33.0); MEAN CORPUSCULAR HGB CONC 33.1 g/dl (32.0-36.5); MEAN CORPUSCULAR VOLUME 95.7 fl (80.0-96.0); PLATELET COUNT, AUTOMATED 215 10^3/uL (150-450); RED BLOOD COUNT 2.53 10^6/uL (4.00-5.40); WHITE BLOOD COUNT 2.5 10^3/uL (4.0-10.0)
[2024-11-22 07:10] LABS: BASO % 0.4 % (0.0-1.0); EOS # 0.1 10^3/uL (0.0-0.5); EOS % 2.4 % (0.0-3.0); LYMPH # 1.5 10^3/uL (1.5-5.0); LYMPH % 57.9 % (24.0-44.0); MONO # 0.2 10^3/uL (0.0-0.8); MONO % 9.4 % (2.0-8.0); NEUTROPHILS % 29.1 % (36.0-66.0)
[2024-11-22 07:11] LABS: NEUTROPHILS # 0.7 10^3/uL (1.5-8.5)
[2024-11-22 07:37] LABS: CALCIUM LEVEL 8.6 MG/DL (8.3-10.6); CREATININE FOR GFR 1.06 MG/DL (0.55-1.30); GLOMERULAR FILTRATION RATE 53.1 (>32); POTASSIUM SERUM 4.8 MMOL/L (3.5-5.1)
[2024-11-23 04:13] VITALS: BP 131/61; TEMP 97; O2SAT 90
[2024-11-23 05:52] LABS: HEMATOCRIT 26.5 % (36.0-47.0); HEMOGLOBIN 8.5 g/dl (12.0-15.5); MEAN CORPUSCULAR HEMOGLOBIN 30.5 pg (27.0-33.0); MEAN CORPUSCULAR HGB CONC 32.1 g/dl (32.0-36.5); PLATELET COUNT, AUTOMATED 228 10^3/uL (150-450); RED BLOOD COUNT 2.79 10^6/uL (4.00-5.40); WHITE BLOOD COUNT 1.7 10^3/uL (4.0-10.0)
[2024-11-23 06:17] LABS: CALCIUM LEVEL 8.7 MG/DL (8.3-10.6); CREATININE FOR GFR 1.13 MG/DL (0.55-1.30); GLOMERULAR FILTRATION RATE 49.2 (>32); POTASSIUM SERUM 4.1 MMOL/L (3.5-5.1)
[2024-11-23 06:50] LABS: ANISOCYTOSIS 3+; ATYPICAL LYMPH 5 % (0-5); EOSINOPHILS 4 % (0-3); LYMPHOCYTES 41 % (16-44); MONOCYTES 11 % (0-5); NEUTROPHILS 39 % (28-66); PLATELET ESTIMATE NORMAL (NORMAL)
[2024-11-23 07:16] LABS: BASO % 0.6 % (0.0-1.0); EOS # 0.1 10^3/uL (0.0-0.5); EOS % 3.3 % (0.0-3.0); LYMPH # 0.8 10^3/uL (1.5-5.0); LYMPH % 41.4 % (24.0-44.0); MONO # 0.2 10^3/uL (0.0-0.8); MONO % 9.4 % (2.0-8.0); NEUTROPHILS # 0.8 10^3/uL (1.5-8.5); NEUTROPHILS % 44.2 % (36.0-66.0)
[2024-11-23 07:23] LABS: C REACTIVE PROTEIN QUANTITATIV 2.58 MG/DL (<1.0)
[2024-11-23 07:30] LABS: ERYTHROCYTE SEDIMENTATION RATE 26 mm/hr (0-30)
[2024-11-23 07:35] LABS: PROCALCITONIN 0.16 ng/ml
[2024-11-23 08:00] VITALS: BP 117/57; TEMP 96.8; O2SAT 97
[2024-11-23] MEDS ORDERED: KETOROLAC 30 MG/ML 1ML VIAL IV ONE (08:05)
[2024-11-23] MEDS ORDERED: METOCLOPRAMIDE INJ 10MG/2ML VIAL IV ONE (08:05)
[2024-11-23] MEDS ORDERED: FILGRASTIM 300MCG 0.5ML SYRINGE **SC ADMINISTRATION ONLY SC SCH (09:00)
[2024-11-23 11:45] VITALS: BP 118/67; TEMP 98.6; O2SAT 96
[2024-11-23 11:46] LABS: KETONE, URINE AUTO RFX NEGATIVE (NEGATIVE); LEUKOCYTE ESTERASE UR AUTO RFX 3+ (NEGATIVE); NITRITE, URINE AUTO RFX NEGATIVE (NEGATIVE); RBC, URINE AUTO RFX 126 /HPF (0-3); SQUAM EPITHELIAL CELL UR AURFX 1 /HPF (0-6); WBC, URINE AUTO RFX TNTC /HPF (0-3); YEAST LIKE CELL URINE AUTO RFX SMALL
[2024-11-23 16:00] VITALS: BP 122/66; TEMP 96.8; O2SAT 100
[2024-11-23] MEDS: PREGABALIN 100 MG CAP (LYRICA) PO ONE (18:39)
[2024-11-23 20:00] VITALS: BP 132/59; TEMP 97.2; O2SAT 96
[2024-11-23] MEDS ORDERED: traZODone 100 MG TAB PO SCH (21:00)
[2024-11-23] MEDS: QUEtiapine FUMARATE 50MG TAB PO SCH (22:10)
[2024-11-23] MEDS: RAMELTEON 8 MG TAB (ROZEREM) PO PRN (23:40)
[2024-11-24] VITALS: BP 132/64; TEMP 97.5; O2SAT 96
[2024-11-24 04:00] VITALS: BP 128/61; TEMP 96.8; O2SAT 94
[2024-11-24] MEDS ORDERED: oxyCODONE 20MG CR TAB PO SCH (06:00)
[2024-11-24 06:24] LABS: BASO % 0.9 % (0.0-1.0); EOS # 0.1 10^3/uL (0.0-0.5); EOS % 3.7 % (0.0-3.0); HEMATOCRIT 23.9 % (36.0-47.0); HEMOGLOBIN 7.5 g/dl (12.0-15.5); LYMPH # 1.1 10^3/uL (1.5-5.0); LYMPH % 52.3 % (24.0-44.0); MEAN CORPUSCULAR HGB CONC 31.4 g/dl (32.0-36.5); MEAN CORPUSCULAR VOLUME 95.6 fl (80.0-96.0); MONO # 0.2 10^3/uL (0.0-0.8); MONO % 9.8 % (2.0-8.0); NEUTROPHILS % 32.8 % (36.0-66.0); PLATELET COUNT, AUTOMATED 209 10^3/uL (150-450); WHITE BLOOD COUNT 2.1 10^3/uL (4.0-10.0)
[2024-11-24 06:28] LABS: NEUTROPHILS # 0.7 10^3/uL (1.5-8.5)
[2024-11-24 06:50] LABS: CALCIUM LEVEL 8.2 MG/DL (8.3-10.6); CREATININE FOR GFR 1.08 MG/DL (0.55-1.30); GLOMERULAR FILTRATION RATE 51.9 (>32)
[2024-11-24 08:00] VITALS: BP 131/60; TEMP 98; O2SAT 97
[2024-11-24] MEDS: CYCLOBENZAPRINE 10MG TABLET PO SCH (08:43)
[2024-11-24] MEDS ORDERED: PREGABALIN 50 MG CAP (LYRICA) PO SCH (09:00)
[2024-11-24] MEDS ORDERED: CYCLOBENZAPRINE 10MG TABLET PO SCH (09:00)
[2024-11-24] MEDS: PREGABALIN 100 MG CAP (LYRICA) PO SCH ×2 (09:10→20:41)
[2024-11-24 12:00] VITALS: BP 150/86; TEMP 96.8; O2SAT 96
[2024-11-24] MEDS ORDERED: oxyCODONE 5MG TAB PO SCH (14:00)
[2024-11-24 16:00] VITALS: BP 147/65; TEMP 96.8; O2SAT 97
[2024-11-24] MEDS: FILGRASTIM 300MCG 0.5ML SYRINGE **SC ADMINISTRATION ONLY SC SCH (16:55)
[2024-11-24 20:26] VITALS: BP 127/59; TEMP 97.5; O2SAT 96
[2024-11-24] MEDS: oxyCODONE 5MG TAB PO SCH (20:41)
[2024-11-25] VITALS (11 sets, daily range): BP systolic 102–152; BP diastolic 52–63; TEMP 97–98.4; O2SAT 94–99
[2024-11-25 06:05] LABS: BASO % 0.5 % (0.0-1.0); EOS # 0.1 10^3/uL (0.0-0.5); EOS % 2.9 % (0.0-3.0); HEMOGLOBIN 7.7 g/dl (12.0-15.5); LYMPH # 0.8 10^3/uL (1.5-5.0); MEAN CORPUSCULAR HEMOGLOBIN 30.3 pg (27.0-33.0); MEAN CORPUSCULAR HGB CONC 32.1 g/dl (32.0-36.5); MEAN CORPUSCULAR VOLUME 94.5 fl (80.0-96.0); MONO # 0.2 10^3/uL (0.0-0.8); MONO % 11.7 % (2.0-8.0); NEUTROPHILS % 46.4 % (36.0-66.0); PLATELET COUNT, AUTOMATED 238 10^3/uL (150-450); RED BLOOD COUNT 2.54 10^6/uL (4.00-5.40); WHITE BLOOD COUNT 2.1 10^3/uL (4.0-10.0)
[2024-11-25 07:11] LABS: CALCIUM LEVEL 8.2 MG/DL (8.3-10.6); CREATININE FOR GFR 1.01 MG/DL (0.55-1.30); GLOMERULAR FILTRATION RATE 56.3 (>32); POTASSIUM SERUM 4.5 MMOL/L (3.5-5.1)
[2024-11-25] MEDS: oxyCODONE 5MG TAB PO ONE (07:45)
[2024-11-25] MEDS: oxyCODONE 5MG TAB PO SCH (12:03)
[2024-11-25] MEDS: traZODone 50 MG TAB PO SCH (21:23)
[2024-11-26] VITALS (7 sets, daily range): BP systolic 124–168; BP diastolic 58–86; TEMP 96.8–98.9; O2SAT 93–99
[2024-11-26 05:42] LABS: HEMATOCRIT 25.1 % (36.0-47.0); HEMOGLOBIN 8.3 g/dl (12.0-15.5); MEAN CORPUSCULAR HEMOGLOBIN 30.9 pg (27.0-33.0); MEAN CORPUSCULAR HGB CONC 33.1 g/dl (32.0-36.5); MEAN CORPUSCULAR VOLUME 93.3 fl (80.0-96.0); PLATELET COUNT, AUTOMATED 272 10^3/uL (150-450); RED BLOOD COUNT 2.69 10^6/uL (4.00-5.40); WHITE BLOOD COUNT 11.3 10^3/uL (4.0-10.0)
[2024-11-26 06:02] LABS: CALCIUM LEVEL 8.1 MG/DL (8.3-10.6); CREATININE FOR GFR 1.08 MG/DL (0.55-1.30); GLOMERULAR FILTRATION RATE 51.9 (>32); POTASSIUM SERUM 4.2 MMOL/L (3.5-5.1)
[2024-11-26 06:56] LABS: LYMPHOCYTES 9 % (16-44); MONOCYTES 4 % (0-5); NEUTROPHILS 73 % (28-66); PLATELET ESTIMATE NORMAL (NORMAL); POIKILOCYTOSIS 1+
[2024-11-26 06:57] LABS: ANISOCYTOSIS 3+; POLYCHROMASIA 1+
[2024-11-26] MEDS: HYDROMORPHONE HCL 0.5 MG/ 0.5 ML SYRINGE IV ONE (10:40)
[2024-11-26] MEDS: oxyCODONE 20MG CR TAB PO SCH (20:31)
[2024-11-26] MEDS: oxyCODONE 5MG TAB PO PRN (21:35)
[2024-11-27] VITALS (10 sets, daily range): BP systolic 110–165; BP diastolic 54–66; TEMP 96.3–97.9; O2SAT 94–99
[2024-11-27 08:22] LABS: BASO % 0.4 % (0.0-1.0); EOS # 0.1 10^3/uL (0.0-0.5); EOS % 2.2 % (0.0-3.0); HEMATOCRIT 24.7 % (36.0-47.0); HEMOGLOBIN 7.9 g/dl (12.0-15.5); LYMPH # 1.1 10^3/uL (1.5-5.0); LYMPH % 21.8 % (24.0-44.0); MEAN CORPUSCULAR HEMOGLOBIN 30.5 pg (27.0-33.0); MEAN CORPUSCULAR VOLUME 95.4 fl (80.0-96.0); MONO # 0.5 10^3/uL (0.0-0.8); MONO % 9.2 % (2.0-8.0); NEUTROPHILS # 3.3 10^3/uL (1.5-8.5); NEUTROPHILS % 65.4 % (36.0-66.0); PLATELET COUNT, AUTOMATED 226 10^3/uL (150-450); RED BLOOD COUNT 2.59 10^6/uL (4.00-5.40)
[2024-11-27 08:56] LABS: ALBUMIN 2.5 G/DL (3.2-5.2); BILIRUBIN,TOTAL 0.3 MG/DL (0.3-1.2); CALCIUM LEVEL 8.3 MG/DL (8.3-10.6); CREATININE FOR GFR 1.13 MG/DL (0.55-1.30); GLOMERULAR FILTRATION RATE 49.2 (>32); POTASSIUM SERUM 4.3 MMOL/L (3.5-5.1); TOTAL PROTEIN 6.4 G/DL (5.7-8.2)
[2024-11-27] MEDS: SODIUM CHLORIDE 0.9% 1000 ML XX ONE (15:35)
[2024-11-27] MEDS: NS (Normal Saline) 0.9% 1,000 ML IV SCH (15:35)
[2024-11-27] MEDS: MIDAZOLAM INJ 2MG/2ML VIAL IV PRN (16:06)
[2024-11-27] MEDS: fentaNYL 100 MCG/2 ML INJECTION IV PRN (16:06)
[2024-11-27] MEDS ORDERED: diphenhydrAMINE 50MG/ML VIAL As Ordered ONE (16:32)
[2024-11-27] MEDS: diphenhydrAMINE 50MG/ML VIAL IV STA (16:37)
[2024-11-27] MEDS: ROPIvacaine 0.5% 30ML VIAL PN ONE (16:49)
[2024-11-27] MEDS: dexAMETHasone 20MG/5ML VIAL IM ONE (16:49)
[2024-11-27] MEDS: ISOVUE-300 61% 100ML VIAL IV ONE (17:11)
[2024-11-27] MEDS: LIDOCAINE 1% MDV 20ML VIAL SC ONE (17:12)
[2024-11-28 05:34] VITALS: BP 143/72; TEMP 96.5; O2SAT 95
[2024-11-28 08:00] VITALS: BP 102/72; TEMP 96.8; O2SAT 98
[2024-11-28 12:00] VITALS: BP 121/75; TEMP 97.9; O2SAT 98
== END 2024-11-28 15:52 | disposition home or self-care (01) | DRG 659 ==
LOC: EDBD 15:25 → M ED 15:25 → M ED INP 19:34 → M MSPAV 21:00
PROVIDERS: ADMIT Family Medicine; ATTEND Student in an Organized Health Care Education/Training Program
PROC: 0T788DZ Dilation of Bilateral Ureters with Intraluminal Device, Via Natural or Artificial Opening Endoscopic (ICD-10-PCS; principal; 2024-11-27 14:00)
PROC: 0TP98DZ Removal of Intraluminal Device from Ureter, Via Natural or Artificial Opening Endoscopic (ICD-10-PCS; 2024-11-27 14:00)
DX: N10 Acute pyelonephritis (principal); I50.33 Acute on chronic diastolic (congestive) heart failure; T83.518A Infection and inflammatory reaction due to other urinary catheter, initial encounter; N13.6 Pyonephrosis; D64.9 Anemia, unspecified; D46.9 Myelodysplastic syndrome, unspecified; E11.40 Type 2 diabetes mellitus with diabetic neuropathy, unspecified; I11.0 Hypertensive heart disease with heart failure; G40.909 Epilepsy, unspecified, not intractable, without status epilepticus; J45.909 Unspecified asthma, uncomplicated; E03.9 Hypothyroidism, unspecified; G25.81 Restless legs syndrome; K76.0 Fatty (change of) liver, not elsewhere classified; E78.5 Hyperlipidemia, unspecified; I25.10 Atherosclerotic heart disease of native coronary artery without angina pectoris; I49.5 Sick sinus syndrome; I48.91 Unspecified atrial fibrillation; E83.42 Hypomagnesemia; R53.1 Weakness; K21.9 Gastro-esophageal reflux disease without esophagitis; N31.9 Neuromuscular dysfunction of bladder, unspecified; Z95.0 Presence of cardiac pacemaker; R74.01 Elevation of levels of liver transaminase levels; N17.9 Acute kidney failure, unspecified; B96.1 Klebsiella pneumoniae [K. pneumoniae] as the cause of diseases classified elsewhere; B95.5 Unspecified streptococcus as the cause of diseases classified elsewhere; B95.62 Methicillin resistant Staphylococcus aureus infection as the cause of diseases classified elsewhere; Z88.7 Allergy status to serum and vaccine; Z88.2 Allergy status to sulfonamides; Z88.8 Allergy status to other drugs, medicaments and biological substances; Z79.899 Other long term (current) drug therapy

== ENCOUNTER → 2024-11-30 | Outpatient (CLI) | payer MEDICARE, BC ==
[2024-11-30 15:22] LABS: RSV AMPLIFICATION NEGATIVE (NEGATIVE)
== END ==
LOC: M RAD 10:26
PROVIDERS: ATTEND Internal Medicine
DX: R05.9 Cough, unspecified (principal); R50.9 Fever, unspecified

== ENCOUNTER 2024-12-02 20:20 | Emergency (ER) | payer MEDICARE, BC ==
[~2024-12-02] VITALS: Ht 160 cm; Wt 74.4 kg
[2024-12-02] MEDS: NS (Normal Saline) 0.9% 1,000 ML IV ONE (21:03)
[2024-12-02] MEDS: ACETAMINOPHEN *IV* 1,000 MG in IV 1 EA IV ONE (21:03)
[2024-12-02 21:06] LABS: BASO % 0.3 % (0.0-1.0); EOS % 0.3 % (0.0-3.0); HEMATOCRIT 26.8 % (36.0-47.0); HEMOGLOBIN 8.7 g/dl (12.0-15.5); LYMPH # 0.9 10^3/uL (1.5-5.0); LYMPH % 25.8 % (24.0-44.0); MEAN CORPUSCULAR HEMOGLOBIN 30.4 pg (27.0-33.0); MEAN CORPUSCULAR HGB CONC 32.5 g/dl (32.0-36.5); MEAN CORPUSCULAR VOLUME 93.7 fl (80.0-96.0); MONO # 0.6 10^3/uL (0.0-0.8); MONO % 15.6 % (2.0-8.0); NEUTROPHILS % 54.9 % (36.0-66.0); PLATELET COUNT, AUTOMATED 265 10^3/uL (150-450); RED BLOOD COUNT 2.86 10^6/uL (4.00-5.40); WHITE BLOOD COUNT 3.6 10^3/uL (4.0-10.0)
[2024-12-02 21:21] LABS: KETONE, URINE AUTO RFX NEGATIVE (NEGATIVE); MUCUS, URINE RFX SMALL (NEGATIVE); NITRITE, URINE AUTO RFX NEGATIVE (NEGATIVE); RBC, URINE AUTO RFX 37 /HPF (0-3); SQUAM EPITHELIAL CELL UR AURFX 1 /HPF (0-6); YEAST LIKE CELL URINE AUTO RFX MODERATE
[2024-12-02 21:24] LABS: LEUKOCYTE ESTERASE UR AUTO RFX 3+ (NEGATIVE); WBC, URINE AUTO RFX 46 /HPF (0-3)
[2024-12-02 21:33] LABS: ALBUMIN 2.9 G/DL (3.2-5.2); BILIRUBIN,TOTAL 0.4 MG/DL (0.3-1.2); CALCIUM LEVEL 8.3 MG/DL (8.3-10.6); CREATININE FOR GFR 1.28 MG/DL (0.55-1.30); GLOMERULAR FILTRATION RATE 42.4 (>32); MAGNESIUM LEVEL 1.6 MG/DL (1.8-2.4); POTASSIUM SERUM 4.7 MMOL/L (3.5-5.1)
[2024-12-02] MEDS: CEFEPIME HCL 2 GM in DEXTROSE 5% (D5W) ADV/MINI-BAG 50 ML IV ONE (21:56)
[2024-12-02] MEDS: diazePAM 10MG/2ML SYRINGE IV ONE (22:10)
[2024-12-02] MEDS: oxyCODONE 5MG TAB PO ONE (22:51)
[2024-12-03] MEDS: KETOROLAC 30 MG/ML 1ML VIAL IV ONE (00:15)
[2024-12-03] MEDS: METHOCARBAMOL 1,000 MG/10 ML VIAL IV ONE (00:15)
[2024-12-03] MEDS ORDERED: DEXTROMETHORPHAN 60MG/10ML SUSP 90ML BTL(DELSYM) PO PRN (02:10)
[2024-12-03] MEDS ORDERED: MOM 30ML SUSPENSION UDC PO PRN (02:10)
[2024-12-03] MEDS ORDERED: DICLOFENAC EPOLAMINE 1.3% PATCH TOP PRN (02:10)
[2024-12-03] MEDS ORDERED: MAALOX 30 ML SUSP *UDC PO PRN (02:10)
[2024-12-03] MEDS ORDERED: LEVALBUTEROL 1.25 MG 0.5ML CONCENTRATE NEB INH PRN (02:10)
[2024-12-03] MEDS ORDERED: traZODone 50 MG TAB PO PRN (02:10)
[2024-12-03] MEDS ORDERED: HOME MED LIST COMPLETE! XX SCH (02:45)
[2024-12-03] MEDS: MAGNESIUM OXIDE 400MG TAB (MAG-OX) PO SCH (03:49)
[2024-12-03] MEDS: ACETAMINOPHEN *IV* 1,000 MG in IV 1 EA IV ONE (03:49)
[2024-12-03] MEDS ORDERED: FLUTICASONE PROP 0.05% NASAL SPRAY 16 GM (FLONASE) NARES PRN (04:05)
[2024-12-03] MEDS ORDERED: NITROGLYCERIN 0.4MG SUBL TABLET SL PRN (04:05)
[2024-12-03] MEDS: LEVOTHYROXINE 50MCG TABLET (0.05MG) PO SCH (05:35)
[2024-12-03] MEDS: methocarbamoL 750 MG TAB PO PRN (05:35)
[2024-12-03] MEDS: QUEtiapine FUMARATE 12.5 MG HALF-TAB PO SCH (05:35)
[2024-12-03] MEDS: METOPROLOL SUCC *XL* 12.5MG PER 1/2 TAB (TopROL *XL*) PO SCH (05:36)
[2024-12-03] MEDS ORDERED: ACETAMINOPHEN 325 MG TAB PO PRN (07:00)
[2024-12-03] MEDS ORDERED: oxyCODONE 20MG CR TAB PO SCH (09:00)
[2024-12-03 10:54] VITALS: BP 198/90
[2024-12-03] MEDS: FUROSEMIDE 20 MG TAB PO SCH (10:54)
[2024-12-03] MEDS: PANTOPRAZOLE 40MG TAB (PROTONIX) PO SCH (10:54)
[2024-12-03] MEDS: PREGABALIN 100 MG CAP (LYRICA) PO SCH (10:54)
[2024-12-03] MEDS: DOCUSATE SODIUM 100MG CAPSULE PO SCH (10:54)
[2024-12-03] MEDS: SENNA 8.6 MG TAB (SENOKOT) PO SCH (10:55)
[2024-12-03 11:12] VITALS: BP 181/70; TEMP 98.3; O2SAT 99
[2024-12-03] MEDS ORDERED: oxyCODONE 5MG TAB PO SCH (15:00)
[2024-12-04] MEDS ORDERED: SODIUM CHLORIDE 0.9% INJ 10 ML SYR IV SCH (09:00)
== END 2024-12-03 11:26 | disposition home or self-care (01) ==
LOC: M ED 20:20 → EDBD 20:20 → M ED 12-03 11:26
DX: J06.9 Acute upper respiratory infection, unspecified (principal); B34.2 Coronavirus infection, unspecified; M25.511 Pain in right shoulder; I25.2 Old myocardial infarction; K21.9 Gastro-esophageal reflux disease without esophagitis; M79.7 Fibromyalgia; E78.5 Hyperlipidemia, unspecified; E03.9 Hypothyroidism, unspecified; I10 Essential (primary) hypertension; Z79.899 Other long term (current) drug therapy; Z88.1 Allergy status to other antibiotic agents; Z88.7 Allergy status to serum and vaccine; Z88.8 Allergy status to other drugs, medicaments and biological substances; Z91.048 Other nonmedicinal substance allergy status; Z86.79 Personal history of other diseases of the circulatory system
CPT/HCPCS: 71045; 72125; 73030; 80047; 80053; 81001; 83605; 83735; 85025; 87040; 87088; 87486; 87507; 87581; 87633; 87798; 96365; 96366; 96367; 96375; 99284; J0131; J0692; J1642; J1885; J2800; J3360

== ENCOUNTER 2024-12-12 13:48 | Inpatient (IN) | payer MEDICARE, BC ==
[~2024-12-12] VITALS: Ht 160 cm; Wt 77.0 kg
[~2024-12-12 13:48] MED LIST changes: +PREG-35 PO; -PREG100CA PO
[2024-12-12] MEDS: IPRATROPIUM 0.5MG/ALBUTEROL 2.5MG INH SOL UD 3ML NEB PRN (14:51)
[2024-12-12 15:05] LABS: VENOUS BASE EXCESS -1.1 (-2.0-2.0); VENOUS O2 SATURATION 78.9 % (60.0-80.0); VENOUS PARTIAL PRESSURE CO2 35.3 mmHg (38.0-50.0); VENOUS PARTIAL PRESSURE O2 41.8 mmHg (30.0-50.0); VENOUS PH 7.432 UNITS (7.330-7.430); VENOUS STANDARD HCO3 23.3 MMOL/L; VENOUS TOTAL CO2 24.1 MMOL/L (24.0-28.0)
[2024-12-12] MEDS: methylPREDNISolone 125MG 2ML VIAL IV ONE (15:06)
[2024-12-12] MEDS: ASPIRIN 81MG CHEW TABLET PO ONE (15:06)
[2024-12-12] MEDS: NS (Normal Saline) 0.9% 1,000 ML IV SCH (15:07)
[2024-12-12 15:18] LABS: BASO % 0.3 % (0.0-1.0); EOS % 0.6 % (0.0-3.0); LYMPH # 0.2 10^3/uL (1.5-5.0); LYMPH % 7.3 % (24.0-44.0); MEAN CORPUSCULAR HEMOGLOBIN 31.2 pg (27.0-33.0); MEAN CORPUSCULAR HGB CONC 32.1 g/dl (32.0-36.5); MEAN CORPUSCULAR VOLUME 97.2 fl (80.0-96.0); MONO # 0.5 10^3/uL (0.0-0.8); MONO % 14.7 % (2.0-8.0); NEUTROPHILS # 2.5 10^3/uL (1.5-8.5); NEUTROPHILS % 75.9 % (36.0-66.0); PLATELET COUNT, AUTOMATED 378 10^3/uL (150-450); RED BLOOD COUNT 2.15 10^6/uL (4.00-5.40); WHITE BLOOD COUNT 3.3 10^3/uL (4.0-10.0)
[2024-12-12 15:22] LABS: HEMATOCRIT 20.9 % (36.0-47.0); HEMOGLOBIN 6.7 g/dl (12.0-15.5)
[2024-12-12 15:30] LABS: INR 1.1; PROTHROMBIN TIME 14.5 SECONDS (12.5-14.5)
[2024-12-12 15:35] LABS: CPK CREATINE PHOSPHOKINASE 21 U/L (34-145)
[2024-12-12 15:36] LABS: ALBUMIN 2.8 G/DL (3.2-5.2); ALKALINE PHOSPHATASE 90 U/L (35-104); ALT/SGPT 13 U/L (7.0-40); AST/SGOT 9 U/L (<34); BILIRUBIN,DIRECT 0.3 MG/DL (<0.4); BILIRUBIN,TOTAL 0.5 MG/DL (0.3-1.2); BLOOD UREA NITROGEN 52 MG/DL (9-23); CALCIUM LEVEL 8.4 MG/DL (8.3-10.6); CARBON DIOXIDE LEVEL 24 MMOL/L (20-31); CHLORIDE LEVEL 99 MMOL/L (98-107); CK-MB VALUE MASS < 1.0 NG/ML (<3.6); CREATININE FOR GFR 2.42 MG/DL (0.55-1.30); GLOMERULAR FILTRATION RATE 19.7 (>32); GLUCOSE, FASTING 299 MG/DL (74-106); MB/CK RELATIVE INDEX 4.76 (< OR =4); POTASSIUM SERUM 5.3 MMOL/L (3.5-5.1); SODIUM LEVEL 136 MMOL/L (136-145); TOTAL PROTEIN 6.8 G/DL (5.7-8.2)
[2024-12-12] MEDS: NS (Normal Saline) 0.9% 1,000 ML IV ONE ×2 (16:27→22:35)
[2024-12-12 16:33] LABS: KETONE, URINE AUTO RFX NEGATIVE (NEGATIVE); MUCUS, URINE RFX SMALL (NEGATIVE); NITRITE, URINE AUTO RFX NEGATIVE (NEGATIVE); RBC, URINE AUTO RFX 43 /HPF (0-3); SQUAM EPITHELIAL CELL UR AURFX 3 /HPF (0-6); YEAST LIKE CELL URINE AUTO RFX SMALL
[2024-12-12 16:37] LABS: LEUKOCYTE ESTERASE UR AUTO RFX 3+ (NEGATIVE); WBC, URINE AUTO RFX TNTC /HPF (0-3)
[2024-12-12] MEDS ORDERED: PRED10TA2 PO (17:09)
[2024-12-12] MEDS ORDERED: AZIT-12 PO (17:09)
[2024-12-12] MEDS ORDERED: DICY-61 PO (17:11)
[2024-12-12] MEDS ORDERED: HOME MED LIST COMPLETE! XX SCH (17:15)
[2024-12-12 17:30] VITALS: BP 120/60; TEMP 99; O2SAT 95
[2024-12-12 17:49] VITALS: BP 132/64; TEMP 99.2; O2SAT 96
[2024-12-12] MEDS ORDERED: MEROPENEM INJ 1 GM in IV 1 EA IV SCH (18:45)
[2024-12-12] MEDS ORDERED: VANCOMYCIN HCL 1 MG in IV FLUID PLACE HOLDER 1 EA IV SCH (18:45)
[2024-12-12] MEDS ORDERED: FLUTICASONE PROP 0.05% NASAL SPRAY 16 GM (FLONASE) NARES PRN (18:45)
[2024-12-12] MEDS ORDERED: GLUCOSE 4 GM CHEW PO PRN (19:25)
[2024-12-12] MEDS ORDERED: GLUCAGON INJ 1MG VIAL SC PRN (19:25)
[2024-12-12] MEDS ORDERED: DEXTROSE 50% 50ML SYRINGE IV PRN (19:25)
[2024-12-12 19:34] VITALS: BP 121/76; TEMP 98.5; O2SAT 97
[2024-12-12 19:53] LABS: PROCALCITONIN 0.31 ng/ml
[2024-12-12 20:37] VITALS: BP 128/56; TEMP 97.3; O2SAT 97
[2024-12-12] MEDS ORDERED: PILL CUTTER 1 EACH XX ONE (20:53)
[2024-12-12] MEDS: PREGABALIN 100 MG CAP (LYRICA) PO SCH (20:55)
[2024-12-12] MEDS: SENOKOT S TAB PO SCH (20:55)
[2024-12-12] MEDS: MAGNESIUM OXIDE 400MG TAB (MAG-OX) PO SCH (20:55)
[2024-12-12] MEDS: CYCLOBENZAPRINE 5MG TABLET PO SCH (20:56)
[2024-12-12] MEDS: PANTOPRAZOLE 40MG TAB (PROTONIX) PO SCH (20:56)
[2024-12-12] MEDS: QUEtiapine FUMARATE 25 MG TAB PO SCH (20:56)
[2024-12-12] MEDS: oxyCODONE 5MG TAB PO SCH (20:57)
[2024-12-12] MEDS: oxyCODONE 20MG CR TAB PO SCH (20:57)
[2024-12-12] MEDS: traZODone 100 MG TAB PO SCH (20:58)
[2024-12-12] MEDS: METOPROLOL SUCC *XL* 25MG TAB (TopROL *XL*) PO SCH (20:58)
[2024-12-12] MEDS: cefTRIAXone SOD 1 GM in DEXTROSE 5% (D5W) ADV/MINI-BAG 50 ML IV ONE (20:58)
[2024-12-12] MEDS: INSULIN LISPRO (NovoLOG) PER UNIT SC SCH (21:53)
[2024-12-12] MEDS: MEROPENEM INJ 500 MG in IV 1 EA IV SCH (21:53)
[2024-12-12] MEDS: VANCOMYCIN HCL 1,250 MG, VIAL MATE ADAPTER 1 EACH in NS 250 ML IV ONE (22:44)
[2024-12-13] VITALS (9 sets, daily range): BP systolic 116–169; BP diastolic 61–93; TEMP 97.7–98.6; O2SAT 92–97
[2024-12-13] MEDS: CHLORASEPTIC SPRAY MT PRN (04:24)
[2024-12-13 05:38] LABS: HEMATOCRIT 25.6 % (36.0-47.0); HEMOGLOBIN 8.6 g/dl (12.0-15.5); LYMPH # 0.4 10^3/uL (1.5-5.0); LYMPH % 9.9 % (24.0-44.0); MEAN CORPUSCULAR HEMOGLOBIN 31.4 pg (27.0-33.0); MEAN CORPUSCULAR HGB CONC 33.6 g/dl (32.0-36.5); MEAN CORPUSCULAR VOLUME 93.4 fl (80.0-96.0); MONO # 0.3 10^3/uL (0.0-0.8); MONO % 8.1 % (2.0-8.0); NEUTROPHILS % 79.8 % (36.0-66.0); PLATELET COUNT, AUTOMATED 305 10^3/uL (150-450); RED BLOOD COUNT 2.74 10^6/uL (4.00-5.40); WHITE BLOOD COUNT 3.7 10^3/uL (4.0-10.0)
[2024-12-13 06:04] LABS: ALBUMIN 2.6 G/DL (3.2-5.2); CALCIUM LEVEL 7.8 MG/DL (8.3-10.6); CREATININE FOR GFR 2.08 MG/DL (0.55-1.30); GLOMERULAR FILTRATION RATE 23.7 (>32); MAGNESIUM LEVEL 1.9 MG/DL (1.8-2.4); POTASSIUM SERUM 6.1 MMOL/L (3.5-5.1)
[2024-12-13] MEDS: DEXTROSE 50% 50ML SYRINGE IV STA (06:17)
[2024-12-13] MEDS: HumuLIN R (REGULAR) INSULIN (NovoLIN R) **100U/ML** PER UNIT IV STA (06:18)
[2024-12-13] MEDS: LEVOTHYROXINE 50MCG TABLET (0.05MG) PO SCH (06:18)
[2024-12-13] MEDS: CALCIUM GLUCONATE 1,000 MG in DEXTROSE 5% (D5W) MINI-BAG PLU 100 ML IV ONE (06:32)
[2024-12-13] MEDS: SOD POLYSTYRENE SULFONATE SUSP 15GM 60ML UD PO SCH (06:45)
[2024-12-13] MEDS: INSULIN LISPRO (NovoLOG) PER UNIT SC SCH (09:15)
[2024-12-13] MEDS: CALCITRIOL 0.25 MCG CAP (S0169) PO SCH (09:16)
[2024-12-13] MEDS: VANCOMYCIN HCL 750 MG, VIAL MATE ADAPTER 1 EACH in NS 250 ML IV SCH (12:26)
[2024-12-13 12:49] LABS: POTASSIUM SERUM 4.7 MMOL/L (3.5-5.1)
[2024-12-13] MEDS: SODIUM BICARBONATE 75 MEQ in NS 0.45% 1,000 ML IV SCH (15:45)
[2024-12-13 15:47] LABS: PROCALCITONIN 0.25 ng/ml
[2024-12-13] MEDS: IPRATROPIUM 0.5MG/ALBUTEROL 2.5MG INH SOL UD 3ML NEB SCH (20:07)
[2024-12-13] MEDS: cefTRIAXone SOD 1 GM in DEXTROSE 5% (D5W) ADV/MINI-BAG 50 ML IV SCH (20:32)
[2024-12-14] VITALS (7 sets, daily range): BP systolic 138–161; BP diastolic 55–73; TEMP 97.3–98.1; O2SAT 92–94
[2024-12-14] MEDS ORDERED: NALOXONE INJ 0.4MG/1ML VIAL IV PRN (01:20)
[2024-12-14] MEDS ORDERED: HYDROMORPHONE HCL 0.5 MG/ 0.5 ML SYRINGE IV PRN (01:20)
[2024-12-14] MEDS: HYDROMORPHONE HCL 0.5 MG/ 0.5 ML SYRINGE IV PRN (01:39)
[2024-12-14] MEDS: ACETAMINOPHEN *IV* 1,000 MG in IV 1 EA IV ONE (01:40)
[2024-12-14 06:04] LABS: BASO % 0.3 % (0.0-1.0); EOS % 0.6 % (0.0-3.0); HEMATOCRIT 22.7 % (36.0-47.0); HEMOGLOBIN 7.6 g/dl (12.0-15.5); LYMPH % 30.6 % (24.0-44.0); MEAN CORPUSCULAR HEMOGLOBIN 31.9 pg (27.0-33.0); MEAN CORPUSCULAR HGB CONC 33.5 g/dl (32.0-36.5); MEAN CORPUSCULAR VOLUME 95.4 fl (80.0-96.0); MONO # 0.5 10^3/uL (0.0-0.8); MONO % 13.8 % (2.0-8.0); NEUTROPHILS # 1.7 10^3/uL (1.5-8.5); NEUTROPHILS % 53.2 % (36.0-66.0); PLATELET COUNT, AUTOMATED 262 10^3/uL (150-450); RED BLOOD COUNT 2.38 10^6/uL (4.00-5.40); WHITE BLOOD COUNT 3.3 10^3/uL (4.0-10.0)
[2024-12-14 06:35] LABS: ALBUMIN 2.3 G/DL (3.2-5.2); CALCIUM LEVEL 7.7 MG/DL (8.3-10.6); CREATININE FOR GFR 1.46 MG/DL (0.55-1.30); GLOMERULAR FILTRATION RATE 36.2 (>32); MAGNESIUM LEVEL 1.5 MG/DL (1.8-2.4); POTASSIUM SERUM 3.8 MMOL/L (3.5-5.1)
[2024-12-14 08:49] LABS: C REACTIVE PROTEIN QUANTITATIV 3.96 MG/DL (<1.0)
[2024-12-14] MEDS: SODIUM CHLORIDE 0.9% INJ 10 ML SYR IV SCH (09:00)
[2024-12-14] MEDS: MAG SULF 1GM/100ML (MAG RUN) 1 GM in IV 1 EA IV SCH (09:55)
[2024-12-14] MEDS: ACETAMINOPHEN 325 MG TAB PO PRN (10:35)
[2024-12-14] MEDS: CYCLOBENZAPRINE 10MG TABLET PO SCH (10:39)
[2024-12-14] MEDS: LR 1,000 ML IV SCH (12:22)
[2024-12-14 12:33] LABS: HEMATOCRIT 24.7 % (36.0-47.0); HEMOGLOBIN 8.1 g/dl (12.0-15.5); MEAN CORPUSCULAR HGB CONC 32.8 g/dl (32.0-36.5); MEAN CORPUSCULAR VOLUME 94.6 fl (80.0-96.0); PLATELET COUNT, AUTOMATED 277 10^3/uL (150-450); RED BLOOD COUNT 2.61 10^6/uL (4.00-5.40); WHITE BLOOD COUNT 3.8 10^3/uL (4.0-10.0)
[2024-12-14] MEDS ORDERED: guaiFENesin 200 MG TAB PO PRN (15:20)
[2024-12-14] MEDS: guaiFENesin 200 MG TAB PO PRN (15:42)
[2024-12-14] MEDS: traZODone 50 MG TAB PO SCH (22:03)
[2024-12-15] VITALS (7 sets, daily range): BP systolic 147–175; BP diastolic 54–81; TEMP 97.2–97.9; O2SAT 92–97
[2024-12-15 06:48] LABS: BASO % 0.4 % (0.0-1.0); EOS % 1.6 % (0.0-3.0); HEMOGLOBIN 8.1 g/dl (12.0-15.5); LYMPH # 0.9 10^3/uL (1.5-5.0); LYMPH % 35.7 % (24.0-44.0); MEAN CORPUSCULAR HEMOGLOBIN 31.3 pg (27.0-33.0); MEAN CORPUSCULAR HGB CONC 32.4 g/dl (32.0-36.5); MEAN CORPUSCULAR VOLUME 96.5 fl (80.0-96.0); MONO # 0.4 10^3/uL (0.0-0.8); MONO % 15.7 % (2.0-8.0); NEUTROPHILS # 1.1 10^3/uL (1.5-8.5); NEUTROPHILS % 44.2 % (36.0-66.0); PLATELET COUNT, AUTOMATED 287 10^3/uL (150-450); RED BLOOD COUNT 2.59 10^6/uL (4.00-5.40); WHITE BLOOD COUNT 2.5 10^3/uL (4.0-10.0)
[2024-12-15 06:58] LABS: ALBUMIN 2.3 G/DL (3.2-5.2); CREATININE FOR GFR 1.09 MG/DL (0.55-1.30); GLOMERULAR FILTRATION RATE 51.4 (>32); MAGNESIUM LEVEL 1.6 MG/DL (1.8-2.4); POTASSIUM SERUM 4.3 MMOL/L (3.5-5.1)
[2024-12-15] MEDS: MAG SULF 1GM/100ML (MAG RUN) 1 GM in IV 1 EA IV SCH (08:51)
[2024-12-15] MEDS: DICYCLOMINE 10 MG CAP PO PRN (09:01)
[2024-12-15] MEDS: SODIUM CHLORIDE HYPERTONIC 3% 4ML NEB SOL INH SCH (11:57)
[2024-12-15] MEDS: AUGMENTIN 875 MG TAB PO SCH (13:20)
[2024-12-15] MEDS: BENZONATATE 100MG CAPSULE PO PRN (13:20)
[2024-12-15] MEDS: predniSONE 20 MG TAB PO SCH (13:21)
[2024-12-15] MEDS: IPRATROPIUM 0.5MG/ALBUTEROL 2.5MG INH SOL UD 3ML NEB PRN (22:20)
[2024-12-16 03:15] VITALS: BP 146/53; TEMP 98.2; O2SAT 95
[2024-12-16] MEDS: SODIUM CHLORIDE 0.9% INJ 10 ML SYR IV PRN (06:40)
[2024-12-16 07:10] LABS: BASO % 0.4 % (0.0-1.0); HEMATOCRIT 24.8 % (36.0-47.0); HEMOGLOBIN 8.1 g/dl (12.0-15.5); LYMPH # 0.4 10^3/uL (1.5-5.0); LYMPH % 18.5 % (24.0-44.0); MEAN CORPUSCULAR HEMOGLOBIN 31.4 pg (27.0-33.0); MEAN CORPUSCULAR HGB CONC 32.7 g/dl (32.0-36.5); MEAN CORPUSCULAR VOLUME 96.1 fl (80.0-96.0); MONO # 0.2 10^3/uL (0.0-0.8); MONO % 9.3 % (2.0-8.0); NEUTROPHILS # 1.6 10^3/uL (1.5-8.5); NEUTROPHILS % 69.2 % (36.0-66.0); PLATELET COUNT, AUTOMATED 297 10^3/uL (150-450); RED BLOOD COUNT 2.58 10^6/uL (4.00-5.40); WHITE BLOOD COUNT 2.3 10^3/uL (4.0-10.0)
[2024-12-16 07:36] LABS: ALBUMIN 2.5 G/DL (3.2-5.2); CALCIUM LEVEL 8.2 MG/DL (8.3-10.6); CREATININE FOR GFR 0.99 MG/DL (0.55-1.30); GLOMERULAR FILTRATION RATE 57.6 (>32); MAGNESIUM LEVEL 1.7 MG/DL (1.8-2.4); PHOSPHORUS LEVEL 3.3 MG/DL (2.4-5.1); POTASSIUM SERUM 5.1 MMOL/L (3.5-5.1)
[2024-12-16 08:00] VITALS: BP 156/71; TEMP 97.9; O2SAT 96
[2024-12-16 12:00] VITALS: BP 162/81; TEMP 97.7; O2SAT 93
[2024-12-16] MEDS: HEPARIN SOD (PORCINE) 5000UNITS/ML 1ML VIAL/SYRINGE SQ SCH (13:01)
[2024-12-16 13:31] LABS: PERCENT SATURATION 52.9 % (13.2-45.0)
[2024-12-16 16:00] VITALS: BP 162/81; TEMP 97; O2SAT 3
[2024-12-16 20:11] VITALS: BP 158/76; TEMP 97.9; O2SAT 98
[2024-12-17 05:14] VITALS: BP 171/75; TEMP 97.7; O2SAT 92
[2024-12-17 06:56] LABS: BASO % 0.5 % (0.0-1.0); EOS % 0.5 % (0.0-3.0); HEMATOCRIT 24.1 % (36.0-47.0); HEMOGLOBIN 7.7 g/dl (12.0-15.5); LYMPH # 0.8 10^3/uL (1.5-5.0); LYMPH % 38.7 % (24.0-44.0); MEAN CORPUSCULAR HEMOGLOBIN 31.3 pg (27.0-33.0); MONO # 0.2 10^3/uL (0.0-0.8); MONO % 8.5 % (2.0-8.0); NEUTROPHILS % 47.6 % (36.0-66.0); PLATELET COUNT, AUTOMATED 291 10^3/uL (150-450); RED BLOOD COUNT 2.46 10^6/uL (4.00-5.40); WHITE BLOOD COUNT 2.1 10^3/uL (4.0-10.0)
[2024-12-17 07:43] LABS: ALBUMIN 2.6 G/DL (3.2-5.2); CALCIUM LEVEL 8.1 MG/DL (8.3-10.6); CREATININE FOR GFR 1.01 MG/DL (0.55-1.30); GLOMERULAR FILTRATION RATE 56.3 (>32); MAGNESIUM LEVEL 1.6 MG/DL (1.8-2.4); PHOSPHORUS LEVEL 3.9 MG/DL (2.4-5.1); POTASSIUM SERUM 4.5 MMOL/L (3.5-5.1)
[2024-12-17 08:00] VITALS: BP 164/80; TEMP 98.1; O2SAT 90
[2024-12-17] MEDS: MAG SULF 1GM/100ML (MAG RUN) 1 GM in IV 1 EA IV SCH (10:11)
[2024-12-17] MEDS: DARBEPOETIN 100MCG/0.5ML *NON-DIALYSIS* SYRINGE SC SCH (10:11)
[2024-12-17] MEDS: methylPREDNISolone 40MG 1ML VIAL IV SCH (10:14)
[2024-12-17 12:00] VITALS: BP 163/78; TEMP 98.6; O2SAT 97
[2024-12-17] MEDS: FUROSEMIDE 40MG/4ML VIAL IV ONE (13:34)
[2024-12-17 16:00] VITALS: BP 157/74; TEMP 97.5; O2SAT 95
[2024-12-17 20:00] VITALS: BP 146/70; TEMP 97.3; O2SAT 97
[2024-12-18 03:04] VITALS: O2SAT 91
[2024-12-18 05:53] VITALS: BP 168/74; TEMP 97.5; O2SAT 93
[2024-12-18 06:22] LABS: HEMATOCRIT 26.9 % (36.0-47.0); HEMOGLOBIN 8.6 g/dl (12.0-15.5); MEAN CORPUSCULAR VOLUME 97.1 fl (80.0-96.0); PLATELET COUNT, AUTOMATED 308 10^3/uL (150-450); RED BLOOD COUNT 2.77 10^6/uL (4.00-5.40); WHITE BLOOD COUNT 2.2 10^3/uL (4.0-10.0)
[2024-12-18 06:40] LABS: ALBUMIN 2.8 G/DL (3.2-5.2); CALCIUM LEVEL 8.6 MG/DL (8.3-10.6); CREATININE FOR GFR 0.91 MG/DL (0.55-1.30); GLOMERULAR FILTRATION RATE 63.8 (>32); MAGNESIUM LEVEL 1.7 MG/DL (1.8-2.4); PHOSPHORUS LEVEL 2.8 MG/DL (2.4-5.1); POTASSIUM SERUM 4.5 MMOL/L (3.5-5.1)
[2024-12-18 06:55] LABS: LYMPHOCYTES 16 % (16-44); METAMYELOCYTES 1 % (0-0); MONOCYTES 7 % (0-5); MYELOCYTES 3 % (0-0); NEUTROPHILS 72 % (28-66)
[2024-12-18 06:56] LABS: ANISOCYTOSIS 2+; PLATELET ESTIMATE NORMAL (NORMAL)
[2024-12-18 10:00] VITALS: BP 157/72; TEMP 98.6; O2SAT 95
[2024-12-18 12:27] VITALS: BP 154/74; TEMP 97.7; O2SAT 90
[2024-12-18 16:00] VITALS: BP 160/78; TEMP 98.1; O2SAT 93
[2024-12-18 20:44] VITALS: BP 162/70; TEMP 97.9; O2SAT 94
[2024-12-19] VITALS (7 sets, daily range): BP systolic 134–186; BP diastolic 56–89; TEMP 97.3–97.9; O2SAT 91–95
[2024-12-19 06:44] LABS: BASO % 0.8 % (0.0-1.0); HEMATOCRIT 27.7 % (36.0-47.0); HEMOGLOBIN 8.8 g/dl (12.0-15.5); LYMPH # 0.4 10^3/uL (1.5-5.0); LYMPH % 15.6 % (24.0-44.0); MEAN CORPUSCULAR HEMOGLOBIN 31.3 pg (27.0-33.0); MEAN CORPUSCULAR HGB CONC 31.8 g/dl (32.0-36.5); MEAN CORPUSCULAR VOLUME 98.6 fl (80.0-96.0); MONO # 0.2 10^3/uL (0.0-0.8); MONO % 7.4 % (2.0-8.0); NEUTROPHILS # 1.7 10^3/uL (1.5-8.5); NEUTROPHILS % 66.5 % (36.0-66.0); PLATELET COUNT, AUTOMATED 315 10^3/uL (150-450); RED BLOOD COUNT 2.81 10^6/uL (4.00-5.40); WHITE BLOOD COUNT 2.6 10^3/uL (4.0-10.0)
[2024-12-19 07:28] LABS: ALBUMIN 2.9 G/DL (3.2-5.2); CALCIUM LEVEL 8.5 MG/DL (8.3-10.6); CREATININE FOR GFR 0.93 MG/DL (0.55-1.30); GLOMERULAR FILTRATION RATE 62.1 (>32); MAGNESIUM LEVEL 1.7 MG/DL (1.8-2.4); PHOSPHORUS LEVEL 3.5 MG/DL (2.4-5.1); POTASSIUM SERUM 4.6 MMOL/L (3.5-5.1)
[2024-12-19] MEDS: FUROSEMIDE 20MG/2ML VIAL IV SCH (12:13)
[2024-12-19] MEDS: guaiFENesin ER TABLET 600 MG TAB PO SCH (12:16)
[2024-12-19] MEDS ORDERED: HYDROMORPHONE HCL 0.5 MG/ 0.5 ML SYRINGE IV PRN (13:40)
[2024-12-19] MEDS: NITROGLYCERIN 0.4MG SUBL TABLET SL PRN (17:48)
[2024-12-19] MEDS: HYDROMORPHONE HCL 0.5 MG/ 0.5 ML SYRINGE IV PRN (18:14)
[2024-12-20] VITALS (9 sets, daily range): BP systolic 133–198; BP diastolic 63–86; TEMP 97–97.7; O2SAT 85–99
[2024-12-20 05:56] LABS: HEMOGLOBIN 9.1 g/dl (12.0-15.5); MEAN CORPUSCULAR HEMOGLOBIN 31.6 pg (27.0-33.0); MEAN CORPUSCULAR HGB CONC 32.5 g/dl (32.0-36.5); MEAN CORPUSCULAR VOLUME 97.2 fl (80.0-96.0); PLATELET COUNT, AUTOMATED 295 10^3/uL (150-450); RED BLOOD COUNT 2.88 10^6/uL (4.00-5.40); WHITE BLOOD COUNT 3.1 10^3/uL (4.0-10.0)
[2024-12-20 06:17] LABS: CALCIUM LEVEL 8.3 MG/DL (8.3-10.6); CREATININE FOR GFR 0.95 MG/DL (0.55-1.30); GLOMERULAR FILTRATION RATE 60.6 (>32); POTASSIUM SERUM 4.4 MMOL/L (3.5-5.1)
[2024-12-20] MEDS: ACETAMINOPHEN 325 MG TAB PO SCH (14:18)
[2024-12-20 16:17] LABS: C REACTIVE PROTEIN QUANTITATIV 0.57 MG/DL (<1.0)
[2024-12-21 00:35] VITALS: BP 158/78
[2024-12-21 03:42] VITALS: BP 147/79; TEMP 97; O2SAT 95
[2024-12-21 05:45] LABS: HEMATOCRIT 25.9 % (36.0-47.0); HEMOGLOBIN 8.5 g/dl (12.0-15.5); MEAN CORPUSCULAR HEMOGLOBIN 31.7 pg (27.0-33.0); MEAN CORPUSCULAR HGB CONC 32.8 g/dl (32.0-36.5); MEAN CORPUSCULAR VOLUME 96.6 fl (80.0-96.0); PLATELET COUNT, AUTOMATED 268 10^3/uL (150-450); RED BLOOD COUNT 2.68 10^6/uL (4.00-5.40); WHITE BLOOD COUNT 2.9 10^3/uL (4.0-10.0)
[2024-12-21 06:11] LABS: CALCIUM LEVEL 8.4 MG/DL (8.3-10.6); CREATININE FOR GFR 1.16 MG/DL (0.55-1.30); GLOMERULAR FILTRATION RATE 47.7 (>32); POTASSIUM SERUM 4.2 MMOL/L (3.5-5.1)
[2024-12-21 07:45] VITALS: BP 160/77; TEMP 97.3; O2SAT 96
[2024-12-21] MEDS: FUROSEMIDE 20 MG TAB PO SCH (09:53)
[2024-12-21] MEDS ORDERED: AMOX875T2 PO (11:01)
[2024-12-21] MEDS ORDERED: PRED10TA2 PO (11:01)
[2024-12-21] MEDS ORDERED: DILA2TAB6 PO (11:01)
[2024-12-21 11:36] VITALS: BP 154/81; TEMP 97.9; O2SAT 95
== END 2024-12-21 13:36 | disposition home or self-care (01) | DRG 871 ==
LOC: M ED 13:48 → M ED INP 18:01 → M MSPAV 20:17
PROVIDERS: ADMIT Internal Medicine; ATTEND Student in an Organized Health Care Education/Training Program
PROC: 30233N1 Transfusion of Nonautologous Red Blood Cells into Peripheral Vein, Percutaneous Approach (ICD-10-PCS; principal; 2024-12-12)
DX: A41.9 Sepsis, unspecified organism (principal); J12.9 Viral pneumonia, unspecified; I50.32 Chronic diastolic (congestive) heart failure; I13.0 Hypertensive heart and chronic kidney disease with heart failure and stage 1 through stage 4 chronic kidney disease, or unspecified chronic kidney disease; N17.9 Acute kidney failure, unspecified; N25.81 Secondary hyperparathyroidism of renal origin; J45.901 Unspecified asthma with (acute) exacerbation; J44.1 Chronic obstructive pulmonary disease with (acute) exacerbation; I48.91 Unspecified atrial fibrillation; I49.5 Sick sinus syndrome; I25.10 Atherosclerotic heart disease of native coronary artery without angina pectoris; E78.5 Hyperlipidemia, unspecified; E87.5 Hyperkalemia; E11.22 Type 2 diabetes mellitus with diabetic chronic kidney disease; B34.2 Coronavirus infection, unspecified; E03.9 Hypothyroidism, unspecified; D46.9 Myelodysplastic syndrome, unspecified; G40.909 Epilepsy, unspecified, not intractable, without status epilepticus; N13.9 Obstructive and reflux uropathy, unspecified; J06.9 Acute upper respiratory infection, unspecified; Z96.0 Presence of urogenital implants; K21.9 Gastro-esophageal reflux disease without esophagitis; N18.31 Chronic kidney disease, stage 3a; E83.42 Hypomagnesemia; D63.1 Anemia in chronic kidney disease; G25.81 Restless legs syndrome; M54.9 Dorsalgia, unspecified; R07.89 Other chest pain; G89.29 Other chronic pain; M79.7 Fibromyalgia; Z90.79 Acquired absence of other genital organ(s); Z90.49 Acquired absence of other specified parts of digestive tract; Z98.41 Cataract extraction status, right eye; Z98.42 Cataract extraction status, left eye; Z95.0 Presence of cardiac pacemaker; Z86.73 Personal history of transient ischemic attack (TIA), and cerebral infarction without residual deficits; Z79.2 Long term (current) use of antibiotics; Z79.890 Hormone replacement therapy; Z79.891 Long term (current) use of opiate analgesic; Z79.899 Other long term (current) drug therapy; Z88.2 Allergy status to sulfonamides; Z88.8 Allergy status to other drugs, medicaments and biological substances; Z88.7 Allergy status to serum and vaccine; Z91.048 Other nonmedicinal substance allergy status; Z93.3 Colostomy status

== ENCOUNTER → 2025-02-25 | Outpatient (REF) | payer MEDICARE, BC ==
[~2025-02-25] MED LIST changes: +AMIT10TA11 PO; -AMIT10TA7 PO; +AMOX875T2 PO; +BACT400T PO; +CVS10CAP8 PO; +DILA2TAB6 PO; -MELA10CA2 PO; +PRAV20TA78 PO; +PREG100C2 PO
== END ==
LOC: M LAB REF 12:02
PROVIDERS: ATTEND Internal Medicine
DX: N39.0 Urinary tract infection, site not specified (principal)

== ENCOUNTER → 2025-02-28 | Outpatient (CLI) | payer MEDICARE, BC | LOC: M LAB 11:39 | PROVIDERS: ATTEND Internal Medicine | DX: D64.9 Anemia, unspecified (principal) ==

== ENCOUNTER → 2025-02-28 | Outpatient (REF) | payer MEDICARE, BC | LOC: M LAB REF 14:22 | PROVIDERS: ATTEND Internal Medicine | DX: N39.0 Urinary tract infection, site not specified (principal) ==

== ENCOUNTER 2025-03-01 09:12 | Outpatient (CLI) | payer MEDICARE, BC ==
[2025-03-01 09:50] VITALS: BP 134/66; TEMP 97.7; O2SAT 97
[2025-03-01 10:16] VITALS: BP 118/58; TEMP 98.5; O2SAT 96
[2025-03-01 11:54] VITALS: BP 180/74; TEMP 98.9; O2SAT 98
[2025-03-01 12:22] VITALS: BP 154/69; TEMP 98.4; O2SAT 100
[2025-03-01 13:20] VITALS: BP 148/88; TEMP 98.5
[2025-03-01] MEDS: HEPARIN LOCK FLUSH 100 UNITS/ML 3 ML SYRINGE IV SCH (14:14)
[2025-03-01] MEDS: SODIUM CHLORIDE 0.9% INJ 10 ML SYR IV SCH (14:14)
== END 2025-03-01 14:25 ==
LOC: M INFU 09:12
PROVIDERS: ATTEND Internal Medicine
DX: D64.9 Anemia, unspecified (principal); Z88.2 Allergy status to sulfonamides; Z88.7 Allergy status to serum and vaccine; Z88.8 Allergy status to other drugs, medicaments and biological substances; Z91.048 Other nonmedicinal substance allergy status
CPT/HCPCS: 36430; J1642; P9016

== ENCOUNTER → 2025-03-15 | Outpatient (CLI) | payer MEDICARE, BC ==
[~2025-03-15] MED LIST changes: +SENN-225 PO; -SENO8.6T5 PO
== END ==
LOC: M RAD 08:08
PROVIDERS: ATTEND Radiology Diagnostic Radiology
DX: N13.9 Obstructive and reflux uropathy, unspecified (principal); Z95.0 Presence of cardiac pacemaker; J98.11 Atelectasis; Z90.49 Acquired absence of other specified parts of digestive tract; K86.89 Other specified diseases of pancreas; D17.5 Benign lipomatous neoplasm of intra-abdominal organs; N26.1 Atrophy of kidney (terminal); N28.1 Cyst of kidney, acquired; Z93.3 Colostomy status; Z93.6 Other artificial openings of urinary tract status; Z98.1 Arthrodesis status

== ENCOUNTER → 2025-03-31 | Outpatient (CLI) | payer MEDICARE, BC | LOC: M LAB 13:00 | PROVIDERS: ATTEND Internal Medicine | DX: D64.9 Anemia, unspecified (principal) ==

== ENCOUNTER → 2025-04-01 | Outpatient (CLI) | payer MEDICARE, BC ==
[2025-04-01] VITALS (7 sets, daily range): BP systolic 112–160; BP diastolic 51–66; TEMP 97.8–98.8; O2SAT 94–99
[~2025-04-01] VITALS: Ht 170.2 cm; Wt 72.0 kg
[2025-04-01] MEDS: SODIUM CHLORIDE 0.9% INJ 10 ML SYR IV SCH (15:43)
[2025-04-01] MEDS: HEPARIN LOCK FLUSH 100 UNITS/ML 3 ML SYRINGE IV SCH (15:43)
== END ==
LOC: M INFU 08:54
PROVIDERS: ATTEND Internal Medicine
DX: D64.9 Anemia, unspecified (principal); Z88.2 Allergy status to sulfonamides; Z88.7 Allergy status to serum and vaccine; Z88.8 Allergy status to other drugs, medicaments and biological substances; Z91.048 Other nonmedicinal substance allergy status
CPT/HCPCS: 36430; J1642; P9016

== ENCOUNTER → 2025-04-19 | Outpatient (CLI) | payer MEDICARE, BC ==
[~2025-04-19] VITALS: Ht 162.6 cm; Wt 72.6 kg
[~2025-04-19] MED LIST changes: +ACET650T61 PO; +ACETAMINOPHEN 325 MG TAB PO PRN; +DICL100G10 TOP; +DICL3GEL2 TOP; +LIDOCAINE 2% 100 MG/5 ML SDV (FOR ANES.) As Ordered ONE; +MIDAZOLAM INJ 2 MG/2 ML VIAL As Ordered ONE; +MORPHINE 2 MG/ML 1 ML VIAL IV PRN; +NS (Normal Saline) 0.9% 1,000 ML IV SCH; +ONDANSETRON 4MG 2ML VIAL IV PRN; +PERCOCET 5MG/325MG TAB PO PRN
[2025-04-19 12:30] VITALS: TEMP 97
[2025-04-19] MEDS: CIPROFLOXACIN 400 MG in IV 1 EA IV ONE (12:35)
[2025-04-19] MEDS: LIDOCAINE 1% MDV 20 ML VIAL SC SCH (14:44)
[2025-04-19] MEDS: SODIUM CHLORIDE 0.9% 1000 ML XX SCH (14:44)
[2025-04-19] MEDS: ISOVUE-300 61% 100 ML VIAL IV SCH (14:44)
[2025-04-19 16:30] VITALS: BP 146/60; O2SAT 97
== END ==
LOC: M IRPRO 03-15 07:10
PROVIDERS: ATTEND Radiology Diagnostic Radiology
DX: N13.9 Obstructive and reflux uropathy, unspecified (principal)
CPT/HCPCS: 50435; 87070; 87075; 87076; 87077; 87186; 87205; C1725; C1729; C1769; J0744; J2250; J3010; Q9967

== ENCOUNTER 2025-04-25 16:05 | Inpatient (IN) | payer MEDICARE, BC ==
[~2025-04-25] VITALS: Ht 162.6 cm; Wt 85.0 kg
[~2025-04-25 16:05] MED LIST changes: -ACET650T61 PO; -ACETAMINOPHEN 325 MG TAB PO PRN; -DICL100G10 TOP; -DICL3GEL2 TOP; -LIDOCAINE 2% 100 MG/5 ML SDV (FOR ANES.) As Ordered ONE; -MIDAZOLAM INJ 2 MG/2 ML VIAL As Ordered ONE; -MORPHINE 2 MG/ML 1 ML VIAL IV PRN; -NS (Normal Saline) 0.9% 1,000 ML IV SCH; -ONDANSETRON 4MG 2ML VIAL IV PRN; -PERCOCET 5MG/325MG TAB PO PRN
[2025-04-25 17:21] LABS: BASO # 0.0 10^3/uL (0.0-0.2); BASO % 0.6 % (0.0-1.0); EOS # 0.0 10^3/uL (0.0-0.5); EOS % 0.8 % (0.0-3.0); LYMPH # 1.1 10^3/uL (1.5-5.0); LYMPH % 30.7 % (24.0-44.0); MONO # 0.5 10^3/uL (0.0-0.8); MONO % 12.5 % (2.0-8.0); NEUTROPHILS # 2.0 10^3/uL (1.5-8.5); NEUTROPHILS % 54.0 % (36.0-66.0); PLATELET COUNT, AUTOMATED 341 10^3/uL (150-450)
[2025-04-25] MEDS: VANCOMYCIN HCL 1,500 MG, VIAL MATE ADAPTER 1 EACH in NS 500 ML IV ONE (17:39)
[2025-04-25] MEDS: HYDROMORPHONE HCL 0.5 MG/0.5 ML SYRINGE IV PRN (17:39)
[2025-04-25 17:48] LABS: ALT/SGPT 22.0 U/L (7.0-40); AST/SGOT 18.0 U/L (<34); CALCIUM LEVEL 8.6 MG/DL (8.3-10.6); CARBON DIOXIDE LEVEL 31.0 MMOL/L (20-31); CHLORIDE LEVEL 104.0 MMOL/L (98-107); CREATININE FOR GFR 1.38 MG/DL (0.55-1.30); GLOMERULAR FILTRATION RATE 38.5 (>32); POTASSIUM SERUM 4.3 MMOL/L (3.5-5.1); SODIUM LEVEL 144.0 MMOL/L (136-145)
[2025-04-25] MEDS: MEROPENEM 2 GM in SODIUM CHLORIDE 0.9% INJ 100 ML IV ONE (20:32)
[2025-04-25] MEDS ORDERED: ACET650T61 PO (20:45)
[2025-04-25] MEDS ORDERED: HOME MED LIST COMPLETE! XX SCH (20:50)
[2025-04-25] MEDS ORDERED: FLUTICASONE PROPIONATE 0.05% NASAL SPRAY 16 GM NARES PRN (21:20)
[2025-04-25] MEDS ORDERED: DOCUSATE SODIUM 100 MG CAPSULE PO PRN (21:20)
[2025-04-25] MEDS ORDERED: MORPHINE 4 MG/ML 1 ML VIAL IV PRN (21:20)
[2025-04-25] MEDS ORDERED: PILL CUTTER 1 EACH XX PRN (21:55)
[2025-04-25] MEDS: PREGABALIN 100 MG CAP PO SCH (22:48)
[2025-04-25] MEDS: MAGNESIUM OXIDE 400 MG TAB PO SCH (22:48)
[2025-04-25] MEDS: ACETAMINOPHEN 650 MG ER TAB PO SCH (22:48)
[2025-04-25] MEDS: oxyCODONE 20MG CR TAB PO SCH (22:49)
[2025-04-25] MEDS: PANTOPRAZOLE 40MG TAB PO SCH (23:10)
[2025-04-25] MEDS: METOPROLOL SUCC. 25 MG *XL* TAB PO SCH (23:10)
[2025-04-25] MEDS: traZODone 100 MG TAB PO SCH (23:11)
[2025-04-25] MEDS: CYCLOBENZAPRINE 5 MG TABLET PO SCH (23:11)
[2025-04-25] MEDS: MORPHINE 4 MG/ML 1 ML VIAL IV PRN (23:11)
[2025-04-26] VITALS (12 sets, daily range): BP systolic 101–146; BP diastolic 30–62; TEMP 96.3–97.2; O2SAT 89–98
[2025-04-26] MEDS: RAMELTEON 8 MG TAB PO PRN (01:38)
[2025-04-26] MEDS ORDERED: GLUCOSE 4 GM CHEW PO PRN (03:30)
[2025-04-26] MEDS ORDERED: DEXTROSE 50% 50 ML SYRINGE IV PRN (03:30)
[2025-04-26] MEDS ORDERED: GLUCAGON INJ 1 MG VIAL SC PRN (03:30)
[2025-04-26] MEDS: MEROPENEM 2 GM in SODIUM CHLORIDE 0.9% INJ 100 ML IV SCH (04:46)
[2025-04-26 05:11] LABS: APPEARANCE, URINE CLOUDY (CLEAR); BACTERIA, URINE AUTO 1+ (NEGATIVE); BILIRUBIN, URINE AUTO NEGATIVE (NEGATIVE); BLOOD, URINE BLOOD NEGATIVE (NEGATIVE); GLUCOSE, URINE (UA) AUTO NEGATIVE (NEGATIVE); KETONE, URINE AUTO NEGATIVE (NEGATIVE); LEUKOCYTE ESTERASE, URINE AUTO 3+ (NEGATIVE); MUCUS, URINE SMALL (NEGATIVE); NITRITE, URINE AUTO POSITIVE (NEGATIVE); PROTEIN, URINE AUTO 2+ mg/dL (NEGATIVE); RBC, URINE AUTO 13 /HPF (0-3); SPECIFIC GRAVITY URINE AUTO 1.018 (1.002-1.035); SQUAMOUS EPITHELIAL CELL UR AU 1 /HPF (0-6); UROBILINOGEN, URINE AUTO 0.2 mg/dL (0.0-2.0); WBC, URINE AUTO TNTC /HPF (0-3)
[2025-04-26] MEDS: LEVOTHYROXINE 50 MCG TABLET (0.05 MG) PO SCH (06:02)
[2025-04-26] MEDS: INSULIN LISPRO (NovoLOG) PER UNIT SC SCH ×2 (07:30→21:00)
[2025-04-26] MEDS: CALCITRIOL 0.25 MCG CAP (S0169) PO SCH (08:06)
[2025-04-26] MEDS: FUROSEMIDE 20 MG TAB PO SCH (08:06)
[2025-04-26] MEDS: CYANOCOBALAMIN 500 MCG TAB PO SCH (08:07)
[2025-04-26] MEDS: ASCORBIC ACID 500 MG TAB PO SCH (08:07)
[2025-04-26] MEDS: HEPARIN SOD 5000 UNITS/ML 1 ML VIAL/SYRINGE SC SCH (08:08)
[2025-04-26 08:55] LABS: PLATELET COUNT, AUTOMATED 297 10^3/uL (150-450)
[2025-04-26 09:18] LABS: ALT/SGPT 16.0 U/L (7.0-40); AST/SGOT 16.0 U/L (<34); CALCIUM LEVEL 8.6 MG/DL (8.3-10.6); CARBON DIOXIDE LEVEL 29.0 MMOL/L (20-31); CHLORIDE LEVEL 105.0 MMOL/L (98-107); CREATININE FOR GFR 1.21 MG/DL (0.55-1.30); GLOMERULAR FILTRATION RATE 45.0 (>32); MAGNESIUM LEVEL 1.7 MG/DL (1.8-2.4); POTASSIUM SERUM 4.3 MMOL/L (3.5-5.1); SODIUM LEVEL 144.0 MMOL/L (136-145)
[2025-04-26 10:16] LABS: VANCOMYCIN RANDOM 13.5 UG/ML
[2025-04-26] MEDS: VANCOMYCIN HCL 1,000 MG, VIAL MATE ADAPTER 1 EACH in NS 250 ML IV SCH (11:18)
[2025-04-26] MEDS ORDERED: MORPHINE 4 MG/ML 1 ML VIAL IV PRN (12:10)
[2025-04-26] MEDS: MORPHINE 4 MG/ML 1 ML VIAL IV PRN (14:08)
[2025-04-26] MEDS: ONDANSETRON 4MG ORAL DISINTEGRATING TAB PO PRN (14:12)
[2025-04-26] MEDS: MEROPENEM 1 GM in IV 1 EA IV SCH (17:14)
[2025-04-27] VITALS (20 sets, daily range): BP systolic 107–153; BP diastolic 39–63; TEMP 95.8–98.6; O2SAT 2–98
[2025-04-27 06:45] LABS: PLATELET COUNT, AUTOMATED 243 10^3/uL (150-450)
[2025-04-27 07:16] LABS: VANCOMYCIN RANDOM 15.4 UG/ML
[2025-04-27 07:18] LABS: ALT/SGPT 12.0 U/L (7.0-40); AST/SGOT 12.0 U/L (<34); CALCIUM LEVEL 8.3 MG/DL (8.3-10.6); CARBON DIOXIDE LEVEL 31.0 MMOL/L (20-31); CHLORIDE LEVEL 105.0 MMOL/L (98-107); CREATININE FOR GFR 1.41 MG/DL (0.55-1.30); GLOMERULAR FILTRATION RATE 37.5 (>32); MAGNESIUM LEVEL 1.7 MG/DL (1.8-2.4); POTASSIUM SERUM 4.6 MMOL/L (3.5-5.1); SODIUM LEVEL 144.0 MMOL/L (136-145)
[2025-04-27 22:32] LABS: PLATELET COUNT, AUTOMATED 290 10^3/uL (150-450)
[2025-04-28] VITALS (7 sets, daily range): BP systolic 115–154; BP diastolic 52–93; TEMP 96.1–97.9; O2SAT 93–96
[2025-04-28 06:49] LABS: PLATELET COUNT, AUTOMATED 240 10^3/uL (150-450)
[2025-04-28 07:20] LABS: ALT/SGPT 12.0 U/L (7.0-40); AST/SGOT 16.0 U/L (<34); CALCIUM LEVEL 8.3 MG/DL (8.3-10.6); CARBON DIOXIDE LEVEL 32.0 MMOL/L (20-31); CHLORIDE LEVEL 104.0 MMOL/L (98-107); CREATININE FOR GFR 1.28 MG/DL (0.55-1.30); GLOMERULAR FILTRATION RATE 42.1 (>32); MAGNESIUM LEVEL 1.9 MG/DL (1.8-2.4); POTASSIUM SERUM 5.1 MMOL/L (3.5-5.1); SODIUM LEVEL 143.0 MMOL/L (136-145)
[2025-04-28] MEDS: VANCOMYCIN HCL 750 MG, VIAL MATE ADAPTER 1 EACH in NS 250 ML IV SCH (10:49)
[2025-04-28] MEDS ORDERED: DICL3GEL13 TOP (12:55)
[2025-04-28] MEDS ORDERED: DICL100G10 TOP (12:56)
[2025-04-29 04:05] VITALS: BP 138/55; TEMP 98.7; O2SAT 88
[2025-04-29 06:54] LABS: PLATELET COUNT, AUTOMATED 276 10^3/uL (150-450)
[2025-04-29 07:17] LABS: ALT/SGPT < 9 U/L (7.0-40); AST/SGOT 11 U/L (<34); CALCIUM LEVEL 8.8 MG/DL (8.3-10.6); CARBON DIOXIDE LEVEL 31 MMOL/L (20-31); CHLORIDE LEVEL 103 MMOL/L (98-107); CREATININE FOR GFR 1.15 MG/DL (0.55-1.30); GLOMERULAR FILTRATION RATE 47.9 (>32); MAGNESIUM LEVEL 1.8 MG/DL (1.8-2.4); POTASSIUM SERUM 4.4 MMOL/L (3.5-5.1); SODIUM LEVEL 142 MMOL/L (136-145)
[2025-04-29 08:00] VITALS: BP 136/54; TEMP 98; O2SAT 88
[2025-04-29 12:00] VITALS: BP 128/48; TEMP 98.1; O2SAT 92
[2025-04-29 14:52] LABS: C REACTIVE PROTEIN QUANTITATIV 2.86 MG/DL (<1.0)
[2025-04-29 16:00] VITALS: BP 132/56; TEMP 97.7; O2SAT 96
[2025-04-29 20:21] VITALS: BP 140/64; TEMP 97; O2SAT 96
[2025-04-29 23:51] VITALS: BP 106/58; TEMP 96.8; O2SAT 97
[2025-04-30 04:00] VITALS: BP 117/48; TEMP 97; O2SAT 98
[2025-04-30 06:14] LABS: PLATELET COUNT, AUTOMATED 260 10^3/uL (150-450)
[2025-04-30 06:39] LABS: ALT/SGPT < 9 U/L (7.0-40); AST/SGOT 13 U/L (<34); CALCIUM LEVEL 8.7 MG/DL (8.3-10.6); CARBON DIOXIDE LEVEL 33 MMOL/L (20-31); CHLORIDE LEVEL 102 MMOL/L (98-107); CREATININE FOR GFR 1.24 MG/DL (0.55-1.30); GLOMERULAR FILTRATION RATE 43.7 (>32); MAGNESIUM LEVEL 1.8 MG/DL (1.8-2.4); POTASSIUM SERUM 4.5 MMOL/L (3.5-5.1); SODIUM LEVEL 142 MMOL/L (136-145)
[2025-04-30 08:00] VITALS: BP 121/48; TEMP 97.2; O2SAT 97
[2025-04-30 12:00] VITALS: BP 131/91; TEMP 97; O2SAT 96
[2025-04-30] MEDS: SODIUM CHLORIDE 0.9% INJ 10 ML SYR IV PRN (15:21)
[2025-04-30] MEDS: HEPARIN LOCK FLUSH 100 UNITS/ML 3 ML SYRINGE IV PRN (15:21)
[2025-04-30] MEDS: GABAPENTIN 100 MG CAP PO SCH (16:46)
[2025-04-30] MEDS: MORPHINE 4 MG/ML 1 ML VIAL IV PRN (16:47)
[2025-04-30 17:32] LABS: BASO # 0.0 10^3/uL (0.0-0.2); BASO % 1.1 % (0.0-1.0); EOS # 0.1 10^3/uL (0.0-0.5); EOS % 3.4 % (0.0-3.0); LYMPH # 1.1 10^3/uL (1.5-5.0); LYMPH % 59.7 % (24.0-44.0); MONO # 0.2 10^3/uL (0.0-0.8); MONO % 9.1 % (2.0-8.0); NEUTROPHILS % 25.6 % (36.0-66.0)
[2025-04-30 17:41] LABS: NEUTROPHILS # 0.5 10^3/uL (1.5-8.5)
[2025-04-30 20:16] VITALS: BP 141/83; TEMP 98; O2SAT 98
[2025-05-01] VITALS: BP 124/83; TEMP 97; O2SAT 96
[2025-05-01 03:36] VITALS: BP 126/55; TEMP 97.2; O2SAT 98
[2025-05-01 06:56] LABS: PLATELET COUNT, AUTOMATED 286 10^3/uL (150-450)
[2025-05-01 07:28] LABS: ALT/SGPT 10.0 U/L (7.0-40); AST/SGOT 15.0 U/L (<34); CALCIUM LEVEL 9.4 MG/DL (8.3-10.6); CARBON DIOXIDE LEVEL 33.0 MMOL/L (20-31); CHLORIDE LEVEL 100.0 MMOL/L (98-107); CREATININE FOR GFR 1.12 MG/DL (0.55-1.30); GLOMERULAR FILTRATION RATE 49.4 (>32); MAGNESIUM LEVEL 1.9 MG/DL (1.8-2.4); POTASSIUM SERUM 4.5 MMOL/L (3.5-5.1); SODIUM LEVEL 141.0 MMOL/L (136-145)
[2025-05-01 08:00] VITALS: BP 122/51; TEMP 97; O2SAT 96
[2025-05-01] MEDS: SODIUM CHLORIDE 0.9% INJ 10 ML SYR IV SCH (09:00)
[2025-05-01] MEDS: HEPARIN LOCK FLUSH 100 UNITS/ML 3 ML SYRINGE IV SCH (09:00)
[2025-05-01 12:00] VITALS: BP 121/52; TEMP 97.9; O2SAT 96
[2025-05-01] MEDS: PREGABALIN 75 MG CAP PO SCH (15:16)
[2025-05-01 20:11] VITALS: BP 115/68; TEMP 98.7; O2SAT 96
[2025-05-02] VITALS: BP 123/63; TEMP 97.3; O2SAT 94
[2025-05-02 03:56] VITALS: BP 125/55; TEMP 97; O2SAT 97
[2025-05-02] MEDS: DICLOFENAC 1% TOP PRN (05:27)
[2025-05-02 06:22] LABS: PLATELET COUNT, AUTOMATED 236 10^3/uL (150-450)
[2025-05-02 06:50] LABS: ALT/SGPT < 9 U/L (7.0-40); AST/SGOT 14 U/L (<34); CALCIUM LEVEL 9.5 MG/DL (8.3-10.6); CARBON DIOXIDE LEVEL 30 MMOL/L (20-31); CHLORIDE LEVEL 103 MMOL/L (98-107); CREATININE FOR GFR 1.09 MG/DL (0.55-1.30); GLOMERULAR FILTRATION RATE 51.0 (>32); MAGNESIUM LEVEL 1.8 MG/DL (1.8-2.4); POTASSIUM SERUM 4.8 MMOL/L (3.5-5.1); SODIUM LEVEL 142 MMOL/L (136-145)
[2025-05-02 08:30] VITALS: BP 102/41; TEMP 97; O2SAT 90
[2025-05-02 12:00] VITALS: BP 120/61; TEMP 98; O2SAT 96
[2025-05-02 16:13] VITALS: BP 137/57; TEMP 97.8; O2SAT 98
[2025-05-02 20:07] VITALS: BP_SYST 134; BP_DIAS 5; BP_DIAS 65; TEMP 98.5; O2SAT 98
[2025-05-03] VITALS (11 sets, daily range): BP systolic 93–142; BP diastolic 33–74; TEMP 97.2–98.1; O2SAT 94–96
[2025-05-03] MEDS ORDERED: VANCOMYCIN HCL 1,000 MG, VIAL MATE ADAPTER 1 EACH in NS 250 ML IV SCH (06:00)
[2025-05-04 01:12] VITALS: BP 117/45; TEMP 98.1; O2SAT 40; O2SAT 94
[2025-05-04] MEDS: IPRATROPIUM 0.5 MG/ALBUTEROL 2.5 MG INH SOL UD 3 ML NEB PRN (02:53)
[2025-05-04 04:29] VITALS: BP 122/55; TEMP 97.3; O2SAT 96
[2025-05-04 08:00] VITALS: BP 100/39; TEMP 97.2; O2SAT 94
[2025-05-04 08:36] LABS: BASO # 0.0 10^3/uL (0.0-0.2); BASO % 0.5 % (0.0-1.0); EOS # 0.0 10^3/uL (0.0-0.5); EOS % 2.0 % (0.0-3.0); LYMPH # 1.1 10^3/uL (1.5-5.0); LYMPH % 55.8 % (24.0-44.0); MONO # 0.2 10^3/uL (0.0-0.8); MONO % 11.1 % (2.0-8.0); NEUTROPHILS % 30.1 % (36.0-66.0); PLATELET COUNT, AUTOMATED 222 10^3/uL (150-450)
[2025-05-04 08:38] LABS: NEUTROPHILS # 0.6 10^3/uL (1.5-8.5)
[2025-05-04 09:19] LABS: CALCIUM LEVEL 8.8 MG/DL (8.3-10.6); CARBON DIOXIDE LEVEL 29.0 MMOL/L (20-31); CHLORIDE LEVEL 106.0 MMOL/L (98-107); CREATININE FOR GFR 1.09 MG/DL (0.55-1.30); GLOMERULAR FILTRATION RATE 51.0 (>32); MAGNESIUM LEVEL 1.8 MG/DL (1.8-2.4); POTASSIUM SERUM 4.6 MMOL/L (3.5-5.1); SODIUM LEVEL 143.0 MMOL/L (136-145)
[2025-05-04 12:00] VITALS: BP 129/62; TEMP 97; O2SAT 92
[2025-05-04 20:43] VITALS: BP 110/66; TEMP 97.2; O2SAT 93
[2025-05-05] VITALS (10 sets, daily range): BP systolic 113–145; BP diastolic 45–68; TEMP 97.2–98.8; O2SAT 95–98
[2025-05-05 13:08] LABS: BASO # 0.0 10^3/uL (0.0-0.2); BASO % 1.0 % (0.0-1.0); EOS # 0.1 10^3/uL (0.0-0.5); EOS % 3.6 % (0.0-3.0); LYMPH # 1.3 10^3/uL (1.5-5.0); LYMPH % 63.8 % (24.0-44.0); MONO # 0.2 10^3/uL (0.0-0.8); MONO % 7.7 % (2.0-8.0); NEUTROPHILS % 23.4 % (36.0-66.0); PLATELET COUNT, AUTOMATED 228 10^3/uL (150-450)
[2025-05-05 13:09] LABS: NEUTROPHILS # 0.5 10^3/uL (1.5-8.5)
== END 2025-05-05 18:15 | disposition home or self-care (01) | DRG 699 ==
LOC: M ED 16:05 → M ED INP 16:06 → OBSVTOIN 04-26 00:51 → M MSPAV 04-26 01:15
PROVIDERS: ADMIT Student in an Organized Health Care Education/Training Program; ATTEND Internal Medicine
PROC: 30233N1 Transfusion of Nonautologous Red Blood Cells into Peripheral Vein, Percutaneous Approach (ICD-10-PCS; principal; 2025-04-27)
DX: T83.518A Infection and inflammatory reaction due to other urinary catheter, initial encounter (principal); I13.0 Hypertensive heart and chronic kidney disease with heart failure and stage 1 through stage 4 chronic kidney disease, or unspecified chronic kidney disease; I50.32 Chronic diastolic (congestive) heart failure; F11.20 Opioid dependence, uncomplicated; N39.0 Urinary tract infection, site not specified; N13.30 Unspecified hydronephrosis; E11.22 Type 2 diabetes mellitus with diabetic chronic kidney disease; G40.909 Epilepsy, unspecified, not intractable, without status epilepticus; J45.909 Unspecified asthma, uncomplicated; E11.40 Type 2 diabetes mellitus with diabetic neuropathy, unspecified; E03.9 Hypothyroidism, unspecified; D46.9 Myelodysplastic syndrome, unspecified; F39 Unspecified mood [affective] disorder; D64.9 Anemia, unspecified; I48.91 Unspecified atrial fibrillation; M79.7 Fibromyalgia; G47.33 Obstructive sleep apnea (adult) (pediatric); D70.9 Neutropenia, unspecified; K21.9 Gastro-esophageal reflux disease without esophagitis; N18.31 Chronic kidney disease, stage 3a; E78.5 Hyperlipidemia, unspecified; Z93.6 Other artificial openings of urinary tract status; Z86.73 Personal history of transient ischemic attack (TIA), and cerebral infarction without residual deficits; I25.10 Atherosclerotic heart disease of native coronary artery without angina pectoris; Z98.41 Cataract extraction status, right eye; Z98.42 Cataract extraction status, left eye; Z79.899 Other long term (current) drug therapy; Z88.8 Allergy status to other drugs, medicaments and biological substances; Z88.2 Allergy status to sulfonamides; Z95.0 Presence of cardiac pacemaker; Z93.3 Colostomy status; G47.00 Insomnia, unspecified; Y84.6 Urinary catheterization as the cause of abnormal reaction of the patient, or of later complication, without mention of misadventure at the time of the procedure

== ENCOUNTER 2025-05-06 07:52 | Outpatient (CLI) | payer MEDICARE, BC ==
[~2025-05-06] VITALS: Ht 160 cm; Wt 72.7 kg
[~2025-05-06 07:52] MED LIST changes: +ACET650T61 PO; +DICL100G10 TOP; +DICL3GEL13 TOP
[2025-05-06 08:11] VITALS: BP 125/84; O2SAT 96
[2025-05-06] MEDS: ERTAPENEM SODIUM 1 GM in NS MINI-BAG PLUS 50 ML IV ONE (08:52)
[2025-05-06] MEDS: VANCOMYCIN HCL 750 MG, VIAL MATE ADAPTER 1 EACH in NS 250 ML IV ONE (10:06)
[2025-05-06 11:20] VITALS: BP 148/65; O2SAT 95
[2025-05-06] MEDS: SODIUM CHLORIDE 0.9% INJ 10 ML SYR IV PRN (12:28)
[2025-05-06] MEDS: HEPARIN LOCK FLUSH 100 UNITS/ML 3 ML SYRINGE IV PRN (12:28)
== END 2025-05-06 11:20 | disposition home or self-care (01) ==
LOC: M INFU 07:52
PROVIDERS: ATTEND Internal Medicine Infectious Disease
DX: N39.0 Urinary tract infection, site not specified (principal); A41.9 Sepsis, unspecified organism; Z88.7 Allergy status to serum and vaccine; Z88.8 Allergy status to other drugs, medicaments and biological substances; Z88.2 Allergy status to sulfonamides; Z91.09 Other allergy status, other than to drugs and biological substances
CPT/HCPCS: 96365; 96366; J1335; J1642; J3373

== ENCOUNTER 2025-05-07 11:24 | Outpatient (CLI) | payer MEDICARE, BC ==
[~2025-05-07] VITALS: Ht 165.1 cm; Wt 72.7 kg
[2025-05-07 11:35] VITALS: BP 156/74; O2SAT 99
[2025-05-07] MEDS: VANCOMYCIN HCL 750 MG, VIAL MATE ADAPTER 1 EACH in NS 250 ML IV ONE (11:48)
[2025-05-07] MEDS: ERTAPENEM SODIUM 1 GM in NS MINI-BAG PLUS 50 ML IV ONE (12:58)
[2025-05-07] MEDS: SODIUM CHLORIDE 0.9% INJ 10 ML SYR IV PRN (13:54)
[2025-05-07] MEDS: HEPARIN LOCK FLUSH 100 UNITS/ML 3 ML SYRINGE IV PRN (13:54)
[2025-05-07 13:55] VITALS: BP 109/55; O2SAT 95
== END 2025-05-07 13:50 | disposition home or self-care (01) ==
LOC: M INFU 11:24
PROVIDERS: ATTEND Internal Medicine Infectious Disease
DX: N39.0 Urinary tract infection, site not specified (principal); A41.9 Sepsis, unspecified organism; Z88.7 Allergy status to serum and vaccine; Z88.8 Allergy status to other drugs, medicaments and biological substances; Z88.2 Allergy status to sulfonamides; Z91.048 Other nonmedicinal substance allergy status
CPT/HCPCS: 96365; 96366; 96375; J1335; J1642; J3373

== ENCOUNTER 2025-05-08 12:12 | Outpatient (CLI) | payer MEDICARE, BC ==
[2025-05-08 12:30] VITALS: BP 154/78; O2SAT 96
[2025-05-08] MEDS: ERTAPENEM SODIUM 1 GM in NS MINI-BAG PLUS 50 ML IV ONE (12:39)
[2025-05-08] MEDS: VANCOMYCIN HCL 750 MG, VIAL MATE ADAPTER 1 EACH in NS 250 ML IV ONE (13:15)
[2025-05-08] MEDS: SODIUM CHLORIDE 0.9% INJ 10 ML SYR IV PRN (14:23)
[2025-05-08] MEDS: HEPARIN LOCK FLUSH 100 UNITS/ML 3 ML SYRINGE IV PRN (14:24)
[2025-05-08 14:30] VITALS: BP 145/64; O2SAT 98
== END 2025-05-08 14:30 ==
LOC: M INFU 12:12
PROVIDERS: ATTEND Internal Medicine Infectious Disease
DX: N39.0 Urinary tract infection, site not specified (principal); A41.9 Sepsis, unspecified organism; Z88.7 Allergy status to serum and vaccine; Z88.8 Allergy status to other drugs, medicaments and biological substances; Z88.2 Allergy status to sulfonamides; Z91.048 Other nonmedicinal substance allergy status
CPT/HCPCS: 96365; 96366; J1335; J1642; J3373

== ENCOUNTER → 2025-05-09 | Outpatient (CLI) | payer MEDICARE, BC ==
[2025-05-09] MEDS: ERTAPENEM SODIUM 1 GM in NS MINI-BAG PLUS 50 ML IV ONE (13:45)
[2025-05-09 13:54] VITALS: BP 142/62; O2SAT 96
[2025-05-09] MEDS: VANCOMYCIN HCL 750 MG, VIAL MATE ADAPTER 1 EACH in NS 250 ML IV ONE (14:23)
[2025-05-09] MEDS: HEPARIN LOCK FLUSH 100 UNITS/ML 3 ML SYRINGE IV PRN (14:23)
[2025-05-09] MEDS: SODIUM CHLORIDE 0.9% INJ 10 ML SYR IV PRN (14:23)
[2025-05-09 15:25] VITALS: BP 138/66; O2SAT 97
== END ==
LOC: M INFU 13:15
PROVIDERS: ATTEND Internal Medicine Infectious Disease
DX: N39.0 Urinary tract infection, site not specified (principal); A41.9 Sepsis, unspecified organism; Z88.2 Allergy status to sulfonamides; Z88.7 Allergy status to serum and vaccine; Z88.8 Allergy status to other drugs, medicaments and biological substances; Z91.048 Other nonmedicinal substance allergy status
CPT/HCPCS: 96365; 96367; J1335; J1642; J3373

== ENCOUNTER 2025-05-23 17:51 | Inpatient (IN) | payer MEDICARE, BC ==
[~2025-05-23] VITALS: Ht 165.1 cm; Wt 78.5 kg
[2025-05-23] MEDS: ACETAMINOPHEN *IV* 1,000 MG in IV 1 EA IV ONE (18:16)
[2025-05-23] MEDS: MORPHINE 4 MG/ML 1 ML VIAL IV ONE (18:42)
[2025-05-23] MEDS: CEFEPIME HCL 2 GM in DEXTROSE 5% (D5W) ADV/MINI-BAG 50 ML IV ONE (18:42)
[2025-05-23 18:50] LABS: BASO # 0.0 10^3/uL (0.0-0.2); BASO % 0.2 % (0.0-1.0); EOS # 0.0 10^3/uL (0.0-0.5); EOS % 0.0 % (0.0-3.0); LYMPH # 0.5 10^3/uL (1.5-5.0); LYMPH % 8.2 % (24.0-44.0); MONO # 1.2 10^3/uL (0.0-0.8); MONO % 19.5 % (2.0-8.0); NEUTROPHILS # 4.3 10^3/uL (1.5-8.5); NEUTROPHILS % 71.3 % (36.0-66.0); PLATELET COUNT, AUTOMATED 318 10^3/uL (150-450)
[2025-05-23 19:09] LABS: ALT/SGPT 21.0 U/L (7.0-40); AST/SGOT 18.0 U/L (<34); CALCIUM LEVEL 8.3 MG/DL (8.3-10.6); CARBON DIOXIDE LEVEL 24.0 MMOL/L (20-31); CHLORIDE LEVEL 107.0 MMOL/L (98-107); CREATININE FOR GFR 1.54 MG/DL (0.55-1.30); GLOMERULAR FILTRATION RATE 33.7 (>32); POTASSIUM SERUM 4.1 MMOL/L (3.5-5.1); SODIUM LEVEL 139.0 MMOL/L (136-145)
[2025-05-23 19:20] LABS: APPEARANCE, URINE CLOUDY (CLEAR); BACTERIA, URINE AUTO 2+ (NEGATIVE); BILIRUBIN, URINE AUTO NEGATIVE (NEGATIVE); BLOOD, URINE BLOOD 2+ (NEGATIVE); GLUCOSE, URINE (UA) AUTO NEGATIVE (NEGATIVE); INR 1.25; KETONE, URINE AUTO NEGATIVE (NEGATIVE); LEUKOCYTE ESTERASE, URINE AUTO 3+ (NEGATIVE); MUCUS, URINE SMALL (NEGATIVE); NITRITE, URINE AUTO NEGATIVE (NEGATIVE); PROTEIN, URINE AUTO 3+ mg/dL (NEGATIVE); RBC, URINE AUTO 101 /HPF (0-3); SPECIFIC GRAVITY URINE AUTO 1.014 (1.002-1.035); SQUAMOUS EPITHELIAL CELL UR AU 9 /HPF (0-6); TRANSITIONAL EPITHELIAL AUTO 4 /HPF; UROBILINOGEN, URINE AUTO 0.2 mg/dL (0.0-2.0); WBC, URINE AUTO TNTC /HPF (0-3)
[2025-05-23] MEDS ORDERED: ISOVUE-370 76% 100 ML VIAL As Ordered ONE (19:27)
[2025-05-23 21:20] VITALS: BP 143/63; TEMP 101.3; O2SAT 98
[2025-05-23 21:35] VITALS: BP 163/70; TEMP 101.1; O2SAT 98
[2025-05-23] MEDS: IBUPROFEN 600 MG TAB PO ONE (21:45)
[2025-05-23] MEDS ORDERED: HOME MED LIST COMPLETE! XX SCH (21:45)
[2025-05-23 21:52] VITALS: BP 125/58; O2SAT 97
[2025-05-23] MEDS ORDERED: MOM 30 ML SUSPENSION UDC PO PRN (22:35)
[2025-05-23] MEDS ORDERED: ONDANSETRON 4MG ORAL DISINTEGRATING TAB PO PRN (22:35)
[2025-05-23] MEDS ORDERED: FLUTICASONE PROPIONATE 0.05% NASAL SPRAY 16 GM NARES PRN (22:35)
[2025-05-23] MEDS ORDERED: DOCUSATE SODIUM 100 MG CAPSULE PO PRN (22:35)
[2025-05-23] MEDS ORDERED: MAALOX 30 ML SUSP *UDC PO PRN (22:35)
[2025-05-23 22:45] VITALS: BP 148/65; O2SAT 97
[2025-05-23 23:15] VITALS: BP 160/72; TEMP 100.6; O2SAT 97
[2025-05-24] VITALS (15 sets, daily range): BP systolic 96–163; BP diastolic 53–83; TEMP 98.6–103; O2SAT 92–98
[2025-05-24] MEDS: ACETAMINOPHEN *IV* 1,000 MG in IV 1 EA IV ONE ×2 (00:27→07:07)
[2025-05-24] MEDS: traZODone 100 MG TAB PO SCH (00:34)
[2025-05-24] MEDS: PREGABALIN 100 MG CAP PO SCH (00:37)
[2025-05-24] MEDS: oxyCODONE 20MG CR TAB PO SCH (00:38)
[2025-05-24] MEDS: MEROPENEM 1 GM in IV 1 EA IV ONE (00:38)
[2025-05-24] MEDS: SODIUM CHLORIDE 0.9% 1000 ML IV SCH (01:27)
[2025-05-24] MEDS: QUEtiapine FUMARATE 12.5 MG HALF-TAB PO SCH (01:35)
[2025-05-24] MEDS: METOPROLOL SUCC *XL* 12.5 MG PER 1/2 TAB PO SCH (01:36)
[2025-05-24] MEDS: VANCOMYCIN HCL 1,500 MG, VIAL MATE ADAPTER 1 EACH in NS 500 ML IV ONE (02:30)
[2025-05-24] MEDS: LEVOTHYROXINE 50 MCG TABLET (0.05 MG) PO SCH (06:22)
[2025-05-24 06:23] LABS: PLATELET COUNT, AUTOMATED 269 10^3/uL (150-450)
[2025-05-24 06:24] LABS: INR 1.31
[2025-05-24 06:53] LABS: ALT/SGPT 20.0 U/L (7.0-40); AST/SGOT 26.0 U/L (<34); CALCIUM LEVEL 7.6 MG/DL (8.3-10.6); CARBON DIOXIDE LEVEL 23.0 MMOL/L (20-31); CHLORIDE LEVEL 108.0 MMOL/L (98-107); CREATININE FOR GFR 1.45 MG/DL (0.55-1.30); GLOMERULAR FILTRATION RATE 36.2 (>32); MAGNESIUM LEVEL 1.8 MG/DL (1.8-2.4); POTASSIUM SERUM 4.2 MMOL/L (3.5-5.1); SODIUM LEVEL 141.0 MMOL/L (136-145)
[2025-05-24] MEDS ORDERED: MEROPENEM 1 GM in IV 1 EA IV SCH (07:55)
[2025-05-24] MEDS: PANTOPRAZOLE 40MG VIAL IV SCH (09:33)
[2025-05-24] MEDS: HEPARIN SOD 5000 UNITS/ML 1 ML VIAL/SYRINGE SC SCH (09:34)
[2025-05-24] MEDS: FUROSEMIDE 20 MG TAB PO SCH (09:35)
[2025-05-24] MEDS: CYCLOBENZAPRINE 5 MG TABLET PO SCH (09:35)
[2025-05-24] MEDS: MEROPENEM 1 GM in IV 1 EA IV SCH (09:56)
[2025-05-24] MEDS ORDERED: PILL CUTTER 1 EACH XX ONE (12:30)
[2025-05-24] MEDS: HYDROmorphone 2 MG TAB PO PRN (12:35)
[2025-05-24 13:12] LABS: PLATELET COUNT, AUTOMATED 244 10^3/uL (150-450)
[2025-05-24] MEDS: LR 1,000 ML IV SCH (14:09)
[2025-05-24] MEDS: VANCOMYCIN HCL 1,000 MG, VIAL MATE ADAPTER 1 EACH in NS 250 ML IV SCH (14:41)
[2025-05-25] VITALS (21 sets, daily range): BP systolic 126–158; BP diastolic 61–84; TEMP 98–100.2; O2SAT 90–97
[2025-05-25] MEDS: ACETAMINOPHEN 325 MG TAB PO SCH (04:41)
[2025-05-25 04:45] LABS: PLATELET COUNT, AUTOMATED 222 10^3/uL (150-450)
[2025-05-25 05:11] LABS: CALCIUM LEVEL 7.7 MG/DL (8.3-10.6); CARBON DIOXIDE LEVEL 24.0 MMOL/L (20-31); CHLORIDE LEVEL 108.0 MMOL/L (98-107); CREATININE FOR GFR 1.49 MG/DL (0.55-1.30); GLOMERULAR FILTRATION RATE 35.1 (>32); POTASSIUM SERUM 4.0 MMOL/L (3.5-5.1); SODIUM LEVEL 140.0 MMOL/L (136-145)
[2025-05-25] MEDS ORDERED: PILL CUTTER 1 EACH XX PRN (10:30)
[2025-05-25] MEDS: HYDROmorphone 2 MG TAB PO PRN (10:37)
[2025-05-26] VITALS (7 sets, daily range): BP systolic 131–168; BP diastolic 58–72; TEMP 97.5–99; O2SAT 89–97
[2025-05-26 05:39] LABS: PLATELET COUNT, AUTOMATED 249 10^3/uL (150-450)
[2025-05-26 05:59] LABS: CALCIUM LEVEL 7.9 MG/DL (8.3-10.6); CARBON DIOXIDE LEVEL 25.0 MMOL/L (20-31); CHLORIDE LEVEL 108.0 MMOL/L (98-107); CREATININE FOR GFR 1.18 MG/DL (0.55-1.30); GLOMERULAR FILTRATION RATE 46.4 (>32); POTASSIUM SERUM 3.9 MMOL/L (3.5-5.1); SODIUM LEVEL 143.0 MMOL/L (136-145)
[2025-05-26] MEDS: RAMELTEON 8 MG TAB PO SCH (20:40)
[2025-05-27 03:53] VITALS: BP 134/60; TEMP 97; O2SAT 90
[2025-05-27 08:17] VITALS: BP 162/72; TEMP 97; O2SAT 93
[2025-05-27 12:27] VITALS: BP 162/71; TEMP 97.9; O2SAT 93
[2025-05-27] MEDS: HEPARIN LOCK FLUSH 100 UNITS/ML 3 ML SYRINGE IV PRN (13:54)
[2025-05-27] MEDS: SODIUM CHLORIDE 0.9% INJ 10 ML SYR IV PRN (13:54)
[2025-05-27 15:36] LABS: PLATELET COUNT, AUTOMATED 238 10^3/uL (150-450)
[2025-05-27 16:09] LABS: CALCIUM LEVEL 8.2 MG/DL (8.3-10.6); CARBON DIOXIDE LEVEL 30.0 MMOL/L (20-31); CHLORIDE LEVEL 106.0 MMOL/L (98-107); CREATININE FOR GFR 1.01 MG/DL (0.55-1.30); GLOMERULAR FILTRATION RATE 55.9 (>32); POTASSIUM SERUM 4.1 MMOL/L (3.5-5.1); SODIUM LEVEL 144.0 MMOL/L (136-145)
[2025-05-27 19:45] VITALS: BP 163/72; TEMP 98; O2SAT 94
[2025-05-27 23:25] VITALS: BP 146/74; TEMP 97.7; O2SAT 95
[2025-05-28 04:57] VITALS: BP 146/73; TEMP 96.9; O2SAT 96
[2025-05-28 05:27] LABS: PLATELET COUNT, AUTOMATED 228 10^3/uL (150-450)
[2025-05-28 05:51] LABS: CALCIUM LEVEL 7.9 MG/DL (8.3-10.6); CARBON DIOXIDE LEVEL 30.0 MMOL/L (20-31); CHLORIDE LEVEL 103.0 MMOL/L (98-107); CREATININE FOR GFR 0.95 MG/DL (0.55-1.30); GLOMERULAR FILTRATION RATE 60.2 (>32); POTASSIUM SERUM 3.8 MMOL/L (3.5-5.1); SODIUM LEVEL 141.0 MMOL/L (136-145)
[2025-05-28 05:58] LABS: EOSINOPHILS 1 % (0-3); LYMPHOCYTES 55 % (16-44); MONOCYTES 10 % (0-5); NEUTROPHILS 33 % (28-66); PLATELET ESTIMATE NORMAL (NORMAL)
[2025-05-28 08:00] VITALS: BP 174/78; TEMP 98.3; O2SAT 97
[2025-05-28] MEDS: HEPARIN LOCK FLUSH 100 UNITS/ML 3 ML SYRINGE IV SCH (10:25)
[2025-05-28] MEDS: SODIUM CHLORIDE 0.9% INJ 10 ML SYR IV SCH (10:25)
[2025-05-28 17:58] VITALS: BP 144/61; TEMP 98.3; O2SAT 97
[2025-05-28 19:55] VITALS: BP 162/68; TEMP 97.7; O2SAT 97
[2025-05-29 04:13] VITALS: BP 142/67; TEMP 97; O2SAT 94
[2025-05-29 05:41] LABS: BASO # 0.0 10^3/uL (0.0-0.2); BASO % 0.6 % (0.0-1.0); EOS # 0.0 10^3/uL (0.0-0.5); EOS % 1.1 % (0.0-3.0); LYMPH # 1.0 10^3/uL (1.5-5.0); LYMPH % 54.1 % (24.0-44.0); MONO # 0.2 10^3/uL (0.0-0.8); MONO % 8.3 % (2.0-8.0); NEUTROPHILS % 34.8 % (36.0-66.0); PLATELET COUNT, AUTOMATED 214 10^3/uL (150-450)
[2025-05-29 06:06] LABS: CALCIUM LEVEL 7.7 MG/DL (8.3-10.6); CARBON DIOXIDE LEVEL 31.0 MMOL/L (20-31); CHLORIDE LEVEL 104.0 MMOL/L (98-107); CREATININE FOR GFR 0.94 MG/DL (0.55-1.30); GLOMERULAR FILTRATION RATE 61.0 (>32); POTASSIUM SERUM 3.5 MMOL/L (3.5-5.1); SODIUM LEVEL 142.0 MMOL/L (136-145)
[2025-05-29] MEDS: [UNRECOGNIZED DRUG - REMARK] SC SCH (09:29)
[2025-05-29 11:52] VITALS: BP 148/66; TEMP 97.5; O2SAT 96
[2025-05-29 21:00] VITALS: BP 141/66; TEMP 96.5; O2SAT 97
[2025-05-30 05:41] VITALS: BP 123/57; TEMP 96.9; O2SAT 96
[2025-05-30 06:54] LABS: PLATELET COUNT, AUTOMATED 228 10^3/uL (150-450)
[2025-05-30 07:21] LABS: CALCIUM LEVEL 8.1 MG/DL (8.3-10.6); CARBON DIOXIDE LEVEL 32.0 MMOL/L (20-31); CHLORIDE LEVEL 102.0 MMOL/L (98-107); CREATININE FOR GFR 0.99 MG/DL (0.55-1.30); GLOMERULAR FILTRATION RATE 57.3 (>32); POTASSIUM SERUM 3.8 MMOL/L (3.5-5.1); SODIUM LEVEL 141.0 MMOL/L (136-145)
[2025-05-30 12:00] VITALS: BP 126/58; TEMP 98.1; O2SAT 93
[2025-05-30 19:36] VITALS: BP 151/67; TEMP 97.2; O2SAT 98
[2025-05-31] VITALS (10 sets, daily range): BP systolic 118–173; BP diastolic 60–78; TEMP 97.3–98.6; O2SAT 92–99
[2025-05-31 06:18] LABS: PLATELET COUNT, AUTOMATED 147 10^3/uL (150-450)
[2025-05-31 06:37] LABS: CALCIUM LEVEL 7.8 MG/DL (8.3-10.6); CARBON DIOXIDE LEVEL 29.0 MMOL/L (20-31); CHLORIDE LEVEL 105.0 MMOL/L (98-107); CREATININE FOR GFR 0.97 MG/DL (0.55-1.30); GLOMERULAR FILTRATION RATE 58.7 (>32); POTASSIUM SERUM 3.7 MMOL/L (3.5-5.1); SODIUM LEVEL 143.0 MMOL/L (136-145)
[2025-05-31 17:32] LABS: LLE CLINICAL INFORMATION NOT PROVIDED; LLE NUMBER MARKERS 22; LLE SPECIMEN TYPE PERIPHERAL BLOOD
[2025-05-31] MEDS: QUEtiapine FUMARATE 12.5 MG HALF-TAB PO SCH (20:56)
[2025-05-31] MEDS: METOPROLOL SUCC *XL* 12.5 MG PER 1/2 TAB PO SCH (20:58)
[2025-05-31] MEDS: METOPROLOL SUCC. 25 MG *XL* TAB PO SCH (20:58)
[2025-06-01 06:00] VITALS: BP 133/65; TEMP 96.8; O2SAT 94
[2025-06-01 08:18] LABS: BASO # 0.0 10^3/uL (0.0-0.2); BASO % 0.5 % (0.0-1.0); EOS # 0.0 10^3/uL (0.0-0.5); EOS % 1.5 % (0.0-3.0); LYMPH # 1.3 10^3/uL (1.5-5.0); LYMPH % 64.3 % (24.0-44.0); MONO # 0.2 10^3/uL (0.0-0.8); MONO % 10.2 % (2.0-8.0); NEUTROPHILS % 23.0 % (36.0-66.0); PLATELET COUNT, AUTOMATED 246 10^3/uL (150-450)
[2025-06-01 08:20] LABS: NEUTROPHILS # 0.5 10^3/uL (1.5-8.5)
[2025-06-01 08:23] LABS: NEUTROPHILS # 0.6 10^3/uL (1.5-8.5)
[2025-06-01 09:19] VITALS: BP 142/62
== END 2025-06-01 13:50 | disposition home or self-care (01) | DRG 698 ==
LOC: M ED 17:51 → EDBD 17:51 → M ED INP 22:32 → M PCU 23:55 → M MS4PR 05-27 23:16 → M MS5PR 05-31 15:10
PROVIDERS: ADMIT Student in an Organized Health Care Education/Training Program; ATTEND Internal Medicine Nephrology
PROC: 30233N1 Transfusion of Nonautologous Red Blood Cells into Peripheral Vein, Percutaneous Approach (ICD-10-PCS; principal; 2025-05-23)
DX: T83.512A Infection and inflammatory reaction due to nephrostomy catheter, initial encounter (principal); A41.9 Sepsis, unspecified organism; I50.32 Chronic diastolic (congestive) heart failure; I13.0 Hypertensive heart and chronic kidney disease with heart failure and stage 1 through stage 4 chronic kidney disease, or unspecified chronic kidney disease; N17.9 Acute kidney failure, unspecified; D61.818 Other pancytopenia; N39.0 Urinary tract infection, site not specified; F11.20 Opioid dependence, uncomplicated; D46.9 Myelodysplastic syndrome, unspecified; G40.909 Epilepsy, unspecified, not intractable, without status epilepticus; E03.9 Hypothyroidism, unspecified; E11.22 Type 2 diabetes mellitus with diabetic chronic kidney disease; K21.9 Gastro-esophageal reflux disease without esophagitis; I48.91 Unspecified atrial fibrillation; M79.7 Fibromyalgia; B96.1 Klebsiella pneumoniae [K. pneumoniae] as the cause of diseases classified elsewhere; N18.31 Chronic kidney disease, stage 3a; K44.9 Diaphragmatic hernia without obstruction or gangrene; I25.10 Atherosclerotic heart disease of native coronary artery without angina pectoris; G25.81 Restless legs syndrome; Z86.73 Personal history of transient ischemic attack (TIA), and cerebral infarction without residual deficits; K74.60 Unspecified cirrhosis of liver; G47.33 Obstructive sleep apnea (adult) (pediatric); R13.10 Dysphagia, unspecified; K57.90 Diverticulosis of intestine, part unspecified, without perforation or abscess without bleeding; J45.909 Unspecified asthma, uncomplicated; R16.1 Splenomegaly, not elsewhere classified; Z88.8 Allergy status to other drugs, medicaments and biological substances; Z88.7 Allergy status to serum and vaccine; Z88.2 Allergy status to sulfonamides; Z79.899 Other long term (current) drug therapy; Z98.41 Cataract extraction status, right eye; Z98.42 Cataract extraction status, left eye; I25.2 Old myocardial infarction; Z93.3 Colostomy status; Y84.6 Urinary catheterization as the cause of abnormal reaction of the patient, or of later complication, without mention of misadventure at the time of the procedure

== ENCOUNTER 2025-06-19 09:46 | Day surgery (SDC) | payer MEDICARE, BC ==
[~2025-06-19] VITALS: Ht 165.1 cm; Wt 74.8 kg
[~2025-06-19 09:46] MED LIST changes: +DECI1TAB PO
[2025-06-19 11:18] VITALS: TEMP 97.7
[2025-06-19] MEDS ORDERED: LIDOCAINE 2% 100 MG/5 ML SDV (FOR ANES.) As Ordered ONE (11:32)
[2025-06-19 11:45] VITALS: BP 145/65; O2SAT 96
== END 2025-06-19 11:58 | disposition home or self-care (01) ==
LOC: M OPP 09:46
PROVIDERS: ATTEND Internal Medicine Gastroenterology
DX: R13.10 Dysphagia, unspecified (principal); G47.33 Obstructive sleep apnea (adult) (pediatric); I48.91 Unspecified atrial fibrillation; Z95.0 Presence of cardiac pacemaker; Z88.2 Allergy status to sulfonamides; Z88.7 Allergy status to serum and vaccine; Z88.8 Allergy status to other drugs, medicaments and biological substances; Z91.048 Other nonmedicinal substance allergy status; Z79.51 Long term (current) use of inhaled steroids; Z79.891 Long term (current) use of opiate analgesic; Z79.899 Other long term (current) drug therapy; J45.909 Unspecified asthma, uncomplicated; Z86.73 Personal history of transient ischemic attack (TIA), and cerebral infarction without residual deficits

== ENCOUNTER 2025-06-23 15:39 | Inpatient (IN) | payer MEDICARE, BC ==
[~2025-06-23] VITALS: Ht 165.1 cm; Wt 73.5 kg
[2025-06-23 16:45] LABS: BASO # 0.0 10^3/uL (0.0-0.2); BASO % 0.6 % (0.0-1.0); EOS # 0.0 10^3/uL (0.0-0.5); EOS % 0.9 % (0.0-3.0); LYMPH # 0.7 10^3/uL (1.5-5.0); LYMPH % 20.6 % (24.0-44.0); MONO # 0.4 10^3/uL (0.0-0.8); MONO % 11.5 % (2.0-8.0); NEUTROPHILS # 2.3 10^3/uL (1.5-8.5); NEUTROPHILS % 65.8 % (36.0-66.0); PLATELET COUNT, AUTOMATED 540 10^3/uL (150-450)
[2025-06-23 17:14] LABS: ALT/SGPT 25.0 U/L (7.0-40); AST/SGOT 21.0 U/L (<34); CALCIUM LEVEL 9.3 MG/DL (8.3-10.6); CARBON DIOXIDE LEVEL 25.0 MMOL/L (20-31); CHLORIDE LEVEL 101.0 MMOL/L (98-107); CREATININE FOR GFR 1.43 MG/DL (0.55-1.30); GLOMERULAR FILTRATION RATE 36.9 (>32); POTASSIUM SERUM 3.9 MMOL/L (3.5-5.1); SODIUM LEVEL 139.0 MMOL/L (136-145)
[2025-06-23 17:18] LABS: THYROXINE (T4) 7.0 UG/DL (4.5-10.9)
[2025-06-23] MEDS: cefTRIAXone SOD 1 GM in DEXTROSE 5% (D5W) ADV/MINI-BAG 50 ML IV ONE (18:44)
[2025-06-23] MEDS: AZITHROMYCIN INJ 500 MG, VIAL MATE ADAPTER 1 EACH in D5W 250 ML IV ONE (19:09)
[2025-06-23] MEDS: MORPHINE 2 MG/ML 1 ML VIAL IV ONE (19:10)
[2025-06-23] MEDS ORDERED: MAALOX 30 ML SUSP *UDC PO PRN (20:20)
[2025-06-23] MEDS: METOPROLOL SUCC. 50 MG *XL* TAB PO SCH (20:20)
[2025-06-23] MEDS: QUEtiapine FUMARATE 50MG TAB PO SCH (21:00)
[2025-06-23] MEDS: DOCUSATE SODIUM 100 MG CAPSULE PO SCH (21:00)
[2025-06-23] MEDS: traZODone 100 MG TAB PO SCH (21:00)
[2025-06-23] MEDS: NS (Normal Saline) 0.9% 1,000 ML IV SCH (21:07)
[2025-06-23] MEDS: DOXYCYCLINE HYCLATE 100 MG in DEXTROSE 5% (D5W) MINI-BAG PLU 100 ML IV SCH (21:07)
[2025-06-23 23:15] VITALS: BP 128/53; TEMP 97.9; O2SAT 96
[2025-06-23] MEDS ORDERED: MORPHINE 4 MG/ML 1 ML VIAL IV PRN (23:35)
[2025-06-24] VITALS (16 sets, daily range): BP systolic 105–149; BP diastolic 44–99; TEMP 96.6–98.1; O2SAT 92–98
[2025-06-24] MEDS: MORPHINE 4 MG/ML 1 ML VIAL IV PRN ×2 (01:39→12:31)
[2025-06-24] MEDS: IPRATROPIUM 0.5 MG/ALBUTEROL 2.5 MG INH SOL UD 3 ML NEB SCH (02:47)
[2025-06-24] MEDS ORDERED: SENN-193 PO (04:22)
[2025-06-24] MEDS ORDERED: VENTAER INH (04:27)
[2025-06-24] MEDS ORDERED: NALO4SPR20 (04:27)
[2025-06-24] MEDS ORDERED: MULTTAB13 PO (04:29)
[2025-06-24] MEDS ORDERED: HOME MED LIST COMPLETE! XX SCH (04:30)
[2025-06-24 07:13] LABS: PLATELET COUNT, AUTOMATED 358 10^3/uL (150-450)
[2025-06-24 07:42] LABS: ALT/SGPT 21.0 U/L (7.0-40); AST/SGOT 25.0 U/L (<34); CALCIUM LEVEL 8.3 MG/DL (8.3-10.6); CARBON DIOXIDE LEVEL 25.0 MMOL/L (20-31); CHLORIDE LEVEL 100.0 MMOL/L (98-107); CREATININE FOR GFR 1.38 MG/DL (0.55-1.30); GLOMERULAR FILTRATION RATE 38.5 (>32); MAGNESIUM LEVEL 1.6 MG/DL (1.8-2.4); POTASSIUM SERUM 3.7 MMOL/L (3.5-5.1); SODIUM LEVEL 136.0 MMOL/L (136-145)
[2025-06-24] MEDS: LEVOTHYROXINE 50 MCG TABLET (0.05 MG) PO SCH (07:53)
[2025-06-24] MEDS: ONDANSETRON 4MG/2ML VIAL IV PRN (08:06)
[2025-06-24] MEDS: PREGABALIN 100 MG CAP PO SCH (08:06)
[2025-06-24] MEDS: PANTOPRAZOLE 40MG TAB PO SCH (08:09)
[2025-06-24] MEDS: cefTRIAXone SOD 2 GM in DEXTROSE 5% (D5W) ADV/MINI-BAG 50 ML IV SCH (17:48)
[2025-06-24] MEDS: DOXYCYCLINE HYCLATE 100 MG TABLET PO SCH (21:02)
[2025-06-24] MEDS: ACETAMINOPHEN 325 MG TAB PO PRN (21:03)
[2025-06-25 02:00] VITALS: BP 102/40; TEMP 97.7; O2SAT 96
[2025-06-25 06:39] VITALS: BP 140/65; TEMP 97.2; O2SAT 96
[2025-06-25 07:42] LABS: BASO # 0.0 10^3/uL (0.0-0.2); BASO % 0.7 % (0.0-1.0); EOS # 0.1 10^3/uL (0.0-0.5); EOS % 1.8 % (0.0-3.0); LYMPH # 1.1 10^3/uL (1.5-5.0); LYMPH % 40.6 % (24.0-44.0); MONO # 0.3 10^3/uL (0.0-0.8); MONO % 12.5 % (2.0-8.0); NEUTROPHILS # 1.2 10^3/uL (1.5-8.5); NEUTROPHILS % 43.7 % (36.0-66.0); PLATELET COUNT, AUTOMATED 314 10^3/uL (150-450)
[2025-06-25 08:14] LABS: CALCIUM LEVEL 8.4 MG/DL (8.3-10.6); CARBON DIOXIDE LEVEL 26.0 MMOL/L (20-31); CHLORIDE LEVEL 105.0 MMOL/L (98-107); CREATININE FOR GFR 1.27 MG/DL (0.55-1.30); GLOMERULAR FILTRATION RATE 42.5 (>32); MAGNESIUM LEVEL 1.6 MG/DL (1.8-2.4); POTASSIUM SERUM 4.6 MMOL/L (3.5-5.1); SODIUM LEVEL 140.0 MMOL/L (136-145)
[2025-06-25] MEDS ORDERED: ALBUTEROL 90 MCG/ACT 8 GM HFA INHALER INH PRN (08:50)
[2025-06-25] MEDS ORDERED: ISOVUE-370 76% 100 ML VIAL As Ordered ONE (08:58)
[2025-06-25 10:00] VITALS: BP 120/60; TEMP 97.9; O2SAT 95
[2025-06-25] MEDS: oxyCODONE 20MG CR TAB PO SCH (10:22)
[2025-06-25] MEDS: CYCLOBENZAPRINE 5 MG TABLET PO SCH (10:22)
[2025-06-25] MEDS: HEPARIN LOCK FLUSH 100 UNITS/ML 3 ML SYRINGE IV SCH (10:24)
[2025-06-25] MEDS: SODIUM CHLORIDE 0.9% INJ 10 ML SYR IV SCH (10:25)
[2025-06-25] MEDS: MAG SULF 1GM/100ML (MAG RUN) 1 GM in IV 1 EA IV ONE ×2 (10:26→18:59)
[2025-06-25] MEDS: [UNRECOGNIZED DRUG - REMARK] SC SCH (10:26)
[2025-06-25] MEDS: DICLOFENAC EPOLAMINE 1.3% PATCH TOP SCH (12:55)
[2025-06-25 14:00] VITALS: BP 142/64; TEMP 96.8; O2SAT 93
[2025-06-25 18:00] VITALS: BP 150/63; TEMP 97.3; O2SAT 91
[2025-06-25 21:24] VITALS: BP 146/96; TEMP 97.3; O2SAT 93
[2025-06-26] VITALS (7 sets, daily range): BP systolic 129–146; BP diastolic 55–94; TEMP 96.8–98.7; O2SAT 89–97
[2025-06-26 07:13] LABS: BASO # 0.0 10^3/uL (0.0-0.2); BASO % 0.4 % (0.0-1.0); EOS # 0.0 10^3/uL (0.0-0.5); EOS % 1.7 % (0.0-3.0); LYMPH # 0.9 10^3/uL (1.5-5.0); LYMPH % 37.1 % (24.0-44.0); MONO # 0.5 10^3/uL (0.0-0.8); MONO % 19.4 % (2.0-8.0); NEUTROPHILS % 39.7 % (36.0-66.0); PLATELET COUNT, AUTOMATED 306 10^3/uL (150-450)
[2025-06-26 07:58] LABS: NEUTROPHILS # 0.9 10^3/uL (1.5-8.5)
[2025-06-26] MEDS: DEXTROMETHORPHAN 60 MG/10 ML SUSP 90 ML BTL PO SCH (09:00)
[2025-06-26] MEDS: BENZONATATE 100 MG CAPSULE PO SCH (09:53)
[2025-06-26] MEDS: HEPARIN LOCK FLUSH 100 UNITS/ML 3 ML SYRINGE IV PRN (13:25)
[2025-06-26] MEDS: SODIUM CHLORIDE 0.9% INJ 10 ML SYR IV PRN (13:26)
[2025-06-26] MEDS: VANCOMYCIN HCL 1,500 MG, VIAL MATE ADAPTER 1 EACH in NS 500 ML IV ONE (20:21)
[2025-06-26 20:44] LABS: CALCIUM LEVEL 8.8 MG/DL (8.3-10.6); CARBON DIOXIDE LEVEL 27.0 MMOL/L (20-31); CHLORIDE LEVEL 103.0 MMOL/L (98-107); CREATININE FOR GFR 1.19 MG/DL (0.55-1.30); GLOMERULAR FILTRATION RATE 45.9 (>32); POTASSIUM SERUM 5.1 MMOL/L (3.5-5.1); SODIUM LEVEL 138.0 MMOL/L (136-145)
[2025-06-26] MEDS: CEFEPIME HCL 2 GM in DEXTROSE 5% (D5W) ADV/MINI-BAG 50 ML IV SCH (22:46)
[2025-06-27] VITALS (8 sets, daily range): BP systolic 123–158; BP diastolic 56–80; TEMP 97.5–99.4; O2SAT 88–97
[2025-06-27 07:22] LABS: BASO # 0.0 10^3/uL (0.0-0.2); BASO % 0.4 % (0.0-1.0); EOS # 0.0 10^3/uL (0.0-0.5); EOS % 1.6 % (0.0-3.0); LYMPH # 0.7 10^3/uL (1.5-5.0); LYMPH % 26.0 % (24.0-44.0); MONO # 0.4 10^3/uL (0.0-0.8); MONO % 17.3 % (2.0-8.0); NEUTROPHILS # 1.4 10^3/uL (1.5-8.5); NEUTROPHILS % 53.1 % (36.0-66.0); PLATELET COUNT, AUTOMATED 284 10^3/uL (150-450)
[2025-06-27] MEDS ORDERED: VANCOMYCIN HCL 1,000 MG, VIAL MATE ADAPTER 1 EACH in NS 250 ML IV SCH (08:00)
[2025-06-27 11:47] LABS: VANCOMYCIN LEVEL TROUGH 14.0 UG/ML (10.0-20.0)
[2025-06-27] MEDS: VANCOMYCIN HCL 1,000 MG, VIAL MATE ADAPTER 1 EACH in NS 250 ML IV SCH (12:54)
[2025-06-28 06:45] VITALS: O2SAT 96
[2025-06-28 06:49] VITALS: BP 121/60; TEMP 98; O2SAT 91
[2025-06-28 08:00] VITALS: BP 116/60; TEMP 97.1; O2SAT 89
[2025-06-28 08:00] LABS: BASO # 0.0 10^3/uL (0.0-0.2); BASO % 0.5 % (0.0-1.0); EOS # 0.1 10^3/uL (0.0-0.5); EOS % 3.1 % (0.0-3.0); LYMPH # 0.7 10^3/uL (1.5-5.0); LYMPH % 37.0 % (24.0-44.0); MONO # 0.2 10^3/uL (0.0-0.8); MONO % 9.9 % (2.0-8.0); NEUTROPHILS % 48.5 % (36.0-66.0); PLATELET COUNT, AUTOMATED 287 10^3/uL (150-450)
[2025-06-28 08:04] LABS: NEUTROPHILS # 0.9 10^3/uL (1.5-8.5)
[2025-06-28 11:51] VITALS: BP 141/63; TEMP 97.1; O2SAT 91
[2025-06-28 20:20] VITALS: BP 127/59; TEMP 97.5; O2SAT 97
[2025-06-29] VITALS (7 sets, daily range): BP systolic 109–164; BP diastolic 53–71; TEMP 97.2–98.1; O2SAT 92–95
[2025-06-29 07:11] LABS: BASO # 0.0 10^3/uL (0.0-0.2); BASO % 1.0 % (0.0-1.0); EOS # 0.1 10^3/uL (0.0-0.5); EOS % 3.6 % (0.0-3.0); LYMPH # 0.8 10^3/uL (1.5-5.0); LYMPH % 43.5 % (24.0-44.0); MONO # 0.2 10^3/uL (0.0-0.8); MONO % 12.4 % (2.0-8.0); NEUTROPHILS % 37.9 % (36.0-66.0); PLATELET COUNT, AUTOMATED 346 10^3/uL (150-450)
[2025-06-29 07:35] LABS: ALT/SGPT 265 U/L (7.0-40); AST/SGOT 103 U/L (<34); CALCIUM LEVEL 9.1 MG/DL (8.3-10.6); CARBON DIOXIDE LEVEL 24 MMOL/L (20-31); CHLORIDE LEVEL 105 MMOL/L (98-107); CREATININE FOR GFR 1.01 MG/DL (0.55-1.30); GLOMERULAR FILTRATION RATE 55.9 (>32); POTASSIUM SERUM 4.4 MMOL/L (3.5-5.1); SODIUM LEVEL 140 MMOL/L (136-145)
[2025-06-29 07:36] LABS: NEUTROPHILS # 0.7 10^3/uL (1.5-8.5)
[2025-06-29 11:01] LABS: HEPATITIS C VIRUS ABY INDEX 0.04 INDEX (<0.8)
[2025-06-29] MEDS: FLUTICASONE PROPIONATE 0.05% NASAL SPRAY 16 GM NARES PRN (12:09)
[2025-06-29] MEDS: LR 1,000 ML IV SCH (12:09)
[2025-06-30] VITALS (14 sets, daily range): BP systolic 110–162; BP diastolic 56–102; TEMP 94.6–98.2; O2SAT 92–99
[2025-06-30 06:42] LABS: BASO # 0.0 10^3/uL (0.0-0.2); BASO % 0.5 % (0.0-1.0); EOS # 0.0 10^3/uL (0.0-0.5); EOS % 2.2 % (0.0-3.0); LYMPH # 0.9 10^3/uL (1.5-5.0); LYMPH % 46.5 % (24.0-44.0); MONO # 0.2 10^3/uL (0.0-0.8); MONO % 10.3 % (2.0-8.0); NEUTROPHILS % 40.0 % (36.0-66.0); PLATELET COUNT, AUTOMATED 282 10^3/uL (150-450)
[2025-06-30 07:03] LABS: ALT/SGPT 172.0 U/L (7.0-40); AST/SGOT 50.0 U/L (<34); CALCIUM LEVEL 8.5 MG/DL (8.3-10.6); CARBON DIOXIDE LEVEL 28.0 MMOL/L (20-31); CHLORIDE LEVEL 107.0 MMOL/L (98-107); CREATININE FOR GFR 0.98 MG/DL (0.55-1.30); GLOMERULAR FILTRATION RATE 58.0 (>32); POTASSIUM SERUM 4.6 MMOL/L (3.5-5.1); SODIUM LEVEL 143.0 MMOL/L (136-145)
[2025-06-30 07:04] LABS: NEUTROPHILS # 0.7 10^3/uL (1.5-8.5)
[2025-07-01 06:00] VITALS: BP 142/65; TEMP 98.4; O2SAT 99
[2025-07-01 06:42] LABS: PLATELET COUNT, AUTOMATED 317 10^3/uL (150-450)
[2025-07-01 07:03] LABS: ALT/SGPT 169.0 U/L (7.0-40); AST/SGOT 70.0 U/L (<34); CALCIUM LEVEL 8.4 MG/DL (8.3-10.6); CARBON DIOXIDE LEVEL 26.0 MMOL/L (20-31); CHLORIDE LEVEL 107.0 MMOL/L (98-107); CREATININE FOR GFR 0.91 MG/DL (0.55-1.30); GLOMERULAR FILTRATION RATE 63.4 (>32); POTASSIUM SERUM 4.8 MMOL/L (3.5-5.1); SODIUM LEVEL 142.0 MMOL/L (136-145)
[2025-07-01 07:26] LABS: ATYPICAL LYMPH 1 % (0-5); EOSINOPHILS 1 % (0-3); LYMPHOCYTES 43 % (16-44); MONOCYTES 14 % (0-5); NEUTROPHILS 41 % (28-66); PLATELET ESTIMATE NORMAL (NORMAL)
[2025-07-01 10:00] VITALS: BP 148/65; TEMP 97.7; O2SAT 96
[2025-07-01] MEDS: IPRATROPIUM 0.5 MG/ALBUTEROL 2.5 MG INH SOL UD 3 ML NEB SCH (11:30)
[2025-07-01] MEDS: ACETYLCYSTEINE 20% 4 ML VIAL (200 MG/ML) INH SCH (11:30)
[2025-07-01 18:00] VITALS: BP 154/70; TEMP 97.2; O2SAT 95
[2025-07-01 20:00] VITALS: BP 166/72; TEMP 97.3; O2SAT 97
[2025-07-02] VITALS: BP 161/71; TEMP 98.1; O2SAT 93
[2025-07-02 04:00] VITALS: BP 165/74; TEMP 97.7; O2SAT 95
[2025-07-02 06:47] LABS: BASO # 0.0 10^3/uL (0.0-0.2); BASO % 0.6 % (0.0-1.0); EOS # 0.0 10^3/uL (0.0-0.5); EOS % 0.0 % (0.0-3.0); LYMPH # 0.4 10^3/uL (1.5-5.0); LYMPH % 24.1 % (24.0-44.0); MONO # 0.1 10^3/uL (0.0-0.8); MONO % 7.0 % (2.0-8.0); NEUTROPHILS # 1.1 10^3/uL (1.5-8.5); NEUTROPHILS % 67.0 % (36.0-66.0); PLATELET COUNT, AUTOMATED 335 10^3/uL (150-450)
[2025-07-02 07:21] LABS: ALT/SGPT 132.0 U/L (7.0-40); AST/SGOT 37.0 U/L (<34); CALCIUM LEVEL 8.5 MG/DL (8.3-10.6); CARBON DIOXIDE LEVEL 26.0 MMOL/L (20-31); CHLORIDE LEVEL 103.0 MMOL/L (98-107); CREATININE FOR GFR 0.92 MG/DL (0.55-1.30); GLOMERULAR FILTRATION RATE 62.6 (>32); POTASSIUM SERUM 5.0 MMOL/L (3.5-5.1); SODIUM LEVEL 139.0 MMOL/L (136-145)
[2025-07-02 10:00] VITALS: BP 149/66; TEMP 98; O2SAT 94
[2025-07-02 14:00] VITALS: BP 176/77; TEMP 98.8; O2SAT 95
[2025-07-02 15:13] LABS: KETONE, URINE AUTO RFX NEGATIVE (NEGATIVE); MUCUS, URINE RFX SMALL (NEGATIVE); NITRITE, URINE AUTO RFX NEGATIVE (NEGATIVE); RBC, URINE AUTO RFX 13 /HPF (0-3); SQUAM EPITHELIAL CELL UR AURFX 1 /HPF (0-6); YEAST LIKE CELL URINE AUTO RFX SMALL
[2025-07-02 15:14] LABS: LEUKOCYTE ESTERASE UR AUTO RFX 3+ (NEGATIVE); WBC, URINE AUTO RFX 107 /HPF (0-3)
[2025-07-02 18:00] VITALS: BP 154/67; TEMP 96.8; O2SAT 92
[2025-07-02 21:11] VITALS: BP 167/79; TEMP 98.7; O2SAT 97
[2025-07-03 00:21] VITALS: BP 154/67; TEMP 98.2; O2SAT 92
[2025-07-03 06:17] VITALS: BP 180/76; TEMP 97.9; O2SAT 96
[2025-07-03 06:24] VITALS: BP 175/70
[2025-07-03 08:06] LABS: BASO # 0.0 10^3/uL (0.0-0.2); BASO % 0.9 % (0.0-1.0); EOS # 0.0 10^3/uL (0.0-0.5); EOS % 0.5 % (0.0-3.0); LYMPH # 1.1 10^3/uL (1.5-5.0); LYMPH % 51.2 % (24.0-44.0); MONO # 0.2 10^3/uL (0.0-0.8); MONO % 9.8 % (2.0-8.0); NEUTROPHILS % 36.7 % (36.0-66.0); PLATELET COUNT, AUTOMATED 293 10^3/uL (150-450)
[2025-07-03 08:17] LABS: NEUTROPHILS # 0.8 10^3/uL (1.5-8.5)
[2025-07-03 08:24] LABS: ALT/SGPT 98.0 U/L (7.0-40); AST/SGOT 29.0 U/L (<34); CALCIUM LEVEL 8.4 MG/DL (8.3-10.6); CARBON DIOXIDE LEVEL 27.0 MMOL/L (20-31); CHLORIDE LEVEL 103.0 MMOL/L (98-107); CREATININE FOR GFR 0.87 MG/DL (0.55-1.30); GLOMERULAR FILTRATION RATE 66.9 (>32); POTASSIUM SERUM 4.1 MMOL/L (3.5-5.1); SODIUM LEVEL 140.0 MMOL/L (136-145)
[2025-07-03 08:48] VITALS: BP 175/70
[2025-07-03] MEDS: amLODIPine 10 MG TAB PO ONE (08:48)
[2025-07-03 10:54] VITALS: BP 140/62; TEMP 97.6; O2SAT 93
[2025-07-03] MEDS ORDERED: METO1TAB7 PO (11:59)
[2025-07-03] MEDS ORDERED: AMLO-751 PO (11:59)
[2025-07-03] MEDS ORDERED: LOSARTAN 25 MG TAB PO ONE (12:15)
[2025-07-03 14:15] VITALS: BP 99/72; TEMP 97; O2SAT 93
== END 2025-07-03 14:50 | disposition home or self-care (01) | DRG 194 ==
LOC: M ED 15:39 → M ED INP 20:18 → M MS5PR 23:10
PROVIDERS: ADMIT Internal Medicine; ATTEND General Practice
PROC: 30233N1 Transfusion of Nonautologous Red Blood Cells into Peripheral Vein, Percutaneous Approach (ICD-10-PCS; principal; 2025-06-24)
DX: J18.9 Pneumonia, unspecified organism (principal); I50.32 Chronic diastolic (congestive) heart failure; D61.818 Other pancytopenia; I13.0 Hypertensive heart and chronic kidney disease with heart failure and stage 1 through stage 4 chronic kidney disease, or unspecified chronic kidney disease; D84.9 Immunodeficiency, unspecified; N17.9 Acute kidney failure, unspecified; F11.20 Opioid dependence, uncomplicated; D46.9 Myelodysplastic syndrome, unspecified; E03.9 Hypothyroidism, unspecified; G40.909 Epilepsy, unspecified, not intractable, without status epilepticus; E11.22 Type 2 diabetes mellitus with diabetic chronic kidney disease; E78.5 Hyperlipidemia, unspecified; K21.9 Gastro-esophageal reflux disease without esophagitis; M79.7 Fibromyalgia; E83.42 Hypomagnesemia; J45.909 Unspecified asthma, uncomplicated; G47.00 Insomnia, unspecified; Z86.73 Personal history of transient ischemic attack (TIA), and cerebral infarction without residual deficits; I25.10 Atherosclerotic heart disease of native coronary artery without angina pectoris; M54.59 Other low back pain; N18.31 Chronic kidney disease, stage 3a; G25.81 Restless legs syndrome; Z95.0 Presence of cardiac pacemaker; N31.9 Neuromuscular dysfunction of bladder, unspecified; Z98.41 Cataract extraction status, right eye; Z98.42 Cataract extraction status, left eye; Z88.7 Allergy status to serum and vaccine; Z88.2 Allergy status to sulfonamides; Z88.8 Allergy status to other drugs, medicaments and biological substances; Z91.048 Other nonmedicinal substance allergy status; Z79.899 Other long term (current) drug therapy; Z79.890 Hormone replacement therapy

== ENCOUNTER 2025-07-23 13:23 | Inpatient (IN) | payer MEDICARE, BC ==
[~2025-07-23] VITALS: Ht 165.1 cm; Wt 78.1 kg
[~2025-07-23 13:23] MED LIST changes: +AMLO-751 PO; -BACTDSTA PO; +METO1TAB7 PO; +MULTTAB13 PO; +NALO4SPR20; -OXYC20TA64 PO; +OXYC20TA66 PO; +SENN-193 PO; +SULF-8 PO; +VENTAER INH
[2025-07-23 14:13] LABS: PLATELET COUNT, AUTOMATED 333 10^3/uL (150-450)
[2025-07-23 14:57] LABS: CALCIUM LEVEL 8.4 MG/DL (8.3-10.6); CARBON DIOXIDE LEVEL 29.0 MMOL/L (20-31); CHLORIDE LEVEL 101.0 MMOL/L (98-107); CREATININE FOR GFR 1.41 MG/DL (0.55-1.30); GLOMERULAR FILTRATION RATE 37.5 (>32); MAGNESIUM LEVEL 1.4 MG/DL (1.8-2.4); POTASSIUM SERUM 3.6 MMOL/L (3.5-5.1); SODIUM LEVEL 142.0 MMOL/L (136-145)
[2025-07-23 14:59] LABS: FREE T4 0.97 NG/DL (0.89-1.76)
[2025-07-23] MEDS ORDERED: SODIUM CHLORIDE 0.9% INJ 10 ML SYR IV PRN (15:50)
[2025-07-23] MEDS ORDERED: HEPARIN LOCK FLUSH 100 UNITS/ML 3 ML SYRINGE IV PRN (15:50)
[2025-07-23] MEDS: MAG SULF 1GM/100ML (MAG RUN) 1 GM in IV 1 EA IV ONE (16:48)
[2025-07-23] MEDS: NS (Normal Saline) 0.9% 1,000 ML IV ONE (16:48)
[2025-07-23 16:51] LABS: ALT/SGPT 19.0 U/L (7.0-40); AST/SGOT 23.0 U/L (<34)
[2025-07-23 17:19] LABS: KETONE, URINE AUTO RFX NEGATIVE (NEGATIVE); MUCUS, URINE RFX SMALL (NEGATIVE); NITRITE, URINE AUTO RFX NEGATIVE (NEGATIVE); RBC, URINE AUTO RFX 20 /HPF (0-3); SQUAM EPITHELIAL CELL UR AURFX 3 /HPF (0-6); TRANSITIONAL EPITHELIAL AU RFX 2 /HPF
[2025-07-23] MEDS: HYDROMORPHONE HCL 0.5 MG/0.5 ML SYRINGE IV PRN (17:40)
[2025-07-23] MEDS ORDERED: ISOVUE-370 76% 100 ML VIAL As Ordered ONE (17:41)
[2025-07-23 18:12] LABS: LEUKOCYTE ESTERASE UR AUTO RFX 2+ (NEGATIVE); WBC, URINE AUTO RFX TNTC /HPF (0-3)
[2025-07-23] MEDS: MEROPENEM 1 GM in IV 1 EA IV ONE (19:19)
[2025-07-23] MEDS: ACETAMINOPHEN *IV* 1,000 MG in IV 1 EA IV ONE (19:19)
[2025-07-23] MEDS ORDERED: GLUCOSE 4 GM CHEW PO PRN (20:25)
[2025-07-23] MEDS ORDERED: DEXTROSE 50% 50 ML SYRINGE IV PRN (20:25)
[2025-07-23] MEDS ORDERED: GLUCAGON INJ 1 MG VIAL SC PRN (20:25)
[2025-07-23] MEDS ORDERED: HOME MED LIST COMPLETE! XX SCH (20:50)
[2025-07-23] MEDS: INSULIN LISPRO (NovoLOG) PER UNIT SC SCH (21:00)
[2025-07-23 21:52] LABS: INR 1.06
[2025-07-23] MEDS ORDERED: SENNA 8.6 MG TAB PO PRN (22:35)
[2025-07-23] MEDS ORDERED: FLUTICASONE PROPIONATE 0.05% NASAL SPRAY 16 GM NARES PRN (22:35)
[2025-07-23] MEDS ORDERED: ALBUTEROL 90 MCG/ACT 8 GM HFA INHALER INH PRN (22:35)
[2025-07-23] MEDS ORDERED: PILL CUTTER 1 EACH XX PRN (23:35)
[2025-07-24] VITALS (11 sets, daily range): BP systolic 123–170; BP diastolic 62–71; TEMP 97.6–98.8; O2SAT 93–98
[2025-07-24] MEDS: ACETAMINOPHEN 650 MG ER TAB PO SCH (00:05)
[2025-07-24] MEDS: oxyCODONE 20MG CR TAB PO SCH (00:06)
[2025-07-24] MEDS: PANTOPRAZOLE 40MG TAB PO SCH (00:06)
[2025-07-24] MEDS: PREGABALIN 100 MG CAP PO SCH (00:06)
[2025-07-24] MEDS: traZODone 100 MG TAB PO SCH (00:06)
[2025-07-24] MEDS: MEROPENEM 1 GM in IV 1 EA IV SCH (05:15)
[2025-07-24] MEDS: LEVOTHYROXINE 50 MCG TABLET (0.05 MG) PO SCH (05:15)
[2025-07-24] MEDS: amLODIPine 10 MG TAB PO SCH (09:07)
[2025-07-24] MEDS: CYANOCOBALAMIN 500 MCG TAB PO SCH (09:08)
[2025-07-24] MEDS: ASCORBIC ACID 500 MG TAB PO SCH (09:08)
[2025-07-24] MEDS: INSULIN LISPRO (NovoLOG) PER UNIT SC SCH (09:10)
[2025-07-24] MEDS: SODIUM CHLORIDE 0.9% INJ 10 ML SYR IV SCH (09:16)
[2025-07-24] MEDS: HEPARIN SOD 5000 UNITS/ML 1 ML VIAL/SYRINGE SC SCH (09:27)
[2025-07-24] MEDS: MAGNESIUM OXIDE 400 MG TAB PO ONE (09:58)
[2025-07-24] MEDS: HEPARIN LOCK FLUSH 100 UNITS/ML 3 ML SYRINGE IV SCH (09:59)
[2025-07-24 10:16] LABS: BASO # 0.0 10^3/uL (0.0-0.2); BASO % 0.5 % (0.0-1.0); EOS # 0.0 10^3/uL (0.0-0.5); EOS % 1.0 % (0.0-3.0); LYMPH # 1.1 10^3/uL (1.5-5.0); LYMPH % 55.6 % (24.0-44.0); MONO # 0.2 10^3/uL (0.0-0.8); MONO % 10.6 % (2.0-8.0); NEUTROPHILS % 31.8 % (36.0-66.0); PLATELET COUNT, AUTOMATED 283 10^3/uL (150-450)
[2025-07-24 10:19] LABS: NEUTROPHILS # 0.6 10^3/uL (1.5-8.5)
[2025-07-24] MEDS: MAG SULF 1GM/100ML (MAG RUN) 1 GM in IV 1 EA IV SCH (10:20)
[2025-07-24] MEDS: CYCLOBENZAPRINE 5 MG TABLET PO SCH (10:20)
[2025-07-24] MEDS: NS (Normal Saline) 0.9% 1,000 ML IV ONE (10:20)
[2025-07-24] MEDS: CALCITRIOL 0.25 MCG CAP (S0169) PO SCH (10:20)
[2025-07-24 10:45] LABS: CALCIUM LEVEL 8.3 MG/DL (8.3-10.6); CARBON DIOXIDE LEVEL 27.0 MMOL/L (20-31); CHLORIDE LEVEL 106.0 MMOL/L (98-107); CREATININE FOR GFR 1.24 MG/DL (0.55-1.30); GLOMERULAR FILTRATION RATE 43.7 (>32); MAGNESIUM LEVEL 1.8 MG/DL (1.8-2.4); POTASSIUM SERUM 3.8 MMOL/L (3.5-5.1); SODIUM LEVEL 143.0 MMOL/L (136-145)
[2025-07-24] MEDS: [UNRECOGNIZED DRUG - REMARK] SC SCH (11:26)
[2025-07-24] MEDS: ANALGESIC BALM CRM 3 OZ TOP SCH (14:00)
[2025-07-24] MEDS: MORPHINE 2 MG/ML 1 ML VIAL IV PRN (19:40)
[2025-07-24] MEDS: METOPROLOL SUCC *XL* 12.5 MG PER 1/2 TAB PO SCH (22:34)
[2025-07-24] MEDS: LIDOCAINE 5% PATCH TOP SCH (22:36)
[2025-07-25] VITALS (7 sets, daily range): BP systolic 115–170; BP diastolic 57–76; TEMP 97.6–98.3; O2SAT 91–99
[2025-07-25 04:11] LABS: BASO # 0.0 10^3/uL (0.0-0.2); BASO % 0.5 % (0.0-1.0); EOS # 0.0 10^3/uL (0.0-0.5); EOS % 1.9 % (0.0-3.0); LYMPH # 1.1 10^3/uL (1.5-5.0); LYMPH % 53.4 % (24.0-44.0); MONO # 0.2 10^3/uL (0.0-0.8); MONO % 9.7 % (2.0-8.0); NEUTROPHILS % 34.5 % (36.0-66.0); PLATELET COUNT, AUTOMATED 290 10^3/uL (150-450)
[2025-07-25 04:21] LABS: NEUTROPHILS # 0.7 10^3/uL (1.5-8.5)
[2025-07-25 04:33] LABS: CALCIUM LEVEL 7.7 MG/DL (8.3-10.6); CARBON DIOXIDE LEVEL 26.0 MMOL/L (20-31); CHLORIDE LEVEL 110.0 MMOL/L (98-107); CREATININE FOR GFR 1.12 MG/DL (0.55-1.30); GLOMERULAR FILTRATION RATE 49.4 (>32); MAGNESIUM LEVEL 2.2 MG/DL (1.8-2.4); POTASSIUM SERUM 4.1 MMOL/L (3.5-5.1); SODIUM LEVEL 145.0 MMOL/L (136-145)
[2025-07-25] MEDS: LIDOCAINE 1% MDV 20 ML VIAL SC SCH (16:35)
[2025-07-25] MEDS: NS (Normal Saline) 0.9% 1,000 ML IV SCH (16:35)
[2025-07-25] MEDS: ISOVUE-300 61% 100 ML VIAL IV SCH (16:35)
[2025-07-25] MEDS: MIDAZOLAM INJ 2 MG/2 ML VIAL IV PRN (17:00)
[2025-07-25] MEDS: SODIUM CHLORIDE 0.9% 1000 ML XX SCH (17:02)
[2025-07-26 05:07] VITALS: BP 127/58; TEMP 97.8; O2SAT 91
[2025-07-26 09:28] LABS: PLATELET COUNT, AUTOMATED 303 10^3/uL (150-450)
[2025-07-26 09:53] LABS: ATYPICAL LYMPH 1 % (0-5); EOSINOPHILS 5 % (0-3); LYMPHOCYTES 62 % (16-44); MONOCYTES 9 % (0-5); NEUTROPHILS 22 % (28-66)
[2025-07-26 09:57] LABS: CALCIUM LEVEL 8.3 MG/DL (8.3-10.6); CARBON DIOXIDE LEVEL 27.0 MMOL/L (20-31); CHLORIDE LEVEL 109.0 MMOL/L (98-107); CREATININE FOR GFR 1.0 MG/DL (0.55-1.30); GLOMERULAR FILTRATION RATE 56.6 (>32); MAGNESIUM LEVEL 2.0 MG/DL (1.8-2.4); POTASSIUM SERUM 4.7 MMOL/L (3.5-5.1); SODIUM LEVEL 142.0 MMOL/L (136-145)
[2025-07-26 10:01] LABS: PLATELET ESTIMATE NORMAL (NORMAL)
[2025-07-26 11:09] VITALS: BP 141/65; TEMP 98; O2SAT 92
[2025-07-26 11:42] VITALS: BP 141/65; TEMP 98; O2SAT 92
[2025-07-26] MEDS: ERTAPENEM SODIUM 1 GM in NS MINI-BAG PLUS 50 ML IV SCH (15:57)
[2025-07-26] MEDS: LINEZOLID 600 MG TABLET PO ONE (16:09)
[2025-07-26 21:21] VITALS: BP 154/65; TEMP 98.7; O2SAT 97
[2025-07-26] MEDS: LINEZOLID 600 MG TABLET PO SCH (21:35)
[2025-07-27 05:23] VITALS: BP 136/65; TEMP 97.5; O2SAT 93
[2025-07-27 07:06] LABS: PLATELET COUNT, AUTOMATED 283 10^3/uL (150-450)
[2025-07-27 07:34] LABS: CALCIUM LEVEL 8.7 MG/DL (8.3-10.6); CARBON DIOXIDE LEVEL 28.0 MMOL/L (20-31); CHLORIDE LEVEL 105.0 MMOL/L (98-107); CREATININE FOR GFR 0.97 MG/DL (0.55-1.30); GLOMERULAR FILTRATION RATE 58.7 (>32); MAGNESIUM LEVEL 1.9 MG/DL (1.8-2.4); POTASSIUM SERUM 4.4 MMOL/L (3.5-5.1); SODIUM LEVEL 141.0 MMOL/L (136-145)
[2025-07-27 08:06] LABS: ATYPICAL LYMPH 15 % (0-5); BASOPHILS 1 % (0-1); EOSINOPHILS 1 % (0-3); LYMPHOCYTES 48 % (16-44); MONOCYTES 2 % (0-5); NEUTROPHILS 28 % (28-66); PLASMA CELL 1 % (0-0)
[2025-07-27 08:07] LABS: PLATELET ESTIMATE NORMAL (NORMAL)
[2025-07-27 12:06] VITALS: BP 138/62; TEMP 98.4; O2SAT 97
[2025-07-27 20:38] VITALS: BP 120/68
[2025-07-28 06:09] VITALS: BP 136/62; TEMP 97.9; O2SAT 95
[2025-07-28 06:21] LABS: BASO # 0.0 10^3/uL (0.0-0.2); BASO % 0.9 % (0.0-1.0); EOS # 0.0 10^3/uL (0.0-0.5); EOS % 1.9 % (0.0-3.0); LYMPH # 1.4 10^3/uL (1.5-5.0); LYMPH % 66.8 % (24.0-44.0); MONO # 0.2 10^3/uL (0.0-0.8); MONO % 7.0 % (2.0-8.0); NEUTROPHILS % 22.9 % (36.0-66.0); PLATELET COUNT, AUTOMATED 289 10^3/uL (150-450)
[2025-07-28 06:27] LABS: NEUTROPHILS # 0.5 10^3/uL (1.5-8.5)
[2025-07-28 06:47] LABS: CALCIUM LEVEL 8.5 MG/DL (8.3-10.6); CARBON DIOXIDE LEVEL 28.0 MMOL/L (20-31); CHLORIDE LEVEL 106.0 MMOL/L (98-107); CREATININE FOR GFR 1.05 MG/DL (0.55-1.30); GLOMERULAR FILTRATION RATE 53.4 (>32); MAGNESIUM LEVEL 1.7 MG/DL (1.8-2.4); POTASSIUM SERUM 4.3 MMOL/L (3.5-5.1); SODIUM LEVEL 141.0 MMOL/L (136-145)
[2025-07-28] MEDS: MAG SULF 1GM/100ML (MAG RUN) 1 GM in IV 1 EA IV ONE (07:38)
[2025-07-28 11:54] VITALS: BP 129/62; TEMP 98.5; O2SAT 93
[2025-07-28 22:03] VITALS: BP 130/52; TEMP 97.7; O2SAT 95
[2025-07-29 03:18] VITALS: BP 108/52; TEMP 97.9; O2SAT 90
[2025-07-29 06:27] LABS: BASO # 0.0 10^3/uL (0.0-0.2); BASO % 0.5 % (0.0-1.0); EOS # 0.0 10^3/uL (0.0-0.5); EOS % 1.1 % (0.0-3.0); LYMPH # 1.3 10^3/uL (1.5-5.0); LYMPH % 70.9 % (24.0-44.0); MONO # 0.1 10^3/uL (0.0-0.8); MONO % 7.7 % (2.0-8.0); NEUTROPHILS % 19.3 % (36.0-66.0); PLATELET COUNT, AUTOMATED 261 10^3/uL (150-450)
[2025-07-29 06:28] LABS: NEUTROPHILS # 0.4 10^3/uL (1.5-8.5)
[2025-07-29 06:52] LABS: CALCIUM LEVEL 8.3 MG/DL (8.3-10.6); CARBON DIOXIDE LEVEL 28.0 MMOL/L (20-31); CHLORIDE LEVEL 108.0 MMOL/L (98-107); CREATININE FOR GFR 1.12 MG/DL (0.55-1.30); GLOMERULAR FILTRATION RATE 49.4 (>32); MAGNESIUM LEVEL 1.9 MG/DL (1.8-2.4); POTASSIUM SERUM 4.4 MMOL/L (3.5-5.1); SODIUM LEVEL 142.0 MMOL/L (136-145)
[2025-07-29 09:36] VITALS: BP 138/64
[2025-07-29] MEDS ORDERED: LINE1TAB6 PO (11:56)
[2025-07-29 12:11] VITALS: BP 112/55; TEMP 98.5; O2SAT 91
== END 2025-07-29 15:26 | disposition home health service (06) | DRG 982 ==
LOC: M ED 13:23 → M ED INP 13:25 → UNDOADMOB 20:24 → M ED INP 20:24 → M MSPAV 07-24 14:30 → OBSVTOIN 07-25 13:53
PROVIDERS: ADMIT Student in an Organized Health Care Education/Training Program; ATTEND Internal Medicine
PROC: 30233N1 Transfusion of Nonautologous Red Blood Cells into Peripheral Vein, Percutaneous Approach (ICD-10-PCS; 2025-07-24)
PROC: 0T9330Z Drainage of Right Kidney Pelvis with Drainage Device, Percutaneous Approach (ICD-10-PCS; 2025-07-25)
PROC: 0TP530Z Removal of Drainage Device from Kidney, Percutaneous Approach (ICD-10-PCS; principal; 2025-07-25 15:43)
DX: D46.9 Myelodysplastic syndrome, unspecified (principal); N17.9 Acute kidney failure, unspecified; I50.32 Chronic diastolic (congestive) heart failure; N39.0 Urinary tract infection, site not specified; I13.0 Hypertensive heart and chronic kidney disease with heart failure and stage 1 through stage 4 chronic kidney disease, or unspecified chronic kidney disease; E03.9 Hypothyroidism, unspecified; B96.1 Klebsiella pneumoniae [K. pneumoniae] as the cause of diseases classified elsewhere; K21.9 Gastro-esophageal reflux disease without esophagitis; G40.909 Epilepsy, unspecified, not intractable, without status epilepticus; I48.91 Unspecified atrial fibrillation; E83.42 Hypomagnesemia; D64.9 Anemia, unspecified; E78.5 Hyperlipidemia, unspecified; E11.22 Type 2 diabetes mellitus with diabetic chronic kidney disease; N18.30 Chronic kidney disease, stage 3 unspecified; M79.7 Fibromyalgia; N13.9 Obstructive and reflux uropathy, unspecified; Z95.0 Presence of cardiac pacemaker; I95.1 Orthostatic hypotension; I25.10 Atherosclerotic heart disease of native coronary artery without angina pectoris; Z86.73 Personal history of transient ischemic attack (TIA), and cerebral infarction without residual deficits; Z88.2 Allergy status to sulfonamides; Z88.7 Allergy status to serum and vaccine; Z88.8 Allergy status to other drugs, medicaments and biological substances; Z79.899 Other long term (current) drug therapy; G47.33 Obstructive sleep apnea (adult) (pediatric); G89.29 Other chronic pain; K59.00 Constipation, unspecified

== ENCOUNTER 2025-08-13 13:23 | Emergency (ER) | payer MEDICARE, BC ==
[~2025-08-13] VITALS: Ht 160 cm; Wt 78.0 kg
[~2025-08-13 13:23] MED LIST changes: +LINE1TAB6 PO; +LISI20TA33; +VITA500T9
[2025-08-13] MEDS: ACETAMINOPHEN 325 MG TAB PO ONE (19:05)
[2025-08-13] MEDS: PREGABALIN 100 MG CAP PO ONE (19:05)
[2025-08-13 19:15] VITALS: BP 144/61; TEMP 97.2; O2SAT 99
[2025-08-13 19:30] VITALS: BP 149/67; TEMP 96.8; O2SAT 99
[2025-08-13 19:35] VITALS: BP 145/67; TEMP 96.3; O2SAT 100
[2025-08-13 20:55] VITALS: BP 145/70; TEMP 98.3; O2SAT 100
[2025-08-13] MEDS: HEPARIN LOCK FLUSH 100 UNITS/ML 3 ML SYRINGE IV PRN (20:58)
[2025-08-13 21:00] VITALS: BP 152/66; TEMP 98.3
[2025-08-13 21:10] VITALS: O2SAT 100
[2025-08-13] MEDS: MORPHINE 10 MG/ML 1 ML VIAL IM ONE (21:10)
[2025-09-18] MEDS ORDERED: MUCI600T31 PO (13:45)
[2025-09-18] MEDS ORDERED: PRED20TA PO (13:45)
== END 2025-08-13 21:15 | disposition home or self-care (01) ==
LOC: M ED 16:00
DX: D64.9 Anemia, unspecified (principal); E11.9 Type 2 diabetes mellitus without complications; G47.33 Obstructive sleep apnea (adult) (pediatric); M54.50 Low back pain, unspecified; Z95.0 Presence of cardiac pacemaker; N18.30 Chronic kidney disease, stage 3 unspecified; J45.909 Unspecified asthma, uncomplicated; I10 Essential (primary) hypertension; Z88.7 Allergy status to serum and vaccine; Z88.8 Allergy status to other drugs, medicaments and biological substances; Z91.09 Other allergy status, other than to drugs and biological substances; Z86.73 Personal history of transient ischemic attack (TIA), and cerebral infarction without residual deficits; Z79.1 Long term (current) use of non-steroidal anti-inflammatories (NSAID); Z79.899 Other long term (current) drug therapy; Z79.52 Long term (current) use of systemic steroids
CPT/HCPCS: 36415; 36430; 85025; 86850; 86900; 86901; 86920; 96372; 96374; 99285; J0881; J1642; P9016

== ENCOUNTER → 2025-08-19 | Outpatient (CLI) | payer MEDICARE, BC ==
[~2025-08-19] MED LIST changes: +MIDAZOLAM INJ 2 MG/2 ML VIAL IV PRN
[2025-08-19 10:15] VITALS: TEMP 98.5
[2025-08-19] MEDS: CIPROFLOXACIN 400 MG in IV 1 EA IV ONE (11:03)
[2025-08-19] MEDS: NS (Normal Saline) 0.9% 1,000 ML IV SCH (11:03)
[2025-08-19] MEDS: SODIUM CHLORIDE 0.9% 1000 ML XX SCH (11:04)
[2025-08-19] MEDS: MIDAZOLAM INJ 2 MG/2 ML VIAL IV PRN (13:07)
[2025-08-19] MEDS: LIDOCAINE 1% MDV 20 ML VIAL SC SCH ×2 (13:13→14:04)
[2025-08-19] MEDS: ISOVUE-300 61% 100 ML VIAL IV SCH ×2 (13:19→14:04)
[2025-08-19] MEDS: HEPARIN LOCK FLUSH 100 UNITS/ML 3 ML SYRINGE IV ONE (13:55)
[2025-08-19 14:00] VITALS: BP 137/57; O2SAT 95
== END ==
LOC: M IRPRO 09:29
PROVIDERS: ATTEND Radiology Diagnostic Radiology
DX: N13.9 Obstructive and reflux uropathy, unspecified (principal)
CPT/HCPCS: 50432; 99152; 99153; C1729; C1887; J0744; J1642; J2250; J3010; Q9967